=== PATIENT | male | born 1955 | race Caucasian/White ===

== ENCOUNTER 2022-03-14 09:00 | Outpatient (RCR) | payer MEDICARE, BC, SELFPAY | END 2022-03-15 23:59 | disposition home or self-care (01) | LOC: CR 09:00 | PROVIDERS: PCP Family Medicine; Visit Provider Internal Medicine Cardiovascular Disease | DX: Z51.89 Encounter for other specified aftercare (principal); I25.10 Atherosclerotic heart disease of native coronary artery without angina pectoris; Z95.1 Presence of aortocoronary bypass graft | CPT/HCPCS: S9472 ==

== ENCOUNTER 2022-04-11 09:00 | Outpatient (RCR) | payer MEDICARE, BC, SELFPAY | END 2022-04-15 23:59 | disposition home or self-care (01) | LOC: CR 09:00 | PROVIDERS: PCP Family Medicine; Visit Provider Internal Medicine Cardiovascular Disease | DX: Z51.89 Encounter for other specified aftercare (principal); I25.10 Atherosclerotic heart disease of native coronary artery without angina pectoris; Z95.1 Presence of aortocoronary bypass graft | CPT/HCPCS: S9472 ==

== ENCOUNTER 2022-05-14 09:00 | Outpatient (RCR) | payer MEDICARE, BC, SELFPAY | END 2022-05-15 23:59 | disposition home or self-care (01) | LOC: CR 09:00 | PROVIDERS: PCP Family Medicine; Visit Provider Internal Medicine Cardiovascular Disease | DX: Z51.89 Encounter for other specified aftercare (principal); I25.10 Atherosclerotic heart disease of native coronary artery without angina pectoris; Z95.1 Presence of aortocoronary bypass graft | CPT/HCPCS: S9472 ==

== ENCOUNTER 2022-06-09 09:00 | Outpatient (RCR) | payer MEDICARE, BC, SELFPAY | END 2022-06-15 23:59 | disposition home or self-care (01) | LOC: CR 09:00 | PROVIDERS: PCP Family Medicine; Visit Provider Internal Medicine Cardiovascular Disease | DX: Z51.89 Encounter for other specified aftercare (principal); I25.10 Atherosclerotic heart disease of native coronary artery without angina pectoris; Z95.1 Presence of aortocoronary bypass graft | CPT/HCPCS: S9472 ==

== ENCOUNTER 2022-07-15 09:00 | Outpatient (RCR) | payer SELFPAY ==
[2022-06-17 09:26] VITALS: BP 168/92; PULSE 96
[2022-06-19 09:21] VITALS: BP 144/87; PULSE 93
[2022-06-24 09:28] VITALS: BP 147/81; PULSE 85
[2022-06-26 09:04] VITALS: BP 148/87; PULSE 85
[2022-07-01 09:01] VITALS: BP 148/86; PULSE 85
[2022-07-03 09:02] VITALS: BP 157/86; PULSE 82
[2022-07-08 08:53] VITALS: BP 156/85; PULSE 83
[2022-07-10 09:05] VITALS: BP 144/81; PULSE 79
[2022-07-15 09:01] VITALS: BP 134/83; PULSE 97
== END 2022-07-16 23:59 | disposition home or self-care (01) ==
LOC: CR 09:00
PROVIDERS: PCP Family Medicine; Visit Provider Internal Medicine Cardiovascular Disease
DX: R69 Illness, unspecified (principal)

== ENCOUNTER 2022-08-14 08:57 | Outpatient (RCR) | payer SELFPAY ==
[2022-07-17 00:01] VITALS: BP 134/83; PULSE 97
[2022-07-17 09:00] VITALS: BP 133/88; PULSE 100
[2022-07-22 08:46] VITALS: BP 151/87; PULSE 85
[2022-07-24 08:49] VITALS: BP 148/88; PULSE 94
[2022-07-29 08:42] VITALS: BP 146/85; PULSE 87
[2022-07-31 08:47] VITALS: BP 149/80; PULSE 82
[2022-08-05 09:00] VITALS: BP 155/87; PULSE 78
--- OUTSIDE RECORDS SUMMARY | 2022-08-05 09:02 | XMS_ITS | Encounter Summary ---
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, Danny Antonio MD [facility] Drill Rig Operator Rehab [facility] [place] [address] [place] [address] Fax: Referral ID Status Reason Start Date Expiration Visits Visits Date Requested Authorized [id number] Authorized Consult, 01/31/2022 01/31/2023 100 100 Test & Treat Encounter Details Date Type Department Care Team Description 05/06/2022 Office Visit Speech Therapy at [facility] Voc al cord paralysis [facility] POWER EQUIPMENT TECHNOLOGY INSTRUCTOR [facility] [address] [place], [place] PHYSICAL MEDICINE & [id number] REHABILITAT [phone] [place] [address] Social History Tobacco Use Types Packs/Day Years Used Date Former Smoker Cigarettes Smokeless Tobacco: Never Used Comments: quit at age 17 Alcohol Use Standard Drinks/Week Comments Yes 2 (1 standard drink = 0.6 oz pure alcoho l) beer on weekends Alcohol Habits Answer Date Recorded How often do you have a drink containing alcohol? Not asked How many drinks containing alcohol do you have on a Not aske d typical day when you are drinking? How often do you have six or more drinks on one Not asked occasion? Comment: beer on weekends 03/09/2017 Sex Assigned at Date Recorded Not on file documented as of this encounter Progress Notes Cary Lam, POWER EQUIPMENT TECHNOLOGY INSTRUCTOR - 05/06/2022 11:00 AM EDT Speech-Language Pathology Treatment Session 05/06/2022 Total Treatment Time: 55 minutes Total Timed Code Treatment: 0 minutes S: Pt reported work is busy. Pt continues to whisper. He stopped going to cardio PT for the week his co-worker is gone. Pt struggles to answer the phone still. DIscussed options for answering the phone, or having anotherperson record a message for the office offering up e- mail communication. Pt has accidental voicing but cannot predict it. Order for open MRI corrected after call revealed they had not received an order. Lots of direct education to patient about whisper avoidance, reason for MRI. O: Pt seen for treatment of dysphonia. Pt will demonstrate understanding and ability to use techniques to achieve voicing of 1-5 seconds induration. Ongoing attempts at voicing. Patient continues to whisper. Education provided re: achieving vocal voicing. Patient most comfortable with lower pitch voice - says he can feel the vibration. Overall, this voicing still lower than optimal but a good start for the patient to try to come away from whispering. Pt will match voicing with right head turn to voicing at midline 8/10 trials per session. Right head turn variable in its efficiency. Pt notes subtle differences in right vs. Left head turn,head extended vs head tucked. Discussed the functional implications of physical position when patient is interacting with others in his environment. Pt will try to reduce whispering in functional speech contexts 80% of the time.Education ongoing. Pthas difficulty avoiding whispering. Counted 1-10, saying single words with subtle voicing/ whisper. Pt understands difference between whisper and voice. Able to use voice as described above in single words > phrases > reading aloud. Needs cues for very slow, thoughtful speech given tendency to switch back to whisper. Pt will demonstrate understanding and compliance with a daily home program. No dizziness. Pt understands I want him to play with his voice at home as instructed above. We discussed concerns about the combination of right vocal cord impairment with right lingual impairment and requested patient get the MRI completed to help us understand this situation better and help guide his treatment. Pt with good understanding of recommendations offered today. A: Pt with good response to treatment. Improved understanding of treatment goals and approximation of voicing vs. Whisper. P: Pt to practice intentionally turning on his voice. Pt to return for 2-4 additional visits. Pt indicated agreement with treatment plan. Cary Lam MS CCC-POWER EQUIPMENT TECHNOLOGY INSTRUCTOR Speech-Language Pathologist [facility] Pager # [phone] documented in this encounter Plan of Treatment Upcoming Encounters Date Type Specialty Care Team Description 03/25/2022 Anesthesia Event Surgery Catrachita Baez MD [facility] ANESTHESIOLOGY [place], [place] [address] (Wo rk) 12/15/2022 Office Visit Cardiology Damián Hart MD [facility] [place], [place] [address] (Wo rk) 03/25/2050 Hospital Encounter Surgery Citlalli Richardson MD Vocal cord paralysis [facility] OTOLARYNGOLOGY [place], [place] [address] (Wo rk) documented as of this encounter Visit Diagnoses Diagnosis Vocal cord paralysis Paralysis of vocal cords or larynx, unsp ecified Vocal cord paralysis Paralysis of vocal cords or larynx, unsp ecified documented in this encounter Care Teams Swage Tender Relationship Specialty Start Date End Date Vladimir Muñoz DO PCP - General Family Medicine 01/19/18 [address] [place] [address] documented as of this encounter
--- OUTSIDE RECORDS SUMMARY | 2022-08-05 09:02 | XMS_ITS | Encounter Summary ---
:1955 Author Organization [facility] [place] [address] Care Team Providers Name Role Phone Vladimir Muñoz DO Primary Care Provider Encounter Details Date Type Department Care Team Description 06/16/2022 [facility] [address] [place] [address] [place] [address] [place] [address] (Wo rk) Social History Tobacco Use Types Packs/Day Years [...] on file documented as of this encounter Miscellaneous Notes Telephone Encounter - Sari Renteria - 06/16/2022 8:35 AM EDT Patient called needing refill Amlodipine 10mg 1 x daily. 90 tabs [facility] [place] Call back for questions [phone] documented in this encounter Plan of Treatment Upcoming Encounters Date Type Specialty Care Team Description 03/25/2022 Anesthesia Event Surgery Catrachita Baez MD [facility] ANESTHESIOLOGY [place], [place] [address] (Wo rk) 12/15/2022 Office Visit Cardiology Damián Hart MD [facility] [place], [place] [address] (Wo rk) 03/25/2050 Hospital Encounter Surgery Citlalli Richardson MD Vocal cord paralysis [facility] OTOLARYNGOLOGY [place], [place] [address] (Wo rk) documented as of this encounter Visit Diagnoses Diagnosis Vocal cord paralysis Paralysis of vocal cords or larynx, unsp ecified Essential hypertension Unspecified essential hypertension documented in this encounter Care Teams Special Trackwork Blacksmith Relationship Specialty Start Date End Date Vladimir Muñoz DO PCP - General Family Medicine 01/19/18 [address] [place] [address] documented as of this encounter
--- OUTSIDE RECORDS SUMMARY | 2022-08-05 09:02 | XMS_ITS | Clinical Summary ---
:1955 Author Organization [facility] [place] [address] Care Team Providers Name Role Phone Vladimir Muñoz DO Primary Care Provider Allergies Active Allergy Reactions Severity Noted Date Comments Albumin Products Anaphylaxis High 01/21/2022 Ceftriaxone 04/09/2022 Allergy testing negative on 05/06/22 - OK to try again under cli nical observation Lisinopril Anaphylaxis, Other (See High 01/01/2022 Ear buzzing, nausea, Comments) itching, tongue swelling Vecuronium 04/09/2022 Allergy testing negative on 05/06/22 - OK to try again under cli nical observation Medications Medication Sig Dispensed Refills Start Date End Date Status aspirin 81 mg Tablet, Take 162 mg by 0 Active Delayed Release (E.C.) mouth daily. Increased by neurologist metFORMIN (GLUCOPHAGE) Take 1,000 mg by 0 Active 1,000 mg Tablet mouth 2 times daily (with meals). amoxicillin (AMOXIL) TAKE 4 CAPSULES BY 0 10/31/2019 Active 500 mg Capsule MOUTH 1 HOUR BEFORE APPOINTMENT nitroGLYcerin Place 1 tablet 25 tablet 12 02/13/2020 Active (Nitrostat) 0.4 mg under the tongue Tablet, every 5 minutes x3 SublingualIndications: as needed for ASCVD chest pain- (arteriosclerotic cardiovascular disease) glipiZIDE XL Take 2.5 mg by 0 12/17/2021 A ctive (Glucotrol XL) 2.5 mg mouth daily. Tablet Extended Rel 24 hr omeprazole (PriLOSEC) Take 40 mg by 0 12/10/2021 Active 40 mg Capsule, Delayed mouth daily. Release(E.C.) acetaminophen Take 2 tablets by 0 01/31/2022 Active (Tylenol) 500 mg mouth every 6 Tablet hours as needed for Pain. metoprolol tartrate Take 50 mg by 0 02/27/2022 Active (Lopressor) 50 mg mouth 2 times Tablet daily (with meals). Take with food. mecobalamin, vitamin Take 1 tablet by 0 Active B12, (B12 Active) mouth daily. 1,000 mcg Tablet, Chewable amLODIPine (Norvasc) Take 1 tablet by 90 tablet 3 06/16/2022 Active 10 mg mouth daily. TabletIndications: Essential hypertension atorvastatin (Lipitor) take 1 tablet by 90 tablet 3 06/30/2022 Active 80 mg mouth once daily TabletIndications: ASCVD (arteriosclerotic cardiovascular disease) Active Problems Problem Noted Date Vocal cord paralysis 02/20/2022 Acquired deformity of foot 03/19/2020 Plantar fasciitis of left foot 03/19/2020 ASCVD (arteriosclerotic cardiovascular disease) 2015 Overview: MIBI 2008: 10:30, 1:30 Stage IV [place] 12 METS. Impression: small area of ischemia at high work level 2016: worse symptoms-> cath: mild LAD, 9 9% mid CCX, 60% OM1, 95% prox RCA-> KAROLYN, 50% distal RCA 02/2017: increase dyspnea -> abnormal ex ercise nuclear stress test -> cath: angioplasty of proximal RCA for in-stent restenosis 05/2017- worse symptoms- repeat cath- mid CCX occluded, distal small vessel, 60% RCA- IFR negative Trial of isosorbide- stopped due to head ache 11/2017: MIBI no ischemia at ST III 12/2021 cath (dyspnea/angina): COLLAR PADDER BLINDSTITCH mRCA, mLAD 55, D1 60, mCx COLLAR PADDER BLINDSTITCH, pOM1 70 01/2022: CABG x 3 (GALICIA->LAD, SVG->rPDA, SVG->OM1). Preserved global/regional LV function Last Assessment & Plan: No angina per history since CABG - Anti-Thrombosis: asa 81 - Anti- Lipemic: lipitor 80 - Anti- Anginals: GTN PRN, norvasc 10, lopressor 50 bid Diabetes mellitus Hyperlipidemia Hyperpiesia Last Assessment & Plan: Formatting of th is note might be different from the original. Well controlled on current regimen - norvasc 10 - contingency to switch metoprolol back to coreg Resolved Problems Problem Noted Date Resolved Date CAD (coronary artery disease) 01/18/2022 04/29/2022 Metatarsalgia of right foot 03/19/2020 08/20/2020 CAD (coronary artery disease) 03/10/2017 11/28/2019 Encounters Date Type Specialty Care Team Description 06/30/2022 Telephone Otolaryngology Gabrielle Hinkle 06/26/2022 Refill Cardiology Damián Hart Medication Refill 06/16/2022 Refill Cardiology Damián Hart MD 06/11/2022 Office Visit Speech Therapy [facility] Vocal cor d paralysis M, EVIDENCE SPECIALIST 06/10/2022 Refill Cardiology Damián Hart Medication Refill 05/12/2022 Ancillary Procedure Radiology Citlalli Richardson MD 05/06/2022 Office Visit Allergy Salina Barreto MD Drug aller gy; Anaphylaxis, nelson bsequent encounter 05/06/2022 Office Visit Speech Therapy [facility] Lam Vocal cor d paralysis M, EVIDENCE SPECIALIST 05/06/2022 Notes Only Allergy Ayana Giordano RN 05/06/2022 Notes Only Allergy Ayana Giordano RN 05/06/2022 Orders Only Allergy Salina Barreto MD Anaphylaxi s, subsequent enco unter from Last 3 Months Immunizations Name Administration Dates Next Due Influenza Vaccine, Whole 09/16/2009 Family History Medical History Relation Comments Colorectal Cancer Father No Known Problems Mother Breast Cancer Sister Relation Status Comments Father Mother Alive Sister Alive Social History Tobacco Use Types Packs/Day Years [...] Assigned at Date Recorded Not on file Last Filed Vital Signs Vital Sign Reading Time Taken Comments Blood Pressure 120/62 05/06/2022 1:16 PM EDT Pulse 81 05/06/2022 1:16 PM EDT Temperature 36.6 ??C (97.9 ??F) 01/31/2022 11:40 AM EDT Respiratory Rate 19 01/31/2022 11:40 AM EDT Oxygen Saturation 97% 05/06/2022 1:16 PM EDT Inhaled Oxygen Concentration - - Weight 88.5 kg (195 lb) 05/06/2022 1:16 PM EDT Height 182.9 cm (6') 04/29/2022 3:10 PM EDT Body Mass Index 26.45 04/29/2022 3:10 PM EDT Plan of Treatment Upcoming Encounters Date Type Specialty Care Team Description 03/25/2022 Anesthesia Event Surgery Catrachita Baez MD [facility] ANESTHESIOLOGY [place], [place] [address] (Wo rk) 12/15/2022 Office Visit Cardiology Damián aHrt MD [facility] [place], [place] [address] (Wo rk) 03/25/2050 Hospital Encounter Surgery Citlalli Richardson MD Vocal cord paralysis [facility] OTOLARYNGOLOGY [place], [place] [address] (Wo rk) Health Maintenance Due Date Last Done Comments Covid-19 Vaccine (#1) 1959 Pneumoccocal Vaccine: 65+ (1 - 02/02/1960 PCV) DM Opthalmology Exam 02/02/1964 DM Urine Microalbumin yearly 02/02/1964 Hepatitis C Screening 02/02/1972 Tdap adult 1973 Tetanus vaccine 1973 Colonoscopy 1999 Zoster vaccine (1 of 2) 02/02/2004 Advance Directive 2009 AAA Screen 2019 DM Hemoglobin A1c 6 month 01/22/2021 07/25/2020 Influenza (Flu) vaccine (1 of - 07/17/2022 09/16/2009 Influenza standard series) DM Creatinine yearly 01/27/2023 01/27/2022, 01/26/2022, 01/25/2022, Additional history exists Medical Devices Implanted Type Area Lead Engineer Device Shelf Model / Identifier Expiration Serial / Date Lot Cable,Cut,Edg,Blnt,Ss,3tpr ([id number]) - [id number] IMPLANTS N/A: [employer] 06/13/2026 [id number] / Implanted: Qty: 1 on 01/21/2022 by Danny Antonio MD at [facility] [employer] - / [id number] Procedures Procedure Name Priority Date/Time Associated Diagnosis Comme nts FILM LIBRARY Routine 05/12/2022 12:00 AM Results for this STORAGE ONLY MR EDT procedure ar e in SPINE the results section. ALLERGY SCAN 05/06/2022 12:00 AM Results for this EDT procedure are i n the results section. from Last 3 Months Results Film Library- Storage Only MR Spine (05/12/2022 12:00 AM EDT) Specimen (Source) Anatomical Location Collection Method / Collectio n Time Received Time / Laterality Volume Narrative [facility] - 06/24/2022 11:15 AM EDT This exam is auto-finalizing. It's purpo se is for storage only. Citlalli Richardson MD IMG FILM LIBRARY ORDERABLES Performing Organization Address City/State/ZIP Code Phon e Number [place], [place] SCAN DOC: ALLERGY (05/06/2022 12:00 AM EDT) Narrative 05/06/2022 12:00 AM EDT This result has an attachment that is no t available. Ordered by an unspecified provider. Scanning Provider MEDIA MGR SCAN EXT ORDR/RSLT from Last 3 Months Insurance Payer Benefit Plan / Subscriber ID Effective Phone Address T ype Group Dates MEDICARE MEDICARE PART A [id number] 2018-Prese [phone] [place] [phone] ANTH MEDICARE ANTHEM MEDICARE [id number] 2019-Prese [address] SUPPLEMENT SUPPLEMENT nt SUMEET [place] [address] [phone] (Work) Advance Directives Latest Code Status on File Code Status Date Activated Date Inactivated Comments Attempt Cardiopulmonary Resuscitation - 01/21/2022 12:28 PM 022 5:33 PM Inpatient Code Status decision made by: Patient Full Code 01/13/2022 10:44 AM 01/21/2022 5:49 AM Does patient have capacity to make decision: Yes Attempt Cardiopulmonary Resuscitation - 01/13/2022 9:07 AM 022 10:44 AM Inpatient Code Status decision made by: Patient Full Code 03/10/2017 11:34 AM 03/11/2017 12:35 PM Does patient have capacity to make decision: Yes Full Code 03/10/2017 9:35 AM 03/10/2017 11:34 AM Does patient have capacity to make decision: Yes Care Teams Bridge Painter Relationship Specialty Start Date End Date Vladimir Muñoz, DO PCP - General Family Medicine 01/19/18 [address] [place] [address]
--- OUTSIDE RECORDS SUMMARY | 2022-08-05 09:02 | XMS_ITS | Encounter Summary ---
:1955 Author Organization [facility] [place] [address] Care Team Providers Name Role Phone ToniVladimir mullins Rohan LOJA Primary Care Provider Encounter Details Date Type Department Care Team Description 05/12/2022 Ancillary Procedure Radiology Library at [facility] dorothea Hyatt MD [facility] [place] [address] [place] [address] [phone] (Wo rk) Social History Tobacco Use Types [...] on file documented as of this encounter Plan of Treatment Upcoming Encounters Date Type Specialty Care Team Description 03/25/2022 Anesthesia Event Surgery Catrachita Baez MD [facility] DR ANESTHESIOLOGY [place], [place] [address] (Wo rk) 12/15/2022 Office Visit Cardiology Damián Hart MD [facility] [place] [address] [place] [address] (Wo rk) 03/25/2050 Hospital Encounter Surgery Citlalli Richardson MD Vocal cord paralysis [facility] ER OTOLARYNGOLOGY [place], [place] [address] (Wo rk) documented as of this encounter Procedures Procedure Name Priority Date/Time Associated Diagnosis Comme nts FILM LIBRARY Routine 05/12/2022 12:00 AM Results for this STORAGE ONLY MR EDT procedure ar e in SPINE the results section. documented in this encounter Results Film Library- Storage Only MR Spine (05/12/2022 12:00 AM EDT) Specimen (Source) Anatomical Location Collection Method / Collectio n Time Received Time / Laterality Volume Narrative [facility] - 06/24/2022 11:15 AM EDT This exam is auto-finalizing. It's purpo se is for storage only. Citlalli Richardson MD IMG FILM LIBRARY ORDERABLES Performing Organization Address City/State/ZIP Code Phon e Number [facility] [place], [place] documented in this encounter Visit Diagnoses Not on filedocumented in this encounter Care Teams Core Piler Relationship Specialty Start Date End Date Vladimir Muñoz DO PCP - General Family Medicine 01/19/18 [address] [place] [address] documented as of this encounter
--- OUTSIDE RECORDS SUMMARY | 2022-08-05 09:02 | XMS_ITS | Encounter Summary ---
:1955 Author Organization [facility] [place] [address] Care Team Providers Name Role Phone ToniVladimir DO Primary Care Provider Reason for Visit Reason Comments Coronary Artery Disease CABG x 3 on 01/21/22 Encounter Details Date Type Department Care Team Description 04/29/2022 [facility] (ar teriosclerotic cardiovascular disease); Sami CORADO Hyperpiesia [address] [place] [address] Dr Gallardo, [place], [place] [phone] Social History Tobacco Use Types Packs/Day Years [...] on file documented as of this encounter Last Filed Vital Signs Vital Sign Reading Time Taken Comments Blood Pressure 138/81 04/29/2022 3:10 PM EDT Pulse 79 04/29/2022 3:10 PM EDT per ekg Temperature - - Respiratory Rate - - Oxygen Saturation - - Inhaled Oxygen Concentration - - Weight 91.2 kg (201 lb) 04/29/2022 3:10 PM EDT Height 182.9 cm (6') 04/29/2022 3:10 PM EDT Body Mass Index 27.26 04/29/2022 3:10 PM EDT documented in this encounter Progress Notes Damián Hart MD - 04/29/2022 3:00 PM EDT Images from the original note were not included. Subjective: Patient ID: Burton Mcnair Jr. is a 67 y.o. male who presents on follow-up for: Chief Complaint Patient presents with ??? Coronary Artery Disease CABG x 3 on 01/21/22 HPI Last seen by me 12/2021, at which time he was referred for cardiac cath in setting of dyspnea/angina reminiscent of how he felt prior to revascularization in the past. The cath demosntrated multivessel disease, and given the prior in- stent restenoses, decision was made to proceed with open revascularization. Course was complicated by vocal cord paralysis. Since then, he has been doing well. Participating at cardiac rehab and doing reasonable activity at home without angina nor untoward dyspnea. 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 bp well controlled at home Reports no clicking nor movement of the sternotomy site Current Outpatient Medications: ??? mecobalamin, vitamin B12, (B12 Active) 1,000 mcg Tablet, Chewable, Take 1 tablet by mouth daily., Disp: , Rfl: ??? metoprolol tartrate (Lopressor) 50 mg Tablet, Take 50 mg by mouth 2 times daily (with meals). Take with food., Disp: , Rfl: ??? acetaminophen (Tylenol) 500 mg Tablet, Take 2 tablets by mouth every 6 hours as needed for Pain., Disp: , Rfl: ??? glipiZIDE XL (Glucotrol XL) 2.5 mg Tablet Extended Rel 24 hr, Take 2.5 mg by mouth daily., Disp:, Rfl: ??? omeprazole (PriLOSEC) 40 mg Capsule, Delayed Release(E.C.), Take 40 mg by mouth daily., Disp: , Rfl: ??? amLODIPine (Norvasc) 10 mg Tablet, take 1 tablet by mouth daily, Disp: 90 tablet, Rfl: 3 ??? atorvastatin (Lipitor) 80 mg Tablet, take 1 tablet by mouth once daily, Disp: 90 tablet, Rfl: 3 ??? amoxicillin (AMOXIL) 500 mg Capsule, TAKE 4 CAPSULES BY MOUTH 1 HOUR BEFORE APPOINTMENT, Disp: ,Rfl: ??? aspirin 81 mg Tablet, Delayed Release (E.C.), Take 162 mg by mouth daily. Increased by neurologist, Disp: , Rfl: ??? metFORMIN (GLUCOPHAGE) 1,000 mg Tablet, Take 1,000 mg by mouth 2 times daily (with meals)., Disp: , Rfl: ??? nitroGLYcerin (Nitrostat) 0.4 mg Tablet, Sublingual, Place 1 tablet under the tongue every 5 minutes x3 as needed for chest pain- (Patient not taking: Reported on 04/29/2022), Disp: 25 tablet, Rfl: 12 Patient Active Problem List Diagnosis ??? Vocal cord paralysis ??? Acquired deformity of foot ??? Plantar fasciitis of left foot ??? Diabetes mellitus ??? Hyperlipidemia ??? Hyperpiesia ??? ASCVD (arteriosclerotic cardiovascular disease) MIBI 2008: 10:30, 1:30 Stage IV [place] 12 METS. Impression: small area of ischemia at high work level 2016: worse symptoms-> cath: mild LAD, 99% mid CCX, 60% OM1, 95% prox RCA-> KAROLYN, 50% distal RCA 02/2017: increase dyspnea -> abnormal exercise nuclear stress test -> cath: angioplasty of proximal RCA for in-stent restenosis 05/2017- worse symptoms- repeat cath- mid CCX occluded, distal small vessel, 60% RCA- IFR negative Trial of isosorbide- stopped due to headache 11/2017: MIBI no ischemia at ST III 12/2021 cath (dyspnea/angina): CAFE ATTENDANT mRCA, mLAD 55, D1 60, mCx CAFE ATTENDANT, pOM1 70 01/2022: CABG x 3 (GALICIA->LAD, SVG->rPDA, SVG->OM1). Preserved global/regional LV function Objective: BP 138/81 (BP Location (NBP): Left arm, Patient Position: Sitting, BP Cuff Sizes: Adult (25-34 cm)) Pulse 79 Comment: per ekg Ht 182.9 cm (6') Wt 91.2 kg (201 lb) BMI 27.26 kg/m?? Gen: pleasant male in NAD Cor: rrr, s1/s2 of nl character and amplitude, no m/r/g. Estimated RAP not elevated. Carotids with normal upstroke without bruit. Pulm: CTAB. Normal diaphragmatic movement without use of accessory muscles EKG: nsr, nsttw Assessment and Plan: ASCVD (arteriosclerotic cardiovascular disease) No angina per history since CABG - Anti-Thrombosis: asa 81 - Anti- Lipemic: lipitor 80 - Anti- Anginals: GTN PRN, norvasc 10, lopressor 50 bid Hyperpiesia Well controlled on current regimen - norvasc 10 - contingency to switch metoprolol back to coreg RTC 6 months Damián Hart MD documented in this encounter Miscellaneous Notes Assessment & Plan Note - Damián Hart MD - 04/29/2022 4:39 PM EDTAssociated Problem(s): Hyperpiesia Well controlled on current regimen - norvasc 10 - contingency to switch metoprolol back to coreg Assessment & Plan Note - Damián Hart MD - 04/29/2022 4:38 PM EDTAssociated Problem(s): ASCVD (arteriosclerotic cardiovascular disease) No angina per history since CABG - Anti-Thrombosis: asa 81 - Anti- Lipemic: lipitor 80 - Anti- Anginals: GTN PRN, norvasc 10, lopressor 50 bid documented in this encounter Plan of Treatment Upcoming Encounters Date Type Specialty Care Team Description 03/25/2022 Anesthesia Event Surgery Catrachita Baez MD [facility] ANESTHESIOLOGY [place], [place] [address] (Wo rk) 12/15/2022 Office Visit Cardiology Damián Hart MD [facility] [place], [place] [address] (Wo rk) 03/25/2050 Hospital Encounter Surgery Citlalli Richardson MD Vocal cord paralysis [facility] OTOLARYNGOLOGY [place], [place] [address] (Wo rk) documented as of this encounter Visit Diagnoses Diagnosis Vocal cord paralysis Paralysis of vocal cords or larynx, unsp ecified ASCVD (arteriosclerotic cardiovascular d isease) Unspecified cardiovascular disease Hyperpiesia Unspecified essential hypertension documented in this encounter Care Teams Bulldogger Relationship Specialty Start Date End Date Vladimir Muñoz DO PCP - General Family Medicine 01/19/18 [address] [place] [address] documented as of this encounter
--- OUTSIDE RECORDS SUMMARY | 2022-08-05 09:02 | XMS_ITS | Encounter Summary ---
:1955 Author Organization [facility] Address [facility] [address] [place] [address] Care Team Providers Name Role Phone ToniVladimir costa Rohan LOJA Primary Care Provider Reason for Visit Reason Comments Allergy Testing Consultation (Urgent) - Closed Specialty Diagnoses / Procedures Referred By Contact Refer red To Contact Allergy Diagnoses follow up inpatient consult allergic reaction skin test for - ceftriaxone, vecuronium and human serum albumin Danny Antonio MD Reigh, Erin L, MD [facility] CARDIOTHORACIC SURGE ALLERGY DEPT [address] [address] Fax: Referral ID Status Reason Start Date Expiration Date Visits V isits Requested Authorized [id number] Closed Consult, 01/31/2022 01/31/2023 1 1 Test & Treat Encounter Details Date Type Department Care Team Description 05/06/2022 Office [place] [facility] [place] Barreto MD Drug allergy; [facility] Meagan phylaxis, subsequent encounter Drive [address] [place], [place] ALLERGY DEPT [id number] [place] [address] [phone] Social History Tobacco Use Types Packs/Day Years [...] Pulse 81 05/06/2022 1:16 PM EDT Temperature - - Respiratory Rate - - Oxygen Saturation 97% 05/06/2022 1:16 PM EDT Inhaled Oxygen Concentration - - Weight 88.5 kg (195 lb) 05/06/2022 1:16 PM EDT Height - - Body Mass Index 26.45 04/29/2022 3:10 PM EDT documented in this encounter Progress Ayana Dela Cruz RN - 05/06/2022 1:00 PM EDT Patient in clinic for skin testing. Prior to skin test assessment lungs clear to ausculation, HR WNL, no rash, hives noted. Patient denies use of antihistamine in last 7 days. Procedure explained to patient. No signs and symptoms of allergic reaction present. SPT placed by nurse at 1356. Post 15 minutes observation. Results read by provider. Proceeded to next dose IDT set placed by nurse at 1417. Post 15 minutes observation. Results read by provider. Proceeded tonext dose Vss, lungs clear to ausculation, oral pharynex WNL. No signs and symptoms of allergic reaction present. Patient D/C from nursing observation at 1434. Waiting for provider. Vecuronium bromide: 10 mg (1mg/mL when reconstituted with 10 mL of sterile water) Lot number: [id number] Expir: 06/14/2022 (FS 0.05mL for SPT and 0.2 mL for mixing to make 1:10 dilution) Ceftriaxone: 1 gram(reconstituted with 2.1 mL of sterile water Lot number: [id number] Expir: 10/15/2024 Salina Barreto MD - 05/06/2022 1:00 PM EDT CC: allergy testing HPI: Burton Mcnair Jr. is a 67 y.o. male with PMH DM, CAD s/p CABG on 01/21/22, HLD presenting for follow up allergy testing. Please see prior note for detailed H&P 01/21/22. Spoke with patient about allergy testing after arrival to clinic. When I met him in the hospital he was intubated after having an anaphylactic reaction. We reviewed that I am most suspicious that albumin was the trigger for the reaction given the proximity of when he received it and when his symptoms began. However, delayed reactions to OR medications have been reported and so it is still possible that he reacted to something he received in the OR such as ceftriaxone or vecuronium, which would be the most likely of these if that were the case. Reviewed that allergy testing does expose him to a small amount of the drug and it is possible to have an allergic reaction to allergy testing. This could include the same symptoms he had before with hypotension, angioedema, hives, etc. I cannot rule out that his symptoms would be equally as severe ifhe did react to the allergy testing, though I did explain to him that it is a very small exposure and most patients tolerate allergy testing. If he did experience a reaction we could treat him quickly in the clinic, so we would expect a milder clinical course if he did react, but severe reactions cannot be ruled out. After discussion, we decided that we would only test him to ceftriaxone and vecuronium and leave human serum albumin on his allergy list. Since we are most suspicious of HSA, not testing him to it would be less likely to trigger a reaction during testing. If we focused on the 2 things that we think are less likely to have been the trigger and we can simply rule these out as triggers and leave the albumin on the list. Patient amenable with this plan we will focus on testing to ceftriaxone and vecuronium today. I communicated directly with our nurse that we would no longer be testing to albumin, onlyceftriaxone and vecuronium today. SKIN TESTING PRICK: Histamine 9, 12 Saline (-) Ceftriaxone 2mg/mL (-) Vecuronium 1mg/mL (full strength) (-) INTRADERMAL #1 Saline (-) Ceftriaxone 2mg/mL (-) Vecuronium 1:10 (-) ASSESSMENT/PLAN: 67 y.o. male with anaphylaxis post-op, most likely due to human serum albumin, with negative testingto other common triggers ceftriaxone and vecuronium. Allergy testing was negative to ceftriaxone and vecuronium. Anaphylaxis: Though no allergy test is perfect, the negative testing today is reassuring. Prior to testing, thesewere much less likely to be the trigger given that the albumin was more temporally associated with his reaction. The negative testing reinforces that. - notably, the tryptase did normalize after the reaction, from 12.5 to 4.3, making mastocytosis unlikely. Counseled that it would be okay to receive ceftriaxone or vecuronium again in the future with monitoring. Because the predictive value of this testing is unknown, monitoring for 60 min after receiving these is recommended just in case our testing is a false negative. However, I think this is unlikely enough that these drugs, which are often important treatment options, can be reintroduced. He will continue to avoid albumin going forward. Most likely, something within it like caprylate waswhat triggered his reaction. RTO prn Salina Barreto MD documented in this encounter Plan of Treatment Upcoming Encounters Date Type Specialty Care Team Description 03/25/2022 Anesthesia Event Surgery Catrachita Baez MD [facility] ANESTHESIOLOGY [place], [place] [address] ([facility]) 12/15/2022 Office Visit Cardiology Damián Hart MD [facility] [place], [place] [address] ( rk) 03/25/2050 Hospital Encounter Surgery Citlalli Richardson MD Vocal cord paralysis [facility] OTOLARYNGOLOGY [place], [place] [address] ( rk) documented as of this encounter Procedures Procedure Name Priority Date/Time Associated Diagnosis Comme nts ALLERGY SCAN 05/06/2022 12:00 AM Results for this EDT procedure are i n the results section . documented in this encounter Results SCAN DOC: ALLERGY (05/06/2022 12:00 AM EDT) Narrative 05/06/2022 12:00 AM EDT This result has an attachment that is no t available. Ordered by an unspecified provider. Scanning Provider MEDIA MGR SCAN EXT ORDR/RSLT documented in this encounter Visit Diagnoses Diagnosis Vocal cord paralysis Paralysis of vocal cords or larynx, unsp ecified Drug allergy Other drug allergy Anaphylaxis, subsequent encounter documented in this encounter Care Teams Clinical Leader Relationship Specialty Start Date End Date Vladimir Muñoz DO PCP - General Family Medicine 01/19/18 [address] [place] [address] documented as of this encounter
--- OUTSIDE RECORDS SUMMARY | 2022-08-05 09:02 | XMS_ITS | Encounter Summary ---
:1955 Author Organization [facility] [address] Care Team Providers Name Role Phone Toni Vladimir Rohan LOJA Primary Care Provider Reason for Visit Reason Comments Medication Refill Encounter Details Date Type Department Care Team Description 06/10/2022 Refill Cardiology at [facility] Damián Hart MD Medication Refill [address] [place] [address] [place] [address] [phone] (Wo rk) Social History Tobacco Use Types [...] MD [facility] DR ANESTHESIOLOGY [place], [place] [address] (Wo rk) 12/15/2022 Office Visit Cardiology Damián Hart MD [facility] er [place], [place] [address] ( rk) 03/25/2050 Hospital Encounter Surgery Citlalli Richardson MD Vocal cord paralysis [facility] OTOLARYNGOLOGY [place], [place] [address] ( rk) documented as of this encounter Visit Diagnoses Diagnosis Vocal cord paralysis Paralysis of vocal cords or larynx, unsp ecified Essential hypertension Unspecified essential hypertension documented in this encounter Care Teams Custodial Officer Relationship Specialty Start Date End Date Vladimir Muñoz DO PCP - General Family Medicine 01/19/18 [address] [place] [address] documented as of this encounter
--- OUTSIDE RECORDS SUMMARY | 2022-08-05 09:02 | XMS_ITS | Encounter Summary ---
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, Danny Antonio MD [facility] Imaging Science Professor Rehab [facility] [place] [address] [place] [address] Fax: Referral ID Status Reason Start Date Expiration Visits Visits Date Requested Authorized [id number] Authorized Consult, 01/31/2022 01/31/2023 100 100 Test & Treat Encounter Details Date Type Department Care Team Description 06/11/2022 Office Visit Speech Therapy at [facility] Voc al cord paralysis [facility] [address] [place], [place] PHYSICAL MEDICINE & [phone] REHABILITAT [phone] [place] [address] Social History Tobacco Use Types Packs/Day Years [...] of this encounter Progress Notes Cary Lam, [facility] - 06/11/2022 2:00 PM EDT Speech-Language Pathology Treatment Session 06/11/2022 Total Treatment Time: 55 minutes Total Timed Code Treatment: 0 minutes S: Pt reported he is good except for his knees. He has symptoms that are consistent with his h/o stenosis. His heart is good. He is now doing strenuous walking without losing his breath. People say his voice is stronger. Whisper is his default. Mother cannot understand him on the phone. He is able to carry on a conversation on the phone at work. Not experiencing physical fatigue from voice. He will use voice disorder as an excuse not to talk to someone. Open MRI results obtained. I will bring these to Dr. Richardson regarding next steps. O: Pt seen for treatment of dysphonia. Pt will demonstrate understanding and ability to use techniques to achieve voicing of 1-5 seconds induration. Ongoing attempts at voicing. Rumbly low pitch voice. High pitch is breathy. Right head turn little better on high pitch than low pitch. Default is to use whispered voice. Education ongoing to patient regarding whisper avoidance. Pt will match voicing with right head turn to voicing at midline 8/10 trials per session. Head position is not necessarily making the difference I had hoped. We will d/c this goal. Pt will try to reduce whispering in functional speech contexts 80% of the time.Education ongoing. Pthas difficulty avoiding whispering. Counted 1-10, saying single words with subtle voicing/ whisper. Pt understands difference between whisper and voice. Pt prefers low rumble voice. Discussed resonant voice and oral air flow. Pt continues to struggle to avoid whispering despite education and training. Pt will likely need to follow up with Dr. Dylan re: plan of care once she sees his MRI results. Pt will demonstrate understanding and compliance with a daily home program. No dizziness. Pt understands I want him to play with his voice at home as instructed above. Pt encouraged to use voice and avoid whisper. A: Pt with good response to treatment. Improved understanding of treatment goals and approximation of voicing vs. Whisper. Voice modification remains difficult for him. Did introduce kazoo today to attempt to improve patient's ability to initiate vocal vibration with good response. P: Pt to practice intentionally turning on his voice. Pt understands that based on our visits to date I don't anticipate being able to recover his voice fully. Pt to return for 2-4 additional visits. Pt indicated agreement with treatment plan. Cary Lam MS [facility] Speech-Language Pathologist Outpatient Rehabilitation Medicine Pager # [phone] documented in this encounter Plan of Treatment Upcoming Encounters Date Type Specialty Care Team Description 03/25/2022 Anesthesia Event Surgery Catrachita Baez MD [facility] ANESTHESIOLOGY [place], [place] [address] (Wo rk) 12/15/2022 Office Visit Cardiology Damián Hart MD [facility] [place], [place] [address] (Wo rk) 03/25/2050 Hospital Encounter Surgery Citlalli Richardson MD Vocal cord paralysis [facility] OTOLARYNGOLOGY [place], [place] [address] (Wo rk) documented as of this encounter Visit Diagnoses Diagnosis Vocal cord paralysis Paralysis of vocal cords or larynx, unsp ecified Vocal cord paralysis Paralysis of vocal cords or larynx, unsp ecified documented in this encounter Care Teams Cornice Upholsterer Relationship Specialty Start Date End Date Vladimir Muñoz DO PCP - General Family Medicine 01/19/18 [address] [place] [address] documented as of this encounter
--- OUTSIDE RECORDS SUMMARY | 2022-08-05 09:02 | XMS_ITS | Encounter Summary ---
:1955 Author Organization [facility] Address [facility] [place] [address] Care Team Providers Name Role Phone Vladimir Muñoz DO Primary Care Provider Encounter Details Date Type Department Care Team Description 05/06/2022 Orders Only Allergy at [facility] Salina Barreto MD Anaphylaxis, [facility] sub sequent [place] [address] ALLERGY DEPT [phone] [place] [id number] Social History Tobacco Use Types Packs/Day Years [...] documented as of this encounter Miscellaneous Notes Addendum Note - Salina Barreto MD - 05/06/2022 7:59 AM EDT Addended by: SALINA BARRETO on: 05/06/2022 12:30 PM Modules accepted: Orders documented in this encounter Plan of Treatment Upcoming Encounters Date Type Specialty Care Team Description 03/25/2022 Anesthesia Event Surgery Catrachita Baez MD [facility] ANESTHESIOLOGY [place], [place] [address] (Wo rk) 12/15/2022 Office Visit Cardiology Damián Hart MD [facility] [place], [place] [address] (Wo rk) 03/25/2050 Hospital Encounter Surgery Citlalli Richardson MD Vocal cord paralysis [facility] OTOLARYNGOLOGY [place], [place] [address] (Wo rk) documented as of this encounter Visit Diagnoses Diagnosis Vocal cord paralysis Paralysis of vocal cords or larynx, unsp ecified Anaphylaxis, subsequent encounter documented in this encounter Care Teams Product Management Intern Relationship Specialty Start Date End Date Vladimir Muñoz DO PCP - General Family Medicine 01/19/18 [address] [place] [address] documented as of this encounter
--- OUTSIDE RECORDS SUMMARY | 2022-08-05 09:02 | XMS_ITS | Encounter Summary ---
:1955 Author Organization [facility] [place] [address] Care Team Providers Name Role Phone Vladimir Muñoz DO Primary Care Provider Encounter Details Date Type Department Care Team Description 06/30/[address] [facility] [place] [address] Social History Tobacco Use Types Packs/Day Years [...] this encounter Miscellaneous Notes Telephone Encounter - Gabrielle Hinkle - 06/30/2022 11:28 AM EDT Dot from PT called after receiving a message from the patient [facility] documented in this encounter Plan of Treatment Upcoming Encounters Date Type Specialty Care Team Description 03/25/2022 Anesthesia Event Surgery Catrachita Baez MD [facility] ANESTHESIOLOGY [place], [place] [address] (Wo rk) 12/15/2022 Office Visit Cardiology Damián Hart MD [facility] [place], [place] [address] (Wo rk) 03/25/2050 Hospital Encounter Surgery Citlalli Richardson MD Vocal cord paralysis [facility] OTOLARYNGOLOGY [place], [place] [address] (Wo rk) documented as of this encounter Visit Diagnoses Not on filedocumented in this encounter Care Teams Vp [employer] Relationship Specialty Start Date End Date Vladimir Muñoz DO PCP - General Family Medicine 01/19/18 [address] [place] [address] documented as of this encounter
--- OUTSIDE RECORDS SUMMARY | 2022-08-05 09:02 | XMS_ITS | Encounter Summary ---
:1955 Author Organization [facility] [place] [address] Care Team Providers Name Role Phone Toni, Vladimir Madrigal DO Primary Care Provider Encounter Details Date Type Department Care Team Description 05/06/2022 Notes Only Allergy at [facility] Ayana Giordano, [place] [address] Social History Tobacco Use Types Packs/Day [...] documented as of this encounter Progress Notes Ayana Giordano, RN - 05/06/2022 4:26 PM EDT Controlled substance administration waste Vecuronium Mentor 10 mg per mL. Time wasted 1600 amount given 0.3 mL, and amount wasted 9.7 mL. documented in this encounter Plan of Treatment Upcoming Encounters Date Type Specialty Care Team Description 03/25/2022 Anesthesia Event Surgery Catrachita Baez MD [facility] ANESTHESIOLOGY [place], [place] [address] (Wo rk) 12/15/2022 Office Visit Cardiology Damián Hart MD [facility] [place], [place] [address] (Wo rk) 03/25/2050 Hospital Encounter Surgery Citlalli Richardson MD Vocal cord paralysis [facility] OTOLARYNGOLOGY [place], [place] [address] (Wo rk) documented as of this encounter Visit Diagnoses Not on filedocumented in this encounter Care Teams Waste Minimization Technician Relationship Specialty Start Date End Date Vladimir Muñoz DO PCP - General Family Medicine 01/19/18 [address] [place] [address] documented as of this encounter
--- OUTSIDE RECORDS SUMMARY | 2022-08-05 09:02 | XMS_ITS | Encounter Summary ---
:1955 Author Organization [facility] [place] [address] Care Team Providers Name Role Phone Vladimir Muñoz DO Primary Care Provider Encounter Details Date Type Department Care Team Description 04/15/2022 Telephone Speech Therapy at [facility] [place] [address] Social History Tobacco Use Types Packs/Day [...] this encounter Miscellaneous Notes Telephone Encounter - Ayana Hancock - 04/15/2022 7:49 AM EDT Spoke with Burton this morning in regards to needing to cancel his New Evaluation with Cary Lam as she is out of the office today. Offered telehealth appointment in place of but patient wishes to reschedule. He will call back at a later date to reschedule this appointment. documented in this encounter Plan of Treatment Upcoming Encounters Date Type Specialty Care Team Description 03/25/2022 Anesthesia Event Surgery Catrachita Baez MD [facility] ANESTHESIOLOGY [place], [place] [address] (Wo rk) 12/15/2022 Office Visit Cardiology Damián Hart MD [facility] [place], [place] [address] (Wo rk) 03/25/2050 Hospital Encounter Surgery Citlalli Richardson MD Vocal cord paralysis [facility] OTOLARYNGOLOGY [place], [place] [address] (Wo rk) documented as of this encounter Visit Diagnoses Not on filedocumented in this encounter Care Teams Production Helper Relationship Specialty Start Date End Date Vladimir Muñoz DO PCP - General Family Medicine 01/19/18 [address] [place] [address] documented as of this encounter
--- OUTSIDE RECORDS SUMMARY | 2022-08-05 09:02 | XMS_ITS | Encounter Summary ---
:1955 Author Organization [facility] [place] [address] Care Team Providers Name Role Phone Toni Vladimir Rohan LOJA Primary Care Provider Reason for Visit Reason Comments Medication Refill Encounter Details Date Type Department Care Team Description 06/26/2022 Refill Cardiology at [facility] Damián Hart MD Medication Refill [address] [place] [address] [place] [address] [phone] (Wo rk) Social History Tobacco Use Types [...] 03/25/2022 Anesthesia Event Surgery Catrachita Baez MD [facility] DR ANESTHESIOLOGY [place], [place] [address] (Wo rk) 12/15/2022 Office Visit Cardiology Damián Hart MD [facility] [place], [place] [address] ( rk) 03/25/2050 Hospital Encounter Surgery Citlalli Richardson MD Vocal cord paralysis [facility] OTOLARYNGOLOGY [place], [place] [address] ( rk) documented as of this encounter Visit Diagnoses Diagnosis Vocal cord paralysis Paralysis of vocal cords or larynx, unsp ecified ASCVD (arteriosclerotic cardiovascular d isease) Unspecified cardiovascular disease documented in this encounter Care Teams Financial Planning Assistant Relationship Specialty Start Date End Date Vladimir Muñoz DO PCP - General Family Medicine 01/19/18 [address] [place] [address] documented as of this encounter
--- OUTSIDE RECORDS SUMMARY | 2022-08-05 09:02 | XMS_ITS | Encounter Summary ---
:1955 Author Organization [facility] [place] [address] Care Team Providers Name Role Phone Vladimir Muñoz DO Primary Care Provider Encounter Details Date Type Department Care Team Description 05/06/2022 Notes Only Allergy at [facility] Ayana Giordano, [place] [address] Social History Tobacco Use Types Packs/Day [...] Progress Notes Ayana Giordano, RN - 05/06/2022 4:42 PM EDT Human serum albumin 5% Albutin 1 bottle for allergy testing was not used/opened. Spoke to Dr. Barreto who stated to call the inpatient pharmacy to see if they wanted it back. Called inpatient pharmacy and spoke to Emma who stated they would like it back. Medication was dropped off at 1640 to the inpatient pharmacy. documented in this encounter Plan of Treatment Upcoming Encounters Date Type Specialty Care Team Description 03/25/2022 Anesthesia Event Surgery Catrachita Baez MD [facility] ANESTHESIOLOGY [place], [place] [address] (Wo rk) 12/15/2022 Office Visit Cardiology Damián Hart MD [facility] [place], [place] [address] (Wo rk) 03/25/2050 Hospital Encounter Surgery Citlalli Richardson MD Vocal cord paralysis [facility] OTOLARYNGOLOGY [place], [place] [address] (Wo rk) documented as of this encounter Visit Diagnoses Not on filedocumented in this encounter Care Teams Residential Supervisor Relationship Specialty Start Date End Date Vladimir Muñoz DO PCP - General Family Medicine 01/19/18 [address] [place] [address] documented as of this encounter
--- OUTSIDE RECORDS SUMMARY | 2022-08-05 09:03 | XMS_ITS | Encounter Summary ---
:1955 Author Organization [facility] [place] [address] Care Team Providers Name Role Phone Vladimir Muñoz DO Primary Care Provider Encounter Details Date Type Department Care Team Description 03/21/2022 Telephone Speech Therapy at [facility] [place] [address] Social History Tobacco Use Types Packs/Day [...] this encounter Miscellaneous Notes Telephone Encounter - Erendira Hurtado - 03/21/2022 8:03 AM EDT Per staff message ZACKERY Stanton on 03/20/2022 patient can now received his own calls and does not have tocontact sister to make appointments documented in this encounter Plan of Treatment Upcoming Encounters Date Type Specialty Care Team Description 03/25/2022 Anesthesia Event Surgery Catrachita Baez MD [facility] ANESTHESIOLOGY [place], [place] [address] (Wo rk) 12/15/2022 Office Visit Cardiology Damián Hart MD [facility] [place], [place] [address] (Wo rk) 03/25/2050 Hospital Encounter Surgery Citlalli Richardson MD Vocal cord paralysis [facility] OTOLARYNGOLOGY [place], [place] [address] (Wo rk) documented as of this encounter Visit Diagnoses Not on filedocumented in this encounter Care Teams Animal Husbandry Professor Relationship Specialty Start Date End Date Vladimir Muñoz DO PCP - General Family Medicine 01/19/18 [address] [place] [address] documented as of this encounter
--- OUTSIDE RECORDS SUMMARY | 2022-08-05 09:03 | XMS_ITS | Encounter Summary ---
:1955 Author Organization [facility] [place] [address] Care Team Providers Name Role Phone Vladimir Muñoz DO Primary Care Provider Encounter Details Date Type Department Care Team Description 03/24/2022 Telephone Otolaryngology at [facility] Santa Eisenberg [facility] [place] [address] Social History Tobacco Use Types Packs/Day [...] this encounter Miscellaneous Notes Telephone Encounter - Santa Eisenberg RN - 03/24/2022 3:22 PM EDT Patient called with some concerns about the procedure he is scheduled for tomorrow. He states that every time he has had surgery in the past he has not tolerated the anesthesia well and has even had jane admitted due to issues coming out of anesthesia. Discussed this with Dr Richardson, she was agreeable to postponing the procedure if the patient would feel better having a formal visit with anesthesia before proceeding. After relaying this to the patient this is what he would like to do. We will postpone his procedure for now and get him in with anesthesiafor an evaluation. documented in this encounter Plan of Treatment Upcoming Encounters Date Type Specialty Care Team Description 03/25/2022 Anesthesia Event Surgery Catrachita Baez MD [facility] ANESTHESIOLOGY [place], [place] [address] (Wo rk) 12/15/2022 Office Visit Cardiology Damián Hart MD [facility] [place], [place] [address] (Wo rk) 03/25/2050 Hospital Encounter Surgery Citlalli Richardson MD Vocal cord paralysis [facility] OTOLARYNGOLOGY [place], [place] [address] (Wo rk) documented as of this encounter Visit Diagnoses Not on filedocumented in this encounter Care Teams Table Games Dual Rate Supervisor Relationship Specialty Start Date End Date Vladimir Muñoz DO PCP - General Family Medicine 01/19/18 [address] [place] [address] documented as of this encounter
--- OUTSIDE RECORDS SUMMARY | 2022-08-05 09:03 | XMS_ITS | Encounter Summary ---
:1955 Author Organization [facility] [place] [address] Care Team Providers Name Role Phone Vladimir Muñoz DO Primary Care Provider Reason for Visit Consultation (Routine) - Closed Specialty Diagnoses / Procedures Referred By Contact Refer red To Contact Pre-Admission Testing Diagnoses Vocal cord paralysis Citlalli Richardson MD [facility] Pre Admit Test [facility] 4v [facility] OTOLARYNGOLOGY [address] [address] Phone: Referral ID Status Reason Start Date Expiration Date Visits V isits Requested Authorized [id number] Closed Consult, 03/27/2022 03/27/2023 1 1 Test & Treat Encounter Details Date Type Department Care Team Description 04/01/2022 Office Visit Same Day at [facility] [place] [address] Social History Tobacco Use Types Packs/Day [...] Sign Reading Time Taken Comments Blood Pressure 153/90 04/01/2022 2:30 PM EDT Pulse 96 04/01/2022 2:30 PM EDT Temperature - - Respiratory Rate - - Oxygen Saturation 97% 04/01/2022 2:30 PM EDT Inhaled Oxygen Concentration - - Weight 85.9 kg (189 lb 6.4 oz) 04/01/2022 2:16 PM EDT Height 182.9 cm (6') 04/01/2022 2:16 PM EDT Body Mass Index 25.69 04/01/2022 2:16 PM EDT documented in this encounter Plan of Treatment Upcoming Encounters Date Type Specialty Care Team Description 03/25/2022 Anesthesia Event Surgery Catrachita Baez MD [facility] ANESTHESIOLOGY [place], [place] [address] (Wo rk) 12/15/2022 Office Visit Cardiology Damián Hart MD [facility] [place], [place] [address] (Wo rk) 03/25/2050 Hospital Encounter Surgery Citlalli Richardson MD Vocal cord paralysis [facility] OTOLARYNGOLOGY [place], [place] [address] (Wo rk) Scheduled Referrals Name Type Priority Associated Order Schedule Diagnoses Referral to General Outpatient Referral Routine Vocal cord O rdered: Anesthesiology paralysis 03/27/2022 documented as of this encounter Visit Diagnoses Not on filedocumented in this encounter Care Teams Sales Account Associate Relationship Specialty Start Date End Date Vladimir Muñoz DO PCP - General Family Medicine 01/19/18 [address] [place] [address] documented as of this encounter
--- OUTSIDE RECORDS SUMMARY | 2022-08-05 09:03 | XMS_ITS | Encounter Summary ---
:1955 Author Organization [facility] [place] [address] Care Team Providers Name Role Phone Vladimir Muñoz DO Primary Care Provider Encounter Details Date Type Department Care Team Description 02/13/2022 Office Visit Otolaryngology at Citlalli Bull [place] [address] CENTER [phone] OTOLARYNGOLOGY [place], [place] [address] Social History Tobacco Use Types Packs/Day Years [...] Sign Reading Time Taken Comments Blood Pressure - - Pulse - - Temperature - - Respiratory Rate - - Oxygen Saturation - - Inhaled Oxygen Concentration - - Weight 88.5 kg (195 lb) 02/13/2022 3:40 PM EDT Height 182.9 cm (6') 02/13/2022 3:40 PM EDT Body Mass Index 26.45 02/13/2022 3:40 PM EDT documented in this encounter Progress Notes Citlalli Richardson MD - 02/13/2022 3:20 PM EDT [facility] Otolaryngology - Head and Neck Surgery Citlalli Richardson MD 02/13/22 4:15 PM [place], [place] [address] Office Patient Name: Burton Mcnair Jr. Date of : 1955 PCP: Vladimir Muñoz DO Chief Complaint/ History of Present Illness: Burton Mcnair Jr. is a 67 y.o. year old who was seen today regarding vocal cord paresis and hoarseness. Patient underwent CABG on 01/21/2022, per hospital records he remained intubated until POD4. 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 He is seen in follow-up. He still notes continued hoarseness to his voice. He is eating and drinking well though. No dysphagia or odynophagia. But he describes his voice is strained and breathy. No hemoptysis or hematemesis. No fevers or chills. No swelling in the neck. Otherwise doing okay. 10 point Review of Systems was normal except for pertinent positives and negatives included in the History of Present Illness. Past Medical and Surgical History Patient Active Problem List Diagnosis Code ??? ASCVD (arteriosclerotic cardiovascular disease) I25.10 ??? Diabetes mellitus E11.9 ??? Hyperlipidemia E78.5 ??? Hyperpiesia I10 ??? Acquired deformity of foot M21.969 ??? Plantar fasciitis of left foot M72.2 ??? CAD (coronary artery disease) I25.10 Current Outpatient Medications on File Prior to Visit Medication Sig Dispense Refill ??? acetaminophen (Tylenol) 500 mg Tablet Take 2 tablets by mouth every 6 hours as needed for Pain. ??? cloNIDine (Catapres) 0.2 mg Tablet Take 1 tablet by mouth 2 times daily. 120 tablet 3 ??? metoprolol tartrate (Lopressor) 100 mg Tablet Take 1 tablet by mouth 2 times daily. 180 tablet 3 ??? glipiZIDE XL (Glucotrol XL) 2.5 mg Tablet Extended Rel 24 hr Take 2.5 mg by mouth daily. ??? omeprazole (PriLOSEC) 40 mg Capsule, Delayed Release(E.C.) Take 40 mg by mouth daily. ??? amLODIPine (Norvasc) 10 mg Tablet take 1 tablet by mouth daily 90 tablet 3 ??? atorvastatin (Lipitor) 80 mg Tablet take 1 tablet by mouth once daily 90 tablet 3 ??? nitroGLYcerin (Nitrostat) 0.4 mg Tablet, Sublingual Place 1 tablet under the tongue every 5 minutes x3 as needed for chest pain- 25 tablet 12 ??? amoxicillin (AMOXIL) 500 mg Capsule TAKE 4 CAPSULES BY MOUTH 1 HOUR BEFORE APPOINTMENT ??? aspirin 81 mg Tablet, Delayed Release (E.C.) Take 162 mg by mouth daily. Increased by neurologist ??? metFORMIN (GLUCOPHAGE) 1,000 mg Tablet Take 1,000 mg by mouth 2 times daily (with meals). No current facility-administered medications on file prior to visit. Allergies: Albumin products and Lisinopril Surgical History: Past Surgical History: Procedure Laterality Date ??? CARDIAC CATHERIZATION stent placement ? ? PRG CATH [facility] CORONARY ART W/INJ FOR ANGIO W/R HEART CATH IMG S&I N/A 01/13/2022 CORONARY ANGIOGRAPHY; W RHC performed by Polo Beckham MD at [facility] CATH LABS ??? PRO CABG, ARTERIAL, SINGLE N/A 01/21/2022 @CABG, USING ARTERIAL GRAFT;SINGLE ARTERIAL GRAFT (WRVU 33.75) performed by Danny Antonio MD at [facility] MAIN OR ??? PRO CABG, ARTERY-VEIN, TWO N/A 01/21/2022 @CABG, TWO VENOUS GRAFTS & ARTERIAL GRAFT (WRVU 7.93) performed by Danny Antonio MD at [facility] MAIN OR ??? PRO ENDOSCOPY W/VIDEO-ASST VEIN HARVEST, CABG Right 01/21/2022 ENDOSCOPIC HARVEST VEIN(S) FOR CABG (WRVU 0.31) performed by Danny Antonio MD at [facility] MAIN OR Family and Social History Family History: Family History Problem Relation Age of Onset ??? No Known Problems Mother ??? Colorectal Cancer Father ??? Breast Cancer Sister Social History: Lives in [place] [id number] Social History Socioeconomic History ??? Marital status: Spouse name: Not on file ??? Number of children: Not on file ??? Years of education: Not on file ??? Highest education level: Not on file Occupational History ??? Not on file Tobacco Use ??? Smoking status: Former Smoker Types: Cigarettes ??? Smokeless tobacco: Never Used ??? Tobacco comment: quit at age 17 Vaping Use ??? Vaping Use: Never used Substance and Sexual Activity ??? Alcohol use: Yes Alcohol/week: 2.0 standard drinks Types: 2 Glasses of wine per week Comment: beer on weekends ??? Drug use: No ??? Sexual activity: Not on file Other Topics Concern ??? Not on file Social History Narrative ??? Not on file Social Determinants of Health Financial Resource Strain: Not on file Food Insecurity: Not on file Transportation Needs: Not on file Physical Activity: Not on file Housing Stability: Not on file Physical Exam Temperature: Heart Rate: Blood Pressure: Respiratory Rate: SpO2: General: Awake, alert, and oriented to person, place and time. No acute distress. Head and Face: Head is normocephalic, atraumatic. Facial resting tone symmetric. Eyes: Conjugate gaze, ocular motility intact bilaterally. PERRL. Neurologic: Cranial Nerves II-XII grossly intact and symmetric. Ears: External ear and ear canal are without deformity. Hearing is grossly normal. Nose: External nose is midline without deformity or lesion. Anterior rhinoscopy reveals a straight septum, healthy mucosa, turbinates normal in size. Oral: There are no visible or palpable buccal, gingival, lingual, or palatal lesions. The floor of mouth is soft and flat. Oropharynx: Symmetric without tonsillar pathology. No other concerning lesions or masses Larynx: No stridor, voice is breathy and hoarse. Face and sinuses are non tender. Salivary glands are soft, non tender, without palpable masses. No temporomandibular joint grinding or locking. Neck: Symmetric. No scars, palpable masses, or crepitus. Midline trachea. Thyroid normal in size, non tender, no palpable mass. Lymphatic: no palpable cervical lymphadenopathy. Pulmonary: Breathing comfortably. Symmetric chest expansion without use of accessory muscles or retraction. Skin: Good skin turgor, no pallor, no icterus. Extremities: No gross deformities, no peripheral edema. Labs and Imaging Significant lab values are as follows: I reviewed the following imaging studies: Procedures Flexible laryngoscopy was performed. The nose was sprayed with topical lidocaine and decongestant. Nasopharynx was normal. Base of tongue was normal. Pharyngeal baumann are normal. Right true vocal fold was in the paramedian position with very minimal movement over the arytenoid. The left true vocal fold is fully mobile. No lesions or masses noted. There is a persistent glottic gap on phonation as wellas supraglottic squeezing over the false vocal folds. ASSESSMENT & RECOMMENDATIONS Burton Mcnair Jr. is a 67 y.o. with a right vocal fold paresis. Suspect given the history that this might be due to pressure from the ET tube. Recommendations: 1. We offered a temporary medialization procedure. Risks and benefits of suspension microlaryngoscopy with vocal cord medialization on the right with hydroxylapatite or reviewed with the patient. He understands and would like to proceed. Consent was obtained today. We will schedule this soon. Citlalli Richardson MD Otolaryngology - Head and Neck Surgery 02/13/22 4:15 PM documented in this encounter Plan of Treatment Upcoming Encounters Date Type Specialty Care Team Description 03/25/2022 Anesthesia Event Surgery Catrachita Baez MD [facility] ANESTHESIOLOGY [place], [place] [address] (Wo rk) 12/15/2022 Office Visit Cardiology Damián Hart MD [facility] [place], [place] [address] (Wo rk) 03/25/2050 Hospital Encounter Surgery Citlalli Richardson MD Vocal cord paralysis [facility] OTOLARYNGOLOGY [place], [place] [address] (Wo rk) documented as of this encounter Visit Diagnoses Diagnosis Vocal cord paralysis Paralysis of vocal cords or larynx, unsp ecified Vocal cord paralysis Paralysis of vocal cords or larynx, unsp ecified documented in this encounter Care Teams Environmental Permitting Specialist Relationship Specialty Start Date End Date Vladimir Muñoz DO PCP - General Family Medicine 01/19/18 [address] [place] [address] documented as of this encounter
--- OUTSIDE RECORDS SUMMARY | 2022-08-05 09:03 | XMS_ITS | Encounter Summary ---
:1955 [place] [address] Care Team Providers Name Role Phone Vladimir Muñoz DO Primary Care Provider Encounter Details Date Type Department Care Team Description [facility] [address] [place] [address] [place] [address] [place] [address] (Wo rk) Social History Tobacco [...] this encounter Miscellaneous Notes Telephone Encounter - Keke Murcia RN - 03/05/2022 8:59 AM EDT Burton is speaking in a WHISPER. He says his voice has been like this since his heart surgery. Call placed to Burton to determine how his appointment with PCP Vladimir Muñoz went yesterday. His HR was 89/min. Current Metoprolol regime is 50 mg BID Plan: Keep appointment with Dr. Antonio tomorrow. Keep appointment with Dr. Hart on April 29 Telephone Encounter - Keke Murcia RN - 02/25/2022 5:02 PM EDT Situation - Burton had resting pulse in 120s/min at cardiac rehab. Nurse at cardiac rehab was concerned. Today Burton was at pcp office - Dr. Muñoz. Background - Burton has, on his own, stopped metoprollol 100 mg bid, and has just disclosed this atthe pcp office. Reason stated: someone told him he could not drive taking such a dose of metoprolol. Assessment (Dr. Muñoz) - patient's tachycardia is likely a response to non- adherence to to prescription directions. BP was low/normal today after Burton had not taken metoprolol 100 mg BID x 2 weeks. Plan - Dr. Muñoz ordered metoprolol tartrate [address] Muñoz lowered the clonidine dose.. Burton is to RTC with Dr. Muñoz on 02/27/2022. Recommendation: FOLLOW UP with compensator worker in next 2-3 weeks, pending the update on . Telephone Encounter - Keke Murcia RN - 02/20/2022 10:45 AM EDT Fax of note to attention to Dr. Hart - documented in this encounter Plan of Treatment Upcoming Encounters Date Type Specialty Care Team Description 03/25/2022 Anesthesia Event Surgery Catrachita Baez MD [facility] [address] ANESTHESIOLOGY [place] [address] (Wo rk) 12/15/2022 Office Visit Cardiology Damián Hart MD [facility] [place], [place] [address] (Wo rk) 03/25/2050 Hospital Encounter Surgery Citlalli Richardson MD Vocal cord paralysis [facility] OTOLARYNGOLOGY [place], [place] [address] (Wo rk) documented as of this encounter Visit Diagnoses Not on filedocumented in this encounter Care Teams Roof Truss Machine Tender Relationship Specialty Start Date End Date Vladimir Muñoz DO PCP - General Family Medicine 01/19/18 [address] [place] [address] documented as of this encounter
--- OUTSIDE RECORDS SUMMARY | 2022-08-05 09:03 | XMS_ITS | Encounter Summary ---
:1955 Author Organization [facility] [place] [address] Care Team Providers Name Role Phone Toni, Vladimir Madrigal DO Primary Care Provider Reason for Referral Diagnostic Test (Routine) - Authorized Specialty Diagnoses / Procedures Referred By Contact Refer red To Contact Radiology Diagnoses Vocal cord paralysis Citlalli Richardson MD [facility] Rad Ct Scan Procedures CT Neck Soft Tissue w Contrast (Generic) [facility] [place] [address] [place] [address] Referral ID Status Reason Start Expiration Visits Visits Date Date Requested Authorized [id number] Authorized Specialty 03/07/2022 09/06/2023 1 1 Service Requested Encounter Details Date Type Department Care Team Description 03/07/2022 Orders Only Otolaryngology at Citlalli Bull MD Vocal cord paralysis [facility] [place] [address] CENTER [phone] OTOLARYNGOLOGY [place], [place] [address] Social History Tobacco Use Types [...] 03/25/2022 Anesthesia Event Surgery Catrachita Baez MD [facility] ER ANESTHESIOLOGY [place], [place] 0[address] (Wo rk) 12/15/2022 Office Visit Cardiology Damáin Hart MD [facility] Medical [facility] er [place], [place] 0[address] (Wo rk) 03/25/2050 Hospital Encounter Surgery Citlalli Richardson MD Vocal cord paralysis [facility] ER OTOLARYNGOLOGY [place], [place] [address] (Wo rk) Scheduled Orders Name Type Priority Associated Diagnoses Order S chedule CT Neck Soft Tissue w Imaging Routine Vocal cord paralysi s Expected: 03/08/2022, Contrast (Generic) Expires: 09/07/2022 documented as of this encounter Visit Diagnoses Diagnosis Vocal cord paralysis Paralysis of vocal cords or larynx, unsp ecified Vocal cord paralysis Paralysis of vocal cords or larynx, unsp ecified documented in this encounter Care Teams Residential Real Estate Assistant Relationship Specialty Start Date End Date Vladimir Muñoz DO PCP - General Family Medicine 01/19/18 [address] [place] [address] documented as of this encounter
--- OUTSIDE RECORDS SUMMARY | 2022-08-05 09:03 | XMS_ITS | Encounter Summary ---
:1955 Author Organization [facility] [place] [address] Care Team Providers Name Role Phone Vladimir Muñoz DO Primary Care Provider Reason for Visit Speech Therapy (Routine) - Authorized Specialty Diagnoses / Procedures Referred By Contact Refer red To Contact Speech Therapy Diagnoses s/p CABG now with R vocal cord non-mobil, Danny Antonio MD [facility] Customer Service Administrator [facility] [place] [address] [place] [address] Fax: Referral ID Status Reason Start Date Expiration Visits Visits Date Requested Authorized [id number] Authorized Consult, 01/31/2022 01/31/2023 100 100 Test & Treat Encounter Details Date Type Department Care Team Description 03/06/2022 Office Visit Speech Therapy at Cary Lam Voc al cord paralysis [facility] CHANNELING MACHINE OPERATOR [facility] [address] [place], [place] PHYSICAL MEDICINE & [phone] REHABILITAT [phone] [place] [address] Social History Tobacco Use Types Packs/Day Years [...] of this encounter Progress Notes Cary Lam, CHANNELING MACHINE OPERATOR - 03/06/2022 11:00 AM EDT Speech-Language Pathology Treatment Session 03/06/2022 Total Treatment Time: 55 minutes Total Timed Code Treatment: 0 minutes S: Pt doing better with his breathing today. Almost normal Pt defaults to whisper, but does have some intermittent voicing observed in spontaneous speech. I've been practicing Demonstrates improved voicing on right head turn. Pt reported feeling light headed for a few seconds with repeated voicing and if he transitions to upright quickly or moves quickly. Dena this afternoon. Xray at 2 pm. PT at [facility] yesterday. Did not discuss shoulder but did talk to PCP about shoulder. Gentel stretching. Retested lingual sensation - colder on right than left. Touch sensation fairly equal. Tongue strength is weak. O: Pt seen for treatment of dysphonia. Pt will demonstrate understanding and ability to use techniques to achieve voicing of 1-5 seconds induration. Vowels with forward face and right head turn Oral air flow with straw. Na - to right head turn - improved voicing. Yeah with head turn to the right - to support Pt with evidence of lower pitch voicing intermittent with random control. Discussed and agreed upon sing song word practice. (kimberly, memo). Pt will match voicing with right head turn to voicing at midline 8/10 trials per session. Not addressed today. Pt will try to reduce whispering in functional speech contexts 80% of the time.Education ongoing. Pt will demonstrate understanding and compliance with a daily home program. Education ongoing re: gentle stretching, talking to PT, working on breath support and not overdoing exercises given ease of feeling breathless. A: Pt with good response to treatment. One instance of voicing that was likely more typical for him but that startled him and he could not achieve again. P: Pt in agreement with home practice and treatment plan. Understands exercises below. Understands concept of vocal hygiene. Still prefers to whisper in basic communication. Pt to perform head and neck stretches Shoulder rolls Arms above head Look side to side hold for 3-5 seconds, perform 3-5 times. Ear to shoulder. Recommend 4-6 additional visits 1x/ week. Contact with Dr. Richardson re: plan of care and concerns re: lingual weakness as documented above. Cary Lam MS CCC-CHANNELING MACHINE OPERATOR Speech-Language Pathologist [facility] Pager # [phone] documented in this encounter Plan of Treatment Upcoming Encounters Date Type Specialty Care Team Description 03/25/2022 Anesthesia Event Surgery Catrachita Baez MD [facility] ANESTHESIOLOGY [place], [place] [address] (Wo rk) 12/15/2022 Office Visit Cardiology Damián Hart MD [facility] [place], [place] [address] (Wo rk) 03/25/2050 Hospital Encounter Surgery Citlalli Richardson MD Vocal cord paralysis [facility] OTOLARYNGOLOGY [place], [place] [address] (Wo rk) documented as of this encounter Visit Diagnoses Diagnosis Vocal cord paralysis Paralysis of vocal cords or larynx, unsp ecified Vocal cord paralysis Paralysis of vocal cords or larynx, unsp ecified documented in this encounter Care Teams Clinical Data Management Director Relationship Specialty Start Date End Date Vladimir Muñoz DO PCP - General Family Medicine 01/19/18 [address] [place] [address] documented as of this encounter
--- OUTSIDE RECORDS SUMMARY | 2022-08-05 09:03 | XMS_ITS | Encounter Summary ---
:1955 Author Organization [facility] [place] [address] Care Team Providers Name Role Phone Vladimir Muñoz DO Primary Care Provider Reason for Referral Consultation (Routine) - Closed Specialty Diagnoses / Procedures Referred By Contact Refer red To Contact Pre-Admission Testing Diagnoses Vocal cord paralysis Citlalli Richardson MD [facility] Pre Admit Test [facility] 4v [facility] [place] [id number] [place] [phone] Phone: Referral ID Status Reason Start Date Expiration Date Visits V isits Requested Authorized [id number] Closed Consult, 03/27/2022 03/27/2023 1 1 Test & Treat Encounter Details Date Type Department Care Team Description 03/27/2022 Orders Only Otolaryngology at Ciltalli Bull MD Vocal cord paralysis [facility] [place] [address] CENTER [phone] OTOLARYNGOLOGY [place], [place] [address] Social History Tobacco Use Types [...] 03/25/2022 Anesthesia Event Surgery Catrachita Baez MD [facility] MEDICAL [facility] ER ANESTHESIOLOGY [place], [place] 0[address] (Wo rk) 12/15/2022 Office Visit Cardiology Damián Hart MD [facility] Medical [facility] er [place], [place] [address] (Wo rk) 03/25/2050 Hospital Encounter Surgery Citlalli Richardson MD Vocal cord paralysis [facility] MEDICAL [facility] ER OTOLARYNGOLOGY [place], [place] [address] (Wo rk) Scheduled Referrals Name Type Priority Associated Order Schedule Diagnoses Referral to General Outpatient Referral Routine Vocal cord O rdered: Anesthesiology paralysis 03/27/2022 documented as of this encounter Visit Diagnoses Diagnosis Vocal cord paralysis Paralysis of vocal cords or larynx, unsp ecified Vocal cord paralysis Paralysis of vocal cords or larynx, unsp ecified documented in this encounter Care Teams Raw Finish Mill Operator Relationship Specialty Start Date End Date Vladimir Muñoz DO PCP - General Family Medicine 01/19/18 [address] [place] [address] documented as of this encounter
--- OUTSIDE RECORDS SUMMARY | 2022-08-05 09:03 | XMS_ITS | Encounter Summary ---
:1955 Author Organization [facility] [place] [address] Care Team Providers Name Role Phone Vladimir Muñoz DO Primary Care Provider Reason for Referral Diagnostic Test (Routine) - Authorized Specialty Diagnoses / Procedures Referred By Contact Refer red To Contact Radiology Diagnoses Vocal cord paralysis Citlalli Richardson MD Procedures MRI Soft Tissue Neck wwo Contrast [facility] [place] [address] Referral ID Status Reason Start Expiration Visits Visits Date Date Requested Authorized [id number] Authorized Specialty 04/15/2022 10/15/2023 1 1 Service Requested Encounter Details Date Type Department Care Team Description 04/15/2022 Office Visit Otolaryngology at Citlalli Bull MD Vocal cord paralysis [facility] [place] [address] CENTER [phone] OTOLARYNGOLOGY [place], [place] [address] Social History Tobacco Use Types [...] - Inhaled Oxygen Concentration - - Weight 85.7 kg (189 lb) 04/15/2022 2:53 PM EDT Height 182.9 cm (6') 04/15/2022 2:53 PM EDT Body Mass Index 25.63 04/15/2022 2:53 PM EDT documented in this encounter Progress Notes Citlalli Richardson MD - 04/15/2022 3:20 PM EDT [facility] Otolaryngology - Head and Neck Surgery Citlalli Richardson MD 04/15/22 3:17 PM [place] [address] Office Patient Name: Burton Mcnair Jr. Date of : 1955 PCP: Vladimir Muñoz DO Chief Complaint/History of Present Illness: Burton Mcnair Jr. is a 67 y.o. year old seen in follow up. 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 He was intubated until POD4. He was noted to have a hoarse voice and immobility of the right vocal cord. We had planned for a vocal cord injection/medialization, patient had some concerns regarding anesthesia and postponed that procedure. He has been working with speech and swallow therapy and is eating and drinking ok. We had ordered a CT of the neck to evaluate the course of the recurrent laryngeal nerve as it is unusual fora patient to have a right vocal cord paralysis after CABG, there were also concerns raised with a notable deviation of the tongue to the right during exams and visits with speech and swallow therapy. No hemoptysis or hematemesis, no fevers or chills, no vision changes, otherwise doing ok. 10 point Review of Systems was normal [...] M72.2 ??? CAD (coronary artery disease) I25.10 ??? Vocal cord paralysis J38.00 Current Outpatient Medications on File Prior to Visit Medication Sig Dispense Refill ??? metoprolol tartrate (Lopressor) 50 mg Tablet Take 50 mg by mouth 2 times daily (with meals). Take with food. ??? acetaminophen (Tylenol) 500 mg Tablet Take 2 tablets by mouth every 6 hours as needed for Pain. ??? cloNIDine (Catapres) 0.2 mg Tablet Take 1 tablet by mouth 2 times daily. 120 tablet 3 ??? glipiZIDE XL (Glucotrol XL) [...] on file prior to visit. Allergies: Albumin products, Lisinopril, Ceftriaxone, and Vecuronium Surgical History: Past Surgical History: Procedure Laterality Date ??? CARDIAC CATHERIZATION stent placement ? ? PRG CATH [facility] CORONARY ART W/INJ FOR ANGIO W/R HEART CATH IMG S&I N/A 01/13/2022 CORONARY ANGIOGRAPHY; W RHC performed by Polo Beckham MD at [facility] CATH LABS ??? PRO CABG, ARTERIAL, SINGLE N/A 01/21/2022 @CABG, USING ARTERIAL GRAFT;SINGLE ARTERIAL GRAFT (WRVU 33.75) performed by Danny Antonio MD at [facility] MAIN OR ??? PRO CABG, ARTERY-VEIN, TWO N/A 01/21/2022 @CABG, TWO VENOUS GRAFTS & ARTERIAL GRAFT (WRVU 7.93) performed by Danny Antonio MD at [facility] MAIN OR ??? PRO ENDOSCOPY W/VIDEO-ASST VEIN HARVEST, CABG Right 01/21/2022 ENDOSCOPIC HARVEST VEIN(S) FOR CABG (WRVU 0.31) performed by Danny Antonio MD at [facility] MAIN OR Family and Social History Family History: Family History Problem Relation Age of Onset ??? No Known Problems Mother ??? Colorectal Cancer Father ??? Breast Cancer Sister Social History: Lives in [place] [address] Social History Socioeconomic History ??? Marital status: [...] to person, place and time. No acute distress Head and Face: Head is normocephalic, atraumatic. [...] floor of mouth is soft and flat. The tongue deviates to the right on mouth opening, there is full tongue mobility. Oropharynx: Symmetric without tonsillar pathology. No other concerning lesions or masses Larynx: Breathy hoarseness noted. External laryngeal structures normal to palpation. Face and sinuses are non tender. Salivary [...] with topical lidocaine and decongestant. Nasopharynx was normal without lesions or masses. Base of tongue wnl, pharyngeal baumann wnl. Epiglottisand false cords were wnl. Piriform sinuses clear. Right true vocal fold again immobile with poor glottic closure and extensive supraglottic squeezing on phonation. ASSESSMENT & RECOMMENDATIONS Burton Mcnair Jr. is a 67 y.o. with continued right vocal cord immobility and hoarseness and dysphagia. Recommendations: 1. We will obtain an MRI of the brain and neck given his exam findings, f/u with me after the MRI isdone, we will discuss medialization depending on the MRI results. Citlalli Richardson MD Otolaryngology - Head and Neck Surgery 04/15/22 3:17 PM documented in this encounter Plan of Treatment Upcoming Encounters Date Type Specialty Care Team Description 03/25/2022 Anesthesia Event Surgery Catrachita Baez MD [facility] ANESTHESIOLOGY [place], [place] [address] (Wo rk) 12/15/2022 Office Visit Cardiology Damián Hart MD [facility] [place], [place] [address] (Wo rk) 03/25/2050 Hospital Encounter Surgery Citlalli Richardson MD Vocal cord paralysis [facility] OTOLARYNGOLOGY [place], [place] [address] (Wo rk) Scheduled Orders Name Type Priority Associated Diagnoses Order S chedule MRI Soft Tissue Neck wwo Imaging Routine Vocal cord paral ysis Expected: 04/22/2022, Contrast Expires: 2021 documented as of this encounter Visit Diagnoses Diagnosis Vocal cord paralysis Paralysis of vocal cords or larynx, unsp ecified Vocal cord paralysis Paralysis of vocal cords or larynx, unsp ecified documented in this encounter Care Teams Horser Up Relationship Specialty Start Date End Date Vladimir Muñoz DO PCP - General Family Medicine 01/19/18 [address] [place] [address] documented as of this encounter
--- OUTSIDE RECORDS SUMMARY | 2022-08-05 09:03 | XMS_ITS | Encounter Summary ---
:1955 [place] [address] Care Team Providers Name Role Phone ToniVladimir DO Primary Care Provider Encounter Details Date Type Department Care Team Description 03/25/2022 - Surgery Main Operating Room Citlalli Richardson MD Not Performed 03/25/2050 [facility] LARYNGO SCOPY WITH [facility] DR ABIGAIL SELF [facility] OTOLARYNGOLOG Y (WRVU 4.26) [place], [place] [id number] [place] [phone] (Work) [phone] Social History Tobacco Use Types Packs/Day Years [...] 03/25/2022 Anesthesia Event Surgery Catrachita Baez MD [facility] ER ANESTHESIOLOGY [place], [place] [address] (Wo rk) 12/15/2022 Office Visit Cardiology Damián Hart MD [facility] [place], [place] [address] (Wo rk) documented as of this encounter Procedures Procedure Name Priority Date/Time Associated Diagnosis Comme nts LARYNGOSCOPY WITH VOCAL Routine 03/25/2022 7:43 AM Vocal cord paralysis CORD INJECTION, MICRO EDT documented in this encounter Visit Diagnoses Diagnosis Vocal cord paralysis Paralysis of vocal cords or larynx, unsp ecified documented in this encounter Care Teams Heel Lift Gouger Relationship Specialty Start Date End Date Vladimir Muñoz DO PCP - General Family Medicine 01/19/18 [address] [place] [address] documented as of this encounter
--- OUTSIDE RECORDS SUMMARY | 2022-08-05 09:03 | XMS_ITS | Encounter Summary ---
:1955 Author Organization [facility] [place] [address] Care Team Providers Name Role Phone Vladimir Muñoz DO Primary Care Provider Encounter Details Date Type Department Care Team Description 03/21/2022 Telephone Otolaryngology at [facility] [place] [address] Social History Tobacco Use Types Packs/Day [...] this encounter Miscellaneous Notes Telephone Encounter - Nan Vargas S - 03/21/2022 2:40 PM EDT [place], Patient is scheduled to have surgery on 03/25/2022 and the packet has been mailed to the verified address on file. Follow up appointment is as follows: F/u appt 2-3 weeks postop, thanks! Mr Mcnair has some questions and would like a nurse to call him please Thank you!! documented in this encounter Plan of Treatment Upcoming Encounters Date Type Specialty Care Team Description 03/25/2022 Anesthesia Event Surgery Catrachita Baez MD [facility] ANESTHESIOLOGY [place], [place] [address] (Wo rk) 12/15/2022 Office Visit Cardiology Damián Hart MD [facility] [place], [place] [address] (Wo rk) 03/25/2050 Hospital Encounter Surgery Citlalli Richardson MD Vocal cord paralysis [facility] OTOLARYNGOLOGY [place], [place] [address] (Wo rk) documented as of this encounter Visit Diagnoses Not on filedocumented in this encounter Care Teams Income Tax Advisor Relationship Specialty Start Date End Date Vladimir Muñoz DO PCP - General Family Medicine 01/19/18 [address] [place] [address] documented as of this encounter
--- OUTSIDE RECORDS SUMMARY | 2022-08-05 09:03 | XMS_ITS | Encounter Summary ---
:1955 Author Organization [place] [address] Care Team Providers Name Role Phone ToniVladimir mullins Rohan LOJA Primary Care Provider Encounter Details Date Type Department Care Team Description 03/14/2022 Orders Only Otolaryngology at [facility] Citlalli Richardson MD [facility] [place] [address] OTOLARYNGOLOGY [phone] [place], [place] [address] (Wo rk) Social History Tobacco Use Types [...] 03/25/2022 Anesthesia Event Surgery Catrachita Baez MD [facility] ER ANESTHESIOLOGY [place], [place] [address] (Wo rk) 12/15/2022 Office Visit Cardiology Damián Hart MD [facility] er [place], [place] [address] ( rk) 03/25/2050 Hospital Encounter Surgery Citlalli Richardson MD Vocal cord paralysis [facility] OTOLARYNGOLOGY [place], [place] [address] (Wo rk) documented as of this encounter Visit Diagnoses Not on filedocumented in this encounter Care Teams Dietary Manager Relationship Specialty Start Date End Date Vladimir Muñoz DO PCP - General Family Medicine 01/19/18 [address] [place] [address] documented as of this encounter
--- OUTSIDE RECORDS SUMMARY | 2022-08-05 09:03 | XMS_ITS | Encounter Summary ---
:1955 Author Organization [facility] [place] [address] Care Team Providers Name Role Phone Vladimir Muñoz DO Primary Care Provider Reason for Visit Speech Therapy (Routine) - Authorized Specialty Diagnoses / Procedures Referred By Contact Refer red To Contact Speech Therapy Diagnoses s/p CABG now with R vocal cord non-mobil, Danny Antonio MD [facility] Electronic Controls Repairer Supervisor Rehab [facility] [place] [address] [place] [address] Fax: Referral ID Status Reason Start Date Expiration Visits Visits Date Requested Authorized [id number] Authorized Consult, 01/31/2022 01/31/2023 100 100 Test & Treat Encounter Details Date Type Department Care Team Description 03/20/2022 Office Visit Speech Therapy at Cary Lam Voc al cord paralysis [facility] SKILLED NURSING FACILITY COUNSELOR Formerly [facility] [address] [place], [place] PHYSICAL MEDICINE & [phone] REHABILITAT [phone] [place] [address] Social History Tobacco Use Types Packs/Day Years [...] of this encounter Progress Notes Cary Lam, SKILLED NURSING FACILITY COUNSELOR - 03/20/2022 1:00 PM EDT Speech-Language Pathology Treatment Session 03/20/2022 Total Treatment Time: 65 minutes Total Timed Code Treatment: 0 minutes S: Pt feels he is doing better. He has gained 2 lbs. Pt feels his appetite and taste buds are coming back. Pt has not heard from PT about his shoulder / knot. He continues to work on Cardiac Rehab. Pt reported that referral was placed but he has not heard anything. He will follow up. Pt have said his voice is stronger but still a whisper. Head turn to the right does help per parent report. Pt will be in touch with Dr. Richardson over [facility] due to difficulty using his phone. O: Pt seen for treatment of dysphonia. Pt will demonstrate understanding and ability to use techniques to achieve voicing of 1-5 seconds induration. Pt able to achieve high pitch voicing with the words yeah and hello with right head turn. Pt able to use tongue trill to improve voicing. Right tongue remains weak. Pt demonstrated improved understanding of breath control and the concept of phonation without strainand coming away from whispering. Pt will match voicing with right head turn to voicing at midline 8/10 trials per session. Using right head turn for optimal power. But did demonstrate voicing at midline and left head turn with near equal strength on several occasions. Pt will try to reduce whispering in functional speech contexts 80% of the time.Education ongoing. Ptdoes not feel he is able to stop whispering, though demonstrated improved insight into the concept of not whispering as important to his recovery. Pt will demonstrate understanding and compliance with a daily home program. Education ongoing re: gentle stretching, talking to PT, working on breath support and not overdoing exercises given ease of feeling breathless. This happened again today. Pt recalled having difficulty recalling his phone number the other day during a period of dizziness. This is the only time that he has had this happen sincehis med change. A: Pt with good response to treatment. Emerging voicing at a higher pitch than normal for patient. Improved attempts at voicing without strain today. P: Pt in agreement with home practice [...] weakness as documented above. Cary Lam MS [facility]-SKILLED NURSING FACILITY COUNSELOR Speech-Language Pathologist Outpatient Rehabilitation Medicine Pager # [phone] documented in this encounter Plan of Treatment Upcoming Encounters Date Type Specialty Care Team Description 03/25/2022 Anesthesia Event Surgery Catrachita Baez MD [facility] ANESTHESIOLOGY [place], [place] [address] (Wo rk) 12/15/2022 Office Visit Cardiology Damián Hart MD [facility] [place], [place] [address] (Wo rk) 03/25/2050 Hospital Encounter Surgery Citlalli Richardson MD Vocal cord paralysis [facility] OTOLARYNGOLOGY [place], [place] [address] (Wo rk) documented as of this encounter Visit Diagnoses Diagnosis Vocal cord paralysis Paralysis of vocal cords or larynx, unsp ecified Vocal cord paralysis Paralysis of vocal cords or larynx, unsp ecified documented in this encounter Care Teams Range Feeder Relationship Specialty Start Date End Date Vladimir Muñoz DO PCP - General Family Medicine 01/19/18 [address] [place] [address] documented as of this encounter
--- OUTSIDE RECORDS SUMMARY | 2022-08-05 09:03 | XMS_ITS | Encounter Summary ---
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, Danny Antonio MD [facility] Post Exchange Manager Rehab [facility] [place] [address] [place] [address] Fax: Referral ID Status Reason Start Date Expiration Visits Visits Date Requested Authorized [id number] Authorized Consult, 01/31/2022 01/31/2023 100 100 Test & Treat Encounter Details Date Type Department Care Team Description 03/03/2022 Office Visit Speech Therapy at Cary Lam Voc al cord paralysis [facility] COMMISSIONING SPECIALIST (Primary Dx) [facility] [address] [place] PHYSICAL MEDICINE & [phone] REHABILITAT [phone] [place] [address] Social History Tobacco Use Types Packs/Day Years [...] documented as of this encounter Miscellaneous Notes Initial Evaluation - Cary Lam, COMMISSIONING SPECIALIST - 03/03/2022 9:00 AM EDT [facility] Rehabilitation Medicine Department Speech-Language Pathology Voice Evaluation Patient Name: Burton Mcnair Jr. Date of : 1955 Referring MD: Citlalli Richardson MD Date Seen by MD: 02/13/22 Diagnosis: Dysphonia/ aphonia, vocal cord impairment Right, dysphagia, impaired lingual function Date of Onset: 2021 Date of Evaluation: 03/03/2022 Evaluation Time: 90 min, no timed codes Presenting Problem: Burton Mcnair Jr. is a 67 y.o. year old male referred today for a voice evaluation given concerns of dysphonia s/p CABG. Per Dr. Richardson's assessment: Flexible laryngoscopy was performed. The nose was [...] supraglottic squeezing over the false vocal folds. ?? Functional Limitations: Pt is challenged to talk on the phone due to his voice. Pt struggles to talk to another person across the room, he cannot project. Pt with dysphonia/ aphonia chronically. He has occasional moments of improved voicing, however, he does not understand why it comes or goes. History of Problem: Onset: 2021 Duration of sx: Consistent. Additional sx: Habitual whisper. Current vocal habits: Pt lives by himself. He uses his voice at work. 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 His employee does the phone work for him, because of his voice. Pts perception of severity of voice problem: Voice Handicap Index 10 (VHI-10) A self-perceived assessment tool to identify the patient's severity of voice handicap. Rating scale: 0=Never; 1=Almost Never; 2=Sometimes; 3=Almost Always; 4=Always My voice makes it difficult for people to hear me 2 People have difficulty understanding me in a noisy room. 3 My voice difficulties restrict my personal and social life. 4 I feel left out of conversation because of my voice. 3 My voice problem causes me to lose income. 0 I feel as though I have to strain to produce voice. 2 The clarity of my voice is unpredictable. 2 My voice problem upsets me. 1 My voice makes me feel handicapped. 0 People ask What's wrong with your voice? 2 Total Score 19 A VHI-10 score >11 should be considered abnormal. References: Demetrius C. Urbano., Ivan, A. S., Jessie Granger., Vale Robert, & Lissy Zeng. (2004). Development and validationof the voice handicap index?10. The Laryngoscope, 114(9), 3406-7662. Emir, Eliud Andrews., Oneal Hernandez, Alvaro Armstrong, & Demetrius, C. A. (2012). Normative values for the voice handicap index-10. Journal of Voice, 26(4), 462-465. Prior Medical History: Problem: Yes / No Additional Information Allergies Yes Allergies Allergen Reactions ??? Albumin Products Anaphylaxis ??? Lisinopril Anaphylaxis and Other (See Comments) Ear buzzing, nausea, itching, tongue swelling Asthma no n/a Endocrine Problems/ obesity ? Pt used to be 280-290 lbs. He his now 210 lbs. Post nasal drip No n/a GERD no n/a Dysphagia yes Post operatively was having difficulty eating drinking. He continues to eat soft foods. He has trouble with his appetite. He has lost weight. He has started to eat more in the last few days. He has a change in his taste sensation. His taste sensation is improving. He particularly feels better with sweet. Other respiratory issues / trach Yes MD is adjusting his blood pressure medications because his HR has been lizbeth and his blood pressure has been low. He is following up with his MD tomorrow. This has caused him to be short of breath. Smoking / alcohol use Yes H/o alcohol use but none in 6 weeks. No smoking history. Environmetal exposure No n/a Trauma to face neck Yes Recent intubation. Psychological history No Says maybe a little depression. Major back surgery last April. Then got a staff infection. He has not been right for about a year. Surgical history yes Past Surgical History: Procedure Laterality Date ??? CARDIAC CATHERIZATION stent placement ? ? PRG CATH [facility] CORONARY ART W/INJ FOR ANGIO W/R HEART CATH IMG S&I N/A 01/13/2022 CORONARY ANGIOGRAPHY; W RHC performed by Polo Beckham MD at [facility] CATH LABS ??? PRO CABG, ARTERIAL, SINGLE N/A 01/21/2022 @CABG, USING ARTERIAL GRAFT;SINGLE ARTERIAL GRAFT (WRVU 33.75) performed by Danny Antonio MD at [facility] MAIN OR ??? PRO CABG, ARTERY-VEIN, TWO N/A 01/21/2022 @CABG, TWO VENOUS GRAFTS & ARTERIAL GRAFT (WRVU 7.93) performed by Danny Antonio MD at [facility] MAIN OR ??? PRO ENDOSCOPY W/VIDEO-ASST VEIN HARVEST, CABG Right 01/21/2022 ENDOSCOPIC HARVEST VEIN(S) FOR CABG (WRVU 0.31) performed by Danny Antonio MD at [facility] MAIN OR Additional Medical History Yes H/o knee surgery with complication of pulmonary embolism. PT for 1 1/2 year. Medications: Current Outpatient Medications: ??? metoprolol tartrate (Lopressor) 25 mg Tablet, Take 25 mg by mouth 2 times daily., Disp: , Rfl: ??? acetaminophen (Tylenol) 500 mg Tablet, Take 2 tablets by mouth every 6 hours as needed for Pain., Disp: , Rfl: ??? cloNIDine (Catapres) 0.2 mg Tablet, Take 1 tablet by mouth 2 times daily., Disp: 120 tablet, Rfl: 3 ??? glipiZIDE XL (Glucotrol XL) 2.5 [...] daily, Disp: 90 tablet, Rfl: 3 ??? nitroGLYcerin (Nitrostat) 0.4 mg Tablet, Sublingual, Place 1 tablet under the tongue every 5 minutes x3 as needed for chest pain-, Disp: 25 tablet, Rfl: 12 ??? amoxicillin (AMOXIL) 500 mg Capsule, TAKE 4 CAPSULES BY MOUTH 1 HOUR BEFORE APPOINTMENT, Disp: ,Rfl: ??? aspirin 81 mg Tablet, Delayed Release (E.C.), Take 162 mg by mouth daily. Increased by neurologist, Disp: , Rfl: ??? metFORMIN (GLUCOPHAGE) 1,000 mg Tablet, Take 1,000 mg by mouth 2 times daily (with meals)., Disp: , Rfl: Evaluation: Hearing/Vision: ??? Hearing and vision were adequate for testing. ??? Pt wears glasses all the time. Oral-Peripheral: ??? Right sided flaccid lingual movement. Tongue deviates to right on protrusion. Pt was previously unaware of this lingual weakness. Upon review of his scope on 01/31/2022 I suspect that there is some fullness of the base of tongue on the right which spills into the vallecular space on the right and nelson btly changes the contour of the epiglottis. I have messaged Dr. Richardson today regarding the observation of right sided lingual weakness. ??? No other right sided weakness. ??? Right shoulder is high and tight. He c/o of a knot in his right shoulder coming around to his right ribs. He has tingling in his right shoulder. Pt sees PT for Cardiac Rehab. He has not resumed PT for shoulder and back pain which he was being treated for previously. Respiration: ??? At rest patient was able to maintain relaxed, rhythmic breath pattern. ??? Breath support was typically clavicular conversational levels. ??? Inhalation was inaudible at conversational levels. ??? Engagement of belly breathing was observed intermittently during our visit. Voice: Subjective Assessment: The patient's voice was characterized by breathy/ aphonic voice. Pt is able to cough. Objective Assessment: Respiratory / Phonatory Coordination was assessed using measurements of Maximum Phonation Time (MPT) and S:Z ratio. Objective measurements were deferred. Patient was easily breathless in our work with vowel production. He was unable to sustain any voice for more than a few seconds at a time. Behavioral Observations: Pts right shoulder was visibly shortened compared to his left and it appeared that he had a pattern of leaning in the direction of the right shoulder which also promoted this shortening. Pt described tension in his neck on the right particularly and also in the side ribs on the right. Pt attributes this to his hospitalization. He participated in some gentle stretching today, however based on the severity of his complaints I did advise him to seek follow up with PT. Pt had difficulty with lip trill but could tongue trill impressively given his lingual asymmetry. Pt was able to achieve brief periods of voicing with a right head turn and cues for higher, more sing song pitch. Pt was easily winded after two-three attempts and we had to modulate our attempts accordingly. Pt did demonstrate some increased activation of voicing with a pulling exercise with his hands at midline. As the session progressed, he demonstrated better understanding of voicing vs. Whispering however his default is to whisper. Right head turn may have helped patient swallow more succinctly. Diagnostic Impressions: ??? 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 ??? Dysphagia ??? Prognosis for improvement is judged to be guarded. Recommendations / Plan of Care: ??? Skilled speech therapy was recommended for 4-6 additional visits in addition to return to ENT for discussion of vocal cord procedure and also of lingual findings. Pt was under the impression that he was to have a procedure today beyond an office voice assessment. Pt does not have access to telehealth easily. He wished to proceed with treatment in person and perhaps coordinated with other visits given the distance he must travel for care. We did review the option of telehealth if the patient had access at any point. ??? Education was provided to the patient re: findings and plan of care. ??? The patient was in agreement with these recommendations. ??? Avoid whispering ??? Use right head turn for voice practice and swallowing. ??? Consider pulling/ isometric exercise in seated voice practice. ??? Be mindful of getting too winded. Being winded will negatively impact voicing. ??? Play with Kazoo to see if voicing can be achieved with blowing. ??? Continue trilled /r/ practice as voicing achieved in this practice was noted and this is a healthy method of brining the voice forward. Pt may benefit from a modified barium swallow to further define his swallowing challenges and offer suggestions for improving his swallow safety/ comfort. Short Term Goals: Pt will demonstrate understanding and ability to use techniques to achieve voicing of 1-5 seconds induration. Pt will match voicing with right head turn to voicing at midline 8/10 trials per session. Pt will try to reduced whispering in functional speech contexts 80% of the time. Pt will demonstrate understanding and compliance with a daily home program. Cabinetmaker Apprentice Goals: Pt will demonstrate normal results on the VHI-10. Pt will achieve enough voicing to participate in objective measurements deferred today. Pt will demonstrate improved functional voice use at work, home and in the community. If there are any questions about this report, please do not hesitate to contact me. Thank you very much for this referral. Cary Lam, M.S., [facility]-COMMISSIONING SPECIALIST Speech-Language Pathologist Pager # [phone] documented in this encounter Plan of Treatment Upcoming Encounters Date Type Specialty Care Team Description 03/25/2022 Anesthesia Event Surgery Catrachita Baez MD [facility] ANESTHESIOLOGY [place], [place] [address] (Wo rk) 12/15/2022 Office Visit Cardiology Damián Hart MD [facility] [place], [place] [address] (Wo rk) 03/25/2050 Hospital Encounter Surgery Citlalli Richardson MD Vocal cord paralysis [facility] OTOLARYNGOLOGY [place], [place] [address] (Wo rk) documented as of this encounter Procedures Procedure Name Priority Date/Time Associated Diagnosis Comme nts COMMISSIONING SPECIALIST PLAN OF CARE Routine 03/04/2022 10:41 AM EDT Vocal cord pa ralysis CERT/RE-CERT documented in this encounter Visit Diagnoses Diagnosis Vocal cord paralysis Paralysis of vocal cords or larynx, unsp ecified Vocal cord paralysis - Primary Paralysis of vocal cords or larynx, unsp ecified documented in this encounter Care Teams Curtain Mender Relationship Specialty Start Date End Date Vladimir Muñoz DO PCP - General Family Medicine 01/19/18 [address] [place] [address] documented as of this encounter
--- OUTSIDE RECORDS SUMMARY | 2022-08-05 09:03 | XMS_ITS | Encounter Summary ---
:1955 Author Organization [place] [address] Care Team Providers Name Role Phone Vladimir Muñoz DO Primary Care Provider Encounter Details Date Type Department Care Team Description 03/06/2022 Office Visit Cardiac Surgery at Danny Antonio [facility] (arteriosclerotic [facility] MD Bess cardiovascular disease) [facility] [address] [place], [place] CARDIOTHORACIC [address] SURGERY [phone] [place], [place] [address] Social History Tobacco Use Types [...] Sign Reading Time Taken Comments Blood Pressure 123/75 03/06/2022 2:08 PM EDT Pulse 83 03/06/2022 2:08 PM EDT Temperature - - Respiratory Rate - - Oxygen Saturation 99% 03/06/2022 2:08 PM EDT Inhaled Oxygen Concentration - - Weight 83.4 kg (183 lb 14.4 oz) 03/06/2022 2:08 PM EDT Height 182.9 cm (6') 03/06/2022 2:08 PM EDT Reported Body Mass Index 24.94 03/06/2022 2:08 PM EDT documented in this encounter Progress Notes Danny Antonio MD - 03/06/2022 2:40 PM EDT To: MD Vladimir Rodriguez, DO Re: Burton Newman ( 1955) Dear Garry, It was a pleasure to see Mr. Mcnair today as a follow-up visit from his bypass grafting complicated by anaphylactic shock. He presents ambulatory to the office looks and states that he feels well, hedenies effort dyspnea or angina. He remains hoarse from a paralyzed vocal cord. He has seen ENT for follow-up with this. His postoperative chest x-ray is clear. On examination he is a blood pressure 123/75, his heart rates in the 80s at sinus by palpation. His midline sternal wound has healed well the underlying sternum is firm to palpation there is no click. 's chest is clear to auscultation. There is no dependent edema. In summary, Mr. Mcnair is recovered well following his bypass surgery. We are going to discharge him from our service at this time and leave him in your care. In the interim should there be anything further that I can provide please do not hesitate to contact my office. Best personal regards, Danny Antonio MD [phone] documented in this encounter Plan of Treatment Upcoming Encounters Date Type Specialty Care Team Description 03/25/2022 Anesthesia Event Surgery Catrachita Baez MD [facility] ANESTHESIOLOGY [place], [place] [address] (Wo rk) 12/15/2022 Office Visit Cardiology Damián Hart MD [facility] [address] [place] [address] (Wo rk) 03/25/2050 Hospital Encounter Surgery Citlalli Richardson MD Vocal cord paralysis [facility] OTOLARYNGOLOGY [place], [place] [address] (Wo rk) documented as of this encounter Procedures Procedure Name Priority Date/Time Associated Diagnosis Comme nts EKG 12-LEAD Routine 03/06/2022 2:16 PM ASCVD (arterioscleroti c Results for this EDT cardiovascular disease) proc edure are in the results section. documented in this encounter Results EKG 12 Lead (03/06/2022 2:16 PM EDT) Component Value Ref Range Test Analysis Performed Pathologis t Method Time At Signature Ventricular rate 85 BPM MUSE SYSTEM Atrial Rate 85 BPM MUSE SYSTEM P-R Interval 180 ms MUSE SYSTEM QRS Duration 82 ms MUSE SYSTEM Q-T Interval 372 ms MUSE SYSTEM QTC Calculated 442 ms MUSE SYSTEM (Bezet) Calculated P Proctor 56 degrees MUSE SYSTEM Calculated R Proctor 40 degrees MUSE SYSTEM Calculated T Proctor -18 degrees MUSE SYSTEM INTERPRETATION Normal sinus rhythm MUSE SYSTEM T wave abnormality, consider inferolateral ischemia Abnormal ECG When compared with ECG of 21-JAN-2022 12:37, Criteria for Inferior infarct are no longer Present ST no longer elevated in Lateral leads T wave inversion now evident in Inferior leads T wave inversion now evident in Lateral leads Confirmed by MD Zhang Danette ([id number]) on 03/06/2022 5:33:51 PM Specimen Anatomical Collection Method Collection Time Receive d Time (Source) Location / / Volume Laterality 03/06/2022 2:16 PM 5:33 EDT PM EDT Barbara Gomez RUBIO ECG ORDERABLES Performing Organization Address City/State/ZIP Code Phon e Number MUSE SYSTEM documented in this encounter Visit Diagnoses Diagnosis Vocal cord paralysis Paralysis of vocal cords or larynx, unsp ecified ASCVD (arteriosclerotic cardiovascular d isease) Unspecified cardiovascular disease documented in this encounter Care Teams Boatswains Mate Relationship Specialty Start Date End Date Vladimir Muñoz DO PCP - General Family Medicine 01/19/18 [address] [place] [address] documented as of this encounter
--- OUTSIDE RECORDS SUMMARY | 2022-08-05 09:03 | XMS_ITS | Encounter Summary ---
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, Danny Antonio MD [facility] Rubber Goods Tester Rehab [facility] [place] [address] [place] [address] Fax: Referral ID Status Reason Start Date Expiration Visits Visits Date Requested Authorized [id number] Authorized Consult, 01/31/2022 01/31/2023 100 100 Test & Treat Encounter Details Date Type Department Care Team Description 04/01/2022 Office Visit Speech Therapy at [facility] Voc al cord paralysis [facility] RADIATION ONCOLOGY NURSE [facility] [address] [place], [place] PHYSICAL MEDICINE & [phone] REHABILITAT [phone] [place] [address] Social History Tobacco Use Types Packs/Day Years [...] of this encounter Progress Notes Cary Lam, RADIATION ONCOLOGY NURSE - 04/01/2022 1:00 PM EDT Speech-Language Pathology Treatment Session 04/01/2022 Total Treatment Time: 55 minutes Total Timed Code Treatment: 0 minutes S: Pt reported that from a general health standpoint, he feels better than he has in years. He cancelled his surgery for his voice last week due to concerns about the outcomes and anesthesia. Pt meeting with anesthesia today and then will have a face to face meeting with Dr. Richardson on April 15. Hewill have an allergy test on 05/06/22. Pt is relieved that he is not having surgery at this time but is still interested in the informationto help guide surgical decision making. Pt has had episodes of accidental voicing but does not replicate this voicing easily. Pt reported a rawness in his throat and points to his thyroid notch. Whisper is still his default sound. Pt reported he continues to be frustrated about his voice in face to face communication. O: Pt seen for treatment of dysphonia. Pt will demonstrate understanding and ability to use techniques to achieve voicing of 1-5 seconds induration. Hello - able to get greater vibration at a low pitch. Ongoing education and training about voicing. Difficult to achieve voicing without pushing/ head turn. Pt will match voicing with right head turn to voicing at midline 8/10 trials per session. N/a today. Head turn had less of an effect today. Pt will try to reduce whispering in functional speech contexts 80% of the time.Education ongoing. Pthas difficulty avoiding whispering. Counted 1-10, saying single words with subtle voicing/ whisper. Pt understands difference between whisper and voice. Pt will demonstrate understanding and compliance with a daily home program. Education ongoing re: gentle stretching. Pt indicated he no longer feels as breathless/ dizzy as he did with voice exercises in last visit. A: Pt with good response to treatment. Emerging voicing at a higher pitch than normal for patient. Improved attempts at voicing without strain today. P: Pt to practice intentionally turning on his voice. Pt to return for 2-4 additional visits. Pt indicated agreement with treatment plan. Cary Lam MS [facility])-RADIATION ONCOLOGY NURSE Speech-Language Pathologist Outpatient Rehabilitation [facility] Pager # [phone] documented in this encounter Plan of Treatment Upcoming Encounters Date Type Specialty Care Team Description 03/25/2022 Anesthesia Event Surgery Catrachita Baez MD [facility] MEDICAL [facility] ANESTHESIOLOGY [place], [place] [address] (Wo rk) 12/15/2022 Office Visit Cardiology Damián Hart MD [facility] [place], [place] [address] (Wo rk) 03/25/2050 Hospital Encounter Surgery Citlalli Richardson MD Vocal cord paralysis [facility] OTOLARYNGOLOGY [place], [place] [address] (Wo rk) documented as of this encounter Visit Diagnoses Diagnosis Vocal cord paralysis Paralysis of vocal cords or larynx, unsp ecified Vocal cord paralysis Paralysis of vocal cords or larynx, unsp ecified documented in this encounter Care Teams Rubber Stamps And Dies Supervisor Relationship Specialty Start Date End Date Vladimir Muñoz DO PCP - General Family Medicine 01/19/18 [address] [place] [address] documented as of this encounter
--- OUTSIDE RECORDS SUMMARY | 2022-08-05 09:03 | XMS_ITS | Encounter Summary ---
:1955 Author Organization [facility] [address] Care Team Providers Name Role Phone Vladimir Muñoz DO Primary Care Provider Encounter Details Date Type Department Care Team Description 04/01/2022 Anesthesia Event Same Day at [facility] Maggie Godfrey, [facility] [place] [address] [address] [phone] [place] [address] (Wo rk) Anesthesia Record Procedure Summary Procedure Name Responsible Anesthesia Start Anesthesia Stop Anesthesiologist Time Time AMB REFERRAL TO GENERAL ANESTHESIOLOGY Events No events on file. No medications on file. Agents No agents on file. Blood No blood administrations on file. Lines, Drains, and Airways No LDAs on file. documented in this encounter Social History Tobacco Use Types Packs/Day Years [...] on file documented as of this encounter OR Notes Anesthesia Preprocedure Evaluation - Maggie Godfrey, FUR TINTER - 04/01/2022 3:09 PM EDT Images from the original note were not included. Pre-Anesthesia Evaluation for: Burton Mcnair Jr. a 67 y.o. male. Patient Active Problem List Diagnosis Date Noted ??? Vocal cord paralysis 02/20/2022 ??? CAD (coronary artery disease) 01/18/2022 ??? Acquired deformity of foot 03/19/2020 ??? Plantar fasciitis of left foot 03/19/2020 ??? Diabetes mellitus ??? Hyperlipidemia ??? Hyperpiesia ??? ASCVD (arteriosclerotic cardiovascular disease) 09/18/2016 Past Medical History: Diagnosis Date ??? ASCVD (arteriosclerotic cardiovascular disease) 09/18/2016 MIBI 2008: 10:30, 1:30 Stage IV [place] 12 METS Max HR: 153 > 85 % PMR(141) Max BP: 162/[address] change: none Reason for Termination: fatigue, no CP Imaging: small partially reversible infero-lateral defect EF 68% Impression: small area of ischemia at high work level ??? CAD (coronary artery disease) ??? Coronary artery disease ??? Diabetes ??? Diabetes mellitus ??? Hyperlipidemia ??? Hypertension Past Surgical History: Procedure Laterality Date ??? CARDIAC CATHERIZATION stent placement ? ? PRG CATH PLAK CORONARY ART W/INJ FOR ANGIO W/R HEART CATH IMG S&I N/A 01/13/2022 CORONARY ANGIOGRAPHY; W RHC performed by Polo Beckham MD at [facility] CATH LABS ??? PRO CABG, ARTERIAL, SINGLE N/A 01/21/2022 @CABG, USING ARTERIAL GRAFT;SINGLE ARTERIAL GRAFT (WRVU 33.75) performed by Danny Antonio MD at [facility] MAIN OR ??? PRO CABG, ARTERY-VEIN, TWO N/A 01/21/2022 @CABG, TWO VENOUS GRAFTS & ARTERIAL GRAFT (WRVU 7.93) performed by Danny Antonio MD at [facility] MAIN OR ??? PRO ENDOSCOPY W/VIDEO-ASST VEIN HARVEST, CABG Right 01/21/2022 ENDOSCOPIC HARVEST VEIN(S) FOR CABG (WRVU 0.31) performed by Danny Antonio MD at [facility] MAIN OR Social History Tobacco Use ??? Smoking status: Former Smoker Types: Cigarettes ??? Smokeless tobacco: Never Used ??? Tobacco comment: quit at age 17 Substance Use Topics ??? Alcohol use: Yes Alcohol/week: 2.0 standard drinks Types: 2 Glasses of wine per week Comment: beer on weekends Social History Substance and Sexual Activity Drug Use No Allergies Allergen Reactions ??? Albumin Products Anaphylaxis ??? Lisinopril Anaphylaxis and Other (See Comments) Ear buzzing, nausea, itching, tongue swelling Medications: MAR and/or home medications have been reviewed. Physical Exam: Preprocedure Vitals Current as of 04/01/22 1509 BP: 153/90 Pulse: 96 Resp: SpO2: 97 Temp: Height: 182.9 cm (6') (04/01/22) Weight: 85.9 kg (189 lb 6.4 oz) (04/01/22) BMI: 25.68 IBW: 77.6 kg (171 lb 1.9 oz) Last edited 04/01/22 1430 by DW Airway Assessment: Mallampati: II TM distance: >3 FB Neck ROM: full Cardiovascular Assessment: Rhythm: regular Rate: normal Pulmonary Assessment: breath sounds clear to auscultation Dental Assessment: Misc Assessment: Last Filed Perioperative Cognitive Screening Value Time User AD8 Total Score: 0 01/17/2022 4:00 PM Brunilda Mendoza RN AD8 Informant: Patient 01/17/2022 4:00 PM Brunilda Mendoza RN CFS Frailty Score: 3 01/17/2022 4:00 PM Brunilda Mendoza RN Anesthesia Plan Anesthesia Screening Note: Date and Time of Entry: 04/01/2022 3:10 PM Entered By: Maggie Godfrey APRN Reason for Evaluation: Surgeon Request Other Reason: Concerns regarding allergic reaction after surgery in January Additional/Outside Records Requested? Requested medical information from outside organization. From Where? [facility] discharge summary from April 2021 Findings, Assessment and Plan: 67 y.o. male presenting for pre-anesthesia consultation prior to vocal cord injection with Dr. Richardson for vocal cord paralysis, date TBD. MEDICAL HISTORY: #CAD s/p CABGx3 on 01/21/22, POD 0 developed hypotension and diffuse urticarial rash, allergy consulted and suspected anaphylactic reaction to albumin although other potential causes could be an allergy to ceftriaxone or vecuronium. Recommended avoiding these medications and allergy testing after 4-6 weeks after discharge. Patient has an appointment for this testing 05/06/22 #HTN: on metoprolol and amlodipine, blood pressure elevated (153/90) today but patient reports he iscurrently in cardiac rehab three days a week and his blood pressure is checked at these appointments, bp has been well controlled, typically 130/80 #HLD: atorvastatin #DM: well controlled on glipizide and metformin, patient reports bgs between 105 and 140 #GERD: was taking omeprazole but recently stopped it. States he was told at voice therapy there was evidence of reflux and he plans to discuss restarting this medication with his PCP Denies chest pain, palpitations, orthopnea, syncope or SOB. Had hoarseness since surgery in January. Also reports difficulty swallowing liquids and foods althoughthis has improved some since starting voice therapy. Had spine surgery in April 2021 at [facility]. Reports he developed a staph infection afterwards and required IV antibiotics. States he developed a rash on his legs and thinks this was from the antibiotics he was on. Unsure what antibiotic he was receiving. ANESTHETIC HISTORY: No previous known complications related to anesthesia. Allergies reviewed Labs reviewed Meds reviewed FUNCTIONAL EXERCISE TOLLERANCE: >4METS EK03/06/22 Normal sinus rhythm. T wave abnormality, consider inferolateral ischemia TRANSESOPHAGEAL ECHOCARDIOGRAM/OR: 01/21/22 The left ventricle is of normal size. Wall thickness is normal. No distinct wall motion abnormalities are identified. No significant valvular regurgitation noted on this study. This was essentially a normal study. Post procedure LVEF estimated at 55%. Overall: Burton Mcnair Jr. is a 67 y.o. male with a past medical hx significant for CAD s/p CABGx3 in 01/2021, HTN, HLD and DM well controlled on oral medications who was seen for a pre-anesthesia consultation prior to vocal cord injection with Dr. Richardson. The patient developed an anaphylactic reaction on POD 0 following his CABG. He was evaluated by allergy they recommended avoiding albumin, ceftriaxone and vecuronium until he has follow-up allergy testing. This testing is scheduled for 05/06/22 and I recommended he keep this appointment. We discussed he will be unlikely to require albumin or antibiotics for this upcoming procedure. Discussed his possible allergy to vecuronium with attending anesthesiologist Dr. Lamb who advised this can be avoided for his upcoming procedure. Patient also reports a possible previous allergic reaction to an antibiotic after spine surgery last year. Will request these records so we can update his chart. Discussed the risks, benefits and alternatives of anesthesia. All question's answered to the patient's satisfaction. Maggie Godfrey APRN 04/01/2022 Update (04/09/22): Discharge summary from [facility] reviewed and scanned under media. Patient was admitted 05/16/21 after developing a vasculitis rash on his legs while receiving cefazolin for a wound infection after a lumbar decompression L3-4 and L4-5. 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 documented in this encounter Plan of Treatment Upcoming Encounters Date Type Specialty Care Team Description 03/25/2022 Anesthesia Event Surgery Catrachita Baez MD [facility] ANESTHESIOLOGY [place], [place] [address] (Wo rk) 12/15/2022 Office Visit Cardiology Damián Hart MD [facility] [address] [place] [address] (Wo rk) 03/25/2050 Hospital Encounter Surgery Citlalli Richardson MD Vocal cord paralysis [facility] OTOLARYNGOLOGY [place], [place] [address] (Wo rk) documented as of this encounter Visit Diagnoses Not on filedocumented in this encounter Care Teams E/M Engineer Relationship Specialty Start Date End Date Vladimir Muñoz DO PCP - General Family Medicine 01/19/18 [address] [place] [address] documented as of this encounter
--- OUTSIDE RECORDS SUMMARY | 2022-08-05 09:03 | XMS_ITS | Encounter Summary ---
:1955 Author Organization [facility] [place] [address] Care Team Providers Name Role Phone Vladimir Muñoz DO Primary Care Provider Encounter Details Date Type Department Care Team Description 02/03/2022 Telephone Otolaryngology at [facility] [place] [address] Social History Tobacco Use Types Packs/Day [...] this encounter Miscellaneous Notes Telephone Encounter - Joana Finley - 02/03/2022 8:43 AM EDT I contacted patient to try to schedule a 1-3 week follow up with Dr. Richardson. Patient was unable to talkwell and states he does not use his [employer] portal. He took down our call back number to call back later with another person to speak on his behalf. Telephone Encounter - TusharJoana - 02/03/2022 8:43 AM EDT ----- Message from Nilda Lilly sent at 02/03/2022 8:36 AM EDT ----- Regarding: FW: Appointment ----- Message ----- From: Bhakti Paredes MD Sent: 01/31/2022 11:23 AM EDT To: [facility] Otolaryngology Seismic Engineer Subject: Appointment Hi, can we make him a f/u visit with Dr. Richardson in 1-3 weeks ? Thanks ! CCright vocal cord paresis documented in this encounter Plan of Treatment Upcoming Encounters Date Type Specialty Care Team Description 03/25/2022 Anesthesia Event Surgery Catrachita Baez MD [facility] ANESTHESIOLOGY [place], [place] [address] (Wo rk) 12/15/2022 Office Visit Cardiology Damián Hart MD [facility] [place], [place] [address] (Wo rk) 03/25/2050 Hospital Encounter Surgery Citlalli Richardson MD Vocal cord paralysis [facility] OTOLARYNGOLOGY [place], [place] [address] (Wo rk) documented as of this encounter Visit Diagnoses Not on filedocumented in this encounter Care Teams Manager Community Relationship Specialty Start Date End Date Vladimir Muñoz DO PCP - General Family Medicine 01/19/18 [address] [place] [address] documented as of this encounter
--- OUTSIDE RECORDS SUMMARY | 2022-08-05 09:03 | XMS_ITS | Encounter Summary ---
:1955 Author Organization [facility] [place] [address] Care Team Providers Name Role Phone Vladimir Muñoz DO Primary Care Provider Encounter Details Date Type Department Care Team Description 03/06/2022 Hospital Encounter XRay at [facility], ASCVD [address] [place] [address] Barbara APRN (arteriosclerotic [facility] cardiovascular [phone] [place] [address] DR byers) [phone] [place] [address] Social History Tobacco Use Types Packs/Day Years [...] on file documented as of this encounter Medications at Time of Discharge Medication Sig Dispensed Refills Start Date End Date metoprolol tartrate Take 50 mg by mouth 0 022 (Lopressor) 50 mg Tablet 2 times daily (with meals). Take with food. acetaminophen (Tylenol) Take 2 tablets by 0 01/31 500 mg Tablet mouth every 6 hours as needed for Pain. glipiZIDE XL (Glucotrol Take 2.5 mg by mouth 0 XL) 2.5 mg Tablet daily. Extended Rel 24 hr omeprazole (PriLOSEC) 40 Take 40 mg by mouth 0 mg Capsule, Delayed daily. Release(E.C.) nitroGLYcerin Place 1 tablet under 25 tablet 12 02/13/2020 (Nitrostat) 0.4 mg the tongue every 5 Tablet, minutes x3 as needed SublingualIndications: for chest pain- ASCVD (arteriosclerotic cardiovascular disease) amoxicillin (AMOXIL) 500 TAKE 4 CAPSULES BY 0 mg Capsule MOUTH 1 HOUR BEFORE APPOINTMENT aspirin 81 mg Tablet, Take 162 mg by mouth 0 Delayed Release (E.C.) daily. Increased by neurologist metFORMIN (GLUCOPHAGE) Take 1,000 mg by 0 1,000 mg Tablet mouth 2 times daily (with meals). cloNIDine (Catapres) 0.2 Take 1 tablet by 120 tablet 3 01/3104/29/2022 mg Tablet mouth 2 times daily. amLODIPine (Norvasc) 10 take 1 tablet by 90 tablet 3 202006/16/2022 mg TabletIndications: mouth daily Essential hypertension atorvastatin (Lipitor) take 1 tablet by 90 tablet 3 021 06/30/2022 80 mg TabletIndications: mouth once daily ASCVD (arteriosclerotic cardiovascular disease) documented as of this encounter Plan of Treatment Upcoming Encounters Date Type Specialty Care Team Description 03/25/2022 Anesthesia Event Surgery Catrachita Baez MD [facility] ANESTHESIOLOGY [place], [place] [address] (Wo rk) 12/15/2022 Office Visit Cardiology Damián Hart MD [facility] [place], [place] [address] ( rk) 03/25/2050 Hospital Encounter Surgery Citlalli Richardson MD Vocal cord paralysis [facility] OTOLARYNGOLOGY [place], [place] [address] (Wo rk) documented as of this encounter Procedures Procedure Name Priority Date/Time Associated Diagnosis Comme nts XR CHEST PA AND Routine 03/06/2022 2:02 PM ASCVD (arterioscler otic Results for this LATERAL EDT cardiovascular disease) proc edure are in the results section. documented in this encounter Results XR Chest PA & Lateral (Generic) (03/06/2022 2:02 PM EDT) Anatomical Region Laterality Modality Chest N/A Digital Radiography Specimen (Source) Anatomical Location Collection Method / Collectio n Time Received Time / Laterality Volume Impressions 03/06/2022 2:59 PM EDT No acute cardiopulmonary abnormality sta tus post coronary artery bypass surgery. Thank you for letting us participate in the care of this patient. ??If you are a health care provider and have any questi ons regarding this report, please contact the number below. ??For patients who have questions please contact the health career center director that requested your imaging first. ? Electronically signed by: Polo Dobbins MD, [facility] ([phone]), at 03/06/2022 2:59 PM Narrative 03/06/2022 2:59 PM EDT EXAMINATION: ??XR CHEST PA AND LATERAL (GENERIC)] CLINICAL HISTORY: ?? 67 years, Male, s/p cabg ? TECHNIQUE: PA and lateral views chest, (2 views). COMPARISON: Preoperative chest 01/17/2022, postoperati ve chest radiograph 01/21/2022, 01/27/2022 FINDINGS: The heart is normal in size post median sternotomy. Dense coronary calcifications overlap the heart on the lateral view similar to the preoperative study. The chest overall has normalized. Lungs are clear. Vascularity is normal. There is no significant effusion. Degenerative spondylosis is stable in th e thoracic spine. ?Abdominal gas pattern is normal, as visualized. Procedure Note Polo Dobbins MD - 03/06/2022Formatti ng of this note might be different from the original. EXAMINATION: XR CHEST PA AND LATERAL (GE NERIC)] CLINICAL HISTORY: 67 years, Male, s/p ca bg TECHNIQUE: PA and lateral views chest, (2 views). COMPARISON: Preoperative chest 01/17/2022, postoperati ve chest radiograph 01/21/2022, 01/27/2022 FINDINGS: The heart is normal in size post median sternotomy. Dense coronary calcifications overlap the heart on the lateral view similar to the preoperative study. The chest overall has normalized. Lungs are clear. Vascularity is normal. There is no significant effusion. Degenerative spondylosis is stable in th e thoracic spine. Abdominal gas pattern is normal, as visualized. IMPRESSION No acute cardiopulmonary abnormality sta tus post coronary artery bypass surgery. Thank you for letting us participate in the care of this patient. If you are a health care provider and have any questi ons regarding this report, please contact the number below. For patients w ho have questions please contact the health career center director that requested your imaging first. Electronically signed by: Polo Dobbins MD, [facility] ([phone]), at 03/06/2022 2:59 PM Barbara Gomez [facility]BIO IMG DX ORDERABLES documented in this encounter Visit Diagnoses Diagnosis Vocal cord paralysis Paralysis of vocal cords or larynx, unsp ecified ASCVD (arteriosclerotic cardiovascular d isease) Unspecified cardiovascular disease documented in this encounter Care Teams Instructional Support Assistant Relationship Specialty Start Date End Date Vladimir Muñoz, PCP - General Family Medicine 01/19/18 [address] [place] [address] documented as of this encounter
--- OUTSIDE RECORDS SUMMARY | 2022-08-05 09:04 | XMS_ITS | Encounter Summary ---
:1955 Author Organization [facility] [place] [address] Care Team Providers Name Role Phone Vladimir Muñoz DO Primary Care Provider Encounter Details Date Type Department Care Team Description 01/29/2022 Orders Only Cardiac Surgery Patricia ASCVD (arteriosclerotic [facility] RUBIO Jimenez cardiovascular disease) [facility] [id number] CARDIAC SURGERY [phone] [place], [place] [address] Social History Tobacco Use Types [...] 03/25/2022 Anesthesia Event Surgery Catrachita Baez MD [facility] [address] ANESTHESIOLOGY [place], [place] [address] (Wo rk) 12/15/2022 Office Visit Cardiology aDmián Hart MD [facility] [place] [address] (Wo rk) 03/25/2050 Hospital Encounter Surgery Citlalli Richardson MD Vocal cord paralysis [facility] OT[facility] [place], [place] [address] (Wo rk) documented as of this encounter Results EKG 12 Lead (03/06/2022 2:16 PM EDT) Component Value Ref Range Test Analysis Performed Pathologis t Method Time At Signature Ventricular rate 85 BPM MUSE SYSTEM Atrial Rate 85 BPM MUSE SYSTEM P-R Interval 180 ms MUSE SYSTEM QRS Duration 82 ms MUSE SYSTEM Q-T Interval 372 ms MUSE SYSTEM QTC Calculated 442 ms MUSE SYSTEM (Bezet) Calculated P [place] 56 degrees MUSE SYSTEM Calculated R [place] 40 degrees MUSE SYSTEM Calculated T [place] -18 degrees MUSE SYSTEM INTERPRETATION Normal sinus rhythm MUSE SYSTEM T wave abnormality, consider inferolateral ischemia Abnormal ECG When compared with ECG of 21-JAN-2022 12:37, Criteria for Inferior infarct are no longer Present ST no longer elevated in Lateral leads T wave inversion now evident in Inferior leads T wave inversion now evident in Lateral leads Confirmed by MD Vicente, Rolanda ([id number]) on 03/06/2022 5:33:51 PM Specimen Anatomical Collection Method Collection Time Receive d Time (Source) Location / / Volume Laterality 03/06/2022 2:16 PM 5:33 EDT PM EDT Barbara Gomez [facility] ECG ORDERABLES Performing Organization Address City/State/ZIP Code Phon e Number MUSE SYSTEM XR Chest PA & Lateral (Generic) (03/06/2022 [...] who have questions please contact the health life care planner that requested your imaging first. ? Electronically signed by: Polo Dobbins MD, [facility] ([phone]), at 03/06/2022 2:59 PM Narrative 03/06/2022 2:59 [...] ho have questions please contact the health life care planner that requested your imaging first. Electronically signed by: Polo Dobbins MD, [facility] ([phone]), at 03/06/2022 2:59 PM Barbara Patricia [place] IMG DX ORDERABLES documented in this encounter Visit Diagnoses Diagnosis ASCVD (arteriosclerotic cardiovascular d isease) Unspecified cardiovascular disease Vocal cord paralysis Paralysis of vocal cords or larynx, unsp ecified ASCVD (arteriosclerotic cardiovascular d isease) Unspecified cardiovascular disease documented in this encounter Care Teams Contracting Executive Relationship Specialty Start Date End Date Vladimir Muñoz DO PCP - General Family Medicine 01/19/[address] [place] [address] documented as of this encounter
--- OUTSIDE RECORDS SUMMARY | 2022-08-05 09:04 | XMS_ITS | Encounter Summary ---
:1955 Author Organization [facility] [place] [address] Care Team Providers Name Role Phone Vladimir Muñoz DO Primary Care Provider Reason for Referral Consultation (Routine) - Closed Specialty Diagnoses / Procedures Referred By Contact Refer red To Contact Diagnoses S/P CABG x 4 Danny Jewell MD [facility] [place] [address] Referral ID Status Reason Start Date Expiration Date Visits V isits Requested Authorized [id number] Closed Consult, 01/31/2022 07/30/2022 36 36 Test & Treat Reason for Visit Auth/Cert Specialty Diagnoses / Procedures Referred By Contact Refer red To Contact Diagnoses CAD (coronary artery disease) CAD Procedures PRO CABG, ARTERIAL, SINGLE PRO ENDOSCOPY W/VIDEO-ASST VEIN HARVEST, CABG PRO CABG, ARTERY-VEIN, TWO @CABG, USING ARTERIAL GRAFT;SINGLE ARTERIAL GRAFT (WRVU 33.75) ENDOSCOPIC HARVEST VEIN(S) FOR CABG (WRVU 0.31) @CABG, TWO VENOUS GRAFTS & ARTERIAL GRAFT (WRVU 7.93) Referral ID Status Reason Start Date Expiration Date Visits Requ ested Visits Authorized [id number] 1 1 Encounter Details Date Type Department Care Team Description 01/21/2022 - Hospital Encounter Intermediate Cardiac Kamliah Jewell oronary artery disease involving shinnecock coronary artery of shinnecock heart, unspecified whether angina present; 01/31/2022 Care Unit Gabrielle Kellogg MD S/P CABG x 4 [facility] [address] [place] [id number] [phone] Social History Tobacco Use Types Packs/Day Years [...] Sign Reading Time Taken Comments Blood Pressure 137/73 01/31/2022 11:40 AM EDT Pulse 73 01/31/2022 11:40 AM EDT Temperature 36.6 ??C (97.9 ??F) 01/31/2022 11:40 AM EDT Respiratory Rate 19 01/31/2022 11:40 AM EDT Oxygen Saturation 93% 01/31/2022 11:40 AM EDT Inhaled Oxygen Concentration - - Weight 99.2 kg (218 lb 11.1 oz) 01/31/2022 3:52 AM EDT Height 182.9 cm (6' 0.01) 01/21/2022 12:15 PM EST Body Mass Index 29.65 01/21/2022 12:15 PM EST documented in this encounter Discharge Summaries Manan Lovelace PA - 01/31/2022 12:30 PM EDT Inpatient - Discharge Summary Patient Name: Vinod Ochoa Jr. Patient Age: 66 y.o. Birthdate: 1955 Language: Honduran Race: White Ethnicity: Not nor Admit Date: 01/21/2022 Discharge Date: 01/31/22 Attending Physician: Danny Jewell MD Follow-up Recommendations for Providers: ??? Please continue routine management of cardiovascular risk factors including blood pressure, lipids, glucose, etc. ??? Please note any changes to medications. ??? Patient to follow up with PCP, Vladimir Muñoz DO, in 1-2 weeks. ??? Patient to follow up with Stick Puller, Dr. Hart, in 2 weeks. ??? Patient to follow up with Cardiac Surgeon, Dr. Danny Jewell, with a chest x-ray, EKG. ??? Patient to follow up with Patient to follow up with Allergy medicine, Otolaryngology and Speech Language pathology as scheduled. Inpatient Provider Contact Information: [facility] [place] [facility] [address] FAX [phone] Discharge Diagnoses (Hospital Problems) Primary Diagnoses: CAD s/p CABGx3 01/21/22 Secondary Diagnoses: Active Hospital Problems Diagnosis ??? CAD (coronary artery disease) Resolved Hospital Problems No resolved problems to display. Other Diagnoses (Chronic Problems): Active Non-Hospital Problems Diagnosis ??? Acquired deformity of foot ??? Plantar fasciitis of left foot ??? Diabetes mellitus ??? Hyperlipidemia ??? Hyperpiesia ??? ASCVD (arteriosclerotic cardiovascular disease) Discharged to: Patient discharged to home Functional and Cognitive Status: At baseline Discharge Conditions/Prognosis: Stable Past Medical History: Diagnosis Date ??? ASCVD [...] CATHERIZATION stent placement ? ? PRG CATH [facility] CORONARY ART W/INJ FOR ANGIO W/R HEART CATH IMG S&I N/A 01/13/2022 CORONARY ANGIOGRAPHY; W RHC performed by Polo Beckham MD at [facility] CATH LABS ??? PRO CABG, ARTERIAL, SINGLE N/A 01/21/2022 @CABG, USING ARTERIAL GRAFT;SINGLE ARTERIAL GRAFT (WRVU 33.75) performed by Danny Jewell MD at [facility] MAIN OR ??? PRO CABG, ARTERY-VEIN, TWO N/A 01/21/2022 @CABG, TWO VENOUS GRAFTS & ARTERIAL GRAFT (WRVU 7.93) performed by Danny Jewell MD at [facility] MAIN OR ??? PRO ENDOSCOPY W/VIDEO-ASST VEIN HARVEST, CABG Right 01/21/2022 ENDOSCOPIC HARVEST VEIN(S) FOR CABG (WRVU 0.31) performed by Danny Jewell MD at [facility] MAIN OR Prior To Admission Medications Medications Prior to Admission Medication Sig Dispense Refill Last Dose ??? [DISCONTINUED] mupirocin (Bactroban) 2 % Ointment Apply 1 each topically 2 times daily. Apply a small amount to each nostril twice daily. Begin 5 days prior to the day of surgery. 22 g 0 01/20/2022 at Unknown time ??? glipiZIDE XL (Glucotrol XL) 2.5 mg Tablet Extended Rel 24 hr Take 2.5 mg by mouth daily. 01/20/2022 at Unknown time ??? omeprazole (PriLOSEC) 40 mg Capsule, Delayed Release(E.C.) Take 40 mg by mouth daily. 01/21/2022 at Unknown time ??? amLODIPine (Norvasc) 10 mg Tablet take 1 tablet by mouth daily 90 tablet 3 01/21/2022 at Unknown time ??? atorvastatin (Lipitor) 80 mg Tablet take 1 tablet by mouth once daily 90 tablet 3 01/20/2022 at Unknown time ??? carvediloL (Coreg) 25 mg Tablet Take 1 tablet by mouth 2 times daily (with meals). 180 tablet 3 01/21/2022 at Unknown time ??? aspirin 81 mg Tablet, Delayed Release (E.C.) Take 162 mg by mouth daily. Increased by neurologist 01/21/2022 at Unknown time ??? metFORMIN (GLUCOPHAGE) 1,000 mg Tablet Take 1,000 mg by mouth 2 times daily (with meals). 01/20/2022 at Unknown time ??? [DISCONTINUED] chlorhexidine (HIBICLENS) 4 % Liquid Apply topically daily as needed. Shower fromhead to toe with Chlorhexidine the night before surgery . 120 mL 0 ??? nitroGLYcerin (Nitrostat) 0.4 mg Tablet, Sublingual Place 1 tablet under the tongue every 5 minutes x3 as needed for chest pain- 25 tablet 12 Unknown at Unknown time ??? amoxicillin (AMOXIL) 500 mg Capsule TAKE 4 CAPSULES BY MOUTH 1 HOUR BEFORE APPOINTMENT Updated Allergies/ADRs: Allergies Allergen Reactions ??? Albumin Products Anaphylaxis ??? Lisinopril Anaphylaxis and Other (See Comments) Ear buzzing, nausea, itching, tongue swelling History of Presentation: Mr. Ochoa is a 66-year-old man with known atherosclerotic coronary disease having undergone priorPCI with intracoronary stenting of his right coronary. He presented with recurrent exertional dyspnea and chest pain underwent a cardiac cath which had an opportunity to review. This study is remarkable for significant triple-vessel coronary disease with mildly impaired LV function. Specifically he has total occlusion of the proximal right coronary which reconstitutes via collaterals at what would appear to be a graftable PDA. He also has significant disease of his first obtuse marginal branch, there is total occlusion of his mid circumflex system without graftable targets beyond that. He additionally has moderate to severe disease of his proximal to mid LAD. His past medical history and systems were reviewed in their entirety the pertinent issues are listed below. He has treated hypertension, heis a eof-rcllkuw-qntybftof diabetic. He has had no known previous CVA or TIA. He has no known renal or hepatic insufficiency. He used tobacco briefly as a teenager. His family history is unremarkable. He is undergone prior bilateral knee operations he has spinal stenosis and a cholecystectomy in his past. 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 Major Procedures/Operations: 01/21/22: CABGx3 GALICIA to lad, SVG to OM, SVG to PDA Hospital Course: CAD s/p CABGx3 Anaphylaxis Post-op delirium Vinod Ochoa Jr. was admitted to [facility] on 01/21/2022 via the Same Day Program. He was brought to the operating room where Dr. Danny Jewell performed coronary artery bypass grafting. He tolerated the procedure and was brought to the Cardiovascular Intensive Care Unit for recovery. He initially required the pharmacologic support of intravenous levophed. Early on POD 0 he developed suspected anaphylaxis to albumin, with additional possible culprits being ceftriaxone and vecuronium, with marked hypotension and diffuse urticarial rash. He received high dose epi, steroids and H1 ojjo. The rash improved and dissipated. Milrinone, epinephrine and vasopressin were added for cardiac output and BP. Allergy medicine was consulted. Tryptase was elevated. The most common immediate post-op causes are antibiotics and neuromuscular blockades. For that reason Allergy medicine recommended avoidance of ceftriaxone and vecuronium going forward in addition to human serum albumin. He will follow up in 4 to 6 weeks and have skin testing for these drugs as it takes up to 6 weeks fort a new allergy to show up as a positive skin test. By POD 3 inotropes and pressors were weanedto off. He was extubated from the ventilator on POD 4. He awoke delirious and impulsive requiring precedex. By POD 6 he cleared and precedex was stopped. All drips were weaned to off. Routine postoperative and home medications were started and a diet wasadvanced. Aspirin 81mg daily was started. Statin therapy was continued. He was started on beta blockade and this was optimized. Diuretics were started and he responded appropriately. He was transferred to the Intermediate Cardiac Care Unit for continued rehabilitation. All tubes, lines, and epicardial pacing wires were removed without incident. He voided normally after his Dailey was removed. Hypertension BP kalia to 160-180's once off vasoactive medications. At discharge he was on metoprolol 100 bid, cloniodine 0.2 bid and amlodipine 10 qd with SBP 130-140. Non-mobile right vocal cord His voice remained hoarse post-op. Otolaryngology was consulted. Laryngoscopy showed a non-mobile right vocal cord. He will follow up with otolaryngology and speech language pathology as an out patient. He was seen by Physical Therapy and Cardiac Rehabilitation. Sternal precaution education was provided. His discharge plan at this time is to home with family. The remainder of his hospital course was uneventful and by postoperative day #10 he had met all criteria for discharge. Pain was controlled on oral medications. He had walked 5 minutes and gone up and down stairs. He was tolerating a regular diet and had a bowel movement. Vital Signs at Discharge: Last set of vitals: BP 137/73 (BP Location (NBP): Left arm, Patient Position: Sitting) Pulse 73 Temp 36.6 ??C (97.9 ??F) (Oral) Resp 19 Ht 182.9 cm (6' 0.01) Wt 99.2 kg (218 lb 11.1 oz) SpO2 93% BMI 29.65 kg/m?? Patient Vitals for the past 168 hrs: Weight 01/31/22 0352 99.2 kg (218 lb 11.1 oz) 01/30/22 0446 101.1 kg (222 lb 14.2 oz) 01/29/22 0200 106.8 kg (235 lb 7.2 oz) 01/28/22 0301 104.3 kg (229 lb 15 oz) 01/27/22 0259 109.2 kg (240 lb 11.9 oz) 01/25/22 0400 110.5 kg (243 lb 9.7 oz) Current weight: 99.2 kg Admit/Preop weight: 102.5 kg Pertinent physical exam findings prior to discharge: Physical Exam: General: Appears well, conversant with hoarse voice, independant Neuro: Alert, oriented. CN intact. Moves all extremities Lungs: CTABL Heart: RRR, Sinus on tele Abdomen: +BS. ND Ext: WWP. +distal pulses. No rashes Incisions: c/d/i Important Studies and Lab Data: Lab Results Component Value Date WBC 8.4 01/29/2022 RBC 2.77 (L) 01/29/2022 HGB 8.7 (L) 01/29/2022 HCT 25.6 (L) 01/29/2022 PLATELET 282 01/29/2022 No results for input(s): INR in the last 168 hours. Lab Results Component Value Date NA 138 01/27/2022 K 3.7 01/31/2022 CL 103 01/27/2022 CO2 23 01/27/2022 BUN 9 (L) 01/27/2022 CREATININE 0.81 01/27/2022 Immunizations Given this Hospitalization: Immunization History Administered Date(s) Administered ??? Influenza Vaccine, Whole 09/16/2009 Smoking Status at Discharge: Social History Tobacco Use Smoking Status Former Smoker ??? Types: Cigarettes Smokeless Tobacco Never Used Tobacco Comment quit at age 17 STS Data Medications: Pre-operative beta jojo? Given Discharge beta jojo? Given Discharge lipid therapy? Given Discharge anti-platelet therapy? Given Discharge Medications: Your Medications New Medications Dose Details acetaminophen 500 mg Tab Commonly known as: Tylenol Take 2 tablets by mouth every 6 hours as needed for Pain. 1,000 mg Refills: 0 cloNIDine 0.2 mg Tab Commonly known as: Catapres Take 1 tablet by mouth 2 times daily. 0.2 mg Quantity: 120 tablet Refills: 3 metoprolol tartrate 100 mg Tab Commonly known as: Lopressor Take 1 tablet by mouth 2 times daily. 100 mg Quantity: 180 tablet Refills: 3 Continued medications, unchanged Dose Details amLODIPine 10 mg Tab Commonly known as: Norvasc take 1 tablet by mouth daily Quantity: 90 tablet Refills: 3 amoxicillin 500 mg Cap Commonly known as: Amoxil TAKE 4 CAPSULES BY MOUTH 1 HOUR BEFORE APPOINTMENT Refills: 0 aspirin EC 81 mg Tbec Take 162 mg by mouth daily. Increased by neurologist 162 mg Refills: 0 atorvastatin 80 mg Tab Commonly known as: Lipitor take 1 tablet by mouth once daily Quantity: 90 tablet Refills: 3 glipiZIDE XL 2.5 mg Tr24 Commonly known as: Glucotrol XL Take 2.5 mg by mouth daily. 2.5 mg Refills: 0 metFORMIN 1,000 mg Tab Commonly known as: GLUCOPHAGE Take 1,000 mg by mouth 2 times daily (with meals). 1,000 mg Refills: 0 nitroGLYcerin 0.4 mg Subl Commonly known as: Nitrostat Place 1 tablet under the tongue every 5 minutes x3 as needed for chest pain- Quantity: 25 tablet Refills: 12 omeprazole 40 mg Cpdr Commonly known as: PriLOSEC Take 40 mg by mouth daily. 40 mg Refills: 0 STOPPED Medications carvediloL 25 mg Tab Commonly known as: Coreg chlorhexidine 4 % Liqd Commonly known as: HIBICLENS mupirocin 2 % Oint Commonly known as: Bactroban Cardiac Surgery Discharge Instructions: Call your doctor if: You have a fever of greater than 101 degrees, shaking chills, if you develop redness or drainage from your incision sites, or if you have questions. Please call your surgeon's office if you have any discharge or drainage from your chest incision. Your surgeon, Dr. Danny Jewell and/or the Cardiac Surgery Physician Director Banking Team may be reached at . Weight: Weigh yourself daily. Please call the office if you notice increasing weight, increasing fluid retention (edema), and/or SOB. Sternal (breast bone) precautions: No lifting greater than 7-10 pounds; no pushing or pulling with upper extremities; no excessive chest stretching for the first 4 weeks. Further instructions will be given to you at your follow-up appointment. Activity level: Walk three times a day. You should continue to increase your walks by 1-2 minutes each day. It is expected that you will be walking 20-30 minutes twice a day within 3-4 weeks after discharge to home. Rest between activities and after meals. Use common sense, don't exhaust yourself. Biking: You may use a stationary bicycle whenever you are comfortable enough to permit this. Tightenthe resistance slightly. Increase the amount of time on the bicycle as you would do for your walks, a minute or two each day. No biking outside until after your return appointment with Dr. Danny Jewell. You may use a Home Garden Track or treadmill but avoid any pulling motion with the arms. Home activities: You may do light housework, e.g. dusting, setting the table, washing dishes, preparing a meal. Light carpentry and gardening are allowed. Avoid trying to open tight jars and stuck windows. No vacuuming, mopping, raking, shoveling, digging or hoeing until after your return visit with the surgeon. Sexual activity: You may engage in sexual activity when you feel ready. Use a position that protectsyour sternum (breastbone). Do not have your partner lie on your chest. Stairs: There are no restrictions on stair climbing. Use common sense. Don't exhaust yourself. Activities outside the home: After the first week home you may go out to dinner, visit friends, go to a movie, go to mosque, etc. Heavy activities: No hunting, skiing, jogging, snow shoveling, snowmobiling, lawn mowing, swimming, golf or tennis until after your return appointment with the surgeon. Do not ride motorcycles, [employer] tractors or horses. Avoid the use of a rifle with kickback against the shoulder for six months. Sleep: Try to establish normal sleep patterns. Long naps during the day may make it hard for you to sleep at night. Use the pain medication at bedtime for the first week at home. Smoking: It is very important that you not smoke after surgery. Smoking cessation education was provided as appropriate. If you need further assistance with this please call and you will be referred toa smoking cessation specialist. Medications: Take only those medications listed on your discharge information. Keep your pain under control so you can be active, do your coughing and breathing exercises and sleep. Contact us if the pain medication isn't working for you. Do not take any herbal preparations until after you return to see the surgeon. Diet: You should follow a regular diet until your appetite returns to normal. At that point in time you should resume a low fat, low cholesterol, [employer] Heart [employer] Diet/Diabetic diet. Driving: No driving until cleared by your surgeon. Avoid long trips if possible. If you must go on along trip, stop the car and walk every hour. Shower/Bath: You may shower daily. No baths, soaking, or swimming until cleared by your surgeon. Wound care: Wash your incisions daily with soap and rinse well, pat dry. Assess for any signs of infection such as increased redness, pain, warmth or drainage. Please call your surgeon's office if you have any discharge or drainage from your chest incision. If there is a lot of swelling, apply denver wraps during the day and remove at bedtime. Elevate your legs when you are sitting. REMOVE CHEST TUBE SUTURES ON OR AFTER 01/31/22 Home oxygen therapy: N/A Follow up appointments: ??? You should follow up with your PCP, Vladimir Muñoz DO, in 1-2 weeks. ??? Our office will schedule an appointment with your Stick Puller, Dr. Pickens, in 2 weeks. ??? You have an appointment with your Cardiac Surgeon, Dr. Danny Jewell, with a chest x-ray, EKG before your appointment. ??? Patient to follow up with Allergy medicine, Otolaryngology and Speech Language pathology as scheduled. Cardiac Rehabilitation: Vinod Long Xu Hanks was seen today regarding participation in the outpatient Phase 2 Cardiac Rehabilitation at [facility]. The patient agrees to a referral to this program. The referral will be sent at discharge and the patient should be contacted by the Program within 1- 2 weeks from discharge. Future Appointments and Orders Future Appointments and Orders Future Appointments Provider Department Dept Phone 02/17/2022 10:00 AM Chris Barreto MD; LILIA Clement SCHEDULE Allergy at [facility] Arrive at: [address] [phone] 03/06/2022 2:00 PM [facility] DX ROOM 2 XRay at [facility] Arrive at: [address] [phone] Please go to [address] [address] [address] ([place] Location). 03/06/2022 2:50 PM Danny Jewell MD Cardiac Surgery at [facility] Arrive at: [address] [phone] 04/29/2022 3:00 PM Damián Hart MD Cardiology at [place] Arrive at: [facility] [address] [phone] Future Orders Complete By Expires Referral to Cardiac Rehab [ASB127 Custom] As directed Process Instructions: If no progress note charted, please enter Clinical details in comments. Scheduling Instructions: Questions: My question or request is: CABG Referral to Home Health - at DISCHARGE [[id number] CPT(R)] As directed Process Instructions: Scheduling Instructions: Comments: DOCUMENTATION FOR VNA SERVICES (INCLUDING THOSE PATIENTS WITH MEDICARE COVERAGE REQUIRING HOME VNA SERVICES AND/OR HOSPICE SERVICES) PATIENT'S LOCATION: Vinod Ethan Ochoa Jr. [address] [facility] [address] (home) Telephone Information: Precipitate Washer's Name: Self In discussion with the attending physician, it is certified that this patient is under their care and that they, or a Nurse Practitioner, or Physician Director Banking who is working directly with them, had aface to face encounter that meets the physician face to face encounter requirements with this patient on 01/31/22 The encounter with the patient was in whole, or in part, for the following medical condition, which is the primary reason for home health care services: s/p cabg In discussion with the provider, it is certified that, based on their findings, the following services are medically necessary for home health services. To provide the following care/treatments with the clinical findings supporting the need for servicesas follows: HOME HEALTH AGENCY: [facility] in [place], [place] and [phone] RN orders: Cardiopulmonary assessment, incisional assessment, assess vital signs, assessment of rehab progress, medication management and effectiveness, home safety evaluation. PT ORDERS: Continue rehab for endurance, gait stability and strength with mobility and transfers. Home safety evaluation. Home exercise program if appropriate. PROCESS ENVIRONMENTAL TECHNICIAN ORDERS: assess and assist with community support needs Start of Care Date: 24 to 48 hours SPECIAL INSTRUCTIONS: For any follow up questions, needs, or issues please call the Cardiac Surgery Office at [phone] FOR MEDICARE ONLY: (please delete this section if not Medicare) In discussion with the attending physician, it is certified that the clinical findings support that this patient is homebound i.e. absences from home require considerable and taxing effort due to: Restricted mobility and poor activity tolerance due to recent cardiac surgery. Patient requires assistance of 1 assist w/device to leave the home. Home Health agencies which cover the area of patient's residence have been reviewed, either verballyor in writing, and patient/family have chosen the agency as noted. Questions: Agency name and contact information: [facility] Patient location post discharge: Home What services are requested: Registered Nurse Physical Therapy Start date: Responsible MD post discharge contact info: PCP and cardiology Dr. Danny Jewell Arrangements for VNA/home care: As above. VN RN OR PCP TO PLEASE REMOVE CHEST TUBE SUTURES ON OR AFTER 01/31/22 Signed: Manan Lovelace PA-C [facility] [place] [facility] [address] FAX [phone] Date: 01/31/2022 CC: DO Best Hassan Jock N, MD [facility] [place] [address] documented in this encounter Discharge Instructions Patient InstructionsManan Lovelace PA - 01/31/2022 1:26 PM EDT Cardiac Surgery Discharge Instructions: Call your doctor if: You have a fever of greater than 101 degrees, shaking chills, if you develop redness or drainage from your incision sites, or if you have questions. Please call your surgeon's office if you have any discharge or drainage from your chest incision. Your surgeon, Dr. Danny Jewell and/or the Cardiac Surgery Physician Director Banking Team may be reached at . Weight: Weigh yourself daily. Please call the office if you notice increasing weight, increasing fluid retention (edema), and/or SOB. Sternal (breast bone) precautions: No lifting greater than 7-10 pounds; no pushing or pulling with upper extremities; no excessive chest stretching for the first 4 weeks. Further instructions will be given to you at your follow-up appointment. Activity level: Walk three times a day. You should continue to increase your walks by 1-2 minutes each day. It is expected that you will be walking 20-30 minutes twice a day within 3-4 weeks after discharge to home. Rest between activities and after meals. Use common sense, don't exhaust yourself. Biking: You may use a stationary bicycle whenever you are comfortable enough to permit this. Tightenthe resistance slightly. Increase the amount of time on the bicycle as you would do for your walks, a minute or two each day. No biking outside until after your return appointment with Dr. Danny Jewell. You may use a Home Garden Track or treadmill but avoid any pulling motion with the arms. Home activities: You may do light housework, e.g. dusting, setting the table, washing dishes, preparing a meal. Light carpentry and gardening are allowed. Avoid trying to open tight jars and stuck windows. No vacuuming, mopping, raking, shoveling, digging or hoeing until after your return visit with the surgeon. Sexual activity: You may engage in sexual activity when you feel ready. Use a position that protectsyour sternum (breastbone). Do not have your partner lie on your chest. Stairs: There are no restrictions on stair climbing. Use common sense. Don't exhaust yourself. Activities outside the home: After the first week home you may go out to dinner, visit friends, go to a movie, go to mosque, etc. Heavy activities: No hunting, skiing, jogging, snow shoveling, snowmobiling, lawn mowing, swimming, golf or tennis until after your return appointment with the surgeon. Do not ride motorcycles, [employer] tractors or horses. Avoid the use of a rifle with kickback against the shoulder for six months. Sleep: Try to establish normal sleep patterns. Long naps during the day may make it hard for you to sleep at night. Use the pain medication at bedtime for the first week at home. Smoking: It is very important that you not smoke after surgery. Smoking cessation education was provided as appropriate. If you need further assistance with this please call and you will be referred toa smoking cessation specialist. Medications: Take only those medications listed on your discharge information. Keep your pain under control so you can be active, do your coughing and breathing exercises and sleep. Contact us if the pain medication isn't working for you. Do not take any herbal preparations until after you return to see the surgeon. Diet: You should follow a regular diet until your appetite returns to normal. At that point in time you should resume a low fat, low cholesterol, [employer] Diet/Diabetic diet. Driving: No driving until cleared by your surgeon. Avoid long trips if possible. If you must go on along trip, stop the car and walk every hour. Shower/Bath: You may shower daily. No baths, soaking, or swimming until cleared by your surgeon. Wound care: Wash your incisions daily with soap and rinse well, pat dry. Assess for any signs of infection such as increased redness, pain, warmth or drainage. Please call your surgeon's office if you have any discharge or drainage from your chest incision. If there is a lot of swelling, apply denver wraps during the day and remove at bedtime. Elevate your legs when you are sitting. REMOVE CHEST TUBE SUTURES ON OR AFTER 01/31/22 Home oxygen therapy: N/A Follow up appointments: You should follow up with your PCP, Vladimir Muñoz DO, in 1-2 weeks. Our office will schedule an appointment with your Stick Puller, Dr. Pickens, in 2 weeks. You have an appointment with your Cardiac Surgeon, Dr. Danny Jewell, with a chest x-ray, EKG before your appointment. Patient to follow up with Allergy medicine, Otolaryngology and Speech Language pathology as scheduled. Cardiac Rehabilitation: Vinod Ethan Ochoa Jr. was seen today regarding participation in the outpatient Phase 2 Cardiac Rehabilitation at [facility]. The patient agrees to a referral to this program. The referral will be sent at discharge and the patient should be contacted by the Program within 1- 2 weeks from discharge. documented in this encounter Medications at Time of Discharge Medication Sig Dispensed Refills Start Date End Date acetaminophen (Tylenol) Take 2 tablets by 0 [...] 01/3104/29/2022 mg Tablet mouth 2 times daily. metoprolol tartrate Take 1 tablet by 180 tablet 3 01/31/2022 02/25/2022 (Lopressor) 100 mg mouth 2 times daily. Tablet amLODIPine (Norvasc) 10 take 1 tablet by 90 tablet 3 202006/16/2022 mg TabletIndications: mouth daily Essential hypertension atorvastatin (Lipitor) take 1 tablet by 90 tablet 3 021 06/30/2022 80 mg TabletIndications: mouth once daily ASCVD (arteriosclerotic cardiovascular disease) documented as of this encounter Progress Notes Berenice Salazar RN - 01/31/2022 1:44 PM EDT AVS reviewed with pt, questions answered and copy provided. IV/tele removed. Pt wheeled down to [facility] for discharge. Lina Gamez - 01/31/2022 1:37 PM EDT Nutrition Services Note - Low Nutrition Acuity Vinod Ochoa is a 66 y.o. male Reason for intervention: follow up Nutrition Plan: Pt seen for nutrition follow up. Pt reported good PO intake. Pt had no nutrition questions or concerns at this time. Continue current diet. Monitor weight. Encourage good oral intake. Support and encouragement provided. Discussed case with Clinical Dietitian Active Orders Diet Carb Control diet 60/60/75 CHO counting level 2 Frequency: Effective Now Number of Occurrences: Until Specified Admit Weight: 102.5 kg Estimated body mass index is 29.65 kg/m?? as calculated from the following: Height as of this encounter: 182.9 cm (6' 0.01). Weight as of this encounter: 99.2 kg (218 lb 11.1 oz). Wt Readings from Last 5 Encounters: 01/31/22 99.2 kg (218 lb 11.1 oz) 01/17/22 102.5 kg (226 lb) 01/13/22 97.5 kg (215 lb) 01/01/22 99.8 kg (220 lb) 04/18/21 97.5 kg (215 lb) Weight loss: not clinically significant Appetite: Excellent (75%-100%) Food allergies:no known food allergies Chewing/Swallowing difficulty: none Nausea/Vomiting: no nausea and no vomiting Last Bowel Movement: 01/30/22 Patient education / questions: all nutrition related questions answered at this time Nutrition services to follow weekly through hospital course unless consulted in the interim. Lina Gamez Pager: [phone] Felisa Joy, [facility] - 01/31/2022 12:47 PM EDT Speech-Language Pathology Consult Note Vinod Ochoa Jr. is a 66 y.o. male with CAD who is 10 Days Post-Op cabg x 3. PMH of CAD with PCI Hx, DM II, HLD. 24h Events: MORENA Voice remains hoarse Clonidine increased to 0.2'' PO hydralazine stopped SBP to 150 Order received and records reviewed. Discussed pt w/ PA and met w/ pt. Pt about to be DC'd from [facility], anxious to go home. Pt w/ noticeable moderate breathy hypophonia, low volume. Pt states that his voice has gradually improved since surgery (he reports he was initially aphonic). 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 Pt going to attend Cardiac Rehab at [facility] in [place], [place] in coming weeks. Pt would like voice therapy as well. Unfortunately, from review of website, no OP [facility] services appear to be offered by that hospital. Also says he is close to [facility], but review of their website also w/o mention of OP [facility] services. I offered to pt that he could be seen by [facility] voice therapist TeleHealth, however, he declines this as he does not have a computer or tablet at home and is not comfortable w/ technology. I suggested to PA that he put in a referral for OP voice therapy here at [facility] and schedule it for 4 weeks from now, when pt plans to return to [facility] to be re- checked by ENT. Pt hopefullywill continue to have improvements in his voice quality spontaneously (as he has in past few days asper his report). Pt notes that his voice is now strong enough to be understood by family and practiti oners, and on the phone. Pt can contact [facility] OP [facility] therapy if he has concerns or questions in interim. [phone]. Felisa Joy MA [facility] Inpatient Rehabilitation Medicine pager:# [phone] Manan Lovelace PA - 01/31/2022 8:37 AM EDT Cardiac Surgery Progress Note Vinod Ochoa Jr. is a 66 y.o. male with CAD who is 10 Days Post-Op cabg x 3. PMH of CAD with PCI Hx, DM II, HLD. 24h Events: MORENA Voice remains hoarse Clonidine increased to 0.2'' PO hydralazine stopped SBP to 150 S: Feels well. Ambulating. No specific complaints. Wants to go home O: Temp: [36.3 ??C (97.3 ??F)-36.6 ??C (97.9 ??F)] Heart Rate: [77-94] Resp: [16-18] BP: (133-151)/(64-95) SpO2: [91 %-96 %] Heart Rate from SpO2: [78 bpm-81 bpm] 01/30 0701 - 01/31 0700 In: 1000 [P.O.:1000] Out: 400 [Urine:400] Admit weight: 102.5 kg Current weight: Weight: 99.2 kg (218 lb 11.1 oz) Physical Exam: General: Appears well, conversant, independant Neuro: Alert, oriented. CN intact. Moves all extremities Lungs: CTABL Heart: RRR, Sinus on tele Abdomen: +BS. ND Ext: slightly cool/ pale. +distal pulses. No rashes Incisions: c/d/i Tubes/Lines/Drains: piv Assessment/Plan: 66 y.o. male 10 Days Post-Op CABG x 3. Anaphylaxis to albumin likely; treated. Cardiogenic shock resolved. Post-op delirium-resolved - Consult [facility] for eval and ENT for laryngoscopy - Avoid albumin, vecuronium, ceftriaxone - Follow-up with allergy in 4 to 6 weeks and have skin testing for these drugs - Tryptase came back at 12.5; IgA level normal. - Repeat tryptase pending - Cannot add lisinopril has anaphylactic hx - PT- cleared for home when ready Neuro: APAP, oxy prn, melatonin qhs CV: metop 100mg'', Clonidine 0.2'', Norvasc 10', lipitor 80, cannot add lisinopril due to allergy Pulm: ra GI: reg diet, NBOs, protonix : voiding Renal: K+ prn, lasix 20' po Heme: ASA 81' ID: No needs Endo: SSI Dispo: Floor status; Full Code. Discussed with attending surgeon on rounds this morning. BREANA ARREOLA 01/31/2022 Between the hours of 1800 - 0600 and on the weekends please page [phone]. Elizabeth Leija, RN - 01/31/2022 2:31 AM EDT Pt AAOx4 NSR on tele- see scanned docs. VSS on RA. Denies any pain or SOB. Sternal incision CDI. Pt ambulated independently to bathroom and around unit. Rested comfortably between care. Call ballesteros within reach. Kenny Berumen - 01/30/2022 8:09 PM EDT Messenger Copy Encounter Note Patient Name: Vinod Ochoa Jr. : [id number] MR#: [id number] Admit Date: 01/21/2022 5:47 AM Hospital Day 9 days Narrative: Initiated visit with Mr. Ochoa while rounding on unit. He was walking around his room. Assessment: Patient said in a hoarse whisper that it hurt to talk and that the doctor will examine his throat tomorrow before he is discharged. Intervention and Outcome: He said he was told that in all the surgeries like his, this has never occurred. He looks forward togoing home. Follow-up: Messenger Copy is available as needed. Time in Direct Care: 5 min. Kenny Berumen 01/30/2022 Chris Thompson, PT - 01/30/2022 3:53 PM EDT Physical Therapy Note Treatment Number PT: 4 Patient profile: Vinod Ochoa Jr. is a 66 y.o. male with CAD who is 9 Days Post-Op cabg x 3. PMH of CAD with PCI Hx, DM II, HLD. ?? 24h Events: Transferred Walked laps Lucid SBP up to 150's Social History: Pt able to answer questions today with some impaired short term memory: unclear if history is accurate. Per pt report today, he lives alone. 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 He repots he will go to one of their houses upon d/c ( will need to follow-up with family. Unclear of his home set-up. Pt stated that he lives in [place]. Precautions/Special Considerations: STERNAL PRECAUTIONS (No pushing, pulling or lifting >8-10lbs); at risk to fall Mobility and Positioning Recommendations: ?? Ambulate 3-4x/daily with nursing with supervision, no device ?? OOB in chair for all meals Subjective: I was really confused for a bit. I remember some of it. Objective: Patient seen for physical therapy and demonstrated the following: Pain: none Mental Status:alert, oriented, appropriate, follows commands,cooperative, hallucinations improved. Vital Signs: SpO2: 98% on RA HR: 80's BP: stable ?? Sit to stand from chair with supervision. Maintaining precautions without cues ?? Ambulated 300 ft without device with supervision ?? Up and down 6 stairs with rail and Cg assist x 1 Education: reviewed precautions, pacing, safety. Assessment: Vinod Ochoa Jr. was seen today for physical therapy treatment session for continuation of POC. Pt making daily gains and pt is up mobizling in the hallway independently. Vitals stable. Pt ambulated around unit and performed stairs today without LOB. Pt is safe for home d/c with family support. Plan for d/c tomorrow Am. Anticipated Discharge Disposition (PT): d/c home with family Consult Recommendations: none Anticipated Equipment Needs at Discharge (PT): none Physical Therapy Goals: To be achieved by 01/30-met 1. Pt will perform supine to sit transfers with supervision to/from flat bed, log roll technique with assist of family. 2. Pt will perform sit><stand transfers with supervision with least restrictive device 3. Pt will perform bed to chair transfers with supervision with least restrictive device 4. Pt will ambulate at least 160' with supervision with least restrictive device 5. Pt will perform 6 stairs with rail, LRAD and supervision Plan: Therapy Frequency (PT): 2-4 times/wk as outlined in initial evaluation. Patient agrees with plan as stated. Time IN / OUT:3256-4027 Total Minutes, Physical Therapy: 15 mins (te-fx2) Chris Thompson PT Pager: [phone] Physical Therapy Inpatient Rehabilitation Department Manan Lovelace PA - 01/30/2022 8:04 AM EDT Cardiac Surgery Progress Note Vinod Ochoa Jr. is a 66 y.o. male with CAD who is 9 Days Post-Op cabg x 3. PMH of CAD with PCI Hx, DM II, HLD. 24h Events: Transferred Walked laps Lucid SBP up to 150's S: Feels well. Ambulating. +BM. No specific complaints. O: Temp: [36.4 ??C (97.5 ??F)-37 ??C (98.6 ??F)] Heart Rate: [72-84] Resp: [16-20] BP: (125-158)/(59-115) SpO2: [86 %-96 %] Heart Rate from SpO2: [72 bpm-84 bpm] 01/29 0701 - 01/30 0700 In: 330 [P.O.:330] Out: 600 [Urine:600] Admit weight: 102.5 kg Current weight: Weight: 101.1 kg (222 lb 14.2 oz) Physical Exam: General: Appears well, conversant Neuro: Alert, oriented. N intact. Moves all extremities Lungs: CTABL Heart: RRR, Sinus on tele Abdomen: +BS.ND Ext: slightly cool/ pale. + distal pulses. No rashes Incisions: c/d/i Tubes/Lines/Drains: piv Assessment/Plan: 66 y.o. male 9 Days Post-Op CABG x 3. Anaphylaxis to albumin likely; treated. Cardiogenic shock resolved. Post-op delirium-resolved - Avoid albumin, vecuronium, ceftriaxone - Follow-up with allergy in 4 to 6 weeks and have skin testing for these drugs - Tryptase came back at 12.5; IgA level normal. Allergy following - Repeat tryptase today - Replete K+ - Discussed with patient and reviewed records, very low concern for alcohol withdrawal - social drinker 1-2 drinks with dinner intermittently has never withdrawn - dc hydralazine - Increase clonidine to 0.2 - dc sqh - Cannot add lisinopril has anaphylactic hx - PT: home vs rehab TBD Neuro: APAP, oxy prn, melatonin qhs CV: metop 100mg'', cannot add lisinopril due to allergy, Clonidine 0.2'', Norvasc 10', lipitor 80 Pulm: IS GI: reg diet, NBOs, protonix : voiding Renal: K+ prn, lasix 20' po Heme: ASA 81' ID: No needs Endo: SSI Dispo: Floor status; Full Code. Discussed with attending surgeon on rounds this morning. BREANA ARREOLA 01/30/2022 Between the hours of 1800 - 0600 and on the weekends please page [phone]. Elizabeth Leija RN - 01/30/2022 3:43 AM EDT Pt AAOx4 NSR on tele.VSS on RA. PRN hydralazine given x1 for SBP of 156. Sternal incision cdi. Denies any pain or SOB.Ambulated independently in room. No episodes of hallucination overnight.Call ballesteros within reach. Librado Cueva PA - 01/29/2022 8:27 AM EDT Cardiac Surgery Progress Note Vinod Ochoa Jr. is a 66 y.o. male with CAD who is 8 Days Post-Op cabg x 3. PMH of CAD with PCI Hx, DM II, HLD. 24h Events: -BP better controlled in increased in metop to 100, a few doses of PRN hydralazine - still some visual hallucinations but getting better. Woken by nurse this morning and disoriented but reoriented well. - Floor status S: Doing ok. Awake and aware. Had a BM. Feeling stronger, walked a lap a couple of times yesterday. O: Temp: [36.5 ??C (97.7 ??F)-36.9 ??C (98.4 ??F)] Heart Rate: [78-90] Resp: [12-26] BP: (123-164)/(69-92) SpO2: [90 %-97 %] Heart Rate from SpO2: [78 bpm-86 bpm] 01/28 0701 - 01/29 0700 In: 1350 [P.O.:1350] Out: 975 [Urine:975] Admit weight: 102.5 kg Current weight: Weight: 106.8 kg (235 lb 7.2 oz) Physical Exam: General: awake, calm, responds to commands, Oriented. Neuro: CN intact. Moves all extremities. Pupils equal Lungs: CTABL, coarse throughout. Heart: RRR S1 and S2 heard. Sinus on tele. Abdomen: +BS.ND. Ext: slightly cool/ pale. + distal pulses. No rashes. Incisions: c/d/i Tubes/Lines/Drains: piv Assessment/Plan: 66 y.o. male 8 Days Post-Op CABG x 3. Anaphylaxis to albumin likely; treated. Cardiogenic shock resolved. Now with delirium. - HOLD ON ALBUMIN, VECURONIUM, CEFTRIAXONE. - Tryptase came back at 12.5; IgA level normal. Allergy following. - Replete K+ - Reg diet - Discussed with patient and reviewed records, very low concern for alcohol withdrawal - social drinker 1-2 drinks with dinner intermittently has never withdrawn - Cont PO hydralazine for SBP>140 - Cannot add lisinopril has anaphylactic hx - Awaiting floor bed - Melatonin for sleep - Subq hep dvt proph - PT: home vs rehab Neuro: APAP, oxy prn, melatonin qhs CV: hydralazine PRN goal SBP<140, metop 100mg'', cannot add lisinopril due to allergy Clonidine 0.1'', Norvasc 10' Pulm: IS GI: reg diet, NBOs, protonix : voiding Renal: K+ prn, lasix 20mg PO daily Heme: ASA 81', subq hep ID: No needs Endo: SSI Dispo: Floor status; Full Code. Discussed with attending surgeon on rounds this morning. BREANA Cooley 01/29/2022 Between the hours of 1800 - 0600 and on the weekends please page [phone]. Ayaka Caldwell, PT - 01/28/2022 5:19 PM EDT Physical Therapy Note Treatment Number PT: 3 Patient profile: Vinod Ochoa Jr. is a 66 y.o. male with CAD who is 7 Days Post-Op cabg x 3. PMH of CAD with PCI Hx, DM II, HLD. ?? 24h Events: - HTN increased norvasc to 10, metop to 75 BIG, SBP still up to 160s. - still some visual hallucinations but getting better. - Floor status ?? Social History: Pt able to answer questions today with some impaired short term memory: unclear if history is accurate. ??Per pt report today, he lives alone. 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 ??He repots he will go to one of their houses upon d/c ( will need to follow-up with family. ??Unclear of his home set-up. Pt stated that he lives in [place]. ?? Precautions/Special Considerations: STERNAL PRECAUTIONS (No pushing, pulling or lifting >8-10lbs); at risk to fall; IJ; impaired mental status/memory ?? Mobility and Positioning Recommendations: ?? Ambulate 3-4x/daily with nursing with??rolling walker; 1 assist for balance; close chair follow ?? OOB in chair for all meals Subjective: I need to go to the bathroom, voice remains hoarse Objective: Patient seen for physical therapy and demonstrated the following: Pain: sore chest with cough (expected) Mental Status:alert, oriented, appropriate, follows commands,cooperative, per nurse still occasionally seeing things in the room/hallucinating Vital Signs: SpO2: 96-97% on RA, RR 15, cough dry but strong HR: 80's BP: 142/77 post walk ?? Exercises: completed post-op stretching exs prior to ambulation and used acapella after walk(goodeffort, dry cough, no production) ?? Pt stood from CC with cues and min/mod A, took few turning steps, wide IAN chair to toilet. ?? Pt needed assist for cleaning up and minAx2 to get off toilet (low) ?? Ambulated 1 loop in hallway (had done one earlier with nurse), no assistive device, encouraged arm swing (tends to be stiff and guarded); required close supervision ?? Pt left in bedside recliner chair Education: sit to stand techniques, postural education in standing and ambulation, Assessment: Vinod Ochoa Jr. was seen today for physical therapy treatment session for continuation of POC. More stable with ambulation today, still hoarse, occasional hallucinations (per nurse),needs ongoing opportunities to mobilize safely to increase stamina, comfort and independence. Will work on bed mobility when he transfers to floor bed. Still need to verify ? Family assist at d/c, if home is a possibility. Pt improving daily, will see how quickly he progresses in next few days to helpdetermine safest d/c plan. Anticipated Discharge Disposition (PT): to be determined pending medical status & functional progression Consult Recommendations: Occupational therapy consult Anticipated Equipment Needs at Discharge (PT): to be determined Physical Therapy Goals: To be achieved by 01/30-goals ongoing as of today 01/28/22 1. Pt will perform supine to sit transfers with supervision to/from flat bed, log roll technique with assist of family. 2. Pt will perform sit><stand transfers with supervision with least restrictive device 3. Pt will perform bed to chair transfers with supervision with least restrictive device 4. Pt will ambulate at least 160' with supervision with least restrictive device. 5. Pt will perform??6??stairs with rail, LRAD and supervision. Plan: Therapy Frequency (PT): 2-4 times/wk as outlined in initial evaluation. Patient agrees with plan as stated. Time IN / OUT:9368-6855 Total Minutes, Physical Therapy: 24 Billing Code: te-fx2 AYAKA CALDWELL PT Pager: [phone] Physical Therapy Inpatient Rehabilitation Department Linda Villafuerte - 01/28/2022 3:52 PM EDT Messenger Copy Encounter Note Patient Name: Vinod Ochoa Jr. : [id number] MR#: [id number] Admit Date: 01/21/2022 5:47 AM Hospital Day 7 days Narrative: Self initiated visit in a regular unit rounding for Spiritual support to patient. Assessment: Patient is awake, alert and oriented. Patient is sitting a couch. Patient says, he is feeling good. Patient says, he had an open heart surgery which later got infected. Patient sounds positive, faithful and hopeful. Patient has good family support and says, his family comes and goes home. Intervention and Outcome: I offered Pastoral presence, Empathetic listening, acknowledgement, validation, Spiritual/Emotional support and encouragement. I assured patient of my thoughts and prayers for him. I brought peace, comfort, compassion and consolation to patient. Patient expressed appreciation for my visit to him. Follow-up: As needed. Time in Direct Care: 10 Linda Villafuerte 01/28/2022 Tanja Romeo - 01/28/2022 1:00 PM EDT Nutrition Services Note - Low Nutrition Acuity Vinod Ochoa Jr. is a 66 y.o. male Reason for intervention: diet advancement Nutrition Plan: Continue current diet. Encourage good PO intake. Added snack 1x/day. Trial of Glucerna 1x/day. Monitor weight, lasix noted. Support and encouragement provided. Patient seen in room for a nutrition visit, as patient's diet as been advanced to regular after being NPO/clear liquids only for 5 days. Patient is tolerating diet well, but appetite is low. Patient reports not having much appetite yesterday, but feels that today his appetite is improving. So far today, patient reports having a full portion of oatmeal for breakfast. At time of visit, patient had ordered his lunch meal consisting of a cheeseburger and fruit cup. Added snack 1x/day per patient request, and patient agreeable to trial Glucerna 1x/day at breakfast to promote PO intake. Patient had no other nutrition questions at this time. Nutrition services to continue to monitor and follow up. Active Orders Diet Carb Control diet 60/60/ CHO counting level 2 Frequency: Effective Now Number of Occurrences: Until Specified Admit Weight: 102.5 kg Estimated body mass index is 31.18 kg/m?? as calculated from the following: Height as of this encounter: 182.9 cm (6' 0.01). Weight as of this encounter: 104.3 kg (229 lb 15 oz). Wt Readings from Last 5 Encounters: 01/28/22 104.3 kg (229 lb 15 oz) 01/17/22 102.5 kg (226 lb) 01/13/22 97.5 kg (215 lb) 01/01/22 99.8 kg (220 lb) 04/18/21 97.5 kg (215 lb) Weight loss: none, patient reports a UBW of 220 lbs. 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 ARACELI Roman [id number] Librado Cueva PA - 01/28/2022 10:22 AM EDT Cardiac Surgery Progress Note Vinod [place] Gutiérrez. is a 66 y.o. male with CAD who is 7 Days Post-Op cabg x 3. PMH of CAD with PCI Hx, DM II, HLD. 24h Events: - HTN increased norvasc to 10, metop to 75 BIG, SBP still up to 160s. - still some visual hallucinations but getting better. - Floor status S: Doing ok. Awake and aware. Able to answer quesitons appropriately. Breathing ok. Denise PO diet. Walked with PT. Feels weak. - BM. Denies n/v, fever, chills, SOB, CP, abd pain. O: Temp: [36.5 ??C (97.7 ??F)-36.9 ??C (98.4 ??F)] Heart Rate: [79-99] Resp: [14-32] BP: (122-163)/(69-94) SpO2: [91 %-98 %] Heart Rate from SpO2: [77 bpm-99 bpm] 01/27 0701 - 01/28 0700 In: 1315.5 [P.O.:300; I.V.:815.5] Out: 1725 [Urine:1725] Admit weight: 102.5 kg Current weight: Weight: 104.3 kg (229 lb 15 oz) Physical Exam: General: awake, calm, responds to commands, Oriented. Neuro: CN intact. Moves all extremities. Pupils equal Lungs: CTABL, coarse throughout. Heart: RRR S1 and S2 heard. Sinus on tele. Abdomen: Hypoactive BS.ND. Ext: slightly cool/ pale. + distal pulses. No rashes. Incisions: c/d/i Tubes/Lines/Drains: piv Assessment/Plan: 66 y.o. male 7 Days Post-Op CABG x 3. Anaphylaxis to albumin likely; treated. Cardiogenic shock resolved. Now with delirium. - HOLD ON ALBUMIN, VECURONIUM, CEFTRIAXONE. - Tryptase came back at 12.5; IgA level normal. Allergy following. - Replete K+ - Lasix to PO 20mg daily - increase metop to 100mg BID - Clonidine 0.1'' - Norvasc to 10' - Reg diet - Discussed with patient and reviewed records, very low concern for alcohol withdrawal - social drinker 1-2 drinks with dinner intermittently has never withdrawn - Cont PO hydralazine for SBP>140 - Cannot add lisinopril has anaphylactic hx - Awaiting floor bed - Melatonin for sleep - Subq hep dvt proph - needs BM, suppository Neuro: APAP, oxy prn, melatonin qhs CV: hydralazine PRN goal SBP<140, metop 100mg '', cannot add lisinopril due to allergy Clonidine 0.1'', Norvasc 10' Pulm: IS GI: reg diet, NBOs, protonix : voiding Renal: K+ prn, lasix 20mg PO daily Heme: ASA 81', subq hep ID: No needs Endo: SSI Dispo: Floor status; Full Code. Discussed with attending surgeon on rounds this morning. BREANA Cooley 01/28/2022 Between the hours of 1800 - 0600 and on the weekends please page [phone]. Rolanda Zhang MD - 01/27/2022 10:56 AM EDT Cardiovascular Critical Care Attending Note Vinod Ochoa Jr. 1955 Age: 66 y.o. PCP: Vladimir Muñoz DO Date of Service: 01/27/2022 Date of Admission: 01/21/2022 Length of Stay Hospital Day 6 days Patient ID: Vinod Ochoa Jr. is a 66 y.o. male with a history of hyperlipidemia, diabetes mellitus type 2 (not on insulin), obesity (BMI 33) and coronary artery disease who underwent 3vCABG with Dr. Jewell on 01/21. Jody- operative course was complicated by anaphylaxis (thought 2/2 albumin) resulting in refractory shock and respiratory failure, transient biventricular failure with cardiogenic shock and acute kidney injury. He has significantly improved over the last 48 hours but has had persistent encephalopathy/delirium and now refractory hypertension for which he remains in the CVCC. The patient was seen and examined on critical care rounds. Vinod Ochoa Jr. is a 66 y.o. male with the following active issues: ACTIVE PROBLEMS: ?? ASCVD s/p 3vCABG ?? Anaphylaxis w/ shock and respiratory failure, now resolved ?? Biventricular failure with cardiogenic shock, now resolved ?? Acute kidney injury, now resolved ?? Toxic metabolic encephalopathy and delirium ?? Hypertensive urgency INTERVAL HISTORY: ??? Agitation improved, Precedex discontinued ??? Continues to have uncontrolled hypertension on amlodipine, hydralazine, metoprolol and NTG gtt ??? Renal function continues to improve ??? Net negative 1.3L in last 24 hours with diuresis ??? No physical complaints but remains delirious. Complained there was a fly going up his IV this morning. Even after redirection he insisted on showing me the fly going up the IV. Denies chest pain, SOB, abd pain, N/V, fevers/chills. MEDICATIONS: Scheduled Meds: ??? amLODIPine 10 mg Oral Daily ??? polyethylene glycoL (MIRALAX) oral powder 17 g Oral Daily ??? cloNIDine 0.1 mg Oral BID ??? metoprolol tartrate 75 mg Oral 2 times per day ??? melatonin 6 mg Oral Nightly ??? insulin lispro 1-6 Units Subcutaneous TID AC ??? heparin (porcine) 5,000 Units Subcutaneous 2 times per day ??? hydrALAZINE 50 mg Oral TID ??? furosemide 20 mg Intravenous Daily ??? acetaminophen 1,000 mg Oral Q8H EFRAIN ? ? metoclopramide 10 mg Intravenous 4 Times Daily AC & HS ??? atorvastatin 80 mg Oral QPM ??? chlorhexidine 15 mL Oral 2 times per day ??? pantoprazole EC 40 mg Oral Daily Or ??? pantoprazole 40 mg Intravenous Daily ??? senna-docusate 2 tablet Oral Daily ??? magnesium hydroxide 10 mL Oral Daily ??? aspirin 81 mg Oral Daily Or ??? aspirin 300 mg Rectal Daily Continuous Infusions: ??? dexmedetomidine 0 mcg/kg/hr (01/26/22 0952) ??? nitroGLYcerin 100 mcg/min (01/27/22 1010) EXAM: Last value Range last 24 hrs Temperature Temp: 36.6 ??C (97.9 ??F) Temp: [36.6 ??C (97.9 ??F)-37 ??C (98.6 ??F)] Heart Rate Heart Rate: 85 Heart Rate: [85-103] Blood Pressure BP: 119/72 BP: (119-168)/(72-118) Respiratory Rate Resp: 22 Resp: [16-27] SpO2 SpO2: 98 % SpO2: [93 %-98 %] Art BP BP (Arterial Line): 137/73 BP (Arterial Line): -- Weights: Patient Vitals for the past 168 hrs: Weight 01/27/22 0259 109.2 kg (240 lb 11.9 oz) 01/25/22 0400 110.5 kg (243 lb 9.7 oz) 01/24/22 0400 110.7 kg (244 lb 0.8 oz) 01/23/22 0429 113.5 kg (250 lb 3.6 oz) 01/22/22 0400 109.2 kg (240 lb 11.9 oz) 01/21/22 1215 102.5 kg (225 lb 15.5 oz) Gen- Pleasant older male, cooperative but confused HEENT- NC/AT, sclera anicteric, EOMI CV- Regular rhythm, normal rate, no murmur heard Pulm- Respirations unlabored, CTAB Abd- Obese, benign, +BS Ext- WWP, 1+ edema at ankles when sitting upright in chair Neuro- Alert, confused, hallucinating but not agitated. Face symmetric. Moving all extremities spontaneously and supporting self in bedside chair. Psych- +Hallucinations. Otherwise unable to assess in setting of encephalopathy/delirium. Skin- Warm, non-diaphoretic. Midline sternotomy benign/healing. Lines- RIJ CVL, PIVs, Dailey PERTINENT DIAGNOSTICS: Creatinine 0.81 K+ 3.5 CXR pending today ASSESSMENT, MANAGEMENT, and DECISION MAKINyoM with ASCVD who underwent 3vCABG with jody-operative course c/b anaphylaxis to albumin and subsequent acute BiV failure (? Stress cardiomyopathy) and cardiogenic shock. He improved with support care and was successfully extubated on 01/24. Course since has been complicated by encephalopathy/delirium at times with agitation requiring Precedex, and difficult to control severe hypertension requiringNTG gtt. Although encephalopathy/delirium persists it appears to be improving and he is less agitated and no longer requiring Precedex. Blood pressure control remains elusive and he continues on a NTG gtt. Neuro- Precedex DC'd, continue with frequent re-orientation and delirium precautions. APAP prn. Melatonin for sleep. Cardiovascular- Amlodipine increased to 10mg and hydralazine to 50mg. On metoprolol; may get better BP response from carvedilol which is a home medication. Add clonidine for now. Wean NTG gtt. Continuelasix for goal negative 1L/24 hrs. Continue ASA. Consider reassessment of BiV function prior to disch arge. Pulmonary- Oxygenation/ventilation stable on LFNC prn. Pulm hygiene per protocol. FEK- Lasix for net negative 1L/24 hours. Replete lytes prn. MOnitor renal function. GI- Continue PPI, metoclopramide, RBOs. Advance diet. ID- No acute issues. Continue to monitor. Heme- SQH ppx Endo- SSI, adjust as needed for goal Psych- Continue with re-orientation and reassurance IS THE PATIENT CRITICALLY ILL? Is there a high potential of sudden, clinically significant, or life threatening deterioration? No If this patient is not critically ill, the reason for continued hospitalization is: hypertensive urgency, encephalopathy/delirium. Rolanda Zhang MD 01/27/2022 Damián Grove PA - 01/27/2022 7:45 AM EDT Cardiac Surgery Progress Note Vinod Ochoa Jr. is a 66 y.o. male with CAD who is 6 Days Post-Op cabg x 3. PMH of CAD with PCI Hx, DM II, HLD. 24h Events: - HTN still on Nitro gtt @ 200. Metop, hydral, Norvasc increased. S: Doing ok. Awake and aware. Able to answer quesitons appropriately. Breathing ok. Denise PO diet. Stood yesterday with PT. Feels weak. - BM. Denies n/v, fever, chills, SOB, CP, abd pain. O: Temp: [36.6 ??C (97.88 ??F)-37 ??C (98.6 ??F)] Heart Rate: [71-103] Resp: [15-22] BP: (126-168)/(77-118) SpO2: [93 %-98 %] Heart Rate from SpO2: [71 bpm-101 bpm] 01/26 0701 - 01/27 0700 In: 2345.9 [P.O.:75; I.V.:1870.9] Out: 3705 [Urine:3705] Admit weight: 102.5 kg Current weight: Weight: 109.2 kg (240 lb 11.9 oz) Physical Exam: General: awake, calm, responds to commands, Oriented. Neuro: CN intact. Moves all extremities. Pupils equal Lungs: CTABL, coarse throughout. Heart: RRR S1 and S2 heard. Sinus on tele. Abdomen: Hypoactive BS.ND. Ext: slightly cool/ pale. + distal pulses. No rashes. Incisions: c/d/i Tubes/Lines/Drains: kayla, ab, danielle, JOELLE Assessment/Plan: 66 y.o. male 6 Days Post-Op CABG x 3. Anaphylaxis to albumin likely; treated. Cardiogenic shock resolved. Now with delirium. - HOLD ON ALBUMIN, VECURONIUM, CEFTRIAXONE. - Tryptase came back at 12.5; IgA level normal. Allergy following. - Replete K+ - Lasix 20mg IV daily, goal net neg 1L - On Metop 50 BID, will increase to 75 bid - Clonidine 0.1'' - Norvasc to 10' - Reg diet - Discussed with patient and reviewed records, very low concern for alcohol withdrawal - social drinker 1-2 drinks with dinner intermittently has never withdrawn - Cont PO hydralazine for SBP>140 - Cannot add lisinopril has anaphylactic hx - Transfer when ready - Melatonin for sleep - Subq hep dvt proph Neuro: APAP, oxy prn, melatonin qhs CV: Nitro/hydralazine today goal SBP<140, metop 75mg '', cannot add lisinopril due to allergy Clonidine 0.1'', Norvasc 10' Pulm: IS GI: reg diet, NBOs, protonix : d/c Dailey Renal: K+ prn, lasix 20 IV daily goal net neg 1 L today Heme: ASA 81', subq hep ID: No needs Endo: SSI Dispo: CVCC; Full Code. Discussed with attending surgeon on rounds this morning. BREANA PARIKH 01/27/2022 Between the hours of 1800 - 0600 and on the weekends please page [phone]. Ayaka Caldwell, PT - 01/27/2022 2:58 AM EDT Physical Therapy Note Treatment Number PT: 2 Patient profile: Vinod Ochoa Jr.??is a 66 y.o.??male??with CAD who is 5 Days Post-Op??cabg x 3 on 01/21/22. Course complicated by post-op delirium. PMH of CAD with PCI Hx, DM II, HLD. Interval History: - HTN still on Nitro gtt @ 200. Metop, hydral, Norvasc increased - remains delirious - agitation improved - renal function continues to improve Social History: Pt able to answer questions today with some impaired short term memory: unclear if history is accurate. Per pt report today, he lives alone. 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 He repots he will go to one of there houses upon d/c ( will need to follow-up with family. Unclear of his home set-up. Pt stated that he lives in [place]. Precautions/Special Considerations: STERNAL PRECAUTIONS (No pushing, pulling or lifting >8-10lbs); at risk to fall; IJ; impaired mental status/memory Mobility and Positioning Recommendations: ?? Ambulate 3-4x/daily with nursing with rolling walker; 1 assist for balance; close chair follow ?? OOB in chair for all meals Subjective: I see water flowing on the bed but I know it's not really there Objective: Patient seen for physical therapy and demonstrated the following: Pt was in cc upon PT arrival to session. Pt left in cc at end of session with call ballesteors in reach and chair alarm on. Pain: Pt didn't report any pain today. Vital Signs: Pt performed all PT activities while on room air BP: 135/72 at rest; 147/77 after activity RR: 20 at rest; 26 during ambulation HR: 80 at rest; 80's with activity SpO2: 98% (at rest, 1.5L nc O2); 96-97% (after ambulation, room air) Cognition/Vision: alert; oriented to self; willing to participate with PT activities Bed Mobility: Supine to Sit: nt Sit to Supine: nt Transfers: Sit to Stand: contact guard assist x 1 using rolling walker Stand to Sit: contact guard assist x 1 using rolling walker Gait: needed mod verbal cueing to for proper use of fww Distance: 150 ft Device used: rolling walker Level of assist: contact guard assist x 1 w/ chair follow Gait mechanics: decreased step length, decreased gait speed, increased forward lean over fww, mild deficits with swing phase and proper heel strike bilaterally Stairs: nt Balance: Sitting Static: good Sitting Dynamic: good; able to perform inspiratory muscle training Standing Static: good; tolerated with fww Standing Dynamic / Gait: fair; needed fww for safe ambulation Education: Pt education on proper breathing mechanics and importance of remaining upright for lung clearance Therex: active shoulder flexion, long arc quads, ankle pumps, active cervical flex/ext and rotations Assessment: Vinod Ochoa was seen today for physical therapy treatment session for continuation of POC. Pt was pleasant to work with. He still seemed mildly confused and delirious. Pt was able to be weaned to room air at beginning of session and vitals remained stable throughout. He was ableto ambulate farther today than last PT visit. Pt did show increased work of breathing and fatigue while ambulating. His current barriers to independence in functional mobility include decreased activity tolerance, increased work of breathing, UE sternal precautions, and mental/delirious state. Pt willbenefit from ongoing therapeutic interventions to achieve therapy goals to maximize functional abilit ies. Discharge Recommendations: Based on the current findings, Anticipated Discharge Disposition (PT): to be determined pending medical status & functional progression when medically ready for hospital discharge. Consult Recommendations: No other consults recommended at this time. Equipment needs: Anticipated Equipment Needs at Discharge (PT): to be determined Physical Therapy Goals: To be achieved by 01/30/22 1. Pt will perform supine to sit transfers with supervision to/from flat bed, log roll technique with assist of family. 2. Pt will perform sit><stand transfers with supervision with least restrictive device 3. Pt will perform bed to chair transfers with supervision with least restrictive device 4. Pt will ambulate at least 160' with supervision with least restrictive device. 5. Pt will perform 6 stairs with rail, LRAD and supervision. Plan: Therapy Frequency (PT): 2-4 times/wk for therapy interventions as outlined in initial evaluation. Patient agrees with plan as stated. Time IN / OUT: 1430 - 1458 Total Minutes, Physical Therapy: 28 Billing Code: TAx2 Debbi Waters, [facility] Physical Therapy Inpatient Rehabilitation Department I was present for this rx and agree with the contents of this note. Ayaka Caldwell PT #[id number] Chris Thompson, PT - 01/26/2022 2:50 PM EDT Physical Therapy Evaluation Patient profile: Vinod Ochoa Jr. is a 66 y.o. male with CAD who is 5 Days Post-Op cabg x 3 on01/21/22. Course complicated by post-op delirium. PMH of CAD with PCI Hx, DM II, HLD. 24h Events: Remains in he CVCC; remains in wrist restraints - On precedex 1.2 this am; knows he is at , Had heart surgery, Dr. Jewell is his surgeon. - impulsive - Hydral PO started for HTN. Patient with the following active problems: Past Medical History: Diagnosis Date ??? ASCVD [...] CATHERIZATION stent placement ? ? PRG CATH [facility] CORONARY ART W/INJ FOR ANGIO W/R HEART CATH IMG S&I N/A 01/13/2022 CORONARY ANGIOGRAPHY; W RHC performed by Polo Beckham MD at [facility] CATH LABS ??? PRO CABG, ARTERIAL, SINGLE N/A 01/21/2022 @CABG, USING ARTERIAL GRAFT;SINGLE ARTERIAL GRAFT (WRVU 33.75) performed by Danny Jewell MD at [facility] MAIN OR ??? PRO CABG, ARTERY-VEIN, TWO N/A 01/21/2022 @CABG, TWO VENOUS GRAFTS & ARTERIAL GRAFT (WRVU 7.93) performed by Danny Jewell MD at [facility] MAIN OR ??? PRO ENDOSCOPY W/VIDEO-ASST VEIN HARVEST, CABG Right 01/21/2022 ENDOSCOPIC HARVEST VEIN(S) FOR CABG (WRVU 0.31) performed by Danny Jewell MD at [facility] MAIN OR Social History: Pt able to answer questions today with some impaired short term memory: unclear if history is accurate. Per pt report today, he lives alone. 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 He repots he will go to one of there houses upon d/c ( will need to follow-up with family. Unclear of his home set-up. Precautions/Special Considerations: STERNAL PRECAUTIONS (No pushing, pulling or lifting >8-10lbs); at risk to fall; IJ; wrist restraints; impaired mental status/memory Mobility and Positioning Recommendations: ?? Ambulate 3-4x/daily with nursing with rolling walker; 1 assist for balance; close chair follow ?? OOB in chair for all meals Subjective: ???I want to get back to the bed.?? Pt requesting once up in chair. Redirected and leftin chair; RN outside door; chair alarm in place. Pt agreeable to stay in chair for an hour. RN present and aware. Objective: Pt seen in the CVCC for initial evaluation, post operative protocol exs and precaution teaching w/ transfers and gait. Pt in bed at start of session; in chair at end of session with call ballesteros in reach, chair alarm; wrist restraints in place but not tied per RN request ( RN outside door and to watch). Vital Signs: At Rest With Activity SpO2 (2L) 96 % 86% on RA when trialed; 94% on 2L BP (MAP) 118/70 mmHg 126/77 mmHg HR stable stable Incentive Spirometer: not assessed Pain: 0/10 reported by patient at rest; 0/10 with mobility Mental Status: Alert. Oriented to hospital but could not name. Knew here for heart surgery. Reporting it ws March. Re-oriented to date but unable to remember when asked in 5 mins. Impaired memory. Impaired insight into deficits. Skin: Sternal incision CDI. Musculoskeletal: ROM: WFL Strength: B LE's 4/5 Bed Mobility: Supine ->Sit: mod assist for LE's; max assist for trunk; max cues for sternal precautions Sit-> Supine: not assessed Transfers: Sit to Stand: min assist x 1, Cg of second person to rolling walker; cues for hand placement Stand to Sit: cg assist x 2; cues Gait: Ambulated 5-6 steps to chair; Ambulated 50 ft in hallway with rolling walker and cg-min assistx 1; close chair follow. Balance: seated: good; Standing: fair with walker Stairs: not assessed Education/Exercise Instruction: Pt issued an exercise list and instructed in the ex's for home including: ankle pumps, shoulder ff to prevent shoulder contractures, IS with deep breathing and cough technique. Pt was instructed in precautions and will require reinforcement with sternal precautions Assessment: Pt is now POD # 5 s/p above CT surgery with sternotomy presenting with post operative pain, impaired memory, impaired cognition, impaired skin integrity, impaired breathing mechanics, impaired cough, impaired activity tolerance resulting in decreased functional balance, impaired transfers and gait. Pt requires cues for sternal precautions, pacing and breathing techniques with all mobilityat this time. Pt able to get OOB to chair for the first time since surgery today with 2 assist. He ambulated a short distance in the hallway with walker and close chair follow. He is at high risk to fall and requires max cueing for precautions and safety. D/c plan will depend on pt's progress over thecoming days. Hopeful his mental status improves and pt will make gains and be safe for home d/c withfamily. Pt reports he can stay with siblings upon d/c. (will need to clarify as he lives alone). Depending on progress he may need a short rehab stay prior to d/c home. Will continue to assess. Plan: 2-4x/week for continued transfer training, gait, stairs and pt education. Discharge Recommendations: D/c plan will depend on pt's progress over the coming days. Hopeful his mental status improves and pt will make gains and be safe for home d/c with family. Pt reports he can stay with siblings upon d/c. (will need to clarify as he lives alone). Depending on progress he may need a short rehab stay prior to d/c home. Will continue to assess. Equipment needs for home at d/c: TBD; unclear if owns DME Goals to be achieved by 01/30/22. 1. Pt will perform supine to sit transfers with supervision to/from flat bed, log roll technique with assist of family. 2. Pt will perform sit><stand transfers with supervision with least restrictive device 3. Pt will perform bed to chair transfers with supervision with least restrictive device 4. Pt will ambulate at least 160' with supervision with least restrictive device. 5. Pt will perform 6 stairs with rail, LRAD and supervision. Patient status, treatment, and mobility recommendations have been discussed with nursing, Care management and Medical team. Thank you for this consult. 2017 PT Evaluation Code Rationale: ?? Diagnosis & Pertinent Co-Morbidities, personal factors, and present illness affecting Plan ofCare: (see above); Additional personal factors or co- morbidities that impact plan: ?? Total # of Factors: 0 1-2 3+ x ?? Examination of body system impairments, functional limitations and behaviors, and/or participation restrictions. Addressing 1-2 elements Addressing 3 + elements Addressing 4 + elements x ?? Clinical presentation: See assessment above. Stable/Uncomplicated Evolving/Fluctuating Symptoms Unstable/Unpredictable x ?? Clinical decision making of moderate complexity based on pt's functional performance as outlined in this evaluation. CHRIS THOMPSON, PT Pager: [phone] Physical Therapy Inpatient Rehabilitation Department Time IN / OUT: 2201-9264 Total time: 38 mins ( eval) Damián Grove PA - 01/26/2022 8:32 AM EDT Cardiac Surgery Progress Note Vinod Ochoa Jr. is a 66 y.o. male with CAD who is 5 Days Post-Op cabg x 3. PMH of CAD with PCI Hx, DM II, HLD. 24h Events: - On precedex 1.2 this am; knows he is at , Had heart surgery, Dr. Jewell is his surgeon. - impulsive - Hydral PO started for HTN. S: Doing ok. Able to answer he is at , had heart surgery and his DrChelsey Is Dr. Jewell. Not hungry, wants to drink. Still feels out of it. Breathing ok. Feels weak. - BM. O: Temp: [36.1 ??C (96.98 ??F)-38.3 ??C (100.94 ??F)] Heart Rate: [76-96] Resp: [12-30] BP: (111-164)/(67-84) SpO2: [93 %-100 %] Heart Rate from SpO2: [75 bpm-98 bpm] 01/25 0701 - 01/26 0700 In: 2807.2 [P.O.:100; I.V.:2107.2] Out: 3275 [Urine:3275] Admit weight: 102.5 kg Current weight: Weight: 110.5 kg (243 lb 9.7 oz) Physical Exam: General: awake, calm, responds to commands and some questions appropriately but is intermittently delirious and remarks I think I am hallucinating. Oriented. Neuro: CN intact. Moves all extremities. Pupils equal Lungs: CTABL, coarse throughout. Heart: RRR S1 and S2 heard. Sinus on tele. Abdomen: Hypoactive BS.ND. Ext: slightly cool/ pale. + distal pulses. No rashes. Incisions: c/d/i Tubes/Lines/Drains: piv, dailey, danielle, TPW, RIJ Assessment/Plan: 66 y.o. male 5 Days Post-Op CABG x 3. Anaphylaxis to albumin likely; treated. Cardiogenic shock resolved. Now with delirium. - HOLD ON ALBUMIN, VECURONIUM, CEFTRIAXONE. - Tryptase came back at 12.5; IgA level normal. Allergy following. - Replete K+ - Lasix 20mg daily, goal net neg 1L - Increase IV metop to 7.5, monitor as wean off precedex if need to increase metop and convert to POwhen able - Sips/chips while delirious - Discussed with patient and reviewed records, very low concern for alcohol withdrawal - social drinker 1-2 drinks with dinner intermittently has never withdrawn - Cont PO hydralazine for SBP>140 (IV not available) - Cannot add lisinopril has anaphylactic hx - Remain in CVCC today - Melatonin for sleep - D/C TPW - Subq hep dvt proph - Plan to try and stay off precedex completely. Neuro: APAP, oxy prn, melatonin qhs CV: Nitro/hydralazine today goal SBP<140, metop 7.5mg IV Q6H may need to go to PO and increase asweans off precedex, cannot add lisinopril due to allergy Pulm: IS GI: sips/chips only will adv once delirium clears, NBOs, protonix : Dailey Renal: K+ prn, lasix 20 once goal net neg 1 L today Heme: ASA 81', subq hep ID: No needs Endo: Insulin gtt. Dispo: CVCC; Full Code. Discussed with attending surgeon on rounds this morning. BREANA PARIKH 01/26/2022 Between the hours of 1800 - 0600 and on the weekends please page [phone]. Lizzie Montes DT - 01/26/2022 8:15 AM EDT Nutrition NPO Note Vinod Ochoa Jr. is a 66 y.o. male Patient is has been on NPO/clear liquid diet only for 5 days, increasing risk for malnutrition. If clinically unable to advance oral diet consider consult to Nutrition Services to evaluate for potential nutrition support. Visualized patient for overt cachectic appearance: no Active Orders Diet Sips and Chips (Give Meds) Frequency: Effective Now Number of Occurrences: Until Specified Admit Weight: 102.5 kg Estimated body mass index is 33.03 kg/m?? as calculated from the following: Height as of this encounter: 182.9 cm (6' 0.01). Weight as of this encounter: 110.5 kg (243 lb 9.7 oz). Wt Readings from Last 5 Encounters: 01/25/22 110.5 kg (243 lb 9.7 oz) 01/17/22 102.5 kg (226 lb) 01/13/22 97.5 kg (215 lb) 01/01/22 99.8 kg (220 lb) 04/18/21 97.5 kg (215 lb) Weight loss: none ARACELI Loo Pager: [phone] Aron Darling MD - 01/26/2022 6:10 AM EDT CARDIAC CRITICAL CARE STAFF PROGRESS NOTE Author: Aron Darling MD, PhD Patient seen and examined on critical care rounds. [id number] Vinod Ochoa Jr. is a 66 y.o.male with the following active issues: Patient Active Problem List Diagnosis Code ??? ASCVD (arteriosclerotic cardiovascular disease) I25.10 ??? Diabetes mellitus E11.9 ??? Hyperlipidemia E78.5 ??? Hyperpiesia I10 ??? Acquired deformity of foot M21.969 ??? Plantar fasciitis of left foot M72.2 ??? CAD (coronary artery disease) I25.10 PROCEDURES: 01/21/2022 Procedure(s): @CABG, USING ARTERIAL GRAFT;SINGLE ARTERIAL GRAFT (WRVU 33.75) ENDOSCOPIC HARVEST VEIN(S) FOR CABG (WRVU 0.31) @CABG, TWO VENOUS GRAFTS & ARTERIAL GRAFT (WRVU 7.93) Surgeon(s) and Role: * Danny Jewell MD - Primary * Luiz Viramontes PA - Physician Director Banking * Librado Cueva PA - Physician Director Banking 24 HOUR EVENTS: Delirious, impulsive overnight Precedex uptitrated to 1.2 2L NC I/o -450 Cr 0.86 ASSESSMENT: 66 y.o.male??h/o HTN, HL, DM,??and CAD??now??5??Days??Post-Op??s/p CABGx4. Thus far, ICU course notable for??suspected anaphylatic reaction to albumin, inotrope and pressor requirement and KEKE now resolved. ?? MANAGEMENT AND DECISION MAKING: Demonstrating some delirium, wean precedex to off today. Focus on non- pharmcologic anti-delirium interventions including reorientation, maintenance of sleep/wake cycle, removal of lines/tubes as possible. ?? Continued hypertension on NTG gtt. Uptitrate BB and consider CCB (ACEI allergy) if safely able to take POs. ?? Saturating well on 2L NC, aggressive pulmonary toilet/IS and OOBtC if safe to do that later today. ?? Ongoing deresuscitation, low dose lasix for goal -1L today SQH given not mobile thus far. ?? PHYSICAL EXAM: BMI:??Body mass index is 32.64 kg/m??. ?? Gen: Lying in bed,??opens eyes spontaneously N:?? Appropriately answers questions, follows commands CV:??Regular P:??Globally coarse GI:??Soft, NTTP, ND Ext:??Extremities??with??adequate cap refil,??1+ edema Other: TLD: R IJ CVC, Radial a line, TPW, Dailey ?? Patient Vitals for the past 168 hrs: Weight 01/25/22 0400 110.5 kg (243 lb 9.7 oz) 01/24/22 040 110.7 kg (244 lb 0.8 oz) 01/23/22 0429 113.5 kg (250 lb 3.6 oz) 01/22/22 040 109.2 kg (240 lb 11.9 oz) 01/21/22 1215 102.5 kg (225 lb 15.5 oz) Admit Weight: 102.5 kg Last value Range last 24 hrs Temperature Temp: 36.9 ??C (98.42 ??F) Temp: [35.8 ??C (96.44 ??F)-38.3 ??C (100.94 ??F)] Heart Rate Heart Rate: 78 Heart Rate: [74-96] Blood Pressure BP: 130/79 BP: (111-164)/(67-84) Respiratory Rate Resp: 15 Resp: [11-30] SpO2 SpO2: 94 % SpO2: [93 %-100 %] Art BP BP (Arterial Line): 150/66 BP (Arterial Line): (134-178)/(59-75) PAP Range PAP (mmHg): -- Intake/Output Summary (Last 24 hours) at 01/26/2022 0610 Last data filed at 01/26/2022 0400 Gross per 24 hour Intake 2462.79 ml Output 3125 ml Net -662.21 ml CBC: Recent Labs 01/23/22 0610 01/22/22 0200 01/21/22 1440 01/21/22 1130 WBC 10.2* 17.9* -- 4.6 HGB 8.2* 11.7* 11.9* 8.1* HCT 22.6* 32.9* -- 23.1* PLATELET 129* 235 -- 105* Coags: Recent Labs 01/21/22 1130 PT 16.0* INR 1.4 PTT 31 Chem Panel: Recent Labs 01/26/22 0300 01/25/22 1615 01/25/22 1230 01/25/22 0850 01/25/22 0200 01/24/22 0943 01/24/22 0230 NA 137 -- -- -- 142 -- 141 K 3.4* 4.1 3.8 < > 3.3* < > 3.4* CL 103 -- -- -- 108* -- 108* CO2 23 -- -- -- 25 -- 24 BUN 10 -- -- -- 12 -- 18 CREATININE 0.86 -- -- -- 0.88 -- 1.15 GLUCOSE 140 -- -- -- 131 -- 156 CALCIUM 7.9* -- -- -- 7.7* -- 7.7* < > = values in this interval not displayed. IS PATIENT CRITICALLY ILL ? Is there a high potential of sudden, clinically significant, or life threatening deterioration? No Aron Darling MD, PhD Diann Ambrocio MD - 01/25/2022 10:32 AM EST Cardiac Surgery Progress Note Vinod Ochoa Jr. is a 66 y.o. male with CAD who is 4 Days Post-Op cabg x 3. PMH of CAD with PCI Hx, DM II, HLD. 24h Events: - On precedex 1 this am, given seroquel 25 when became delirious last evening and pulled out PAC. This am pleasant but intermittently delirious, answers questions appropriately but then is confused where he is and what is happening - Milrinone weaned off, Nitro@100 this am for SBP<140 goal - Extubated, on 3LNC this am - Metop 5mg IV Q6H started, HR 70s (but also on precedex this am) - Lasix 20mg BID yesterday w/ 5.8L Uop, net neg 3.6 O: Temp: [35.8 ??C (96.44 ??F)-37.4 ??C (99.32 ??F)] Heart Rate: [74-115] Resp: [10-30] BP: -- SpO2: [94 %-99 %] Heart Rate from SpO2: [74 bpm-115 bpm] 01/24 0701 - 01/25 0700 In: 2787.8 [I.V.:2487.8] Out: 6190 [Urine:5840] Admit weight: 102.5 kg Current weight: Weight: 110.5 kg (243 lb 9.7 oz) Physical Exam: General: awake, calm, responds to commands and some questions appropriately but is intermittently delirious and remarks I think I am hallucinating Neuro: Intubated and sedated. Pupils equal Lungs: CTABL, coarse throughout. Heart: RRR S1 and S2 heard. Sinus on tele. Abdomen: Hypoactive BS.ND. Ext: slightly cool/ pale. + distal pulses. No rashes. Incisions: c/d/i Tubes/Lines/Drains: piv, dailey, danielle, TPW, RIJ Assessment/Plan: 66 y.o. male 4 Days Post-Op CABG x 3. Anaphylaxis to albumin likely; treated. Cardiogenic shock resolved. Now with delirium. - HOLD ON ALBUMIN, VECURONIUM, CEFTRIAXONE. - F/U tryptase; IgA level normal. Allergy following. - Replete K+ - Lasix 20mg only once today, goal net neg 1L - Cont with IV metop, monitor as wean off precedex if need to increase metop and convert to PO - Sips/chips while delirious - Discussed with patient and reviewed records, very low concern for alcohol withdrawal - social drinker 1-2 drinks with dinner intermittently has never withdrawn - Added prn PO hydralazine for SBP>140 (IV not available) - Cannot add lisinopril has anaphylactic hx - Remain in CVCC today Neuro: APAP, oxy prn CV: Nitro/hydralazine today goal SBP<140, metop 5mg IV Q6H may need to go to PO and increase as weans off precedex, cannot add lisinopril due to allergy Pulm: IS GI: sips/chips only will adv once delirium clears, NBOs, protonix : Dailey Renal: K+ prn, lasix 20 once goal net neg 1 L today Heme: ASA 81' ID: No needs Endo: Insulin gtt. Dispo: CVCC; Full Code. Discussed with attending surgeon on rounds this morning. Diann Ambrocio MD 01/25/2022 Between the hours of 1800 - 0600 and on the weekends please page [phone]. Aron Darling MD - 01/25/2022 6:02 AM EST CARDIAC CRITICAL CARE STAFF PROGRESS NOTE Author: Aron Darling MD, PhD Patient seen and examined on critical care rounds. [id number] Vinod Ochoa Jr. is a 66 y.o.male with the following active issues: Patient Active Problem List Diagnosis Code ??? ASCVD (arteriosclerotic cardiovascular disease) I25.10 ??? Diabetes mellitus E11.9 ??? Hyperlipidemia E78.5 ??? Hyperpiesia I10 ??? Acquired deformity of foot M21.969 ??? Plantar fasciitis of left foot M72.2 ??? CAD (coronary artery disease) I25.10 PROCEDURES: 01/21/2022 Procedure(s): @CABG, USING ARTERIAL GRAFT;SINGLE ARTERIAL GRAFT (WRVU 33.75) ENDOSCOPIC HARVEST VEIN(S) FOR CABG (WRVU 0.31) @CABG, TWO VENOUS GRAFTS & ARTERIAL GRAFT (WRVU 7.93) Surgeon(s) and Role: * Danny Jewell MD - Primary * Luiz Viramontes PA - Physician Director Banking * Librado Cueva PA - Physician Director Banking 24 HOUR EVENTS: Extubated yesterday AM 3L NC Milrinone weaned off I/O -3.4L Some agitation, self removed PAC Precedex Hypertensive, on NTG gtt ASSESSMENT: 66 y.o.male??h/o HTN, HL, DM,??and CAD??now 4 Days Post-Op??s/p CABGx4. Thus far, ICU course notablefor??suspected anaphylatic reaction to albumin, inotrope and pressor requirement, KEKE, hypoxemic respiratory failure.? MANAGEMENT AND DECISION MAKING: Demonstrating some delirium, trial weaning precedex to off today. Focus on non- pharmcologic anti-delirium interventions including reorientation, maintenance of sleep/wake cycle, removal of lines/tubes as possible. CI > 3 at time of Mcdonald removal, hypertensive on NTG gtt. Uptitrate BB and start afterload reduction, may need CCB given ACEI allergy Saturating well on 3L NC, aggressive pulmonary toilet/IS and OOBtC if safe to do that later today. Ongoing deresuscitation, low dose lasix for goal -1-2L today ?? PHYSICAL EXAM: BMI:??Body mass index is 32.64 kg/m??. ?? Gen: Lying in bed, drowsy, opens eyes spontaneously N: Appropriately answers questions, follow scommands CV:??Regular P:??Globally coarse GI:??Soft, NTTP, ND Ext:??Extremities??with??adequate cap refil,??1+ edema Other: TLD: R IJ CVC, Radial a line, TPW, Dailey Patient Vitals for the past 168 hrs: Weight 01/25/22 0400 110.5 kg (243 lb 9.7 oz) 01/24/22 0400 110.7 kg (244 lb 0.8 oz) 01/23/22 0429 113.5 kg (250 lb 3.6 oz) 01/22/22 0400 109.2 kg (240 lb 11.9 oz) 01/21/22 1215 102.5 kg (225 lb 15.5 oz) Admit Weight: 102.5 kg Last value Range last 24 hrs Temperature Temp: 36 ??C (96.8 ??F) Temp: [36 ??C (96.8 ??F)-37.4 ??C (99.32 ??F)] Heart Rate Heart Rate: 75 Heart Rate: [70-115] Blood Pressure BP: 141/80 BP: -- Respiratory Rate Resp: 11 Resp: [10-30] SpO2 SpO2: 97 % SpO2: [92 %-100 %] Art BP BP (Arterial Line): 131/61 BP (Arterial Line): (120-204)/(55-92) PAP Range PAP (mmHg): (24-44)/(12-22) Intake/Output Summary (Last 24 hours) at 01/25/2022 0602 Last data filed at 01/25/2022 0400 Gross per 24 hour Intake 2602.15 ml Output 6015 ml Net -3412.85 ml CBC: Recent Labs 01/23/22 0610 01/22/22 0200 01/21/22 1440 01/21/22 1130 WBC 10.2* 17.9* -- 4.6 HGB 8.2* 11.7* 11.9* 8.1* HCT 22.6* 32.9* -- 23.1* PLATELET 129* 235 -- 105* Coags: Recent Labs 01/21/22 1130 PT 16.0* INR 1.4 PTT 31 Chem Panel: Recent Labs 01/25/22 0200 01/24/22 1645 01/24/22 0943 01/24/22 0230 01/23/22 1733 01/23/22 0200 NA 142 -- -- 141 -- 135 K 3.3* 3.8 3.6 3.4* < > 4.5 CL 108* -- -- 108* -- 104 CO2 25 -- -- 24 -- 20* BUN 12 -- -- 18 -- 25* CREATININE 0.88 -- -- 1.15 -- 2.06* GLUCOSE 131 -- -- 156 -- 193 CALCIUM 7.7* -- -- 7.7* -- 7.8* < > = values in this interval not displayed. IS PATIENT CRITICALLY ILL ? Is there a high potential of sudden, clinically significant, or life threatening deterioration? No Aron Darling MD, PhD Johnny Buenrostro [facility] - 01/24/2022 1:52 PM EST Respiratory Therapy NIV Note NIV Settings: NC 6L NIV Mode: CPAP EPAP (cmH20): 5 FiO2 (%): 45 % O2 Bleed In (LPM): 0 L/min NIV Measurements: Resp: 14 Mve: 12.5 Leak (L/min): 35 L/min Vte: 417 SpO2: 96 % Laboratory: Lab Results Component Value Date/Time PHART 7.42 01/24/2022 09:43 AM NCT1BPO 38 01/24/2022 09:43 AM PO2ART 65 (L) 01/24/2022 09:43 AM ESP6QXX 24.5 01/24/2022 09:43 AM BEART 0.0 01/24/2022 09:43 AM Last Chest X-ray: Results for orders placed during the hospital encounter of 01/21/22 XR Chest One View Narrative EXAMINATION: XR CHEST ONE VIEW CLINICAL HISTORY: s/p CABG TECHNIQUE: 1 view of the chest COMPARISON: Chest x-ray 01/17/2022 FINDINGS: Right-sided approach PA catheter in place with the tip projecting midline. The patient is intubated with ET tube tip projecting at the thoracic inlet. Pericardial drains are present and there is a left-sided chest tube with the tip projecting the region of the left-sided hilum. Lung volumes are low. The cardiac silhouette is within normal limits. Streaky opacities are present in each lung base. No large pleural effusion. No pneumothorax. Impression Multiple support lines and tubes as described above. Probable subsegmental hypoventilatory atelectasis. No pneumothorax. No large volume pleural fluid collection. Thank you for letting us participate in the care of this patient. If you are a health care provider and have any questions regarding this report, please contact the number below. For patients who have questions please contact the health acute care physical therapist that requested your imaging first. Electronically signed by: Catrachito Cisneros MD, [facility] ([phone]), at 01/21/2022 1:00 PM Skin Assessment: NIV Skin Assessment WDL: WDL Nares Assessment WDL: WDL Assessment: Patient extubated this morning at 10:30 to CPAP initially then to HFNC due to nausea, vomiting. HFNC set to 35L, FIO2-40%, then transitioned to 6L nasal cannula, pt remains fluid positive and on lasix Johnny Buenrostro RCP Damián Grove PA - 01/24/2022 9:57 AM EST Cardiac Surgery Progress Note Vinod Long Xu Hanks is a 66 y.o. male with CAD who is 3 Days Post-Op cabg x 3. PMH of CAD with PCI Hx, DM II, HLD. 24h Events: - Diuresed yesterday on lasix well. S: Intubated and sedated. O: Temp: [35.8 ??C (96.44 ??F)-36.5 ??C (97.7 ??F)] Heart Rate: [67-111] Resp: [12-22] BP: -- SpO2: [92 %-100 %] Heart Rate from SpO2: [49 bpm-111 bpm] Hemodynamics: CI 2.5 PAP 30-40/10-20 CVP 11-16 Drips: FEnt 50 Prop 50 Precedex Mil 0.125 Vent settings: SIMV 15/650/40%/8 01/23 0701 - 01/24 0700 In: 2713.3 [I.V.:2713.3] Out: 6290 [Urine:6240] Admit weight: 102.5 kg Current weight: Weight: 110.7 kg (244 lb 0.8 oz) Physical Exam: General: Intubated and sedated. Neuro: Intubated and sedated. Pupils equal Lungs: CTABL, coarse throughout. Heart: RRR S1 and S2 heard. Sinus on tele. Abdomen: Hypoactive BS.ND. Ext: slightly cool/ pale. + distal pulses. No rashes. Incisions: c/d/i Tubes/Lines/Drains: piv, dailey, danielle, TPW, RIJ, swan Assessment/Plan: 66 y.o. male 3 Days Post-Op CABG x 3. Anaphylaxis to albumin likely; treated. Cardiogenic shock resolved. HOLD ON ALBUMIN, VECURONIUM, CEFTRIAXONE. F/U tryptase; IgA level normal. Allergy following. Plan to extubate.. Lasix 20 IV BID Wean milrinone later Daily BMPs Plan to keep SBP >100. Ideally >110. Neuro: APAP CV: Mil, goal SBP>110. Pulm: SIMV vent, wean as able. GI: RBOs, protonix : Dailey Renal: K+ prn, lasix 20 IV bid Heme: ASA 81' ID: No needs Endo: Insulin gtt. Dispo: CVCC; Full Code. Discussed with attending surgeon on rounds this morning. BREANA PARIKH 01/24/2022 Between the hours of 1800 - 0600 and on the weekends please page [phone]. Aron Darling MD - 01/24/2022 5:07 AM EST CARDIAC CRITICAL CARE STAFF PROGRESS NOTE Author: Aron Darling MD, PhD Patient seen and examined on critical care rounds. [id number] Vinod Ochoa Jr. is a 66 y.o.male with the following active issues: Patient Active Problem List Diagnosis Code ??? ASCVD (arteriosclerotic cardiovascular disease) I25.10 ??? Diabetes mellitus E11.9 ??? Hyperlipidemia E78.5 ??? Hyperpiesia I10 ??? Acquired deformity of foot M21.969 ??? Plantar fasciitis of left foot M72.2 ??? CAD (coronary artery disease) I25.10 PROCEDURES: 01/21/2022 Procedure(s): @CABG, USING ARTERIAL GRAFT;SINGLE ARTERIAL GRAFT (WRVU 33.75) ENDOSCOPIC HARVEST VEIN(S) FOR CABG (WRVU 0.31) @CABG, TWO VENOUS GRAFTS & ARTERIAL GRAFT (WRVU 7.93) Surgeon(s) and Role: * Danny Jewell MD - Primary * Luiz Viramontes PA - Physician Director Banking * Librado Cueva PA - Physician Director Banking 24 HOUR EVENTS: Epi weaned to off Mil @ 0.125, CI 2.4 Trending hypertensive, NTG started Following commands this AM Vent support weaned to 0.4, P5 I/O -3.5L Cr 2 -> 1.1 ASSESSMENT: 66 y.o.male??h/o HTN, HL, DM,??and CAD??now 3 Days Post-Op??s/p CABGx4. Thus far, ICU course notablefor??suspected anaphylatic reaction to albumin, inotrope and pressor requirement, KEKE, hypoxemic respiratory failure.? MANAGEMENT AND DECISION MAKING: Weaning sedation for trial of extubation this AM ?? Hemodynamics continue to improve, continues on low dose milrinone, off pressor support. If successfully extubated, will likely need uptitration of afterload reduction/antihypertensive regimen ?? Tolerated weaning for vent support. SBT trial this AM. Given known fluid overload would consider initial extubation to NIPPV ?? Ongoing deresuscitation, low dose lasix for goal -2L today Continuing insulin gtt with goal BG < 180 ? PHYSICAL EXAM: BMI:??Body mass index is 32.64 kg/m??. ?? Gen:??Intubated, opens eyes spontaneously N: Follows commands with small delay CV:??Regular, tachy P:??Globally coarse GI:??Soft, NTTP, ND Ext:??Extremities with adequate cap refil,??1+ edema Other: TLD: R IJ CVC with PAC, Radial a line, TPW, Dailey, ETT Patient Vitals for the past 168 hrs: Weight 01/24/22 0400 110.7 kg (244 lb 0.8 oz) 01/23/22 0429 113.5 kg (250 lb 3.6 oz) 01/22/22 0400 109.2 kg (240 lb 11.9 oz) 01/21/22 1215 102.5 kg (225 lb 15.5 oz) Admit Weight: 102.5 kg Last value Range last 24 hrs Temperature Temp: 36.1 ??C (96.98 ??F) Temp: [36.1 ??C (96.98 ??F)-36.5 ??C (97.7 ??F)] Heart Rate Heart Rate: 67 Heart Rate: [67-84] Blood Pressure BP: 141/80 BP: -- Respiratory Rate Resp: 15 Resp: [15] SpO2 SpO2: 100 % SpO2: [98 %-100 %] Art BP BP (Arterial Line): 144/68 BP (Arterial Line): (101-153)/(53-68) PAP Range PAP (mmHg): (30-38)/(11-18) Intake/Output Summary (Last 24 hours) at 01/24/2022 0507 Last data filed at 01/24/2022 0400 Gross per 24 hour Intake 2895.48 ml Output 6095 ml Net -3199.52 ml CBC: Recent Labs 03/10/22 0610 01/22/22 0200 01/21/22 1440 01/21/22 1130 WBC 10.2* 17.9* -- 4.6 HGB 8.2* 11.7* 11.9* 8.1* HCT 22.6* 32.9* -- 23.1* PLATELET 129* 235 -- 105* Coags: Recent Labs 01/21/22 1130 01/17/22 1636 PT 16.0* 10.6 INR 1.4 0.9 PTT 31 -- Chem Panel: Recent Labs 01/24/22 0230 01/23/22 1733 01/23/22 0200 01/22/22 1515 01/22/22 0200 NA 141 -- 135 -- 137 K 3.4* 3.6 4.5 < > 4.9 CL 108* -- 104 -- 106 CO2 24 -- 20* -- 19* BUN 18 -- 25* -- 20 CREATININE 1.15 -- 2.06* -- 1.63* GLUCOSE 156 -- 193 -- 293* CALCIUM 7.7* -- 7.8* -- 8.2* < > = values in this interval not displayed. IS PATIENT CRITICALLY ILL ? Is there a high potential of sudden, clinically significant, or life threatening deterioration? Yes Is there a need for direct personal assessment and management to treat/prevent multiple vital organfailure/deterioration? Yes PATIENT IS CRITICALLY ILL WITH THESE DIAGNOSES BEING MANAGED BY CARDIAC CRITICAL CARE TEAM: Hypotension Arterial and Postoperative Other Anaphylaxis Renal Disease/Failure Acute Respiratory Failure Acute with hypoxia Postprocedural, Acute I personally performed 35 minutes of aggregate critical care time exclusive of procedures and teaching. The billed time does not overlap with cardiac surgical attending assessement and includes spent during direct patient evaluation and reassessment, interpreting diagnostic tests, directing life and/or organ supporting interventions and documentation on the unit. Aron Darling MD, PhD Azra Fatima, RT - 01/23/2022 8:05 PM EST AMV Protocol: No ARDS Protocol: No CTICU Protocol: Yes SBT Protocol: Yes SBT: not done due to pt not being woken up yet, will attempt later today. Vent Settings: Ventilator Mode: SIMV (VC) + PS Pressure Control above PEEP: PEEP Set: 8 Resp Rate Set: 15 FiO2: 40 % PSV: 12 Ventilator Measurements: Resp: 15 Vt Exhaled: 571 PIP: 21 Vt Spontaneous: 0 MAP: 11.3 Plateau Press: 23 Ve: 8.6 PEEP: 8.1 cmH20 SpO2: 98 % EtCO2: 30 mmHg Airway: 8.0 @ 23 cm at the Teeth. Skin Integrity: WDL Breath Sounds: clear Secretions: Assessment / Events / Plan of the Day: wean as tolerated per protocol with the goal of an SBT and extubation. Will continue to monitor and support. Azra Fatima RT Johnny Buenrostro RCP - 01/23/2022 1:08 PM EST AMV Protocol: No ARDS Protocol: No CTICU Protocol: Yes SBT Protocol: No Vent Settings: Ventilator Mode: SIMV (VC) + PS Tidal Volume Set: 610 Resp Rate Set: 15 PEEP Set: 8 FiO2: (S) 40 % Ventilator Measurements: Resp: 15 Vt Exhaled: 569 PIP: 22 MAP: 11.4 Plateau Press: 23 Ve: 8.6 PEEP: 8.1 cmH20 SpO2: 99 % EtCO2: 29 mmHg Airway: 8.0 @ 23 cm at the Teeth. Skin Integrity: WDL Breath Sounds: clear Secretions: scant Assessment: Received patient intubated and mechanically ventilated in CTICU protocol and SIMV Morning AB.37/37/92/21 FiO2 weaned to 40% Patient is fluid positive 11 liters, plan is to extubated tomorrow. Johnny Buenrostro RCP Uriel Sinha PT - 01/23/2022 11:40 AM EST Physical Therapy Note PT referral received, pt still intubated and sedated, and not appropriate for PT today. PT will follow up as appropriate. RN aware of pt's status. Uriel Sinha, PT Beeper# [phone] Damián Grove PA - 01/23/2022 8:07 AM EST Cardiac Surgery Progress Note Vinod Ochoa Jr. is a 66 y.o. male with CAD who is 2 Days Post-Op cabg x 3. PMH of CAD with PCI Hx, DM II, HLD. 24h Events: - Started LR yesterday. Pressors improved. CI improved. - Sedation increased due to waking. - Epi weaned to 1. Off Levo/Vaso. S: Intubated and sedated. O: Temp: [36.2 ??C (97.2 ??F)-37.4 ??C (99.3 ??F)] Heart Rate: [79-110] Resp: [15-19] BP: -- SpO2: [94 %-99 %] Heart Rate from SpO2: [79 bpm-110 bpm] Hemodynamics: CI 2.8 PAP 30/10 CVP 11-12 Drips: FEnt 50 Prop 50 Precedex Mil 0.25 EPI 1 Vent settings: SIMV 15/650/50%/8 /09 0701 - 03 0700 In: 5381.1 [I.V.:5381.1] Out: 1370 [Urine:1040] CT Med: 250/140 Pleural: 80/30 Net + 3.9L/24 hours Admit weight: 102.5 kg Current weight: Weight: 113.5 kg (250 lb 3.6 oz) Physical Exam: General: Intubated and sedated. Neuro: Intubated and sedated. Pupils equal Lungs: CTABL, coarse throughout. CT's serosanguinous discharge. Heart: RRR S1 and S2 heard. Sinus on tele. Abdomen: Hypoactive BS.ND. Ext: slightly cool/ pale. + distal pulses. No rashes. Incisions: c/d/i Tubes/Lines/Drains: piv, dailey, danielle, TPW, CTs, RIJ, swvazquez Assessment/Plan: 66 y.o. male 2 Days Post-Op CABG x 3. Anaphylaxis to albumin likely; treated. Cardiogenic shock improving. HOLD ON ALBUMIN, VECURONIUM, CEFTRIAXONE. F/U tryptase; IgA level normal. Allergy following. D/C CTs today Keep intubated. Start lasix 20 IV TID Decrease Milrinone to 0.125 today Daily BMPs Plan to keep SBP >100. Ideally >110. Neuro: APAP, Fent, Prop, precedex CV: Mil, Epi, goal SBP>110. Pulm: SIMV vent, wean as able. GI: RBOs, protonix : Dailey Renal: K+ prn, lasix 20 IV tid Heme: ASA 81' ID: No needs Endo: Insulin gtt. Dispo: CVCC; Full Code. Discussed with attending surgeon on rounds this morning. BREANA PARIKH 01/23/2022 Between the hours of 1800 - 0600 and on the weekends please page [phone]. Christiane Syed [facility] - 01/23/2022 5:36 AM EST CTICU Protocol: Yes SBT Protocol: Yes SBT: Not performed due to sedation Vent Settings: Settings: Resp. Rate Set: 15 PS Above PEEP (cm H2O): 12 Set PEEP (cm H2O): 8 Set FiO2: 52 % Inspiratory Time: 0.9 Sec(s) VT/K Measurements: Peak Inspiratory Pressure: 22 Tidal Volume Measured Exp.: 587 Resp: 15 Minute Ventilation Total Exhaled (L/min): 8.8 Mean Airway Pressure (cm H2O): 11.5 SpO2: 99 % ETCO2 (mmHg): 30 mmHg Airway: 8.0 @ 23 cm at the Teeth. Skin Integrity: WDL Breath Sounds: clear Secretions: scant, thin, clear Assessment / Events: Received patient in CTICU protocol sedated in SIMV 610 (8cc/kg)x15+6 PS 12 50%. 2300 AB.38/35/94/20. No vent changes made and no events overnight. Plan of the Day: Wean vent as tolerated. Christiane ySed RCP Aron Darling MD - 01/23/2022 5:27 AM EST CARDIAC CRITICAL CARE STAFF PROGRESS NOTE Author: Aron Darling MD, PhD Patient seen and examined on critical care rounds. [id number] Vinod Ochoa Jr. is a 66 y.o.male with the following active issues: Patient Active Problem List Diagnosis Code ??? ASCVD (arteriosclerotic cardiovascular disease) I25.10 ??? Diabetes mellitus E11.9 ??? Hyperlipidemia E78.5 ??? Hyperpiesia I10 ??? Acquired deformity of foot M21.969 ??? Plantar fasciitis of left foot M72.2 ??? CAD (coronary artery disease) I25.10 PROCEDURES: 01/21/2022 Procedure(s): @CABG, USING ARTERIAL GRAFT;SINGLE ARTERIAL GRAFT (WRVU 33.75) ENDOSCOPIC HARVEST VEIN(S) FOR CABG (WRVU 0.31) @CABG, TWO VENOUS GRAFTS & ARTERIAL GRAFT (WRVU 7.93) Surgeon(s) and Role: * Danny Jewell MD - Primary * Luiz Viramontes PA - Physician Director Banking * Librado Cueva PA - Physician Director Banking 24 HOUR EVENTS: Improving CI and UOP over the evening Lactate normalized Pressors weaned off Epi weaned down Vent requirements stable - 0.5, P8 +12L for hospital course Awoke yesterday ,able to nod head to command, had increasing agitation, precedex was started ASSESSMENT: 66 y.o.male h/o HTN, HL, DM, and CAD now 2 Days Post-Op s/p CABGx4. Thus far, ICU course notable forsuspected anaphylatic reaction to albumin, inotrope and pressor requirement, KEKE, hypoxemic respiratory failure. MANAGEMENT AND DECISION MAKING: Prop/fent for sedation with goal RASS -1 Steadily improving hemodynamic picture, pressor support off with decreasing inotrope requirements. Filling pressures adequate. Decrease epi/mirinone as guided by invasive monitoring. ?? Had bronchospasm/elevated Ppeak associated with anaphylactic reaction, now improved. P/F stable in mid 100s. ?? Trial of deresuscitation while watching CI, goal I/O even today ?? Glycemic control improving from yesterday with decreased epi, continuing insulin gtt with goal BG < 180 ? PHYSICAL EXAM: BMI: Body mass index is 32.64 kg/m??. ?? Gen: Intubated, sedated N: RASS -3 CV: Regular, NSR on monitor P: Globally coarse GI: Soft, NTTP, ND Ext: Extremities with adequate cap refil, 1+ edema Other: TLD: R IJ CVC with PAC, Radial a line, TPW, Dailey, ETT Patient Vitals for the past 168 hrs: Weight 01/23/22 0429 113.5 kg (250 lb 3.6 oz) 01/22/22 0400 109.2 kg (240 lb 11.9 oz) 01/21/22 1215 102.5 kg (225 lb 15.5 oz) Admit Weight: 102.5 kg Last value Range last 24 hrs Temperature Temp: 36.5 ??C (97.7 ??F) Temp: [36.2 ??C (97.2 ??F)-37.4 ??C (99.3 ??F)] Heart Rate Heart Rate: 86 Heart Rate: [86-110] Blood Pressure BP: 141/80 BP: -- Respiratory Rate Resp: 15 Resp: [15-19] SpO2 SpO2: 99 % SpO2: [94 %-99 %] Art BP BP (Arterial Line): 125/66 BP (Arterial Line): (83-152)/(52-67) PAP Range PAP (mmHg): (26-38)/(13-21) Intake/Output Summary (Last 24 hours) at 01/23/2022 0528 Last data filed at 01/23/2022 0400 Gross per 24 hour Intake 5436.55 ml Output 1325 ml Net 4111.55 ml CBC: Recent Labs 01/22/22 0200 01/21/22 1440 01/21/22 1130 01/21/22 1050 01/17/22 1636 WBC 17.9* -- 4.6 -- 7.3 HGB 11.7* 11.9* 8.1* 8.0* 11.9* HCT 32.9* -- 23.1* 22.3* 33.8* PLATELET 235 -- 105* 148 194 Coags: Recent Labs 01/21/22 1130 01/17/22 1636 PT 16.0* 10.6 INR 1.4 0.9 PTT 31 -- Chem Panel: Recent Labs 01/23/22 0200 01/22/22 1515 01/22/22 0200 01/21/22 1440 01/17/22 1636 NA 135 -- 137 -- 139 K 4.5 4.5 4.9 < > 4.0 CL 104 -- 106 -- 102 CO2 20* -- 19* -- 24 BUN 25* -- 20 -- 15 CREATININE 2.06* -- 1.63* -- 1.17 GLUCOSE 193 -- 293* -- 175 CALCIUM 7.8* -- 8.2* -- 9.2 < > = values in this interval not displayed. IS PATIENT CRITICALLY ILL ? Is there a high potential of sudden, clinically significant, or life threatening deterioration? Yes Is there a need for direct personal assessment and management to treat/prevent multiple vital organfailure/deterioration? Yes PATIENT IS CRITICALLY ILL WITH THESE DIAGNOSES BEING MANAGED BY CARDIAC CRITICAL CARE TEAM: Hypotension Arterial and Postoperative Renal Disease/Failure Acute Respiratory Failure Acute with hypoxia Postprocedural, Acute I personally performed 45 minutes of aggregate critical care time exclusive of procedures and teaching. The billed time does not overlap with cardiac surgical attending assessement and includes spent during direct patient evaluation and reassessment, interpreting diagnostic tests, directing life and/or organ supporting interventions and documentation on the unit. Aron Darling MD, PhD Mariana Salazar MSW - 01/22/2022 4:59 PM EST PROCESS ENVIRONMENTAL TECHNICIAN followed up on social work referral to complete Advance Directives. Pt has been intubated today and [facility]'s Water Control Station Engineer plans to follow up with pt tomorrow (or when extubated) to see if patient does want to compete his Advance Directive. PLAN: Either finish specialist or PROCESS ENVIRONMENTAL TECHNICIAN to follow up with pt re advance directives once he is extubated. Mariana Zelaya [facility] [phone] Chris Thompson PT - 01/22/2022 4:01 PM EST PT Note Pt is POD# 1. Physical Therapy referral received. Pt currently intubated/sedated. Not yet approp forPT evaluation. Will follow-up as approp for leila Thompson PT Pager [phone] Gala Matamoros RN - 01/22/2022 11:58 AM EST Reached out to family members for completion of IA. SonAlex unavailable recommended calling daughter Barbara. Left message for Barbara with her to call this RNCM when she returns home from work. stated he would port patrol officer her the message. Damián Grove PA - 01/22/2022 8:54 AM EST Cardiac Surgery Progress Note Vinod Ochoa . is a 66 y.o. male with CAD who is 1 Day Post-Op cabg x 3. PMH of CAD with PCI Hx, DM II, HLD. 24h Events: - Anaphylaxis rxn likely to albumin. Treated with steroids, benadryl, levo/EPI, volume. Rash improved and dissipated. -Allergy consulted tryptase and IgA levels pending. Hold on Albumin, ceftriaxone and vecuronium. - Milrinone added for cardiac stunning with improvement in CI/CO. - Low UOP overnight. Given more volume, bicarb for acidosis. S: Intubated and sedated. O: Temp: [35.2 ??C (95.4 ??F)-36.8 ??C (98.2 ??F)] Heart Rate: [64-96] Resp: [12-20] BP: -- SpO2: [94 %-100 %] Heart Rate from SpO2: [64 bpm-97 bpm] Hemodynamics: CI 2.1 PAP 29/10 CVP 7-9 Drips: FEnt 50 Prop 50 Mil 0.25 EPI 4 Vaso 0.04 Levo 5-8 Vent settings: SIMV 15/650/50%/8 01/21 0701 - 01/22 0700 In: 30149.4 [I.V.:8872.4] Out: 1909 [Urine:674] CT Med: 430/140 Pleural: 280/70 Net + 8L/24 hours Admit weight: 102.5 kg Current weight: Weight: 109.2 kg (240 lb 11.9 oz) Physical Exam: General: Intubated and sedated. Neuro: Intubated and sedated. Pupils equal Lungs: CTABL, coarse throughout. CT's serosanguinous discharge. Heart: RRR S1 and S2 heard. Sinus on tele. Abdomen: Hypoactive BS.ND. Ext: slightly cool/ pale. + distal pulses. No rashes. Incisions: c/d/i Tubes/Lines/Drains: piv, dailey, danielle, TPW, CTs, RIJ, blue Assessment/Plan: 66 y.o. male 1 Day Post-Op CABG x 3. Anaphylaxis to albumin likely; treated. HOLD ON ALBUMIN, VECURONIUM, CEFTRIAXONE. F/U tryptase and IgA levels. Allergy following. Keep CTs today Keep intubated. Run LR @50/hr, give bolus 250cc now. Maintain renal perfusion Consider lasix today or tomorrow. Daily BMPs Plan to keep SBP >100. Ideally >110. Neuro: APAP, Fent, Prop CV: Mil, Epi, Levo, Vaso goal SBP>110. Pulm: SIMV vent, wean as able. GI: RBOs, protonix : Dailey Renal: K+ prn, Heme: ASA 81' ID: No needs Endo: Insulin gtt. Dispo: CVCC; Full Code. Discussed with attending surgeon on rounds this morning. BREANA PARIKH 01/22/2022 Between the hours of 1800 - 0600 and on the weekends please page [phone]. Christiane Syed RCP - 01/22/2022 6:09 AM EST CTICU Protocol: Yes SBT Protocol: Yes Vent Settings: Settings: Resp. Rate Set: 15 PS Above PEEP (cm H2O): 12 Set PEEP (cm H2O): 8 Set FiO2: 50 % Inspiratory Time: 0.9 Sec(s) VT/K Measurements: Peak Inspiratory Pressure: 25 Tidal Volume Measured Exp.: 603 Resp: 16 Minute Ventilation Total Exhaled (L/min): 8.8 Mean Airway Pressure (cm H2O): 17.2 SpO2: 96 % ETCO2 (mmHg): 33 mmHg Airway: 8.0 @ 23 cm at the Teeth. Skin Integrity: WDL Breath Sounds: clear, diminished Secretions: small, thick, yellow Assessment / Events: Received patient sedated on SIMV 610 (8cc/kg)x12+8 PS 10 50%. ABGs trended overnight, no vent changes made. Pt sedated & left intubated for airway protection overnight with no events. Plan of the Day: SBT this morning. Wean to extubate as tolerated. Christiane Syed RCP Aron Barahona MD - 01/22/2022 5:18 AM EST CARDIAC CRITICAL CARE STAFF PROGRESS NOTE Author: Aron Darling MD, PhD Patient seen and examined on critical care rounds. [id number] Vinod Ochoa Jr. is a 66 y.o.male with the following active issues: Patient Active Problem List Diagnosis Code ??? ASCVD (arteriosclerotic cardiovascular disease) I25.10 ??? Diabetes mellitus E11.9 ??? Hyperlipidemia E78.5 ??? Hyperpiesia I10 ??? Acquired deformity of foot M21.969 ??? Plantar fasciitis of left foot M72.2 ??? CAD (coronary artery disease) I25.10 PROCEDURES: 01/21/2022 Procedure(s): @CABG, USING ARTERIAL GRAFT;SINGLE ARTERIAL GRAFT (WRVU 33.75) ENDOSCOPIC HARVEST VEIN(S) FOR CABG (WRVU 0.31) @CABG, TWO VENOUS GRAFTS & ARTERIAL GRAFT (WRVU 7.93) Surgeon(s) and Role: * Danny Jewell MD - Primary * Luiz Viramontes PA - Physician Director Banking * Librado Cueva PA - Physician Director Banking 24 HOUR EVENTS: Suspected anaphylaxis to albumin with marked hypotension, diffuse urticarial rash, received high dose epi, steroids, H1 jojo, tryptase sent during event Allergy consulted Persistently low CI despite volume resus post-event Repeat WILNER with notably reduced biventricular function Milrinone added with improved CI overnight Cr 1.1 -> 1.6 UOP 10-20 cc/hr Currently on epi/mil/norepi/vaso P8 FiO2 0.5 ASSESSMENT: 66 y.o.male h/o HTN, HL, DM, and CAD now 1 Day Post-Op s/p CABGx4. Thus far, ICU course notable for suspected anaphylatic reaction to albumin, inotrope and pressor requirement, KEKE, hypoxemic respiratory failure. MANAGEMENT AND DECISION MAKING: Prop/fent for sedation with goal RASS -1 CI initially low on arrival, suspicion was for hypovolemia, then had suspected anaphylactic event. CI was persistently low despite resolution of hypotension and rash. Repeat WILNER with mildly reduced LVEF from postop (and significant ventricular hypertrophy) but notably worse RV function. Improved with initiation of milrinone. Filling pressures still low, patient with significant edema, appears hemoconcentrated on CBC and significant respiratory variation on invasive monitoring. Consider some additional judicious fluid resus following CI. Had bronchospasm/elevated Ppeak associated with anaphylactic reaction, now improved. P/F mid 100s likely 2/2 fluid leak and atelectasis. Will consider increased PEEP once adequately resuscitated UOP decreasing over the evening, Cr bump likely 2/2 hypotension with anaphylaxis. As above will continue fluid resus following filling pressures. Hyperglycemia despite insulin gtt, epinephrine and steroids likely complicating situation, would continue to aggressively treat PHYSICAL EXAM: BMI: Body mass index is 32.64 kg/m??. Gen: Intubated, sedated N: RASS -3 CV: Regular, NSR on monitor P: Globally coarse GI: Soft, NTTP, ND Ext: Extremities cool, adequate cap refil, no c/c/e Other: TLD: R IJ CVC with PAC, Radial a line, TPW, Dailey, ETT Patient Vitals for the past 168 hrs: Weight 01/22/22 0400 109.2 kg (240 lb 11.9 oz) 01/21/22 1215 102.5 kg (225 lb 15.5 oz) Admit Weight: 102.5 kg Last value Range last 24 hrs Temperature Temp: 36.3 ??C (97.3 ??F) Temp: [35.2 ??C (95.4 ??F)-37 ??C (98.6 ??F)] Heart Rate Heart Rate: 90 Heart Rate: [64-92] Blood Pressure BP: 141/80 BP: (141)/(79-80) Respiratory Rate Resp: 15 Resp: [12-20] SpO2 SpO2: 96 % SpO2: [94 %-100 %] Art BP BP (Arterial Line): 117/61 BP (Arterial Line): (87-214)/(54-112) PAP Range PAP (mmHg): (26-33)/(13-22) Intake/Output Summary (Last 24 hours) at 01/22/2022 0518 Last data filed at 01/22/2022 0500 Gross per 24 hour Intake 9732.78 ml Output 1849 ml Net 7883.78 ml CBC: Recent Labs 01/22/22 0200 01/21/22 1440 01/21/22 1130 01/21/22 1050 01/17/22 1636 WBC 17.9* -- 4.6 -- 7.3 HGB 11.7* 11.9* 8.1* 8.0* 11.9* HCT 32.9* -- 23.1* 22.3* 33.8* PLATELET 235 -- 105* 148 194 Coags: Recent Labs 01/21/22 1130 01/17/22 1636 PT 16.0* 10.6 INR 1.4 0.9 PTT 31 -- Chem Panel: Recent Labs 01/22/22 0200 01/21/22 2200 01/21/22 1440 01/17/22 1636 NA 137 -- -- 139 K 4.9 5.1* 4.0 4.0 CL 106 -- -- 102 CO2 19* -- -- 24 BUN 20 -- -- 15 CREATININE 1.63* -- -- 1.17 GLUCOSE 293* -- -- 175 CALCIUM 8.2* -- -- 9.2 IS PATIENT CRITICALLY ILL ? Is there a high potential of sudden, clinically significant, or life threatening deterioration? Yes Is there a need for direct personal assessment and management to treat/prevent multiple vital organfailure/deterioration? Yes PATIENT IS CRITICALLY ILL WITH THESE DIAGNOSES BEING MANAGED BY CARDIAC CRITICAL CARE TEAM: Acidosis Metabolic Hypotension Arterial, Postoperative and With Shock Cardiogenic Other Anaphylaxis Renal Disease/Failure Acute Respiratory Failure Acute with hypoxia Postprocedural, Acute I personally performed 65 mins of aggregate critical care time exclusive of procedures and teaching.The billed time does not overlap with cardiac surgical attending assessement and includes spent during direct patient evaluation and reassessment, interpreting diagnostic tests, directing life and/or organ supporting interventions and documentation on the unit. Aron Dalring MD, PhD Kirill Padron RN - 01/21/2022 7:38 PM EST Patient had episode of hypotension after arrival to [facility]. Initially, the hypotension was able to be remedied with a quick and necessary increase in their norepinephrine administration. The patient then became hypotensive again shortly after the first episode had resolved. MD Oneal Darling and MD Alvaro Jewell responded to the bedside. As the hypotension was being treated it became obvious the patient had developed a diffuse rash overtheir body. Additional vasopressor infusions were administrated in addition to fluids, IVP benadryl,solu-medrol, and famotidine. Hypotension and rash resolved. Patient being closely monitored by team. Danny Jewell MD - 01/21/2022 6:09 PM EST Cardiac Surgery The patient had an episode of profound hypotension secondary to anaphylaxis likely as result of albumin earlier this afternoon. This was treated with a significant increase in his vasopressor requirements, bolus epinephrine, histamine blockade, and steroids. In addition to profound hypotension he had a raised erythematous rash over his body. This has improved over the last several hours but he remained with a low cardiac output. We repeated his transesophageal echo which shows a decrease in his right ventricular function as well as left ventricular function down to about 30 to 35%. It is a global hypokinesis. His postop ECG was normal. The differential at this point is stunning from the interval of hypotension given his severe LVH, he also had some intraventricular air but without changes on EKG this is less likely. And finally some myocardial depression due to the inflammatory response. We willsupport him with increased dose of epinephrine and milrinone. His filling pressures despite this lower cardiac index are quite reasonable with a PA pressure of 30 over 17-19 and a CVP of 7. His SVR hasimproved significantly. I suspect his myocardial function will improve over time. Danny Jewell MD [phone] Carmen Stout RCP - 01/21/2022 3:34 PM EST Respiratory Care Mechanical Ventilation Note Protocol: CTICU SBT: Yes SPO2 Goal: Saturation Goal: > 92% Vent Mode: SIMV VC +PS Circuit: HME Settings: Tidal Volume Set: (S) 610 Resp. Rate Set: (S) 15 PS Above PEEP (cm H2O): 12 Set PEEP (cm H2O): 5 Set FiO2: 44 % Inspiratory Time: 0.9 Sec(s) Measurements: Tidal Volume Measured Exp.: 569 Resp: 15 Peak Inspiratory Pressure: 21 Mean Airway Pressure (cm H2O): 8.8 Minute Ventilation Total Exhaled (L/min): 8.6 SpO2: 94 % ETCO2 (mmHg): 29 mmHg Airway: Size: 8.0 ETT Depth: 23 cm @ teeth/gums. Cuff Pressure: 28 mmHg Lung sounds: Clear and Diminished 24 hr Events: CABGx2 Assessment/Plan: Pt received intubated. Placed on SIMV on arrival: 610(8cc)/15/8/100%/PS10. Per protocol, FiO2 titrated to 40%. 1330: Pt hypotensive and desatting to 80s. Team bedside. Vent settings adjusted: 470/20/5/100%/PS10. 1450: Per ABG, FiO2 weaned to 40%. 1530: Settings adjusted 610/5/15/40%/PS10. 1636: Per PaO2 79, PEEP to 8, FiO2 to 50%. ALAN Morales RCP documented in this encounter H&P Notes Danny Jewell MD - 01/21/2022 6:51 AM EST There has been No change in the patients condition or operative plan since last visit. Danny Jewell MD [phone] Source Note - Danny Jewell MD - 01/21/2022 6:50 AM EST Patient Name: Vinod Ochoa Jr. Patient Age: 66 y.o. Birthdate: 1955 Admit date: 01/21/2022 Attending Physician: Danny Jewell MD Mr. Ochoa is a 66-year-old man with known atherosclerotic coronary disease having undergone priorPCI with intracoronary stenting of his right coronary. He presented with recurrent exertional dyspnea and chest pain underwent a cardiac cath which had an opportunity to review. This study is remarkable for significant triple-vessel coronary disease with mildly impaired LV function. Specifically he has total occlusion of the proximal right coronary which reconstitutes via collaterals at what would appear to be a graftable PDA. He also has significant disease of his first obtuse marginal branch, there is total occlusion of his mid circumflex system without graftable targets beyond that. He additionally has moderate to severe disease of his proximal to mid LAD. His past medical history and systems were reviewed in their entirety the pertinent issues are listed below. He has treated hypertension, heis a vaq-ybtakrt-ibxqtdvmv diabetic. He has had no known previous CVA or TIA. He has no known renal or hepatic insufficiency. He used tobacco briefly as a teenager. His family history is unremarkable. He is undergone prior bilateral knee operations he has spinal stenosis and a cholecystectomy in his past. 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 ?? On examination he is a blood pressure 145/80, his heart rates in the 70s at sinus by palpation. ?? His HEENT examination is unremarkable, there are no cervical bruits or masses. ?? There are no cardiac murmurs. ?? His chest is clear to auscultation. ?? His lower extremities are free of edema, there are no gross varicosities. ?? In summary, Mr. Ochoa has severe, symptomatic atherosclerotic coronary disease and the presence of diabetes and mild LV systolic dysfunction I think he is a appropriate candidate for open revascularization. The potential risks and anticipated benefits reviewed carefully with him. He does wish to proceed and has given written informed consent. Danny Jewell MD [phone] Danny Jewell MD - 01/21/2022 6:50 AM EST Patient Name: Vinod Ochoa Jr. Patient Age: 66 y.o. Birthdate: 1955 Admit date: 01/21/2022 Attending Physician: Danny Jewell MD Mr. Ochoa is a 66-year-old man with known atherosclerotic coronary disease having undergone priorPCI with intracoronary stenting of his right coronary. He presented with recurrent exertional dyspnea and chest pain underwent a cardiac cath which had an opportunity to review. This study is remarkable for significant triple-vessel coronary disease with mildly impaired LV function. Specifically he has total occlusion of the proximal right coronary which reconstitutes via collaterals at what would appear to be a graftable PDA. He also has significant disease of his first obtuse marginal branch, there is total occlusion of his mid circumflex system without graftable targets beyond that. He additionally has moderate to severe disease of his proximal to mid LAD. His past medical history and systems were reviewed in their entirety the pertinent issues are listed below. He has treated hypertension, heis a der-zdhyqsk-lygpbbvws diabetic. He has had no known previous CVA or TIA. He has no known renal or hepatic insufficiency. He used tobacco briefly as a teenager. His family history is unremarkable. He is undergone prior bilateral knee operations he has spinal stenosis and a cholecystectomy in his past. 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 ?? On examination he is a blood pressure 145/80, his heart rates in the 70s at sinus by palpation. ?? His HEENT examination is unremarkable, there are no cervical bruits or masses. ?? There are no cardiac murmurs. ?? His chest is clear to auscultation. ?? His lower extremities are free of edema, there are no gross varicosities. ?? In summary, Mr. Ochoa has severe, symptomatic atherosclerotic coronary disease and the presence of diabetes and mild LV systolic dysfunction I think he is a appropriate candidate for open revascularization. The potential risks and anticipated benefits reviewed carefully with him. He does wish to proceed and has given written informed consent. Danny Jewell MD [phone] documented in this encounter Nursing Notes Gabi Mendez RN - 01/21/2022 8:56 AM EST Pt informed on surgery start @ 0854 documented in this encounter Miscellaneous Notes Consult Note - Ayana Argueta RN - 01/31/2022 10:20 AM EDT [facility] Vinod Ochoa Jr. was seen today regarding participation in the outpatient Phase 2 Cardiac Rehabilitation at [facility]. The patient agrees to a referral to this program. The referral will be sent at discharge and the patient should be contacted by the Program within 1- 2 weeks from discharge. Consult Note - Bhakti Paredes MD - 01/31/2022 10:00 AM EDT OTOLARYNGOLOGY - HEAD & NECK SURGERY CONSULT NOTE Name: Vinod Ochoa Jr. Age/Sex: 67 y.o. male ENT Attending: Dr. Richardson Hospital Day: 11 11 Days Post-Op History of Present Illness We are seeing Vinod Ochoa Jr. today at the request of Dr. Jaye bell. providers found regarding dysphonia. Vinod Ochoa Jr. is a 67 y.o. male with CAD s/p CABG 01/21, with a short intubation course of 3 days, presenting with new onset dysphonia. He denies any dysphagia, odynophagia, neck pain, shortnessof breath or other new associated symptoms. This has never happened before. He has a history of social alcohol use but no other risk factors. He has been able to eat a regular diet but feels his voice quality is very off since his surgery itself. Review of Systems Pertinent positive findings discussed above. No other findings on review of constitutional, visual, cardiovascular, respiratory, gastrointestinal, genitourinary, musculoskeletal, dermatologic, neurological, psychiatric, endocrine, hematologic or immunologic systems. Problem List Patient Active Problem List Diagnosis Code ??? ASCVD (arteriosclerotic cardiovascular disease) I25.10 ??? Diabetes mellitus E11.9 ??? Hyperlipidemia E78.5 ??? Hyperpiesia I10 ??? Acquired deformity of foot M21.969 ??? Plantar fasciitis of left foot M72.2 ??? CAD (coronary artery disease) I25.10 Past Medical History Past Medical History: Diagnosis Date ??? ASCVD [...] mellitus ??? Hyperlipidemia ??? Hypertension Past Surgical History Past Surgical History: Procedure Laterality Date ??? CARDIAC CATHERIZATION stent placement ? ? PRG CATH [facility] CORONARY ART W/INJ FOR ANGIO W/R HEART CATH IMG S&I N/A 01/13/2022 CORONARY ANGIOGRAPHY; W RHC performed by Polo Beckham MD at [facility] CATH LABS ??? PRO CABG, ARTERIAL, SINGLE N/A 01/21/2022 @CABG, USING ARTERIAL GRAFT;SINGLE ARTERIAL GRAFT (WRVU 33.75) performed by Danny Jewell MD at [facility] OR ??? PRO CABG, ARTERY-VEIN, TWO N/A 01/21/2022 @CABG, TWO VENOUS GRAFTS & ARTERIAL GRAFT (WRVU 7.93) performed by Danny Jewell MD at [facility] OR ??? PRO ENDOSCOPY W/VIDEO-ASST VEIN HARVEST, CABG Right 01/21/2022 ENDOSCOPIC HARVEST VEIN(S) FOR CABG (WRVU 0.31) performed by Danny Jewell MD at [facility] OR Medications & Allergies No current facility-administered medications on file prior to encounter. Current Outpatient Medications on File Prior to Encounter Medication Sig Dispense Refill ??? glipiZIDE XL (Glucotrol XL) 2.5 mg [...] mouth once daily 90 tablet 3 ??? aspirin 81 mg Tablet, Delayed Release (E.C.) Take 162 mg by mouth daily. Increased by neurologist ??? metFORMIN (GLUCOPHAGE) 1,000 mg Tablet Take 1,000 mg by mouth 2 times daily (with meals). ??? nitroGLYcerin (Nitrostat) 0.[address], [address] 1 tablet under the tongue every 5 minutes x3 as needed for chest pain- 25 tablet 12 ??? amoxicillin (AMOXIL) 500 mg Capsule TAKE 4 CAPSULES BY MOUTH 1 HOUR BEFORE APPOINTMENT Albumin products and Lisinopril Social History [place] [address] Social History Socioeconomic History ??? Marital status: [...] on file Housing Stability: Not on file Family History Family History Problem Relation Age of Onset ??? No Known Problems Mother ??? Colorectal Cancer Father ??? Breast Cancer Sister Vitals Last value 24hr Range Temperature: 36.6 ??C (97.9 ??F) Temp: [36.6 ??C (97.9 ??F)] Heart Rate: 73 Heart Rate: [73] Blood Pressure: 137/73 BP: (137)/(73) Respiratory Rate: 19 Resp: [19] SpO2: 93 % SpO2: [93 %] Physical Exam General: NAD, non-ill appearing Face: Symmetric without dysmorphic features Eyes: EOMI, conjunctiva healthy Ears: Auricles symmetric, no lesions Nose: Patent nares, grossly normal appearance Oral Cavity/Pharynx: Mucosa is pink, oropharynx symmetric Neck: Soft, trachea midline Chest: Unlabored breathing, regular rate Neuro: Alert & oriented, moving extremities x 4 Procedures Procedure - Flexible Fiberoptic Laryngoscopy: Flexible endoscopy performed because of dysphonia. Topical mixture of decongestant and anesthetic was applied to the nasal cavity. The scope was passed through the nasal cavity, through the nasopharynx, and into the oropharynx. The patient tolerated the procedure well without complication. Findings: Nasal Cavity: Normal appearing mucosa, no obstructions or lesions noted. Nasopharynx: No lesions or masses noted. Oropharynx: Base of tongue/vallecula symmetric with normal appearing lingual tonsillar tissue. No masses, ulcerations or mucosal lesions noted. Larynx: Epiglottis is thin and non-edematous. Arytenoids are symmetric. Left VC demonstrates full and complete motion, right VC is minimally mobile and in a paramedian position. Hypopharynx: Piriform sinuses are clear bilaterally, without evidence of masses or lesions. No significant pooling of secretions was noted. No overt laryngeal penetration or aspiration Labs Recent Labs 01/31/22 0423 01/30/22 0429 K 3.7 3.2* Imaging CXR No masses or lesions seen *Personally reviewed and evaluated ASSESSMENT & RECOMMENDATIONS Vinod Ochoa Jr. is a 67 y.o. male with new onset dysphonia following short intubation course in association with his surgery, likely has intubation related VC injury vs other etiologies. We discussed for him the continue to work with [facility] in the interim and f/u with ENT. If his symptoms do not improve, we will undergo further investigation as to the etiology of his symptoms and have treatment options to improve his dysphonia. Recommendations: 1. Continue to work with [facility] 2. Plan for ENT f/u OP, appointment requested __ Bhakti Paredes MD, PGY-2 02/01/22 9:35 AM ENT Team Pager: [phone] Care Management - Gala Matamoros, RN - 01/31/2022 9:57 AM EDT OFFICE OF CARE MANAGEMENT PROGRESS NOTE LOS: Hospital Day 10 days Chart reviewed, care reviewed with primary team and at interdisciplinary rounds. Patient continues to meet inpatient level of care related to: Active Hospital Problems CAD (coronary artery disease) 66 y.o. male 10 Days Post-Op CABG x 3. Anaphylaxis to albumin likely; treated. Cardiogenic shock resolved. Post-op delirium-resolved ?? - Consult [facility] for eval and ENT for laryngoscopy - Avoid albumin, vecuronium, ceftriaxone - Follow-up with allergy in??4 to 6 weeks and have skin testing for these drugs - Tryptase came back at 12.5; IgA level normal. - Repeat tryptase pending - Cannot add lisinopril has anaphylactic hx - PT- cleared for home when ready ?? -Per provider note RNCM has communicated with Son, Alex. He indicated the family is still in discussion regarding necessary support coverage for this patient at discharge. RNCM reached out to Barbara. Her answered and stated Vinod was returning to his own address and Kg Henning (sister) was going to stay with him for a few days after discharge. The Family has concern there is a shortage of available supportwith family members needing to work and living out of the area. PROCESS ENVIRONMENTAL TECHNICIAN was added to VN order to assist family with community support resources. RNCM recommended private neonatal critical care nurse to support patient as hetransitioned to home routine, and there was positive response for this plan by Barbara's ?? Functional status prior to admission: Independent Home Environment: Others in the home: alone. Current Living Arrangements: home/apartment/condo. Accessibility Concerns: small 1 bedroom cabin ROBERT: 2 / living on one level. Current Functional Ability: Assistive Person DME used at home: walker - rolling, cane - straight DME Needed at Discharge: Pending PT / OT Recommendations Last Physical Therapy Recommendation: (home with family) with None Last Occupational Therapy Recommendation: with Patient is insured through: Primary Insurance: MEDICARE Payor: MEDICARE / Plan: MEDICARE PART A & B / Product Type: *No Product type* / Secondary Insurance: ANTH MEDICARE SUPPLEMENT Prescription Coverage: Yes [facility] [place], [place] - [address] [place] [phone] Plan for discharge is: Home w/ Services Home Health Services: Registered Nurse, Physical Therapy Agency Referrals & Follow-up Care: Contact information for follow-up [address] [address] For Nursing, PT and PROCESS ENVIRONMENTAL TECHNICIAN service Transportation: family or friend will provide Sister Barbara is planning on transporting at discharge Barriers to discharge: none Plan going forward: Care Management will continue to follow and assist with discharge planning and coordination of care as indicated. Anticipated Date of Discharge: 01/31/2022 Gala Matamoros acoustical engineer M- Care Management - Gala Matamoros RN - 01/30/2022 5:58 PM EDT OFFICE OF CARE MANAGEMENT PROGRESS NOTE LOS: Hospital Day 9 days Chart reviewed, care reviewed with primary team and at interdisciplinary rounds. Patient continues to meet inpatient level of care related to: Active Hospital Problems CAD (coronary artery disease) 66 y.o. male 9 Days Post-Op CABG x 3. Anaphylaxis to albumin likely; treated. Cardiogenic shock resolved. Post-op delirium-resolved ?? - Avoid albumin, vecuronium, ceftriaxone - Follow-up with allergy in??4 to 6 weeks and have skin testing for these drugs - Tryptase came back at 12.5; IgA level normal. Allergy following - Repeat tryptase today - Replete K+ - Discussed with patient and reviewed records, very low concern for alcohol withdrawal - social drinker 1-2 drinks with dinner intermittently has never withdrawn - dc hydralazine - Increase clonidine to 0.2 - dc sqh - Cannot add lisinopril has anaphylactic hx - PT: home vs rehab TBD -Per provider note RNCM has communicated with SonAlex. He indicated the family is still in discussion regarding necessary support coverage for this patient at discharge. RNCM will reach out to Barbara to confirm discharge address in am prior to discharge. Vinod may go to his sister's home for a few days. Her address is needed for VN order. ?? Functional status prior to admission: Independent Home Environment: Others in the home: alone. Current Living Arrangements: home/apartment/condo. Accessibility Concerns: small 1 bedroom cabin ROBERT: 2 / living on one level. Current Functional Ability: Assistive Person DME used at home: walker - rolling, cane - straight DME Needed at Discharge: Pending PT / OT Recommendations Last Physical Therapy Recommendation: (home with family) with None Last Occupational Therapy Recommendation: with Patient is insured through: Primary Insurance: MEDICARE Payor: MEDICARE / Plan: MEDICARE PART A & B / Product Type: *No Product type* / Secondary Insurance: [facility] MEDICARE SUPPLEMENT Prescription Coverage: Yes Preferred Pharmacy: [facility]-[address] [place] [address], [place] - [address] [place] [phone] Plan for discharge is: Home w/ Services Home Health Services: Registered Nurse, Physical Therapy Agency Referrals & Follow-up Care: Contact information for follow-up [address] [address] Transportation: family or friend will provide Sister Barbara is planning on transporting at discharge Barriers to discharge: none Plan going forward: Care Management will continue to follow and assist with discharge planning and coordination of care as indicated. Anticipated Date of Discharge: 01/31/2022 Gala Matamoros RN Case Manager M-Th Plan of Care - Pili Yan RN - 01/30/2022 2:13 PM EDT OUTCOME EVALUATION NOTE: OUTCOME SUMMARY: Patient A+Ox 4. Pt had an uneventful shift. No reports of CP or SOB. Denies pain. Mid sternal CDI. Ambulated independently. SR/ST on tele. See scanned docs. Call ballesteros within reach. PLAN MOVING FORWARD: Continue to actively monitor. Discharge planning as appropriate. INDIVIDUALIZED FALL PREVENTION INTERVENTIONS: Patient-specific fall risk factors per assessment: [current deficits]: tele wires, unfamiliar environment. Assistance [level of assistance required for transfers and ambulation]: Independent Supervision [direct monitoring required during toileting and ADLs]: Eyes on Surveillance [continuous indirect monitoring]: Tele monitoring, purposefully hourly rounding, call ballesteros within reach. Patient-specific fall prevention interventions for sensory deficits provided, if applicable: Lighting adjusted for specific tasks/activities, non-skid socks in place, bed in lowest locked position. CPG GOAL OUTCOME EVALUATION: Ongoing. Plan of Care - Yuko Schmidt RN - 01/29/2022 5:18 PM EDT OUTCOME EVALUATION NOTE: OUTCOME SUMMARY: Pt transferred to floor around 1500, A&O, no c/o pain, ambulated in carey, NSR on tele, voice remains hoarse PLAN MOVING FORWARD: CT pathway INDIVIDUALIZED FALL PREVENTION INTERVENTIONS: Patient-specific fall risk factors per assessment: [current deficits]: unfamiliar environment, generalized weakness Assistance [level of assistance required for transfers and ambulation]: st by Supervision [direct monitoring required during toileting and ADLs]: eyes on Surveillance [continuous indirect monitoring]: tele Patient-specific fall prevention interventions for sensory deficits provided, if applicable: call ballesteros in reach, nonskid socks when OOB, purposeful rounding performed CPG GOAL OUTCOME EVALUATION: Care Management - Gala Matamoros RN - 01/23/2022 4:45 PM EST OFFICE OF CARE MANAGEMENT PROGRESS NOTE LOS: Hospital Day 2 days Chart reviewed, care reviewed with primary team and at interdisciplinary rounds. Patient continues to meet inpatient level of care related to: Active Hospital Problems CAD (coronary artery disease) ICU Needs: ICU specific devices / therapies, mechanically ventilated, vasoactive medications 66 y.o. male 2 Days Post-Op CABG x 3. Anaphylaxis to albumin likely; treated. Cardiogenic shock improving. -per provider note 01/23/2022 Functional status prior to admission: Independent Home Environment: Others in the home: alone. Current Living Arrangements: home/apartment/condo. Accessibility Concerns: small 1 bedroom cabin ROBERT: 2 / living on one level. Current Functional Ability: Completely Dependent DME used at home: walker - rolling, cane - straight DME Needed at Discharge: Pending PT / OT Recommendations Last Physical Therapy Recommendation: with Last Occupational Therapy Recommendation: with Patient is insured through: Primary Insurance: MEDICARE Payor: MEDICARE / Plan: MEDICARE PART A & B / Product Type: *No Product type* / Secondary Insurance: [facility] MEDICARE SUPPLEMENT Prescription Coverage: Yes Preferred Pharmacy: [facility]-[address] [place] [address], [place] - [address] [place] [phone] Plan for discharge is: Pending Hospital Course and PT/OT Recommendations Transportation: family or friend will provide Barriers to discharge: Discharge planning Plan going forward: Care Management will continue to follow and assist with discharge planning and coordination of care as indicated. Anticipated Date of Discharge: 01/30/2022 Gala Matamoros RN Case Manager M- Initial Assessments - Gala Matamoros RN - 01/22/2022 2:56 PM EST Office of Care Management Initial Assessment Gala Matamoros RN reviewed record and discussed patient with Care Team.. Source of Information: Team, bedside nurse, medical record, and sister, Barbara Ochoa Introduced self/reviewed role; services accepted. Reason for Hospitalization: surgery Covid Vaccination Status: 1st, 2nd & booster (Moderna) Requested card copy- Barbara will look for it and send copy. Last COVID test: Lab Results Component Value Date [id number] Not Detected 01/22/2022 Past medical History: Past Medical History: Diagnosis Date ??? ASCVD [...] ??? Diabetes mellitus ??? Hyperlipidemia ??? Hypertension Hospitalizations Within the Past 30 Days: no previous admission in last 30 days Current Decision-Making Capacity: Self Advance Care Planning: Attempt Cardiopulmonary Resuscitation - Inpatient <no information> -Advanced Directive: Other Patient is in currently in divorce proceedings. He is now living alone inhis own residence. Surgeon has been communicating with Son, Alex Ochoa. Patient is intubated at the moment. If AD's have not been completed Alex Trevizo would be surrogate decision maker per [place] surrogate decision making law. (Only good for 180 days) Any patient receiving care at [facility] must abide by [place] law. The hierarchy for surrogate decision making is: (a) Patient???s spouse, or civil union partner or common law spouse unless there is a divorce proceeding, separation agreement, or restraining order limiting that person???s relationship with the patient. (b) Any adult son or daughter of the patient. (c) Either parent of the patient. (d) Any adult brother or sister of the patient. (e) Any adult grandchild of the patient. (f) Any grandparent of the patient. (g) Any adult aunt, uncle, niece, or nephew of the patient. (h) A close friend of the patient. (i) The agent with financial power of state's attorney or a conservator appointed in accordance with RSA 464-A. (j) The guardian of the patient???s estate. Current Coping/Education/Information Needs: Current Functional Ability: Completely Dependent Functional Status Prior to Admission: Independent Prior iADLS: Independent with all iADLs Home Environment: Others in the home: alone. Current Living Arrangements: home/apartment/condo. Accessibility Concerns:small 1 bedroom cabin ROBERT: 2 / living on one level. Current DME: walker - rolling, cane - straight Home Address confirmed as: Mailing address [address] [facility] [address] Unable to obtain home address for his new residence during this call. Social & Family Supports: All names listed below confirmed with patient as current and correct Extended Emergency Contact Information Primary Emergency Contact: Justin Ochoa [facility] Mobile Relation: Spouse Secondary Emergency Contact: Alex Ochoa Mobile Relation: Child Mother: Ying Ochoa [facility] Current Care Provided by: self Provides Primary Care For: child(best) Caregiver if needed: child(best), adult Quality of Family relationships: helpful, stressful Community Resources being provided currently: none Behavioral Health History: Substance Use/Abuse listed: Social History Tobacco Use Smoking Status Former Smoker ??? Types: Cigarettes Smokeless Tobacco Never Used Tobacco Comment quit at age 17 0 No problems reported 1-2 Low level 3-5 Moderate level 6-8 Substantial level 9- 10 Severe level 0 to 7 points: Low risk 8 to 15 points: Medium risk 16 to 19 points: High risk 20 to 40 points: Addiction likely Other Pertinent/Service Specific Information: * Health/Prescription Coverage: Primary Insurance: MEDICARE Payor: MEDICARE / Plan: MEDICARE PART A & B / Product Type: *No Product type* / Secondary Insurance: ANTH MEDICARE SUPPLEMENT Prescription Coverage: Yes Preferred Pharmacy: [address] [phone] [place] Status: Patient is a : No Primary Care Provider: Vladimir Muñoz DO [phone] Patient/Caregiver Goals of Treatment: family wants to support patient in returning to his home Potential Needs for Transition of Care: none Agency Referrals: ESTEFANIA CHAVES and patient/medical detail representative discussed agencies which serve their preferred geographic area. affiliations were identified and they were educated about their right to choose where referrals are placed. Patient requests referral to [facility] in [place], [place] and [phone] Expected date of discharge:01/28/2022 Referral routed to the Water Control Station Engineer for matching with agency/vendor and to provide any required information. Transportation: no concerns Transportation Anticipated: family or friend will provide Concerns to be Addressed: no discharge needs identified Assessment: Patient is admitted to Cardiology CT service for CAD Plan: Vinod Ochoa Jr. is a 66 y.o. male with CAD who is 1 Day Post-Op cabg x 3. PMH of CAD with PCI Hx, DM II, HLD. ?? 24h Events: - Anaphylaxis rxn likely to albumin. Treated with steroids, benadryl, levo/EPI, volume. Rash improved and dissipated. -Allergy consulted tryptase and IgA levels pending. Hold on Albumin, ceftriaxone and vecuronium. - Milrinone added for cardiac stunning with improvement in CI/CO. - Low UOP overnight. Given more volume, bicarb for acidosis. ? S: Intubated and sedated.- per provider note ?? A member of the Care Management team will continue to monitor progress, follow for continuity of care and assist with transition of care planning. Gala Matamoros RN Case Manager M-Th Consult Note - Chris Barreto MD - 01/21/2022 4:40 PM EST CC: anaphylaxis HPI: Vinod Ochoa Jr. is a 66 y.o. male with a PMH of DM, CAD s/p CABG on 01/21/22, HLD for whomAllergy was consulted for a question of anaphylaxis Danny Jewell MD. Reviewed detailed exposure history including all medications received in the OR, time of medications, vital signs trend, medications received after leaving the OR, and critical care notes. Prior to the OR blood pressure was 140s/80 OR MEDS: Induction was started at 0752. He received isoflurane, midazolam, fentanyl, propofol, phenylephrine,vecuronium at this time. Received ceftriaxone at 0808 Last dose of fentanyl was at 0911 Received heparin at 0911 Received vecuronium at 1028 Received insulin at 1015 which was continued until 1050 At 1055 patient had cardioplegic solution Last dose of midazolam was at 1118 Last dose of propofol was at 1137 Norepinephrine was started at 1045 and continued until 1141 Tranexamic acid was run from ~0800 until 1155. Isoflurane was continued throughout the procedure until ~1200. Received phenylephrine intermittently throughout procedure No apparent complications noted at the time of discharge from anesthesia care, which ended at 1208. Below are arterial line reads. Patient intubated at time of arrival to [facility]. 1212 blood pressure 122/73 P80 SpO2 100% 1215 BP 98/64 P80 SpO2 100% 1215 got propofol 1230 BP 97/59 P64 SpO2 100% 1245 BP 99/60 P67 SpO2 100% 1300 BP 89/61 P80 SpO2 100% 1304 got human albumin 1323 fentanyl was given 1330 Respiratory Therapist Care note documents: pt hypotensive and desatting to 80s 1345 epinephrine, vasopressin 1421 got human albumin 1423 patient received calcium chloride IV 1443 got human albumin Spoke with [facility] team directly including 5 team members who witnessed the event. Around 130 the patient received human serum albumin. Blood pressures had previously been in the 80s the patient dropped down to the 50s suddenly and was treated with Levophed and saline. 5 minutes later the patient became hypotensive again to the 50s. Not realizing the albumin may have been a trigger he was given more HSA. He then experienced a full body rash and continued to have hypotension requiring epinephrine, levophed, vasopressin to control hypotension. They felt symptoms were severe. I looked at the pictures of the rash which show diffuse erythematous rash with raised plaques consistent with urticaria. Treatment team notes that this occurred from essentially the neck down to the legs and it responded rapidly to epinephrine. While patient was having a reaction he was also noted to be bronchospastic with suddenincrease in peak pressures on the ventilator. His eyes were puffy as well. ROS unable to be obtained due to intubated status of patient. Patient Active Problem List Diagnosis Code ??? ASCVD (arteriosclerotic cardiovascular disease) I25.10 ??? Diabetes mellitus E11.9 ??? Hyperlipidemia E78.5 ??? Hyperpiesia I10 ??? Acquired deformity of foot M21.969 ??? Plantar fasciitis of left foot M72.2 ??? CAD (coronary artery disease) I25.10 Past Medical History: Diagnosis Date ??? ASCVD [...] CATHERIZATION stent placement ? ? PRG CATH [facility] CORONARY ART W/INJ FOR ANGIO W/R HEART CATH IM S&I N/A 01/13/2022 CORONARY ANGIOGRAPHY; W RHC performed by Polo Beckham MD at [facility] CATH LABS ??? atorvastatin (Lipitor) tablet 80 mg ??? glucose (GLUTOSE) 40% oral geL OR dextrose 10% infusion OR glucagon (Glucagen) (1 mg/mL)injection solution 1 mg ??? insulin lispro (HumaLOG;Admelog) (100 unit/mL) subcutaneous injection vial 3-6 Units ??? sodium chloride 0.9% infusion ??? sodium chloride 0.9% infusion ??? meperidine (pf) (Demerol) (100 mg/mL) injection vial 25 mg ??? ondansetron (pf) (Zofran) (2 mg/mL) injection 4 mg ??? chlorhexidine (Peridex) 0.12 % oral solution 15 mL ??? pantoprazole EC (Protonix) tablet 40 mg OR pantoprazole (Protonix) injection 40 mg ??? [START ON 01/22/2022] senna-docusate (Pericolace) 8.6-50 mg per tablet 2 tablet ??? [START ON 01/23/2022] magnesium hydroxide (Milk of Magnesia) (240 mg/mL) oral liquid 10 mL ??? [START ON 01/24/2022] bisacodyL (Dulcolax) suppository 10 mg ??? propofoL (Diprivan) (10 mg/mL) infusion ??? fentaNYL (PF) (50 mcg/mL) infusion syringe 50 mL AND fentaNYL shift total and Settings verification ??? fentaNYL (PF) (50 mcg/mL) injection 25 mcg OR fentaNYL (50 mcg/mL) bolus from infusion 25 mcg ??? fentaNYL (PF) (50 mcg/mL) injection 25 mcg OR fentaNYL (50 mcg/mL) bolus from infusion 25 mcg ??? acetaminophen (Ofirmev) (1000 mg/100 mL) infusion 1,000 mg FOLLOWED BY [START ON 01/22/2022] acetaminophen (Tylenol) tablet 1,000 mg ??? insulin regular (Myxredlin) (1 unit/mL) in sodium chloride 0.9% 100 mL infusion ??? insulin regular (Myxredlin) (1 unit/mL) bolus from infusion 0-16 Units ??? potassium chloride 20 mEq in sterile water 100 mL infusion OR potassium chloride 20 mEq in sterile water 100 mL infusion OR potassium chloride 20 mEq in sterile water 100 mL infusion ??? NORepinephrine (Levophed) (16 mcg/mL) in dextrose 5% 250 mL infusion ??? nitroGLYcerin (200 mcg/mL) in dextrose 5% 250 mL infusion ??? aspirin chewable tablet 81 mg OR aspirin suppository 300 mg ??? oxyCODONE (Roxicodone) tablet 5-10 mg ??? vecuronium (Norcuron) injection 10 mg ??? lactated ringers infusion ??? EPINEPHrine (Adrenalin) (8 mcg/mL) in dextrose 5% 250 mL infusion ??? milrinone (Primacor) (0.2 mg/mL) in dextrose 5% 100 mL infusion Allergies Allergen Reactions ??? Albumin Products Anaphylaxis ??? Lisinopril Anaphylaxis and Other (See Comments) Ear buzzing, nausea, itching, tongue swelling Family History Problem Relation Age of Onset ??? No Known Problems Mother ??? Colorectal Cancer Father ??? Breast Cancer Sister Social History Socioeconomic History ??? Marital status: [...] on file Housing Stability: Not on file PHYSICAL EXAM: BP 141/80 (BP Location (NBP): Left arm) Pulse 80 Temp 36 ??C (96.8 ??F) (PA Catheter) Resp 15 Ht 182.9 cm (6' 0.01) Wt 102.5 kg (225 lb 15.5 oz) SpO2 97% BMI 30.64 kg/m?? BP 141/80 (BP Location (NBP): Left arm) Pulse 80 Temp 36 ??C (96.8 ??F) (PA Catheter) Resp 15 Ht 182.9 cm (6' 0.01) Wt 102.5 kg (225 lb 15.5 oz) SpO2 97% BMI 30.64 kg/m?? Gen: intubated, sedated Head: normocephalic, atraumatic EYES: eyelids edematous, no discharge noted ENT: OP mucosa well hydrated, mild edema of face and lips and tongue CVS: RRR, no m/r/g LUNGS: no wheezing or rales, mechanical BS ABD: non-distended SKIN: no rashes, normal color, no mottling at time of exam EXTREMITIES: warm and well-perfused, mildly edematous NEURO: intubated sedated PSYCH: intubated sedated ASSESSMENT AND PLAN: 66 y.o. male with anaphylaxis post-op. The primary team has sent to tryptase which I agree with, butclinically this does sound like anaphylaxis. Action items highlighted in bold below. As far as triggers, the team notes the temporal relationship with human serum albumin, a blood product. In studies of human serum albumin allergy testing, this has typically failed to confirm this as an IgE-mediated trigger but there can be other etiologies for reactions this. Incipients such caprylate or contaminants such as immunoglobulins can trigger reactions. Infusion reactions can also be nonspecific due to non-IgE mediated processes such as complement activation. I agree with continuing to avoid human serum albumin for now. Though the immediate temporal relationship was with human serum albumin, we must also still considerpossible exposures during the OR course. Anaphylactic reactions perioperatively should be consideredfor drugs that the patient received within 4 hours of the reaction, sometimes more in rare cases. That said, fentanyl, midazolam, and propofol are uncommon triggers of anaphylaxis in the OR and can be continued. The most common causes are antibiotics and neuromuscular blockades. For that reason I recommend he continue to avoid ceftriaxone and vecuronium going forward in addition to human serum albumin. It can take up to 6 weeks for a new allergy to show up as a positive skin test. I recommend avoidingthese things until he can follow-up with allergy in 4 to 6 weeks and have skin testing for these drugs. If beta lactam antibiotics are needed before then, patient may receive one that does not share a side chain via our test dose protocol. For Ceftriaxone, low risk choices are typically 1st and 2nd generation cephalosporins and penicillins. The dot phrase cephalosporin allergy can help you identify kuldip atment choices for test dose. If another neuromuscular drug blocking drug is needed, benzyl isoquinolones would be least likely tocross-react with vecuronium. This includes atracurium and cisatracurium. Succinylcholine has a high potential cross-reactivity with vecuronium and should be avoided, as do other aminosteroid neuromuscular blocking drugs. Please follow up tryptase - if elevated, please repeat this prior to discharge to confirm it has normalized. A persistently elevated tryptase can indicate an underlying systemic mastocytosis which requires evaluation in hematology. Finally, in addition to following up the tryptase, I recommend sending an IgA level due to the association of IgA deficiency with anaphylaxis to blood products. If IgA deficiency is identified, precautions going forward with future blood products can reduce the risk of reacting. 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 2 hours were spent on consult in detailed record review, consultation with primary team, examinationof patient, and documentation. Chris Barreto MD [phone] Brief Op Note - Danny Jewell MD - 01/21/2022 11:59 AM EST Brief Operative Note Patient Name: Vinod Ochoa Jr. : [id number] MR#: [id number] Case Date: 01/21/2022 Surgeon: Surgeon(s) and Role: * Danny Jewell MD - Primary * Luiz Viramontes PA - Physician Director Banking * Librado Cueva PA - Physician Director Banking Preoperative diagnosis: CAD Postoperative diagnosis: CAD, diffusely diseased, very calcified coronaries, inferior and lateral wall scar. Post bypass EF 50% Procedure(s) (LRB): @CABG, USING ARTERIAL GRAFT;SINGLE ARTERIAL GRAFT (WRVU 33.75) (N/A) ENDOSCOPIC HARVEST VEIN(S) FOR CABG (WRVU 0.31) (Right) @CABG, TWO VENOUS GRAFTS & ARTERIAL GRAFT (WRVU 7.93) (N/A) CABG x 3 GALICIA->LAD SVG->PDA SVG->OM1 Anesthesia: General /Christina Findings: CAD, diffusely diseased, very calcified coronaries, inferior and lateral wall scar. Post bypass EF 50% Estimated Blood Loss: Cell Saver Specimens removed during surgery: None Fluids: Intraprocedure Crystalloid Total Intake Sodium Chloride 0.9% 1000.00 mL lactated ringers infusion 500.00 mL Cell Saver Volume 830 mL Total Intake 2330 mL Output Urine Output 200 mL Total Output 200 mL Net Net Volume 2130 mL PRBCs: none (See Anesthesia Record/Report for Other Blood Products) Urine Output: 200 mL Drains: Mediastinal and pleural Disposition: [facility] Condition: Stable Attestation: Case Date: 01/21/2022 I was present and I participated during the entire procedure (does not need to include opening and closing). DANNY JEWELL MD 01/21/2022 Op Note - Danny Jewell MD - 01/21/2022 8:26 AM EST [facility] Operative Note Patient Name: Vinod Ochoa Jr. : [id number] MR#: [id number] Case Date: 01/21/2022 Surgeon: Surgeon(s) and Role: * Danny Jewell MD - Primary * Luiz Viramontes PA - Physician Director Banking * Librado Cueva PA - Physician Director Banking ?? Preoperative diagnosis: CAD ?? Postoperative diagnosis: CAD, diffusely diseased, very calcified coronaries, inferior and lateral wall scar. Post bypass EF 50% ?? Procedure(s) (LRB): @CABG, USING ARTERIAL GRAFT;SINGLE ARTERIAL GRAFT (WRVU 33.75) (N/A) ENDOSCOPIC HARVEST VEIN(S) FOR CABG (WRVU 0.31) (Right) @CABG, TWO VENOUS GRAFTS & ARTERIAL GRAFT (WRVU 7.93) (N/A) ? CABG x 3 GALICIA->LAD SVG->PDA SVG->OM1 ?? Anesthesia: General /Christina ?? Findings: CAD, diffusely diseased, very calcified coronaries, inferior and lateral wall scar. Post bypass EF 50% ? Estimated Blood Loss: Cell Saver ? Specimens removed during surgery: None Fluids: Intraprocedure Crystalloid Total Intake Sodium Chloride 0.9% 1000.00 mL lactated ringers infusion 500.00 mL Cell Saver Volume 830 mL Total Intake 2330 mL Output Urine Output 200 mL Total Output 200 mL Net Net Volume 2130 mL ?? PRBCs: none (See Anesthesia Record/Report for Other Blood Products) Urine Output: 200 mL ?? Drains: Mediastinal and pleural ?? Disposition: [facility] Procedure Description: The patient was brought to the operating room and placed on the operating table in supine position. Following the induction of a general anesthetic by endotracheal technique and the placement of appropriate monitoring lines he was prepped and draped using a sterile prep. Simultaneous incisions were made in his midsternal region as well as in the lower extremity. The incision in the lower extremity was utilized to obtain pieces of the greater saphenous vein using a combination of open and endoscopic techniques. The vein was harvested prepared for anastomosis and set aside. The lower extremity woundswere then closed using a layered absorbable suture closure. The wound in the midsternum was carried d own through the sternum which was divided with a saw. The left hemisternum was then elevated with a mammary artery retractor and the mammary artery was dissected from the endothoracic fascia using Bovie electrocautery taking significant branches with hemoclips. The distal cut end of the GALICIA had excell ent flow, it was wrapped in a verapamil soaked gauze and set aside. The mammary artery retractor wasthen replaced with a standard sternal retractor. The pericardium was opened. He was heparinized and cannulated for bypass. He was brought on bypass. The aorta was crossclamped. The heart was arrested with cold hyperkalemic blood cardioplegia. Additional doses of cardioplegia were given throughout the cross-clamp interval as indicated by any significant rise in myocardial septal temperature, or the return of any cardiac electrical activity. The vein graft to the PDA coronary was performed first usinga 4 mm arteriotomy in a running 7-0 Prolene suture. The proximal anastomosis was then completed witha 4 mm aortic punch and running 6-0 Prolene suture. Using similar anastomotic techniques the obtuse marginal was grafted. While the patient was being rewarmed on bypass the end of the GALICIA was anastomosed to the side of the mid LAD using a running 8-0 Prolene suture and a 4 mm arteriotomy. The atraumat ic clip on the GALICIA pedicle was removed at the completion of this anastomosis and the heart promptlyresuscitated indicating good flow through the GALICIA. The cross-clamp was then removed. He was electrically defibrillated and fully rewarmed on bypass. Epicardial and right atrial pacing wires were positioned. Once rewarmed on bypass he was from bypass without significant difficulty. The aboveecho findings are noted.. Protamine sulfate was administered. He was decannulated. Mediastinal and pleural drainage catheters were positioned. Hemostasis was secured. The sternum was reapproximated with surgical wire. Soft tissues anterior to the sternum were reapproximated using a layered absorbable suture closure. Sterile dressings were applied. He was taken to the cardiothoracic intensive care unit in hemodynamically stable condition. Attestation: Case Date: 01/21/2022 I was present and I participated during the entire procedure (does not need to include opening and closing). DANNY JEWELL MD 01/31/2022 documented in this encounter Plan of Treatment Upcoming Encounters Date Type Specialty Care Team Description 03/25/2022 Anesthesia Event Surgery Catrachita Baez MD [facility] ANESTHESIOLOGY [place], [place] [address] (Wo rk) 12/15/2022 Office Visit Cardiology Damián Hart MD [facility] [place], [place] [address] (Wo rk) 03/25/2050 Hospital Encounter Surgery Citlalli Richardson MD Vocal cord paralysis [facility] OTOLARYNGOLOGY [place], [place] [address] (Wo rk) Scheduled Referrals Name Type Priority Associated Diagnoses Order S chedule Referral to Outpatient Referral Routine S/P CABG x 4 Ordered: Cardiac Rehab 01/31/2022 documented as of this encounter Procedures Procedure Name Priority Date/Time Associated Comments Diagnosis POCT GLUCOSE Routine 01/31/2022 11:38 Results for this AM EDT procedure are i n the results section. POCT GLUCOSE Routine 01/31/2022 7:37 Results for this AM EDT procedure are i n the results section. HC POTASSIUM Routine 01/31/2022 4:23 Results for this AM EDT procedure are i n the results section. POCT GLUCOSE Routine 01/30/2022 8:33 Results for this PM EDT procedure are i n the results section. POCT GLUCOSE Routine 01/30/2022 4:24 Results for this PM EDT procedure are i n the results section. POCT GLUCOSE Routine 01/30/2022 11:49 Results for this AM EDT procedure are i n the results section. HC VENIPUNCTURE Routine 01/30/2022 9:36 Results f or this AM EDT procedure are i n the results section. POCT GLUCOSE Routine 01/30/2022 7:30 Results for this AM EDT procedure are i n the results section. HC VENIPUNCTURE Routine 01/30/2022 4:29 Results f or this AM EDT procedure are i n the results section. POCT GLUCOSE Routine 01/29/2022 7:11 Results for this PM EDT procedure are i n the results section. POCT GLUCOSE Routine 01/29/2022 4:04 Results for this PM EDT procedure are i n the results section. POCT GLUCOSE Routine 01/29/2022 11:40 Results for this AM EDT procedure are i n the results section. POCT GLUCOSE Routine 01/29/2022 7:32 Results for this AM EDT procedure are i n the results section. HEMOGRAM Routine 01/29/2022 2:15 Results for this AM EDT procedure are i n the results section. DIFFERENTIAL, AUTOMATED Routine 01/29/2022 2:15 R esults for this AM EDT procedure are i n the results section. HC CBC,PLT & AUTO DIFF Routine 01/29/2022 2:15 AM EDT HC POTASSIUM Routine 01/29/2022 2:15 Results for this AM EDT procedure are i n the results section. POCT GLUCOSE Routine 01/28/2022 9:23 Results for this PM EDT procedure are i n the results section. POCT GLUCOSE Routine 01/28/2022 4:51 Results for this PM EDT procedure are i n the results section. POCT GLUCOSE Routine 01/28/2022 12:15 Results for this PM EDT procedure are i n the results section. POCT GLUCOSE Routine 01/28/2022 8:13 Results for this AM EDT procedure are i n the results section. HC POTASSIUM Routine 01/28/2022 2:17 Results for this AM EDT procedure are i n the results section. POCT GLUCOSE Routine 01/27/2022 11:57 Results for this PM EDT procedure are i n the results section. POCT GLUCOSE Routine 01/27/2022 5:19 Results for this PM EDT procedure are i n the results section. HC POTASSIUM Routine 01/27/2022 5:05 Results for this PM EDT procedure are i n the results section. POCT GLUCOSE Routine 01/27/2022 12:29 Results for this PM EDT procedure are i n the results section. XR CHEST PA AND LATERAL Routine 01/27/2022 12:14 Results for this PM EDT procedure are i n the results section. HC POTASSIUM Routine 01/27/2022 9:50 Results for this AM EDT procedure are i n the results section. POCT GLUCOSE Routine 01/27/2022 8:28 Results for this AM EDT procedure are i n the results section. BASIC METABOLIC PANEL Routine 01/27/2022 2:29 Res ults for this (NON-FASTING) AM EDT procedure are in the results section. POCT GLUCOSE Routine 01/26/2022 9:54 Results for this PM EDT procedure are i n the results section. HC POTASSIUM Routine 01/26/2022 3:20 Results for this PM EDT procedure are i n the results section. POCT GLUCOSE Routine 01/26/2022 3:14 Results for this PM EDT procedure are i n the results section. POCT GLUCOSE Routine 01/26/2022 11:18 Results for this AM EDT procedure are i n the results section. HC POTASSIUM Routine 01/26/2022 9:30 Results for this AM EDT procedure are i n the results section. POCT GLUCOSE Routine 01/26/2022 8:51 Results for this AM EDT procedure are i n the results section. POCT GLUCOSE Routine 01/26/2022 6:25 Results for this AM EDT procedure are i n the results section. POCT GLUCOSE Routine 01/26/2022 4:11 Results for this AM EDT procedure are i n the results section. POCT GLUCOSE Routine 01/26/2022 3:08 Results for this AM EDT procedure are i n the results section. BASIC METABOLIC PANEL Routine 01/26/2022 3:00 Res ults for this (NON-FASTING) AM EDT procedure are in the results section. POCT GLUCOSE Routine 01/25/2022 11:56 Results for this PM EST procedure are i n the results section. POCT GLUCOSE Routine 01/25/2022 9:45 Results for this PM EST procedure are i n the results section. POCT GLUCOSE Routine 01/25/2022 8:10 Results for this PM EST procedure are i n the results section. POCT GLUCOSE Routine 01/25/2022 5:59 Results for this PM EST procedure are i n the results section. POCT GLUCOSE Routine 01/25/2022 4:15 Results for this PM EST procedure are i n the results section. HC POTASSIUM Routine 01/25/2022 4:15 Results for this PM EST procedure are i n the results section. HC POTASSIUM Routine 01/25/2022 12:30 Results for this PM EST procedure are i n the results section. POCT GLUCOSE Routine 01/25/2022 12:27 Results for this PM EST procedure are i n the results section. POCT GLUCOSE Routine 01/25/2022 10:16 Results for this AM EST procedure are i n the results section. POCT GLUCOSE Routine 01/25/2022 8:53 Results for this AM EST procedure are i n the results section. HC POTASSIUM Routine 01/25/2022 8:50 Results for this AM EST procedure are i n the results section. POCT GLUCOSE Routine 01/25/2022 8:10 Results for this AM EST procedure are i n the results section. POCT GLUCOSE Routine 01/25/2022 5:55 Results for this AM EST procedure are i n the results section. POCT GLUCOSE Routine 01/25/2022 4:04 Results for this AM EST procedure are i n the results section. POCT GLUCOSE Routine 01/25/2022 2:05 Results for this AM EST procedure are i n the results section. BASIC METABOLIC PANEL Routine 01/25/2022 2:00 Res ults for this (NON-FASTING) AM EST procedure are in the results section. POCT GLUCOSE Routine 01/24/2022 11:52 Results for this PM EST procedure are i n the results section. POCT GLUCOSE Routine 01/24/2022 10:00 Results for this PM EST procedure are i n the results section. POCT GLUCOSE Routine 01/24/2022 7:43 Results for this PM EST procedure are i n the results section. POCT GLUCOSE Routine 01/24/2022 6:53 Results for this PM EST procedure are i n the results section. HC POTASSIUM Routine 01/24/2022 4:45 Results for this PM EST procedure are i n the results section. POCT GLUCOSE Routine 01/24/2022 4:38 Results for this PM EST procedure are i n the results section. POCT GLUCOSE Routine 01/24/2022 4:02 Results for this PM EST procedure are i n the results section. POCT GLUCOSE Routine 01/24/2022 2:10 Results for this PM EST procedure are i n the results section. POCT GLUCOSE Routine 01/24/2022 12:20 Results for this PM EST procedure are i n the results section. EXTUBATE Routine 01/24/2022 10:17 AM EST BLOOD GAS 2 ARTERIAL Routine 01/24/2022 9:43 Resu lts for this AM EST procedure are i n the results section. HC POTASSIUM Routine 01/24/2022 9:43 Results for this AM EST procedure are i n the results section. POCT GLUCOSE Routine 01/24/2022 8:26 Results for this AM EST procedure are i n the results section. COVID-19 PCR Routine 01/24/2022 6:23 Results for this AM EST procedure are i n the results section. POCT GLUCOSE Routine 01/24/2022 6:07 Results for this AM EST procedure are i n the results section. BLOOD GAS ARTERIAL Routine 01/24/2022 6:06 Result s for this ([facility]) AM EST procedure are i n the results section. POCT GLUCOSE Routine 01/24/2022 3:55 Results for this AM EST procedure are i n the results section. BASIC METABOLIC PANEL Routine 01/24/2022 2:30 Res ults for this (NON-FASTING) AM EST procedure are in the results section. POCT GLUCOSE Routine 01/24/2022 2:02 Results for this AM EST procedure are i n the results section. POCT GLUCOSE Routine 01/24/2022 12:59 Results for this AM EST procedure are i n the results section. POCT GLUCOSE Routine 01/23/2022 11:56 Results for this PM EST procedure are i n the results section. POCT GLUCOSE Routine 01/23/2022 10:01 Results for this PM EST procedure are i n the results section. POCT GLUCOSE Routine 01/23/2022 8:49 Results for this PM EST procedure are i n the results section. BLOOD GAS 2 ARTERIAL Routine 01/23/2022 5:33 Resu lts for this PM EST procedure are i n the results section. HC POTASSIUM Routine 01/23/2022 5:33 Results for this PM EST procedure are i n the results section. POCT GLUCOSE Routine 01/23/2022 3:57 Results for this PM EST procedure are i n the results section. POCT GLUCOSE Routine 01/23/2022 2:20 Results for this PM EST procedure are i n the results section. POCT GLUCOSE Routine 01/23/2022 1:27 Results for this PM EST procedure are i n the results section. POCT GLUCOSE Routine 01/23/2022 12:50 Results for this PM EST procedure are i n the results section. POCT GLUCOSE Routine 01/23/2022 10:37 Results for this AM EST procedure are i n the results section. POCT GLUCOSE Routine 01/23/2022 7:55 Results for this AM EST procedure are i n the results section. HEMOGRAM Routine 01/23/2022 6:10 Results for this AM EST procedure are i n the results section. DIFFERENTIAL, AUTOMATED Routine 01/23/2022 6:10 R esults for this AM EST procedure are i n the results section. HC CBC,PLT & AUTO DIFF Routine 01/23/2022 6:10 AM EST BLOOD GAS 2 ARTERIAL Routine 01/23/2022 6:08 Resu lts for this AM EST procedure are i n the results section. POCT GLUCOSE Routine 01/23/2022 5:13 Results for this AM EST procedure are i n the results section. POCT GLUCOSE Routine 01/23/2022 3:25 Results for this AM EST procedure are i n the results section. BASIC METABOLIC PANEL Routine 01/23/2022 2:00 Res ults for this (NON-FASTING) AM EST procedure are in the results section. POCT GLUCOSE Routine 01/23/2022 1:58 Results for this AM EST procedure are i n the results section. POCT GLUCOSE Routine 01/23/2022 1:08 Results for this AM EST procedure are i n the results section. BLOOD GAS 2 ARTERIAL Routine 01/22/2022 11:58 Res ults for this PM EST procedure are i n the results section. POCT GLUCOSE Routine 01/22/2022 11:41 Results for this PM EST procedure are i n the results section. POCT GLUCOSE Routine 01/22/2022 10:48 Results for this PM EST procedure are i n the results section. POCT GLUCOSE Routine 01/22/2022 9:44 Results for this PM EST procedure are i n the results section. POCT GLUCOSE Routine 01/22/2022 8:52 Results for this PM EST procedure are i n the results section. POCT GLUCOSE Routine 01/22/2022 8:01 Results for this PM EST procedure are i n the results section. POCT GLUCOSE Routine 01/22/2022 6:30 Results for this PM EST procedure are i n the results section. BLOOD GAS 2 ARTERIAL Routine 01/22/2022 5:56 Resu lts for this PM EST procedure are i n the results section. POCT GLUCOSE Routine 01/22/2022 4:54 Results for this PM EST procedure are i n the results section. POCT GLUCOSE Routine 01/22/2022 3:48 Results for this PM EST procedure are i n the results section. HC POTASSIUM Routine 01/22/2022 3:15 Results for this PM EST procedure are i n the results section. POCT GLUCOSE Routine 01/22/2022 3:14 Results for this PM EST procedure are i n the results section. POCT GLUCOSE Routine 01/22/2022 2:01 Results for this PM EST procedure are i n the results section. BLOOD GAS 2 ARTERIAL Routine 01/22/2022 1:10 Resu lts for this PM EST procedure are i n the results section. COOX2 Routine 01/22/2022 12:34 Results for this PM EST procedure are i n the results section. POCT GLUCOSE Routine 01/22/2022 11:02 Results for this AM EST procedure are i n the results section. POCT GLUCOSE Routine 01/22/2022 9:22 Results for this AM EST procedure are i n the results section. POCT GLUCOSE Routine 01/22/2022 7:53 Results for this AM EST procedure are i n the results section. BLOOD GAS 2 ARTERIAL Routine 01/22/2022 6:35 Resu lts for this AM EST procedure are i n the results section. HC IGA, SERUM Routine 01/22/2022 6:35 Results for this AM EST procedure are i n the results section. POCT GLUCOSE Routine 01/22/2022 5:48 Results for this AM EST procedure are i n the results section. POCT GLUCOSE Routine 01/22/2022 4:41 Results for this AM EST procedure are i n the results section. RAPID COVID-19 PCR Routine 01/22/2022 2:45 Result s for this ([facility]) AM EST procedure are in the results section. COOX2 Routine 01/22/2022 2:16 Results for this AM EST procedure are i n the results section. BLOOD GAS 2 ARTERIAL Routine 01/22/2022 2:12 Resu lts for this AM EST procedure are i n the results section. HEMOGRAM Routine 01/22/2022 2:00 Results for this AM EST procedure are i n the results section. DIFFERENTIAL, AUTOMATED Routine 01/22/2022 2:00 R esults for this AM EST procedure are i n the results section. HC CBC,PLT & AUTO DIFF Routine 01/22/2022 2:00 AM EST HC TROPONIN T Routine 01/22/2022 2:00 Results for this AM EST procedure are i n the results section. BASIC METABOLIC PANEL Routine 01/22/2022 2:00 Res ults for this (NON-FASTING) AM EST procedure are in the results section. POCT GLUCOSE Routine 01/22/2022 1:20 Results for this AM EST procedure are i n the results section. POCT GLUCOSE Routine 01/21/2022 11:54 Results for this PM EST procedure are i n the results section. COOX2 Routine 01/21/2022 10:38 Results for this PM EST procedure are i n the results section. POCT GLUCOSE Routine 01/21/2022 10:01 Results for this PM EST procedure are i n the results section. HC POTASSIUM Routine 01/21/2022 10:00 Results for this PM EST procedure are i n the results section. BLOOD GAS 2 ARTERIAL Routine 01/21/2022 9:59 Resu lts for this PM EST procedure are i n the results section. POCT GLUCOSE Routine 01/21/2022 9:04 Results for this PM EST procedure are i n the results section. POCT GLUCOSE Routine 01/21/2022 8:09 Results for this PM EST procedure are i n the results section. POCT GLUCOSE Routine 01/21/2022 7:06 Results for this PM EST procedure are i n the results section. POCT GLUCOSE Routine 01/21/2022 6:00 Results for this PM EST procedure are i n the results section. POCT GLUCOSE Routine 01/21/2022 5:06 Results for this PM EST procedure are i n the results section. BLOOD GAS 2 ARTERIAL Routine 01/21/2022 4:29 Resu lts for this PM EST procedure are i n the results section. COOX2 Routine 01/21/2022 4:07 Results for this PM EST procedure are i n the results section. POCT GLUCOSE Routine 01/21/2022 4:02 Results for this PM EST procedure are i n the results section. HC HEMOGLOBIN, BLOOD Routine 01/21/2022 2:40 Resu lts for this PM EST procedure are i n the results section. HC POTASSIUM Routine 01/21/2022 2:40 Results for this PM EST procedure are i n the results section. BLOOD GAS 2 ARTERIAL Routine 01/21/2022 2:25 Resu lts for this PM EST procedure are i n the results section. HC TRYPTASE STAT 01/21/2022 1:47 Results for this PM EST procedure are i n the results section. BLOOD GAS 2 ARTERIAL Routine 01/21/2022 1:35 Resu lts for this PM EST procedure are i n the results section. XR CHEST ONE VIEW STAT 01/21/2022 12:54 Result s for this PM EST procedure are i n the results section. BLOOD GAS 2 ARTERIAL Routine 01/21/2022 12:47 Res ults for this PM EST procedure are i n the results section. COOX2 Routine 01/21/2022 12:42 Results for this PM EST procedure are i n the results section. EKG 12-LEAD STAT 01/21/2022 12:37 S/P CABG x 4 Results for this PM EST procedure are i n the results section. BLOOD GAS 2 ARTERIAL Routine 01/21/2022 11:37 Res ults for this AM EST procedure are i n the results section. HC HEMOGRAM STAT 01/21/2022 11:30 Results for this AM EST procedure are i n the results section. HC PARTIAL STAT 01/21/2022 11:30 Results for this THROMBOPLASTIN TIME AM EST procedur e are in the results section. HC PROTHROMBIN TIME STAT 01/21/2022 11:30 Resu lts for this AM EST procedure are i n the results section. HC HEMOGLOBIN, BLOOD Routine 01/21/2022 10:50 Res ults for this AM EST procedure are i n the results section. HC FIBRINOGEN TITER Routine 01/21/2022 10:50 Resu lts for this AM EST procedure are i n the results section. HC PLATELET COUNT Routine 01/21/2022 10:50 Result s for this AM EST procedure are i n the results section. BLOOD GAS 2 ARTERIAL Routine 01/21/2022 10:45 Res ults for this AM EST procedure are i n the results section. BLOOD GAS 2 ARTERIAL Routine 01/21/2022 10:19 Res ults for this AM EST procedure are i n the results section. BLOOD GAS 2 VENOUS Routine 01/21/2022 9:52 Result s for this AM EST procedure are i n the results section. BLOOD GAS 2 ARTERIAL Routine 01/21/2022 9:49 Resu lts for this AM EST procedure are i n the results section. BLOOD GAS 2 ARTERIAL Routine 01/21/2022 8:20 Resu lts for this AM EST procedure are i n the results section. @CABG, TWO VENOUS Yes 01/21/2022 7:40 CAD GRAFTS & ARTERIAL GRAFT AM EST (WRVU 7.93) ENDOSCOPIC HARVEST Yes 01/21/2022 7:40 CAD VEIN(S) FOR CABG (WRVU AM EST 0.31) @CABG, USING ARTERIAL Yes 01/21/2022 7:40 CAD GRAFT;SINGLE ARTERIAL AM EST GRAFT (WRVU 33.75) RAPID COVID-19 PCR Routine 01/21/2022 7:35 Result s for this ([facility]/APD/NLH) AM EST procedure are in the results section. TRANSESOPHAGEAL Routine 01/21/2022 7:18 Coronary artery Result s for this ECHOCARDIOGRAM IN THE AM EST disease involving p rocedure are in [place] coronary the results artery of [place] section. heart, unspecified whether angina present PREPARE RBC STAT 01/21/2022 6:35 Results for this AM EST procedure are i n the results section. POCT GLUCOSE Routine 01/21/2022 6:26 Results for this AM EST procedure are i n the results section. documented in this encounter Results POCT Glucose (01/31/2022 11:38 AM EDT) P athologist Signature POC Glucose 149 65 - 199 [facility] mg/dL [facility] Comment: Supplemental ranges: <140 mg/dL before meals <180 mg/dL all other times of the day Specimen Anatomical Collection Method Collection Time Receive d Time (Source) Location / / Volume Laterality Blood 01/31/2022 11:38 01/31/2022 AM EDT 11:38 AM EDT Danny Jewell MD POINT OF CARE TEST ORDERABLE S Performing Organization Address City/State/[place] [address] POCT Glucose (01/31/2022 7:37 AM EDT) athologist Signature POC Glucose 141 65 - 199 [place] mg/dL [facility] Comment: Supplemental ranges: <140 mg/dL before meals <180 mg/dL all other times of the day Specimen Anatomical Collection Method Collection Time Receive d Time (Source) Location / / Volume Laterality Blood 01/31/2022 7:37 AM 2 7:37 EDT AM EDT Danny Jewell MD POINT OF CARE TEST ORDERABLE S Performing Organization Address City/[facility]/[place] [address] Potassium (01/31/2022 4:23 AM EDT) athologist Signature Potassium 3.7 3.5 - 5.[address] [facility] [facility]/L [facility] Comment: Please note: ??Patients with WBC >100,00 0 may have falsely elevated Potassium levels. ??For accurate Potassium quantif ication in these patients send serum separator tube (gold top) for subsequent determinations. ??Contact the Clinical Chemistry Laboratory if there are any qu estions. Specimen Anatomical Collection Method Collection Time Receive d Time (Source) Location / / Volume Laterality Blood 01/31/2022 4:23 AM 2 4:46 EDT AM EDT Resulting Agency Comment Spec In Lab Danny Jewell MD CHEMISTRY ORDERABLES Performing Organization Address City/[facility]/[place] [address] POCT Glucose (01/30/2022 8:33 PM EDT) athologist Signature POC Glucose 132 65 - 199 [place] mg/dL [facility] Comment: Supplemental ranges: <140 mg/dL before meals <180 mg/dL all other times of the day Specimen Anatomical Collection Method Collection Time Receive d Time (Source) Location / / Volume Laterality Blood 01/30/2022 8:33 PM 2 8:33 EDT PM EDT Danny Jewell MD POINT OF CARE TEST ORDERABLE S Performing Organization Address City/State/[place] [address] POCT Glucose (01/30/2022 4:24 PM EDT) athologist Signature POC Glucose 154 65 - [address] [facility] Comment: Supplemental ranges: <140 mg/dL before meals <180 mg/dL all other times of the day Specimen Anatomical Collection Method Collection Time Receive d Time (Source) Location / / Volume Laterality Blood 01/30/2022 4:24 PM 2 4:24 EDT PM EDT Danny Jewell MD POINT OF CARE TEST ORDERABLE S Performing Organization Address City/State/[place] [address] [facility] [address] POCT Glucose (01/30/2022 11:49 AM EDT) athologist Signature POC Glucose 158 65 - [address] [facility] Comment: Supplemental ranges: <140 mg/dL before meals <180 mg/dL all other times of the day Specimen Anatomical Collection Method Collection Time Receive d Time (Source) Location / / Volume Laterality Blood 01/30/2022 11:49 01/30/2022 AM EDT 11:49 AM EDT Danny Jewell MD POINT OF CARE TEST ORDERABLE S Performing Organization Address City/State/[place] [address] Tryptase (01/30/2022 9:36 AM EDT) athologist Signature Tryptase 4.3 <=8.4 ng/mL [facility] Comment: Total tryptase concentrations that are p ersistently greater than 20 ng/mL may be consistent with systemic mastocytosis . Specimen Anatomical Collection Method Collection Time Receive d Time (Source) Location / / Volume Laterality Blood 01/30/2022 9:36 AM 2 7:33 EDT AM EDT Resulting Agency Comment Spec In Lab Danny Jewell MD CHEMISTRY ORDERABLES Performing Organization Address City/State/[place] [address] POCT Glucose (01/30/2022 7:30 AM EDT) athologist Signature POC Glucose 123 65 - [address] [facility] Comment: Supplemental ranges: <140 mg/dL before meals <180 mg/dL all other times of the day Specimen Anatomical Collection Method Collection Time Receive d Time (Source) Location / / Volume Laterality Blood 01/30/2022 7:30 AM 2 7:30 EDT AM EDT Danny Jewell MD POINT OF CARE TEST ORDERABLE S Performing Organization Address City/State/[place] [address] (ABNORMAL) Potassium (01/30/2022 4:29 AM EDT) athologist Signature Potassium 3.2 (L) 3.5 - 5.0 [facility] mmol/L [facility] Comment: Please note: ??Patients with WBC >100,00 0 may have falsely elevated Potassium levels. ??For accurate Potassium quantif ication in these patients send serum separator tube (gold top) for subsequent determinations. ??Contact the Clinical Chemistry Laboratory if there are any qu estions. Specimen Anatomical Collection Method Collection Time Receive d Time (Source) Location / / Volume Laterality Blood 01/30/2022 4:29 AM 2 4:47 EDT AM EDT Resulting Agency Comment Spec In Lab Danny Jewell MD CHEMISTRY ORDERABLES Performing Organization Address City/State/[place] [address] POCT Glucose (01/29/2022 7:11 PM EDT) athologist Signature POC Glucose 137 65 - [address] [facility] Comment: Supplemental ranges: <140 mg/dL before meals <180 mg/dL all other times of the day Specimen Anatomical Collection Method Collection Time Receive d Time (Source) Location / / Volume Laterality Blood 01/29/2022 7:11 PM 2 7:11 EDT PM EDT Danny Jewell MD POINT OF CARE TEST ORDERABLE S Performing Organization Address City/State/[place] [address] POCT Glucose (01/29/2022 4:04 PM EDT) athologist Signature POC Glucose 146 65 - 199 [place] mg/dL [facility] Comment: Supplemental ranges: <140 mg/dL before meals <180 mg/dL all other times of the day Specimen Anatomical Collection Method Collection Time Receive d Time (Source) Location / / Volume Laterality Blood 01/29/2022 4:04 PM 4:04 EDT PM EDT Danny Jewell MD POINT OF CARE TEST ORDERABLE S Performing Organization Address City/State/ZIP Code Phon e Number [place] [id number] POCT Glucose (01/29/2022 11:40 AM EDT) athologist Signature POC Glucose 167 65 - 199 [place] mg/dL [facility] Comment: Supplemental ranges: <140 mg/dL before meals <180 mg/dL all other times of the day Specimen Anatomical Collection Method Collection Time Receive d Time (Source) Location / / Volume Laterality Blood 01/29/2022 11:40 01/29/2022 AM EDT 11:40 AM EDT Danny Jewell MD POINT OF CARE TEST ORDERABLE S Performing Organization Address City/State/ZIP Code Phon e Number [place] [id number] POCT Glucose (01/29/2022 7:32 AM EDT) athologist Signature POC Glucose 141 65 - 199 [place] mg/dL [facility] Comment: Supplemental ranges: <140 mg/dL before meals <180 mg/dL all other times of the day Specimen Anatomical Collection Method Collection Time Receive d Time (Source) Location / / Volume Laterality Blood 01/29/2022 7:32 AM 7:32 EDT AM EDT Danny Jewell MD POINT OF CARE TEST ORDERABLE S Performing Organization Address City/State/[place] [address] Differential, Automated (01/29/2022 2:15 AM EDT) P athologist Signature Neutrophils % 70.5 % [facility] Neutr Abs (ANC) 5.95 1.70 - [facility] 6.10 [facility] x10(3)/[facility] LABORATORY Lymphocytes % 13.3 % [facility] Lymphocytes Abs 1.1 0.9 - 3.2 [facility] x10(3)/[facility] LABORATORY Monocytes % 11.0 % [facility] Monocyte Abs 0.9 0.3 - 0.9 [facility] x10(3)/[facility] LABORATORY Eosinophils % 4.1 % [facility] Eosinophils Abs 0.4 0.0 - 0.4 [facility] x10(3)/[facility] LABORATORY Basophils % 0.6 % [facility] Basophils Abs 0.0 0.0 - 0.1 [facility] x10(3)/[facility] LABORATORY Immature Gran % 0.50 % [facility] Comment: Immature granulocytes(IG's)percentage an d absolute count will include metamyelocytes, myelocytes, and promyelo cytes. Blood smears from CBCs yielding IG's will be scanned manually for concor dance. If this scan disagrees with the automated IG or if promyelocytes are not ed, a manual differential will be performed. Nikole Gran Abs 0.04 0.00 - 0.04 x10(3)/[facility] LABORATORY Specimen Anatomical Collection Method Collection Time Receive d Time (Source) Location / / Volume Laterality Blood 01/29/2022 2:15 AM 2 2:26 EDT AM EDT Resulting Agency Comment Spec In Lab Damián TOUSSAINT HEMATOLOGY ORDERABLES Performing Organization Address City/[facility]/[place] [address] (ABNORMAL) Hemogram (01/29/2022 2:15 AM EDT) Analysis Performed At Patho logist Time Signature WBC 8.4 4.0 - 9.5 [facility] x10(3)/[facility] LABORATORY RBC 2.77 (L) 4.58 [facility] 5.54 [facility] x10(6)/[facility] LABORATORY Hemoglobin 8.7 (L) 13.7 - [facility] 16.5 g/dL [facility] Hematocrit 25.6 (L) 40.5 - [facility] 48.5 % [facility] MCV 92.4 82.9 - [facility] 93.1 [facility] LABORATORY MCH 31.4 27.5 - [place] 32.1 pg [facility] MCHC 34.0 32.0 - [facility] g/dL [facility] Platelets 282 145 - 357 [facility] x10(3)/[facility] LABORATORY RDWSD 45.9 (H) 36.0 - [facility] 45.0 [facility] LABORATORY RDWCV 13.8 11.4 - [facility] 13.8 % [facility] MPV 9.3 7.6 - 12.9 [facility] LABORATORY nRBC % Auto 0.0 % [facility] nRBC Abs Auto 0.000 0.000 - [facility] 0.000 [facility] x10(3)/[facility] LABORATORY Specimen Anatomical Collection Method Collection Time Receive d Time (Source) Location / / Volume Laterality Blood 01/29/2022 2:15 AM 2 2:26 EDT AM EDT Resulting Agency Comment Spec In Lab Damián T[facility]SSA[place] HEMATOLOGY ORDERABLES Performing Organization Address City/State/[place] [address] Potassium (01/29/2022 2:15 AM EDT) P athologist Signature Potassium 3.8 3.5 - 5.0 [facility] mmol/L [facility] Comment: Please note: ??Patients with WBC >100,00 0 may have falsely elevated Potassium levels. ??For accurate Potassium quantif ication in these patients send serum separator tube (gold top) for subsequent determinations. ??Contact the Clinical Chemistry Laboratory if there are any qu estions. Specimen Anatomical Collection Method Collection Time Receive d Time (Source) Location / / Volume Laterality Blood 01/29/2022 2:15 AM 2 2:26 EDT AM EDT Resulting Agency Comment Spec In Lab Danny Jewell MD CHEMISTRY ORDERABLES Performing Organization Address City/State/ZIP Code Phon e Number [address] POCT Glucose (01/28/2022 9:23 PM EDT) athologist Signature POC Glucose 146 65 - 199 [place] mg/dL [facility] Comment: Supplemental ranges: <140 mg/dL before meals <180 mg/dL all other times of the day Specimen Anatomical Collection Method Collection Time Receive d Time (Source) Location / / Volume Laterality Blood 01/28/2022 9:23 PM 2 9:23 EDT PM EDT Danny Jewell MD POINT OF CARE TEST ORDERABLE S Performing Organization Address City/[facility]/[place] [address] POCT Glucose (01/28/2022 4:51 PM EDT) athologist Signature POC Glucose 177 65 - 199 [place] mg/dL [facility] Comment: Supplemental ranges: <140 mg/dL before meals <180 mg/dL all other times of the day Specimen Anatomical Collection Method Collection Time Receive d Time (Source) Location / / Volume Laterality Blood 01/28/2022 4:51 PM 2 4:51 EDT PM EDT Danny Jewell MD POINT OF CARE TEST ORDERABLE S Performing Organization Address City/[facility]/ZIP Code Phon e Number [address] POCT Glucose (01/28/2022 12:15 PM EDT) athologist Signature POC Glucose 150 65 - 199 [place] mg/dL [facility] Comment: Supplemental ranges: <140 mg/dL before meals <180 mg/dL all other times of the day Specimen Anatomical Collection Method Collection Time Receive d Time (Source) Location / / Volume Laterality Blood 01/28/2022 12:15 01/28/2022 PM EDT 12:15 PM EDT Danny Jewell MD POINT OF CARE TEST ORDERABLE S Performing Organization Address City/[facility]/[place] [address] POCT Glucose (01/28/2022 8:13 AM EDT) athologist Signature POC Glucose 135 65 - [address] [facility] [address] mg/dL [facility] Comment: Supplemental ranges: <140 mg/dL before meals <180 mg/dL all other times of the day Specimen Anatomical Collection Method Collection Time Receive d Time (Source) Location / / Volume Laterality Blood 01/28/2022 8:13 AM 2 8:13 EDT AM EDT Danny Jewell MD POINT OF CARE TEST ORDERABLE S Performing Organization Address City/[facility]/[place] [address] Potassium (01/28/2022 2:17 AM EDT) athologist Signature Potassium 3.5 3.5 - 5.[address] [facility] [facility] mmol/L [facility] Comment: Please note: ??Patients with WBC >100,00 0 may have falsely elevated Potassium levels. ??For accurate Potassium quantif ication in these patients send serum separator tube (gold top) for subsequent determinations. ??Contact the Clinical Chemistry Laboratory if there are any qu estions. Specimen Anatomical Collection Method Collection Time Receive d Time (Source) Location / / Volume Laterality Blood 01/28/2022 2:17 AM 2 2:26 EDT AM EDT Resulting Agency Comment Spec In Lab Danny Jewell MD CHEMISTRY ORDERABLES Performing Organization Address City/[facility]/[place] [address] POCT Glucose (01/27/2022 11:57 PM EDT) athologist Signature POC Glucose 141 65 - 199 [place] mg/dL [facility] Comment: Supplemental ranges: <140 mg/dL before meals <180 mg/dL all other times of the day Specimen Anatomical Collection Method Collection Time Receive d Time (Source) Location / / Volume Laterality Blood 01/27/2022 11:57 01/27/2022 PM EDT 11:57 PM EDT Danny Jewell MD POINT OF CARE TEST ORDERABLE S Performing Organization Address City/[facility]/[place] [address] POCT Glucose (01/27/2022 5:19 PM EDT) athologist Signature POC Glucose 147 65 - 199 [facility] mg/dL [facility] Comment: Supplemental ranges: <140 mg/dL before meals <180 mg/dL all other times of the day Specimen Anatomical Collection Method Collection Time Receive d Time (Source) Location / / Volume Laterality Blood 01/27/2022 5:19 PM 2 5:19 EDT PM EDT Danny Jewell MD POINT OF CARE TEST ORDERABLE S Performing Organization Address City/[facility]/[place] [address] Potassium (01/27/2022 5:05 PM EDT) athologist Signature Potassium 3.9 3.5 - 5.[facility] Comment: Please note: ??Patients with WBC >100,00 0 may have falsely elevated Potassium levels. ??For accurate Potassium quantif ication in these patients send serum separator tube (gold top) for subsequent determinations. ??Contact the Clinical Chemistry Laboratory if there are any qu estions. Specimen Anatomical Collection Method Collection Time Receive d Time (Source) Location / / Volume Laterality Blood 01/27/2022 5:05 PM 2 5:21 EDT PM EDT Resulting Agency Comment Spec In Lab Danny Jewell MD CHEMISTRY ORDERABLES Performing Organization Address City/[facility]/Z[place] [address] [facility] [address] POCT Glucose (01/27/2022 12:29 PM EDT) P athologist Signature POC Glucose 166 65 - 199 [place] mg/dL [facility] Comment: Supplemental ranges: <140 mg/dL before meals <180 mg/dL all other times of the day Specimen Anatomical Collection Method Collection Time Receive d Time (Source) Location / / Volume Laterality Blood 01/27/2022 12:29 01/27/2022 PM EDT 12:29 PM EDT Danny Jewell MD POINT OF CARE TEST ORDERABLE S Performing Organization Address City/State/[place] [address] XR Chest PA & Lateral (Generic) (01/27/2022 12:14 PM EDT) Anatomical Region Laterality Modality Chest N/A Digital Radiography Specimen (Source) Anatomical Location Collection Method / Collectio n Time Received Time / Laterality Volume Impressions 01/27/2022 12:45 PM EDT Left basilar opacity which likely reflects a combination of small volume pleural fluid and left lower lobe collapse. Thank you for letting us participate in the care of this patient. ??If you are a health care provider and have any questi ons regarding this report, please contact the number below. ??For patients who have questions please contact the health acute care physical therapist that requested your imaging first. ? Narrative 01/27/2022 12:45 PM EDT EXAMINATION: XR CHEST PA AND LATERAL (GENERIC) CLINICAL HISTORY: s/p cabg, eval effusio ns TECHNIQUE: PA and lateral views of the chest COMPARISON: Chest x-ray [id number] FINDINGS: Left basilar opacity obscure slipped hem idiaphragm. Blunting of the right lateral costophrenic angle. Visualized p ortions the cardiac silhouette are within normal limits. The bronson and centr al pulmonary vascular markings within normal limits. No pneumothorax. Removal of previously seen PA catheter and left-sided chest tube as well as a media stinal drain. Procedure Note Catrachito Cisneros MD - 01/27/2022Formattin g of this note might be different from the original. EXAMINATION: XR CHEST PA AND LATERAL (PikumIC) CLINICAL HISTORY: s/p cabg, eval effusio ns TECHNIQUE: PA and lateral views of the chest COMPARISON: Chest x-ray [id number] FINDINGS: Left basilar opacity obscure slipped hem idiaphragm. Blunting of the right lateral costophrenic angle. Visualized p ortions the cardiac silhouette are within normal limits. The bronson and centr al pulmonary vascular markings within normal limits. No pneumothorax. Removal of previously seen PA catheter and left-sided chest tube as well as a media stinal drain. IMPRESSION Left basilar opacity which likely reflec ts a combination of small volume pleural fluid and left lower lobe collapse. Thank you for letting us participate in the care of this patient. If you are a health care provider and have any questi ons regarding this report, please contact the number below. For patients w ho have questions please contact the health acute care physical therapist that requested your imaging first. Danny Jewell MD IMG DX ORDERABLES Potassium (01/27/2022 9:50 AM EDT) athologist Signature Potassium 3.5 3.5 - 5.0 [facility] mmol/L [facility] Comment: Please note: ??Patients with WBC >100,00 0 may have falsely elevated Potassium levels. ??For accurate Potassium quantif ication in these patients send serum separator tube (gold top) for subsequent determinations. ??Contact the Clinical Chemistry Laboratory if there are any qu estions. Specimen Anatomical Collection Method Collection Time Receive d Time (Source) Location / / Volume Laterality Blood 01/27/2022 9:50 AM 2 9:59 EDT AM EDT Resulting Agency Comment Spec In Lab Danny Jewell MD CHEMISTRY ORDERABLES Performing Organization Address City/[facility]/[place] [address] (ABNORMAL) POCT Glucose (01/27/2022 8:28 AM EDT) athologist Signature POC Glucose 204 (H) 65 - [address] [facility] Comment: Supplemental ranges: <140 mg/dL before meals <180 mg/dL all other times of the day Specimen Anatomical Collection Method Collection Time Receive d Time (Source) Location / / Volume Laterality Blood 01/27/2022 8:28 AM 2 8:28 EDT AM EDT Danny Jewell MD POINT OF CARE TEST ORDERABLE S Performing Organization Address City/[facility]/[place] [address] (ABNORMAL) Basic Metabolic Panel (non-fasting) (01/27/2022 2:29 AM EDT) athologist Signature Glucose Lvl 144 65 - [address] [facility]dL [facility] Comment: Diabetes: >=200 mg/dL plus symp toms BUN 9 (L) 10 - 20 mg/dL [facility] Creatinine 0.81 0.80 - 1.50 mg/dL [facility] Sodium 138 135 - 145 mmol/L [facility] Potassium 3.6 3.5 - 5.0 mmol/L [facility] Comment: Please note: ??Patients with WBC >100,00 0 may have falsely elevated Potassium levels. ??For accurate Potassium quantif ication in these patients send serum separator tube (gold top) for subsequent determinations. ??Contact the Clinical Chemistry Laboratory if there are any qu estions. Chloride 103 98 - 107 mmol/L [facility] CO2 23 22 - 31 mmol/L [facility] Anion Gap 12 5 - 15 mmol/L [facility] Calcium 8.1 (L) 8.5 - 10.5 mg/dL [facility] Estimated GFR 92 >=60 mL/min/1.73 m?? [facility] Comment: This patient? s estimated glomerular filtration rate (eGFR) is between 92 mL/min/1.73 m2 (patients with less muscl e mass per kg body weight) and 107 mL/min/1.73 m2 (patients with more muscl e mass per kg body weight) as determined by the CKD-EPI equation. Asse ssment of eGFR is not appropriate when creatinine concentrations are rapidly ch anging. For clinical decisions where creatinine clearance will affect therapy , a 24-hour urine creatinine clearance may be advised. Assignment of CKD stage 1 - 5 for patien ts with an eGFR near the transition point between stages may be based on cli nical assessment of muscle mass and symptoms in addition to eGFR. Specimen Anatomical Collection Method Collection Time Receive d Time (Source) Location / / Volume Laterality Blood 01/27/2022 2:29 AM 2 2:37 EDT AM EDT Resulting Agency Comment Spec In Lab Danny Jewell MD CHEMISTRY ORDERABLES Performing Organization Address City/State/ZIP Code Phon e Number [address] POCT Glucose (01/26/2022 9:54 PM EDT) P athologist Signature POC Glucose 156 65 - 199 [facility] mg/dL [facility] Comment: Supplemental ranges: <140 mg/dL before meals <180 mg/dL all other times of the day Specimen Anatomical Collection Method Collection Time Receive d Time (Source) Location / / Volume Laterality Blood 01/26/2022 9:54 PM 2 9:54 EDT PM EDT Danny Jewell MD POINT OF CARE TEST ORDERABLE S Performing Organization Address City/State/[place] [address] Potassium (01/26/2022 3:20 PM EDT) athologist Signature Potassium 3.8 3.5 - 5.0 [facility] mmol/L [facility] Comment: Please note: ??Patients with WBC >100,00 0 may have falsely elevated Potassium levels. ??For accurate Potassium quantif ication in these patients send serum separator tube (gold top) for subsequent determinations. ??Contact the Clinical Chemistry Laboratory if there are any qu estions. Specimen Anatomical Collection Method Collection Time Receive d Time (Source) Location / / Volume Laterality Blood 01/26/2022 3:20 PM 2 3:35 EDT PM EDT Resulting Agency Comment Spec In Lab Danny Jewell MD CHEMISTRY ORDERABLES Performing Organization Address City/[facility]/ZIP Code Phon e Number [address] POCT Glucose (01/26/2022 3:14 PM EDT) athologist Signature POC Glucose 114 65 - 199 [facility] mg/dL [facility] Comment: Supplemental ranges: <140 mg/dL before meals <180 mg/dL all other times of the day Specimen Anatomical Collection Method Collection Time Receive d Time (Source) Location / / Volume Laterality Blood 01/26/2022 3:14 PM 2 3:14 EDT PM EDT Danny Jewell MD POINT OF CARE TEST ORDERABLE S Performing Organization Address City/[facility]/[place] [address] POCT Glucose (01/26/2022 11:18 AM EDT) athologist Signature POC Glucose 148 65 - 199 [facility] mg/dL [facility] Comment: Supplemental ranges: <140 mg/dL before meals <180 mg/dL all other times of the day Specimen Anatomical Collection Method Collection Time Receive d Time (Source) Location / / Volume Laterality Blood 01/26/2022 11:18 01/26/2022 AM EDT 11:18 AM EDT Danny Jewell MD POINT OF CARE TEST ORDERABLE S Performing Organization Address City/State/[place] [address] Potassium (01/26/2022 9:30 AM EDT) athologist Signature Potassium 3.5 3.5 - 5.0 [facility] mmol/L [facility] Comment: Please note: ??Patients with WBC >100,00 0 may have falsely elevated Potassium levels. ??For accurate Potassium quantif ication in these patients send serum separator tube (gold top) for subsequent determinations. ??Contact the Clinical Chemistry Laboratory if there are any qu estions. Specimen Anatomical Collection Method Collection Time Receive d Time (Source) Location / / Volume Laterality Blood 01/26/2022 9:30 AM 2 9:52 EDT AM EDT Resulting Agency Comment Spec In Lab Danny Jewell MD CHEMISTRY ORDERABLES Performing Organization Address [facility] [place] [address] POCT Glucose (01/26/2022 8:51 AM EDT) athologist Signature POC Glucose 155 65 - [facility] Comment: Supplemental ranges: <140 mg/dL before meals <180 mg/dL all other times of the day Specimen Anatomical Collection Method Collection Time Receive d Time (Source) Location / / Volume Laterality Blood 01/26/2022 8:51 AM 2 8:51 EDT AM EDT Danny Jewell MD POINT OF CARE TEST ORDERABLE S Performing Organization Address City/[facility]/[place] [address] POCT Glucose (01/26/2022 6:25 AM EDT) athologist Signature POC Glucose 155 65 - [address] [facility]dL [facility] Comment: Supplemental ranges: <140 mg/dL before meals <180 mg/dL all other times of the day Specimen Anatomical Collection Method Collection Time Receive d Time (Source) Location / / Volume Laterality Blood 01/26/2022 6:25 AM 2 6:25 EDT AM EDT Danny Jewell MD POINT OF CARE TEST ORDERABLE S Performing Organization Address City/State/[place] [address] POCT Glucose (01/26/2022 4:11 AM EDT) athologist Signature POC Glucose 149 65 - 199 [facility] mg/dL [facility] Comment: Supplemental ranges: <140 mg/dL before meals <180 mg/dL all other times of the day Specimen Anatomical Collection Method Collection Time Receive d Time (Source) Location / / Volume Laterality Blood 01/26/2022 4:11 AM 2 4:11 EDT AM EDT Danny Jewell MD POINT OF CARE TEST ORDERABLE S Performing Organization Address City/State/[place] [address] POCT Glucose (01/26/2022 3:08 AM EDT) athologist Signature POC Glucose 159 65 - [facility]dL [facility] Comment: Supplemental ranges: <140 mg/dL before meals <180 mg/dL all other times of the day Specimen Anatomical Collection Method Collection Time Receive d Time (Source) Location / / Volume Laterality Blood 01/26/2022 3:08 AM 2 3:08 EDT AM EDT Danny Jewell MD POINT OF CARE TEST ORDERABLE S Performing Organization Address City/State/[place] [address] (ABNORMAL) Basic Metabolic Panel (non-fasting) (01/26/2022 3:00 AM EDT) athologist Signature Glucose Lvl 140 65 - [address] [facility]/dL [facility] Comment: Diabetes: >=200 mg/dL plus symp toms BUN 10 10 - 20 mg/dL [facility] Creatinine 0.86 0.80 - 1.50 mg/dL [facility] Sodium 137 135 - 145 mmol/L [facility] Potassium 3.4 (L) 3.5 - 5.0 mmol/L [facility] Comment: Please note: ??Patients with WBC >100,00 0 may have falsely elevated Potassium levels. ??For accurate Potassium quantif ication in these patients send serum separator tube (gold top) for subsequent determinations. ??Contact the Clinical Chemistry Laboratory if there are any qu estions. Chloride 103 98 - 107 mmol/L [facility] CO2 23 22 - 31 mmol/L [facility] Anion Gap 11 5 - 15 mmol/L [facility] Calcium 7.9 (L) 8.5 - 10.5 mg/dL [facility] Estimated GFR 90 >=60 mL/min/1.73 m?? [facility] Comment: This patient? s estimated glomerular filtration rate (eGFR) is between 90 mL/min/1.73 m2 (patients with less muscl e mass per kg body weight) and 104 mL/min/1.73 m2 (patients with more muscl e mass per kg body weight) as determined by the CKD-EPI equation. Asse ssment of eGFR is not appropriate when creatinine concentrations are rapidly ch anging. For clinical decisions where creatinine clearance will affect therapy , a 24-hour urine creatinine clearance may be advised. Assignment of CKD stage 1 - 5 for patien ts with an eGFR near the transition point between stages may be based on cli nical assessment of muscle mass and symptoms in addition to eGFR. Specimen Anatomical Collection Method Collection Time Receive d Time (Source) Location / / Volume Laterality Blood 01/26/2022 3:00 AM 2 3:14 EDT AM EDT Resulting Agency Comment Spec In Lab Danny Jewell MD CHEMISTRY ORDERABLES Performing Organization Address City/State/[place] [address] POCT Glucose (01/25/2022 11:56 PM EST) P athologist Signature POC Glucose 149 65 - 199 [facility] mg/dL [facility] Comment: Supplemental ranges: <140 mg/dL before meals <180 mg/dL all other times of the day Specimen Anatomical Collection Method Collection Time Receive d Time (Source) Location / / Volume Laterality Blood 01/25/2022 11:56 01/25/2022 PM EST 11:56 PM EST Danny Jewell MD POINT OF CARE TEST ORDERABLE S Performing Organization Address City/State/[place] [address] POCT Glucose (01/25/2022 9:45 PM EST) athologist Signature POC Glucose 146 65 - 199 [facility] mg/dL [facility] Comment: Supplemental ranges: <140 mg/dL before meals <180 mg/dL all other times of the day Specimen Anatomical Collection Method Collection Time Receive d Time (Source) Location / / Volume Laterality Blood 01/25/2022 9:45 PM 2 9:45 EST PM EST Danny Jewell MD POINT OF CARE TEST ORDERABLE S Performing Organization Address City/State/[place] [address] POCT Glucose (01/25/2022 8:10 PM EST) athologist Signature POC Glucose 135 65 - 199 [facility] mg/dL [facility] Comment: Supplemental ranges: <140 mg/dL before meals <180 mg/dL all other times of the day Specimen Anatomical Collection Method Collection Time Receive d Time (Source) Location / / Volume Laterality Blood 01/25/2022 8:10 PM 2 8:10 EST PM EST Danny Jewell MD POINT OF CARE TEST ORDERABLE S Performing Organization Address City/State/ZIP Code Phon e Number [address] POCT Glucose (01/25/2022 5:59 PM EST) athologist Signature POC Glucose 146 65 - 199 [facility] mg/dL [facility] Comment: Supplemental ranges: <140 mg/dL before meals <180 mg/dL all other times of the day Specimen Anatomical Collection Method Collection Time Receive d Time (Source) Location / / Volume Laterality Blood 01/25/2022 5:59 PM 2 5:59 EST PM EST Danny Jewell MD POINT OF CARE TEST ORDERABLE S Performing Organization Address City/[facility]/[place] [address] POCT Glucose (01/25/2022 4:15 PM EST) athologist Signature POC Glucose 140 65 - [facility] Comment: Supplemental ranges: <140 mg/dL before meals <180 mg/dL all other times of the day Specimen Anatomical Collection Method Collection Time Receive d Time (Source) Location / / Volume Laterality Blood 01/25/2022 4:15 PM 2 4:15 EST PM EST Danny Jewell MD POINT OF CARE TEST ORDERABLE S Performing Organization Address [facility]/[place] [address] Potassium (01/25/2022 4:15 PM EST) athologist Signature Potassium 4.1 3.5 - 5.0 [facility]L [facility] Comment: Please note: ??Patients with WBC >100,00 0 may have falsely elevated Potassium levels. ??For accurate Potassium quantif ication in these patients send serum separator tube (gold top) for subsequent determinations. ??Contact the Clinical Chemistry Laboratory if there are any qu estions. Specimen Anatomical Collection Method Collection Time Receive d Time (Source) Location / / Volume Laterality Blood 01/25/2022 4:15 PM 2 4:31 EST PM EST Resulting Agency Comment Spec In Lab Danny Jewell MD CHEMISTRY ORDERABLES Performing Organization Address City/[facility]/ZIP Code Phon e Number [address] Potassium (01/25/2022 12:30 PM EST) athologist Signature Potassium 3.8 3.5 - 5.0 [facility]/L [facility] Comment: Please note: ??Patients with WBC >100,00 0 may have falsely elevated Potassium levels. ??For accurate Potassium quantif ication in these patients send serum separator tube (gold top) for subsequent determinations. ??Contact the Clinical Chemistry Laboratory if there are any qu estions. Specimen Anatomical Collection Method Collection Time Receive d Time (Source) Location / / Volume Laterality Blood 01/25/2022 12:30 01/25/2022 PM EST 12:37 PM EST Resulting Agency Comment Spec In Lab Danny Jewell MD CHEMISTRY ORDERABLES Performing Organization Address City/State/ZIP Code Phon e Number [address] POCT Glucose (01/25/2022 12:27 PM EST) athologist Signature POC Glucose 149 65 - [address] [facility] mg/dL [facility] Comment: Supplemental ranges: <140 mg/dL before meals <180 mg/dL all other times of the day Specimen Anatomical Collection Method Collection Time Receive d Time (Source) Location / / Volume Laterality Blood 01/25/2022 12:27 01/25/2022 PM EST 12:27 PM EST Danny Jewell MD POINT OF CARE TEST ORDERABLE S Performing Organization Address City/State/ZIP Code Phon e Number [address] POCT Glucose (01/25/2022 10:16 AM EST) athologist Signature POC Glucose 146 65 - [address] [facility] mg[facility]dL [facility] Comment: Supplemental ranges: <140 mg/dL before meals <180 mg/dL all other times of the day Specimen Anatomical Collection Method Collection Time Receive d Time (Source) Location / / Volume Laterality Blood 01/25/2022 10:16 01/25/2022 AM EST 10:16 AM EST Danny Jewell MD POINT OF CARE TEST ORDERABLE S Performing Organization Address City/[facility]/ZIP Code Phon e Number [address] POCT Glucose (01/25/2022 8:53 AM EST) P athologist Signature POC Glucose 141 65 - 199 [facility] mg/dL [facility] Comment: Supplemental ranges: <140 mg/dL before meals <180 mg/dL all other times of the day Specimen Anatomical Collection Method Collection Time Receive d Time (Source) Location / / Volume Laterality Blood 01/25/2022 8:53 AM 2 8:53 EST AM EST Danny Jewell MD POINT OF CARE TEST ORDERABLE S Performing Organization Address City/[facility]/[place] [address] (ABNORMAL) Potassium (01/25/2022 8:50 AM EST) athologist Signature Potassium 3.4 (L) 3.5 - 5.0 [facility] mmol/L [facility] Comment: Please note: ??Patients with WBC >100,00 0 may have falsely elevated Potassium levels. ??For accurate Potassium quantif ication in these patients send serum separator tube (gold top) for subsequent determinations. ??Contact the Clinical Chemistry Laboratory if there are any qu estions. Specimen Anatomical Collection Method Collection Time Receive d Time (Source) Location / / Volume Laterality Blood 01/25/2022 8:50 AM 2 9:01 EST AM EST Resulting Agency Comment Spec In Lab Danny Jewell MD CHEMISTRY ORDERABLES Performing Organization Address City/[facility]/[place] [address] POCT Glucose (01/25/2022 8:10 AM EST) athologist Signature POC Glucose 138 65 - [facility]dL [facility] Comment: Supplemental ranges: <140 mg/dL before meals <180 mg/dL all other times of the day Specimen Anatomical Collection Method Collection Time Receive d Time (Source) Location / / Volume Laterality Blood 01/25/2022 8:10 AM 2 8:10 EST AM EST Danny Jewell MD POINT OF CARE TEST ORDERABLE S Performing Organization Address City/[facility]/[place] [address] POCT Glucose (01/25/2022 5:55 AM EST) athologist Signature POC Glucose 132 65 - 199 [facility] [place] mg/dL [facility] Comment: Supplemental ranges: <140 mg/dL before meals <180 mg/dL all other times of the day Specimen Anatomical Collection Method Collection Time Receive d Time (Source) Location / / Volume Laterality Blood 01/25/2022 5:55 AM 2 5:55 EST AM EST Danny Jewell MD POINT OF CARE TEST ORDERABLE S Performing Organization Address City/State/[place] [address] POCT Glucose (01/25/2022 4:04 AM EST) athologist Signature POC Glucose 124 65 - 199 [facility] mg/dL [facility] Comment: Supplemental ranges: <140 mg/dL before meals <180 mg/dL all other times of the day Specimen Anatomical Collection Method Collection Time Receive d Time (Source) Location / / Volume Laterality Blood 01/25/2022 4:04 AM 2 4:04 EST AM EST Danny Jewell MD POINT OF CARE TEST ORDERABLE S Performing Organization Address City/State/[place] [address] POCT Glucose (01/25/2022 2:05 AM EST) athologist Signature POC Glucose 136 65 - 199 [place] [place] mg/dL [facility] Comment: Supplemental ranges: <140 mg/dL before meals <180 mg/dL all other times of the day Specimen Anatomical Collection Method Collection Time Receive d Time (Source) Location / / Volume Laterality Blood 01/25/2022 2:05 AM 2 2:05 EST AM EST Danny Jewell MD POINT OF CARE TEST ORDERABLE S Performing Organization Address City/State/[place] [address] (ABNORMAL) Basic Metabolic Panel (non-fasting) (01/25/2022 2:00 AM EST) athologist Signature Glucose Lvl 131 65 - 199 [facility] mg/dL [facility] Comment: Diabetes: >=200 mg/dL plus symp toms BUN 12 10 - 20 mg/dL [facility] Creatinine 0.88 0.80 - 1.50 mg/dL [facility] Sodium 142 135 - 145 mmol/L [facility] Potassium 3.3 (L) 3.5 - 5.0 mmol/L [facility] Comment: Please note: ??Patients with WBC >100,00 0 may have falsely elevated Potassium levels. ??For accurate Potassium quantif ication in these patients send serum separator tube (gold top) for subsequent determinations. ??Contact the Clinical Chemistry Laboratory if there are any qu estions. Chloride 108 (H) 98 - 107 mmol/L [facility] CO2 25 22 - 31 mmol/L [facility] Anion Gap 9 5 - 15 mmol/L [facility] Calcium 7.7 (L) 8.5 - 10.5 mg/dL [facility] Estimated GFR 89 >=60 mL/min/1.73 m?? [facility] Comment: This patient? s estimated glomerular filtration rate (eGFR) is between 89 mL/min/1.73 m2 (patients with less muscl e mass per kg body weight) and 103 mL/min/1.73 m2 (patients with more muscl e mass per kg body weight) as determined by the CKD-EPI equation. Asse ssment of eGFR is not appropriate when creatinine concentrations are rapidly ch anging. For clinical decisions where creatinine clearance will affect therapy , a 24-hour urine creatinine clearance may be advised. Assignment of CKD stage 1 - 5 for patien ts with an eGFR near the transition point between stages may be based on cli nical assessment of muscle mass and symptoms in addition to eGFR. Specimen Anatomical Collection Method Collection Time Receive d Time (Source) Location / / Volume Laterality Blood 01/25/2022 2:00 AM 2 2:13 EST AM EST Resulting Agency Comment Spec In Lab Danny Jewell MD CHEMISTRY ORDERABLES Performing Organization Address City/State/[place] [address] POCT Glucose (01/24/2022 11:52 PM EST) athologist Signature POC Glucose 146 65 - 199 [facility] mg/dL [facility] Comment: Supplemental ranges: <140 mg/dL before meals <180 mg/dL all other times of the day Specimen Anatomical Collection Method Collection Time Receive d Time (Source) Location / / Volume Laterality Blood 01/24/2022 11:52 01/24/2022 PM EST 11:52 PM EST Danny Jewell MD POINT OF CARE TEST ORDERABLE S Performing Organization Address City/State/ZIP Code Phon e Number [address] POCT Glucose (01/24/2022 10:00 PM EST) athologist Signature POC Glucose 140 65 - 199 [facility] mg/dL [facility] Comment: Supplemental ranges: <140 mg/dL before meals <180 mg/dL all other times of the day Specimen Anatomical Collection Method Collection Time Receive d Time (Source) Location / / Volume Laterality Blood 01/24/2022 10:00 01/24/2022 PM EST 10:00 PM EST Danny Jewell MD POINT OF CARE TEST ORDERABLE S Performing Organization Address City/State/ZIP Code [place] [address] POCT Glucose (01/24/2022 7:43 PM EST) athologist Signature POC Glucose 173 65 - 199 GABRIELLE LOY mg/dL [facility] Comment: Supplemental ranges: <140 mg/dL before meals <180 mg/dL all other times of the day Specimen Anatomical Collection Method Collection Time Receive d Time (Source) Location / / Volume Laterality Blood 01/24/2022 7:43 PM 7:43 EST PM EST Danny Jewell MD POINT OF CARE TEST ORDERABLE S Performing Organization Address City/State/[place] [address] POCT Glucose (01/24/2022 6:53 PM EST) athologist Signature POC Glucose 183 65 - 199 GABRIELLE LOY mg/dL [facility] Comment: Supplemental ranges: <140 mg/dL before meals <180 mg/dL all other times of the day Specimen Anatomical Collection Method Collection Time Receive d Time (Source) Location / / Volume Laterality Blood 01/24/2022 6:53 PM 2 6:53 EST PM EST Danny Jewell MD POINT OF CARE TEST ORDERABLE S Performing Organization Address City/State/[place] [address] Potassium (01/24/2022 4:45 PM EST) athologist Signature Potassium 3.8 3.5 - 5.0 [facility] mmol/L [facility] Comment: Please note: ??Patients with WBC >100,00 0 may have falsely elevated Potassium levels. ??For accurate Potassium quantif ication in these patients send serum separator tube (gold top) for subsequent determinations. ??Contact the Clinical Chemistry Laboratory if there are any qu estions. Specimen Anatomical Collection Method Collection Time Receive d Time (Source) Location / / Volume Laterality Blood 01/24/2022 4:45 PM 2 5:18 EST PM EST Resulting Agency Comment Spec In Lab Danny Jewell MD CHEMISTRY ORDERABLES Performing Organization Address City/State/[place] [address] (ABNORMAL) POCT Glucose (01/24/2022 4:38 PM EST) athologist Signature POC Glucose 216 (H) 65 - 199 GABRIELLE FERNÁNDEZLOY mg/dL [facility] Comment: Supplemental ranges: <140 mg/dL before meals <180 mg/dL all other times of the day Specimen Anatomical Collection Method Collection Time Receive d Time (Source) Location / / Volume Laterality Blood 01/24/2022 4:38 PM 2 4:38 EST PM EST Danny Jewell MD POINT OF CARE TEST ORDERABLE S Performing Organization Address City/State/[place] [address] (ABNORMAL) POCT Glucose (01/24/2022 4:02 PM EST) P athologist Signature POC Glucose 200 (H) 65 - 199 GABRIELLE LOY mg/dL [facility] Comment: Supplemental ranges: <140 mg/dL before meals <180 mg/dL all other times of the day Specimen Anatomical Collection Method Collection Time Receive d Time (Source) Location / / Volume Laterality Blood 01/24/2022 4:02 PM 2 4:02 EST PM EST Danny Jewell MD POINT OF CARE TEST ORDERABLE S Performing Organization Address City/State/[place] [address] (ABNORMAL) POCT Glucose (01/24/2022 2:10 PM EST) athologist Signature POC Glucose 218 (H) 65 - 199 GABRIELLE LOY mg/dL [facility] Comment: Supplemental ranges: <140 mg/dL before meals <180 mg/dL all other times of the day Specimen Anatomical Collection Method Collection Time Receive d Time (Source) Location / / Volume Laterality Blood 01/24/2022 2:10 PM 2 2:10 EST PM EST Danny Jewell MD POINT OF CARE TEST ORDERABLE S Performing Organization Address City/State/[place] [address] (ABNORMAL) POCT Glucose (01/24/2022 12:20 PM EST) athologist Signature POC Glucose 237 (H) 65 - 199 GABRIELLE LOY mg/dL [facility] Comment: Supplemental ranges: <140 mg/dL before meals <180 mg/dL all other times of the day Specimen Anatomical Collection Method Collection Time Receive d Time (Source) Location / / Volume Laterality Blood 01/24/2022 12:20 01/24/2022 PM EST 12:20 PM EST Danny Jewell MD POINT OF CARE TEST ORDERABLE S Performing Organization Address City/State/[place] [address] (ABNORMAL) BLOOD GAS 2 ARTERIAL (01/24/2022 9:43 AM EST) Analysis Performed At Patho logist Time Signature pH Art 7.42 7.35 - [facility] 7.45 [facility] pCO2 Art 38 35 - 45 [facility] mmHg [facility] pO2 Art 65 (L) 85 - 104 [facility] LABORATORY HCO3 Art 24.5 20.0 - [facility] 26.0 [facility] mmol/L [facility] LABORATORY BE Art 0.0 -3.0 - 3.0 [facility] mmol/L [facility] Hgb Blood Gas 9.2 (L) 13.7 - [facility] 16.5 g/dL [facility] O2HB Art 91.0 (L) 94.0 - [facility] 97.0 % [facility] COHB Art 0.3 % [facility] Comment: Nonsmokers: 0.5-1.5% COHB Smokers: Variable, but usually less than 10% Toxic: 20-30% COHB Lethal: Greater than 60% COHB METHB Art 0.9 <=1.5 % [facility] Na Whole Blood 134 (L) 135 - 145 mmol/L [facility] K Whole Blood 3.6 3.5 - 5.0 mmol/L [facility] Comment: Please note: Patients with WBC >100,000 may have falsely elevated Potassium levels. Contact the Clinical Chemistry L aboratory if there are any questions. ICa Whole Blood 1.16 1.15 - 1.33 mmol/L [facility] Comment: Note: ??Total bilirubin higher than 20 m g/dL may lead to falsely low ionized calcium. CL Whole Blood 106 98 - 107 mmol/L [facility] Gluc Whole Bld 193 65 - 199 mg/dL [facility] Comment: Diabetes: >=200 mg/dL plus symp toms. Lactate WB 1.2 0.5 - 2.2 mmol/L [facility] FIO2 Art 40 % [facility] PF Ratio Art 162 [facility] Specimen Anatomical Collection Method Collection Time Receive d Time (Source) Location / / Volume Laterality Blood 01/24/2022 9:43 AM 2 9:43 EST AM EST Danny Jewell MD CHEMISTRY ORDERABLES Performing Organization Address City/[facility]/ZIP Code Phon e Number [address] Potassium (01/24/2022 9:43 AM EST) P athologist Signature Potassium 3.6 3.5 - 5.0 [facility] mmol/L [facility] Comment: Please note: ??Patients with WBC >100,00 0 may have falsely elevated Potassium levels. ??For accurate Potassium quantif ication in these patients send serum separator tube (gold top) for subsequent determinations. ??Contact the Clinical Chemistry Laboratory if there are any qu estions. Specimen Anatomical Collection Method Collection Time Receive d Time (Source) Location / / Volume Laterality Blood 01/24/2022 9:43 AM 2 EST 10:18 AM EST Resulting Agency Comment Spec In Lab Danny Jewell MD CHEMISTRY ORDERABLES Performing Organization Address City/[facility]/ZIP Code Phon e Number [address] POCT Glucose (01/24/2022 8:26 AM EST) athologist Signature POC Glucose 132 65 - [address] [facility] Comment: Supplemental ranges: <140 mg/dL before meals <180 mg/dL all other times of the day Specimen Anatomical Collection Method Collection Time Receive d Time (Source) Location / / Volume Laterality Blood 01/24/2022 8:26 AM 2 8:26 EST AM EST Danny Jewell MD POINT OF CARE TEST ORDERABLE S Performing Organization Address City/[facility]/[place] [address] COVID-19 PCR (01/24/2022 6:23 AM EST) [facility] Method Time Signature SARS-CoV-2 Not Detected Not Detected GABRIELLE SHAFER [facility] Comment: This result should be interpreted in com bination with the clinical observations, patient history and epidem iological information in making a final diagnosis. For testing of asymptomatic i ndividuals, assay performance characteristics and clinical utility hav e not been evaluated. Testing for SARS-CoV-2 (Severe acute respiratory syn drome coronavirus 2, formerly known as 2019 novel coronavirus or 2019-nCoV) to aid in the diagnosis of COVID-19 is performed using the [employer] S-CoV-2 Assay as authorized by the FDA Emergency Use Authorization (EUA). This EUA assay is intended for In-vitro Diagnostic (IVD) use with respiratory sp ecimens such as nasopharyngeal swabs collected from individuals during the ac sharona phase of infection. This assay is performed based on the instructions for use provided by [employer]. and additional guidance provided by CDC and FDA. Testing is performed in the [facility] within the Department of Pathology and Laboratory Medicine at [facility], certified under the Clinical Laboratory Improvement Amendments of 1988 (CLIA), 42 U.S.C. 263a, to perform high complexi ty tests. Assay performance has been verified according to clinical laborator y regulatory requirements for use with specimens collected from individuals jolene pected of COVID-19. Test results are provided above. A result of Not Detecte d indicates that the viral RNA target is not present above the limit of detect ion, but does not preclude SARS-CoV-2 infection. False negative results may oc cur if a specimen is improperly collected, transported or handled; if am plification inhibitors are present; or if inadequate numbers of viral particles are present in the specimen. When a diagnostic test is negative, the possibi lity of a false negative result should be considered in the context of a patien t's recent exposures and the presence of clinical signs and symptoms consisten t with COVID-19. A result of Detected indicates that RNA from SARS-CoV-2 was d etected and the patient is infected. As required or requested by public health a uthorities, positive specimens may be sent for additional testing. Positive an d negative predictive values for this test are highly dependent on disease pre valence. A result of Invalid indicates that neither the viral RNA tar gets nor the internal control target was detected. An invalid result suggests the presence of inhibitors. Recollection and re-testing is recommend ed in the case of an invalid result. CDC COVID-19 criteria for testing on hum an specimens and clinical management guidance information are available at [facility] CDC Coronavirus Disease 2019 (COVID-19) webpage under Information fo r Healthcare Professionals (https://www.cdc.gov/coronavirus/2019-nc ov/hcp/index.html) Additional information about this and ot her EUA tests can be found in provider and patient fact sheets at the following FDA website: https://www.fda.gov/medical-devices/kecfzduievs-zlwizoh-1997-bhpta-81-garyfzyva- yrw-kdfjrgvkllhsen-ctuyzid-devices/cduwt-gwtalfiohyr-wpwh SARS-Cov-2 RNA Source [place] [facility] Specimen (Source) Anatomical Collection Method Collection Time Re ceived Time Location / / Volume Laterality Nasopharyngeal Swab 01/24/2022 6:23 01/24 AM EST 7:27 AM EST Comment: Symptoms->Surveillance Resulting Agency Comment Spec In Lab Danny Jewell MD MICROBIOLOGY - GENERAL ORDER CATHY Performing Organization Address City/State/[place] [address] POCT Glucose (01/24/2022 6:07 AM EST) P athologist Signature POC Glucose 160 65 - 199 [facility] mg/dL [facility] Comment: Supplemental ranges: <140 mg/dL before meals <180 mg/dL all other times of the day Specimen Anatomical Collection Method Collection Time Receive d Time (Source) Location / / Volume Laterality Blood 01/24/2022 6:07 AM 6:07 EST AM EST Danny Jewell MD POINT OF CARE TEST ORDERABLE S Performing Organization Address City/[facility]/[place] [address] (ABNORMAL) Blood Gas Arterial (01/24/2022 6:06 AM EST) Analysis Performed At Patho logist Time Signature pH Art 7.47 (H) 7.35 - [facility] 7.45 [facility] pCO2 Art 30 (L) 35 - 45 [facility] mmHg [facility] pO2 Art 95 85 - 104 [facility] LABORATORY HCO3 Art 21.2 20.0 - [facility] 26.0 [facility] mmol/L [facility] BE Art -2.4 -3.0 - 3.0 [facility] mmol/L [facility] Hgb Blood Gas 8.9 (L) 13.7 - [facility] 16.5 g/dL [facility] O2HB Art 96.1 94.0 - [facility] 97.0 % [facility] COHB Art 0.3 % [facility] Comment: Nonsmokers: ??0.5-1.5% COHB Smokers: ??Variable, but usually less th an 10% Toxic: 20 - 30% COHB Lethal: ??Greater than 60% COHB METHB Art 0.3 <=1.5 % [facility] Na Whole Blood 136 135 - 145 mmol/L [facility] K Whole Blood 3.6 3.5 - 5.0 mmol/L [facility] Comment: Please note: ??Patients with WBC >100,00 0 may have falsely elevated Potassium levels. ??Contact the Clinical Chemistry Laboratory if there are any questions. ICa Whole Blood 1.12 (L) 1.15 - 1.33 mmol/L [facility] Comment: Note: ??Total bilirubin higher than 20 m g/dL may lead to falsely low ionized calcium. CL Whole Blood 108 (H) 98 - 107 mmol/L [facility] Gluc Whole Bld 146 65 - 199 mg/dL [facility] Comment: Diabetes: >=200 mg/dL plus symp toms. Lactate WB 1.1 0.5 - 2.2 mmol/L [facility] Specimen Anatomical Collection Method Collection Time Receive d Time (Source) Location / / Volume Laterality Blood Arterial Draw / 01/24/2022 6:06 AM 2021 6:18 Unknown EST AM EST Resulting Agency Comment Spec In Lab Damián T[facility] CHEMISTRY ORDERABLES Performing Organization Address City/State/ZIP Code Phon e Number [address] POCT Glucose (01/24/2022 3:55 AM EST) athologist Signature POC Glucose 169 65 - [address] [facility] mg/dL [facility] Comment: Supplemental ranges: <140 mg/dL before meals <180 mg/dL all other times of the day Specimen Anatomical Collection Method Collection Time Receive d Time (Source) Location / / Volume Laterality Blood 01/24/2022 3:55 AM 3:55 EST AM EST Danny Jewell MD POINT OF CARE TEST ORDERABLE S Performing Organization Address City/[facility]/ZIP Code Phon e Number [address] (ABNORMAL) Basic Metabolic Panel (non-fasting) (01/24/2022 2:30 AM EST) athologist Signature Glucose Lvl 156 65 - [address] [facility] mg/dL [facility] Comment: Diabetes: >=200 mg/dL plus symp toms BUN 18 10 - 20 mg/dL [facility] Creatinine 1.15 0.80 - 1.50 mg/dL [facility] Comment: result rechecked-bm Sodium 141 135 - 145 mmol/L [facility] Potassium 3.4 (L) 3.5 - 5.0 mmol/L [facility] Comment: Please note: ??Patients with WBC >100,00 0 may have falsely elevated Potassium levels. ??For accurate Potassium quantif ication in these patients send serum separator tube (gold top) for subsequent determinations. ??Contact the Clinical Chemistry Laboratory if there are any qu estions. Chloride 108 (H) 98 - 107 mmol/L [facility] CO2 24 22 - 31 mmol/L [facility] Anion Gap 9 5 - 15 mmol/L [facility] Calcium 7.7 (L) 8.5 - 10.5 mg/dL [facility] Estimated GFR 65 >=60 mL/min/1.73 m?? [facility] Comment: This patient? s estimated glomerular filtration rate (eGFR) is between 65 mL/min/1.73 m2 (patients with less muscl e mass per kg body weight) and 76 mL/min/1.73 m2 (patients with more muscl e mass per kg body weight) as determined by the CKD-EPI equation. Asse ssment of eGFR is not appropriate when creatinine concentrations are rapidly ch anging. For clinical decisions where creatinine clearance will affect therapy , a 24-hour urine creatinine clearance may be advised. Assignment of CKD stage 1 - 5 for patien ts with an eGFR near the transition point between stages may be based on cli nical assessment of muscle mass and symptoms in addition to eGFR. Specimen Anatomical Collection Method Collection Time Receive d Time (Source) Location / / Volume Laterality Blood 01/24/2022 2:30 AM 2 2:43 EST AM EST Resulting Agency Comment Spec In Lab Danny Jewell MD CHEMISTRY ORDERABLES Performing Organization Address City/State/ZIP Code Phon e Number [address] POCT Glucose (01/24/2022 2:02 AM EST) athologist Signature POC Glucose 169 65 - 199 [facility] mg/dL [facility] Comment: Supplemental ranges: <140 mg/dL before meals <180 mg/dL all other times of the day Specimen Anatomical Collection Method Collection Time Receive d Time (Source) Location / / Volume Laterality Blood 01/24/2022 2:02 AM 2 2:02 EST AM EST Danny Jewell MD POINT OF CARE TEST ORDERABLE S Performing Organization Address City/State/ZIP Code Phon e Number [address] POCT Glucose (01/24/2022 12:59 AM EST) athologist Signature POC Glucose 160 65 - 199 [facility] Comment: Supplemental ranges: <140 mg/dL before meals <180 mg/dL all other times of the day Specimen Anatomical Collection Method Collection Time Receive d Time (Source) Location / / Volume Laterality Blood 01/24/2022 12:59 01/24/2022 AM EST 12:59 AM EST Danny Jewell MD POINT OF CARE TEST ORDERABLE S Performing Organization Address City/State/ZIP Code Phon e Number [address] POCT Glucose (01/23/2022 11:56 PM EST) athologist Signature POC Glucose 179 65 - 199 GABRIELLE LOY mg/dL [facility] Comment: Supplemental ranges: <140 mg/dL before meals <180 mg/dL all other times of the day Specimen Anatomical Collection Method Collection Time Receive d Time (Source) Location / / Volume Laterality Blood 01/23/2022 11:56 01/23/2022 PM EST 11:56 PM EST Danny Jewell MD POINT OF CARE TEST ORDERABLE S Performing Organization Address City/State/[place] [address] POCT Glucose (01/23/2022 10:01 PM EST) athologist Signature POC Glucose 167 65 - 199 GABRIELLE LOY mg/dL [facility] Comment: Supplemental ranges: <140 mg/dL before meals <180 mg/dL all other times of the day Specimen Anatomical Collection Method Collection Time Receive d Time (Source) Location / / Volume Laterality Blood 01/23/2022 10:01 01/23/2022 PM EST 10:01 PM EST Danny Jewell MD POINT OF CARE TEST ORDERABLE S Performing Organization Address City/State/ZIP Code Phon e Number [address] POCT Glucose (01/23/2022 8:49 PM EST) athologist Signature POC Glucose 167 65 - 199 GABRIELLE LOY mg/dL [facility] Comment: Supplemental ranges: <140 mg/dL before meals <180 mg/dL all other times of the day Specimen Anatomical Collection Method Collection Time Receive d Time (Source) Location / / Volume Laterality Blood 01/23/2022 8:49 PM 2 8:49 EST PM EST Danny Jewell MD POINT OF CARE TEST ORDERABLE S Performing Organization Address City/State/Z[place] [address] (ABNORMAL) BLOOD GAS 2 ARTERIAL (01/23/2022 5:33 PM EST) Analysis Performed At Patho logist Time Signature pH Art 7.48 (H) 7.35 - [facility] 7.45 [facility] pCO2 Art 31 (L) 35 - 45 [facility] mmHg [facility] pO2 Art 87 85 - 104 [facility] LABORATORY HCO3 Art 22.2 20.0 - [facility] 26.0 [facility] mmol/L [facility] LABORATORY BE Art -1.3 -3.0 - 3.0 [facility] mmol/L [facility] Hgb Blood Gas 8.6 (L) 13.7 - [facility] 16.5 g/dL [facility] O2HB Art 94.6 94.0 - [facility] 97.0 % [facility] COHB Art 0.3 % [facility] Comment: Nonsmokers: 0.5-1.5% COHB Smokers: Variable, but usually less than 10% Toxic: 20-30% COHB Lethal: Greater than 60% COHB METHB Art 0.9 <=1.5 % [facility] Na Whole Blood 136 135 - 145 mmol/L [facility] K Whole Blood 3.4 (L) 3.5 - 5.0 mmol/L [facility] Comment: Please note: Patients with WBC >100,000 may have falsely elevated Potassium levels. Contact the Clinical Chemistry L aboratory if there are any questions. ICa Whole Blood 1.14 (L) 1.15 - 1.33 mmol/L [facility] Comment: Note: ??Total bilirubin higher than 20 m g/dL may lead to falsely low ionized calcium. CL Whole Blood 105 98 - 107 mmol/L [facility] Gluc Whole Bld 127 65 - 199 mg/dL [facility] Comment: Diabetes: >=200 mg/dL plus symp toms. Lactate WB 1.1 0.5 - 2.2 mmol/L [facility] FIO2 Art 40 % [facility] PF Ratio Art 218 [facility]ATORY Specimen Anatomical Collection Method Collection Time Receive d Time (Source) Location / / Volume Laterality Blood 01/23/2022 5:33 PM 2 5:33 EST PM EST Danny Jewell MD CHEMISTRY ORDERABLES Performing Organization Address City/State/Z[place] [address] Potassium (01/23/2022 5:33 PM EST) athologist Signature Potassium 3.6 3.5 - 5.0 [facility] mmol/L [facility] Comment: Please note: ??Patients with WBC >100,00 0 may have falsely elevated Potassium levels. ??For accurate Potassium quantif ication in these patients send serum separator tube (gold top) for subsequent determinations. ??Contact the Clinical Chemistry Laboratory if there are any qu estions. Specimen Anatomical Collection Method Collection Time Receive d Time (Source) Location / / Volume Laterality Blood 01/23/2022 5:33 PM 2 5:42 EST PM EST Resulting Agency Comment Spec In Lab Danny Jewell MD CHEMISTRY ORDERABLES Performing Organization Address City/[facility]/[place]IP [place] [address] POCT Glucose (01/23/2022 3:57 PM EST) athologist Signature POC Glucose 134 65 - 199 [facility] mg/dL [facility] Comment: Supplemental ranges: <140 mg/dL before meals <180 mg/dL all other times of the day Specimen Anatomical Collection Method Collection Time Receive d Time (Source) Location / / Volume Laterality Blood 01/23/2022 3:57 PM 2 3:57 EST PM EST Danny Jewell MD POINT OF CARE TEST ORDERABLE S Performing Organization Address City/State/ZIP Code Phon e Number [place] [id number] POCT Glucose (01/23/2022 2:20 PM EST) athologist Signature POC Glucose 122 65 - 199 [facility] LOY mg/dL [facility] Comment: Supplemental ranges: <140 mg/dL before meals <180 mg/dL all other times of the day Specimen Anatomical Collection Method Collection Time Receive d Time (Source) Location / / Volume Laterality Blood 01/23/2022 2:20 PM 2 2:20 EST PM EST Danny Jewell MD POINT OF CARE TEST ORDERABLE S Performing Organization Address City/State/ZIP Code Phon e Number [address] [address] POCT Glucose (01/23/2022 1:27 PM EST) athologist Signature POC Glucose 125 65 - [facility] Comment: Supplemental ranges: <140 mg/dL before meals <180 mg/dL all other times of the day Specimen Anatomical Collection Method Collection Time Receive d Time (Source) Location / / Volume Laterality Blood 01/23/2022 1:27 PM 2 1:27 EST PM EST Danny Jewell MD POINT OF CARE TEST ORDERABLE S Performing Organization Address City/State/[place] [address] POCT Glucose (01/23/2022 12:50 PM EST) athologist Signature POC Glucose 117 65 - 199 [place] mg/dL [facility] Comment: Supplemental ranges: <140 mg/dL before meals <180 mg/dL all other times of the day Specimen Anatomical Collection Method Collection Time Receive d Time (Source) Location / / Volume Laterality Blood 01/23/2022 12:50 01/23/2022 PM EST 12:50 PM EST Danny Jewell MD POINT OF CARE TEST ORDERABLE S Performing Organization Address City/State/[place] [address] POCT Glucose (01/23/2022 10:37 AM EST) athologist Signature POC Glucose 142 65 - [address] [facility]dL [facility] Comment: Supplemental ranges: <140 mg/dL before meals <180 mg/dL all other times of the day Specimen Anatomical Collection Method Collection Time Receive d Time (Source) Location / / Volume Laterality Blood 01/23/2022 10:37 01/23/2022 AM EST 10:37 AM EST Danny Jewell MD POINT OF CARE TEST ORDERABLE S Performing Organization Address City/State/ZIP Code Phon e Number [address] POCT Glucose (01/23/2022 7:55 AM EST) athologist Signature POC Glucose 146 65 - [address] [facility] mg[facility]dL [facility] Comment: Supplemental ranges: <140 mg/dL before meals <180 mg/dL all other times of the day Specimen Anatomical Collection Method Collection Time Receive d Time (Source) Location / / Volume Laterality Blood 01/23/2022 7:55 AM 7:55 EST AM EST Danny Jewell MD POINT OF CARE TEST ORDERABLE S Performing Organization Address City/State/ZIP Code Phon e Number [address] (ABNORMAL) Differential, Automated (01/23/2022 6:10 AM EST) [facility] gist Method Time Signature Neutrophils % 82.9 % [facility] Neutr Abs (ANC) 8.47 (H) 1.70 - [facility] 6.10 [facility] x10(3)/[facility] L LABORATORY Lymphocytes % 8.2 % [facility] Lymphocytes Abs 0.8 (L) 0.9 - 3.2 [facility] x10(3)/[facility] LABORATORY Monocytes % 7.8 % [facility] Monocyte Abs 0.8 0.3 - 0.9 [facility] x10(3)/[facility] LABORATORY Eosinophils % 0.2 % [facility] Eosinophils Abs 0.0 0.0 - 0.4 [facility] x10(3)/[facility] LABORATORY Basophils % 0.2 % [facility] Basophils Abs 0.0 0.0 - 0.1 [facility] x10(3)/[facility] LABORATORY Immature Gran % 0.70 % [facility] Comment: Immature granulocytes(IG's)percentage an d absolute count will include metamyelocytes, myelocytes, and promyelo cytes. Blood smears from CBCs yielding IG's will be scanned manually for concor dance. If this scan disagrees with the automated IG or if promyelocytes are not ed, a manual differential will be performed. Nikole Gran Abs 0.07 (H) 0.00 - 0.04 x10(3)/[facility] LABORATORY Specimen Anatomical Collection Method Collection Time Receive d Time (Source) Location / / Volume Laterality Blood 01/23/2022 6:10 AM 6:55 EST AM EST Resulting Agency Comment Spec In Lab Damián TOUSSAINT HEMATOLOGY ORDERABLES Performing Organization Address City/State/[place] [address] (ABNORMAL) Hemogram (01/23/2022 6:10 AM EST) P athologist Signature WBC 10.2 (H) 4.0 - 9.5 [facility] x10(3)/[facility] LABORATORY RBC 2.56 (L) 4.58 - [facility] 5.54 [facility] x10(6)/[facility] LABORATORY Hemoglobin 8.2 (L) 13.7 - [facility] 16.5 g/dL [facility] Comment: This result has been called to RICHARD BRUNO by Rigoberto Brown on 01 23 2022 at 0821, and has been read back. Hematocrit 22.6 (L) 40.5 - 48.5 % [facility] MCV 88.3 82.9 - 93.1 fL [facility] MCH 32.0 27.5 - 32.1 pg [facility] MCHC 36.3 (H) 32.0 - 35.7 g/dL [facility] K [facility] Platelets 129 (L) 145 - 357 x10(3)/[facility] LABORATORY RDWSD 43.8 36.0 - 45.0 [facility] LABORATORY RDWCV 13.8 11.4 - 13.8 % [facility] LABORATORY MPV 10.1 7.6 - 12.9 fL [facility] LABORATORY nRBC % Auto 0.0 % [facility] LABORATORY nRBC Abs Auto 0.000 0.000 - 0.000 x10(3)/[facility] LABORATORY Specimen Anatomical Collection Method Collection Time Receive d Time (Source) Location / / Volume Laterality Blood 01/23/2022 6:10 AM 6:55 EST AM EST Resulting Agency Comment Spec In Lab Damián TOUSSAINT HEMATOLOGY ORDERABLES Performing Organization Address City/State/Z[place] [address] (ABNORMAL) BLOOD GAS 2 ARTERIAL (01/23/2022 6:08 AM EST) Analysis Performed At Patho logist Time Signature pH Art 7.38 7.35 - [facility] 7.45 [facility] pCO2 Art 37 35 - 45 [facility] mmHg [facility] pO2 Art 92 85 - 104 [facility] mmHg [facility] HCO3 Art 21.2 20.0 - [facility] 26.0 [facility] mmol/L [facility] LABORATORY BE Art -3.9 (L) -3.0 - 3.0 [facility] mmol/L [facility] Hgb Blood Gas 8.7 (L) 13.7 - [facility] 16.5 g/dL [facility] O2HB Art 95.5 94.0 - [facility] 97.0 % [facility] COHB Art 0.0 % [facility] Comment: Nonsmokers: 0.5-1.5% COHB Smokers: Variable, but usually less than 10% Toxic: 20-30% COHB Lethal: Greater than 60% COHB METHB Art 0.6 <=1.5 % [facility] Na Whole Blood 129 (L) 135 - 145 mmol/L [facility] LABORATORY K Whole Blood 3.8 3.5 - 5.0 mmol/L [facility] Comment: Please note: Patients with WBC >100,000 may have falsely elevated Potassium levels. Contact the Clinical Chemistry L aboratory if there are any questions. ICa Whole Blood 1.06 (L) 1.15 - 1.33 mmol/L [facility] Comment: Note: ??Total bilirubin higher than 20 m g/dL may lead to falsely low ionized calcium. CL Whole Blood 105 98 - 107 mmol/L [facility] Gluc Whole Bld 157 65 - 199 mg/dL [facility] Comment: Diabetes: >=200 mg/dL plus symp toms. Lactate WB 1.8 0.5 - 2.2 mmol/L [facility] LABORATORY FIO2 Art 50 % [facility] PF Ratio Art 184 [facility] LABORATORY Specimen Anatomical Collection Method Collection Time Receive d Time (Source) Location / / Volume Laterality Blood 01/23/2022 6:08 AM 2 6:08 EST AM EST Danny Jewell MD CHEMISTRY ORDERABLES Performing Organization Address City/[facility]/ZIP Code Phon e Number [address] POCT Glucose (01/23/2022 5:13 AM EST) P athologist Signature POC Glucose 178 65 - 199 [facility] mg/dL [facility] Comment: Supplemental ranges: <140 mg/dL before meals <180 mg/dL all other times of the day Specimen Anatomical Collection Method Collection Time Receive d Time (Source) Location / / Volume Laterality Blood 01/23/2022 5:13 AM 2 5:13 EST AM EST Danny Jewell MD POINT OF CARE TEST ORDERABLE S Performing Organization Address City/[facility]/[place] [address] POCT Glucose (01/23/2022 3:25 AM EST) athologist Signature POC Glucose 184 65 - 199 [facility] Comment: Supplemental ranges: <140 mg/dL before meals <180 mg/dL all other times of the day Specimen Anatomical Collection Method Collection Time Receive d Time (Source) Location / / Volume Laterality Blood 01/23/2022 3:25 AM 3:25 EST AM EST Danny Jewell MD POINT OF CARE TEST ORDERABLE S Performing Organization Address City/State/[place] [address] (ABNORMAL) Basic Metabolic Panel (non-fasting) (01/23/2022 2:00 AM EST) athologist Signature Glucose Lvl 193 65 - 199 [facility] mg/dL [facility] Comment: Diabetes: >=200 mg/dL plus symp toms BUN 25 (H) 10 - 20 mg/dL [facility]ORATORY Creatinine 2.06 (H) 0.80 - 1.50 mg/dL [facility] LABORATORY Sodium 135 135 - 145 mmol/L [facility] Potassium 4.5 3.5 - 5.0 mmol/L [facility] Comment: Please note: ??Patients with WBC >100,00 0 may have falsely elevated Potassium levels. ??For accurate Potassium quantif ication in these patients send serum separator tube (gold top) for subsequent determinations. ??Contact the Clinical Chemistry Laboratory if there are any qu estions. Chloride 104 98 - 107 mmol/L [facility] CO2 20 (L) 22 - 31 mmol/L [facility] Anion Gap 11 5 - 15 mmol/L [facility] Calcium 7.8 (L) 8.5 - 10.5 mg/dL [facility] Estimated GFR 32 (L) >=60 mL/min/1.73 m?? [facility] Comment: This patient? s estimated glomerular filtration rate (eGFR) is between 32 mL/min/1.73 m2 (patients with less muscl e mass per kg body weight) and 38 mL/min/1.73 m2 (patients with more muscl e mass per kg body weight) as determined by the CKD-EPI equation. Asse ssment of eGFR is not appropriate when creatinine concentrations are rapidly ch anging. For clinical decisions where creatinine clearance will affect therapy , a 24-hour urine creatinine clearance may be advised. Assignment of CKD stage 1 - 5 for patien ts with an eGFR near the transition point between stages may be based on cli nical assessment of muscle mass and symptoms in addition to eGFR. Specimen Anatomical Collection Method Collection Time Receive d Time (Source) Location / / Volume Laterality Blood 01/23/2022 2:00 AM 2 2:10 EST AM EST Resulting Agency Comment Spec In Lab Danny Jewell MD CHEMISTRY ORDERABLES Performing Organization Address City/[facility]/ZIP [facility] e [address] POCT Glucose (01/23/2022 1:58 AM EST) athologist Signature POC Glucose 194 65 - [facility]dL [facility] Comment: Supplemental ranges: <140 mg/dL before meals <180 mg/dL all other times of the day Specimen Anatomical Collection Method Collection Time Receive d Time (Source) Location / / Volume Laterality Blood 01/23/2022 1:58 AM 2 1:58 EST AM EST Danny Jewell MD POINT OF CARE TEST ORDERABLE S Performing Organization Address City/State/ZIP [facility] e Number [address] POCT Glucose (01/23/2022 1:08 AM EST) athologist Signature POC Glucose 193 65 - [facility] mg[facility]dL [facility] Comment: Supplemental ranges: <140 mg/dL before meals <180 mg/dL all other times of the day Specimen Anatomical Collection Method Collection Time Receive d Time (Source) Location / / Volume Laterality Blood 01/23/2022 1:08 AM 2 1:08 EST AM EST Danny Jewell MD POINT OF CARE TEST ORDERABLE S Performing Organization Address City/State/[place] [address] (ABNORMAL) BLOOD GAS 2 ARTERIAL (01/22/2022 11:58 PM EST) Analysis Performed At Patho logist Time Signature pH Art 7.38 7.35 - [facility] 7.45 [facility] pCO2 Art 35 35 - 45 [facility] mmHg [facility] pO2 Art 94 85 - 104 [facility] LABORATORY HCO3 Art 20.3 20.0 - [facility] 26.0 [facility] mmol/L [facility] LABORATORY BE Art -4.8 (L) -3.0 - 3.0 [facility] mmol/L [facility] Hgb Blood Gas 9.5 (L) 13.7 - [facility] 16.5 g/dL [facility] O2HB Art 95.3 94.0 - [facility] 97.0 % [facility] COHB Art 0.2 % [facility] Comment: Nonsmokers: 0.5-1.5% COHB Smokers: Variable, but usually less than 10% Toxic: 20-30% COHB Lethal: Greater than 60% COHB METHB Art 0.8 <=1.5 % [facility] Na Whole Blood 130 (L) 135 - 145 mmol/L [facility] K Whole Blood 4.3 3.5 - 5.0 mmol/L [facility] Comment: Please note: Patients with WBC >100,000 may have falsely elevated Potassium levels. Contact the Clinical Chemistry L aboratory if there are any questions. ICa Whole Blood 1.08 (L) 1.15 - 1.33 mmol/L [facility] Comment: Note: ??Total bilirubin higher than 20 m g/dL may lead to falsely low ionized calcium. CL Whole Blood 104 98 - 107 mmol/L [facility] Gluc Whole Bld 171 65 - 199 mg/dL [facility] Comment: Diabetes: >=200 mg/dL plus symp toms. Lactate WB 1.3 0.5 - 2.2 mmol/L [facility] FIO2 Art 50 % [facility] PF Ratio Art 188 [facility] LABORATORY Specimen Anatomical Collection Method Collection Time Receive d Time (Source) Location / / Volume Laterality Blood 01/22/2022 11:58 01/22/2022 PM EST 11:58 PM EST Danny Jewell MD CHEMISTRY ORDERABLES Performing Organization Address City/State/ZIP Code Phon e Number [address] POCT Glucose (01/22/2022 11:41 PM EST) athologist Signature POC Glucose 193 65 - [facility] mg[facility]dL [facility] Comment: Supplemental ranges: <140 mg/dL before meals <180 mg/dL all other times of the day Specimen Anatomical Collection Method Collection Time Receive d Time (Source) Location / / Volume Laterality Blood 01/22/2022 11:41 01/22/2022 PM EST 11:41 PM EST Danny Jewell MD POINT OF CARE TEST ORDERABLE S Performing Organization Address City/State/ZIP Code Phon e Number [address] POCT Glucose (01/22/2022 10:48 PM EST) athologist Signature POC Glucose 147 65 - 199 [facility] mg/dL [facility] Comment: Supplemental ranges: <140 mg/dL before meals <180 mg/dL all other times of the day Specimen Anatomical Collection Method Collection Time Receive d Time (Source) Location / / Volume Laterality Blood 01/22/2022 10:48 01/22/2022 PM EST 10:48 PM EST Danny Jewell MD POINT OF CARE TEST ORDERABLE S Performing Organization Address City/State/ZIP Code Phon e Number [address] POCT Glucose (01/22/2022 9:44 PM EST) athologist Signature POC Glucose 136 65 - 199 [place] mg/dL [facility] Comment: Supplemental ranges: <140 mg/dL before meals <180 mg/dL all other times of the day Specimen Anatomical Collection Method Collection Time Receive d Time (Source) Location / / Volume Laterality Blood 01/22/2022 9:44 PM 2 9:44 EST PM EST Danny Jewell MD POINT OF CARE TEST ORDERABLE S Performing Organization Address City/State/ZIP Code Phon e Number [address] POCT Glucose (01/22/2022 8:52 PM EST) athologist Signature POC Glucose 111 65 - [facility] mg/dL [facility] Comment: Supplemental ranges: <140 mg/dL before meals <180 mg/dL all other times of the day Specimen Anatomical Collection Method Collection Time Receive d Time (Source) Location / / Volume Laterality Blood 01/22/2022 8:52 PM 2 8:52 EST PM EST Danny Jewell MD POINT OF CARE TEST ORDERABLE S Performing Organization Address City/State/ZIP Code Phon e Number [address] POCT Glucose (01/22/2022 8:01 PM EST) athologist Signature POC Glucose 120 65 - [facility] mg/dL [facility] Comment: Supplemental ranges: <140 mg/dL before meals <180 mg/dL all other times of the day Specimen Anatomical Collection Method Collection Time Receive d Time (Source) Location / / Volume Laterality Blood 01/22/2022 8:01 PM 2 8:01 EST PM EST Danny Jewell MD POINT OF CARE TEST ORDERABLE S Performing Organization Address City/State/ZIP Code Phon e Number [address] POCT Glucose (01/22/2022 6:30 PM EST) athologist Signature POC Glucose 101 65 - [address] [facility] mg/dL [facility] Comment: Supplemental ranges: <140 mg/dL before meals <180 mg/dL all other times of the day Specimen Anatomical Collection Method Collection Time Receive d Time (Source) Location / / Volume Laterality Blood 01/22/2022 6:30 PM 6:30 EST PM EST Danny Jewell MD POINT OF CARE TEST ORDERABLE S Performing Organization Address City/State/Z[place] [address] (ABNORMAL) BLOOD GAS 2 ARTERIAL (01/22/2022 5:56 PM EST) Analysis Performed At Patho logist Time Signature pH Art 7.34 (L) 7.35 - [facility] 7.45 [facility] pCO2 Art 35 35 - 45 [facility] mmHg [facility] pO2 Art 79 (L) 85 - 104 [facility] LABORATORY HCO3 Art 18.8 (L) 20.0 - [facility] 26.0 [facility] mmol/[facility] LABORATORY BE Art -6.9 (L) -3.0 - 3.0 [facility] mmol/L [facility] Hgb Blood Gas 10.5 (L) 13.7 - [facility] 16.5 g/dL [facility] O2HB Art 93.5 (L) 94.0 - [facility] 97.0 % [facility] COHB Art 0.2 % [facility] Comment: Nonsmokers: 0.5-1.5% COHB Smokers: Variable, but usually less than 10% Toxic: 20-30% COHB Lethal: Greater than 60% COHB METHB Art 0.8 <=1.5 % [facility] Na Whole Blood 133 (L) 135 - 145 mmol/L [facility]AT[facility] K Whole Blood 4.0 3.5 - 5.0 mmol/L [facility] Comment: Please note: Patients with WBC >100,000 may have falsely elevated Potassium levels. Contact the Clinical Chemistry L aboratory if there are any questions. ICa Whole Blood 1.11 (L) 1.15 - 1.33 mmol/L [facility] Comment: Note: ??Total bilirubin higher than 20 m g/dL may lead to falsely low ionized calcium. CL Whole Blood 107 98 - 107 mmol/L [facility] Gluc Whole Bld 97 65 - 199 mg/dL [facility] Comment: Diabetes: >=200 mg/dL plus symp toms. Lactate WB 1.6 0.5 - 2.2 mmol/L [facility] FIO2 Art 50 % [facility] PF Ratio Art 158 [facility] LABORATORY Specimen Anatomical Collection Method Collection Time Receive d Time (Source) Location / / Volume Laterality Blood 01/22/2022 5:56 PM 2 5:56 EST PM EST Danny Jewell MD CHEMISTRY ORDERABLES Performing Organization Address City/[facility]/[place] [address] POCT Glucose (01/22/2022 4:54 PM EST) athologist Signature POC Glucose 125 65 - 199 [facility] mg/dL [facility] Comment: Supplemental ranges: <140 mg/dL before meals <180 mg/dL all other times of the day Specimen Anatomical Collection Method Collection Time Receive d Time (Source) Location / / Volume Laterality Blood 01/22/2022 4:54 PM 2 4:54 EST PM EST Danny Jewell MD POINT OF CARE TEST ORDERABLE S Performing Organization Address City/State/ZIP Code Phon e Number [address] POCT Glucose (01/22/2022 3:48 PM EST) P athologist Signature POC Glucose 127 65 - [facility]dL [facility] Comment: Supplemental ranges: <140 mg/dL before meals <180 mg/dL all other times of the day Specimen Anatomical Collection Method Collection Time Receive d Time (Source) Location / / Volume Laterality Blood 01/22/2022 3:48 PM 2 3:48 EST PM EST Danny Jewell MD POINT OF CARE TEST ORDERABLE S Performing Organization Address City/State/[place] [address] Potassium (01/22/2022 3:15 PM EST) athologist Signature Potassium 4.5 3.5 - 5.[address] [facility] mmol/L [facility] Comment: Please note: ??Patients with WBC >100,00 0 may have falsely elevated Potassium levels. ??For accurate Potassium quantif ication in these patients send serum separator tube (gold top) for subsequent determinations. ??Contact the Clinical Chemistry Laboratory if there are any qu estions. Specimen Anatomical Collection Method Collection Time Receive d Time (Source) Location / / Volume Laterality Blood 01/22/2022 3:15 PM 2 5:30 EST PM EST Resulting Agency Comment Spec In Lab Danny Jewell MD CHEMISTRY ORDERABLES Performing Organization Address City/[facility]/ZIP Code Phon e Number [address] POCT Glucose (01/22/2022 3:14 PM EST) athologist Signature POC Glucose 149 65 - [facility]dL [facility] Comment: Supplemental ranges: <140 mg/dL before meals <180 mg/dL all other times of the day Specimen Anatomical Collection Method Collection Time Receive d Time (Source) Location / / Volume Laterality Blood 01/22/2022 3:14 PM 2 3:14 EST PM EST Danny Jewell MD POINT OF CARE TEST ORDERABLE S Performing Organization Address City/[facility]/[place] [address] POCT Glucose (01/22/2022 2:01 PM EST) athologist Signature POC Glucose 160 65 - [facility] mg/dL [facility] Comment: Supplemental ranges: <140 mg/dL before meals <180 mg/dL all other times of the day Specimen Anatomical Collection Method Collection Time Receive d Time (Source) Location / / Volume Laterality Blood 01/22/2022 2:01 PM 2 2:01 EST PM EST Danny Jewell MD POINT OF CARE TEST ORDERABLE S Performing Organization Address City/State/ZIP Code Phon e Number [facility] [place] [address] (ABNORMAL) BLOOD GAS 2 ARTERIAL (01/22/2022 1:10 PM EST) Analysis Performed At Patho logist Time Signature pH Art 7.33 (L) 7.35 - [facility] 7.45 [facility] pCO2 Art 38 35 - 45 [facility] mmHg [facility] pO2 Art 76 (L) 85 - 104 [facility] mmHg [facility] HCO3 Art 19.7 (L) 20.0 - [facility] 26.0 [facility] mmol/L [facility] LABORATORY BE Art -6.2 (L) -3.0 - 3.0 [facility] mmol/L [facility] Hgb Blood Gas 10.8 (L) 13.7 - [facility] 16.5 g/dL [facility] O2HB Art 93.0 (L) 94.0 - [facility] 97.0 % [facility] COHB Art 0.3 % [facility] [facility] Comment: Nonsmokers: 0.5-1.5% COHB Smokers: Variable, but usually less than 10% Toxic: 20-30% COHB Lethal: Greater than 60% COHB METHB Art 0.8 <=1.5 % [facility] Na Whole Blood 132 (L) 135 - 145 mmol/L [facility] K Whole Blood 4.0 3.5 - 5.0 mmol/L [facility] Comment: Please note: Patients with WBC >100,000 may have falsely elevated Potassium levels. Contact the Clinical Chemistry L aboratory if there are any questions. ICa Whole Blood 1.12 (L) 1.15 - 1.33 mmol/L [facility] Comment: Note: ??Total bilirubin higher than 20 m g/dL may lead to falsely low ionized calcium. CL Whole Blood 107 98 - 107 mmol/L [facility] Gluc Whole Bld 149 65 - 199 mg/dL [facility] Comment: Diabetes: >=200 mg/dL plus symp toms. Lactate WB 1.9 0.5 - 2.2 mmol/L [facility] FIO2 Art 50 % [facility] PF Ratio Art 152 [facility] Specimen Anatomical Collection Method Collection Time Receive d Time (Source) Location / / Volume Laterality Blood 01/22/2022 1:10 PM 1:10 EST PM EST Danny Jewell MD CHEMISTRY ORDERABLES Performing Organization Address City/[facility]/ZIP Code Phon e Number [address] (ABNORMAL) Coox2 (01/22/2022 12:34 PM EST) Analysis Performed At Patho logist Time Signature pO2 Coox 32 mmHg [facility] Hgb Blood Gas 11.3 (L) 13.7 - [facility] 16.5 g/dL [facility] O2HB Coox 63.4 % [facility] COHB Coox 0.3 % [facility] Comment: Nonsmokers: 0.5-1.5% COHB Smokers: Variable, but usually less than 10% Toxic: 20-30% COHB Lethal: Greater than 60% COHB METHB Coox 0.7 <=1.5 % [facility] Source Coox Mixed Venous [facility] Specimen Anatomical Collection Method Collection Time Receive d Time (Source) Location / / Volume Laterality Blood 01/22/2022 12:34 01/22/2022 PM EST 12:34 PM EST Danny Jewell MD CHEMISTRY ORDERABLES Performing Organization Address City/State/ZIP [place] [address] [facility] LABORATORY Drive POCT Glucose (01/22/2022 11:02 AM EST) P athologist Signature POC Glucose 176 65 - 199 [facility] mg/dL [facility] Comment: Supplemental ranges: <140 mg/dL before meals <180 mg/dL all other times of the day Specimen Anatomical Collection Method Collection Time Receive d Time (Source) Location / / Volume Laterality Blood 01/22/2022 11:02 01/22/2022 AM EST 11:02 AM EST Danny Jewell MD POINT OF CARE TEST ORDERABLE S Performing Organization Address City/State/[place] [address] (ABNORMAL) POCT Glucose (01/22/2022 9:22 AM EST) P athologist Signature POC Glucose 257 (H) 65 - 199 [facility] mg/dL [facility] Comment: Supplemental ranges: <140 mg/dL before meals <180 mg/dL all other times of the day Specimen Anatomical Collection Method Collection Time Receive d Time (Source) Location / / Volume Laterality Blood 01/22/2022 9:22 AM 2 9:22 EST AM EST Danny Jewell MD POINT OF CARE TEST ORDERABLE S Performing Organization Address City/State/[place] [address] (ABNORMAL) POCT Glucose (01/22/2022 7:53 AM EST) athologist Signature POC Glucose 237 (H) 65 - [address] [facility] Comment: Supplemental ranges: <140 mg/dL before meals <180 mg/dL all other times of the day Specimen Anatomical Collection Method Collection Time Receive d Time (Source) Location / / Volume Laterality Blood 01/22/2022 7:53 AM 2 7:53 EST AM EST Danny Jewell MD POINT OF CARE TEST ORDERABLE S Performing Organization Address City/State/[place] [address] (ABNORMAL) BLOOD GAS 2 ARTERIAL (01/22/2022 6:35 AM EST) Analysis Performed At Patho logist Time Signature pH Art 7.30 (L) 7.35 - [facility] 7.45 [facility] pCO2 Art 38 35 - 45 [facility] LABORATORY pO2 Art 79 (L) 85 - 104 [facility] LABORATORY HCO3 Art 18.0 (L) 20.0 - [facility] 26.0 [facility] mmol/L HOSPITAL LABORATORY BE Art -8.5 (L) -3.0 - 3.0 [facility] mmol/L [facility] Hgb Blood Gas 11.4 (L) 13.7 - [facility] 16.5 g/dL [facility] O2HB Art 92.8 (L) 94.0 - [facility] 97.0 % [facility] COHB Art 0.3 % [facility] Comment: Nonsmokers: 0.5-1.5% COHB Smokers: Variable, but usually less than 10% Toxic: 20-30% COHB Lethal: Greater than 60% COHB METHB Art 0.7 <=1.5 % [facility] Na Whole Blood 134 (L) 135 - 145 mmol/L [facility] K Whole Blood 3.9 3.5 - 5.0 mmol/L [facility] Comment: Please note: Patients with WBC >100,000 may have falsely elevated Potassium levels. Contact the Clinical Chemistry L aboratory if there are any questions. ICa Whole Blood 1.17 1.15 - 1.33 mmol/L [facility] Comment: Note: ??Total bilirubin higher than 20 m g/dL may lead to falsely low ionized calcium. CL Whole Blood 106 98 - 107 mmol/L [facility] Gluc Whole Bld 233 (H) 65 - 199 mg/dL [facility] Comment: Diabetes: >=200 mg/dL plus symp toms. Lactate WB 3.2 (H) 0.5 - 2.2 mmol/L [facility] FIO2 Art 50 % [facility] PF Ratio Art 158 [facility] Specimen Anatomical Collection Method Collection Time Receive d Time (Source) Location / / Volume Laterality Blood 01/22/2022 6:35 AM 6:35 EST AM EST Danny Jewell MD CHEMISTRY ORDERABLES Performing Organization Address City/State/[place] [address] IgA (01/22/2022 6:35 AM EST) P athologist Signature IgA 109 70 - 400 [facility] mg/dL [facility] Specimen Anatomical Collection Method Collection Time Receive d Time (Source) Location / / Volume Laterality Blood 01/22/2022 6:35 AM 2 6:44 EST AM EST Resulting Agency Comment Spec In Lab Danny Jewell MD IMMUNOLOGY ORDERABLES Performing Organization Address City/State/[place] [address] (ABNORMAL) POCT Glucose (01/22/2022 5:48 AM EST) athologist Signature POC Glucose 271 (H) 65 - [address] [facility] Comment: Supplemental ranges: <140 mg/dL before meals <180 mg/dL all other times of the day Specimen Anatomical Collection Method Collection Time Receive d Time (Source) Location / / Volume Laterality Blood 01/22/2022 5:48 AM 2 5:48 EST AM EST Danny Jewell MD POINT OF CARE TEST ORDERABLE S Performing Organization Address City/State/[place] [address] (ABNORMAL) POCT Glucose (01/22/2022 4:41 AM EST) athologist Signature POC Glucose 249 (H) 65 - 199 [facility] mg/dL [facility] Comment: Supplemental ranges: <140 mg/dL before meals <180 mg/dL all other times of the day Specimen Anatomical Collection Method Collection Time Receive d Time (Source) Location / / Volume Laterality Blood 01/22/2022 4:41 AM 2 4:41 EST AM EST Danny Jewell MD POINT OF CARE TEST ORDERABLE S Performing Organization Address City/State/[place] [address] COVID-19 PCR (01/22/2022 2:45 AM EST) [facility] gist Method Time Signature SARS-CoV-2 Not Detected Not Detected GABRIELLE RNA PCR [facility] Comment: This result should be interpreted in com bination with the clinical observations, patient history and epidem iological information. For testing of asymptomatic individuals, assay performa nce characteristics and clinical utility have not been evaluated. Testing for SARS-CoV-2 (Severe acute respiratory syndrome coronavirus 2, form erly known as 2019 novel coronavirus or 2019-nCoV) to aid in the diagnosis of CO VID-19 is performed using the Simplexa COVID-19 Direct Assay by LeadGeniusneha alvarez as authorized by the FDA issued Emergency Use Authorization (EUA). This assay is intended for In-vitro Diagnostic (IVD) use with nasopharyngeal swabs collected from individuals meeting the CDC criteria for testing. e assay is performed based on the instructions for use and additional guid ance provided by the FDA. Testing is performed in the Microbiology Laboratory within the Department of Pathology and Laboratory Medicine at [facility], certified under the Clinical Laboratory Improvement Amendmen ts of 1988 (CLIA), 42 U.S.C. section 263a, to perform high complexity tests. Assay performance has been verified according to clinical laboratory regulat ory requirements. Test results are provided above. A resul t of Not Detected indicates that the viral RNA target is not present but does not preclude SARS-CoV-2 infection. False negative results may occur if a sp ecimen is improperly collected, transported or handled; if amplification inhibitors are present; or if inadequate numbers of viral particles ar e present in the specimen. A result of Detected suggests a current or recent infection and the patient is presumed to be infected. Positive and negative pr edictive values for this test are highly dependent on disease prevalence. A result of Invalid indicates the inability to conclusively determine the presence or absence of SARS-CoV-2 RNA in the sample which can be due to a vari ety of factors. Recollection is recommended in the case of an invalid re sult. CDC COVID-19 criteria for testing on hum an specimens and clinical management guidance information are available at e CDC Coronavirus Disease 2019 (COVID-19) webpage under Information fo r Healthcare Professionals (https://www.cdc.gov/coronavirus/2019-nc ov/hcp/index.html). Additional information about this and ot her EUA tests can be found in provider and patient fact sheets at the following FDA website: https://www.fda.gov/medical-devices/jjcbknoqdzi-xbwyhbk-4930-xcvtd-92-vhniviaat- kni-sbsmlzekrevkhp-nvojgsp-devices/shghj-zdvifaqxtzf-wjvq SARS-CoV-2 Source [place] Swab [facility] Specimen (Source) Anatomical Collection Method Collection Time Re ceived Time Location / / Volume Laterality Nasopharyngeal Swab 01/22/2022 2:45 01/22 AM EST 3:50 AM EST Comment: Symptoms->Surveillance Resulting Agency Comment Spec In Lab Danny Jewell MD MICROBIOLOGY - GENERAL ORDER CATHY Performing Organization Address City/State/[place] [address] (ABNORMAL) Coox2 (01/22/2022 2:16 AM EST) Analysis Performed At Patho logist Time Signature pO2 Coox 33 mmHg [facility] Hgb Blood Gas 12.1 (L) 13.7 - [facility] 16.5 g/dL [facility] O2HB Coox 61.5 % [facility] COHB Coox 0.4 % [facility] Comment: Nonsmokers: 0.5-1.5% COHB Smokers: Variable, but usually less than 10% Toxic: 20-30% COHB Lethal: Greater than 60% COHB METHB Coox 0.8 <=1.5 % [facility] Source Coox Mixed Venous [facility] Specimen Anatomical Collection Method Collection Time Receive d Time (Source) Location / / Volume Laterality Blood 01/22/2022 2:16 AM 2:16 EST AM EST Danny Jewell MD CHEMISTRY ORDERABLES Performing Organization Address City/[facility]/[place] [address] (ABNORMAL) BLOOD GAS 2 ARTERIAL (01/22/2022 2:12 AM EST) Analysis Performed At Patho logist Time Signature pH Art 7.31 (L) 7.35 - [facility] 7.45 [facility] pCO2 Art 38 35 - 45 [facility] mmHg [facility] pO2 Art 85 85 - 104 [facility] LABORATORY HCO3 Art 18.7 (L) 20.0 - [facility] 26.0 [facility] mmol/[facility] LABORATORY BE Art -7.6 (L) -3.0 - 3.0 [facility] mmol/L [facility] Hgb Blood Gas 11.5 (L) 13.7 - [facility] 16.5 g/dL [facility] O2HB Art 93.9 (L) 94.0 - [facility] 97.0 % [facility] COHB Art 0.3 % [facility] Comment: Nonsmokers: 0.5-1.5% COHB Smokers: Variable, but usually less than 10% Toxic: 20-30% COHB Lethal: Greater than 60% COHB METHB Art 0.8 <=1.5 % [facility] Na Whole Blood 134 (L) 135 - 145 mmol/L [facility] K Whole Blood 4.4 3.5 - 5.0 mmol/L [facility] Comment: Please note: Patients with WBC >100,000 may have falsely elevated Potassium levels. Contact the Clinical Chemistry L aboratory if there are any questions. ICa Whole Blood 1.16 1.15 - 1.33 mmol/L [facility] Comment: Note: ??Total bilirubin higher than 20 m g/dL may lead to falsely low ionized calcium. CL Whole Blood 108 (H) 98 - 107 mmol/L [facility] Gluc Whole Bld 266 (H) 65 - 199 mg/dL [facility] Comment: Diabetes: >=200 mg/dL plus symp toms. Lactate WB 2.9 (H) 0.5 - 2.2 mmol/L [facility] FIO2 Art 50 % [facility] PF Ratio Art 170 [facility] Specimen Anatomical Collection Method Collection Time Receive d Time (Source) Location / / Volume Laterality Blood 01/22/2022 2:12 AM 2 2:12 EST AM EST Danny Jewell MD CHEMISTRY ORDERABLES Performing Organization Address City/State/[place] [address] (ABNORMAL) Differential, Automated (01/22/2022 2:00 AM EST) [facility] Method Time Signature Neutrophils % 90.1 % [facility] Neutr Abs (ANC) 16.17 (H) 1.70 - [facility] 6.10 [facility] x10(3)/[facility] LABORATORY Lymphocytes % 4.9 % [facility] Lymphocytes Abs 0.9 0.9 - 3.2 [facility] x10(3)/[facility] LABORATORY Monocytes % 4.0 % [facility] Monocyte Abs 0.7 0.3 - 0.9 [facility] x10(3)/[facility] LABORATORY Eosinophils % 0.1 % [facility] Eosinophils Abs 0.0 0.0 - 0.4 [facility] x10(3)/[facility] LABORATORY Basophils % 0.4 % [facility] Basophils Abs 0.1 0.0 - 0.1 [facility] x10(3)/[facility] LABORATORY Immature Gran % 0.50 % [facility] Comment: Immature granulocytes(IG's)percentage an d absolute count will include metamyelocytes, myelocytes, and promyelo cytes. Blood smears from CBCs yielding IG's will be scanned manually for concor dance. If this scan disagrees with the automated IG or if promyelocytes are not ed, a manual differential will be performed. Nikole Gran Abs 0.09 (H) 0.00 - 0.04 x10(3)/[facility] LABORATORY Specimen Anatomical Collection Method Collection Time Receive d Time (Source) Location / / Volume Laterality Blood 01/22/2022 2:00 AM 2:16 EST AM EST Resulting Agency Comment Spec In Lab [facility] HEMATOLOGY ORDERABLES Performing Organization Address City/State/[place] [address] (ABNORMAL) Hemogram (01/22/2022 2:00 AM EST) Patholo gist Method Time Signature WBC 17.9 (H) 4.0 - 9.[address] [facility] x[facility](3)/[facility] LABORATORY RBC 3.70 (L) 4.58 [facility] 5.54 [facility] x10(6)/[facility] LABORATORY Hemoglobin 11.7 (L) 13.7 - [facility] 16.5 g/dL [facility] Hematocrit 32.9 (L) 40.5 - [facility] 48.5 % [facility] MCV 88.9 82.9 [facility] 93.1 [facility] LABORATORY MCH 31.6 27.5 - [facility] 32.1 pg [facility] MCHC 35.6 32.0 - [facility] g/dL [facility] Platelets 235 145 - 357 [facility] x10(3)/[facility] LABORATORY RDWSD 41.9 36.[address] [facility] 45.0 [facility] LABORATORY RDWCV 13.0 11.4 - [facility] 13.8 % [facility] MPV 10.0 7.6 - 12.[address] nRBC % Auto 0.1 % [facility] nRBC Abs Auto 0.020 (H) 0.000 - [facility] 0.000 [facility] x10(3)/[facility] LABORATORY Specimen Anatomical Collection Method Collection Time Receive d Time (Source) Location / / Volume Laterality Blood 01/22/2022 2:00 AM 2:16 EST AM EST Resulting Agency Comment Spec In Lab [facility] HEMATOLOGY ORDERABLES Performing Organization Address City/State/[place] [address] (ABNORMAL) Basic Metabolic Panel (non-fasting) (01/22/2022 2:00 AM EST) P athologist Signature Glucose Lvl 293 (H) 65 - [address] [facility] mg/dL [facility] Comment: Diabetes: >=200 mg/dL plus symp toms BUN 20 10 - 20 mg/dL [facility] Creatinine 1.63 (H) 0.80 - 1.50 mg/dL [facility] Sodium 137 135 - 145 mmol/L [facility] Potassium 4.9 3.5 - 5.0 mmol/L [facility] Comment: Please note: ??Patients with WBC >100,00 0 may have falsely elevated Potassium levels. ??For accurate Potassium quantif ication in these patients send serum separator tube (gold top) for subsequent determinations. ??Contact the Clinical Chemistry Laboratory if there are any qu estions. Chloride 106 98 - 107 mmol/L [facility] CO2 19 (L) 22 - 31 mmol/L [facility] Anion Gap 12 5 - 15 mmol/L [facility] Calcium 8.2 (L) 8.5 - 10.5 mg/dL [facility] Estimated GFR 43 (L) >=60 mL/min/1.73 m?? [facility] Comment: This patient? s estimated glomerular filtration rate (eGFR) is between 43 mL/min/1.73 m2 (patients with less muscl e mass per kg body weight) and 50 mL/min/1.73 m2 (patients with more muscl e mass per kg body weight) as determined by the CKD-EPI equation. Asse ssment of eGFR is not appropriate when creatinine concentrations are rapidly ch anging. For clinical decisions where creatinine clearance will affect therapy , a 24-hour urine creatinine clearance may be advised. Assignment of CKD stage 1 - 5 for patien ts with an eGFR near the transition point between stages may be based on cli nical assessment of muscle mass and symptoms in addition to eGFR. Specimen Anatomical Collection Method Collection Time Receive d Time (Source) Location / / Volume Laterality Blood 01/22/2022 2:00 AM 2:16 EST AM EST Resulting Agency Comment Spec In Lab Danny Jewell MD CHEMISTRY ORDERABLES Performing Organization Address City/State/Z[place] [address] (ABNORMAL) Troponin (01/22/2022 2:00 AM EST) athologist Signature Troponin-T 1.07 (H) 0.00 - [facility] GRANA[facility] 0.00 ng/mL [facility] Comment: The 99th percentile for Troponin T is le ss than 0.01 ng/mL, any detectable cTnT concentration using this assay should be considered elevated. According to the third universal definit ion of myocardial infarction the following criteria with a clinical prese ntation consistent with acute myocardial ischemia meets the diagnosis for a myocardial infarction (IA). Detection of a rise and/or fall of cTnT, with at least one value greater than the 99th percentile (> or = 0.01) and wi th at least one of the following ?? Symptoms of ischemia ?? New or presumed new significant ST-se gment-T wave (ST-T) changes or new left bundle branch block (LBBB) ?? Development of pathologic Q waves in the ECG ?? Imaging evidence of new loss of viabl e myocardium or new regional wall motion abnormality ?? Identification of an intracoronary th rombus by angiography or autopsy Samples for cTnT testing should be obtai marilynn serially upon first assessment and again 3 to 6 hours later. If the clinica l suspicion is high and previous samples have been negative an additional sample may be indicated. Reference: Third [place] Definition of Myocardial Infarction. Journal of the [place] [employer] 2012;60:1581-98 Specimen Anatomical Collection Method Collection Time Receive d Time (Source) Location / / Volume Laterality Blood 01/22/2022 2:00 AM 2 2:16 EST AM EST Resulting Agency Comment Spec In Lab Danny Jewell MD CHEMISTRY ORDERABLES Performing Organization Address City/State/ZIP Code Phon e Number [facility] [place] [address] (ABNORMAL) POCT Glucose (01/22/2022 1:20 AM EST) athologist Signature POC Glucose 239 (H) 65 - 199 [facility] mg/dL [facility] Comment: Supplemental ranges: <140 mg/dL before meals <180 mg/dL all other times of the day Specimen Anatomical Collection Method Collection Time Receive d Time (Source) Location / / Volume Laterality Blood 01/22/2022 1:20 AM 2 1:20 EST AM EST Danny Jewell MD POINT OF CARE TEST ORDERABLE S Performing Organization Address City/[facility]/[place] [address] (ABNORMAL) POCT Glucose (01/21/2022 11:54 PM EST) P athologist Signature POC Glucose 224 (H) 65 - 199 [facility] mg/dL [facility] Comment: Supplemental ranges: <140 mg/dL before meals <180 mg/dL all other times of the day Specimen Anatomical Collection Method Collection Time Receive d Time (Source) Location / / Volume Laterality Blood 01/21/2022 11:54 01/21/2022 PM EST 11:54 PM EST Danny Jewell MD POINT OF CARE TEST ORDERABLE S Performing Organization Address City/[facility]/[place] [address] (ABNORMAL) Coox2 (01/21/2022 10:38 PM EST) Analysis Performed At Patho logist Time Signature pO2 Coox 32 mmHg [facility] Hgb Blood Gas 12.9 (L) 13.7 - [facility] 16.5 g/dL [facility] O2HB Coox 61.0 % [facility] COHB Coox 0.3 % [facility] Comment: Nonsmokers: 0.5-1.5% COHB Smokers: Variable, but usually less than 10% Toxic: 20-30% COHB Lethal: Greater than 60% COHB METHB Coox 0.7 <=1.5 % [facility] Source Coox Mixed Venous [facility] Specimen Anatomical Collection Method Collection Time Receive d Time (Source) Location / / Volume Laterality Blood 01/21/2022 10:38 01/21/2022 PM EST 10:38 PM EST Danny Jewell MD CHEMISTRY ORDERABLES Performing Organization Address City/[facility]/[place] [address] (ABNORMAL) POCT Glucose (01/21/2022 10:01 PM EST) P athologist Signature POC Glucose 205 (H) 65 - [address] [facility] mg/dL [facility] Comment: Supplemental ranges: <140 mg/dL before meals <180 mg/dL all other times of the day Specimen Anatomical Collection Method Collection Time Receive d Time (Source) Location / / Volume Laterality Blood 01/21/2022 10:01 01/21/2022 PM EST 10:01 PM EST Danny Jewell MD POINT OF CARE TEST ORDERABLE S Performing Organization Address City/[facility]/[place] [address] (ABNORMAL) Potassium (01/21/2022 10:00 PM EST) P athologist Signature Potassium 5.1 (H) 3.5 - 5.0 [facility] mmol/L [facility] Comment: result rechecked-KT Please note: ??Patients with WBC >100,00 0 may have falsely elevated Potassium levels. ??For accurate Potassium quantif ication in these patients send serum separator tube (gold top) for subsequent determinations. ??Contact the Clinical Chemistry Laboratory if there are any qu estions. Specimen Anatomical Collection Method Collection Time Receive d Time (Source) Location / / Volume Laterality Blood 01/21/2022 10:00 01/21/2022 PM EST 10:06 PM EST Resulting Agency Comment Spec In Lab Danny Jewell MD CHEMISTRY ORDERABLES Performing Organization Address City/[facility]/[place] [address] (ABNORMAL) BLOOD GAS 2 ARTERIAL (01/21/2022 9:59 PM EST) Analysis Performed At Patho logist Time Signature pH Art 7.30 (L) 7.35 - [facility] 7.45 [facility] pCO2 Art 35 35 - 45 [facility] LABORATORY pO2 Art 83 (L) 85 - 104 [facility] LABORATORY HCO3 Art 17.1 (L) 20.0 - [facility] 26.0 [facility] mmol/L [facility] LABORATORY BE Art -9.3 (L) -3.0 - 3.0 [facility] mmol/L [facility] Hgb Blood Gas 12.8 (L) 13.7 - [facility] 16.5 g/dL [facility] O2HB Art 93.7 (L) 94.0 - [facility] 97.0 % [facility] COHB Art 0.3 % [facility] Comment: Nonsmokers: 0.5-1.5% COHB Smokers: Variable, but usually less than 10% Toxic: 20-30% COHB Lethal: Greater than 60% COHB METHB Art 0.7 <=1.5 % [facility] Na Whole Blood 132 (L) 135 - 145 mmol/L [facility] K Whole Blood 4.9 3.5 - 5.0 mmol/L [facility] Comment: Please note: Patients with WBC >100,000 may have falsely elevated Potassium levels. Contact the Clinical Chemistry L aboratory if there are any questions. ICa Whole Blood 1.22 1.15 - 1.33 mmol/L [facility] Comment: Note: ??Total bilirubin higher than 20 m g/dL may lead to falsely low ionized calcium. CL Whole Blood 108 (H) 98 - 107 mmol/L [facility] Gluc Whole Bld 212 (H) 65 - 199 mg/dL [facility] Comment: Diabetes: >=200 mg/dL plus symp toms. Lactate WB 2.2 0.5 - 2.2 mmol/L [facility] FIO2 Art 50 % [facility] PF Ratio Art 166 [facility]ORY Specimen Anatomical Collection Method Collection Time Receive d Time (Source) Location / / Volume Laterality Blood 01/21/2022 9:59 PM 9:59 EST PM EST Danny Jewell MD CHEMISTRY ORDERABLES Performing Organization Address City/State/[place] [address] (ABNORMAL) POCT Glucose (01/21/2022 9:04 PM EST) athologist Signature POC Glucose 208 (H) 65 - 199 GABRIELLE LOY mg/dL [facility] Comment: Supplemental ranges: <140 mg/dL before meals <180 mg/dL all other times of the day Specimen Anatomical Collection Method Collection Time Receive d Time (Source) Location / / Volume Laterality Blood 01/21/2022 9:04 PM 2 9:04 EST PM EST Danny Jewell MD POINT OF CARE TEST ORDERABLE S Performing Organization Address City/State/[place] [address] POCT Glucose (01/21/2022 8:09 PM EST) athologist Signature POC Glucose 183 65 - 199 [place]LE [place] mg/dL [facility] Comment: Supplemental ranges: <140 mg/dL before meals <180 mg/dL all other times of the day Specimen Anatomical Collection Method Collection Time Receive d Time (Source) Location / / Volume Laterality Blood 01/21/2022 8:09 PM 2 8:09 EST PM EST Danny Jewell MD POINT OF CARE TEST ORDERABLE S Performing Organization Address City/State/ZIP Code Phon e Number [address] POCT Glucose (01/21/2022 7:06 PM EST) athologist Signature POC Glucose 183 65 - 199 [place]RI[place]LE [place] mg/dL [facility] Comment: Supplemental ranges: <140 mg/dL before meals <180 mg/dL all other times of the day Specimen Anatomical Collection Method Collection Time Receive d Time (Source) Location / / Volume Laterality Blood 01/21/2022 7:06 PM 2 7:06 EST PM EST Danny Jewell MD POINT OF CARE TEST ORDERABLE S Performing Organization Address City/State/ZIP Code Phon e Number [address] POCT Glucose (01/21/2022 6:00 PM EST) athologist Signature POC Glucose 155 65 - 199 [place]LE [place] mg/dL [facility] Comment: Supplemental ranges: <140 mg/dL before meals <180 mg/dL all other times of the day Specimen Anatomical Collection Method Collection Time Receive d Time (Source) Location / / Volume Laterality Blood 01/21/2022 6:00 PM 2 6:00 EST PM EST Danny Jewell MD POINT OF CARE TEST ORDERABLE S Performing Organization Address City/State/[place] [address] POCT Glucose (01/21/2022 5:06 PM EST) P athologist Signature POC Glucose 149 65 - 199 [facility] mg/dL [facility] Comment: Supplemental ranges: <140 mg/dL before meals <180 mg/dL all other times of the day Specimen Anatomical Collection Method Collection Time Receive d Time (Source) Location / / Volume Laterality Blood 01/21/2022 5:06 PM 2 5:06 EST PM EST Danny Jewell MD POINT OF CARE TEST ORDERABLE S Performing Organization Address City/State/[place] [address] (ABNORMAL) BLOOD GAS 2 ARTERIAL (01/21/2022 4:29 PM EST) Analysis Performed At Patho logist Time Signature pH Art 7.36 7.35 - [facility] 7.45 [facility] pCO2 Art 35 35 - 45 [facility] mmHg [facility] pO2 Art 70 (L) 85 - 104 [facility] mmHg [facility] HCO3 Art 19.3 (L) 20.0 - [facility] 26.0 [facility] mmol/L [facility] BE Art -6.0 (L) -3.0 - 3.0 [facility] mmol/L [facility] Hgb Blood Gas 12.3 (L) 13.7 - [facility] 16.5 g/dL [facility] O2HB Art 91.2 (L) 94.0 - [facility] 97.0 % [facility] COHB Art 0.3 % [facility] Comment: Nonsmokers: 0.5-1.5% COHB Smokers: Variable, but usually less than 10% Toxic: 20-30% COHB Lethal: Greater than 60% COHB METHB Art 0.7 <=1.5 % [facility] Na Whole Blood 135 135 - 145 mmol/L [facility] K Whole Blood 4.7 3.5 - 5.0 mmol/L [facility] Comment: Please note: Patients with WBC >100,000 may have falsely elevated Potassium levels. Contact the Clinical Chemistry L aboratory if there are any questions. ICa Whole Blood 1.24 1.15 - 1.33 mmol/L [facility] Comment: Note: ??Total bilirubin higher than 20 m g/dL may lead to falsely low ionized calcium. CL Whole Blood 110 (H) 98 - 107 mmol/L [facility] Gluc Whole Bld 173 65 - 199 mg/dL [facility] Comment: Diabetes: >=200 mg/dL plus symp toms. Lactate WB 1.4 0.5 - 2.2 mmol/L [facility] FIO2 Art 40 % [facility] PF Ratio Art 175 [facility] Specimen Anatomical Collection Method Collection Time Receive d Time (Source) Location / / Volume Laterality Blood 01/21/2022 4:29 PM 4:29 EST PM EST Danny Jewell MD CHEMISTRY ORDERABLES Performing Organization Address City/State/[place] [address] (ABNORMAL) Coox2 (01/21/2022 4:07 PM EST) Analysis Performed At Patho logist Time Signature pO2 Coox 24 mmHg [facility] Hgb Blood Gas 11.9 (L) 13.7 - [facility] 16.5 g/dL [facility] O2HB Coox 43.9 % [facility] COHB Coox 0.7 % [facility] Comment: Nonsmokers: 0.5-1.5% COHB Smokers: Variable, but usually less than 10% Toxic: 20-30% COHB Lethal: Greater than 60% COHB METHB Coox 0.5 <=1.5 % [facility] Source Coox Mixed Venous [facility] Specimen Anatomical Collection Method Collection Time Receive d Time (Source) Location / / Volume Laterality Blood 01/21/2022 4:07 PM 2 4:07 EST PM EST Danny Jewell MD CHEMISTRY ORDERABLES Performing Organization Address City/[facility]/ZIP Code Phon e Number [address] POCT Glucose (01/21/2022 4:02 PM EST) athologist Signature POC Glucose 190 65 - 199 [facility] mg/dL [facility] Comment: Supplemental ranges: <140 mg/dL before meals <180 mg/dL all other times of the day Specimen Anatomical Collection Method Collection Time Receive d Time (Source) Location / / Volume Laterality Blood 01/21/2022 4:02 PM 2 4:02 EST PM EST Danny Jewell MD POINT OF CARE TEST ORDERABLE S Performing Organization Address City/[facility]/[place] [address] (ABNORMAL) Hemoglobin (01/21/2022 2:40 PM EST) athologist Signature Hemoglobin 11.9 (L) 13.7 [facility] g/dL [facility] Specimen Anatomical Collection Method Collection Time Receive d Time (Source) Location / / Volume Laterality Blood 01/21/2022 2:40 PM 2 2:55 EST PM EST Resulting Agency Comment Spec In Lab Danny Jewell MD HEMATOLOGY ORDERABLES Performing Organization Address City/[facility]/ZIP Code Phon e Number [address] Potassium (01/21/2022 2:40 PM EST) athologist Signature Potassium 4.0 3.5 - 5.0 [facility] mmol/L [facility] Comment: Please note: ??Patients with WBC >100,00 0 may have falsely elevated Potassium levels. ??For accurate Potassium quantif ication in these patients send serum separator tube (gold top) for subsequent determinations. ??Contact the Clinical Chemistry Laboratory if there are any qu estions. Specimen Anatomical Collection Method Collection Time Receive d Time (Source) Location / / Volume Laterality Blood 01/21/2022 2:40 PM 2 2:55 EST PM EST Resulting Agency Comment Spec In Lab Danny Jewell MD CHEMISTRY ORDERABLES Performing Organization Address City/State/[place] [address] (ABNORMAL) BLOOD GAS 2 ARTERIAL (01/21/2022 2:25 PM EST) athologist Signature pH Art 7.28 7.35 - [facility] (Critical) 7.45 [facility] Comment: Noted by instrument and control technician. pCO2 Art 41 35 - 45 mmHg [facility] LAB[facility]ORY pO2 Art 218 (H) 85 - 104 mmHg [facility] LABOR[facility]ORY HCO3 Art 18.6 (L) 20.0 - 26.0 mmol/L [facility] BE Art -8.2 (L) -3.0 - 3.0 mmol/L [facility] Hgb Blood Gas 11.9 (L) 13.7 - 16.5 g/dL [facility] O2HB Art 97.6 (H) 94.0 - 97.0 % [facility]ORY COHB Art 0.3 % [facility] Comment: Nonsmokers: 0.5-1.5% COHB Smokers: Variable, but usually less than 10% Toxic: 20-30% COHB Lethal: Greater than 60% COHB METHB Art 0.7 <=1.5 % [facility] Na Whole Blood 135 135 - 145 mmol/L [facility] K Whole Blood 3.2 (L) 3.5 - 5.0 mmol/L [facility] Comment: Please note: Patients with WBC >100,000 may have falsely elevated Potassium levels. Contact the Clinical Chemistry L aboratory if there are any questions. ICa Whole Blood 1.26 1.15 - 1.33 mmol/L [facility] Comment: Note: ??Total bilirubin higher than 20 m g/dL may lead to falsely low ionized calcium. CL Whole Blood 113 (H) 98 - 107 mmol/L [facility] Gluc Whole Bld 140 65 - 199 mg/dL [facility] Comment: Diabetes: >=200 mg/dL plus symp toms. Lactate WB 1.3 0.5 - 2.2 mmol/L [facility] FIO2 Art 100 % [facility] PF Ratio Art 218 [facility]ORY Specimen Anatomical Collection Method Collection Time Receive d Time (Source) Location / / Volume Laterality Blood 01/21/2022 2:25 PM 2 2:25 EST PM EST Danny Jewell MD CHEMISTRY ORDERABLES Performing Organization Address City/[facility]/[place] [address] (ABNORMAL) Tryptase (01/21/2022 1:47 PM EST) P athologist Signature Tryptase 12.5 (H) <=8.4 ng/mL [facility] Comment: Total tryptase concentrations that are p ersistently greater than 20 ng/mL may be consistent with systemic mastocytosis . Specimen Anatomical Collection Method Collection Time Receive d Time (Source) Location / / Volume Laterality Blood 01/21/2022 1:47 PM 2 7:40 EST AM EST Resulting Agency Comment Spec In Lab Danny Jewell MD CHEMISTRY ORDERABLES Performing Organization Address City/State/[place] [address] (ABNORMAL) BLOOD GAS 2 ARTERIAL (01/21/2022 1:35 PM EST) Analysis Performed At Patho logist Time Signature pH Art 7.31 (L) 7.35 - [facility] 7.45 [facility] pCO2 Art 44 35 - 45 [facility] LABORATORY pO2 Art 65 (L) 85 - 104 [facility] LABORATORY HCO3 Art 21.9 20.0 - [facility] 26.0 [facility] mmol/[facility] LABORATORY BE Art -4.4 (L) -3.0 - 3.0 [facility] mmol/L [facility] Hgb Blood Gas 10.9 (L) 13.7 - [facility] 16.5 g/dL [facility] O2HB Art 88.4 (L) 94.0 - [facility] 97.0 % [facility] COHB Art 0.3 % [facility] Comment: Nonsmokers: 0.5-1.5% COHB Smokers: Variable, but usually less than 10% Toxic: 20-30% COHB Lethal: Greater than 60% COHB METHB Art 0.7 <=1.5 % [facility] Na Whole Blood 136 135 - 145 mmol/L [facility] K Whole Blood 4.5 3.5 - 5.0 mmol/L [facility] Comment: Please note: Patients with WBC >100,000 may have falsely elevated Potassium levels. Contact the Clinical Chemistry L aboratory if there are any questions. ICa Whole Blood 1.18 1.15 - 1.33 mmol/L [facility] Comment: Note: ??Total bilirubin higher than 20 m g/dL may lead to falsely low ionized calcium. CL Whole Blood 110 (H) 98 - 107 mmol/L [facility] Gluc Whole Bld 150 65 - 199 mg/dL [facility] Comment: Diabetes: >=200 mg/dL plus symp toms. Lactate WB 1.1 0.5 - 2.2 mmol/L [facility] FIO2 Art 100 % [facility] PF Ratio Art 65 [facility] Specimen Anatomical Collection Method Collection Time Receive d Time (Source) Location / / Volume Laterality Blood 01/21/2022 1:35 PM 1:35 EST PM EST Danny Jewell MD CHEMISTRY ORDERABLES Performing Organization Address City/State/ZIP Code Phon e Number [place] [id number] XR Chest One View (01/21/2022 12:54 PM EST) Anatomical Region Laterality Modality Chest N/A Digital Radiography Specimen (Source) Anatomical Location Collection Method / Collectio n Time Received Time / Laterality Volume Impressions 01/21/2022 1:00 PM EST Multiple support lines and tubes as described above. Probable subsegmental hypoventilatory atelectasis. No pneumoth orax. No large volume pleural fluid collection. Thank you for letting us participate in the care of this patient. ??If you are a health care provider and have any questi ons regarding this report, please contact the number below. ??For patients who have questions please contact the health acute care physical therapist that requested your imaging first. ? Narrative 01/21/2022 1:00 PM EST EXAMINATION: XR CHEST ONE VIEW CLINICAL HISTORY: s/p CABG TECHNIQUE: 1 view of the chest COMPARISON: Chest x-ray 01/17/2022 FINDINGS: Right-sided approach PA catheter in plac e with the tip projecting midline. The patient is intubated with ET tube tip pr ojecting at the thoracic inlet. Pericardial drains are present and there is a left-sided chest tube with the tip projecting the region of the left-sided hilum. Lung volumes are low. The cardiac silhou ette is within normal limits. Streaky opacities are present in each lung base. No large pleural effusion. No pneumothorax. Procedure Note Catrachito Cisneros MD - 01/21/2022Formattin g of this note might be different from the original. EXAMINATION: XR CHEST ONE VIEW CLINICAL HISTORY: s/p CABG TECHNIQUE: 1 view of the chest COMPARISON: Chest x-ray 01/17/2022 FINDINGS: Right-sided approach PA catheter in plac e with the tip projecting midline. The patient is intubated with ET tube tip pr ojecting at the thoracic inlet. Pericardial drains are present and there is a left-sided chest tube with the tip projecting the region of the left-sided hilum. Lung volumes are low. The cardiac silhou ette is within normal limits. Streaky opacities are present in each lung base. No large pleural effusion. No pneumothorax. IMPRESSION Multiple support lines and tubes as desc ribed above. Probable subsegmental hypoventilatory atelectasis. No pneumoth orax. No large volume pleural fluid collection. Thank you for letting us participate in the care of this patient. If you are a health care provider and have any questi ons regarding this report, please contact the number below. For patients w ho have questions please contact the health acute care physical therapist that requested your imaging first. Danny Jewell MD IMG DX ORDERABLES (ABNORMAL) BLOOD GAS 2 ARTERIAL (01/21/2022 12:47 PM EST) Analysis Performed At Patho logist Time Signature pH Art 7.37 7.35 - [facility] 7.45 [facility] pCO2 Art 42 35 - 45 [facility] mmHg [facility] pO2 Art 193 (H) 85 - 104 [facility] mmHg [facility] HCO3 Art 23.5 20.0 - [facility] 26.0 [facility] mmol/L [facility]ATORY BE Art -1.8 -3.0 - 3.0 [facility] mmol/L [facility] Hgb Blood Gas 11.8 (L) 13.7 - [facility] 16.5 g/dL [facility] O2HB Art 97.4 (H) 94.0 - [facility] 97.0 % [facility] COHB Art 0.3 % [facility] Comment: Nonsmokers: 0.5-1.5% COHB Smokers: Variable, but usually less than 10% Toxic: 20-30% COHB Lethal: Greater than 60% COHB METHB Art 0.8 <=1.5 % [facility] Na Whole Blood 135 135 - 145 mmol/L [facility] K Whole Blood 4.2 3.5 - 5.0 mmol/L [facility] Comment: Please note: Patients with WBC >100,000 may have falsely elevated Potassium levels. Contact the Clinical Chemistry L aboratory if there are any questions. ICa Whole Blood 1.12 (L) 1.15 - 1.33 mmol/L [facility] Comment: Note: ??Total bilirubin higher than 20 m g/dL may lead to falsely low ionized calcium. CL Whole Blood 109 (H) 98 - 107 mmol/L [facility] Gluc Whole Bld 150 65 - 199 mg/dL [facility] Comment: Diabetes: >=200 mg/dL plus symp toms. Lactate WB 1.1 0.5 - 2.2 mmol/L [facility] FIO2 Art 100 % [facility] PF Ratio Art 193 [facility] Specimen Anatomical Collection Method Collection Time Receive d Time (Source) Location / / Volume Laterality Blood 01/21/2022 12:47 01/21/2022 PM EST 12:47 PM EST Danny Jewell MD CHEMISTRY ORDERABLES Performing Organization Address City/State/[place] [address] (ABNORMAL) Coox2 (01/21/2022 12:42 PM EST) Analysis Performed At Patho logist Time Signature pO2 Coox 29 mmHg [facility] Hgb Blood Gas 12.0 (L) 13.7 - [facility] 16.5 g/dL [facility] O2HB Coox 53.7 % [facility] COHB Coox 0.6 % [facility] Comment: Nonsmokers: 0.5-1.5% COHB Smokers: Variable, but usually less than 10% Toxic: 20-30% COHB Lethal: Greater than 60% COHB METHB Coox 0.8 <=1.5 % [facility] Source Coox Mixed Venous [facility] Specimen Anatomical Collection Method Collection Time Receive d Time (Source) Location / / Volume Laterality Blood 01/21/2022 12:42 01/21/2022 PM EST 12:42 PM EST Danny Jewell MD CHEMISTRY ORDERABLES Performing Organization Address City/[facility]/ZIP [place] [address] EKG 12 Lead (01/21/2022 12:37 PM EST) Component Value Ref Range Test Analysis Performed Pathologis t Method Time At Signature Ventricular rate 67 BPM MUSE SYSTEM Atrial Rate 67 BPM MUSE SYSTEM P-R Interval 176 ms MUSE SYSTEM QRS Duration 82 ms MUSE SYSTEM Q-T Interval 440 ms MUSE SYSTEM QTC Calculated 464 ms MUSE SYSTEM (Bezet) Calculated P [place] 50 degrees MUSE SYSTEM Calculated R [place] -15 degrees MUSE SYSTEM Calculated T [place] 23 degrees MUSE SYSTEM INTERPRETATION Normal sinus rhythm MUSE SYSTEM possible ??Inferior infarct (cited on or before 25-SEP-2016 ??08:11 Abnormal ECG When compared with ECG of 01-JAN-2022 16:38, No significant change was found I personally reviewed the tracing and edited the fellows int erpretation Confirmed by fellow Brett Tenorio ([id number]) on 01/21/2022 6:4 4:33 PM Confirmed by Ita Peck ([id number]) on 01/21/2022 7:40:27 PM Specimen Anatomical Collection Method Collection Time Receive d Time (Source) Location / / Volume Laterality 01/21/2022 12:37 01/21/2022 7:40 PM EST PM EST Danny Jewell MD ECG ORDERABLES Performing Organization Address City/[facility]/ZIP Code Phon e Number MUSE SYSTEM (ABNORMAL) BLOOD GAS 2 ARTERIAL (01/21/2022 11:37 AM EST) P athologist Signature pH Art 7.39 7.35 - [facility] 7.45 [facility] pCO2 Art 43 35 - 45 [facility] LABORATORY pO2 Art 86 85 - 104 [facility] LABORATORY HCO3 Art 25.0 20.0 - [facility] 26.0 [facility] mmol/L HOSPITAL LABORATORY BE Art 0.0 -3.0 - 3.0 [facility] mmol/L [facility] Hgb Blood Gas 8.5 (L) 13.7 - [facility] 16.5 g/dL [facility] O2HB Art 95.1 94.0 - [facility] 97.0 % [facility] COHB Art 0.1 % [facility] Comment: Nonsmokers: 0.5-1.5% COHB Smokers: Variable, but usually less than 10% Toxic: 20-30% COHB Lethal: Greater than 60% COHB METHB Art 0.3 <=1.5 % [facility] Na Whole Blood 134 (L) 135 - 145 mmol/L [facility] K Whole Blood 5.6 (H) 3.5 - 5.0 mmol/L [facility] Comment: Please note: Patients with WBC >100,000 may have falsely elevated Potassium levels. Contact the Clinical Chemistry L aboratory if there are any questions. ICa Whole Blood 1.15 1.15 - 1.33 mmol/L [facility] Comment: Note: ??Total bilirubin higher than 20 m g/dL may lead to falsely low ionized calcium. CL Whole Blood 106 98 - 107 mmol/L [facility] Gluc Whole Bld 181 65 - 199 mg/dL [facility] Comment: Diabetes: >=200 mg/dL plus symp toms. Lactate WB 1.6 0.5 - 2.2 mmol/L [facility] Specimen Anatomical Collection Method Collection Time Receive d Time (Source) Location / / Volume Laterality Blood 01/21/2022 11:37 01/21/2022 AM EST 11:37 AM EST Danny Jewell MD CHEMISTRY ORDERABLES Performing Organization Address City/State/[place] [address] APTT (01/21/2022 11:30 AM EST) P athologist Signature PTT 31 25 - 37 sec [facility] Comment: OR Result called by ?? SALVLT OR Result s read back by: ? Tete Sanchez at 2022-01-21 12:02:10 The PTT is NOT appropriate for heparin m onitoring. Use the Anti-Xa level for heparin monitoring (HEP UFH) or LMWH mon itoring (HEP LMW). A PTT less than 37 seconds generally indicates adequate hem ostasis. Specimen Anatomical Collection Method Collection Time Receive d Time (Source) Location / / Volume Laterality Blood 01/21/2022 11:30 01/21/2022 AM EST 11:42 AM EST Resulting Agency Comment Spec In Lab Donnie Vasquez MD HEMATOLOGY ORDERABLES Performing Organization Address City/[facility]/[place] [address] (ABNORMAL) Prothrombin Time (01/21/2022 11:30 AM EST) P athologist Signature PT 16.0 (H) 9.4 - 12.5 [facility] Comment: OR Result called by ?? SALVLT OR Result s read back by: ? Tete Sanchez at 2022-01-21 12:02:10 INR 1.4 [facility] Comment: OR Result called by ?? SALVLT OR Result s read back by: ? Tete Sanchez at 2022-01-21 12:02:10 An INR <2.0 indicates adequate procoagul ant activity for hemostasis in most patients without underlying bleeding dis orders, though the INR may not adequately reflect hemostatic capacity i n patients with liver disease and synthetic impairment. The recommended ta rget INR range for therapeutic anticoagulation is 2.0 ? 3.0 for most applications, though lower and higher ranges may be appropriate depending on c linical circumstances. Specimen Anatomical Collection Method Collection Time Receive d Time (Source) Location / / Volume Laterality Blood 01/21/2022 11:30 01/21/2022 AM EST 11:42 AM EST Resulting Agency Comment Spec In Lab Donnie Vasquez MD HEMATOLOGY ORDERABLES Performing Organization Address City/[facility]/[place] [address] (ABNORMAL) Hemogram (01/21/2022 11:30 AM EST) P athologist Signature WBC 4.6 4.0 - 9.5 [facility] x10(3)/[facility] LABORATORY RBC 2.57 (L) 4.58 - [facility] 5.54 [facility] x10(6)/[facility] LABORATORY Hemoglobin 8.1 (L) 13.7 - [facility] 16.5 g/dL [facility] Hematocrit 23.1 (L) 40.5 - [facility] 48.5 % [facility] Comment: This result has been called to JOSE MANUEL KEY by Jim Montesinos on 01 21 2022 at 1147, and has been read back. MCV 89.9 82.9 - 93.1 fL [facility] MCH 31.5 27.5 - 32.1 pg [facility] MCHC 35.1 32.0 - 35.7 g/dL [facility] Platelets 105 (L) 145 - 357 x10(3)/[facility] LABORATORY RDWSD 42.2 36.0 - 45.0 [facility] LABORATORY RDWCV 13.0 11.4 - 13.8 % [facility] MPV 9.6 7.6 - 12.9 [facility] LABORATORY nRBC % Auto 0.0 % [facility] nRBC Abs Auto 0.000 0.000 - 0.000 x10(3)/[facility] LABORATORY Specimen Anatomical Collection Method Collection Time Receive d Time (Source) Location / / Volume Laterality Blood 01/21/2022 11:30 01/21/2022 AM EST 11:42 AM EST Resulting Agency Comment Spec In Lab Donnie Vasquez MD HEMATOLOGY ORDERABLES Performing Organization Address City/State/ZIP [place] [address] Platelet count (01/21/2022 10:50 AM EST) athologist Signature Platelets 148 145 - 357 [facility] x10(3)/[facility] LABORATORY Plat Immature 2.4 0.0 - 7.4 [facility] % % [facility] Comment: Limitation of the Immature Platelet Frac tion (IPF)-May be less reliable when the platelet count is less than 87k414/u L due to statistical imprecision. The IPF value provides an assessment of the Bone Marrow production status. ??It is useful in differentiating Thrombocyto penia caused by platelet destruction/consumption versus decreased production. It also helps to determine the imminent release of platelets and ca n be therefore a helpful parameter in Chemotherapy and Bone marrow transplant patients. ELEVATED IPF value: ?? When the bone marrow is in a state of over production such as when increased destruction and consumption are the unde rlying issue. ?? When the marrow is recovering post ch emotherapy or bone marrow transplant. LOW to NORMAL IPF value: ?? When the bone marrow in not respondin g and is in a decreased state of production. References: [employer] The Clinical Value of the Immature Platelet Fraction (IPF) in Cell Recovery Document Number [id number] 04/2011 [employer] The Role of the Imm ature Platelet Fraction (IPF) in the Differential Diagnosis of Thrombocytopen ia, Document [id number] V05/10/29 P0514 Specimen Anatomical Collection Method Collection Time Receive d Time (Source) Location / / Volume Laterality Blood 01/21/2022 10:50 01/21/2022 AM EST 10:59 AM EST Resulting Agency Comment Spec In Lab Danny Jewell MD HEMATOLOGY ORDERABLES Performing Organization Address City/State/[place] [address] (ABNORMAL) Hemoglobin and Hematocrit, blood (01/21/2022 10:50 AM EST) P athologist Signature Hemoglobin 8.0 (L) 13.7 - 16.5 [facility] g/dL [facility] Comment: This result has been called to ANASTASIA ARCINIEGA by Jim Montesinos on 01 21 2022 at 1105, and has been read back. Hematocrit 22.3 (L) 40.5 - 48.5 % [facility] Comment: This result has been called to ANASTASIA ARCINIEGA by Jim Montesinos on 01 21 2022 at 1105, and has been read back. Specimen Anatomical Collection Method Collection Time Receive d Time (Source) Location / / Volume Laterality Blood 01/21/2022 10:50 01/21/2022 AM EST 10:59 AM EST Resulting Agency Comment Spec In Lab Dnany Jewell MD HEMATOLOGY ORDERABLES Performing Organization Address City/[facility]/[place] [address] Fibrinogen (01/21/2022 10:50 AM EST) P athologist Signature Fibrinogen 209 200 - 393 [facility] mg/dL [facility] Comment: OR Result called by ?? SALVLT OR Result s read back by: ? Anastasia Dumont at 2022-01-21 11:14:42 A fibrinogen level >100 mg/dL is adequat e for hemostasis in most patients without underlying bleeding disorders. Specimen Anatomical Collection Method Collection Time Receive d Time (Source) Location / / Volume Laterality Blood 01/21/2022 10:50 01/21/2022 AM EST 10:59 AM EST Resulting Agency Comment Spec In Lab Danny Jewell MD HEMATOLOGY ORDERABLES Performing Organization Address City/[facility]/[place] [address] (ABNORMAL) BLOOD GAS 2 ARTERIAL (01/21/2022 10:45 AM EST) Analysis Performed At Patho logist Time Signature pH Art 7.38 7.35 - [facility] 7.45 [facility] pCO2 Art 47 (H) 35 - 45 [facility] mmHg [facility] pO2 Art 468 (H) 85 - 104 [facility] mmHg [facility] HCO3 Art 27.4 (H) 20.0 - [facility] 26.0 [facility] mmol/L [facility] BE Art 2.3 -3.0 - 3.0 [facility] mmol/L [facility] Hgb Blood Gas 8.5 (L) 13.7 - [facility] 16.5 g/dL [facility] O2HB Art 99.0 (H) 94.0 - [facility] 97.0 % [facility] COHB Art 0.1 % [facility] Comment: Nonsmokers: 0.5-1.5% COHB Smokers: Variable, but usually less than 10% Toxic: 20-30% COHB Lethal: Greater than 60% COHB METHB Art 0.3 <=1.5 % [facility] Na Whole Blood 132 (L) 135 - 145 mmol/L [facility] K Whole Blood 6.1 (Critical) 3.5 - 5.0 mmol/L M [facility] Comment: Critical notified to Donnie Vasquez MD y instrument and control technician immediately following run time. Please note: Patients with WBC >100,000 may have falsely elevated Potassium levels. Contact the Clinical Chemistry L aboratory if there are any questions. ICa Whole Blood 0.96 (L) 1.15 - 1.33 mmol/L [facility] Comment: Note: ??Total bilirubin higher than 20 m g/dL may lead to falsely low ionized calcium. CL Whole Blood 101 98 - 107 mmol/L [facility] Gluc Whole Bld 217 (H) 65 - 199 mg/dL [facility] Comment: Diabetes: >=200 mg/dL plus symp toms. Lactate WB 0.8 0.5 - 2.2 mmol/L [facility] Specimen Anatomical Collection Method Collection Time Receive d Time (Source) Location / / Volume Laterality Blood 01/21/2022 10:45 01/21/2022 AM EST 10:45 AM EST Danny Jewell MD CHEMISTRY ORDERABLES Performing Organization Address City/State/[place] [address] (ABNORMAL) BLOOD GAS 2 ARTERIAL (01/21/2022 10:19 AM EST) Analysis Performed At Patho logist Time Signature pH Art 7.32 (L) 7.35 - [facility] 7.45 [facility] pCO2 Art 48 (H) 35 - 45 [facility] pO2 Art 469 (H) 85 - 104 [facility] HCO3 Art 24.4 20.0 - [facility] 26.0 [facility] mmol/L [facility] BE Art -1.7 -3.0 - 3.0 [facility] mmol/L [facility] Hgb Blood Gas 8.6 (L) 13.7 - [facility] 16.5 g/dL [facility] O2HB Art 99.3 (H) 94.0 - [facility] 97.0 % [facility] COHB Art 0.2 % [facility] Comment: Nonsmokers: 0.5-1.5% COHB Smokers: Variable, but usually less than 10% Toxic: 20-30% COHB Lethal: Greater than 60% COHB METHB Art 0.3 <=1.5 % [facility] Na Whole Blood 127 (L) 135 - 145 mmol/L [facility] K Whole Blood 6.4 (Critical) 3.5 - 5.0 mmol/L [facility] Comment: Critical notified to Donnie Vasquez MD b y instrument and control technician immediately following run time. Please note: Patients with WBC >100,000 may have falsely elevated Potassium levels. Contact the Clinical Chemistry L aboratory if there are any questions. ICa Whole Blood 1.00 (L) 1.15 - 1.33 mmol/L [facility] Comment: Note: ??Total bilirubin higher than 20 m g/dL may lead to falsely low ionized calcium. CL Whole Blood 101 98 - 107 mmol/L [facility] Gluc Whole Bld 215 (H) 65 - 199 mg/dL [facility] Comment: Diabetes: >=200 mg/dL plus symp toms. Lactate WB 0.9 0.5 - 2.2 mmol/L [facility] Specimen Anatomical Collection Method Collection Time Receive d Time (Source) Location / / Volume Laterality Blood 01/21/2022 10:19 01/21/2022 AM EST 10:19 AM EST Danny Jewell MD CHEMISTRY ORDERABLES Performing Organization Address City/State/[place] [address] (ABNORMAL) BLOOD GAS 2 VENOUS (01/21/2022 9:52 AM EST) P athologist Signature pH Ryan 7.33 7.32 - [facility] 7.42 [facility] pCO2 Ryan 48 41 - 51 [facility] pO2 Ryan 43 (H) 25 - 40 [facility] HCO3 Ryan 24.6 mmol/L [facility] BE Ryan -1.3 mmol/L [facility] Hgb Blood Gas 7.4 (L) 13.7 - [facility] 16.5 g/dL [facility] O2HB Ryan 75.4 % [facility] COHB Ryan 0.9 % [facility] Comment: Nonsmokers: 0.5-1.5% COHB Smokers: Variable, but usually less than 10% Toxic: 20-30% COHB Lethal: Greater than 60% COHB METHB Ryan 0.0 <=1.5 % [facility] Na Whole Blood 128 (L) 135 - 145 mmol/L [facility] K Whole Blood 4.7 3.5 - 5.0 mmol/L [facility] Comment: Please note: Patients with WBC >100,000 may have falsely elevated Potassium levels. Contact the Clinical Chemistry L aboratory if there are any questions. ICa Whole Blood 0.89 (Critical) 1.15 - 1.33 mmol/L [facility] Comment: Critical notified to Donnie Vasquez MD y instrument and control technician immediately following run time. Note: ??Total bilirubin higher than 20 m g/dL may lead to falsely low ionized calcium. CL Whole Blood 104 98 - 107 mmol/L [facility] Gluc Whole Bld 152 65 - 199 mg/dL [facility] Comment: Diabetes: >=200 mg/dL plus symp toms Lactate WB 1.0 0.5 - 2.2 mmol/L [facility] BGas Source Venous [facility] Specimen Anatomical Collection Method Collection Time Receive d Time (Source) Location / / Volume Laterality Blood 01/21/2022 9:52 AM 9:52 EST AM EST Danny Jewell MD CHEMISTRY ORDERABLES Performing Organization Address City/State/[place] [address] (ABNORMAL) BLOOD GAS 2 ARTERIAL (01/21/2022 9:49 AM EST) Analysis Performed At Patho logist Time Signature pH Art 7.38 7.35 - [facility] 7.45 [facility] pCO2 Art 41 35 - 45 [facility] pO2 Art 486 (H) 85 - 104 [facility] HCO3 Art 23.8 20.0 - [facility] 26.0 [facility] mmol/L [facility] BE Art -1.3 -3.0 - 3.0 [facility] mmol/L [facility] Hgb Blood Gas 7.8 (L) 13.7 - [facility] 16.5 g/dL [facility] O2HB Art 98.6 (H) 94.0 - [facility] 97.0 % [facility] COHB Art 0.3 % [facility] Comment: Nonsmokers: 0.5-1.5% COHB Smokers: Variable, but usually less than 10% Toxic: 20-30% COHB Lethal: Greater than 60% COHB METHB Art 0.3 <=1.5 % [facility] Na Whole Blood 129 (L) 135 - 145 mmol/L [facility] K Whole Blood 5.1 (H) 3.5 - 5.0 mmol/L [facility] Comment: Please note: Patients with WBC >100,000 may have falsely elevated Potassium levels. Contact the Clinical Chemistry L aboratory if there are any questions. ICa Whole Blood 0.97 (L) 1.15 - 1.33 mmol/L [facility] Comment: Note: ??Total bilirubin higher than 20 m g/dL may lead to falsely low ionized calcium. CL Whole Blood 102 98 - 107 mmol/L [facility] Gluc Whole Bld 159 65 - 199 mg/dL [facility] Comment: Diabetes: >=200 mg/dL plus symp toms. Lactate WB 1.0 0.5 - 2.2 mmol/L [facility] Specimen Anatomical Collection Method Collection Time Receive d Time (Source) Location / / Volume Laterality Blood 01/21/2022 9:49 AM 9:49 EST AM EST Danny Jewell MD CHEMISTRY ORDERABLES Performing Organization Address City/State/[place] [address] (ABNORMAL) BLOOD GAS 2 ARTERIAL (01/21/2022 8:20 AM EST) Analysis Performed At Patho logist Time Signature pH Art 7.42 7.35 - [facility] 7.45 [facility] pCO2 Art 41 35 - 45 [facility] pO2 Art 322 (H) 85 - 104 [facility] HCO3 Art 25.6 20.0 - [facility] 26.0 [facility] mmol/L [facility] BE Art 1.1 -3.0 - 3.0 [facility] mmol/L [facility] Hgb Blood Gas 11.0 (L) 13.7 - [facility] 16.5 g/dL [facility] O2HB Art 98.4 (H) 94.0 - [facility] 97.0 % [facility] COHB Art 0.3 % [facility] Comment: Nonsmokers: 0.5-1.5% COHB Smokers: Variable, but usually less than 10% Toxic: 20-30% COHB Lethal: Greater than 60% COHB METHB Art 0.3 <=1.5 % [facility] Na Whole Blood 139 135 - 145 mmol/L [facility] K Whole Blood 4.0 3.5 - 5.0 mmol/L [facility] Comment: Please note: Patients with WBC >100,000 may have falsely elevated Potassium levels. Contact the Clinical Chemistry L aboratory if there are any questions. ICa Whole Blood 1.13 (L) 1.15 - 1.33 mmol/L [facility] Comment: Note: ??Total bilirubin higher than 20 m g/dL may lead to falsely low ionized calcium. CL Whole Blood 105 98 - 107 mmol/L [facility] Gluc Whole Bld 129 65 - 199 mg/dL [facility] Comment: Diabetes: >=200 mg/dL plus symp toms. Lactate WB 1.1 0.5 - 2.2 mmol/L [facility] Specimen Anatomical Collection Method Collection Time Receive d Time (Source) Location / / Volume Laterality Blood 01/21/2022 8:20 AM 8:20 EST AM EST Danny Jewell MD CHEMISTRY ORDERABLES Performing Organization Address City/State/Z[place] [address] COVID-19 PCR (01/21/2022 7:35 AM EST) [facility] Method Time Signature SARS-CoV-2 Not Detected Not Detected [facility] RNA PCR [facility] Comment: This result should be interpreted in com bination with the clinical observations, patient history and epidem iological information. For testing of asymptomatic individuals, assay performa nce characteristics and clinical utility have not been evaluated. Testing for SARS-CoV-2 (Severe acute respiratory syndrome coronavirus 2, form erly known as 2019 novel coronavirus or 2019-nCoV) to aid in the diagnosis of CO VID-19 is performed using the Simplexa COVID-19 Direct Assay by [employer] as authorized by the FDA issued Emergency Use Authorization (EUA). This assay is intended for In-vitro Diagnostic (IVD) use with nasopharyngeal swabs collected from individuals meeting the CDC criteria for testing. Th e assay is performed based on the instructions for use and additional guid ance provided by the FDA. Testing is performed in the Microbiology Laboratory within the Department of Pathology and Laboratory Medicine at [facility], certified under the Clinical Laboratory Improvement Amendmen ts of 1988 (CLIA), 42 U.S.C. section 263a, to perform high complexity tests. Assay performance has been verified according to clinical laboratory regulat ory requirements. Test results are provided above. A resul t of Not Detected indicates that the viral RNA target is not present but does not preclude SARS-CoV-2 infection. False negative results may occur if a sp ecimen is improperly collected, transported or handled; if amplification inhibitors are present; or if inadequate numbers of viral particles ar e present in the specimen. A result of Detected suggests a current or recent infection and the patient is presumed to be infected. Positive and negative pr edictive values for this test are highly dependent on disease prevalence. A result of Invalid indicates the inability to conclusively determine the presence or absence of SARS-CoV-2 RNA in the sample which can be due to a vari ety of factors. Recollection is recommended in the case of an invalid re sult. CDC COVID-19 criteria for testing on hum an specimens and clinical management guidance information are available at e CDC Coronavirus Disease 2019 (COVID-19) webpage under Information fo r Healthcare Professionals (https://www.cdc.gov/coronavirus/2019-nc ov/hcp/index.html). Additional information about this and ot her EUA tests can be found in provider and patient fact sheets at the following FDA website: https://www.fda.gov/medical-devices/pwmfdcehqzn-lyxlvxm-6119-metdj-90-esphtrxhg- lfj-pweobwqpxcivxq-iwnjiwh-devices/ekwrk-dupsfoyppan-bjaz SARS-CoV-2 Source [place] Swab [facility] Specimen (Source) Anatomical Collection Method Collection Time Re ceived Time Location / / Volume Laterality Nasopharyngeal Swab 01/21/2022 7:35 01/21 AM EST 9:15 AM EST Comment: Symptoms->Surveillance Resulting Agency Comment Spec In Lab Danny Jewell MD MICROBIOLOGY - GENERAL ORDER CATHY Performing Organization Address City/State/Z[place] [address] Transesophageal Echo/OR (01/21/2022 7:18 AM EST) Anatomical Region Laterality Modality Other Specimen (Source) Anatomical Collection Method Collection Time Re ceived Time Location / / Volume Laterality 01/21/2022 7:18 AM EST Narrative 01/21/2022 1:18 PM EST ? Version: 1 + + ? + + : ?: ? : ? : + + ? [facility] ?: ? : ? : ? : ? : ? : ? [address] ? : ? : ? + + ?[place] [address] ?Voice: ?Fax: Name: VINOD OCHOA ?Study Date: 01/21/2022, 7: 18 AM ?Patient Location: OR^OR16^A : 1955 (MM/DD/YYYY) ? Age: 66 Years Gender: Male Ordering Physician: [id number]^BEST^DANNY^N^^^^^EPIC^^^^PRO VID Referring Physician: [id number]^BEST^IFRAHCK^N^^^^^EPIC^^^^PRO VID Reason For Study: Cardiac disease ? Conclusions The left ventricle is of normal size. Wa ll thickness is normal. No distinct wall motion abnormalities are identified. No significant valvular regurgitation noted on this study. This was essentially a no rmal study. Pre and post-bypass WILNER images were obta ined at the request of Dr. Jewell. Pre Procedure Findings Left ventricle is of normal size. Wall t hickness is mildly increased. Left ventricular ejection fraction is estimat ed visually at 55%. There are no segmental wall motion abnormalities. The right ventricle is of normal size. R ight ventricular systolic function is normal. The left atrium is mildly dilated. There is no evidence of a mass or thrombus. Pulsed wave Doppler of the left atrial a ppendage demonstrates normal emptying velocity. No abnormality of the interatr ial septum is identified. There is no evidence for a patent foramen ovale. The right atrium is not well visualized. The aortic valve is structurally and fun ctionally normal. There is no evidence for aortic regurgitation. No evidence of aor tic stenosis. The mitral valve is structurally and fun ctionally normal. There is trace mitral regurgitation. The tricuspid valve is structurally and functionally normal. There is no evidence of tricuspid regurgitation. Small plaque at the STJ. No abnormalitie s of the transverse aorta are identified. No abnormalities of the descending thora cic aorta are identified. Post Procedure Findings Left ventricle is of normal size. Left v entricular ejection fraction is estimated visually at 55 %. No changes from pre-by pass exam. The right ventricle is of normal size. N o changes from pre-bypass exam. No changes from pre-bypass exam. No changes from pre-bypass exam. No changes from pre-bypass exam. No changes from pre-bypass exam. No sexton ges from pre-bypass exam. --+ : I ? : : ?WMSI ??= ??1.00 ? % Normal ??= ?? 100% ? : :+ + + + + + ? : :: ? : : ? : : ?? : : ?: :: ? : : ? : : ?? : : ?: :: ? : : ? : : ?? : : ?: :: ? : : ? : : ?? : : ?: :: ? : : ? : : ?? : : ?: :: ? : : ? : : ?? : : ?: :: ? : : ? : : ?? : : ?: :: ? : : + + + : ? : :: ? : : ? : ?: :: ? : : ? : ?: :+ + : ? : ?: : ?: + + + : ? : : ?: ? : : ?? : : ?: : ?: ? : : ?? : : ?: : ?: ? : : ?? : : ?: : ?: ? : : ?? : : ?: : ?: ? : : ?? : : ?: : ?: ? : : ?? : : ?: : ?: ? : : ?? : : ?: : ?: + + + : ? : : ?: ? :+ + ? : :: : +: : : X - ?1 - ? 2 - ?3 - ?4 - ? 5 - ? :: ? Segmen ts ? : ? Size ? : ? : : ?Cannot Interpret ??Normal ? Hypokinetic ?Akinetic ? Dyskinetic ? Aneurysmal ?? :: ?: ? : ? : : ? :: + + ? : ? : : ? :: ? 1-2 ?: ?small ? : ? : : ? :: : + ? : ? : : ? :: ? 3-5 ?: ?moderate ?: ? : : ? :: + + ? : ? : : ? :: ?6-14 ?: ? large ?: ? : : ? :: + + ? : ? : : ? :: ? 15-16 ?: ?diffuse ? : ? : --+ ? Reading Physician --+ : ?Donnie Vasquez MD ? 01/21/2022, 1:18 PM ? : --+ Ordering Physician: DANNY JEWELL Referring Physician: DANNY JEWELL Performed By: Donnie Vasquez MD Procedure Note Donnie Vasquez MD - 01/21/2022Formatt ing of this note might be different from the original. Version: 1 + + + + : : : : + + [facility] : : : : : : [address] : : + + [place] [id number] Voice: Fax: Name: VINOD OCHOA Study Date: , 7: 18 AM Patient Location: OR^OR1 6^A : 1955 (MM/DD/YYYY) Age: 66 Years Gender: Male Ordering Physician: [id number]^BEST^DANNY^Bess^^^^^EPIC^^^^PRO VID Referring Physician: [id number]^BEST^ANNE-MARIE^^^^^EPIC^^^^PRO VID Reason For Study: Cardiac disease Conclusions The left ventricle is of normal size. Wa ll thickness is normal. No distinct wall motion abnormalities are identified. No significant valvular regurgitation noted on this study. This was essentially a no rmal study. Pre and post-bypass WILNER images were obta ined at the request of Dr. Jewell. Pre Procedure Findings Left ventricle is of normal size. Wall t hickness is mildly increased. Left ventricular ejection fraction is estimat ed visually at 55%. There are no segmental wall motion abnormalities. The right ventricle is of normal size. R ight ventricular systolic function is normal. The left atrium is mildly dilated. There is no evidence of a mass or thrombus. Pulsed wave Doppler of the left atrial a ppendage demonstrates normal emptying velocity. No abnormality of the interatr ial septum is identified. There is no evidence for a patent foramen ovale. The right atrium is not well visualized. The aortic valve is structurally and fun ctionally normal. There is no evidence for aortic regurgitation. No evidence of aor tic stenosis. The mitral valve is structurally and fun ctionally normal. There is trace mitral regurgitation. The tricuspid valve is structurally and functionally normal. There is no evidence of tricuspid regurgitation. Small plaque at the STJ. No abnormalitie s of the transverse aorta are identified. No abnormalities of the descending thora cic aorta are identified. Post Procedure Findings Left ventricle is of normal size. Left v entricular ejection fraction is estimated visually at 55 %. No changes from pre-by pass exam. The right ventricle is of normal size. N o changes from pre-bypass exam. No changes from pre-bypass exam. No changes from pre-bypass exam. No changes from pre-bypass exam. No changes from pre-bypass exam. No sexton ges from pre-bypass exam. --+ : I : : WMSI = 1.00 % Normal = 100% : :+ + + + + + : :: : : : : : : : :: : : : : : : : :: : : : : : : : :: : : : : : : : :: : : : : : : : :: : : : : : : : :: : : : : : : : :: : : + + + : : :: : : : : :: : : : : :+ + : : : : : + + + : : : : : : : : : : : : : : : : : : : : : : : : : : : : : : : : : : : : : : : : : : : : : : : : : : : : : + + + : : : : :+ + : :: : +: : : X - 1 - 2 - 3 - 4 - 5 - :: Segments : Size : : : Cannot Interpret Normal Hypokinetic Ak inetic Dyskinetic Aneurysmal :: : : : : :: + + : : : :: 1-2 : small : : : :: : + : : : :: 3-5 : moderate : : : :: + + : : : :: 6-14 : large : : : :: + + : : : :: 15-16 : diffuse : : --+ Reading Physician --+ : Donnie Vasquez MD 01/21/2022, 1:18 PM : --+ Ordering Physician: DANNY JEWELL Referring Physician: DANNY JEWELL Performed By: Donnie Vasquez MD Danny Jewell MD ECHO ORDERABLES Prepare RBC (01/21/2022 6:35 AM EST) athologist Signature Dispensed? Yes [facility] Specimen Anatomical Collection Method Collection Time Receive d Time (Source) Location / / Volume Laterality Blood 01/21/2022 6:35 AM 6:31 EST AM EST Danny Jewell MD BLOOD BANK ORDERABLES Performing Organization Address City/State/[place] [address] POCT Glucose (01/21/2022 6:26 AM EST) P athologist Signature POC Glucose 117 65 - 199 [facility] mg/dL [facility] Comment: Supplemental ranges: <140 mg/dL before meals <180 mg/dL all other times of the day Specimen Anatomical Collection Method Collection Time Receive d Time (Source) Location / / Volume Laterality Blood 01/21/2022 6:26 AM 6:26 EST AM EST Danny Jewell MD POINT OF CARE TEST ORDERABLE S Performing Organization Address City/State/ZIP Code [place] [address] documented in this encounter Visit Diagnoses Diagnosis Coronary artery disease involving shinnecock coronary artery of shinnecock heart, unspecified whether angina present S/P CABG x 4 Postsurgical aortocoronary bypass status CAD (coronary artery disease) Coronary atherosclerosis of unspecified type of vessel, shinnecock or graft Vocal cord paralysis Paralysis of vocal cords or larynx, unsp ecified documented in this encounter Admitting Diagnoses Diagnosis CAD (coronary artery disease) Coronary atherosclerosis of unspecified type of vessel, shinnecock or graft documented in this encounter Administered Medications Inactive Administered Medications - up to 3 most recent administrations Medication Order MAR Action Action Date Dose Rate Site acetaminophen (Ofirmev) (1000 Given 01/22/2022 5:10 AM 1,000 mg 400 mL/hr mg/100 mL) infusion 1,000 mg EST 1,000 mg, Intravenous, at 400 mL/hr, EVERY 6 HOURS SCHEDULED, 4 doses, First dose on Thu01/21/22 at 1330, Last dose on Thu01/22/22 at 0600, Maximum dose of acetaminophen is 4000 mg from all sources in 24 hours. When ordered for pain, acetaminophen should be given even when other ordered pain medications are indicated., Routine Given 01/21/2022 11:34 PM EST 1,000 mg 400 mL/hr Given 01/21/2022 5:26 PM EST 1,000 mg 400 mL/hr acetaminophen (Ofirmev) (1000 Given 01/23/2022 5:50 AM EST 1,000 mg 400 mL/hr mg/100 mL) infusion 1,000 mg 1,000 mg, Intravenous, at 400 mL/hr, EVERY 8 HOURS SCHEDULED, 3 doses, First dose on Thu01/22/22 at 1315, Last dose on Thu01/23/22 at 0600, Maximum dose of acetaminophen is 4000 mg from all sources in 24 hours. When ordered for pain, acetaminophen should be given even when other ordered pain medications are indicated. , Routine Given 01/22/2022 10:10 PM EST 1,000 mg 400 mL/hr Given 01/22/2022 12:59 PM EST 1,000 mg 400 mL/hr acetaminophen (Ofirmev) (1000 Given 01/25/2022 1:19 PM EST 1,000 mg 400 mL/hr mg/100 mL) infusion 1,000 mg 1,000 mg, Intravenous, at 400 mL/hr, EVERY 8 HOURS SCHEDULED, 3 doses, First dose on Thu01/24/22 at 1800, Last dose on Thu01/25/22 at 1400, Maximum dose of acetaminophen is 4000 mg from all sources in 24 hours. When ordered for pain, acetaminophen should be given even when other ordered pain medications are indicated. , Routine Given 01/25/2022 5:36 AM EST 1,000 mg 400 mL/hr Centr al Line Given 01/24/2022 6:10 PM EST 1,000 mg 400 mL/hr acetaminophen (Tylenol) tablet 1,000 mg Given 01/21/2022 6:23 AM EST 1,000 mg 1,000 mg, Oral, ONCE, 1 dose, On Thu01/21/22 at 0630, Administer with SIP of H2O only., Day of Surgery (Day of Procedure), Routine acetaminophen (Tylenol) tablet 1,000 mg Given 01/29/2022 9:28 PM EDT 1,000 mg 1,000 mg, Oral, EVERY 8 HOURS SCHEDULED, First dose on Thu01/25/22 at 2000, Until Discontinued Given 01/29/2022 1:41 PM EDT 1,000 mg Given 01/29/2022 6:16 AM EDT 1,000 mg albumin (human) 5% 250 mL intravenous New Bag 01/21/2022 2:[address] 12.5 g solution 12.5 g, Intravenous, EVERY 30 MIN PRN, 2 doses, Starting on Thu01/21/22 at 1237, Until Thu01/21/22 at 1421, Other, PRN as needed for volume replacement to maintain cardiac index greater than or equal to 2.0 L/min/M2, PRN as needed for volume replacement to maintain cardiac index greater than or equal to 2.0 L/min/M2, Recovery (Recovery-Hospital Unit), STAT New Bag 01/21/2022 1:04 PM EST 12.5 g albumin (human) 5% 250 mL intravenous New Bag 01/21/2022 2:[address] 12.5 g solution 12.5 g, Intravenous, EVERY 30 MIN, 1 dose, First dose on Thu01/21/22 at 1515, 1 bottle (unit) = 12.5 grams / 250 mL (Total Dose = 12.5 grams = 1 bottle), Routine amLODIPine (Norvasc) tablet 10 mg Given 01/31/2022 8:26 AM EDT 10 mg 10 mg, Oral, DAILY, First dose (after last modification) on Thu01/27/22 at 0900, Until Discontinued, Routine Given 01/30/2022 8:52 AM EDT 10 mg Given 01/29/2022 8:12 AM EDT 10 mg amLODIPine (Norvasc) tablet 5 mg Given 01/26/2022 4:14 PM EDT 5 mg 5 mg, Oral, DAILY, First dose on Thu01/26/22 at 1645, Until Discontinued, Routine aspirin chewable tablet 81 mg Given 01/31/2022 8:26 AM EDT 81 mg 81 mg, Oral, DAILY, First dose on Thu01/21/22 at 1330, Until Discontinued, Start on Post-Op Day 0, please give within 6 hours upon arrival to Unit. If unable to take PO, may give IL, Routine Given 01/30/2022 8:51 AM EDT 81 mg Given 01/29/2022 8:07 AM EDT 81 mg aspirin suppository 300 mg Given 01/23/2022 12:32 PM EST 300 mg 300 mg, Rectal, DAILY, First dose on Thu01/21/22 at 1330, Until Discontinued, Start on Post-Op Day 0, please give within 6 hours upon arrival to Unit. Give IL if unable to take PO, Routine Given 01/22/2022 8:27 AM EST 300 mg Given 01/21/2022 3:08 PM EST 300 mg atorvastatin (Lipitor) tablet 80 mg Given 01/30/2022 4:40 PM EDT 80 mg 80 mg, Oral, EVERY EVENING, First dose on Thu01/21/22 at 1700, Until Discontinued, Routine Given 01/29/2022 4:27 PM EDT 80 mg Given 01/28/2022 4:55 PM EDT 80 mg bisacodyL (Dulcolax) suppository 10 mg Given 01/28/2022 3:26 PM EDT 10 mg 10 mg, Rectal, DAILY PRN, Starting on Thu01/24/22 at 0000, Until Thu01/31/22 at 1728, Constipation, Starting post-op day 3., Routine Given 01/24/2022 5:52 AM EST 10 mg calcium chloride 10% (100 mg/mL) injecti on 1 g Given 01/21/2022 2:23 PM EST 1 g 1 g, Intravenous, ONCE, 1 dose, On Thu01/21/22 at 1500, This is for emergency use ONLY. Not to be used for routine calcium replacement., Routine calcium chloride 10% (100 mg/mL) injecti on 1 g Given 01/21/2022 2:23 PM EST 1 g 1 g, Intravenous, ONCE, 1 dose, On Thu01/21/22 at 1500, This is for emergency use ONLY. Not to be used for routine calcium replacement., Routine calcium chloride 100 mg/mL (10 %) inject ion 1 dose, Starting on Thu01/21/22 at 1334, Until Thu01/21/22 at 1423, Emely Quintanilla.: cabinet override chlorhexidine (Peridex) 0.12 % oral solution Given 8:46 AM EDT 15 mLs 15 mL 15 mL, Oral, EVERY 12 HOURS SCHEDULED (2 times per day), First dose on Thu01/21/22 at 1330, Until Discontinued, [place] teeth, Routine Given 01/25/2022 8:39 PM EST 15 mLs Given 01/25/2022 8:37 AM EST 15 mLs cloNIDine (Catapres) tablet 0.1 mg Given 01/29/2022 8:11 PM EDT 0.1 mg 0.1 mg, Oral, 2 TIMES DAILY, First dose on Thu01/27/22 at 0900, Until Discontinued, Routine Given 01/29/2022 8:07 AM EDT 0.1 mg Given 01/28/2022 9:18 PM EDT 0.1 mg cloNIDine (Catapres) tablet 0.2 mg Given 01/31/2022 8:26 AM EDT 0.2 mg 0.2 mg, Oral, 2 TIMES DAILY, First dose (after last modification) on Thu01/30/22 at 0900, Until Discontinued, Routine Given 01/30/2022 8:41 PM EDT 0.2 mg Given 01/30/2022 8:51 AM EDT 0.2 mg dexmedetomidine (Precedex) Rate/Dose Change 01/26/2022 9:52 AM 0 mc g/kg/hr 0 mL/hr (4 mcg/mL) in sodium EDT chloride 0.9% 100 mL infusion 0-1.7 mcg/kg/hr ? 109.2 kg (0-46.41 mL/hr, rounded to 0-46.4 mL/hr), Intravenous, CONTINUOUS, Starting on 01/22/22 at 2100, Until 01/27/22 at 1429, Titrate to sedation level of RASS Goal (-)1 to 0 . Start at 0.4 mcg/kg/hr, adjust by 0.4 mcg/kg/hr every 15 minutes. Once stable, reassess patient every 30 minutes. Rate not to exceed 1.7 mcg/kg/hr. Change rate only after assessing and documenting RASS. Reassess sedation scores within 30 minutes after every rate change. If under sedated, increase rate by 0.4 mcg/kg/hr. If over sedated, hold sedative until target RASS (-)1 to 0 achieved and then restart at 50% of previous rate. Call refrigeration houseman if goal not achieved at maximum rate. If SAT is ordered and if patient meets criteria for Spontaneous Awakening Trial, titrate per protocol. Rate/Dose Change 01/26/2022 8:49 AM EDT 0.6 mcg/kg/hr 16.4 mL/hr Rate/Dose Verify 01/26/2022 8:00 AM EDT 1.2 mcg/kg/hr 32.8 mL/hr dextrose 10% infusion 250 mL, at 1,000 mL/hr, Intravenous, SELVIN RY 30 MIN PRN, Starting on Thu01/26/22 at 0936, Until Thu01/31/22 at 1728, For BG 50-70 mg/dL: Oral treatment preferred: If able to drink, give 120 mL Juice or R egular (not diet) soda OR If NPO, give 15 gram glucose 40% oral gel massaged into buccal mucosa OR if unconscious or uncooperative, give 25 gram (250 mL) Dex trose 10% IV over 15 minutes per protocol OR, if no IV access, 1 mg Glucagon IM. * * For BG less than 50 mg/dL: Oral treatment preferred: If able to drink, give 240 mL Juice or Regu lar (not diet) soda OR If NPO, give 30 gram glucose 40% oral gel m assaged in buccal mucosa OR if unconscious or uncooperative, give 25 gram (250 mL) Dextrose 10% I V over 15 minutes per protocol OR, if no IV access, 1 mg Glucagon IM. Rech leon BG in 30 minutes. May repeat juice/soda, gel, dextrose or gluc agon once per episode. For persistent hypoglycemia, consider longer-acting treatment for the duration of the active insulin. diphenhydrAMINE (Benadryl) (50 mg/mL) Given 01/21/2022 2:[address] 50 mg injection 50 mg 50 mg, Intravenous, ONCE, 1 dose, On Thu01/21/22 at 1500, Routine diphenhydrAMINE (Benadryl) 50 mg/mL inje ction 1 dose, Starting on Thu01/21/22 at 1341, Until Thu01/21/22 at 1414, Emely Quintanilla.: cabinet override EPINEPHrine (Adrenalin) (8 Rate/Dose Verify 01/23/2022 2:00 PM 1 mc g/min 7.5 mL/hr mcg/mL) in dextrose 5% 250 EST mL infusion 0-6 mcg/min (0-45 mL/hr), Intravenous, CONTINUOUS, Starting on Thu01/21/22 at 1545, Until Thu01/24/22 at 1417, Titrate to keep cardiac index greater than 2.0 and mean arterial pressure (MAP) greater than 60 mmHg. Start at 1 mcg/min, increase by 1 mcg/min every 5 minutes. Dose not to exceed 6 mcg/min. Concentration: 8 mcg/mL. Warning Vesicant/Irritant Medication Rate/Dose Verify 01/23/2022 12:00 PM EST 1 mcg/min 7.5 mL/hr Rate/Dose Verify 01/23/2022 10:00 AM EST 1 mcg/min 7.5 mL/hr EPINEPHrine (Adrenalin) 0.1 mg/mL (1:10,000) Given 1:45 PM EST 10 mg injection 1 dose, Starting on Thu01/21/22 at 1339, Until Thu01/21/22 at 1345, RICHARD ESPINOZA: cabinet override famotidine (Pepcid) (10 mg/mL) injection 40 mg Given 01/21/2022 2:15 PM EST 40 mg 40 mg, Intravenous, ONCE, 1 dose, On Thu01/21/22 at 1445 fentaNYL (50 mcg/mL) bolus Bolus from Infusion 01/22/2022 10:49 PM ES T 25 mcg from infusion 25 mcg 25 mcg, Intravenous, EVERY 10 MIN PRN, Starting on Thu01/21/22 at 1235, Until 01/27/22 at 1429, Pain, Maximum dose 300 mcg over one hour, Routine Bolus from Infusion 01/22/2022 10:35 PM EST 25 mcg Bolus from Infusion 01/22/2022 7:31 PM EST 50 mcg fentaNYL (PF) (50 Rate/Dose Verify 01/24/2022 2:30 PM EST 25 mcg/hr 0.5 mL/hr mcg/mL) infusion syringe 50 mL 0-100 mcg/hr (0-2 mL/hr), Intravenous, CONTINUOUS, Starting on Thu01/21/22 at 1330, Until 01/25/22 at 1039, Titrate to patient comfort, pain scale 1-3. Start at 25 mcg/hr, adjust by 25 mcg/hr every 15 minutes. Dose not to exceed 100 mcg/hour., Routine Rate/Dose Verify 01/24/2022 12:00 PM EST 25 mcg/hr 0.5 mL/hr Rate/Dose Verify 01/24/2022 8:00 AM EST 25 mcg/hr 0.5 mL/hr furosemide (Lasix) (10 mg/mL) Given 01/25/2022 11:00 PM EST 10 m g Left Arm injection 10 mg 10 mg, Intravenous, ONCE, 1 dose, On 01/25/22 at 2300 furosemide (Lasix) (10 mg/mL) injection 20 mg Given 01/23/2022 2:52 PM EST 20 mg 20 mg, Intravenous, 3 TIMES DAILY, First dose on Myrna 01/23/22 at 0845, Until Discontinued Given 01/23/2022 8:45 AM EST 20 mg furosemide (Lasix) (10 mg/mL) injection 20 mg Given 01/25/2022 9:00 AM EST 20 mg 20 mg, Intravenous, 2 TIMES DAILY, First dose (after last modification) on Thu01/24/22 at 0900, Until Discontinued Given 01/24/2022 4:27 PM EST 20 mg Given 01/24/2022 8:36 AM EST 20 mg furosemide (Lasix) (10 mg/mL) injection 20 mg Given 01/27/2022 8:30 AM EDT 20 mg 20 mg, Intravenous, DAILY, First dose (after last modification) on Thu01/26/22 at 0900, Until Discontinued Given 01/26/2022 8:48 AM EDT 20 mg furosemide (Lasix) tablet 20 mg Given 01/31/2022 8:26 AM EDT 20 mg 20 mg, Oral, DAILY, First dose on Thu01/28/22 at 0900, Until Discontinued, Routine Given 01/30/2022 8:52 AM EDT 20 mg Given 01/29/2022 8:07 AM EDT 20 mg glucagon (Glucagen) (1 mg/mL) injection solution 1 mg 1 mg, Intramuscular, EVERY 30 MIN PRN, S tarting on Thu01/26/22 at 0936, Until Thu01/31/22 at 1728, Low blood sugar, For BG 50-70 mg/dL: Oral treatment preferred: If able to drink, give 120 mL Juice or R egular (not diet) soda OR If NPO, give 15 gram glucose 40% oral gel massaged into buccal mucosa OR if unconscious or uncooperative, give 25 gram (250 mL) Dex trose 10% IV over 15 minutes per protocol OR, if no IV access, 1 mg Glucagon IM. * * For BG less than 50 mg/dL: Oral treatment preferred: If able to drink, give 240 mL Juice or Regu lar (not diet) soda OR If NPO, give 30 gram glucose 40% oral gel m assaged in buccal mucosa OR if unconscious or uncooperative, give 25 gram (250 mL) Dextrose 10% I V over 15 minutes per protocol OR, if no IV access, 1 mg Glucagon IM. Rech leon BG in 30 minutes. May repeat juice/soda, gel, dextrose or gluc agon once per episode. For persistent hypoglycemia, consider longer-acting treatment for the duration of the active insulin., Routine glucose (GLUTOSE) 40% oral geL 15-30 g, Buccal, EVERY 30 MIN PRN, Starting on 01/14 at 0936, Until Thu01/31/22 at 1728, Low blood sugar, For BG 50-70 mg/dL: Oral treatment preferred: If able to drink, give 120 mL Juice or R egular (not diet) soda OR If NPO, give 15 gram glucose 40% oral gel massaged into buccal mucosa OR if unconscious or uncooperative, give 25 gram (250 mL) Dex trose 10% IV over 15 minutes per protocol OR, if no IV access, 1 mg Glucagon IM. * * For BG less than 50 mg/dL: Oral treatment preferred: If able to drink, give 240 mL Juice or Regu lar (not diet) soda OR If NPO, give 30 gram glucose 40% oral gel m assaged in buccal mucosa OR if unconscious or uncooperative, give 25 gram (250 mL) Dextrose 10% I V over 15 minutes per protocol OR, if no IV access, 1 mg Glucagon IM. Rech leon BG in 30 minutes. May repeat juice/soda, gel, dextrose or gluc agon once per episode. For persistent hypoglycemia, consider longer-acting treatment for the duration of the active insulin. 1 tube contains 15 grams of glucose (net weig ht of tube = 37.5 grams., Routine heparin (porcine) (5,000 units/1 mL) Given 01/29/2022 8:11 PM ED T 5,000 Units subcutaneous injection 5,000 Units 5,000 Units, Subcutaneous, EVERY 12 HOURS SCHEDULED (2 times per day), First dose on Thu01/26/22 at 1045, Until Discontinued, Routine Given 01/29/2022 8:07 AM EDT 5,000 Units Given 01/28/2022 9:17 PM EDT 5,000 Units hydrALAZINE (Apresoline) (20 mg/mL) injection Given 12:18 AM EDT 10 mg 10-20 mg 10-20 mg, Intravenous, EVERY 4 HOURS PRN, Starting on 01/27/22 at 0637, Until Myrna 01/30/22 at 0802, High Blood Pressure, SBP > 150, Please give 10mg hydralazine for SBP>150; if after 20 minutes SBP>150 please give another 10mg for a total of 20mg Given 01/28/2022 11:05 AM EDT 10 mg Given 01/28/2022 5:03 AM EDT 10 mg hydrALAZINE (Apresoline) tablet 25 mg Given 01/26/2022 9:03 PM EDT 25 mg 25 mg, Oral, 3 TIMES DAILY, First dose on 01/25/22 at 1015, Until Discontinued, For SBP>140, hold if SBP<140, Routine Given 01/26/2022 2:22 PM EDT 25 mg Given 01/26/2022 8:47 AM EDT 25 mg hydrALAZINE (Apresoline) tablet 25 mg Given 01/26/2022 9:50 PM EDT 25 mg 25 mg, Oral, ONCE, 1 dose, On 01/26/22 at 2230, Take with Food, Routine hydrALAZINE (Apresoline) tablet 50 mg Given 01/25/2022 6:41 PM EST 50 mg 50 mg, Oral, ONCE, 1 dose, On 01/25/22 at 1915, Take with Food, Routine hydrALAZINE (Apresoline) tablet 50 mg Given 01/29/2022 8:11 PM EDT 50 mg 50 mg, Oral, 3 TIMES DAILY, First dose (after last modification) on 01/27/22 at 0900, Until Discontinued, For SBP>140, hold if SBP<140, Routine Given 01/29/2022 2:25 PM EDT 50 mg Given 01/29/2022 8:07 AM EDT 50 mg insulin lispro (HumaLOG;Admelog) (100 Given 01/31/2022 11:52 AM EDT 1 Units unit/mL) subcutaneous injection vial 1-6 Units 1-6 Units, Subcutaneous, 3 TIMES DAILY BEFORE MEALS, First dose on 01/26/22 at 1130, Until Discontinued, CORRECTION BOLUS [1-6 Units] Moderate Sliding Scale (BG in mg/dL): Correction factor 20 (1 unit of insulin is expected to drop the glucose 20 mg/dL) BG 140 - 160 Give 1 unit BG 161 - 180 Give 2 units BG 181 - 200 Give 3 units BG 201 - 220 Give 4 units BG 221 - 240 Give 5 units BG greater than 240, give 6 units and recheck BG in 2 hours. - If recheck BG is LESS than 240, give no insulin and resume schedule. - If recheck BG is GREATER than 240, give 6 units and repeat BG in 2 hours (no more than 3 times) & call for new insulin orders. DO NOT hold if NPO, unless specifically directed to do so by written order. Per Blood Glucose Monitoring Policy, re-check a BG of > 240 mg/dL in 2 hours., Routine Given 01/31/2022 7:44 AM EDT 1 Units Given 01/30/2022 4:41 PM EDT 1 Units insulin regular (Myxredlin) (1 Bolus from Bag 01/22/2022 9:22 AM EST 8 Units unit/mL) bolus from infusion 0-16 Units 0-16 Units, Intravenous, PER INSULIN PROTOCOL, Starting on Thu01/21/22 at 1235, Until Thu01/26/22 at 0936, Per Protocol, BOLUS order. Type 2 No Initial bolus. Adjustment bolus per insulin infusion protocol: IV insulin Bolus scale: For BG in mg/dL (250-299 = 8 units, 300-359 = 12 units, greater than 360 = 16 units), Routine Bolus from Bag 01/22/2022 5:49 AM EST 8 Units Bolus from Bag 01/22/2022 3:17 AM EST 8 Units insulin regular Rate/Dose Verify 01/26/2022 8:00 AM 0.5 Units/hr 0.5 mL/hr (Myxredlin) (1 unit/mL) EDT in sodium chloride 0.9% 100 mL infusion 0.5-16 Units/hr (0.5-16 mL/hr), Intravenous, CONTINUOUS, Starting on Thu01/21/22 at 1330, Until Thu01/26/22 at 0936, Type 2 diabetes. Current blood glucose 140 - 179 Titration- aim for target range of 140 - 180 mg/dL. Check BG every hour unless otherwise indicated. [[ No initial bolus. Begin continuous infusion at 2 units/hour. ]] If BG at the time the infusion is started outside of the CURRENT BLOOD GLUCOSE range above, contact MD for new starting rate/bolus order. When infusion is paused, turn it back on as soon as possible per protocol. If BG at the time the infusion is started is outside of the CURRENT BLOOD GLUCOSE range above, contact provider for new starting rate/bolus order. Current BG less than 80 - Stop insulin. If BG less than 70, treat per hypoglycemia protocol. Re-check BG in 30 minutes and as soon as BG is greater than 80, restart with rate 50% of previous rate. If infusion stopped after previous rate had been 0.5 unit/hour, recheck every hour and when BG greater than 100 and higher than last test restart at 0.5 unit/hour. IF INFUSION IS PAUSED, TURN IT BACK ON SOON POSSIBLE, PER PROTOCOL. Current BG 80 - 139 - If BG dropped 10 mg/dL or more since last test, decrease rate by 50% and re-check in 30 minutes. Otherwise, decrease rate by 0.5 units/hour. Current BG 140 - 180 - If BG dropped 50 mg/dL or more since last test, decrease rate by 1 unit/hour. Otherwise, maintain same rate. Current BG 181 - 220 - If BG is lower than last test, maintain same rate. Otherwise, increase rate by 0.5 units/hour. Current BG 221 - 250 - If BG dropped 30 mg/dL or more since last test, maintain same rate. Otherwise, increase rate by 1 unit/hour. Current BG greater than 250 - Increase rate by 1 unit/hour AND bolus with Regular insulin IV as per IV Bolus Scale. Re-check BG in 30 minutes. THE FIRST DOSE OF SC INSULIN OUGHT TO BE ADMINISTERED BEFORE DISCONTINUING THE INFUSION. AN OVERLAP OF 2-3 HOURS IS RECOMMENDED. Continue to monitor the BG hourly., Routine Rate/Dose Verify 01/26/2022 6:23 AM EDT 0.5 Units/hr 0.5 mL/hr Rate/Dose Verify 01/26/2022 3:00 AM EDT 0.5 Units/hr 0.5 mL/hr lactated ringers infusion Rate/Dose Verify 01/23/2022 6:00 AM 50 mL/hr 50 mL/hr 0-250 mL/hr, Intravenous, EST CONTINUOUS, Starting on Thu01/21/22 at 1530, Until Thu01/24/22 at 1418, Bolus 250 mL every 5 minutes as needed for volume replacement to maintain cardiac index greater than or equal to 2.0 L/min/M2. Maximum volume 2 L. Call refrigeration houseman for additional fluid orders: pager #[phone]. Rate/Dose Verify 01/23/2022 4:00 AM EST 50 mL/hr 50 mL/hr Rate/Dose Verify 01/23/2022 2:00 AM EST 50 mL/hr 50 mL/hr magnesium hydroxide (Milk of Magnesia) (240 Given 01/29/2022 8:12 AM EDT 10 mLs mg/mL) oral liquid 10 mL 10 mL, Oral, DAILY, First dose on Thu01/23/22 at 0900, Until Discontinued, Post-op day 2. Do not use with renal insufficiency., Routine Given 01/28/2022 8:08 AM EDT 10 mLs Given 01/27/2022 8:28 AM EDT 10 mLs magnesium sulfate 2 g in sterile water New Bag 01/23/2022 6:46 AM EST 2 g 25 mL/hr 50 mL infusion 2 g, Intravenous, ONCE, 1 dose, On Thu01/23/22 at 0730, Administer over 120 Minutes melatonin tablet 6 mg Given 01/30/2022 8:41 PM EDT 6 mg 6 mg, Oral, NIGHTLY, First dose on Thu01/26/22 at 2100, Until Discontinued, Routine Given 01/29/2022 8:11 PM EDT 6 mg Given 01/28/2022 9:18 PM EDT 6 mg metFORMIN (Glucophage) tablet 1,000 mg Given 01/31/2022 7:44 AM EDT 1,000 mg 1,000 mg, Oral, 2 TIMES DAILY WITH MEALS, First dose on Thu01/30/22 at 0915, Until Discontinued, Routine Given 01/30/2022 4:40 PM EDT 1,000 mg Given 01/30/2022 8:57 AM EDT 1,000 mg methylPREDNISolone sodium succinate New Bag 01/21/2022 2:45 PM EST 120 mg 108 mL/hr (PF) (SOLU-Medrol) 250 mg in sodium chloride 0.9% 54 mL infusion 250 mg, Intravenous, ONCE, 1 dose, On Thu01/21/22 at 1445, Administer over 30 Minutes, For one minute metoclopramide (Reglan) (5 mg/mL) injection Given 01/27/2022 12:46 PM EDT 10 mg 10 mg 10 mg, Intravenous, 4 TIMES DAILY BEFORE MEALS & NIGHTLY, First dose on Thu01/24/22 at 1645, Until Discontinued, Doses greater than 10mg should be diluted into 50ml NS. Given 01/27/2022 8:29 AM EDT 10 mg Given 01/26/2022 9:03 PM EDT 10 mg metoprolol (LOPRESSOR) injection 5 mg Given 01/26/2022 4:21 AM EDT 5 mg 5 mg, Intravenous, EVERY 6 HOURS, First dose on Thu01/24/22 at 1445, Until Discontinued, Hold for HR<60. Hold for SBP<90 Given 01/25/2022 8:40 PM EST 5 mg Left Arm Given 01/25/2022 2:13 PM EST 5 mg metoprolol (LOPRESSOR) injection 5 mg Given 01/28/2022 6:16 AM EDT 5 mg 5 mg, Intravenous, EVERY 6 HOURS PRN, Starting on Thu01/26/22 at 1600, Until Thu01/30/22 at 0802, Elevated Heart Rate, for HR>100 and for SBP>150, Give if SBP>150 and/or HR>100 if not controlled on PO meds. Hold for HR<60. Hold for SBP<90 Given 01/27/2022 6:49 PM EDT 5 mg Given 01/26/2022 11:13 PM EDT 5 mg metoprolol (LOPRESSOR) injection 7.5 mg Given 01/26/2022 2:22 PM EDT 7.5 mg 7.5 mg, Intravenous, EVERY 6 HOURS, First dose (after last modification) on Thu01/26/22 at 0900, Until Discontinued, Hold for HR<60. Hold for SBP<90 Given 01/26/2022 8:47 AM EDT 7.5 mg metoprolol tartrate (Lopressor) tablet 1 00 mg Given 01/31/2022 8:26 AM EDT 100 mg 100 mg, Oral, EVERY 12 HOURS SCHEDULED (2 times per day), First dose (after last modification) on Thu01/28/22 at 0900, Until Discontinued, Hold for HR<60. Hold for SBP<90, Routine Given 01/30/2022 8:41 PM EDT 100 mg Given 01/30/2022 8:51 AM EDT 100 mg metoprolol tartrate (Lopressor) tablet 2 5 mg Given 01/25/2022 10:18 PM EST 25 mg 25 mg, Oral, ONCE, 1 dose, On Thu01/25/22 at 2300, Routine metoprolol tartrate (Lopressor) tablet 5 0 mg Given 01/26/2022 9:03 PM EDT 50 mg 50 mg, Oral, EVERY 12 HOURS SCHEDULED (2 times per day), First dose (after last modification) on Thu01/26/22 at 2100, Until Discontinued, Hold for HR<60. Hold for SBP<90, Routine metoprolol tartrate (Lopressor) tablet 7 5 mg Given 01/27/2022 8:01 PM EDT 75 mg 75 mg, Oral, EVERY 12 HOURS SCHEDULED (2 times per day), First dose (after last modification) on 01/27/22 at 0900, Until Discontinued, Hold for HR<60. Hold for SBP<90, Routine Given 01/27/2022 8:27 AM EDT 75 mg midazolam (pf) (Versed) (1 mg/mL) injection 4 Given 01/22/20 2:21 PM EST 4 mg mg 4 mg, Intravenous, ONCE, 1 dose, On Thu01/21/22 at 1500, Routine midazolam (PF) (Versed) 1 mg/mL injectio n 1 dose, Starting on Thu01/21/22 at 1358, Until Thu01/21/22 at 1421, Letty Alexander: marahinepercy override milrinone (Primacor) Rate/Dose Verify 01/24/2022 8:00 0.125 mcg/kg/ min 3.8 mL/hr (0.2 mg/mL) in dextrose AM EST 5% 100 mL infusion 0-0.375 mcg/kg/min ? 102.5 kg (0-11.5313 mL/hr, rounded to 0-11.5 mL/hr), Intravenous, CONTINUOUS, Starting on Thu01/21/22 at 1800, Until Thu01/25/22 at 1039, Titrate to keep cardiac index greater than 2.0 L/min/M2. Adjust starting rate for renal insufficiency. Start at 0.125 mcg/kg/min and adjust dose to 0.25 mcg/kg/min after 30 minutes, then to 0.375 mcg/kg/min after 30 minutes if goal not achieved. Dose not to exceed 0.375 mcg/kg/minute. Rate/Dose Verify 01/24/2022 6:00 AM EST 0.125 mcg/kg/min 3.8 mL/hr Rate/Dose Verify 01/24/2022 4:00 AM EST 0.125 mcg/kg/min 3.8 mL/hr milrinone (Primacor) 20 mg/100 mL infusi on 1 dose, Starting on Thu01/21/22 at 1705, Until Thu01/21/22 at 1710, Kirill Padron (LIBRA): cabinet override nitroGLYcerin (200 Rate/Dose Change 01/27/2022 1:31 PM 25 mcg/min 7.5 mL/hr mcg/mL) in dextrose 5% EDT 250 mL infusion 0-200 mcg/min (0-60 mL/hr), Intravenous, CONTINUOUS, Starting on Thu01/21/22 at 1330, Until Thu01/27/22 at 1429, For hypertension. Titrate to keep systolic blood pressure less than 140 mmHg. Initiate at 25 mcg/min. Adjust by 25 mcg/min every 5 minutes. Dose not to exceed 200 mcg/minute., Routine Rate/Dose Change 01/27/2022 11:02 AM EDT 50 mcg/min 15 mL/hr Rate/Dose Change 01/27/2022 10:10 AM EDT 100 mcg/min 30 mL/hr NORepinephrine (Levophed) Rate/Dose Verify 01/23/2022 2:00 AM 2 mcg /min 7.5 mL/hr (16 mcg/mL) in dextrose EST 5% 250 mL infusion 0-30 mcg/min (0-112.5 mL/hr), Intravenous, CONTINUOUS, Starting on Thu01/21/22 at 1330, Until 01/25/22 at 1039, Titrate to keep systolic blood pressure greater than 90 mmHg. Start at 2 mcg/minute and adjust by 2 mcg/min every 3 minutes. Dose not to exceed 30 mcg/minute. Begin if PHENYLephrine and/or vasopressin ineffective. Call pager # [phone] if initiated., Routine Rate/Dose Change 01/23/2022 1:47 AM EST 2 mcg/min 7.5 mL/hr Rate/Dose Change 01/23/2022 12:58 AM EST 3 mcg/min 11.3 mL/hr ondansetron (pf) (Zofran) (2 mg/mL) injection Given 12:00 PM EST 4 mg 4 mg 4 mg, Intravenous, ONCE, 1 dose, On Thu01/24/22 at 1200 pantoprazole (Protonix) injection 40 mg Given 01/26/2022 8:46 AM EDT 40 mg 40 mg, Intravenous, DAILY, First dose on Thu01/21/22 at 1330, Until Discontinued, Reconstitute with 10 mL of normal saline to a concentration of 4 mg/mL and infuse slowly over 2 minutes. , Routine Given 01/25/2022 8:37 AM EST 40 mg Given 01/24/2022 8:36 AM EST 40 mg pantoprazole EC (Protonix) tablet 40 mg Given 01/31/2022 8:26 AM EDT 40 mg 40 mg, Oral, DAILY, First dose on Thu01/21/22 at 1330, Until Discontinued, DO NOT CRUSH OR OPEN If unable to take PO, may give IV, Routine Given 01/30/2022 8:52 AM EDT 40 mg Given 01/29/2022 8:12 AM EDT 40 mg polyethylene glycoL (Miralax) packet 17 g Given 01/29/2022 8:07 AM EDT 17 g 17 g, Oral, DAILY, First dose on Thu01/27/22 at 0900, Until Discontinued, Routine Given 01/28/2022 8:08 AM EDT 17 g Given 01/27/2022 8:28 AM EDT 17 g potassium chloride 20 mEq in New Bag 01/24/2022 1:29 PM EST 20 mEq 100 mL/hr sterile water 100 mL infusion 20 mEq, Intravenous, EVERY 1 HOUR PRN, Starting on Thu01/21/22 at 1235, Until Thu01/27/22 at 1429, Administer over 60 Minutes, hypokalemia, Administer for a serum potassium (mMol/L) of 3.9 - 4 See instructions for Potassium Protocol in online policies. New Bag 01/24/2022 11:51 AM EST 20 mEq 100 mL/hr potassium chloride 20 mEq in New Bag 01/27/2022 1:55 PM EDT 20 mEq 100 mL/hr sterile water 100 mL infusion 20 mEq, Intravenous, EVERY 1 HOUR PRN, Starting on Thu01/21/22 at 1235, Until Thu01/27/22 at 1429, Administer over 60 Minutes, hypokalemia, Administer 2 doses for a serum potassium (mMol/L) of 3.3 - 3.8 See instructions for Potassium Protocol in online policies. New Bag 01/27/2022 5:18 AM EDT 20 mEq 100 mL/hr New Bag 01/27/2022 3:57 AM EDT 20 mEq 100 mL/hr potassium chloride 20 mEq in New Bag 01/27/2022 12:52 PM EDT 20 mE q 100 mL/hr sterile water 100 mL infusion 20 mEq, Intravenous, EVERY 1 HOUR PRN, Starting on Thu01/21/22 at 1235, Until Thu01/27/22 at 1429, Administer over 60 Minutes, hypokalemia, Administer 3 doses for a serum potassium (mMol/L) of 2.8 - 3.2 See instructions for Potassium Protocol in online policies. New Bag 01/24/2022 9:11 PM EST 20 mEq 100 mL/hr potassium chloride ER (K-Dur/Klor-Con) tablet Given 8:12 AM EDT 20 mEq 20 mEq 20 mEq, Oral, ONCE, 1 dose, On Thu01/29/22 at 0845, 20 mEq tablet may be dissolved in water for administration, Routine potassium chloride ER (K-Dur/Klor-Con) tablet Given 8:09 AM EDT 40 mEq 40 mEq 40 mEq, Oral, ONCE, 1 dose, On Thu01/28/22 at 0845, 20 mEq tablet may be dissolved in water for administration, Routine potassium chloride ER (K-Dur/Klor-Con) tablet Given 8:51 AM EDT 40 mEq 40 mEq 40 mEq, Oral, ONCE, 1 dose, On Thu01/30/22 at 0930, Routine potassium chloride ER (K-Dur/Klor-Con) tablet Given 7:36 AM EDT 40 mEq 40 mEq 40 mEq, Oral, ONCE, 1 dose, On Thu01/30/22 at 0730, Routine potassium chloride ER (K-Dur/Klor-Con) tablet Given 7:44 AM EDT 40 mEq 40 mEq 40 mEq, Oral, ONCE, 1 dose, On Thu01/31/22 at 0800, Routine potassium, sodium phosphates (Neutra-Phos) Given 01/25/2022 8:39 PM EST 1.5 g 280-160-250 mg oral packet 1.5 g 1.5 g, Oral, 2 TIMES DAILY, 2 doses, First dose on Thu01/25/22 at 0900, Last dose on Thu01/25/22 at 2100, Take with full glass of water, Routine Given 01/25/2022 8:42 AM EST 1.5 g propofoL (Diprivan) (10 Rate/Dose Verify 01/24/2022 8:00 AM 30 mcg/ kg/min 18.5 mL/hr mg/mL) infusion EST 0-50 mcg/kg/min ? 102.5 kg (0-30.75 mL/hr, rounded to 0-30.8 mL/hr), Intravenous, CONTINUOUS, Starting on Thu01/21/22 at 1330, Until Thu01/24/22 at 2155, Titrate to sedation level of RASS Goal (-) 1. Start at 10 mcg/kg/min, adjust rate by 5 mcg/kg/min every 3 minutes. Dose not to exceed 50 mcg/kg/minute. Discontinue upon extubation., Routine Rate/Dose Change 01/24/2022 6:41 AM EST 30 mcg/kg/min 18.5 mL/hr Rate/Dose Change 01/24/2022 6:00 AM EST 40 mcg/kg/min 24.6 mL/hr QUEtiapine (SEROquel) tablet 25 mg Given 01/24/2022 10:11 PM EST 25 mg 25 mg, Oral, NIGHTLY, First dose on Thu01/24/22 at 2245, Until Discontinued, Routine senna-docusate (Pericolace) 8.6-50 mg per Given 2021 8:11 PM EDT 2 tablets tablet 2 tablet 2 tablet, Oral, DAILY, First dose on Thu01/22/22 at 2100, Until Discontinued, Post-op day 1, Routine Given 01/28/2022 9:19 PM EDT 2 tablets Given 01/27/2022 8:01 PM EDT 2 tablets sodium bicarbonate 8.4 % (1 meq/ml) IV Given 01/21/2022 10:59 PM EST 50 mEq solution 50 mEq 50 mEq, Intravenous, ONCE, 1 dose, On Thu01/21/22 at 2315, Warning Vesicant/Irritant Medication , Routine sodium bicarbonate 8.4 % (1 meq/ml) IV Given 01/21/2022 10:59 PM EST 50 mEq solution 50 mEq 50 mEq, Intravenous, ONCE, 1 dose, On Thu01/21/22 at 2315, Warning Vesicant/Irritant Medication , Routine sodium bicarbonate 8.4 % (1 meq/ml) IV Given 01/22/2022 2:36 AM EST 50 mEq solution 50 mEq 50 mEq, Intravenous, ONCE, 1 dose, On Thu01/22/22 at 0330, Warning Vesicant/Irritant Medication , Routine sodium chloride 0.9 % (flush) (BD PosiFlush Given 01/31/2022 7:4 4 AM EDT 5 mLs Normal Saline 0.9) flush 5 mL 5 mL, Intravenous, EVERY 8 HOURS, First dose on Thu01/27/22 at 1515, Until Discontinued, Routine Given 01/30/2022 3:15 PM EDT 5 mLs Given 01/29/2022 8:12 PM EDT 5 mLs sodium chloride 0.9% infusion New Bag 01/21/2022 1:15 PM EST 500 mL/hr 500 mL/hr 0-500 mL/hr, Intravenous, CONTINUOUS, Starting on Thu01/21/22 at 1330, Until Thu01/21/22 at 1432, Bolus 250 mL every 5 minutes as needed for volume replacement to maintain cardiac index greater than or equal to 2.0 L/min/M2. Maximum volume 2 L. Call refrigeration houseman for additional fluid orders: pager #[phone]. New Bag 01/21/2022 12:15 PM EST 1 mL/hr 1 mL/hr sodium chloride 0.9% Rate/Dose Verify 01/27/2022 6:00 AM 30 mL/hr 3 0 mL/hr infusion EDT 10-30 mL/hr, Intravenous, DAILY PRN, Starting on Thu01/21/22 at 1235, Until Myrna 01/30/22 at 0803, Side port TKO rate, per [facility] nursing protocol. Rate/Dose Verify 01/27/2022 4:00 AM EDT 30 mL/hr 30 mL/hr Rate/Dose Verify 01/27/2022 2:00 AM EDT 30 mL/hr 30 mL/hr sodium chloride 0.9% Rate/Dose Verify 01/27/2022 6:00 AM 30 mL/hr 3 0 mL/hr infusion EDT 10-30 mL/hr, Intravenous, DAILY PRN, Starting on e 01/21/22 at 1235, Until Myrna 01/30/22 at 0803, Side port TKO rate, per [facility] nrusing protocol. Rate/Dose Verify 01/27/2022 4:00 AM EDT 30 mL/hr 30 mL/hr Rate/Dose Verify 01/27/2022 2:00 AM EDT 30 mL/hr 30 mL/hr vasopressin (Vasostrict) 20 unit/100 mL (0.2 unit/mL) infusion 1 dose, Starting on Thu01/21/22 at 1338, Until 01/21/22 at 1345, Emely Quintanilla.: cabinet override vasopressin 20 units in Rate/Dose Verify 01/23/2022 2:00 0.01 Units/m in 3 mL/hr sodium chloride 0.9% 100 AM EST mL infusion 0.04-0.1 Units/min (12-30 mL/hr), Intravenous, CONTINUOUS, Starting on 01/21/22 at 2115, Until 01/25/22 at 1039, Titrate to keep systolic blood pressure greater than 90 mmHg. Start at 0.04 units/min and adjust rate by 0.005 units/min every 10 minutes. Dose not to exceed 0.4 units/min. Rate/Dose Change 01/23/2022 1:09 AM EST 0.01 Units/min 3 mL/hr Rate/Dose Verify 01/23/2022 12:00 AM EST 0.02 Units/min 6 mL/hr documented in this encounter Active and Recently Administered Medications Times are shown in EDT. Scheduled Medication Order 01/29/2022 01/30/2022 01/31/2022 acetaminophen (Tylenol) tablet 1,000 mg 0616 (Given - Provider: Vivian Tyson RN)1341 (Given - Provider: Dereje Chong RN)4686 (Given - Provider: Amberly Toth ESTEFANIA) 0600 (Not Given - Provider: Elizabeth ayoub RN - Reason: Patient/family refused)1400 (Not Given - Provider: Pili Yan RN - Reason: Patient/family refused)2200 (Not Given - Provider: Elizabeth Leija RN - Reason: Patient/family refused) 0600 (Not Given - Provider: Elizabeth ayoub RN - Reason: Patient/family refused)1400 (Not Given - Provider: Berenice Salazar RN - Reason: Patient/family refused) 1,000 mg, Oral, EVERY 8 HOURS SCHEDULED, First dose on Thu01/25/22 at 2000, Until Discontinued amLODIPine (Norvasc) tablet 10 mg 0812 (Given - Provider: Se vazquez Chong RN) 0852 (Given - Provider: Pili Yan, ESTEFANIA) 0826 (Given - Provider: Berenice Salazar, ESTEFANIA) 10 mg, Oral, DAILY, First dose (after la st modification) on Thu01/27/22 at 0900, Until Discontinued, Routine aspirin chewable tablet 81 mg(Linked Group 1) 0807 (Gi ryan - Provider: Dereje Chong, ESTEFANIA) 0851 (Given - Provider: Pili Yan, ESTEFANIA) 0826 (Give n - Provider: Berenice Salazar, ESTEFANIA) 81 mg, Oral, DAILY, First dose on 07/07 at 1330, Until Discontinued, Start on Post-Op Day 0, please give within 6 hours upon arrival to Unit. If unable to take PO, may give IL, Routine aspirin suppository 300 mg(Linked Group 1) 0807 (See A lternative - Provider: Dereje Chong RN) 0851 (See Alternative - Provider: Pili Yan, ESTEFANIA) 0826 (See Alternative - Provider: Berenice Salazar, ESTEFANIA) 300 mg, Rectal, DAILY, First dose on Thu01/21/22 at 1330, Until Discontinued, Start on Post-Op Day 0, please give within 6 hours upon arrival to Unit. Give IL if unable to take PO, Routine atorvastatin (Lipitor) tablet 80 mg 1627 (Given - Prov ider: Yuko Schmidt RN) 1640 (Given - Provider: Pili Yan RN) 80 mg, Oral, EVERY EVENING, First dose o n Thu01/21/22 at 1700, Until Discontinued, Routine cloNIDine (Catapres) tablet 0.1 mg (CANCELED) 806 (Gi ryan - Provider: Dereje Chong, ESTEFANIA)2010 (Given - Provider: Elizabeth Leija, ESTEFANIA) 0.1 mg, Oral, 2 TIMES DAILY, First dose on Thu01/27/22 at 0900, Until Discontinued, Routine cloNIDine (Catapres) tablet 0.2 mg 08 (Given - Provider: Pili Yan RN)2040 (Given - Provider: Elizabeth Leija, ESTEFANIA) 08 (Given - Provider: Berenice Salazar, ESTEFANIA) 0.2 mg, Oral, 2 TIMES DAILY, First dose (after last modification) on Thu01/30/22 at 0900, Until Discontinued, Routine furosemide (Lasix) tablet 20 mg 08 (Given - Provider: Dereje Chong RN) 08 (Given - Provider: Pili Yan RN) 825 (Given - Provider: Berenice Salazar, ESTEFANIA) 20 mg, Oral, DAILY, First dose on Thu at 0900, Until Discontinued, Routine heparin (porcine) (5,000 units/1 mL) sub cutaneous injection 5,000 Units (CANCELED) 806 (Given - Provider: Dereje Chong RN)2010 (Given - Provider: Elizabeth Leija, ESTEFANIA) 5,000 Units, Subcutaneous, EVERY 12 HOUR S SCHEDULED (2 times per day), First dose on Thu01/26/22 at 1045, Until Discontinued, Routine hydrALAZINE (Apresoline) tablet 50 mg (CANCELED) 806 (Given - Provider: Dereje Chong RN)1424 (Given - Provider: Dereje Chong, ESTEFANIA)2010 (Given - Provider: Elizabeth Leija, ESTEFANIA) 50 mg, Oral, 3 TIMES DAILY, First dose ( after last modification) on Thu01/27/22 at 0900, Until Discontinued, For SBP>140, hold if SBP<140, Routine insulin lispro (HumaLOG;Admelog) (100 un it/mL) subcutaneous injection vial 1-6 Units(Linked Group 2) 0808 (Given - Provider: Dereje Chong RN)1230 (Given - Provider: Dereje Chong RN)1627 (Given - Provider: Yuko Schmidt RN) 0730 (Not Given - Provider: Pili Yan RN - Reason: Order parameters not met)1157 (Given - Provider: Pili Yan RN)1641 (Given - Provider: Pili Yan RN) 0744 (Given - Provider: Berenice Salazar RN)1152 (Given - Provider: Berenice Salazar RN) 1-6 Units, Subcutaneous, 3 TIMES DAILY B EFORE MEALS, First dose on 01/26/22 at 1130, Until Discontinued, CORRECTION BOLUS [1-6 Units] Moderate Sliding Scale (BG in mg/dL): Correction factor 20 (1 unit of insulin is expected to drop the glucose 20 mg/dL) BG 140 - 160 Give 1 unit BG 161 - 180 Give 2 units BG 181 - 200 Give 3 units BG 201 - 220 Give 4 units BG 221 - 240 Give 5 units BG greater jignesh n 240, give 6 units and recheck BG in 2 hours. - If recheck BG is LESS than 240, give no insulin and resume schedule. - If recheck BG is GREATER than 240, give 6 units and repeat BG in 2 hours (no more than 3 times) & call for new insulin ord ers. DO NOT hold if NPO, unless specifically directed to do so by written order. Per Blood Glucose Monitoring Policy, re-check a BG of > 240 mg/dL in 2 hours., Routine magnesium hydroxide (Milk of Magnesia) (240 mg/mL) ora l liquid 10 mL 0812 (Given - Provider: Dereje Chong RN) 0900 (Not Given - Provider: Pili zuluaga RN - Reason: Patient/family refused) 0900 (Not Given - Provider: Berenice long RN - Reason: Patient/family refused) 10 mL, Oral, DAILY, First dose on Myrna 09/06 at 0900, Until Discontinued, Post- op day 2. Do not use with renal insufficiency., Routine melatonin tablet 6 mg 2010 (Given - Provider: Elizabeth seaman RN) 2040 (Given - Provider: Elizabeth Leija RN) 6 mg, Oral, NIGHTLY, First dose on Thu at 2100, Until Discontinued, Routine metFORMIN (Glucophage) tablet 1,000 mg 0 857 (Given - Provider: Pili Yan RN)1640 (Given - Provider: Pili Yan RN) 0744 (Given - Provider: Berenice Salazar RN) 1,000 mg, Oral, 2 TIMES DAILY WITH MEALS , First dose on Thu01/30/22 at 0915, Until Discontinued, Routine metoprolol tartrate (Lopressor) tablet 100 mg 08 (Gi ryan - Provider: Dereje Chong RN)2010 (Given - Provider: Elizabeth Leija RN) 08 (Given - Provider: Pili Yan RN)2040 (Given - Provider: Elizabeth Leija RN) 0826 (Given - Provider: Berenice Salazar RN) 100 mg, Oral, EVERY 12 HOURS SCHEDULED ( 2 times per day), First dose (after last modification) on Thu01/28/22 at 0900, Until Discontinued, Hold for HR<60. Hold for SBP<90, Routine pantoprazole EC (Protonix) tablet 40 mg 08 (See Alte rnative - Provider: Dereje Chong RN)0812 (Given - Provider: Dereje Chong RN) 0852 (Given - Provider: Pili Yan RN) 0826 (Given - Provider: Berenice Salazar RN) 40 mg, Oral, DAILY, First dose on 07/07 at 1330, Until Discontinued, DO NOT CRUSH OR OPEN If unable to take PO, may give IV, Routine polyethylene glycoL (Miralax) packet 17 g 806 (Given - Provider: Dereje Chong RN) 0900 (Not Given - Provider: Pili zuluaga RN - Reason: Patient/family refused) 0900 (Not Given - Provider: Berenice long RN - Reason: Patient/family refused) 17 g, Oral, DAILY, First dose on 01/14 at 0900, Until Discontinued, Routine potassium chloride ER (K-Dur/Klor-Con) tablet 20 mEq ( COMPLETED) 0812 (Given - Provider: Dereje Chong, ESTEFANIA) 20 mEq, Oral, ONCE, 1 dose, On Thu at 0845, 20 mEq tablet may be dissolved in water for administration, Routine potassium chloride ER (K-Dur/Klor-Con) tablet 40 mEq (COMPLE KAPIL) 0851 (Given - Provider: Pili Yan, ESTEFANIA) 40 mEq, Oral, ONCE, 1 dose, On Thu01/30/22 at 0930, Routine potassium chloride ER (K-Dur/Klor-Con) tablet 40 mEq (COMPLE KAPIL) 0736 (Given - Provider: Pili Yan, RN) 40 mEq, Oral, ONCE, 1 dose, On Thu01/30/22 at 0730, Routine potassium chloride ER (K-Dur/Klor-Con) tablet 40 mEq (COMPLETED) 0744 (Given - Provider: Berenice Salazar RN) 40 mEq, Oral, ONCE, 1 dose, On Thu01/31/22 at 0800, Routine senna-docusate (Pericolace) 8.6-50 mg per tablet 2 tab let 2010 (Given - Provider: Elizabeth Leija RN) 2099 (Not Given - Provider: Elizabeth Leija RN - Reason: Patient/family refused) 2 tablet, Oral, DAILY, First dose on Thu01/22/22 at 2100, Until Discontinued, Post-op day 1, Routine sodium chloride 0.9 % (flush) (BD PosiFlush Normal Sung ine 0.9) flush 5 mL 0218 (Given - Provider: Vivian Tyson, ESTEFANIA)0617 (Given - Provider: Vivian Tyson, RN)1430 (Given - Provider: Dereje Chong, RN)2011 (Given - Provider: Elizabeth Leija RN) 0715 (Not Given - Provider: Elizabeth ayoub RN - Reason: Patient/family refused)1515 (Given - Provider: Pili Yan, ESTEFANIA)2315 (Not Given - Provider: Elizabeth Leija RN - Reason: Patient/family refused) 0744 (Given - Provider: Berenice Salazar RN)1515 (Due) 5 mL, Intravenous, EVERY 8 HOURS, First dose on 01/27/22 at 1515, Until Discontinued, Routine 2315 (Not Given - Provider: Elizabeth ayoub RN - Reason: Patient/family refused) PRN Medication Order 01/29/2022 01/30/2022 01/31/2022 bisacodyL (Dulcolax) suppository 10 mg 10 mg, Rectal, DAILY PRN, Starting on Fr i 01/24/22 at 0000, Until Thu01/31/22 at 1728, Constipation, Starting post-op day 3., Routine dextrose 10% infusion(Linked Group 3) 250 mL, at 1,000 mL/hr, Intravenous, SELVIN RY 30 MIN PRN, Starting on 01/26/22 at 0936, Until Thu01/31/22 at 1728, For BG 50-70 mg/dL: Oral treatment preferred: If able to drink, give 120 mL Juice or Regular (not diet) soda OR If NPO, give 15 gram glucose 40% oral gel massaged into buccal mucosa OR if unconscious or uncooperative, give 25 gram (250 mL) Dextrose 10% IV over 15 minutes per protocol O R, if no IV access, 1 mg Glucagon IM. For BG less than 50 mg/dL: Oral treatment preferred: If able to drink, give 240 mL Juice or Regular (not diet) soda OR If NPO, give 30 gram glucose 40% oral gel massaged in buccal mucosa OR if unconsci ous or uncooperative, give 25 gram (250 mL) Dextrose 10% IV over 15 minutes per protocol OR, if no IV access, 1 mg Glucagon IM. Recheck BG in 30 minutes. May re peat juice/soda, gel, dextrose or glucag on once per episode. For persistent hypoglycemia, consider longer-acting treatment for the duration of the active insulin. glucagon (Glucagen) (1 mg/mL) injection solution 1 mg(Linked José Miguel up 3) 1 mg, Intramuscular, EVERY 30 MIN PRN, S tarting on 01/26/22 at 0936, Until Thu01/31/22 at 1728, Low blood sugar, For BG 50-70 mg/dL: Oral treatment preferred: If able to drink, give 120 mL Juice o r Regular (not diet) soda OR If NPO, giv e 15 gram glucose 40% oral gel massaged into buccal mucosa OR if unconscious or uncooperative, give 25 gram (250 mL) Dextrose 10% IV over 15 minutes per protocol OR, if no IV access, 1 mg Glucagon IM. * * For BG less than 50 mg/dL: Oral treatment preferred: If able to drink, give 240 mL Juice or Regular (not diet) soda OR If NPO, give 30 gram glucose 40% oral gel massaged in buccal mucosa OR if unconsc ious or uncooperative, give 25 gram (250 mL) Dextrose 10% IV over 15 minutes per protocol OR, if no IV access, 1 mg Glucagon IM. Recheck BG in 30 minutes. May r epeat juice/soda, gel, dextrose or gluca david once per episode. For persistent hypoglycemia, consider longer-acting treatment for the duration of the active insulin., Routine glucose (GLUTOSE) 40% oral geL(Linked Group 3) 15-30 g, Buccal, EVERY 30 MIN PRN, Start ing on Thu01/26/22 at 0936, Until Thu01/31/22 at 1728, Low blood sugar, For BG 50-70 mg/dL: Oral treatment preferred: If able to drink, give 120 mL Juice or Re gular (not diet) soda OR If NPO, give 15 gram glucose 40% oral gel massaged into buccal mucosa OR if unconscious or uncooperative, give 25 gram (250 mL) Dextrose 10% IV over 15 minutes per protocol OR, if no IV access, 1 mg Glucagon IM. Fo r BG less than 50 mg/dL: Oral treatment preferred: If able to drink, give 240 mL Juice or Regular (not diet) soda OR If NPO, give 30 gram glucose 40% oral gel mas saged in buccal mucosa OR if unconscious or uncooperative, give 25 gram (250 mL) Dextrose 10% IV over 15 minutes per protocol OR, if no IV access, 1 mg Glucagon IM. Recheck BG in 30 minutes. May repea t juice/soda, gel, dextrose or glucagon once per episode. For persistent hypoglycemia, consider longer-acting treatment for the duration of the active insulin. 1 tube contains 15 grams of glucose (net weight of tube = 37.5 grams., Routine hydrALAZINE (Apresoline) (20 mg/mL) injection 10-20 mg (CAN ELED) 0018 (Given - Provider: Elizabeth Leija RN) 10-20 mg, Intravenous, EVERY 4 HOURS PRN , Starting on 01/27/22 at 0637, Until Myrna 01/30/22 at 0802, High Blood Pressure, SBP > 150, Please give 10mg hydralazine for SBP>150; if after 20 minutes SBP>150 please give another 10mg for a total of 20mg ondansetron (pf) (Zofran) (2 mg/mL) injection 4 mg 4 mg, Intravenous, EVERY 8 HOURS PRN, St arting on Thu01/21/22 at 1235, Until Thu01/31/22 at 1728, Nausea Linked Groups Order Group 1: aspirin chewable tablet 81 mgJump to med 81 mg, Oral, DAILY, First dose on 07/07 at 1330, Until Discontinued
Start on Post-Op Day 0, please give within 6 hours upon arrival to Unit. If unable to take PO, may give IL
Routine Or aspirin suppository 300 mgJump to med 300 mg, Rectal, DAILY, First dose on Thu01/21/22 at 1330, Until Discontinued
Start on Post-Op Day 0, please give within 6 hours upon arrival to Unit. Give IL if unable to take PO
Routine Group 2: POCT Fingerstick Glucose (CANCELED) Routine, 4 TIMES DAILY BEFORE MEALS & AT BEDTIME, First occurrence on Thu01/26/22 at 1100, Until Specified
Consider choosing FOUR TIMES A DAY BEFORE MEALS AND AT BEDTIME as frequency fo r: Patients who have a good hypoglycemia awareness: -Patients who are eating meals during the day and sleeping at night -Patient who are otherwise stable And insulin lispro (HumaLOG;Admelog) (100 unit/mL) subcutaneous injection vial 1-6 UnitsJump to med 1-6 Units, Subcutaneous, 3 TIMES DAILY B EFORE MEALS, First dose on Thu01/26/22 at 1130, Until Discontinued
CORRECTION BOLUS [1-6 Units] Moderate Sliding Scale (BG in mg/dL): Correc tion factor 20 (1 unit of insulin is exp ected to drop the glucose 20 mg/dL) BG 140 - 160 Give 1 unit BG 161 - 180 Give 2 units BG 181 - 200 Give 3 units &nbsp ;BG 201 - 220 Give 4 units BG 221 - 240 Give 5 units BG greater than 240, give 6 units and recheck BG in 2 hours. - If recheck BG is LESS than 240, give no insulin and resu me schedule. - If recheck BG is GR EATER than 240, give 6 units and repeat BG in 2 hours (no more than 3 times) & call for new insulin orders. DO NOT hold if NPO, un less specifically directed to do so by yoni schilling order. Per Blood Glucose Monitoring Policy, re-check a BG of > 240 mg/dL in 2 hours.
Routine Group 3: glucose (GLUTOSE) 40% oral geLJump to med 15-30 g, Buccal, EVERY 30 MIN PRN, Start ing on 01/26/22 at 0936, Until 01/31/22 at 1728, Low blood sugar
For BG 50-70 mg/dL: Oral treatment preferred: If able to drink, give 1 20 mL Juice or Regular (not diet) soda O R If NPO, give 15 gram glucose 40% oral gel massaged into buccal mucosa OR if unconscious or uncooperative, give 25 gram (250 mL) Dextrose 10% I V over 15 minutes per protocol OR, if no IV access, 1 mg Glucagon IM. For BG less than 50 mg/dL: Oral treatment preferred: If able to drink, give 240 mL Juice or Regular (n ot diet) soda OR If NPO, give 30 gram&nb sp;glucose 40% oral gel massaged in buccal mucosa OR if unconscious or uncooperative, give 25 gram (250 mL) Dextrose 10% IV over 15 minutes per&n bsp;protocol OR, if no IV access, 1 mg G lucagon IM. Recheck BG in 30 minutes. May repeat juice/soda, gel, dextrose or glucagon once per episode. For persistent hypoglycemia, consider longer-acting kuldip atment for the duration of the active insulin. 1 tube contains 15 grams of glucose (net weight of tube = 37.5 grams.
Routine Or dextrose 10% infusionJump to med 250 mL, at 1,000 mL/hr, Intravenous, SELVIN RY 30 MIN PRN, Starting on 01/26/22 at 0936, Until Thu01/31/22 at 1728
For BG 50-70 mg/dL: Oral treatment preferred: If able to drink, give&nbs p;120 mL Juice or Regular (not diet) sod a OR If NPO, give 15 gram glucose 40% oral gel massaged into buccal mucosa OR if unconscious or uncooperative, give 25 gram (250 mL) Dextrose 10 % IV over 15 minutes per protocol O R, if no IV access, 1 mg Glucagon IM. For BG less than 50 mg/dL: Oral treatment preferred: If able to drink, give 240 mL Juice or Regular (not diet) soda OR If NPO, give 30 gram glucose 40% oral gel massaged in buccal mucosa OR if unconscious or uncooperative, give 25 gram (250 mL) Dextrose 10% IV over 15 minutes per&am p;nbsp;protocol OR, if no IV access, 1 m g Glucagon IM. Recheck BG in 30 minutes. May repeat juice/soda, gel, dextrose or glucagon once per episode. For persiste nt hypoglycemia, consider longer-acting treatment for the duration of the active insulin.
Or glucagon (Glucagen) (1 mg/mL) injection solution 1 mgJump to med 1 mg, Intramuscular, EVERY 30 MIN PRN, S tarting on 01/26/22 at 0936, Until Thu01/31/22 at 1728, Low blood sugar
For BG 50-70 mg/dL: Oral treatment preferred: If able to drink, give&nb sp;120 mL Juice or Regular (not diet) so da OR If NPO, give 15 gram glucose 40% oral gel massaged into buccal mucosa OR if unconscious or uncooperative, give 25 gram (250 mL) Dextrose 1 0% IV over 15 minutes per protocol OR, if no IV access, 1 mg Glucagon IM. For BG less than 50 mg/dL: Oral treatment preferred: If able to drink, give 240 mL Juice or Regula r (not diet) soda OR If NPO, give 30 gra m glucose 40% oral gel massaged in buccal mucosa OR if unconscious or uncooperative, give 25 gram (250 mL) Dextrose 10% IV over 15 minutes per&a mp;nbsp;protocol OR, if no IV access, 1 mg Glucagon IM. Recheck BG in 30 minutes. May repeat juice/soda, gel, dextrose or glucagon once per episode. For persist ent hypoglycemia, consider longer-acting treatment for the duration of the active insulin.
Routine documented in this encounter Care Teams [employer] Relationship Specialty Start Date End Date Vladimir Muñoz DO PCP - General Family Medicine 01/19/18 [address] [place] [address] documented as of this encounter
--- OUTSIDE RECORDS SUMMARY | 2022-08-05 09:05 | XMS_ITS | Encounter Summary ---
:1955 Author Organization [facility] [place] [address] Care Team Providers Name Role Phone Vladimir Muñoz DO Primary Care Provider Reason for Visit Auth/Cert Specialty Diagnoses / [...] Expiration Date Visits Requ ested Visits Authorized [id number] 1 1 Encounter Details Date Type Department Care Team Description 01/21/2022 Surgery Main Operating Room Danny Jewell, @ CABG, USING ARTERIAL Gabrielle Espinosa MD GRAFT;SINGLE ARTERIAL Hospital [facility] GRAFT (WRVU 33.75) [facility] DR Uriarte [place] [address] SURGERY [phone] [place], [place] [address] (Wo rk) Social History Tobacco [...] Sign Reading Time Taken Comments Blood Pressure 141/80 01/21/2022 6:17 AM EST Pulse 80 01/21/2022 1:00 PM EST Temperature 35.2 ??C (95.4 ??F) 01/21/2022 12:15 PM EST Respiratory Rate 12 01/21/2022 1:00 PM EST Oxygen Saturation 100% 01/21/2022 1:00 PM EST Inhaled Oxygen Concentration - - Weight 102.5 kg (225 lb 15.5 oz) 01/21/2022 12:15 PM EST Height 182.9 cm (6' 0.01) 01/21/2022 12:15 PM EST Body Mass Index 29.65 01/21/2022 12:15 PM EST documented in this encounter Discharge Summaries Manan Lovelace PA - 01/31/2022 12:30 PM EDT Inpatient - Discharge Summary Patient Name: Vinod Ochoa Jr. Patient Age: 66 y.o. Birthdate: 1955 Language: Luxembourger Race: White Ethnicity: Not nor Admit Date: 01/21/2022 Discharge Date: 01/31/22 Attending Physician: Danny Jewell MD Follow-up Recommendations for Providers: ??? Please continue routine management of cardiovascular risk factors including blood pressure, lipids, glucose, etc. ??? Please note any changes to medications. ??? Patient to follow up with PCP, Vladimir G Toni, DO, in 1-2 weeks. ??? Patient to follow up with Welding Machine Operator/Tender, Dr. Hart, in 2 weeks. ??? Patient to follow up with Cardiac Surgeon, Dr. Danny Jewell, with a chest x-ray, EKG. ??? Patient to follow up with Patient to follow up with Allergy medicine, Otolaryngology and Speech Language pathology as scheduled. Inpatient Provider Contact Information: [facility] of Cardiac Surgery [facility] [address] FAX [phone] Discharge Diagnoses (Hospital Problems) Primary Diagnoses: CAD [...] CATHERIZATION stent placement ? ? PRG CATH [facility] CORONARY ART W/INJ FOR ANGIO W/R HEART CATH IMG S&I N/A 01/13/2022 CORONARY ANGIOGRAPHY; W RHC performed by Polo Beckham MD at [facility] CATH LABS ??? PRO CABG, ARTERIAL, SINGLE N/A 01/21/2022 @CABG, USING ARTERIAL GRAFT;SINGLE ARTERIAL GRAFT (WRVU 33.75) performed by Danny Jewell MD at [facility] MAIN OR ??? PRO CABG, ARTERY-VEIN, TWO N/A 01/21/2022 @CABG, TWO VENOUS GRAFTS & ARTERIAL GRAFT (WRVU 7.93) performed by Danny Jewell MD at [facility] MAIN OR ??? PRO ENDOSCOPY W/VIDEO-ASST VEIN HARVEST, CABG Right 01/21/2022 ENDOSCOPIC HARVEST VEIN(S) FOR CABG (WRVU 0.31) performed by Danny Jewell MD at [facility] MAIN OR Prior To Admission Medications Medications [...] below. He has treated hypertension, heis a niw-vybfzwp-cbysqheel diabetic. He has had no known previous [...] delirium Vinod Ochoa Jr. was admitted to [facility] on 01/21/2022 via the Same Day Program. [...] received high dose epi, steroids and H1 jojo. The rash improved and dissipated. Milrinone, epinephrine [...] Danny Jewell and/or the Cardiac Surgery Physician Senior Applications Developer Team may be reached at . Weight: [...] Dr. Danny Jewell. You may use a [place] Track or treadmill but avoid any pulling [...] friends, go to a movie, go to [employer], etc. Heavy activities: No hunting, skiing, jogging, snow shoveling, snowmobiling, lawn mowing, swimming, golf or tennis until after your return appointment with the surgeon. Do not ride motorcycles, [employer]'s tractors or horses. Avoid the use of [...] should resume a low fat, low cholesterol, [place] Heart [employer] Diet/Diabetic diet. Driving: No driving [...] office will schedule an appointment with your Welding Machine Operator/Tender, Dr. Pickens, in 2 weeks. ??? You have an appointment with your Cardiac Surgeon, Dr. Danny Jewell, with a chest x-ray, EKG before your appointment. ??? Patient to follow up with Allergy medicine, Otolaryngology and Speech Language pathology as scheduled. Cardiac Rehabilitation: Vinod Ethan Ochoa Jr. was seen today regarding participation in the outpatient Phase 2 Cardiac Rehabilitation at [facility]. The patient agrees to a referral to this program. The referral will be sent at discharge and the patient should be contacted by the Program within 1- 2 weeks from discharge. Future Appointments and Orders Future Appointments and Orders Future Appointments Provider Department Dept Phone 02/17/2022 10:00 AM Chris Barreto MD; LILIA Clement SCHEDULE Allergy at [facility] Arrive at: Retail Link Analyst Area 6M [phone] 03/06/2022 2:00 PM [facility] DX ROOM 2 XRay at [facility] Arrive at: Retail Link Analyst Area 3T [phone] Please go to Retail Link Analyst Area 3T ([facility] Location). 03/06/2022 2:50 PM Danny Jewell MD Cardiac Surgery at [facility] Arrive at: Retail [facility] Analyst Area 4A [phone] 04/29/2022 3:00 PM Damián Hart MD Cardiology at [place] Arrive at: [facility] [address] [phone] Future Orders Complete By Expires Referral to Cardiac Rehab [PHJ553 Custom] As directed Process Instructions: If no progress note charted, please enter Clinical details in comments. Scheduling Instructions: Questions: My question or request is: CABG Referral to Home Health - at DISCHARGE [[id number] CPT(R)] As directed Process Instructions: Scheduling Instructions: Comments: DOCUMENTATION FOR VNA SERVICES (INCLUDING THOSE PATIENTS WITH MEDICARE COVERAGE REQUIRING HOME VNA SERVICES AND/OR HOSPICE SERVICES) PATIENT'S LOCATION: Vinod Ochoa [facility] [address] [place], [place] [id number] (home) Telephone Information: Pond Worker's Name: Self In discussion with the attending physician, it is certified that this patient is under their care and that they, or a Nurse Practitioner, or Physician Senior Applications Developer who is working directly with them, had [...] need for servicesas follows: HOME HEALTH AGENCY: [facility] in [place], [place] and [phone] RN orders: Cardiopulmonary assessment, incisional assessment, assess vital signs, assessment of rehab progress, medication management and effectiveness, home safety evaluation. PT ORDERS: Continue rehab for endurance, gait stability and strength with mobility and transfers. Home safety evaluation. Home exercise program if appropriate. CITY DISTRIBUTION CLERK ORDERS: assess and assist with community support needs Start of Care Date: 24 to 48 hours SPECIAL INSTRUCTIONS: For any follow up questions, needs, or issues please call the Cardiac Surgery Office at [phone] FOR MEDICARE ONLY: (please delete this section [...] noted. Questions: Agency name and contact information: [facility] Patient location post discharge: Home What services are requested: Registered Nurse Physical Therapy Start date: Responsible MD post discharge contact info: PCP and cardiology Dr. Danny Jewell Arrangements for VNA/home care: As above. VN RN OR PCP TO PLEASE REMOVE CHEST TUBE SUTURES ON OR AFTER 01/31/22 Signed: Manan Lovelace PA-C [facility] [address] FAX [phone] Date: 01/31/2022 CC: DO Best Hassan Jock N, MD [facility] DR C[place] [address] documented in this encounter Discharge Instructions Patient InstructionsCote, BREANA Tenorio - 01/31/2022 1:26 PM EDT Cardiac Surgery [...] Danny Jewell and/or the Cardiac Surgery Physician Senior Applications Developer Team may be reached at . Weight: [...] Dr. Danny Jewell. You may use a [place] Track or treadmill but avoid any pulling [...] friends, go to a movie, go to [employer], etc. Heavy activities: No hunting, skiing, jogging, snow shoveling, snowmobiling, lawn mowing, swimming, golf or tennis until after your return appointment with the surgeon. Do not ride motorcycles, AT[employer]'s tractors or horses. Avoid the use of [...] should resume a low fat, low cholesterol, [place] Heart [employer] Diet/Diabetic diet. Driving: No driving [...] office will schedule an appointment with your Welding Machine Operator/Tender, Dr. Pickens, in 2 weeks. You have an appointment with your Cardiac Surgeon, Dr. Danny Jewell, with a chest x-ray, EKG before your appointment. Patient to follow up with Allergy medicine, Otolaryngology and Speech Language pathology as scheduled. Cardiac Rehabilitation: Vinod Ochoa Jr. was seen today regarding participation in the outpatient Phase 2 Cardiac Rehabilitation at [facility]. The patient agrees to a referral [...] IV/tele removed. Pt wheeled down to east entrance for discharge. Lina Gamez - 01/31/2022 1:37 [...] Dietitian Active Orders Diet Carb Control diet 60// CHO counting level 2 Frequency: Effective Now [...] consulted in the interim. Lina Gamez Pager: [phone] Felisa Joy SLP - 01/31/2022 12:47 PM EDT Speech-Language Pathology [...] pt. Pt about to be DC'd from [facility], anxious to go home. Pt w/ noticeable moderate breathy hypophonia, low volume. Pt states that his voice has gradually improved since surgery (he reports he was initially aphonic). 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 Pt going to attend Cardiac Rehab at [facility] in [place], [place] in coming weeks. Pt would like voice therapy as well. Unfortunately, from review of website, no OP CLOTHING BUSHELER services appear to be offered by that hospital. Also says he is close to [facility], but review of their website also w/o mention of OP CLOTHING BUSHELER services. I offered to pt that he could be seen by [facility] voice therapist TeleHealth, however, he declines this as he does not have a computer or tablet at home and is not comfortable w/ technology. I suggested to PA that he put in a referral for OP voice therapy here at [facility] and schedule it for 4 weeks from now, when pt plans to return to [facility] to be re- checked by ENT. Pt hopefullywill continue to have improvements in his voice quality spontaneously (as he has in past few days asper his report). Pt notes that his voice is now strong enough to be understood by family and practiti oners, and on the phone. Pt can contact [facility] OP CLOTHING BUSHELER therapy if he has concerns or questions in interim. [phone]. Felisa Joy MA [facility] Inpatient Rehabilitation Medicine pager:# [phone] Manan Lovelace PA - 01/31/2022 8:37 AM [...] Cardiogenic shock resolved. Post-op delirium-resolved - Consult CLOTHING BUSHELER for eval and ENT for laryngoscopy - [...] 0600 and on the weekends please page [phone]. Elizabeth Leija, RN - 01/31/2022 2:31 AM EDT Pt AAOx4 NSR on tele- see scanned docs. VSS on RA. Denies any pain or SOB. Sternal incision CDI. Pt ambulated independently to bathroom and around unit. Rested comfortably between care. Call ballesteros within reach. Kenny Berumen - 01/30/2022 8:09 PM EDT Ditch Rider Encounter Note Patient Name: Vinod Ochoa Jr. : [id number] MR#: [id number] Admit Date: 01/21/2022 5:47 AM Hospital Day [...] occurred. He looks forward togoing home. Follow-up: Ditch Rider is available as needed. Time in Direct Care: 5 min. Kenny Yoon [place] 01/30/2022 Chris Thompson PT - 01/30/2022 3:53 PM EDT Physical [...] set-up. Pt stated that he lives in [place]. Precautions/Special Considerations: STERNAL PRECAUTIONS (No pushing, pulling [...] Education: reviewed precautions, pacing, safety. Assessment: Vinod Ethan Ochoa Jr. was seen today for physical [...] with plan as stated. Time IN / OUT:7726-8453 Total Minutes, Physical Therapy: 15 mins (te-fx2) Chris Thompson, PT Pager: [phone] Physical Therapy Inpatient Rehabilitation Department Manan Lovelace [...] 0600 and on the weekends please page [phone]. Elizabeth Leija RN - 01/30/2022 3:43 AM EDT Pt AAOx4 NSR on tele.VSS on RA. PRN hydralazine given x1 for SBP of 156. Sternal incision cdi. Denies any pain or SOB.Ambulated independently in room. No episodes of hallucination overnight.Call ballesteros within reach. Librado Cueva PA - 01/29/2022 8:27 AM EDT Cardiac Surgery Progress Note Vinod Ethan Ochoa Jr. is a 66 y.o. male [...] 0600 and on the weekends please page [phone]. Paulette Ayaka, PT - 01/28/2022 5:19 PM EDT Physical [...] set-up. Pt stated that he lives in [place]. ?? Precautions/Special Considerations: STERNAL PRECAUTIONS (No pushing, [...] cough, no production) ?? Pt stood from with cues and min/mod A, took few [...] with plan as stated. Time IN / OUT:9978-5609 Total Minutes, Physical Therapy: 24 Billing Code: te-fx2 AYAKA CALDWELL PT Pager: [phone] Physical Therapy Inpatient Rehabilitation Department Linda Villafuerte - 01/28/2022 3:52 PM EDT Harvey Encounter Note Patient Name: Vinod Ochoa Jr. : [id number] MR#: [id number] Admit Date: 01/21/2022 5:47 AM Hospital Day [...] up. Active Orders Diet Carb Control diet 60/60/75 [...] nausea and no vomiting Last Bowel Movement: (EVIDENCE TECHNICIAN) Patient education / questions: all nutrition related questions answered at this time Nutrition services to follow weekly through hospital course unless consulted in the interim. Tanja Romeo, DT [phone] Librado Cueva PA - 01/28/2022 10:22 AM EDT Cardiac Surgery Progress Note Vinod Ochoa . [...] 0600 and on the weekends please page [phone]. Rolanda Zhang MD - 01/27/2022 10:56 AM [...] pulses. No rashes. Incisions: c/d/i Tubes/Lines/Drains: kayla, danielle dailey RIJ Assessment/Plan: 66 y.o. male 6 Days Post-Op [...] 0600 and on the weekends please page [phone]. Ayaka Caldwell, PT - 01/27/2022 2:58 AM EDT Physical Therapy Note Treatment Number PT: 2 Patient profile: Vinod Long Xu Gutiérrez.??is a 66 y.o.??male??with CAD who is 5 [...] he will go to one of there Serious Business upon d/c ( will need to follow-up with family. Unclear of his home set-up. Pt stated that he lives in [place]. Precautions/Special Considerations: STERNAL PRECAUTIONS (No pushing, pulling [...] cc at end of session with call ballesteros in reach and chair alarm on. Pain: [...] active cervical flex/ext and rotations Assessment: Vinod Ethan Ochoa Jr. was seen today for physical [...] Therapy: 28 Billing Code: TAx2 Debbi Waters, [facility] Physical Therapy Inpatient Rehabilitation Department I was present for this rx and agree with the contents of this note. Ayaka Caldwell PT #[id number] Chris Thompson PT - 01/26/2022 2:50 PM EDT Physical [...] CATHERIZATION stent placement ? ? PRG CATH [facility] CORONARY ART W/INJ FOR ANGIO W/R HEART CATH IMG S&I N/A 01/13/2022 CORONARY ANGIOGRAPHY; W RHC performed by Polo Beckham MD at [facility] CATH LABS ??? PRO CABG, ARTERIAL, SINGLE N/A 01/21/2022 @CABG, USING ARTERIAL GRAFT;SINGLE ARTERIAL GRAFT (WRVU 33.75) performed by Danny Jewell MD at [facility] MAIN OR ??? PRO CABG, ARTERY-VEIN, TWO N/A 01/21/2022 @CABG, TWO VENOUS GRAFTS & ARTERIAL GRAFT (WRVU 7.93) performed by Danny Jewell MD at [facility] MAIN OR ??? PRO ENDOSCOPY W/VIDEO-ASST VEIN HARVEST, CABG Right 01/21/2022 ENDOSCOPIC HARVEST VEIN(S) FOR CABG (WRVU 0.31) performed by Danny Jewell MD at [facility] MAIN OR Social History: Pt able to [...] in this evaluation. CHRIS THOMPSON, PT Pager: [phone] Physical Therapy Inpatient Rehabilitation Department Time IN / OUT: 4036-6729 Total time: 38 mins ( eval) Damián [...] at , had heart surgery and his Dr. Is Dr. Jewell. Not hungry, wants to [...] 0600 and on the weekends please page [phone]. Lizzie Montes DT - 01/26/2022 8:15 AM [...] lb) Weight loss: none ARACELI Loo Pager: [phone] LT Aron Darling MD - 01/26/2022 6:10 AM EDT CARDIAC CRITICAL CARE STAFF PROGRESS NOTE Author: Aron Darling MD, PhD Patient seen and examined on critical care rounds. [id number] Vinod Ochoa Jr. is a 66 y.o.male [...] Primary * Luiz Viramontes PA - Physician Senior Applications Developer * Librado Cueva PA - Physician Senior Applications Developer 24 HOUR EVENTS: Delirious, impulsive overnight Precedex [...] 0600 and on the weekends please page [phone]. Aron Darling MD - 01/25/2022 6:02 AM EST CARDIAC CRITICAL CARE STAFF PROGRESS NOTE Author: Aorn Darling MD, PhD Patient seen and examined on critical care rounds. [id number] Vinod Ochoa . is a 66 y.o.male with the following [...] Primary * Luiz Viramontes PA - Physician Senior Applications Developer * Librado Cueva PA - Physician Senior Applications Developer 24 HOUR EVENTS: Extubated yesterday AM 3L [...] possible. CI > 3 at time of [place] removal, hypertensive on NTG gtt. Uptitrate BB [...] No Aron Darling MD, PhD Johnny Buenrostro [facility] - 01/24/2022 1:52 PM EST Respiratory Therapy NIV Note NIV Settings: NC 6L NIV Mode: CPAP EPAP (cmH20): 5 FiO2 (%): 45 % O2 Bleed In (LPM): 0 L/min NIV Measurements: Resp: 14 Mve: 12.5 Leak (L/min): 35 L/min Vte: 417 SpO2: 96 % Laboratory: Lab Results Component Value Date/Time PHART 7.42 01/24/2022 09:43 AM NOC8ZAE 38 01/24/2022 09:43 AM PO2ART 65 (L) 01/24/2022 09:43 AM MTA8YZG 24.5 01/24/2022 09:43 AM BEART 0.0 01/24/2022 [...] who have questions please contact the health home care coordinator that requested your imaging first. Electronically signed by: Catrachito Cisneros MD, [facility] ([phone]), at 01/21/2022 1:00 PM Skin Assessment: NIV [...] 0600 and on the weekends please page [phone]. Aron Darling MD - 01/24/2022 5:07 AM EST CARDIAC CRITICAL CARE STAFF PROGRESS NOTE Author: Aron Darling MD, PhD Patient seen and examined on critical care rounds. [id number] Vinod Ochoa Jr. is a 66 y.o.male [...] Primary * Luiz Viramontes PA - Physician Senior Applications Developer * Librado Cueva PA - Physician Senior Applications Developer 24 HOUR EVENTS: Epi weaned to off [...] ml Net -3199.52 ml CBC: Recent Labs 01/23/22 0610 01/22/22 [...] Will continue to monitor and support. Azra Fatima, RT Johnny Carrasquillo RCP - 01/23/2022 1:08 PM EST AMV [...] to extubated tomorrow. Johnny Buenrostro RCP Uriel Oro PT - 01/23/2022 11:40 AM EST Physical Therapy Note PT referral received, pt still intubated and sedated, and not appropriate for PT today. PT will follow up as appropriate. RN aware of pt's status. Uriel Sinha PT Beeper# [phone] Damián Grove PA - 01/23/2022 8:07 AM [...] 0.25 EPI 1 Vent settings: SIMV 15/650/50%/8 01/22 0701 - 01/23 0700 In: 5381.1 [I.V.:5381.1] Out: 1370 [Urine:1040] [...] Tubes/Lines/Drains: piv, dailey, danielle, TPW, CTs, RIJ, swan Assessment/Plan: 66 y.o. male 2 Days Post-Op [...] 0600 and on the weekends please page [phone]. Christiane Syed RCP - 01/23/2022 5:36 AM EST CTICU Protocol: [...] the Day: Wean vent as tolerated. Christiane Syed RCP Aron Barahona MD - 01/23/2022 5:27 AM EST CARDIAC CRITICAL CARE STAFF PROGRESS NOTE Author: Aron Darling MD, PhD Patient seen and examined on critical care rounds. [id number] Vinod Ochoa Chelsey is a 66 y.o.male with the following [...] Primary * Luiz Viramontes PA - Physician Senior Applications Developer * Librado Cueva PA - Physician Senior Applications Developer 24 HOUR EVENTS: Improving CI and UOP [...] the unit. Aron Darling MD, PhD Mariana Guerrero MSW - 01/22/2022 4:59 PM EST CITY DISTRIBUTION CLERK followed up on social work referral to complete Advance Directives. Pt has been intubated today and [facility]'s Vice President Of Finance plans to follow up with pt tomorrow (or when extubated) to see if patient does want to compete his Advance Directive. PLAN: Either gas specialist or CITY DISTRIBUTION CLERK to follow up with pt re advance directives once he is extubated. Mariana Zelaya [facility] [phone] Chris Cohen PT - 01/22/2022 4:01 PM EST PT Note Pt is POD# 1. Physical Therapy referral received. Pt currently intubated/sedated. Not yet approp forPT evaluation. Will follow-up as approp for eval Chris Thompson, PT Pager [phone] Gala Matamoros RN - 01/22/2022 11:58 AM EST Reached out to family members for completion of [place]. SonAlex unavailable recommended calling daughter Barbara. Left message for Barbara with her to call this RNCM when she returns home from work. stated he would commercial real estate agent her the message. Damián Grove PA - [...] 15/650/50%/8 01/21 0701 - 01/22 0700 In: 08673.4 [I.V.:8872.4] Out: 1909 [Urine:674] CT Med: 430/140 [...] Tubes/Lines/Drains: piv, dailey, danielle, TPW, CTs, RIJ, swan Assessment/Plan: 66 y.o. male 1 Day Post-Op [...] 0600 and on the weekends please page [phone]. Christiane Syed [facility] - 01/22/2022 6:09 AM EST CTICU Protocol: [...] extubate as tolerated. Christiane Syed RCP Aron Darling MD - 01/22/2022 5:18 AM EST CARDIAC CRITICAL CARE STAFF PROGRESS NOTE Author: Aron Darling MD, PhD Patient seen and examined on critical care rounds. [id number] Vinod Ochoa Jr. is a 66 y.o.male [...] * Danny Jewell MD - Primary * Viramontes, Luiz W, PA - Physician Senior Applications Developer * Librado Cueva PA - Physician Senior Applications Developer 24 HOUR EVENTS: Suspected anaphylaxis to albumin [...] on the unit. Aron Darling MD, PhD Kirill Bran RN - 01/21/2022 7:38 PM EST Patient had episode of hypotension after arrival to [facility]. Initially, the hypotension was able to [...] Patient being closely monitored by team. Danny Ray MD - 01/21/2022 6:09 PM EST Cardiac [...] will improve over time. Danny Jewell MD [phone] Carmen Stout [facility] - 01/21/2022 3:34 PM EST Respiratory Care [...] plan since last visit. Danny Jewell MD [phone] Source Note - Danny Jewell MD - [...] below. He has treated hypertension, heis a zdo-yjvisvy-hipkthpzv diabetic. He has had no known previous [...] given written informed consent. Danny Jewell MD [phone] Danny Jewell MD - 01/21/2022 6:50 AM [...] below. He has treated hypertension, heis a htb-cgnqghu-nkojjivgu diabetic. He has had no known previous [...] given written informed consent. Danny Jewell MD [phone] documented in this encounter Nursing Notes Gabi Mendez RN - 01/21/2022 8:56 AM EST Pt informed on surgery start @ 0854 documented in this encounter Miscellaneous Notes Consult Note - Ayana Argueta RN - 01/31/2022 10:20 AM EDT [facility] CARDIAC REHABILITATION Vinod Ochoa Jr. was seen today regarding participation in the outpatient Phase 2 Cardiac Rehabilitation at [facility]. The patient agrees to a referral [...] CATHERIZATION stent placement ? ? PRG CATH [facility] CORONARY ART W/INJ FOR ANGIO W/R HEART CATH IMG S&I N/A 01/13/2022 CORONARY ANGIOGRAPHY; W RHC performed by Polo Beckham MD at [facility] CATH LABS ??? PRO CABG, ARTERIAL, SINGLE N/A 01/21/2022 @CABG, USING ARTERIAL GRAFT;SINGLE ARTERIAL GRAFT (WRVU 33.75) performed by Danny Jewell MD at [facility] OR ??? PRO CABG, ARTERY-VEIN, TWO N/A 01/21/2022 @CABG, TWO VENOUS GRAFTS & ARTERIAL GRAFT (WRVU 7.93) performed by Danny Jewell MD at [facility] MAIN OR ??? PRO ENDOSCOPY W/VIDEO-ASST VEIN HARVEST, CABG Right 01/21/2022 ENDOSCOPIC HARVEST VEIN(S) FOR CABG (WRVU 0.31) performed by Danny Jewell MD at [facility] MAIN OR Medications & Allergies No current facility-administered [...] products and Lisinopril Social History [place] in [place] [address] Social History Socioeconomic History ??? Marital status: [...] for him the continue to work with CLOTHING BUSHELER in the interim and f/u with ENT. If his symptoms do not improve, we will undergo further investigation as to the etiology of his symptoms and have treatment options to improve his dysphonia. Recommendations: 1. Continue to work with CLOTHING BUSHELER 2. Plan for ENT f/u OP, appointment requested __ Bhakti Paredes MD, PGY-2 02/01/22 9:35 AM ENT Team Pager: [phone] Care Management - Gala Matamoros RN - 01/31/2022 9:57 AM EDT OFFICE [...] shock resolved. Post-op delirium-resolved ?? - Consult CLOTHING BUSHELER for eval and ENT for laryngoscopy - [...] work and living out of the area. CITY DISTRIBUTION CLERK was added to VN order to assist family with community support resources. RNCM recommended private furnace caretaker to support patient as hetransitioned to home [...] Type: *No Product type* / Secondary Insurance: ANTHEM MEDICARE SUPPLEMENT Prescription Coverage: Yes Preferred [facility]acy: [facility] [place] [address] - [address] [place] [phone] Plan for discharge is: Home w/ Services Home Health Services: Registered Nurse, Physical Therapy Agency Referrals & Follow-up Care: Contact information for follow-up [address] [place] [address] For Nursing, PT and CITY DISTRIBUTION CLERK service Transportation: family or friend will provide Sister Barbara is planning on transporting at discharge Barriers to discharge: none Plan going forward: Care Management will continue to follow and assist with discharge planning and coordination of care as indicated. Anticipated Date of Discharge: 01/31/2022 Gala Matamoros neuroscience director na M-Th Care Management - Gala Matamoros RN - [...] Type: *No Product type* / Secondary Insurance: ANTHEM MEDICARE SUPPLEMENT Prescription Coverage: Yes Preferred Pharmacy: [facility], [place] - [address] [phone] Plan for discharge is: Home w/ Services Home Health Services: Registered Nurse, Physical Therapy Agency Referrals & Follow-up Care: Contact information for follow-up [address] [address] Transportation: family or friend will provide Sister Barbara is planning on transporting at discharge Barriers to discharge: none Plan going forward: Care Management will continue to follow and assist with discharge planning and coordination of care as indicated. Anticipated Date of Discharge: 01/31/2022 Gala Matamoros RN Case Manager M- Plan of Care - Pili Yan RN [...] Type: *No Product type* / Secondary Insurance: ANTHEM MEDICARE SUPPLEMENT Prescription Coverage: Yes Preferred Pharmacy: [facility] [place] [address], [place] - [address] [place] [phone] Plan for discharge is: Pending Hospital Course and PT/OT Recommendations Transportation: family or friend will provide Barriers to discharge: Discharge planning Plan going forward: Care Management will continue to follow and assist with discharge planning and coordination of care as indicated. Anticipated Date of Discharge: 01/30/2022 Gala Matamoros neuroscience director na M- Initial Assessments - Gala Matamoros RN [...] COVID test: Lab Results Component Value Date [id number] Not Detected 01/22/2022 Past medical History: Past [...] Trevizo would be surrogate decision maker per [place] surrogate decision making law. (Only good for 180 days) Any patient receiving care at [facility] must abide by [place] law. The hierarchy for surrogate decision making [...] (i) The agent with financial power of collections attorney or a conservator appointed in accordance [...] straight Home Address confirmed as: Mailing address [place] [id number] Unable to obtain home address for his new residence during this call. Social & Family Supports: All names listed below confirmed with patient as current and correct Extended Emergency Contact Information Primary Emergency Contact: Justin Ochoa [facility] Mobile Relation: Spouse Secondary Emergency Contact: Alex Ochoa Mobile Relation: Child Mother: Ying Ochoa [facility] Current Care Provided by: self Provides Primary [...] Type: *No Product type* / Secondary Insurance: ANTHEM MEDICARE SUPPLEMENT Prescription Coverage: Yes Preferred Pharmacy: [address] [phone] Status: Patient is a : No Primary Care Provider: Vladimir Muñoz DO [phone] Patient/Caregiver Goals of Treatment: family wants to support patient in returning to his home Potential Needs for Transition of Care: none Agency Referrals: ESTEFANIA CHAVES and patient/plastic products sales representative discussed agencies which serve their preferred geographic area. affiliations were identified and they were educated about their right to choose where referrals are placed. Patient requests referral to [facility] in [place], [place] and [phone] Expected date of discharge:01/28/2022 Referral routed to the Vice President Of Finance for matching with agency/vendor and to provide any required information. Transportation: no concerns Transportation Anticipated: family or friend will provide Concerns to be Addressed: no discharge needs identified Assessment: Patient is admitted to Cardiology CT service for CAD Plan: Vinod Ethan Ochoa Jr. is a 66 y.o. male [...] with transition of care planning. Gala Matamoros neuroscience director na M-Th Consult Note - Chris Barreto MD [...] Patient intubated at time of arrival to [facility]. 1212 blood pressure 122/73 P80 SpO2 [...] IV 1443 got human albumin Spoke with CVCC team directly including 5 team members who [...] CATHERIZATION stent placement ? ? PRG CATH PLMT CORONARY ART W/INJ FOR ANGIO W/R HEART CATH IMG S&I N/A 01/13/2022 CORONARY ANGIOGRAPHY; W RHC performed by Polo Beckham MD at [facility] CATH LABS ??? atorvastatin (Lipitor) tablet 80 [...] reduce the risk of reacting. Please page production posting clerk therapeutic recreation assistant with additional questions (see on-call schedule as it changes throughout the week). 2 hours were spent on consult in detailed record review, consultation with primary team, examinationof patient, and documentation. Chris Barreto MD [phone] Brief Op Note - Danny Jewell MD - 01/21/2022 11:59 AM EST Brief Operative Note Patient Name: Vinod Ochoa Jr. : [id number] MR#: [id number] Case Date: 01/21/2022 Surgeon: Surgeon(s) and Role: * Danny Jewell MD - Primary * Luiz Viramontes PA - Physician Senior Applications Developer * Librado Cueva PA - Physician Senior Applications Developer Preoperative diagnosis: CAD Postoperative diagnosis: CAD, diffusely [...] 200 mL Drains: Mediastinal and pleural Disposition: CC Condition: Stable Attestation: Case Date: 01/21/2022 I was present and I participated during the entire procedure (does not need to include opening and closing). DANNY JEWELL MD 01/21/2022 Op Note - Danny Jewell MD - 01/21/2022 8:26 AM EST [facility] Operative Note Patient Name: Vinod Ochoa JrChelsey : [id number] MR#: [id number] Case Date: 01/21/2022 Surgeon: Surgeon(s) and Role: * Danny Jewell MD - Primary * Luiz Viramontes PA - Physician Senior Applications Developer * Librado Cueva PA - Physician Senior Applications Developer ?? Preoperative diagnosis: CAD ?? Postoperative diagnosis: [...] ?? Drains: Mediastinal and pleural ?? Disposition: CVCC Procedure Description: The patient was brought to [...] Catrachita Baez MD [facility] ANESTHESIOLOGY [place]ASH[place]ROSPECT, [place] 0375 (Wo rk) 12/15/2022 Office Visit Cardiology Damián Hart MD [facility] [address] [place] 0[address] (Wo rk) 03/25/2050 Hospital Encounter Surgery Citlalli Richardson MD Vocal cord paralysis [facility] ER OTOLARYNGOLOGY JOSE CARLOSMYSTIC, [place] 0375 (Wo rk) Scheduled Referrals Name [...] disease involving p rocedure are in [place] coronary the results artery of [place] section. heart, unspecified whether angina present PREPARE RBC STAT 01/21/2022 6:35 Results for this AM EST procedure are i n the results section. POCT GLUCOSE Routine 01/21/2022 6:26 Results for this AM EST procedure are i n the results section. documented in this encounter Results POCT Glucose (01/31/2022 11:38 AM EDT) athologist Signature POC Glucose 149 65 - 199 [facility]dL [facility] Comment: Supplemental ranges: <140 mg/dL before meals <180 mg/dL all other times of the day Specimen Anatomical Collection Method Collection Time Receive d Time (Source) Location / / Volume Laterality Blood 01/31/2022 11:38 01/31/2022 AM EDT 11:38 AM EDT Danny Jewell MD POINT OF CARE TEST ORDERABLE S Performing Organization Address City/[facility]/ZIP Code Phon e Number [address] POCT Glucose (01/31/2022 7:37 AM EDT) athologist Signature POC Glucose 141 65 - 199 [facility] mg/dL [facility] Comment: Supplemental ranges: <140 mg/dL before meals <180 mg/dL all other times of the day Specimen Anatomical Collection Method Collection Time Receive d Time (Source) Location / / Volume Laterality Blood 01/31/2022 7:37 AM 7:37 EDT AM EDT Danny Jewell MD POINT OF CARE TEST ORDERABLE S Performing Organization Address City/State/[place] [address] Potassium (01/31/2022 4:23 AM EDT) athologist Signature Potassium 3.7 3.5 - 5.0 [facility] mmol/L [facility] Comment: Please note: ??Patients with [...] Jewell MD CHEMISTRY ORDERABLES Performing Organization Address [facility] [place] [address] POCT Glucose (01/30/2022 8:33 PM EDT) athologist Signature POC Glucose 132 65 - 199 [place] mg/dL [facility] Comment: Supplemental ranges: <140 mg/dL before meals <180 mg/dL all other times of the day Specimen Anatomical Collection Method Collection Time Receive d Time (Source) Location / / Volume Laterality Blood 01/30/2022 8:33 PM 2 8:33 EDT PM EDT Danny Jewell MD POINT OF CARE TEST ORDERABLE S Performing Organization Address City/[facility]/[place] [address] POCT Glucose (01/30/2022 4:24 PM EDT) athologist Signature POC Glucose 154 65 - 199 [place] mg/dL [facility] Comment: Supplemental ranges: <140 mg/dL before meals <180 mg/dL all other times of the day Specimen Anatomical Collection Method Collection Time Receive d Time (Source) Location / / Volume Laterality Blood 01/30/2022 4:24 PM 2 4:24 EDT PM EDT Danny Jewell MD POINT OF CARE TEST ORDERABLE S Performing Organization Address City/State/ZIP [facility] Phon e Number [place] [id number] [address] POCT Glucose (01/30/2022 11:49 AM EDT) athologist Signature POC Glucose 158 65 - 199 [facility] mg/dL [facility] Comment: Supplemental ranges: <140 mg/dL before meals <180 mg/dL all other times of the day Specimen Anatomical Collection Method Collection Time Receive d Time (Source) Location / / Volume Laterality Blood 01/30/2022 11:49 01/30/2022 AM EDT 11:49 AM EDT Danny Jewell MD POINT OF CARE TEST ORDERABLE S Performing Organization Address City/[facility]/ZIP Code Phon e Number [address] Tryptase (01/30/2022 9:36 AM EDT) athologist Signature Tryptase 4.3 <=8.4 ng/mL [facility] Comment: Total tryptase concentrations that are p ersistently greater than 20 ng/mL may be consistent with systemic mastocytosis . Specimen Anatomical Collection Method Collection Time Receive d Time (Source) Location / / Volume Laterality Blood 01/30/2022 9:36 AM 2 7:33 EDT AM EDT Resulting Agency Comment Spec In Lab Danny Jewell MD CHEMISTRY ORDERABLES Performing Organization Address City/[facility]/ZIP Code Phon e Number [place] [id number] [address]OS[address] POCT Glucose (01/30/2022 7:30 AM EDT) athologist Signature POC Glucose 123 65 - 199 [facility] mg/dL [facility] Comment: Supplemental ranges: <140 mg/dL before meals <180 mg/dL all other times of the day Specimen Anatomical Collection Method Collection Time Receive d Time (Source) Location / / Volume Laterality Blood 01/30/2022 7:30 AM 2 7:30 EDT AM EDT Danny Jewell MD POINT OF CARE TEST ORDERABLE S Performing Organization Address City/State/[place] [address] (ABNORMAL) Potassium (01/30/2022 4:29 AM EDT) athologist Signature Potassium 3.2 (L) 3.5 - 5.0 [facility] mmol/L [facility] Comment: Please note: ??Patients with [...] Organization Address City/State/[place] [address] POCT Glucose (01/29/2022 7:11 PM EDT) athologist Signature POC Glucose 137 65 - 199 [facility] mg/dL [facility] Comment: Supplemental ranges: <140 mg/dL before meals <180 mg/dL all other times of the day Specimen Anatomical Collection Method Collection Time Receive d Time (Source) Location / / Volume Laterality Blood 01/29/2022 7:11 PM 2 7:11 EDT PM EDT Danny Jewell MD POINT OF CARE TEST ORDERABLE S Performing Organization Address City/State/[place] [address] POCT Glucose (01/29/2022 4:04 PM EDT) athologist Signature POC Glucose 146 65 - 199 [facility] mg/dL [facility] Comment: Supplemental ranges: <140 mg/dL before meals <180 mg/dL all other times of the day Specimen Anatomical Collection Method Collection Time Receive d Time (Source) Location / / Volume Laterality Blood 01/29/2022 4:04 PM 2 4:04 EDT PM EDT Danny Jewell MD POINT OF CARE TEST ORDERABLE S Performing Organization Address City/State/ZIP Code Phon e Number [address] POCT Glucose (01/29/2022 11:40 AM EDT) athologist Signature POC Glucose 167 65 - 199 [place] mg/dL [facility] Comment: Supplemental ranges: <140 mg/dL before meals <180 mg/dL all other times of the day Specimen Anatomical Collection Method Collection Time Receive d Time (Source) Location / / Volume Laterality Blood 01/29/2022 11:40 01/29/2022 AM EDT 11:40 AM EDT Danny Jewell MD POINT OF CARE TEST ORDERABLE S Performing Organization Address City/[facility]/ZIP Code Phon e Number [address] POCT Glucose (01/29/2022 7:32 AM EDT) athologist Signature POC Glucose 141 65 - 199 [place] mg/dL [facility] Comment: Supplemental ranges: <140 mg/dL before meals <180 mg/dL all other times of the day Specimen Anatomical Collection Method Collection Time Receive d Time (Source) Location / / Volume Laterality Blood 01/29/2022 7:32 AM 2 7:32 EDT AM EDT Danny Jewell MD POINT OF CARE TEST ORDERABLE S Performing Organization Address City/State/ZIP Code Phon e Number [address] Differential, Automated (01/29/2022 2:15 AM EDT) athologist Signature Neutrophils % 70.5 % [facility] Neutr Abs (ANC) 5.95 1.70 - [facility] 6.10 [facility] x10(3)/[facility] LABORATORY Lymphocytes % 13.3 % [facility] Lymphocytes Abs 1.1 0.9 - 3.2 [facility] x10(3)/[facility] LABORATORY Monocytes % 11.0 % [facility] Monocyte Abs 0.9 0.3 - 0.9 [facility] x10(3)/[facility] LABORATORY Eosinophils % 4.1 % [facility] Eosinophils Abs 0.4 0.0 - 0.4 [facility] x10(3)/[facility] LABORATORY Basophils % 0.6 % [facility] Basophils Abs 0.0 0.0 - 0.1 [facility] x10(3)/[facility] LABORATORY Immature Gran % 0.50 % [facility] Comment: Immature granulocytes(IG's)percentage an d absolute count will include metamyelocytes, myelocytes, and promyelo cytes. Blood smears from CBCs yielding IG's will be scanned manually for concor dance. If this scan disagrees with the automated IG or if promyelocytes are not ed, a manual differential will be performed. Nikole Gran Abs 0.04 0.00 - 0.04 x10(3)/[facility] LABORATORY Specimen Anatomical Collection Method Collection Time Receive d Time (Source) Location / / Volume Laterality Blood 01/29/2022 2:15 AM 2 2:26 EDT AM EDT Resulting Agency Comment Spec In Lab Damián TOUSSAINT HEMATOLOGY ORDERABLES Performing Organization Address City/State/[place] [address] (ABNORMAL) Hemogram (01/29/2022 2:15 AM EDT) Analysis Performed At Patho logist Time Signature WBC 8.4 4.0 - 9.5 [facility] x10(3)/[facility] LABORATORY RBC 2.77 (L) 4.58 - [facility] 5.54 [facility] x10(6)/[facility] LABORATORY Hemoglobin 8.7 (L) 13.7 - [facility] 16.5 g/dL [facility] Hematocrit 25.6 (L) 40.5 - [facility] 48.5 % [facility]ORY MCV 92.4 82.9 - [facility] 93.1 [facility] LABORATORY MCH 31.4 27.5 - GABRIELLE GRANADO 32.1 pg [facility] LABORATORY MCHC 34.0 32.0 - GABRIELLE GRANADO 35.7 g/dL [facility] Platelets 282 145 - 357 [facility] BUSTAMANTECK x10(3)/[facility] LABORATORY RDWSD 45.9 (H) 36.0 - [place] FERN[place]NDEZLOY 45.0 [facility] LABORATORY RDWCV 13.8 11.4 - [place] LOY 13.8 % [facility] LABORATORY MPV 9.3 7.6 - 12.9 GABRIELLE GRANADO [facility] LABORATORY nRBC % Auto 0.0 % [facility]OR[facility] nRBC Abs Auto 0.000 0.000 - [place] LOY 0.000 [facility] x10(3)/[facility] LABORATORY Specimen Anatomical Collection Method Collection Time Receive d Time (Source) Location / / Volume Laterality Blood 01/29/2022 2:15 AM 2 2:26 EDT AM EDT Resulting Agency Comment Spec In Lab Damián TOUSSAINT HEMATOLOGY ORDERABLES Performing Organization Address City/[facility]/[place] [address] Potassium (01/29/2022 2:15 AM EDT) athologist Signature Potassium 3.8 3.5 - 5.0 [facility] mmol/L [facility] Comment: Please note: ??Patients with [...] Jewell MD CHEMISTRY ORDERABLES Performing Organization Address City/[facility]/[place] [address] [facility] [address] POCT Glucose (01/28/2022 9:23 PM EDT) athologist Signature POC Glucose 146 65 - 199 [place] mg/dL [facility] Comment: Supplemental ranges: <140 mg/dL before meals <180 mg/dL all other times of the day Specimen Anatomical Collection Method Collection Time Receive d Time (Source) Location / / Volume Laterality Blood 01/28/2022 9:23 PM 2 9:23 EDT PM EDT Danny Jewell MD POINT OF CARE TEST ORDERABLE S Performing Organization Address City/State/ZIP Code Phon e Number [address] POCT Glucose (01/28/2022 4:51 PM EDT) athologist Signature POC Glucose 177 65 - 199 [place] mg/dL [facility] Comment: Supplemental ranges: <140 mg/dL before meals <180 mg/dL all other times of the day Specimen Anatomical Collection Method Collection Time Receive d Time (Source) Location / / Volume Laterality Blood 01/28/2022 4:51 PM 2 4:51 EDT PM EDT Danny Jewell MD POINT OF CARE TEST ORDERABLE S Performing Organization Address City/State/ZIP Code Phon e Number [address] POCT Glucose (01/28/2022 12:15 PM EDT) athologist Signature POC Glucose 150 65 - 199 [place] mg/dL [facility] Comment: Supplemental ranges: <140 mg/dL before meals <180 mg/dL all other times of the day Specimen Anatomical Collection Method Collection Time Receive d Time (Source) Location / / Volume Laterality Blood 01/28/2022 12:15 01/28/2022 PM EDT 12:15 PM EDT Danny Jewell MD POINT OF CARE TEST ORDERABLE S Performing Organization Address City/State/ZIP Code Phon e Number [address] POCT Glucose (01/28/2022 8:13 AM EDT) athologist Signature POC Glucose 135 65 - 199 [facility] mg/dL [facility] Comment: Supplemental ranges: <140 mg/dL before meals <180 mg/dL all other times of the day Specimen Anatomical Collection Method Collection Time Receive d Time (Source) Location / / Volume Laterality Blood 01/28/2022 8:13 AM 2 8:13 EDT AM EDT Danny Jewell MD POINT OF CARE TEST ORDERABLE S Performing Organization Address City/[facility]/[place] [address] Potassium (01/28/2022 2:17 AM EDT) athologist Signature Potassium 3.5 3.5 - 5.0 [facility] mmol/L [facility] Comment: Please note: ??Patients with [...] Jewell MD CHEMISTRY ORDERABLES Performing Organization Address City/[facility]/[place] [address] POCT Glucose (01/27/2022 11:57 PM EDT) athologist Signature POC Glucose 141 65 - 199 [facility] mg/dL [facility] Comment: Supplemental ranges: <140 mg/dL before meals <180 mg/dL all other times of the day Specimen Anatomical Collection Method Collection Time Receive d Time (Source) Location / / Volume Laterality Blood 01/27/2022 11:57 01/27/2022 PM EDT 11:57 PM EDT Danny Jewell MD POINT OF CARE TEST ORDERABLE S Performing Organization Address City/[facility]/[place] [address] POCT Glucose (01/27/2022 5:19 PM EDT) athologist Signature POC Glucose 147 65 - 199 [place] mg/dL [facility] Comment: Supplemental ranges: <140 mg/dL before meals <180 mg/dL all other times of the day Specimen Anatomical Collection Method Collection Time Receive d Time (Source) Location / / Volume Laterality Blood 01/27/2022 5:19 PM 2 5:19 EDT PM EDT Danny Jewell MD POINT OF CARE TEST ORDERABLE S Performing Organization Address City/State/ZIP Code Phon e Number [address] Potassium (01/27/2022 5:05 PM EDT) athologist Signature Potassium 3.9 3.5 - 5.0 [facility] mmol/L [facility] Comment: Please note: ??Patients with [...] Organization Address City/State/[place] [address] [facility] [address] POCT Glucose (01/27/2022 12:29 PM EDT) athologist Signature POC Glucose 166 65 - 199 [place]ERN[place] mg/dL [facility] Comment: Supplemental ranges: <140 mg/dL before meals <180 mg/dL all other times of the day Specimen Anatomical Collection Method Collection Time Receive d Time (Source) Location / / Volume Laterality Blood 01/27/2022 12:29 01/27/2022 PM EDT 12:29 PM EDT Danny Jewell MD POINT OF CARE TEST ORDERABLE S Performing Organization Address City/State/ZIP Code [place] [address] XR Chest PA & [...] who have questions please contact the health home care coordinator that requested your imaging first. ? Narrative [...] EXAMINATION: XR CHEST PA AND LATERAL (GE NERIC) CLINICAL HISTORY: s/p cabg, eval effusio ns [...] ho have questions please contact the health home care coordinator that requested your imaging first. Danny Jewell MD IMG DX ORDERABLES Potassium (01/27/2022 9:50 AM EDT) athologist Signature Potassium 3.5 3.5 - 5.0 [facility] mmol/L [facility] Comment: Please note: ??Patients with WBC >100,00 0 may have falsely elevated Potassium levels. ??For accurate Potassium quantif ication in these patients send serum separator tube (gold top) for subsequent determinations. ??Contact the Clinical Chemistry Laboratory if there are any qu estions. Specimen Anatomical Collection Method Collection Time Receive d Time (Source) Location / / Volume Laterality Blood 01/27/2022 9:50 AM 9:59 EDT AM EDT Resulting Agency Comment Spec In Lab Danny Jewell MD CHEMISTRY ORDERABLES Performing Organization Address City/State/[place] [address] (ABNORMAL) POCT Glucose (01/27/2022 8:28 AM EDT) athologist Signature POC Glucose 204 (H) 65 - 199 [facility]dL [facility] Comment: Supplemental ranges: <140 mg/dL before meals <180 mg/dL all other times of the day Specimen Anatomical Collection Method Collection Time Receive d Time (Source) Location / / Volume Laterality Blood 01/27/2022 8:28 AM 8:28 EDT AM EDT Danny Jewell MD POINT OF CARE TEST ORDERABLE S Performing Organization Address City/State/[place] [address] (ABNORMAL) Basic Metabolic Panel (non-fasting) (01/27/2022 2:29 AM EDT) P athologist Signature Glucose Lvl 144 65 - 199 [facility] mg/dL [facility] Comment: Diabetes: >=200 mg/dL plus symp toms BUN 9 (L) 10 - 20 mg/dL [facility] Creatinine 0.81 0.80 - 1.50 mg/dL [facility] Sodium 138 135 - 145 mmol/L [facility] Potassium 3.6 3.5 - 5.0 mmol/L [facility] Comment: Please note: ??Patients with WBC >100,00 0 may have falsely elevated Potassium levels. ??For accurate Potassium quantif ication in these patients send serum separator tube (gold top) for subsequent determinations. ??Contact the Clinical Chemistry Laboratory if there are any qu estions. Chloride 103 98 - 107 mmol/L [facility] CO2 23 22 - 31 mmol/L [facility] Anion Gap 12 5 - 15 mmol/L [facility] Calcium 8.1 (L) 8.5 - 10.5 mg/dL [facility] Estimated GFR 92 >=60 mL/min/1.73 m?? [facility] Comment: This patient? s estimated glomerular [...] Jewell MD CHEMISTRY ORDERABLES Performing Organization Address City/[facility]/[place] [facility] [place] Number [address] POCT Glucose (01/26/2022 9:54 PM EDT) athologist Signature POC Glucose 156 65 - 199 [facility] mg/dL [facility] Comment: Supplemental ranges: <140 mg/dL before meals <180 mg/dL all other times of the day Specimen Anatomical Collection Method Collection Time Receive d Time (Source) Location / / Volume Laterality Blood 01/26/2022 9:54 PM 2 9:54 EDT PM EDT Danny Jewell MD POINT OF CARE TEST ORDERABLE S Performing Organization Address City/[facility]/[place]IP [facility] [place] [address] Potassium (01/26/2022 3:20 PM EDT) athologist Signature Potassium 3.8 3.5 - 5.0 [facility] mmol/L [facility] Comment: Please note: ??Patients with [...] Organization Address City/State/[place] [address] POCT Glucose (01/26/2022 3:14 PM EDT) athologist Signature POC Glucose 114 65 - 199 [place] mg/dL [facility] Comment: Supplemental ranges: <140 mg/dL before meals <180 mg/dL all other times of the day Specimen Anatomical Collection Method Collection Time Receive d Time (Source) Location / / Volume Laterality Blood 01/26/2022 3:14 PM 3:14 EDT PM EDT Danny Jewell MD POINT OF CARE TEST ORDERABLE S Performing Organization Address City/[facility]/[place] [address] POCT Glucose (01/26/2022 11:18 AM EDT) athologist Signature POC Glucose 148 65 - 199 [place] mg/dL [facility] Comment: Supplemental ranges: <140 mg/dL before meals <180 mg/dL all other times of the day Specimen Anatomical Collection Method Collection Time Receive d Time (Source) Location / / Volume Laterality Blood 01/26/2022 11:18 01/26/2022 AM EDT 11:18 AM EDT Danny Jewell MD POINT OF CARE TEST ORDERABLE S Performing Organization Address City/State/[place] [address] Potassium (01/26/2022 9:30 AM EDT) athologist Signature Potassium 3.5 3.5 - 5.0 [facility] Comment: Please note: ??Patients with [...] Organization Address City/State/ZIP Code Phon e Number [address] POCT Glucose (01/26/2022 8:51 AM EDT) P athologist Signature POC Glucose 155 65 - 199 [place] mg/dL [facility] Comment: Supplemental ranges: <140 mg/dL before meals <180 mg/dL all other times of the day Specimen Anatomical Collection Method Collection Time Receive d Time (Source) Location / / Volume Laterality Blood 01/26/2022 8:51 AM 2 8:51 EDT AM EDT Danny Jewell MD POINT OF CARE TEST ORDERABLE S Performing Organization Address City/State/[place] [address] POCT Glucose (01/26/2022 6:25 AM EDT) athologist Signature POC Glucose 155 65 - 199 [place] mg/dL [facility] Comment: Supplemental ranges: <140 mg/dL before meals <180 mg/dL all other times of the day Specimen Anatomical Collection Method Collection Time Receive d Time (Source) Location / / Volume Laterality Blood 01/26/2022 6:25 AM 2 6:25 EDT AM EDT Danny Jewell MD POINT OF CARE TEST ORDERABLE S Performing Organization Address City/State/[place] [address] [facility] [address] POCT Glucose (01/26/2022 4:11 AM EDT) P athologist Signature POC Glucose 149 65 - 199 [place] mg/dL [facility] Comment: Supplemental ranges: <140 mg/dL before meals <180 mg/dL all other times of the day Specimen Anatomical Collection Method Collection Time Receive d Time (Source) Location / / Volume Laterality Blood 01/26/2022 4:11 AM 2 4:11 EDT AM EDT Danny Jewell MD POINT OF CARE TEST ORDERABLE S Performing Organization Address City/State/[place] [address] POCT Glucose (01/26/2022 3:08 AM EDT) athologist Signature POC Glucose 159 65 - 199 [facility] Comment: Supplemental ranges: <140 mg/dL before meals <180 mg/dL all other times of the day Specimen Anatomical Collection Method Collection Time Receive d Time (Source) Location / / Volume Laterality Blood 01/26/2022 3:08 AM 2 3:08 EDT AM EDT Danny Jewell MD POINT OF CARE TEST ORDERABLE S Performing Organization Address City/State/[place] [address] (ABNORMAL) Basic Metabolic Panel (non-fasting) (01/26/2022 3:00 AM EDT) athologist Signature Glucose Lvl 140 65 - 199 [facility] mg/dL [facility] Comment: Diabetes: >=200 mg/dL plus symp toms BUN 10 10 - 20 mg/dL [facility] Creatinine 0.86 0.80 - 1.50 mg/dL [facility] Sodium 137 135 - 145 mmol/L [facility] Potassium 3.4 (L) 3.5 - 5.0 mmol/L [facility] Comment: Please note: ??Patients with WBC >100,00 0 may have falsely elevated Potassium levels. ??For accurate Potassium quantif ication in these patients send serum separator tube (gold top) for subsequent determinations. ??Contact the Clinical Chemistry Laboratory if there are any qu estions. Chloride 103 98 - 107 mmol/L [facility] CO2 23 22 - 31 mmol/L [facility] Anion Gap 11 5 - 15 mmol/L [facility] Calcium 7.9 (L) 8.5 - 10.5 mg/dL [facility] Estimated GFR 90 >=60 mL/min/1.73 m?? [facility] Comment: This patient? s estimated glomerular [...] / Volume Laterality Blood 01/26/2022 3:00 AM 3:14 EDT AM EDT Resulting Agency Comment Spec In Lab Danny Jewell MD CHEMISTRY ORDERABLES Performing Organization Address City/State/ZIP Code Phon e Number [address] POCT Glucose (01/25/2022 11:56 PM EST) athologist Signature POC Glucose 149 65 - 199 [facility] mg/dL [facility] Comment: Supplemental ranges: <140 mg/dL before meals <180 mg/dL all other times of the day Specimen Anatomical Collection Method Collection Time Receive d Time (Source) Location / / Volume Laterality Blood 01/25/2022 11:56 01/25/2022 PM EST 11:56 PM EST Danny Jewell MD POINT OF CARE TEST ORDERABLE S Performing Organization Address City/State/ZIP Code Phon e Number [address] POCT Glucose (01/25/2022 9:45 PM EST) athologist Signature POC Glucose 146 65 - 199 [facility] mg/dL [facility] Comment: Supplemental ranges: <140 mg/dL before meals <180 mg/dL all other times of the day Specimen Anatomical Collection Method Collection Time Receive d Time (Source) Location / / Volume Laterality Blood 01/25/2022 9:45 PM 2 9:45 EST PM EST Danny Jewell MD POINT OF CARE TEST ORDERABLE S Performing Organization Address City/[facility]/ZIP Code Phon e Number [address] POCT Glucose (01/25/2022 8:10 PM EST) athologist Signature POC Glucose 135 65 - 199 [place] mg/dL [facility] Comment: Supplemental ranges: <140 mg/dL before meals <180 mg/dL all other times of the day Specimen Anatomical Collection Method Collection Time Receive d Time (Source) Location / / Volume Laterality Blood 01/25/2022 8:10 PM 2 8:10 EST PM EST Danny Jewell MD POINT OF CARE TEST ORDERABLE S Performing Organization Address City/State/ZIP Code Phon e Number [address] POCT Glucose (01/25/2022 5:59 PM EST) athologist Signature POC Glucose 146 65 - 199 [facility] Comment: Supplemental ranges: <140 mg/dL before meals <180 mg/dL all other times of the day Specimen Anatomical Collection Method Collection Time Receive d Time (Source) Location / / Volume Laterality Blood 01/25/2022 5:59 PM 2 5:59 EST PM EST Danny Jewell MD POINT OF CARE TEST ORDERABLE S Performing Organization Address City/State/ZIP Code Phon e Number [address] POCT Glucose (01/25/2022 4:15 PM EST) athologist Signature POC Glucose 140 65 - 199 [facility] Comment: Supplemental ranges: <140 mg/dL before meals <180 mg/dL all other times of the day Specimen Anatomical Collection Method Collection Time Receive d Time (Source) Location / / Volume Laterality Blood 01/25/2022 4:15 PM 2 4:15 EST PM EST Danny Jewell MD POINT OF CARE TEST ORDERABLE S Performing Organization Address City/State/[place] [address] Potassium (01/25/2022 4:15 PM EST) athologist Signature Potassium 4.1 3.5 - 5.0 [facility] mmol/[facility] Comment: Please note: ??Patients with WBC [...] Jewell MD CHEMISTRY ORDERABLES Performing Organization Address City/[facility]/[place] [address] Potassium (01/25/2022 12:30 PM EST) athologist Signature Potassium 3.8 3.5 - 5.0 [facility] mmol/[facility] Comment: Please note: ??Patients with WBC [...] Organization Address City/State/[place] [address] POCT Glucose (01/25/2022 12:27 PM EST) athologist Signature POC Glucose 149 65 - 199 [place] [facility] mg/dL [facility] Comment: Supplemental ranges: <140 mg/dL before meals <180 mg/dL all other times of the day Specimen Anatomical Collection Method Collection Time Receive d Time (Source) Location / / Volume Laterality Blood 01/25/2022 12:27 01/25/2022 PM EST 12:27 PM EST Danny Jewell MD POINT OF CARE TEST ORDERABLE S Performing Organization Address City/State/[place] [address] POCT Glucose (01/25/2022 10:16 AM EST) athologist Signature POC Glucose 146 65 - 199 [facility] mg/dL [facility] Comment: Supplemental ranges: <140 mg/dL before meals <180 mg/dL all other times of the day Specimen Anatomical Collection Method Collection Time Receive d Time (Source) Location / / Volume Laterality Blood 01/25/2022 10:16 01/25/2022 AM EST 10:16 AM EST Danny Jewell MD POINT OF CARE TEST ORDERABLE S Performing Organization Address City/State/[place] [address] POCT Glucose (01/25/2022 8:53 AM EST) athologist Signature POC Glucose 141 65 - 199 [place] mg/dL [facility] Comment: Supplemental ranges: <140 mg/dL before meals <180 mg/dL all other times of the day Specimen Anatomical Collection Method Collection Time Receive d Time (Source) Location / / Volume Laterality Blood 01/25/2022 8:53 AM 8:53 EST AM EST Danny Jewell MD POINT OF CARE TEST ORDERABLE S Performing Organization Address City/State/[place] [address] (ABNORMAL) Potassium (01/25/2022 8:50 AM EST) athologist Signature Potassium 3.4 (L) 3.5 - 5.0 [facility]/L [facility] Comment: Please note: ??Patients with [...] Jewell MD CHEMISTRY ORDERABLES Performing Organization Address City/[facility]/ZIP Code Phon e Number [address] POCT Glucose (01/25/2022 8:10 AM EST) athologist Signature POC Glucose 138 65 - 199 [facility] Comment: Supplemental ranges: <140 mg/dL before meals <180 mg/dL all other times of the day Specimen Anatomical Collection Method Collection Time Receive d Time (Source) Location / / Volume Laterality Blood 01/25/2022 8:10 AM 2 8:10 EST AM EST Danny Jewell MD POINT OF CARE TEST ORDERABLE S Performing Organization Address City/[facility]/[place] [address] POCT Glucose (01/25/2022 5:55 AM EST) athologist Signature POC Glucose 132 65 - 199 [place] mg/dL [facility] Comment: Supplemental ranges: <140 mg/dL before meals <180 mg/dL all other times of the day Specimen Anatomical Collection Method Collection Time Receive d Time (Source) Location / / Volume Laterality Blood 01/25/2022 5:55 AM 2 5:55 EST AM EST Danny Jewell MD POINT OF CARE TEST ORDERABLE S Performing Organization Address City/[facility]/[place] [address] POCT Glucose (01/25/2022 4:04 AM EST) athologist Signature POC Glucose 124 65 - 199 [facility] Comment: Supplemental ranges: <140 mg/dL before meals <180 mg/dL all other times of the day Specimen Anatomical Collection Method Collection Time Receive d Time (Source) Location / / Volume Laterality Blood 01/25/2022 4:04 AM 2 4:04 EST AM EST Danny Jewell MD POINT OF CARE TEST ORDERABLE S Performing Organization Address City/State/ZIP Code Phon e Number [address] POCT Glucose (01/25/2022 2:05 AM EST) athologist Signature POC Glucose 136 65 - 199 [facility] Comment: Supplemental ranges: <140 mg/dL before meals <180 mg/dL all other times of the day Specimen Anatomical Collection Method Collection Time Receive d Time (Source) Location / / Volume Laterality Blood 01/25/2022 2:05 AM 2 2:05 EST AM EST Danny Jewell MD POINT OF CARE TEST ORDERABLE S Performing Organization Address City/State/[place] [address] (ABNORMAL) Basic Metabolic Panel (non-fasting) (01/25/2022 2:00 AM EST) athologist Signature Glucose Lvl 131 65 - 199 [facility] Comment: Diabetes: >=200 mg/dL plus symp toms BUN 12 10 - 20 mg/dL [facility] Creatinine 0.88 0.80 - 1.50 mg/dL [facility] Sodium 142 135 - 145 mmol/L [facility] Potassium 3.3 (L) 3.5 - 5.0 mmol/L [facility] Comment: Please note: ??Patients with WBC >100,00 0 may have falsely elevated Potassium levels. ??For accurate Potassium quantif ication in these patients send serum separator tube (gold top) for subsequent determinations. ??Contact the Clinical Chemistry Laboratory if there are any qu estions. Chloride 108 (H) 98 - 107 mmol/L [facility] CO2 25 22 - 31 mmol/L [facility] Anion Gap 9 5 - 15 mmol/L [facility] Calcium 7.7 (L) 8.5 - 10.5 mg/dL [facility] Estimated GFR 89 >=60 mL/min/1.73 m?? [facility] Comment: This patient? s estimated glomerular [...] Organization Address City/State/[place] [address] POCT Glucose (01/24/2022 11:52 PM EST) P athologist Signature POC Glucose 146 65 - 199 [facility] mg/dL [facility] Comment: Supplemental ranges: <140 mg/dL before meals <180 mg/dL all other times of the day Specimen Anatomical Collection Method Collection Time Receive d Time (Source) Location / / Volume Laterality Blood 01/24/2022 11:52 01/24/2022 PM EST 11:52 PM EST Danny Jewell MD POINT OF CARE TEST ORDERABLE S Performing Organization Address City/State/[place] [address] POCT Glucose (01/24/2022 10:00 PM EST) athologist Signature POC Glucose 140 65 - 199 [place] mg/dL [facility] Comment: Supplemental ranges: <140 mg/dL before meals <180 mg/dL all other times of the day Specimen Anatomical Collection Method Collection Time Receive d Time (Source) Location / / Volume Laterality Blood 01/24/2022 10:00 01/24/2022 PM EST 10:00 PM EST Danny Jewell MD POINT OF CARE TEST ORDERABLE S Performing Organization Address City/State/ZIP Code Phon e Number [place] [address] POCT Glucose (01/24/2022 7:43 PM EST) athologist Signature POC Glucose 173 65 - 199 [place] mg/dL [facility] Comment: Supplemental ranges: <140 mg/dL before meals <180 mg/dL all other times of the day Specimen Anatomical Collection Method Collection Time Receive d Time (Source) Location / / Volume Laterality Blood 01/24/2022 7:43 PM 2 7:43 EST PM EST Danny Jewell MD POINT OF CARE TEST ORDERABLE S Performing Organization Address City/State/ZIP Code Ph[place] [address] POCT Glucose (01/24/2022 6:53 PM EST) athologist Signature POC Glucose 183 65 - 199 [place] [place] mg/dL [facility] Comment: Supplemental ranges: <140 mg/dL before meals <180 mg/dL all other times of the day Specimen Anatomical Collection Method Collection Time Receive d Time (Source) Location / / Volume Laterality Blood 01/24/2022 6:53 PM 2 6:53 EST PM EST Danny Jewell MD POINT OF CARE TEST ORDERABLE S Performing Organization Address City/State/[place] [address] Potassium (01/24/2022 4:45 PM EST) athologist Signature Potassium 3.8 3.5 - 5.0 [facility] mmol/L [facility] Comment: Please note: ??Patients with [...] Jewell MD CHEMISTRY ORDERABLES Performing Organization Address City/[facility]/[place] [address] (ABNORMAL) POCT Glucose (01/24/2022 4:38 PM EST) athologist Signature POC Glucose 216 (H) 65 - 199 [facility]dL [facility] Comment: Supplemental ranges: <140 mg/dL before meals <180 mg/dL all other times of the day Specimen Anatomical Collection Method Collection Time Receive d Time (Source) Location / / Volume Laterality Blood 01/24/2022 4:38 PM 2 4:38 EST PM EST Danny Jewell MD POINT OF CARE TEST ORDERABLE S Performing Organization Address City/State/[place] [address] (ABNORMAL) POCT Glucose (01/24/2022 4:02 PM EST) athologist Signature POC Glucose 200 (H) 65 - 199 [facility] Comment: Supplemental ranges: <140 mg/dL before meals <180 mg/dL all other times of the day Specimen Anatomical Collection Method Collection Time Receive d Time (Source) Location / / Volume Laterality Blood 01/24/2022 4:02 PM 2 4:02 EST PM EST Danny Jewell MD POINT OF CARE TEST ORDERABLE S Performing Organization Address City/State/[place] [address] (ABNORMAL) POCT Glucose (01/24/2022 2:10 PM EST) P athologist Signature POC Glucose 218 (H) 65 - 199 [facility] mg/dL [facility] Comment: Supplemental ranges: <140 mg/dL before meals <180 mg/dL all other times of the day Specimen Anatomical Collection Method Collection Time Receive d Time (Source) Location / / Volume Laterality Blood 01/24/2022 2:10 PM 2 2:10 EST PM EST Danny Jewell MD POINT OF CARE TEST ORDERABLE S Performing Organization Address City/State/[place] [address] (ABNORMAL) POCT Glucose (01/24/2022 12:20 PM EST) P athologist Signature POC Glucose 237 (H) 65 - 199 [facility] Comment: Supplemental ranges: <140 mg/dL before meals <180 mg/dL all other times of the day Specimen Anatomical Collection Method Collection Time Receive d Time (Source) Location / / Volume Laterality Blood 01/24/2022 12:20 01/24/2022 PM EST 12:20 PM EST Danny Jewell MD POINT OF CARE TEST ORDERABLE S Performing Organization Address City/State/[place] [address] (ABNORMAL) BLOOD GAS 2 ARTERIAL (01/24/2022 9:43 AM EST) Analysis Performed At Patho logist Time Signature pH Art 7.42 7.35 - [facility] 7.45 [facility] pCO2 Art 38 35 - 45 [facility] LABORATORY pO2 Art 65 (L) 85 - 104 [facility] LABORATORY HCO3 Art 24.5 20.0 - [facility] [facility] 26.0 [facility] mmol/L HOSPITAL LABORATORY BE Art 0.0 -3.0 - 3.0 [facility] mmol/L [facility]ORATORY Hgb Blood Gas 9.2 (L) 13.7 - [facility] 16.5 g/dL [facility] LABOR[facility] O2HB Art 91.0 (L) 94.0 - [facility] 97.0 % [facility] COHB Art 0.3 % [facility] LABORATORY Comment: Nonsmokers: 0.5-1.5% COHB Smokers: Variable, but usually less than 10% Toxic: 20-30% COHB Lethal: Greater than 60% COHB METHB Art 0.9 <=1.5 % [facility] LABORATORY Na Whole Blood 134 (L) 135 - 145 mmol/L [facility] K Whole Blood 3.6 3.5 - 5.0 mmol/L [facility] LABORATORY Comment: Please note: Patients with WBC >100,000 may have falsely elevated Potassium levels. Contact the Clinical Chemistry L aboratory if there are any questions. ICa Whole Blood 1.16 1.15 - 1.33 mmol/L [facility] LABOR[facility] Comment: Note: ??Total bilirubin higher than 20 m g/dL may lead to falsely low ionized calcium. CL Whole Blood 106 98 - 107 mmol/L [facility]OR[facility] Gluc Whole Bld 193 65 - 199 mg/dL [facility] LABOR[facility] Comment: Diabetes: >=200 mg/dL plus symp toms. Lactate WB 1.2 0.5 - 2.2 mmol/L [facility] LABORATORY FIO2 Art 40 % [facility] LABORATORY PF Ratio Art 162 [facility] LABOR[facility]ORY Specimen Anatomical Collection Method Collection Time Receive d Time (Source) Location / / Volume Laterality Blood 01/24/2022 9:43 AM 9:43 EST AM EST Danny Jewell MD CHEMISTRY ORDERABLES Performing Organization Address City/State/[place] [address] Potassium (01/24/2022 9:43 AM EST) athologist Signature Potassium 3.6 3.5 - 5.0 [facility]L [facility] Comment: Please note: ??Patients with [...] Organization Address City/State/ZIP Code Phon e Number [address] POCT Glucose (01/24/2022 8:26 AM EST) P athologist Signature POC Glucose 132 65 - 199 [facility] mg/dL [facility] Comment: Supplemental ranges: <140 mg/dL before meals <180 mg/dL all other times of the day Specimen Anatomical Collection Method Collection Time Receive d Time (Source) Location / / Volume Laterality Blood 01/24/2022 8:26 AM 2 8:26 EST AM EST Danny Jewell MD POINT OF CARE TEST ORDERABLE S Performing Organization Address City/State/[place] [address] COVID-19 PCR (01/24/2022 6:23 AM EST) Patholo gist Method Time Signature SARS-CoV-2 Not Detected Not Detected GABRIELLE RNA [facility] LABORATORY Comment: This result should be [...] diagnosis of COVID-19 is performed using the [employer] S-CoV-2 Assay as authorized by the FDA Emergency Use Authorization (EUA). This EUA assay is intended for In-vitro Diagnostic (IVD) use with respiratory sp ecimens such as nasopharyngeal swabs collected from individuals during the ac sharona phase of infection. This assay is performed based on the instructions for use provided by [employer] and additional guidance provided by CDC and FDA. Testing is performed in the Clinical Genomics and [facility] y Laboratory within the Department of Pathology and Laboratory Medicine at [facility], certified under the Clinical Laboratory Improvement [...] clinical management guidance information are available at th e CDC Coronavirus Disease 2019 (COVID-19) webpage under Information fo r Healthcare Professionals (https://www.cdc.gov/coronavirus/2019-nc ov/hcp/index.html) Additional information about this and ot her EUA tests can be found in provider and patient fact sheets at the following FDA website: https://www.fda.gov/medical-devices/dqzbtgvvjgr-lgrmmfo-9386-kmsil-54-xkpfspoll- lwp-pskccmtfdzfgdd-ernkons-devices/gmtzz-dmhtcjgoblu-eklr SARS-Cov-2 RNA Source FACE [facility]ENER Swab [facility] Specimen (Source) Anatomical Collection Method Collection Time Re ceived Time Location / / Volume Laterality Nasopharyngeal Swab 01/24/2022 6:23 01/24 AM EST 7:27 AM EST Comment: Symptoms->Surveillance Resulting Agency Comment Spec In Lab Danny Jewell MD MICROBIOLOGY - GENERAL ORDER CATHY Performing Organization Address City/State/[place] [address] POCT Glucose (01/24/2022 6:07 AM EST) P athologist Signature POC Glucose 160 65 - 199 [facility] mg/dL [facility] Comment: Supplemental ranges: <140 mg/dL before meals <180 mg/dL all other times of the day Specimen Anatomical Collection Method Collection Time Receive d Time (Source) Location / / Volume Laterality Blood 01/24/2022 6:07 AM 6:07 EST AM EST Danny Jewell MD POINT OF CARE TEST ORDERABLE S Performing Organization Address City/[facility]/[place] [address] (ABNORMAL) Blood Gas Arterial (01/24/2022 6:06 AM EST) Analysis Performed At Patho logist Time Signature pH Art 7.47 (H) 7.35 - [facility] 7.45 [facility] pCO2 Art 30 (L) 35 - 45 [facility] mmHg [facility] LAB[facility]ORY pO2 Art 95 85 - 104 [facility] mmHg [facility] LAB[facility]ATORY HCO3 Art 21.2 20.0 - [facility] 26.0 [facility] mmol/L [facility] LABORATORY BE Art -2.4 -3.0 - 3.0 [facility] mmol/L [facility] Hgb Blood Gas 8.9 (L) 13.7 - [facility] 16.5 g/dL [facility] O2HB Art 96.1 94.0 - [facility] 97.0 % [facility] COHB Art 0.3 % [facility] Comment: Nonsmokers: ??0.5-1.5% COHB Smokers: ??Variable, but usually less th an 10% Toxic: 20 - 30% COHB Lethal: ??Greater than 60% COHB METHB Art 0.3 <=1.5 % [facility] LABORATORY Na Whole Blood 136 135 - 145 mmol/L [facility] K Whole Blood 3.6 3.5 - 5.0 mmol/L [facility] Comment: Please note: ??Patients with WBC >100,00 0 may have falsely elevated Potassium levels. ??Contact the Clinical Chemistry Laboratory if there are any questions. ICa Whole Blood 1.12 (L) 1.15 - 1.33 mmol/L [facility] Comment: Note: ??Total bilirubin higher than 20 m g/dL may lead to falsely low ionized calcium. CL Whole Blood 108 (H) 98 - 107 mmol/L [facility]ORATORY Gluc Whole Bld 146 65 - 199 mg/dL [facility] Comment: Diabetes: >=200 mg/dL plus symp toms. Lactate WB 1.1 0.5 - 2.2 mmol/L [facility] LABORATORY Specimen Anatomical Collection Method Collection Time Receive d Time (Source) Location / / Volume Laterality Blood Arterial Draw / 01/24/2022 6:06 AM 2021 6:18 Unknown EST AM EST Resulting Agency Comment Spec In Lab Damián TOUSSAINT CHEMISTRY ORDERABLES Performing Organization Address City/State/[place] [address] POCT Glucose (01/24/2022 3:55 AM EST) P athologist Signature POC Glucose 169 65 - 199 [facility] mg/dL [facility] Comment: Supplemental ranges: <140 mg/dL before meals <180 mg/dL all other times of the day Specimen Anatomical Collection Method Collection Time Receive d Time (Source) Location / / Volume Laterality Blood 01/24/2022 3:55 AM 3:55 EST AM EST Danny Jewell MD POINT OF CARE TEST ORDERABLE S Performing Organization Address City/State/[place] [address] (ABNORMAL) Basic Metabolic Panel (non-fasting) (01/24/2022 2:30 AM EST) P athologist Signature Glucose Lvl 156 65 - 199 [facility] mg/dL [facility] Comment: Diabetes: >=200 mg/dL plus symp toms BUN 18 10 - 20 mg/dL [facility]ORATORY Creatinine 1.15 0.80 - 1.50 mg/dL [facility]OR[facility] Comment: result rechecked-bm Sodium 141 135 - 145 mmol/L [facility] LABORATORY Potassium 3.4 (L) 3.5 - 5.0 mmol/L [facility] Comment: Please note: ??Patients with WBC >100,00 0 may have falsely elevated Potassium levels. ??For accurate Potassium quantif ication in these patients send serum separator tube (gold top) for subsequent determinations. ??Contact the Clinical Chemistry Laboratory if there are any qu estions. Chloride 108 (H) 98 - 107 mmol/L [facility] CO2 24 22 - 31 mmol/L [facility] Anion Gap 9 5 - 15 mmol/L [facility]ORATORY Calcium 7.7 (L) 8.5 - 10.5 mg/dL [facility]ORATORY Estimated GFR 65 >=60 mL/min/1.73 m?? [facility] Comment: This patient? s estimated glomerular [...] Organization Address City/State/ZIP Code Phon e Number [address] POCT Glucose (01/24/2022 2:02 AM EST) athologist Signature POC Glucose 169 65 - 199 [place] LO[facility] mg/dL [facility] Comment: Supplemental ranges: <140 mg/dL before meals <180 mg/dL all other times of the day Specimen Anatomical Collection Method Collection Time Receive d Time (Source) Location / / Volume Laterality Blood 01/24/2022 2:02 AM 2 2:02 EST AM EST Danny Jewell MD POINT OF CARE TEST ORDERABLE S Performing Organization Address City/State/ZIP Code Phon e Number [address] POCT Glucose (01/24/2022 12:59 AM EST) athologist Signature POC Glucose 160 65 - 199 [place] mg/dL [facility]ORY Comment: Supplemental ranges: <140 mg/dL before meals <180 mg/dL all other times of the day Specimen Anatomical Collection Method Collection Time Receive d Time (Source) Location / / Volume Laterality Blood 01/24/2022 12:59 01/24/2022 AM EST 12:59 AM EST Danny Jewell MD POINT OF CARE TEST ORDERABLE S Performing Organization Address City/State/ZIP Code Phon e Number [address] POCT Glucose (01/23/2022 11:56 PM EST) athologist Signature POC Glucose 179 65 - 199 [place] mg/dL [facility] Comment: Supplemental ranges: <140 mg/dL before meals <180 mg/dL all other times of the day Specimen Anatomical Collection Method Collection Time Receive d Time (Source) Location / / Volume Laterality Blood 01/23/2022 11:56 01/23/2022 PM EST 11:56 PM EST Danny Jewell MD POINT OF CARE TEST ORDERABLE S Performing Organization Address City/State/[place] [address] POCT Glucose (01/23/2022 10:01 PM EST) P athologist Signature POC Glucose 167 65 - 199 [place] mg/dL [facility] Comment: Supplemental ranges: <140 mg/dL before meals <180 mg/dL all other times of the day Specimen Anatomical Collection Method Collection Time Receive d Time (Source) Location / / Volume Laterality Blood 01/23/2022 10:01 01/23/2022 PM EST 10:01 PM EST Danny Jewell MD POINT OF CARE TEST ORDERABLE S Performing Organization Address City/[facility]/[place] [address] POCT Glucose (01/23/2022 8:49 PM EST) P athologist Signature POC Glucose 167 65 - 199 [facility] Comment: Supplemental ranges: <140 mg/dL before meals <180 mg/dL all other times of the day Specimen Anatomical Collection Method Collection Time Receive d Time (Source) Location / / Volume Laterality Blood 01/23/2022 8:49 PM 8:49 EST PM EST Danny Jewell MD POINT OF CARE TEST ORDERABLE S Performing Organization Address City/[facility]/[place] [address] (ABNORMAL) BLOOD GAS 2 ARTERIAL (01/23/2022 5:33 PM EST) Analysis Performed At Patho logist Time Signature pH Art 7.48 (H) 7.35 - [facility] 7.45 [facility] LABORATORY pCO2 Art 31 (L) 35 - 45 [facility] mmHg [facility] LABORATORY pO2 Art 87 85 - 104 [facility] LABORATORY HCO3 Art 22.2 20.0 - [facility] 26.0 [facility] mmol/L [facility] LABORATORY BE Art -1.3 -3.0 - 3.0 [facility] mmol/L [facility] LABORATORY Hgb Blood Gas 8.6 (L) 13.7 - [facility] 16.5 g/dL [facility] O2HB Art 94.6 94.0 - [facility] 97.0 % [facility] COHB Art 0.3 % [facility]ORY Comment: Nonsmokers: 0.5-1.5% COHB Smokers: Variable, but usually less than 10% Toxic: 20-30% COHB Lethal: Greater than 60% COHB METHB Art 0.9 <=1.5 % [facility] LABORATORY Na Whole Blood 136 135 - 145 mmol/L [facility] K Whole Blood 3.4 (L) 3.5 - 5.0 mmol/L [facility] LABORATORY Comment: Please note: Patients with WBC >100,000 may have falsely elevated Potassium levels. Contact the Clinical Chemistry L aboratory if there are any questions. ICa Whole Blood 1.14 (L) 1.15 - 1.33 mmol/L [facility]OR[facility]ORY Comment: Note: ??Total bilirubin higher than 20 m g/dL may lead to falsely low ionized calcium. CL Whole Blood 105 98 - 107 mmol/L [facility] Gluc Whole Bld 127 65 - 199 mg/dL [facility] LAB[facility] Comment: Diabetes: >=200 mg/dL plus symp toms. Lactate WB 1.1 0.5 - 2.2 mmol/L [facility] LABORATORY FIO2 Art 40 % [facility] LABORATORY PF Ratio Art 218 [facility] LAB[facility]ORY Specimen Anatomical Collection Method Collection Time Receive d Time (Source) Location / / Volume Laterality Blood 01/23/2022 5:33 PM 5:33 EST PM EST Danny Jewell MD CHEMISTRY ORDERABLES Performing Organization Address City/State/[place] [address] Potassium (01/23/2022 5:33 PM EST) athologist Signature Potassium 3.6 3.5 - 5.0 [facility] mmol/L [facility] Comment: Please note: ??Patients with [...] Jewell MD CHEMISTRY ORDERABLES Performing Organization Address City/[facility]/ZIP Code Phon e Number [address] POCT Glucose (01/23/2022 3:57 PM EST) athologist Signature POC Glucose 134 65 - 199 [facility] mg/dL [facility] Comment: Supplemental ranges: <140 mg/dL before meals <180 mg/dL all other times of the day Specimen Anatomical Collection Method Collection Time Receive d Time (Source) Location / / Volume Laterality Blood 01/23/2022 3:57 PM 2 3:57 EST PM EST Danny Jewell MD POINT OF CARE TEST ORDERABLE S Performing Organization Address City/[facility]/[place] [address] POCT Glucose (01/23/2022 2:20 PM EST) athologist Signature POC Glucose 122 65 - 199 [facility] mg/dL [facility] Comment: Supplemental ranges: <140 mg/dL before meals <180 mg/dL all other times of the day Specimen Anatomical Collection Method Collection Time Receive d Time (Source) Location / / Volume Laterality Blood 01/23/2022 2:20 PM 2 2:20 EST PM EST Danny Jewell MD POINT OF CARE TEST ORDERABLE S Performing Organization Address City/State/ZIP Code Phon e Number [place] [id number]OSPITAL LAB[address]ORY [address] POCT Glucose (01/23/2022 1:27 PM EST) athologist Signature POC Glucose 125 65 - 199 [facility]LE [facility]ERN[facility]NDEZLO[facility] mg/dL [facility] Comment: Supplemental ranges: <140 mg/dL before meals <180 mg/dL all other times of the day Specimen Anatomical Collection Method Collection Time Receive d Time (Source) Location / / Volume Laterality Blood 01/23/2022 1:27 PM 1:27 EST PM EST Danny Jewell MD POINT OF CARE TEST ORDERABLE S Performing Organization Address City/State/ZIP Code Phon e Number [address] POCT Glucose (01/23/2022 12:50 PM EST) athologist Signature POC Glucose 117 65 - 199 GABRIELLE FERN[facility]NDEZLOY mg/dL [facility] Comment: Supplemental ranges: <140 mg/dL before meals <180 mg/dL all other times of the day Specimen Anatomical Collection Method Collection Time Receive d Time (Source) Location / / Volume Laterality Blood 01/23/2022 12:50 01/23/2022 PM EST 12:50 PM EST Danny Jewell MD POINT OF CARE TEST ORDERABLE S Performing Organization Address City/State/ZIP Code Phon e Number [place] [id number] [facility] LAB[address]ORY Drive POCT Glucose (01/23/2022 10:37 AM EST) athologist Signature POC Glucose 142 65 - 199 [place] LOY mg/dL [facility] Comment: Supplemental ranges: <140 mg/dL before meals <180 mg/dL all other times of the day Specimen Anatomical Collection Method Collection Time Receive d Time (Source) Location / / Volume Laterality Blood 01/23/2022 10:37 01/23/2022 AM EST 10:37 AM EST Danny Jewell MD POINT OF CARE TEST ORDERABLE S Performing Organization Address City/State/ZIP Code Phon e Number [address] POCT Glucose (01/23/2022 7:55 AM EST) P athologist Signature POC Glucose 146 65 - 199 [facility] mg/dL [facility] Comment: Supplemental ranges: <140 mg/dL before meals <180 mg/dL all other times of the day Specimen Anatomical Collection Method Collection Time Receive d Time (Source) Location / / Volume Laterality Blood 01/23/2022 7:55 AM 7:55 EST AM EST Danny Jewell MD POINT OF CARE TEST ORDERABLE S Performing Organization Address City/State/ZIP Code Phon e Number [address] (ABNORMAL) Differential, Automated (01/23/2022 6:10 AM EST) Patholo gist Method Time Signature Neutrophils % 82.9 % [facility]ORATORY Neutr Abs (ANC) 8.47 (H) 1.70 - [facility] 6.10 [facility] x10(3)/[facility] L LABORATORY Lymphocytes % 8.2 % [facility] LABORATORY Lymphocytes Abs 0.8 (L) 0.9 - 3.2 [facility] x10(3)/[facility] LABORATORY Monocytes % 7.8 % [facility] LABORATORY Monocyte Abs 0.8 0.3 - 0.9 [facility] x10(3)/[facility] LABORATORY Eosinophils % 0.2 % [facility] LABORATORY Eosinophils Abs 0.0 0.0 - 0.4 [facility] x10(3)/[facility] LABORATORY Basophils % 0.2 % [facility] LABORATORY Basophils Abs 0.0 0.0 - 0.1 [facility] x10(3)/[facility] LABORATORY Immature Gran % 0.70 % [facility]ORATORY Comment: Immature granulocytes(IG's)percentage an d absolute count will include metamyelocytes, myelocytes, and promyelo cytes. Blood smears from CBCs yielding IG's will be scanned manually for concor dance. If this scan disagrees with the automated IG or if promyelocytes are not ed, a manual differential will be performed. Nikole Gran Abs 0.07 (H) 0.00 - 0.04 x10(3)/[facility] LABORATORY Specimen Anatomical Collection Method Collection Time Receive d Time (Source) Location / / Volume Laterality Blood 01/23/2022 6:10 AM 6:55 EST AM EST Resulting Agency Comment Spec In Lab Damián TOUSSAINT HEMATOLOGY ORDERABLES Performing Organization Address City/State/[place] [address] (ABNORMAL) Hemogram (01/23/2022 6:10 AM EST) athologist Signature WBC 10.2 (H) 4.0 - 9.5 [facility] x10(3)/[facility] LABORATORY RBC 2.56 (L) 4.58 - [facility] 5.54 [facility] x10(6)/[facility] LABORATORY Hemoglobin 8.2 (L) 13.7 - [facility] 16.5 g/dL [facility] LABORATORY Comment: This result has been called to RICHARD BRUNO by Rigoberto Brown on 01 23 2022 at 0821, and has been read back. Hematocrit 22.6 (L) 40.5 - 48.5 % [facility] LABORATORY MCV 88.3 82.9 - 93.1 [facility] LABORATORY MCH 32.0 27.5 - 32.1 pg [facility] LABORATORY MCHC 36.3 (H) 32.0 - 35.7 g/dL [facility] LABORATORY Platelets 129 (L) 145 - 357 x10(3)/[facility] LABORATORY RDWSD 43.8 36.0 - 45.0 [facility] LABORATORY RDWCV 13.8 11.4 - 13.8 % [facility] LABORATORY MPV 10.1 7.6 - 12.9 [facility] LABORATORY nRBC % Auto 0.0 % [facility] LABORATORY nRBC Abs Auto 0.000 0.000 - 0.000 x10(3)/[facility] LABORATORY Specimen Anatomical Collection Method Collection Time Receive d Time (Source) Location / / Volume Laterality Blood 01/23/2022 6:10 AM 6:55 EST AM EST Resulting Agency Comment Spec In Lab Damián TOUSSAINT HEMATOLOGY ORDERABLES Performing Organization Address City/State/[place] [address] (ABNORMAL) BLOOD GAS 2 ARTERIAL (01/23/2022 6:08 AM EST) Analysis Performed At Patho logist Time Signature pH Art 7.38 7.35 - [facility] 7.45 [facility] LABORATORY pCO2 Art 37 35 - 45 [facility] LABORATORY pO2 Art 92 85 - 104 [facility] LABORATORY HCO3 Art 21.2 20.0 - [facility] 26.0 [facility] mmol/[facility] LABORATORY BE Art -3.9 (L) -3.0 - 3.0 [facility] mmol/L [facility] LABORATORY Hgb Blood Gas 8.7 (L) 13.7 - [facility] 16.5 g/dL [facility] LABORATORY O2HB Art 95.5 94.0 - [facility] 97.0 % [facility] LABORATORY COHB Art 0.0 % [facility] LABORATORY Comment: Nonsmokers: 0.5-1.5% COHB Smokers: Variable, but usually less than 10% Toxic: 20-30% COHB Lethal: Greater than 60% COHB METHB Art 0.6 <=1.5 % [facility] LABORATORY Na Whole Blood 129 (L) 135 - 145 mmol/L [facility] LABORAT[facility] K Whole Blood 3.8 3.5 - 5.0 mmol/L [facility] LABORATORY Comment: Please note: Patients with WBC >100,000 may have falsely elevated Potassium levels. Contact the Clinical Chemistry L aboratory if there are any questions. ICa Whole Blood 1.06 (L) 1.15 - 1.33 mmol/L [facility]ORATORY Comment: Note: ??Total bilirubin higher than 20 m g/dL may lead to falsely low ionized calcium. CL Whole Blood 105 98 - 107 mmol/L [facility]ORY Gluc Whole Bld 157 65 - 199 mg/dL [facility] LABORATORY Comment: Diabetes: >=200 mg/dL plus symp toms. Lactate WB 1.8 0.5 - 2.2 mmol/L [facility] LABORATORY FIO2 Art 50 % [facility] LABORATORY PF Ratio Art 184 [facility] LABORATORY Specimen Anatomical Collection Method Collection Time Receive d Time (Source) Location / / Volume Laterality Blood 01/23/2022 6:08 AM 2 6:08 EST AM EST Danny Jewell MD CHEMISTRY ORDERABLES Performing Organization Address City/Hospital [facility] [employer] [facility] [employer]/ZIP Code Phon e Number [address] POCT Glucose (01/23/2022 5:13 AM EST) P athologist Signature POC Glucose 178 65 - 199 [facility]dL [facility] LABORATORY Comment: Supplemental ranges: <140 mg/dL before meals <180 mg/dL all other times of the day Specimen Anatomical Collection Method Collection Time Receive d Time (Source) Location / / Volume Laterality Blood 01/23/2022 5:13 AM 2 5:13 EST AM EST Danny Jewell MD POINT OF CARE TEST ORDERABLE S Performing Organization Address City/[facility]/ZIP Code Phon e Number [address] POCT Glucose (01/23/2022 3:25 AM EST) P athologist Signature POC Glucose 184 65 - 199 [facility] Comment: Supplemental ranges: <140 mg/dL before meals <180 mg/dL all other times of the day Specimen Anatomical Collection Method Collection Time Receive d Time (Source) Location / / Volume Laterality Blood 01/23/2022 3:25 AM 2 3:25 EST AM EST Danny Jewell MD POINT OF CARE TEST ORDERABLE S Performing Organization Address City/[facility]/ZIP Code Phon e Number [facility] [place] [address] (ABNORMAL) Basic Metabolic Panel (non-fasting) (01/23/2022 2:00 AM EST) P athologist Signature Glucose Lvl 193 65 - 199 [facility] mg/dL [facility] LABORATORY Comment: Diabetes: >=200 mg/dL plus symp toms BUN 25 (H) 10 - 20 mg/dL [facility] LABORATORY Creatinine 2.06 (H) 0.80 - 1.50 mg/dL [facility] LABORATORY Sodium 135 135 - 145 mmol/L [facility] LABORATORY Potassium 4.5 3.5 - 5.0 mmol/L [facility] LABORATORY Comment: Please note: ??Patients with WBC >100,00 0 may have falsely elevated Potassium levels. ??For accurate Potassium quantif ication in these patients send serum separator tube (gold top) for subsequent determinations. ??Contact the Clinical Chemistry Laboratory if there are any qu estions. Chloride 104 98 - 107 mmol/L [facility] LABORATORY CO2 20 (L) 22 - 31 mmol/L [facility] LABORATORY Anion Gap 11 5 - 15 mmol/L [facility] LABORATORY Calcium 7.8 (L) 8.5 - 10.5 mg/dL [facility] LABORATORY Estimated GFR 32 (L) >=60 mL/min/1.73 m?? [facility] LABORATORY Comment: This patient? s estimated glomerular [...] Organization Address City/State/[place] [address] POCT Glucose (01/23/2022 1:58 AM EST) P athologist Signature POC Glucose 194 65 - 199 [facility] mg/dL [facility] LABOR[facility] Comment: Supplemental ranges: <140 mg/dL before meals <180 mg/dL all other times of the day Specimen Anatomical Collection Method Collection Time Receive d Time (Source) Location / / Volume Laterality Blood 01/23/2022 1:58 AM 2 1:58 EST AM EST Danny Jewell MD POINT OF CARE TEST ORDERABLE S Performing Organization Address City/[facility]/[place] [address] POCT Glucose (01/23/2022 1:08 AM EST) P athologist Signature POC Glucose 193 65 - 199 [facility] mg/dL [facility] LABOR[facility] Comment: Supplemental ranges: <140 mg/dL before meals <180 mg/dL all other times of the day Specimen Anatomical Collection Method Collection Time Receive d Time (Source) Location / / Volume Laterality Blood 01/23/2022 1:08 AM 2 1:08 EST AM EST Danny Jewell MD POINT OF CARE TEST ORDERABLE S Performing Organization Address City/State/[place] [address] (ABNORMAL) BLOOD GAS 2 ARTERIAL (01/22/2022 11:58 PM EST) Analysis Performed At Patho logist Time Signature pH Art 7.38 7.35 - [facility] 7.45 [facility] LABORATORY pCO2 Art 35 35 - 45 [facility] mmHg [facility] LABORATORY pO2 Art 94 85 - 104 [facility] LABORATORY HCO3 Art 20.3 20.0 - [facility] 26.0 [facility] mmol/L [facility] LABORATORY BE Art -4.8 (L) -3.0 - 3.0 [facility] mmol/L [facility] LABORATORY Hgb Blood Gas 9.5 (L) 13.7 - [facility] 16.5 g/dL [facility] LABORAT[facility] O2HB Art 95.3 94.0 - [facility] 97.0 % [facility] LABORATORY COHB Art 0.2 % [facility] LABORATORY Comment: Nonsmokers: 0.5-1.5% COHB Smokers: Variable, but usually less than 10% Toxic: 20-30% COHB Lethal: Greater than 60% COHB METHB Art 0.8 <=1.5 % [facility] LABORATORY Na Whole Blood 130 (L) 135 - 145 mmol/L [facility] LABORATORY K Whole Blood 4.3 3.5 - 5.0 mmol/L [facility] LABORATORY Comment: Please note: Patients with WBC >100,000 may have falsely elevated Potassium levels. Contact the Clinical Chemistry L aboratory if there are any questions. ICa Whole Blood 1.08 (L) 1.15 - 1.33 mmol/L [facility] LABORATORY Comment: Note: ??Total bilirubin higher than 20 m g/dL may lead to falsely low ionized calcium. CL Whole Blood 104 98 - 107 mmol/L [facility] LABORATORY Gluc Whole Bld 171 65 - 199 mg/dL [facility] LABORATORY Comment: Diabetes: >=200 mg/dL plus symp toms. Lactate WB 1.3 0.5 - 2.2 mmol/L [facility] LABORATORY FIO2 Art 50 % [facility] LABORATORY PF Ratio Art 188 [facility] LABORATORY Specimen Anatomical Collection Method Collection Time Receive d Time (Source) Location / / Volume Laterality Blood 01/22/2022 11:58 01/22/2022 PM EST 11:58 PM EST Danny Jewell MD CHEMISTRY ORDERABLES Performing Organization Address City/State/[place] [address] POCT Glucose (01/22/2022 11:41 PM EST) athologist Signature POC Glucose 193 65 - 199 [facility] mg/dL [facility] Comment: Supplemental ranges: <140 mg/dL before meals <180 mg/dL all other times of the day Specimen Anatomical Collection Method Collection Time Receive d Time (Source) Location / / Volume Laterality Blood 01/22/2022 11:41 01/22/2022 PM EST 11:41 PM EST Danny Jewell MD POINT OF CARE TEST ORDERABLE S Performing Organization Address City/State/[place] [address] POCT Glucose (01/22/2022 10:48 PM EST) athologist Signature POC Glucose 147 65 - 199 [facility] mg/dL [facility] Comment: Supplemental ranges: <140 mg/dL before meals <180 mg/dL all other times of the day Specimen Anatomical Collection Method Collection Time Receive d Time (Source) Location / / Volume Laterality Blood 01/22/2022 10:48 01/22/2022 PM EST 10:48 PM EST Danny Jewell MD POINT OF CARE TEST ORDERABLE S Performing Organization Address City/State/[place] [address] POCT Glucose (01/22/2022 9:44 PM EST) athologist Signature POC Glucose 136 65 - 199 [facility] mg/dL [facility] Comment: Supplemental ranges: <140 mg/dL before meals <180 mg/dL all other times of the day Specimen Anatomical Collection Method Collection Time Receive d Time (Source) Location / / Volume Laterality Blood 01/22/2022 9:44 PM 9:44 EST PM EST Danny Jewell MD POINT OF CARE TEST ORDERABLE S Performing Organization Address City/State/[place] [address] POCT Glucose (01/22/2022 8:52 PM EST) athologist Signature POC Glucose 111 65 - 199 [facility] mg/dL [facility] Comment: Supplemental ranges: <140 mg/dL before meals <180 mg/dL all other times of the day Specimen Anatomical Collection Method Collection Time Receive d Time (Source) Location / / Volume Laterality Blood 01/22/2022 8:52 PM 2 8:52 EST PM EST Danny Jewell MD POINT OF CARE TEST ORDERABLE S Performing Organization Address City/State/[place] [address] POCT Glucose (01/22/2022 8:01 PM EST) P athologist Signature POC Glucose 120 65 - 199 [facility] mg/dL [facility] LAB[facility] Comment: Supplemental ranges: <140 mg/dL before meals <180 mg/dL all other times of the day Specimen Anatomical Collection Method Collection Time Receive d Time (Source) Location / / Volume Laterality Blood 01/22/2022 8:01 PM 2 8:01 EST PM EST Danny Jewell MD POINT OF CARE TEST ORDERABLE S Performing Organization Address City/State/[place] [address] POCT Glucose (01/22/2022 6:30 PM EST) P athologist Signature POC Glucose 101 65 - 199 [facility] mg/dL [facility] Comment: Supplemental ranges: <140 mg/dL before meals <180 mg/dL all other times of the day Specimen Anatomical Collection Method Collection Time Receive d Time (Source) Location / / Volume Laterality Blood 01/22/2022 6:30 PM 2 6:30 EST PM EST Danny Jewell MD POINT OF CARE TEST ORDERABLE S Performing Organization Address City/State/[place] [address] (ABNORMAL) BLOOD GAS 2 ARTERIAL (01/22/2022 5:56 PM EST) Analysis Performed At Patho logist Time Signature pH Art 7.34 (L) 7.35 - [facility] 7.45 [facility] LABORATORY pCO2 Art 35 35 - 45 [facility] LABORATORY pO2 Art 79 (L) 85 - 104 [facility] LABORATORY HCO3 Art 18.8 (L) 20.0 - [facility] 26.0 [facility] BE Art -6.9 (L) -3.0 - 3.0 [facility] mmol/L [facility] LABORATORY Hgb Blood Gas 10.5 (L) 13.7 - [facility] 16.5 g/dL [facility] O2HB Art 93.5 (L) 94.0 - [facility] 97.0 % [facility] COHB Art 0.2 % [facility] LABORATORY Comment: Nonsmokers: 0.5-1.5% COHB Smokers: Variable, but usually less than 10% Toxic: 20-30% COHB Lethal: Greater than 60% COHB METHB Art 0.8 <=1.5 % [facility] LABORATORY Na Whole Blood 133 (L) 135 - 145 mmol/L [facility] LABORATORY K Whole Blood 4.0 3.5 - 5.0 mmol/L [facility] LABORATORY Comment: Please note: Patients with WBC >100,000 may have falsely elevated Potassium levels. Contact the Clinical Chemistry L aboratory if there are any questions. ICa Whole Blood 1.11 (L) 1.15 - 1.33 mmol/L [facility] LABORATORY Comment: Note: ??Total bilirubin higher than 20 m g/dL may lead to falsely low ionized calcium. CL Whole Blood 107 98 - 107 mmol/L [facility]ORATORY Gluc Whole Bld 97 65 - 199 mg/dL [facility] LABORATORY Comment: Diabetes: >=200 mg/dL plus symp toms. Lactate WB 1.6 0.5 - 2.2 mmol/L [facility] LABORATORY FIO2 Art 50 % [facility] LABORATORY PF Ratio Art 158 [facility] LABORATORY Specimen Anatomical Collection Method Collection Time Receive d Time (Source) Location / / Volume Laterality Blood 01/22/2022 5:56 PM 5:56 EST PM EST Danny Jewell MD CHEMISTRY ORDERABLES Performing Organization Address City/State/[place] [address] POCT Glucose (01/22/2022 4:54 PM EST) athologist Signature POC Glucose 125 65 - 199 [facility] mg/dL [facility] Comment: Supplemental ranges: <140 mg/dL before meals <180 mg/dL all other times of the day Specimen Anatomical Collection Method Collection Time Receive d Time (Source) Location / / Volume Laterality Blood 01/22/2022 4:54 PM 2 4:54 EST PM EST Danny Jewell MD POINT OF CARE TEST ORDERABLE S Performing Organization Address City/[facility]/[place] [address] POCT Glucose (01/22/2022 3:48 PM EST) athologist Signature POC Glucose 127 65 - 199 [facility] Comment: Supplemental ranges: <140 mg/dL before meals <180 mg/dL all other times of the day Specimen Anatomical Collection Method Collection Time Receive d Time (Source) Location / / Volume Laterality Blood 01/22/2022 3:48 PM 2 3:48 EST PM EST Danny Jewell MD POINT OF CARE TEST ORDERABLE S Performing Organization Address City/[facility]/[place] [address] Potassium (01/22/2022 3:15 PM EST) athologist Signature Potassium 4.5 3.5 - 5.0 [facility] mmol/L [facility] Comment: Please note: ??Patients with [...] Organization Address City/State/ZIP Code Phon e Number [address] POCT Glucose (01/22/2022 3:14 PM EST) P athologist Signature POC Glucose 149 65 - 199 [facility] mg/dL [facility] Comment: Supplemental ranges: <140 mg/dL before meals <180 mg/dL all other times of the day Specimen Anatomical Collection Method Collection Time Receive d Time (Source) Location / / Volume Laterality Blood 01/22/2022 3:14 PM 2 3:14 EST PM EST Danny Jewell MD POINT OF CARE TEST ORDERABLE S Performing Organization Address City/[facility]/[place] [address] POCT Glucose (01/22/2022 2:01 PM EST) athologist Signature POC Glucose 160 65 - 199 [facility] mg/dL [facility] Comment: Supplemental ranges: <140 mg/dL before meals <180 mg/dL all other times of the day Specimen Anatomical Collection Method Collection Time Receive d Time (Source) Location / / Volume Laterality Blood 01/22/2022 2:01 PM 2 2:01 EST PM EST Danny Jewell MD POINT OF CARE TEST ORDERABLE S Performing Organization Address City/[facility]/[place] [address] (ABNORMAL) BLOOD GAS 2 ARTERIAL (01/22/2022 1:10 PM EST) Analysis Performed At Patho logist Time Signature pH Art 7.33 (L) 7.35 - [facility] 7.45 [facility] LABORATORY pCO2 Art 38 35 - 45 [facility] LABORATORY pO2 Art 76 (L) 85 - 104 [facility] LABORATORY HCO3 Art 19.7 (L) 20.0 - [facility] 26.0 [facility] mmol/[facility] LABORATORY BE Art -6.2 (L) -3.0 - 3.0 [facility] mmol/L [facility]ORATORY Hgb Blood Gas 10.8 (L) 13.7 - [facility] 16.5 g/dL [facility] O2HB Art 93.0 (L) 94.0 - [facility] 97.0 % [facility] COHB Art 0.3 % [facility] LABORATORY Comment: Nonsmokers: 0.5-1.5% COHB Smokers: Variable, but usually less than 10% Toxic: 20-30% COHB Lethal: Greater than 60% COHB METHB Art 0.8 <=1.5 % [facility] LABORATORY Na Whole Blood 132 (L) 135 - 145 mmol/L [facility]ORATORY K Whole Blood 4.0 3.5 - 5.0 mmol/L [facility] LABORATORY Comment: Please note: Patients with WBC >100,000 may have falsely elevated Potassium levels. Contact the Clinical Chemistry L aboratory if there are any questions. ICa Whole Blood 1.12 (L) 1.15 - 1.33 mmol/L [facility]ORATORY Comment: Note: ??Total bilirubin higher than 20 m g/dL may lead to falsely low ionized calcium. CL Whole Blood 107 98 - 107 mmol/L [facility]ORY Gluc Whole Bld 149 65 - 199 mg/dL [facility] LABORATORY Comment: Diabetes: >=200 mg/dL plus symp toms. Lactate WB 1.9 0.5 - 2.2 mmol/L [facility] LABORATORY FIO2 Art 50 % [facility] PF Ratio Art 152 [facility] LABORATORY Specimen Anatomical Collection Method Collection Time Receive d Time (Source) Location / / Volume Laterality Blood 01/22/2022 1:10 PM 1:10 EST PM EST Danny Jewell MD CHEMISTRY ORDERABLES Performing Organization Address City/State/[place] [address] (ABNORMAL) Coox2 (01/22/2022 12:34 PM EST) Analysis Performed At Patho logist Time Signature pO2 Coox 32 mmHg [facility] LABORATORY Hgb Blood Gas 11.3 (L) 13.7 - [facility] 16.5 g/dL [facility] O2HB Coox 63.4 % [facility] COHB Coox 0.3 % [facility]ORY Comment: Nonsmokers: 0.5-1.5% COHB Smokers: Variable, but usually less than 10% Toxic: 20-30% COHB Lethal: Greater than 60% COHB METHB Coox 0.7 <=1.5 % [facility] LABORATORY Source Coox Mixed Venous [facility] LABORATORY Specimen Anatomical Collection Method Collection Time Receive d Time (Source) Location / / Volume Laterality Blood 01/22/2022 12:34 01/22/2022 PM EST 12:34 PM EST Danny Jewell MD CHEMISTRY ORDERABLES Performing Organization Address City/[facility]/[place] [address] POCT Glucose (01/22/2022 11:02 AM EST) athologist Signature POC Glucose 176 65 - 199 [facility]dL [facility] Comment: Supplemental ranges: <140 mg/dL before meals <180 mg/dL all other times of the day Specimen Anatomical Collection Method Collection Time Receive d Time (Source) Location / / Volume Laterality Blood 01/22/2022 11:02 01/22/2022 AM EST 11:02 AM EST Danny Jewell MD POINT OF CARE TEST ORDERABLE S Performing Organization Address City/State/[place] [address] (ABNORMAL) POCT Glucose (01/22/2022 9:22 AM EST) P athologist Signature POC Glucose 257 (H) 65 - 199 [facility] Comment: Supplemental ranges: <140 mg/dL before meals <180 mg/dL all other times of the day Specimen Anatomical Collection Method Collection Time Receive d Time (Source) Location / / Volume Laterality Blood 01/22/2022 9:22 AM 03/09/202 2 9:22 EST AM EST Danny Jewell MD POINT OF CARE TEST ORDERABLE S Performing Organization Address City/State/[place] [address] (ABNORMAL) POCT Glucose (01/22/2022 7:53 AM EST) P athologist Signature POC Glucose 237 (H) 65 - 199 [facility] mg/dL [facility] Comment: Supplemental ranges: <140 mg/dL before meals <180 mg/dL all other times of the day Specimen Anatomical Collection Method Collection Time Receive d Time (Source) Location / / Volume Laterality Blood 01/22/2022 7:53 AM 2 7:53 EST AM EST Danny Jewell MD POINT OF CARE TEST ORDERABLE S Performing Organization Address City/State/[place] [address] (ABNORMAL) BLOOD GAS 2 ARTERIAL (01/22/2022 6:35 AM EST) Analysis Performed At Patho logist Time Signature pH Art 7.30 (L) 7.35 - [facility] 7.45 [facility] LABOR[facility] pCO2 Art 38 35 - 45 [facility] mmHg [facility] LABORATORY pO2 Art 79 (L) 85 - 104 [facility] LABORATORY HCO3 Art 18.0 (L) 20.0 - [facility] 26.0 [facility] mmol/L [facility] LABORATORY BE Art -8.5 (L) -3.0 - 3.0 [facility] mmol/L [facility] LABORATORY Hgb Blood Gas 11.4 (L) 13.7 - [facility] 16.5 g/dL [facility] O2HB Art 92.8 (L) 94.0 - [facility] 97.0 % [facility] COHB Art 0.3 % [facility]ORY Comment: Nonsmokers: 0.5-1.5% COHB Smokers: Variable, but usually less than 10% Toxic: 20-30% COHB Lethal: Greater than 60% COHB METHB Art 0.7 <=1.5 % [facility]ORATORY Na Whole Blood 134 (L) 135 - 145 mmol/L [facility]ORAT[facility] K Whole Blood 3.9 3.5 - 5.0 mmol/L [facility] LABORATORY Comment: Please note: Patients with WBC >100,000 may have falsely elevated Potassium levels. Contact the Clinical Chemistry L aboratory if there are any questions. ICa Whole Blood 1.17 1.15 - 1.33 mmol/L [facility] Comment: Note: ??Total bilirubin higher than 20 m g/dL may lead to falsely low ionized calcium. CL Whole Blood 106 98 - 107 mmol/L [facility] LABORATORY Gluc Whole Bld 233 (H) 65 - 199 mg/dL [facility] LABORATORY Comment: Diabetes: >=200 mg/dL plus symp toms. Lactate WB 3.2 (H) 0.5 - 2.2 mmol/L [facility]ORATORY FIO2 Art 50 % [facility]OR[facility] PF Ratio Art 158 [facility] LABOR[facility]ORY Specimen Anatomical Collection Method Collection Time Receive d Time (Source) Location / / Volume Laterality Blood 01/22/2022 6:35 AM 6:35 EST AM EST Danny Jewell MD CHEMISTRY ORDERABLES Performing Organization Address City/[facility]/[place] [address] IgA (01/22/2022 6:35 AM EST) P athologist Signature IgA 109 70 - 400 [facility] mg/dL [facility] LABOR[facility]ORY Specimen Anatomical Collection Method Collection Time Receive d Time (Source) Location / / Volume Laterality Blood 01/22/2022 6:35 AM 6:44 EST AM EST Resulting Agency Comment Spec In Lab Danny Jewell MD IMMUNOLOGY ORDERABLES Performing Organization Address City/[facility]/[place] [address] (ABNORMAL) POCT Glucose (01/22/2022 5:48 AM EST) athologist Signature POC Glucose 271 (H) 65 - 199 [facility] Comment: Supplemental ranges: <140 mg/dL before meals <180 mg/dL all other times of the day Specimen Anatomical Collection Method Collection Time Receive d Time (Source) Location / / Volume Laterality Blood 01/22/2022 5:48 AM 2 5:48 EST AM EST Danny Jewell MD POINT OF CARE TEST ORDERABLE S Performing Organization Address City/State/[place] [address] (ABNORMAL) POCT Glucose (01/22/2022 4:41 AM EST) P athologist Signature POC Glucose 249 (H) 65 - 199 [facility] Comment: Supplemental ranges: <140 mg/dL before meals <180 mg/dL all other times of the day Specimen Anatomical Collection Method Collection Time Receive d Time (Source) Location / / Volume Laterality Blood 01/22/2022 4:41 AM 2 4:41 EST AM EST Danny Jewell MD POINT OF CARE TEST ORDERABLE S Performing Organization Address City/[facility]/[place] [address] COVID-19 PCR (01/22/2022 2:45 AM EST) Patholo gist Method Time Signature SARS-CoV-2 Not Detected Not Detected GABRIELLE RNA PCR [facility] LABORATORY Comment: This result should be [...] using the Simplex[employer] COVID-19 Direct Assay by [employer] as authorized by the FDA issued Emergency [...] Department of Pathology and Laboratory Medicine at [facility], certified under the Clinical Laboratory Improvement Amendmen [...] clinical management guidance information are available at [facility] CDC Coronavirus Disease 2019 (COVID-19) webpage under Information fo r Healthcare Professionals (https://www.cdc.gov/coronavirus/2019-nc ov/hcp/index.html). Additional information about this and ot her EUA tests can be found in provider and patient fact sheets at the following FDA website: https://www.fda.gov/medical-devices/ctqfopjmclo-xohhplz-9485-kbekm-34-xzkbcaewr- cvh-ewtkfpccebaaym-tysjowr-devices/dugut-jkvanpaicaz-zhjl SARS-CoV-2 Source [facility]ACE [employer] Swab [facility] Specimen (Source) Anatomical Collection Method Collection Time Re ceived Time Location / / Volume Laterality Nasopharyngeal Swab 01/22/2022 2:45 01/22 AM EST 3:50 AM EST Comment: Symptoms->Surveillance Resulting Agency Comment Spec In Lab Danny Jewell MD MICROBIOLOGY - GENERAL ORDER CATHY Performing Organization Address City/State/[place] [address] (ABNORMAL) Coox2 (01/22/2022 2:16 AM EST) Analysis Performed At [facility] Time Signature pO2 Coox 33 mmHg [facility] Hgb Blood Gas 12.1 (L) 13.7 - [facility] 16.5 g/dL [facility] O2HB Coox 61.5 % [facility] COHB Coox 0.4 % [facility] Comment: Nonsmokers: 0.5-1.5% COHB Smokers: Variable, but usually less than 10% Toxic: 20-30% COHB Lethal: Greater than 60% COHB METHB Coox 0.8 <=1.5 % [facility] Source Coox Mixed Venous [facility] Specimen Anatomical Collection Method Collection Time Receive d Time (Source) Location / / Volume Laterality Blood 01/22/2022 2:16 AM 2:16 EST AM EST Danny Jewell MD CHEMISTRY ORDERABLES Performing Organization Address City/State/[place] [address] (ABNORMAL) BLOOD GAS 2 ARTERIAL (01/22/2022 2:12 AM EST) Analysis Performed At [facility] Time Signature pH Art 7.31 (L) 7.35 - [facility] 7.45 [facility] pCO2 Art 38 35 - 45 [facility] LABORATORY pO2 Art 85 85 - 104 [facility]ORATORY HCO3 Art 18.7 (L) 20.0 - [facility] 26.0 [facility] mmol/L [facility] BE Art -7.6 (L) -3.0 - 3.0 [facility] mmol/L [facility] Hgb Blood Gas 11.5 (L) 13.7 - [facility] 16.5 g/dL [facility] O2HB Art 93.9 (L) 94.0 - [facility] 97.0 % [facility] COHB Art 0.3 % [facility] Comment: Nonsmokers: 0.5-1.5% COHB Smokers: Variable, but usually less than 10% Toxic: 20-30% COHB Lethal: Greater than 60% COHB METHB Art 0.8 <=1.5 % [facility] Na Whole Blood 134 (L) 135 - 145 mmol/L [facility] K Whole Blood 4.4 3.5 - 5.0 mmol/L [facility] Comment: Please note: Patients with WBC >100,000 may have falsely elevated Potassium levels. Contact the Clinical Chemistry L aboratory if there are any questions. ICa Whole Blood 1.16 1.15 - 1.33 mmol/L [facility] Comment: Note: ??Total bilirubin higher than 20 m g/dL may lead to falsely low ionized calcium. CL Whole Blood 108 (H) 98 - 107 mmol/L [facility] Gluc Whole Bld 266 (H) 65 - 199 mg/dL [facility] Comment: Diabetes: >=200 mg/dL plus symp toms. Lactate WB 2.9 (H) 0.5 - 2.2 mmol/L [facility] FIO2 Art 50 % [facility] PF Ratio Art 170 [facility] Specimen Anatomical Collection Method Collection Time Receive d Time (Source) Location / / Volume Laterality Blood 01/22/2022 2:12 AM 2 2:12 EST AM EST Danny Jewell MD CHEMISTRY ORDERABLES Performing Organization Address City/State/[place] [address] (ABNORMAL) Differential, Automated (01/22/2022 2:00 AM EST) [facility] gist Method Time Signature Neutrophils % 90.1 % [facility] Neutr Abs (ANC) 16.17 (H) 1.70 - [facility] 6.10 [facility] x10(3)/[facility] LABORATORY Lymphocytes % 4.9 % [facility] Lymphocytes Abs 0.9 0.9 - 3.2 [facility] x10(3)/[facility] LABORATORY Monocytes % 4.0 % [facility] Monocyte Abs 0.7 0.3 - 0.9 [facility] x10(3)/[facility] LABORATORY Eosinophils % 0.1 % [facility] Eosinophils Abs 0.0 0.0 - 0.4 [facility] x10(3)/[facility] LABORATORY Basophils % 0.4 % [facility] Basophils Abs 0.1 0.0 - 0.1 [facility] x10(3)/[facility] LABORATORY Immature Gran % 0.50 % [facility] Comment: Immature granulocytes(IG's)percentage an d absolute count will include metamyelocytes, myelocytes, and promyelo cytes. Blood smears from CBCs yielding IG's will be scanned manually for concor dance. If this scan disagrees with the automated IG or if promyelocytes are not ed, a manual differential will be performed. Nikole Gran Abs 0.09 (H) 0.00 - 0.04 x10(3)/[facility] LABORATORY Specimen Anatomical Collection Method Collection Time Receive d Time (Source) Location / / Volume Laterality Blood 01/22/2022 2:00 AM 2:16 EST AM EST Resulting Agency Comment Spec In Lab [facility] HEMATOLOGY ORDERABLES Performing Organization Address City/State/[place] [address] (ABNORMAL) Hemogram (01/22/2022 2:00 AM EST) [facility] gist Method Time Signature WBC 17.9 (H) 4.0 - 9.5 [facility] x10(3)/[facility] LABORATORY RBC 3.70 (L) 4.58 - [facility] 5.54 [facility] x10(6)/[facility] LABORATORY Hemoglobin 11.7 (L) 13.7 - [facility] 16.5 g/dL [facility] Hematocrit 32.9 (L) 40.5 - [facility] 48.5 % [facility] MCV 88.9 82.9 - [facility] 93.1 fL [facility] MCH 31.6 27.5 - [facility] 32.1 [facility] LABORATORY MCHC 35.6 32.0 - [facility] 35.7 g/dL [facility] Platelets 235 145 - 357 [facility] x10(3)/[facility] LABORATORY RDWSD 41.9 36.0 - [facility] 45.0 [facility] LABORATORY RDWCV 13.0 11.4 - [facility] 13.8 % [facility] MPV 10.0 7.6 - 12.9 [facility] LABORATORY nRBC % Auto 0.1 % [facility] nRBC Abs Auto 0.020 (H) 0.000 - [facility] 0.000 [facility] x10(3)/[facility] LABORATORY Specimen Anatomical Collection Method Collection Time Receive d Time (Source) Location / / Volume Laterality Blood 01/22/2022 2:00 AM 2:16 EST AM EST Resulting Agency Comment Spec In Lab [facility] HEMATOLOGY ORDERABLES Performing Organization Address City/State/[place] [address] (ABNORMAL) Basic Metabolic Panel (non-fasting) (01/22/2022 2:00 AM EST) P athologist Signature Glucose Lvl 293 (H) 65 - 199 [facility] mg/dL [facility] Comment: Diabetes: >=200 mg/dL plus symp toms BUN 20 10 - 20 mg/dL [facility] Creatinine 1.63 (H) 0.80 - 1.50 mg/dL [facility] Sodium 137 135 - 145 mmol/L [facility] Potassium 4.9 3.5 - 5.0 mmol/L [facility] Comment: Please note: ??Patients with WBC >100,00 0 may have falsely elevated Potassium levels. ??For accurate Potassium quantif ication in these patients send serum separator tube (gold top) for subsequent determinations. ??Contact the Clinical Chemistry Laboratory if there are any qu estions. Chloride 106 98 - 107 mmol/L [facility] CO2 19 (L) 22 - 31 mmol/L [facility] Anion Gap 12 5 - 15 mmol/L [facility] Calcium 8.2 (L) 8.5 - 10.5 mg/dL [facility] Estimated GFR 43 (L) >=60 mL/min/1.73 m?? [facility] Comment: This patient? s estimated glomerular [...] Organization Address City/State/[place] [address] (ABNORMAL) Troponin (01/22/2022 2:00 AM EST) P athologist Signature Troponin-T 1.07 (H) 0.00 - [facility] 0.00 ng/mL [facility] Comment: The 99th percentile for Troponin T is le ss than 0.01 ng/mL, any detectable cTnT concentration using this assay should be considered elevated. According to the third universal definit ion of myocardial infarction the following criteria with a clinical prese ntation consistent with acute myocardial ischemia meets the diagnosis for a myocardial infarction (NE). Detection of a rise and/or fall of [...] additional sample may be indicated. Reference: Third Colver Definition of Myocardial Infarction. Journal of the [place] [employer] 2012;60:1581-98 Specimen Anatomical Collection Method Collection Time Receive d Time (Source) Location / / Volume Laterality Blood 01/22/2022 2:00 AM 2 2:16 EST AM EST Resulting Agency Comment Spec In Lab Danny Jewell MD CHEMISTRY ORDERABLES Performing Organization Address City/[facility]/[place] [address] (ABNORMAL) POCT Glucose (01/22/2022 1:20 AM EST) P athologist Signature POC Glucose 239 (H) 65 - 199 [facility] mg/dL [facility] Comment: Supplemental ranges: <140 mg/dL before meals <180 mg/dL all other times of the day Specimen Anatomical Collection Method Collection Time Receive d Time (Source) Location / / Volume Laterality Blood 01/22/2022 1:20 AM 2 1:20 EST AM EST Danny Jewell MD POINT OF CARE TEST ORDERABLE S Performing Organization Address City/[facility]/[place] [address] (ABNORMAL) POCT Glucose (01/21/2022 11:54 PM EST) P athologist Signature POC Glucose 224 (H) 65 - 199 [facility] mg/dL [facility] Comment: Supplemental ranges: <140 mg/dL before meals <180 mg/dL all other times of the day Specimen Anatomical Collection Method Collection Time Receive d Time (Source) Location / / Volume Laterality Blood 01/21/2022 11:54 01/21/2022 PM EST 11:54 PM EST Danny Jewell MD POINT OF CARE TEST ORDERABLE S Performing Organization Address City/State/[place] [address] (ABNORMAL) Coox2 (01/21/2022 10:38 PM EST) Analysis Performed At Patho logist Time Signature pO2 Coox 32 mmHg [facility] Hgb Blood Gas 12.9 (L) 13.7 - [facility] 16.5 g/dL [facility] O2HB Coox 61.0 % [facility] COHB Coox 0.3 % [facility] Comment: Nonsmokers: 0.5-1.5% COHB Smokers: Variable, but usually less than 10% Toxic: 20-30% COHB Lethal: Greater than 60% COHB METHB Coox 0.7 <=1.5 % [facility] Source Coox Mixed Venous [facility] Specimen Anatomical Collection Method Collection Time Receive d Time (Source) Location / / Volume Laterality Blood 01/21/2022 10:38 01/21/2022 PM EST 10:38 PM EST Danny Jewell MD CHEMISTRY ORDERABLES Performing Organization Address City/[facility]/[place] [address] (ABNORMAL) POCT Glucose (01/21/2022 10:01 PM EST) P athologist Signature POC Glucose 205 (H) 65 - 199 [facility] mg/dL [facility] Comment: Supplemental ranges: <140 mg/dL before meals <180 mg/dL all other times of the day Specimen Anatomical Collection Method Collection Time Receive d Time (Source) Location / / Volume Laterality Blood 01/21/2022 10:01 01/21/2022 PM EST 10:01 PM EST Danny Jewell MD POINT OF CARE TEST ORDERABLE S Performing Organization Address City/State/[place] [address] (ABNORMAL) Potassium (01/21/2022 10:00 PM EST) P athologist Signature Potassium 5.1 (H) 3.5 - 5.0 [facility] mmol/L [facility] Comment: result rechecked-KT Please note: ??Patients [...] Organization Address City/State/[place] [address] (ABNORMAL) BLOOD GAS 2 ARTERIAL (01/21/2022 9:59 PM EST) Analysis Performed At Patho logist Time Signature pH Art 7.30 (L) 7.35 - [facility] 7.45 [facility] pCO2 Art 35 35 - 45 [facility] mmHg [facility] pO2 Art 83 (L) 85 - 104 [facility] LABORATORY HCO3 Art 17.1 (L) 20.0 - [facility] 26.0 [facility] mmol/[facility] BE Art -9.3 (L) -3.0 - 3.0 [facility] mmol/L [facility] Hgb Blood Gas 12.8 (L) 13.7 - [facility] 16.5 g/dL [facility] O2HB Art 93.7 (L) 94.0 - [facility] 97.0 % [facility] COHB Art 0.3 % [facility] Comment: Nonsmokers: 0.5-1.5% COHB Smokers: Variable, but usually less than 10% Toxic: 20-30% COHB Lethal: Greater than 60% COHB METHB Art 0.7 <=1.5 % [facility] Na Whole Blood 132 (L) 135 - 145 mmol/L [facility] K Whole Blood 4.9 3.5 - 5.0 mmol/L [facility] Comment: Please note: Patients with WBC >100,000 may have falsely elevated Potassium levels. Contact the Clinical Chemistry L aboratory if there are any questions. ICa Whole Blood 1.22 1.15 - 1.33 mmol/L [facility] Comment: Note: ??Total bilirubin higher than 20 m g/dL may lead to falsely low ionized calcium. CL Whole Blood 108 (H) 98 - 107 mmol/L [facility] Gluc Whole Bld 212 (H) 65 - 199 mg/dL [facility] Comment: Diabetes: >=200 mg/dL plus symp toms. Lactate WB 2.2 0.5 - 2.2 mmol/L [facility] FIO2 Art 50 % [facility] PF Ratio Art 166 [facility] Specimen Anatomical Collection Method Collection Time Receive d Time (Source) Location / / Volume Laterality Blood 01/21/2022 9:59 PM 9:59 EST PM EST Danny Jewell MD CHEMISTRY ORDERABLES Performing Organization Address City/State/ZIP Code Phon e Number [address] (ABNORMAL) POCT Glucose (01/21/2022 9:04 PM EST) athologist Signature POC Glucose 208 (H) 65 - 199 [facility] mg/dL [facility] Comment: Supplemental ranges: <140 mg/dL before meals <180 mg/dL all other times of the day Specimen Anatomical Collection Method Collection Time Receive d Time (Source) Location / / Volume Laterality Blood 01/21/2022 9:04 PM 9:04 EST PM EST Danny Jewell MD POINT OF CARE TEST ORDERABLE S Performing Organization Address City/State/[place] [address] POCT Glucose (01/21/2022 8:09 PM EST) athologist Signature POC Glucose 183 65 - 199 [facility] mg/dL [facility] Comment: Supplemental ranges: <140 mg/dL before meals <180 mg/dL all other times of the day Specimen Anatomical Collection Method Collection Time Receive d Time (Source) Location / / Volume Laterality Blood 01/21/2022 8:09 PM 2 8:09 EST PM EST Danny Jewell MD POINT OF CARE TEST ORDERABLE S Performing Organization Address City/State/[place] [address] POCT Glucose (01/21/2022 7:06 PM EST) athologist Signature POC Glucose 183 65 - 199 [facility] mg/dL [facility] Comment: Supplemental ranges: <140 mg/dL before meals <180 mg/dL all other times of the day Specimen Anatomical Collection Method Collection Time Receive d Time (Source) Location / / Volume Laterality Blood 01/21/2022 7:06 PM 2 7:06 EST PM EST Danny Jewell MD POINT OF CARE TEST ORDERABLE S Performing Organization Address City/State/[place] [address] POCT Glucose (01/21/2022 6:00 PM EST) athologist Signature POC Glucose 155 65 - 199 [facility] mg/dL [facility] Comment: Supplemental ranges: <140 mg/dL before meals <180 mg/dL all other times of the day Specimen Anatomical Collection Method Collection Time Receive d Time (Source) Location / / Volume Laterality Blood 01/21/2022 6:00 PM 2 6:00 EST PM EST Danny Jewell MD POINT OF CARE TEST ORDERABLE S Performing Organization Address City/State/[place] [address] POCT Glucose (01/21/2022 5:06 PM EST) athologist Signature POC Glucose 149 65 - 199 [facility] mg/dL [facility] Comment: Supplemental ranges: <140 mg/dL before meals <180 mg/dL all other times of the day Specimen Anatomical Collection Method Collection Time Receive d Time (Source) Location / / Volume Laterality Blood 01/21/2022 5:06 PM 5:06 EST PM EST Danny Jewell MD POINT OF CARE TEST ORDERABLE S Performing Organization Address City/State/[place] [address] (ABNORMAL) BLOOD GAS 2 ARTERIAL (01/21/2022 4:29 PM EST) Analysis Performed At Patho logist Time Signature pH Art 7.36 7.35 - [facility] 7.45 [facility] pCO2 Art 35 35 - 45 [facility] mmHg [facility] pO2 Art 70 (L) 85 - 104 [facility] LABORATORY HCO3 Art 19.3 (L) 20.0 - [facility] 26.0 [facility] mmol/L [facility] BE Art -6.0 (L) -3.0 - 3.0 [facility] mmol/L [facility] Hgb Blood Gas 12.3 (L) 13.7 - [facility] 16.5 g/dL [facility] O2HB Art 91.2 (L) 94.0 - [facility] 97.0 % [facility] COHB Art 0.3 % [facility] Comment: Nonsmokers: 0.5-1.5% COHB Smokers: Variable, but usually less than 10% Toxic: 20-30% COHB Lethal: Greater than 60% COHB METHB Art 0.7 <=1.5 % [facility] Na Whole Blood 135 135 - 145 mmol/L [facility] K Whole Blood 4.7 3.5 - 5.0 mmol/L [facility] Comment: Please note: Patients with WBC >100,000 may have falsely elevated Potassium levels. Contact the Clinical Chemistry L aboratory if there are any questions. ICa Whole Blood 1.24 1.15 - 1.33 mmol/L [facility] Comment: Note: ??Total bilirubin higher than 20 m g/dL may lead to falsely low ionized calcium. CL Whole Blood 110 (H) 98 - 107 mmol/L [facility] Gluc Whole Bld 173 65 - 199 mg/dL [facility] Comment: Diabetes: >=200 mg/dL plus symp toms. Lactate WB 1.4 0.5 - 2.2 mmol/L [facility] FIO2 Art 40 % [facility] PF Ratio Art 175 [facility] Specimen Anatomical Collection Method Collection Time Receive d Time (Source) Location / / Volume Laterality Blood 01/21/2022 4:29 PM 4:29 EST PM EST Danny Jewell MD CHEMISTRY ORDERABLES Performing Organization Address City/[facility]/ZIP Code Phon e Number [address] (ABNORMAL) Coox2 (01/21/2022 4:07 PM EST) Analysis Performed At Patho logist Time Signature pO2 Coox 24 mmHg [facility] Hgb Blood Gas 11.9 (L) 13.7 - [facility] 16.5 g/dL [facility] O2HB Coox 43.9 % [facility] COHB Coox 0.7 % [facility] Comment: Nonsmokers: 0.5-1.5% COHB Smokers: Variable, but usually less than 10% Toxic: 20-30% COHB Lethal: Greater than 60% COHB METHB Coox 0.5 <=1.5 % [facility] Source Coox Mixed Venous [facility] Specimen Anatomical Collection Method Collection Time Receive d Time (Source) Location / / Volume Laterality Blood 01/21/2022 4:07 PM 4:07 EST PM EST Danny Jewell MD CHEMISTRY ORDERABLES Performing Organization Address City/[facility]/ZIP Code Phon e Number [address] POCT Glucose (01/21/2022 4:02 PM EST) P athologist Signature POC Glucose 190 65 - 199 G[facility]EL[facility] GRANADO mg/dL [facility] Comment: Supplemental ranges: <140 mg/dL before meals <180 mg/dL all other times of the day Specimen Anatomical Collection Method Collection Time Receive d Time (Source) Location / / Volume Laterality Blood 01/21/2022 4:02 PM 2 4:02 EST PM EST Danny Jewell MD POINT OF CARE TEST ORDERABLE S Performing Organization Address City/[facility]/[place] [facility] [place] [address] (ABNORMAL) Hemoglobin (01/21/2022 2:40 PM EST) athologist Signature Hemoglobin 11.9 (L) 13.7 - [facility] 16.5 g/dL [facility] Specimen Anatomical Collection Method Collection Time Receive d Time (Source) Location / / Volume Laterality Blood 01/21/2022 2:40 PM 2 2:55 EST PM EST Resulting Agency Comment Spec In Lab Danny Jewell MD HEMATOLOGY ORDERABLES Performing Organization Address City/[facility] [place] [place] [address] Potassium (01/21/2022 2:40 PM EST) athologist [facility] Potassium 4.0 3.5 - 5.0 [facility] LOY mmol/L [facility] Comment: Please note: ??Patients with [...] Jewell MD CHEMISTRY ORDERABLES Performing Organization Address City/[facility]/[place] [facility] [place] [address] (ABNORMAL) BLOOD GAS 2 ARTERIAL (01/21/2022 2:25 PM EST) athologist Signature pH Art 7.28 7.35 - [facility] (Critical) 7.45 [facility] Comment: Noted by inspector optical instrument. pCO2 Art 41 35 - 45 mmHg [facility]ORY pO2 Art 218 (H) 85 - 104 mmHg [facility] LABORATORY HCO3 Art 18.6 (L) 20.0 - 26.0 mmol/L [facility] BE Art -8.2 (L) -3.0 - 3.0 mmol/L [facility] Hgb Blood Gas 11.9 (L) 13.7 - 16.5 g/dL [facility] [facility] O2HB Art 97.6 (H) 94.0 - 97.0 % [facility] COHB Art 0.3 % [facility] Comment: Nonsmokers: 0.5-1.5% COHB Smokers: Variable, but usually less than 10% Toxic: 20-30% COHB Lethal: Greater than 60% COHB METHB Art 0.7 <=1.5 % [facility] Na Whole Blood 135 135 - 145 mmol/L [facility] K Whole Blood 3.2 (L) 3.5 - 5.0 mmol/L [facility] Comment: Please note: Patients with WBC >100,000 may have falsely elevated Potassium levels. Contact the Clinical Chemistry L aboratory if there are any questions. ICa Whole Blood 1.26 1.15 - 1.33 mmol/L [facility] Comment: Note: ??Total bilirubin higher than 20 m g/dL may lead to falsely low ionized calcium. CL Whole Blood 113 (H) 98 - 107 mmol/L [facility] Gluc Whole Bld 140 65 - 199 mg/dL [facility] Comment: Diabetes: >=200 mg/dL plus symp toms. Lactate WB 1.3 0.5 - 2.2 mmol/L [facility] FIO2 Art 100 % [facility] PF Ratio Art 218 [facility] Specimen Anatomical Collection Method Collection Time Receive d Time (Source) Location / / Volume Laterality Blood 01/21/2022 2:25 PM 2 2:25 EST PM EST Danny Jewell MD CHEMISTRY ORDERABLES Performing Organization Address City/[facility]/[place] [address] (ABNORMAL) Tryptase (01/21/2022 1:47 PM EST) P athologist Signature Tryptase 12.5 (H) <=8.4 ng/mL [facility] Comment: Total tryptase concentrations that are p ersistently greater than 20 ng/mL may be consistent with systemic mastocytosis . Specimen Anatomical Collection Method Collection Time Receive d Time (Source) Location / / Volume Laterality Blood 01/21/2022 1:47 PM 2 7:40 EST AM EST Resulting Agency Comment Spec In Lab Danny Jewell MD CHEMISTRY ORDERABLES Performing Organization Address City/[facility]/[place] [address] (ABNORMAL) BLOOD GAS 2 ARTERIAL (01/21/2022 1:35 PM EST) Analysis Performed At Patho logist Time Signature pH Art 7.31 (L) 7.35 - [facility] 7.45 [facility] pCO2 Art 44 35 - 45 [facility] mmHg [facility] pO2 Art 65 (L) 85 - 104 [facility] mmHg [facility] HCO3 Art 21.9 20.0 - [facility] 26.0 [facility] mmol/L [facility] BE Art -4.4 (L) -3.0 - 3.0 [facility] mmol/L [facility] Hgb Blood Gas 10.9 (L) 13.7 - [facility] 16.5 g/dL [facility] O2HB Art 88.4 (L) 94.0 - [facility] 97.0 % [facility] COHB Art 0.3 % [facility] Comment: Nonsmokers: 0.5-1.5% COHB Smokers: Variable, but usually less than 10% Toxic: 20-30% COHB Lethal: Greater than 60% COHB METHB Art 0.7 <=1.5 % [facility] Na Whole Blood 136 135 - 145 mmol/L [facility] K Whole Blood 4.5 3.5 - 5.0 mmol/L [facility] Comment: Please note: Patients with WBC >100,000 may have falsely elevated Potassium levels. Contact the Clinical Chemistry L aboratory if there are any questions. ICa Whole Blood 1.18 1.15 - 1.33 mmol/L [facility] Comment: Note: ??Total bilirubin higher than 20 m g/dL may lead to falsely low ionized calcium. CL Whole Blood 110 (H) 98 - 107 mmol/L [facility] Gluc Whole Bld 150 65 - 199 mg/dL [facility] Comment: Diabetes: >=200 mg/dL plus symp toms. Lactate WB 1.1 0.5 - 2.2 mmol/L [facility] FIO2 Art 100 % [facility] PF Ratio Art 65 [facility] Specimen Anatomical Collection Method Collection Time Receive d Time (Source) Location / / Volume Laterality Blood 01/21/2022 1:35 PM 2 1:35 EST PM EST Danny Jewell MD CHEMISTRY ORDERABLES Performing Organization Address City/State/[place] [address] XR Chest One View [...] who have questions please contact the health home care coordinator that requested your imaging first. ? Narrative [...] ho have questions please contact the health home care coordinator that requested your imaging first. Danny Jewell MD IMG DX ORDERABLES (ABNORMAL) BLOOD GAS 2 ARTERIAL (01/21/2022 12:47 PM EST) Analysis Performed At Path logist Time Signature pH Art 7.37 7.35 - [facility] 7.45 [facility] pCO2 Art 42 35 - 45 [facility] pO2 Art 193 (H) 85 - 104 [facility] HCO3 Art 23.5 20.0 - [facility] 26.0 [facility] mmol/L [facility] BE Art -1.8 -3.0 - 3.0 [facility] mmol/L [facility] Hgb Blood Gas 11.8 (L) 13.7 - [facility] 16.5 g/dL [facility] O2HB Art 97.4 (H) 94.0 - [facility] 97.0 % [facility] COHB Art 0.3 % [facility] Comment: Nonsmokers: 0.5-1.5% COHB Smokers: Variable, but usually less than 10% Toxic: 20-30% COHB Lethal: Greater than 60% COHB METHB Art 0.8 <=1.5 % [facility] Na Whole Blood 135 135 - 145 mmol/L [facility] K Whole Blood 4.2 3.5 - 5.0 mmol/L [facility] Comment: Please note: Patients with WBC >100,000 may have falsely elevated Potassium levels. Contact the Clinical Chemistry L aboratory if there are any questions. ICa Whole Blood 1.12 (L) 1.15 - 1.33 mmol/L [facility] Comment: Note: ??Total bilirubin higher than 20 m g/dL may lead to falsely low ionized calcium. CL Whole Blood 109 (H) 98 - 107 mmol/L [facility] Gluc Whole Bld 150 65 - 199 mg/dL [facility] Comment: Diabetes: >=200 mg/dL plus symp toms. Lactate WB 1.1 0.5 - 2.2 mmol/L [facility] FIO2 Art 100 % [facility] PF Ratio Art 193 [facility] Specimen Anatomical Collection Method Collection Time Receive d Time (Source) Location / / Volume Laterality Blood 01/21/2022 12:47 01/21/2022 PM EST 12:47 PM EST Danny Jewell MD CHEMISTRY ORDERABLES Performing Organization Address City/[facility]/ZIP Code Phon e Number [address] (ABNORMAL) Coox2 (01/21/2022 12:42 PM EST) Analysis Performed At Patho logist Time Signature pO2 Coox 29 mmHg [facility] Hgb Blood Gas 12.0 (L) 13.7 - [facility] 16.5 g/dL [facility] O2HB Coox 53.7 % [facility] COHB Coox 0.6 % [facility] Comment: Nonsmokers: 0.5-1.5% COHB Smokers: Variable, but usually less than 10% Toxic: 20-30% COHB Lethal: Greater than 60% COHB METHB Coox 0.8 <=1.5 % [facility] Source Coox Mixed Venous [facility] Specimen Anatomical Collection Method Collection Time Receive d Time (Source) Location / / Volume Laterality Blood 01/21/2022 12:42 01/21/2022 PM EST 12:42 PM EST Danny Jewell MD CHEMISTRY ORDERABLES Performing Organization Address City/[facility]/ZIP Code Phon e Number [address] EKG 12 Lead (01/21/2022 12:37 PM EST) Component Value Ref Range Test Analysis Performed Pathologis t Method Time At Signature Ventricular rate 67 BPM MUSE SYSTEM Atrial Rate 67 BPM MUSE SYSTEM P-R Interval 176 ms MUSE SYSTEM QRS Duration 82 ms MUSE SYSTEM Q-T Interval 440 ms MUSE SYSTEM QTC Calculated 464 ms MUSE SYSTEM (Bezet) Calculated P [place] 50 degrees MUSE SYSTEM Calculated R [place] -15 degrees MUSE SYSTEM Calculated T [place] 23 degrees MUSE SYSTEM INTERPRETATION Normal sinus rhythm MUSE SYSTEM possible ??Inferior infarct (cited on or before 25-SEP-2016 ??08:11 Abnormal ECG When compared with ECG of 01-JAN-2022 16:38, No significant change was found I personally reviewed the tracing and edited the fellows int erpretation Confirmed by fellow Brett Tenorio ([id number]) on 01/21/2022 6:4 4:33 PM Confirmed by Ita Peck ([id number]) on 01/21/2022 7:40:27 PM Specimen Anatomical Collection Method Collection Time Receive d Time (Source) Location / / Volume Laterality 01/21/2022 12:37 01/21/2022 7:40 PM EST PM EST Danny Jewell MD ECG ORDERABLES Performing Organization Address City/State/ZIP Code Phon e Number MUSE SYSTEM (ABNORMAL) BLOOD GAS 2 ARTERIAL (01/21/2022 11:37 AM EST) P athologist Signature pH Art 7.39 7.35 - [facility] 7.45 [facility] pCO2 Art 43 35 - 45 [facility]ORY pO2 Art 86 85 - 104 [facility]ORY HCO3 Art 25.0 20.0 - [facility] 26.0 [facility] mmol/L [facility] BE Art 0.0 -3.0 - 3.0 [facility] mmol/L [facility] Hgb Blood Gas 8.5 (L) 13.7 - [facility] 16.5 g/dL [facility] O2HB Art 95.1 94.0 - [facility] 97.0 % [facility] COHB Art 0.1 % [facility] Comment: Nonsmokers: 0.5-1.5% COHB Smokers: Variable, but usually less than 10% Toxic: 20-30% COHB Lethal: Greater than 60% COHB METHB Art 0.3 <=1.5 % [facility] Na Whole Blood 134 (L) 135 - 145 mmol/L [facility] K Whole Blood 5.6 (H) 3.5 - 5.0 mmol/L [facility] Comment: Please note: Patients with WBC >100,000 may have falsely elevated Potassium levels. Contact the Clinical Chemistry L aboratory if there are any questions. ICa Whole Blood 1.15 1.15 - 1.33 mmol/L [facility] Comment: Note: ??Total bilirubin higher than 20 m g/dL may lead to falsely low ionized calcium. CL Whole Blood 106 98 - 107 mmol/L [facility] Gluc Whole Bld 181 65 - 199 mg/dL [facility] Comment: Diabetes: >=200 mg/dL plus symp toms. Lactate WB 1.6 0.5 - 2.2 mmol/L [facility] Specimen Anatomical Collection Method Collection Time Receive d Time (Source) Location / / Volume Laterality Blood 01/21/2022 11:37 01/21/2022 AM EST 11:37 AM EST Danny Jewell MD CHEMISTRY ORDERABLES Performing Organization Address City/[facility]/ZIP Code Phon e Number [address] APTT (01/21/2022 11:30 AM EST) P athologist Signature PTT 31 25 - 37 sec [facility] Comment: OR Result called by ?? [...] Vasquez MD HEMATOLOGY ORDERABLES Performing Organization Address City/[facility]/ZIP Code Phon e Number [address] (ABNORMAL) Prothrombin Time (01/21/2022 11:30 AM EST) P athologist Signature PT 16.0 (H) 9.4 - 12.5 [facility] Comment: OR Result called by ?? SALVLT OR Result s read back by: ? Tete Sanchez at 2022-01-21 12:02:10 INR 1.4 [facility] Comment: OR Result called by ?? [...] Organization Address City/State/ZIP Code Phon e Number [facility] [place] [address] (ABNORMAL) Hemogram (01/21/2022 11:30 AM EST) athologist Signature WBC 4.6 4.0 - 9.5 G[facility]ELLE GRANADO x10(3)/[facility] LABORATORY RBC 2.57 (L) 4.58 - GABRIELLE LOY 5.54 [facility] x10(6)/[facility] LABORATORY Hemoglobin 8.1 (L) 13.7 - GABRIELLE FERNÁNDEZLOY 16.5 g/dL [facility] Hematocrit 23.1 (L) 40.5 - [facility] 48.5 % [facility] Comment: This result has been called to JOSE MANUEL KEY by Jim Montesinos on 01 21 2022 at 1147, and has been read back. MCV 89.9 82.9 - 93.1 fL [facility] MCH 31.5 27.5 - 32.1 pg [facility] MCHC 35.1 32.0 - 35.7 g/dL [facility] Platelets 105 (L) 145 - 357 x10(3)/[facility] LABORATORY RDWSD 42.2 36.0 - 45.0 fL [facility] RDWCV 13.0 11.4 - 13.8 % [facility] MPV 9.6 7.6 - 12.9 fL [facility] nRBC % Auto 0.0 % [facility] nRBC Abs Auto 0.000 0.000 - 0.000 x10(3)/[facility] LABORATORY Specimen Anatomical Collection Method Collection Time Receive d Time (Source) Location / / Volume Laterality Blood 01/21/2022 11:30 01/21/2022 AM EST 11:42 AM EST Resulting Agency Comment Spec In Lab Donnie Vasquez MD HEMATOLOGY ORDERABLES Performing Organization Address City/State/[place] [address] Platelet count (01/21/2022 10:50 AM EST) P athologist Signature Platelets 148 145 - 357 [facility] x10(3)/[facility] LABORATORY Plat Immature 2.4 0.0 - 7.4 [facility] % [facility] Comment: Limitation of the Immature Platelet Frac tion (IPF)-May be less reliable when the platelet count is less than 36f261/u L due to statistical imprecision. The IPF [...] in a decreased state of production. References: [employer] The Clinical Value of the Immature Platelet Fraction (IPF) in Cell Recovery Document Number [id number] 04/2011 [employer] The Role of the Imm ature Platelet Fraction (IPF) in the Differential Diagnosis of Thrombocytopen ia, Document [id number] V05 Specimen Anatomical Collection Method Collection Time Receive d Time (Source) Location / / Volume Laterality Blood 01/21/2022 10:50 01/21/2022 AM EST 10:59 AM EST Resulting Agency Comment Spec In Lab Danny Jewell MD HEMATOLOGY ORDERABLES Performing Organization Address City/[facility] [place] [place] [address] (ABNORMAL) Hemoglobin and Hematocrit, blood (01/21/2022 10:50 AM EST) P athologist Signature Hemoglobin 8.0 (L) 13.7 - 16.5 [facility] g/dL [facility] Comment: This result has been called to ANASTASIA ARCINIEGA by Jim Montesinos on 01 21 2022 at 1105, and has been read back. Hematocrit 22.3 (L) 40.5 - 48.5 % [facility] Comment: This result has been called to ANASTASIA ARCINIEGA by Jim Montesinos on 01 21 2022 at 1105, and has been read back. Specimen Anatomical Collection Method Collection Time Receive d Time (Source) Location / / Volume Laterality Blood 01/21/2022 10:50 01/21/2022 AM EST 10:59 AM EST Resulting Agency Comment Spec In Lab Danny Jewell MD HEMATOLOGY ORDERABLES Performing Organization Address City/[facility] [place] [address] Fibrinogen (01/21/2022 10:50 AM EST) P athologist Signature Fibrinogen 209 200 - 393 [facility] mg/dL [facility] Comment: OR Result called by [...] Organization Address City/State/[place] [address] (ABNORMAL) BLOOD GAS 2 ARTERIAL (01/21/2022 10:45 AM EST) Analysis Performed At Patho logist Time Signature pH Art 7.38 7.35 - [facility] 7.45 [facility] pCO2 Art 47 (H) 35 - 45 [facility] mmHg [facility] pO2 Art 468 (H) 85 - 104 [facility] LABORATORY HCO3 Art 27.4 (H) 20.0 - [facility] 26.0 [facility] mmol/L [facility] BE Art 2.3 -3.0 - 3.0 [facility] mmol/L [facility] Hgb Blood Gas 8.5 (L) 13.7 - [facility] 16.5 g/dL [facility] O2HB Art 99.0 (H) 94.0 - [facility] 97.0 % [facility] COHB Art 0.1 % [facility] Comment: Nonsmokers: 0.5-1.5% COHB Smokers: Variable, but usually less than 10% Toxic: 20-30% COHB Lethal: Greater than 60% COHB METHB Art 0.3 <=1.5 % [facility] Na Whole Blood 132 (L) 135 - 145 mmol/L [facility] K Whole Blood 6.1 (Critical) 3.5 - 5.0 mmol/L [facility] Comment: Critical notified to Donnie Vasquez MD inspector optical instrument immediately following run time. Please note: Patients with WBC >100,000 may have falsely elevated Potassium levels. Contact the Clinical Chemistry L aboratory if there are any questions. ICa Whole Blood 0.96 (L) 1.15 - 1.33 mmol/L [facility] Comment: Note: ??Total bilirubin higher than 20 m g/dL may lead to falsely low ionized calcium. CL Whole Blood 101 98 - 107 mmol/L [facility] Gluc Whole Bld 217 (H) 65 - 199 mg/dL [facility] Comment: Diabetes: >=200 mg/dL plus symp toms. Lactate WB 0.8 0.5 - 2.2 mmol/L [facility] Specimen Anatomical Collection Method Collection Time Receive d Time (Source) Location / / Volume Laterality Blood 01/21/2022 10:45 01/21/2022 AM EST 10:45 AM EST Danny Jewell MD CHEMISTRY ORDERABLES Performing Organization Address City/State/[place] [address] (ABNORMAL) BLOOD GAS 2 ARTERIAL (01/21/2022 10:19 AM EST) Analysis Performed At Patho logist Time Signature pH Art 7.32 (L) 7.35 - [facility] 7.45 [facility] pCO2 Art 48 (H) 35 - 45 [facility] mmHg [facility] pO2 Art 469 (H) 85 - 104 [facility] mmHg [facility] HCO3 Art 24.4 20.0 - [facility] 26.0 [facility] mmol/L [facility] BE Art -1.7 -3.0 - 3.0 [facility] mmol/L [facility] Hgb Blood Gas 8.6 (L) 13.7 - [facility] 16.5 g/dL [facility] O2HB Art 99.3 (H) 94.0 - [facility] 97.0 % [facility] COHB Art 0.2 % [facility] Comment: Nonsmokers: 0.5-1.5% COHB Smokers: Variable, but usually less than 10% Toxic: 20-30% COHB Lethal: Greater than 60% COHB METHB Art 0.3 <=1.5 % [facility] Na Whole Blood 127 (L) 135 - 145 mmol/L [facility] K Whole Blood 6.4 (Critical) 3.5 - 5.0 mmol/L [facility] Comment: Critical notified to Donnie Vasquez MD inspector optical instrument immediately following run time. Please note: Patients with WBC >100,000 may have falsely elevated Potassium levels. Contact the Clinical Chemistry L aboratory if there are any questions. ICa Whole Blood 1.00 (L) 1.15 - 1.33 mmol/L [facility] Comment: Note: ??Total bilirubin higher than 20 m g/dL may lead to falsely low ionized calcium. CL Whole Blood 101 98 - 107 mmol/L [facility] Gluc Whole Bld 215 (H) 65 - 199 mg/dL [facility] Comment: Diabetes: >=200 mg/dL plus symp toms. Lactate WB 0.9 0.5 - 2.2 mmol/L [facility] Specimen Anatomical Collection Method Collection Time Receive d Time (Source) Location / / Volume Laterality Blood 01/21/2022 10:19 01/21/2022 AM EST 10:19 AM EST Danny Jewell MD CHEMISTRY ORDERABLES Performing Organization Address City/State/[place] [address] (ABNORMAL) BLOOD GAS 2 VENOUS (01/21/2022 9:52 AM EST) P athologist Signature pH Ryan 7.33 7.32 - [facility] 7.42 [facility] pCO2 Ryan 48 41 - 51 [facility] LABORATORY pO2 Ryan 43 (H) 25 - 40 [facility] LABORATORY HCO3 Ryan 24.6 mmol/L [facility] BE Ryan -1.3 mmol/L [facility] Hgb Blood Gas 7.4 (L) 13.7 - [facility] 16.5 g/dL [facility] O2HB Ryan 75.4 % [facility] COHB Ryan 0.9 % [facility] Comment: Nonsmokers: 0.5-1.5% COHB Smokers: Variable, but usually less than 10% Toxic: 20-30% COHB Lethal: Greater than 60% COHB METHB Ryan 0.0 <=1.5 % [facility] Na Whole Blood 128 (L) 135 - 145 mmol/L [facility] K Whole Blood 4.7 3.5 - 5.0 mmol/L [facility] Comment: Please note: Patients with WBC >100,000 may have falsely elevated Potassium levels. Contact the Clinical Chemistry L aboratory if there are any questions. ICa Whole Blood 0.89 (Critical) 1.15 - 1.33 mmol/L [facility] Comment: Critical notified to Donnie Vasquez MD b y inspector optical instrument immediately following run time. Note: ??Total bilirubin higher than 20 m g/dL may lead to falsely low ionized calcium. CL Whole Blood 104 98 - 107 mmol/L [facility] Gluc Whole Bld 152 65 - 199 mg/dL [facility] Comment: Diabetes: >=200 mg/dL plus symp toms Lactate WB 1.0 0.5 - 2.2 mmol/L [facility] BGas Source Venous [facility] Specimen Anatomical Collection Method Collection Time Receive d Time (Source) Location / / Volume Laterality Blood 01/21/2022 9:52 AM 9:52 EST AM EST Danny Jewell MD CHEMISTRY ORDERABLES Performing Organization Address City/State/[place] [address] (ABNORMAL) BLOOD GAS 2 ARTERIAL (01/21/2022 9:49 AM EST) Analysis Performed At Patho logist Time Signature pH Art 7.38 7.35 - [facility] 7.45 [facility] pCO2 Art 41 35 - 45 [facility] LABORATORY pO2 Art 486 (H) 85 - 104 [facility] LABORATORY HCO3 Art 23.8 20.0 - [facility] 26.0 [facility] mmol/[facility] LABORATORY BE Art -1.3 -3.0 - 3.0 [facility] mmol/L [facility] Hgb Blood Gas 7.8 (L) 13.7 - [facility] 16.5 g/dL [facility] O2HB Art 98.6 (H) 94.0 - [facility] 97.0 % [facility] COHB Art 0.3 % [facility] Comment: Nonsmokers: 0.5-1.5% COHB Smokers: Variable, but usually less than 10% Toxic: 20-30% COHB Lethal: Greater than 60% COHB METHB Art 0.3 <=1.5 % [facility] Na Whole Blood 129 (L) 135 - 145 mmol/L [facility] K Whole Blood 5.1 (H) 3.5 - 5.0 mmol/L [facility] Comment: Please note: Patients with WBC >100,000 may have falsely elevated Potassium levels. Contact the Clinical Chemistry L aboratory if there are any questions. ICa Whole Blood 0.97 (L) 1.15 - 1.33 mmol/L [facility] Comment: Note: ??Total bilirubin higher than 20 m g/dL may lead to falsely low ionized calcium. CL Whole Blood 102 98 - 107 mmol/L [facility] Gluc Whole Bld 159 65 - 199 mg/dL [facility] Comment: Diabetes: >=200 mg/dL plus symp toms. Lactate WB 1.0 0.5 - 2.2 mmol/L [facility] Specimen Anatomical Collection Method Collection Time Receive d Time (Source) Location / / Volume Laterality Blood 01/21/2022 9:49 AM 9:49 EST AM EST Danny Jewell MD CHEMISTRY ORDERABLES Performing Organization Address City/State/[place] [address] (ABNORMAL) BLOOD GAS 2 ARTERIAL (01/21/2022 8:20 AM EST) Analysis Performed At Patho logist Time Signature pH Art 7.42 7.35 - [facility] 7.45 [facility] pCO2 Art 41 35 - 45 [facility] pO2 Art 322 (H) 85 - 104 [facility] HCO3 Art 25.6 20.0 - [facility] 26.0 [facility] mmol/L [facility] BE Art 1.1 -3.0 - 3.0 [facility] mmol/L [facility] Hgb Blood Gas 11.0 (L) 13.7 - [facility] 16.5 g/dL [facility] O2HB Art 98.4 (H) 94.0 - [facility] 97.0 % [facility] COHB Art 0.3 % [facility] Comment: Nonsmokers: 0.5-1.5% COHB Smokers: Variable, but usually less than 10% Toxic: 20-30% COHB Lethal: Greater than 60% COHB METHB Art 0.3 <=1.5 % [facility] Na Whole Blood 139 135 - 145 mmol/L [facility] K Whole Blood 4.0 3.5 - 5.0 mmol/L [facility] Comment: Please note: Patients with WBC >100,000 may have falsely elevated Potassium levels. Contact the Clinical Chemistry L aboratory if there are any questions. ICa Whole Blood 1.13 (L) 1.15 - 1.33 mmol/L [facility] Comment: Note: ??Total bilirubin higher than 20 m g/dL may lead to falsely low ionized calcium. CL Whole Blood 105 98 - 107 mmol/L [facility] Gluc Whole Bld 129 65 - 199 mg/dL [facility] Comment: Diabetes: >=200 mg/dL plus symp toms. Lactate WB 1.1 0.5 - 2.2 mmol/L [facility] Specimen Anatomical Collection Method Collection Time Receive d Time (Source) Location / / Volume Laterality Blood 01/21/2022 8:20 AM 8:20 EST AM EST Danny Jewell MD CHEMISTRY ORDERABLES Performing Organization Address City/State/[place] [address] COVID-19 PCR (01/21/2022 7:35 AM EST) [facility] Method Time Signature SARS-CoV-2 Not Detected Not Detected GABRIELLE RNA PCR [facility] Comment: This result should be [...] using the Simplexa COVID-19 Direct Assay by Mapp as authorized by the FDA issued Emergency Use Authorization (EUA). This assay is intended for In-vitro Diagnostic (IVD) use with nasopharyngeal swabs collected from individuals meeting the [facility] criteria for testing. e assay is performed based on the instructions for use and additional guid ance provided by the FDA. Testing is performed in the Microbiology Laboratory within the Department of Pathology and Laboratory Medicine at [facility], certified under the Clinical Laboratory Improvement Amendmen [...] clinical management guidance information are available at th e CDC Coronavirus Disease 2019 (COVID-19) webpage under Information fo r Healthcare Professionals (https://www.cdc.gov/coronavirus/2019-nc ov/hcp/index.html). Additional information about this and ot her EUA tests can be found in provider and patient fact sheets at the following FDA website: https://www.fda.gov/medical-devices/beyvjboyadf-uoojeib-6252-yicpo-51-nzagecrqh- eio-vzvmuxhqibraef-chfasoa-devices/oncqd-omncflsphdo-hybn SARS-CoV-2 Source FACE [facility]ARDENER Swab [facility] Specimen (Source) Anatomical Collection Method Collection Time Re ceived Time Location / / Volume Laterality Nasopharyngeal Swab 01/21/2022 7:35 01/21 AM EST 9:15 AM EST Comment: Symptoms->Surveillance Resulting Agency Comment Spec In Lab Danny Jewell MD MICROBIOLOGY - GENERAL ORDER CATHY Performing Organization Address City/State/[place] [address] Transesophageal Echo/OR (01/21/2022 7:18 AM EST) Anatomical Region Laterality Modality Other Specimen (Source) Anatomical Collection Method Collection Time Re ceived Time Location / / Volume Laterality 01/21/2022 7:18 AM EST Narrative 01/21/2022 1:18 PM EST ? Version: 1 + + ? + + : ?: ? : ? : + + ? [facility] ?: ? : ? : ? : ? : ? : ? [address] ? : ? : ? + + ?[place] [address] ?Voice: ?Fax: Name: VINOD OCHOA ?Study Date: 01/21/2022, 7: 18 AM ?Patient Location: OR^OR16^A : 1955 (MM/DD/YYYY) ? Age: 66 Years Gender: Male Ordering Physician: [id number]^BEST^DANNY^N^^^^^EPIC^^^^PRO VID Referring Physician: [id number]^BEST^DANNY^N^^^^^EPIC^^^^PRO VID Reason For Study: Cardiac disease ? [...] + : : : : + + [facility] : : : : : : [address] : : + + [place] [address] Voice: Fax: Name: VINOD OCHOA Study Date: , 7: 18 AM Patient Location: OR^OR1 6^A : 1955 (MM/DD/YYYY) Age: 66 Years Gender: Male Ordering Physician: [id number]^BEST^DANNY^N^^^^^EPIC^^^^PRO VID Referring Physician: [id number]^BEST^DANNY^N^^^^^EPIC^^^^PRO VID Reason For Study: Cardiac disease Conclusions [...] 6:35 AM EST) athologist Signature Dispensed? Yes [facility] Specimen Anatomical Collection Method Collection Time Receive d Time (Source) Location / / Volume Laterality Blood 01/21/2022 6:35 AM 2 6:31 EST AM EST Danny Jewell MD BLOOD BANK ORDERABLES Performing Organization Address City/State/[place] [address] POCT Glucose (01/21/2022 6:26 AM EST) P athologist Signature POC Glucose 117 65 - 199 [facility] mg/dL [facility] Comment: Supplemental ranges: <140 mg/dL before meals <180 mg/dL all other times of the day Specimen Anatomical Collection Method Collection Time Receive d Time (Source) Location / / Volume Laterality Blood 01/21/2022 6:26 AM 2 6:26 EST AM EST Danny Jewell MD POINT OF CARE TEST ORDERABLE S Performing Organization Address City/State/[place] [address] documented in this encounter Visit Diagnoses Not on filedocumented in this encounter Admitting Diagnoses Diagnosis CAD (coronary artery disease) Coronary atherosclerosis of unspecified type of vessel, [place] or graft documented in this encounter Administered Medications Inactive Administered Medications - up to 3 most recent administrations Medication Order MAR Action Action Date Dose Rate Site acetaminophen (Tylenol) tablet Given 01/29/2022 9:28 PM EDT 1,00 0 mg 1,000 mg 1,000 mg, Oral, EVERY 8 HOURS SCHEDULED, First dose on Thu01/25/22 at 2000, Until Discontinued Given 01/29/2022 1:41 PM EDT 1,000 mg Given 01/29/2022 6:16 AM EDT 1,000 mg amLODIPine (Norvasc) tablet 10 mg Given 01/31/2022 8:26 AM EDT 10 mg 10 mg, Oral, DAILY, First dose (after last modification) on Thu01/27/22 at 0900, Until Discontinued, Routine Given 01/30/2022 8:52 AM EDT 10 mg Given 01/29/2022 8:12 AM EDT 10 mg aspirin chewable tablet 81 mg Given 01/31/2022 8:26 AM EDT 81 mg 81 mg, Oral, DAILY, First dose on Thu01/21/22 at 1330, Until Discontinued, Start on Post-Op Day 0, please give within 6 hours upon arrival to Unit. If unable to take PO, may give HI, Routine Given 01/30/2022 8:51 AM EDT 81 mg Given 01/29/2022 8:07 AM EDT 81 mg aspirin suppository 300 mg Given 01/23/2022 12:32 PM EST 300 mg 300 mg, Rectal, DAILY, First dose on Thu01/21/22 at 1330, Until Discontinued, Start on Post-Op Day 0, please give within 6 hours upon arrival to Unit. Give HI if unable to take PO, Routine Given [...] calcium chloride 10% (100 mg/mL) injecti on Given 01/21/2022 10:58 AM EST 1 g ONCE PRN, Starting on Thu01/21/22 at 1058, Until Thu01/21/22 at 1306, Intra-Operative (Intra-Procedure), Routine cardioplegic solution (Plegisol) New Bag 01/21/2022 10:55 AM EST 2 68 mLs induction solution CONTINUOUS PRN, Starting on Thu01/21/22 at 1055, Until Thu01/21/22 at 1235, Intra-Operative (Intra-Procedure) cardioplegic solution no.20 (Maintenance New Bag 022 10:55 AM EST 325 mLs 4:1) solution CONTINUOUS PRN, Starting on Thu01/21/22 at 1055, Until Thu01/21/22 at 1235, Intra-Operative (Intra-Procedure) cloNIDine (Catapres) tablet 0.2 mg Given 01/31/2022 8:26 AM EDT 0.2 mg 0.2 mg, Oral, 2 TIMES DAILY, First dose (after last modification) on Myrna 01/30/22 at 0900, Until Discontinued, Routine Given 01/30/2022 8:41 PM EDT 0.2 mg Given 01/30/2022 8:51 AM EDT 0.2 mg dextrose 10% infusion 250 mL, at 1,000 [...] for the duration of the active insulin. electrolyte replacement solution (pH 7.4) New Bag 01/21/2022 7:25 AM EST 2 L (Normosol-R, Plasmalyte-A) infusion CONTINUOUS PRN, Starting on Thu01/21/22 at 0725, Until Thu01/21/22 at 1235, Intra-Operative (Intra-Procedure) furosemide (Lasix) tablet 20 mg Given 01/31/2022 [...] tube = 37.5 grams., Routine heparin (porcine) (1,000 units/mL) Given 01/21/2022 10:53 AM EST 5,000 Units injection ONCE PRN, Starting on Thu01/21/22 at 0900, Until Thu01/21/22 at 1306, Intra-Operative (Intra-Procedure), Routine Given 01/21/2022 10:25 AM EST 5,000 Units Given 01/21/2022 9:46 AM EST 5,000 Units insulin lispro (HumaLOG;Admelog) (100 Given 01/31/2022 11:52 AM EDT 1 Units unit/mL) subcutaneous injection vial 1-6 Units 1-6 Units, Subcutaneous, 3 TIMES DAILY BEFORE MEALS, First dose on Thu01/26/22 at 1130, Until Discontinued, CORRECTION BOLUS [1-6 [...] Given 01/30/2022 4:41 PM EDT 1 Units lidocaine (pf) (Xylocaine) (20 mg/mL) 2% Given 01/21/2022 10:59 AM EST 200 mg injection syringe ONCE PRN, Starting on Thu01/21/22 at 1059, Until Thu01/21/22 at 1306, Intra-Operative (Intra-Procedure), Routine magnesium hydroxide (Milk of Magnesia) (240 Given 01/29/2022 8:12 AM EDT 10 mLs mg/mL) oral liquid 10 mL 10 mL, Oral, DAILY, First dose on Myrna 01/23/22 at 0900, Until Discontinued, Post-op day 2. Do not use with renal insufficiency., Routine Given 01/28/2022 8:08 AM EDT 10 mLs Given 01/27/2022 8:28 AM EDT 10 mLs magnesium sulfate (4 mEq/mL) (50 %) inje ction Given 01/21/2022 10:59 AM EST 2 g ONCE PRN, Starting on Thu01/21/22 at 1059, Until Thu01/21/22 at 1306, Intra-Operative (Intra-Procedure), Routine mannitoL (50 grams and over) 100 g/500 mL New Bag 01/21/2022 9:47 AM EST 50 g (20%) infusion CONTINUOUS PRN, Starting on Thu01/21/22 at 0947, Until Thu01/21/22 at 1235, Intra-Operative (Intra-Procedure) melatonin tablet 6 mg Given 01/30/2022 8:41 [...] Given 01/30/2022 8:57 AM EDT 1,000 mg metoprolol tartrate (Lopressor) tablet 1 00 mg Given 01/31/2022 8:26 AM EDT 100 mg 100 mg, Oral, EVERY 12 HOURS SCHEDULED (2 times per day), First dose (after last modification) on Thu01/28/22 at 0900, Until Discontinued, Hold for HR<60. Hold for SBP<90, Routine Given 01/30/2022 8:41 PM EDT 100 mg Given 01/30/2022 8:51 AM EDT 100 mg pantoprazole EC (Protonix) tablet 40 mg [...] Given 01/27/2022 8:28 AM EDT 17 g senna-docusate (Pericolace) 8.6-50 mg per Given 2021 8:11 PM EDT 2 tablets tablet 2 tablet 2 tablet, Oral, DAILY, First dose on Thu01/22/22 at 2100, Until Discontinued, Post-op day 1, Routine Given 01/28/2022 9:19 PM EDT 2 tablets Given 01/27/2022 8:01 PM EDT 2 tablets sodium bicarbonate 8.4 % (1 meq/ml) IV Given 01/21/2022 10:42 AM EST 50 mEq solution ONCE PRN, Starting on Thu01/21/22 at 1032, Until Thu01/21/22 at 1306, Intra-Operative (Intra-Procedure), Routine Given 01/21/2022 10:32 AM EST 50 mEq sodium chloride 0.9 % (flush) (BD PosiFlush Given 01/31/2022 7:4 4 AM EDT 5 mLs Normal Saline 0.9) flush 5 mL 5 mL, Intravenous, EVERY 8 HOURS, First dose on Thu01/27/22 at 1515, Until Discontinued, Routine Given 01/30/2022 3:15 PM EDT 5 mLs Given 01/29/2022 8:12 PM EDT 5 mLs vancomycin (Vancocin) injection Given 01/21/2022 8:52 AM EST 1 g 19- S urgical Site ONCE PRN, Starting on Thu01/21/22 at 0852, Until Thu01/21/22 at 1306, Intra-Operative (Intra-Procedure), Routine verapamiL (Isoptin) (2.5 mg/mL) Given 01/21/2022 8:52 AM EST 5 m g 19- Surgical Site injection ONCE PRN, Starting on Thu01/21/22 at 0852, Until Thu01/21/22 at 1306, Administer over 2 Minutes, Intra-Operative (Intra-Procedure) documented in this encounter Active and Recently Administered Medications Times are shown in EDT. Scheduled Medication Order 01/29/2022 01/30/2022 01/31/2022 acetaminophen (Tylenol) tablet 1,000 mg 0616 (Given - Provider: Vivian Tyson RN)1341 (Given - Provider: Dereje Chong RN)2128 (Given - Provider: Amberly Toth RN) 0600 (Not Given - Provider: Elizabeth ayoub [...] Yan RN) 0826 (Given - Provider: Berenice Salazar, ESTEFANIA) 10 mg, Oral, DAILY, First dose (after la st modification) on Thu01/27/22 at 0900, Until Discontinued, Routine aspirin chewable tablet 81 mg(Linked Group 1) 0807 (Gi ryan - Provider: Dereje Chong RN) 0851 (Given - Provider: Pili Yan, ESTEFANIA) 0826 (Give n - Provider: Berenice Salazar RN) 81 mg, Oral, DAILY, First dose on 07/07 at 1330, Until Discontinued, Start on Post-Op Day 0, please give within 6 hours upon arrival to Unit. If unable to take PO, may give HI, Routine aspirin suppository 300 mg(Linked Group 1) 0807 (See A lternative - Provider: Dereje Chong RN) 0851 (See Alternative - Provider: Pili Yan RN) 0826 (See Alternative - Provider: Berenice Salazar, ESTEFANIA) 300 mg, Rectal, DAILY, First dose on Thu01/21/22 at 1330, Until Discontinued, Start on Post-Op Day 0, please give within 6 hours upon arrival to Unit. Give HI if unable to take PO, Routine atorvastatin (Lipitor) tablet 80 mg 1627 (Given - Prov ider: Yuko Schmidt RN) 1640 (Given - Provider: Pili L [place], RN) 80 mg, Oral, EVERY EVENING, First dose o n Thu01/21/22 at 1700, Until Discontinued, Routine cloNIDine (Catapres) tablet 0.1 mg (CANCELED) 806 (Gi ryan - Provider: Dereje Chong RN)2010 (Given - Provider: Elizabeth Leija, ESTEFANIA) 0.1 mg, Oral, 2 TIMES DAILY, First dose on Thu01/27/22 at 0900, Until Discontinued, Routine cloNIDine (Catapres) tablet 0.2 mg 0851 (Given - Provider: Pili Yan RN)2040 (Given - Provider: Elizabeth Leija, ESTEFANIA) 08 (Given - Provider: Berenice Salazar, ESTEFANIA) 0.2 mg, Oral, 2 TIMES DAILY, First dose (after last modification) on Thu01/30/22 at 0900, Until Discontinued, Routine furosemide (Lasix) tablet 20 mg 08 (Given - Provider: Dereje Chong RN) 08 (Given - Provider: Pili Yan RN) 08 (Given - Provider: Berenice Salazar, ESTEFANIA) 20 [...] (CANCELED) 806 (Given - Provider: Dereje Chong RN)142 (Given - Provider: Dereje Chong RN)2010 (Given - Provider: Elizabeth Leija RN) 50 mg, Oral, 3 TIMES DAILY, First [...] Yan RN) 0744 (Given - Provider: Berenice Salazar, ESTEFANIA) 1,000 mg, Oral, 2 TIMES DAILY WITH MEALS , First dose on Thu01/30/22 at 0915, Until Discontinued, Routine metoprolol tartrate (Lopressor) tablet 100 mg 08 (Gi ryan - Provider: Dereje Chong RN)2010 (Given - Provider: Elizabeth Leija RN) 0851 (Given - Provider: Pili Yan RN)2040 (Given - Provider: Elizabeth Leija RN) 0826 (Given - Provider: Berenice Salazar RN) 100 mg, Oral, EVERY 12 HOURS SCHEDULED ( 2 times per day), First dose (after last modification) on Thu01/28/22 at 0900, Until Discontinued, Hold for HR<60. Hold for SBP<90, Routine pantoprazole EC (Protonix) tablet 40 mg 08 (See Alte rnative - Provider: Dereje Chong RN)08 (Given - Provider: Dereje Chong RN) 0852 (Given - Provider: Pili Yan RN) 0826 (Given - Provider: Berenice Salazar RN) 40 mg, Oral, DAILY, First dose on 07/07 at 1330, Until Discontinued, DO NOT CRUSH OR OPEN If unable to take PO, may give IV, Routine polyethylene glycoL (Miralax) packet 17 g 0807 (Given - Provider: Dereje Chong RN) 0900 (Not Given - Provider: Pili zuluaga RN - Reason: Patient/family refused) 0900 (Not Given - Provider: Berenice long RN - Reason: Patient/family refused) 17 g, Oral, DAILY, First dose on 01/14 at 0900, Until Discontinued, Routine potassium chloride ER (K-Dur/Klor-Con) tablet 20 mEq ( COMPLETED) 0812 (Given - Provider: Dereje Chong, RN) 20 mEq, Oral, ONCE, 1 dose, On Thu at 0845, 20 mEq tablet may be dissolved in water for administration, Routine potassium chloride ER (K-Dur/Klor-Con) tablet 40 mEq (COMPLE KAPIL) 0851 (Given - Provider: Pili Yan, RN) 40 mEq, Oral, ONCE, 1 dose, On Thu01/30/22 at 0930, Routine potassium chloride ER (K-Dur/Klor-Con) tablet 40 mEq (COMPLE KAPIL) 0736 (Given - Provider: Pili Yan, RN) 40 mEq, Oral, ONCE, 1 dose, On Thu01/30/22 at 0730, Routine potassium chloride ER (K-Dur/Klor-Con) tablet 40 mEq (COMPLETED) 0744 (Given - Provider: Berenice Salazar, ESTEFANIA) 40 mEq, Oral, ONCE, 1 dose, On Thu01/31/22 at 0800, Routine senna-docusate (Pericolace) 8.6-50 mg per tablet 2 tab let 2010 (Given - Provider: Elizabeth Leija, ESTEFANIA) 2100 (Not Given - Provider: Elizabeth Leija RN - Reason: Patient/family refused) 2 tablet, Oral, DAILY, First dose on Thu01/22/22 at 2100, Until Discontinued, Post-op day 1, Routine sodium chloride 0.9 % (flush) (BD PosiFlush Normal Sung ine 0.9) flush 5 mL 0218 (Given - Provider: Vivian Tyson RN)0617 (Given - Provider: Vivian Tyson, RN)1430 (Given - Provider: Dereje Chong, RN)2011 (Given - Provider: Elizabeth Leija, ESTEFANIA) 0715 (Not Given - Provider: Elizabeth ayoub RN - Reason: Patient/family refused)1515 (Given - Provider: Pili Yan, ESTEFANIA)2315 (Not Given - Provider: Elizabeth Leija, ESTEFANIA - Reason: Patient/family refused) 0744 (Given - Provider: Berenice Salazar, ESTEFANIA)1515 (Due) 5 mL, Intravenous, EVERY 8 HOURS, [...] hydrALAZINE (Apresoline) (20 mg/mL) injection 10-20 mg (CANC ELED) 0018 (Given - Provider: Elizabeth Leija, RN) 10-20 mg, Intravenous, EVERY 4 HOURS PRN , Starting on Thu01/27/22 at 0637, Until Myrna 01/30/22 at 0802, [...] If unable to take PO, may give HI
Routine Or aspirin suppository 300 mgJump to med 300 mg, Rectal, DAILY, First dose on Thu01/21/22 at 1330, Until Discontinued
Start on Post-Op Day 0, please give within 6 hours upon arrival to Unit. Give HI if unable to take PO
Routine Group [...]
Routine documented in this encounter Care Teams Refueling Ramp Attendant Relationship Specialty Start Date End Date Vladimir Muñoz DO PCP - General Family Medicine 01/19/18 [address] [place] [address] documented as of this encounter
--- OUTSIDE RECORDS SUMMARY | 2022-08-05 09:05 | XMS_ITS | Encounter Summary ---
:1955 Author Organization [place] [address] Care Team Providers Name Role Phone Vladimir Muñoz DO Primary Care Provider Encounter Details Date Type Department Care Team Description 01/17/2022 Travel Social History Tobacco Use Types Packs/Day Years [...] 03/25/2022 Anesthesia Event Surgery Catrachita Baez MD [facility] MEDICAL [facility] ER ANESTHESIOLOGY [place], [place] [address] (Wo rk) 12/15/2022 Office Visit Cardiology Damián Hart MD [facility] Medical [facility] er [address] [place] 0[address] (Wo rk) 03/25/2050 Hospital Encounter Surgery Citlalli Richardson MD Vocal cord paralysis [facility] ER OTOLARYNGOLOGY [place], [place] [address] (Wo rk) documented as of this encounter Visit Diagnoses Not on filedocumented in this encounter Care Teams Craps Manager Relationship Specialty Start Date End Date Vladimir Muñoz DO PCP - General Family Medicine 01/19/18 [address] [place] [address] documented as of this encounter
--- OUTSIDE RECORDS SUMMARY | 2022-08-05 09:05 | XMS_ITS | Encounter Summary ---
:1955 Author Organization [facility] [place] [address] Care Team Providers Name Role Phone Vladimir Muñoz DO Primary Care Provider Encounter Details Date Type Department Care Team Description 01/17/2022 Hospital Encounter XRay at [facility] [place] Danny Antonio Coronary artery [address] [facility] [address] Bess MD disease involving [place], [place] [facility] [place] coronary [id number] pastor of nez perce [phone] CARDIOTHORACIC heart, unspec ified SURGERY whether [place]ina [place] present [address] Social History Tobacco Use Types Packs/Day Years [...] daily. Extended Rel 24 hr omeprazole (PriLOSEC) Take 40 mg by mouth 0 12/10 40 mg Capsule, Delayed daily. Release(E.C.) nitroGLYcerin Place 1 tablet under 25 tablet 12 02/13/2020 (Nitrostat) 0.4 mg the tongue every 5 Tablet, minutes x3 as needed SublingualIndications: for chest pain- ASCVD (arteriosclerotic cardiovascular disease) amoxicillin (AMOXIL) TAKE 4 CAPSULES BY 0 019 500 mg Capsule MOUTH 1 HOUR BEFORE APPOINTMENT aspirin 81 mg Tablet, Take 162 mg by mouth 0 Delayed Release (E.C.) daily. Increased by neurologist metFORMIN (GLUCOPHAGE) Take 1,000 mg by 0 1,000 mg Tablet mouth 2 times daily (with meals). cloNIDine (Catapres) Take 1 tablet by 120 tablet 3 2 04/29/2022 0.2 mg Tablet mouth 2 times daily. metoprolol tartrate Take 1 tablet by 180 tablet 3 01/31/2022 02/25/2022 (Lopressor) 100 mg mouth 2 times daily. Tablet chlorhexidine Apply topically daily 120 mL 0 01/17/2022 01/21/2022 (HIBICLENS) 4 % Liquid as needed. Shower from head to toe with Chlorhexidine the night before surgery . mupirocin (Bactroban) 2 Apply 1 each 22 g 0 01/17/2022 01/21/2022 % Ointment topically 2 times daily. Apply a small amount to each nostril twice daily. Begin 5 days prior to the day of surgery. amLODIPine (Norvasc) 10 take 1 tablet by 90 tablet 3 202006/16/2022 mg TabletIndications: mouth daily Essential hypertension atorvastatin (Lipitor) take 1 tablet by 90 tablet 3 021 06/30/2022 80 mg mouth once daily TabletIndications: ASCVD (arteriosclerotic cardiovascular disease) carvediloL (Coreg) 25 Take 1 tablet by 180 tablet 3 03/26/20 21 01/31/2022 mg TabletIndications: mouth 2 times daily Essential hypertension (with meals). documented as of this encounter Plan of Treatment Upcoming Encounters Date Type Specialty Care Team Description 03/25/2022 Anesthesia Event Surgery Catrachita Baez MD [facility] ANESTHESIOLOGY [place], [place] [address] (Wo rk) 12/15/2022 Office Visit Cardiology Damián Hart MD [facility] er [place], [place] [address] (Wo rk) 03/25/2050 Hospital Encounter Surgery Citlalli Richardson MD Vocal cord paralysis [facility] OTOLARYNGOLOGY [place], [place] [address] (Wo rk) documented as of this encounter Procedures Procedure Name Priority Date/Time Associated Diagnosis Comme nts XR CHEST PA AND Routine 01/17/2022 4:49 PM Coronary artery Res ults for this LATERAL EST disease involving procedure are in [place] coronary the results artery of nez [place] section. heart, unspecified whether angina present documented in this encounter Results XR Chest PA & Lateral (Generic) (01/17/2022 4:49 PM EST) Anatomical Region Laterality Modality Chest N/A Digital Radiography Specimen (Source) Anatomical Location Collection Method / Collectio n Time Received Time / Laterality Volume Impressions 01/17/2022 5:00 PM EST No active cardiopulmonary pathology identified. Thank you for letting us participate in the care of this patient. ??If you are a health care provider and have any questi ons regarding this report, please contact the number below. ??For patients who have questions please contact the health managed care manager that requested your imaging first. ? Narrative 01/17/2022 5:00 PM EST EXAMINATION: XR CHEST PA AND LATERAL (GENERIC) CLINICAL HISTORY: coronary artery diseas e TECHNIQUE: PA and lateral views of the c hest. COMPARISON: None. FINDINGS: The lungs appear clear. The ca rdiomediastinal silhouette, bronson, pulmonary vessels, and pleura are within normal limits. Coronary stents are present. No significant osseous findings are seen. Procedure Note Nara Costello MD - 01/17/2022Formatt ing of this note might be different from the original. EXAMINATION: XR CHEST PA AND LATERAL (GE NERIC) CLINICAL HISTORY: coronary artery diseas e TECHNIQUE: PA and lateral views of the c hest. COMPARISON: None. FINDINGS: The lungs appear clear. The ca rdiomediastinal silhouette, bronson, pulmonary vessels, and pleura are within normal limits. Coronary stents are present. No significant osseous findings are seen. IMPRESSION No active cardiopulmonary pathology iden tified. Thank you for letting us participate in the care of this patient. If you are a health care provider and have any questi ons regarding this report, please contact the number below. For patients w ho have questions please contact the health managed care manager that requested your imaging first. Electronically signed by: Nara Costello MD, [facility] ([phone]), at 01/17/2022 5:00 PM Danny Antonio MD IMG DX ORDERABLES documented in this encounter Visit Diagnoses Diagnosis Coronary artery disease involving nez perce coronary artery of nez perce heart, unspecified whether angina present Vocal cord paralysis Paralysis of vocal cords or larynx, unsp ecified documented in this encounter Care Teams Market Analysis Director Relationship Specialty Start Date End Date Vladimir Muñoz DO PCP - General Family Medicine 01/19/18 [address] [place] [address] documented as of this encounter
--- OUTSIDE RECORDS SUMMARY | 2022-08-05 09:05 | XMS_ITS | Encounter Summary ---
:1955 Author Organization [facility] [place] [address] Care Team Providers Name Role Phone ToniVladimir [...] Expiration Date Visits Requ ested Visits Authorized [id number] 1 1 Encounter Details Date Type Department Care Team Description 01/21/2022 Anesthesia Event Main Operating Room Donnie Jasso MD [facility] [place] [address] [place] [address] [phone] Anesthesia Record Procedure Summary Procedure Name Responsible Anesthesia Start Anesthesia Stop Time Anesthesiologist Time @CABG, USING Donnie Vasquez MD 01/21/22 0746 01/21/22 12 08 ARTERIAL GRAFT;SINGLE ARTERIAL GRAFT (WRVU 33.75) (N/A Chest) Events Date Time Event Comment 01/21/2022 0707 0746 AN Verify 0746 Start 0746 An Start Data 0752 An Induction 0754 An Intubation 0756 WILNER w/ REPORT 0808 Anesthesia Ready 0827 Sternotomy 0911 Heparin 0929 AN AORTIC CANNULA 0932 AN Venous Cannula 0936 CV Bypass init 1057 An Clamp Remove 1103 AN Defib 1115 CP Bypass Ended 1138 Chest Closed 1202 an stop data 1208 Recovery or ICU Handoff Patient care was transferred to the destination unit staff after review of the patient's medica l history, current anesthetic/surgi chao status and plan, according to the Provider Handoff Checklist. 1208 Stop Name Total Midazolam 5 mg fentaNYL 1,000 mcg Propofol 210 mg Propofol INF 158.88 mg PHENYLephrine 320 mcg PHENYLephrine INF 540 mcg Vecuronium 20 mg Heparin 30,000 Units Tranexamic Acid 1,030 mg Tranexamic Acid INF 387.79 mg Insulin Regular Human 10 Units Insulin Regular INF 14.92 Units cefTRIAXone 2 g NORepinephrine INF 193 mcg Sodium Chloride 0.9% 1,000 mL lactated ringers infusion 500 mL Agents Name O2 Air N2O Isoflurane (et) Blood No blood administrations on file. Lines, Drains, and Airways Type Details Placement Removal Incision 01/21/22; 0826; Right, 01/21/22 0826 by anterior; knee; vertical Gabi Mendez RN Incision 01/21/22; 0826; midline; 01/21/22 0826 by sternal; horizontal Gabi Mendez RN Arterial Line 01/21/22; 0751; radial 01/21/22 0751 by 01/26/22 0628 by artery, left; 20 gauge; Mateus Rivera DO Todor ovshiv, Anatomical Landmarks; ESTEFANIA Simmons continuous blood pressure monitoring, frequent blood gas measurement; DO Miguel; Sterile Prep, Sterile Gloves; pt pulled out; 01/26/22; 0628 ETT Mask Ventilation: Adjunct 01/21/22 0754 by 01/24 1030 by (2) (100mm OPA); ETT Type: Mateus Rivera DO Ta cewicz, Donald A, Cuffed, Oral; ETT Size: 8 DEMAND GENERATOR MANAGER mm; Villalpando Blade: 2; Attempts: 1; Laryngoscopy Grade: 1; ETT Placement Verified By: Capnometry; Secured at Teeth: 23 cm; Inserted by: DO Miguel Urethral Catheter 01/21/22; 0755; Surgery 01/21/22 0755 by 01/27 1230 by longer than 2 hours, Need Gabi Mendez, Rigoberto Quigley RN for intraoperative urine output monitoring; Immobility without alternative; indwelling catheter with core temperature probe; hydrophilic coated, latex; 14; inserted at this facility; 1; 10; 10; drainage bag to dependent drainage; 01/27/22; 1230 CVC Single/Intro. 01/21/22; 0803; internal 01/21/22 0803 by 01/14 03/07 1159 by jugular vein, right; Mateus Rivera DO Buckley, James M, introducer; Ultrasound RN Guidance; 9 Fr; DO Miguel; tolerated well; WILNER; CVC Bundle Performed; 01/27/22; 1159 PA Catheter 01/21/22; 0808; Right; 01/21/22 0808 by 01/24/22 2100 by internal jugular vein; VIP; Mateus Rivera, DO Lissy ingram, 8 Fr; CVC Bundle Performed; Néstor ibrahim RN pt pulled out [place] Gopal catheter; DO Miguel; 01/24/22; 2100 Chest Tube 01/21/22; 0905; Left; 01/21/22 0905 by 01/23/22 0945 by lateral; other (see Gabi Mendez RN Dewey, David B, RN comments); Pleural Cavity; 01/23/22; 0945 Drain/Device Site 01/21/22; 1005; Right; 01/21/22 1005 by 2217 by distal; thigh; other (see Gabi Mendez RN S ansom, Joseph P, comments) (7mm daniel); Luiz Viramontes PA; 01/21/22; 2217 Chest Tube 01/21/22; 1115; Right; 01/21/22 1115 by 01/23/22 0945 by posterior; mediastinum; 28 Gabi Mendez RN Dewey, David B, RN fr angled; 01/23/22; 0945 Chest Tube 01/21/22; 1120; Left; 01/21/22 1120 by 01/23/22 0945 by anterior; mediastinum; 28 Gabi Mendez RN D Tremaine guadalupe, RN fr straight; 01/23/22; 0945 PIV 01/21/22; 1223; metacarpal 01/21/22 1223 by 01/14 01/07 1506 by vein (top of hand), right; Letty Alexander RN Wotring, Melissa A, 01/25/22; 1506 RN documented in this encounter Social History Tobacco [...] as of this encounter OR Notes Anesthesia Postprocedure Evaluation - Donnie Vasquez MD - 01/21/2022 12:15 PM EST Department of Anesthesiology Post-procedure Note Patient: Burton Mcnair Jr. Procedure Summary Date: 01/21/22 Room / Location: [facility] OR [address] [place] [address] MAIN OR Anesthesia Start: 745 Anesthesia Stop: 1208 Procedures: @CABG, USING ARTERIAL GRAFT;SINGLE ARTERIAL GRAFT (WRVU 33.75) (N/A Chest) ENDOSCOPIC HARVEST VEIN(S) FOR CABG (WRVU 0.31) (Right Leg) @CABG, TWO VENOUS GRAFTS & ARTERIAL GRAFT (WRVU 7.93) (N/A Chest) Diagnosis: (CAD) Surgeons: Danny Antonio MD Responsible Provider: Donnie Vasquez MD Anesthesia Type: general ASA Status: 3 All Anesthesia Providers: Anesthesiologist: Donnie Vasquez MD Business Continuity Coordinator: Mateus Rivera, DO Vitals Value Taken Time BP 66/47 01/21/22 1332 Temp 35.3 ??C (95.5 ??F) 01/21/22 1400 Pulse 80 01/21/22 1454 Resp 20 01/21/22 1454 SpO2 95 % 01/21/22 1454 Pain Level 0 01/21/22 1400 Vitals shown include unvalidated device data. Patient Location: [facility] Level of Consciousness: Sedated (Pharmacologic/Intentional) Pain Management: Pain Being Addressed PONV: None Cardiovascular Status: Hemodynamically Stable Respiratory Status: Stable Respiratory Status Postoperative Fluid Status: Intravascular EUvolemia Possible Anesthetic Complications: NONE apparent at time of evaluation Final Primary Anesthesia Type: General (The anesthetic type performed was the same as planned.) Comments: Anesthesia Preprocedure Evaluation - Donnie Vasquez MD - 01/20/2022 2:06 PM EST Pre-Anesthesia Evaluation for: Burton Mcnair . a 66 y.o. male. Procedure(s): @CABG, USING ARTERIAL GRAFT;SINGLE ARTERIAL GRAFT (WRVU 33.75) ENDOSCOPIC HARVEST VEIN(S) FOR CABG (WRVU 0.31) @CABG, TWO VENOUS GRAFTS & ARTERIAL GRAFT (WRVU 7.93) Patient Active Problem List Diagnosis Date Noted ??? CAD (coronary artery disease) 01/18/2022 ??? [...] Laterality Date ??? CARDIAC CATHERIZATION stent placement Social History Tobacco Use ??? Smoking status: Former Smoker Types: Cigarettes ??? Smokeless tobacco: Never Used ??? Tobacco comment: quit at age 17 Substance Use Topics ??? Alcohol use: Yes Alcohol/week: 2.0 standard drinks Types: 2 Glasses of wine per week Comment: beer on weekends Social History Substance and Sexual Activity Drug Use No Allergies Allergen Reactions ??? Lisinopril Anaphylaxis and Other (See Comments) Ear buzzing, nausea, itching, tongue swelling Medications: MAR and/or home medications have been reviewed. Physical Exam: Preprocedure Vitals Current as of 01/20/22 1406 No BP, pulse, respiration, SpO2, or temperature recorded. Height: Weight: BMI: IBW: Airway Assessment: Mallampati: II TM distance: >3 FB Neck ROM: full Cardiovascular Assessment: Rhythm: regular Rate: normal Pulmonary Assessment: breath sounds clear to auscultation Dental Assessment: - normal exam Misc Assessment: IV access: Peripheral line Last Filed Perioperative Cognitive Screening Value Time User AD8 Total Score: 0 01/17/2022 4:00 PM Brunilda Mendoza RN AD8 Informant: Patient 01/17/2022 4:00 PM Brunilda Mendoza RN CFS Frailty Score: 3 01/17/2022 4:00 PM Brunilda Mendoza RN Anesthesia Plan: ASA 3 general, with a(n) intravenous induction 66 y.o., 103kg male with CAD presenting for CABG PMH significant for DM, HLD, HTN, obesity Medications: amlodipine, ASA, atorvastatin, carvedilol, glipizide, metformin, NTG, omeprazole Anesthetic hx: No reported prior complications with anesthesia Airway hx: no records EK12/2021: NSR NM Stress Test: 11/2017: normal EF, no ischemia, good exercise tolerance Cardiac Cath: 01/2022: 3v CAD (LAD, LCX, RCA), EF 55%, elevated LVEDP (20) Lab Results Component Value Date HGB 11.9 (L) 01/17/2022 PLATELET 194 01/17/2022 INR 0.9 01/17/2022 NA 139 01/17/2022 K 4.0 01/17/2022 CREATININE 1.17 01/17/2022 03/04/22 1636 ABORH O Neg Allergies: -- Lisinopril -- Anaphylaxis and Other (See Comments) -- Ear buzzing, nausea, itching, tongue swelling NPO Status: Appropriate Denies recent fever or URI Sxs Anesthetic Plan: GA with ETT Standard ASA monitoring + pre induction arterial line + CVC + PAC + WILNER Adequate IV access Mateus DO Miguel Pager: [phone] Region - Intrathoracic Cardiac Informed Consent: Anesthetic plan and risks discussed with patient. Use of blood products discussed with patient who consented to blood products. Plan discussed with resident. Anesthesia Screening documented in this encounter Plan of Treatment Upcoming Encounters Date Type Specialty Care Team Description 03/25/2022 Anesthesia Event Surgery Catrachita Baez MD [facility] ANESTHESIOLOGY [place], [place] [address] (Wo rk) 12/15/2022 Office Visit Cardiology Damián Hart MD [facility] [place], [place] [address] (Wo rk) 03/25/2050 Hospital Encounter Surgery Citlalli Richardson MD Vocal cord paralysis [facility] OTOLARYNGOLOGY [place], [place] [address] (Wo rk) documented as of this encounter Visit Diagnoses Not on filedocumented in this encounter Administered Medications Inactive Administered Medications - up to 3 most recent administrations Medication Order MAR Action Action Date Dose Rate Site cefTRIAXone (Rocephin) injection Given 01/21/2022 8:08 AM EST 2 g Intravenous, PRN, Starting on Thu01/21/22 at 0808, Until Thu01/21/22 at 1455, Anesthesia Intra-op, Routine fentaNYL (pf) (50 mcg/mL) multi-dose Given 01/21/2022 9:11 AM ES T 50 mcg injection Intravenous, PRN, Starting on Thu01/21/22 at 0750, Until Thu01/21/22 at 1455, Anesthesia Intra-op, Routine Given 01/21/2022 9:10 AM EST 100 mcg Given 01/21/2022 8:55 AM EST 100 mcg heparin (porcine) (1,000 units/mL) Given 01/21/2022 9:11 AM EST 30,000 Units injection Intravenous, PRN, Starting on Thu01/21/22 at 0911, Until Thu01/21/22 at 1455, Anesthesia Intra-op, Routine insulin regular (HumuLIN R,NovoLIN R) (100 Given 01/21 10:50 AM EST 5 Units unit/mL) injection vial Intravenous, PRN, Starting on Thu01/21/22 at 1027, Until Thu01/21/22 at 1455, Anesthesia Intra-op, Routine Given 01/21/2022 10:27 AM EST 5 Units insulin regular (Myxredlin) Rate/Dose Change 01/21/2022 10:50 10 Un its/hr 10 mL/hr (1 unit/mL) in sodium AM EST chloride 0.9% 100 mL infusion Intravenous, CONTINUOUS PRN, Starting on Thu01/21/22 at 1027, Until Thu01/21/22 at 1455, Anesthesia Intra-op, Routine New Bag 01/21/2022 10:27 AM EST 5 Units/hr 5 mL/hr lactated ringers infusion New Bag 01/21/2022 7:46 AM EST 1,000 mL, at 100 mL/hr, Intravenous, CONTINUOUS, Starting on Thu01/21/22 at 0630, Until Thu01/21/22 at 1235, Day of Surgery (Day of Procedure) midazolam (pf) (Versed) (1 mg/mL) multi-dose Given 06/2022 11:18 AM EST 1.5 mg injection Intravenous, PRN, Starting on Thu01/21/22 at 0746, Until Thu01/21/22 at 1455, Anesthesia Intra-op, Routine Given 01/21/2022 9:35 AM EST 1.5 mg Given 01/21/2022 7:46 AM EST 2 mg NORepinephrine (Levophed) (16 Rate/Dose Change 01/21/2022 11:41 3 m cg/min 11.25 mL/hr mcg/mL) in dextrose 5% 250 mL AM EST infusion Intravenous, CONTINUOUS PRN, Starting on Thu01/21/22 at 1057, Until Thu01/21/22 at 1455, Anesthesia Intra-op, Routine Rate/Dose Change 01/21/2022 11:35 AM EST 2 mcg/min 7.5 mL/hr Rate/Dose Change 01/21/2022 11:11 AM EST 3 mcg/min 11.25 mL/hr PHENYLephrine (David-Synephrine) (80 New Bag 01/21/2022 7:50 AM 20 mcg/min 15 mL/hr mcg/mL) in sodium chloride 0.9% EST 250 mL infusion Intravenous, CONTINUOUS PRN, Starting on Thu01/21/22 at 0750, Until Thu01/21/22 at 1455, Anesthesia Intra-op, Routine PHENYLephrine in NS (PF) (DAVID-SYNEPHRINE) Given 01/21/2022 11:29 AM EST 80 mcg 0.8 mg/10 mL (80 mcg/mL) multi-dose injection Syrg Intravenous, PRN, Starting on Thu01/21/22 at 1124, Until Thu01/21/22 at 1455, Anesthesia Intra-op, Routine Given 01/21/2022 11:27 AM EST 80 mcg Given 01/21/2022 11:26 AM EST 80 mcg propofoL (Diprivan) (10 mg/mL) New Bag 01/21/2022 11:37 50 mcg /kg/min 30.75 mL/hr infusion AM EST Intravenous, CONTINUOUS PRN, Starting on Thu01/21/22 at 1137, Until Thu01/21/22 at 1455, Anesthesia Intra-op, Routine propofoL (Diprivan) 10 mg/mL bolus injection Given 9:13 AM EST 20 mg (Anesthesia) Intravenous, PRN, Starting on Thu01/21/22 at 0750, Until Thu01/21/22 at 1455, Anesthesia Intra-op Given 01/21/2022 7:50 AM EST 190 mg sodium chloride 0.9% infusion New Bag 01/21/2022 8:08 AM EST Intravenous, CONTINUOUS PRN, Starting on Thu01/21/22 at 0808, Until Thu01/21/22 at 1455, Anesthesia Intra-op tranexamic acid (Cyklokapron) New Bag 01/21/2022 8:08 AM 1 mg/kg/h r 1.025 mL/hr (100 mg/mL) infusion EST Intravenous, CONTINUOUS PRN, Starting on Thu01/21/22 at 0808, Until Thu01/21/22 at 1455, Anesthesia Intra-op, Routine tranexamic acid (Cyklokapron) (100 mg/mL) Given 01/21/2022 8 :08 AM EST 1,030 mg IV bolus Intravenous, PRN, Starting on Thu01/21/22 at 0808, Until Thu01/21/22 at 1455, Anesthesia Intra-op, Routine vecuronium (Norcuron) injection Given 01/21/2022 10:28 AM EST 10 mg Intravenous, PRN, Starting on Thu01/21/22 at 0753, Until Thu01/21/22 at 1455, Anesthesia Intra-op, Routine Given 01/21/2022 7:53 AM EST 10 mg documented in this encounter Care Teams University Relations Vice President Relationship Specialty Start Date End Date Vladimir Muñoz DO PCP - General Family Medicine 01/19/18 [address] [place] [address] documented as of this encounter
--- OUTSIDE RECORDS SUMMARY | 2022-08-05 09:05 | XMS_ITS | Encounter Summary ---
:1955 Author Organization [facility] [place] [address] Care Team Providers Name Role Phone Vladimir Muñoz DO Primary Care Provider Encounter Details Date Type Department Care Team Description 01/17/2022 Clinical [place] [address] Social History Tobacco Use Types Packs/Day [...] Sign Reading Time Taken Comments Blood Pressure 147/87 01/17/2022 4:02 PM EST Pulse - - Temperature - - Respiratory Rate - - Oxygen Saturation - - Inhaled Oxygen Concentration - - Weight - - Height - - Body Mass Index - - documented in this encounter Progress Notes Brunilda Mendoza RN - 01/17/2022 3:00 PM EST Abbreviated Anesthesia questionnaire reviewed with patient while in [facility]. Pt has tolerated anesthesia in the past. Pre-operative instruction booklet reviewed with patient. Reviewed importance of pain control and cough and deep breathing exercise during the post-operative period. Instructed patient on use of Hibiclens soap to shower with the night before surgery or the morning of surgery. Pt verbalizes good understanding of all information reviewed. Pt aware received Cardiac Surgery folder. Pt to bring booklet in overnight bag. PLAN Testing: Type and screen, other labs to be done at 3L today. Pt to go 3T for CXR Special medication instructions: Continue aspirin per Dr Antonio's instructions Procedure date: Tentative 01-21-22 Dr Antonio Pre Surgery Covid screening: Were you diagnosed with COVID 19 or had symptoms consistent with COVID 19 within the last 3 months. No documented in this encounter Plan of Treatment Upcoming Encounters Date Type Specialty Care Team Description 03/25/2022 Anesthesia Event Surgery Catrachita Baez MD [facility] ANESTHESIOLOGY [place], [place] [address] (Wo rk) 12/15/2022 Office Visit Cardiology Damián Hart MD [facility] [place], [place] [address] (Wo rk) 03/25/2050 Hospital Encounter Surgery Citlalli Richardson MD Vocal cord paralysis [facility] OTOLARYNGOLOGY [place], [place] [address] (Wo rk) documented as of this encounter Visit Diagnoses Not on filedocumented in this encounter Care Teams Converter Operator Relationship Specialty Start Date End Date Vladimir Muñoz DO PCP - General Family Medicine 01/19/18 [address] [place] [address] documented as of this encounter
--- OUTSIDE RECORDS SUMMARY | 2022-08-05 09:06 | XMS_ITS | Encounter Summary ---
:1955 Author Organization [facility] [address] Care Team Providers Name Role Phone ToniVladimir DO Primary Care Provider Reason for Visit Reason Onset Date Comments Medication Refill 03/19/2020 Encounter Details Date Type Department Care Team Description 03/19/[address] [facility] Damián Hart MD Medication Refill [address] [place] [address] [place] [address] (Wo rk) Social History Tobacco [...] 03/25/2022 Anesthesia Event Surgery Catrachita Baez MD [facility] ER DR ANESTHESIOLOGY [place], [place] [address] (Wo rk) 12/15/2022 Office Visit Cardiology Damián Hart MD [facility] [place], [place] [address] (Wo rk) 03/25/2050 Hospital Encounter Surgery Citlalli Richardson MD Vocal cord paralysis [facility] OTOLARYNGOLOGY [place], [place] [address] (Wo rk) documented as of this encounter Visit Diagnoses Diagnosis ASCVD (arteriosclerotic cardiovascular d isease) Unspecified cardiovascular disease Vocal cord paralysis Paralysis of vocal cords or larynx, unsp ecified documented in this encounter Care Teams Career Development Associate Relationship Specialty Start Date End Date Vladimir Muñoz DO PCP - General Family Medicine 01/19/18 [address] [place] [address] documented as of this encounter
--- OUTSIDE RECORDS SUMMARY | 2022-08-05 09:06 | XMS_ITS | Encounter Summary ---
:1955 Author Organization [place] [address] Care Team Providers Name Role Phone ToniVladimir DO Primary Care Provider Reason for Visit Reason Onset Date Comments Medication Refill 01/24/2019 Encounter Details Date Type Department Care Team Description 01/24/[address] [facility] ([place], [place]) Norma Oconnor park landscape architect Refill [address] [place] [address] Social History Tobacco Use Types Packs/Day Years [...] 03/25/2022 Anesthesia Event Surgery Catrachita Baez MD [facility] ANESTHESIOLOGY [place], [place] [address] (Wo rk) 12/15/2022 Office Visit Cardiology Dami[facility] Hart MD [facility] [place], [place] [address] (Wo rk) 03/25/2050 Hospital Encounter Surgery Citlalli Richardson MD Vocal cord paralysis [facility] ER OTOLARYNGOLOGY [place], [place] [address] (Wo rk) documented as of this encounter Visit Diagnoses Diagnosis Essential hypertension Unspecified essential hypertension ASCVD (arteriosclerotic cardiovascular d isease) Unspecified cardiovascular disease Vocal cord paralysis Paralysis of vocal cords or larynx, unsp ecified documented in this encounter Care Teams Ethylene Plant Operator Relationship Specialty Start Date End Date Vladimir Muñoz DO PCP - General Family Medicine 01/19/18 [address] [place] [address] documented as of this encounter
--- OUTSIDE RECORDS SUMMARY | 2022-08-05 09:06 | XMS_ITS | Encounter Summary ---
:1955 Author Organization [facility] [place] [address] Care Team Providers Name Role Phone Vladimir Muñoz DO Primary Care Provider Encounter Details Date Type Department Care Team Description 06/13/2019 Telephone Cardiology at [facility] Benedicto Oconnor Jr., MD [address] [place] [address] [place] [address] [place] [address] [phone] (Wo rk) Social History Tobacco Use Types [...] this encounter Miscellaneous Notes Telephone Encounter - Shania Montenegro RN - 06/20/2019 1:23 PM EDT He has not started the imdur, he has been using up his renexa. He will call us a few weeks after starting the Imdur and let us know how its going Telephone Encounter - Benedicto Oconnor Jr., MD - 06/13/2019 1:12 PM EDT Called and discussed- he wants to try isosorbide again and stop ranexa Script for 30 mg isosorbide sent Phone check 1 week to see how feeling Telephone Encounter - Shania Montenegro RN - 06/13/2019 11:34 AM EDT I called him back and he says it went up over $100. Wants to know if there is an alternative. He does not remember taking or having any trouble with any other med. I see that he was on isosorbide 30 mgat one point but he does not remember. ( I see in a previous note that he c/o a CHRISTIANSEN on it.) Telephone Encounter - Sheryl Matthews - 06/13/2019 8:57 AM EDT Patient called because he is taking ranexa 1000 mg twice daily. When he went to pick it up the auguste has risen from about $150 to $280. Please call him back at [phone]. documented in this encounter Plan of Treatment Upcoming Encounters Date Type Specialty Care Team Description 03/25/2022 Anesthesia Event Surgery Catrachita Baez MD [facility] [place]HESIOLOGY [place], [place] [address] (Wo jaya) 12/15/2022 Office Visit Cardiology Damián Hart MD [facility] [address] [place], [place] [address] (Wo rk) 03/25/2050 Hospital Encounter Surgery Citlalli Richardson MD Vocal cord paralysis [facility] OT[facility]OLOGY [place], [place] [address] (Wo rk) documented as of this encounter Visit Diagnoses Not on filedocumented in this encounter Care Teams Senior Care Manager Relationship Specialty Start Date End Date Vladimir Muñoz DO PCP - General Family Medicine 01/19/[address] [place] [address] documented as of this encounter
--- OUTSIDE RECORDS SUMMARY | 2022-08-05 09:06 | XMS_ITS | Encounter Summary ---
:1955 Author Organization [facility] [place] [address] Care Team Providers Name Role Phone Vladimir Muñoz DO Primary Care Provider Encounter Details Date Type Department Care Team Description 07/09/2020 Telephone Cardiology at [facility] Keke Murcia, RN [address] [facility] [place] [address] Social History Tobacco Use Types Packs/Day [...] Telephone Encounter - Keke Murcia RN - 07/09/2020 11:53 AM EDTSummary: home BP readings since increase in coreg 12.5 mg to BID Jul 04 144/86 Jul 05 145/91 Jul 06 138/82 Jul 07 142/85 Jul 08 157/88 Jul 09 138/82 documented in this encounter Plan of Treatment Upcoming Encounters Date Type Specialty Care Team Description 03/25/2022 Anesthesia Event Surgery Catrachita Baez MD [facility] ANESTHESIOLOGY [place], [place] [address] (Wo rk) 12/15/2022 Office Visit Cardiology Damián Hart MD [facility] [place], [place] [address] (Wo rk) 03/25/2050 Hospital Encounter Surgery Citlalli Richardson MD Vocal cord paralysis [facility] OTOLARYNGOLOGY [place], [place] [address] (Wo rk) documented as of this encounter Visit Diagnoses Not on filedocumented in this encounter Care Teams Clinical Study Manager Relationship Specialty Start Date End Date Vladimir Muñoz DO PCP - General Family Medicine 01/19/18 [address] [place] [address] documented as of this encounter
--- OUTSIDE RECORDS SUMMARY | 2022-08-05 09:06 | XMS_ITS | Encounter Summary ---
:1955 Author Organization [facility] [place] [address] Care Team Providers Name Role Phone ToniVladimir costa Rohan LOJA Primary Care Provider Reason for Visit Reason Onset Date Comments Medication Refill 03/10/2019 Encounter Details Date Type Department Care Team Description 03/10/2019 Refill Cardiology at [facility] Benedicto Oconnor Jr., MD Medication Refill [address] [facility] [address] [place] [address] A [phone] [place], [place] [address] (Wo rk) Social History Tobacco Use Types [...] Baez MD [facility] ANESTHESIOLOGY [place], [place] [address] (Wo rk) 12/15/2022 Office Visit Cardiology Damián Hart MD [facility] [place], [place] [address] (Wo rk) 03/25/2050 Hospital Encounter Surgery Citlalli Richardson MD Vocal cord paralysis [facility] OTOLARYNGOLOGY [place], [place] [address] (Wo rk) documented as of this encounter Visit Diagnoses Diagnosis ASCVD (arteriosclerotic cardiovascular d isease) Unspecified cardiovascular disease Vocal cord paralysis Paralysis of vocal cords or larynx, unsp ecified documented in this encounter Care Teams Line Out Worker Relationship Specialty Start Date End Date Vladimir Muñoz DO PCP - General Family Medicine 01/19/18 [address] [place] [address] documented as of this encounter
--- OUTSIDE RECORDS SUMMARY | 2022-08-05 09:06 | XMS_ITS | Encounter Summary ---
:1955 Author Organization [facility] [place] [address] Care Team Providers Name Role Phone ToniVladimir DO Primary Care Provider Reason for Visit Reason Comments Medication Refill Encounter Details Date Type Department Care Team Description 05/11/2021 Refill Cardiology at [facility] Damián Hart MD Medication Refill [address] [place] [address] [place] [address] [phone] (Wo rk) Social History Tobacco Use Types [...] Surgery Catrachita Baez MD [facility] [address] ANESTHESIOLOGY [place], [place] [address] (Wo rk) 12/15/2022 Office Visit Cardiology Damián Hart MD [facility] er [place], [place] [address] ( rk) 03/25/2050 Hospital Encounter Surgery Citlalli Richardson MD Vocal cord paralysis [facility] OTOLARYNGOLOGY [place], [place] [address] ( rk) documented as of this encounter Visit Diagnoses Diagnosis Essential hypertension Unspecified essential hypertension Vocal cord paralysis Paralysis of vocal cords or larynx, unsp ecified documented in this encounter Care Teams Gas Line Repairer Relationship Specialty Start Date End Date Vladimir Muñoz DO PCP - General Family Medicine 01/19/18 [address] [place] [address] documented as of this encounter
--- OUTSIDE RECORDS SUMMARY | 2022-08-05 09:06 | XMS_ITS | Encounter Summary ---
:1955 Author Organization [facility] [place] [address] Care Team Providers Name Role Phone Vladimir Muñoz DO Primary Care Provider Reason for Visit Reason Comments Follow-up 2 week fu after increasing R anolazine to 1000 BID. Feels better Encounter Details Date Type Department Care Team Description 01/19/2018 Office Visit Cardiology at Benedicto Oconnor ASCVD (arter iosclerotic cardiovascular disease); Sami Hanks MD Elevated blood pressure reading without diagnosis of hypertension [address] [place] [address] [phone] Social History Tobacco Use Types Packs/Day Years [...] Sign Reading Time Taken Comments Blood Pressure 128/70 01/19/2018 8:19 AM EST Pulse 78 01/19/2018 8:19 AM EST Temperature - - Respiratory Rate - - Oxygen Saturation - - Inhaled Oxygen Concentration - - Weight 99.8 kg (220 lb) 01/19/2018 8:19 AM EST Height 182.9 cm (6') 01/19/2018 8:19 AM EST Body Mass Index 29.84 01/19/2018 8:19 AM EST documented in this encounter Progress Notes Benedicto Oconnor Jr., MD - 01/19/2018 8:20 AM EST Subjective: Patient ID: Burtno Mcnair Jr. is a 62 y.o. male. Chief Complaint Patient presents with ??? Follow-up 2 week fu after increasing Ranolazine to 1000 BID. Feels better HPI On this dose of ranolazine he has had no symptoms at his usual level of activity and only slightdyspnea when going over his usual level or if he starts out very quickly. He is back to his usual walk at his usual pace without problems. He denies dizziness, palpitations, PND or orthopnea. He has slight edema with prolonged standing or sitting. Review of Systems denies other issues No Known Allergies Current Outpatient Prescriptions Medication Sig Dispense Refill ??? ranolazine (RANEXA) 1,000 mg Tablet Sustained Release 12 hr Take 1 tablet by mouth 2 times daily. 60 tablet 11 ??? meTOPROLOL succinate (TOPROL-XL) 100 mg Tablet Sustained Release 24 hr Take 1.5 tablets by mouthdaily. 45 tablet 11 ??? nitroGLYcerin (NITROSTAT) 0.4 mg Tablet, Sublingual Place 1 tablet under the tongue every 5 minutes as needed for Chest pain. 25 tablet 12 ??? amLODIPine (NORVASC) 10 mg Tablet Take 1 tablet by mouth daily. 90 tablet 3 ??? atorvastatin (LIPITOR) 80 mg Tablet Take 1 tablet by mouth daily. 90 tablet 3 ??? clopidogrel (PLAVIX) 75 mg Tablet take 1 tablet by mouth once daily 0 ??? aspirin 81 mg Tablet, Delayed Release (E.C.) Take 81 mg by mouth daily. ??? metFORMIN (GLUCOPHAGE) 1,000 mg Tablet Take 1,000 mg by mouth 2 times daily (with meals). ??? lisinopril (PRINIVIL;ZESTRIL) 40 mg Tablet Take 40 mg by mouth daily. No current facility-administered medications for this visit. Patient Active Problem List Diagnosis ??? CAD (coronary artery disease) ??? Diabetes mellitus ??? Hyperlipidemia ??? Hypertension ??? ASCVD (arteriosclerotic cardiovascular disease) MIBI 2008: [...] Trial of isosorbide- stopped due to headache 10/2017: increased dyspnea in cold air 11/2017: MIBI no ischemia at ST III Objective: Physical Exam BP 128/70 (BP Location (NBP): Left arm, Patient Position: Sitting) Pulse 78 Ht 182.9 cm (6') Wt 99.8 kg (220 lb) BMI 29.84 kg/m2 NAD No JVD/HJR Chest clear Cor RR, no murmur Abd benign Ext no edema Assessment and Plan: Improved angina with current medical management- continue as is and can slowly increase activity Reviewed need for close glucose control Good BP Follow up 3 months documented in this encounter Plan of Treatment Upcoming Encounters Date Type Specialty Care Team Description 03/25/2022 Anesthesia Event Surgery Catrachita Baez MD [facility] [place]HESIOLOGY [place], [place] [address] ([place]) 12/15/2022 Office Visit Cardiology Damián Hart MD [facility] [address] [place] [address] (Wo rk) 03/25/2050 Hospital Encounter Surgery Citlalli Richardson MD Vocal cord paralysis [facility] ER OTOLARYNGOLOGY [place], [place] [address] (Wo rk) documented as of this encounter Visit Diagnoses Diagnosis ASCVD (arteriosclerotic cardiovascular d isease) Unspecified cardiovascular disease Elevated blood pressure reading without diagnosis of hypertension Vocal cord paralysis Paralysis of vocal cords or larynx, unsp ecified documented in this encounter Care Teams Chair Inspector And Leveler Relationship Specialty Start Date End Date Vladimir Muñoz DO PCP - General Family Medicine 01/19/18 [address] [place] [address] documented as of this encounter
--- OUTSIDE RECORDS SUMMARY | 2022-08-05 09:06 | XMS_ITS | Encounter Summary ---
:1955 Author Organization [facility] [place] [address] Care Team Providers Name Role Phone Toni Vladimir Rohan LOJA Primary Care Provider Reason for Visit Reason Comments Medication Refill Encounter Details Date Type Department Care Team Description 01/18/2021 Refill Cardiology at [facility] Damián Hart MD Medication Refill [address] [place] [address] [place] [address] [phone] (Wo rk) Social History Tobacco Use Types [...] Anesthesia Event Surgery Catrachita Baez MD [facility] DR ANESTHESIOLOGY [place], [place] [address] (Wo rk) 12/15/2022 Office Visit Cardiology Damián Hart MD [facility] er [place], [place] [address] ( rk) 03/25/2050 Hospital Encounter Surgery Citlalli Richardson MD Vocal cord paralysis [facility] OTOLARYNGOLOGY [place], [place] [address] ( rk) documented as of this encounter Visit Diagnoses Diagnosis Essential hypertension Unspecified essential hypertension Vocal cord paralysis Paralysis of vocal cords or larynx, unsp ecified documented in this encounter Care Teams Teaching Pastor Relationship Specialty Start Date End Date Vladimir Muñoz DO PCP - General Family Medicine 01/19/18 [address] [place] [address] documented as of this encounter
--- OUTSIDE RECORDS SUMMARY | 2022-08-05 09:06 | XMS_ITS | Encounter Summary ---
:1955 Author Organization [facility] [place] [address] Care Team Providers Name Role Phone Vladimir Muñoz DO Primary Care Provider Reason for Visit Reason Comments Hypertension Coronary Artery Disease Encounter Details Date Type Department Care Team Description [facility]/28[facility]ar teriosclerotic cardiovascular disease[facility] Sami CORADO Essential hypertension [address] [place], [place], [place] [phone] Social History Tobacco Use Types Packs/Day Years [...] Sign Reading Time Taken Comments Blood Pressure 106/74 11/28/2019 8:25 AM EST Pulse 74 11/28/2019 8:25 AM EST Temperature - - Respiratory Rate - - Oxygen Saturation - - Inhaled Oxygen Concentration - - Weight 101.2 kg (223 lb) 11/28/2019 8:15 AM EST Height 182.9 cm (6') 11/28/2019 8:15 AM EST Body Mass Index 30.24 11/28/2019 8:15 AM EST documented in this encounter Progress Notes Damián Hart MD - 11/28/2019 8:20 AM EST Subjective: Patient ID: Burton Mcnair Jr. is a 64 y.o. male. Chief Complaint Patient presents with ??? Hypertension ??? Coronary Artery Disease HPI 64 M presents on f/u for cad. Last seen by Dr Oconnor 05/2019 at which time lasix was initiated for ankle edema; he has not required any Since then, he continues to do well, walking ~ 1 mile most days without exertional chest pain, presyncope. Denies LH, syncope, palpitations, orthopnea, pnd, weight gain, edema. Has noted decreased dyspnea since 6 months ago. He has decreased toprol from 150 to 100mg No bleeding on dapt Does not check bp at home Review of Systems 11 point ROS either negative or per HPI No Known Allergies Current Outpatient Medications Medication Sig Dispense Refill ??? amoxicillin (AMOXIL) 500 mg Capsule TAKE 4 CAPSULES BY MOUTH 1 HOUR BEFORE APPOINTMENT ??? ranolazine (RANEXA) 500 mg Tablet Sustained Release 12 hr Take 1 tablet by mouth 2 times daily. 180 tablet 3 ??? potassium chloride (K-DUR/KLOR-CON) 10 mEq Tablet Sustained Release Take 1 tablet by mouth as needed (take with furosemide). 20 tablet 3 ??? lisinopril (PRINIVIL;ZESTRIL) 40 mg Tablet Take 1 tablet by mouth daily. 90 tablet 3 ??? nitroGLYcerin (NITROSTAT) 0.4 mg Tablet, Sublingual Place 1 tablet under the tongue every 5 minutes x3 as needed for chest pain- 25 tablet 12 ??? atorvastatin (LIPITOR) 80 mg Tablet Take 1 tablet by mouth daily. 90 tablet 3 ??? amLODIPine (NORVASC) 10 mg Tablet Take 1 tablet by mouth daily. 90 tablet 3 ??? aspirin 81 mg Tablet, Delayed Release (E.C.) Take 81 mg by mouth daily. ??? metoprolol succinate XL (TOPROL-XL) 100 mg Tablet Sustained Release 24 hr Take 1 tablet by mouthdaily. 90 tablet 3 ??? clopidogrel (PLAVIX) 75 mg Tablet Take 1 tablet by mouth daily 90 tablet 3 ??? metFORMIN (GLUCOPHAGE) 1,000 mg Tablet Take 1,000 mg by mouth 2 times daily (with meals). No current facility-administered medications for this visit. Patient Active Problem List Diagnosis ??? Diabetes mellitus ??? Hyperlipidemia ??? Hypertension [...] at ST III Objective: Physical Exam BP 106/74 (BP Location (NBP): Right arm, Patient Position: Standing) Pulse 74 Ht 182.9 cm (6') Wt 101.2 kg (223 lb) BMI 30.24 kg/m?? Gen: pleasant male in NAD Cor: rrr, s1/s2 of nl character and amplitude, no m/r/g. Estimated RAP not elevated. Carotids with normal upstroke without bruit. Pulm: CTAB. Normal diaphragmatic movement without use of accessory muscles Ab: soft, nt, nd Ext: no c/c/e. Dp/pt ++ Neuro: without focal deficit. Well kempt, good insight and normal affect Skin: WWP, no rashes nor ulcers Ekg: nsr, mild lvh criteria Assessment and Plan: ASCVD (arteriosclerotic cardiovascular disease) No angina by history. Dyspnea not concerning for coronary/structural issues; perhaps was some chronotropic incompetence from the toprol that since decrease has allowed better HR allowance. Because of the diffuse nature of the CAD, would favor continued DAPT, but can d/c plavix if bleeding or surgery arises - Anti-Thrombosis: dapt - Statin: lipitor 80 - Anti-anginals: norvasc 10, toprol 100, ranexa 500 bid, GTN PRN Hypertension Well controlled on current regimen rtc 9 months Damián Hart MD documented in this encounter Miscellaneous Notes Assessment & Plan Note - Damián Hart MD - 11/28/2019 9:11 AM ESTAssociated Problem(s): Hyperpiesia Well controlled on current regimen Assessment & Plan Note - Damián Hart MD - 11/28/2019 9:09 AM ESTAssociated Problem(s): ASCVD (arteriosclerotic cardiovascular disease) No angina by history. Dyspnea not concerning for coronary/structural issues; perhaps was some chronotropic incompetence from the toprol that since decrease has allowed better HR allowance. Because of the diffuse nature of the CAD, would favor continued DAPT, but can d/c plavix if bleeding or surgery arises - Anti-Thrombosis: dapt - Statin: lipitor 80 - Anti-anginals: norvasc 10, toprol 100, ranexa 500 bid, GTN PRN documented in this encounter Plan of Treatment Upcoming Encounters Date Type Specialty Care Team Description 03/25/2022 Anesthesia Event Surgery Catrachita Baez MD [facility] ANESTHESIOLOGY [place], [place] [address] (Wo rk) 12/15/2022 Office Visit Cardiology Damián Hart MD [facility] [place], [place] [address] (Wo rk) 03/25/2050 Hospital Encounter Surgery Citlalli Richardson MD Vocal cord paralysis [facility] OTOLARYNGOLOGY [place], [place] [address] (Wo rk) documented as of this encounter Procedures Procedure Name Priority Date/Time Associated Diagnosis Comme nts EKG 12-LEAD Routine 11/28/2019 8:23 AM Results f or this EST procedure are i n the results section . documented in this encounter Results EKG 12 Lead (11/28/2019 8:23 AM EST) Component Value Ref Range Test Analysis Performed Pathologis t Method Time At Signature Ventricular rate 65 BPM MUSE SYSTEM Atrial Rate 65 BPM MUSE SYSTEM P-R Interval 200 ms MUSE SYSTEM QRS Duration 98 ms MUSE SYSTEM Q-T Interval 428 ms MUSE SYSTEM QTC Calculated 445 ms MUSE SYSTEM (Bezet) Calculated P Lorton 43 degrees MUSE SYSTEM Calculated R Lorton -15 degrees MUSE SYSTEM Calculated T Lorton 3 degrees MUSE SYSTEM INTERPRETATION Normal sinus rhythm MUSE SYSTEM Moderate voltage criteria for LVH, may be normal variant Borderline ECG When compared with ECG of 11-MAR-2017 07:19, No significant change was found Confirmed by MD Hart Daniel ([id number]) on 12/02/2019 4:40:45 PM Specimen Anatomical Collection Method Collection Time Receive d Time (Source) Location / / Volume Laterality 11/28/2019 8:23 AM 0 4:40 EST PM EST Unknown ECG ORDERABLES Performing Organization Address City/State/ZIP Code Phon e Number MUSE SYSTEM documented in this encounter Visit Diagnoses Diagnosis ASCVD (arteriosclerotic cardiovascular d isease) Unspecified cardiovascular disease Essential hypertension Unspecified essential hypertension Vocal cord paralysis Paralysis of vocal cords or larynx, unsp ecified documented in this encounter Care Teams Professor Of Surgery Relationship Specialty Start Date End Date Vladimir Muñoz DO PCP - General Family Medicine 01/19/18 [address] [place] [address] documented as of this encounter
--- OUTSIDE RECORDS SUMMARY | 2022-08-05 09:06 | XMS_ITS | Encounter Summary ---
:1955 Author Organization [facility] [place] [address] Care Team Providers Name Role Phone ToniVladimir DO Primary Care Provider Reason for Visit Reason Comments Medication Refill Encounter Details Date Type Department Care Team Description 04/12/2020 Refill Cardiology at [facility] Damián Hart MD Medication Refill [address] [place] [address] [place] [address] [phone] (Wo rk) Social History Tobacco Use Types [...] Surgery Catrachita Baez MD [facility] DR ANESTHESIOLOGY [place], [place] [address] (Wo rk) 12/15/2022 Office Visit Cardiology Damián Hart MD [facility] er [place], [place] [address] ( rk) 03/25/2050 Hospital Encounter Surgery Citlalli Richardson MD Vocal cord paralysis [facility] OTOLARYNGOLOGY [place], [place] [address] (Wo rk) documented as of this encounter Visit Diagnoses Diagnosis Essential hypertension Unspecified essential hypertension ASCVD (arteriosclerotic cardiovascular d isease) Unspecified cardiovascular disease Vocal cord paralysis Paralysis of vocal cords or larynx, unsp ecified documented in this encounter Care Teams Tar Roofer Relationship Specialty Start Date End Date Vladimir Muñoz DO PCP - General Family Medicine 01/19/18 [address] [place] [address] documented as of this encounter
--- OUTSIDE RECORDS SUMMARY | 2022-08-05 09:06 | XMS_ITS | Encounter Summary ---
:1955 Author Organization [facility] Address [address] [place] [address] Care Team Providers Name Role Phone Vladimir Muñoz DO Primary Care Provider Encounter Details Date Type Department Care Team Description 01/17/2022 Office Visit Cardiac Surgery at Danny Antonio artery [facility] [place] Bess disease involving [facility] coronary artery Drive of [facility], [place], [place] CARDIOTHORACIC unspecified w [facility] [address] SURGERY angina present [phone] [place] [id number] Social History Tobacco Use Types Packs/Day Years [...] Sign Reading Time Taken Comments Blood Pressure 173/86 01/17/2022 3:26 PM EST Pulse 82 01/17/2022 3:26 PM EST Temperature - - Respiratory Rate - - Oxygen Saturation 98% 01/17/2022 3:26 PM EST Inhaled Oxygen Concentration - - Weight 102.5 kg (226 lb) 01/17/2022 3:26 PM EST Height 182.9 cm (6') 01/17/2022 3:26 PM EST reported Body Mass Index 30.65 01/17/2022 3:26 PM EST documented in this encounter Progress Notes Danny Antonio MD - 01/17/2022 4:00 PM EST To: MD Vladimir Barboza, DO Re: Burton Mcnair ( 1955) We had an opportunity to meet with Mr. Mcnair today to discuss issues surrounding the management of his symptomatic atherosclerotic coronary disease. Mr. Mcnair is a 66-year-old man with known atherosclerotic coronary disease having undergone prior PCI with intracoronary stenting of his right coronary. [...] has moderate to severe disease of his proximalto mid LAD. His past medical history and systems were reviewed in their entirety the pertinent issues are listed below. He has treated hypertension, he is a biw-orkdiuu-gsyujziki diabetic. He has had no known previous CVA or TIA. He has no known renal or hepatic insufficiency. He used tobacco briefly as a teenager. His family history is unremarkable. He is undergone prior bilateral knee operations hehas spinal stenosis and a cholecystectomy in his past. 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 On examination he is a blood pressure 145/80, his heart rates in the 70s at sinus by palpation. His HEENT examination is unremarkable, there are no cervical bruits or masses. There are no cardiac murmurs. His chest is clear to auscultation. His lower extremities are free of edema, there are no gross varicosities. In summary, Mr. Mcnair has severe, symptomatic atherosclerotic coronary disease and the presence of diabetes and mild LV systolic dysfunction I think he is a appropriate candidate for open revascularization. The potential risks and anticipated benefits reviewed carefully with him. He does wish to proceed. This operation is tenderly been scheduled for January pending any further unforeseen abnormalities in his preadmission work-up. In the interim thank you very much for allowing us to participate in his care and should you require anything further please do not hesitate to contact my office. Best personal regards, Danny Antonio MD [phone] In aggregate 50 minutes were spent evaluating this patient, reviewing all images, counseling/examining the patient and communicating with other involved physicians. This evaluation include the complex decision making behind preparing the patient for coronary bypass grafting and recommending coronary bypass grafting to him. documented in this encounter Plan of Treatment Upcoming Encounters Date Type Specialty Care Team Description 03/25/2022 Anesthesia Event Surgery Catrachita Baez MD [facility] ANESTHESIOLOGY [place], [place] [address] (Wo rk) 12/15/2022 Office Visit Cardiology Damián Hart MD [facility] [place], [place] [address] (Wo rk) 03/25/2050 Hospital Encounter Surgery Citlalli Richardson MD Vocal cord paralysis [facility] OTOLARYNGOLOGY [place], [place] [address] (Wo rk) documented as of this encounter Procedures Procedure Name Priority Date/Time Associated Diagnosis Comme nts URINE HOLD Routine 01/17/2022 4:37 PM Results f or this EST procedure are i n the results section. HC UA W/OUT Routine 01/17/2022 4:37 PM Coronary artery Result s for this MICROSCOPIC EST disease involving procedure are in [place] coronary the results artery of [place] section. heart, unspecified whether angina present TYPE AND SCREEN Routine 01/17/2022 4:36 PM Result s for this VALIDITY EST procedure are i n the results section. ABORH RECHECK STATUS Routine 01/17/2022 4:36 PM R esults for this EST procedure are i n the results section. HEMOGRAM Routine 01/17/2022 4:36 PM Coronary artery Result s for this EST disease involving procedure are in [place] coronary the results artery of [place] section. heart, unspecified whether angina present DIFFERENTIAL, Routine 01/17/2022 4:36 PM Coronary artery Resul ts for this AUTOMATED EST disease involving procedure are in [place] coronary the results artery of [place] section. heart, unspecified whether angina present HC ANTIBODY Routine 01/17/2022 4:36 PM Coronary artery DETECTION,CAPTURE-R EST disease involving [place] coronary artery of [place] heart, unspecified whether angina present ABO/RH TYPING Routine 01/17/2022 4:36 PM Coronary artery Resul ts for this EST disease involving procedure are in [place] coronary the results artery of [place] section. heart, unspecified whether angina present HC PROTHROMBIN TIME Routine 01/17/2022 4:36 PM Coronary artery Results for this EST disease involving procedure are in [place] coronary the results artery of [place] section. heart, unspecified whether angina present HC CBC,PLT & AUTO Routine 01/17/2022 4:36 PM Coronary artery DIFF EST disease involving [place] coronary artery of [place] heart, unspecified whether angina present ANTIBODY SCREEN Routine 01/17/2022 4:36 PM Coronary artery Res ults for this EST disease involving procedure are in [place] coronary the results artery of [place] section. heart, unspecified whether angina present HEPATIC FUNCTION Routine 01/17/2022 4:36 PM Coronary artery Re sults for this PANEL EST disease involving procedure are in [place] coronary the results artery of [place] section. heart, unspecified whether angina present BASIC METABOLIC Routine 01/17/2022 4:36 PM Coronary artery Res ults for this PANEL (NON-FASTING) EST disease involving pro cedure are in [place] coronary the results artery of [place] section. heart, unspecified whether angina present documented [...] who have questions please contact the health director of healthcare systems that requested your imaging first. ? Electronically signed by: Nara Costello MD, [facility] ([phone]), at 01/17/2022 5:00 PM Narrative 01/17/2022 5:00 PM EST EXAMINATION: XR [...] ho have questions please contact the health director of healthcare systems that requested your imaging first. Electronically signed by: Nara Costello MD, [facility] ([phone]), at 01/17/2022 5:00 PM Danny Antonio MD IMG DX ORDERABLES Urine Hold (01/17/2022 4:37 PM EST) P athologist Signature Urine Hold Sample in [facility]. [facility] Specimen Anatomical Collection Method Collection Time Receive d Time (Source) Location / / Volume Laterality Urine Urine / Unknown 01/17/2022 4:37 PM 2021 4:53 EST PM EST Danny Antonio MD URINE ORDERABLES Performing Organization Address City/[facility]/ZIP Code Phon e Number [address] (ABNORMAL) Urinalysis without microscopic (01/17/2022 4:37 PM EST) Patholo gist Method Time Signature Glucose UA Negative Negative [facility] mg/dL [facility] Protein UA >=300 (A) Negative [facility] mg/dL [facility] Bilirubin UA Negative Negative [facility] mg/dL [facility] Comment: Clinical correlation required for positi ve Urine Bilirubin results as false positive may occur with some drugs and d rug related products. If a false positive is suspected a serum total bili ledezma should be considered if clinically indicated. Urobilinogen UA Normal Normal mg/dL [facility] pH UA 7.0 5.0 - 8.0 [facility] Blood UA Moderate (A) Negative mg/dL [facility] Ketones UA Negative Negative mg/dL [facility] Nitrite UA Negative Negative [facility] Leukocytes UA Negative Negative [facility] LABORATORY Appearance UA Clear Clear [facility] Spec [place] UA 1.013 1.005 - 1.030 [facility] Color UA Yellow Yellow [facility] Specimen Anatomical Collection Method Collection Time Receive d Time (Source) Location / / Volume Laterality Urine 01/17/2022 4:37 PM 4:52 EST PM EST Resulting Agency Comment Spec In Lab Danny Antonio MD URINE ORDERABLES Performing Organization Address City/[facility]/ZIP Code Phon e Number [address] Type and Screen Validity (01/17/2022 4:36 PM EST) [facility] Method Time Signature T&S only valid [facility] JAIRO GRANADO at [facility] Comment: This Type and Screen result is only valid at the [facility] Specimen Anatomical Collection Method Collection Time Receive d Time (Source) Location / / Volume Laterality Blood 01/17/2022 4:36 PM 2 4:40 EST PM EST Resulting Agency Comment Spec In Lab Danny Antonio MD BLOOD BANK ORDERABLES Performing Organization Address City/State/ZIP Code Phon e Number [address] ABORH Recheck Status (01/17/2022 4:36 PM EST) [facility] Method Time Signature ABORH Type Completed [facility] LABORATORY Specimen Anatomical Collection Method Collection Time Receive d Time (Source) Location / / Volume Laterality Blood 01/17/2022 4:36 PM 2 4:40 EST PM EST Resulting Agency Comment Spec In Lab Danny Antonio MD BLOOD BANK ORDERABLES Performing Organization Address City/State/ZIP Code Phon e Number [address] Antibody screen (01/17/2022 4:36 PM EST) [facility] Method Time Signature Ab Screen Negative [facility] LABORATORY Expires at 01/24/2022 JAIRO GRANADO [id number] on: [facility] Specimen Anatomical Collection Method Collection Time Receive d Time (Source) Location / / Volume Laterality Blood 01/17/2022 4:36 PM 2 4:40 EST PM EST Resulting Agency Comment Spec In Lab Danny Antonio MD BLOOD BANK ORDERABLES Performing Organization Address City/[facility]/ZIP Code Phon e Number [address] Differential, Automated (01/17/2022 4:36 PM EST) athologist Signature Neutrophils % 71.0 % [facility] Neutr Abs (ANC) 5.19 1.70 - [facility] 6.10 [facility] x10(3)/[facility] LABORATORY Lymphocytes % 16.7 % [facility] Lymphocytes Abs 1.2 0.9 - 3.2 [facility] x10(3)/[facility] LABORATORY Monocytes % 8.6 % [facility] Monocyte Abs 0.6 0.3 - 0.9 [facility] x10(3)/[facility] LABORATORY Eosinophils % 2.6 % [facility] Eosinophils Abs 0.2 0.0 - 0.4 [facility] x10(3)/[facility] LABORATORY Basophils % 0.8 % [facility] Basophils Abs 0.1 0.0 - 0.1 [facility] x10(3)/[facility] LABORATORY Immature Gran % 0.30 % [facility] Comment: Immature granulocytes(IG's)percentage an d absolute count will include metamyelocytes, myelocytes, and promyelo cytes. Blood smears from CBCs yielding IG's will be scanned manually for concor dance. If this scan disagrees with the automated IG or if promyelocytes are not ed, a manual differential will be performed. Nikole Gran Abs 0.02 0.00 - 0.04 x10(3)/[facility] LABORATORY Specimen Anatomical Collection Method Collection Time Receive d Time (Source) Location / / Volume Laterality Blood 01/17/2022 4:36 PM 4:48 EST PM EST Resulting Agency Comment Spec In Lab Danny nAtonio MD HEMATOLOGY ORDERABLES Performing Organization Address City/State/[place] [address] ABO/Rh Typing (01/17/2022 4:36 PM EST) P athologist Signature ABORh Type O Neg [facility] Specimen Anatomical Collection Method Collection Time Receive d Time (Source) Location / / Volume Laterality Blood 01/17/2022 4:36 PM 4:40 EST PM EST Resulting Agency Comment Spec In Lab Danny Antonio MD BLOOD BANK ORDERABLES Performing Organization Address City/State/[place] [address] (ABNORMAL) Hemogram (01/17/2022 4:36 PM EST) Analysis Performed At Patho logist Time Signature WBC 7.3 4.0 - 9.5 [facility] [place] LABORATORY RBC 3.83 (L) 4.58 - JAIRO LOY 5.54 [facility] x10(6)/[facility] LABORATORY Hemoglobin 11.9 (L) 13.7 - [facility] 16.5 g/dL [facility] Hematocrit 33.8 (L) 40.5 - [facility] 48.5 % [facility] MCV 88.3 82.9 - [facility] 93.1 [facility] LABORATORY MCH 31.1 27.5 - [facility] LOY 32.1 pg [facility] MCHC 35.2 32.0 - [facility] LOY 35.7 g/dL [facility] Platelets 194 145 - 357 [facility] x10(3)/[facility] [place] LABORATORY RDWSD 41.6 36.0 - [facility] Ketera 45.0 [facility] LABORATORY RDWCV 13.0 11.4 - [facility] LOY 13.8 % [facility] MPV 9.4 7.6 - 12.9 [facility] LABORATORY nRBC % Auto 0.0 % [facility] nRBC Abs Auto 0.000 0.000 - [facility] LOY 0.000 [facility] x10(3)/[facility] LABORATORY Specimen Anatomical Collection Method Collection Time Receive d Time (Source) Location / / Volume Laterality Blood 01/17/2022 4:36 PM 4:48 EST PM EST Resulting Agency Comment Spec In Lab Danny Antonio MD HEMATOLOGY ORDERABLES Performing Organization Address City/State/[place] [address] Prothrombin Time (01/17/2022 4:36 PM EST) P athologist Signature PT 10.6 9.4 - 12.5 [facility] sec [facility] INR 0.9 [facility] Comment: An INR <2.0 indicates adequate procoagul ant [...] (Source) Location / / Volume Laterality Blood 01/17/2022 4:36 PM 2 4:48 EST PM EST Resulting Agency Comment Spec In Lab Danny Antonio MD HEMATOLOGY ORDERABLES Performing Organization Address City/[facility] Code Phon e Number [address] Hepatic Function Panel (01/17/2022 4:36 PM EST) P athologist Signature Total Protein 7.2 6.1 - 8.0 JA[facility] LOY g/dL [facility] Albumin 4.3 3.2 - 5.2 [facility] LOY g/dL [facility] AST 25 0 - 39 [facility] LOY unit/L [facility] ALT 18 0 - 55 JA[place] LOY unit/L [facility] Alk Phos 116 40 - 130 [facility] LOY unit/L [facility] Total 0.5 0.2 - 1.3 [facility] LOY Bilirubin mg/dL [facility] Bili, Direct 0.2 0.0 - 0.3 [facility] LOY mg/dL [facility] Specimen Anatomical Collection Method Collection Time Receive d Time (Source) Location / / Volume Laterality Blood 01/17/2022 4:36 PM 2 4:48 EST PM EST Resulting Agency Comment Spec In Lab Danny Antonio MD CHEMISTRY ORDERABLES Performing Organization Address City/[facility] [place] [address] Basic Metabolic Panel (non-fasting) (01/17/2022 4:36 PM EST) P athologist Signature Glucose Lvl 175 65 - 199 [facility] mg/dL [facility] Comment: Diabetes: >=200 mg/dL plus symp toms BUN 15 10 - 20 mg/dL [facility] Creatinine 1.17 0.80 - 1.50 mg/dL [facility] Sodium 139 135 - 145 mmol/L [facility] Potassium 4.0 3.5 - 5.0 mmol/L [facility] Comment: Please note: ??Patients with WBC >100,00 0 may have falsely elevated Potassium levels. ??For accurate Potassium quantif ication in these patients send serum separator tube (gold top) for subsequent determinations. ??Contact the Clinical Chemistry Laboratory if there are any qu estions. Chloride 102 98 - 107 mmol/L [facility] CO2 24 22 - 31 mmol/L [facility] Anion Gap 13 5 - 15 mmol/L [facility] Calcium 9.2 8.5 - 10.5 mg/dL [facility] Estimated GFR 64 >=60 mL/min/1.73 m?? [facility] Comment: This patient? s estimated glomerular filtration rate (eGFR) is between 64 mL/min/1.73 m2 (patients with less muscl e mass per kg body weight) and 74 mL/min/1.73 m2 (patients with more muscl e [...] (Source) Location / / Volume Laterality Blood 01/17/2022 4:36 PM 2 4:48 EST PM EST Resulting Agency Comment Spec In Lab Danny Antonio MD CHEMISTRY ORDERABLES Performing Organization Address City/State/[place] [address] documented in this encounter Visit Diagnoses Diagnosis Coronary artery disease involving [place] coronary artery of [place] heart, unspecified whether angina present Coronary artery disease involving [place] coronary artery of [place] heart, unspecified whether angina present Vocal cord paralysis Paralysis of vocal cords or larynx, unsp ecified documented in this encounter Care Teams Manager Category Relationship Specialty Start Date End Date Vladimir Muñoz DO PCP - General Family Medicine 01/19/18 [address] [place] [address] documented as of this encounter
--- OUTSIDE RECORDS SUMMARY | 2022-08-05 09:06 | XMS_ITS | Encounter Summary ---
:1955 Author Organization [facility] [place] [address] Care Team Providers Name Role Phone ToniVladimir costa Rohan LOJA Primary Care Provider Reason for Visit Reason Onset Date Comments Medication Refill 02/14/2019 Encounter Details Date Type Department Care Team Description 02/14/2019 [facility] Benedicto Oconnor Jr., MD Medication Refill [address] [facility] A [address] [place] [address] A [phone] [place], [place] [address] (Wo rk) Social History [...] Event Surgery Catrachita Baez MD [facility] ANESTHESIOLOGY [place], [place] [address] (Wo rk) 12/15/2022 Office Visit Cardiology Damián Hart MD [facility] [place], [place] [address] (Wo rk) 03/25/2050 Hospital Encounter Surgery Citlalli Richardson MD Vocal cord paralysis [facility] OTOLARYNGOLOGY [place], [place] [address] (Wo rk) documented as of this encounter Visit Diagnoses Diagnosis ASCVD (arteriosclerotic cardiovascular d isease) Unspecified cardiovascular disease Vocal cord paralysis Paralysis of vocal cords or larynx, unsp ecified documented in this encounter Care Teams Brass Reclaimer Relationship Specialty Start Date End Date Vladimir Muñoz DO PCP - General Family Medicine 01/19/18 [address] [place] [address] documented as of this encounter
--- OUTSIDE RECORDS SUMMARY | 2022-08-05 09:06 | XMS_ITS | Encounter Summary ---
:1955 Author Organization [facility] [place] [address] Care Team Providers Name Role Phone ToniVladimir DO Primary Care Provider Reason for Visit Reason Comments Medication Refill Encounter Details Date Type Department Care Team Description 04/13/2021 Refill Cardiology at [facility] Damián Hart MD Medication Refill [address] [facility] [address] [place] [address] [place] [address] [phone] (Wo rk) Social History Tobacco Use Types [...] 03/25/2022 Anesthesia Event Surgery Catrachita Baez MD [facility] DR ANESTHESIOLOGY [place], [place] [address] (Wo rk) 12/15/2022 Office Visit Cardiology Damián Hart MD [facility] er [place], [place] [address] ( rk) 03/25/2050 Hospital Encounter Surgery Citlalli Richardson MD Vocal cord paralysis [facility] OTOLARYNGOLOGY [place], [place] [address] ( rk) documented as of this encounter Visit Diagnoses Diagnosis ASCVD (arteriosclerotic cardiovascular d isease) Unspecified cardiovascular disease Vocal cord paralysis Paralysis of vocal cords or larynx, unsp ecified documented in this encounter Care Teams Precision Lens Technician Relationship Specialty Start Date End Date Vladimir Muñoz DO PCP - General Family Medicine 01/19/18 [address] [place] [address] documented as of this encounter
--- OUTSIDE RECORDS SUMMARY | 2022-08-05 09:06 | XMS_ITS | Encounter Summary ---
:1955 [place] [address] Care Team Providers Name Role Phone Vladimir Muñoz DO Primary Care Provider Reason for Visit Reason Comments Coronary Artery Disease Hypertension Encounter Details Date Type Department Care Team Description 08/20/2020 [facility] ASCVD (ar teriosclerotic cardiovascular disease); Sami CORADO Hyperpiesia [address] [place], [place], [place] [phone] Social History Tobacco Use Types Packs/Day Years [...] Sign Reading Time Taken Comments Blood Pressure 145/89 08/20/2020 8:46 AM EDT Pulse 83 08/20/2020 8:46 AM EDT Temperature - - Respiratory Rate - - Oxygen Saturation - - Inhaled Oxygen Concentration - - Weight 98.9 kg (218 lb) 08/20/2020 8:46 AM EDT Height 182.9 cm (6') 08/20/2020 8:46 AM EDT Body Mass Index 29.57 08/20/2020 8:46 AM EDT documented in this encounter Progress Notes Damián Hart MD - 08/20/2020 8:20 AM EDT Images from the original note were not included. Subjective: Patient ID: Burton Mcnair Jr. is a 65 y.o. male who presents on follow-up for: Chief Complaint Patient presents with ??? Coronary Artery Disease ??? Hypertension HPI Last seen by me 11/2019, at which time no changes were made. He has had high blood pressure; toprol was switched to coreg withi improvement. Chlorthalidone had been tried, but this had caused side effects and was ceased. Since then, he has been doing well; he walks and has been stacking wood without exertional chest pain, dyspnea, presyncope. Denies LH, syncope, palpitations, orthopnea, pnd, weight gain, edema. BP hasn't been checked in a bit; getting cuff recalibrated . However, checks at various office visits have been unremarkable. Review of Systems Constitutional, cardiac, respiratory systems otherwise negative Current Outpatient Medications: ??? carvediloL (Coreg) 25 mg Tablet, Take 1 tablet by mouth 2 times daily (with meals)., Disp: 60 tablet, Rfl: 5 ??? amLODIPine (Norvasc) 10 mg Tablet, take [...] 81 mg Tablet, Delayed Release (E.C.), Take 81 mg by mouth daily., Disp: , Rfl: ??? metFORMIN (GLUCOPHAGE) 1,000 mg Tablet, Take 1,000 mg by mouth 2 times daily (with meals)., Disp: , Rfl: Patient Active Problem List Diagnosis ??? Acquired deformity of foot ??? [...] MIBI no ischemia at ST III Objective: BP 145/89 (BP Location (NBP): Left arm, Patient Position: Sitting, BP Cuff Sizes: Adult (25-34 cm)) Pulse 83 Ht 182.9 cm (6') Wt 98.9 kg (218 lb) BMI 29.57 kg/m?? Gen: pleasant male in NAD Cor: rrr, s1/s2 of nl character and amplitude, no m/r/g. Estimated RAP not elevated. Carotids with normal upstroke without bruit. Pulm: CTAB. Normal diaphragmatic movement without use of accessory muscles Ab: soft, nt, nd Ext: no c/c/e. Dp/pt ++ Neuro: without focal deficit. Well kempt, good insight and normal affect Skin: WWP, no rashes nor ulcers Assessment and Plan: ASCVD (arteriosclerotic cardiovascular disease) No angina per history. - Anti-Thrombosis: asa 81. Can d/c plavix - Statin: lipitor 80 - Anti-anginals: GTN PRN, norvasc 10, coreg 25 bid Hyperpiesia Well controlled on current regimen - norvasc 10 - coreg 25 bid - had s/e to chlorthalidone RTC 12 months Damián Hart MD documented in this encounter Miscellaneous Notes Assessment & Plan Note - Damián Hart MD - 08/20/2020 9:15 AM EDTAssociated Problem(s): Hyperpiesia Well controlled on current regimen - norvasc 10 - coreg 25 bid - had s/e to chlorthalidone Assessment & Plan Note - Damián Hart MD - 08/20/2020 9:13 AM EDTAssociated Problem(s): ASCVD (arteriosclerotic cardiovascular disease) No angina per history. - Anti-Thrombosis: asa 81. Can d/c plavix - Statin: lipitor 80 - Anti-anginals: GTN PRN, norvasc 10, coreg 25 bid documented in this encounter Plan of Treatment Upcoming Encounters Date Type Specialty Care Team Description 03/25/2022 Anesthesia Event Surgery Catrachita Baez MD [facility] ANESTHESIOLOGY [place], [place] [address] (Wo rk) 12/15/2022 Office Visit Cardiology Damián Hart MD [facility] [place], [place] [address] (Wo rk) 03/25/2050 Hospital Encounter Surgery Citlalli Richardson MD Vocal cord paralysis [facility] OTOLARYNGOLOGY [place], [place] [address] (Wo rk) documented as of this encounter Visit Diagnoses Diagnosis ASCVD (arteriosclerotic cardiovascular d isease) Unspecified cardiovascular disease Hyperpiesia Unspecified essential hypertension Vocal cord paralysis Paralysis of vocal cords or larynx, unsp ecified documented in this encounter Care Teams Writing Manager Relationship Specialty Start Date End Date Toni, Vladimir G, DO PCP - General Family Medicine 01/19/18 [address] [place] [address] documented as of this encounter
--- OUTSIDE RECORDS SUMMARY | 2022-08-05 09:06 | XMS_ITS | Encounter Summary ---
:1955 Author Organization [place] [address] Care Team Providers Name Role Phone Vladimir Muñoz DO Primary Care Provider Encounter Details Date Type Department Care Team Description 02/25/2019 Telephone Cardiology at [facility] Benedicto Oconnor Jr., MD [address] [place] [address] [place] [address] [place] [address] [phone] (Wo rk) Social History Tobacco Use Types [...] this encounter Miscellaneous Notes Telephone Encounter - Courtney Jordan - 03/01/2019 11:24 AM EDT Pt informed and retnd call confirming appt Telephone Encounter - Courtney Jordan - 02/28/2019 4:53 PM EDT appt scheduled 05/26/2019 8:20 LM pt to retn call Telephone Encounter - Keke Murcia, RN - 02/28/2019 3:[address] Oconnor has received the message about how you are doing; will have Tika contact him for making his next appointment in May Telephone Encounter - Benedicto Oconnor Jr., MD - 02/28/2019 1:19 PM EDT Ok continue as is Follow up may Telephone Encounter - Kenroy Valdes RN - 02/25/2019 3:03 PM EDT 1 month phone check. Patient was reports he has been taking nitro before exercising and says it has helped, he reports being less SOB and he is able to do more activity. documented in this encounter Plan of Treatment Upcoming Encounters Date Type Specialty Care Team Description 03/25/2022 Anesthesia Event Surgery Catrachita Baez MD [facility] ANESTHESIOLOGY [place] [address] (Wo rk) 12/15/2022 Office Visit Cardiology Damián Hart MD [facility] [address] [place] [address] (Wo rk) 03/25/2050 Hospital Encounter Surgery Citlalli Richardson MD Vocal cord paralysis [facility] OTOLARYNGOLOGY [place], [place] [address] (Wo rk) documented as of this encounter Visit Diagnoses Not on filedocumented in this encounter Care Teams Bulldozer Operator Relationship Specialty Start Date End Date Vladimir Muñoz DO PCP - General Family Medicine 01/19/18 [address] [place] [address] documented as of this encounter
--- OUTSIDE RECORDS SUMMARY | 2022-08-05 09:06 | XMS_ITS | Encounter Summary ---
:1955 Author Organization [facility] [place] [address] Care Team Providers Name Role Phone Vladimir Muñoz DO Primary Care Provider Encounter Details Date Type Department Care Team Description 01/06/2022 Telephone Cardiology at [facility] Damián Hart MD [address] [place] [address] [place] [address] [place] [address] (Wo rk) Social History Tobacco [...] Telephone Encounter - Keke Murcia RN - 01/06/2022 2:41 PM EST When will cardiac cath be done? Baljinder is scheduled for tomorrow at 10 am with cardiology high density press laborer at [facility]. Baljinder has not been contacted to be confirmed or instructed. Baljinder has a day of planned activities tomorrow. Plan: I will call the card cath team and ask them to give Baljinder a call back with the plan. Baljinder's best phone number [phone] documented in this encounter Plan of Treatment Upcoming Encounters Date Type Specialty Care Team Description 03/25/2022 Anesthesia Event Surgery Catrachita Baez MD [facility] ANESTHESIOLOGY [place], [place] [address] (Wo rk) 12/15/2022 Office Visit Cardiology Damián Hart MD [facility] [place], [place] [address] (Wo rk) 03/25/2050 Hospital Encounter Surgery Citlalli Richardson MD Vocal cord paralysis [facility] OTOLARYNGOLOGY [place], [place] [address] (Wo rk) documented as of this encounter Visit Diagnoses Not on filedocumented in this encounter Care Teams Sales Manager Prearranged Funerals Relationship Specialty Start Date End Date Vladimir Muñoz DO PCP - General Family Medicine 01/19/18 [address] [place] [address] documented as of this encounter
--- OUTSIDE RECORDS SUMMARY | 2022-08-05 09:06 | XMS_ITS | Encounter Summary ---
:1955 Author Organization [facility] [address] Care Team Providers Name Role Phone ToniVladimir DO Primary Care Provider Reason for Visit Reason Comments Follow-up 3 month F/U ASCVD Encounter Details Date Type Department Care Team Description 04/21/2018 Office Visit Cardiology at [facility] Oconnor ASCVD (arter iosclerotic cardiovascular disease); Sami Hanks MD Essential hypertension; [address] [facility] Hype rlipidemia, unspecified hyperlipidemia type [place] [phone] Social History Tobacco Use Types Packs/Day Years [...] Sign Reading Time Taken Comments Blood Pressure 126/68 04/21/2018 8:15 AM EDT Pulse 76 04/21/2018 8:11 AM EDT Temperature - - Respiratory Rate - - Oxygen Saturation - - Inhaled Oxygen Concentration - - Weight 99.3 kg (219 lb) 04/21/2018 8:11 AM EDT Height 182.9 cm (6') 04/21/2018 8:11 AM EDT Body Mass Index 29.7 04/21/2018 8:11 AM EDT documented in this encounter Progress Notes Benedicto Oconnor Jr., MD - 04/21/2018 8:20 AM EDT Subjective: Patient ID: Vinod Ochoa Jr. is a 63 y.o. male. Chief Complaint Patient presents with ??? Follow-up 3 month F/U ASCVD HPI He is still getting some symptoms with activity, especially if he goes fast or up a steeper hill. Sometimes the sensation is more like GERD with irritation or fullness in the back of his throat. NTG sometimes helps and sometimes doesn't. He has limited some of his activity. He denies dyspnea, dizziness or palpitations. He has not had edema, PND or orthopnea. Review of Systems following his diet well No Known Allergies Current Outpatient Prescriptions Medication [...] at ST III Objective: Physical Exam BP 126/68 (BP Location (NBP): Left arm, Patient Position: Standing) Pulse 76 Ht 182.9 cm (6') Wt 99.3 kg (219 lb) BMI 29.7 kg/m2 NAD No JVD/HJR Chest clear Cor RR, no murmur Abd benign Ext no edema Results for VINOD OCHOA JR. ( ) as of 04/21/2018 08:21 Ref. 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 Some symptoms may also be GERD- he is to try anti acids before exercise to see if that helps. He is on maximal level of medications and intolerant of long acting nitrates Excellent lipids Excellent BP Follow up 3 months documented in this encounter Plan of Treatment Upcoming Encounters Date Type Specialty Care Team Description 03/25/2022 Anesthesia Event Surgery Catrachita Baez MD [facility] ANESTHESIOLOGY [place], [place] [address] (Wo rk) 12/15/2022 Office Visit Cardiology Damián Hart MD [facility] [place], [place] [address] (Wo rk) 03/25/2050 Hospital Encounter Surgery Citlalli Richardson MD Vocal cord paralysis [facility] OTOLARYNGOLOGY [place], [place] [address] (Wo rk) documented as of this encounter Visit Diagnoses Diagnosis ASCVD (arteriosclerotic cardiovascular d isease) Unspecified cardiovascular disease Essential hypertension Unspecified essential hypertension Hyperlipidemia, unspecified hyperlipidem ia type Vocal cord paralysis Paralysis of vocal cords or larynx, unsp ecified documented in this encounter Care Teams Toe Lining Closer Relationship Specialty Start Date End Date Vladimir Muñoz DO PCP - General Family Medicine 01/19/18 [address] [place] [address] documented as of this encounter
--- OUTSIDE RECORDS SUMMARY | 2022-08-05 09:06 | XMS_ITS | Encounter Summary ---
:1955 Author Organization [facility] [place] [address] Care Team Providers Name Role Phone Vladimir Muñoz DO Primary Care Provider Encounter Details Date Type Department Care Team Description 06/29/2018 Telephone Cardiology at [facility] Benedicto Oconnor Jr., MD [address] [place] [address] [place] [address] [place] [address] [phone] (Wo rk) Social History Tobacco Use Types [...] Notes Telephone Encounter - Courtney Jordan - 07/06/2018 1:39 PM EDT Pt aware of appt Telephone Encounter - Courtney Jordan - 07/06/2018 10:57 AM EDT appt scheduled 07/21/2018 2:20 pm Left message for pt to retn call Telephone Encounter - Shania Montenegro RN - 06/29/2018 9:01 AM EDT Doesn't feel an urgent need for a visit but nothing has changed, still getting SOB with hills when he walks. Told him we would call him after we reviewed the schedule for a visit. Telephone Encounter - Courtney Jordan - 06/29/2018 8:35 AM EDT Pt called and is asking for a sooner appt than 09/13/18 1:40 He had appt for 08/05/18 and needed to be corby for Dr Oconnor meeting He is saying he is also SOB [phone] documented in this encounter Plan of Treatment Upcoming Encounters Date Type Specialty Care Team Description 03/25/2022 Anesthesia Event Surgery Catrachita Baez MD [facility] ANESTHESIOLOGY [place], [place] [address] (Wo rk) 12/15/2022 Office Visit Cardiology Damián Hart MD [facility] [address] [place] [address] (Wo rk) 03/25/2050 Hospital Encounter Surgery Citlalli Richardson MD Vocal cord paralysis [facility] OTOLARYNGOLOGY [place], [place] [address] (Wo rk) documented as of this encounter Visit Diagnoses Not on filedocumented in this encounter Care Teams Flight Inspector Relationship Specialty Start Date End Date Vladimir Muñoz DO PCP - General Family Medicine 01/19/18 [address] [place] [id number] documented as of this encounter
--- OUTSIDE RECORDS SUMMARY | 2022-08-05 09:06 | XMS_ITS | Encounter Summary ---
:1955 Author Organization [facility] [place] [address] Care Team Providers Name Role Phone Vladimir Muñoz DO Primary Care Provider Reason for Visit Reason Comments Follow-up 4 month f/u Angina, Using N TG some when he walks Encounter Details Date Type Department Care Team Description 05/26/2019 Office Visit Cardiology at Benedicto Oconnor Essential hy pertension; Sami Hanks MD Hyperlipidemia, unspecified hyperlipidem ia type; [address] [facility] ASCV D (arteriosclerotic cardiovascular disease); [address] [place] [address] [phone] Social History Tobacco Use Types Packs/Day Years [...] Sign Reading Time Taken Comments Blood Pressure 130/78 05/26/2019 8:22 AM EDT Pulse 64 05/26/2019 8:22 AM EDT Temperature - - Respiratory Rate - - Oxygen Saturation - - Inhaled Oxygen Concentration - - Weight 100.7 kg (222 lb) 05/26/2019 8:22 AM EDT Height 182.9 cm (6') 05/26/2019 8:22 AM EDT Body Mass Index 30.11 05/26/2019 8:22 AM EDT documented in this encounter Progress Notes Benedicto Oconnor Jr., MD - 05/26/2019 8:20 AM EDT Subjective: Patient ID: Burton Mcnair Jr. is a 64 y.o. male. Chief Complaint Patient presents with ??? Follow-up 4 month f/u Angina, Using NTG some when he walks HPI He has chest pain with walking up hill on hot and humid days and with carrying over 20 pounds any distance. If he takes a NTG before activity it does not occur. If he gets it and it does not relieve with rest 1 NTG stops it. His activity level is about the same. He paces himself to avoid angina when he can. He has no worse dyspnea and denies palpitations or dizziness. He has edema in very hot weather, no PND or orthopnea. Review of Systems Blood sugar under good control No Known Allergies Current Outpatient Medications Medication Sig Dispense Refill ??? ranolazine (RANEXA) 1,000 mg Tablet Sustained Release 12 hr Take 1 tablet by mouth 2 times daily. 180 tablet 3 ??? lisinopril (PRINIVIL;ZESTRIL) 40 mg Tablet Take 1 tablet by mouth daily. 90 tablet 3 ??? nitroGLYcerin (NITROSTAT) 0.4 mg Tablet, Sublingual Place 1 tablet under the tongue every 5 minutes x3 as needed for chest pain- 25 tablet 12 ??? atorvastatin (LIPITOR) 80 mg Tablet Take 1 tablet by mouth daily. 90 tablet 3 ??? metoprolol succinate (TOPROL-XL) 100 mg Tablet Sustained Release 24 hr Take 1.5 tablets by mouthdaily. 135 tablet 3 ??? amLODIPine (NORVASC) 10 mg Tablet Take 1 tablet by mouth daily. 90 tablet 3 ??? clopidogrel (PLAVIX) 75 mg Tablet Take 1 tablet by mouth daily 90 tablet 3 ??? aspirin 81 [...] at ST III Objective: Physical Exam BP 130/78 (BP Location (NBP): Left arm, Patient Position: Sitting) Pulse 64 Ht 182.9 cm (6') Wt 100.7 kg (222 lb) BMI 30.11 kg/m?? NAD No JVD/HJR Chest clear Cor RR, no murmur Abd benign Ext no edema Assessment and Plan: Stable angina. 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 Continue medical management as is unless symptoms worsen Edema- can use furosemide 20 mg and KCL 10 meq PRN swelling- script sent in BP controlled Lipids- no recent labs but has been excellent in the past- continue high dose statin Follow up 6 months- sooner if symptoms change documented in this encounter Plan of Treatment Upcoming Encounters Date Type Specialty Care Team Description 03/25/2022 Anesthesia Event Surgery Catrachita Baez MD [facility] ANESTHESIOLOGY [address] (Wo rk) 12/15/2022 Office Visit Cardiology Damián Hart MD [facility] [place], [place] [address] (Wo rk) 03/25/2050 Hospital Encounter Surgery Citlalli Richardson MD Vocal cord paralysis [facility] OTOLARYNGOLOGY 0375 (Wo rk) documented as of this encounter Visit Diagnoses Diagnosis Essential hypertension Unspecified essential hypertension Hyperlipidemia, unspecified hyperlipidem ia type ASCVD (arteriosclerotic cardiovascular d isease) Unspecified cardiovascular disease Pedal edema Edema Vocal cord paralysis Paralysis of vocal cords or larynx, unsp ecified documented in this encounter Care Teams Director Life Sciences Relationship Specialty Start Date End Date Vladimir Muñoz DO PCP - General Family Medicine 01/19/18 [address] [place], [place] [id number] documented as of this encounter
--- OUTSIDE RECORDS SUMMARY | 2022-08-05 09:06 | XMS_ITS | Encounter Summary ---
:1955 Author Organization [facility] [place] [address] Care Team Providers Name Role Phone Vladimir Muñoz DO Primary Care Provider Encounter Details Date Type Department Care Team Description 03/26/2021 [facility] [address] [place] [address] [place] [address] [place] [address] (Wo rk) Social History Tobacco [...] this encounter Miscellaneous Notes Telephone Encounter - Byron Sheryl R - 03/26/2021 9:18 AM EDT Refill for: Coreg 25 mg Twice daily Wants to switch to a 90 day supply [facility] Has about one week left. Patient is expecting a call back @ [phone] only if there are questions or problems. documented in this encounter Plan of Treatment Upcoming Encounters Date Type Specialty Care Team Description 03/25/2022 Anesthesia Event Surgery Catrachita Baez MD [facility] ANESTHESIOLOGY [place], [place] [address] (Wo rk) 12/15/2022 Office Visit Cardiology Damián Hart MD [facility] [place], [place] [address] (Wo rk) 03/25/2050 Hospital Encounter Surgery Citlalli Richardson MD Vocal cord paralysis [facility] OTOLARYNGOLOGY [place], [place] [address] (Wo rk) documented as of this encounter Visit Diagnoses Diagnosis Essential hypertension Unspecified essential hypertension Vocal cord paralysis Paralysis of vocal cords or larynx, unsp ecified documented in this encounter Care Teams Administrative Library Assistant Relationship Specialty Start Date End Date Vladimir Muñoz DO PCP - General Family Medicine 01/19/18 [address] [place] [address] documented as of this encounter
--- OUTSIDE RECORDS SUMMARY | 2022-08-05 09:06 | XMS_ITS | Encounter Summary ---
:1955 Author Organization [facility] [place] [address] Care Team Providers Name Role Phone ToniVladimir DO Primary Care Provider Reason for Visit Reason Onset Date Comments Medication Refill 02/13/2020 Encounter Details Date Type Department Care Team Description 02/13/2020 Refill Cardiology at [facility] Damián Hart MD Medication Refill [address] [place] [address] [place] [address] (Wo rk) Social History Tobacco [...] 03/25/2022 Anesthesia Event Surgery Catrachita Baez MD [facility] [address] ANESTHESIOLOGY [place], [place] [address] (Wo rk) 12/15/2022 Office Visit Cardiology Damián Hart MD [facility] [place], [place] [address] (Wo rk) 03/25/2050 Hospital Encounter Surgery Citlalli Richardson MD Vocal cord paralysis [facility] OTOLARYNGOLOGY [place], [place] [address] (Wo rk) documented as of this encounter Visit Diagnoses Diagnosis ASCVD (arteriosclerotic cardiovascular d isease) Unspecified cardiovascular disease Vocal cord paralysis Paralysis of vocal cords or larynx, unsp ecified documented in this encounter Care Teams Needle Molder Relationship Specialty Start Date End Date Vladimir Muñoz DO PCP - General Family Medicine 01/19/18 [address] [place] [address] documented as of this encounter
--- OUTSIDE RECORDS SUMMARY | 2022-08-05 09:06 | XMS_ITS | Encounter Summary ---
:1955 Author Organization [facility] [place] [address] Care Team Providers Name Role Phone Vladimir Muñoz DO Primary Care Provider Reason for Visit Reason Onset Date Comments Medication Refill 05/28/2020 Encounter Details Date Type Department Care Team Description 05/21/2020 Refill Cardiology at [facility] Damián Hart MD Medication Refill [address] [place] [place] [address] [place] [address] (Wo rk) Social History Tobacco [...] this encounter Miscellaneous Notes Telephone Encounter - Kenroy Valdes RN - 05/21/2020 11:56 AM EDT Called patient and let him know, script being sent in. Telephone Encounter - Kenroy Valdes RN - 05/21/2020 11:31 AM EDT Patient called to let us know some BP's he has recently had done. He went to be tested for Covid-19 (no symptoms) and he said that they checked his BP and it was 147/95 on right arm and 158/102 on leftarm. He also had his BP checked at [facility] on Thursday and it was 140/81 and pulse of 76. He reports he feels better since stopping his lisinopril and Plavix. He also reports that he no longer has that feeling of something in my ear since stopping lisinopril. documented in this encounter Plan of Treatment Upcoming Encounters Date Type Specialty Care Team Description 03/25/2022 Anesthesia Event Surgery Catrachita Baez MD [facility] ANESTHESIOLOGY [place], [place] [address] (Wo rk) 12/15/2022 Office Visit Cardiology Damián Hart MD [facility] [place], [place] [address] (Wo rk) 03/25/2050 Hospital Encounter Surgery Citlalli Richardson MD Vocal cord paralysis [facility] OTOLARYNGOLOGY [place], [place] [address] (Wo rk) documented as of this encounter Visit Diagnoses Diagnosis Essential hypertension Unspecified essential hypertension Vocal cord paralysis Paralysis of vocal cords or larynx, unsp ecified documented in this encounter Care Teams Lead Mechanic Relationship Specialty Start Date End Date Vladimir Muñoz DO PCP - General Family Medicine 01/19/18 [address] [place] [address] documented as of this encounter
--- OUTSIDE RECORDS SUMMARY | 2022-08-05 09:06 | XMS_ITS | Encounter Summary ---
:1955 Author Organization [facility] [place] [address] Care Team Providers Name Role Phone ToniVladimir DO Primary Care Provider Reason for Visit Reason Onset Date Comments Medication Refill 03/27/2020 Encounter Details Date Type Department Care Team Description 03/27/2020 Refill Cardiology at [facility] Damián Hart MD Medication Refill [address] [place] [address] [place] [address] (Wo rk) Social History Tobacco [...] 03/25/2022 Anesthesia Event Surgery Catrachita Baez MD [facility] ER DR ANESTHESIOLOGY [place], [place] [address] (Wo rk) 12/15/2022 Office Visit Cardiology Damián Hart MD [facility] er [place], [place] [address] (Wo rk) 03/25/2050 Hospital Encounter Surgery Citlalli iRchardson MD Vocal cord paralysis [facility] OTOLARYNGOLOGY [place], [place] [address] (Wo rk) documented as of this encounter Visit Diagnoses Diagnosis Essential hypertension Unspecified essential hypertension Vocal cord paralysis Paralysis of vocal cords or larynx, unsp ecified documented in this encounter Care Teams Ruling Technician Relationship Specialty Start Date End Date Vladimir Muñoz DO PCP - General Family Medicine 01/19/18 [address] [place] [address] documented as of this encounter
--- OUTSIDE RECORDS SUMMARY | 2022-08-05 09:06 | XMS_ITS | Encounter Summary ---
:1955 Author Organization [facility] [place] [address] Care Team Providers Name Role Phone ToniVladimir DO Primary Care Provider Reason for Visit Reason Onset Date Comments Medication Refill 04/03/2020 Encounter Details Date Type Department Care Team Description 04/03/2020 Refill Cardiology at [facility] Damián Hart MD Medication Refill [address] [place] [address] [place] [address] (Wo rk) Social History Tobacco [...] 03/25/2022 Anesthesia Event Surgery Catrachita Baez MD [facility] ER DR ANESTHESIOLOGY [place], [place] [address] (Wo rk) 12/15/2022 Office Visit Cardiology Damián Hart MD [facility] er [place], [place] 0[address] (Wo rk) 03/25/2050 Hospital Encounter Surgery Citlalli Richardson MD Vocal cord paralysis [facility] OTOLARYNGOLOGY [place], [place] [address] (Wo rk) documented as of this encounter Visit Diagnoses Diagnosis Essential hypertension Unspecified essential hypertension Vocal cord paralysis Paralysis of vocal cords or larynx, unsp ecified documented in this encounter Care Teams Seo Coordinator Relationship Specialty Start Date End Date Vladimir Muñoz DO PCP - General Family Medicine 01/19/18 [address] [place] [address] documented as of this encounter
--- OUTSIDE RECORDS SUMMARY | 2022-08-05 09:06 | XMS_ITS | Encounter Summary ---
:1955 Author Organization [facility] [address] Care Team Providers Name Role Phone ToniVladimir DO Primary Care Provider Reason for Visit Reason Comments Follow-up 3 months Coronary Artery Disease Encounter Details Date Type Department Care Team Description 07/21/2018 Office Visit Cardiology at [facility] ASCVD (arter iosclerotic cardiovascular disease); Sami Hanks MD Essential hypertension; [address] [facility] [address] [address] [phone] Social History Tobacco Use Types Packs/Day Years [...] Sign Reading Time Taken Comments Blood Pressure 110/64 07/21/2018 2:21 PM EDT Pulse 76 07/21/2018 2:21 PM EDT Temperature - - Respiratory Rate 12 07/21/2018 2:21 PM EDT Oxygen Saturation - - Inhaled Oxygen Concentration - - Weight 96.6 kg (213 lb) 07/21/2018 2:21 PM EDT Height 182.9 cm (6') 07/21/2018 2:21 PM EDT Body Mass Index 28.89 07/21/2018 2:21 PM EDT documented in this encounter Progress Notes Benedicto Oconnor Jr., MD - 07/21/2018 2:20 PM EDT Subjective: Patient ID: Burton Mcnair Jr. is a 63 y.o. male. Chief Complaint Patient presents with ??? Follow-up 3 months ??? Coronary Artery Disease HPI He has had dyspnea with walking up hill as before but none walking on the flat. It relieves quickly with rest or NTG. If he takes a NTG before activity he has no dyspnea. He has had edema in his legs after longer trips which resolves in a day with leg elevation when sitting. He denies dizziness, palpitations, PND or orthopnea. Review of Systems no bruising or bleeding, blood sugar well controlled, denies other issues No Known Allergies Current [...] at ST III Objective: Physical Exam BP 110/64 Pulse 76 Resp 12 Ht 182.9 cm (6') Wt 96.6 kg (213 lb) BMI 28.89 kg/m2 NAD No JVD/HJR Chest clear Cor RR, no murmur Abd benign Ext trace edema Assessment and Plan: Dyspnea is his anginal equivalent- from occluded CCX, distal vessel fed by collaterals so some variability in flow based on degree of relaxation of the collaterals. Continue with PRN NTG given the longacting nitrates caused headaches and his medications are otherwise at the maximum. Low risk for TN/ac stebbins worsening given the last MIBI. Encouraged to keep up activity BP controlled Edema a side effect of meds- worse with prolonged sitting or increased sodium intake- reviewed Follow up 6 months documented in this encounter Plan of Treatment Upcoming Encounters Date Type Specialty Care Team Description 03/25/2022 Anesthesia Event Surgery Catrachita Baez MD [facility] ANESTHESIOLOGY [place], [place] [address] (Wo rk) 12/15/2022 Office Visit Cardiology Damián Hart MD [facility] [place], [place] 0[address] ( rk) 03/25/2050 Hospital Encounter Surgery Citlalli Richardson MD Vocal cord paralysis [facility] OTOLARYNGOLOGY [place], [place] [address] ( rk) documented as of this encounter Visit Diagnoses Diagnosis ASCVD (arteriosclerotic cardiovascular d isease) Unspecified cardiovascular disease Essential hypertension Unspecified essential hypertension Pedal edema Edema Vocal cord paralysis Paralysis of vocal cords or larynx, unsp ecified documented in this encounter Care Teams Roller Die Cutting Machine Operator Relationship Specialty Start Date End Date Vladimir Muñoz DO PCP - General Family Medicine 01/19/18 [address] [place] [address] documented as of this encounter
--- OUTSIDE RECORDS SUMMARY | 2022-08-05 09:06 | XMS_ITS | Encounter Summary ---
:1955 [place] [address] Care Team Providers Name Role Phone Vladimir Muñoz DO Primary Care Provider Encounter Details Date Type Department Care Team Description 03/05/2020 Telephone Cardiology at [facility] Damián Hart MD [address] [place] [address] [place] [address] (Wo rk) Social History Tobacco [...] Telephone Encounter - Kenroy Valdes RN - 03/05/2020 11:30 AM EDT Called and spoke to patient, let him know that Dr. Hart said he could trial going off of it and see how he does and have him let us know how he does. Patient will stop this medication and let us knowhow he does. Telephone Encounter - Kenroy Valdes RN - 03/05/2020 11:01 AM EDT Spoke to patient, he is taking his Ranexa as ordered, 500 mg 2 times daily. He went to get a refill and it was going to cost him $650. He reports he is feeling well, denies chest pain. Says he has beenwalking 3 miles, including [place] without chest pain. Last summer he tried the isosorbide last summer,but did not tolerate it due to headaches. He is wondering if there are any other alternatives, or if he needs to continue this medication at all. Telephone Encounter - Courtney Jordan - 03/05/2020 9:31 AM EDT Patient called asking about the Medication he is taking Renexa 500 mg he has been taking 1/2 tab daily. He went to get a refill and the cost was @ $650.00. he is questioning if he needs this medication, or is there something less expensive he could be taking? # [phone] documented in this encounter Plan of Treatment Upcoming Encounters Date Type Specialty Care Team Description 03/25/2022 Anesthesia Event Surgery Catrachita Baez MD [facility] ANESTHESIOLOGY [place], [place] [address] (Wo rk) 12/15/2022 Office Visit Cardiology Damián Hart MD [facility] [address] [place] [address] (Wo rk) 03/25/2050 Hospital Encounter Surgery Citlalli Richardson MD Vocal cord paralysis [facility] OTOLARYNGOLOGY [place], [place] [address] (Wo rk) documented as of this encounter Visit Diagnoses Not on filedocumented in this encounter Care Teams Technology Administrator Relationship Specialty Start Date End Date Vladimir Muñoz DO PCP - General Family Medicine 01/19/18 [address] [place] [address] documented as of this encounter
--- OUTSIDE RECORDS SUMMARY | 2022-08-05 09:06 | XMS_ITS | Encounter Summary ---
:1955 Author Organization [facility] [place] [address] Care Team Providers Name Role Phone Vladimir Muñoz DO Primary Care Provider Encounter Details Date Type Department Care Team Description 04/01/2018 Telephone Cardiology at [facility] Benedicto Oconnor Jr., MD [address] [place] [address] [place] [address] [place] [address] [phone] (Wo rk) Social History Tobacco Use Types [...] Telephone Encounter - Kenroy Valdes RN - 04/02/2018 9:54 AM EDT Patient called this morning to report that he took a Nitro before going for a walk, and it worked well. Telephone Encounter - Kenroy Valdes RN - 04/01/2018 4:52 PM EDT Called patient, he reports that he has been SOB with exertion and burning in the back of his throat.. He went for a walk today and had to turn around after about 300 yards. He does report that he was lifting several boxes today that weighed about 15 pounds each. He feels his episodes of SOB have slowly been getting progressively worse. Discussed with Dr. Oconnor, he said to have patient take one Nitrobefore exercise. Called patient and let him know (left message on voicemail). Telephone Encounter - Sheryl Matthews - 04/01/2018 4:37 PM EDT Patient called because he has been having some SOB when exerting/ walking up a slight incline etc. He says it usually goes away quickly. Please call him back at [phone]. documented in this encounter Plan of Treatment Upcoming Encounters Date Type Specialty Care Team Description 03/25/2022 Anesthesia Event Surgery Catrachita Baez MD [facility] ANESTHESIOLOGY [place], [place] [address] (Wo rk) 12/15/2022 Office Visit Cardiology Damián Hart MD [facility] [address] [place] [address] (Wo rk) 03/25/2050 Hospital Encounter Surgery Citlalli Richardson MD Vocal cord paralysis [facility] OTOLARYNGOLOGY [place], [place] [address] (Wo rk) documented as of this encounter Visit Diagnoses Not on filedocumented in this encounter Care Teams Professor Of Medicine Relationship Specialty Start Date End Date Vladimir Muñoz, PCP - General Family Medicine 01/19/18 [address] [place] [address] documented as of this encounter
--- OUTSIDE RECORDS SUMMARY | 2022-08-05 09:06 | XMS_ITS | Encounter Summary ---
:1955 Author Organization [facility] [place] [address] Care Team Providers Name Role Phone Vladimir Muñoz DO Primary Care Provider Encounter Details Date Type Department Care Team Description 02/14/2019 Telephone Cardiology at [facility] Benedicto Oconnor Jr., MD [address] [place] [address] [place] [address] [place] [address] [phone] (Wo rk) Social History Tobacco Use Types [...] Telephone Encounter - Shania Montenegro RN - 02/14/2019 3:16 PM EDT Tried to send a new Rx. For the Brand name and the data base in the meds and orders would not allow to only send brand so the pharmacist took a verbal order for it. Telephone Encounter - Shania Montenegro RN - 02/14/2019 2:51 PM EDT We received a letter from the insurance company that his Ranolazine is not on their formulary. I called to get an exception and they said that the generic is not on the formulary but the brand name is and that I can call the pharmacy to let them know to get brand name and he should be all set and his cost will be less then generic. I let [place] know. And Baljinder know documented in this encounter Plan of Treatment Upcoming Encounters Date Type Specialty Care Team Description 03/25/2022 Anesthesia Event Surgery Catrachita Baez MD [facility] ANESTHESIOLOGY [place], [place] [address] (Wo rk) 12/15/2022 Office Visit Cardiology Damián Hart MD [facility] [place], [place] [address] (Wo rk) 03/25/2050 Hospital Encounter Surgery Citlalli Richardson MD Vocal cord paralysis [facility] OTOLARYNGOLOGY [place], [place] [address] (Wo rk) documented as of this encounter Visit Diagnoses Not on filedocumented in this encounter Care Teams Inventory Control Supervisor Relationship Specialty Start Date End Date Vladimir Muñoz DO PCP - General Family Medicine 01/19/18 [address] [place] [address] documented as of this encounter
--- OUTSIDE RECORDS SUMMARY | 2022-08-05 09:06 | XMS_ITS | Encounter Summary ---
:1955 Author Organization [facility] [address] Care Team Providers Name Role Phone Vladimir Muñoz DO Primary Care Provider Encounter Details Date Type Department Care Team Description 01/13/2022 Telephone [facility]iac [facility] [place] [address] Social History Tobacco Use Types Packs/Day [...] this encounter Miscellaneous Notes Telephone Encounter - Marla Gomez - 01/13/2022 3:54 PM EST Left message for patient to schedule an appointment with Dr. Antonio this Thursday afternoon at 4pmor next per Dr. Antonio. Consult from laboratory manager documented in this encounter Plan of Treatment Upcoming Encounters Date Type Specialty Care Team Description 03/25/2022 Anesthesia Event Surgery Catrachita Baez MD [facility] ANESTHESIOLOGY [place], [place] [address] (Wo rk) 12/15/2022 Office Visit Cardiology Damián Hart MD [facility] [place], [place] [address] (Wo rk) 03/25/2050 Hospital Encounter Surgery Citlalli Richardson MD Vocal cord paralysis [facility] OTOLARYNGOLOGY [place], [place] [address] (Wo rk) documented as of this encounter Visit Diagnoses Not on filedocumented in this encounter Care Teams Window Installation Subcontractor Relationship Specialty Start Date End Date Vladimir Muñoz DO PCP - General Family Medicine 01/19/18 [address] [place] [address] documented as of this encounter
--- OUTSIDE RECORDS SUMMARY | 2022-08-05 09:06 | XMS_ITS | Encounter Summary ---
:1955 Author Organization [facility] [place] [address] Care Team Providers Name Role Phone Vladimir Muñoz DO Primary Care Provider Encounter Details Date Type Department Care Team Description 05/07/2020 Telephone Cardiology at [facility] Damián Hart MD [address] [place] [address] [place] [address] (Wo rk) Social History Tobacco [...] Telephone Encounter - Keke Murcia RN - 05/10/2020 3:47 PM EDT Call back to Burton. His tongue swelling has resolved. He has not had lisinopril for 4 days now. We discussed the observable effects of angioedema. He says that his ER doctor explained this well. Note: he reported having ear buzzing or tingling deep inside and similar sensations in the groinjust before his tongue swelled. Those symptoms are not present today. Plan: instructed Burton to check home BP. He will look for his 's BP cuff that has been put away. If it is not found, he may buy a new one. He will check his BP twice a week. He will call if the systolic is greater than 140 and diastolic greater than 80. If he has headaches, dizziness, or other troublesome symptoms, he will call. Next clinic appointment is in August - this can be moved up if hypertension necessitates it. Cc Dr. Hart Telephone Encounter - Sheryl Matthews - 05/07/2020 9:24 AM EDT Patient called because he was in the ER yesterday. Records will be faxed. His tongue was swollen and the doctor determined it was not a bee sting or anything like that. The doctor took him off lisinopril. Please call the patient back at [phone]. documented in this encounter Plan of Treatment Upcoming Encounters Date Type Specialty Care Team Description 03/25/2022 Anesthesia Event Surgery Catrachita Baez MD [facility] ANESTHESIOLOGY [place], [place] [address] (Wo rk) 12/15/2022 Office Visit Cardiology Damián Hart MD [facility] [address] [place] [address] (Wo rk) 03/25/2050 Hospital Encounter Surgery Citlalli Richardson MD Vocal cord paralysis [facility] OTOLARYNGOLOGY [place], [place] [address] (Jasvir rk) documented as of this encounter Visit Diagnoses Not on filedocumented in this encounter Care Teams Circus Agent Relationship Specialty Start Date End Date Vladimir Muñoz, PCP - General Family Medicine 01/19/18 [address] [place] [address] documented as of this encounter
--- OUTSIDE RECORDS SUMMARY | 2022-08-05 09:06 | XMS_ITS | Encounter Summary ---
:1955 Author Organization [facility] [place] [address] Care Team Providers Name Role Phone ToniVladimir DO Primary Care Provider Encounter Details Date Type Department Care Team Description 08/15/2020 External Results Cardiology at [facility] Keke Murcia, RN [address] [facility] [place] [address] Social History Tobacco Use [...] 03/25/2022 Anesthesia Event Surgery Catrachita Baez MD [facility] ANESTHESIOLOGY [place], [place] [address] (Wo rk) 12/15/2022 Office Visit Cardiology Damián Hart MD [facility] [address] [place] [address] (Wo rk) 03/25/2050 Hospital Encounter Surgery Citlalli Richardson MD Vocal cord paralysis [facility] ER OTOLARYNGOLOGY [place], [place] [address] (Wo rk) documented as of this encounter Procedures Procedure Name Priority Date/Time Associated Diagnosis Comme nts EXTERNAL LIPID LAB Routine 07/25/2020 Results f or this RESULTS PANEL procedure are in the results section . HEMOGLOBIN A1C Routine 07/25/2020 Results for t his procedure are i n the results section . documented in this encounter Results Hemoglobin A1c (07/25/2020) athologist Signature Hemoglobin A1C 7.8 Est Avg Gluc 178 BUN/Cre Ratio 24.6 Specimen (Source) Anatomical Location Collection Method / Collectio n Time Received Time / Laterality Volume Blood specimen 07/25/2020 (specimen) Historical Provider CHEMISTRY ORDERABLES Lipid External Results (07/25/2020) athologist Signature Chol, Total 161 HDL 45 LDL Cholesterol 54 Triglycerides 310 Specimen (Source) Anatomical Location Collection Method / Collectio n Time Received Time / Laterality Volume 07/25/2020 Historical Provider POINT OF CARE TEST ORDERABLE S documented in this encounter Visit Diagnoses Not on filedocumented in this encounter Care Teams Director Of Manufacturing Relationship Specialty Start Date End Date Vladimir Muñoz DO PCP - General Family Medicine 01/19/18 [address] [place] [address] documented as of this encounter
--- OUTSIDE RECORDS SUMMARY | 2022-08-05 09:06 | XMS_ITS | Encounter Summary ---
:1955 Author Organization [facility] [place] [address] Care Team Providers Name Role Phone ToniVladimir mullins Rohan LOJA Primary Care Provider Reason for Visit Reason Comments Medication Refill Encounter Details Date Type Department Care Team Description 11/29/2018 Refill Cardiology at [facility] Benedicto Oconnor Jr., MD Medication Refill [address] [facility] [address] [place] [address] A [phone] [place], [place] [address] (Wo rk) Social History [...] Catrachita Baez MD [facility] ANESTHESIOLOGY [place], [place] [address] (Wo rk) 12/15/2022 Office Visit Cardiology Damián Hart MD [facility] er [place], [place] 0[address] (Wo rk) 03/25/2050 Hospital Encounter Surgery Citlalli Richardson MD Vocal cord paralysis [facility] OTOLARYNGOLOGY [place], [place] [address] (Wo rk) documented as of this encounter Visit Diagnoses Diagnosis ASCVD (arteriosclerotic cardiovascular d isease) Unspecified cardiovascular disease Vocal cord paralysis Paralysis of vocal cords or larynx, unsp ecified documented in this encounter Care Teams Auto Porter Relationship Specialty Start Date End Date Vladimir Muñoz DO PCP - General Family Medicine 01/19/18 [address] [place] [address] documented as of this encounter
--- OUTSIDE RECORDS SUMMARY | 2022-08-05 09:06 | XMS_ITS | Encounter Summary ---
:1955 Author Organization [facility] [place] [address] Care Team Providers Name Role Phone Vladimir Muñoz DO Primary Care Provider Reason for Visit Reason Onset Date Comments Hypertension 06/18/2020 Encounter Details Date Type Department Care Team Description 06/18/2020 Telephone Cardiology at [facility] Damián Hart MD Hypertension [address] [facility] [place] [address] [place] [address] [phone] (Wo rk) Social History Tobacco Use Types [...] Telephone Encounter - Keke Murcia RN - 06/25/2020 2:59 PM EDTSummary: blood pressure recordings from home list CoReg was increased to 1 + 1/2 pills (18.75 mg) on June 18 at an ER encounter. Baljinder called in BP from home Jun 18 152/91 Jun 4 143/86 Jun 5 149/85 Jun 6 145/91 Jun 7 146/90 Jun 8 159/92 Jun 9 159/92 Jun 10 141/91 Diastolic pressure remains high. Telephone Encounter - Sheryl Matthews - 06/25/2020 1:43 PM EDT Patient called to report his blood pressure readings for the past week. Please call him back at [phone] Telephone Encounter - Kenroy Vlades RN - 06/18/2020 11:29 AM EDT Called patient, per his ER note, his Coreg dose was increased to 18.75 mg by mouth twice a day. Patient agrees to monitor resting BP once a day and call us on Thursday with BP numbers. ER notes scanned. Telephone Encounter - Sheryl Matthews - 06/18/2020 10:15 AM EDT Patient called because he was in the ED at [facility] yesterday for high blood pressure. 165/105 Record to be faxed. He said it keeps going up. Please call him back at [phone]. documented in this encounter Plan of Treatment Upcoming Encounters Date Type Specialty Care Team Description 03/25/2022 Anesthesia Event Surgery Catrachita Baez MD [facility] ANESTHESIOLOGY [place], [place] [address] (Wo rk) 12/15/2022 Office Visit Cardiology Damián Hart MD [facility] [address] [place] [address] (Wo rk) 03/25/2050 Hospital Encounter Surgery Citlalli Richardson MD Vocal cord paralysis [facility] ER OTOLARYNGOLOGY [place], [place] [address] (Wo rk) documented as of this encounter Visit Diagnoses Diagnosis Essential hypertension Unspecified essential hypertension Vocal cord paralysis Paralysis of vocal cords or larynx, unsp ecified documented in this encounter Care Teams Certified Diabetes Educator Relationship Specialty Start Date End Date Vladimir Muñoz DO PCP - General Family Medicine 01/19/18 [address] [place] [address] documented as of this encounter
--- OUTSIDE RECORDS SUMMARY | 2022-08-05 09:06 | XMS_ITS | Encounter Summary ---
:1955 [place] [address] Care Team Providers Name Role Phone Vladimir Muñoz DO Primary Care Provider Encounter Details Date Type Department Care Team Description 07/04/2019 Telephone Cardiology at [facility] Damián Hart MD [address] [place] [address] [place] [address] [place] [address] (Wo rk) Social History Tobacco [...] Telephone Encounter - Kenroy Valdes RN - 07/04/2019 9:57 AM EDT Called patient and let him know, new script sent for Ranexa 500 mg by mouth twice a day to [facility] as patient requested. Telephone Encounter - Kenroy Valdes RN - 07/04/2019 9:14 AM EDT Spoke to patient, he reports that he took his first dose of Isosorbide yesterday morning and by 4 pmhad developed the same headache I used to get when I took this medication before. He has not takenthis mornings dose yet, he was wondering if he should go back on his Ranexa? Telephone Encounter - Courtney Joradn - 07/04/2019 8:22 AM EDT Patient called and started taking Isosorbide 30 mg. He took it isn the past and caused headaches. Itis doing the same. # [phone] documented in this encounter Plan of Treatment Upcoming Encounters Date Type Specialty Care Team Description 03/25/2022 Anesthesia Event Surgery Catrachita Baez MD [facility] ANESTHESIOLOGY [place], [place] [address] (Wo rk) 12/15/2022 Office Visit Cardiology Damián Hart MD [facility] [place], [place] [address] (Wo rk) 03/25/2050 Hospital Encounter Surgery Citlalli Richardson MD Vocal cord paralysis [facility] OTOLARYNGOLOGY [place], [place] [address] (Wo rk) documented as of this encounter Visit Diagnoses Diagnosis ASCVD (arteriosclerotic cardiovascular d isease) Unspecified cardiovascular disease Vocal cord paralysis Paralysis of vocal cords or larynx, unsp ecified documented in this encounter Care Teams Student Relationship Specialty Start Date End Date Vladimir Muñoz, PCP - General Family Medicine 01/19/18 [address] [place] [id number] documented as of this encounter
--- OUTSIDE RECORDS SUMMARY | 2022-08-05 09:06 | XMS_ITS | Encounter Summary ---
:1955 Author Organization [facility] [place] [address] Care Team Providers Name Role Phone Vladimir Muñoz DO Primary Care Provider Reason for Visit Reason Comments Follow-up 6 months Coronary Artery Disease Encounter Details Date Type Department Care Team Description 01/24/2019 Office Visit Cardiology at [facility] ASCVD (arter iosclerotic cardiovascular disease); Sami Hanks MD Essential hypertension [address] [place] [address] [phone] Social History Tobacco Use Types Packs/Day Years [...] Sign Reading Time Taken Comments Blood Pressure 122/70 01/24/2019 2:52 PM EDT Pulse 80 01/24/2019 2:52 PM EDT Temperature - - Respiratory Rate 12 01/24/2019 2:52 PM EDT Oxygen Saturation - - Inhaled Oxygen Concentration - - Weight 97.5 kg (215 lb) 01/24/2019 2:52 PM EDT Height 182.9 cm (6') 01/24/2019 2:52 PM EDT Body Mass Index 29.16 01/24/2019 2:52 PM EDT documented in this encounter Progress Notes Benedicto Oconnor Jr., MD - 01/24/2019 2:40 PM EDT Subjective: Patient ID: Burton Mcnair Jr. is a 63 y.o. male. Chief Complaint Patient presents with ??? Follow-up 6 months ??? Coronary Artery Disease HPI He has been more aware of his dyspnea and throat tightness on exertion and has not been pushing himself as much. He tried taking NTG before exertion and that helped, but he didn't want to do that all the time. He has not had worsening dyspnea and denies palpitations, dizziness or chest pain. He has edema after being on his feet all day which resolves over night. Review of Systems no bruising or bleeding, has not been checking blood sugar regularly, denies otherissues No Known Allergies Current Outpatient Medications Medication Sig Dispense Refill ??? aspirin 81 mg Tablet, Delayed Release [...] for chest pain- 25 tablet 12 ??? ranolazine (RANEXA) 1,000 mg Tablet Sustained Release 12 hr Take 1 tablet by mouth 2 times daily. 60 tablet 11 ??? atorvastatin (LIPITOR) 80 mg Tablet Take [...] tablet by mouth daily 90 tablet 3 No current facility-administered medications for this visit. [...] at ST III Objective: Physical Exam BP 122/70 Pulse 80 Resp 12 Ht 182.9 cm (6') Wt 97.5 kg (215 lb) BMI 29.16 kg/m?? NAD No JVD/HJR Chest clear Cor RR, no murmur Abd benign Ext no edema Assessment and Plan: It is hard to tell if he is any worse- he has not been trying to do more. I asked him to try pushinghimself and to use NTG as necessary- if he can't do when he wants to then we will need to do anotherstress test for some objective assessment BP controlled Phone check in 1 month- follow up depends on how he is doing documented in this encounter Plan of Treatment Upcoming Encounters Date Type Specialty Care Team Description 03/25/2022 Anesthesia Event Surgery Catrachita Baez MD [facility] [address] ANESTHESIOLOGY [place] [address] (Wo rk) 12/15/2022 Office Visit Cardiology Damián Hart MD [facility] [place], [place] [address] ( rk) 03/25/2050 Hospital Encounter Surgery Citlalli Richardson MD Vocal cord paralysis [facility] OTOLARYNGOLOGY [place], [place] [address] (Wo rk) documented as of this encounter Visit Diagnoses Diagnosis ASCVD (arteriosclerotic cardiovascular d isease) Unspecified cardiovascular disease Essential hypertension Unspecified essential hypertension Vocal cord paralysis Paralysis of vocal cords or larynx, unsp ecified documented in this encounter Care Teams Hoister Relationship Specialty Start Date End Date Vladimir Muñoz DO PCP - General Family Medicine 01/19/18 [address] [place] [address] documented as of this encounter
--- OUTSIDE RECORDS SUMMARY | 2022-08-05 09:06 | XMS_ITS | Encounter Summary ---
:1955 Author Organization [facility] [place] [address] Care Team Providers Name Role Phone ToniVladimir DO Primary Care Provider Encounter Details Date Type Department Care Team Description 04/19/2018 External Results Cardiology at [facility] Shania Montenegro RN [address] [place] [address] Social History Tobacco Use [...] 03/25/2022 Anesthesia Event Surgery Catrachita Baez MD [facility] ANESTHESIOLOGY [place], [place] [address] (Wo rk) 12/15/2022 Office Visit Cardiology Damián Hart MD [facility] [address] [place] [address] (Wo rk) 03/25/2050 Hospital Encounter Surgery Citlalli Richardson MD Vocal cord paralysis [facility] ER [place]ARYNGOLOGY [place], [place] [address] (Wo rk) documented as of this encounter Procedures Procedure Name Priority Date/Time Associated Diagnosis Comme nts EXTERNAL LIPID LAB Routine 01/22/2018 Results f or this RESULTS PANEL procedure are in the results section . documented in this encounter Results Lipid External Results (01/22/2018) P athologist Signature Chol, Total 110 HDL 45 LDL Cholesterol 33 Triglycerides 161 Historical Provider POINT OF CARE TEST ORDERABLE S documented in this encounter Visit Diagnoses Not on filedocumented in this encounter Care Teams Geospatial Systems Integrator Relationship Specialty Start Date End Date Vladimir Muñoz DO PCP - General Family Medicine 01/19/18 [address] [place] [address] documented as of this encounter
--- OUTSIDE RECORDS SUMMARY | 2022-08-05 09:06 | XMS_ITS | Encounter Summary ---
:1955 Author Organization [facility] [place] [address] Care Team Providers Name Role Phone Vladimir Muñoz DO Primary Care Provider Encounter Details Date Type Department Care Team Description 02/02/2018 Telephone Cardiology at [facility] Benedicto Oconnor Jr., MD [address] [place] [address] [place] [address] [place] [address] [phone] (Wo rk) Social History Tobacco Use Types [...] Telephone Encounter - Kenroy Valdes RN - 02/02/2018 2:26 PM EDT Note being faxed to [facility]. Telephone Encounter - Benedicto Oconnor Jr., MD - 02/02/2018 12:40 PM EDT His last stent was in 2015- just had balloon angioplasty in 2016 He can hold Plavix for 1 week before colonoscopy and resume as soon after as possible Telephone Encounter - Shania Montenegro RN - 02/02/2018 11:45 AM EDT Received a note from Dr. Suarez via [facility]. He is going to have a colonoscopy and they need clearance and permission to stop Plavix. documented in this encounter Plan of Treatment Upcoming Encounters Date Type Specialty Care Team Description 03/25/2022 Anesthesia Event Surgery Catrachita Baez MD [facility] ANESTHESIOLOGY [place], [place] [address] (Wo rk) 12/15/2022 Office Visit Cardiology Damián Hart MD [facility] [place], [place] [address] (Wo rk) 03/25/2050 Hospital Encounter Surgery Citlalli Richardson MD Vocal cord paralysis [facility] OTOLARYNGOLOGY [place], [place] [address] (Wo rk) documented as of this encounter Visit Diagnoses Diagnosis ASCVD (arteriosclerotic cardiovascular d isease) Unspecified cardiovascular disease Vocal cord paralysis Paralysis of vocal cords or larynx, unsp ecified documented in this encounter Care Teams Workers Compensation Adjuster Relationship Specialty Start Date End Date Vladimir Muñoz DO PCP - General Family Medicine 01/19/18 [address] [place] [address] documented as of this encounter
--- OUTSIDE RECORDS SUMMARY | 2022-08-05 09:06 | XMS_ITS | Encounter Summary ---
:1955 [place] [address] Care Team Providers Name Role Phone Vladimir Muñoz DO Primary Care Provider Encounter Details Date Type Department Care Team Description 04/02/2021 Telephone Cardiology at [facility] [place], Damián Michelle MD [address] [place] [address] [place] [address] [place] [address] (Wo rk) Social History Tobacco [...] Telephone Encounter - Kenroy Valdes RN - 04/08/2021 2:03 PM EDT Spoke to Hannah again. She was wondering if Dr. Hart would sign off on this patient having surgery. Reminded her again that we have not seen patient since 08/20/20. Let her know I did discuss it with Dr. Hart and he said that Dr. Muñoz could sign off on the medical clearance. If he had any cardiac concerns to reach out to us. She then said she could let Dr. Muñoz know that Dr. Pickens does not see any concern with patient having surgery, I quickly corrected her and pointed out that Dr. Hart did not say that, he said that Dr. Muñoz could sign off on his clearance. Telephone Encounter - Kenroy Valdes RN - 04/08/2021 1:33 PM EDT Hannah from Dr. Muñoz's office called this morning. She said that Dr. Muñoz was wondering if Dr. Hart was going to sign off on this patient having Ortho surgery with Dr. Wyatt. His surgery istomorrow. He was last seen on 08/20/20. Telephone Encounter - Kenroy Valdes RN - 04/02/2021 3:51 PM EDT Spoke to Hannah at PCP office. Patient is scheduled to have surgery with Dr. Wyatt on 04/09. PCP was asking for guidance on his plavix, which was discontinued at his last office visit in 08/2020. Let them know that. He is seeing his PCP for clearance. Telephone Encounter - Sheryl Matthews - 04/02/2021 3:17 PM EDT Hannah called because Dr Wyatt reached out to their office about pre-op clearance for this patient. He will be having surgery on 04-09. Hannah is at ext [phone]. 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
--- OUTSIDE RECORDS SUMMARY | 2022-08-05 09:06 | XMS_ITS | Encounter Summary ---
:1955 Author Organization [facility] [place] [address] Care Team Providers Name Role Phone Vladimir Muñoz DO Primary Care Provider Encounter Details Date Type Department Care Team Description 04/17/2021 Telephone Cardiology at [facility] [place], Damián Michelle MD [address] [facility] [place] [address] [place] [address] (Wo rk) Social History Tobacco [...] Telephone Encounter - Kenroy Valdes RN - 04/17/2021 3:47 PM EDT Discussed with Dr. Hart, since he is having back surgery, he will need to be seen in office for clearance. Patient will be seen tomorrow by Dr. Brooks at 11:20. Called and spoke to patients letting her know. Called Charmaine at [facility] and let her know patient is being seen tomorrow. Telephone Encounter - Kenroy Valdes RN - 04/17/2021 2:54 PM EDT Left message with Charmaine at [facility] that we never received request for Cardiac clearance for this patient. PCP had requested guidance for his plavix, which patient is no longer on. Telephone Encounter - Sheryl Matthews - 04/17/2021 2:27 PM EDT Charmaine at [facility] called because patient is scheduled for back surgery on 04-23. They need cardiac clearance to proceed. She said that they had heard from the pcp but need cardiac clearance. Please call her back @ [phone] Telephone Encounter - Sheryl Matthews - 04/17/2021 2:27 PM EDT Charmaine at [facility] called to say she does know he is not on Plavix. She needs clearance from Dr Hart. Either a note stating that, an addendum to his last office note or he needs to be seen. Please call her back at [phone]. documented in this encounter Plan of Treatment Upcoming Encounters Date Type Specialty Care Team Description 03/25/2022 Anesthesia Event Surgery Catrachita Baez MD [facility] [address] ANESTHESIOLOGY [place], [place] [address] (Wo rk) 12/15/2022 Office Visit Cardiology Damián Hart MD [facility] er [place], [place] [address] (Wo rk) 03/25/2050 Hospital Encounter Surgery Citlalli Richardson MD Vocal cord paralysis [facility] ER OTOLARYNGOLOGY [place], [place] [address] (Wo rk) documented as of this encounter Visit Diagnoses Not on filedocumented in this encounter Care Teams Merchandise Processor Relationship Specialty Start Date End Date Vladimir Muñoz DO PCP - General Family Medicine 01/19/18 [address] [place] [address] documented as of this encounter
--- OUTSIDE RECORDS SUMMARY | 2022-08-05 09:06 | XMS_ITS | Encounter Summary ---
:1955 [place] [address] Care Team Providers Name Role Phone Vladimir Muñoz DO Primary Care Provider Encounter Details Date Type Department Care Team Description 04/18/2021 Office Visit Cardiology at [facility], Gabrielle Stafford MD Preoperative cardiovascular examination; [facility] ASCVD (arteriosclerotic card iovascular disease); [address] [place] [address] [place], [place] [phone] [address] (Work) [phone] Social History Tobacco Use Types Packs/Day Years [...] Sign Reading Time Taken Comments Blood Pressure 143/83 04/18/2021 11:24 AM EDT Pulse 87 04/18/2021 11:24 AM EDT Temperature - - Respiratory Rate - - Oxygen Saturation - - Inhaled Oxygen Concentration - - Weight 97.5 kg (215 lb) 04/18/2021 11:24 AM EDT Height 182.9 cm (6') 04/18/2021 11:24 AM EDT Body Mass Index 29.16 04/18/2021 11:24 AM EDT documented in this encounter Progress Notes Gabrielle Brooks MD - 04/18/2021 11:20 AM EDT CARDIOLOGY OUTPATIENT FOLLOW-UP NOTE PRIMARY CARE PROVIDER: Vladimir Muñoz, DO REFERRING PROVIDER: Vladimir Muñoz PROBLEM LIST: Patient Active Problem List Diagnosis ??? Acquired [...] 11/2017: MIBI no ischemia at ST III MEDICATIONS: Current Outpatient Medications Medication Sig Dispense Refill ??? atorvastatin (Lipitor) 80 mg Tablet take 1 tablet by mouth once daily 90 tablet 3 ??? carvediloL (Coreg) 25 mg Tablet Take 1 tablet by mouth 2 times daily (with meals). 180 tablet 3 ??? amLODIPine (Norvasc) 10 mg Tablet take [...] No current facility-administered medications for this visit. Subjective: Patient ID: Burton Mcnair Jr. is a 66 y.o. male. HPI This 66-year-old man presents for preoperative cardiovascular examination. He is scheduled to have surgery next week for a lumbar laminectomy, done for spinal stenosis. From the cardiac standpoint, he has had no symptoms or concerns since his last visit in August 2020. He describes good exercise tolerance without symptoms of chest discomfort or difficulty breathing. He has had no palpitations. He has not been dizzy or lightheaded. He denies near syncope or syncope He has had no medication changes recently, no interim hospitalizations His last cardiac testing included a nuclear stress test in 2017. He was able to complete a workload of 10 METS. This was a submaximal test but demonstrated no ischemia, normal ejection fraction of 62%,good exercise capacity His last cardiac catheterization was in 2016. This was notable for two-vessel coronary disease. There was a 60% mid RCA stenosis, 50% stenosis of the OM1 both of which were negative by FFR, not hemodynamically significant. A small circumflex has been chronically totally occluded Review of System Review of Systems Cardiovascular: Negative for chest pain, dyspnea on exertion, irregular heartbeat, leg swelling, near-syncope and palpitations. Respiratory: Negative for shortness of breath. Neurological: Weakness, poor coordination, discomfort of his lower extremities felt to be due to spinal stenosis All other systems reviewed and are negative. Family History: Family History Problem Relation Age of Onset ??? Colorectal Cancer Father ??? Breast Cancer Sister Social History: Social History Socioeconomic History ??? Marital status: [...] Social Determinants of Health Financial Resource Strain: ??? Difficulty of Paying Living Expenses: Food Insecurity: ??? Worried About Running Out of Food in the Last Year: ??? Ran Out of Food in the Last Year: Transportation Needs: ??? Lack of Transportation (Medical): ??? Lack of Transportation (Non-Medical): Physical Activity: ??? Days of Exercise per Week: ??? Minutes of Exercise per Session: Objective: Physical Exam Vitals and nursing note reviewed. Eyes: Pupils: Pupils are equal, round, and reactive to light. Neck: Vascular: No carotid bruit. Cardiovascular: Rate and Rhythm: Normal rate and regular rhythm. Heart sounds: Normal heart sounds. No murmur heard. No gallop. Pulmonary: Effort: Pulmonary effort is normal. Breath sounds: Normal breath sounds. Abdominal: Tenderness: There is no abdominal tenderness. Musculoskeletal: Cervical back: Normal range of motion. Comments: No peripheral edema, intact posterior tibial pulses Skin: General: Skin is warm and dry. Twelve-lead rhythm strip was performed. This showed sinus rhythm at 75, MN interval 0.20, early R wave progression. Compared to an EKG from November 2019 there has been no interval change Assessment and Plan: #1. Preoperative cardiovascular evaluation. Patient describes good and stable exercise tolerance without symptoms of exertional angina. I would consider him at below average risk for the proposed lumbar laminectomy. No additional preoperative cardiac testing is indicated #2. Atherosclerotic cardiovascular disease. As above, good exercise tolerance, no recent symptoms ofangina, stable electrocardiogram #3. Hypertension. Good blood pressure control on current medications. Thank you for the opportunity to participate in this patient's cardiovascular care. All questions were answered and I look forward to the next visit. documented in this encounter Plan of Treatment Upcoming Encounters Date Type Specialty Care Team Description 03/25/2022 Anesthesia Event Surgery Catrachita Baez MD [facility] ANESTHESIOLOGY [place], [place] [address] (Wo rk) 12/15/2022 Office Visit Cardiology Damián Hart MD [facility] er [place], [place] [address] (Wo rk) 03/25/2050 Hospital Encounter Surgery Citlalli Richardson MD Vocal cord paralysis [facility] ER OTOLARYNGOLOGY [place], [place] [address] (Wo rk) documented as of this encounter Procedures Procedure Name Priority Date/Time Associated Diagnosis Comme nts ECG SCAN 04/18/2021 12:00 AM Results for this EDT procedure are i n the results section . documented in this encounter Results SCAN DOC: ECG (04/18/2021 12:00 AM EDT) Narrative 04/18/2021 12:00 AM EDT This result has an attachment that is no t available. Ordered by an unspecified provider. Scanning Provider MEDIA MGR SCAN EXT ORDR/RSLT documented in this encounter Visit Diagnoses Diagnosis Preoperative cardiovascular examination Pre-operative cardiovascular examination ASCVD (arteriosclerotic cardiovascular d isease) Unspecified cardiovascular disease Hyperpiesia Unspecified essential hypertension Vocal cord paralysis Paralysis of vocal cords or larynx, unsp ecified documented in this encounter Care Teams Hot Bread Baker Relationship Specialty Start Date End Date Vladimir Muñoz DO PCP - General Family Medicine 01/19/18 [address] [place] [address] documented as of this encounter
--- OUTSIDE RECORDS SUMMARY | 2022-08-05 09:06 | XMS_ITS | Encounter Summary ---
:1955 [place] [address] Care Team Providers Name Role Phone Vladimir Muñoz DO Primary Care Provider Encounter Details Date Type Department Care Team Description 12/04/2021 Telephone Cardiology at [facility] Damián Hart MD [address] [place] [address] [place] [address] (Wo rk) Social History Tobacco [...] Telephone Encounter - Keke Murcia RN - 12/05/2021 3:47 PM EST Call back to He is pleased to be offered an appointment on January 01 at 4 pm with Telephone Encounter - Azra Man RN - 12/04/2021 3:29 PM EST Patient is reporting new symptoms from last visit. Per patient he had surgery over the summer, endedup with a post op infection and has noticed for a period time now that he is short of breath with activity. He states he can walk on a flat surface without difficulty but if there is an incline he becomes short of breath, lifting boxes will also trigger symptoms. Nurse reviewed went to seek immediate medical attention, patient verbalized understanding. Nurse will update MD Brooks. Telephone Encounter - Courtney Jordan - 12/04/2021 11:29 AM EST Patient stopped in after PT. He is having SOB after Exertion, He was moving boxes and took quite a while for the Chest Pressure to ease up. #[phone] documented in this encounter Plan of Treatment Upcoming Encounters Date Type Specialty Care Team Description 03/25/2022 Anesthesia Event Surgery Catrachita Baez MD [facility] ANESTHESIOLOGY [place], [place] [address] (Wo rk) 12/15/2022 Office Visit Cardiology Damián Hart MD [facility] [place], [place] [address] (Wo rk) 03/25/2050 Hospital Encounter Surgery Citlalli Richardson MD Vocal cord paralysis [facility] OTOLARYNGOLOGY [place], [place] [address] (Wo rk) documented as of this encounter Visit Diagnoses Not on filedocumented in this encounter Care Teams Flare Breaker Relationship Specialty Start Date End Date Vladimir Muñoz DO PCP - General Family Medicine 01/19/18 [address] [place] [address] documented as of this encounter
--- OUTSIDE RECORDS SUMMARY | 2022-08-05 09:06 | XMS_ITS | Encounter Summary ---
:1955 Author Organization [facility] [place] [address] Care Team Providers Name Role Phone Vladimir Muñoz DO Primary Care Provider Encounter Details Date Type Department Care Team Description 01/13/2022 Surgery Semiconductor Lab Technician Polo Luna, CARDIAC CATHETERIZATION [facility] [place] [address] CARDIOLOGY DEPT. [phone] [place], [place] [address] (Wo rk) Social History Tobacco [...] Sign Reading Time Taken Comments Blood Pressure 162/84 01/13/2022 9:55 AM EST Pulse 88 01/13/2022 9:25 AM EST Temperature 36.6 ??C (97.9 ??F) 01/13/2022 9:25 AM EST Respiratory Rate 18 01/13/2022 9:55 AM EST Oxygen Saturation 99% 01/13/2022 9:55 AM EST Inhaled Oxygen Concentration - - Weight 97.5 kg (215 lb) 01/13/2022 9:25 AM EST Height 182.9 cm (6') 01/13/2022 9:25 AM EST Body Mass Index 29.16 01/13/2022 9:25 AM EST documented in this encounter Discharge Instructions Discharge InstructionsFarrah Bone RN - 01/13/2022 1:17 PM EST Radial Access for Heart Cath Activity If you are discharged the same day as your procedure, do not drive yourself home. Arrange to have another person drive. You may walk around when you get home, but keep your activity at a minimum until the morning. Try to avoid bending your wrist for the first 12-24 hours after the procedure to allow the artery tofully heal. Do not participate in active sports for 48 hours. Do not lift anything greater than 5 lbs. You may engage in sexual activity after 48 hours. Catheter Insertion Area Care Take the dressing off of the catheter insertion site the morning following the procedure. Leave the site open to air. If the site is oozing you may cover it with a band aid. You may take a shower if you wish. Look for signs of infection over the next several days. It is uncommon to have any visible blood at the site, any obvious bleeding is abnormal. A bruise around the wrist or small lump under the skin is normal: they generally disappear in 3-5 days. Expect some mild tenderness over the area where the catheter was inserted. You will notice this after the local anesthetic (numbing medicine) wears off. This should improve during the 24-48 hours afterthe procedure. You may use acetaminophen (tylenol) if needed. Contact your doctor if the discomfort w orsens. Problems to Watch for If there is bright red blood flowing from the catheter insertion area: *stop what you are doing *hold pressure steadily on the area for 15 minutes *call for help *if the bleeding does not stop in 15 minutes call 911 for an ambulance. If there is swelling with black and blue color at the catheter insertion site, there may be bleeding inside. Contact the doctor if there is any increase in size. Look at the insertion site for the first few days at home. Signs of infection are: *redness *swelling *yellow, white, green or brown foul smelling drainage. *increased soreness If you think there is an infection, take your temperature. Then call your doctor. The limb on the side where you had your catheterization should look and feel normal in color, sensation, and temperature. If your hand or fingers become cool, pale, blue or change color contact your doctor. If you are having numbness or tingling in your fingers or hand contact your doctor. If you feel faint or dizzy, lie down with your feet elevated. Have someone call the doctor. If you are alert, drink fluids. How to Deal with Chest Pain If you had only the cardiac catheterization, treat any angina or chest discomfort as instructed. Stop what you are doing, and sit or lie down. If prescribed, take nitroglycerin under your tongue. If the angina isn't relieved, take another nitroglycerin in 5 minutes. After another 5 minutes, a third nit roglycerin may be taken. If the angina isn't improved you should call for an ambulance to bring you to the nearest hospital emergency room. If your angina is more frequent or severe than before, contact your doctor. We usually would not expect you to have angina after an angioplasty. If you do get angina, treat it as you did before, but also contact your doctor. Return to Work The doctor will usually have told you when to return to work. If you do not perform heavy physical labor, most people can return to work in a few days. Diet Follow your previous diet unless otherwise instructed. Cardiac Risk Factor If you have coronary artery disease, it is important that you help control it by reducing your cardiac risk factors. If you smoke, we urge you to stop now. If you think this is going to be a problem, let us know so that we may help you. We have dieticians who can help you learn about a low fat, low cholesterol diet. Cardiac rehabilitation programs can help you set up a regular exercise program. Work with your doctor if you have high blood pressure or sugar diabetes to keep these under control. Medications Take your usual medications medication changes If you are taking medications prescribed by your doctor, do not take any mfpr-fcu-sdptziq medicines or herbal preparations without first discussing this with your doctor or pharmacist. There is the possibility of side effects and interactions when these are combined. Follow Up Care Who to call with questions or problems If there are any questions or problems that you think might be related to your cardiac cath or angioplasty, contact the ladle patcher asset protection agent by calling [facility] at . documented in this encounter Medications at Time of Discharge Medication Sig Dispensed Refills Start Date End Date glipiZIDE XL (Glucotrol Take 2.5 mg by [...] Tablet mouth 2 times daily (with meals). amLODIPine (Norvasc) 10 take 1 tablet by 90 tablet 3 202006/16/2022 mg TabletIndications: mouth daily Essential hypertension atorvastatin (Lipitor) take 1 tablet by 90 tablet 3 04/16/ 021 06/30/2022 80 mg TabletIndications: mouth once daily ASCVD (arteriosclerotic cardiovascular disease) carvediloL (Coreg) 25 mg Take 1 tablet by 180 tablet 3 03/2601/31/2022 TabletIndications: mouth 2 times daily Essential hypertension (with meals). documented as of this encounter H&P Notes Polo Beckham MD - 01/13/2022 9:03 AM EST Images from the original note were not included. Complete Adult Pre-Procedural H&P Patient Name: Burton Mcnair Jr. : [id number] y.o. MR#: [id number] Chief Complaint: angina Planned Procedure: coronary angiogrphy History of Present Illness: HPI 66-year-old male followed by Dr. Hart with a history of previous coronary artery disease, status post multiple interventions to the RCA with restenosis, known occluded circumflex, and moderate LAD/distal left main disease who presents with progressive anginal symptoms. Last cath several years ago showed moderate disease that was physiologically negative. Symptom status has progressed to limiting angina. I have reviewed and updated as necessary the Medical, Surgical, Family, and Social History captured within the EMR. I have reviewed and updated as necessary the patient's allergies and current medication list within the EMR. Review of Systems: Review of Systems Physical Physical Exam Regular rate with an early soft flow murmur Pulmonary: Breath sounds clear to auscultation ASA: 2: Patient with mild systemic disease Mallampati: II: tonsillar pillars are blocked by the tongue Assessment and Plan: The risks of cardiac catheterization as outlined in the consent form were reviewed with the patient.He is familiar with this, having been through multiple interventions previously. The rationale for proceeding with catheterization was reviewed, and after all of the potential complications were discussed as outlined in the consent form, informed consent was obtained. We will plan for right radial access for diagnostic angiography and possible PCI, depending on angiographic findings. Sedation Plan: moderate (conscious sedation) Polo Beckham MD 01/13/2022 documented in this encounter Miscellaneous Notes Brief Op Note - Polo Beckham MD - 01/13/2022 10:38 AM EST Preliminary Cardiac Catheterization Procedure Note: Patient Name: Burton Mcnair Jr. : [id number] MR#: [id number] Case Date: 01/13/2022 Computer Meteorologist: Surgeon(s) and Role: * Polo Beckham MD - Primary * Yuko Lilly PA - Physician Security Software Engineer Preoperative diagnosis: ASCVD (arteriosclerotic cardiovascular disease) [I25.10] Postoperative diagnosis: * ASCVD * Procedure(s) performed: LHC Coronary angiography Left ventriculography Access: right radial A time-out was conducted prior to the start of the procedure to verify the correct patient and procedure, procedure location, and all relevant critical information. Preliminary findings: LM: 40% diffuse, Ca++ LAD: 60% mid heavy CA++, D1 proximal 65% LCx: mid 100%, Om1 proximal 75% RCA: mid 100%--> collaterals from left and bridging collaterals LVEDP 20 LV gram: 50%-55% The patient tolerated the procedures smoothly and was transferred from the cardiac catheterization lab to the next level of care in condition. No evident early complications. Discussed with Dr Hart and Dr Graham, given DM and MV CAD will refer for outpatient CABG Full report to follow. Polo Beckham MD documented in this encounter Plan of Treatment Upcoming Encounters Date Type Specialty Care Team Description 03/25/2022 Anesthesia Event Surgery Catrachita Baez MD [facility] ANESTHESIOLOGY [place], [place] [address] (Wo rk) 12/15/2022 Office Visit Cardiology Damián Hart MD [facility] [place], [place] [address] (Wo rk) 03/25/2050 Hospital Encounter Surgery Citlalli Richardson MD Vocal cord paralysis [facility] OTOLARYNGOLOGY [place], [place] [address] (Wo rk) documented as of this encounter Procedures Procedure Name Priority Date/Time Associated Diagnosis Comme nts POCT GLUCOSE Routine 01/13/2022 11:30 Results for this AM EST procedure are i n the results section. POINT OF CARE BLOOD GAS Routine 01/13/2022 10:37 Results for this HISTORICAL AM EST procedure are i n the results section. CARDIAC CATHETERIZATION Routine 01/13/2022 10:31 ASCVD Results for this AM EST (arteriosclerotic procedure are in cardiovascular the results disease) section. CORONARY ANGIOGRAPHY; W 01/13/2022 9:46 ASCVD [facility] AM EST (arteriosclerotic cardiovascular disease) POCT GLUCOSE Routine 01/13/2022 9:25 Results for this AM EST procedure are i n the results section. HEMOGRAM STAT 01/13/2022 9:11 Results for this AM EST procedure are i n the results section. DIFFERENTIAL, AUTOMATED STAT 01/13/2022 9:11 R esults for this AM EST procedure are i n the results section. BASIC METABOLIC PANEL STAT 01/13/2022 9:11 Res ults for this (NON-FASTING) AM EST procedure are in the results section. documented in this encounter Results POCT Glucose (01/13/2022 11:30 AM EST) P athologist Signature POC Glucose 121 65 - 199 [facility] mg/dL [facility] Comment: Supplemental ranges: <140 mg/dL before meals <180 mg/dL all other times of the day Specimen Anatomical Collection Method Collection Time Receive d Time (Source) Location / / Volume Laterality Blood 01/13/2022 11:30 01/13/2022 AM EST 11:30 AM EST Polo Beckham MD POINT OF CARE TEST ORDERABLE S Performing Organization Address City/State/[place] [address] (ABNORMAL) Point of Care Blood Gas Historical (01/13/2022 10:37 AM EST) Patholo gist Method Time Signature POC pH 7.41 7.35 - [facility] 7.45 [facility] POC PCO2 38 35 - 45 [facility] mmHg [facility] POC PO2 78 (L) 85 - 104 [facility] mmHg [facility] POC Base Excess -1.0 -3.0 - 3.0 [facility] K mmol/L [facility] POC HCO3 23.9 20.0 - [facility] 26.0 [facility] mmol/L [facility] POC Sodium 139 135 - 145 [facility] mmol/L [facility] POC Potassium 3.9 3.5 - 5.0 [facility] mmol/L [facility] POC Ionized Ca 1.18 1.15 - [facility] 1.33 [facility] mmol/L [facility] POC Hematocrit 30.0 (L) 40.0 - [facility] 51.0 % [facility] POC Calc Hgb 10.2 (L) 13.7 - [facility] 17.5 g/dL [facility] Comment: The calculation of hemoglobin f rom hematocrit assumes a normal MCHC. POC Bgas Loc CC LAB [place] Specimen Anatomical Collection Method Collection Time Receive d Time (Source) Location / / Volume Laterality Blood 01/13/2022 10:37 01/16/2022 9:00 AM EST AM EST Polo Beckham MD CHEMISTRY ORDERABLES Performing Organization Address City/State/[place] [address] CARDIAC CATHETERIZATION (01/13/2022 10:31 AM EST) Anatomical Region Laterality Modality Other Specimen (Source) Anatomical Location Collection Method / Collectio n Time Received Time / Laterality Volume Narrative 01/14/2022 1:44 PM EST ?[facility] ? Cardiac Cathete rization/Intervention Report ? Patient Name: Xu Jr, Burton D. ? Procedure Date: 01/13/2022 ? A #: [id number] ? Primary Physician: Rubén, Polo T ? Case #: [id number] ? File Name: [id number] ? Catheterization Order Number: [id number] ? [facility] ? Final Report [place], [place] ? Patient Name: ? Burton D. Gar field Jr ? ID#: ?[id number] ? : ?1955 ? Procedure Date: ? February 28, 20 22 ?Case #: ? [id number] ? Room: ? 2 ? Case Physician: ? Polo Beckham M.D. ?Start: ?10:00 ? Admission: ??01/13/2022 ? Referring Physician: ??Vladimir costa M.D. ? Procedures: ?* Coronary Angiography ?* Left Heart Catheterization ?* Left Ventriculography ?* Arterial Blood Gases ? History ?Burton Mcnair Jr is a 66 year old man. He has hypertension and a ?family history of coronary jonnathan ry disease. The patient's smoking status ?is Never. He has hypercholester olemia managed with lipid therapy. The ?patient has diabetes managed wi th oral medication. He has a prior history ?of coronary artery disease. The patient had a remote coronary ?intervention procedure. Prior t o the initiation of this procedure, the ?patient was designated as ASA C lass III. The [facility] clinical frailty scale ?is 3: Managing Well. ? Diagnostic Tests: ?Medications Prior to Procedure: ? Aspirin, Beta Yecenia, C alcium Channel Blocking Agent, Long Acting ? Nitrate and Statin. ? Indications for Diagnostic Cath: ?The priority of the diagnostic procedure was Elective. The indication for ?the labor specialist visit is worsening angina. Chest pain symptom assessment ?was: Typical Angina. ? Technique: ?A 6 SLFr sheath was inserted in the right radial artery utilizing the ?Seldinger technique. The left c oronary artery was injected utilizing a ?5Fr VON RADIAL catheter. A 5F r VON RADIAL catheter was used to inject ?the right coronary artery. Left ventricular pressure was performed ?utilizing a 6Fr ANGLED PIGTAIL catheter. 6,000 units of heparin were ?administered. A total of 150cc of Omnipaque were opened, 106cc of ?Omnipaque were administered and 44cc of Omnipaque were wasted. Radiation: ?Fluoro time was 3.9 minutes, do se area product was 69,323 mGYcm2 and air ?kerma was 1,181 mGY. See the ca se log for additional details. ?The patient received the follow ing medications prior to and during the ?procedure: ? Unfractionated Heparin. ? Hemodynamics: ?Left Heart Pressures ? Resting: ? Syst D iast ? EDP ?a ?v ? m ?Ao 123 ?? 65 ?91 ?LV 130 ? 20 ? Left Ventriculography: ?View RDZ ?Overall LV ?Normal ?Function: ?Estimated LV Ejection Fraction: 55% ? Coronary Angiography: ?Dominance: Right ?Left Main ? There was mild diffuse ( <=25% stenosis) disease of the entire vessel ? segment of the left main artery. ?Left Anterior Descending ? There was mild diffuse ( <=25% stenosis) disease of the entire vessel ? segment of the left ante rior descending artery (LAD). ??The proximal ? segment of the LAD had a diffuse 40% stenosis. ??There also was a 55% ? calcified single discret e stenosis of the mid segment of the LAD. ? There was a 60% single d iscrete stenosis of the proximal segment of ? the first diagonal branc h (Diagonal 1) of the LAD. ?Left Circumflex ? There was mild diffuse ( <=25% stenosis) disease of the entire vessel ? segment of the left circ umflex artery (LCX). ??The mid segment of the ? LCX had a single discret e total occlusion. ? There was a 70% long seg mental stenosis of the proximal segment of ? the first obtuse margina l branch (OM1) of the LCX. ??The OM1 was ? moderate in size. ?Right Coronary Artery ? There was mild diffuse ( <=25% stenosis) disease of the entire vessel ? segment of the right cor onary artery (RCA). ??The mid segment of the ? RCA had a calcified sing le discrete total occlusion. ? Vascular Access: ?Vascular Access Management: ? Mechanical Compression o f the right radial artery access site was ? performed. ? Point of Care Testing: ?ABG: ? Arterial Blood gasses we re performed using the I-Stat analyzer at ? 10:23: pH: 7.41, pCO2: 3 8.2, pO2: 78.0, sPO2: 96%, HCO3: 23 on FIO2: ? 100. ?I-Stat: ? I-Stat was performed usi ng the I-Stat analyzer at 10:23: Na+: 139, ? K+: 3.9, iCa++: 1.18, Hc t: 30%, Hb: 10.2. ? Conclusions: ?* Three vessel coronary artery disease (LAD, LCX and RCA) ?* Normal left ventricular funct ion (EF-55%) ?* Elevated left ventricular end diastolic pressure ? Complications/Events: ?The patient had no complication s during these procedures. ? Recommendations: ?Based upon the results of this procedure, it was recommended that ?coronary artery bypass surgery be considered. ?The attending physician was en t for the entire procedure. ?Dr. Polo Beckham M.D. was pres ent during the moderate sedation ?intraservice time as documented by the sedation nurse. ??Case time = 00:23. ?Dr. Polo Beckham M.D. performe d the coronary angiography, left heart ?catheterization, left ventriculogr aphy and ABG. ? Polo Beckham M.D. ? Electronically Signed by: Polo esparza M.D. ? Report Finalized: 01/14/2022 ??13:37 ? Polo Beckham MD CARDIAC CATH ORDERABLES POCT Glucose (01/13/2022 9:25 AM EST) P athologist Signature POC Glucose 139 65 - 199 [facility] mg/dL [facility] Comment: Supplemental ranges: <140 mg/dL before meals <180 mg/dL all other times of the day Specimen Anatomical Collection Method Collection Time Receive d Time (Source) Location / / Volume Laterality Blood 01/13/2022 9:25 AM 9:25 EST AM EST Polo Beckham MD POINT OF CARE TEST ORDERABLE S Performing Organization Address City/State/ZIP Code Phon e Number [place] [phone] [facility] Drive Differential, Automated (01/13/2022 9:11 AM EST) P athologist Signature Neutrophils % 67.2 % [facility] Neutr Abs (ANC) 3.69 1.70 - [facility] 6.10 [facility] x10(3)/[facility] LABORATORY Lymphocytes % 19.5 % [facility] Lymphocytes Abs 1.1 0.9 - 3.2 [facility] x10(3)/[facility] LABORATORY Monocytes % 9.1 % [facility] Monocyte Abs 0.5 0.3 - 0.9 [facility] x10(3)/[facility] LABORATORY Eosinophils % 2.9 % [facility] Eosinophils Abs 0.2 0.0 - 0.4 [facility] x10(3)/[facility] LABORATORY Basophils % 1.1 % [facility] Basophils Abs 0.1 0.0 - 0.1 [facility] x10(3)/[facility] LABORATORY Immature Gran % 0.20 % [facility] Comment: Immature granulocytes(IG's)percentage an d absolute count will include metamyelocytes, myelocytes, and promyelo cytes. Blood smears from CBCs yielding IG's will be scanned manually for concor dance. If this scan disagrees with the automated IG or if promyelocytes are not ed, a manual differential will be performed. Nikole Gran Abs 0.01 0.00 - 0.04 x10(3)/[facility] Specimen Anatomical Collection Method Collection Time Receive d Time (Source) Location / / Volume Laterality Blood Venous Draw / 01/13/2022 9:11 AM 01/13/20 22 9:36 Unknown EST AM EST Resulting Agency Comment Spec In Lab Damián Hart MD HEMATOLOGY ORDERABLES Performing Organization Address City/[facility]/ZIP [place] [address] [facility] [address] Basic Metabolic Panel (non-fasting) (01/13/2022 9:11 AM EST) P athologist Signature Glucose Lvl 141 65 - 199 [facility] mg/dL [facility] Comment: Diabetes: >=200 mg/dL plus symp toms BUN 12 10 - 20 mg/dL [facility] Creatinine 1.04 0.80 - 1.50 mg/dL [facility] Sodium 140 135 - 145 mmol/L [facility] Potassium 4.0 3.5 - 5.0 mmol/L [facility] Comment: Please note: ??Patients with WBC >100,00 0 may have falsely elevated Potassium levels. ??For accurate Potassium quantif ication in these patients send serum separator tube (gold top) for subsequent determinations. ??Contact the Clinical Chemistry Laboratory if there are any qu estions. Chloride 103 98 - 107 mmol/L [facility] CO2 24 22 - 31 mmol/L [facility] Anion Gap 13 5 - 15 mmol/L [facility] Calcium 9.2 8.5 - 10.5 mg/dL [facility] Estimated GFR 74 >=60 mL/min/1.73 m?? [facility] Comment: This patient? s estimated glomerular filtration rate (eGFR) is between 74 mL/min/1.73 m2 (patients with less muscl e mass per kg body weight) and 86 mL/min/1.73 m2 (patients with more muscl e [...] (Source) Location / / Volume Laterality Blood Venous Draw / 01/13/2022 9:11 AM 01/13/20 9:36 Unknown EST AM EST Resulting Agency Comment Spec In Lab Damián Hart MD CHEMISTRY ORDERABLES Performing Organization Address City/State/[place] [address] (ABNORMAL) Hemogram (01/13/2022 9:11 AM EST) Analysis Performed At Patho logist Time Signature WBC 5.5 4.0 - 9.5 [facility] LABORATORY RBC 3.90 (L) 4.58 - [facility] 5.54 [facility] x10(6)/[facility] LAB[facility]ATORY Hemoglobin 12.3 (L) 13.7 - [facility] 16.[facility] g/dL [facility] Hematocrit 33.9 (L) 40.5 - [facility] 48.5 % [facility] MCV 86.9 82.9 - [facility] 93.1 [facility] LABORATORY MCH 31.5 27.5 - [facility] 32.1 pg [facility] MCHC 36.3 (H) 32.0 - [facility] 35.7 g/dL [facility] Platelets 183 145 - 357 [facility] x10(3)/[facility] LABORATORY RDWSD 40.5 36.0 - [facility] 45.0 [facility] LABORATORY RDWCV 12.8 11.4 - [facility] 13.8 % [facility] MPV 9.2 7.6 - 12.9 [facility] LABORATORY nRBC % Auto 0.0 % [facility] nRBC Abs Auto 0.000 0.000 - [facility] 0.000 [facility] x10(3)/[facility] LABORATORY Specimen Anatomical Collection Method Collection Time Receive d Time (Source) Location / / Volume Laterality Blood Venous Draw / 01/13/2022 9:11 AM 01/13/20 9:36 Unknown EST AM EST Resulting Agency Comment Spec In Lab Damián Hart MD HEMATOLOGY ORDERABLES Performing Organization Address City/State/[place] [address] [address] documented in this encounter Visit Diagnoses Diagnosis ASCVD (arteriosclerotic cardiovascular d isease) Unspecified cardiovascular disease ASCVD (arteriosclerotic cardiovascular d isease) Unspecified cardiovascular disease Vocal cord paralysis Paralysis of vocal cords or larynx, unsp ecified documented in this encounter Administered Medications Inactive Administered Medications - up to 3 most recent administrations Medication Order MAR Action Action Date Dose Rate Site fentaNYL (pf) (50 mcg/mL) Given 01/13/2022 10:06 AM EST 50 mcg multi-dose injection ONCE PRN, Starting on Thu01/13/22 at 1006, Until Thu01/13/22 at 1607, Cath (Intra-Procedure), Routine fentaNYL (pf) (50 mcg/mL) multi-dose Given 01/13/2022 10:[address] 25 mcg injection ONCE PRN, Starting on Thu01/13/22 at 1022, Until Thu01/13/22 at 1607, Intra-Operative (Intra-Procedure), Routine heparin (porcine) (1,000 units/mL) Given 01/13/2022 10:06 AM EST 6,000 Units injection ONCE PRN, Starting on Thu01/13/22 at 1006, Until Thu01/13/22 at 1607, Cath (Intra-Procedure), Routine lidocaine (Xylocaine) 1% (10 mg/mL) inje ction 3 mg 3 mg (0.3 mL), Subcutaneous, ONCE PRN, 1 dose, Startin g on Thu01/13/22 at 0924, Until Thu01/13/22 at 1607, with discomfort with PIV in sertion, Cath (Day of Procedure), Routine midazolam (pf) (Versed) (1 mg/mL) multi-dose Given 10:22 AM EST 1 mg injection ONCE PRN, Starting on Thu01/13/22 at 1002, Until Thu01/13/22 at 1607, Cath (Intra-Procedure), Routine Given 01/13/2022 10:02 AM EST 1 mg nitroGLYcerin 100 mcg/mL intracoronary Given 01/13/2022 10:02 AM EST 150 mcg dilution ONCE PRN, Starting on Thu01/13/22 at 1002, Until Thu01/13/22 at 1607, Cath (Intra-Procedure), Routine sodium chloride 0.9 % (flush) [facility] Saline 0.9) flush 5 mL 5 mL, Intravenous, EVERY 12 HOURS, First dose on Thu at 0945, Until Discontinued, Cath (Day of Procedure), Routine sodium chloride 0.9 % (flush) (BD PosiFl ush Normal Saline 0.9) flush 5-20 mL 5-20 mL, Intravenous, EVERY 1 MIN PRN, S tarting on Thu01/13/22 at 0924, Until Thu01/13/22 at 1607, flush, Flush pertains t o all indwelling lines. Flush per protocol found in the job aid using the link prov ided on this medication record., Cath (Day of Procedure), Routine sodium chloride 0.9% infusion Continued Bag 01/13/2022 10:50 AM 100 mL/hr 100 mL/hr 100 mL/hr, Intravenous, EST CONTINUOUS, Starting on Thu01/13/22 at 1100, Until Thu01/13/22 at 1259, Recovery (Recovery-Hospital Unit) verapamiL (Isoptin) (2.5 mg/mL) injectio n Given 01/13/2022 10:02 AM EST 2.5 mg ONCE PRN, Starting on Thu01/13/22 at 1002, Until Thu01/13/22 at 1607, Administer over 2 Minutes, Cath (Intra-Procedure) documented in this encounter Active and Recently Administered Medications Times are shown in EST. Scheduled Medication Order 01/11/2022 01/12/2022 01/13/2022 sodium chloride 0.9 % (flush) (BD PosiFlush Normal Saline 0.9) f lush 5 mL 0945 (Due) 5 mL, Intravenous, EVERY 12 HOURS, First dose on Thu01/13/22 at 0945, Until Discontinued, Cath (Day of Procedure), Routine Continuous Medication Order 01/11/2022 01/12/2022 01/13/2022 sodium chloride 0.9% infusion 09 45 (Due) 200 mL/hr, Intravenous, CONTINUOUS, Star ting on Thu01/13/22 at 0945, Until Thu01/13/22 at 1344, Cath (Day of Procedure) sodium chloride 0.9% infusion 10 50 (Continued Bag - Provider: Madeline Faria RN) 100 mL/hr, Intravenous, CONTINUOUS, Star ting on Thu01/13/22 at 1100, Until Thu01/13/22 at 1259, Recovery (Recovery-Hospital Unit) PRN Medication Order 01/11/2022 01/12/2022 01/13/2022 atropine (0.1 mg/mL) injection 1 mg 1 mg, Intravenous, EVERY 5 MIN PRN, 2 do ses, Starting on Thu01/13/22 at 1044, Until Thu01/13/22 at 1607, Other, vasovagal episode, Call interventional MD. , Cath (Recovery-Hospital Unit), Routine fentaNYL (PF) (50 mcg/mL) injection 25 mcg 25 mcg, Intravenous, EVERY 30 MIN PRN, 4 doses, Starting on Thu01/13/22 at 1044, Until Thu01/13/22 at 1607, Pain, sheath removal, May repeat once while in Cath Recovery Unit , Cath (Recovery-Hospital Unit), Routine fentaNYL (pf) (50 mcg/mL) multi-dose injection 1006 (Given - Provider: Polo Rodriguez, ESTEFANIA) ONCE PRN, Starting on Thu01/13/22 at 100 6, Until Thu01/13/22 at 1607, Cath (Intra-Procedure), Routine fentaNYL (pf) (50 mcg/mL) multi-dose injection 1022 (Given - Provider: Polo Rodriguez, ESTEFANIA) ONCE PRN, Starting on Thu01/13/22 at 102 2, Until Thu01/13/22 at 1607, Intra- Operative (Intra-Procedure), Routine heparin (porcine) (1,000 units/mL) injection 1006 (Given - Provider: Polo Rodriguez, ESTEFANIA) ONCE PRN, Starting on Thu01/13/22 at 100 6, Until Thu01/13/22 at 1607, Cath (Intra-Procedure), Routine lidocaine (Xylocaine) 1% (10 mg/mL) injection 3 mg 3 mg (0.3 mL), Subcutaneous, ONCE PRN, 1 dose, Starting on Thu01/13/22 at 0924, Until Thu01/13/22 at 1607, with discomfort with PIV insertion, Cath (Day of Procedure), Routine midazolam (pf) (Versed) (1 mg/mL) injection 1 mg 1 mg, Intravenous, EVERY 1 HOUR PRN, 2 d oses, Starting on Thu01/13/22 at 1044, Until Thu01/13/22 at 1607, For sheath removal, May repeat once while in Cath Recovery Unit. , Cath (Recovery-Hospital Unit), Routine midazolam (pf) (Versed) (1 mg/mL) multi-dose injection 1002 (Given - Provider: Polo Rodriguez, ESTEFANIA)1022 (Given - Provider: Darien Pringle RN) ONCE PRN, Starting on Thu01/13/22 at 100 2, Until Thu01/13/22 at 1607, Cath (Intra-Procedure), Routine nitroGLYcerin 100 mcg/mL intracoronary dilution 1002 (Given - Provider: Polo Beckham MD) ONCE PRN, Starting on Thu01/13/22 at 100 2, Until Thu01/13/22 at 1607, Cath (Intra-Procedure), Routine sodium chloride 0.9 % (flush) (BD PosiFlush Normal Saline 0.9) f lush 5-20 mL 5-20 mL, Intravenous, EVERY 1 MIN PRN, S tarting on Thu01/13/22 at 0924, Until Thu01/13/22 at 1607, flush, Flush pertains to all indwelling lines. Flush per protocol found in the job aid using the link p rovided on this medication record., Cath (Day of Procedure), Rou bonnie verapamiL (Isoptin) (2.5 mg/mL) injection 1002 (Given - Provider: Polo Beckham MD) ONCE PRN, Starting on Thu01/13/22 at 100 2, Until Thu01/13/22 at 1607, Administer over 2 Minutes, Cath (Intra-Procedure) documented in this encounter Care Teams Mainspring Torque Tester Relationship Specialty Start Date End Date Vladimir Muñoz DO PCP - General Family Medicine 01/19/18 [address] [place] [address] documented as of this encounter
--- OUTSIDE RECORDS SUMMARY | 2022-08-05 09:06 | XMS_ITS | Encounter Summary ---
:1955 Author Organization [facility] [place] [address] Care Team Providers Name Role Phone Vladimir Muñoz DO Primary Care Provider Encounter Details Date Type Department Care Team Description 01/13/2022 Hospital Encounter Wagon Driver at [facility]rey [facility], MD (arteriosclerotic [facility] cardiovascular [facility] DR disease) [facility] CARDIOLOGY [place], [place] DEPT. [id number] [place], [place] [phone] [id number] Social History Tobacco Use Types Packs/Day Years [...] Sign Reading Time Taken Comments Blood Pressure 151/84 01/13/2022 1:35 PM EST Pulse 80 01/13/2022 1:35 PM EST Temperature 36.6 ??C (97.9 ??F) 01/13/2022 9:25 AM EST Respiratory Rate 20 01/13/2022 1:35 PM EST Oxygen Saturation 98% 01/13/2022 1:35 PM EST Inhaled Oxygen Concentration - - [...] by your doctor, do not take any [id number]-tfq-[id number] medicines or herbal preparations without first discussing this with your doctor or pharmacist. There is the possibility of side effects and interactions when these are combined. Follow Up Care Who to call with questions or problems If there are any questions or problems that you think might be related to your cardiac cath or angioplasty, contact the prior authorization technician contractor broomcorn threshing by calling [facility] at . documented in this encounter Medications [...] take 1 tablet by 90 tablet 3 04/16/2 021 06/30/2022 80 mg TabletIndications: mouth once daily ASCVD (arteriosclerotic cardiovascular disease) carvediloL (Coreg) 25 mg Take 1 tablet by 180 tablet 3 03/2601/31/2022 TabletIndications: mouth 2 times daily Essential hypertension (with meals). documented as of this encounter H&P Notes Polo Montana MD - 01/13/2022 9:03 AM EST Images from the original note were not included. Complete Adult Pre-Procedural H&P Patient Name: Burton Mcnair Jr. : [id number] y.o. MR#: [id number] Chief Complaint: angina Planned Procedure: coronary angiogrphy [...] findings. Sedation Plan: moderate (conscious sedation) Polo Montana MD 01/13/2022 documented in this encounter Miscellaneous Notes Brief Op Note - Polo Montana MD - 01/13/2022 10:38 AM EST Preliminary Cardiac Catheterization Procedure Note: Patient Name: Burton Mcnair Jr. : [id number] MR#: [id number] Case Date: 01/13/2022 Cook Soup: Surgeon(s) and Role: * Polo Montana MD - Primary * Yuko Lilly PA - Physician Mill Control Operator Preoperative diagnosis: ASCVD (arteriosclerotic cardiovascular disease) [I25.10] Postoperative diagnosis: * ASCVD * Procedure(s) performed: [facility] Coronary angiography Left ventriculography Access: right radial [...] outpatient CABG Full report to follow. Polo Montana MD documented in this encounter Plan of Treatment Upcoming Encounters Date Type Specialty Care Team Description 03/25/2022 Anesthesia Event Surgery Catrachita Baez MD [facility] ANESTHESIOLOGY [place], [place] [address] (Wo rk) 12/15/2022 Office Visit Cardiology Damián Hart MD [facility] [place] [address] (Wo rk) 03/25/2050 Hospital Encounter Surgery Citlalli Richardson MD Vocal cord paralysis [facility] OTOLARYNGOLOGY [place], [place] [address] (Wo rk) documented as of [...] Signature POC Glucose 121 65 - 199 [facility] mg/dL [facility] Comment: Supplemental ranges: <140 mg/dL before meals <180 mg/dL all other times of the day Specimen Anatomical Collection Method Collection Time Receive d Time (Source) Location / / Volume Laterality Blood 01/13/2022 11:30 01/13/2022 AM EST 11:30 AM EST Polo Montana MD POINT OF CARE TEST ORDERABLE S Performing Organization Address City/State/[place] [address] (ABNORMAL) Point of Care Blood Gas Historical (01/13/2022 10:37 AM EST) [facility] Method Time Signature POC pH 7.41 7.35 - [facility] 7.45 [facility] POC PCO2 38 35 - 45 [facility] mmHg [facility] POC PO2 78 (L) 85 - 104 [facility] LABORATORY POC Base Excess -1.0 -3.0 - 3.0 [facility] K mmol/L [facility] POC HCO3 23.9 20.0 - [facility].0 [facility] mmol/L [facility] LABORATORY POC Sodium 139 135 - 145 [facility] mmol/L [facility] POC Potassium 3.9 3.5 - 5.0 [facility] mmol/L [facility] POC Ionized Ca 1.18 1.15 - [facility] 1.33 [facility] mmol/[facility] LAB[facility] POC Hematocrit 30.0 (L) 40.0 - [facility] 51.0 % [facility] POC Calc Hgb 10.2 (L) 13.7 - [facility] 17.5 g/dL [facility] Comment: The calculation of hemoglobin f rom hematocrit assumes a normal MCHC. POC Bgas Loc CC LAB [facility] LAB[facility]ATORY Specimen Anatomical Collection Method Collection Time Receive d Time (Source) Location / / Volume Laterality Blood 01/13/2022 10:37 01/16/2022 9:00 AM EST AM EST Polo Montana MD CHEMISTRY ORDERABLES Performing Organization Address [facility]/State/[place] [address] CARDIAC CATHETERIZATION (01/13/2022 10:31 AM EST) Anatomical Region Laterality Modality Other Specimen (Source) Anatomical Location Collection Method / Collectio n Time Received Time / Laterality Volume Narrative 01/14/2022 1:44 PM EST ?[facility] ? Cardiac Cathete rization/Intervention Report ? Patient Name: Gilpin Jr, Burton D. ? Procedure Date: 01/13/2022 ? A #: [id number] ? Primary Physician: Polo Montana ? Case #: [id number] ? File Name: [id number] ? Catheterization Order Number: [id number] ? [facility] ? Final Report [place], [place] ? Patient Name: ? Burton D. Gar field Jr ? ID#: ?[id number] ? : ?1955 ? Procedure Date: ? February 28, 20 22 ?Case #: ? [id number] ? Room: ? 2 ? Case Physician: ? Polo Montana M.D. ?Start: ?10:00 ? Admission: ??01/13/2022 ? [...] designated as ASA C lass III. The [facility] clinical frailty scale ?is 3: Managing Well. ? Diagnostic Tests: ?Medications Prior to Procedure: ? Aspirin, Beta Yecenia, C alcium Channel Blocking Agent, Long Acting ? Nitrate and Statin. ? Indications for Diagnostic Cath: ?The priority of the diagnostic procedure was Elective. The indication for ?the director of laboratory operations visit is worsening angina. Chest pain symptom [...] surgery be considered. ?The attending physician was latosha greer for the entire procedure. ?Dr. Polo Montana M.D. was pres ent during the moderate sedation ?intraservice time as documented by the sedation nurse. ??Case time = 00:23. ?Dr. Polo Montana M.D. performe d the coronary angiography, left heart ?catheterization, left ventriculogr aphy and ABG. ? Polo Montana M.D. ? Electronically Signed by: Polo esparza M.D. ? Report Finalized: 01/14/2022 ??13:37 ? Polo Montana MD CARDIAC CATH ORDERABLES POCT Glucose (01/13/2022 9:25 AM EST) P athologist Signature POC Glucose 139 65 - 199 [facility] mg/dL [facility] Comment: Supplemental ranges: <140 mg/dL before meals <180 mg/dL all other times of the day Specimen Anatomical Collection Method Collection Time Receive d Time (Source) Location / / Volume Laterality Blood 01/13/2022 9:25 AM 9:25 EST AM EST Polo Montana MD POINT OF CARE TEST ORDERABLE S Performing Organization Address City/State/ZIP Code Phon e Number [address] Differential, Automated (01/13/2022 9:11 AM EST) P athologist Signature Neutrophils % 67.2 % [facility] Neutr Abs (ANC) 3.69 1.70 - [facility] 6.10 [facility] x10(3)/[facility] LABORATORY Lymphocytes % 19.5 % [facility] Lymphocytes Abs 1.1 0.9 - 3.2 [facility] x10(3)/[facility] LABORATORY Monocytes % 9.1 % [facility] Monocyte Abs 0.5 0.3 - 0.9 [facility] x10(3)/[facility] LABORATORY Eosinophils % 2.9 % [facility] Eosinophils Abs 0.2 0.0 - 0.4 [facility] x10(3)/[facility] LABORATORY Basophils % 1.1 % [facility] Basophils Abs 0.1 0.0 - 0.1 [facility] x10(3)/[facility] LABORATORY Immature Gran % 0.20 % [facility] Comment: Immature granulocytes(IG's)percentage an d absolute count will include metamyelocytes, myelocytes, and promyelo cytes. Blood smears from CBCs yielding IG's will be scanned manually for concor dance. If this scan disagrees with the automated IG or if promyelocytes are not ed, a manual differential will be performed. Nikole Gran Abs 0.01 0.00 - 0.04 x10(3)/[facility] LABORATORY Specimen Anatomical Collection Method Collection Time Receive d Time (Source) Location / / Volume Laterality Blood Venous Draw / 01/13/2022 9:11 AM 01/13/20 9:36 Unknown EST AM EST Resulting Agency Comment Spec In Lab Damián Hart MD HEMATOLOGY ORDERABLES Performing Organization Address City/[facility]/ZIP Code Phon e Number [address] Basic Metabolic Panel (non-fasting) (01/13/2022 9:11 AM EST) P athologist Signature Glucose Lvl 141 65 - 199 [facility] mg/dL [facility] Comment: Diabetes: >=200 mg/dL plus symp toms BUN 12 10 - 20 mg/dL [facility] Creatinine 1.04 0.80 - 1.50 mg/dL [facility] Sodium 140 135 - 145 mmol/L [facility] Potassium 4.0 3.5 - 5.0 mmol/L [facility] Comment: Please note: ??Patients with WBC >100,00 0 may have falsely elevated Potassium levels. ??For accurate Potassium quantif ication in these patients send serum separator tube (gold top) for subsequent determinations. ??Contact the Clinical Chemistry Laboratory if there are any qu estions. Chloride 103 98 - 107 mmol/L [facility] CO2 24 22 - 31 mmol/L [facility] Anion Gap 13 5 - 15 mmol/L [facility] Calcium 9.2 8.5 - 10.5 mg/dL [facility] Estimated GFR 74 >=60 mL/min/1.73 m?? [facility] Comment: This patient? s estimated [...] Organization Address City/State/[place] [address] (ABNORMAL) Hemogram (01/13/2022 9:11 AM EST) Analysis Performed At Patho logist Time Signature WBC 5.5 4.0 - 9.5 [facility] x[facility](3[facility] LABORATORY RBC 3.90 (L) 4.58 - [facility] LOY 5.54 [facility] x10(6)/[facility] LABORATORY Hemoglobin 12.3 (L) 13.7 - [facility] 16.5 g/dL [facility] Hematocrit 33.9 (L) 40.5 - [facility] 48.5 % [facility] MCV 86.9 82.9 - [facility] 93.1 [facility] LABORATORY MCH 31.5 27.5 - [facility] 32.1 pg [facility] MCHC 36.3 (H) 32.0 - [facility] 35.7 g/dL [facility] Platelets 183 145 - 357 [facility] x10(3)/[facility] LABORATORY RDWSD 40.5 36.0 - [facility] LOY 45.0 [facility] [place] [facility] LABORATORY RDWCV 12.8 11.4 - [facility] 13.8 % [facility] MPV 9.2 7.6 - 12.9 [facility] LABORATORY nRBC % Auto 0.0 % [facility] nRBC Abs Auto 0.000 0.000 - [facility] LOY 0.000 [facility] x10(3)/[facility] LABORATORY Specimen Anatomical Collection Method Collection Time Receive d Time (Source) Location / / Volume Laterality Blood Venous Draw / 01/13/2022 9:11 AM 01/13/20 9:36 Unknown EST AM EST Resulting Agency Comment Spec In Lab Damián Hart MD HEMATOLOGY ORDERABLES Performing Organization Address City/State/[place] [address] documented in this encounter [...] sodium chloride 0.9 % (flush) (BD PosiFl [facility] Normal Saline 0.9) flush 5 [...] multi-dose injection 1006 (Given - Provider: Polo Rodriguez RN) ONCE PRN, Starting on Thu01/13/22 at [...] intracoronary dilution 1002 (Given - Provider: Polo Montana MD) ONCE PRN, Starting on Thu01/13/22 at [...] mg/mL) injection 1002 (Given - Provider: Polo Montana MD) ONCE PRN, Starting on Thu01/13/22 at 100 2, Until Thu01/13/22 at 1607, Administer over 2 Minutes, Cath (Intra-Procedure) documented in this encounter Care Teams Aircraft Powerplant Repairer Relationship Specialty Start Date End Date Vladimir Muñoz DO PCP - General Family Medicine 01/19/18 [address] [place], [place] [id number] documented as of this encounter
--- OUTSIDE RECORDS SUMMARY | 2022-08-05 09:06 | XMS_ITS | Encounter Summary ---
:1955 [place] [address] Care Team Providers Name Role Phone Vladimir Muñoz DO Primary Care Provider Reason for Visit Reason Comments Coronary Artery Disease Shortness of Breath Encounter Details Date Type Department Care Team Description 01/01/2022 [facility] ASCVD (ar teriosclerotic cardiovascular disease); Sami CORADO Hyperpiesia [address] [place], [place] [id number] [phone] Social History Tobacco Use Types Packs/Day Years [...] Sign Reading Time Taken Comments Blood Pressure 162/88 01/01/2022 4:17 PM EST Pulse 67 01/01/2022 4:17 PM EST Temperature - - Respiratory Rate - - Oxygen Saturation - - Inhaled Oxygen Concentration - - Weight 99.8 kg (220 lb) 01/01/2022 4:17 PM EST Height 177.8 cm (5' 10) 01/01/2022 4:17 PM EST Body Mass Index 31.57 01/01/2022 4:17 PM EST documented in this encounter Progress Notes Damián Hart MD - 01/01/2022 4:00 PM EST Images from the original note were not included. Subjective: Patient ID: Burton Mcnair Jr. is a 66 y.o. male who presents on follow-up for: Chief Complaint Patient presents with ??? Coronary Artery Disease ??? Shortness of Breath HPI Last seen by Dr Brooks 04/2021, at which time he was having no angina; no changes were made. Since then, over the past couple of months he has noticed an increase in dyspnea to nyha ii-iii levels. He has also redeveloped ccs ii angina after lifting heavy boxes, which has taken an increased duration of time to dissipate. This constellation of symptoms is reminiscent of needing revascularization in the past No bleeding issues bp reasonably controlled at home Current Outpatient Medications: ??? amLODIPine (Norvasc) 10 mg Tablet, take 1 tablet by mouth daily, Disp: 90 tablet, Rfl: 3 ??? atorvastatin (Lipitor) 80 mg Tablet, take 1 tablet by mouth once daily, Disp: 90 tablet, Rfl: 3 ??? carvediloL (Coreg) 25 mg Tablet, Take 1 tablet by mouth 2 times daily (with meals)., Disp: 180 tablet, Rfl: 3 ??? nitroGLYcerin (Nitrostat) 0.4 [...] daily (with meals)., Disp: , Rfl: ??? glipiZIDE XL (Glucotrol XL) 2.5 mg Tablet Extended Rel 24 hr, Take 2.5 mg by mouth daily., Disp:, Rfl: ??? omeprazole (PriLOSEC) 40 mg Capsule, Delayed Release(E.C.), Take 40 mg by mouth daily., Disp: , Rfl: Patient Active Problem List [...] no ischemia at ST III Objective: BP 162/88 (BP Location (NBP): Left arm, Patient Position: Sitting, BP Cuff Sizes: Adult (25-34 cm)) Pulse 67 Ht 177.8 cm (5' 10) Wt 99.8 kg (220 lb) BMI 31.57 kg/m?? Gen: pleasant male in NAD Cor: rrr, s1/s2 of nl character and amplitude, no m/r/g. Estimated RAP not elevated. Carotids with normal upstroke without bruit. Pulm: CTAB. Normal diaphragmatic movement without use of accessory muscles Assessment and Plan: ASCVD (arteriosclerotic cardiovascular disease) Patient symptoms are rewminiscent to him of requiring PCI in the past. Because of the high pre-test probability, qol-limiting symptoms, and being on maximally tolerated therapy, I think the next best step is for coronary lumenography - Anti-Thrombosis: asa 81 - Anti- Lipemic: lipitor 80 - Anti- Anginals: GTN PRN, norvasc 10, coreg 25 - Dx: coronary lumenography +/- pci Hyperpiesia Well controlled on current regimen - norvasc 10 - coreg 25 bid - had s/e to chlorthalidone RTC pending cath results Damián Hart MD Referring for cardiac cath includes management that involves high risk, high complexity decision making. documented in this encounter Miscellaneous Notes Assessment & Plan Note - Damián Hart MD - 01/07/2022 11:15 AM EST Associated Problem(s): Hyperpiesia Well controlled on current regimen - norvasc 10 - coreg 25 bid - had s/e to chlorthalidone Assessment & Plan Note - Damián Hart MD - 01/07/2022 11:14 AM EST Associated Problem(s): ASCVD (arteriosclerotic cardiovascular disease) Patient symptoms are rewminiscent to him of requiring PCI in the past. Because of the high pre-test probability, qol-limiting symptoms, and being on maximally tolerated therapy, I think the next best step is for coronary lumenography - Anti-Thrombosis: asa 81 - Anti- Lipemic: lipitor 80 - Anti- Anginals: GTN PRN, norvasc 10, coreg 25 - Dx: coronary lumenography +/- pci documented in this encounter Plan of Treatment Upcoming Encounters Date Type Specialty Care Team Description 03/25/2022 Anesthesia Event Surgery Catrachita Baez MD [facility] ANESTHESIOLOGY [place], [place] [address] (Wo rk) 12/15/2022 Office Visit Cardiology Damián Hart MD [facility] [place] [address] (Wo rk) 03/25/2050 Hospital Encounter Surgery Citlalli Richardson MD Vocal cord paralysis [facility] OTOLARYNGOLOGY [place], [place] [address] (Wo rk) documented as of this encounter Visit Diagnoses Diagnosis ASCVD (arteriosclerotic cardiovascular d isease) Unspecified cardiovascular disease Hyperpiesia Unspecified essential hypertension Vocal cord paralysis Paralysis of vocal cords or larynx, unsp ecified documented in this encounter Care Teams Packaging Inspector Relationship Specialty Start Date End Date Vladimir Muñoz DO PCP - General Family Medicine 01/19/[address] [place] [id number] documented as of this encounter
--- OUTSIDE RECORDS SUMMARY | 2022-08-05 09:06 | XMS_ITS | Encounter Summary ---
:1955 [place] [address] Care Team Providers Name Role Phone Vladimir Muñoz DO Primary Care Provider Encounter Details Date Type Department Care Team Description 05/28/2020 Telephone Cardiology at [facility] Damián Hart MD [address] [place] [address] [place] [address] [place] [address] (Wo rk) Social History Tobacco [...] this encounter Miscellaneous Notes Telephone Encounter - Azra Man RN - 06/08/2020 4:48 PM EDT Per MD Hart patient to stop metoprolol and start coreg 12.5 mg BID. Nurse spoke with patient who read back order and verbalized understanding. E-script sent to [facility]. Nurse left a message at [facility] to update them on medication change. MD Hart updated Telephone Encounter - Azra Man RN - 06/08/2020 2:28 PM EDT Faviola, from [facility] called us to update us on his blood pressure reading. Patient had called PCP with concerns over leg swelling, Faviola noted we were looking for blood pressure readings and called to update us on patients status thus far. 06/05 150/85 06/06 158/85 06/07 160/80 [id number] Nurse updated [facility] that patient had stopped his chlorthalidone because he felt that he was having anallergic reaction. Faviola will send us office notes and Nurse will update MD Hart, for further recommendations Telephone Encounter - Azra Man RN - 06/01/2020 4:43 PM EDT Per MD [place] patient to keep a BP log for 10-14 readings and then report back to clinic for further management. Nurse spoke with patient who verbalized understanding. Telephone Encounter - Azra Man RN - 05/31/2020 4:47 PM EDT Patient called to update MD Hart that he concerned that he is having a similar reaction to chlorthalidone, that prescribed in place of the lisinopril. Patient reports bilateral ears feel like he has an objection in his ear but there is nothing in it. He also states he had some nausea, so he stopped taking his medication. He started taking chlorthalidone on 05/27/20 and he noticed ear symptoms 05/29/2020. He wants to know what medication he could take instead. Patient also advised to speak to PCP for fruther evaluation regarding his leg edema and injury. Patient verbalized understanding. Nurse will update MD Hart. Telephone Encounter - Sheryl Matthews - 05/31/2020 3:08 PM EDT Patient called and would like a call back @ [phone]. Telephone Encounter - Keke Murcia RN - 05/28/2020 3:10 PM EDT Call placed to [facility] and spoke with customer service Cecy. If the patient uses medical support hose, he has used thigh-high before after a knee surgery. He is receptive to having a proper measurement through [employer] if needed. Reference: phone [phone] and fax [phone]. Call to patient to discuss Dr. Hart' recommendation of compression therapy. Burton is open to this. That plan is on hold, as he shares more information: Burton reminds me he was evaluated in the ER on May 06 for tongue edema. This was attributed to lisinopril, which was stopped. While he was at the ER, the doctor looked down at my legs and was very concerned. Burton had contusions on the morse portion of both legs, at about 12 inches up from plantar surface of his feet. The injury was from walking into a table leaf lying across a doorway to prevent a family pet from walking on newly shampooed carpet. He rammed his shins into the top edge of the wooden table leaf. The right was so much worse than the left. The doctor cleaned the right one all out. He said it was not infected, but to see someone if it gets worse. He says they both look better,but it is the back of the right leg/calf that is all swollen now. He has not followed up with his PCP or other provider about the contusion injury on the legs following the debridement of the right morse at the ER. Clarification: patient previously described the hard swelling of the right thigh. He corrects the information, saying he meant to say right calf. Situation: it is three+ weeks out from contusion injury on bilateral anterior lower legs. The right was worse than the left and was debrided on May 06 at the ER while there to evaluate and treat an adverse side effect of lisinopril. Today patient reports hard edema of the right calf. Telephone Encounter - Keke Murcia RN - 05/28/2020 10:45 AM EDT Called patient for history of furosemide, potassium and the reported leg swelling. Past: furosemide 20 mg oral daily prn ankle swelling and potassium chloride 10 mEq oral daily prn when taking furosemide. This pharmacology plan was removed/discontinued at the November 28, 2019 appointment, as patient was no longer using it; it was no longer needed. This week: patient is experiencing unilateral right thigh swelling. The thigh feels hard but is the same temperature and color as the distal leg and opposite leg. Since it has been very hot and humid and he has been walking and on his feet a lot, this swelling asappeared and is bothersome. He wishes to have as needed doses of furosemide and potassium chloride again. Plan: discussion with Dr. Hart about symptoms and appropriate interventions Telephone Encounter - Sheryl Matthews - 05/28/2020 10:26 AM EDT Patient called because he talked to someone a while ago about his leg swelling. He said he walks a lot. He also mentioned taking potassium chloride with it. He took some furosemide and that seems to help. He will need a script sent to [facility] if it is okay for him to take. Please call him back @ [phone] documented in this encounter Plan of Treatment Upcoming Encounters Date Type Specialty Care Team Description 03/25/2022 Anesthesia Event Surgery Catrachita Baez MD [facility] [place]HES[facility]OLOGY [place], [place] [address] (Wo rk) 12/15/2022 Office Visit Cardiology Damián Hart MD [facility] er [place], [place] [address] (Wo rk) 03/25/2050 Hospital Encounter Surgery Citlalli Richardson MD Vocal cord paralysis [facility] OTOLARYNGOLOGY [place], [place] [address] (Wo rk) documented as of this encounter Visit Diagnoses Not on filedocumented in this encounter Care Teams Real Estate Lawyer Relationship Specialty Start Date End Date Vladimir Muñoz DO PCP - General Family Medicine 01/19/18 [address] [place] [address] documented as of this encounter
--- OUTSIDE RECORDS SUMMARY | 2022-08-05 09:07 | XMS_ITS | Encounter Summary ---
:1955 Author Organization [facility] [place] [address] Care Team Providers Name Role Phone Librado Alvarado MD Primary Care Provider Encounter Details Date Type Department Care Team Description 12/21/2017 Telephone Cardiology at [facility] Benedicto Oconnor Jr., MD [address] [place] [address] [address] [place], [place] [id number] (Wo rk) Social History Tobacco Use Types [...] Notes Telephone Encounter - Courtney Jordan - 12/21/2017 10:33 AM EST appt [facility] 12/22/17 11:00 Pt informed Telephone Encounter - Norma Oconnor RN - 12/21/2017 10:24 AM EST Spoke with pt. Had him increase his metoprolol to 150mg. He understands. Given an appt for 11 am tomorrow. Telephone Encounter - Benedicto Oconnor Jr., MD - 12/21/2017 10:15 AM EST Increase metoprolol to 150 mg a day (1 1/2 pills)- take extra 1/2 today Fit in tomorrow for ov Telephone Encounter - Norma Oconnor RN - 12/21/2017 9:57 AM EST Spoke at great length with pt. States he is having same symptoms as before his stent- SOB, weird feelings in his throat And it is getting worse. He can only walk 100 yards before he develops symptoms and is quite SOB after going up stairs. Telephone Encounter - Courtney Jordan - 12/21/2017 9:06 AM EST Having symptoms as before stent placed Very SOB over weekend. Just feels he needs to be cautious going up stairs or carried 3 10 lb boxes and needed to take a nitro. That worked. documented in this encounter Plan of Treatment Upcoming Encounters Date Type Specialty Care Team Description 03/25/2022 Anesthesia Event Surgery Catrachita Baez MD [facility] ANESTHESIOLOGY [place], [place] [address] (Wo rk) 12/15/2022 Office Visit Cardiology Damián Hart MD [facility] [place], [place] [address] (Wo rk) 03/25/2050 Hospital Encounter Surgery Citlalli Richardson MD Vocal cord paralysis [facility] OTOLARYNGOLOGY [place], [place] [address] (Wo rk) documented as of this encounter Visit Diagnoses Not on filedocumented in this encounter Care Teams Bread Panner Relationship Specialty Start Date End Date Librado Alvarado MD PCP - General 10/08/10 01/18/18 [address] [facility] [address] [place] [address] documented as of this encounter
--- OUTSIDE RECORDS SUMMARY | 2022-08-05 09:07 | XMS_ITS | Encounter Summary ---
:1955 Author Organization [facility] [place] [address] Care Team Providers Name Role Phone Librado Alvarado MD Primary Care Provider Reason for Visit Reason Onset Date Comments Medication Problem 06/05/2017 Encounter Details Date Type Department Care Team Description 06/05/2017 Refill Cardiology at [facility] Gabrilele Mondragon independent [place] [address] Social History Tobacco Use Types Packs/Day Years Used Date Former Smoker Cigarettes Comments: quit at age 17 Alcohol Use [...] this encounter Miscellaneous Notes Telephone Encounter - Chantel Good MD - 06/05/2017 7:05 PM EDT I called him back and discussed rationale for using ISMN (see my letter to Dr. Oconnor dated 06/02). Advised that the CHRISTIANSEN may persist for 5-7 days, but then will frequently dissipate. He will try to continue the drug for the next several days and reassess response to it next week. CHANTEL GOOD MD Telephone Encounter - Gabrielle Mondragon, RN - 06/05/2017 2:07 PM EDT Patient had cardiac catheterization on 06/02/19 which pt states didn't show anything significant despite his symptoms. He was put on Isosorbide and has had a pretty bad headache since starting it 2 daysago. Wanted to know if he should continue the medication. He states the medicine really hasn't helped his other symptoms. Advised patient that he should try taking Tylenol to see if that helps and would send note to Dr. Good for advisement. Pt states his regular General Practice, Dr. Benedicto Oconnor is away x 2 weeks. documented in this encounter Plan of Treatment Upcoming Encounters Date Type Specialty Care Team Description 03/25/2022 Anesthesia Event Surgery Catrachita Baez MD [facility] ANESTHESIOLOGY [place], [place] [address] (Wo rk) 12/15/2022 Office Visit Cardiology Damián Hart MD [facility] [place], [place] [address] (Wo rk) 03/25/2050 Hospital Encounter Surgery Citlalli Richardson MD Vocal cord paralysis [facility] OTOLARYNGOLOGY [place], [place] [address] (Wo rk) documented as of this encounter Visit Diagnoses Not on filedocumented in this encounter Care Teams Foundry Process Engineer Relationship Specialty Start Date End Date Librado Alvarado MD PCP - General 10/08/10 01/18/18 [address] [facility] [address] [place] [address] documented as of this encounter
--- OUTSIDE RECORDS SUMMARY | 2022-08-05 09:07 | XMS_ITS | Encounter Summary ---
:1955 Author Organization [facility] Address [address] [place] [address] Care Team Providers Name Role Phone Librado Alvarado MD Primary Care Provider Reason for Visit Reason Onset Date Comments Other 06/12/2017 nhi believes me dication is giving him headaches Encounter Details Date Type Department Care Team Description 06/12/2017 Telephone Cardiology at [facility] Rigoberto Wyatt MD Other ([facility] medication is Drive DR giving him headaches) [place] [address] CARDIOLOGY DEPT. [phone] [place], [place] [address] (Wo rk) Social History Tobacco [...] this encounter Miscellaneous Notes Telephone Encounter - Tomasz Mcelroy - 06/12/2017 11:24 AM EDT Patient called to state that it seems the medication he is on is causing him daily headaches. He would appreciate a call back at [phone] to discuss possible solutions documented in this encounter Plan of Treatment Upcoming Encounters Date Type Specialty Care Team Description 03/25/2022 Anesthesia Event Surgery Catrachita Baez MD [facility] ANESTHESIOLOGY [place], [place] [address] (Wo rk) 12/15/2022 Office Visit Cardiology Damián Hart MD [facility] [place], [place] [address] (Wo rk) 03/25/2050 Hospital Encounter Surgery Citlalli Richardson MD Vocal cord paralysis [facility] OTOLARYNGOLOGY [place], [place] [address] (Wo rk) documented as of this encounter Visit Diagnoses Not on filedocumented in this encounter Care Teams Train Examiner Relationship Specialty Start Date End Date Librado Alvarado MD PCP - General 10/08/10 01/18/[address] [facility] [address] [place] [address] documented as of this encounter
--- OUTSIDE RECORDS SUMMARY | 2022-08-05 09:07 | XMS_ITS | Encounter Summary ---
:1955 Author Organization [facility] [place] [address] Care Team Providers Name Role Phone Librado Alvarado MD Primary Care Provider Reason for Visit Reason Onset Date Comments Medication Refill 11/11/2017 Encounter Details Date Type Department Care Team Description 11/11/2017 Refill Cardiology at [facility] Benedicto Oconnor Jr., MD Medication Refill [address] [facility] [address] [place] [address] A [phone] [place], [place] [address] (Wo rk) Social History [...] 03/25/2022 Anesthesia Event Surgery Catrachita Baez MD [facility] ANESTHESIOLOGY [place], [place] [address] (Wo rk) 12/15/2022 Office Visit Cardiology Damián Hart MD [facility] [place], [place] [address] (Wo rk) 03/25/2050 Hospital Encounter Surgery Citlalli Richardson MD Vocal cord paralysis [facility] OTOLARYNGOLOGY [place], [place] [address] (Wo rk) documented as of this encounter Visit Diagnoses Not on filedocumented in this encounter Care Teams Vehicle Controls Engineer Relationship Specialty Start Date End Date Librado Alvarado MD PCP - General 10/08/10 01/18/18 [address] [facility] [address] [place] [address] documented as of this encounter
--- OUTSIDE RECORDS SUMMARY | 2022-08-05 09:07 | XMS_ITS | Encounter Summary ---
:1955 Author Organization [facility] [place] [address] Care Team Providers Name Role Phone Librado Alvarado MD Primary Care Provider Reason for Visit Reason Onset Date Comments Medication Refill 03/19/2017 Encounter Details Date Type Department Care Team Description 03/19/2017 Telephone Cardiology at [facility] Benedicto Oconnor Jr., MD Medication Refill [address] [place] [address] [place] [address] [phone] (Wo rk) Social History Tobacco Use Types [...] Telephone Encounter - Shania Montenegro RN - 03/19/2017 1:58 PM EDT Baljinder Peralta Telephone Encounter - Sheryl Matthews - 03/19/2017 1:17 PM EDT Patient called because his dosage of metoprolol was changed from 50 mg to 75 mg. However, on his automatic refill he only got 30 days. Can he get a 90 day supply? Please call him at [phone]. 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
--- OUTSIDE RECORDS SUMMARY | 2022-08-05 09:07 | XMS_ITS | Encounter Summary ---
:1955 Author Organization [facility] [place] [address] Care Team Providers Name Role Phone Librado Alvarado MD Primary Care Provider Encounter Details Date Type Department Care Team Description 05/25/2017 Telephone Cardiology at [facility] Norma Oconnor RN [address] [place] [address] Social History Tobacco Use Types Packs/Day [...] Notes Telephone Encounter - Courtney Jordan - 05/25/2017 9:58 AM EDT Added to today schedule 05/25/17 2:40 pm pt informed Telephone Encounter - Norma Oconnor RN - 05/25/2017 9:26 AM EDT Spoke with Avelina at cardiac rehab. States that she increased pt's workout on treadmill and after three minutes he was SOB and had tightness in his throat. After one minute symptoms went away. Informed Dr. Oconnor and we will fit pt in this week. Called pt. Gave him an appt today at 2:30 - precath. Told him to take it easy. documented in this encounter Plan of Treatment Upcoming Encounters Date Type Specialty Care Team Description 03/25/2022 Anesthesia Event Surgery Catrachita Baez MD [facility] ANESTHESIOLOGY [place], [place] [address] (Wo rk) 12/15/2022 Office Visit Cardiology Damián Hart MD [facility] [place], [place] [address] (Wo rk) 03/25/2050 Hospital Encounter Surgery Citlalli Richardson MD Vocal cord paralysis [facility] OTOLARYNGOLOGY [place], [place] [address] (Wo rk) documented as of this encounter Visit Diagnoses Not on filedocumented in this encounter Care Teams Classified Advertising Manager Relationship Specialty Start Date End Date Librado Alvarado MD PCP - General 10/08/10 01/18/18 [address] [facility] 11 [place] [address] documented as of this encounter
--- OUTSIDE RECORDS SUMMARY | 2022-08-05 09:07 | XMS_ITS | Encounter Summary ---
:1955 Author Organization [facility] [place] [address] Care Team Providers Name Role Phone Librado Alvarado MD Primary Care Provider Encounter Details Date Type Department Care Team Description 06/17/2017 Telephone Cardiology at [facility] Benedicto Oconnor Jr., MD [address] [place] [address] [place], [place] [id number] (Wo rk) Social History Tobacco Use Types [...] this encounter Miscellaneous Notes Telephone Encounter - Benedicto Oconnor Jr., MD - 06/17/2017 5:23 PM EDT No chest pain but has headache Advised to cut isosorbide to 1/2 pill (15 mg) If he continues to have headaches after 4-5 days will consider switch to ranolazine He should resume cardiac rehab Telephone Encounter - Kenroy Valdes RN - 06/17/2017 4:46 PM EDT Spoke with patient, he reports that he continues to have headaches shortly after taking his Isosorbide. He was hoping that the headaches would subside after around 2 weeks, but they ave persisted and he was wondering if there was another option he could try? Telephone Encounter - Sheryl Matthews - 06/17/2017 4:41 PM EDT Patient is calling because after his cath he was prescribed a medication that is giving him headaches. Please call him back at [phone] documented in this encounter Plan of Treatment Upcoming Encounters Date Type Specialty Care Team Description 03/25/2022 Anesthesia Event Surgery Catrachita Baez MD [facility] ANESTHESIOLOGY [place], [place] [address] (Wo rk) 12/15/2022 Office Visit Cardiology Damián Hart MD [facility] [place], [place] [address] (Wo rk) 03/25/2050 Hospital Encounter Surgery Citlalli Richardson MD Vocal cord paralysis [facility] OTOLARYNGOLOGY [place], [place] [address] (Wo rk) documented as of this encounter Visit Diagnoses Not on filedocumented in this encounter Care Teams Mobile Paramedical Examiner Relationship Specialty Start Date End Date Librado Alvarado MD PCP - General 10/08/10 01/18/18 [address] [facility] [address] [place] [address] documented as of this encounter
--- OUTSIDE RECORDS SUMMARY | 2022-08-05 09:07 | XMS_ITS | Encounter Summary ---
:1955 Author Organization [facility] [place] [address] Care Team Providers Name Role Phone Librado Alvarado MD Primary Care Provider Encounter Details Date Type Department Care Team Description 04/27/2017 Telephone Cardiology at [facility] Benedicto Oconnor Jr., MD [address] [place] [address] [place] [address] [place] [address] [phone] (Wo rk) Social History Tobacco Use Types [...] Telephone Encounter - Shania Montenegro RN - 04/27/2017 2:08 PM EDT Orders ready to go Telephone Encounter - Sheryl Matthews - 04/27/2017 1:44 PM EDT Page @ [facility] would like orders for this patient. documented in this encounter Plan of Treatment Upcoming Encounters Date Type Specialty Care Team Description 03/25/2022 Anesthesia Event Surgery Catrachita Baez MD [facility] ANESTHESIOLOGY [place], [place] [address] (Wo rk) 12/15/2022 Office Visit Cardiology Damián Hart MD [facility] [place], [place] [address] (Wo rk) 03/25/2050 Hospital Encounter Surgery Citlalli Richardson MD Vocal cord paralysis [facility] OTOLARYNGOLOGY [place], [place] [address] (Wo rk) documented as of this encounter Visit Diagnoses Not on filedocumented in this encounter Care Teams Fence Installer Relationship Specialty Start Date End Date Librado Alvarado MD PCP - General 10/08/10 01/18/[address] [facility] [address] [place] [address] documented as of this encounter
--- OUTSIDE RECORDS SUMMARY | 2022-08-05 09:07 | XMS_ITS | Encounter Summary ---
:1955 Author Organization [facility] [place] [address] Care Team Providers Name Role Phone Librado Alvarado MD Primary Care Provider Encounter Details Date Type Department Care Team Description 06/23/[address] [facility] Benedicto Oconnor Jr., MD [address] [place] [address] [place] [address] [place], [place] [id number] (Wo rk) Social History Tobacco Use Types [...] Telephone Encounter - Kenroy Valdes RN - 06/23/2017 3:55 PM EDT Called patient and let him know. Telephone Encounter - Benedicto Oconnor Jr., MD - 06/23/2017 3:19 PM EDT Stop isosorbide Telephone Encounter - Ynes Russell RN - 06/23/2017 1:13 PM EDT Patient called - he is still getting headaches on the decreased dose of isosorbide almost on a dailybasis. He takes some Tylenol when he first feels it & that helps. He also says he has noticed that he sometimes feels as though he isn't getting quite enough air, especially if he is laying down. He doesn't feel anymore SOB when he is up & about. Telephone Encounter - Ynes Russell RN - 06/23/2017 1:04 PM EDT Left message to return my call. documented in this encounter Plan of Treatment Upcoming Encounters Date Type Specialty Care Team Description 03/25/2022 Anesthesia Event Surgery Catrachita Baez MD [facility] ANESTHESIOLOGY [place], [place] [address] (Wo rk) 12/15/2022 Office Visit Cardiology Damián Hart MD [facility] [place], [place] [address] (Wo rk) 03/25/2050 Hospital Encounter Surgery Citlalli Richardson MD Vocal cord paralysis [facility] OTOLARYNGOLOGY [place], [place] [address] (Wo rk) documented as of this encounter Visit Diagnoses Not on filedocumented in this encounter Care Teams Bilingual Counter Sales Retail Relationship Specialty Start Date End Date Librado Alvarado MD PCP - General 10/08/10 01/18/18 [address] [facility] [address] [place] [id number] documented as of this encounter
--- OUTSIDE RECORDS SUMMARY | 2022-08-05 09:07 | XMS_ITS | Encounter Summary ---
:1955 Author Organization [facility] [place] [address] Care Team Providers Name Role Phone Librado Alvarado MD Primary Care Provider Encounter Details Date Type Department Care Team Description 06/05/[address] [facility] Benedicto Oconnor Jr., MD [address] [place] [address] [place] [address] [phone] (Wo rk) Social History Tobacco Use Types [...] Telephone Encounter - Kenroy Valdes RN - 06/05/2017 8:43 AM EDT Spoke with patient, he reports he is feeling well except for a terrible headache. Let him know is away on vacation and he will have to call the Cardiologists at and discuss with them. Patient agreeable and will call them. Telephone Encounter - Sheryl Matthews - 06/05/2017 8:38 AM EDT Had a cath at and they put him on a long acting nitro. He is having headaches all day long. Is there anything else he can use? Please call him back at [phone]. documented in this encounter Plan of Treatment Upcoming Encounters Date Type Specialty Care Team Description 03/25/2022 Anesthesia Event Surgery Catrachita Baez MD [facility] ANESTHESIOLOGY [place], [place] [address] (Wo rk) 12/15/2022 Office Visit Cardiology Damián Hart MD [facility] [place], [place] [address] (Wo rk) 03/25/2050 Hospital Encounter Surgery Citlalli Richardson MD Vocal cord paralysis [facility] OTOLARYNGOLOGY [place], [place] [address] (Wo rk) documented as of this encounter Visit Diagnoses Not on filedocumented in this encounter Care Teams Weather Strip Installer Relationship Specialty Start Date End Date Librado Alvarado MD PCP - General 10/08/10 01/18/18 [address] [facility] [address] [place] [address] documented as of this encounter
--- OUTSIDE RECORDS SUMMARY | 2022-08-05 09:07 | XMS_ITS | Encounter Summary ---
:1955 Author Organization [facility] [place] [address] Care Team Providers Name Role Phone Librado Alvarado MD Primary Care Provider Encounter Details Date Type Department Care Team Description 03/18/2017 Telephone Cardiology at [facility] Benedicto Oconnor Jr., MD [address] [place] [address] [place] [address] [phone] (Wo rk) Social History Tobacco Use Types [...] Notes Telephone Encounter - Courtney Jordan - 03/18/2017 11:48 AM EDT aappt scheduled 04/02/17 10:30 am pt informed Telephone Encounter - Benedicto Oconnor Jr., MD - 03/18/2017 8:20 AM EDT Needs follow up 2 weeks documented in this encounter Plan of Treatment Upcoming Encounters Date Type Specialty Care Team Description 03/25/2022 Anesthesia Event Surgery Catrachita Baez MD [facility] ANESTHESIOLOGY [place], [place] [address] (Wo rk) 12/15/2022 Office Visit Cardiology Damián Hart MD [facility] [place], [place] [address] (Wo rk) 03/25/2050 Hospital Encounter Surgery Citlalli Richardson MD Vocal cord paralysis [facility] OTOLARYNGOLOGY [place], [place] [address] (Wo rk) documented as of this encounter Visit Diagnoses Diagnosis ASCVD (arteriosclerotic cardiovascular d isease) Unspecified cardiovascular disease Vocal cord paralysis Paralysis of vocal cords or larynx, unsp ecified documented in this encounter Care Teams Rate Analyst Relationship Specialty Start Date End Date Librado Alvarado MD PCP - General 10/08/10 01/18/18 [address] [facility] [address] [place] [address] documented as of this encounter
--- OUTSIDE RECORDS SUMMARY | 2022-08-05 09:07 | XMS_ITS | Encounter Summary ---
:1955 Author Organization [facility] [place] [address] Care Team Providers Name Role Phone Librado Alvarado MD Primary Care Provider Reason for Visit Reason Comments Follow-up f/u after cath, no intervent ions, no SOB, no CP Encounter Details Date Type Department Care Team Description 07/09/2017 Office Visit Cardiology at Benedicto Oconnor ASCVD (mitchel Gallardo Jr., MD cardiovascular disease) [address] [address] [phone] Social History Tobacco Use Types Packs/Day Years [...] Sign Reading Time Taken Comments Blood Pressure 118/60 07/09/2017 11:55 AM EDT Pulse 68 07/09/2017 11:55 AM EDT Temperature - - Respiratory Rate - - Oxygen Saturation - - Inhaled Oxygen Concentration - - Weight 96.6 kg (213 lb) 07/09/2017 11:55 AM EDT Height 182.9 cm (6') 07/09/2017 11:55 AM EDT Body Mass Index 28.89 07/09/2017 11:55 AM EDT documented in this encounter Progress Notes Benedicto Oconnor Jr., MD - 07/09/2017 11:40 AM EDT Subjective: Patient ID: Burton Mcnair Jr. is a 62 y.o. male. Chief Complaint Patient presents with ??? Follow-up f/u after cath, no interventions, no SOB, no CP HPI He has gradually felt better since the cath and is back to his normal level of activity without chest pain or limiting dyspnea. He did not tolerate isosorbide due to headache. He denies other issues Review of Systems no bruising or bleeding No Known Allergies Current Outpatient Prescriptions Medication Sig Dispense Refill ??? meTOPROLOL succinate (TOPROL-XL) 50 mg Tablet Sustained Release 24 hr Take 2 tablets by mouth daily. 135 tablet 3 ??? amLODIPine (NORVASC) 10 mg Tablet Take 1 tablet by mouth daily. 90 tablet 3 ??? atorvastatin (LIPITOR) 80 mg Tablet Take 1 tablet by mouth daily. 90 tablet 3 ??? clopidogrel (PLAVIX) 75 mg Tablet take 1 tablet by mouth once daily 0 ??? nitroGLYcerin (NITROSTAT) 0.4 mg Tablet, Sublingual Place 1 tablet under the tongue every 5 minutes as needed for Chest pain. 25 tablet 12 ??? aspirin 81 mg Tablet, Delayed Release [...] Trial of isosorbide- stopped due to headache Objective: Physical Exam BP 118/60 (BP Location (NBP): Left arm, Patient Position: Sitting) Pulse 68 Ht 182.9 cm (6') Wt 96.6 kg (213 lb) BMI 28.89 kg/m2 NAD No JVD/HJR Chest clear Cor RR, no murmur Abd benign Ext no edema Assessment and Plan: Symptoms have improved again- may be symptoms worsened when the CCX went from 99% to 100%, then improved with progressive growth of collaterals. If he has worsening symptoms again may try ranolazine. For now keep meds the same and continue exercise as is Follow up 4 months documented in this encounter Plan of Treatment Upcoming Encounters Date Type Specialty Care Team Description 03/25/2022 Anesthesia Event Surgery Catrachita Baez MD [facility] ANESTHESIOLOGY [place], [place] [address] (Wo rk) 12/15/2022 Office Visit Cardiology Damián Hart MD [facility] [place] [address] (Wo rk) 03/25/2050 Hospital Encounter Surgery Citlalli Richardson MD Vocal cord paralysis [facility] OTOLARYNGOLOGY [place], [place] [address] (Wo jaya) documented as of this encounter Visit Diagnoses Diagnosis ASCVD (arteriosclerotic cardiovascular d isease) Unspecified cardiovascular disease Vocal cord paralysis Paralysis of vocal cords or larynx, unsp ecified documented in this encounter Care Teams Dairy Processing Supervisor Relationship Specialty Start Date End Date Librado Alvarado MD PCP - General 10/08/10 01/18/[address] [address] documented as of this encounter
--- OUTSIDE RECORDS SUMMARY | 2022-08-05 09:07 | XMS_ITS | Encounter Summary ---
:1955 Author Organization [facility] [place] [address] Care Team Providers Name Role Phone Librado Alvarado MD Primary Care Provider Reason for Visit Auth/Cert Specialty Diagnoses / Procedures Referred By Contact Refer red To Contact Diagnoses ASCVD (arteriosclerotic cardiovascular disease) ASCVD Procedures PRO CATH PLMT LEFT HEART CATH & ARTS W/INJ & ANGIO IMG S&I CARDIAC CATHETERIZATION Referral ID Status Reason Start Date Expiration Date Visits Requ ested Visits Authorized [id number] 1 1 Encounter Details Date Type Department Care Team Description 06/02/2017 Surgery Barytes Grinder Jessie Arias MD CARDIAC CATHETERIZATION [facility] [address] [place] [address] [place] [id number] (Wo rk) Social History Tobacco Use Types [...] Sign Reading Time Taken Comments Blood Pressure 132/84 06/02/2017 10:36 AM EDT Pulse 78 06/02/2017 10:36 AM EDT Temperature 36.4 ??C (97.5 ??F) 06/02/2017 10:36 AM EDT Respiratory Rate 16 06/02/2017 10:36 AM EDT Oxygen Saturation 97% 06/02/2017 10:36 AM EDT Inhaled Oxygen Concentration - - Weight - - Height - - Body Mass Index - - documented in this encounter Discharge Instructions Discharge InstructionsGala Canchola RN - 06/02/2017 5:19 PM EDT 1. You have received medication before and/or during your procedure, which affects judgment and reaction time. 2. Do not drive, operate machinery, drink alchololic beverages, or make important decisions for 24 hours. 3. Be careful on stairs, as you may be unsteady on your feet. 4. You may eat a regular diet as tolerated. 5. Do not smoke if you are alone. 6. IV site- slight redness or tenderness is normal, you can use warm compresses. If tenderness and redness increases or foul drainage occours, please contact your M.D. Activity If you are discharged the same day as your procedure, do not drive yourself home. Arrange to have another person drive. You may walk around when you get home, but keep your activity at a minimum until the morning. Do not bend over, strain, or lift heavy objects for 24 hours after the procedure. Do not participatein active sports for 48 hours. You may engage in sexual activity after 48 hours. These restrictions will not apply if the catheter was placed in a blood vessel in your arm. Catheter Insertion Area Care Take the band-aid off the catheter insertion area the morning following the procedure. You may take a shower if you wish. Wash the area with soap and water. Look for signs of infection over the next several days. A little spot of blood at the catheter insertion area is not unusual. A bruise or small lump under the skin is normal; they generally disappear in 3-4 days. For the first several days at home if you cough or sneeze, hold your groin to help prevent bleeding. Expect some mild tenderness over the area where the catheter was inserted. You will notice this after the local anesthetic (numbing medicine) wears off. This should improve during the 24-48 hours afterthe procedure. Take tylenol if needed. Contact your doctor if the discomfort worsens. Problems to Watch For If there is bright red blood flowing from the catheter insertion area: *stop what you are doing and lie down *Hold pressure steadily on the area for 15 minutes *Call for Help *If the bleeding does not stop in 15 minutes call 911 for an ambulance. If there is swelling with black and blue color at the catheter insertion area, there may be bleeding inside. Contact the doctor if there is any increase in size. Look at the insertion site for the first few days at home. Signs of infection are: *redness *Swelling *Yellow, white, green or brown foul smelling drainage. *increased soreness If you think there is an infection, take your temperature. Then call your doctor. The limb on the side where you had your catheterization should look and feel normal in its color, sensation, and temperature. If your leg becomes cool, pale, blue or changing color with numbness and tingling, contact your doctor. If you feel faint or dizzy, lie down with your feet elevated. Have someone call the doctor. If you are alert, drink fluids. How to Deal with Chest pain If you had only the cardiac catheterization, treat any angina or chest discomfort as instructed. Stop what you are doing, and sit or lie down. If prescribed, take nitroglycerin under your tongue. If the angina isn't relieved, take another nitroglycerine in 5 minutes. After another 5 minutes, a third ni troglycerine may be taken. If the angina isn't improved you should call for an ambulance to bring you to the nearest hospital emergency room. If your angina is more frequent or more sever than before, contact your doctor. We usually would not expect to have angina after an angioplasty. If you do get angina, treat it as you did before but also contact your doctor. Return to Work The doctor will usually have told you when to return to work. If you do not perform heavy physical labor, most people can return to work in a few days. Diet Follow your previous diet unless otherwise instructed. Cardiac Risk Factors If you have coronary artery disease, it is important that you help control it by reducing your cardiac risk factors. If you smoke, we urge you to stop now. If you think this is going to be a problem, let us know so that we may help you. We have dieticians who can help you learn about low fat, low cholesterol diet. Cardiac rehabilitation programs can help you set up a regular exercise program. Work with your doctor if you have high blood pressure or sugar diabetes to keep these under control. Medications ____Take your usual medications ____Medication changes: If you are taking medicines prescribed by your doctor, do not take any qvur-rvp-erwdyfa medicines orherbal preparations without first discussing this with your doctor or pharmacist. There is the possibility of side effect and interactions when these are combined. Follow up Care Who to Call with Questions or Problems If there are any questions or problems that you think might be related to your cardiac cath or angioplasty, contact the bobbin stripper electrical parts reconditioner by calling [facility] at . documented in this encounter Medications at Time of Discharge Medication Sig Dispensed Refills Start Date End Date aspirin 81 mg Tablet, Take 162 mg by mouth 0 Delayed Release (E.C.) daily. Increased by neurologist metFORMIN (GLUCOPHAGE) Take 1,000 mg by 0 1,000 mg Tablet mouth 2 times daily (with meals). isosorbide mononitrate Take 1 tablet by 30 tablet 12 017 06/17/2017 (IMDUR) 30 mg Tablet mouth daily. Sustained Release 24 Indications: Chronic hrIndications: Chronic Stable Angina Stable Angina Pectoris Pectoris ONETOUCH ULTRA TEST TEST three times a 0 05/12/20 17 07/09/2017 Strip day ONETOUCH ULTRAMINI Kit use as directed 0 05/12/20 17 07/09/2017 ONE TOUCH DELICA 33 TEST three times a 0 05/12/20 17 07/09/2017 gauge Misc day meTOPROLOL succinate Take 2 tablets by 135 tablet 3 05/22/20 17 08/25/2017 (TOPROL-XL) 50 mg Tablet mouth daily. Sustained Release 24 hrIndications: Atherosclerosis of kaibab coronary artery with angina pectoris, unspecified whether kaibab or transplanted heart amLODIPine (NORVASC) 10 Take 1 tablet by 90 tablet 3 201601/24/2019 mg Tablet mouth daily. atorvastatin (LIPITOR) Take 1 tablet by 90 tablet 3 017 01/24/2019 80 mg Tablet mouth daily. clopidogrel (PLAVIX) 75 take 1 tablet by 0 201501/24/2019 mg Tablet mouth once daily nitroGLYcerin Place 1 tablet under 25 tablet 12 09/19/2016 1 01/12/2017 (NITROSTAT) 0.4 mg the tongue every 5 Tablet, Sublingual minutes as needed for Chest pain. lisinopril Take 40 mg by mouth 0 01/24 (PRINIVIL;ZESTRIL) 40 mg daily. Tablet documented as of this encounter Progress Notes Jair Haque RN - 06/02/2017 3:32 PM EDT DEFINE PCI Consent Note Define PCI a clinical trial to evaluate the importance and predictive value of iFR in PCI, both preand post coronary intervention PI: Rigoberto Wyatt MD Pager# [phone] Consent: I met with Mr. Mcnair and reviewed the Define PCI trial. Following determination that Mr. Mcnairdid not have any obvious evidence of clinical exclusion to the Define PCI trial, Burton was provided a copy of the written consent form. The purpose, procedures, risks, potential benefits of the study, as well as alternatives to participation were discussed with Burton. After having time to review and have all questions answered, Mr. Mcnair signed the consent form agreeing to participate, provided angiographic criteria were satisfied. Burton was provided with a copy of the signed consent form. No study related activities were performed prior to the completion of the consent process. In the cardiac catheterization Mr. Mcnair satisfied angiographic inclusion criteria. iFR of targetlesions proved to be negative and this qualifies as screen fail and Mr Mcnair was not enrolled in the define PCI trial. documented in this encounter H&P Notes Anna Jamil MD - 06/02/2017 1:13 PM EDT Burton Mcnair Jr. is a 62 y.o. male referred for cardiac catheterization by Dr. Oconnor for evaluation of worsening BARRON and chest tightness. There have not been any changes in health status since last seen in clinic. No fevers, no chills, no bleeding. Outpatient Prescriptions Marked as Taking for the 06/02/17 encounter (Hospital Encounter) Medication Sig Dispense Refill ??? ONETOUCH ULTRA TEST Strip TEST three times a day 0 ??? ONETOUCH ULTRAMINI Kit use as directed 0 ??? ONE TOUCH DELICA 33 gauge Misc TEST three times a day 0 ??? meTOPROLOL succinate (TOPROL-XL) 50 mg Tablet [...] Tablet Take 40 mg by mouth daily. BP 132/84 Pulse 78 Temp 36.4 ??C (97.5 ??F) (Oral) Resp 16 SpO2 97% PE NAD CV: RRR, S1 S2 physiologic, JVP estimated @ cm H2O Pulm: CTAB, no w/r/r Abd: soft, NT, ND, +BS, no bruits Vasc: 2+ bilat radial with favorable Santi's test on the R, 2+ bilat femoral pulses w/o bruits, 2+ bilat DP pulses Extr: wwp, no edema Labs reviewed and notable for: Lab Results Component Value Date WBC 5.3 06/02/2017 HGB 14.7 06/02/2017 HCT 40.9 06/02/2017 MCV 87.2 06/02/2017 PLATELET 152 06/02/2017 Lab Results Component Value Date CREATININE 0.74 (L) 06/02/2017 BUN 10 06/02/2017 NA 138 06/02/2017 K 4.4 06/02/2017 CL 97 (L) 06/02/2017 CO2 26 06/02/2017 Lab Results Component Value Date INR 1.0 06/02/2017 A/P 62 y.o. male here for cardiac catheterization. - proceed as planned - consent signed - no obvious CI to DAPT - FULL code documented in this encounter Plan of Treatment Upcoming Encounters Date Type Specialty Care Team Description 03/25/2022 Anesthesia Event Surgery Catrachita Baez MD [facility] ANESTHESIOLOGY [place], [place] [address] (Wo rk) 12/15/2022 Office Visit Cardiology Damián Hart MD [facility] [place], [place] [address] (Wo rk) 03/25/2050 Hospital Encounter Surgery Citlalli Richardson MD Vocal cord paralysis [facility] OTOLARYNGOLOGY [place], [place] [address] (Wo rk) documented as of this encounter Procedures Procedure Name Priority Date/Time Associated Comments Diagnosis POCT GLUCOSE Routine 06/02/2017 3:40 PM Results f or this EDT procedure are i n the results section. POCT GLUCOSE Routine 06/02/2017 10:33 Results for this AM EDT procedure are i n the results section. BMP W/FASTING GLUCOSE STAT 06/02/2017 10:18 Re sults for this AM EDT procedure are i n the results section. HEMOGRAM Routine 06/02/2017 10:18 Results for this AM EDT procedure are i n the results section. DIFFERENTIAL, Routine 06/02/2017 10:18 Results fo r this AUTOMATED AM EDT procedure are i n the results section. APTT Routine 06/02/2017 10:18 Results for this AM EDT procedure are i n the results section. PROTHROMBIN TIME Routine 06/02/2017 10:18 Results for this AM EDT procedure are i n the results section. documented in this encounter Results POCT Glucose (06/02/2017 3:40 PM EDT) P athologist Signature POC Glucose 168 65 - 199 [place] mg/dL [facility] Comment: Supplemental ranges: <140 mg/dL before meals <180 mg/dL all other times of the day Specimen Anatomical Collection Method Collection Time Receive d Time (Source) Location / / Volume Laterality Blood specimen 06/02/2017 3:40 PM 017 3:40 (specimen) EDT PM EDT Rigoberto Wyatt MD POINT OF CARE TEST ORDERABLE S Performing Organization Address City/[facility]/ZIP Code Phon e Number [address] POCT Glucose (06/02/2017 10:33 AM EDT) P athologist Signature POC Glucose 166 65 - 199 [place] mg/dL [facility] Comment: Supplemental ranges: <140 mg/dL before meals <180 mg/dL all other times of the day Specimen Anatomical Collection Method Collection Time Receive d Time (Source) Location / / Volume Laterality Blood specimen 06/02/2017 10:33 7 (specimen) AM EDT 10:33 AM EDT Rigoberto Wyatt MD POINT OF CARE TEST ORDERABLE S Performing Organization Address City/State/ZIP Code Phon e Number [address] Prothrombin Time (06/02/2017 10:18 AM EDT) P athologist Signature PT 13.9 12.0 - 15.0 [facility] LABORATORY Comment: An INR <2.0 indicates adequate [...] be appropriate depending on c linical circumstances. INR 1.0 0.9 - 1.1 [facility] LABORATORY Specimen Anatomical Collection Method Collection Time Receive d Time (Source) Location / / Volume Laterality Blood specimen Venous Draw / 06/02/2017 10:18 06/02/20 17 (specimen) Unknown AM EDT 10:22 AM EDT Resulting Agency Comment Spec In Lab Benedicto Oconnor Jr., MD HEMATOLOGY ORDERABLES Performing Organization Address City/[facility]/ZIP Code Phon e Number [place] [phone] [facility] [address] APTT (06/02/2017 10:18 AM EDT) athologist Signature PTT 27 25 - 35 sec [facility] Comment: The recommended therapeutic range for fu ll dose, unfractionated heparin at [facility] is 80 ? 114 seconds. The use of the anti-Xa (heparin) level rather than the PTT is recommended for monitoring anticoagul ation intensity in critically ill patients receiving unfractionated hepari n by continuous IV infusion. Specimen Anatomical Collection Method Collection Time Receive d Time (Source) Location / / Volume Laterality Blood specimen Venous Draw / 06/02/2017 10:18 06/02/20 17 (specimen) Unknown AM EDT 10:22 AM EDT Resulting Agency Comment Spec In Lab Benedicto Oconnor Jr., MD HEMATOLOGY ORDERABLES Performing Organization Address [facility] [place] [address] [facility] [address] Differential, Automated (06/02/2017 10:18 AM EDT) athologist Signature Neutrophils % 68.0 % [facility] LABORATORY Neutr Abs (ANC) 3.59 1.70 - [place] 6.10 [facility] x10(3)/[facility] LABORATORY Lymphocytes % 21.2 % [facility]OR[facility] Lymphocytes Abs 1.1 0.9 - 3.2 [place] x10(3)/[facility] LABORATORY Monocytes % 7.4 % [facility]OR[facility]ORY Monocyte Abs 0.4 0.3 - 0.9 [place] x10(3)/[facility] LABORATORY Eosinophils % 2.1 % [facility] LABORATORY Eosinophils Abs 0.1 0.0 - 0.4 [place] x10(3)/[facility] LABORATORY Basophils % 0.9 % [facility] LABOR[facility]ORY Basophils Abs 0.0 0.0 - 0.1 [place] x10(3)/[facility] LABORATORY Immature Gran % 0.40 % [facility] Comment: Immature granulocytes(IG's)percentage an d absolute count will include metamyelocytes, myelocytes, and promyelo cytes. Blood smears from CBCs yielding IG's will be scanned manually for concor dance. If this scan disagrees with the automated IG or if promyelocytes are not ed, a manual differential will be performed. Nikole Gran Abs 0.02 0.00 - 0.04 x10(3)/[facility] MAR Y [facility] LABORATORY Specimen Anatomical Collection Method Collection Time Receive d Time (Source) Location / / Volume Laterality Blood specimen Venous Draw / 06/02/2017 10:18 06/02/20 17 (specimen) Unknown AM EDT 10:22 AM EDT Resulting Agency Comment Spec In Lab Benedicto Oconnor Jr., MD HEMATOLOGY ORDERABLES Performing Organization Address City/State/ZIP Code Phon e Number [place] [phone] [address] (ABNORMAL) Hemogram (06/02/2017 10:18 AM EDT) Analysis Performed At Patho logist Time Signature WBC 5.3 4.0 - 9.5 [place] x10(3)/[facility] LABORATORY RBC 4.69 4.58 - [place] 5.54 [facility] x10(6)/[facility] LABORATORY Hemoglobin 14.7 13.7 - [facility] 16.5 gm/dL [facility] Hematocrit 40.9 40.5 - [facility] 48.5 % [facility] MCV 87.2 82.9 - [facility] 93.1 [facility] LABORATORY MCH 31.3 27.5 - [facility] 32.1 pg [facility] LABORATORY MCHC 35.9 (H) 32.0 - [place] 35.7 gm/dL [facility] LABORATORY Platelets 152 145 - 357 [place] x10(3)/[facility] LABORATORY RDWSD 37.2 36.0 - [facility] 45.0 [facility] LABORATORY RDWCV 11.7 11.4 - [facility] 13.8 % [facility] LABORATORY MPV 9.3 7.6 - 12.9 [facility] LABORATORY nRBC % Auto 0.0 % [facility] LABORATORY nRBC Abs Auto 0.000 0.000 - [place] 0.000 [facility] x10(3)/[facility] LABORATORY Specimen Anatomical Collection Method Collection Time Receive d Time (Source) Location / / Volume Laterality Blood specimen Venous Draw / 06/02/2017 10:18 06/02/20 17 (specimen) Unknown AM EDT 10:22 AM EDT Resulting Agency Comment Spec In Lab Benedicto Oconnor Jr., MD HEMATOLOGY ORDERABLES Performing Organization Address City/State/[place] [address] (ABNORMAL) BMP w/fasting Glucose (06/02/2017 10:18 AM EDT) athologist Signature Glucose 198 (H) 65 - 99 [place] Fasting mg/dL [facility] Comment: ?Fasting* Glucose Interpretive C riteria Normal ?65-99 mg/dL Impaired Fasting glucose ?100-125 mg/dL Consistent with Diabetes Mellitus ? >or= 126 mg/dL *Fasting is defined as no caloric intake for at least 8 hours In the absence of unequivocal hypergly cemia a plasma glucose value of >or= 126 mg/dL should be repeated on a subseq uent day. Diagnosis and Classification of Diabetes Mellitus, Position Statement from the [place] [employer]. ??Diabete s Care, Volume 33, Supplement 1, Nov 2009 BUN 10 10 - 20 mg/dL [facility] Creatinine 0.74 (L) 0.80 - 1.50 mg/dL [facility] Comment: Please note that the pediatric reference intervals supplied above were not validated at [facility]. Results from pediatri c patients should be interpreted in conjunction to the patient's age, height and muscle mass. Sodium 138 135 - 145 mmol/L [facility] Potassium 4.4 3.5 - 5.0 mmol/L [facility] Comment: Please note: ??Patients with WBC >100,00 0 may have falsely elevated Potassium levels. ??For accurate Potassium quantif ication in these patients send serum separator tube (gold top) for subsequent determinations. ??Contact the Clinical Chemistry Laboratory if there are any qu estions. Chloride 97 (L) 98 - 107 mmol/L [facility] CO2 26 22 - 31 mmol/L [facility] Anion Gap 15 5 - 15 mmol/L [facility] Calcium 9.8 8.5 - 10.5 mg/dL [facility] Estimated GFR >60 >=60 [facility] Comment: This estimated GFR (eGFR) value was calc ulated using the MDRD equation which has been validated on patients between t he ages of 18 and 70. The MDRD should not be used to assess kidney function in patients < 18 years of age or in patients with extremes of body mass, or in patients with acute kidney failure. This value should be multiplied by 1.2 f or patients. For further information please copy and past e the following links into your internet browser. [email or web address] Specimen Anatomical Collection Method Collection Time Receive d Time (Source) Location / / Volume Laterality Blood specimen 06/02/2017 10:18 7 (specimen) AM EDT 10:22 AM EDT Resulting Agency Comment Spec In Lab Benedicto Oconnor Jr., MD CHEMISTRY ORDERABLES Performing Organization Address City/State/[place] [address] documented in this encounter Visit Diagnoses Diagnosis Chest pain, unspecified type ASCVD (arteriosclerotic cardiovascular d isease) Unspecified cardiovascular disease Diabetes mellitus without complication Type II or unspecified type diabetes nakul litus without mention of complication, not stated as uncontrolled Encounter for preprocedural laboratory e xamination Pre-procedural laboratory examination ASCVD (arteriosclerotic cardiovascular d isease) Unspecified cardiovascular disease Chest pain, unspecified type Vocal cord paralysis Paralysis of vocal cords or larynx, unsp ecified documented in this encounter Administered Medications Inactive Administered Medications - up to 3 most recent administrations Medication Order MAR Action Action Date Dose Rate Site fentaNYL 50 mcg/mL multi-dose Given 06/02/2017 1:53 PM EDT 25 mc g injection ONCE PRN, Starting on Thu06/02/17 at 1353, Until Thu06/02/17 at 1517, Intra-Operative (Intra-Procedure), Routine heparin (porcine) injection Given 06/02/2017 2:28 PM EDT 6,000 Units ONCE PRN, Starting on Thu06/02/17 at 1409, Until Thu06/02/17 at 1517, Cath (Intra-Procedure), Routine Given 06/02/2017 2:09 PM EDT 2,000 Units iohexol (OMNIPAQUE) 350 mg/mL solution Given 06/02/2017 3:15 PM EDT 115 mLs ONCE PRN, Starting on Thu06/02/17 at 1515, Until Thu06/02/17 at 1517, Cath (Intra-Procedure), Routine midazolam (PF) (VERSED) 1 mg/mL multi-dose Given 06/02/2017 1:53 PM EDT 1 mg injection ONCE PRN, Starting on Thu06/02/17 at 1353, Until Thu06/02/17 at 1517, Cath (Intra-Procedure), Routine nitroGLYcerin 100 mcg/mL intracoronary Given 06/02/2017 2:56 PM EDT 150 mcg dilution ONCE PRN, Starting on Thu06/02/17 at 1434, Until Thu06/02/17 at 1517, Cath (Intra-Procedure), Routine Given 06/02/2017 2:34 PM EDT 200 mcg sodium chloride 0.9% infusion New Bag 06/02/2017 3:50 PM EDT 75 mL/hr 75 mL/hr 75 mL/hr, Intravenous, CONTINUOUS, Starting on Thu06/02/17 at 1615, Until Thu06/02/17 at 2040, Recovery (Recovery-Hospital Unit) documented in this encounter Active and Recently Administered Medications Times are shown in EDT. Continuous Medication Order 05/31/2017 06/01/2017 06/02/2017 sodium chloride 0.9% infusion 15 50 (New Bag - Provider: Azra Fan RN) 75 mL/hr, at 75 mL/hr, Intravenous, CONT INUOUS, Starting Thu06/02/17 at 1615, Until Thu06/02/17 at 2040, Recovery (Recovery-Hospital Unit) PRN Medication Order 05/31/2017 06/01/2017 06/02/2017 fentaNYL 50 mcg/mL multi-dose injection (CANCELED) 1353 (Given - Provider: Roxy Richardson, RN) ONCE PRN, Starting Thu06/02/17 at 1353, Until Thu06/02/17 at 1517, Intra- Operative (Intra-Procedure), Routine heparin (porcine) injection (CANCELED) 1409 (Given - Provider: Rigoberto Wyatt MD)1428 (Given - Provider: Rigoberto Wyatt MD) ONCE PRN, Starting Thu06/02/17 at 1409, Until Thu06/02/17 at 1517, Cath (Intra- Procedure), Routine iohexol (OMNIPAQUE) 350 mg/mL solution (CANCELED) 1515 (Given - Provider: Rigoberto Wyatt MD - Comment: Contrast in Barytes Grinder) ONCE PRN, Starting Thu06/02/17 at 1515, Until Thu06/02/17 at 1517, Cath (Intra- Procedure), Routine midazolam (PF) (VERSED) 1 mg/mL multi-dose injection (CANCELED) 1353 (Given - Provider: Roxy Richardson, ESTEFANIA) ONCE PRN, Starting Thu06/02/17 at 1353, Until Thu06/02/17 at 1517, Cath (Intra- Procedure), Routine nitroGLYcerin 100 mcg/mL intracoronary dilution (CANCELED) 1434 (Given - Provider: Rigoberto Wyatt MD - Comment: into OM1)1456 (Given - Provider: Rigoberto Wyatt MD - Comment: into RCA) ONCE PRN, Starting Thu06/02/17 at 1434, Until Thu06/02/17 at 1517, Cath (Intra- Procedure), Routine documented in this encounter Care Teams Senior Asic Design Engineer Relationship Specialty Start Date End Date Librado Alvarado MD PCP - General 10/08/10 01/18/18 [address] [facility] [address] [place] [address] documented as of this encounter
--- OUTSIDE RECORDS SUMMARY | 2022-08-05 09:07 | XMS_ITS | Encounter Summary ---
:1955 Author Organization [place] [address] Care Team Providers Name Role Phone Librado Alvarado MD Primary Care Provider Encounter Details Date Type Department Care Team Description 11/23/2017 Ext Surgery or [facility] Benedicto Oconnor Chest pain, unspecified type; Single Event [facility] MD Latonya ASCVD (arteriosclerotic cardiovascular d isease) [address] [facility] [address] [place] [phone] Social History Tobacco Use Types Packs/Day Years [...] Anesthesia Event Surgery Catrachita Baez MD [facility] ANESTHESIOLOGY [place], [place] [address] (Wo rk) 12/15/2022 Office Visit Cardiology Damián Hart MD [facility] [place], [place] [address] ([facility]) 03/25/2050 Hospital Encounter Surgery Citlalli Richardson MD Vocal cord paralysis [facility] OTOLARYNGOLOGY [place], [place] [address] ([facility]) documented as of this encounter Procedures Procedure Name Priority Date/Time Associated Diagnosis Comme nts ECG SCAN 11/24/2017 12:00 Results for this AM EST procedure are i n the results section. NM PHARMACOLOGIC Routine 11/23/2017 ASCVD Results for this STRESS AND REST (arteriosclerotic procedu re are in MYOCARDIAL PERFUSION cardiovascular the r esults disease) section. Chest pain, unspecified type documented in this encounter Results SCAN DOC: ECG (11/24/2017 12:00 AM EST) Narrative 11/24/2017 12:00 AM EST This result has an attachment that is no t available. Ordered by an unspecified provider. Scanning Provider MEDIA MGR SCAN EXT ORDR/RSLT NM Pharmacologic Stress Myocardial Perfusion (11/23/2017) Anatomical Region Laterality Modality Other Narrative 11/23/2017 MIBI Exercise Stress Test- Final Report ?? Burton Mcnair Jr. : 1955 [facility], [address] [facility], [facility] [address] Primary Physician: ??Librado Alvarado MD ? ?Indication: chest pain, ASCVD Date: 11/23/2017 Summary: Max Exercise: ??8:00, 2:00 ??Stage III ? ?Hamlet ?? 10 ?? METS Max HR: ? 106< 85 % PMR(133) Max BP: ??183/[address] change: ??none Reason for Termination: dyspnea Imaging: ??Mild diaphragm artifact, othe rwise normal ??EF 62 % Impression: no ischemia, normal EF, good exercise tolerance, heart rate limited by beta jojo Details: Medication: on metoprolol and amlodipine Risk Factors: ?? Known ASCVD Resting EKG: NSR 63, normal ?Resting BP: 141/73 Exercise per Hamlet protocol Arrhythmias: none Recovery: ??BP ?? -> ?? 170/71 ?HR ? ? -> 61 Rest Images: 27.1 mC MIBI, Spect-mild di aphragm artifact inferior base, otherwise normal Stress Images: ??10 mC MIBI, Spect-same Electronically signed: Benedicto Oconnor Jr, MD FAC ??Date: 11/23/2017 Benedicto Oconnor Jr., MD IMG NM ORDERABLES documented in this encounter Visit Diagnoses Diagnosis Chest pain, unspecified type ASCVD (arteriosclerotic cardiovascular d isease) Unspecified cardiovascular disease Vocal cord paralysis Paralysis of vocal cords or larynx, unsp ecified documented in this encounter Care Teams Envelope Press Operator Relationship Specialty Start Date End Date Librado Alvarado MD PCP - General 10/08/10 01/18/18 [address] [facility] [address] [place] [address] documented as of this encounter
--- OUTSIDE RECORDS SUMMARY | 2022-08-05 09:07 | XMS_ITS | Encounter Summary ---
:1955 Author Organization [facility] [place] [address] Care Team Providers Name Role Phone Librado Alvarado MD Primary Care Provider Encounter Details Date Type Department Care Team Description 11/23/2017 Telephone Cardiology at [facility] Benedicto Oconnor Jr., MD [address] [place] [address] [place] [address] [place] [address] [phone] (Wo rk) Social History Tobacco Use Types [...] Notes Telephone Encounter - Courtney Jordan - 11/24/2017 8:33 AM EST PT informed of appt Telephone Encounter - NikkiCourtney costa Rohan - 11/24/2017 8:30 AM EST appt scheduled 06/03/18 2:40 pm Telephone Encounter - Benedicto Oconnor Jr., MD - 11/23/2017 5:10 PM EST MIBI- no ischemia ST III Called and discussed Follow up 6 months documented in this encounter Plan of Treatment Upcoming Encounters Date Type Specialty Care Team Description 03/25/2022 Anesthesia Event Surgery Catrachita Baez MD [facility] ANESTHESIOLOGY [place], [place] [address] (Wo rk) 12/15/2022 Office Visit Cardiology Damián Hart MD [facility] [place], [place] [address] (Wo rk) 03/25/2050 Hospital Encounter Surgery Citlalli Richardson MD Vocal cord paralysis [facility] OTOLARYNGOLOGY [place], [place] [address] (Wo rk) documented as of this encounter Visit Diagnoses Diagnosis ASCVD (arteriosclerotic cardiovascular d isease) Unspecified cardiovascular disease Vocal cord paralysis Paralysis of vocal cords or larynx, unsp ecified documented in this encounter Care Teams Splunk Developer Relationship Specialty Start Date End Date Librado Alvarado MD PCP - General 10/08/10 01/18/[address] [address] documented as of this encounter
--- OUTSIDE RECORDS SUMMARY | 2022-08-05 09:07 | XMS_ITS | Encounter Summary ---
:1955 Author Organization [facility] [address] Care Team Providers Name Role Phone Librado Alvarado MD Primary Care Provider Encounter Details Date Type Department Care Team Description 06/25/2017 Telephone Cardiology at [facility] Benedicto Oconnor Jr., MD [address] [place] [address] [place] [address] [place], [place] [id number] (Wo rk) Social History Tobacco Use Types [...] this encounter Miscellaneous Notes Telephone Encounter - Sheryl Matthews Viviana - 06/25/2017 10:34 AM EDT Avelina at cardiac rehab @[id number] would like a call back concerning this patient. They have the note from Dr Oconnor that he can go back to rehab but have questions about whether he got more stents or what. documented in this encounter Plan of Treatment Upcoming Encounters Date Type Specialty Care Team Description 03/25/2022 Anesthesia Event Surgery Catrachita Baez MD [facility] ANESTHESIOLOGY [place], [place] [address] (Wo rk) 12/15/2022 Office Visit Cardiology Damián Hart MD [facility] [place], [place] [address] (Wo rk) 03/25/2050 Hospital Encounter Surgery Citlalli Richardson MD Vocal cord paralysis [facility] OTOLARYNGOLOGY [place], [place] [address] (Wo rk) documented as of this encounter Visit Diagnoses Not on filedocumented in this encounter Care Teams Senior Field Service Engineer Relationship Specialty Start Date End Date Librado Alvarado MD PCP - General 10/08/10 01/18/18 [address] [facility] [address] [place] [address] documented as of this encounter
--- OUTSIDE RECORDS SUMMARY | 2022-08-05 09:07 | XMS_ITS | Encounter Summary ---
:1955 Author Organization [facility] [place] [address] Care Team Providers Name Role Phone Librado Alvarado MD Primary Care Provider Encounter Details Date Type Department Care Team Description 05/11/2017 Telephone Cardiology at [facility] Benedicto Oconnor Jr., MD [address] [place] [address] [place] [address] [place] [address] [phone] (Wo rk) Social History Tobacco Use Types [...] Notes Telephone Encounter - Courtney Jordan - 05/20/2017 10:56 AM EDT appt scheduled 05/22/17 2:40 pm Telephone Encounter - Benedicto Oconnor Jr., MD - 05/20/2017 9:37 AM EDT Needs ov end of this week or beginning of next Telephone Encounter - Shania Montenegro RN - 05/12/2017 9:26 AM EDT Patricia brought note, will have it scanned Telephone Encounter - Shania Montenegro RN - 05/12/2017 9:13 AM EDT Baljinder stopped by after rehab. He has been getting the throat tightness, like before his stent, and SOB with stair climbing or going up any incline. He has been very good about taking the plavix, has notmissed any. Also talked about taking NTG when this occurs, he will check to see if NTG are and if he needs a new Rx. He has not been getting it though it rehab and feels he is good on flat ground. Just add and incline and it occurs. Telephone Encounter - Shania Montenegro RN - 05/12/2017 8:17 AM EDT Avelina called from rehab and said that we needed to order a glucometer and test strips for him at [facility] and also that he had some throat tightness, like what he had prior to his cath. I will send anorder and call Baljinder to see what is going on. Telephone Encounter - Shania Montenegro RN - 05/11/2017 2:45 PM EDT Called Baljinder and he says that rehab is requiring him to get the glucometer and test strips. He says the pharmacy is saying that he can get generic Test strips. I talked with Avelina in rehab and they want him to have the glucometer to test his fasting glucose at home. She will talk to him tomorrow and see what they can figure out and let me know Telephone Encounter - Courtney Jordan - 05/11/2017 1:28 PM EDT Mr Mcnair needs a refill for diabetic strips. His PCP is on vacation. Hopes Dr. Oconnor will fill this with a generic [facility] [place] documented in this encounter Plan of Treatment Upcoming Encounters Date Type Specialty Care Team Description 03/25/2022 Anesthesia Event Surgery Catrachita Baez MD [facility] ANESTHESIOLOGY [place], [place] [address] (Wo rk) 12/15/2022 Office Visit Cardiology Damián Hart MD [facility] [place], [place] [address] (Wo rk) 03/25/2050 Hospital Encounter Surgery Citlalli Richardson MD Vocal cord paralysis [facility] OTOLARYNGOLOGY [place], [place] [address] (Wo rk) documented as of this encounter Visit Diagnoses Not on filedocumented in this encounter Care Teams Nike Athlete Relationship Specialty Start Date End Date Librado Alvarado MD PCP - General 10/08/10 01/18/18 580 [facility] [address] [place] [address] documented as of this encounter
--- OUTSIDE RECORDS SUMMARY | 2022-08-05 09:07 | XMS_ITS | Encounter Summary ---
:1955 Author Organization [facility] [place] [address] Care Team Providers Name Role Phone Librado Alvarado MD Primary Care Provider Reason for Visit Reason Comments Shortness of Breath Has a different feeling in h is throat while on incline when walking the dog. Encounter Details Date Type Department Care Team Description 12/22/2017 Office Visit Cardiology at [facility] Benedicto Oconnor Jr., Angina of effort [address] [facility] [address] [place], [place] [address] [place], [place] [phone] (Wo rk) Social History Tobacco Use Types [...] Sign Reading Time Taken Comments Blood Pressure 138/70 12/22/2017 11:02 AM EST Pulse 61 12/22/2017 11:02 AM EST Temperature - - Respiratory Rate - - Oxygen Saturation - - Inhaled Oxygen Concentration - - Weight 98.4 kg (217 lb) 12/22/2017 11:02 AM EST Height 182.9 cm (6') 12/22/2017 11:02 AM EST Body Mass Index 29.43 12/22/2017 11:02 AM EST documented in this encounter Progress Notes Benedicto Oconnor Jr., MD - 12/22/2017 11:00 AM EST Subjective: Patient ID: Burton Mcnair Jr. is a 62 y.o. male. Chief Complaint Patient presents with ??? Shortness of Breath Has a different feeling in his throat while on incline when walking the dog. HPI He felt better for a few weeks after the MIBI but in the last week has had worse chest tightnessand throat burning with activity. He notices it with stairs now (inside) and can not go half as far outside as he used to. He also had it when carrying some boxes into a store- that time he had to use NTG for relief. He tries to avoid NTG because of the headache, which can last for hours after using it. He denies palpitation, dizziness or edema. He has noticed no improvement with increasing metoprolol to 150 mg Review of Systems denies other issues No Known Allergies Current Outpatient Prescriptions Medication Sig Dispense Refill ??? meTOPROLOL succinate (TOPROL-XL) 100 mg Tablet Sustained Release 24 hr Take 150 mg by mouth daily. ??? 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 He is on maximum amlodipine, high dose metoprolol and is intolerant of nitrates (headache) Ranolazine is the next step in medical management. He will start 500 mg BID and do a phone check in 1 week to see if it is helping. If not may have to consider repeat cath to see if there is anything to fix(though the recent MIBI argues against that) documented in this encounter Plan of Treatment Upcoming Encounters Date Type Specialty Care Team Description 03/25/2022 Anesthesia Event Surgery Catrachita Baez MD [facility] ANESTHESIOLOGY [place], [place] [address] (Wo rk) 12/15/2022 Office Visit Cardiology Damián Hart MD [facility] [place], [place] [address] (Wo rk) 03/25/2050 Hospital Encounter Surgery Citlalli Richardson MD Vocal cord paralysis [facility] OTOLARYNGOLOGY [place], [place] [address] (Wo rk) documented as of this encounter Procedures Procedure Name Priority Date/Time Associated Diagnosis Comme nts ECG SCAN 12/23/2017 12:00 AM Results for this EST procedure are i n the results section . documented in this encounter Results SCAN DOC: ECG (12/23/2017 12:00 AM EST) Narrative 12/23/2017 12:00 AM EST This result has an attachment that is no t available. Ordered by an unspecified provider. Scanning Provider MEDIA MGR SCAN EXT ORDR/RSLT documented in this encounter Visit Diagnoses Diagnosis Angina of effort Other and unspecified angina pectoris Vocal cord paralysis Paralysis of vocal cords or larynx, unsp ecified documented in this encounter Care Teams Casket Inspector Relationship Specialty Start Date End Date Librado Alvarado MD PCP - General 10/08/10 01/18/[address] [facility] [address] [place] [address] documented as of this encounter
--- OUTSIDE RECORDS SUMMARY | 2022-08-05 09:07 | XMS_ITS | Encounter Summary ---
:1955 Author Organization [facility] [place] [address] Care Team Providers Name Role Phone Librado Alvarado MD Primary Care Provider Reason for Referral Consultation (Routine) - Specialty Diagnoses / Procedures Referred By Contact Refer red To Contact Cardiac Rehabilitation Diagnoses S/P coronary angioplasty Mariama Bravo MD Cardiac Rehab, [facility] [address] [place], [place] [id number] [place] [phone] Fax: Referral ID Status Reason Start Date Expiration Date Visits V isits Requested Authorized Consult, 03/11/2017 09/07/2017 36 36 Test & Treat Reason for Visit Auth/Cert Specialty Diagnoses / Procedures Referred By Contact Refer red To Contact Diagnoses Other forms of angina pectoris Angina Procedures PRO CATH PLMT LEFT HEART CATH & ARTS W/INJ & ANGIO IMG S&I CARDIAC CATHETERIZATION Referral ID Status Reason Start Date Expiration Date Visits Requ ested Visits Authorized [id number] 1 1 Encounter Details Date Type Department Care Team Description 03/10/2017 - Hospital Short Stay Unit at Mariama Bravo MD ASCVD (arteriosclerotic cardiovascular d isease); 03/11/2017 Encounter [facility] coronary angioplasty [facility] [place], [place] [address] [address] [place], [place] [phone] (Work) [phone] Social History Tobacco Use Types Packs/Day Years [...] Sign Reading Time Taken Comments Blood Pressure 141/81 03/11/2017 7:15 AM EDT Pulse 83 03/11/2017 8:19 AM EDT Temperature 36.5 ??C (97.7 ??F) 03/11/2017 7:15 AM EDT Respiratory Rate 16 03/11/2017 7:15 AM EDT Oxygen Saturation 99% 03/11/2017 7:15 AM EDT Inhaled Oxygen Concentration - - Weight - - Height - - Body Mass Index - - documented in this encounter Discharge Summaries Tahmina Leone MD - 03/11/2017 8:24 AM EDT Discharge Summary Patient Name: Burton Mcnair Jr. Patient Age: 62 y.o. Language: Kyrgyz Race: White Ethnicity: Not nor Admit date: 03/10/2017 Discharge date and time: 03/11/2017 Attending Physician: Mariama Bravo MD Discharge Physician: Mariama Bravo MD Follow-up Recommendations for Providers: - dual antiplatelet regimen as follows: - aspirin 81 mg daily lifelong - clopidogrel 75 mg daily nursing home as tolerated - Of note, he had been on Ticagrelor following his PCI in Sep 2016, however due to feelings of dyspnea, malaise and possible ache, he had been switched to plavix late Oct 2016 with improvement in those acute symptoms. At this time he has been continued on his plavix. - amlodipine (norvasc) has been increased from 5 mg to 10 mg daily - Given that his metoprolol succinate was recently increased to 75mg daily (he reports about 1 week ago), have left medication at this dose although it appears that he may be able to tolerate an increased dose at 100mg daily. - metformin to be resumed 48 hours after cardiac catheterization, on 03/12/2017 - will arrange for 6 week follow-up with Dr Mariama Bravo; in meantime recommend more immediate follow up with cardiology if required in 3-[address] Oconnor Inpatient Provider Contact Information: Mariama Bravo MD - attending Discharge Diagnoses (Hospital Problems) and Secondary Diagnoses (Chronic Problems): Active Hospital Problems Diagnosis ??? CAD (coronary artery disease) Resolved Hospital Problems Diagnosis Date Resolved No resolved problems to display. Active Non-Hospital Problems Diagnosis ??? Diabetes mellitus ??? Hyperlipidemia ??? [...] angioplasty of proximal RCA for in-stent restenosis Operations/Major Procedures: Operations: Procedure(s) with comments: CARDIAC CATHETERIZATION - Procedure: Coronary Angiography History of Presentation: Mr Mcnair has known CAD with cardiac cath 09/2016 revealing diffuse 99% mid LCx disease, 60% OM1 stenosis, 95% prox RCA stenosis and 50% mid RCA stenosis with subsequent orbital atherectomy and PCI with KAROLYN to prox RCA. He also has DM2 on oral meds, HTN and HLD. ?? Since 09/2016 he has done reasonably well with initially intermittent episodes of transient dyspnea and atypical chest pain mostly noted at rest. However over last 2-3 weeks the exertional dyspnea has been more pronounced and similar in quality to 09/2016. The dyspnea appears to be triggered mostly when working with inclines and not so much when on level ground. 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 No orthopnea, PND, peripheral edema, preysncope or syncope. ?? Cardiac stress test on 03/03/17 which revealed a base to mid, small to mod inferior lateral defect roselia functional capacity of 4.6 METS and 85% PMHR. On 03/10/2017 he underwent cardiac catheterization via a right femoral arteriotomy with angioplasty of the proximal RCA for instent restenosis. ?? Hospital Course: He was admitted following cardiac catheterization for overnight monitoring and observation. He did well overnight without significant chest pain or arrhythmias on telemetry. The right femoral access site was evaluated and the femoral pulse was palpable with no evidence of vascular compromise to the right groin. Cardiac biomarkers and a repeat ECG were reviewed with no evidence of active ischemia. VS and renal function remained stable. He ambulated with nursing without chest discomfort or exertional dyspnea. He met criteria for discharge, and was released home in stable condition. Functional and Cognitive Status: Independent in ALDs and IADLs, A&O x 3, at baseline Important Studies and Lab Data: Labs: Lab Results Component Value Date WBC 5.2 03/11/2017 HGB 14.2 03/11/2017 HCT 40.2 (L) 03/11/2017 PLATELET 122 (L) 03/11/2017 No results for input(s): INR in the last 168 hours. Lab Results Component Value Date NA 138 03/11/2017 K 4.0 03/11/2017 CL 99 03/11/2017 CO2 26 03/11/2017 BUN 12 03/11/2017 CREATININE 0.65 (L) 03/11/2017 Recent Labs 03/11/17 0400 CK 111 TROPONINT <0.03 Cardiac Catheterization 03/10/17: Technique: A 6Fr sheath was inserted in the right femoral artery utilizing the Seldinger technique. The left coronary artery was injected utilizing a 5Fr JL 4 catheter. A 5Fr JR 4 catheter was used to inject the right coronary artery. Left ventricular pressure was performed with a 5Fr JR 4 catheter. Coronary yo oplasty was performed and the equipment utilized will be described in the intervention summary section. 7,000 units of heparin were administered. A total of 100cc of Omnipaque were opened, 63cc of Omnipaque were administered and 37cc of Omnipaque were wasted. Radiation: Fluoro time was 6.5 minutes, dose area product was 75,801 mGYcm2 and air kerma was 794 mGY. The patient received the following medications prior to and during the procedure: Aspirin (any), Clopidogrel and GP IIb/IIIa (any). ? Hemodynamics: Left Heart Pressures Resting: Syst Diast EDP a v m Ao 133 68 95 LV 140 16 ? Coronary Angiography: Dominance: Right ? Left Main There was mild diffuse disease of the entire vessel segment of the left main artery. The left main was moderate in size. Distal flow was normal. ? Left Anterior Descending There was moderate diffuse disease of the entire vessel segment of the left anterior descending artery (LAD). The LAD was large. Distal flow was normal. ? 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 The LCX wassmall. Distal flow was decreased (LUIS CARLOS Grade 1) and was via collaterals from the LAD. There was a 60% single discrete stenosis of the proximal segment of the first obtuse marginal branch(OM1) of the LCX. Distal flow was normal. ? Right Coronary Artery There was a 95% single discrete stenosis of the proximal segment of the right coronary artery (RCA).The RCA was large. Distal flow was normal. ? There was mild diffuse disease of the entire vessel segment of the right posterior descending branch(RPDA) of the RCA. The RPDA was large. Distal flow was normal. ? Indication for Intervention: Coronary intervention was indicated for treatment of stable angina, CCS Class II. Left ventricular Ejection Fraction was estimated at 60 percent. The priority for the procedure was Elective. The [facility] indication for the procedure was Stable angina. ? Intervention Summary: Right Coronary Artery Proximal 95% Angioplasty was performed on the 95% stenosis in the proximal segment of the RCA. This was a drug eluting in-stent restenosis lesion. According to the ACC/AHA classification system, this lesion was a type B2 moderate risk lesion. This was the culprit lesion. Vessel flow pre intervention was LUIS CARLOS 3. This was a previously treated lesion within 6-12 months. ? Angioplasty was accomplished through a 6 Fr AL 1 guide utilizing a NC EUPHORA 15 MM balloon with a maximum size of 4.50mm and a maximum inflation pressure of 18 atmospheres. The final outcome was defined as successful. The residual stenosis following this intervention was 20%. The final LUIS CARLOS flow was 3. ? Vascular Access: Vascular Access Angiogram: A selective angiogram at the right femoral artery revealed no significant obstructive disease. ? Vascular Access Management: A Perclose was deployed at the right femoral artery access site. This device was successful. ? Conclusions: * Three vessel coronary artery disease (LAD, LCX and RCA) * Successful angioplasty of the proximal RCA lesion ? Complications/Events: The patient had no complications during these procedures. ? Comments: Pt referred for findings of ischemia on nuclear stress test. Stress test was performed for dyspnea. Pt has known severe calcified CAD with recent atherectomy guided PCI to RCA. Coronary angiography showed severe focal in-stent restenosis of the previously palced stent in the proximal RCA. This was treated with balloon angioplasty and dilated upto 4.5 mm at 18 jose with good result. There is < 20% residual stenosis. Will optimize medical therapy and assess response. Pending Studies and Lab Data: None Discharge Conditions/Prognosis: Good Discharge to: Home Updated Allergies/ADRs: No Known Allergies Immunizations Given this Hospitalization: Immunization History Administered Date(s) Administered ??? Influenza Vaccine, Whole 09/16/2009 Discharge Medications: Your Medications Continued medications with new dosing Dose Details amLODIPine 10 mg Tab Commonly known as: NORVASC Take 1 tablet by mouth daily. What changed: - medication strength - how much to take 10 mg Quantity: 90 tablet Refills: 3 Continued medications, unchanged Dose Details aspirin 81 mg Tbec Take 81 mg by mouth daily. 81 mg Refills: 0 atorvastatin 80 mg Tab Commonly known as: LIPITOR Take 1 tablet by mouth daily. 80 mg Quantity: 90 tablet Refills: 3 clopidogrel 75 mg Tab Commonly known as: PLAVIX take 1 tablet by mouth once daily Refills: 0 lisinopril 40 mg Tab Commonly known as: PRINIVIL;ZESTRIL Take 40 mg by mouth daily. 40 mg Refills: 0 metFORMIN 1,000 mg Tab Commonly known as: GLUCOPHAGE Take 1,000 mg by mouth 2 times daily (with meals). 1000 mg Refills: 0 meTOPROLOL succinate 50 mg Tablet sr Commonly known as: TOPROL-XL Take 75 mg by mouth daily. 75 mg Refills: 0 nitroGLYcerin 0.4 mg Subl Commonly known as: NITROSTAT Place 1 tablet under the tongue every 5 minutes as needed for Chest pain. 0.4 mg Quantity: 25 tablet Refills: 12 Smoking Status at Discharge: History Smoking Status ??? Former Smoker ??? Types: Cigarettes Smokeless Tobacco ??? Not on file Comment: quit at age 17 Instructions Given to Patient at Discharge: Patient Instructions Cardiology Instructions Call your doctor if: Chest pain, dyspnea, pain or swelling in legs occurs. If you have non-emergent questions between now and the time of your follow up appointments: -During 8am-5pm Thursday through Thursday call [phone] to speak with a nurse in the cardiology clinic -All other times call [phone] and ask to speak to the bull ladle tender second hand. MEDICATIONS - restart your metformin on , 03/12/2017 - amlodipine has been increased to 10 mg daily - you need to be on daily Plavix nursing home and aspirin for lifetime to help prevent clots forming inside of your stent. - keep nitroglycerin with you at all times, if you have chest pain, can take 1 tablet under your tongue every 5 minutes up to 3 tablets. If your pain does not resolve you need to call [phone]. Return to usual actvities: 1 week, as tolerated. 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 Driving: No driving for 48 hours after catheterization. Follow up Appointments: Primary care provider: Cardiology: Librado Alvarado MD [phone] Follow up as planned or as needed. Dr. Benedicto Oconnor Call to confirm appointment Dr Mariama Bravo, [facility] Follow-up in 6 weeks General Instructions None Future Appointments and Orders Future Orders Complete By Expires Referral to Cardiac Rehab [[id number] Custom] As directed Process Instructions: If no progress note charted, please enter Clinical details in comments. Scheduling Instructions: Questions: My question or request is: s/p angioplasty. Cardiac rehab at [facility] Discharge References/Attachments None documented in this encounter Discharge Instructions Patient InstructionsTahmina Leone MD - 03/10/2017 2:52 PM EDT Cardiology Instructions Call your doctor if: Chest pain, dyspnea, pain or swelling in legs occurs. If you have non-emergent questions between now and the time of your follow up appointments: -During 8am-5pm Thursday through Thursday call [phone] to speak with a nurse in the cardiology clinic -All other times call [phone] and ask to speak to the bull ladle tender second hand. MEDICATIONS - restart your metformin on , 03/12/2017 - amlodipine has been increased to 10 mg daily - you need to be on daily Plavix nursing home and aspirin for lifetime to help prevent clots forming inside of your stent. - keep nitroglycerin with you at all times, if you have chest pain, can take 1 tablet under your tongue every 5 minutes up to 3 tablets. If your pain does not resolve you need to call [phone]. Return to usual actvities: 1 week, as tolerated. 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 Driving: No driving for 48 hours after catheterization. Follow up Appointments: Primary care provider: Cardiology: Librado Alvarado MD [phone] Follow up as planned or as needed. Dr. Benedicto Oconnor Call to confirm appointment Dr Mariama Bravo, [facility] Follow-up in 6 weeks documented in this encounter Medications at Time of Discharge Medication Sig Dispensed Refills Start Date End Date aspirin 81 mg Tablet, Take 162 mg by mouth 0 Delayed Release (E.C.) daily. Increased by neurologist metFORMIN (GLUCOPHAGE) Take 1,000 mg by 0 1,000 mg Tablet mouth 2 times daily (with meals). amoxicillin (AMOXIL) 500 Take 2,000 mg by 0 11/2105/22/2017 mg Capsule mouth once as needed (1 hour prior to Dental work). amLODIPine (NORVASC) 10 Take 1 tablet by [...] 0 01/24 (PRINIVIL;ZESTRIL) 40 mg daily. Tablet meTOPROLOL succinate Take 75 mg by mouth 0 201503/19/2017 (TOPROL-XL) 50 mg Tablet daily. Sustained Release 24 hr documented as of this encounter Progress Notes Aleshia Pratt RN - 03/11/2017 9:20 AM EDT Activity Summary: By discharge, patient will be able to perform self care, walk 5-7 minutes and go up and down stairs without signs or symptoms of ischemia. Date /Initials Baseline Response Symptoms/Comments 03/11/17 mlm 0848 Activity HR 80 82 No BARRON, SOB, CP, HR up to 97 during stairs 5 minute walk w/stairs BP 126/77 149/79 O2 Sat 98 RA 97 ECG nsr no change Tahmina Leone MD - 03/11/2017 8:18 AM EDT Inpatient Interventional Cardiology Discharge Day Note Patient Name: Burton Mcnair Jr. Service: interventional cardiology Responsible Attending: Mariama Bravo MD Reason for continued hospitalization: Overnight observation after angioplasty Pending discharge today Active Problems: Active Hospital Problems Diagnosis ??? CAD (coronary artery disease) Resolved Hospital Problems Diagnosis Date Resolved No resolved problems to display. Interval History: - uneventful night - no angina or dyspnea - no access site pain - no arrhythmia on telemetry Telemetry: reviewed Meds: ??? aspirin 81 mg Oral Daily ??? atorvastatin 80 mg Oral QPM ??? clopidogrel 75 mg Oral Daily ??? lisinopril 40 mg Oral Daily ??? meTOPROLOL succinate 75 mg Oral Daily ??? insulin lispro 1-4 Units Subcutaneous TID AC ??? amLODIPine 10 mg Oral Daily Physical Exam: Vital Signs: reviewed Physical Exam Gen: NAD HEENT: No pallor, no jaundice CV: RRR, no m/g/r, JVP at 7 cmH2O Pulm: CTAB, no w/r/r Abd: Soft, NT, ND, +BS Vasc: 2+ radial and femoral pulses bilat. Access site c/d/i without hematoma or ecchymosis, drsg c/d/i Extr: Wwp, no c/c/e Lab Comments: Lab Results Component Value Date WBC 5.2 03/11/2017 HGB 14.2 03/11/2017 HCT 40.2 (L) 03/11/2017 MCV 87.6 03/11/2017 PLATELET 122 (L) 03/11/2017 Lab Results Component Value Date CREATININE 0.65 (L) 03/11/2017 BUN 12 03/11/2017 NA 138 03/11/2017 K 4.0 03/11/2017 CL 99 03/11/2017 CO2 26 03/11/2017 Lab Results Component Value Date CK 111 03/11/2017 TROPONINT <0.03 03/11/2017 Pertinent Radiographic/Diagnostic Results: ECG: reviewed Discharge Medication Checklist: Aspirin aspirin 81mg daily lifelong Clopidogrel/prasugrel clopidogrel 75 mg daily nursing home Geovanni inhibitor/or ARB continue lisinopril Beta Yecenia continue metoprolol Lipid Lowering continue lipitor Nitroglycerin SL NTG prn Assessment: Burton Mcnair Jr. is a 62 y.o. male who is POD #1 s/p angioplasty to proximal RCA for instent restenosis who was admitted overnight for observation. There were no overnight events, patient tolerated cardiac walk without angina or dyspnea, remained hemodynamically stable, no evidence of active ischemia or vascular complications, stable renal fx. Patient is stable for discharge today. Amlodipine has been increased to 10mg daily. Given that his metoprolol succinate was recently increased to 75mg daily (he reports about 1 week ago), have left medication at this dose although it appears that he may be able to tolerate an increased dose at 100mg daily. Of note, he had been on Ticagrelor following his PCI in Sep 2016, however due to feelings of dyspnea, malaise and possible ache, he had been switched to plavix late Oct 2016 with improvement in those acute symptoms. At this time he has been continued on his plavix. Plan: 1. Discharge today 2. F/U with cardiology in 3-4 weeks: Dr. Benedicto Oconnor. Will also plan for f/u in about [address] Bravo. Tahmina Leone MD Aleshia Pratt RN - 03/10/2017 1:15 PM EDT 1220Report taken from dye lab technician Pt arrived at [address] Ambulated from stretcher to bed total assist with yellow slipp. Patient hooked up to monitors, Patient is neurologically intact, A&Ox4, vss. Lung sounds clear,, diminished at bases Patient is on RA,no SOB, BARRON, CP 5/5 strengths all extremities. No numbness or tingling, Radial and dorsalis pulses normal Bowel sounds active x4,soft non tender. To ambulate: patient has not been OOB yet. FLAT bedrest until 1515 Assistance [level of assistance required for transfers and ambulation]: At baseline patient is independent Bathroom: urinal, bathroom. Patient voided 500Cc at 1210 Skin: RT groin intact, no drainage, Drsg on : C/D/I. otherwise skin intact. No S/S of PU, or breakdown. Pain: 0/10 Patient belongs with Patient/ family. Oriented to room, staff, use of call light. Patient verbalized/demonstrated understanding. Plan of care, treatments, goals, tests, services written on white board and discussed with patient/family for discharge readiness. Patient-specific fall risk factors per assessment/individualized fall prevention interventions: fallrisk precautions initiated. Patient is cooperative, POD #0. Patient has tubes and lines. Patient able to reliably summon for assistance Bed in low position. Bed alarms with 3 side rails raised. Commode urinal at bedside. Tolieting offered. Bathing/hygeine/dressing assistance provided while encouraging independence. Environment clear ofobstacles/tripping hazard. Lighting provided/adjusted. Patient instructed in use of call ballesteros. call ballesteros within reach at all times. Patient will remain free from falls this shift. Supervision [direct monitoring required during toileting and ADLs]: At baseline patient is independent at baseline, currently patient is eyes on /within reach assist with all ADL's, Surveillance [continuous indirect monitoring]: Purposeful hourly rounding done, pulse oximetry, roomnear nurses station, call ballesteros within reach, family at bedside, telemetry. Patient-specific fall prevention interventions for sensory deficits provided, if applicable: N/A documented in this encounter H&P Notes Tahmina Leone MD - 03/10/2017 11:39 AM EDT Post-PCI Admission History and Physical PCP: Librado Alvarado MD Referring: Dr Benedicto Oconnor Date of Admission: 03/10/2017 Admission Diagnosis: S/p PCI Problem List: Patient Active Problem List Diagnosis ??? CAD (coronary artery disease) ??? Diabetes mellitus ??? Hyperlipidemia ??? Hypertension ??? ASCVD (arteriosclerotic cardiovascular disease) Overview Note: MIBI 2008: 10:30, 1:30 Stage IV [place] [...] 95% prox RCA-> KAROLYN, 50% distal RCA HPI: This 62 y.o. male is admitted with a chief complaint of CAD s/p angioplasty. I have reviewed the available records, interviewed and examined the patient. This patient is admitted post PCI for IV hydration, pain management, access site management in the setting of anticoagulation, serial cardiac biomarker monitoring, telemetry monitoring, evaluation of their medical condition, and cardiac rehabilitation. ROS/PMHx/Fam Hx/Soc Hx: Reviewed, see outpatient note. Physical Exam BP 147/78 Pulse 59 Temp 36.5 ??C (97.7 ??F) (Oral) Resp 16 SpO2 99% Gen: Well-appearing, NAD HEENT: No pallor, no jaundice CV: RRR, no m/g/r, JVP at 7 cm H20 Lungs: CTAB, no increased WOB Abd: Soft, NTND, +NABS Ext: Wwp, no c/c/e Vasc: 2+ radial and femoral pulses, access site c/d/i Labs: Lab Results Component Value Date WBC 4.6 09/26/2016 HGB 12.5 (L) 09/26/2016 HCT 35.3 (L) 09/26/2016 MCV 88.9 09/26/2016 PLATELET 115 (L) 09/26/2016 Lab Results Component Value Date CREATININE 0.75 (L) 03/10/2017 BUN 11 03/10/2017 NA 139 03/10/2017 K 4.4 03/10/2017 CL 96 (L) 03/10/2017 CO2 28 03/10/2017 Lab Results Component Value Date CK 134 09/26/2016 TROPONINT <0.03 09/26/2016 Assessment/ Plan: #CAD, s/p angioplasty of RCA - Admit for overnight monitoring - Telemetry, serial ECGs, cycle cardiac biomarkers - Dual antiplatelet therapy - IVF - Monitor access site - Cardiac rehab consult - Anticipate discharge in am Tahmina Leone MD Tahmina Leone MD - 03/10/2017 9:35 AM EDT Burton Mcnair Jr. is a 62 y.o. male referred for cardiac catheterization by Dr Benedicto Oconnor for evaluation of abnormal stress test. Mr Mcnair has known CAD with cardiac cath 09/2016 revealing diffuse 99% mid LCx disease, 60% OM1 stenosis, 95% prox RCA stenosis and 50% mid RCA stenosis with subsequent orbital atherectomy and PCI with KAROLYN to prox RCA. He also has DM2 on oral meds, HTN and HLD. Since 09/2016 he has done reasonably well with initially intermittent episodes of transient dyspnea and atypical chest pain mostly noted at rest. However over last 2-3 weeks the exertional dyspnea has been more pronounced and similar in quality to 09/2016. The dyspnea appears to be triggered mostly when working with inclines and not so much when on level ground. 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 No orthopnea, PND, peripheral edema, preysncope or syncope. He underwent cardiac stress test on 03/03/17 which revealed a base to mid, small to mod inferior lateral defect at a functional capacity of 4.6 METS and 85% PMHR. He has taken all his medications, including aspirin and plavix, this morning, except for metformin. There have not been any changes in health status since last seen in clinic. No fevers, no chills, no bleeding. Outpatient Prescriptions Marked as Taking for the 03/10/17 encounter (Hospital Encounter) Medication Sig Dispense Refill ??? atorvastatin (LIPITOR) 80 mg Tablet Take 1 tablet by mouth daily. 90 tablet 3 ??? amLODIPine (NORVASC) 5 mg Tablet Take 1 tablet by mouth daily. 30 tablet 11 ??? clopidogrel (PLAVIX) 75 mg Tablet take [...] Tablet Take 40 mg by mouth daily. ??? meTOPROLOL succinate (TOPROL-XL) 50 mg Tablet Sustained Release 24 hr Take 75 mg by mouth daily.0 There were no vitals taken for this visit. PE NAD CV: RRR, S1 S2 physiologic, JVP estimated 7 cm H2O Pulm: CTAB, no w/r/r Abd: soft, NT, ND, +BS Vasc: 2+ bilat radial with favorable Santi's test on the R, 2+ bilat femoral pulses Extr: wwp, no edema Labs reviewed and notable for: Outside labs from 03/03/17: Cr 0.67, INR 1, HGB 14.7, HCT 41.6, PLT 128 A/P 62 y.o. male here for cardiac catheterization. - proceed as planned - consent signed - no obvious CI to DAPT - FULL code Tahmina Leone MD documented in this encounter Miscellaneous Notes Plan of Care - Pili Smith RN - 03/11/2017 3:13 AM EDT Problem: Patient Care Overview Goal: Plan of Care Review Outcome: Ongoing (Interventions Implemented as Appropriate) 03/11/17 0308 Coping/Psychosocial Plan Of Care Reviewed With patient Plan of Care Review Progress improving OUTCOME EVALUATION NOTE: OUTCOME SUMMARY: Patient received in bed, A&O, VSS, denies pain, CP, SOB. Up ad claudia and tolerates this activity well. Pulses palpable RLE. R groin site soft, no s/s of hematoma, drainage on dressing marked at change of shift, no changes noted at this time. SR with 1st degree AV block noted on tele. Tolerates this rhythm well. Comfort and safety measures maintained, CBIR. PLAN MOVING FORWARD: CTM I/O, labs, VS, pain, advacne activity and diet as tolerated, cardiac walk and EKG this AM. D/C home when able. INDIVIDUALIZED FALL PREVENTION INTERVENTIONS: Patient-specific fall risk factors per assessment: [current deficits]: IV access, secondary diagnosis Assistance [level of assistance required for transfers and ambulation]: Independnet Supervision [direct monitoring required during toileting and ADLs]: A&O, uses call ballesteros appropriately Surveillance [continuous indirect monitoring]: Hourly rounding Patient-specific fall prevention interventions for sensory deficits provided, if applicable: NA CPG GOAL OUTCOME EVALUATION: Consult Note - Thelma Torres RN - 03/10/2017 2:35 PM EDT Burton Mcnair Jr. was seen today by Cardiac Rehabilitation for: S/p angioplasty to RCA Activity evaluation - Patient remains on bedrest at this time. Nursing to perform cardiac walk when medically appropriately. Educational packet regarding CAD, cardiac risk factors, and managing angina given to the patient. Heart diagram reviewed. Mediterranean diet guidelines briefly reviewed. Patient is a diabetic and follows a diabetic diet. Given parameters for home exercise. 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 1 mile most days of the week. Reviewed managing angina /use of sl nitroglycerin. Patient already has a script for nitro and was able to verbalize the directions for use. Participation to an outpatient cardiac rehabilitation program at [facility] was discussed. He was referred to this program post PCI 09/2016. Patient reports he did not participate in the program when last referred, but is interested in starting it now and would like a referralto be sent. The referral will be sent at discharge and the patient should be contacted by the Program within 1- 2 weeks from discharge. documented in this encounter Plan of Treatment Upcoming Encounters Date Type Specialty Care Team Description 03/25/2022 Anesthesia Event Surgery Catrachita Baez MD [facility] ANESTHESIOLOGY [place], [place] [address] (Wo rk) 12/15/2022 Office Visit Cardiology Damián Hart MD [facility] [place], [place] [address] (Wo rk) 03/25/2050 Hospital Encounter Surgery Citlalli Richardson MD Vocal cord paralysis [facility] OTOLARYNGOLOGY [place], [place] [address] (Wo rk) Scheduled Referrals Name Type Priority Associated Diagnoses Order S chedule Referral to Outpatient Referral Routine S/P coronary Ordered: Cardiac Rehab angioplasty 03/11/2017 documented as of this encounter Procedures Procedure Name Priority Date/Time Associated Diagnosis Comme nts POCT GLUCOSE Routine 03/11/2017 10:16 Results for this AM EDT procedure are i n the results section. POCT GLUCOSE Routine 03/11/2017 8:12 AM Results f or this EDT procedure are i n the results section. EKG 12-LEAD Routine 03/11/2017 7:19 AM ASCVD (arterioscleroti c Results for this EDT cardiovascular disease) proc edure are in the results section. POCT GLUCOSE Routine 03/11/2017 7:02 AM Results f or this EDT procedure are i n the results section. BMP W/FASTING Routine 03/11/2017 4:00 AM Results for this GLUCOSE EDT procedure are i n the results section. HEMOGRAM Routine 03/11/2017 4:00 AM Results f or this EDT procedure are i n the results section. DIFFERENTIAL, Routine 03/11/2017 4:00 AM Results for this AUTOMATED EDT procedure are i n the results section. CARDIAC ENZYMES Routine 03/11/2017 4:00 AM Result s for this ([facility]) EDT procedure are i n the results section. 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 POCT GLUCOSE Routine 03/10/2017 8:24 PM Results f or this EDT procedure are i n the results section. POCT GLUCOSE Routine 03/10/2017 6:11 PM Results f or this EDT procedure are i n the results section. POCT GLUCOSE Routine 03/10/2017 3:50 PM Results f or this EDT procedure are i n the results section. POCT GLUCOSE Routine 03/10/2017 11:52 Results for this AM EDT procedure are i n the results section. EKG 12-LEAD Routine 03/10/2017 11:45 ASCVD (arteriosclerotic Results for this AM EDT cardiovascular disease) proc edure are in the results section. BMP W/FASTING STAT 03/10/2017 8:43 AM Results for this GLUCOSE EDT procedure are i n the results section. documented in this encounter Results (ABNORMAL) POCT Glucose (03/11/2017 10:16 AM EDT) P athologist Signature POC Glucose 260 (H) 65 - 199 [facility] mg/dL [facility] Comment: Supplemental ranges: <140 mg/dL before meals <180 mg/dL all other times of the day Specimen Anatomical Collection Method Collection Time Receive d Time (Source) Location / / Volume Laterality Blood specimen 03/11/2017 10:16 7 (specimen) AM EDT 10:16 AM EDT Mariama Bravo MD POINT OF CARE TEST ORDERABLE S Performing Organization Address City/[facility]/ZIP [facility] [place] [address] (ABNORMAL) POCT Glucose (03/11/2017 8:12 AM EDT) P athologist Signature POC Glucose 284 (H) 65 - 199 [facility] mg/dL [facility] Comment: Supplemental ranges: <140 mg/dL before meals <180 mg/dL all other times of the day Specimen Anatomical Collection Method Collection Time Receive d Time (Source) Location / / Volume Laterality Blood specimen 03/11/2017 8:12 AM 017 8:12 (specimen) EDT AM EDT Mariama Bravo MD POINT OF CARE TEST ORDERABLE S Performing Organization Address [facility] Code Phon e Number [address] EKG 12 Lead (03/11/2017 7:19 AM EDT) Component Value Ref Range Test Analysis Performed Pathologis t Method Time At Signature Ventricular rate 67 BPM MUSE SYSTEM Atrial Rate 67 BPM MUSE SYSTEM P-R Interval 202 ms MUSE SYSTEM QRS Duration 84 ms MUSE SYSTEM Q-T Interval 420 ms MUSE SYSTEM QTC Calculated 443 ms MUSE SYSTEM (Bezet) Calculated P [place] 35 degrees MUSE SYSTEM Calculated R [place] -18 degrees MUSE SYSTEM Calculated T [place] 12 degrees MUSE SYSTEM INTERPRETATION Normal sinus rhythm MUSE SYSTEM Voltage criteria for left ventricular hypertrophy Inferior infarct (cited on or before 25-SEP-2016) When compared with ECG of 10-MAR-2017 11:45, No significant change was found Confirmed by MD Ortiz Timothy ([id number]) on 03/11/2017 8:34:40 A M Specimen Anatomical Collection Method Collection Time Receive d Time (Source) Location / / Volume Laterality 03/11/2017 7:19 AM 7 8:34 EDT AM EDT Mariama Bravo MD ECG ORDERABLES Performing Organization Address City/[facility]/ZIP Code Phon e Number MUSE SYSTEM (ABNORMAL) POCT Glucose (03/11/2017 7:02 AM EDT) P athologist Signature POC Glucose 224 (H) 65 - 199 [facility] mg/dL [facility] Comment: Supplemental ranges: <140 mg/dL before meals <180 mg/dL all other times of the day Specimen Anatomical Collection Method Collection Time Receive d Time (Source) Location / / Volume Laterality Blood specimen 03/11/2017 7:02 AM 017 7:02 (specimen) EDT AM EDT Mariama Bravo MD POINT OF CARE TEST ORDERABLE S Performing Organization Address City/State/ZIP [place] [address] Differential, Automated (03/11/2017 4:00 AM EDT) athologist Signature Neutrophils % 67.3 % [facility] Neutr Abs (ANC) 3.48 1.70 - [facility] 6.10 [facility] x10(3)/[facility] LABORATORY Lymphocytes % 20.9 % [facility] Lymphocytes Abs 1.1 0.9 - 3.2 [facility] x10(3)/[facility] LABORATORY Monocytes % 9.5 % [facility] Monocyte Abs 0.5 0.3 - 0.9 [facility] x10(3)/[facility] LABORATORY Eosinophils % 1.5 % [facility] Eosinophils Abs 0.1 0.0 - 0.4 [facility] x10(3)/[facility] LABORATORY Basophils % 0.6 % [facility] Basophils Abs 0.0 0.0 - 0.1 [facility] x10(3)/[facility] LABORATORY Immature Gran % 0.20 % [facility] Comment: Immature granulocytes(IG's)percentage an d absolute count will include metamyelocytes, myelocytes, and promyelo cytes. Blood smears from CBCs yielding IG's will be scanned manually for concor dance. If this scan disagrees with the automated IG or if promyelocytes are not ed, a manual differential will be performed. Nikole Gran Abs 0.01 0.00 - 0.04 x10(3)/[facility] LABORATORY Specimen Anatomical Collection Method Collection Time Receive d Time (Source) Location / / Volume Laterality Blood specimen 03/11/2017 4:00 AM 017 4:05 (specimen) EDT AM EDT Resulting Agency Comment Spec In Lab Mariama Bravo MD HEMATOLOGY ORDERABLES Performing Organization Address City/State/[place] [address] (ABNORMAL) Hemogram (03/11/2017 4:00 AM EDT) Analysis Performed At Patho logist Time Signature WBC 5.2 4.0 - 9.5 [facility] x10(3)/[facility] LABORATORY RBC 4.59 4.58 - [place] LOY 5.54 [facility] x10(6)/[facility] LABORATORY Hemoglobin 14.2 13.7 - [facility] 16.5 gm/dL [facility] Hematocrit 40.2 (L) 40.5 - [facility] 48.5 % [facility] MCV 87.6 82.9 - [facility] 93.[address] [facility] LABORATORY MCH 30.9 27.5 - [place] 32.1 pg [facility] MCHC 35.3 32.0 - [place] 35.7 gm/dL [facility] Platelets 122 (L) 145 - 357 [facility] x10(3)/[facility] LABORATORY RDWSD 37.5 36.0 - [facility] 45.[address] [facility] LABORATORY RDWCV 11.7 11.4 - [facility] 13.8 % [facility] MPV 9.3 7.6 - 12.9 [facility] nRBC % Auto 0.0 % [facility] nRBC Abs Auto 0.000 0.000 - [facility] 0.000 [facility] x10(3)/[facility] LABORATORY Specimen Anatomical Collection Method Collection Time Receive d Time (Source) Location / / Volume Laterality Blood specimen 03/11/2017 4:00 AM 017 4:05 (specimen) EDT AM EDT Resulting Agency Comment Spec In Lab Mariama Bravo MD HEMATOLOGY ORDERABLES Performing Organization Address City/State/[place] [address] (ABNORMAL) BMP w/fasting Glucose (03/11/2017 4:00 AM EDT) athologist Signature Glucose 196 (H) 65 - 99 [facility] Fasting mg/dL [facility] Comment: ?Fasting* Glucose Interpretive C riteria [...] of Diabetes Mellitus, Position Statement from the [place] [employer]. ??Diabete s Care, Volume 33, Supplement 1, Nov 2009 BUN 12 10 - 20 mg/dL [facility] LABOR[facility] Creatinine 0.65 (L) 0.80 - 1.50 mg/dL [facility] Comment: Please note that the pediatric reference intervals supplied above were not validated at [facility]. Results from pediatri c patients should be interpreted in conjunction to the patient's age, height and muscle mass. Sodium 138 135 - 145 mmol/L [facility] Potassium 4.0 3.5 - 5.0 mmol/L [facility] Comment: Please note: ??Patients with WBC >100,00 0 may have falsely elevated Potassium levels. ??For accurate Potassium quantif ication in these patients send serum separator tube (gold top) for subsequent determinations. ??Contact the Clinical Chemistry Laboratory if there are any qu estions. Chloride 99 98 - 107 mmol/L [facility] CO2 26 22 - 31 mmol/L [facility] Anion Gap 13 5 - 15 mmol/L [facility]ORY Calcium 9.0 8.5 - 10.5 mg/dL [facility] Estimated GFR >60 >=60 [facility] Comment: This estimated GFR [...] the following links into your internet browser. [email or web address] Specimen Anatomical Collection Method Collection Time Receive d Time (Source) Location / / Volume Laterality Blood specimen 03/11/2017 4:00 AM 017 4:05 (specimen) EDT AM EDT Resulting Agency Comment Spec In Lab Mariama Bravo MD CHEMISTRY ORDERABLES Performing Organization Address City/State/ZIP [place] [address] Cardiac Enzymes (03/11/2017 4:00 AM EDT) athologist Signature Troponin-T <0.03 <=0.03 [facility] ng/mL [facility] Comment: 0.03 ng/mL: Represents the 99th percenti le upper reference limit for normals. >0.03 ng/mL: Elevated cardiac troponin T level indicative of myocardial damage. Diagnosis of acute, evolving or recent M I requires a typical rise and gradual fall of cTnT with at least ONE of the fo llowing: a) Ischemic symptoms b) Development of pathologic Q waves on the ECG c) ECG changes indicative of eschemia (S -T segment elevation/depression) d) Coronary artery intervention Serial bloods should be obtained for khanh ting on admission, at 6 to 9 hrs and again at 12 to 24 hrs if earlier samples are negative and the clinical index of suspicion is high. Reference: [Myocardial infarction redefined? a consensus document of the Joint Society of Cardiology/[place] [employer] o f [employer] Committee for the redefinition of myocardial infarction. ? ?Journal of the [place] College [employer] 2000; 36: 959-969] CK, Total 111 0 - 200 unit/L [facility] Specimen Anatomical Collection Method Collection Time Receive d Time (Source) Location / / Volume Laterality Blood specimen 03/11/2017 4:00 AM 017 4:05 (specimen) EDT AM EDT Resulting Agency Comment Spec In Lab Mariama Bravo MD CHEMISTRY ORDERABLES Performing Organization Address City/State/[place] [address] SCAN DOC: [employer]INE [employer]ER (03/11/2017 12:00 AM EDT) Narrative 03/11/2017 12:00 AM EDT This result has an attachment that is no t available. Ordered by an unspecified provider. Scanning Provider MEDIA MGR SCAN EXT ORDR/RSLT POCT Glucose (03/10/2017 8:24 PM EDT) athologist Signature POC Glucose 182 65 - 199 [facility] mg/dL [facility] Comment: Supplemental ranges: <140 mg/dL before meals <180 mg/dL all other times of the day Specimen Anatomical Collection Method Collection Time Receive d Time (Source) Location / / Volume Laterality Blood specimen 03/10/2017 8:24 PM 017 8:24 (specimen) EDT PM EDT Mariama Bravo MD POINT OF CARE TEST ORDERABLE S Performing Organization Address City/[facility]/[place] [address] (ABNORMAL) POCT Glucose (03/10/2017 6:11 PM EDT) P athologist Signature POC Glucose 249 (H) 65 - 199 [facility] mg/dL [facility] Comment: Supplemental ranges: <140 mg/dL before meals <180 mg/dL all other times of the day Specimen Anatomical Collection Method Collection Time Receive d Time (Source) Location / / Volume Laterality Blood specimen 03/10/2017 6:11 PM 017 6:11 (specimen) EDT PM EDT Mariama Bravo MD POINT OF CARE TEST ORDERABLE S Performing Organization Address City/[facility]/[place] [address] (ABNORMAL) POCT Glucose (03/10/2017 3:50 PM EDT) athologist Signature POC Glucose 250 (H) 65 - 199 [facility] mg/dL [facility] Comment: Supplemental ranges: <140 mg/dL before meals <180 mg/dL all other times of the day Specimen Anatomical Collection Method Collection Time Receive d Time (Source) Location / / Volume Laterality Blood specimen 03/10/2017 3:50 PM 017 3:50 (specimen) EDT PM EDT Mariama Bravo MD POINT OF CARE TEST ORDERABLE S Performing Organization Address City/State/[place] [address] POCT Glucose (03/10/2017 11:52 AM EDT) athologist Signature POC Glucose 196 65 - 199 [facility] mg/dL [facility] Comment: Supplemental ranges: <140 mg/dL before meals <180 mg/dL all other times of the day Specimen Anatomical Collection Method Collection Time Receive d Time (Source) Location / / Volume Laterality Blood specimen 03/10/2017 11:52 7 (specimen) AM EDT 11:52 AM EDT Mariama Bravo MD POINT OF CARE TEST ORDERABLE S Performing Organization Address City/[facility]/[place] [address] EKG 12 Lead (03/10/2017 11:45 AM EDT) Component Value Ref Range Test Analysis Performed Pathologis t Method Time At Signature Ventricular rate 66 BPM MUSE SYSTEM Atrial Rate 66 BPM MUSE SYSTEM P-R Interval 210 ms MUSE SYSTEM QRS Duration 96 ms MUSE SYSTEM Q-T Interval 424 ms MUSE SYSTEM QTC Calculated 444 ms MUSE SYSTEM (Bezet) Calculated P [place] 44 degrees MUSE SYSTEM Calculated R [place] -12 degrees MUSE SYSTEM Calculated T [place] -8 degrees MUSE SYSTEM INTERPRETATION Sinus rhythm with 1st degree A-V block MUSE SYSTEM Moderate voltage criteria for LVH, may be normal variant Inferior infarct (cited on or before 25-SEP-2016) When compared with ECG of 27-SEP-2016 07:27, No significant change was found Confirmed by MD Gogo, Junior ([id number]) on 03/10/2017 4:5 7:05 PM Specimen Anatomical Collection Method Collection Time Receive d Time (Source) Location / / Volume Laterality 03/10/2017 11:45 03/10/2017 4:57 AM EDT PM EDT Mariama Bravo MD ECG ORDERABLES Performing Organization Address City/State/ZIP Code Phon e Number MUSE SYSTEM (ABNORMAL) BMP w/fasting Glucose (03/10/2017 8:43 AM EDT) athologist Signature Glucose 223 (H) 65 - 99 [facility] Fasting mg/dL [facility] Comment: ?Fasting* Glucose Interpretive C riteria [...] of Diabetes Mellitus, Position Statement from the [place] [employer]. ??Diabete s Care, Volume 33, Supplement 1, Nov 2009 BUN 11 10 - 20 mg/dL [facility] Creatinine 0.75 (L) 0.80 - 1.50 mg/dL [facility] Comment: Please note that the pediatric reference intervals supplied above were not validated at [facility]. Results from pediatri c patients should be interpreted in conjunction to the patient's age, height and muscle mass. Sodium 139 135 - 145 mmol/L [facility] Potassium 4.4 3.5 - 5.0 mmol/L [facility] Comment: Please note: ??Patients with WBC >100,00 0 may have falsely elevated Potassium levels. ??For accurate Potassium quantif ication in these patients send serum separator tube (gold top) for subsequent determinations. ??Contact the Clinical Chemistry Laboratory if there are any qu estions. Chloride 96 (L) 98 - 107 mmol/L [facility] CO2 28 22 - 31 mmol/L [facility] Anion Gap 15 5 - 15 mmol/L [facility] Calcium 9.5 8.5 - 10.5 mg/dL [facility] Estimated GFR >60 >=60 [facility] Comment: This estimated GFR [...] the following links into your internet browser. [email or web address] Specimen Anatomical Collection Method Collection Time Receive d Time (Source) Location / / Volume Laterality Blood specimen 03/10/2017 8:43 AM 017 9:12 (specimen) EDT AM EDT Resulting Agency Comment Spec In Lab Benedicto Oconnor Jr., MD CHEMISTRY ORDERABLES Performing Organization Address City/State/ZIP Code Phon e Number [place] [id number] documented in this encounter Visit Diagnoses Diagnosis ASCVD (arteriosclerotic cardiovascular d isease) Unspecified cardiovascular disease S/P coronary angioplasty Postsurgical percutaneous transluminal c oronary angioplasty status CAD (coronary artery disease) Coronary atherosclerosis of unspecified type of vessel, port gamble or graft Vocal cord paralysis Paralysis of vocal cords or larynx, unsp ecified documented in this encounter Admitting Diagnoses Diagnosis CAD (coronary artery disease) Coronary atherosclerosis of unspecified type of vessel, port gamble or graft documented in this encounter Administered Medications Inactive Administered Medications - up to 3 most recent administrations Medication Order MAR Action Action Date Dose Rate Site acetaminophen (TYLENOL) tablet 650 mg 650 mg, Oral, EVERY 6 HOURS PRN, Startin g on Thu03/10/17 at 1136, Until Thu03/11/17 at 1235, Pain, Mild Pain, Maximum dose o f acetaminophen is 4000 mg from all sources in 24 hours., Routine amLODIPine (NORVASC) tablet 10 mg Given 03/11/2017 8:16 AM EDT 10 mg 10 mg, Oral, DAILY, First dose on Thu03/11/17 at 0900, Until Discontinued, Routine amLODIPine (NORVASC) tablet 5 mg Given 03/10/2017 3:50 PM EDT 5 mg 5 mg, Oral, ONCE, 1 dose, On Thu03/10/17 at 1400, Routine aspirin EC tablet 81 mg Given 03/11/2017 8:16 AM EDT 81 mg 81 mg, Oral, DAILY, First dose on Thu03/11/17 at 0900, Until Discontinued, Routine atorvastatin (LIPITOR) tablet 80 mg Given 03/10/2017 4:16 PM EDT 80 mg 80 mg, Oral, EVERY EVENING, First dose on Thu03/10/17 at 1700, Until Discontinued, Routine clopidogrel (PLAVIX) tablet 75 mg Given 03/11/2017 8:18 AM EDT 75 mg 75 mg, Oral, DAILY, First dose on Thu03/11/17 at 0900, Until Discontinued, Routine dextrose 50% injection 25-50 mL 25-50 mL (12.5-25 g), Intravenous, EVERY 1 HOUR PRN, S tarting on Thu03/10/17 at 1255, Until Thu03/11/17 at 1235, Low blo od sugar, For BG 50-70: 120 mL Juice or Regular (not diet) soda OR 12.5 gram (25 mL) Dextrose 50% IV OR, if no IV access, 1 mg Glucagon IM. Recheck BG in 30 minut es. May repeat juice, dextrose or glucagon once per episode For BG less than 50: 240 mL Juice or Regular (not diet) soda OR 25 grams (50 mL) Dextrose 50% IV OR, if no IV access, 1 mg Glucagon IM. Recheck BG in 30 minutes. May repeat juice, dext kalia, or glucagon once per episode. To avoid extravasation, push Dextrose 50% SLOWLY (3 mL ov er 1 minute) in a patent, running IV, preferably a central line. For persisten t hypoglycemia, consider longer-acting treatment for the duration of the active insulin., Routine diaZEPam (VALIUM) tablet 5 mg Given 03/10/2017 10:15 AM EDT 5 mg 5 mg, Oral, ONCE, 1 dose, On Thu03/10/17 at 1015, Cath (Day of Procedure), Routine diphenhydrAMINE (BENADRYL) capsule 25 mg Given 03/10/2017 10:15 AM EDT 25 mg 25 mg, Oral, ONCE, 1 dose, On Thu03/10/17 at 1015, Cath (Day of Procedure), Routine glucagon (human recombinant) injection S olR 1 mg 1 mg, Intramuscular, EVERY 1 HOUR PRN, S tarting on Thu03/10/17 at 1255, Until Thu03/11/17 at 1235, Low blood sugar, For BG 50-70: 120 mL Juice or Regular (not diet) soda OR 12.5 gram (25 mL) Dextrose 50% IV OR, if no IV access, 1 mg Glucagon IM. Recheck BG in 30 minutes. May repeat juice, dext kalia or glucagon once per episode For BG less than 50: 240 mL Ju ice or Regular (not diet) soda OR 25 grams (50 mL) Dextrose 50% IV OR, if no IV acc ess, 1 mg Glucagon IM. Recheck BG in 30 minutes. May repeat juice, dextrose, or glucagon once per episode. To avoid extravasation, push Dextrose 50% SLOWLY (3 mL over 1 minute) in a patent, running IV, preferably a central line. For persistent hypogl ycemia, consider longer-acting treatment for the duration of the active insulin. , Routine insulin lispro (humaLOG) VIAL injection 1-4 Given 02/15 10:17 AM EDT 4 Units Units 1-4 Units, Subcutaneous, 3 TIMES DAILY BEFORE MEALS, First dose on Thu03/10/17 at 1630, Until Discontinued, CORRECTION BOLUS Sensitive to insulin lean patient or total daily dose of all insulin needed to achieve glycemic control less than 30 units BG 140 - 160 Give 1 unit BG 161 - 200 Give 2 units BG 201 - 240 Give 3 units BG greater than 240, give 4 units and recheck BG in 2 hours. If BG remains greater than 240, repeat 4 units (no more than three times) & call for new basal insulin orders. If less than 240 after two hours, give no insulin and resume prior schedule., Routine Given 03/11/2017 8:09 AM EDT 4 Units Given 03/10/2017 6:19 PM EDT 4 Units lisinopril (PRINIVIL;ZESTRIL) tablet 40 mg Given 03/11/2017 8:17 AM EDT 40 mg 40 mg, Oral, DAILY, First dose on Thu03/11/17 at 0900, Until Discontinued, Routine meTOPROLOL succinate (TOPROL-XL) XL tablet 75 Given 8:19 AM EDT 75 mg mg 75 mg, Oral, DAILY, First dose on Thu03/11/17 at 0900, Until Discontinued, DO NOT CRUSH OR OPEN, Routine nitroGLYcerin (NITROSTAT) SL tablet 0.4 mg 0.4 mg, Sublingual, EVERY 5 MIN PRN, Starting on Thu at 1137, Until Thu03/11/17 at 1235, Chest pain, May repeat every 5 minutes for a total of three doses. Notify provider if chest pain not reliev ed with nitroglycerin. Do not administer nitroglycerin if the patinet has received or taken akila sphodiesterase (PDE-5) inhibitors such as sildenafil, tadalafil or vardenafil within the last 24 to 72 hours., Recovery (Recovery-Hospital Unit), Routine sodium chloride 0.9% infusion New Bag 03/10/2017 12:00 PM EDT 100 mL/hr 100 mL/hr 100 mL/hr, Intravenous, CONTINUOUS, Starting on Thu03/10/17 at 1200, Until Thu03/10/17 at 1359, Recovery (Recovery-Hospital Unit) zolpidem (AMBIEN) tablet 5 mg Given 03/10/2017 11:18 PM EDT 5 mg 5 mg, Oral, NIGHTLY PRN, Starting on Thu03/10/17 at 2149, Until Thu03/11/17 at 1235, Sleep, Routine documented in this encounter Active and Recently Administered Medications Times are shown in EDT. Scheduled Medication Order 03/09/2017 03/10/2017 03/11/2017 amLODIPine (NORVASC) tablet 10 mg 0816 (Given - Provider: Aleshia Pratt RN) 10 mg, Oral, DAILY, First dose on Thu at 0900, Until Discontinued, Routine amLODIPine (NORVASC) tablet 5 mg (COMPLETED) 1550 (Given - Provider: Aleshia Pratt RN) 5 mg, Oral, ONCE, 1 dose, Thu03/10/17 at 1400, Routine aspirin EC tablet 81 mg 0816 (Gi casa - Provider: Aleshia Pratt RN) 81 mg, Oral, DAILY, First dose on Thu at 0900, Until Discontinued, Routine atorvastatin (LIPITOR) tablet 80 mg 1616 (Given - Provider: Aleshia Pratt RN) 80 mg, Oral, EVERY EVENING, First dose o n Thu03/10/17 at 1700, Until Discontinued, Routine clopidogrel (PLAVIX) tablet 75 mg 0818 (Given - Provider: Aleshia Pratt RN) 75 mg, Oral, DAILY, First dose on Thu at 0900, Until Discontinued, Routine diaZEPam (VALIUM) tablet 5 mg (COMPLETED) 1015 (Given - Provider: Destinee Wong, ESTEFANIA) 5 mg, Oral, ONCE, 1 dose, Thu03/10/17 at 1015, Cath (D ay of Procedure), Routine diphenhydrAMINE (BENADRYL) capsule 25 mg (COMPLETED) 1015 (Given - Provider: Destinee Wong RN) 25 mg, Oral, ONCE, 1 dose, Thu03/10/17 a t 1015, Cath (Day of Procedure), Routine insulin lispro (humaLOG) VIAL injection 1-4 Units(Linked José Miguel up 1) 1617 (Given - Provider: Aleshia Pratt RN)1819 (Given - Provider: Aleshia Pratt RN) 0809 (Given - Provider: Aleshia Pratt RN)1017 (Given - Provider: Aleshia Pratt RN) 1-4 Units, Subcutaneous, 3 TIMES DAILY B EFORE MEALS, First dose on Thu03/10/17 at 1630, Until Discontinued, CORRECTION BOLUS Sensitive to insulin lean patient or total daily dose of all insulin need ed to achieve glycemic control less than 30 units BG 140 - 160 Give 1 unit BG 161 - 200 Give 2 units BG 201 - 240 Give 3 units BG greater than 240, give 4 units and recheck BG in 2 hours. If BG remains greater than 240, repeat 4 units (no mor e than three times) & call for new basal insulin orders. If less than 240 after two hours, give no insulin and resume prior schedule., Routine lisinopril (PRINIVIL;ZESTRIL) tablet 40 mg 816 (Given - Provider: Aleshia Prtat, ESTEFANIA) 40 mg, Oral, DAILY, First dose on Thu at 0900, Until Discontinued, Routine meTOPROLOL succinate (TOPROL-XL) XL tablet 75 mg 818 (Given - Provider: Aleshia Pratt, ESTEFANIA) 75 mg, Oral, DAILY, First dose on Thu at 0900, Until Discontinued, DO NOT CRUSH OR OPEN, Routine Continuous Medication Order 03/09/2017 03/10/2017 03/11/2017 sodium chloride 0.9% infusion () 1200 (New Bag - Provider: Aleshia Pratt RN) 100 mL/hr, at 100 mL/hr, Intravenous, CO NTINUOUS, Starting Thu03/10/17 at 1200, Until Thu03/10/17 at 1359, Recovery (Recovery-Hospital Unit) PRN Medication Order 03/09/2017 03/10/2017 03/11/2017 acetaminophen (TYLENOL) tablet 650 mg 650 mg, Oral, EVERY 6 HOURS PRN, Startin g Thu03/10/17 at 1136, Until Thu03/11/17 at 1235, Pain, Mild Pain, Maximum dose of acetaminophen is 4000 mg from all sources in 24 hours., Routine dextrose 50% injection 25-50 mL(Linked Group 2) 25-50 mL (12.5-25 g), Intravenous, EVERY 1 HOUR PRN, Starting Thu03/10/17 at 1255, Until Thu03/11/17 at 1235, Low blood sugar, For BG 50-70: 120 mL Juice or Regular (not diet) soda OR 12.5 gram (25 mL ) Dextrose 50% IV OR, if no IV access, 1 mg Glucagon IM. Recheck BG in 30 minutes. May repeat juice, dextrose or glucagon once per episode For BG less than 50: 240 mL Juice or Regular (not diet) sod a OR 25 grams (50 mL) Dextrose 50% IV OR , if no IV access, 1 mg Glucagon IM. Recheck BG in 30 minutes. May repeat juice, dextrose, or glucagon once per episode. To avoid extravasation, push Dextrose 50% SLOWLY (3 mL over 1 minute) in a pa tent, running IV, preferably a central line. For persistent hypoglycemia, consider longer-acting treatment for the duration of the active insulin., Routine fentaNYL 50 mcg/mL multi-dose injection (CANCELED) 1039 (Given - Provider: Shala Blake RN)1057 (Given - Provider: Shala Blake, ESTEFANIA)1111 (Given - Provider: Shala Blake RN) ONCE PRN, Starting Thu03/10/17 at 1039, Until Thu03/10/17 at 1159, Intra- Operative (Intra-Procedure), Routine glucagon (human recombinant) injection SolR 1 mg(Linked Group 2) 1 mg, Intramuscular, EVERY 1 HOUR PRN, S tarting Thu03/10/17 at 1255, Until Thu03/11/17 at 1235, Low blood sugar, For BG 50-70: 120 mL Juice or Regular (not diet) soda OR 12.5 gram (25 mL) Dextrose 50% IV OR, if no IV access, 1 mg Glucagon I M. Recheck BG in 30 minutes. May repeat juice, dextrose or glucagon once per episode For BG less than 50: 240 mL Juice or Regular (not diet) soda OR 25 grams (50 mL) Dextrose 50% IV OR, if no IV acc ess, 1 mg Glucagon IM. Recheck BG in 30 minutes. May repeat juice, dextrose, or glucagon once per episode. To avoid extravasation, push Dextrose 50% SLOWLY (3 mL over 1 minute) in a patent, running IV, preferably a central line. For persistent hypoglycemia, consider longer-acting treatment for the duration of the active insulin. , Routine heparin (porcine) injection (CANCELED) 1 044 (Given - Provider: Shala Blake RN) ONCE PRN, Starting Thu03/10/17 at 1044, Until Thu03/10/17 at 1159, Cath (Intra- Procedure), Routine iohexol (OMNIPAQUE) 350 mg/mL solution (CANCELED) 1112 (Given - Provider: Mariama Bravo MD) ONCE PRN, Starting Thu03/10/17 at 1112, Until Thu03/10/17 at 1159, Cath (Intra- Procedure), Routine midazolam (PF) (VERSED) 1 mg/mL multi-dose injection (CANCEL ED) 1039 (Given - Provider: Shala Blake, ESTEFANIA)1057 (Given - Provider: Shala Blake, ESTEFANIA) ONCE PRN, Starting Thu03/10/17 at 1039, Until Thu03/10/17 at 1159, Cath (Intra- Procedure), Routine nitroGLYcerin (NITROSTAT) SL tablet 0.4 mg 0.4 mg, Sublingual, EVERY 5 MIN PRN, Sta rting Thu03/10/17 at 1137, Until Thu03/11/17 at 1235, Chest pain, May repeat every 5 minutes for a total of three doses. Notify provider if chest pain not relieve d with nitroglycerin. Do not administer nitroglycerin if the patinet has received or taken phosphodiesterase (PDE-5) inhibitors such as sildenafil, tadalafil or vardenafil within the last 24 to 72 hours., Recovery (Recovery- Hospital Unit), Routine zolpidem (AMBIEN) tablet 5 mg 2318 (Given - Prov ider: Pili Smith RN) 5 mg, Oral, NIGHTLY PRN, Starting Thu at 2149, Until Thu03/11/17 at 1235, Sleep, Routine Linked Groups Order Group 1: POCT Fingerstick Glucose (CANCELED) Routine, 4 TIMES DAILY BEFORE MEALS & AT BEDTIME, First occurrence on Thu03/10/17 at 1700, Until Specified
Consider choosing FOUR TIMES A DAY BEFORE MEALS AND AT BEDTIME as frequency for: Patients who have a good hypoglycemia awareness And insulin lispro (humaLOG) VIAL injection 1-4 UnitsJump to med 1-4 Units, Subcutaneous, 3 TIMES DAILY B EFORE MEALS, First dose on Thu03/10/17 at 1630, Until Discontinued
CORRECTION BOLUS Sensitive to insulin lean patient or total ellie ly dose of all insulin needed to achieve glycemic control less than 30 units BG 140 - 160 Give 1 unit BG 161 - 200 Give 2 units BG 201 - 240 Give 3 units&n bsp; BG greater than 240, giv e 4 units and recheck BG in 2 hours. If BG remains greater than 240, repeat 4 units (no more than three times) & call for new basal insulin orders . If less than 240 after two hours, give no insulin and resume prior schedule.
Routine Group 2: dextrose 50% injection 25-50 mLJump to med 25-50 mL (12.5-25 g), Intravenous, EVERY 1 HOUR PRN, Starting Thu03/10/17 at 1255, Until Thu03/11/17 at 1235, Low blood sugar
For BG 50- 70: 120 mL Juice or Regular (not t) soda OR 12.5 gram (25 mL) Dextrose 50 % IV OR, if no IV access, 1 mg Glucagon IM. Recheck BG in 30 minutes. May repeat juice, dextrose or glucagon once per epis ode For BG less than 50: 240 mL J uice or Regular (not diet) soda OR 25 grams (50 mL) Dextrose 50% IV OR, if no IV access, 1 mg Glucagon IM. Recheck BG in 30 minutes. & nbsp;May repeat juice, dextrose, or gluc agon once per episode. To avoid extravasation, push Dextrose 50% SLOWLY (3 mL over 1 minute) in a patent, running IV, preferably a central line.&nb sp;For persistent hypoglycemia, consid er longer-acting treatment for the duration of the active insulin.
Routine Or glucagon (human recombinant) injection SolR 1 mgJump to med 1 mg, Intramuscular, EVERY 1 HOUR PRN, S tarting Thu03/10/17 at 1255, Until Thu03/11/17 at 1235, Low blood sugar
For BG 50-70: 120 mL Juice or Regular (not diet) soda OR 12. 5 gram (25 mL) Dextrose 50% IV OR, if no IV access, 1 mg Glucagon IM. Recheck BG in 30 minutes. May repeat juice, dextrose or glucagon once per episode * *For BG less than 50: 240 mL Juice or Re gular (not diet) soda OR 25 grams (50 mL) Dextrose 50% IV OR, if no IV access, 1 mg Glucagon IM. Recheck BG in 30 minutes. May repea t juice, dextrose, or glucagon once per episode. To avoid extravasation, push Dextrose 50% SLOWLY (3 mL over 1 minute) in a patent, running IV, preferably a central line. For persi stent hypoglycemia, consider longer-acti ng treatment for the duration of the active insulin.
Routine documented in this encounter Care Teams Budget Assistant Relationship Specialty Start Date End Date Librado Alvarado MD PCP - General 10/08/10 01/18/18 [address] [facility] [address] [place] [address] documented as of this encounter
--- OUTSIDE RECORDS SUMMARY | 2022-08-05 09:07 | XMS_ITS | Encounter Summary ---
:1955 Author Organization [facility] [place] [address] Care Team Providers Name Role Phone Librado Alvarado MD Primary Care Provider Reason for Visit Auth/Cert Specialty Diagnoses / Procedures Referred By Contact Refer red To Contact Diagnoses Other forms of angina pectoris Angina Procedures PRO CATH PLMT LEFT HEART CATH & ARTS W/INJ & ANGIO IMG S&I CARDIAC CATHETERIZATION Referral ID Status Reason Start Date Expiration Date Visits Requ ested Visits Authorized 1 1 Encounter Details Date Type Department Care Team Description 03/10/2017 Surgery Crm Marketing Analyst Alejandro Laws MD CARDIAC CATHETERIZATION [facility] [place] [address] [place] [address] [phone] Social History Tobacco Use Types Packs/Day Years [...] Sign Reading Time Taken Comments Blood Pressure 147/78 03/10/2017 9:53 AM EDT Pulse 59 03/10/2017 9:53 AM EDT Temperature 36.5 ??C (97.7 ??F) 03/10/2017 9:53 AM EDT Respiratory Rate 16 03/10/2017 9:53 AM EDT Oxygen Saturation 99% 03/10/2017 9:53 AM EDT Inhaled Oxygen Concentration - - Weight - - Height - - Body Mass Index - - documented in this encounter Discharge Summaries Tahmina Leone MD - 03/11/2017 8:24 AM EDT Discharge Summary Patient Name: Burton Mcnair Jr. Patient Age: 62 y.o. Language: Italian Race: White Ethnicity: Not nor Admit date: 03/10/2017 Discharge date and time: 03/11/2017 Attending Physician: Mariama Bravo MD Discharge Physician: Mariama Bravo MD Follow-up Recommendations for Providers: - dual antiplatelet regimen as follows: - aspirin 81 mg daily lifelong - clopidogrel 75 mg daily usp as tolerated - Of note, he had [...] priority for the procedure was Elective. The [facility] indication for the procedure was Stable angina. [...] appointments: -During 8am-5pm Thursday through Thursday call [phone] to speak with a nurse in the cardiology clinic -All other times call [phone] and ask to speak to the seat pack inspector salesperson flying squad. MEDICATIONS - restart your metformin on , 03/12/2017 - amlodipine has been increased to 10 mg daily - you need to be on daily Plavix usp and aspirin for lifetime to help prevent clots forming inside of your stent. - keep nitroglycerin with you at all times, if you have chest pain, can take 1 tablet under your tongue every 5 minutes up to 3 tablets. If your pain does not resolve you need to call 911. Return to usual actvities: 1 week, as tolerated. 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 Driving: No driving for 48 hours after catheterization. Follow up Appointments: Primary care provider: Cardiology: Librado Alvarado MD [phone] Follow up as planned or as needed. Dr. Benedicto Oconnor Call to confirm appointment Dr Mariama Bravo, [facility] Follow-up in 6 weeks General Instructions None Future Appointments and Orders Future Orders Complete By Expires Referral to Cardiac Rehab [[id number] Custom] As directed Process Instructions: If no progress note charted, please enter Clinical details in comments. Scheduling Instructions: Questions: My question or request is: s/p angioplasty. Cardiac rehab at [facility] Discharge References/Attachments None documented in this encounter Discharge Instructions Patient Tahmina Brooks MD - 03/10/2017 2:52 PM EDT Cardiology Instructions Call your doctor if: Chest pain, dyspnea, pain or swelling in legs occurs. If you have non-emergent questions between now and the time of your follow up appointments: -During 8am-5pm Thursday through Thursday call [phone] to speak with a nurse in the cardiology clinic -All other times call [phone] and ask to speak to the seat pack inspector salesperson flying squad. MEDICATIONS - restart your metformin on , 03/12/2017 - amlodipine has been increased to 10 mg daily - you need to be on daily Plavix usp and aspirin for lifetime to help prevent clots forming inside of your stent. - keep nitroglycerin with you at all times, if you have chest pain, can take 1 tablet under your tongue every 5 minutes up to 3 tablets. If your pain does not resolve you need to call 911. Return to usual actvities: 1 week, as tolerated. 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 Driving: No driving for 48 hours after catheterization. Follow up Appointments: Primary care provider: Cardiology: Librado Alvarado MD [phone] Follow up as planned or as needed. Dr. 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 He was referred to this [...] Event Surgery Catrachita Baez MD [facility] ANESTHESIOLOGY [place], [place] [address] (Wo rk) 12/15/2022 Office Visit Cardiology Damián Hart MD [facility] [place] [address] (Wo rk) 03/25/2050 Hospital Encounter Surgery Citlalli Richardson MD Vocal cord paralysis [facility] OTOLARYNGOLOGY [place], [place] [address] (Wo rk) Scheduled Referrals Name [...] (WITH DIFF) Routine 03/11/2017 4:00 AM EDT INTEGRATED PROGRAM TEACHER 03/11/2017 12:00 Results for this SCAN AM [...] (ABNORMAL) POCT Glucose (03/11/2017 10:16 AM EDT) athologist Signature POC Glucose 260 (H) 65 - 199 [facility] Comment: Supplemental ranges: <140 mg/dL before meals <180 mg/dL all other times of the day Specimen Anatomical Collection Method Collection Time Receive d Time (Source) Location / / Volume Laterality Blood specimen 03/11/2017 10:16 7 (specimen) AM EDT 10:16 AM EDT Mariama Bravo MD POINT OF CARE TEST ORDERABLE S Performing Organization Address City/[facility]/[place] [address] (ABNORMAL) POCT Glucose (03/11/2017 8:12 AM EDT) athologist Signature POC Glucose 284 (H) 65 - 199 [facility] Comment: Supplemental ranges: <140 mg/dL before meals <180 mg/dL all other times of the day Specimen Anatomical Collection Method Collection Time Receive d Time (Source) Location / / Volume Laterality Blood specimen 03/11/2017 8:12 AM 017 8:12 (specimen) EDT AM EDT Mariama Bravo MD POINT OF CARE TEST ORDERABLE S Performing Organization Address City/State/[place] [address] EKG 12 Lead (03/11/2017 7:19 AM EDT) Component Value Ref Range Test Analysis Performed Pathologis t Method Time At Signature Ventricular rate 67 BPM MUSE SYSTEM Atrial Rate 67 BPM MUSE SYSTEM P-R Interval 202 ms MUSE SYSTEM QRS Duration 84 ms MUSE SYSTEM Q-T Interval 420 ms MUSE SYSTEM QTC Calculated 443 ms MUSE SYSTEM (Bezet) Calculated P Castleberry 35 degrees MUSE SYSTEM Calculated R Castleberry -18 degrees MUSE SYSTEM Calculated T Castleberry 12 degrees MUSE SYSTEM INTERPRETATION Normal sinus rhythm MUSE SYSTEM Voltage criteria for left ventricular hypertrophy Inferior infarct (cited on or before 25-SEP-2016) When compared with ECG of 10-MAR-2017 11:45, No significant change was found Confirmed by MD Angel, Laci ([id number]) on 03/11/2017 8:34:40 A M Specimen Anatomical Collection Method Collection Time Receive d Time (Source) Location / / Volume Laterality 03/11/2017 7:19 AM 7 8:34 EDT AM EDT Mariama Bravo MD ECG ORDERABLES Performing Organization Address City/[facility]/ZIP Code Phon e Number MUSE SYSTEM (ABNORMAL) POCT Glucose (03/11/2017 7:02 AM EDT) P athologist Signature POC Glucose 224 (H) 65 - 199 [facility] mg/dL [facility] Comment: Supplemental ranges: <140 mg/dL before meals <180 mg/dL all other times of the day Specimen Anatomical Collection Method Collection Time Receive d Time (Source) Location / / Volume Laterality Blood specimen 03/11/2017 7:02 AM 017 7:02 (specimen) EDT AM EDT Mariama Bravo MD POINT OF CARE TEST ORDERABLE S Performing Organization Address City/[facility]/[place] [address] [facility] [address] Differential, Automated (03/11/2017 4:00 AM EDT) P athologist Signature Neutrophils % 67.3 % [facility] Neutr Abs (ANC) 3.48 1.70 - [facility] 6.10 [facility] x10(3)/[facility] LABORATORY Lymphocytes % 20.9 % [facility] Lymphocytes Abs 1.1 0.9 - 3.2 [facility] x10(3)/[facility] LABORATORY Monocytes % 9.5 % [facility] Monocyte Abs 0.5 0.3 - 0.9 [facility] x10(3)/[facility] LABORATORY Eosinophils % 1.5 % [facility] Eosinophils Abs 0.1 0.0 - 0.4 [facility] x10(3)/[facility] LABORATORY Basophils % 0.6 % [facility] Basophils Abs 0.0 0.0 - 0.1 [facility] x10(3)/[facility] LABORATORY Immature Gran % 0.20 % [facility] Comment: Immature granulocytes(IG's)percentage an d absolute count will include metamyelocytes, myelocytes, and promyelo cytes. Blood smears from CBCs yielding IG's will be scanned manually for concor dance. If this scan disagrees with the automated IG or if promyelocytes are not ed, a manual differential will be performed. Nikole Gran Abs 0.01 0.00 - 0.04 x10(3)/[facility] Specimen Anatomical Collection Method Collection Time Receive d Time (Source) Location / / Volume Laterality Blood specimen 03/11/2017 4:00 AM 017 4:05 (specimen) EDT AM EDT Resulting Agency Comment Spec In Lab Mariama Bravo MD HEMATOLOGY ORDERABLES Performing Organization Address City/State/[place] [address] (ABNORMAL) Hemogram (03/11/2017 4:00 AM EDT) Analysis Performed At Patho logist Time Signature WBC 5.2 4.0 - 9.5 [facility] x10(3)/[facility] LABORATORY RBC 4.59 4.58 - [facility] 5.54 [facility] x10(6)/[facility] LABORATORY Hemoglobin 14.2 13.7 - [facility] 16.5 gm/dL [facility] Hematocrit 40.2 (L) 40.5 - [facility] 48.5 % [facility] MCV 87.6 82.9 - JAIRO GRANADO 93.1 [facility] LABORATORY MCH 30.9 27.5 - JAIRO GRANADO 32.1 pg [facility] MCHC 35.3 32.0 - JAIRO GRANADO 35.7 gm/dL [facility] Platelets 122 (L) 145 - 357 JAIRO LOY x10(3)/[facility] LABORATORY RDWSD 37.5 36.0 - JAIRO GRANADO 45.0 [facility] LABORATORY RDWCV 11.7 11.4 - JAIRO GRANADO 13.8 % [facility] MPV 9.3 7.6 - 12.9 JAIRO GRANADO [facility] LABORATORY nRBC % Auto 0.0 % [facility] nRBC Abs Auto 0.000 0.000 - JAIRO GRANADO 0.000 [facility] x10(3)/[facility] LABORATORY Specimen Anatomical Collection Method Collection Time Receive d Time (Source) Location / / Volume Laterality Blood specimen 03/11/2017 4:00 AM 017 4:05 (specimen) EDT AM EDT Resulting Agency Comment Spec In Lab Mariama Bravo MD HEMATOLOGY ORDERABLES Performing Organization Address City/State/[place] [address] (ABNORMAL) BMP w/fasting Glucose (03/11/2017 4:00 AM EDT) P athologist Signature Glucose 196 (H) 65 - 99 JAIRO LOY Fasting mg/dL [facility] Comment: ?Fasting* Glucose Interpretive C riteria [...] of Diabetes Mellitus, Position Statement from the [place] Diabetes Association. ??Diabete s Care, Volume 33, Supplement 1, Nov 2009 BUN 12 10 - 20 mg/dL [facility] Creatinine 0.65 (L) 0.80 - 1.50 mg/dL [facility] Comment: Please note that the pediatric reference intervals supplied above were not validated at [facility]. Results from pediatri c patients should be interpreted in conjunction to the patient's age, height and muscle mass. Sodium 138 135 - 145 mmol/L [facility] Potassium 4.0 3.5 - 5.0 mmol/L [facility] Comment: Please note: ??Patients with WBC >100,00 0 may have falsely elevated Potassium levels. ??For accurate Potassium quantif ication in these patients send serum separator tube (gold top) for subsequent determinations. ??Contact the Clinical Chemistry Laboratory if there are any qu estions. Chloride 99 98 - 107 mmol/L [facility] CO2 26 22 - 31 mmol/L [facility] Anion Gap 13 5 - 15 mmol/L [facility] Calcium 9.0 8.5 - 10.5 mg/dL [facility] Estimated GFR >60 >=60 [facility] Comment: This estimated GFR (eGFR) value [...] the following links into your internet browser. [email or web address] [email or web address] Specimen Anatomical Collection Method Collection Time Receive d Time (Source) Location / / Volume Laterality Blood specimen 03/11/2017 4:00 AM 017 4:05 (specimen) EDT AM EDT Resulting Agency Comment Spec In Lab Mariama Bravo MD CHEMISTRY ORDERABLES Performing Organization Address [facility]/ZIP [facility] Phon e Number [place] [phone] Cardiac Enzymes (03/11/2017 4:00 AM EDT) athologist Signature Troponin-T <0.03 <=0.03 [facility] ng/mL [facility] Comment: 0.03 ng/mL: Represents the 99th [...] consensus document of the Joint Society of Cardiology/[employer] College o f [employer] Committee for the redefinition of myocardial infarction. ? ?Journal of the [place] College of Cardiology 2000; 36: 959-969] CK, Total 111 0 - 200 unit/L [facility] Specimen Anatomical Collection Method Collection Time Receive d Time (Source) Location / / Volume Laterality Blood specimen 03/11/2017 4:00 AM 017 4:05 (specimen) EDT AM EDT Resulting Agency Comment Spec In Lab Mariama Bravo MD CHEMISTRY ORDERABLES Performing Organization Address [facility]/[place] [address] SCAN DOC: INTEGRATED PROGRAM TEACHER (03/11/2017 12:00 AM EDT) Narrative 03/11/2017 12:00 AM EDT This result has an attachment that is no t available. Ordered by an unspecified provider. Scanning Provider MEDIA MGR SCAN EXT ORDR/RSLT POCT Glucose (03/10/2017 8:24 PM EDT) athologist Signature POC Glucose 182 65 - 199 [facility] Comment: Supplemental ranges: <140 mg/dL before meals <180 mg/dL all other times of the day Specimen Anatomical Collection Method Collection Time Receive d Time (Source) Location / / Volume Laterality Blood specimen 03/10/2017 8:24 PM 017 8:24 (specimen) EDT PM EDT Mariama Bravo MD POINT OF CARE TEST ORDERABLE S Performing Organization Address City/State/[place] [address] (ABNORMAL) POCT Glucose (03/10/2017 6:11 PM EDT) athologist Signature POC Glucose 249 (H) 65 - 199 [facility] mg/dL [facility] Comment: Supplemental ranges: <140 mg/dL before meals <180 mg/dL all other times of the day Specimen Anatomical Collection Method Collection Time Receive d Time (Source) Location / / Volume Laterality Blood specimen 03/10/2017 6:11 PM 017 6:11 (specimen) EDT PM EDT Mariama Bravo MD POINT OF CARE TEST ORDERABLE S Performing Organization Address City/State/[place] [address] (ABNORMAL) POCT Glucose (03/10/2017 3:50 PM EDT) athologist Signature POC Glucose 250 (H) 65 - 199 JAIRO FERN[place]NDEZLOY mg/dL [facility] Comment: Supplemental ranges: <140 mg/dL before meals <180 mg/dL all other times of the day Specimen Anatomical Collection Method Collection Time Receive d Time (Source) Location / / Volume Laterality Blood specimen 03/10/2017 3:50 PM 017 3:50 (specimen) EDT PM EDT Mariama Bravo MD POINT OF CARE TEST ORDERABLE S Performing Organization Address City/State/[place] [address] POCT Glucose (03/10/2017 11:52 AM EDT) P athologist Signature POC Glucose 196 65 - 199 JAIRO GRANADO mg/dL [facility] Comment: Supplemental ranges: <140 mg/dL before meals <180 mg/dL all other times of the day Specimen Anatomical Collection Method Collection Time Receive d Time (Source) Location / / Volume Laterality Blood specimen 03/10/2017 11:52 7 (specimen) AM EDT 11:52 AM EDT Mariama Bravo MD POINT OF CARE TEST ORDERABLE S Performing Organization Address City/State/ZIP Code Phon e Number [facility] [place] [address] EKG 12 Lead (03/10/2017 11:45 AM EDT) Component Value Ref Range Test Analysis Performed Pathologis t Method Time At Signature Ventricular rate 66 BPM MUSE SYSTEM Atrial Rate 66 BPM MUSE SYSTEM P-R Interval 210 ms MUSE SYSTEM QRS Duration 96 ms MUSE SYSTEM Q-T Interval 424 ms MUSE SYSTEM QTC Calculated 444 ms MUSE SYSTEM (Bezet) Calculated P Castleberry 44 degrees MUSE SYSTEM Calculated R Castleberry -12 degrees MUSE SYSTEM Calculated T Castleberry -8 degrees MUSE SYSTEM INTERPRETATION Sinus rhythm with 1st degree A-V block MUSE SYSTEM Moderate voltage criteria for LVH, may be normal variant Inferior infarct (cited on or before 25-SEP-2016) When compared with ECG of 27-SEP-2016 07:27, No significant change was found Confirmed by MD Gogo, Marion ([id number]) on 03/10/2017 4:5 7:05 PM Specimen Anatomical Collection Method Collection Time Receive d Time (Source) Location / / Volume Laterality 03/10/2017 11:45 03/10/2017 4:57 AM EDT PM EDT Mariama Bravo MD ECG ORDERABLES Performing Organization Address City/State/ZIP Code Phon e Number MUSE SYSTEM (ABNORMAL) BMP w/fasting Glucose (03/10/2017 8:43 AM EDT) P athologist Signature Glucose 223 (H) 65 - 99 JAIRO GRANADO Fasting mg/dL [facility] Comment: ?Fasting* Glucose Interpretive C riteria [...] of Diabetes Mellitus, Position Statement from the [place] [employer]. ??Diabete s Care, Volume 33, Supplement 1, Nov 2009 BUN 11 10 - 20 mg/dL [facility] Creatinine 0.75 (L) 0.80 - 1.50 mg/dL [facility] Comment: Please note that the pediatric reference intervals supplied above were not validated at [facility]. Results from pediatri c patients should be interpreted in conjunction to the patient's age, height and muscle mass. Sodium 139 135 - 145 mmol/L [facility] Potassium 4.4 3.5 - 5.0 mmol/L [facility] Comment: Please note: ??Patients with WBC >100,00 0 may have falsely elevated Potassium levels. ??For accurate Potassium quantif ication in these patients send serum separator tube (gold top) for subsequent determinations. ??Contact the Clinical Chemistry Laboratory if there are any qu estions. Chloride 96 (L) 98 - 107 mmol/L [facility] CO2 28 22 - 31 mmol/L [facility] Anion Gap 15 5 - 15 mmol/L [facility] Calcium 9.5 8.5 - 10.5 mg/dL [facility] Estimated GFR >60 >=60 [facility] Comment: This estimated GFR (eGFR) value [...] the following links into your internet browser. [email or web address] [email or web address] Specimen Anatomical Collection Method Collection Time Receive d Time (Source) Location / / Volume Laterality Blood specimen 03/10/2017 8:43 AM 017 9:12 (specimen) EDT AM EDT Resulting Agency Comment Spec In Lab Benedicto Oconnor Jr., MD CHEMISTRY ORDERABLES Performing Organization Address City/State/[place] [address] documented in this encounter Visit Diagnoses Diagnosis ASCVD (arteriosclerotic cardiovascular d isease) Unspecified cardiovascular disease S/P coronary angioplasty Postsurgical percutaneous transluminal c oronary angioplasty status Angina effort Other and unspecified angina pectoris Vocal cord paralysis Paralysis of vocal cords or larynx, unsp ecified documented in this encounter Admitting Diagnoses Diagnosis CAD (coronary artery disease) Coronary atherosclerosis of unspecified type of vessel, quechan or graft documented in this encounter Administered [...] at 1015, Cath (Day of Procedure), Routine fentaNYL 50 mcg/mL multi-dose injection Given 03/10/2017 11:11 AM EDT 25 mcg ONCE PRN, Starting on Thu03/10/17 at 1039, Until Thu03/10/17 at 1159, Intra-Operative (Intra-Procedure), Routine Given 03/10/2017 10:57 AM EDT 25 mcg Given 03/10/2017 10:39 AM EDT 25 mcg glucagon (human recombinant) injection S olR 1 [...] active insulin. , Routine heparin (porcine) injection Given 03/10/2017 10:44 AM EDT 7,000 Units ONCE PRN, Starting on Thu03/10/17 at 1044, Until Thu03/10/17 at 1159, Cath (Intra-Procedure), Routine insulin lispro (humaLOG) VIAL injection 1-4 [...] Given 03/10/2017 6:19 PM EDT 4 Units iohexol (OMNIPAQUE) 350 mg/mL solution Given 03/10/2017 11:12 AM EDT 63 mLs ONCE PRN, Starting on Thu03/10/17 at 1112, Until Thu03/10/17 at 1159, Cath (Intra-Procedure), Routine lisinopril (PRINIVIL;ZESTRIL) tablet 40 mg Given 03/11/2017 8:17 AM EDT 40 mg 40 mg, Oral, DAILY, First dose on Thu03/11/17 at 0900, Until Discontinued, Routine meTOPROLOL succinate (TOPROL-XL) XL tablet 75 Given 8:19 AM EDT 75 mg mg 75 mg, Oral, DAILY, First dose on Thu03/11/17 at 0900, Until Discontinued, DO NOT CRUSH OR OPEN, Routine midazolam (PF) (VERSED) 1 mg/mL multi-dose Given 03/10/2017 10:5 7 AM EDT 1 mg injection ONCE PRN, Starting on Thu03/10/17 at 1039, Until Thu03/10/17 at 1159, Cath (Intra-Procedure), Routine Given 03/10/2017 10:39 AM EDT 1 mg nitroGLYcerin (NITROSTAT) SL tablet 0.4 mg 0.4 [...] 1015 (Given - Provider: Destinee Wong RN) 5 mg, Oral, ONCE, 1 dose, [...] Aleshia Pratt RN)1819 (Given - Provider: Aleshia Pratt, ESTEFANIA) 0809 (Given - Provider: Aleshia Pratt, ESTEFANIA)1017 (Given - Provider: Aleshia Pratt, ESTEFANIA) 1-4 Units, Subcutaneous, 3 TIMES DAILY B [...] 40 mg 816 (Given - Provider: Aleshia Pratt, ESTEFANIA) 40 mg, Oral, DAILY, First dose on Thu at 0900, Until Discontinued, Routine meTOPROLOL succinate (TOPROL-XL) XL tablet 75 mg 818 (Given - Provider: Aleshia Pratt, ESTEFANIA) 75 mg, Oral, DAILY, First dose on Thu at 0900, Until Discontinued, DO NOT CRUSH OR OPEN, Routine Continuous Medication Order 03/09/2017 03/10/2017 03/11/2017 sodium chloride 0.9% infusion () 1200 (New Bag - Provider: Aleshia Pratt, ESTEFANIA) 100 mL/hr, at 100 mL/hr, Intravenous, CO [...] Blake RN)1057 (Given - Provider: Shala Blake, RN)1111 (Given - Provider: Shala Blake, RN) ONCE PRN, Starting Thu03/10/17 at 1039, [...] (CANCEL ED) 1039 (Given - Provider: Shala Blake RN)1057 (Given - Provider: Shala Blake RN) ONCE [...] Intramuscular, EVERY 1 HOUR PRN, S tarting Tu03/10/17 at 1255, Until 03/11/17 at 1235, Low blood sugar
For BG [...]
Routine documented in this encounter Care Teams Front Loader Residential Driver Relationship Specialty Start Date End Date Librado Alvarado MD PCP - General 10/08/10 01/18/18 580 [facility] [address] [place] [address] documented as of this encounter
--- OUTSIDE RECORDS SUMMARY | 2022-08-05 09:07 | XMS_ITS | Encounter Summary ---
:1955 Author Organization [facility] [place] [address] Care Team Providers Name Role Phone Librado Alvarado MD Primary Care Provider Encounter Details Date Type Department Care Team Description 12/30/2017 Telephone Cardiology at [facility] Benedicto Oconnor Jr., MD [address] [place] [address] [place] [address] [place] [address] [phone] (Wo rk) Social History Tobacco Use Types [...] Notes Telephone Encounter - Courtney Jordan - 12/31/2017 4:52 PM EST appt scheduled 01/05/18 8:40 am Pt informed Telephone Encounter - Benedicto Oconnor Jr., MD - 12/31/2017 10:15 AM EST Fit in for ov next week Telephone Encounter - Kenroy Valdes RN - 12/30/2017 1:24 PM EST Patient returned call, he reports that starting yesterday he feels a whole lot better. He did report that last night he woke up after a nightmare with chest pain, which was relieved with 1 nitro. He said that yesterday and today he feels great and is able to do more activity without any symptoms. Next scheduled appt is 06/03/18. Telephone Encounter - Kenroy Valdes RN - 12/30/2017 11:37 AM EST 1 week phone check to see how patient is feeling after starting Ranolazine 500 mg twice a day. Left message for patient to call back. documented in this encounter Plan of Treatment Upcoming Encounters Date Type Specialty Care Team Description 03/25/2022 Anesthesia Event Surgery Catrachita Baez MD [facility] ANESTHESIOLOGY [place], [place] [address] (Wo rk) 12/15/2022 Office Visit Cardiology Damián Hart MD [facility] [address] [place] [address] (Wo rk) 03/25/2050 Hospital Encounter Surgery Citlalli Richardson MD Vocal cord paralysis [facility] OTOLARYNGOLOGY [place], [place] [address] (Wo rk) documented as of this encounter Visit Diagnoses Not on filedocumented in this encounter Care Teams Cook Taco Relationship Specialty Start Date End Date Librado Alvarado MD PCP - General 10/08/10 01/18/18 [address] [facility] [address] [place] [address] documented as of this encounter
--- OUTSIDE RECORDS SUMMARY | 2022-08-05 09:07 | XMS_ITS | Encounter Summary ---
:1955 Author Organization [facility] [place] [address] Care Team Providers Name Role Phone Librado Alvarado MD Primary Care Provider Reason for Visit Auth/Cert Specialty Diagnoses / Procedures Referred By Contact Refer red To Contact Diagnoses ASCVD (arteriosclerotic cardiovascular disease) ASCVD Procedures PRO CATH PLMT LEFT HEART CATH & ARTS W/INJ & ANGIO IMG S&I CARDIAC CATHETERIZATION Referral ID Status Reason Start Date Expiration Date Visits Requ ested Visits Authorized [id number] 1 1 Encounter Details Date Type Department Care Team Description 06/02/2017 Hospital Encounter Same Day Program at [facility], Chest pain, unspecified type; Gabrielle Chiang MD ASCVD (arteriosclerotic cardiovascular d isease); [facility] Diabetes mellitus without co mplication; [facility] DR Encounter for preprocedural laboratory e xamination [facility] CARDIOLOGY [place], [place] DEPT. [address] [place], [place] [phone] Social History Tobacco Use Types Packs/Day Years [...] Sign Reading Time Taken Comments Blood Pressure 129/76 06/02/2017 5:15 PM EDT Pulse 56 06/02/2017 5:05 PM EDT Temperature 36.6 ??C (97.9 ??F) 06/02/2017 5:05 PM EDT Respiratory Rate 16 06/02/2017 5:15 PM EDT Oxygen Saturation 97% 06/02/2017 5:15 PM EDT Inhaled Oxygen Concentration - - Weight 97.1 kg (214 lb 1.1 oz) 06/02/2017 1:47 PM EDT Height - - Body Mass Index 29.03 05/25/2017 2:46 PM EDT documented in this encounter Discharge Instructions Discharge [...] by your doctor, do not take any fgre-ewo-epgdgcd medicines orherbal preparations without first discussing this with your doctor or pharmacist. There is the possibility of side effect and interactions when these are combined. Follow up Care Who to Call with Questions or Problems If there are any questions or problems that you think might be related to your cardiac cath or angioplasty, contact the hogshead hooper manager valuation by calling [facility] at . documented in this encounter Medications [...] daily. Sustained Release 24 hrIndications: Atherosclerosis of [place] coronary artery with angina pectoris, unspecified whether [place] or transplanted heart amLODIPine (NORVASC) 10 Take [...] coronary intervention PI: Rigoberto Wyatt MD Pager# [phone] Consent: I met with Mr. Mcnair and [...] to participate, provided angiographic criteria were satisfied. uBrton was provided with a copy of the [...] Baez MD [facility] ANESTHESIOLOGY [place], [place] [address] (Wo rk) 12/15/2022 Office Visit Cardiology Damián Hart MD [facility] [place], [place] [address] (Wo rk) 03/25/2050 Hospital Encounter Surgery Citlalli Richardson MD Vocal cord paralysis [facility] OTOLARYNGOLOGY [place], [place] [address] (Wo rk) documented as of [...] Results POCT Glucose (06/02/2017 3:40 PM EDT) athologist Signature POC Glucose 168 65 - 199 [facility] mg[facility]dL [facility] Comment: Supplemental ranges: <140 mg/dL before meals <180 mg/dL all other times of the day Specimen Anatomical Collection Method Collection Time Receive d Time (Source) Location / / Volume Laterality Blood specimen 06/02/2017 3:40 PM 017 3:40 (specimen) EDT PM EDT Rigoberto Wyatt MD POINT OF CARE TEST ORDERABLE S Performing Organization Address City/State/ZIP Code Phon e Number [address] POCT Glucose (06/02/2017 10:33 AM EDT) athologist Signature POC Glucose 166 65 - 199 [facility] mg/dL [facility] Comment: Supplemental ranges: <140 mg/dL before meals <180 mg/dL all other times of the day Specimen Anatomical Collection Method Collection Time Receive d Time (Source) Location / / Volume Laterality Blood specimen 06/02/2017 10:33 7 (specimen) AM EDT 10:33 AM EDT Rigoberto Wyatt MD POINT OF CARE TEST ORDERABLE S Performing Organization Address City/State/[place] [address] Prothrombin Time (06/02/2017 10:18 AM EDT) athologist Signature PT 13.9 12.0 - 15.0 [facility] LABORATORY Comment: An INR <2.0 indicates adequate [...] linical circumstances. INR 1.0 0.9 - 1.1 [facility] LABORATORY Specimen Anatomical Collection Method Collection Time Receive d Time (Source) Location / / Volume Laterality Blood specimen Venous Draw / 06/02/2017 10:18 06/02/20 17 (specimen) Unknown AM EDT 10:22 AM EDT Resulting Agency Comment Spec In Lab Benedicto Oconnor Jr., MD HEMATOLOGY ORDERABLES Performing Organization Address [facility]/ZIP [facility] Phon e Number [address] APTT (06/02/2017 10:18 AM EDT) athologist Signature PTT 27 25 - 35 sec [facility] Comment: The recommended therapeutic range for fu ll dose, unfractionated heparin at [facility] is 80 ? 114 seconds. The use [...] ORDERABLES Performing Organization Address [facility] Phon e Number [address] Differential, Automated (06/02/2017 10:18 AM EDT) athologist Signature Neutrophils % 68.0 % [facility] Neutr Abs (ANC) 3.59 1.70 - [facility] 6.10 [facility] x10(3)/[facility] LABORATORY Lymphocytes % 21.2 % [facility] Lymphocytes Abs 1.1 0.9 - 3.2 [facility] x10(3)/[facility] LABORATORY Monocytes % 7.4 % [facility] Monocyte Abs 0.4 0.3 - 0.9 [facility] x10(3)/[facility] LABORATORY Eosinophils % 2.1 % [facility] Eosinophils Abs 0.1 0.0 - 0.4 [facility] x10(3)/[facility] LABORATORY Basophils % 0.9 % [facility] Basophils Abs 0.0 0.0 - 0.1 [facility] x10(3)/[facility] LABORATORY Immature Gran % 0.40 % [facility] Comment: Immature granulocytes(IG's)percentage an d absolute count will include metamyelocytes, myelocytes, and promyelo cytes. Blood smears from CBCs yielding IG's will be scanned manually for concor dance. If this scan disagrees with the automated IG or if promyelocytes are not ed, a manual differential will be performed. Nikole Gran Abs 0.02 0.00 - 0.04 x10(3)/[facility] LABORATORY Specimen Anatomical Collection Method Collection Time Receive d Time (Source) Location / / Volume Laterality Blood specimen Venous Draw / 06/02/2017 10:18 06/02/20 17 (specimen) Unknown AM EDT 10:22 AM EDT Resulting Agency Comment Spec In Lab Benedicto Oconnor Jr., MD HEMATOLOGY ORDERABLES Performing Organization Address City/State/ZIP Code Phon e Number [place] [phone] (ABNORMAL) Hemogram (06/02/2017 10:18 AM EDT) Analysis Performed At Patho logist Time Signature WBC 5.3 4.0 - 9.5 [facility] x10(3)/[facility] LABORATORY RBC 4.69 4.58 - [facility] 5.54 [facility] x10(6)/[facility] LABORATORY Hemoglobin 14.7 13.7 - [facility] 16.5 gm/dL [facility] Hematocrit 40.9 40.5 - [facility] 48.5 % [facility] MCV 87.2 82.9 - [facility] 93.1 fL [facility] MCH 31.3 27.5 - [facility] 32.1 pg [facility] MCHC 35.9 (H) 32.0 - [facility] 35.7 gm/dL [facility] Platelets 152 145 - 357 [facility] x10(3)/[facility] LABORATORY RDWSD 37.2 36.0 - [facility] 45.0 [facility] LABORATORY RDWCV 11.7 11.4 - [facility] 13.8 % [facility] LABORATORY MPV 9.3 7.6 - 12.9 [facility] LABORATORY nRBC % Auto 0.0 % [facility] nRBC Abs Auto 0.000 0.000 - [facility] 0.000 [facility] x10(3)/[facility] LABORATORY Specimen Anatomical Collection Method Collection Time Receive d Time (Source) Location / / Volume Laterality Blood specimen Venous Draw / 06/02/2017 10:18 06/02/20 17 (specimen) Unknown AM EDT 10:22 AM EDT Resulting Agency Comment Spec In Lab Benedicto Oconnor Jr., MD HEMATOLOGY ORDERABLES Performing Organization Address City/State/[place] [address] (ABNORMAL) BMP w/fasting Glucose (06/02/2017 10:18 AM EDT) athologist Signature Glucose 198 (H) 65 - 99 [facility] Fasting mg/dL [facility] Comment: ?Fasting* Glucose Interpretive C [...] of Diabetes Mellitus, Position Statement from the [place] [employer]. ??Diabete s Care, Volume 33, Supplement 1, Nov 2009 BUN 10 10 - 20 mg/dL [facility] Creatinine 0.74 (L) 0.80 - 1.50 mg/dL [facility] Comment: Please note that the pediatric reference intervals supplied above were not validated at [facility]. Results from pediatri c patients should be interpreted in conjunction to the patient's age, height and muscle mass. Sodium 138 135 - 145 mmol/L [facility] Potassium 4.4 3.5 - 5.0 mmol/L [facility] Comment: Please note: ??Patients with WBC >100,00 0 may have falsely elevated Potassium levels. ??For accurate Potassium quantif ication in these patients send serum separator tube (gold top) for subsequent determinations. ??Contact the Clinical Chemistry Laboratory if there are any qu estions. Chloride 97 (L) 98 - 107 mmol/L [facility] CO2 26 22 - 31 mmol/L [facility] Anion Gap 15 5 - 15 mmol/L [facility] Calcium 9.8 8.5 - 10.5 mg/dL [facility] Estimated GFR >60 >=60 [facility] Comment: This estimated GFR (eGFR) [...] the following links into your internet browser. [email or web address] [email or web address] Specimen Anatomical Collection Method Collection Time Receive d Time (Source) Location / / Volume Laterality Blood specimen 06/02/2017 10:18 7 (specimen) AM EDT 10:22 AM EDT Resulting Agency Comment Spec In Lab Benedicto Oconnor Jr., MD CHEMISTRY ORDERABLES Performing Organization Address City/State/[place] [address] documented in this encounter Visit Diagnoses Diagnosis Chest pain, unspecified type ASCVD (arteriosclerotic cardiovascular d isease) Unspecified cardiovascular disease Diabetes mellitus without complication Type II or unspecified type diabetes nakul litus without mention of complication, not stated as uncontrolled Encounter for preprocedural laboratory e xamination Pre-procedural laboratory examination Vocal cord paralysis Paralysis of vocal cords or larynx, unsp ecified documented in this encounter Administered Medications Inactive Administered Medications - up to 3 most recent administrations Medication Order MAR Action Action Date Dose Rate Site sodium chloride 0.9% New Bag 06/02/2017 3:50 PM EDT 75 mL/hr 75 mL/hr infusion 75 mL/hr, Intravenous, CONTINUOUS, Starting on Thu06/02/17 [...] injection (CANCELED) 1353 (Given - Provider: Roxy Richardson RN) ONCE PRN, Starting Thu06/02/17 at 1353, Until Thu06/02/17 at 1517, Intra- Operative (Intra-Procedure), Routine heparin (porcine) injection (CANCELED) 1409 (Given - Provider: Rigoberto Wyatt MD)1428 (Given - Provider: Rigoberto Wyatt MD) ONCE PRN, Starting Thu06/02/17 at 1409, Until Thu06/02/17 at 1517, Cath (Intra- Procedure), Routine iohexol (OMNIPAQUE) 350 mg/mL solution (CANCELED) 1515 (Given - Provider: Rigoberto Wyatt MD - Comment: Contrast in Electronic Masking System Operator) ONCE PRN, Starting Thu06/02/17 at 1515, Until Thu06/02/17 at 1517, Cath (Intra- Procedure), Routine midazolam (PF) (VERSED) 1 mg/mL multi-dose injection (CANCELED) 1353 (Given - Provider: Roxy L Dylan, RN) ONCE PRN, Starting 06/02/17 at 1353, Until e 06/02/17 at 1517, Cath (Intra- Procedure), Routine nitroGLYcerin 100 mcg/mL intracoronary dilution (CANCELED) 1434 (Given - Provider: Rigoberto Wyatt MD - Comment: into OM1)1456 (Given - Provider: Rigoberto Wyatt MD - Comment: into RCA) ONCE PRN, Starting 06/02/17 at 1434, Until Thu06/02/17 at 1517, Cath (Intra- Procedure), Routine documented in this encounter Care Teams Wafer Abrading Machine Tender Relationship Specialty Start Date End Date Librado Alvarado MD PCP - General 10/08/10 01/18/18 [address] [place] [address] documented as of this encounter
--- OUTSIDE RECORDS SUMMARY | 2022-08-05 09:07 | XMS_ITS | Encounter Summary ---
:1955 Author Organization [facility] [place] [address] Care Team Providers Name Role Phone Librado Alvarado MD Primary Care Provider Encounter Details Date Type Department Care Team Description 11/11/2017 Telephone Cardiology at [facility] Benedicto Oconnor Jr., MD [address] [place] [address] [place] [address] [place] [address] [phone] (Wo rk) Social History Tobacco Use Types [...] Notes Telephone Encounter - Courtney Jordan - 11/11/2017 2:02 PM EST appt scheduled 11/12/17 3:20 pm Pt informed Telephone Encounter - Ynes Russell, RN - 11/11/2017 10:15 AM EST He was out walking & had a burning sensation in his throat & felt some BARRON. He doesn't have any Nitro to take. Will send new Rx. Told him we would call if we have a cancellation prior to the . Telephone Encounter - Sheryl Matthews - 11/11/2017 9:47 AM EST Patient has an appointment on 11-18-2017 but he is not feeling well and would like to be seen sooner. Said he is having a burning sensation in his throat. Please call him back at [phone]. documented in this encounter Plan of Treatment Upcoming Encounters Date Type Specialty Care Team Description 03/25/2022 Anesthesia Event Surgery Catrachita Baez MD [facility] ANESTHESIOLOGY [place], [place] [address] (Wo rk) 12/15/2022 Office Visit Cardiology Damián Hart MD [facility] [place], [place] [address] (Wo rk) 03/25/2050 Hospital Encounter Surgery Citlalli Richardson MD Vocal cord paralysis [facility] OTOLARYNGOLOGY [place], [place] [address] (Wo rk) documented as of this encounter Visit Diagnoses Not on filedocumented in this encounter Care Teams Director Of Marketing Operations Relationship Specialty Start Date End Date Librado Alvarado MD PCP - General 10/08/10 01/18/18 580 [facility] [address] [place] [address] documented as of this encounter
--- OUTSIDE RECORDS SUMMARY | 2022-08-05 09:07 | XMS_ITS | Encounter Summary ---
:1955 Author Organization [facility] Address [address] [place] [address] Care Team Providers Name Role Phone Librado Alvarado MD Primary Care Provider Reason for Visit Reason Onset Date Comments Other 06/05/2017 please call patient Encounter Details Date Type Department Care Team Description 06/05/2017 Telephone Cardiology at [facility] Rigoberto Wyatt MD Other (please call [facility] pat reji) [place] [address] CARDIOLOGY DEPT. [phone] [place] [id number] (Wo rk) Social History Tobacco Use Types [...] this encounter Miscellaneous Notes Telephone Encounter - Vick Ptae RN - 06/12/2017 2:03 PM EDT Called patient back and left message on confirmed voicemail to call Interventional Team RN to discuss. Telephone Encounter - EnriquetafranciscoMai marinelli - 06/05/2017 11:22 AM EDT Patient called as he had a cath the other day and is now having pretty bad headaches. Please call him at [phone]. Thank you documented in this encounter Plan of Treatment Upcoming Encounters Date Type Specialty Care Team Description 03/25/2022 Anesthesia Event Surgery Catrachita Baez MD [facility] ANESTHESIOLOGY [place], [place] [address] (Wo rk) 12/15/2022 Office Visit Cardiology Damián Hart MD [facility] [place], [place] [address] (Wo rk) 03/25/2050 Hospital Encounter Surgery Citlalli Richardson MD Vocal cord paralysis [facility] OTOLARYNGOLOGY [place], [place] [address] (Wo rk) documented as of this encounter Visit Diagnoses Not on filedocumented in this encounter Care Teams Demonstrator Knitting Relationship Specialty Start Date End Date Librado Alvarado MD PCP - General 10/08/10 01/18/[address] [facility] [address] [place] [address] documented as of this encounter
--- OUTSIDE RECORDS SUMMARY | 2022-08-05 09:07 | XMS_ITS | Encounter Summary ---
:1955 Author Organization [facility] [place] [address] Care Team Providers Name Role Phone Librado Alvarado MD Primary Care Provider Reason for Visit Reason Comments Follow-up urgent Coronary Artery Disease Encounter Details Date Type Department Care Team Description 05/25/2017 Office Visit Cardiology at [facility] Chest pain, unspecified type; Sami Hanks MD ASCVD (arteriosclerotic cardiovascular d isease) [address] [facility] [place] [address] [phone] Social History Tobacco Use Types Packs/Day Years [...] Sign Reading Time Taken Comments Blood Pressure 120/70 05/25/2017 2:46 PM EDT Pulse 76 05/25/2017 2:46 PM EDT Temperature - - Respiratory Rate 12 05/25/2017 2:46 PM EDT Oxygen Saturation - - Inhaled Oxygen Concentration - - Weight 97.1 kg (214 lb) 05/25/2017 2:46 PM EDT Height 182.9 cm (6') 05/25/2017 2:46 PM EDT Body Mass Index 29.02 05/25/2017 2:46 PM EDT documented in this encounter Progress Notes Benedicto Oconnor Jr., MD - 05/25/2017 2:40 PM EDT Subjective: Patient ID: Burton Mcnair Jr. is a 62 y.o. male. Chief Complaint Patient presents with ??? Follow-up urgent ??? Coronary Artery Disease HPI He has noticed no improvement with the higher beta jojo dose. He has slightly more dyspnea with stairs or any grade and has had 2 episodes of chest/throat tightening requiring NTG. He tried pushing harder in rehab today and had to stop due to chest tightness and dyspnea that resolved quickly with rest. He does not get symptoms at work but he is all on a flat floor. He has had no other episodesof weight gain or edema. Review of Systems no bruising or bleeding No Known Allergies Current Outpatient Prescriptions Medication Sig Dispense Refill ??? ONETOUCH ULTRA [...] angioplasty of proximal RCA for in-stent restenosis Objective: Physical Exam BP 120/70 Pulse 76 Resp 12 Ht 182.9 cm (6') Wt 97.1 kg (214 lb) BMI 29.02 kg/m2 NAD No JVD/HJR Chest clear Cor RR, no murmur Abd benign Ext no edema EKG: NSR 70, minimal LVH Assessment and Plan: Gradually worsening BARRON and chest tightness as before when he had restenosis. No improvement with increased medication. He is willing to have cath again to assess for restenosis and plan further therapy Risks and benefits reviewed as before Labs to be done today He is to not exert himself and hold rehab until after the cath He knows to hold metformin for 2 days before Cath scheduled for June [address] Wyatt documented in this encounter Plan of Treatment Upcoming Encounters Date Type Specialty Care Team Description 03/25/2022 Anesthesia Event Surgery Catrachita Baez MD [facility]OLOG[facility] [place] [address] (Wo rk) 12/15/2022 Office Visit Cardiology Damián Hart MD [facility] [address] [place] [address] (Wo rk) 03/25/2050 Hospital Encounter Surgery Citlalli Richardson MD Vocal cord paralysis [facility] [place] [place] [address] (Wo rk) documented as of this encounter Procedures Procedure Name Priority Date/Time Associated Diagnosis Comme nts CARDIAC CATHETERIZATION Routine 06/02/2017 3:21 Chest pain, R esults for this PM EDT unspecified type procedure are in ASCVD the results (arteriosclerotic section. cardiovascular disease) ECG SCAN 05/28/2017 12:00 Results for this AM EDT procedure are i n the results section. documented in this encounter Results CARDIAC CATHETERIZATION (06/02/2017 3:21 PM EDT) Anatomical Region Laterality Modality Other Specimen (Source) Anatomical Location Collection Method / Collectio n Time Received Time / Laterality Volume Narrative 06/02/2017 6:53 PM EDT ?[facility] ? Cardiac Cathete rization/Intervention Report ? Patient Name: Xu Gutiérrez, Burton Long. ? Procedure Date: 06/02/2017 ? A #: [id number] ? Primary Physician: Rigoberto Wyatt ? Case #: [id number] ? File Name: [id number] ? Catheterization Order Number: [id number] ? [facility] ? Final Report [place], [place] ? Patient Name: ? Burton D. Gar field Jr ? ID#: ?[id number] ? : ?1955 ? Procedure Date: ? June 02, 2017 ?Case #: ? [id number] ? Room: ? 5 ? Case Physician: ? Car Andrade ? Start: ?13:41 ?Fellow: ? Anna Jamil M.D. ? Admission: ??06/02/2017 ? Referring ? Librado Alvarado M.D. ? Physicians: ?Benedicto Oconnor M.D. ? Procedures: ?* Coronary Angiography ?* Left Heart Catheterization ?* Coronary Instantaneous Wave-F ree Ratio (iFR) ?* Access Site Angiography ? History ?Burton Mcnair Jr is a 62 year old man. He has hypertension and a ?family history of coronary jonnathan ry disease. The patient has a history of ?smoking (20 pack years). He has hypercholesterolemia managed with lipid ?therapy. The patient has diabet es managed with oral medication. He has ?stable angina, a history of kade st pain and a prior history of coronary ?artery disease. The patient had a remote coronary intervention procedure. ?He has a history of dyspnea wit h NYHA functional class II. The patient ?also has a history of an abnorm al stress test. Prior to the initiation of ?this procedure, the patient was designated as ASA Class III. ? Patient Status at Catheterization: ?The patient presented with: uns table angina (w/i 60 days). [place] ?Cardiovascular Society angina c lass was II. This patient was on beta ?blockers and calcium nam blo ckers prior to the procedure. No stress or ?imaging studies were performed prior to this procedure ? Technique: ?A 6Fr sheath was inserted in th e right femoral artery utilizing the ?Seldinger technique. The left c oronary artery was injected utilizing a ?6Fr JL 4.5 catheter. A 6Fr JR 4 catheter was used to inject the right ?coronary artery. Left ventricul ar pressure was performed with a 6Fr JR 4 ?catheter. 8,000 units of hepari n were administered. Intracoronary ?nitroglycerin was given during this case. A total of 200cc of Omnipaque ?were opened, 115cc of Omnipaque were administered and 85cc of Omnipaque ?were wasted. Radiation: Fluoro time was 12.2 minutes, dose area product ?was 63,291 mGYcm2 and air kerma was 1,425 mGY. ?The patient received the follow ing medications prior to and during the ?procedure: Aspirin (any), Clopi dogrel and Unfractionated Heparin (any). ? Hemodynamics: ?Left Heart Pressures ? Resting: ? Syst D iast ? EDP ?a ?v ? m ?Ao 129 ?? 64 ?89 ?LV 133 ? 17 ? Coronary Angiography: ?Dominance: Right ?Left Main ? There was a 15% concentr ic long segmental stenosis of the distal ? segment of the left main artery. ?Left Anterior Descending ? There was mild diffuse d isease of the proximal segment of the left ? anterior descending jonnathan ry (LAD) and it was calcified and ectatic. ? The LAD was large. ? There was mild diffuse d isease of the ostial segment of the second ? diagonal branch (Diagona l 2) of the LAD. ??The Diagonal 2 was ? moderate in size. ?Left Circumflex ? There was a single discr ete total occlusion of the mid segment of ? the left circumflex jonnathan ry (LCX). ??The distal vessel was small. ? There was a 50% long seg mental stenosis of the proximal segment of ? the first obtuse margina l branch (OM1) of the LCX. ?Right Coronary Artery ? There was mild diffuse d isease of the entire vessel segment of the ? right coronary artery (R CA) and it was calcified and ectatic. ??The ? RCA was large. ??The mid 1 segment of the RCA had a calcified and ? ectatic single discrete 60% stenosis. ? Intravascular Imaging/Physiology: ?Instantaneous wave-free ratio ( iFR) was determined across the 60% ?stenosis in the mid 1 RCA using a 6 Fr AL 1 guiding catheter and a ?Verrata wire. ??Wire delivery w as successful. ??The IFR across the 60% mid ?1 RCA lesion was 0.97. ??This l esion was not hemodynamically significant. ?Instantaneous wave-free ratio ( iFR) was determined across the 50% ?stenosis in the proximal OM1 us ing a 6 Fr EBU 4.0 guiding catheter and a ?Verrata wire. ??Wire delivery w as successful. ??The IFR across the 50% ?proximal OM1 lesion was 0.97. ? ?This lesion was not hemodynamically ?significant. ? Vascular Access: ?Vascular Access Angiogram: ? A selective angiogram at the right femoral artery revealed no ? significant obstructive disease. A closure device is contraindicated ? due to the sheath insert ion site located at the bifurcation of this ? vessel. ?Vascular Access Management: ? Manual Compression of th e right femoral artery access site was ? performed. ? Conclusions: ?* Two vessel coronary artery di sease (LCX and RCA) ?* Moderate focal stenosis withi n previously placed stent in mid RCA not ?hemodynamically significant bas ed on iFR 0.97. ?* Proximal OM1 lesion not hemod ynamically significant based on iFR 0.97. ? Complications/Events: ?The patient had no complication s during these procedures. ? Comments: ?Proximal to mid LAD and entire RCA proper both show diffuse marked ?ectasia and calcification. 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 The LCX is re latively spared. ?The attending physician was latosha t for the entire procedure. ?Dr. Rigoberto Wyatt M.D. was present during the moderate sedation ?intraservice time as documented by the sedation nurse. ??Case time = 01:05. ?Dr. Rigoberto Wyatt M.D. performed t he coronary angiography, left heart ?catheterization, access site angio graphy and IFR-coronary. ? Rigoberto Wyatt M.D. ? Electronically Signed by: Rigoberto Wyatt M.D. ? Report Finalized: 06/02/2017 ??18:42 ? Procedure Note Rigoberto Wyatt MD - 06/02/2017 [facility] Cardiac Catheterization/Intervention Re port Patient Name: Burton Mcnair Jr Procedure Date: 06/02/2017 A #: [id number] Primary Physician: Rigoberto Wyatt Case #: [id number] File Name: [id number] Catheterization Order Number: [id number] [facility] Clinical Research Nurse [facility] Final Report [place], [place] Patient Name: Burton Mcnair Jr ID# : [id number] : 1955 Procedure Date: June 02, 2017 Case #: [id number] Room: 5 Case Physician: Rigoberto Wyatt M.D. Start : 13:41 Fellow: Anna Jamil M.D. Admission: Referring Librado Alvarado M.D. Physicians: [facility]o Oconnor M.D. Procedures: * Coronary Angiography * Left Heart Catheterization * Coronary Instantaneous Wave-Free Rati o (iFR) * Access Site Angiography History Burton Mcnair Jr is a 62 year old man. He has hypertension and a family history of coronary artery disea se. The patient has a history of smoking (20 pack years). He has hyperch olesterolemia managed with lipid therapy. The patient has diabetes manag ed with oral medication. He has stable angina, a history of chest pain and a prior history of coronary artery disease. The patient had a remot e coronary intervention procedure. He has a history of dyspnea with NYHA f unctional class II. The patient also has a history of an abnormal stres s test. Prior to the initiation of this procedure, the patient was gordona ugo as ASA Class III. Patient Status at Catheterization: The patient presented with: unstable an ezekiel (w/i 60 days). [place] Cardiovascular Society angina class was II. This patient was on beta blockers and calcium nam blockers pr ior to the procedure. No stress or imaging studies were performed prior to this procedure Technique: A 6Fr sheath was inserted in the right femoral artery utilizing the Seldinger technique. The left coronary artery was injected utilizing a 6Fr JL 4.5 catheter. A 6Fr JR 4 cathete r was used to inject the right coronary artery. Left ventricular press ure was performed with a 6Fr JR 4 catheter. 8,000 units of heparin were a dministered. Intracoronary nitroglycerin was given during this millicent e. A total of 200cc of Omnipaque were opened, 115cc of Omnipaque were ad ministered and 85cc of Omnipaque were wasted. Radiation: Fluoro time was 12.2 minutes, dose area product was 63,291 mGYcm2 and air kerma was 1,4 25 mGY. The patient received the following medi cations prior to and during the procedure: Aspirin (any), Clopidogrel a nd Unfractionated Heparin (any). Hemodynamics: Left Heart Pressures Resting: Syst Diast EDP a v m Ao 129 64 89 LV 133 17 Coronary Angiography: Dominance: Right Left Main There was a 15% concentric long segment al stenosis of the distal segment of the left main artery. Left Anterior Descending There was mild diffuse disease of the p roximal segment of the left anterior descending artery (LAD) and it was calcified and ectatic. The LAD was large. There was mild diffuse disease of the o stial segment of the second diagonal branch (Diagonal 2) of the LAD . The Diagonal 2 was moderate in size. Left Circumflex There was a single discrete total occlu jose of the mid segment of the left circumflex artery (LCX). The d istal vessel was small. There was a 50% long segmental stenosis of the proximal segment of the first obtuse marginal branch (OM1) of the LCX. Right Coronary Artery There was mild diffuse disease of the e ntire vessel segment of the right coronary artery (RCA) and it was calcified and ectatic. The RCA was large. The mid 1 segment of the RCA had a calcified and ectatic single discrete 60% stenosis. Intravascular Imaging/Physiology: Instantaneous wave-free ratio (iFR) was determined across the 60% stenosis in the mid 1 RCA using a 6 Fr AL 1 guiding catheter and a Verrata wire. Wire delivery was success ful. The IFR across the 60% mid 1 RCA lesion was 0.97. This lesion was not hemodynamically significant. Instantaneous wave-free ratio (iFR) was determined across the 50% stenosis in the proximal OM1 using a 6 Fr EBU 4.0 guiding catheter and a Verrata wire. Wire delivery was success ful. The IFR across the 50% proximal OM1 lesion was 0.97. This lesi on was not hemodynamically significant. Vascular Access: Vascular Access Angiogram: A selective angiogram at the right femo ral artery revealed no significant obstructive disease. A clos ure device is contraindicated due to the sheath insertion site locate d at the bifurcation of this vessel. Vascular Access Management: Manual Compression of the right femoral artery access site was performed. Conclusions: * Two vessel coronary artery disease (L CX and RCA) * Moderate focal stenosis within previo usly placed stent in mid RCA not hemodynamically significant based on iF R 0.97. * Proximal OM1 lesion not hemodynamical ly significant based on iFR 0.97. Complications/Events: The patient had no complications during these procedures. Comments: Proximal to mid LAD and entire RCA prop er both show diffuse marked ectasia and calcification. Appearance i s somewhat suggestive of prior Kawasaki disease. The LCX is relatively spared. The attending physician was present for the entire procedure. Dr. Rigoberto Wyatt M.D. was present duri ng the moderate sedation intraservice time as documented by the sedation nurse. Case time = 01:05. Dr. Rigoberto Wyatt M.D. performed the co ronary angiography, left heart catheterization, access site angiograph y and IFR-coronary. Rigoberto Wyatt M.D. Electronically Signed by: Rigoberto Wyatt M.D. Report Finalized: 06/02/2017 18:42 Benedicto Oconnor Jr., MD CARDIAC CATH ORDERABLES SCAN DOC: ECG (05/28/2017 12:00 AM EDT) Narrative 05/28/2017 12:00 AM EDT This result has an [...] ecified documented in this encounter Care Teams Primary Care Coordinator Relationship Specialty Start Date End Date Librado Alvarado MD PCP - General 10/08/10 01/18/18 [address] [facility] [address] [place] [address] documented as of this encounter
--- OUTSIDE RECORDS SUMMARY | 2022-08-05 09:07 | XMS_ITS | Encounter Summary ---
:1955 Author Organization [facility] [place] [address] Care Team Providers Name Role Phone Librado Alvarado MD Primary Care Provider Reason for Visit Reason Comments Follow-up F/U after Cath on 03/10/17 Encounter Details Date Type Department Care Team Description 04/02/2017 Office Visit Cardiology at [facility] ASCVD (arter iosclerotic cardiovascular disease); Sami Hanks MD Essential hypertension; [address] [facility] Hype rlipidemia, unspecified hyperlipidemia type; Cal A RD CAL A Type 2 diabetes mellitus with other circ ulatory complication, without long-term [place] [address] [phone] Social History Tobacco Use Types Packs/Day Years [...] Sign Reading Time Taken Comments Blood Pressure 118/70 04/02/2017 10:34 AM EDT Pulse 76 04/02/2017 10:31 AM EDT Temperature - - Respiratory Rate - - Oxygen Saturation - - Inhaled Oxygen Concentration - - Weight 98.4 kg (217 lb) 04/02/2017 10:31 AM EDT Height 182.9 cm (6') 04/02/2017 10:31 AM EDT Body Mass Index 29.43 04/02/2017 10:31 AM EDT documented in this encounter Progress Notes [facility] Oconnor Jr., MD - 04/02/2017 10:30 AM EDT Subjective: Patient ID: Burton Mcnair Jr. is a 62 y.o. male. Chief Complaint Patient presents with ??? Follow-up F/U after Cath on 03/10/17 HPI He feels back to normal and is doing his usual activities comfortably. His energy level is good.He has had no chest pain or limiting dyspnea. He is considering starting cardiac rehab. He has had an occasional odd crappy feeling when sitting, not with activity. Review of Systems blood sugar better No Known Allergies Current Outpatient Prescriptions Medication Sig Dispense Refill ??? amoxicillin (AMOXIL) 500 mg Capsule Take 2,000 mg by mouth once as needed (1 hour prior to Dental work). 0 ??? meTOPROLOL succinate (TOPROL-XL) 50 mg Tablet Sustained Release 24 hr Take 1.5 tablets by mouth daily. 135 tablet 3 [...] for in-stent restenosis Objective: Physical Exam BP 118/70 (BP Location (NBP): Left arm, Patient Position: Standing) Pulse 76 Ht 182.9 cm (6') Wt 98.4 kg (217 lb) BMI 29.43 kg/m2 NAD No JVD/HJR Chest clear Cor RR, no murmur Abd benign Ext no edema Assessment and Plan: Well controlled angina- still has the CCX lesion so could have symptoms on over exertion. Encouragedto keep up activity and to enroll in rehab (he has the papers) Excellent BP Lipids- continue high dose statin- will check labs again later this summer Reviewed need to keep blood sugar controlled as well for control of CAD Follow up 3 months documented in this encounter Plan of Treatment Upcoming Encounters Date Type Specialty Care Team Description 03/25/2022 Anesthesia Event Surgery Catrachita Baez MD [facility] ANESTHESIOLOGY [place] [address] (Wo rk) 12/15/2022 Office Visit Cardiology Damián Hart MD [facility] [address] [place] [address] (Wo rk) 03/25/2050 Hospital Encounter Surgery Citlalli Richardson MD Vocal cord paralysis [facility] OT[facility] [place], [place] [address] (Wo rk) documented as of this encounter Visit Diagnoses Diagnosis ASCVD (arteriosclerotic cardiovascular d isease) Unspecified cardiovascular disease Essential hypertension Unspecified essential hypertension Hyperlipidemia, unspecified hyperlipidem ia type Type 2 diabetes mellitus with other circ ulatory complication, without long-term current use of insulin Vocal cord paralysis Paralysis of vocal cords or larynx, unsp ecified documented in this encounter Care Teams Insurance Loss Control Surveyor Relationship Specialty Start Date End Date Librado Alvarado MD PCP - General 10/08/10 01/18/18 [address] [facility] [address] [place] [address] documented as of this encounter
--- OUTSIDE RECORDS SUMMARY | 2022-08-05 09:07 | XMS_ITS | Encounter Summary ---
:1955 Author Organization [place] [address] Care Team Providers Name Role Phone Librado Alvarado MD Primary Care Provider Reason for Visit Reason Comments Follow-up c/o tightness in throat; no problems when walking on a flat surface, but going uphill or stairs, beco mes SOB; has taken Nitro & felt better Edema bilateral ankle edema over a long weekend; weight up to 223 & then better after returning home - weigh t returned to normal Encounter Details Date Type Department Care Team Description 05/22/2017 Office Visit Cardiology at [facility] O[facility] sis of Sami Hanks MD [place] coronary artery [address] [facility] with angina pectoris, Cal A RD CAL A unspecified whether [place], [place] or [place] [id number] heart [phone] Social History Tobacco Use Types Packs/Day Years [...] Sign Reading Time Taken Comments Blood Pressure 124/72 05/22/2017 2:42 PM EDT Pulse 76 05/22/2017 2:42 PM EDT Temperature - - Respiratory Rate - - Oxygen Saturation - - Inhaled Oxygen Concentration - - Weight 98.9 kg (218 lb) 05/22/2017 2:42 PM EDT Height - - Body Mass Index 29.57 04/02/2017 10:31 AM EDT documented in this encounter Progress Notes Benedicto Oconnor Jr., MD - 05/22/2017 2:40 PM EDT Subjective: Patient ID: Burton Mcnair Jr. is a 62 y.o. male. Chief Complaint Patient presents with ??? Follow-up c/o tightness in throat; no problems when walking on a flat surface, but going uphill or stairs, becomes SOB; has taken Nitro & felt better ??? Edema bilateral ankle edema over a long weekend; weight up to 223 & then better after returning home - weight returned to normal HPI He developed more ankle edema and BARRON as well as weight gain when away for a long weekend. He denies increased salt intake. The edema has gradually resolved but he still has increased dyspnea and has had some episodes of chest tightness with activity. It is feeling like when he started to have restenosis again. He has not had prolonged discomfort and has been able to manage it by slowing down or stopping. He has rarely taken NTG. Review of Systems blood sugar controlled No Known Allergies Current Outpatient Prescriptions Medication [...] for in-stent restenosis Objective: Physical Exam BP 124/72 (BP Location (NBP): Right arm, Patient Position: Sitting, BP Cuff Sizes: Adult (25-34 cm)) Pulse 76 Wt 98.9 kg (218 lb) BMI 29.57 kg/m2 NAD No JVD/HJR Chest clear Cor RR, no murmur Abd benign Ext trace edema Assessment and Plan: Probable angina, either restenosis again or progression of his other disease. Short of repeat cath, we can try increasing his metoprolol to 100 mg QD and following his progress in rehab. He should try pushing it in rehab in the monitored setting The edema and weight gain over the weekend is likely due to some added sodium he did not recognize- reviewed sodium restriction Phone check after his next rehab session documented in this encounter Plan of Treatment Upcoming Encounters Date Type Specialty Care Team Description 03/25/2022 Anesthesia Event Surgery Catrachita Baez MD [facility] ANESTHESIOLOGY [place], [place] [address] (Wo rk) 12/15/2022 Office Visit Cardiology Damián Hart MD [facility] [place], [place] [address] (Wo rk) 03/25/2050 Hospital Encounter Surgery Citlalli Richardson MD Vocal cord paralysis [facility] OTOLARYNGOLOGY [place], [place] [address] (Wo rk) documented as of this encounter Visit Diagnoses Diagnosis Atherosclerosis of [place] coronary arter y with angina pectoris, unspecified whether [place] or transplanted heart Vocal cord paralysis Paralysis of vocal cords or larynx, unsp ecified documented in this encounter Care Teams English Professor Relationship Specialty Start Date End Date Librado Alvarado MD PCP - General 10/08/10 01/18/18 [address] [facility] [address] [place] [address] documented as of this encounter
--- OUTSIDE RECORDS SUMMARY | 2022-08-05 09:07 | XMS_ITS | Encounter Summary ---
:1955 Author Organization [place] [address] Care Team Providers Name Role Phone Librado Alvarado MD Primary Care Provider Reason for Visit Reason Comments Follow-up felt great at first and has had a few episodes of the chest discomfort when he tries to do anything quickly Encounter Details Date Type Department Care Team Description 01/05/2018 Office Visit Cardiology at [facility] (mitchel Gallardo Jr., MD cardiovascular disease) [address] [place] [address] [phone] Social History Tobacco Use Types Packs/Day Years [...] Reading Time Taken Comments Blood Pressure 120/70 01/05/2018 8:39 AM EST Pulse 88 01/05/2018 8:39 AM EST Temperature - - Respiratory Rate - - Oxygen Saturation - - Inhaled Oxygen Concentration - - Weight 99.8 kg (220 lb) 01/05/2018 8:39 AM EST Height 182.9 cm (6') 01/05/2018 8:39 AM EST Body Mass Index 29.84 01/05/2018 8:39 AM EST documented in this encounter Progress Notes [facility] Jr., MD - 01/05/2018 8:40 AM EST Subjective: Patient ID: Burton Mcnair Jr. is a 62 y.o. male. Chief Complaint Patient presents with ??? Follow-up felt great at first and has had a few episodes of the chest discomfort when he tries to do anythingquickly HPI He has improved with ranolazine but still has some anginal symptoms when moving very quickly or in cold weather. He can do his usual activities comfortably. He has had no dizziness, fatigue, edema,palpitations or worsening dyspnea. Review of Systems blood sugar stable, no bruising or bleeding No Known Allergies Current Outpatient Prescriptions Medication Sig Dispense Refill ??? ranolazine (RANEXA) 500 mg Tablet Sustained [...] at ST III Objective: Physical Exam BP 120/70 (BP Location (NBP): Left arm, Patient Position: Sitting) Pulse 88 Ht 182.9 cm (6') Wt 99.8 kg (220 lb) BMI 29.84 kg/m2 NAD Assessment and Plan: Improvement with low dose ranolazine- pulse and BP will support higher dosing- increase to 1000 mg BID and reassess in 2 weeks documented in this encounter Plan of Treatment Upcoming Encounters Date Type Specialty Care Team Description 03/25/2022 Anesthesia Event Surgery Catrachita Baez MD [facility] ANESTHESIOLOGY [place], [place] [address] (Wo rk) 12/15/2022 Office Visit Cardiology Damián Hart MD [facility] [address] [place] [address] (Wo rk) 03/25/2050 Hospital Encounter Surgery Citlalli Richardson MD Vocal cord paralysis [facility] OTOLARYNGOLOGY [place], [place] [address] (Wo rk) documented as of this encounter Visit Diagnoses Diagnosis ASCVD (arteriosclerotic cardiovascular d isease) Unspecified cardiovascular disease Vocal cord paralysis Paralysis of vocal cords or larynx, unsp ecified documented in this encounter Care Teams Sales Service Supervisor Relationship Specialty Start Date End Date Librado Alvarado MD PCP - General 10/08/10 01/18/18 [address] [facility] [address] [place] [address] documented as of this encounter
--- OUTSIDE RECORDS SUMMARY | 2022-08-05 09:07 | XMS_ITS | Encounter Summary ---
:1955 Author Organization [facility] [address] Care Team Providers Name Role Phone Librado Alvarado MD Primary Care Provider Reason for Visit Reason Comments Preoperative Cardiovascular Pre-cath appointment, SOB on Exertion, chest Heaviness Encounter Details Date Type Department Care Team Description 03/06/2017 Office Visit Cardiology at [facility] Jr., MD Angina effort [address] [place] [address] [place], [place] [id number] (Wo rk) Social History Tobacco Use Types Packs/Day Years Used Date Former Smoker Cigarettes Comments: quit at age 17 Sex Assigned at Date Recorded Not on file documented as of this encounter Last Filed Vital Signs Vital Sign Reading Time Taken Comments Blood Pressure 122/76 03/06/2017 8:39 AM EDT Pulse 73 03/06/2017 8:38 AM EDT per ekg Temperature - - Respiratory Rate - - Oxygen Saturation - - Inhaled Oxygen Concentration - - Weight 98.4 kg (217 lb) 03/06/2017 8:38 AM EDT Height 182.9 cm (6') 03/06/2017 8:38 AM EDT Body Mass Index 29.43 03/06/2017 8:38 AM EDT documented in this encounter Progress Notes [facility] Jr., MD - 03/06/2017 8:30 AM EDT Subjective: Patient ID: Burton Mcnair Jr. is a 62 y.o. male. Chief Complaint Patient presents with ??? Preoperative Cardiovascular Pre-cath appointment, SOB on Exertion, chest Heaviness HPI He had some atypical pain on and off since November, then in the last few weeks has had worseningDOE with significant limitation of his exercise ability. He had been walking up hill and up stairs comfortably but now has to stop due to dyspnea. If he pushes he gets chest pain. MIBI is as below. He was started on amlodipine post the test but has had no improvement in his symptoms. He has had to useNTG once for discomfort that did not relieve with rest. He has had no rest pain. Review of Systems he was supposed to increase atorvastatin to 80 mg but never did that No Known Allergies Current Outpatient Prescriptions Medication Sig Dispense Refill ??? atorvastatin (LIPITOR) 40 mg Tablet Take 40 mg by mouth daily. ??? amLODIPine (NORVASC) 5 mg Tablet Take [...] hr Take 75 mg by mouth daily.0 No current facility-administered medications for this visit. [...] 95% prox RCA-> KAROLYN, 50% distal RCA Objective: Physical Exam BP 122/76 (BP Location (NBP): Left arm, Patient Position: Standing) Pulse 73 Comment: per ekg Ht182.9 cm (6') Wt 98.4 kg (217 lb) BMI 29.43 kg/m2 NAD EKG: NSR 73, inferior Qs, no change MIBI: Max Exercise: ??3:00 ??Stage I ??[place] ?? 4.6 ?? METS Max HR: ? 104< 85 % PMR(133) Max BP: ??188/[address] change: ??none Reason for Termination: chest pain, dyspnea Imaging: ??Small to moderate inferior lateral ischemia ??EF 61 % Impression: small to moderate ischemia, poor exercise tolerance Assessment and Plan: Worsening angina, decreased exercise ability. MIBI suggests ischemia from circumflex but could be distal RCA. As he has not improved with added medication he will need repeat cath and hopefully furtherintervention Plan: 1. A discussion was held reviewing the benefits and attendant risks of diagnostic or therapeutic catheterization. The risks include, but are not limited to: stroke, , myocardial infarction, bleeding, limb loss, infection, dye reaction, vascular injury, arrhythmias. If an intervention is performed, risks would include the potential for vessel closure, need for emergency CABG, subacute closure, restenosis. The patient appears to understand these risks and benefits. The informed consent was signed. 2. Laboratory screening will be obtained before the procedure as ordered.- all ok 3. The patient's medications, NPO status after MN and other details of the planned procedure were discussed. Questions were addressed. Hold metformin 48 hours. Increase atorvastatin to 80 mg 4. Cath 03/[address] Bravo 5. Follow up will be dependent on the results of the cardiac catheterization. documented in this encounter Plan of Treatment Upcoming Encounters Date Type Specialty Care Team Description 03/25/2022 Anesthesia Event Surgery Catrachita Baez MD [facility] [address] ANESTHESIOLOGY [place], [place] [address] (Wo rk) 12/15/2022 Office Visit Cardiology Damián Hart MD [facility] [address] [place] [address] (Wo rk) 03/25/2050 Hospital Encounter Surgery Citlalli Richardson MD Vocal cord paralysis [facility] ER OTOLARYNGOLOGY [place], [place] [address] ( rk) documented as of this encounter Procedures Procedure Name Priority Date/Time Associated Comments Diagnosis CARDIAC CATHETERIZATION Routine 03/10/2017 11:21 Angina effort Results for this AM EDT procedure are i n the results section. ECG SCAN 03/06/2017 12:00 Results for this AM EDT procedure are i n the results section. documented in this encounter Results CARDIAC CATHETERIZATION (03/10/2017 11:21 AM EDT) Anatomical Region Laterality Modality Other Specimen (Source) Anatomical Location Collection Method / Collectio n Time Received Time / Laterality Volume Narrative 03/10/2017 11:43 AM EDT ?[facility] ? Cardiac Cathete rization/Intervention Report ? Patient Name: Xu Burton Gutiérrez. ? Procedure Date: 03/10/2017 ? A #: [id number] ? Primary Physician: Aherin, Mariama ? Case #: [id number] ? File Name: [id number] ? Catheterization Order Number: [id number] ? [facility] ? Final Report [place], [place] ? Patient Name: ? Burton D. Gar field Jr ? ID#: ?[id number] ? : ?1955 ? Procedure Date: ? March 10, 2017 ? Case #: ? [id number] ? Room: ? 6 ? Case Physician: ? Richa Payne ? Start: ?10:38 ?Fellow: ? Tahmina marinelli M.D. ? Admission: ??03/10/2017 ? Referring ? Benedicto M Riky givens M.D. ? Physicians: ?Librado Alvarado M.D. ? Procedures: ?* Coronary Angiography ?* Left Heart Catheterization ?* Coronary Angioplasty ?* Vascular Closure Device Deplo yment ?* Access Site Angiography ? History ?Burton Mcnair Jr is a 62 year old man. He has hypertension. The ?patient has hypercholesterolemi a managed with lipid therapy. He has ?diabetes managed with oral medi cation. The patient has stable angina, a ?history of chest pain and a aubrey or history of coronary artery disease. He ?had a recent coronary intervent ion procedure. The patient has a history ?of dyspnea with NYHA functional class II. He also has a history of an ?abnormal stress test. Prior to the initiation of this procedure, the ?patient was designated as ASA C lass II. ? Patient Status at Catheterization: ?The patient presented with: sta ble angina (w/i 42 days). [place] ?Cardiovascular Society angina c lass was II. This patient was on beta ?blockers and calcium nam blo ckers prior to the procedure. A SPECT ?stress test was performed and r esults were Positive and Intermediate Risk ?ischemia assessment. ? Technique: ?A 6Fr sheath was inserted in th e right femoral artery utilizing the ?Seldinger technique. The left c oronary artery was injected utilizing a ?5Fr JL 4 catheter. A 5Fr JR 4 c atheter was used to inject the right ?coronary artery. Left ventricul ar pressure was performed with a 5Fr JR 4 ?catheter. Coronary angioplasty was performed and the equipment utilized ?will be described in the interv ention summary section. 7,000 units of ?heparin were administered. A to demetria of 100cc of Omnipaque were opened, ?63cc of Omnipaque were administ ered and 37cc of Omnipaque were wasted. ?Radiation: Fluoro time was 6.5 minutes, dose area product was 75,801 ?mGYcm2 and air kerma was 794 mG Y. ?The patient received the follow ing medications prior to and during the ?procedure: Aspirin (any), Clopi dogrel and GP IIb/IIIa (any). ? Hemodynamics: ?Left Heart Pressures ? Resting: ? Syst D iast ? EDP ?a ?v ? m ?Ao 133 ?? 68 ?95 ?LV 140 ? 16 ? Coronary Angiography: ?Dominance: Right ?Left Main ? There was mild diffuse d isease of the entire vessel segment of the ? left main artery. ??The left main was moderate in size. ??Distal flow ? was normal. ?Left Anterior Descending ? There was moderate diffu se disease of the entire vessel segment of ? the left anterior descen ding artery (LAD). ??The LAD was large. ? Distal flow was normal. ?Left Circumflex ? There was a 99% diffuse stenosis of the mid segment of the left ? circumflex artery (LCX). ??The LCX was small. ??Distal flow was ? decreased (LUIS CARLOS Grade 1) and was via collaterals from the LAD. ? There was a 60% single d iscrete stenosis of the proximal segment of ? the first obtuse margina l branch (OM1) of the LCX. ??Distal flow was ? normal. ?Right Coronary Artery ? There was a 95% single d iscrete stenosis of the proximal segment of ? the right coronary arter y (RCA). ??The RCA was large. ??Distal flow ? was normal. ? There was mild diffuse d isease of the entire vessel segment of the ? right posterior descendi ng branch (RPDA) of the RCA. ??The RPDA was ? large. ??Distal flow was normal. ? Indication for Intervention: ?Coronary intervention was indic ated for treatment of stable angina, CCS ?Class II. Left ventricular Ejec tion Fraction was estimated at 60 percent. ?The priority for the procedure was Elective. The NCDR indication for the ?procedure was Stable angina. ? Intervention Summary: ?Right Coronary Artery ? Proximal 95% ? Angioplasty was performed on the 95% stenosis in the proximal ? segment of the RCA. This was a drug eluting in-stent ? restenosis lesi on. According to the ACC/AHA classification ? system, this le jose was a type B2 moderate risk lesion. This ? was the culprit lesion. Vessel flow pre intervention was LUIS CARLOS ? 3. This was a p reviously treated lesion within 6-12 months. ? Angioplasty was accomplished through a 6 Fr AL 1 guide ? utilizing a NC EUPHORA 15 MM balloon with a maximum size of ? 4.50mm and a ma ximum inflation pressure of 18 atmospheres. ? The final outco me was defined as successful. The residual ? stenosis follow ing this intervention was 20%. The final LUIS CARLOS ? flow was 3. ? Vascular Access: ?Vascular Access Angiogram: ? A selective angiogram at the right femoral artery revealed no ? significant obstructive disease. ?Vascular Access Management: ? A Perclose was deployed at the right femoral artery access site. ? This device was successf ul. ? Conclusions: ?* Three vessel coronary artery disease (LAD, LCX and RCA) ?* Successful angioplasty of the proximal RCA lesion ? Complications/Events: ?The patient had no complication s during these procedures. ? Comments: ?Pt referred for findings of isc hemia on nuclear stress test. ??Stress test ?was performed for dyspnea. ??Pt has known severe calcified CAD with recent ?atherectomy guided PCI to RCA. ??Coronary angiography showed severe focal ?in-stent restenosis of the prev iously ??palced stent in the proximal RCA. ?This was treated with balloon a ngioplasty and dilated upto 4.5 mm at 18 ?jose with good result. ??There i s < 20% residual stenosis. ??Will optimize ?medical therapy and assess resp onse. ?The attending physician was presen t for the entire procedure. ?Dr. Mariama Bravo M.D. performed the coronary angiography, left heart ?catheterization, angioplasty-coron aretha, access site angiography and vascular ?closure device. ? Mariama Bravo M.D. ? Electronically Signed by: Fox Payne ? Report Finalized: 03/10/2017 ??11:36 ? Procedure Note Mariama Bravo MD - 03/10/2017Formatting o f this note might be different from the original. [facility] Cardiac Catheterization/Intervention Re port Patient Name: Burton Mcnair Jr Procedure Date: 03/10/2017 A #: [id number] Primary Physician: Mariama Bravo Case #: [id number] File Name: [id number] Catheterization Order Number: [id number] [facility] Final Report [place], [place] Patient Name: Burton Mcnair Jr ID# : [id number] : 1955 Procedure Date: March 10, 2017 Case #: [id number] Room: 6 Case Physician: Mariama Bravo M.D. Start: 10:38 Fellow: Tahmina Leone M.D. Admission: 0 03/10/2017 Referring [facility] M.D. Physicians: Librado Alvarado M.D. Procedures: * Coronary Angiography * Left Heart Catheterization * Coronary Angioplasty * Vascular Closure Device Deployment * Access Site Angiography History Burton Mcnair Jr is a 62 year old man. He has hypertension. The patient has hypercholesterolemia manage d with lipid therapy. He has diabetes managed with oral medication. The patient has stable angina, a history of chest pain and a prior histo ry of coronary artery disease. He had a recent coronary intervention proc [facility]. The patient has a history of dyspnea with NYHA functional class I I. He also has a history of an abnormal stress test. Prior to the init iation of this procedure, the patient was designated as ASA Class II. Patient Status at Catheterization: The patient presented with: stable yo na (w/i 42 days). [place] Cardiovascular Society angina class was II. This patient was on beta blockers and calcium nam blockers pr ior to the procedure. A SPECT stress test was performed and results w ere Positive and Intermediate Risk ischemia assessment. Technique: A 6Fr sheath was inserted in the right femoral artery utilizing the Seldinger technique. The left coronary artery was injected utilizing a 5Fr JL 4 catheter. A 5Fr JR 4 catheter was used to inject the right coronary artery. Left ventricular press ure was performed with a 5Fr JR 4 catheter. Coronary angioplasty was perf ormed and the equipment utilized will be described in the intervention s ummary section. 7,000 units of heparin were administered. A total of 1 00cc of Omnipaque were opened, 63cc of Omnipaque were administered and 37cc of Omnipaque were wasted. Radiation: Fluoro time was 6.5 minutes, dose area product was 75,801 mGYcm2 and air kerma was 794 mGY. The patient received the following medi cations prior to and during the procedure: Aspirin (any), Clopidogrel a nd GP IIb/IIIa (any). Hemodynamics: Left Heart Pressures Resting: Syst Diast EDP a v m Ao 133 68 95 LV 140 16 Coronary Angiography: Dominance: Right Left Main There was mild diffuse disease of the e ntire vessel segment of the left main artery. The left main was mod erate in size. Distal flow was normal. Left Anterior Descending There was moderate diffuse disease of t he entire vessel segment of the left anterior descending artery (LA D). The LAD was large. Distal flow was normal. 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 The LCX was sm all. Distal flow was decreased (LUIS CARLOS Grade 1) and was via co llaterals from the LAD. There was a 60% single discrete stenosi s of the proximal segment of the first obtuse marginal branch (OM1) of the LCX. Distal flow was normal. Right Coronary Artery There was a 95% single discrete stenosi s of the proximal segment of the right coronary artery (RCA). The RC A was large. Distal flow was normal. There was mild diffuse disease of the e ntire vessel segment of the right posterior descending branch (RPDA ) of the RCA. The RPDA was large. Distal flow was normal. Indication for Intervention: Coronary intervention was indicated for treatment of stable angina, CCS Class II. Left ventricular Ejection Fra ction was estimated at 60 percent. The priority for the procedure was Elec tive. The NCDR indication for the procedure was Stable angina. Intervention Summary: Right Coronary Artery Proximal 95% Angioplasty was performed on the 95% st enosis in the proximal segment of the RCA. This was a drug elu ting in-stent restenosis lesion. According to the ACC /AHA classification system, this lesion was a type B2 moder ate risk lesion. This was the culprit lesion. Vessel flow pre intervention was LUIS CARLOS 3. This was a previously treated lesion within 6-12 months. Angioplasty was accomplished through a 6 Fr AL 1 guide utilizing a NC EUPHORA 15 MM balloon wi th a maximum size of 4.50mm and a maximum inflation pressure of 18 atmospheres. The final outcome was defined as succes sful. The residual stenosis following this intervention wa s 20%. The final LUIS CARLOS flow was 3. Vascular Access: Vascular Access Angiogram: A selective angiogram at the right femo ral artery revealed no significant obstructive disease. Vascular Access Management: A Perclose was deployed at the right fe moral artery access site. This device was successful. Conclusions: * Three vessel coronary artery disease (LAD, LCX and RCA) * Successful angioplasty of the proxima l RCA lesion Complications/Events: The patient had no complications during these procedures. Comments: Pt referred for findings of ischemia on nuclear stress test. Stress test was performed for dyspnea. Pt has known severe calcified CAD with recent atherectomy guided PCI to RCA. Coronary angiography showed severe focal in-stent restenosis of the previously p alced stent in the proximal RCA. This was treated with balloon angioplas ty and dilated upto 4.5 mm at 18 jose with good result. There is < 20% re sidual stenosis. Will optimize medical therapy and assess response. The attending physician was present for the entire procedure. Dr. Mariama Bravo M.D. performed the jose l nary angiography, left heart catheterization, angioplasty-coronary, access site angiography and vascular closure device. Mariama Bravo M.D. Electronically Signed by: Fox Payne Report Finalized: 03/10/2017 11:36 Benedicto Oconnor Jr., MD CARDIAC CATH ORDERABLES SCAN DOC: ECG (03/06/2017 12:00 AM EDT) Narrative 03/06/2017 12:00 AM EDT This result has an attachment that is no t available. Ordered by an unspecified provider. Scanning Provider MEDIA MGR SCAN EXT ORDR/RSLT documented in this encounter Visit Diagnoses Diagnosis Angina effort Other and unspecified angina pectoris Angina effort Other and unspecified angina pectoris Vocal cord paralysis Paralysis of vocal cords or larynx, unsp ecified documented in this encounter Care Teams Real Time Analyst Relationship Specialty Start Date End Date Librado Alvarado MD PCP - General 10/08/10 01/18/18 [address] [place] [address] documented as of this encounter
--- OUTSIDE RECORDS SUMMARY | 2022-08-05 09:07 | XMS_ITS | Encounter Summary ---
:1955 Author Organization [facility] [place] [address] Care Team Providers Name Role Phone Librado Alvarado MD Primary Care Provider Encounter Details Date Type Department Care Team Description 04/27/2017 External Results Cardiology at [facility] Oconnor Jr., MD [address] [place], [place] [id number] [phone] Social History Tobacco Use Types Packs/Day Years [...] Baez MD [facility] [address] ANESTHESIOLOGY [place], [place] [address] (Wo rk) 12/15/2022 Office Visit Cardiology Dami[facility] [place] [place] [address] (Wo rk) 03/25/2050 Hospital Encounter Surgery Citlalli Richardson MD Vocal cord paralysis [facility] [place], [place] [address] (Wo rk) documented as of this encounter Procedures Procedure Name Priority Date/Time Associated Diagnosis Comme nts EXTERNAL LIPID LAB Routine 01/13/2017 Results f or this RESULTS PANEL procedure are in the results section . documented in this encounter Results Lipid External Results (01/13/2017) P athologist Signature Chol, Total 153 HDL 45 LDL Cholesterol 55 Triglycerides 267 Historical Provider POINT OF CARE TEST ORDERABLE S documented in this encounter Visit Diagnoses Not on filedocumented in this encounter Care Teams Airport Guide Relationship Specialty Start Date End Date Librado Alvarado MD PCP - General 10/08/10 01/18/[address] [place] [address] documented as of this encounter
--- OUTSIDE RECORDS SUMMARY | 2022-08-05 09:07 | XMS_ITS | Encounter Summary ---
:1955 Author Organization [place] [address] Care Team Providers Name Role Phone Librado Alvarado MD Primary Care Provider Reason for Referral Diagnostic Test (Routine) - Specialty Diagnoses / Procedures Referred By Contact Refer red To Contact Diagnoses ASCVD (arteriosclerotic cardiovascular disease) Chest pain, unspecified type Benedicto Oconnor Jr., MD Procedures NM Pharmacologic Stress Myocardial Perfusion [address] [place] [address] Referral ID Status Reason Start Date Expiration Visits Visits Date Requested Authorized [id number] Specialty 11/12/2017 05/11/2018 1 1 Service Requested Reason for Visit Reason Comments Follow-up when walking on level, no pr oblem; when walking uphill, has a burning feeling in his throa t; had no Nitro at the time Shortness of Breath when having the burning in h is throat, has feeling of slight SOB Encounter Details Date Type Department Care Team Description 11/12/2017 Office Visit Cardiology at Benedicto Oconnor ASCVD (arter iosclerotic cardiovascular disease); Sami Hanks MD Chest pain, unspecified type [address] [facility] [place] [id number] [phone] Social History Tobacco Use Types Packs/Day Years [...] Sign Reading Time Taken Comments Blood Pressure 130/74 11/12/2017 3:55 PM EST Pulse 60 11/12/2017 3:55 PM EST regular Temperature - - Respiratory Rate - - Oxygen Saturation - - Inhaled Oxygen Concentration - - Weight 98 kg (216 lb) 11/12/2017 3:55 PM EST Height - - Body Mass Index 29.29 07/09/2017 11:55 AM EDT documented in this encounter Progress Notes Benedicto Oconnor Jr., MD - 11/12/2017 3:20 PM EST Subjective: Patient ID: Burton Mcnair Jr. is a 62 y.o. male. Chief Complaint Patient presents with ??? Follow-up when walking on level, no problem; when walking uphill, has a burning feeling in his throat; had noNitro at the time ??? Shortness of Breath when having the burning in his throat, has feeling of slight SOB HPI He started having the throat burning he associates with his angina this last week when walking outside in the cold. It is worse when he tries to go up a grade. He had been walking that same route comfortably before. He has had no discomfort doing other activities inside. His energy level is stable. He denies worsening dyspnea and has no palpitations or dizziness. Review of Systems denies other issues No Known Allergies Current Outpatient Prescriptions Medication Sig Dispense Refill ??? nitroGLYcerin (NITROSTAT) 0.4 mg Tablet, Sublingual Place 1 tablet under the tongue every 5 minutes as needed for Chest pain. 25 tablet 12 ??? meTOPROLOL succinate (TOPROL-XL) 100 mg Tablet Sustained Release 24 hr Take 1 tablet by mouth daily. 90 [...] due to headache Objective: Physical Exam BP 130/74 (BP Location (NBP): Right arm, Patient Position: Sitting, BP Cuff Sizes: Large Adult (32-43 cm)) Pulse 60 Comment: regular Wt 98 kg (216 lb) BMI 29.29 kg/m2 NAD No JVD/HJR Chest clear Cor RR, no murmur Abd benign Ext no edema Assessment and Plan: Return of symptoms in cold weather- unclear if due to cold effect or worsening CAD- will need an exercise MIBI to assess for change in exercise tolerance and degree of ischemia. He is to use a scarf or other way to cover his face when walking outside in the cold- and not to push through the discomfort Follow up depends on the MIBI result documented in this encounter Plan of Treatment Upcoming Encounters Date Type Specialty Care Team Description 03/25/2022 Anesthesia Event Surgery Catrachita Baez MD [facility] ANESTHESIOLOGY [place], [place] [address] (Wo rk) 12/15/2022 Office Visit Cardiology Damián Hart MD [facility] [place], [place] [address] (Wo rk) 03/25/2050 Hospital Encounter Surgery Citlalli Richardson MD Vocal cord paralysis [facility] OTOLARYNGOLOGY [place], [place] [address] (Wo rk) documented as of this encounter Results NM Pharmacologic Stress Myocardial Perfusion (11/23/2017) Anatomical Region Laterality Modality Other Narrative 11/23/2017 MIBI Exercise Stress Test- Final Report ?? Burton Mcnair Jr. : 1955 [facility], [address] [facility] [address] Primary Physician: ??Librado Alvarado MD ? ?Indication: [...] Spect-same Electronically signed: Benedicto Oconnor Jr, MD [facility] ??Date: 11/23/2017 Benedicto Oconnor Jr., MD IM NM ORDERABLES documented in this encounter Visit Diagnoses Diagnosis ASCVD (arteriosclerotic cardiovascular d isease) Unspecified cardiovascular disease Chest pain, unspecified type Chest pain, unspecified type ASCVD (arteriosclerotic cardiovascular d isease) Unspecified cardiovascular disease Vocal cord paralysis Paralysis of vocal cords or larynx, unsp ecified documented in this encounter Care Teams Hole Digger Truck Driver Relationship Specialty Start Date End Date Librado Alvarado MD PCP - General 10/08/10 01/18/18 [address] [facility] [address] [place] [address] documented as of this encounter
--- OUTSIDE RECORDS SUMMARY | 2022-08-05 09:07 | XMS_ITS | Encounter Summary ---
:1955 Author Organization [place] [address] Care Team Providers Name Role Phone Librado Alvarado MD Primary Care Provider Reason for Visit Reason Onset Date Comments Medication Refill 08/25/2017 Encounter Details Date Type Department Care Team Description 08/25/2017 Telephone Cardiology at [facility] Benedicto Oconnor Jr., MD Medication Refill [address] [place] [address] [place] [address] [phone] (Wo rk) Social History Tobacco Use Types [...] Miscellaneous Notes Telephone Encounter - Sheryl Matthews - 08/25/2017 8:40 AM EDT Refill for: Metoprolol 50 mg Takes 2 now instead of the 1 1/ 90 day [facility] Sami He only has enough left for tomorrow. He is only expecting a call back @ [phone] if there is a problem. documented in this encounter Plan of Treatment Upcoming Encounters Date Type Specialty Care Team Description 03/25/2022 Anesthesia Event Surgery Catrachita Baez MD [facility] ANESTHESIOLOGY [place], [place] [address] (Wo rk) 12/15/2022 Office Visit Cardiology Damián Hart MD [facility] [place], [place] [address] (Wo rk) 03/25/2050 Hospital Encounter Surgery Citlalli Richardson MD Vocal cord paralysis [facility] OTOLARYNGOLOGY [place], [place] [address] (Wo rk) documented as of this encounter Visit Diagnoses Diagnosis ASCVD (arteriosclerotic cardiovascular d isease) Unspecified cardiovascular disease Hypertension, essential, benign Essential hypertension, benign Vocal cord paralysis Paralysis of vocal cords or larynx, unsp ecified documented in this encounter Care Teams Cuff Setter Overlock Relationship Specialty Start Date End Date Librado Alvarado MD PCP - General 10/08/10 01/18/18 [address] [facility] [address] [place] [address] documented as of this encounter
--- OUTSIDE RECORDS SUMMARY | 2022-08-05 09:07 | XMS_ITS | Encounter Summary ---
:1955 Author Organization [facility] [place] [address] Care Team Providers Name Role Phone Librado Alvarado MD Primary Care Provider Encounter Details Date Type Department Care Team Description 03/03/2017 Telephone Cardiology at [facility] Benedicto Oconnor Jr., MD [address] [place] [address] [place], [place] [phone] (Wo rk) Social History Tobacco Use Types Packs/Day Years Used Date Former Smoker Cigarettes Comments: quit at age 17 Sex Assigned at Date Recorded Not on file documented as of this encounter Miscellaneous Notes Telephone Encounter - Shania Montenegro RN - 03/03/2017 11:14 AM EDT Ov for Thursday, will do labs today, orders sent to lab. Cath set up for . 03/10 Telephone Encounter - Shania Montenegro RN - 03/03/2017 9:16 AM EDT Talked with him, he may have had labs with Jenny so will get those. CXR good from Sep. Telephone Encounter - Benedicto Oconnor Jr., MD - 03/03/2017 8:23 AM EDT MIBI- poor exercise tolerance, ST I No ST change but inferior lateral ischemia (likely CCX lesion worse) Called and discussed with him- will need repeat cath Start amlodipine 5 mg a day in interim Visit this week pre cath documented in this encounter Plan of Treatment Upcoming Encounters Date Type Specialty Care Team Description 03/25/2022 Anesthesia Event Surgery Catrachita Baez MD [facility] ANESTHESIOLOGY [place], [place] [address] (Wo rk) 12/15/2022 Office Visit Cardiology Damián Hart MD [facility] [place], [place] [address] (Wo rk) 03/25/2050 Hospital Encounter Surgery Citlalli Richardson MD Vocal cord paralysis [facility] OTOLARYNGOLOGY [place], [place] [address] (Wo rk) documented as of [...] ecified documented in this encounter Care Teams Regulation Supervisor Relationship Specialty Start Date End Date Librado Alvarado MD PCP - General 10/08/10 01/18/18 [address] [facility] [address] [place] [address] documented as of this encounter
--- OUTSIDE RECORDS SUMMARY | 2022-08-05 09:07 | XMS_ITS | Encounter Summary ---
:1955 Author Organization [facility] [place] [address] Care Team Providers Name Role Phone Librado Alvarado MD Primary Care Provider Encounter Details Date Type Department Care Team Description 09/01/2017 Telephone Cardiology at [facility] Ynes Russell RN [address] [place] [address] Social History Tobacco Use Types Packs/Day [...] this encounter Miscellaneous Notes Telephone Encounter - Ynes Russell RN - 09/01/2017 10:11 AM EDT Spoke with patient & gave him Dr. Oconnor's instructions Telephone Encounter - Benedicto Oconnor Jr., MD - 09/01/2017 10:02 AM EDT He could take it for 1-2 days with food but not intermediate Telephone Encounter - Ynes Russell RN - 09/01/2017 8:59 AM EDT Avelina called - this patient is graduating from cardiac rehab today - he has been having some back issues & his PCP gave him a Rx for Ibuprofen 600 mg q 6 hrs prn - Avelina was concerned because he daniel Plavix & should he be taking that? Had her tell him we would let him know. documented in this encounter Plan of Treatment Upcoming Encounters Date Type Specialty Care Team Description 03/25/2022 Anesthesia Event Surgery Catrachita Baze MD [facility] ANESTHESIOLOGY [place], [place] [address] (Wo rk) 12/15/2022 Office Visit Cardiology Damián Hart MD [facility] [place], [place] [address] (Wo rk) 03/25/2050 Hospital Encounter Surgery Citlalli Richardson MD Vocal cord paralysis [facility] OTOLARYNGOLOGY [place], [place] [address] (Wo rk) documented as of this encounter Visit Diagnoses Not on filedocumented in this encounter Care Teams Pipe Stripper Relationship Specialty Start Date End Date Librado Alvarado MD PCP - General 10/08/10 01/18/18 [address] [facility] [address] [place] [address] documented as of this encounter
--- OUTSIDE RECORDS SUMMARY | 2022-08-05 09:08 | XMS_ITS | Encounter Summary ---
:1955 Author Organization [facility] [place] [address] Care Team Providers Name Role Phone Librado Alvarado MD Primary Care Provider Encounter Details Date Type Department Care Team Description 09/18/2016 Telephone Cardiology at [facility] Benedicto Oconnor Jr., MD [address] [facility] [address] [place] [address] [place], [place] [id number] (Wo rk) Social History Tobacco Use Types Packs/Day Years Used Date Never Assessed Sex Assigned at Date Recorded Not on file documented as of this encounter Miscellaneous Notes Telephone Encounter - Courtney Jordan - 09/19/2016 8:09 AM EDT Appt scheduled for 09/19/16 @ 10:30 pm Pt informed Telephone Encounter - Benedicto Oconnor Jr., MD - 09/18/2016 1:53 PM EDT Call from Dr. Alvarado- patient with worsening symptoms, equivocal ETT at low level Would like him seen soon documented in this encounter Plan of Treatment Upcoming Encounters Date Type Specialty Care Team Description 03/25/2022 Anesthesia Event Surgery Catrachita Baez MD [facility] ANESTHESIOLOGY [place], [place] [address] (Wo rk) 12/15/2022 Office Visit Cardiology Damián Hart MD [facility] [place], [place] [address] (Wo rk) 03/25/2050 Hospital Encounter Surgery Citlalli Richardson MD Vocal cord paralysis [facility] OTOLARYNGOLOGY [place], [place] [address] (Wo rk) documented as of this encounter Visit Diagnoses Not on filedocumented in this encounter Care Teams Starch Cooker Relationship Specialty Start Date End Date Librado Alvarado MD PCP - General 10/08/10 01/18/18 580 [facility] [address] [place] [address] documented as of this encounter
--- OUTSIDE RECORDS SUMMARY | 2022-08-05 09:08 | XMS_ITS | Encounter Summary ---
:1955 Author Organization [facility] [place] [address] Care Team Providers Name Role Phone Librado Alvarado MD Primary Care Provider Encounter Details Date Type Department Care Team Description 11/14/2016 Telephone Cardiology at [facility] Vick Pate, [place] [address] Social History Tobacco Use Types Packs/Day Years Used Date Former Smoker Cigarettes Comments: quit at age 17 Sex Assigned at Date Recorded Not on file documented as of this encounter Miscellaneous Notes Telephone Encounter - Vick Pate RN - 11/14/2016 1:48 PM EST Patient called to report that the Pharmacy did not fill the patients clopidogrel [address] Bravo prescribed this morning. They only filled his normal 75 mg prescription. Pharmacy states they have never heard of 300 mg dose and do not have it in stock. Recommended to the patient that he take 4 of the 75 mg tablets to achieve the 300 mg dose that was ordered by Dr. Bravo. Patient verbalizes agreement and understanding to POC. documented in this encounter Plan of Treatment Upcoming Encounters Date Type Specialty Care Team Description 03/25/2022 Anesthesia Event Surgery Catrachita Baez MD [facility] ANESTHESIOLOGY [place], [place] [address] (Wo rk) 12/15/2022 Office Visit Cardiology Damián Hart MD [facility] er [place], [place] [address] (Wo rk) 03/25/2050 Hospital Encounter Surgery Citlalli Richardson MD Vocal cord paralysis [facility] OTOLARYNGOLOGY [place], [place] [address] (Wo rk) documented as of this encounter Visit Diagnoses Not on filedocumented in this encounter Care Teams Department Assistant Relationship Specialty Start Date End Date Librado Alvarado MD PCP - General 10/08/10 01/18/18 [address] [facility] [address] [place] [address] documented as of this encounter
--- OUTSIDE RECORDS SUMMARY | 2022-08-05 09:08 | XMS_ITS | Encounter Summary ---
:1955 Author Organization [facility] [place] [address] Care Team Providers Name Role Phone Librado Alvarado MD Primary Care Provider Encounter Details Date Type Department Care Team Description 09/25/2016 Notes Only [facility] [place] [address] Social History Tobacco Use Types Packs/Day Years Used Date Former Smoker Cigarettes Comments: quit at age 17 Sex Assigned at Date Recorded Not on file documented as of this encounter Progress Notes Jayda Villeda - 09/25/2016 9:14 AM EST ABSORB IV CONSENT NOTE ABSORB IV RANDOMIZED CONTROLLED TRIAL A Clinical Evaluation of Absorb??? BVS, the Everolimus Eluting Bioresorbable Vascular Scaffold in the Treatment of Subjects with de adryan [place] Coronary Artery Lesions PI: Donnie Hayden MD Pager #:[phone] Consent: I met with Burton Mcnair JrChelsey in company of his and reviewed the ABSORB IV trial. Followingthe determination this potential participant did not have any obvious evidence of clinical exclusionto the ABSORB IV Randomized Controlled Trial, the subject was provided with a written informed consent ([facility] date 06/05/2016) and was given adequate time for review of the consent. The purpose, procedures, risks, potential benefits of the study, as well as alternatives to participation were reviewed and questions were answered. The subject signed the informed consent agreeing to participate, providing angiographic inclusion criteria are satisfied. The subject was provided with a copy of the signed in formed consent document. No study related activities were performed prior to completion of the consent process. After the Informed Consent process had been completed, Mr. Mcnair was taken to the component lab tech. In the lab it was determined that Mr. Goldens disease was not consistent with the protocol of the ABSORB IV Trial and he was not randomized into the study. documented in this encounter Plan of Treatment Upcoming Encounters Date Type Specialty Care Team Description 03/25/2022 Anesthesia Event Surgery Catrachita Baez MD [facility] ANESTHESIOLOGY [place], [place] [address] (Wo rk) 12/15/2022 Office Visit Cardiology Damián Hart MD [facility] [place], [place] [address] (Wo rk) 03/25/2050 Hospital Encounter Surgery Citlalli Richardson MD Vocal cord paralysis [facility] OTOLARYNGOLOGY [place], [place] [address] (Wo rk) documented as of this encounter Visit Diagnoses Not on filedocumented in this encounter Care Teams Software Test Manager Relationship Specialty Start Date End Date Librado Alvarado MD PCP - General 10/08/10 01/18/[address] [address] documented as of this encounter
--- OUTSIDE RECORDS SUMMARY | 2022-08-05 09:08 | XMS_ITS | Encounter Summary ---
:1955 Author Organization [facility] [place] [address] Care Team Providers Name Role Phone Libardo Alvarado MD Primary Care Provider Reason for Referral Diagnostic Test (Routine) - Specialty Diagnoses / Procedures Referred By Contact Refer red To Contact Diagnoses Chest pain, unspecified type ASCVD (arteriosclerotic cardiovascular disease) Benedicto Oconnor Jr., MD Procedures NM Myocardial Perfusion Stress Rest [address] [facility] [address] Referral ID Status Reason Start Date Expiration Visits Visits Date Requested Authorized [id number] Specialty 02/24/2017 08/23/2017 1 1 Service Requested Encounter Details Date Type Department Care Team Description 02/24/2017 Telephone Cardiology at [facility] Benedicto Oconnor Jr., MD [address] [facility] [address] [place] [address] [place] [address] [phone] (Wo rk) Social History Tobacco Use Types Packs/Day Years Used Date Former Smoker Cigarettes Comments: quit at age 17 Sex Assigned at Date Recorded Not on file documented as of this encounter Miscellaneous Notes Telephone Encounter - Courtney Jordan - 02/24/2017 2:17 PM EDT Mibi scheduled 03/02/17 @ 8:30 [place] Pt informed Telephone Encounter - Kenroy Valdes RN - 02/24/2017 10:06 AM EDT Called patient and let him know. Telephone Encounter - Benedicto Oconnor Jr., MD - 02/24/2017 9:43 AM EDT Increase metoprolol to 1 1/2 pill a day (75 mg) and set up exercise MIBI on meds with office visit to follow Telephone Encounter - Kenroy Valdes RN - 02/24/2017 9:25 AM EDT Called patient back, he reports that yesterday while climbing stairs he developed SOB and Chest Heaviness, he says the heaviness was very similar to the heaviness he felt prior to his Stent placement. The pain eventually went away on its own, did not take Nitro. When he got home he went for a brisk walk and again developed the same symptoms. He currently is pain free. Medication list updated. Had Stent placement 09/2016. Telephone Encounter - Courtney Jordan - 02/24/2017 8:25 AM EDT Pt had stent placed in Sep 2016. He is having the same symptoms as before stent placed SOB and Heaviness in chest documented in this encounter Plan of Treatment Upcoming Encounters Date Type Specialty Care Team Description 03/25/2022 Anesthesia Event Surgery Catrachita Baez MD [facility] ANESTHESIOLOGY [place], [place] [address] (Wo rk) 12/15/2022 Office Visit Cardiology Damián Hart MD [facility] [place], [place] [address] (Wo rk) 03/25/2050 Hospital Encounter Surgery Citlalli Richardson MD Vocal cord paralysis [facility] OTOLARYNGOLOGY [place], [place] [address] (Wo rk) documented as of this encounter Results NM Myocardial Perfusion Stress Rest (03/03/2017) Anatomical Region Laterality Modality Other Narrative 03/03/2017 MIBI Exercise Stress Test- Final Report ?? Burton Mcnair Jr. : 1955 [facility], [address] [facility], [place] [address] Primary Physician: ??Librado Alvarado MD ? ?Indication: chest pain Date: 03/02/2017 Summary: Max Exercise: ??3:00 ??Stage I ??Hamlet ? ? 4.6 ?? METS Max HR: ? 104< 85 % PMR(133) Max BP: ??188/[address] change: ??none Reason for Termination: chest pain, dysp anton Imaging: ??Small to moderate inferior la teral ischemia ??EF 61 % Impression: small to moderate ischemia, poor exercise tolerance Details: Medication: on metoprolol Risk Factors: ?? Family History, HTN, DM , Cholesterol, Smoking Resting EKG: NSR 75, tall R V2 ?Rest ing BP: 147/87 Exercise per [place]let protocol Arrhythmias: none Recovery: ??BP ?? -> ?? 195/96 ?HR ? ? -> 65 Arrhythmias: none Rest Images: 27.2 mC MIBI, Spect-normal Stress Images: ??10 mC MIBI, Spect-small to moderate inferior lateral defect from base to mid region Electronically signed: Benedicto Oconnor Jr, MD FACC ??Date: 03/03/20 17 Benedicto Oconnor Jr., MD IMG NM ORDERABLES documented in this encounter Visit Diagnoses Diagnosis Chest pain, unspecified type ASCVD (arteriosclerotic cardiovascular d isease) Unspecified cardiovascular disease Chest pain, unspecified type ASCVD (arteriosclerotic cardiovascular d isease) Unspecified cardiovascular disease Vocal cord paralysis Paralysis of vocal cords or larynx, unsp ecified documented in this encounter Care Teams Video Manager Relationship Specialty Start Date End Date Librado Alvarado MD PCP - General 10/08/10 01/18/[address] [address] documented as of this encounter
--- OUTSIDE RECORDS SUMMARY | 2022-08-05 09:08 | XMS_ITS | Encounter Summary ---
:1955 Author Organization [place] [address] Care Team Providers Name Role Phone Librado Alvarado MD Primary Care Provider Encounter Details Date Type Department Care Team Description 10/06/2016 Telephone Cardiology at [facility] Benedicto Oconnor Jr., MD [address] [place] [address] [place] [phone] [place], [place] [id number] (Wo rk) Social History Tobacco Use Types Packs/Day Years Used Date Former Smoker Cigarettes Comments: quit at age 17 Sex Assigned at Date Recorded Not on file documented as of this encounter Miscellaneous Notes Telephone Encounter - Shania Montenegro RN - 10/06/2016 1:38 PM EST Called and they told me that we needed to call the insurance co. I called the insurance co and they couldn't help me without a claim number. I called Dr. Bravo's number at and Berenice is going to look into it. I had the letter scanned and requested the stress test from Dr. Alvarado's office to scan also. I called Baljinder and told him what had transpired and that Dr. Bravo's office is looking into it. Telephone Encounter - Shania Montenegro RN - 10/06/2016 10:57 AM EST Called him and he was in the car. He is going to call back Telephone Encounter - Sheryl Matthews - 10/06/2016 8:39 AM EST Mr Mcnair called on 10-03 to say that his insurance had denied the dye and x- ray charges on his visit of 09-24. Patient had a cath @ on 09-25. Please call him back at [phone]. documented in this encounter Plan of Treatment Upcoming Encounters Date Type Specialty Care Team Description 03/25/2022 Anesthesia Event Surgery Catrachita Baez MD [facility] ANESTHESIOLOGY [place], [place] [address] (Wo rk) 12/15/2022 Office Visit Cardiology Damián Hart MD [facility] [place], [place] [address] (Wo rk) 03/25/2050 Hospital Encounter Surgery Citlalli Richardson MD Vocal cord paralysis [facility] OTOLARYNGOLOGY [place], [place] [address] (Wo rk) documented as of this encounter Visit Diagnoses Not on filedocumented in this encounter Care Teams [employer] Relationship Specialty Start Date End Date Librado Alvarado MD PCP - General 10/08/10 01/18/18 [address] [address] [address] [place] [address] documented as of this encounter
--- OUTSIDE RECORDS SUMMARY | 2022-08-05 09:08 | XMS_ITS | Encounter Summary ---
:1955 Author Organization [place] [address] Care Team Providers Name Role Phone Librado Alvarado MD Primary Care Provider Reason for Referral Consultation (Routine) - Specialty Diagnoses / Procedures Referred By Contact Refer red To Contact Cardiac Rehabilitation Diagnoses S/P coronary artery stent placement Mariama Bravo MD Cardiac Rehab, [facility] [address] [place], [place] [id number] [place] [phone] Fax: Referral ID Status Reason Start Date Expiration Date Visits V isits Requested Authorized [id number] Consult, 09/27/2016 03/26/2017 36 36 Test & Treat Reason for Visit Auth/Cert Specialty Diagnoses / Procedures Referred By Contact Refer red To Contact Diagnoses Chest pain, unspecified Chest pain Procedures PRO CATH PLMT LEFT HEART CATH & ARTS W/INJ & ANGIO IMG S&I CARDIAC CATHETERIZATION Referral ID Status Reason Start Date Expiration Date Visits Requ ested Visits Authorized [id number] 1 1 Encounter Details Date Type Department Care Team Description 09/25/2016 - Hospital Intermediate Cardiac Mraiama Bravo MD ASCVD (arteriosclerotic cardiovascular d isease); 09/27/2016 Encounter Care Unit [facility] S/P coronary artery stent placement [place] [id number] [phone] [place], [place] (Work) [phone] Social History Tobacco Use Types Packs/Day Years Used Date Former Smoker Cigarettes Comments: quit at age 17 Sex Assigned at Date Recorded Not on file documented as of this encounter Last Filed Vital Signs Vital Sign Reading Time Taken Comments Blood Pressure 148/88 09/27/2016 7:32 AM EST Pulse 65 09/27/2016 7:32 AM EST Temperature 36.7 ??C (98.1 ??F) 09/27/2016 7:32 AM EST Respiratory Rate 17 09/27/2016 7:32 AM EST Oxygen Saturation 97% 09/27/2016 7:32 AM EST Inhaled Oxygen Concentration - - Weight 96.3 kg (212 lb 4.9 oz) 09/27/2016 7:00 AM EST Height 182.9 cm (6' 0.01) 09/25/2016 7:25 PM EST Body Mass Index 28.79 09/25/2016 7:25 PM EST documented in this encounter Discharge Summaries Tres Reveles MD - 09/26/2016 1:25 PM EST Discharge Summary Patient Name: Burton Mcnair Jr. Patient Age: 61 y.o. Language: Barbadian Race: White Ethnicity: Not nor Admit date: 09/25/2016 Discharge date and time: 09/27/2016 Attending Physician: Mariama Bravo MD Discharge Physician: Mariama Bravo MD Follow-up Recommendations for Providers: - dual antiplatelet regimen as follows: - aspirin 81 mg daily lifelong - ticagrelor 90 mg twice daily for at least 12 months after PCI; if tolerated would pursue longer duration of dual antiplatelet therapy - have discontinued simvastatin and started atorvastatin - recommend follow up with cardiology in 6 weeks; Dr Nancy Bravo on 11-14-16 Inpatient Provider Contact Information: Mariama Bravo MD - attending Discharge Diagnoses (Hospital Problems) and Secondary Diagnoses (Chronic Problems): Active Hospital Problems Diagnosis ??? ASCVD (arteriosclerotic cardiovascular disease) MIBI 2008: 10:30, 1:30 Stage IV [place] 12 METS Max HR: 153 > 85 % PMR(141) Max BP: 162/[address] change: none Reason for Termination: fatigue, no CP Imaging: small partially reversible infero-lateral defect EF 68% Impression: small area of ischemia at high work level Resolved Hospital Problems Diagnosis Date Resolved No resolved problems to display. Active Non-Hospital Problems Diagnosis ??? Diabetes mellitus ??? Hyperlipidemia ??? Hypertension Operations/Major Procedures: Operations: Procedure(s) with comments: CARDIAC CATHETERIZATION - Procedure: PCI with plan for orbital atherectomy History of Presentation: Burton Mcnair Jr. is a 61 y.o. male referred for cardiac catheterization by Dr Oconnor for evaluation of exertional chest pain. His office notes from 09/19 reviewed. He was unable to complete exercise treadmill in the third stage due to angina. He denies orthopnea, PND, pedal edema, palpitations orsyncope. Denies bleeding problems (melena, hematochezia, hematemesis or hematuria). He had h/o PE after knee replacement about 6 years ago and has been on coumadin for 6 months. Hospital Course: He underwent cardiac catheterization via right radial arteriotomy access site on 09-25-16, and was noted to have prox to mid RCA has a severe 95% calcified stenosis (full report below). Decision was made to continue optimal medical therapy and bring him back to the director of cath lab for PCI with orbital atherectomy assistance. He returned to the cardiac director of cath lab on 09-26-16 and underwent orbital atherectomy with successful stent insertion (3.50 x 26 mm Resolute (KAROLYN)) to the proximal RCA lesion, via right femoral arteriotomyaccess site. He was admitted following his initial cardiac catheterization on 09-25-2016 and remained for overnight monitoring and observation, following his PCI on 09-26-16. He did well overnight without significant chest pain or arrhythmias on telemetry. The right femoral and previous radial access site was evaluated and the femoral and radial pulses were palpable with no evidence of vascular compromise to the right groin or hand. Cardiac biomarkers and a repeat ECG were [...] 12.5 (L) 09/26/2016 HCT 35.3 (L) 09/26/2016 PLATELET 115 (L) 09/26/2016 No results for input(s): INR in the last 168 hours. Lab Results Component Value Date NA 141 09/26/2016 K 4.1 09/26/2016 CL 103 09/26/2016 CO2 24 09/26/2016 BUN 14 09/26/2016 CREATININE 0.79 (L) 09/26/2016 Recent Labs 09/26/16 0317 09/25/16 2104 CK 146 183 TROPONINT <0.03 <0.03 Cardiac Catheterization 09-25-16: Coronary Angiography: Dominance: Right ? Left Main ? Left Anterior Descending There was mild diffuse disease of the proximal segment of the left anterior descending artery (LAD).The LAD was large. Distal flow was normal. There was mild diffuse disease of the entire vessel segment of the first diagonal branch (Diagonal 1) of the LAD. ? 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 There was a 60% single discrete stenosis of the mid segment of the first obtuse marginal branch (OM1) of the LCX. The OM1 was moderate in size. ? Right Coronary Artery There was a 95% calcified single discrete stenosis of the proximal segment of the right coronary artery (RCA). The RCA was large. Distal flow was decreased (LUIS CARLOS Grade 2). The mid segment of the RCA had a calcified single discrete 50% stenosis. There was mild diffuse disease of the entire vessel segment of the right posterior descending branch(RPDA) of the RCA. Distal flow was decreased (LUIS CARLOS Grade 1) and was via collaterals from the LAD. ? Vascular Access Management: Mechanical Compression of the right radial artery access site was performed. ? Conclusions: * Two vessel coronary artery disease (LCX and RCA) ? Complications/Events: The patient had no complications during these procedures. ? Comments: Pt referred for symptoms of stable angina. Prox to mid RCA has a severe 95% calcified stenosis. We attempted to pass a wire and this was challenging. Wire crossed the initial stenosis however did not enter distal vessel with ease. Given the feel of the lesion and the visible severity of calcification,lesion treatment better suited for modification with atherectomy prior to PCI. I would like to attempt to use orbital atherectomy guidance via femoral approach. Will attempt to make arrangements for this for tomorrow am. If orbital atherectomy not available, will attempt rotational atherectomy. Pt will be admitted and continued on optimal medical therapy. Cardiac Catheterization 09-26-16 Coronary Angiography: Dominance: Right ? Left Main This vessel was not injected. ? Left Anterior Descending This vessel was not injected. ? Left Circumflex This vessel was not injected. ? Right Coronary Artery There was a 95% single discrete stenosis of the proximal segment of the right coronary artery (RCA).The RCA was large. The mid segment of the RCA had a single discrete 50% stenosis. Distal flow was decreased (LUIS CARLOS Grade 2). ? Intervention Summary: Right Coronary Artery Proximal 95% Atherectomy and stent insertion were performed on the 95% stenosis in the proximal segment of the RCA. This was a de adryan lesion. According to the ACC/AHA classification system, this lesion was a type C high risk lesion. Primary prevention of restenosis was the indication for stent insertion. This wasthe culprit lesion. Vessel flow pre intervention was LUIS CARLOS 2. Atherectomy was accomplished through a 7 Fr AL 1 guide. The lesion was predilated with a SPRINTER OTW 15 MM balloon with a maximum size of 1.50mm and a maximum inflation pressure of 14 atmospheres. Therotational atherectomy procedure was performed with a 1.25 mm Diamondback and five passes. A total of 1 vanita were used. Stent insertion was accomplished through a 7 Fr. AL 1 guide. The lesion was predilated with a 3.00mmNC EUPHORA 15 MM balloon with a maximum inflation pressure of 14 atmospheres. A premounted 3.50 x 26mm Resolute (KAROLYN) was deployed with a maximum inflation pressure of 12 atmospheres. Following stent deployment, the lesion was dilated using a 4.00mm NC EUPHORA 15 MM balloon with a maximum inflation pressure of 18 atmospheres. The final outcome was defined as successful. The residual stenosis following this intervention was 10%. The final LUIS CARLOS flow was 3. Pt was a planned atherectomy guided PCI to a 95% heavily calcified proximal and mid RCA. Orbital atherectomy was performed using the CSI diamondback at low speed. 6 passes were made to modify the lesion with good result. ? Vascular Access Angiogram: A selective angiogram at the right femoral artery revealed mild diffuse disease. A closure device iscontraindicated due to the sheath insertion site located at the bifurcation of this vessel. ? Vascular Access Management: Manual Compression of the right femoral artery access site was performed. ? Conclusions: * Obstructive disease of the RCA * Successful atherectomy and stent insertion of the proximal RCA lesion ? Complications/Events: The patient had no complications during these procedures. Pending Studies and Lab Data: None Discharge Conditions/Prognosis: Good Discharge to: Home Updated Allergies/ADRs: No Known Allergies Immunizations Given this Hospitalization: Immunization History Administered Date(s) Administered ??? Influenza Vaccine, Whole 09/16/2009 Discharge Medications: Your Medications New Medications Dose Details atorvastatin 80 mg Tab Commonly known as: LIPITOR Take 1 tablet by mouth every evening. 80 mg Quantity: 30 tablet Refills: 5 ticagrelor 90 mg Tab Commonly known as: BRILINTA Take 1 tablet by mouth 2 times daily. 90 mg Quantity: 60 tablet Refills: 11 Continued medications, unchanged Dose Details aspirin 81 mg Tbec Take 81 mg by mouth daily. 81 mg Refills: 0 glipiZIDE 10 mg Tr24 Commonly known as: GLUCOTROL XL Take 1 tablet by mouth daily. 1 tablet Refills: 0 lisinopril 40 mg Tab Commonly known as: PRINIVIL;ZESTRIL Take 40 mg by mouth daily. 40 mg Refills: 0 metFORMIN 1,000 mg Tab Commonly known as: GLUCOPHAGE Take 1,000 mg by mouth 2 times daily (with meals). 1000 mg Refills: 0 meTOPROLOL succinate 50 mg Tablet sr Commonly known as: TOPROL-XL 1 tablet daily. 1 tablet Refills: 0 nitroGLYcerin 0.4 mg Subl Commonly known as: NITROSTAT Place 1 tablet under the tongue every 5 minutes as needed for Chest pain. 0.4 mg Quantity: 25 tablet Refills: 12 STOPPED Medications simvastatin 40 mg Tab Commonly known as: ZOCOR Smoking Status at Discharge: History Smoking Status [...] appointments: -During 8am-5pm Thursday through Thursday call [phone] to speak with a nurse in the cardiology clinic -All other times call [phone] and ask to speak to the hand etcher helper artifacts conservator. MEDICATIONS - restart your metformin on 09/28/2016 - you need to be on daily Ticagrelor for at least 1 year, and if tolerated, dual antiplatelet therapy for longer, and aspirin for lifetime to help prevent clots forming inside of your stent. - keep nitroglycerin with you at all times, if you have chest pain, can take 1 tablet under your tongue every 5 minutes up to 3 tablets. If your pain does not resolve you need to call [phone]. Return to work/ usual actvities: 1 week, as tolerated. 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 Driving: No driving for 48 hours after catheterization. Follow up Appointments: Primary care provider: Cardiology: Librado Alvarado MD [phone] Follow up as planned or as needed. Dr. Mariama Bravo [phone] 11-14-2016; 10:15 am check-in General Instructions None Future Appointments and Orders Future Appointments Provider Department Dept Phone 11/14/2016 10:30 AM Mariama Bravo MD Cardiology [phone] Discharge References/Attachments None documented in this encounter Discharge Instructions Patient InstructionsTahmina Leone MD - 09/26/2016 1:22 PM EST Cardiology Instructions Call your doctor if: Chest pain, dyspnea, pain or swelling in legs occurs. If you have non-emergent questions between now and the time of your follow up appointments: -During 8am-5pm Thursday through Thursday call [phone] to speak with a nurse in the cardiology clinic -All other times call [phone] and ask to speak to the hand etcher helper artifacts conservator. MEDICATIONS - restart your metformin on 09/28/2016 - you need to be on daily Ticagrelor for at least 1 year, and if tolerated, dual antiplatelet therapy for longer, and aspirin for lifetime to help prevent clots forming inside of your stent. - keep nitroglycerin with you at all times, if you have chest pain, can take 1 tablet under your tongue every 5 minutes up to 3 tablets. If your pain does not resolve you need to call 911. Return to work/ usual actvities: 1 week, as tolerated. 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 Driving: No driving for 48 hours after catheterization. Follow up Appointments: Primary care provider: Cardiology: Librado Alvarado MD [phone] Follow up as planned or as needed. Dr. Mariama Bravo [phone] 11-14-2016; 10:15 am check-in AttachmentsThe following attachments cannot be sent through Care Everywhere.CAD (CORONARY ARTERY DISEASE): GENERAL INFO (ANGUILLAN)PCI (PERCUTANEOUS CORONARY INTERVENTION): POST-OP (ANGUILLAN)HEART ATTACK: MEDICINE TO REDUCE RISK (ANGUILLAN) documented in this encounter Medications at Time of Discharge Medication Sig Dispensed Refills Start Date End Date aspirin 81 mg Tablet, Take 162 mg by mouth 0 Delayed Release (E.C.) daily. Increased by neurologist metFORMIN (GLUCOPHAGE) Take 1,000 mg by 0 1,000 mg Tablet mouth 2 times daily (with meals). atorvastatin (LIPITOR) Take 1 tablet by 30 tablet 5 016 03/06/2017 80 mg Tablet mouth every evening. ticagrelor (BRILINTA) 90 Take 1 tablet by 60 tablet 11 09/2611/14/2016 mg Tablet mouth 2 times daily. glipiZIDE (GLUCOTROL XL) Take 1 tablet by 0 09/2211/14/2016 10 mg Tablet Extended mouth daily. Rel [address] 1 tablet under 25 tablet [...] documented as of this encounter Progress Notes Macey Phelps RN - 09/27/2016 11:57 AM EST IVs and telemetry discontinued. AVS reviewed with pt and pt's . No additional questions at this time. Pt to be driven home by in own car. Pili Enriquez RN - 09/26/2016 6:24 PM EST OUTCOME EVALUATION NOTE: OUTCOME SUMMARY: Patient went to cath today for arthrectomy and stent placement. Trops negative x 3. Right femoral c/d/i with no hematoma present. Patient SR on tele. No CP, SOB, or other discomforts. Will continue to monitor. PLAN MOVING FORWARD: Consult with cardiac rehab and discharge? INDIVIDUALIZED FALL PREVENTION INTERVENTIONS: Patient-specific fall risk factors per assessment: [current deficits]: N/A Assistance [level of assistance required for transfers and ambulation]: Independent Supervision [direct monitoring required during toileting and ADLs]: Tele monitor, call-ballesteros within reach Surveillance [continuous indirect monitoring]: Room near RN station, purposeful hourly rounding Patient-specific fall prevention interventions for sensory deficits provided, if applicable: Ongoing CPG GOAL OUTCOME EVALUATION: documented in this encounter H&P Notes Mariama Bravo MD - 09/25/2016 9:14 AM EST Post-PCI Admission History and Physical PCP: Librado Alvarado MD Referring: Dr Oconnor Date of Admission: 09/25/2016 Admission Diagnosis: S/p diagnostic coronary angiogram with plan for PCI with use of orbital (or rotational) atherectomy device Problem List: Patient Active Problem List Diagnosis ??? Diabetes [...] area of ischemia at high work level HPI: Burton Mcnair Jr. is a 61 y.o. male referred for cardiac catheterization by Dr Oconnor for evaluation of exertional chest pain. His office notes from 09/19 reviewed. He was unable to complete exercise treadmill in the third stage due to angina. He denies orthopnea, PND, pedal edema, palpitations orsyncope. Denies bleeding problems (melena, hematochezia, hematemesis or hematuria). He had h/o PE after knee replacement about 6 years ago and has been on coumadin for 6 months. I have reviewed the available records, interviewed and examined the patient. He underwent cardiac cath today via right radial arteriotomy and is admitted with plan to be broughtback to the cardiac director of cath lab tomorrow for PCI and intended use of orbital (or potentially) rotational atherectomy device. Will cloud for IV hydration, pain management, access site management in the setting of anticoagulation, serial cardiac biomarker monitoring, telemetry monitoring, evaluation of theirmedical condition, and cardiac rehabilitation. ROS/PMHx/Fam Hx/Soc Hx: Reviewed, see outpatient note. Physical Exam BP 147/83 Pulse 67 Temp 36.6 ??C (97.9 ??F) Resp 16 Wt 95.7 kg (211 lb) SpO2 98% BMI 28.62 kg/m2 Gen: Well-appearing, NAD HEENT: No pallor, no jaundice CV: RRR, S1 S2 physiologic, No JVD Pulm: CTAB, no w/r/r Abd: soft, NT, ND, +BS, no bruits Vasc: 2+ bilat radial with favorable Santi's test on the R, 2+ bilat femoral pulses w/o bruits, 1+ bilat DP pulses Extr: wwp, no edema Labs: BUN/Creatinine: 14/0.8 Hgb/Hct: 14/40.3 Platelets: 150 PT/INR: 10/1.0 Assessment/ Plan: #CAD, s/p diagnostic cardiac cath with plan for intervention tomorrow as described above - Admit for overnight monitoring - Telemetry, serial ECGs, cycle cardiac biomarkers - Dual antiplatelet therapy - IVF - Monitor access site - Cardiac rehab consult (for post discharge care given plan for PCI) Tahmina Leone MD Interventional Title Manager Mariama Bravo MD - 09/25/2016 7:51 AM EST Images from the original note were not included. Burton Mcnair Jr. is a 61 y.o. male referred for cardiac catheterization by Dr Oconnor for evaluation of exertional chest pain. His office notes from 09/19 reviewed. He was unable to complete exercise treadmill in the third stage due to angina. He denies orthopnea, PND, pedal edema, palpitations orsyncope. Denies bleeding problems (melena, hematochezia, hematemesis or hematuria). He had h/o PE after knee replacement about 6 years ago and has been on coumadin for 6 months. Outpatient Prescriptions Marked as Taking for the 09/25/16 encounter (Hospital Encounter) Medication Sig Dispense Refill ??? aspirin 81 mg Tablet, Delayed Release (E.C.) Take 81 mg by mouth daily. ??? glipiZIDE (GLUCOTROL) 10 mg Tablet Take 10 mg by mouth daily. ??? metFORMIN (GLUCOPHAGE) 1,000 mg Tablet Take 1,000 mg by mouth 2 times daily (with meals). ??? lisinopril (PRINIVIL;ZESTRIL) 40 mg Tablet Take 40 mg by mouth daily. ??? simvastatin (ZOCOR) 40 mg Tablet Take 40 mg by mouth nightly. ??? meTOPROLOL succinate (TOPROL-XL) 50 mg Tablet Sustained Release 24 hr 1 tablet daily. 0 BP 147/83 Pulse 67 Temp 36.6 ??C (97.9 ??F) Resp 16 Wt 95.7 kg (211 lb) SpO2 98% BMI 28.62 kg/m2 PE NAD CV: RRR, S1 S2 physiologic, No JVD Pulm: CTAB, no w/r/r Abd: soft, NT, ND, +BS, no bruits Vasc: 2+ bilat radial with favorable Santi's test on the R, 2+ bilat femoral pulses w/o bruits, 1+ bilat DP pulses Extr: wwp, no edema Labs reviewed and notable for: BUN/Creatinine: 14/0.8 Hgb/Hct: 14/40.3 Platelets: 150 PT/INR: 10/1.0 A/P 61 y.o. male here for cardiac catheterization. - proceed as planned - consent signed - no obvious CI to DAPT - FULL code Marie Quigley MD 7:51 AM September 25, 2016 Title Manager Pager # [phone] I interviewed and examined Mr. Mcnair on 09/25/16. I agree with the history, physical exam findings and clinical plan as outlined above. Plan for diagnostic coronary angiography with [facility] via right radial approach for stable angina. Mariama Bravo MD [facility] Interventional Cardiology Pager [phone] documented in this encounter Miscellaneous Notes Plan of Care - Alice Sellers RN - 09/27/2016 1:36 AM EST Problem: Patient Care Overview Goal: Plan of Care Review Outcome: Ongoing (Interventions Implemented as Appropriate) OUTCOME EVALUATION NOTE: OUTCOME SUMMARY: Pt in SR, VS as documented, no pain/sob reported. R groin site c/d/i, no drainage. Pt had uneventfulnight, no acute concerns at this time, will cont to monitor. PLAN MOVING FORWARD: D/c today INDIVIDUALIZED FALL PREVENTION INTERVENTIONS: Patient-specific fall risk factors per assessment: [current deficits]: See flow sheet Assistance [level of assistance required for transfers and ambulation]: Ind Supervision [direct monitoring required during toileting and ADLs]: Ind Surveillance [continuous indirect monitoring]: ICCU level of care Patient-specific fall prevention interventions for sensory deficits provided, if applicable: [X] No CPG GOAL OUTCOME EVALUATION: Consult Note - Thelma Torres RN - 09/26/2016 2:24 PM EST Burton Mcnair Jr. was seen today by Cardiac Rehabilitation for: (no ) An activity evaluation - Patient remains on bedrest post cath (yes ) Educational packet regarding CAD, cardiac risk factors, and managing angina given to patient. Heart diagram reviewed. Reviewed managing angina /use of sl nitroglycerin. Mediterranean diet guidelines briefly reviewed. Given parameters for home exercise. Patient reports he walks a lot at home for exercise. Emphasized the importance of diabetes management. (yes ) Participation to the outpatient cardiac rehabilitation program at [facility] was discussed. Patient agrees to a referral to this program. The referral will be sent at discharge and the patient should be contacted by the Program within 1- 2 weeks from discharge. Plan of Care - Azra Roberts RN - 09/26/2016 2:29 AM EST Problem: Patient Care Overview Goal: Plan of Care Review Outcome: Ongoing (Interventions Implemented as Appropriate) 09/26/16224 Coping/Psychosocial Plan Of Care Reviewed With patient OUTCOME EVALUATION NOTE: OUTCOME SUMMARY: PLAN MOVING FORWARD: INDIVIDUALIZED FALL PREVENTION INTERVENTIONS: Patient-specific fall risk factors per assessment: [current deficits]: Assistance [level of assistance required for transfers and ambulation]: Supervision [direct monitoring required during toileting and ADLs]: Surveillance [continuous indirect monitoring]: Patient-specific fall prevention interventions for sensory deficits provided, if applicable: CPG GOAL OUTCOME EVALUATION: Goal: Fall Prevention-Safe Patient Handling Outcome: Ongoing (Interventions Implemented as Appropriate) 09/25/16 1500 Restraint Interventions Safety Promotion/Fall Prevention nonskid shoes/slippers when out of bed Goal: Infection Control Outcome: Ongoing (Interventions Implemented as Appropriate) 09/26/16224 Safety Interventions Isolation Precautions standard precautions maintained Infection Prevention rest/sleep promoted;environmental surveillance performed Coping Strategies Supportive Measures active listening utilized;relaxation techniques promoted;verbalization of feelings encouraged Problem: Cardiac Cath/Percutaneous Coronary Intervention (Adult) Intervention: Monitor ECG and Peripheral Pulses 09/26/16224 ECG Sinus Rhythm normal sinus rhythm Goal: Signs and Symptoms of Listed Potential Problems Will be Absent, Minimized or Managed (Cardiac Cath/Percutaneous Coronary Intervention) Signs and symptoms of listed potential problems will be absent, minimized or managed by discharge/transition of care (reference Cardiac Cath/Percutaneous Coronary Intervention (Adult) CPG). Outcome: Ongoing (Interventions Implemented as Appropriate) 09/26/16224 Cardiac Cath/Percutaneous Coronary Intervention Problems Assessed (Cardiac Catheterization) all Problems Present (Cardiac Catheterization) none Plan of Care - Alice Sellers RN - 09/25/2016 6:19 PM EST Problem: Patient Care Overview Goal: Plan of Care Review Outcome: Ongoing (Interventions Implemented as Appropriate) OUTCOME EVALUATION NOTE: OUTCOME SUMMARY: Pt in SR, VS as documented, denies pain/SOB. R radial site c/d/i, no drainage, dressing intact, pulses intact. No acute concerns, pt NPO at midnight. Will continue to monitor. PLAN MOVING FORWARD: Diagnostic coronary angiogram plan for PCI tomorrow INDIVIDUALIZED FALL PREVENTION INTERVENTIONS: Patient-specific fall risk factors per assessment: [current deficits]: See doc flow Assistance [level of assistance required for transfers and ambulation]: Ind Supervision [direct monitoring required during toileting and ADLs]: Ind Surveillance [continuous indirect monitoring]: ICCU level of care Patient-specific fall prevention interventions for sensory deficits provided, if applicable: [X] No CPG GOAL OUTCOME EVALUATION: documented in this encounter Plan of Treatment Upcoming Encounters Date Type Specialty Care Team Description 03/25/2022 Anesthesia Event Surgery Catrachita Baez MD [facility] [place]HESIOLOGY [place] [address] (Wo rk) 12/15/2022 Office Visit Cardiology Damián Hart MD [facility] [address] [place] 0375 (Wo rk) 03/25/2050 Hospital Encounter Surgery Citlalli Richardson MD Vocal cord paralysis [facility] OTOLARY[facility]OLOGY [place] 0375 (Wo rk) Scheduled Referrals Name Type Priority Associated Diagnoses Order S chedule Referral to Outpatient Referral Routine S/P coronary artery O rdered: Cardiac Rehab stent placement 09/27/2016 documented as of this encounter Procedures Procedure Name Priority Date/Time Associated Diagnosis Comme nts MACHINE SETTER AUTOMATIC SCAN 09/28/2016 12:00 AM EST POCT GLUCOSE Routine 09/27/2016 8:22 Results for this AM EST procedure are i n the results section. EKG 12-LEAD Routine 09/27/2016 7:27 ASCVD Results for this AM EST (arteriosclerotic procedure are in cardiovascular the results disease) section. POCT GLUCOSE Routine 09/27/2016 4:19 Results for this AM EST procedure are i n the results section. POCT GLUCOSE Routine 09/27/2016 12:12 Results for this AM EST procedure are i n the results section. POCT GLUCOSE Routine 09/26/2016 8:22 Results for this PM EST procedure are i n the results section. POCT GLUCOSE Routine 09/26/2016 4:20 Results for this PM EST procedure are i n the results section. CARDIAC ENZYMES STAT 09/26/2016 2:08 Results f or this ([facility] PM EST procedure are i n the results section. POCT GLUCOSE Routine 09/26/2016 1:14 Results for this PM EST procedure are i n the results section. EKG 12-LEAD Routine 09/26/2016 11:03 ASCVD Results for this AM EST (arteriosclerotic procedure are in cardiovascular the results disease) section. POCT GLUCOSE Routine 09/26/2016 10:48 Results for this AM EST procedure are i n the results section. CARDIAC CATHETERIZATION Routine 09/26/2016 10:38 Results for this AM EST procedure are i n the results section. POCT GLUCOSE Routine 09/26/2016 7:55 Results for this AM EST procedure are i n the results section. HEMOGRAM Routine 09/26/2016 3:17 Results for this AM EST procedure are i n the results section. DIFFERENTIAL, AUTOMATED Routine 09/26/2016 3:17 R esults for this AM EST procedure are i n the results section. CARDIAC ENZYMES Routine 09/26/2016 3:17 Results f or this ([facility]) AM EST procedure are i n the results section. CBC (WITH DIFF) Routine 09/26/2016 3:17 AM EST BASIC METABOLIC PANEL Routine 09/26/2016 3:17 Res ults for this (NON-FASTING) AM EST procedure are in the results section. POCT GLUCOSE Routine 09/26/2016 12:07 Results for this AM EST procedure are i n the results section. CARDIAC ENZYMES STAT 09/25/2016 9:04 Results f or this ([facility]) PM EST procedure are i n the results section. POCT GLUCOSE Routine 09/25/2016 8:34 Results for this PM EST procedure are i n the results section. POCT GLUCOSE Routine 09/25/2016 5:04 Results for this PM EST procedure are i n the results section. EKG 12-LEAD STAT 09/25/2016 8:11 ASCVD Results for this AM EST (arteriosclerotic procedure are in cardiovascular the results disease) section. POCT GLUCOSE Routine 09/25/2016 6:43 Results for this AM EST procedure are i n the results section. documented in this encounter Results SCAN DOC: MACHINE SETTER AUTOMATIC (09/28/2016 12:00 AM EST) Narrative This result has an attachment that is no t available. Scanning Provider MEDIA MGR SCAN EXT ORDR/RSLT POCT Glucose (09/27/2016 8:22 AM EST) P athologist Signature POC Glucose 159 65 - 199 [facility] mg/dL [facility] Comment: Supplemental ranges: <140 mg/dL before meals <180 mg/dL all other times of the day Specimen Anatomical Collection Method Collection Time Receive d Time (Source) Location / / Volume Laterality Blood specimen 09/27/2016 8:22 AM 016 8:22 (specimen) EST AM EST Mariama Bravo MD POINT OF CARE TEST ORDERABLE S Performing Organization Address City/State/[place] [address] EKG 12 Lead (09/27/2016 7:27 AM EST) Component Value Ref Range Test Analysis Performed Pathologis t Method Time At Signature Ventricular rate 61 BPM MUSE SYSTEM Atrial Rate 61 BPM MUSE SYSTEM P-R Interval 210 ms MUSE SYSTEM QRS Duration 96 ms MUSE SYSTEM Q-T Interval 414 ms MUSE SYSTEM QTC Calculated 416 ms MUSE SYSTEM (Bezet) Calculated P Irvona 46 degrees MUSE SYSTEM Calculated R Irvona -18 degrees MUSE SYSTEM Calculated T Irvona -21 degrees MUSE SYSTEM INTERPRETATION Sinus rhythm with 1st degree A-V block MUSE SYSTEM Voltage criteria for left ventricular hypertrophy Inferior infarct (cited on or before 25-SEP-2016) When compared with ECG of 26-SEP-2016 11:03, No significant change was found Confirmed by MD Cuellar Douglas ([id number]) on 09/27/2016 8:25:24 A M Specimen Anatomical Collection Method Collection Time Receive d Time (Source) Location / / Volume Laterality 09/27/2016 7:27 AM 6 8:25 EST AM EST Mariama Bravo MD ECG ORDERABLES Performing Organization Address City/[facility]/ZIP Code Phon e Number MUSE SYSTEM POCT Glucose (09/27/2016 4:19 AM EST) athologist Signature POC Glucose 152 65 - 199 [facility] mg/dL [facility] Comment: Supplemental ranges: <140 mg/dL before meals <180 mg/dL all other times of the day Specimen Anatomical Collection Method Collection Time Receive d Time (Source) Location / / Volume Laterality Blood specimen 09/27/2016 4:19 AM 016 4:19 (specimen) EST AM EST Mariama Bravo MD POINT OF CARE TEST ORDERABLE S Performing Organization Address City/[facility]/[place] [address] POCT Glucose (09/27/2016 12:12 AM EST) P athologist Signature POC Glucose 131 65 - 199 [facility] mg[facility]dL [facility] Comment: Supplemental ranges: <140 mg/dL before meals <180 mg/dL all other times of the day Specimen Anatomical Collection Method Collection Time Receive d Time (Source) Location / / Volume Laterality Blood specimen 09/27/2016 12:12 6 (specimen) AM EST 12:12 AM EST Mariama Bravo MD POINT OF CARE TEST ORDERABLE S Performing Organization Address City/[facility]/[place] [address] POCT Glucose (09/26/2016 8:22 PM EST) athologist Signature POC Glucose 150 65 - 199 [facility] mg/dL [facility] Comment: Supplemental ranges: <140 mg/dL before meals <180 mg/dL all other times of the day Specimen Anatomical Collection Method Collection Time Receive d Time (Source) Location / / Volume Laterality Blood specimen 09/26/2016 8:22 PM 016 8:22 (specimen) EST PM EST Mariama Bravo MD POINT OF CARE TEST ORDERABLE S Performing Organization Address City/State/ZIP Code Phon e Number [address] POCT Glucose (09/26/2016 4:20 PM EST) athologist Signature POC Glucose 157 65 - 199 [facility] mg/dL [facility] Comment: Supplemental ranges: <140 mg/dL before meals <180 mg/dL all other times of the day Specimen Anatomical Collection Method Collection Time Receive d Time (Source) Location / / Volume Laterality Blood specimen 09/26/2016 4:20 PM 016 4:20 (specimen) EST PM EST Mariama Bravo MD POINT OF CARE TEST ORDERABLE S Performing Organization Address City/State/ZIP Code Phon e Number [address] Cardiac Enzymes (09/26/2016 2:08 PM EST) athologist Signature Troponin-T <0.03 <=0.03 [facility] ng/mL [facility] Comment: 0.03 ng/mL: Represents the [...] consensus document of the Joint Society of Cardiology/[employer] f [employer] Committee for the redefinition of myocardial infarction. ? ?Journal of the [employer] College [employer] 2000; 36: 959-969] CK, Total 134 0 - 200 unit/L [facility] Specimen Anatomical Collection Method Collection Time Receive d Time (Source) Location / / Volume Laterality Blood specimen 09/26/2016 2:08 PM 016 2:22 (specimen) EST PM EST Resulting Agency Comment Spec In Lab Mary Juárez MD CHEMISTRY ORDERABLES Performing Organization Address City/[facility]/ZIP Code Phon e Number [address] POCT Glucose (09/26/2016 1:14 PM EST) P athologist Signature POC Glucose 121 65 - 199 [facility] mg/dL [facility] Comment: Supplemental ranges: <140 mg/dL before meals <180 mg/dL all other times of the day Specimen Anatomical Collection Method Collection Time Receive d Time (Source) Location / / Volume Laterality Blood specimen 09/26/2016 1:14 PM 016 1:14 (specimen) EST PM EST Mariama Bravo MD POINT OF CARE TEST ORDERABLE S Performing Organization Address City/[facility]/[place] [address] EKG 12 Lead (09/26/2016 11:03 AM EST) Component Value Ref Range Test Analysis Performed Pathologis t Method Time At Signature Ventricular rate 55 BPM MUSE SYSTEM Atrial Rate 55 BPM MUSE SYSTEM P-R Interval 216 ms MUSE SYSTEM QRS Duration 102 ms MUSE SYSTEM Q-T Interval 440 ms MUSE SYSTEM QTC Calculated 420 ms MUSE SYSTEM (Bezet) Calculated P Irvona 45 degrees MUSE SYSTEM Calculated R Irvona -12 degrees MUSE SYSTEM Calculated T Irvona -12 degrees MUSE SYSTEM INTERPRETATION Sinus bradycardia with 1st degree A-V block MUSE SYSTEM Minimal voltage criteria for LVH, may be normal variant ST elevation, consider early repolarization, pericarditis, o r injury Inferior infarct (cited on or before 25-SEP-2016) Confirmed by MD Bridger, Silas ([id number]) on 09/26/2016 4:02:25 PM Specimen Anatomical Collection Method Collection Time Receive d Time (Source) Location / / Volume Laterality 09/26/2016 11:03 09/26/2016 4:02 AM EST PM EST Mariama Bravo MD ECG ORDERABLES Performing Organization Address City/State/ZIP Code Phon e Number MUSE SYSTEM POCT Glucose (09/26/2016 10:48 AM EST) athologist Signature POC Glucose 162 65 - 199 [facility] mg/dL [facility] Comment: Supplemental ranges: <140 mg/dL before meals <180 mg/dL all other times of the day Specimen Anatomical Collection Method Collection Time Receive d Time (Source) Location / / Volume Laterality Blood specimen 09/26/2016 10:48 6 (specimen) AM EST 10:48 AM EST Mariama Bravo MD POINT OF CARE TEST ORDERABLE S Performing Organization Address City/[facility]/[place] [address] CARDIAC CATHETERIZATION (09/26/2016 10:38 AM EST) Anatomical Region Laterality Modality Other Specimen (Source) Anatomical Location Collection Method / Collectio n Time Received Time / Laterality Volume Narrative 09/26/2016 1:13 PM EST ?[facility] ? Cardiac Cathete rization/Intervention Report ? Patient Name: Xu Gutiérrez, Burton Long. ? Procedure Date: 09/26/2016 ? A #: [id number] ? Primary Physician: Mariama Bravo ? Case #: [id number] ? File Name: [id number] ? Catheterization Order Number: [id number] ? [facility] ? Final Report [place], [place] ? Patient Name: ? Burton D. Gar field Jr ? ID#: ?[id number] ? : ?1955 ? Procedure Date: ? November 11, 20 16 ?Case #: ? [id number] ? Room: ? 6 ? Case Physicians: ?Richa Payne ? Start: ?08:36 ?Rigoberto Wyatt M.D. ? Admission: ??09/26/2016 ?Fellow: ? Tahmina marinelli M.D. ? Discharge: ??09/27/2016 ? Referring Physician: ??Fox Oakley ? Procedures: ?* Coronary Angiography ?* Coronary Atherectomy ?* Coronary Stent Insertion ?* Access Site Angiography ? History ?Burton Mcnair Jr is a 61 year old man. He has hypertension. The ?patient has hypercholesterolemi a. He has diabetes managed with oral ?medication. The patient also robertson s a history of an abnormal stress test. ?Prior to the initiation of this procedure, the patient was designated as ?ASA Class III. ? Patient Status at Catheterization: ?The patient presented with: sta ble angina (w/i 42 days). Spanish ?Cardiovascular Society angina c lass was II. This patient was on beta ?blockers prior to the procedure . No stress or imaging studies were ?performed prior to this procedu re ? Technique: ?A 7Fr sheath was inserted in th e right femoral artery utilizing the ?Seldinger technique. The right coronary artery was injected utilizing a ?7Fr AL-1 catheter. Coronary ath erectomy and coronary stent insertion were ?performed and the equipment uti lized will be described in the ?intervention summary section. 8 ,500 units of heparin were administered. A ?total of 200cc of Omnipaque wer e opened, 120cc of Omnipaque were ?administered and 80cc of Omnipa que were wasted. Radiation: Fluoro time ?was 39.4 minutes, dose area pro duct was 257,988 mGYcm2 and air kerma was ?2,474 mGY. ?The patient received the follow ing medications prior to and during the ?procedure: Aspirin (any), Ticag relor and Unfractionated Heparin (any). ? Hemodynamics: ?Left Heart Pressures ? Resting: ? Syst D iast ? EDP ?a ?v ? m ?Ao 164 ?? 79 ?112 ? Coronary Angiography: ?Dominance: Right ?Left Main ? This vessel was not inje cted. ?Left Anterior Descending ? This vessel was not inje cted. ?Left Circumflex ? This vessel was not inje cted. ?Right Coronary Artery ? There was a 95% single d iscrete stenosis of the proximal segment of ? the right coronary arter y (RCA). ??The RCA was large. ??The mid ? segment of the RCA had a single discrete 50% stenosis. ??Distal flow ? was decreased (LUIS CARLOS Grad e 2). ? Indication for Intervention: ?Coronary intervention was indic ated for treatment of stable angina, CCS ?Class II. Left Ventricular Ejec tion fraction was not assessed. The ?priority for the procedure was Elective. The NCDR indication for the ?procedure was Stable angina. ? Intervention Summary: ?Right Coronary Artery ? Proximal 95% ? Atherectomy and stent insertion were performed on the 95% ? stenosis in the proximal segment of the RCA. This was a de ? adryan lesion. Ac cording to the ACC/AHA classification system, ? this lesion was a type C high risk lesion. Primary prevention ? of restenosis w as the indication for stent insertion. This was ? the culprit les ion. Vessel flow pre intervention was LUIS CARLOS 2. ? Atherectomy was accomplished through a 7 Fr AL 1 guide. The ? lesion was pred ilated with a SPRINTER OTW 15 MM balloon with a ? maximum size of 1.50mm and a maximum inflation pressure of 14 ? atmospheres. Th e rotational atherectomy procedure was ? performed with a 1.25 mm Diamondback and five passes. A total ? of 1 vanita were used. ? Stent insertion was accomplished through a 7 Fr. AL 1 guide. ? The lesion was predilated with a 3.00mm NC EUPHORA 15 MM ? balloon with a maximum inflation pressure of 14 atmospheres. ? A premounted 3. 50 x 26 mm Resolute (KAROLYN) was deployed with a ? maximum inflati on pressure of 12 atmospheres. ??Following stent ? deployment, the lesion was dilated using a 4.00mm NC EUPHORA ? 15 MM balloon w ith a maximum inflation pressure of 18 ? atmospheres. ? The final outco me was defined as successful. The residual ? stenosis follow ing this intervention was 10%. The final LUIS CARLOS ? flow was 3. ? Pt was a planne d atherectomy guided PCI to a 95% heavily ? calcified proxi mal and mid RCA. ??Orbital atherectomy was ? performed using the CSI diamondback at low speed. ??6 passes ? were made to mo dify the lesion with good result. ? Vascular Access: ?Vascular Access Angiogram: ? A selective angiogram at the right femoral artery revealed mild ? diffuse disease. A closu re device is contraindicated due to the ? sheath insertion site lo cated at the bifurcation of this vessel. ?Vascular Access Management: ? Manual Compression of th e right femoral artery access site was ? performed. ? Conclusions: ?* Obstructive disease of the RC A ?* Successful atherectomy and st ent insertion of the proximal RCA lesion ? Complications/Events: ?The patient had no complication s during these procedures. ?The attending physician was presen t for the entire procedure. ?Dr. Mariama Bravo M.D. performed the coronary angiography, ?atherectomy-coronary, stent insert ion-coronary and access site angiography. ?Dr. Rigoberto Wyatt M.D. performed t he coronary angiography, ?atherectomy-coronary and stent ins ertion-coronary. ? Mariama Bravo M.D. ? Electronically Signed by: Fox Payne ? Report Finalized: 09/26/2016 ??12:57 ? Report Last Ammended: 01/05/2017 ??15:09 ? Procedure Note Mariama Bravo MD - 01/05/2017Formatting o f this note might be different from the original. [facility] Cardiac Catheterization/Intervention Re port Patient Name: Burton Mcnair Jr Procedure Date: 09/26/2016 A #: [id number] Primary Physician: Mariama Bravo Case #: [id number] File Name: [id number] Catheterization Order Number: [id number] [facility] Final Report [place], [place] Patient Name: Burton Mcnair Jr ID# : [id number] : 1955 Procedure Date: September 26, 2016 Case # : [id number] Room: 6 Case Physicians: Mariama Bravo M.D. Start: 08:36 Rigoberto Wyatt M.D. Admission: 6 Fellow: Tahmina Leone M.D. Discharge: 1 11/27/2015 Referring Physician: Librado Alvarado M.D. Procedures: * Coronary Angiography * Coronary Atherectomy * Coronary Stent Insertion * Access Site Angiography History Burton Mcnair Jr is a 61 year old man. He has hypertension. The patient has hypercholesterolemia. He robertson s diabetes managed with oral medication. The patient also has a hist ory of an abnormal stress test. Prior to the initiation of this procedu re, the patient was designated as ASA Class III. Patient Status at Catheterization: The patient presented with: stable yo na (w/i 42 days). Spanish Cardiovascular Society angina class was II. This patient was on beta blockers prior to the procedure. No str ess or imaging studies were performed prior to this procedure Technique: A 7Fr sheath was inserted in the right femoral artery utilizing the Seldinger technique. The right coronary artery was injected utilizing a 7Fr AL-1 catheter. Coronary atherectomy and coronary stent insertion were performed and the equipment utilized wi ll be described in the intervention summary section. 8,500 uni ts of heparin were administered. A total of 200cc of Omnipaque were opened , 120cc of Omnipaque were administered and 80cc of Omnipaque were wasted. Radiation: Fluoro time was 39.4 minutes, dose area product was 257,988 mGYcm2 and air kerma was 2,474 mGY. The patient received the following medi cations prior to and during the procedure: Aspirin (any), Ticagrelor an d Unfractionated Heparin (any). Hemodynamics: Left Heart Pressures Resting: Syst Diast EDP a v m Ao 164 79 112 Coronary Angiography: Dominance: Right Left Main This vessel was not injected. Left Anterior Descending This vessel was not injected. Left Circumflex This vessel was not injected. Right Coronary Artery There was a 95% single discrete stenosi s of the proximal segment of the right coronary artery (RCA). The RC A was large. The mid segment of the RCA had a single discret e 50% stenosis. Distal flow was decreased (LUIS CARLOS Grade 2). Indication for Intervention: Coronary intervention was indicated for treatment of stable angina, CCS Class II. Left Ventricular Ejection fra ction was not assessed. The priority for the procedure was Elective . [facility] indication for the procedure was Stable angina. Intervention Summary: Right Coronary Artery Proximal 95% Atherectomy and stent insertion were pe rformed on the 95% stenosis in the proximal segment of the RCA. This was a de adryan lesion. According to the ACC/AHA c lassification system, this lesion was a type C high risk lesi on. Primary prevention of restenosis was the indication for st ent insertion. This was the culprit lesion. Vessel flow pre int ervention was LUIS CARLOS 2. Atherectomy was accomplished through a 7 Fr AL 1 guide. The lesion was predilated with a SPRINTER O TW 15 MM balloon with a maximum size of 1.50mm and a maximum in flation pressure of 14 atmospheres. The rotational atherectomy procedure was performed with a 1.25 mm Diamondback an d five passes. A total of 1 vanita were used. Stent insertion was accomplished throug h a 7 Fr. AL 1 guide. The lesion was predilated with a 3.00mm NC EUPHORA 15 MM balloon with a maximum inflation pressu re of 14 atmospheres. A premounted 3.50 x 26 mm Resolute (KAROLYN ) was deployed with a maximum inflation pressure of 12 atmosp heres. Following stent deployment, the lesion was dilated usin g a 4.00mm NC EUPHORA 15 MM balloon with a maximum inflation pressure of 18 atmospheres. The final outcome was defined as succes sful. The residual stenosis following this intervention wa s 10%. The final LUIS CARLOS flow was 3. Pt was a planned atherectomy guided PCI to a 95% heavily calcified proximal and mid RCA. Orbital atherectomy was performed using the CSI diamondback at low speed. 6 passes were made to modify the lesion with goo d result. Vascular Access: Vascular Access Angiogram: A selective angiogram at the right femo ral artery revealed mild diffuse disease. A closure device is co ntraindicated due to the sheath insertion site located at the bi furcation of this vessel. Vascular Access Management: Manual Compression of the right femoral artery access site was performed. Conclusions: * Obstructive disease of the RCA * Successful atherectomy and stent inse rtion of the proximal RCA lesion Complications/Events: The patient had no complications during these procedures. The attending physician was present for the entire procedure. Dr. Mariama Bravo M.D. performed the jose l nary angiography, atherectomy-coronary, stent insertion-c oronary and access site angiography. Dr. Rigoberto Wyatt M.D. performed the co ronary angiography, atherectomy-coronary and stent insertio n-coronary. Mariama Bravo M.D. Electronically Signed by: Fox Payne Report Finalized: 09/26/2016 12:57 Report Last Ammended: 01/05/2017 15:09 Mariama Bravo MD CARDIAC CATH ORDERABLES POCT Glucose (09/26/2016 7:55 AM EST) athologist Signature POC Glucose 175 65 - 199 [facility] mg/dL [facility] Comment: Supplemental ranges: <140 mg/dL before meals <180 mg/dL all other times of the day Specimen Anatomical Collection Method Collection Time Receive d Time (Source) Location / / Volume Laterality Blood specimen 09/26/2016 7:55 AM 016 7:55 (specimen) EST AM EST Mariama Bravo MD POINT OF CARE TEST ORDERABLE S Performing Organization Address City/State/[place]IP [place] [address] Cardiac Enzymes (09/26/2016 3:17 AM EST) athologist Signature Troponin-T <0.03 <=0.03 [facility] ng/mL [facility] Comment: 0.03 ng/mL: Represents the [...] consensus document of the Joint Society of Cardiology/[employer] o f [employer] Committee for the redefinition of myocardial infarction. ? ?Journal of the [place] 2000; 36: 959-969] CK, Total 146 0 - 200 unit/L [facility] Specimen Anatomical Collection Method Collection Time Receive d Time (Source) Location / / Volume Laterality Blood specimen Venous Draw / 09/26/2016 3:17 AM 2015 3:42 (specimen) Unknown EST AM EST Resulting Agency Comment Spec In Lab Mariama Bravo MD CHEMISTRY ORDERABLES Performing Organization Address City/State/[place] [address] Differential, Automated (09/26/2016 3:17 AM EST) P athologist Signature Neutrophils % 60.8 % [facility] Neutr Abs (ANC) 2.79 1.70 - [facility] 6.10 [facility] x10(3)/[facility] LABORATORY Lymphocytes % 28.1 % [facility] Lymphocytes Abs 1.3 0.9 - 3.2 [facility] x10(3)/[facility] LABORATORY Monocytes % 8.9 % [facility] Monocyte Abs 0.4 0.3 - 0.9 [facility] x10(3)[facility] LABORATORY Eosinophils % 1.3 % [facility] Eosinophils Abs 0.1 0.0 - 0.4 [facility] x10(3)[facility] LABORATORY Basophils % 0.7 % [facility] Basophils Abs 0.0 0.0 - 0.1 [facility] x10(3)/[facility] LABORATORY Immature Gran % 0.20 % [facility] Comment: Immature granulocytes(IG's)percentage an d absolute count will include metamyelocytes, myelocytes, and promyelo cytes. Blood smears from CBCs yielding IG's will be scanned manually for concor dance. If this scan disagrees with the automated IG or if promyelocytes are not ed, a manual differential will be performed. Nikole Gran Abs 0.01 0.00 - 0.04 x10(3)/[facility] Specimen Anatomical Collection Method Collection Time Receive d Time (Source) Location / / Volume Laterality Blood specimen 09/26/2016 3:17 AM 016 3:42 (specimen) EST AM EST Resulting Agency Comment Spec In Lab Mariama Bravo MD HEMATOLOGY ORDERABLES Performing Organization Address City/State/ZIP Code Phon e Number [place] [id number] (ABNORMAL) Hemogram (09/26/2016 3:17 AM EST) Analysis Performed At Patho logist Time Signature WBC 4.6 4.0 - 9.5 [facility] x10(3)/[facility] LABORATORY RBC 3.97 (L) 4.58 - [facility] x10(6)/[facility] LABORATORY Hemoglobin 12.5 (L) 13.7 - [facility] gm/dL [facility] Hematocrit 35.3 (L) 40.5 - [facility] 48.5 % [facility] MCV 88.9 82.9 - [facility] 93.1 [facility] LABORATORY MCH 31.5 27.5 - [facility] 32.1 pg [facility] MCHC 35.4 32.0 - [facility] gm/dL [facility] Platelets 115 (L) 145 - 357 [facility] x10(3)/[facility] LABORATORY RDWSD 37.6 36.0 - [facility] 45.0 [facility] LABORATORY RDWCV 11.7 11.4 - [facility] 13.8 % [facility] MPV 9.6 7.6 - 12.9 [facility] LABORATORY nRBC % Auto 0.0 % [facility] nRBC Abs Auto 0.000 0.000 - [facility] 0.000 [facility] x10(3)/[facility] LABORATORY Specimen Anatomical Collection Method Collection Time Receive d Time (Source) Location / / Volume Laterality Blood specimen 09/26/2016 3:17 AM 016 3:42 (specimen) EST AM EST Resulting Agency Comment Spec In Lab Mariama Bravo MD HEMATOLOGY ORDERABLES Performing Organization Address City/State/ZIP [place] [address] (ABNORMAL) Basic Metabolic Panel (non-fasting) (09/26/2016 3:17 AM EST) athologist Signature Glucose Lvl 145 65 - 199 [facility] mg/dL [facility] Comment: Diabetes: >=200 mg/dL plus symp toms BUN 14 10 - 20 mg/dL [facility] Creatinine 0.79 (L) 0.80 - 1.50 mg/dL [facility] Comment: Please note that the pediatric reference intervals supplied above were not validated at [facility]. Results from pediatri c patients should be interpreted in conjunction to the patient's age, height and muscle mass. Sodium 141 135 - 145 mmol/L [facility] Potassium 4.1 3.5 - 5.0 mmol/L [facility] Comment: Please note: ??Patients with WBC >100,00 0 may have falsely elevated Potassium levels. ??For accurate Potassium quantif ication in these patients send serum separator tube (gold top) for subsequent determinations. ??Contact the Clinical Chemistry Laboratory if there are any qu estions. Chloride 103 98 - 107 mmol/L [facility] CO2 24 22 - 31 mmol/L [facility] Anion Gap 14 5 - 15 mmol/L [facility] Calcium 8.5 8.5 - 10.5 mg/dL [facility] Estimated GFR >60 >=60 [facility] Comment: This estimated GFR (eGFR) [...] the following links into your internet browser. [email or web address] Specimen Anatomical Collection Method Collection Time Receive d Time (Source) Location / / Volume Laterality Blood specimen 09/26/2016 3:17 AM 016 3:42 (specimen) EST AM EST Resulting Agency Comment Spec In Lab Mariama Bravo MD CHEMISTRY ORDERABLES Performing Organization Address City/[facility]/ZIP Code Phon e Number [address] POCT Glucose (09/26/2016 12:07 AM EST) P athologist Signature POC Glucose 135 65 - 199 [facility] mg/dL [facility] Comment: Supplemental ranges: <140 mg/dL before meals <180 mg/dL all other times of the day Specimen Anatomical Collection Method Collection Time Receive d Time (Source) Location / / Volume Laterality Blood specimen 09/26/2016 12:07 6 (specimen) AM EST 12:07 AM EST Mariama Bravo MD POINT OF CARE TEST ORDERABLE S Performing Organization Address City/[facility]/ZIP [facility] [place] [address] Cardiac Enzymes (09/25/2016 9:04 PM EST) P athologist Signature Troponin-T <0.03 <=0.03 [facility] ng/mL [facility] Comment: 0.03 ng/mL: Represents the [...] consensus document of the Joint Society of Cardiology/[employer] o f [employer] Committee for the redefinition of myocardial infarction. ? ?Journal of the [employer] 2000; 36: 959-969] CK, Total 183 0 - 200 unit/L [facility] Specimen Anatomical Collection Method Collection Time Receive d Time (Source) Location / / Volume Laterality Blood specimen 09/25/2016 9:04 PM 016 9:15 (specimen) EST PM EST Resulting Agency Comment Spec In Lab Mary Juárez MD CHEMISTRY ORDERABLES Performing Organization Address City/[facility] Phon e Number [address] POCT Glucose (09/25/2016 8:34 PM EST) athologist Signature POC Glucose 97 65 - 199 [facility]/dL [facility] Comment: Supplemental ranges: <140 mg/dL before meals <180 mg/dL all other times of the day Specimen Anatomical Collection Method Collection Time Receive d Time (Source) Location / / Volume Laterality Blood specimen 09/25/2016 8:34 PM 016 8:34 (specimen) EST PM EST Mariama Bravo MD POINT OF CARE TEST ORDERABLE S Performing Organization Address City/[facility] Phon e Number [address] POCT Glucose (09/25/2016 5:04 PM EST) athologist Signature POC Glucose 182 65 - 199 [facility] mg/dL [facility] Comment: Supplemental ranges: <140 mg/dL before meals <180 mg/dL all other times of the day Specimen Anatomical Collection Method Collection Time Receive d Time (Source) Location / / Volume Laterality Blood specimen 09/25/2016 5:04 PM 016 5:04 (specimen) EST PM EST Mariama Bravo MD POINT OF CARE TEST ORDERABLE S Performing Organization Address [facility] [place] [address] EKG 12 Lead (09/25/2016 8:11 AM EST) Component Value Ref Range Test Analysis Performed Pathologis t Method Time At Signature Ventricular rate 58 BPM MUSE SYSTEM Atrial Rate 58 BPM MUSE SYSTEM P-R Interval 198 ms MUSE SYSTEM QRS Duration 86 ms MUSE SYSTEM Q-T Interval 428 ms MUSE SYSTEM QTC Calculated 420 ms MUSE SYSTEM (Bezet) Calculated P [place] 51 degrees MUSE SYSTEM Calculated R [place] -14 degrees MUSE SYSTEM Calculated T [place] -20 degrees MUSE SYSTEM INTERPRETATION Sinus bradycardia MUSE SY STEM Voltage criteria for left ventricular hypertrophy Inferior infarct , age undetermined Abnormal ECG No previous ECGs available Confirmed by MD Juan F, Hari ([id number]) on 09/25/2016 4:43:0 1 PM Specimen Anatomical Collection Method Collection Time Receive d Time (Source) Location / / Volume Laterality 09/25/2016 8:11 AM 6 4:43 EST PM EST Mariama Bravo MD ECG ORDERABLES Performing Organization Address City/[facility]/ZIP Code Phon e Number MUSE SYSTEM POCT Glucose (09/25/2016 6:43 AM EST) P athologist Signature POC Glucose 154 65 - 199 [facility] mg/dL [facility] Comment: Supplemental ranges: <140 mg/dL before meals <180 mg/dL all other times of the day Specimen Anatomical Collection Method Collection Time Receive d Time (Source) Location / / Volume Laterality Blood specimen 09/25/2016 6:43 AM 016 6:43 (specimen) EST AM EST Mariama Bravo MD POINT OF CARE TEST ORDERABLE S Performing Organization Address City/[facility]/ZIP [facility] [place] [address] documented in this encounter Visit Diagnoses Diagnosis ASCVD (arteriosclerotic cardiovascular d isease) Unspecified cardiovascular disease S/P coronary artery stent placement Postsurgical percutaneous transluminal c oronary angioplasty status Vocal cord paralysis Paralysis of vocal cords or larynx, unsp ecified documented in this encounter Administered Medications Inactive Administered Medications - up to 3 most recent administrations Medication Order MAR Action Action Date Dose Rate Site acetaminophen (TYLENOL) tablet 650 mg 650 mg, Oral, EVERY 4 HOURS PRN, Starting on Myrna 09/25 at 0916, Until 09/27/16 at 1428, Pain, Headaches, Maxim um dose of acetaminophen is 4000 mg from all sources in 24 hours., Routine aspirin EC tablet 81 mg Given 09/27/2016 8:57 AM EST 81 mg 81 mg, Oral, DAILY, First dose on Thu09/26/16 at 0900, Until Discontinued, Routine Given 09/26/2016 8:03 AM EST 81 mg atorvastatin (LIPITOR) tablet 80 mg Given 09/26/2016 4:30 PM EST 80 mg 80 mg, Oral, EVERY EVENING, First dose on Thu09/26/16 at 1700, Until Discontinued, Routine dextrose 50% injection 25-50 mL 25-50 mL (12.5-25 g), Intravenous, EVERY 1 HOUR PRN, Starting on Myrna 09/25/16 at 0917, Until 09/27/16 at 1428, Low bl ood sugar, For BG 50-70: 120 mL Juice [...] the duration of the active insulin., Routine glucagon (human recombinant) injection 1 mg 1 mg, Intramuscular, EVERY 1 HOUR PRN, L ow blood sugar, Starting on Myrna 09/25/16 at 0917, Until 09/27/16 at 1428, For BG 50-70: 120 mL Juice or [...] for the duration of the active insulin. heparin (porcine) subcutaneous injection Given 6:00 AM EST 5,000 Units 5,000 Units 5,000 Units, Subcutaneous, EVERY 8 HOURS SCHEDULED, First dose on [facility] 09/25/16 at 1600, Until Discontinued, Routine Given 09/26/2016 10:00 PM EST 5,000 Units Given 09/26/2016 6:19 AM EST 5,000 Units insulin lispro (humaLOG) VIAL injection 1-4 Given 09/16 4:30 PM EST 1 Units Units 1-4 Units, Subcutaneous, 3 TIMES DAILY BEFORE MEALS, First dose on Myrna 09/25/16 at 1130, Until Discontinued, CORRECTION BOLUS Sensitive to insulin [...] insulin and resume prior schedule., Routine Given 09/25/2016 4:30 PM EST 2 Units insulin lispro (humaLOG) VIAL injection 1-4 Given 09/16 9:05 AM EST 1 Units Units 1-4 Units, Subcutaneous, EVERY 4 HOURS SCHEDULED, First dose on [facility] 09/25/16 at 0945, Until Discontinued, CORRECTION BOLUS Sensitive to insulin [...] insulin and resume prior schedule., Routine Given 09/27/2016 4:00 AM EST 1 Units Given 09/26/2016 8:00 PM EST 1 Units lidocaine (XYLOCAINE) 10 mg/mL (1 %) inj ection 3 mg 3 mg (0.3 mL), Subcutaneous, ONCE PRN, 1 dose, Starting on Myrna 09/25/16 at 0704, Until 09/27/16 at 1428, with discomfort with PIV i nsertion, Routine lidocaine (XYLOCAINE) 10 mg/mL (1 %) inj ection 3 mg 3 mg (0.3 mL), Subcutaneous, ONCE PRN, 1 dose, Starting on Myrna 09/25/16 at 0914, Until 09/27/16 at 1428, for discomfort with PIV in sertion, Routine lisinopril (PRINIVIL;ZESTRIL) tablet 40 mg Given 09/27/2016 8:57 AM EST 40 mg 40 mg, Oral, DAILY, First dose (after last modification) on Thu09/26/16 at 0900, Until Discontinued, Routine Given 09/26/2016 1:50 PM EST 40 mg meTOPROLOL succinate (TOPROL-XL) XL tablet 50 Given 8:57 AM EST 50 mg mg 50 mg, Oral, DAILY, First dose on Thu09/26/16 at 0900, Until Discontinued, DO NOT CRUSH OR OPEN, Routine Given 09/26/2016 8:03 AM EST 50 mg nitroGLYcerin (NITROSTAT) SL tablet 0.4 mg 0.4 mg, Sublingual, EVERY 5 MIN PRN, Sta rting on Myrna 09/25/16 at 0914, Until 09/27/16 at 1428, Chest pain, May repeat every 5 minut es for a total of three doses. Notify provider if chest pain not relieved with nitroglycerin. Do not administer nitroglycerin if the patinet has received o r taken phosphodiesterase (PDE-5) inhibitors such as sildenafil, t adalafil or vardenafil within the last 24 to 72 hours., Routine simvastatin (ZOCOR) tablet 40 mg Given 09/25/2016 8:39 PM EST 40 mg 40 mg, Oral, NIGHTLY, First dose on Myrna 09/25/16 at 2100, Until Discontinued, Routine sodium chloride 0.9 % flush 5 mL Given 09/27/2016 9:04 AM EST 5 mLs 5 mL, Intravenous, 2 TIMES DAILY, First dose on Myrna 09/25/16 at 0945, Until Discontinued, Routine Given 09/26/2016 8:04 AM EST 5 mLs Given 09/25/2016 8:41 PM EST 5 mLs sodium chloride 0.9 % flush 5-20 mL 5-20 mL, Intravenous, EVERY 1 MIN PRN, S tarting on Myrna 09/25/16 at 0914, Until 09/27/16 at 1428, flush, Flush pertains to all indwelling lines. Flush per protocol found in the job aid using the link prov ided on this medication record., Routine sodium chloride 0.9% infusion Continued Bag 09/25/2016 9:45 AM 100 mL/hr 100 mL/hr 100 mL/hr, Intravenous, EST CONTINUOUS, Starting on Myrna 09/25/16 at 0945, Until Myrna 09/25/16 at 1344, Recovery (Recovery-Hospital Unit) sodium chloride 0.9% infusion New Bag 09/26/2016 10:50 AM EST 100 mL/hr 100 mL/hr 100 mL/hr, Intravenous, CONTINUOUS, Starting on Thu09/26/16 at 1115, Until Thu09/26/16 at 1514, Recovery (Recovery-Hospital Unit) ticagrelor (BRILINTA) tablet 90 mg Given 09/27/2016 8:58 AM EST 90 mg 90 mg, Oral, 2 TIMES DAILY, First dose on Thu09/26/16 at 2100, Until Discontinued, After initial loading dose of aspirin (usually 325 mg), use ticagrelor with daily maintenance dose of aspirin of 81 mg , Routine Given 09/26/2016 9:00 PM EST 90 mg zolpidem (AMBIEN) tablet 5 mg Given 09/25/2016 10:24 PM EST 5 mg 5 mg, Oral, ONCE, 1 dose, On Myrna 11/10/16 at 2045, Routine zolpidem (AMBIEN) tablet 5 mg Given 09/26/2016 9:37 PM EST 5 mg 5 mg, Oral, NIGHTLY PRN, Starting on Thu09/26/16 at 2115, Until 09/27/16 at 1428, Sleep, Routine documented in this encounter Active and Recently Administered Medications Times are shown in EST. Scheduled Medication Order 09/25/2016 09/26/2016 09/27/2016 aspirin EC tablet 81 mg 0803 (Given - Pr ovider: Pili Enriquez RN)0843 (JAN Hold - Provider: Admin Adt - Reason: Transfer to a Procedural area)1307 (JAN Unhold - Provider: Admin Adt) 0857 (Given - Provider: Macey Phelps RN) 81 mg, Oral, DAILY, First dose on Thu at 0900, Until Discontinued, Routine atorvastatin (LIPITOR) tablet 80 mg 1630 (Given - Provider: Pili Enriquez RN) 80 mg, Oral, EVERY EVENING, First dose o n Thu09/26/16 at 1700, Until Discontinued, Routine heparin (porcine) subcutaneous injection 5,000 Units 1 600 (Given - Provider: Alice Sellers RN)2224 (Given - Provider: Azra Roberts, ESTEFANIA) 0619 (Given - Provider: Azra Roberts RN)0843 (JAN Hold - Provider: Admin Adt - Reason: Transfer to a Procedural area)1307 (JAN Unhold - Provider: Admin Adt) 0600 (Given - Provider: Alice Sellers RN) 5,000 Units, Subcutaneous, EVERY 8 HOURS SCHEDULED, First dose on Thu09/25/16 at 1600, Until Discontinued, Routine 1400 (Not Given - Provider: Pili Enriquez RN - Reason: See comment - Comment: Interventionalist stated patient did not need via MD Bravo.)2200 (Given - Provider: Alice Sellers RN) insulin lispro (humaLOG) VIAL injection 1-4 Units(Link ed Group 1) 1130 (Not Given - Provider: Alice Sellers RN - Reason: NPO)1630 (Given - Provider: Alice Sellers RN) 0730 (Not Given - Provider: Pili long RN - Reason: NPO)0843 (MAR Hold - Provider: Admin Adt - Reason: Transfer to a Procedural area)1130 (Automatically Held - Provider: Admin Adt)1307 (MAR Unhold - Provider: Admin Adt) 0730 (Not Given - Provider: Macey brito RN - Reason: See comment - Comment: see alternate order)1130 (Due - Provider: Admin Adt) 1-4 Units, Subcutaneous, 3 TIMES DAILY B EFORE MEALS, First dose on Myrna 09/25/16 at 1130, Until Discontinued, CORRECTION BOLUS Sensitive to insulin lean patient or total daily dose of all insulin nee 1630 (G iven - Provider: Pili Enriquez RN) ded to achieve glycemic control less jignesh n 30 units BG 140 - 160 Give 1 unit BG 161 - 200 Give 2 units BG 201 - 240 Give 3 units BG greater than 240, give 4 units and recheck BG in 2 hours. If BG remains greater than 240, repeat 4 units (no mo re than three times) & call for new basal insulin orders. If less than 240 after two hours, give no insulin and resume prior schedule., Routine insulin lispro (humaLOG) VIAL injection 1-4 Units(Link ed Group 2) 0945 (Not Given - Provider: Alice Sellers RN - Reason: Contraindicated)1200 (Not Given - Provider: Alice Sellers RN - Reason: NPO)1600 (Given - Provider: Alice Sellers RN) 0017 (Not Given - Provider: Azra duarte RN - Reason: Order parameters not met)0400 (Not Given - Provider: Azra Roberts RN - Reason: NPO - Comment: FS 145, pt NPO)0804 (Given - Provider: Pili Enriquez RN) 0000 (Not Given - Provider: Alice draper RN - Reason: Contraindicated)0400 (Given - Provider: Alice Sellers RN)0905 (Given - Provider: Macey Phelps RN)1200 (Due - Provider: Admin Adt) 1-4 Units, Subcutaneous, EVERY 4 HOURS S CHEDULED, First dose on Myrna 09/25/16 at 0945, Until Discontinued, CORRECTION BOLUS Sensitive to insulin lean patient or total daily dose of all insulin needed 2037 (Not Given - Provider: Azra Roberts RN - Reason: Order parameters not met) 0843 (JAN Hold - Provider: Admin Adt - Reason: Transfer to a Procedural area)1200 (Automatically Held - Provider: Admin Adt)1307 (MAR Unhold - Provider: Admin Adt) to achieve glycemic control less than 3 0 units BG 140 - 160 Give 1 unit BG 161 - 200 Give 2 units BG 201 - 240 Give 3 units BG greater than 240, give 4 units and recheck BG in 2 hours. If BG remains gr 1328 (Not Given - Provider: Pili Enriquez RN - Reason: Order parameters not met - Comment: BS 121)1631 (Given - Provider: Pili Enriquez RN)2000 (Given - Provider: Alice Sellers RN) eater than 240, repeat 4 units (no more than three times) & call for new basal insulin orders. If less than 240 after two hours, give no insulin and resume prior schedule., Routine lisinopril (PRINIVIL;ZESTRIL) tablet 40 mg 0843 (JAN Hold - Provider: Admin Adt - Reason: Transfer to a Procedural area)0900 (Automatically Held - Provider: Admin Adt)1307 (JAN Unhold - Provider: Admin Adt)1350 (Given - Provider: Pili Enriquez RN) 0857 (Given - Provider: Macey Phelps, ESTEFANIA) 40 mg, Oral, DAILY, First dose on Thu at 0900, Until Discontinued, Routine meTOPROLOL succinate (TOPROL-XL) XL tablet 50 mg 0803 (Given - Provider: Pili Enriquez RN)0843 (JAN Hold - Provider: Admin Adt - Reason: Transfer to a Procedural area)1307 (JAN Unhold - Provider: Admin Adt) 0857 (Given - Provider: Macey Phelps, ESTEFANIA) 50 mg, Oral, DAILY, First dose on Thu at 0900, Until Discontinued, DO NOT CRUSH OR OPEN, Routine simvastatin (ZOCOR) tablet 40 mg (CANCELED) 2038 (Give n - Provider: Azra Roberts RN) 0843 (JAN Hold - Provider: Admin Adt - R theresa: Transfer to a Procedural area)1055 (JAN Unhold - Provider: Admin Adt) 40 mg, Oral, NIGHTLY, First dose on Myrna 09/25/16 at 2100, Until Discontinued, Routine sodium chloride 0.9 % flush 5 mL 0945 (Not Given - Pro vider: Alice Sellers RN - Reason: Contraindicated)204 (Given - Provider: Azra Roberts RN) 0804 (Given - Provider: Pili Enriquez RN)0843 (JAN Hold - Provider: Admin Adt - Reason: Transfer to a Procedural area)1307 (JAN Unhold - Provider: Admin Adt)2100 (Not Given - Provider: Alice Sellers RN - Reason: Contraindicated) 0904 (Given - Provider: Macey Phelps, ESTEFANIA) 5 mL, Intravenous, 2 TIMES DAILY, First dose on Myrna 09/25/16 at 0945, Until Discontinued, Routine ticagrelor (BRILINTA) tablet 90 mg 2100 (Given - Provider: Alice Sellers RN) 0858 (Given - Provider: Maecy Phelps RN) 90 mg, Oral, 2 TIMES DAILY, First dose o n Thu09/26/16 at 2100, Until Discontinued, After initial loading dose of aspirin (usually 325 mg), use ticagrelor with daily maintenance dose of aspirin of 81 mg , Routine zolpidem (AMBIEN) tablet 5 mg (COMPLETED) 2223 (Given - Provider: Azra Roberts RN) 5 mg, Oral, ONCE, 1 dose, Myrna 09/25/16 at 2045, Routine Continuous Medication Order 09/25/2016 09/26/2016 09/27/2016 sodium chloride 0.9% infusion () 0945 (Continue d Bag - Provider: Shala Blake RN) 100 mL/hr, at 100 mL/hr, Intravenous, CO NTINUOUS, Starting Myrna 09/25/16 at 0945, Until Myrna 09/25/16 at 1344, Recovery (Recovery-Hospital Unit) sodium chloride 0.9% infusion 1050 (New Bag - Provider: Azra Fan RN) 100 mL/hr, at 100 mL/hr, Intravenous, CO NTINUOUS, Starting 09/26/16 at 1115, Until 09/26/16 at 1514, Recovery (Recovery-Hospital Unit) PRN Medication Order 09/25/2016 09/26/2016 09/27/2016 acetaminophen (TYLENOL) tablet 650 mg 08 43 (JAN Hold - Provider: Admin Adt - Reason: Transfer to a Procedural area)1307 (JAN Unhold - Provider: Admin Adt) 650 mg, Oral, EVERY 4 HOURS PRN, Startin g Myrna 09/25/16 at 0916, Until 09/27/16 at 1428, Pain, Headaches, Maximum dose of acetaminophen is 4000 mg from all sources in 24 hours., Routine aspirin chewable tablet (CANCELED) 0821 (Given - Provi connie: Slime Borges RN) ONCE PRN, Starting Myrna 09/25/16 at 0821, Until Myrna 09/25/16 at 1502, Cath (Intra-Procedure), Routine dextrose 50% injection 25-50 mL(Linked Group 3) 0843 (JAN Hold - Provider: Admin Adt - Reason: Transfer to a Procedural area)1307 ([facility] Unhold - Provider: Admin Adt) 25-50 mL (12.5-25 g), Intravenous, EVERY 1 HOUR PRN, Starting Myrna 09/25/16 at 0917, Until 09/27/16 at 1428, Low blood sugar, For BG 50-70: 120 mL Juice or Regular (not diet) soda OR 12.5 gram (25 mL) Dextrose 50% IV OR, if no IV access, 1 mg Glucagon IM. Recheck BG in 30 minutes. May repeat juice, dextrose or glucagon once per episode For BG less than 50: 240 mL Juice or Regular (not diet) s jr OR 25 grams (50 mL) Dextrose 50% IV OR, if no IV access, 1 mg Glucagon IM. Recheck BG in 30 minutes. May repeat juice, dextrose, or glucagon once per episode. To avoid extravasation, push Dextro se 50% SLOWLY (3 mL over 1 minute) in a patent, running IV, preferably a central line. For persistent hypoglycemia, consider longer-acting treatment for the duration of the active insulin., Routine fentaNYL 50 mcg/mL multi-dose injection (CANCELED) 082 1 (Given - Provider: Slime Borges RN)0847 (Given - Provider: Slime Borges RN) ONCE PRN, Starting Myrna 09/25/16 at 0821, Until Myrna 09/25/16 at 1502, Cath (Intra-Procedure), Routine fentaNYL 50 mcg/mL multi-dose injection (CANCELED) 0840 (Given - Provider: Jayda Villeda)0854 (Given - Provider: Johnathon Lora) ONCE PRN, Starting 09/26/16 at 0854, Until 09/26/16 at 1137, Cath (Intra-Procedure), Routine glucagon (human recombinant) injection 1 mg(Linked Group 3) 0843 (JAN Hold - Provider: Admin Adt - Reason: Transfer to a Procedural area)1307 (JAN Unhold - Provider: Admin Adt) 1 mg, Intramuscular, EVERY 1 HOUR PRN, S tarting Myrna 09/25/16 at 0917, Until 09/27/16 at 1428, Low blood sugar, For BG 50-70: 120 mL Juice or Regular (not diet) soda OR 12.5 gram (25 mL) Dextrose 5 0% IV OR, if no IV access, 1 mg Glucagon IM. Recheck BG in 30 minutes. May repeat juice, dextrose or glucagon once per episode For BG less than 50: 240 mL Juice or Regular (not diet) soda OR 25 gram s (50 mL) Dextrose 50% IV OR, if no IV a ccess, 1 mg Glucagon IM. Recheck BG in 30 minutes. May repeat juice, dextrose, or glucagon once per episode. To avoid extravasation, push Dextrose 50% SLOWLY (3 mL over 1 minute) in a patent, runnin g IV, preferably a central line. For persistent hypoglycemia, consider longer-acting treatment for the duration of the active insulin. , Routine heparin (porcine) injection (CANCELED) 0831 (Given - P rovider: Slime Borges RN) ONCE PRN, Starting Myrna 09/25/16 at 0831, Until Myrna 09/25/16 at 1502, Cath (Intra-Procedure), Routine heparin (porcine) injection (CANCELED) 0 844 (Given - Provider: Johnathon Lora)0933 (Given - Provider: Jayda Villeda) ONCE PRN, Starting Thu09/26/16 at 0844, Until Thu09/26/16 at 1137, Cath (Intra-Procedure), Routine iohexol (OMNIPAQUE) 350 mg/mL solution (CANCELED) 0910 (Given - Provider: Mariama Bravo MD) ONCE PRN, Starting Myrna 09/25/16 at 0910, Until Myrna 09/25/16 at 1502, Cath (Intra-Procedure), Routine iohexol (OMNIPAQUE) 350 mg/mL solution (CANCELED) 1030 (Given - Provider: Mariama Bravo MD) ONCE PRN, Starting Thu09/26/16 at 1030, Until Thu09/26/16 at 1137, Cath (Intra-Procedure), Routine lidocaine (XYLOCAINE) 10 mg/mL (1 %) injection 3 mg 0843 (JAN Hold - Provider: Admin Adt - Reason: Transfer to a Procedural area)1307 ([facility] Unhold - Provider: Admin Adt) 3 mg (0.3 mL), Subcutaneous, ONCE PRN, 1 dose, Starting Thu09/25/16 at 0704, Until 09/27/16 at 1428, with discomfort with PIV insertion, Routine lidocaine (XYLOCAINE) 10 mg/mL (1 %) injection 3 mg 0843 (JAN Hold - Provider: Admin Adt - Reason: Transfer to a Procedural area)1307 ([facility] Unhold - Provider: Admin Adt) 3 mg (0.3 mL), Subcutaneous, ONCE PRN, 1 dose, Starting Myrna 09/25/16 at 0914, Until 09/27/16 at 1428, for discomfort with PIV insertion, Routine midazolam (PF) (VERSED) 1 mg/mL multi-dose injection ( CANCELED) 0821 (Given - Provider: Slime Borges, ESTEFANIA)0847 (Given - Provider: Slime Borges, ESTEFANIA) ONCE PRN, Starting Myrna 09/25/16 at 0821, Until Myrna 09/25/16 at 1502, Cath (Intra-Procedure), Routine midazolam (PF) (VERSED) 1 mg/mL multi-dose injection (CANCEL ED) 0840 (Given - Provider: Jayda Villeda)0854 (Given - Provider: Johnathon Lora) ONCE PRN, Starting Thu09/26/16 at 0854, Until Thu09/26/16 at 1137, Cath (Intra-Procedure), Routine nitroGLYcerin (NITROSTAT) SL tablet 0.4 mg 0843 (JAN Hold - Provider: Admin Adt - Reason: Transfer to a Procedural area)1307 ([facility]AN Unhold - Provider: Admin Adt) 0.4 mg, Sublingual, EVERY 5 MIN PRN, Sta rting Myrna 09/25/16 at 0914, Until 09/27/16 at 1428, Chest pain, May repeat every 5 minutes for a total of three doses. Notify provider if chest pain not relie bernardo with nitroglycerin. Do not administe r nitroglycerin if the patinet has received or taken phosphodiesterase (PDE-5) inhibitors such as sildenafil, tadalafil or vardenafil within the last 24 to 72 hours., Routine nitroGLYcerin 100 mcg/mL intracoronary dilution (CANCE LED) 0829 (Given - Provider: Mariama Bravo MD) ONCE PRN, Starting Myrna 09/25/16 at 0829, Until Myrna 09/25/16 at 1502, Cath (Intra-Procedure), Routine nitroGLYcerin 100 mcg/mL intracoronary dilution (CANCELED) 1016 (Given - Provider: Stan Borges RN) ONCE PRN, Starting Thu09/26/16 at 1016, Until Thu09/26/16 at 1137, Cath (Intra-Procedure), Routine sodium chloride 0.9 % flush 5-20 mL 0843 (JAN Hold - Provider: Admin Adt - Reason: Transfer to a Procedural area)1307 ([facility] Unhold - Provider: Admin Adt) 5-20 mL, Intravenous, EVERY 1 MIN PRN, S tarting Myrna 09/25/16 at 0914, Until 09/27/16 at 1428, flush, Flush pertains to all indwelling lines. Flush per protocol found in the job aid using the link provided on this medication record., Routine sodium chloride 0.9% infusion (CANCELED) 0835 (New Bag - Provider: Slime Borges, RN) CONTINUOUS PRN, Starting Myrna 09/25/16 at 0835, Until Myrna 09/25/16 at 1502, Cath (Intra-Procedure) ticagrelor (BRILINTA) tablet (CANCELED) 0847 (Given - Provider: Slime Borges, ESTEFANIA) ONCE PRN, Starting Thu09/25/16 at 0847, Until Thu09/25/16 at 1502, Cath (Intra-Procedure), Routine ticagrelor (BRILINTA) tablet (CANCELED) 0830 (Given - Provider: Stan Borges RN) ONCE PRN, Starting Thu09/26/16 at 0830, Until Thu09/26/16 at 1137, Cath (Intra-Procedure), Routine zolpidem (AMBIEN) tablet 5 mg 2136 (Given - Prov ider: Alice Sellers RN) 5 mg, Oral, NIGHTLY PRN, Starting Thu at 2115, Until Thu09/27/16 at 1428, Sleep, Routine Linked Groups Order Group 1: POCT Fingerstick Glucose (CANCELED) Routine, 4 TIMES DAILY BEFORE MEALS & AT BEDTIME, First occurrence on Thu09/25/16 at 1100, Until Specified
Consider choosing FOUR TIMES A DAY BEFORE MEALS AND AT BEDTIME as frequency for: Patients who have a good hypoglycemia awareness And insulin lispro (humaLOG) VIAL injection 1-4 UnitsJump to med 1-4 Units, Subcutaneous, 3 TIMES DAILY B EFORE MEALS, First dose on Thu09/25/16 at 1130, Until Discontinued
CORRECTION BOLUS Sensitive to insulin lean patient or total da ana dose of all insulin needed to achiev e glycemic control less than 30 units BG 140 - 160 Give 1 unit BG 161 - 200 Give 2 units BG 201 - 240 Give 3 units& nbsp; BG greater than 240, gi ve 4 units and recheck BG in 2 hours. If BG remains greater than 240, repeat 4 units (no more than three times) & call for new basal insulin order s. If less than 240 after two hours, give no insulin and resume prior schedule.
Routine Group 2: POCT Fingerstick Glucose (CANCELED) Routine, EVERY 4 HOURS, First occurrence on Myrna 09/25/16 at 1200, Until Specified
Consider choosing EVERY 4 HOURS as frequency for: - Type 1 Diabetes - At least 24 hours after coming off an ins ulin drip - At least 24 hours after admi ssion for DKA - Hypoglycemia unawareness - Patients who are otherwise unstable Select the same frequency for the correction bolus insulin order And insulin lispro (humaLOG) VIAL injection 1-4 UnitsJump to med 1-4 Units, Subcutaneous, EVERY 4 HOURS S CHEDULED, First dose on Myrna 09/25/16 at 0945, Until Discontinued
CORRECTION BOLUS Sensitive to insulin lean patient or total daily dose of all insulin needed to achieve g lycemic control less than 30 units BG 140 - 160 Give 1 unit BG 161 - 200 Give 2 units BG 201 - 240 Give 3 units&nbs p; BG greater than 240, give 4 units and recheck BG in 2 hours. If BG remains greater than 240, repeat 4 units (no more than three times) & call for new basal insulin orders.& amp;nbsp; If less than 240 after tw o hours, give no insulin and resume prior schedule.
Routine Group 3: dextrose 50% injection 25-50 mLJump to med 25-50 mL (12.5-25 g), Intravenous, EVERY 1 HOUR PRN, Starting Myrna 09/25/16 at 0917, Until 09/27/16 at 1428, Low blood sugar
For BG 50- 70: 120 mL Juice or Regular (not d iet) soda OR 12.5 gram (25 mL) Dextrose 50% IV OR, if no IV access, 1 mg Glucagon IM. Recheck BG in 30 minutes. May repeat juice, dextrose or glucagon once per ep isode For BG less than 50: 240 mL Juice or Regular (not diet) soda OR 25 grams (50 mL) Dextrose 50% IV OR, if no IV access, 1 mg Glucagon IM. Recheck BG in 30 minutes. &am p;nbsp;May repeat juice, dextrose, or gl ucagon once per episode. To avoid extravasation, push Dextrose 50% SLOWLY (3 mL over 1 minute) in a patent, running IV, preferably a central line.& nbsp;For persistent hypoglycemia, cons ider longer-acting treatment for the duration of the active insulin.
Routine Or glucagon (human recombinant) injection 1 mgJump to med 1 mg, Intramuscular, EVERY 1 HOUR PRN, S tarting Myrna 09/25/16 at 0917, Until 09/27/16 at 1428, Low blood sugar
For BG 50-70: 120 mL Juice or Regular (not diet) soda OR 1 2.5 gram (25 mL) Dextrose 50% IV OR, if no IV access, 1 mg Glucagon IM. Recheck BG in 30 minutes. May repeat juice, dextrose or glucagon once per episode&nbsp ;For BG less than 50: 240 mL Juice or Regular (not diet) soda OR 25 grams (50 mL) Dextrose 50% IV OR, if no IV access, 1 mg Glucagon IM. Recheck BG in 30 minutes. May rep eat juice, dextrose, or glucagon once pe r episode. To avoid extravasation, push Dextrose 50% SLOWLY (3 mL over 1 minute) in a patent, running IV, preferably a central line. For per sistent hypoglycemia, consider longer-ac ting treatment for the duration of the active insulin.
Routine documented in this encounter Care Teams Biomedical Electronics Technician Relationship Specialty Start Date End Date Librado Alvarado MD PCP - General 10/08/10 01/18/18 [address] [facility] [address] [place] [address] documented as of this encounter
--- OUTSIDE RECORDS SUMMARY | 2022-08-05 09:08 | XMS_ITS | Encounter Summary ---
:1955 Author Organization [facility] [place] [address] Care Team Providers Name Role Phone Librado Alvarado MD Primary Care Provider Encounter Details Date Type Department Care Team Description 11/14/2016 Office Visit Cardiology at [facility] Mariama Bravo MD Other hyperlipidemia; [facility] ASCVD (ar teriosclerotic cardiovascular disease); [facility] Type 2 diabetes mellitus without complic ation, without long-term current use of insulin; [place], [place] [address] Essential hypertension [id number] [phone] Social History Tobacco Use Types Packs/Day Years Used Date Former Smoker Cigarettes Comments: quit at age 17 Sex Assigned at Date Recorded Not on file documented as of this encounter Last Filed Vital Signs Vital Sign Reading Time Taken Comments Blood Pressure 122/80 11/14/2016 11:22 AM EST Pulse 87 11/14/2016 11:22 AM EST Temperature - - Respiratory Rate - - Oxygen Saturation 96% 11/14/2016 11:22 AM EST Inhaled Oxygen Concentration - - Weight 97.1 kg (214 lb) 11/14/2016 11:22 AM EST Height 182.9 cm (6') 11/14/2016 11:22 AM EST Body Mass Index 29.02 11/14/2016 11:22 AM EST documented in this encounter Progress Notes Mariama Bravo MD - 11/14/2016 11:40 AM EST Images from the original note were not included. Reason for Visit: F/U Referring Provider: Librado Alvarado MD [address] [address] ?? HPI: Burton Mcnair Jr. is a 61 y.o. male who I met during his recent PCI. Baljinder had presented with symptoms of angina and a positive stress test. He underwent atherectomy guided PCI to the RCA withgood result. He was discharge don ASA and Brilinta. Overall, Baljinder reports that he feels OK. He has noticed an increase in his exercise tolerance and is walking 2 miles without limitation. He has been endorsing symptoms of not feeling well at times. This led to a ED visit over Xmas. He has what felt like left sided chest heaviness which was bothersome. He was monitored in the ED at [place]. Biomarkers and ECG were negative. Since then he has had sporadic, nondescript symptoms. His PCP took him off the Birlinta and started plavix yesterday. He has not had any of the symptoms which he was having prior to the PCI. ALLERGIES: No Known Allergies ?? MEDICATIONS: ?? Current Outpatient Prescriptions: ??? clopidogrel (PLAVIX) 75 mg Tablet, take 1 tablet by mouth once daily, Disp: , Rfl: 0 ??? furosemide (LASIX) 20 mg Tablet, take 1 tablet by mouth once daily, Disp: , Rfl: 0 ??? atorvastatin (LIPITOR) 80 mg Tablet, Take 1 tablet by mouth every evening., Disp: 30 tablet, Rfl: 5 ??? nitroGLYcerin (NITROSTAT) 0.4 mg Tablet, Sublingual, Place 1 tablet under the tongue every 5 minutes as needed for Chest pain., Disp: 25 tablet, Rfl: 12 ??? aspirin 81 mg Tablet, Delayed Release (E.C.), Take 81 mg by mouth daily., Disp: , Rfl: ??? metFORMIN (GLUCOPHAGE) 1,000 mg Tablet, Take 1,000 mg by mouth 2 times daily (with meals)., Disp: , Rfl: ??? lisinopril (PRINIVIL;ZESTRIL) 40 mg Tablet, Take 40 mg by mouth daily., Disp: , Rfl: ??? meTOPROLOL succinate (TOPROL-XL) 50 mg Tablet Sustained Release 24 hr, 1 tablet daily., Disp: , Rfl: 0?? ROS: CONSTITUTIONAL: No weight loss, fever, chills, occasional episodes of fatigue. ?? HEENT: Eyes: No visual loss, blurred vision, double vision or scleral iscterus. No sinus tenderness or palpable thyromegaly. SKIN: No rashes. ?? CARDIOVASCULAR: No chest pain, chest pressure or chest discomfort. No palpitations No edema. No orthopnea or PND. No syncope RESPIRATORY: No shortness of breath, cough or sputum. No hemoptysis GASTROINTESTINAL: No anorexia, nausea, vomiting or diarrhea. No abdominal pain. No BRBPR or melena ?? GENITOURINARY: No hematuria or dysuria NEUROLOGICAL: No headache, dizziness, syncope, paralysis, ataxia, numbness or tingling in the extremities. No change in bowel or bladder control. ?? MUSCULOSKELETAL: No muscle, back pain, joint pain or stiffness. ?? HEMATOLOGIC: No anemia, bleeding or bruising. ?? LYMPHATICS: No enlarged nodes. No history of splenectomy. ?? PSYCHIATRIC: No history of depression or anxiety. ?? ENDOCRINOLOGIC: No reports of sweating, cold or heat intolerance. No polyuria or polydipsia. ?? ALLERGIES: No history of asthma, hives, eczema or rhinitis. . PHYSICAL EXAM: Constitutional: In general, alert and oriented X 3 Vitals Office Visit from 11/14/2016 in Cardiology Weight - Scale 97.1 kg (214 lb) Height 182.9 cm (6') BSA (Calculated - sq m) 2.22 sq meters BMI (Calculated) 29.1 Heart Rate 87 BP 122/80 SpO2 96 % Eyes: No scleral icterus or pale conjunctiva; no corneal arcus Ears, Nose, mouth, throat: No sinus tenderness; moist oral mucosa; no epistaxis; no visible thyromegaly Respiratory: Clear to auscultation bilaterally with good air entry bilaterally GI: No abdominal pain; + bowel sounds; no rigidity or guarding Cardiovascular: The heart rate is regular. S1 and S2 are normal and unobscured. There are no audiblemurmurs. Carotid upstroke is normal with no audible carotid bruits MSK: No joint deformity; No evidence of tendon xanthomas Skin: No visible rashes or bruises Neuro: Non-focal. Moves all extremities without limitation. CN nerves not examined. Psych: Mood appropriate Extremity: RLE: 2+ DP/PT pulses. No LE edema LLE: 2+ DP/PT pulses. No LE edema RUE: 2+ radial pulse LUE: 2+ radial pulse ?? DIAGNOSTIC TESTS: ?? None today A/P: Burton Mcnair Jr. is a 61 y.o. male with known CAD s/p atherectomy guided PCI to the RCA (10/01) 1: CAD: Its hard to know what to make of Baljinder's symptoms. I don't think his symptoms are due to coronary ischemia. He has no exertional symptoms. He will monitor the symptoms off the Brilinta and see how he feels. I don't think we need to proceed with a stress test at this time. We will continue the remainder of his medical therapy. He will be in touch if he continues to not feel well. And lastly, I do recommend adherence to a mediterranean diet and attempts at 30- 40 min of moderately strenuous exercise daily for CVD risk optimization. ?? Recommendations: 1: Load with plavix 300 mg and then continue 75 mg daily 2: F/U in 6 months Mariama Bravo MD [facility] Interventional Cardiology Pager [phone] ? documented in this encounter Plan of Treatment Upcoming Encounters Date Type Specialty Care Team Description 03/25/2022 Anesthesia Event Surgery Catrachita Baez MD [facility] ANESTHESIOLOGY [place], [place] [address] ([facility]) 12/15/2022 Office Visit Cardiology Damián Hart MD [facility] [address] [place] [address] (Wo rk) 03/25/2050 Hospital Encounter Surgery Citlalli Richardson MD Vocal cord paralysis [facility] OTOLARYNGOLOGY [place], [place] [address] ([facility]) documented as of this encounter Visit Diagnoses Diagnosis Other hyperlipidemia ASCVD (arteriosclerotic cardiovascular d isease) Unspecified cardiovascular disease Type 2 diabetes mellitus without complic ation, without long-term current use of insulin Essential hypertension Unspecified essential hypertension Vocal cord paralysis Paralysis of vocal cords or larynx, unsp ecified documented in this encounter Care Teams Senior Microsoft Consultant Relationship Specialty Start Date End Date Librado Alvarado MD PCP - General 10/08/10 01/18/18 [address] [facility] [address] [place] [address] documented as of this encounter
--- OUTSIDE RECORDS SUMMARY | 2022-08-05 09:08 | XMS_ITS | Encounter Summary ---
:1955 [place] [address] Care Team Providers Name Role Phone Librado Alvarado MD Primary Care Provider Encounter Details Date Type Department Care Team Description 11/09/2016 External Results [place] [id number] Social History Tobacco Use Types Packs/Day Years Used Date Former Smoker Cigarettes Comments: quit at age 17 Sex Assigned at Date Recorded Not on file documented as of this encounter Plan of Treatment Upcoming Encounters Date Type Specialty Care Team Description 03/25/2022 Anesthesia Event Surgery Catrachita Baez MD [facility] ANESTHESIOLOGY [place], [place] [address] (Wo rk) 12/15/2022 Office Visit Cardiology Damián Hart MD [facility] [place], [place] [address] (Wo rk) 03/25/2050 Hospital Encounter Surgery Citlalli Richardson MD Vocal cord paralysis [facility] OTOLARYNGOLOGY [place], [place] [address] (Wo rk) documented as of this encounter Procedures Procedure Name Priority Date/Time Associated Diagnosis Comme nts ECG SCAN Routine 11/09/2016 Results for thi s procedure are in the resu lts section. documented in this encounter Results Scan Doc: ECG (11/09/2016) Narrative This result has an attachment that is no t available. Historical Provider MD [facility] SCAN EXT ORDR/RSLT documented in this encounter Visit Diagnoses Not on filedocumented in this encounter Care Teams Interlocking And Signal Mechanic Relationship Specialty Start Date End Date Librado Alvarado MD PCP - General 10/08/10 01/18/18 [address] [place] [id number] documented as of this encounter
--- OUTSIDE RECORDS SUMMARY | 2022-08-05 09:08 | XMS_ITS | Encounter Summary ---
:1955 Author Organization [facility] [place] [address] Care Team Providers Name Role Phone Librado Alvarado MD Primary Care Provider Reason for Visit Reason Comments Establish Care Chest Pain, symptoms getting worse Consultation (Routine) - Closed Specialty Diagnoses / Procedures Referred By Contact Refer red To Contact Cardiology Diagnoses Chest pain without exertion Librado Alvarado MD Pollak, Emil M Jr., MD [address] [place] [address] [place] [address] [place] [address] Fax: Referral ID Status Reason Start Date Expiration Date Visits V isits Requested Authorized [id number] Closed Consult, 09/18/2016 09/18/2017 1 [facility] Encounter Details Date Type Department Care Team Description 09/19/2016 Office Visit Cardiology at [facility] Chest pain, unspecified type; Sami Hanks MD Essential hypertension; [address] Type 2 diabetes mellitus without complication, without long-term current use of insulin; [address] [place] [id number] [phone] Social History Tobacco Use Types Packs/Day Years Used Date Former Smoker Cigarettes Comments: quit at age 17 Sex Assigned at Date Recorded Not on file documented as of this encounter Last Filed Vital Signs Vital Sign Reading Time Taken Comments Blood Pressure 136/86 09/19/2016 10:37 AM EDT Pulse 81 09/19/2016 10:29 AM EDT per ekg Temperature - - Respiratory Rate - - Oxygen Saturation - - Inhaled Oxygen Concentration - - Weight 97.5 kg (215 lb) 09/19/2016 10:29 AM EDT Height 182.9 cm (6') 09/19/2016 10:29 AM EDT Body Mass Index 29.16 09/19/2016 10:29 AM EDT documented in this encounter Progress Notes [facility] Jr., MD - 09/19/2016 10:30 AM EDT Pre-Cardiac Catheterization Assessment History: Burton Mcnair Jr. is a 61 y.o. male here to be evaluated prior to possible diagnostic/?therapeutic cardiac catheterization. He had been feeling well and was exercising regularly over the summer without symptoms. In the last 3 weeks he has had chest tightness and burning which comes on with walking. It is associated with dyspnea and fatigue. It relieves with rest within a few minutes. His usual walk with his dog brings it on if he goes up any hill. He also gets it going up stairs. He can walk on flat ground comfortably. He has had no symptoms with arm activity at work. He was started on metoprolol with no improvement. He had an equivocal ETT with Dr. Alvaardo (see below) Past Medical History Diagnosis Date ??? ASCVD (arteriosclerotic cardiovascular disease) 09/18/2016 MIBI 2008: 10:30, 1:30 Stage IV [place] 12 METS Max HR: 153 > 85 % PMR(141) Max BP: 162/[address] change: none Reason for Termination: fatigue, no CP Imaging: small partially reversible infero-lateral defect EF 68% Impression: small area of ischemia at high work level ??? Diabetes mellitus ??? Hyperlipidemia ??? Hypertension No Known Allergies Current Outpatient Prescriptions Medication Sig Dispense Refill ??? aspirin 81 [...] Release 24 hr 1 tablet daily. 0 No current facility-administered medications for this visit. Coronary Risk factors: Smoking: former Hypertension:yes Diabetes:yes, oral Rx Lipid disorder:yes, on statin Family history:no Family History Problem (# of Occurrences) Relation (Name,Age of Onset) Breast Cancer (1) Sister Colorectal Cancer (1) Father Known or suspected valvular heart disease: no Ventricular function known:no Functional testing results: ETT 09/18/2016: on metoprolol, 7 minutes, HR 117, BP 200/90, 8 METS, stopped with chest pain and inferior and lateral ST sagging Review of Systems - Negative except as above Social History Social History ??? Marital status: Spouse name: N/A ??? Number of children: N/A ??? Years of education: N/A Occupational History ??? Not on file. Social History Main Topics ??? Smoking status: Former Smoker Types: Cigarettes ??? Smokeless tobacco: Not on file Comment: quit at age 17 ??? Alcohol use Not on file ??? Drug use: Not on file ??? Sexual activity: Not on file Other Topics Concern ??? 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 Lungs: Clear Cor: NSR, S1 and S2 physiologic. No precordial heaves or thrills. PMI unremarkable. No audible murmur, rub or gallop. Abd: soft, nontender, no organomegaly or bruits Ext: Pulses well preserved, no edema, cyanosis. Neuro: physiologic EKG: NSR 81, small inferior Qs, normal ST Labs: no recent Assessment: 1) chest pain suspicious for angina, progressive in the last few weeks. Previous MIBI positive but at much higher work load so it is most likely this is angina- repeating a stress test with imaging would not be helpful. As his symptoms interfere with normal activity proceeding the cath and PCI if possible makes the most sense. I will give him a script for NTG as well 2) BP controlled 3) lipids- will track down labs 4) DM- reviewed need to hold metformin for 48 hours before cath Plan: 1. A discussion was held reviewing [...] will be obtained before the procedure as ordered. -labs and CXR to be done today 3. The patient's medications, NPO status after MN and other details of the planned procedure were discussed. Questions were addressed. 4. Follow up will be dependent on the results of the cardiac catheterization. 5. Cath scheduled for 09/25/[address] Bravo documented in this encounter Miscellaneous Notes Addendum Note - Nicci Interiano - 09/23/2016 7:58 AM EST Addended by: NICCI INTERIANO on: 09/23/2016 07:58 AM Modules accepted: Orders documented in this encounter Plan of Treatment Upcoming Encounters Date Type Specialty Care Team Description 03/25/2022 Anesthesia Event Surgery Catrachita Baez MD [facility] ANESTHESIOLOGY [address] [place] [address] ([place]) 12/15/2022 Office Visit Cardiology Damián Hart MD [facility] [address] [place] [address] (Wo rk) 03/25/2050 Hospital Encounter Surgery Citlalli Richardson MD Vocal cord paralysis [facility] ER OTOLARYNGOLOGY [place] [address] (Wo rk) Scheduled Orders Name Type Priority Associated Diagnoses Order S chedule EKG 12 Lead ECG Routine Chest pain, unspecified type Ordered: 09/19/2016 documented as of this encounter Procedures Procedure Name Priority Date/Time Associated Comments Diagnosis CARDIAC CATHETERIZATION Routine 09/25/2016 9:43 Chest pain, R esults for this AM EST unspecified type procedure a re in the results section. ECG SCAN 09/22/2016 12:00 Results for this AM EST procedure are i n the results section. documented in this encounter Results CARDIAC CATHETERIZATION (09/25/2016 9:43 AM EST) Anatomical Region Laterality Modality Other Specimen (Source) Anatomical Location Collection Method / Collectio n Time Received Time / Laterality Volume Narrative 09/25/2016 9:43 AM EST ?[facility] ? Cardiac Cathete rization/Intervention Report ? Patient Name: Xu Gutiérrez, Burton Long. ? Procedure Date: 09/25/2016 ? A #: [id number] ? Primary Physician: Mariama Bravo ? Case #: [id number] ? File Name: [id number] ? Catheterization Order Number: [id number] ? [facility] ? Final Report [place], [place] ? Patient Name: ? Burton D. Gar field Jr ? ID#: ?[id number] ? : ?1955 ? Procedure Date: ? November 10, 20 16 ?Case #: ? [id number] ? Room: ? 6 ? Case Physician: ? Mariama Bravo M.D . ? Start: ?08:21 ?Fellow: ? Marie joe M.D. ? Admission: ??09/25/2016 ?Tahmina Leone M.D. ? Referring ? Librado marinelli M.D. ? Physicians: ?[facility] M.D. ? Procedures: ?* Coronary Angiography ?* Left Heart Catheterization ? History ?Burton Mcnair Jr is a 61 year old man. He has hypertension. The ?patient has hypercholesterolemi a managed with lipid therapy. He has ?diabetes managed with oral medi cation. The patient also has a history of ?an abnormal stress test. Prior to the initiation of this procedure, the ?patient was designated as ASA C lass III. ? Patient Status at Catheterization: ?The patient presented with: sta ble angina (w/i 42 days). [place] ?[employer]iovascular Society angina c lass was II. This patient was on beta ?blockers prior to the procedure . No stress or imaging studies were ?performed prior to this procedu re ? Technique: ?A 6 SLFr sheath was inserted in the right radial artery utilizing the ?Seldinger technique. The left c oronary artery was injected utilizing a ?5Fr JL 3.5 catheter. A 5Fr JR 4 catheter was used to inject the right ?coronary artery. Left ventricul ar pressure was performed with a 5Fr JR 4 ?catheter. 6,000 units of hepari n were administered. A total of 100cc of ?Omnipaque were opened, 91cc of Omnipaque were administered and 9cc of ?Omnipaque were wasted. Radiatio n: Fluoro time was 8.0 minutes, dose area ?product was 81,804 mGYcm2 and a ir kerma was 904 mGY. ?The patient received the follow ing medications prior to and during the ?procedure: Aspirin (any), Ticag relor and Unfractionated Heparin (any). ? Hemodynamics: ?Left Heart Pressures ? Resting: ? Syst D iast ? EDP ?a ?v ? m ?Ao 113 ?? 60 ?84 ?LV 123 ? 11 ? Coronary Angiography: ?Dominance: Right ?Left Main ?Left Anterior Descending ? There was mild diffuse d isease of the proximal segment of the left ? anterior descending jonnathan ry (LAD). ??The LAD was large. ??Distal flow ? was normal. ? There was mild diffuse d isease of the entire vessel segment of the ? first diagonal branch (D iagonal 1) of the LAD. ?Left Circumflex ? There was a 99% diffuse stenosis of the mid segment of the left ? circumflex artery (LCX). ? There was a 60% single d iscrete stenosis of the mid segment of the ? first obtuse marginal br anch (OM1) of the LCX. ??The OM1 was moderate ? in size. ?Right Coronary Artery ? There was a 95% calcifie d single discrete stenosis of the proximal ? segment of the right cor onary artery (RCA). ??The RCA was large. ? Distal flow was decrease d (LUIS CARLOS Grade 2). ??The mid segment of the ? RCA had a calcified sing le discrete 50% stenosis. ? There was mild diffuse d isease of the entire vessel segment of the ? right posterior descendi ng branch (RPDA) of the RCA. ??Distal flow ? was decreased (LUIS CARLOS Grad e 1) and was via collaterals from the LAD. ? Vascular Access: ?Vascular Access Management: ? Mechanical Compression o f the right radial artery access site was ? performed. ? Conclusions: ?* Two vessel coronary artery di sease (LCX and RCA) ? Complications/Events: ?The patient had no complication s during these procedures. ? Comments: ?Pt referred for symptoms of sta ble angina. ??Prox to mid RCA has a severe ?95% calcified stenosis. ??We at tempted to pass a wire and this was ?challenging. ??Wire crossed the initial stenosis however did not enter ?distal vessel with ease. ??Give n the feel of the lesion and the visible ?severity of calcification, lesi on treatment better suited for ?modification with atherectomy p rior to PCI. ??I would like to attempt to ?use orbital atherectomy guidanc e via femoral approach. ??Will attempt to ?make arrangements for this for tomorrow am. ??If orbital atherectomy not ?available, will attempt rotatio nal atherectomy. ??Pt will be admitted and ?continued on optimal medical th erapy. ?The attending physician was presen t for the entire procedure. ?Dr. Mariama Bravo M.D. performed the coronary angiography and left heart ?catheterization. ? Mariama Bravo, M.D. ? Electronically Signed by: Mariama Bravo, M. D. ? Report Finalized: 09/25/2016 ??09:40 ? Procedure Note Mariama Bravo MD - 09/25/2016Formatting o f this note might be different from the original. [facility] Cardiac Catheterization/Intervention Re port Patient Name: Burton Mcnair Jr Procedure Date: 09/25/2016 A #: [id number] Primary Physician: Mariama Bravo Case #: [id number] File Name: [id number] Catheterization Order Number: [id number] [facility] Final Report [place], [place] Patient Name: Burton Mcnair Jr ID# : [id number] : 1955 Procedure Date: September 25, 2016 Case # : [id number] Room: 6 Case Physician: Mariama Bravo M.D. Start: 08:21 Fellow: Marie Quigley M.D. Admission: 09/25/2016 Tahmina Leone M.D. Referring Librado Alvarado M.D. Physicians: [facility] M.D. Procedures: * Coronary Angiography * Left Heart Catheterization History Burton Mcnair Jr is a 61 year old man. He has hypertension. The patient has hypercholesterolemia manage d with lipid therapy. He has diabetes managed with oral medication. The patient also has a history of an abnormal stress test. Prior to the i nitiation of this procedure, the patient was designated as ASA Class III . Patient Status at Catheterization: The patient presented with: stable yo na (w/i 42 days). [place] [employer] Society angina class was II. This patient was on beta blockers prior to the procedure. No str ess or imaging studies were performed prior to this procedure Technique: A 6 SLFr sheath was inserted in the rig radial artery utilizing the Seldinger technique. The left coronary artery was injected utilizing a 5Fr JL 3.5 catheter. A 5Fr JR 4 cathete r was used to inject the right coronary artery. Left ventricular press ure was performed with a 5Fr JR 4 catheter. 6,000 units of heparin were a dministered. A total of 100cc of Omnipaque were opened, 91cc of Omnipaqu e were administered and 9cc of Omnipaque were wasted. Radiation: Fluor o time was 8.0 minutes, dose area product was 81,804 mGYcm2 and air kerma was 904 mGY. The patient received the following medi cations prior to and during the procedure: Aspirin (any), Ticagrelor an d Unfractionated Heparin (any). Hemodynamics: Left Heart Pressures Resting: Syst Diast EDP a v m Ao 113 60 84 LV 123 11 Coronary Angiography: Dominance: Right Left Main Left Anterior Descending There was mild diffuse disease of the p roximal segment of the left anterior descending artery (LAD). The L AD was large. Distal flow was normal. There was mild diffuse disease of the e ntire vessel segment of the first diagonal branch (Diagonal 1) of [facility] LAD. 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 There was a 60% single discrete stenosi s of the mid segment of the first obtuse marginal branch (OM1) of [facility] LCX. The OM1 was moderate in size. Right Coronary Artery There was a 95% calcified single discre te stenosis of the proximal segment of the right coronary artery (R CA). The RCA was large. Distal flow was decreased (LUIS CARLOS Grade 2 ). The mid segment of the RCA had a calcified single discrete 50% stenosis. There was mild diffuse disease of the e ntire vessel segment of the right posterior descending branch (RPDA ) of the RCA. Distal flow was decreased (LUIS CARLOS Grade 1) and was vi a collaterals from the LAD. Vascular Access: Vascular Access Management: Mechanical Compression of the right rad ial artery access site was performed. Conclusions: * Two vessel coronary artery disease (L CX and RCA) Complications/Events: The patient had no complications during these procedures. Comments: Pt referred for symptoms of stable yo na. Prox to mid RCA has a severe 95% calcified stenosis. We attempted to pass a wire and this was challenging. Wire crossed the initial s tenosis however did not enter distal vessel with ease. Given the feel of the lesion and the visible severity of calcification, lesion treat ment better suited for modification with atherectomy prior to PCI. I would like to attempt to use orbital atherectomy guidance via fe moral approach. Will attempt to make arrangements for this for tomorrow am. If orbital atherectomy not available, will attempt rotational athe rectomy. Pt will be admitted and continued on optimal medical therapy. The attending physician was present for the entire procedure. Dr. Mariama Bravo M.D. performed the jose l nary angiography and left heart catheterization. Mariama Bravo M.D. Electronically Signed by: Fox Payne Report Finalized: 09/25/2016 09:40 Mariama Bravo MD CARDIAC CATH ORDERABLES SCAN DOC: ECG (09/22/2016 12:00 AM EST) Narrative This result has an attachment that is no t available. Scanning Provider MEDIA MGR SCAN EXT ORDR/RSLT documented in this encounter Visit Diagnoses Diagnosis Chest pain, unspecified type Essential hypertension Unspecified essential hypertension Type 2 diabetes mellitus without complic ation, without long-term current use of insulin Other hyperlipidemia Chest pain, unspecified type Vocal cord paralysis Paralysis of vocal cords or larynx, unsp ecified documented in this encounter Care Teams Literacy Coach Relationship Specialty Start Date End Date Librado Alvarado MD PCP - General 10/08/10 01/18/18 [address] [facility] [address] [place] [address] documented as of this encounter
--- OUTSIDE RECORDS SUMMARY | 2022-08-05 09:08 | XMS_ITS | Encounter Summary ---
:1955 [place] [address] Care Team Providers Name Role Phone Librado Alvarado MD Primary Care Provider Reason for Visit Auth/Cert Specialty Diagnoses / Procedures Referred By Contact Refer red To Contact Diagnoses Chest pain, unspecified Chest pain Procedures PRO CATH PLMT LEFT HEART CATH & ARTS W/INJ & ANGIO IMG S&I CARDIAC CATHETERIZATION Referral ID Status Reason Start Date Expiration Date Visits Requ ested Visits Authorized [id number] 1 1 Encounter Details Date Type Department Care Team Description 09/25/2016 Surgery Director Of Design Alejandro Laws MD [place] [address] [place] [address] [phone] Social History Tobacco Use Types Packs/Day Years [...] EST Discharge Summary Patient Name: Burton Mcnair Patient Age: 61 y.o. Language: Spanish Race: White Ethnicity: Not nor Admit date: [...] for orbital atherectomy History of Presentation: Burton Ethan Mcnair Jr. is a 61 y.o. male [...] therapy and bring him back to the cardiac cath technologist for PCI with orbital atherectomy assistance. He returned to the cardiac cardiac cath technologist on 09-26-16 and underwent orbital atherectomy with [...] appointments: -During 8am-5pm Thursday through Thursday call [phone] to speak with a nurse in the cardiology clinic -All other times call [phone] and ask to speak to the in flight crew member neurosurgeon. MEDICATIONS - restart your metformin on 09/28/2016 [...] Primary care provider: Cardiology: Librado Alvarado MD [phone] Follow up as planned or as needed. Dr. Mariama Bravo [phone] 11-14-2016; 10:15 am check-in General Instructions None Future Appointments and Orders Future Appointments Provider Department Dept Phone 11/14/2016 10:30 AM Mariama Bravo MD Cardiology [phone] Discharge References/Attachments None documented in this encounter Discharge Instructions Patient InstructionsTahmina Leone MD - 09/26/2016 1:22 PM EST Cardiology Instructions Call your doctor if: Chest pain, dyspnea, pain or swelling in legs occurs. If you have non-emergent questions between now and the time of your follow up appointments: -During 8am-5pm Thursday through Thursday call [phone] to speak with a nurse in the cardiology clinic -All other times call [phone] and ask to speak to the in flight crew member neurosurgeon. MEDICATIONS - restart your metformin on 09/28/2016 [...] Primary care provider: Cardiology: Librado Alvarado MD [phone] Follow up as planned or as needed. Dr. Mariama Bravo [phone] 11-14-2016; 10:15 am check-in AttachmentsThe following attachments cannot be sent through Care Everywhere.CAD (CORONARY ARTERY DISEASE): GENERAL INFO (BURUNDIAN)PCI (PERCUTANEOUS CORONARY INTERVENTION): POST-OP (BURUNDIAN)HEART ATTACK: MEDICINE TO REDUCE RISK (BURUNDIAN) documented in this encounter Medications at Time [...] ischemia at high work level HPI: Burton Ethan Mcnair Jr. is a 61 y.o. male [...] plan to be broughtback to the cardiac cardiac cath technologist tomorrow for PCI and intended use of [...] plan for PCI) Tahmina Leone MD Interventional Sustainability Coordinator Mariama Bravo MD - 09/25/2016 7:51 AM [...] Quigley MD 7:51 AM September 25, 2016 Sustainability Coordinator Pager # [phone] I interviewed and examined Mr. Mcnair on 09/25/16. I agree with the history, physical exam findings and clinical plan as outlined above. Plan for diagnostic coronary angiography with [facility] via right radial approach for stable angina. Mariama Bravo MD [facility] Interventional Cardiology Pager [phone] documented in this encounter Miscellaneous Notes Plan [...] - 09/26/2016 2:24 PM EST Burton Mcnair . was seen today by Cardiac Rehabilitation for: [...] to the outpatient cardiac rehabilitation program at [facility] was discussed. Patient agrees to a referral [...] Catrachita Baez MD [facility] ANESTHESIOLOGY [place], [place] [address] (Wo rk) 12/15/2022 Office Visit Cardiology Damián Hart MD [facility] [place], [place] [address] (Wo rk) 03/25/2050 Hospital Encounter Surgery Citlalli Richardson MD Vocal cord paralysis [facility] OTOLARYNGOLOGY [place], [place] [address] (Wo rk) Scheduled Referrals Name Type Priority Associated Diagnoses Order S chedule Referral to Outpatient Referral Routine S/P coronary artery O rdered: Cardiac Rehab stent placement 09/27/2016 documented as of this encounter Procedures Procedure Name Priority Date/Time Associated Diagnosis Comme nts MAPPING EDITOR SCAN 09/28/2016 12:00 AM EST POCT GLUCOSE [...] STAT 09/26/2016 2:08 Results f or this ([facility]) PM EST procedure are i n the [...] Routine 09/26/2016 3:17 Results f or this ([facility]) AM EST procedure are i n the results section. CBC (WITH DIFF) Routine 09/26/2016 3:17 AM EST BASIC METABOLIC PANEL Routine 09/26/2016 3:17 Res ults for this (NON-FASTING) AM EST procedure are in the results section. POCT GLUCOSE Routine 09/26/2016 12:07 Results for this AM EST procedure are i n the results section. CARDIAC ENZYMES STAT 09/25/2016 9:04 Results f or this ([facility]) PM EST procedure are i n the [...] documented in this encounter Results SCAN DOC: MAPPING EDITOR (09/28/2016 12:00 AM EST) Narrative This result has an attachment that is no t available. Scanning Provider MEDIA MGR SCAN EXT ORDR/RSLT POCT Glucose (09/27/2016 8:22 AM EST) P athologist Signature POC Glucose 159 65 - 199 [facility] mg/dL [facility] Comment: Supplemental ranges: <140 mg/dL before meals <180 mg/dL all other times of the day Specimen Anatomical Collection Method Collection Time Receive d Time (Source) Location / / Volume Laterality Blood specimen 09/27/2016 8:22 AM 016 8:22 (specimen) EST AM EST Mariama Bravo MD POINT OF CARE TEST ORDERABLE S Performing Organization Address City/[facility]/[place] [address] EKG 12 Lead (09/27/2016 7:27 AM EST) Component Value Ref Range Test Analysis Performed Pathologis t Method Time At Signature Ventricular rate 61 BPM MUSE SYSTEM Atrial Rate 61 BPM MUSE SYSTEM P-R Interval 210 ms MUSE SYSTEM QRS Duration 96 ms MUSE SYSTEM Q-T Interval 414 ms MUSE SYSTEM QTC Calculated 416 ms MUSE SYSTEM (Bezet) Calculated P [place] 46 degrees MUSE SYSTEM Calculated R [place] -18 degrees MUSE SYSTEM Calculated T [place] -21 degrees MUSE SYSTEM INTERPRETATION Sinus rhythm with 1st degree A-V block MUSE SYSTEM Voltage criteria for left ventricular hypertrophy Inferior infarct (cited on or before 25-SEP-2016) When compared with ECG of 26-SEP-2016 11:03, No significant change was found Confirmed by MD Polo, Burton ([id number]) on 09/27/2016 8:25:24 A M Specimen Anatomical Collection Method Collection Time Receive d Time (Source) Location / / Volume Laterality 09/27/2016 7:27 AM 6 8:25 EST AM EST Mariama Bravo MD ECG ORDERABLES Performing Organization Address City/[facility]/ZIP Code Phon e Number MUSE SYSTEM POCT Glucose (09/27/2016 4:19 AM EST) athologist Signature POC Glucose 152 65 - 199 [place] mg/dL [facility] Comment: Supplemental ranges: <140 mg/dL before meals <180 mg/dL all other times of the day Specimen Anatomical Collection Method Collection Time Receive d Time (Source) Location / / Volume Laterality Blood specimen 09/27/2016 4:19 AM 016 4:19 (specimen) EST AM EST Mariama Bravo MD POINT OF CARE TEST ORDERABLE S Performing Organization Address City/State/[place] [address] POCT Glucose (09/27/2016 12:12 AM EST) athologist Signature POC Glucose 131 65 - 199 [facility] [place] mg/dL [facility] Comment: Supplemental ranges: <140 mg/dL before meals <180 mg/dL all other times of the day Specimen Anatomical Collection Method Collection Time Receive d Time (Source) Location / / Volume Laterality Blood specimen 09/27/2016 12:12 6 (specimen) AM EST 12:12 AM EST Mariama Bravo MD POINT OF CARE TEST ORDERABLE S Performing Organization Address City/State/[place] [address] POCT Glucose (09/26/2016 8:22 PM EST) athologist Signature POC Glucose 150 65 - 199 [place] mg/dL [facility] Comment: Supplemental ranges: <140 mg/dL before meals <180 mg/dL all other times of the day Specimen Anatomical Collection Method Collection Time Receive d Time (Source) Location / / Volume Laterality Blood specimen 09/26/2016 8:22 PM 016 8:22 (specimen) EST PM EST Mariama Bravo MD POINT OF CARE TEST ORDERABLE S Performing Organization Address City/State/[place] [address] POCT Glucose (09/26/2016 4:20 PM EST) athologist Signature POC Glucose 157 65 - 199 [facility] Comment: Supplemental ranges: <140 mg/dL before meals <180 mg/dL all other times of the day Specimen Anatomical Collection Method Collection Time Receive d Time (Source) Location / / Volume Laterality Blood specimen 09/26/2016 4:20 PM 016 4:20 (specimen) EST PM EST Mariama Bravo MD POINT OF CARE TEST ORDERABLE S Performing Organization Address City/[facility] [place] [address] Cardiac Enzymes (09/26/2016 2:08 PM EST) athologist Signature Troponin-T <0.03 <=0.03 [facility] ng/mL [facility] Comment: 0.03 ng/mL: Represents the [...] consensus document of the Joint Society of Cardiology/Italian College o f Cardiology Committee for the redefinition of myocardial infarction. ? ?Journal of the Italian College of Cardiology 2000; 36: 959-969] CK, Total 134 0 - 200 unit/L [facility] Specimen Anatomical Collection Method Collection Time Receive d Time (Source) Location / / Volume Laterality Blood specimen 09/26/2016 2:08 PM 016 2:22 (specimen) EST PM EST Resulting Agency Comment Spec In Lab Mary Juárez MD CHEMISTRY ORDERABLES Performing Organization Address City/[facility]/ZIP Code Phon e Number [address] POCT Glucose (09/26/2016 1:14 PM EST) P athologist Signature POC Glucose 121 65 - 199 [facility] mg[facility]dL [facility] Comment: Supplemental ranges: <140 mg/dL before meals <180 mg/dL all other times of the day Specimen Anatomical Collection Method Collection Time Receive d Time (Source) Location / / Volume Laterality Blood specimen 09/26/2016 1:14 PM 016 1:14 (specimen) EST PM EST Mariama Bravo MD POINT OF CARE TEST ORDERABLE S Performing Organization Address City/State/ZIP [place] [address] [facility] [address] EKG 12 Lead (09/26/2016 11:03 AM EST) Component Value Ref Range Test Analysis Performed Pathologis t Method Time At Signature Ventricular rate 55 BPM MUSE SYSTEM Atrial Rate 55 BPM MUSE SYSTEM P-R Interval 216 ms MUSE SYSTEM QRS Duration 102 ms MUSE SYSTEM Q-T Interval 440 ms MUSE SYSTEM QTC Calculated 420 ms MUSE SYSTEM (Bezet) Calculated P [place] 45 degrees MUSE SYSTEM Calculated R [place] -12 degrees MUSE SYSTEM Calculated T [place] -12 degrees MUSE SYSTEM INTERPRETATION Sinus bradycardia [...] SYSTEM POCT Glucose (09/26/2016 10:48 AM EST) P athologist Signature POC Glucose 162 65 - 199 [facility]dL [facility] Comment: Supplemental ranges: <140 mg/dL before meals <180 mg/dL all other times of the day Specimen Anatomical Collection Method Collection Time Receive d Time (Source) Location / / Volume Laterality Blood specimen 09/26/2016 10:48 6 (specimen) AM EST 10:48 AM EST Mariama Bravo MD POINT OF CARE TEST ORDERABLE S Performing Organization Address City/State/[place] [address] CARDIAC CATHETERIZATION (09/26/2016 10:38 AM EST) Anatomical Region Laterality Modality Other Specimen (Source) Anatomical Location Collection Method / Collectio n Time Received Time / Laterality Volume Narrative 09/26/2016 1:13 PM EST ?[facility] ? Cardiac Cathete rization/Intervention Report ? Patient Name: Xu Jr, Burton D. ? Procedure Date: 09/26/2016 ? A #: [id number] ? Primary Physician: Mariama Bravo ? Case #: [id number] ? File Name: [id number] ? Catheterization Order Number: [id number] ? [facility] ? Final Report [place], [place] ? Patient Name: ? Burton Nielsen Gar field Jr ? ID#: ?[id number] ? : ?1955 ? Procedure Date: ? November 11, 20 16 ?Case #: ? [id number] ? Room: ? 6 ? Case Physicians: [...] with: sta ble angina (w/i 42 days). Grand ?Cardiovascular Society angina c lass was II. [...] ?atherectomy-coronary and stent ins ertion-coronary. ? Mariama Bravo, M.D. ? Electronically Signed by: Mariama Bravo M. D. ? Report Finalized: 09/26/2016 ??12:57 ? Report Last Ammended: 01/05/2017 ??15:09 ? Procedure Note Mariama Bravo MD - 01/05/2017Formatting o f this note might be different from the original. [facility] Cardiac Catheterization/Intervention Re port Patient Name: Burton Mcnair Jr Procedure Date: 09/26/2016 A #: [id number] Primary Physician: Mariama Bravo Case #: [id number] File Name: [id number] Catheterization Order Number: [id number] [facility] Final Report [place], [place] Patient Name: Burton Mcnair Jr ID# : [id number] : 1955 Procedure Date: September 26, 2016 [...] with: stable yo na (w/i 42 days). Grand Cardiovascular Society angina class was II. This [...] for the procedure was Elective . The [facility] indication for the procedure was Stable angina. [...] Dr. Rigoberto Wyatt M.D. [facility], atherectomy-coronary and stent insertio n-coronary. Mariama Bravo M.D. Electronically Signed by: Fox Payne Report Finalized: 09/26/2016 12:57 Report Last Ammended: 01/05/2017 15:09 Mariama Bravo MD CARDIAC CATH ORDERABLES POCT Glucose (09/26/2016 7:55 AM EST) athologist Signature POC Glucose 175 65 - 199 [facility] mg/dL [facility] Comment: Supplemental ranges: <140 mg/dL before meals <180 mg/dL all other times of the day Specimen Anatomical Collection Method Collection Time Receive d Time (Source) Location / / Volume Laterality Blood specimen 09/26/2016 7:55 AM 016 7:55 (specimen) EST AM EST Mariama Bravo MD POINT OF CARE TEST ORDERABLE S Performing Organization Address City/State/ZIP Code Phon e Number [place] [phone] Cardiac Enzymes (09/26/2016 3:17 AM EST) athologist Signature Troponin-T <0.03 <=0.03 [facility] ng/mL [facility] Comment: 0.03 ng/mL: Represents the [...] consensus document of the Joint Society of Cardiology/Italian College o f Cardiology Committee for the redefinition of myocardial infarction. ? ?Journal of the Italian College of Cardiology 2000; 36: 959-969] CK, Total 146 0 - 200 unit/L [facility] Specimen Anatomical Collection Method Collection Time Receive d Time (Source) Location / / Volume Laterality Blood specimen Venous Draw / 09/26/2016 3:17 AM 2015 3:42 (specimen) Unknown EST AM EST Resulting Agency Comment Spec In Lab Mariama Bravo MD CHEMISTRY ORDERABLES Performing Organization Address City/State/ZIP Code Phon e Number [place] [phone] Differential, Automated (09/26/2016 3:17 AM EST) P athologist Signature Neutrophils % 60.8 % [facility] Neutr Abs (ANC) 2.79 1.70 - [facility] 6.10 [facility] x10(3)/[facility] LABORATORY Lymphocytes % 28.1 % [facility] Lymphocytes Abs 1.3 0.9 - 3.2 [facility] x10(3)/[facility] LABORATORY Monocytes % 8.9 % [facility] Monocyte Abs 0.4 0.3 - 0.9 [facility] x10(3)/[facility] LABORATORY Eosinophils % 1.3 % [facility] Eosinophils Abs 0.1 0.0 - 0.4 [facility] x10(3)/[facility] LABORATORY Basophils % 0.7 % [facility] Basophils Abs 0.0 0.0 - 0.1 [facility] x10(3)/[facility] LABORATORY Immature Gran % 0.20 % [facility] Comment: Immature granulocytes(IG's)percentage an d absolute count will include metamyelocytes, myelocytes, and promyelo cytes. Blood smears from CBCs yielding IG's will be scanned manually for concor dance. If this scan disagrees with the automated IG or if promyelocytes are not ed, a manual differential will be performed. Nikole Gran Abs 0.01 0.00 - 0.04 x10(3)/[facility] LABORATORY Specimen Anatomical Collection Method Collection Time Receive d Time (Source) Location / / Volume Laterality Blood specimen 09/26/2016 3:17 AM 016 3:42 (specimen) EST AM EST Resulting Agency Comment Spec In Lab Mariama Bravo MD HEMATOLOGY ORDERABLES Performing Organization Address City/State/ZIP Code Phon e Number [address] (ABNORMAL) Hemogram (09/26/2016 3:17 AM EST) Analysis Performed At Patho logist Time Signature WBC 4.6 4.0 - 9.5 [facility] x[facility](3)/[facility] LABORATORY RBC 3.97 (L) 4.58 - [place] 5.54 [facility] x10(6)/[facility] LABORATORY Hemoglobin 12.5 (L) 13.7 - [facility] 16.5 gm/dL [facility] Hematocrit 35.3 (L) 40.5 - [facility] 48.5 % [facility] MCV 88.9 82.9 - [facility] 93.1 [facility] LABORATORY MCH 31.5 27.5 - [facility] 32.1 pg [facility] MCHC 35.4 32.0 - [facility] 35.7 gm/dL [facility] Platelets 115 (L) 145 - 357 [facility] x10(3)/[facility] LABORATORY RDWSD 37.6 36.0 - [facility] 45.0 [facility] LABORATORY RDWCV 11.7 11.4 - [facility] 13.8 % [facility] MPV 9.6 7.6 - 12.9 [facility] LABORATORY nRBC % Auto 0.0 % [facility] nRBC Abs Auto 0.000 0.000 - [facility] 0.000 [facility] x10(3)/[facility] LABORATORY Specimen Anatomical Collection Method Collection Time Receive d Time (Source) Location / / Volume Laterality Blood specimen 09/26/2016 3:17 AM 016 3:42 (specimen) EST AM EST Resulting Agency Comment Spec In Lab Mariama Bravo MD HEMATOLOGY ORDERABLES Performing Organization Address City/State/[place] [address] (ABNORMAL) Basic Metabolic Panel (non-fasting) (09/26/2016 3:17 AM EST) P athologist Signature Glucose Lvl 145 65 - 199 [facility] mg/dL [facility] Comment: Diabetes: >=200 mg/dL plus symp toms BUN 14 10 - 20 mg/dL [facility] Creatinine 0.79 (L) 0.80 - 1.50 mg/dL [facility] Comment: Please note that the pediatric reference intervals supplied above were not validated at [facility]. Results from pediatri c patients should be interpreted in conjunction to the patient's age, height and muscle mass. Sodium 141 135 - 145 mmol/L [facility] Potassium 4.1 3.5 - 5.0 mmol/L [facility] Comment: Please note: ??Patients with WBC >100,00 0 may have falsely elevated Potassium levels. ??For accurate Potassium quantif ication in these patients send serum separator tube (gold top) for subsequent determinations. ??Contact the Clinical Chemistry Laboratory if there are any qu estions. Chloride 103 98 - 107 mmol/L [facility] CO2 24 22 - 31 mmol/L [facility] Anion Gap 14 5 - 15 mmol/L [facility] Calcium 8.5 8.5 - 10.5 mg/dL [facility] [...] the following links into your internet browser. [email or web address] Specimen Anatomical Collection Method Collection Time Receive d Time (Source) Location / / Volume Laterality Blood specimen 09/26/2016 3:17 AM 016 3:42 (specimen) EST AM EST Resulting Agency Comment Spec In Lab Mariama Bravo MD CHEMISTRY ORDERABLES Performing Organization Address City/State/ZIP Code Phon e Number [address] POCT Glucose (09/26/2016 12:07 AM EST) athologist Signature POC Glucose 135 65 - 199 [place] mg/dL [facility] Comment: Supplemental ranges: <140 mg/dL before meals <180 mg/dL all other times of the day Specimen Anatomical Collection Method Collection Time Receive d Time (Source) Location / / Volume Laterality Blood specimen 09/26/2016 12:07 6 (specimen) AM EST 12:07 AM EST Mariama Bravo MD POINT OF CARE TEST ORDERABLE S Performing Organization Address City/[facility]/ZIP Code Phon e Number [address] Cardiac Enzymes (09/25/2016 9:04 PM EST) athologist Signature Troponin-T <0.03 <=0.03 [facility] ng/mL [facility] Comment: 0.03 ng/mL: Represents the [...] consensus document of the Joint Society of Cardiology/Italian College o f Cardiology Committee for the redefinition of myocardial infarction. ? ?Journal of the Italian College of Cardiology 2000; 36: 959-969] CK, Total 183 0 - 200 unit/L [facility] Specimen Anatomical Collection Method Collection Time Receive d Time (Source) Location / / Volume Laterality Blood specimen 09/25/2016 9:04 PM 016 9:15 (specimen) EST PM EST Resulting Agency Comment Spec In Lab Mary Juárez MD CHEMISTRY ORDERABLES Performing Organization Address City/[facility]/ZIP Code Phon e Number [address] POCT Glucose (09/25/2016 8:34 PM EST) P athologist Signature POC Glucose 97 65 - 199 [facility] mg/dL [facility] Comment: Supplemental ranges: <140 mg/dL before meals <180 mg/dL all other times of the day Specimen Anatomical Collection Method Collection Time Receive d Time (Source) Location / / Volume Laterality Blood specimen 09/25/2016 8:34 PM 016 8:34 (specimen) EST PM EST Mariama Bravo MD POINT OF CARE TEST ORDERABLE S Performing Organization Address City/[facility]/ZIP Code Phon e Number [address] POCT Glucose (09/25/2016 5:04 PM EST) athologist Signature POC Glucose 182 65 - 199 [facility] mg/dL [facility] Comment: Supplemental ranges: <140 mg/dL before meals <180 mg/dL all other times of the day Specimen Anatomical Collection Method Collection Time Receive d Time (Source) Location / / Volume Laterality Blood specimen 09/25/2016 5:04 PM 016 5:04 (specimen) EST PM EST Mariama Bravo MD POINT OF CARE TEST ORDERABLE S Performing Organization Address City/[facility]/ZIP Code Phon e Number [address] EKG 12 Lead (09/25/2016 8:11 AM EST) Component Value Ref Range Test Analysis Performed Pathologis t Method Time At Signature Ventricular rate 58 BPM MUSE SYSTEM Atrial Rate 58 BPM MUSE SYSTEM P-R Interval 198 ms MUSE SYSTEM QRS Duration 86 ms MUSE SYSTEM Q-T Interval 428 ms MUSE SYSTEM QTC Calculated 420 ms MUSE SYSTEM (Bezet) Calculated P [place] 51 degrees MUSE SYSTEM Calculated R [place] -14 degrees MUSE SYSTEM Calculated T [place] -20 degrees MUSE SYSTEM INTERPRETATION Sinus bradycardia [...] Signature POC Glucose 154 65 - 199 [facility] mg/dL [facility]ORY Comment: Supplemental ranges: <140 mg/dL before meals <180 mg/dL all other times of the day Specimen Anatomical Collection Method Collection Time Receive d Time (Source) Location / / Volume Laterality Blood specimen 09/25/2016 6:43 AM 016 6:43 (specimen) EST AM EST Mariama Bravo MD POINT OF CARE TEST ORDERABLE S Performing Organization Address City/State/[place] [address] documented in this encounter Visit Diagnoses Diagnosis ASCVD (arteriosclerotic cardiovascular d isease) Unspecified cardiovascular disease S/P coronary artery stent placement Postsurgical percutaneous transluminal c oronary angioplasty status Chest pain, unspecified type Vocal cord paralysis [...] in 24 hours., Routine aspirin chewable tablet Given 09/25/2016 8:21 AM EST 324 mg ONCE PRN, Starting on Myrna 09/25/16 at 0821, Until Myrna 09/25/16 at 1502, Cath (Intra-Procedure), Routine aspirin EC tablet 81 mg Given [...] insulin., Routine fentaNYL 50 mcg/mL multi-dose injection Given 09/25/2016 8:47 AM EST 25 mcg ONCE PRN, Starting on Myrna 09/25/16 at 0821, Until Thu09/25/16 at 1502, Cath (Intra-Procedure), Routine Given 09/25/2016 8:21 AM EST 50 mcg glucagon (human recombinant) injection 1 mg 1 [...] duration of the active insulin. heparin (porcine) injection Given 09/25/2016 8:31 AM EST 6,000 Units ONCE PRN, Starting on Myrna 09/25/16 at 0831, Until Myrna 09/25/16 at 1502, Cath (Intra-Procedure), Routine heparin (porcine) subcutaneous injection Given 016 6:00 AM EST 5,000 Units 5,000 Units 5,000 Units, Subcutaneous, EVERY 8 HOURS SCHEDULED, First dose on Myrna 09/25/16 at 1600, Until Discontinued, Routine Given [...] EVERY 4 HOURS SCHEDULED, First dose on Myrna 09/25/16 at 0945, [...] Given 09/26/2016 8:00 PM EST 1 Units iohexol (OMNIPAQUE) 350 mg/mL solution Given 09/25/2016 9:10 AM EST 91 mLs ONCE PRN, Starting on Myrna 09/25/16 at 0910, Until Myrna 09/25/16 at 1502, Cath (Intra-Procedure), Routine lidocaine (XYLOCAINE) 10 mg/mL [...] Given 09/26/2016 8:03 AM EST 50 mg midazolam (PF) (VERSED) 1 mg/mL multi-dose Given 09/25/2016 8:47 AM EST 1 mg injection ONCE PRN, Starting on Myrna 09/25/16 at 0821, Until Myrna 09/25/16 at 1502, Cath (Intra-Procedure), Routine Given 09/25/2016 8:21 AM EST 1 mg nitroGLYcerin (NITROSTAT) SL tablet 0.4 [...] 72 hours., Routine nitroGLYcerin 100 mcg/mL intracoronary Given 09/25/2016 8:29 AM EST 200 mcg dilution ONCE PRN, Starting on Myrna 09/25/16 at 0829, Until Myrna 09/25/16 at 1502, Cath (Intra-Procedure), Routine sodium chloride 0.9 % flush 5 [...] medication record., Routine sodium chloride 0.9% infusion New Bag 09/25/2016 8:35 AM EST 250 mLs CONTINUOUS PRN, Starting on Myrna 09/25/16 at 0835, Until Myrna 09/25/16 at 1502, Cath (Intra-Procedure) ticagrelor (BRILINTA) tablet 90 mg Given 09/27/2016 8:58 AM EST 90 mg 90 mg, Oral, 2 TIMES DAILY, First dose on Thu09/26/16 at 2100, Until Discontinued, After initial loading dose of aspirin (usually 325 mg), use ticagrelor with daily maintenance dose of aspirin of 81 mg , Routine Given 09/26/2016 9:00 PM EST 90 mg ticagrelor (BRILINTA) tablet Given 09/25/2016 8:47 AM EST 180 mg ONCE PRN, Starting on Myrna 09/25/16 at 0847, Until Myrna 09/25/16 at 1502, Cath (Intra-Procedure), Routine zolpidem (AMBIEN) tablet 5 mg Given [...] Roberts, ESTEFANIA) 0619 (Given - Provider: Azra Roberts, ESTEFANIA)0843 (JAN Hold - Provider: Admin Adt - [...] Alice Sellers RN)0905 (Given - Provider: Macey Phelps, RN)1200 (Due - Provider: Admin Adt) 1-4 Units, Subcutaneous, EVERY 4 HOURS S CHEDULED, First dose on Myrna 09/25/16 at 0945, Until Discontinued, CORRECTION BOLUS Sensitive to insulin lean patient or total daily dose of all insulin needed 2037 (Not Given - Provider: Azra Roberts RN - Reason: Order parameters not met) 0843 (MAR Hold - Provider: Admin Adt - Reason: Transfer to a Procedural area)1200 (Automatically Held - Provider: Admin Adt)1307 (JAN Unhold - Provider: Admin Adt) to achieve [...] area)0900 (Automatically Held - Provider: Admin Adt)1307 (MAR Unhold - Provider: Admin Adt)1350 (Given - Provider: Pili Enriquez RN) 0857 (Given - Provider: Macey Phelps, ESTEFANIA) 40 mg, Oral, DAILY, First dose on Thu at 0900, Until Discontinued, Routine meTOPROLOL succinate (TOPROL-XL) XL tablet 50 mg 0803 (Given - Provider: Pili Enriquez RN)0843 (MAR Hold - Provider: Admin Adt - Reason: Transfer to a Procedural area)1307 (JAN Unhold - Provider: Admin Adt) 0857 (Given - Provider: Macey Phelps, ESTEFANIA) 50 mg, Oral, DAILY, First dose on Thu at 0900, Until Discontinued, DO NOT CRUSH OR OPEN, Routine simvastatin (ZOCOR) tablet 40 mg (CANCELED) 2038 (Give n - Provider: Azra Roberts, ESTEFANIA) 0843 (JAN Hold - Provider: Admin Adt - R theresa: Transfer to a Procedural area)1055 (MAR Unhold - Provider: Admin Adt) 40 mg, Oral, NIGHTLY, First dose on Myrna 09/25/16 at 2100, Until Discontinued, Routine sodium chloride 0.9 % flush 5 mL 0945 (Not Given - Pro vider: Alice Sellers RN - Reason: Contraindicated)2040 (Given - Provider: Azra Roberts, ESTEFANIA) 0804 (Given - Provider: Pili Enriquez RN)0843 (JAN Hold - Provider: Admin Adt - Reason: Transfer to a Procedural area)1307 (MAR Unhold - Provider: Admin Adt)2100 (Not Given - Provider: Alice Sellers RN - Reason: Contraindicated) 0904 (Given - Provider: Macey Phelps RN) 5 mL, Intravenous, 2 TIMES DAILY, First dose on Thu09/25/16 at 0945, Until Discontinued, Routine ticagrelor (BRILINTA) tablet 90 mg 2100 (Given - Provider: Alice Sellers RN) 0858 (Given - Provider: Macey Phelps, ESTEFANIA) 90 mg, Oral, 2 TIMES DAILY, First dose o n Thu09/26/16 at 2100, Until Discontinued, After initial loading dose of aspirin (usually 325 mg), use ticagrelor with daily maintenance dose of aspirin of 81 mg , Routine zolpidem (AMBIEN) tablet 5 mg (COMPLETED) 2223 (Given - Provider: Azra Roberts, ESTEFANIA) 5 mg, Oral, ONCE, 1 dose, Myrna 09/25/16 at 2045, Routine Continuous Medication Order 09/25/2016 09/26/2016 09/27/2016 sodium chloride 0.9% infusion () 0945 (Continue d Bag - Provider: Shala Blake, ESTEFANIA) 100 mL/hr, at 100 mL/hr, Intravenous, CO NTINUOUS, Starting Myrna 09/25/16 at 0945, Until Myrna 09/25/16 at 1344, Recovery (Recovery-Hospital Unit) sodium chloride 0.9% infusion 1050 (New Bag - Provider: Azra Fan RN) 100 mL/hr, at 100 mL/hr, Intravenous, CO NTINUOUS, Starting Thu09/26/16 at 1115, Until Thu09/26/16 at 1514, Recovery (Recovery-Hospital Unit) PRN Medication Order 09/25/2016 09/26/2016 09/27/2016 acetaminophen (TYLENOL) tablet 650 mg 08 43 (JAN Hold - Provider: Admin Adt - Reason: Transfer to a Procedural area)1307 ([facility] Unhold - Provider: Admin Adt) 650 mg, Oral, EVERY 4 HOURS PRN, Startin g Myrna 09/25/16 at 0916, Until 09/27/16 at 1428, Pain, Headaches, Maximum dose of acetaminophen is 4000 mg from all sources in 24 hours., Routine aspirin chewable tablet (CANCELED) 0821 (Given - Provi connie: Slime Borges, ESTEFANIA) ONCE PRN, Starting Myrna 09/25/16 at 0821, Until Myrna 09/25/16 at 1502, Cath (Intra-Procedure), Routine dextrose 50% injection 25-50 mL(Linked Group 3) 0843 ([facility] Hold - Provider: Admin Adt - Reason: Transfer to a Procedural area)1307 ([facility] Unhold - Provider: Admin Adt) 25-50 mL [...] (CANCELED) 082 1 (Given - Provider: Slime Borges, ESTEFANIA)0847 (Given - Provider: Slime Borges RN) ONCE [...] (porcine) injection (CANCELED) 0831 (Given - P yassine: Slime Borges RN) ONCE PRN, Starting Thu09/25/16 at 0831, Until Thu09/25/16 at 1502, Cath (Intra-Procedure), Routine heparin (porcine) injection (CANCELED) 0 844 (Given - Provider: Johnathon Lora)0933 (Given - Provider: Jayda Villeda) ONCE PRN, Starting Thu09/26/16 at 0844, Until Thu09/26/16 at 1137, Cath (Intra-Procedure), Routine iohexol (OMNIPAQUE) 350 mg/mL solution (CANCELED) 0910 (Given - Provider: Mariama Bravo MD) ONCE PRN, Starting Thu09/25/16 at 0910, Until Thu09/25/16 at 1502, Cath (Intra-Procedure), Routine iohexol (OMNIPAQUE) 350 mg/mL solution (CANCELED) 1030 (Given - Provider: Mariama Bravo MD) ONCE PRN, Starting Thu09/26/16 at 1030, Until Thu09/26/16 at 1137, Cath (Intra-Procedure), Routine lidocaine (XYLOCAINE) 10 mg/mL (1 %) injection 3 mg 0843 ([facility] Hold - Provider: Admin Adt - Reason: Transfer to a Procedural area)1307 ([facility] Unhold - Provider: Admin Adt) 3 mg (0.3 mL), Subcutaneous, ONCE PRN, 1 dose, Starting Thu09/25/16 at 0704, Until 09/27/16 at 1428, with discomfort with PIV insertion, Routine lidocaine (XYLOCAINE) 10 mg/mL (1 %) injection 3 mg 0843 ([facility] Hold - Provider: Admin Adt - Reason: Transfer to a Procedural area)1307 ([facility] Unhold - Provider: Admin Adt) 3 mg (0.3 mL), Subcutaneous, ONCE PRN, 1 dose, Starting Thu09/25/16 at 0914, Until 09/27/16 at 1428, for discomfort with PIV insertion, Routine midazolam (PF) (VERSED) 1 mg/mL multi-dose injection ( CANCELED) 0821 (Given - Provider: Slime C Durfey, RN)0847 (Given - Provider: Slime Borges RN) [...] area)1307 (JAN Unhold - Provider: Admin Adt) 5-20 mL, [...] ESTEFANIA) ONCE PRN, Starting Myrna 09/25/16 at 0847, Until Myrna 09/25/16 at 1502, Cath (Intra-Procedure), Routine ticagrelor (BRILINTA) tablet (CANCELED) 0830 (Given - Provider: Stan Borges RN) ONCE PRN, Starting Thu09/26/16 at 0830, Until Thu09/26/16 at 1137, Cath (Intra-Procedure), Routine zolpidem (AMBIEN) tablet 5 mg 2136 (Given - Prov ider: Alice Sellers RN) 5 mg, Oral, NIGHTLY PRN, Starting Thu at 2115, Until 09/27/16 at 1428, Sleep, Routine Linked Groups Order [...] 4 HOURS S CHEDULED, First dose on Thu09/25/16 at 0945, Until Discontinued
CORRECTION BOLUS Sensitive [...]
Routine documented in this encounter Care Teams Reading Interventionist Relationship Specialty Start Date End Date Librado Alvarado MD PCP - General 10/08/10 01/18/18 [address] [place] [address] documented as of this encounter
--- OUTSIDE RECORDS SUMMARY | 2022-08-05 09:08 | XMS_ITS | Encounter Summary ---
:1955 Author Organization [facility] [place] [address] Care Team Providers Name Role Phone Librado Alvarado MD Primary Care Provider Encounter Details Date Type Department Care Team Description 11/09/2016 Telephone Cardiology Shirley Pablo MD [facility] [address] [place] [address] CARDIOLOGY DEPT [phone] [place], [place] [address] (Wo rk) Social History Tobacco Use Types Packs/Day Years Used Date Former Smoker Cigarettes Comments: quit at age 17 Sex Assigned at Date Recorded Not on file documented as of this encounter Miscellaneous Notes Telephone Encounter - Shirley Pablo MD - 11/09/2016 2:20 PM EST 61-year-old male hypertension hyperlipidemia diabetes and recent stenting of his RCA, and circumflexalso has a significant lesion but a very small size vessel which was not intervened upon. He has been complaining of twinges of left-sided chest pain mostly occurring at rest and he feels good upon exertion. The pain occurs more when he is sitting upright and is not respirophasic. Importantly, as I mentioned above the pain does not occur at exertion. It has been associated with some shortness of breath for which he has been seen by his primary care doctor twice. However he hasn't seen hiscardiologist Dr. Oconnor. Last time when he was here about a month ago he underwent complex intervention of his proximal RCA (atherectomy). He was discharged on aspirin, ticagrelor and other appropriatemedical therapy. His vital signs are stable at outside hospital, he is chest pain-free. His BNP is 5 and his troponin is negative EKG sinus rhythm inferior Q waves which are chronic otherwise nonspecific ST changes (which have been there in the past). No changes of pericarditis. Plan: The pain does not sound cardiac, especially when it's doesn't occur at exertion. Emergency room doctor agrees with assessment. His first set of troponin is negative he will be getting another set. Requested to have him evaluated by outpatient polymerization oven tender Dr. Oconnor, and if needed we'll evaluatehim again at the [facility] cardiology. Shirley Pablo MD Communications Engineering Technician Pager # [phone] documented in this encounter Plan of Treatment Upcoming Encounters Date Type Specialty Care Team Description 03/25/2022 Anesthesia Event Surgery Catrachita Baez MD [facility] ANESTHESIOLOGY [place], [place] [address] (Wo rk) 12/15/2022 Office Visit Cardiology Damián Hart MD [facility] [place], [place] [address] (Wo rk) 03/25/2050 Hospital Encounter Surgery Citlalli Richardson MD Vocal cord paralysis [facility] OTOLARYNGOLOGY [place], [place] [address] (Wo rk) documented as of this encounter Visit Diagnoses Not on filedocumented in this encounter Care Teams Credit Historian Relationship Specialty Start Date End Date Librado Alvarado MD PCP - General 10/08/10 01/18/18 [address] [facility] [address] [place] [address] documented as of this encounter
--- OUTSIDE RECORDS SUMMARY | 2022-08-05 09:08 | XMS_ITS | Encounter Summary ---
:1955 Author Organization [facility] [place] [address] Care Team Providers Name Role Phone Librado Alvarado MD Primary Care Provider Encounter Details Date Type Department Care Team Description 03/02/2017 Ext Surgery or [facility] Benedicto Oconnor Chest pain, unspecified type; Single Event [facility] MD Latonya ASCVD (arteriosclerotic cardiovascular d isease) [address] [facility] [address] [address] [id number] Social History Tobacco Use Types Packs/Day Years Used Date Former Smoker Cigarettes Comments: quit at age 17 Sex Assigned at Date Recorded Not on file documented as of this encounter Plan of Treatment Upcoming Encounters Date Type Specialty Care Team Description 03/25/2022 Anesthesia Event Surgery Catrachita Baez MD [facility] ANESTHESIOLOGY [place], [place] [address] (Wo rk) 12/15/2022 Office Visit Cardiology Damián Hart MD [facility] [address] [place] [address] (Wo rk) 03/25/2050 Hospital Encounter Surgery Citlalli Richardson MD Vocal cord paralysis [facility] ER [place]ARYNGOLOGY [place] [address] (Wo rk) documented as of this encounter Procedures Procedure Name Priority Date/Time Associated Diagnosis Comme nts ECG SCAN 03/04/2017 12:00 Results for this AM EDT procedure are i n the results section. NM EXERCISE STRESS Routine 03/03/2017 Chest pain, Results f or this AND REST MYOCARDIAL unspecified type procedure are in PERFUSION ASCVD the results (arteriosclerotic section. cardiovascular disease) documented in this encounter Results SCAN DOC: ECG (03/04/2017 12:00 AM EDT) Narrative 03/04/2017 12:00 AM EDT This result has an attachment that is no t available. Ordered by an unspecified provider. Scanning Provider MEDIA MGR SCAN EXT ORDR/RSLT NM Myocardial Perfusion Stress Rest (03/03/2017) Anatomical Region Laterality Modality Other Narrative 03/03/2017 MIBI Exercise Stress Test- Final Report ?? Burton Mcnair Jr. : 1955 [facility], [address] [facility] [address] [place] [address] Primary Physician: ??Librado Alvarado MD ? ?Indication: [...] FACC ??Date: 03/03/20 17 Benedicto Oconnor Jr., IMG NM ORDERABLES documented in this encounter Visit Diagnoses Diagnosis Chest pain, unspecified type ASCVD (arteriosclerotic cardiovascular d isease) Unspecified cardiovascular disease Vocal cord paralysis Paralysis of vocal cords or larynx, unsp ecified documented in this encounter Care Teams Comfort Station Attendant Relationship Specialty Start Date End Date Librado Alvarado MD PCP - General 10/08/10 01/18/18 [address] [facility] [address] [place] [address] documented as of this encounter
--- OUTSIDE RECORDS SUMMARY | 2022-08-05 09:08 | XMS_ITS | Encounter Summary ---
:1955 [place] [address] Care Team Providers Name Role Phone Librado Alvarado MD Primary Care Provider Reason for Visit Auth/Cert Specialty Diagnoses / Procedures Referred By Contact Refer red To Contact Diagnoses Chest pain, unspecified Chest pain Procedures PRO CATH PLMT LEFT HEART CATH & ARTS W/INJ & ANGIO IMG S&I CARDIAC CATHETERIZATION Referral ID Status Reason Start Date Expiration Date Visits Requ ested Visits Authorized [id number] 1 1 Encounter Details Date Type Department Care Team Description 09/26/2016 Surgery Needle Board Repairer Alejandro Laws MD [place] [address] [place] [address] [phone] Social History Tobacco Use Types Packs/Day Years [...] Burton Mcnair Patient Age: 61 y.o. Language: Mohawk Race: White Ethnicity: Not nor Admit date: [...] therapy and bring him back to the labor operator for PCI with orbital atherectomy assistance. He returned to the cardiac labor operator on 09-26-16 and underwent orbital atherectomy with [...] appointments: -During 8am-5pm Thursday through Thursday call [phone] to speak with a nurse in the cardiology clinic -All other times call [phone] and ask to speak to the shampoo assistant functional analyst. MEDICATIONS - restart your metformin on 09/28/2016 [...] Primary care provider: Cardiology: Librado Alvarado MD [phone] Follow up as planned or as needed. Dr. Mariama Bravo [phone] 11-14-2016; 10:15 am check-in General Instructions None Future Appointments and Orders Future Appointments Provider Department Dept Phone 11/14/2016 10:30 AM Mariama Bravo MD Cardiology [phone] Discharge References/Attachments None documented in this encounter Discharge Instructions Patient InstructionsTahmina Leone MD - 09/26/2016 1:22 PM EST Cardiology Instructions Call your doctor if: Chest pain, dyspnea, pain or swelling in legs occurs. If you have non-emergent questions between now and the time of your follow up appointments: -During 8am-5pm Thursday through Thursday call [phone] to speak with a nurse in the cardiology clinic -All other times call [phone] and ask to speak to the shampoo assistant functional analyst. MEDICATIONS - restart your metformin on 09/28/2016 [...] Primary care provider: Cardiology: Librado Alvarado MD [phone] Follow up as planned or as needed. Dr. Mariama Bravo [phone] 11-14-2016; 10:15 am check-in AttachmentsThe following attachments cannot be sent through Care Everywhere.CAD (CORONARY ARTERY DISEASE): GENERAL INFO (NORWEGIAN)PCI (PERCUTANEOUS CORONARY INTERVENTION): POST-OP (NORWEGIAN)HEART ATTACK: MEDICINE TO REDUCE RISK (NORWEGIAN) documented in this encounter Medications at Time [...] plan to be broughtback to the cardiac labor operator tomorrow for PCI and intended use of [...] plan for PCI) Tahmina Leone MD Interventional Human Resources Office Manager Mariama Bravo MD - 09/25/2016 7:51 [...] Quigley MD 7:51 AM September 25, 2016 Human Resources Office Manager Pager # [phone] I interviewed and examined Mr. Mcnair on 09/25/16. I agree with the history, physical exam findings and clinical plan as outlined above. Plan for diagnostic coronary angiography with [facility] via right radial approach for stable angina. Mariama Bravo MD [facility] Interventional Cardiology Pager [phone] documented in this encounter Miscellaneous Notes Plan [...] to the outpatient cardiac rehabilitation program at [facility] was discussed. Patient agrees to a [...] Catrachita Baez MD [facility] ANESTHESIOLOGY [place], [place] [address] (Wo rk) 12/15/2022 Office Visit Cardiology Damián Hart MD [facility] [place], [place] [address] (Wo rk) 03/25/2050 Hospital Encounter Surgery Citlalli Richardson MD Vocal cord paralysis [facility] OTOLARYNGOLOGY [place], [place] [address] (Wo rk) Scheduled Referrals Name Type Priority Associated Diagnoses Order S chedule Referral to Outpatient Referral Routine S/P coronary artery O rdered: Cardiac Rehab stent placement 09/27/2016 documented as of this encounter Procedures Procedure Name Priority Date/Time Associated Diagnosis Comme nts COMMERCIAL LITIGATION ATTORNEY SCAN 09/28/2016 12:00 AM EST POCT GLUCOSE [...] STAT 09/26/2016 2:08 Results f or this ([facility]) PM EST procedure are i n the [...] Routine 09/26/2016 3:17 Results f or this ([facility]) AM EST procedure are i n the results section. CBC (WITH DIFF) Routine 09/26/2016 3:17 AM EST BASIC METABOLIC PANEL Routine 09/26/2016 3:17 Res ults for this (NON-FASTING) AM EST procedure are in the results section. POCT GLUCOSE Routine 09/26/2016 12:07 Results for this AM EST procedure are i n the results section. CARDIAC ENZYMES STAT 09/25/2016 9:04 Results f or this ([facility]) PM EST procedure are i n the [...] documented in this encounter Results SCAN DOC: COMMERCIAL LITIGATION ATTORNEY (09/28/2016 12:00 AM EST) Narrative This result has an attachment that is no t available. Scanning Provider MEDIA MGR SCAN EXT ORDR/RSLT POCT Glucose (09/27/2016 8:22 AM EST) P athologist Signature POC Glucose 159 65 - 199 [facility] mg/dL [facility] Comment: Supplemental ranges: <140 mg/dL before meals <180 mg/dL all other times of the day Specimen Anatomical Collection Method Collection Time Receive d Time (Source) Location / / Volume Laterality Blood specimen 09/27/2016 8:22 AM 016 8:22 (specimen) EST AM EST Mariama Bravo MD POINT OF CARE TEST ORDERABLE S Performing Organization Address City/[facility]/[place] [address] EKG 12 Lead (09/27/2016 7:27 AM EST) Component Value Ref Range Test Analysis Performed Pathologis t Method Time At Signature Ventricular rate 61 BPM MUSE SYSTEM Atrial Rate 61 BPM MUSE SYSTEM P-R Interval 210 ms MUSE SYSTEM QRS Duration 96 ms MUSE SYSTEM Q-T Interval 414 ms MUSE SYSTEM QTC Calculated 416 ms MUSE SYSTEM (Bezet) Calculated P [place] 46 degrees MUSE SYSTEM Calculated R [place] -18 degrees MUSE SYSTEM Calculated T [place] -21 degrees MUSE SYSTEM INTERPRETATION Sinus rhythm [...] Bravo MD ECG ORDERABLES Performing Organization Address City/[facility]/ZIP Code Phon e Number MUSE SYSTEM POCT Glucose (09/27/2016 4:19 AM EST) athologist Signature POC Glucose 152 65 - 199 [place] mg/dL [facility] Comment: Supplemental ranges: <140 mg/dL before meals <180 mg/dL all other times of the day Specimen Anatomical Collection Method Collection Time Receive d Time (Source) Location / / Volume Laterality Blood specimen 09/27/2016 4:19 AM 016 4:19 (specimen) EST AM EST Mariama Bravo MD POINT OF CARE TEST ORDERABLE S Performing Organization Address City/State/[place] [address] POCT Glucose (09/27/2016 12:12 AM EST) athologist Signature POC Glucose 131 65 - 199 [facility] [place] mg/dL [facility] Comment: Supplemental ranges: <140 mg/dL before meals <180 mg/dL all other times of the day Specimen Anatomical Collection Method Collection Time Receive d Time (Source) Location / / Volume Laterality Blood specimen 09/27/2016 12:12 6 (specimen) AM EST 12:12 AM EST Mariama Bravo MD POINT OF CARE TEST ORDERABLE S Performing Organization Address City/State/[place] [address] POCT Glucose (09/26/2016 8:22 PM EST) athologist Signature POC Glucose 150 65 - 199 [place] mg/dL [facility] Comment: Supplemental ranges: <140 mg/dL before meals <180 mg/dL all other times of the day Specimen Anatomical Collection Method Collection Time Receive d Time (Source) Location / / Volume Laterality Blood specimen 09/26/2016 8:22 PM 016 8:22 (specimen) EST PM EST Mariama Bravo MD POINT OF CARE TEST ORDERABLE S Performing Organization Address City/State/[place] [address] POCT Glucose (09/26/2016 4:20 PM EST) athologist Signature POC Glucose 157 65 - 199 [facility] mg/dL [facility] Comment: Supplemental ranges: <140 mg/dL before meals <180 mg/dL all other times of the day Specimen Anatomical Collection Method Collection Time Receive d Time (Source) Location / / Volume Laterality Blood specimen 09/26/2016 4:20 PM 016 4:20 (specimen) EST PM EST Mariama Bravo MD POINT OF CARE TEST ORDERABLE S Performing Organization Address City/[facility] [place] [address] Cardiac Enzymes (09/26/2016 2:08 PM EST) athologist Signature Troponin-T <0.03 <=0.03 [facility] ng/mL [facility] Comment: 0.03 ng/mL: Represents the [...] consensus document of the Joint Society of Cardiology/[place] College o f Cardiology Committee for the redefinition of myocardial infarction. ? ?Journal of the [place] College of Cardiology 2000; 36: 959-969] CK, Total 134 0 - 200 unit/L [facility] Specimen Anatomical Collection Method Collection Time Receive d Time (Source) Location / / Volume Laterality Blood specimen 09/26/2016 2:08 PM 016 2:22 (specimen) EST PM EST Resulting Agency Comment Spec In Lab Mary Juárez MD CHEMISTRY ORDERABLES Performing Organization Address City/[facility]/ZIP Code Phon e Number [address] POCT Glucose (09/26/2016 1:14 PM EST) P athologist Signature POC Glucose 121 65 - 199 [facility] mg/dL [facility] Comment: Supplemental ranges: <140 mg/dL before meals <180 mg/dL all other times of the day Specimen Anatomical Collection Method Collection Time Receive d Time (Source) Location / / Volume Laterality Blood specimen 09/26/2016 1:14 PM 016 1:14 (specimen) EST PM EST Mariama Bravo MD POINT OF CARE TEST ORDERABLE S Performing Organization Address City/State/[place] [address] [facility] [address] EKG 12 Lead (09/26/2016 11:03 AM EST) Component Value Ref Range Test Analysis Performed Pathologis t Method Time At Signature Ventricular rate 55 BPM MUSE SYSTEM Atrial Rate 55 BPM MUSE SYSTEM P-R Interval 216 ms MUSE SYSTEM QRS Duration 102 ms MUSE SYSTEM Q-T Interval 440 ms MUSE SYSTEM QTC Calculated 420 ms MUSE SYSTEM (Bezet) Calculated P [place] 45 degrees MUSE SYSTEM Calculated R [place] -12 degrees MUSE SYSTEM Calculated T [place] -12 degrees MUSE SYSTEM INTERPRETATION Sinus bradycardia [...] Signature POC Glucose 162 65 - 199 [facility] mg/dL [facility] Comment: Supplemental ranges: <140 mg/dL before meals <180 mg/dL all other times of the day Specimen Anatomical Collection Method Collection Time Receive d Time (Source) Location / / Volume Laterality Blood specimen 09/26/2016 10:48 6 (specimen) AM EST 10:48 AM EST Mariama Bravo MD POINT OF CARE TEST ORDERABLE S Performing Organization Address City/State/[place] [address] CARDIAC CATHETERIZATION (09/26/2016 10:38 AM EST) Anatomical Region Laterality Modality Other Specimen (Source) Anatomical Location Collection Method / Collectio n Time Received Time / Laterality Volume Narrative 09/26/2016 1:13 PM EST ?[facility] ? Cardiac Cathete rization/Intervention Report ? Patient Name: Xu Jr, Burton D. ? Procedure Date: 09/26/2016 ? A #: [id number] ? Primary Physician: Mariama Bravo ? Case #: [id number] ? File Name: [id number] ? Catheterization Order Number: [id number] ? [facility] ? Final Report [place], [place] ? Patient Name: ? Burton Nielsen [place] Jr ? ID#: ?[id number] ? : ?1955 ? Procedure Date: ? November 11, 20 16 ?Case #: ? [id number] ? Room: ? 6 ? Case Physicians: [...] with: sta ble angina (w/i 42 days). [place] ?Cardiovascular Society angina c lass was II. [...] the original. [facility] Cardiac Catheterization/Intervention Re port Patient Name: Burton Mcnair Jr Procedure Date: 09/26/2016 A #: [id number] Primary Physician: Mariama Bravo Case #: [id number] File Name: [id number] Catheterization Order Number: [id number] [facility] Lab [facility] Final Report [place], [place] Patient Name: Burton Mcnair Jr ID# : [id number] : 1955 Procedure Date: September 26, 2016 [...] with: stable yo na (w/i 42 days). [place] Cardiovascular Society angina class was II. This [...] for the procedure was Elective . [facility] indication for the procedure was Stable angina. [...] Dr. Rigoberto Wyatt M.D. [facility], atherectomy-coronary and stent insertio n-coronary. Mariama Bravo M.D. Electronically Signed by: Fox Payne Report Finalized: 09/26/2016 12:57 Report Last Ammended: 01/05/2017 15:09 Mariama Bravo MD CARDIAC CATH ORDERABLES POCT Glucose (09/26/2016 7:55 AM EST) athologist Signature POC Glucose 175 65 - 199 [facility] mg/dL [facility] Comment: Supplemental ranges: <140 mg/dL before meals <180 mg/dL all other times of the day Specimen Anatomical Collection Method Collection Time Receive d Time (Source) Location / / Volume Laterality Blood specimen 09/26/2016 7:55 AM 016 7:55 (specimen) EST AM EST Mariama Bravo MD POINT OF CARE TEST ORDERABLE S Performing Organization Address City/State/ZIP Code Phon e Number [place] [phone] Cardiac Enzymes (09/26/2016 3:17 AM EST) athologist Signature Troponin-T <0.03 <=0.03 [facility] ng/mL [facility] Comment: 0.03 ng/mL: Represents the [...] consensus document of the Joint Society of Cardiology/[place] College o f Cardiology Committee for the redefinition of myocardial infarction. ? ?Journal of the [place] College of Cardiology 2000; 36: 959-969] CK, Total 146 0 - 200 unit/L [facility] Specimen Anatomical Collection Method Collection Time Receive d Time (Source) Location / / Volume Laterality Blood specimen Venous Draw / 09/26/2016 3:17 AM 2015 3:42 (specimen) Unknown EST AM EST Resulting Agency Comment Spec In Lab Mariama Bravo MD CHEMISTRY ORDERABLES Performing Organization Address City/State/ZIP Code Phon e Number [place] [phone] Differential, Automated (09/26/2016 3:17 AM EST) P athologist Signature Neutrophils % 60.8 % [facility] Neutr Abs (ANC) 2.79 1.70 - [facility] 6.10 [facility] x10(3)/[facility] LABORATORY Lymphocytes % 28.1 % [facility] Lymphocytes Abs 1.3 0.9 - 3.2 [facility] x10(3)/[facility] LABORATORY Monocytes % 8.9 % [facility] Monocyte Abs 0.4 0.3 - 0.9 [facility] x10(3)/[facility] LABORATORY Eosinophils % 1.3 % [facility] Eosinophils Abs 0.1 0.0 - 0.4 [facility] x10(3)/[facility] LABORATORY Basophils % 0.7 % [facility] Basophils Abs 0.0 0.0 - 0.1 [facility] x10(3)/[facility] LABORATORY Immature Gran % 0.20 % [facility] Comment: Immature granulocytes(IG's)percentage an d absolute count will include metamyelocytes, myelocytes, and promyelo cytes. Blood smears from CBCs yielding IG's will be scanned manually for concor dance. If this scan disagrees with the automated IG or if promyelocytes are not ed, a manual differential will be performed. Nikole Gran Abs 0.01 0.00 - 0.04 x10(3)/[facility] LABORATORY Specimen Anatomical Collection Method Collection Time Receive d Time (Source) Location / / Volume Laterality Blood specimen 09/26/2016 3:17 AM 016 3:42 (specimen) EST AM EST Resulting Agency Comment Spec In Lab Mariama Bravo MD HEMATOLOGY ORDERABLES Performing Organization Address City/State/ZIP Code Phon e Number [address] (ABNORMAL) Hemogram (09/26/2016 3:17 AM EST) Analysis Performed At Patho logist Time Signature WBC 4.6 4.0 - 9.5 [facility] x10(3)/[facility] LABORATORY RBC 3.97 (L) 4.58 - [place] 5.54 [facility] x10(6)/[facility] LABORATORY Hemoglobin 12.5 (L) 13.7 - [facility] 16.5 gm/dL [facility] Hematocrit 35.3 (L) 40.5 - [facility] 48.5 % [facility] MCV 88.9 82.9 - [facility] 93.1 [facility] LABORATORY MCH 31.5 27.5 - [facility] 32.1 pg [facility] MCHC 35.4 32.0 - [facility] 35.7 gm/dL [facility] Platelets 115 (L) 145 - 357 [facility] x10(3)/[facility] LABORATORY RDWSD 37.6 36.0 - [facility] 45.0 [facility] LABORATORY RDWCV 11.7 11.4 - [facility] 13.8 % [facility] MPV 9.6 7.6 - 12.9 [facility] LABORATORY nRBC % Auto 0.0 % [facility] nRBC Abs Auto 0.000 0.000 - [facility] 0.000 [facility] x10(3)/[facility] LABORATORY Specimen Anatomical Collection Method Collection Time Receive d Time (Source) Location / / Volume Laterality Blood specimen 09/26/2016 3:17 AM 016 3:42 (specimen) EST AM EST Resulting Agency Comment Spec In Lab Mariama Bravo MD HEMATOLOGY ORDERABLES Performing Organization Address City/State/[place] [address] (ABNORMAL) Basic Metabolic Panel (non-fasting) (09/26/2016 3:17 AM EST) P athologist Signature Glucose Lvl 145 65 - 199 [facility] mg/dL [facility] Comment: Diabetes: >=200 mg/dL plus symp toms BUN 14 10 - 20 mg/dL [facility] Creatinine 0.79 (L) 0.80 - 1.50 mg/dL [facility] Comment: Please note that the pediatric reference intervals supplied above were not validated at [facility]. Results from pediatri c patients should be interpreted in conjunction to the patient's age, height and muscle mass. Sodium 141 135 - 145 mmol/L [facility] Potassium 4.1 3.5 - 5.0 mmol/L [facility] Comment: Please note: ??Patients with WBC >100,00 0 may have falsely elevated Potassium levels. ??For accurate Potassium quantif ication in these patients send serum separator tube (gold top) for subsequent determinations. ??Contact the Clinical Chemistry Laboratory if there are any qu estions. Chloride 103 98 - 107 mmol/L [facility] CO2 24 22 - 31 mmol/L [facility] Anion Gap 14 5 - 15 mmol/L [facility] Calcium 8.5 8.5 - 10.5 mg/dL [facility] Estimated GFR >60 >=60 [facility] Comment: This estimated GFR (eGFR) [...] the following links into your internet browser. [email or web address] Specimen Anatomical Collection Method Collection Time Receive d Time (Source) Location / / Volume Laterality Blood specimen 09/26/2016 3:17 AM 016 3:42 (specimen) EST AM EST Resulting Agency Comment Spec In Lab Mariama Bravo MD CHEMISTRY ORDERABLES Performing Organization Address City/State/ZIP Code Phon e Number [address] POCT Glucose (09/26/2016 12:07 AM EST) athologist Signature POC Glucose 135 65 - 199 [place] mg/dL [facility] Comment: Supplemental ranges: <140 mg/dL before meals <180 mg/dL all other times of the day Specimen Anatomical Collection Method Collection Time Receive d Time (Source) Location / / Volume Laterality Blood specimen 09/26/2016 12:07 6 (specimen) AM EST 12:07 AM EST Mariama Bravo MD POINT OF CARE TEST ORDERABLE S Performing Organization Address City/[facility]/ZIP Code Phon e Number [address] Cardiac Enzymes (09/25/2016 9:04 PM EST) athologist Signature Troponin-T <0.03 <=0.03 [facility] ng/mL [facility] Comment: 0.03 ng/mL: Represents the [...] consensus document of the Joint Society of Cardiology/[place] College o f Cardiology Committee for the redefinition of myocardial infarction. ? ?Journal of the [place] College of Cardiology 2000; 36: 959-969] CK, Total 183 0 - 200 unit/L [facility] Specimen Anatomical Collection Method Collection Time Receive d Time (Source) Location / / Volume Laterality Blood specimen 09/25/2016 9:04 PM 016 9:15 (specimen) EST PM EST Resulting Agency Comment Spec In Lab Mary Juárez MD CHEMISTRY ORDERABLES Performing Organization Address City/[facility]/ZIP Code Phon e Number [address] POCT Glucose (09/25/2016 8:34 PM EST) P athologist Signature POC Glucose 97 65 - 199 [facility] mg/dL [facility] Comment: Supplemental ranges: <140 mg/dL before meals <180 mg/dL all other times of the day Specimen Anatomical Collection Method Collection Time Receive d Time (Source) Location / / Volume Laterality Blood specimen 09/25/2016 8:34 PM 016 8:34 (specimen) EST PM EST Mariama Bravo MD POINT OF CARE TEST ORDERABLE S Performing Organization Address City/[facility]/ZIP Code Phon e Number [address] POCT Glucose (09/25/2016 5:04 PM EST) athologist Signature POC Glucose 182 65 - 199 [facility] mg/dL [facility] Comment: Supplemental ranges: <140 mg/dL before meals <180 mg/dL all other times of the day Specimen Anatomical Collection Method Collection Time Receive d Time (Source) Location / / Volume Laterality Blood specimen 09/25/2016 5:04 PM 016 5:04 (specimen) EST PM EST Mariama Bravo MD POINT OF CARE TEST ORDERABLE S Performing Organization Address City/[facility]/ZIP Code Phon e Number [address] EKG 12 Lead (09/25/2016 8:11 AM EST) Component Value Ref Range Test Analysis Performed Pathologis t Method Time At Signature Ventricular rate 58 BPM MUSE SYSTEM Atrial Rate 58 BPM MUSE SYSTEM P-R Interval 198 ms MUSE SYSTEM QRS Duration 86 ms MUSE SYSTEM Q-T Interval 428 ms MUSE SYSTEM QTC Calculated 420 ms MUSE SYSTEM (Bezet) Calculated P [place] 51 degrees MUSE SYSTEM Calculated R [place] -14 degrees MUSE SYSTEM Calculated T [place] -20 degrees MUSE SYSTEM INTERPRETATION Sinus bradycardia [...] Signature POC Glucose 154 65 - 199 [facility] mg/dL [facility] Comment: Supplemental ranges: <140 mg/dL before meals <180 mg/dL all other times of the day Specimen Anatomical Collection Method Collection Time Receive d Time (Source) Location / / Volume Laterality Blood specimen 09/25/2016 6:43 AM 016 6:43 (specimen) EST AM EST Mariama Bravo MD POINT OF CARE TEST ORDERABLE S Performing Organization Address City/State/ZIP Code Phon e Number [place] [phone] documented in this encounter [...] Routine fentaNYL 50 mcg/mL multi-dose injection Given 09/26/2016 8:54 AM EST 25 mcg ONCE PRN, Starting on Thu09/26/16 at 0854, Until Thu09/26/16 at 1137, Cath (Intra-Procedure), Routine Given 09/26/2016 8:40 AM EST 50 mcg glucagon (human recombinant) [...] the active insulin. heparin (porcine) injection Given 09/26/2016 9:33 AM EST 1,000 Units ONCE PRN, Starting on Thu09/26/16 at 0844, Until Thu09/26/16 at 1137, Cath (Intra-Procedure), Routine Given 09/26/2016 8:44 AM EST 6,000 Units heparin (porcine) subcutaneous injection Given 016 6:00 AM EST 5,000 Units 5,000 Units 5,000 Units, Subcutaneous, EVERY 8 HOURS SCHEDULED, First dose on Thu09/25/16 at 1600, Until Discontinued, Routine Given 09/26/2016 [...] Units iohexol (OMNIPAQUE) 350 mg/mL solution Given 09/26/2016 10:30 AM EST 120 mLs ONCE PRN, Starting on Thu09/26/16 at 1030, Until Thu09/26/16 at 1137, [...] midazolam (PF) (VERSED) 1 mg/mL multi-dose Given 09/26/2016 8:54 AM EST 1 mg injection ONCE PRN, Starting on Thu09/26/16 at 0854, Until Thu09/26/16 at 1137, Cath (Intra-Procedure), Routine Given 09/26/2016 8:40 AM EST 1 mg nitroGLYcerin (NITROSTAT) SL [...] hours., Routine nitroGLYcerin 100 mcg/mL intracoronary Given 09/26/2016 10:16 AM EST 200 mcg dilution ONCE PRN, Starting on Thu09/26/16 at 1016, Until Thu09/26/16 at 1137, Cath (Intra-Procedure), Routine sodium chloride 0.9 % flush 5 mL Given 09/27/2016 9:04 AM EST 5 mLs 5 mL, Intravenous, 2 TIMES DAILY, First dose on Thu09/25/16 at 0945, Until Discontinued, Routine Given 09/26/2016 [...] prov ided on this medication record., Routine ticagrelor (BRILINTA) tablet 90 mg Given 09/27/2016 8:58 AM EST 90 mg 90 mg, Oral, 2 TIMES DAILY, First dose on Thu09/26/16 at 2100, Until Discontinued, After initial loading dose of aspirin (usually 325 mg), use ticagrelor with daily maintenance dose of aspirin of 81 mg , Routine Given 09/26/2016 9:00 PM EST 90 mg ticagrelor (BRILINTA) tablet Given 09/26/2016 8:30 AM EST 90 mg ONCE PRN, Starting on Thu09/26/16 at 0830, Until Thu09/26/16 at 1137, [...] mg 0803 (Given - Pr ovider: Pili Enriquez, ESTEFANIA)0843 (MAR Hold - Provider: Admin Adt - Reason: Transfer to a Procedural area)1307 (MAR Unhold - Provider: Admin Adt) 0857 (Given [...] Alice Sellers RN)2224 (Given - Provider: Azra Roberts RN) 0619 (Given - Provider: Azra Roberts RN)0843 (MAR Hold - Provider: Admin Adt - Reason: Transfer to a Procedural area)1307 (MAR Unhold - Provider: Admin Adt) 0600 (Given - Provider: Alice Sellers RN) 5,000 Units, Subcutaneous, EVERY 8 HOURS SCHEDULED, First dose on Myrna 09/25/16 at 1600, Until Discontinued, Routine 1400 (Not [...] First dose on Thu09/25/16 at 1130, Until Discontinued, CORRECTION BOLUS Sensitive [...] not met)0400 (Not Given - Provider: Azra Roebrts RN - Reason: NPO - Comment: FS 145, pt NPO)0804 (Given - Provider: Pili Enriquez RN) 0000 (Not Given - Provider: Alice draper RN - Reason: Contraindicated)0400 (Given - Provider: Alice Sellers RN)0905 (Given - Provider: Macey Phelps, ESTEFANIA)1200 (Due - Provider: Admin Adt) 1-4 Units, Subcutaneous, EVERY 4 HOURS S CHEDULED, First dose on Thu09/25/16 at 0945, Until Discontinued, CORRECTION BOLUS Sensitive [...] gr 1328 (Not Given - Provider: Pili nEriquez RN - Reason: Order parameters not met - Comment: BS 121)1631 (Given - Provider: Pili Enriquez RN)2000 (Given - Provider: Alice Sellers RN) eater than 240, repeat 4 units (no more than three times) & call for new basal insulin orders. If less than 240 after two hours, give no insulin and resume prior schedule., Routine lisinopril (PRINIVIL;ZESTRIL) tablet 40 mg 0843 (MAR Hold - Provider: Admin Adt - Reason: Transfer to a Procedural area)0900 (Automatically Held - Provider: Admin Adt)1307 (MAR Unhold - Provider: Admin Adt)1350 (Given - Provider: Pili Enriquez, ESTEFANIA) 0857 (Given - Provider: Macey Phelps, ESTEFANIA) 40 mg, Oral, DAILY, First dose on Thu at 0900, Until Discontinued, Routine meTOPROLOL succinate (TOPROL-XL) XL tablet 50 mg 0803 (Given - Provider: Pili Enriquez RN)0843 (MAR Hold - Provider: Admin Adt - Reason: Transfer to a Procedural area)1307 (MAR Unhold - Provider: Admin Adt) 0857 (Given - Provider: Macey Phelps, ESTEFANIA) 50 mg, Oral, DAILY, First dose on Thu at 0900, Until Discontinued, DO NOT CRUSH OR OPEN, Routine simvastatin (ZOCOR) tablet 40 mg (CANCELED) 2038 (Give n - Provider: Azra Roberts RN) 0843 (MAR Hold - Provider: Admin Adt - R [...] 24 hours., Routine aspirin chewable tablet (CANCELED) 08 (Given - Provi connie: Slime Borges RN) ONCE PRN, Starting Myrna 09/25/16 at 0821, Until Myrna 09/25/16 at 1502, Cath (Intra-Procedure), Routine dextrose 50% injection 25-50 mL(Linked Group 3) 0843 (JAN Hold - Provider: Admin Adt - Reason: Transfer to a Procedural area)1307 (JAN Unhold - Provider: Admin Adt) 25-50 mL [...] ONCE PRN, Starting Thu09/26/16 at 0854, Until 09/26/16 at 1137, Cath (Intra-Procedure), Routine glucagon (human recombinant) injection 1 mg(Linked Group 3) 0843 (JAN Hold - Provider: Admin Adt - Reason: Transfer to a Procedural area)1307 (MAR Unhold - Provider: Admin Adt) 1 mg, [...] yassine: Slime Borges RN) ONCE PRN, Starting Myrna 09/25/16 at 0831, Until Myrna 09/25/16 at 1502, Cath (Intra-Procedure), Routine heparin (porcine) injection (CANCELED) 0 844 (Given - Provider: Johnathon Lora)0933 (Given - Provider: Jayda Villeda) ONCE PRN, Starting 09/26/16 at 0844, Until 09/26/16 at 1137, Cath (Intra-Procedure), Routine iohexol (OMNIPAQUE) 350 mg/mL solution (CANCELED) 0910 (Given - Provider: Mariama Bravo MD) ONCE PRN, Starting Thu09/25/16 at 0910, Until Myrna 09/25/16 at 1502, Cath (Intra-Procedure), Routine iohexol (OMNIPAQUE) 350 mg/mL solution (CANCELED) 1030 (Given - Provider: Mariama Bravo MD) ONCE PRN, Starting Thu09/26/16 at 1030, Until Thu09/26/16 at 1137, Cath (Intra-Procedure), Routine lidocaine (XYLOCAINE) 10 mg/mL (1 %) injection 3 mg 0843 (JAN Hold - Provider: Admin Adt - Reason: Transfer to a Procedural area)1307 ([facility] Unhold - Provider: Admin Adt) 3 mg (0.3 mL), Subcutaneous, ONCE PRN, 1 dose, Starting Thu09/25/16 at 0704, Until 09/27/16 at 1428, with discomfort with PIV insertion, Routine lidocaine (XYLOCAINE) 10 mg/mL (1 %) injection 3 mg 0843 ([facility] Hold - Provider: Admin Adt - Reason: Transfer to a Procedural area)1307 ([facility] Unhold - Provider: Admin Adt) 3 mg (0.3 mL), Subcutaneous, ONCE PRN, 1 dose, Starting Thu09/25/16 at 0914, Until 09/27/16 at 1428, for discomfort with PIV insertion, Routine midazolam (PF) (VERSED) 1 mg/mL multi-dose injection ( CANCELED) 0821 (Given - Provider: Slime Borges, ESTEFANIA)0847 (Given - Provider: Slime Borges RN) ONCE PRN, Starting Thu09/25/16 at 0821, Until Thu09/25/16 at 1502, Cath (Intra-Procedure), Routine midazolam (PF) (VERSED) 1 mg/mL multi-dose injection (CANCEL ED) 0840 (Given - Provider: Jayda Villeda)0854 (Given - Provider: Johnathon Lora) ONCE PRN, Starting Thu09/26/16 at 0854, Until Thu09/26/16 at 1137, Cath (Intra-Procedure), Routine nitroGLYcerin (NITROSTAT) SL tablet 0.4 mg 0843 (JAN Hold - Provider: Admin Adt - Reason: Transfer to a Procedural area)1307 (MAR Unhold - Provider: Admin Adt) 0.4 mg, [...] ONCE PRN, Starting Thu09/26/16 at 1016, Until 09/26/16 at 1137, Cath (Intra-Procedure), Routine sodium chloride 0.9 % flush 5-20 mL 0843 (MAR Hold - Provider: Admin Adt - Reason: Transfer to a Procedural area)1307 ([facility] Unhold - Provider: Admin Adt) 5-20 mL, Intravenous, EVERY 1 MIN PRN, S tarting Myrna 09/25/16 at 0914, Until 09/27/16 at 1428, flush, Flush pertains to all indwelling lines. Flush per protocol found in the job aid using the link provided on this medication record., Routine sodium chloride 0.9% infusion (CANCELED) 0835 (New Bag - Provider: Slime Borges, ESTEFANIA) CONTINUOUS PRN, Starting Myrna 09/25/16 at 0835, [...] (Intra-Procedure), Routine zolpidem (AMBIEN) tablet 5 mg 7 (Given - Prov ider: Alice Sellers RN) [...] Routine, EVERY 4 HOURS, First occurrence on Thu09/25/16 at 1200, Until Specified
Consider choosing EVERY [...]
Routine documented in this encounter Care Teams Refrigeration Mechanic Relationship Specialty Start Date End Date Librado Alvarado MD PCP - General 10/08/10 01/18/18 [address] [facility] [address] [place] [id number] documented as of this encounter
--- OUTSIDE RECORDS SUMMARY | 2022-08-05 09:08 | XMS_ITS | Encounter Summary ---
:1955 Author Organization [facility] [place] [address] Care Team Providers Name Role Phone Librado Alvarado MD Primary Care Provider Encounter Details Date Type Department Care Team Description 11/11/[address] [facility] Benedicto Oconnor Jr., MD [address] [place] [address] [place] [phone] [place], [place] [id number] (Wo rk) Social History Tobacco Use Types Packs/Day Years Used Date Former Smoker Cigarettes Comments: quit at age 17 Sex Assigned at Date Recorded Not on file documented as of this encounter Miscellaneous Notes Telephone Encounter - Benedicto Oconnor Jr., MD - 11/13/2016 8:23 AM EST Ok to be seen Thursday as negative ER workup Telephone Encounter - Shania Montenegro RN - 11/11/2016 9:25 AM EST Called Baljinder back, was in the ER and they told him they did not feel it was cardiac, he does not havethe pain while active, but gets it and SOB when sitting or lying in bed. Also describes it as spasms. He says that he has seen Dr. Alvarado twice recently and he has given him some lasix. He has an appointment with Dr. Bravo on Thursday so I asked him to call to see if she can see him sooner and if not to call me back and I can give him an appointment when Dr. Oconnor is back from vacation on . We have scanned his records from the ER. Telephone Encounter - Courtney Jordan - 11/11/2016 8:40 AM EST Pt in [facility] ER Nov 09 for CP Called for Er records Has appt w/ Dr Alvarado on Thu [place] [facility] [place] that did his Cath for F/U of procedure Pt knows Dr. Oconnor gone to documented in this encounter Plan of Treatment Upcoming Encounters Date Type Specialty Care Team Description 03/25/2022 Anesthesia Event Surgery Catrachita Baez MD [facility] [place], [place] [address] (Wo rk) 12/15/2022 Office Visit Cardiology Damián Hart MD [facility] [address] [place] [address] (Wo rk) 03/25/2050 Hospital Encounter Surgery Citlalli Richardson MD Vocal cord paralysis [facility] OTOLARYNGOLOG[facility] [place], [place] [address] (Wo rk) documented as of this encounter Visit Diagnoses Not on filedocumented in this encounter Care Teams Appointment Specialist Relationship Specialty Start Date End Date Librado Alvarado MD PCP - General 10/08/10 01/18/18 [address] [facility] [address] [place] [address] documented as of this encounter
[2022-08-07 08:54] VITALS: BP 138/80; PULSE 83
[2022-08-12 08:52] VITALS: BP 141/83; PULSE 85
[2022-08-14 08:58] VITALS: BP 147/85; PULSE 78
== END 2022-08-15 23:59 | disposition home or self-care (01) ==
LOC: CR 08:57
PROVIDERS: PCP Family Medicine; Visit Provider Internal Medicine Cardiovascular Disease
DX: R69 Illness, unspecified (principal)

== ENCOUNTER 2022-09-11 08:56 | Outpatient (RCR) | payer SELFPAY ==
[2022-08-16 00:03] VITALS: BP 147/85; PULSE 78
[2022-08-19 09:05] VITALS: BP 142/79; PULSE 80
[2022-08-26 09:01] VITALS: BP 150/88; PULSE 78
[2022-08-28 09:30] VITALS: BP 148/83; PULSE 80
[2022-09-02 08:59] VITALS: BP 117/57; PULSE 61
[2022-09-09 08:51] VITALS: BP 150/86; PULSE 82
[2022-09-11 08:51] VITALS: BP 142/85; PULSE 86
== END 2022-09-15 23:59 | disposition home or self-care (01) ==
LOC: CR 08:56
PROVIDERS: PCP Family Medicine; Visit Provider Internal Medicine Cardiovascular Disease
DX: R69 Illness, unspecified (principal)
CPT/HCPCS: S9472

== ENCOUNTER 2022-10-14 08:41 | Outpatient (RCR) | payer SELFPAY ==
[2022-09-16 00:02] VITALS: BP 142/85; PULSE 86
[2022-09-16 11:37] VITALS: BP 150/84; PULSE 86
[2022-09-18 09:02] VITALS: BP 151/81; PULSE 87
[2022-09-23 08:48] VITALS: BP 138/85; PULSE 80
[2022-09-30 08:56] VITALS: BP 155/90; PULSE 92
[2022-10-02 08:41] VITALS: BP 153/88; PULSE 91
[2022-10-07 08:44] VITALS: BP 146/81; PULSE 82
--- OUTSIDE RECORDS SUMMARY | 2022-10-07 08:50 | XMS_ITS | Continuity of Care Document ---
:1955 Author Organization [facility] e Address [address] [place] [address] Care Team Providers Name Role Phone Vladimir Mcgraw DO Primary Care Physician Encounter [facility] NBR [id number] Date(s): 10/03/22 - 10/03/[address] [address]- Encounter Diagnosis Post-operative complication (Discharge Diagnosis) - 10/03/22 Discharge Disposition: Home f/u External Provider Attending Physician: Erik Baptiste DO Admitting Physician: Erik Baptiste DO Allergies, Adverse Reactions, Alerts Substance Reaction Severity Status lisinopril Unknown Active albumin human Unknown Active Assessment and Plan Diagnostic Tests PendingWound Culture 10/03/22 Functional Status 10/03/22 Family Member Travel History No recent travel Recent Travel History No recent travel Other exposure to Infectious Disease None Immunizations Given and Recorded Vaccine Date Status Refusal Reason SARS-CoV-2 mRNA (tozinameran 12y+) bival 08/22/22 Recorde d Medications cephalexin 500 mg oral tablet 500 mg = 1 tab, Oral, every 8 hr, # 21 tab, 0 Refill(s), Pharmacy: [facility] #[id number], 185.42, cm, 10/03/22 7:41:00 EST, Height/Length Dosing, 90.72, kg, 10/03/22 7:41:00 EST, Weight Dosing Start Date: 10/03/22 Stop Date: 10/10/22 Status: OrderedmetFORMIN 1000 mg oral tablet 1,000 mg = 1 tab, Oral, BID, with meals, # 180 tab, 4 Refill(s), Pharmacy: [facility] #[id number] Start Date: 09/04/22 Stop Date: 11/28/23 Status: Orderedmetoprolol tartrate 50 mg oral tablet 50 mg = 1 tab, Oral, BID, # 180 tab, 4 Refill(s), Pharmacy: [facility] #[id number] Start Date: 09/25/22 Stop Date: 12/19/23 Status: Ordered Problem List No Known Problems Vital Signs Most recent to oldest [Reference Range]: 1 2 Temperature Tympanic [36.6-37.9 Deg C] 37.1 Deg C 3 7.2 Deg C (10/03/22 8:34 AM) (10/03/22 7:20 AM) Peripheral Pulse Rate [60-100 bpm] 82 bpm 84 bp m (10/03/22 8:34 AM) (10/03/22 7:20 AM) Blood Pressure [90-140/60-90 mmHg] 142/82 mmHg 148/1 19 mmHg *HI* *HI* (10/03/22 8:34 AM) (10/03/22 7:20 AM) Weight 90.72 kg (10/03/22 7:20 AM) Weight Dosing 90.72 kg (10/03/22 7:41 AM) Height 185.420 cm (10/03/22 7:20 AM) Height/Length Dosing 185.420 cm (10/03/22 7:41 AM) Body Mass Index 26.000 kg/m2 (10/03/22 7:20 AM) Social History Social History Type Response Tobacco Never tobacco user Tobacco U se:. Sex Hospital Discharge Instructions Patient Cpjpehzya34/18/2022 08:05:10Skin AbscessSkin Abscess A skin abscess is an infected area on or under your skin that contains a collection of pus and othermaterial. An abscess may also be called a furuncle, carbuncle, or boil. An abscess can occur in or on almost any part of your body. Some abscesses break open (rupture) on their own. Most continue to get worse unless they are treated. The infection can spread deeper into the body and eventually into your blood, which can make you feel ill. Treatment usually involves draining the abscess. What are the causes? An abscess occurs when germs, like bacteria, pass through your skin and cause an infection. This maybe caused by: ??? A scrape or cut on your skin. ??? A puncture wound through your skin, including a needle injection or insect bite. ??? Blocked oil or sweat glands. ??? Blocked and infected hair follicles. ??? A cyst that forms beneath your skin (sebaceous cyst) and becomes infected. What increases the risk? This condition is more likely to develop in people who: ??? Have a weak body defense system (immune system). ??? Have diabetes. ??? Have dry and irritated skin. ??? Get frequent injections or use illegal IV drugs. ??? Have a foreign body in a wound, such as a splinter. ??? Have problems with their lymph system or veins. What are the signs or symptoms? Symptoms of this condition include: ??? A painful, firm bump under the skin. ??? A bump with pus at the top. This may break through the skin and drain. Other symptoms include: ??? Redness surrounding the abscess site. ??? Warmth. ??? Swelling of the lymph nodes (glands) near the abscess. ??? Tenderness. ??? A sore on the skin. How is this diagnosed? This condition may be diagnosed based on: ??? A physical exam. ??? Your medical history. ??? A sample of pus. This may be used to find out what is causing the infection. ??? Blood tests. ??? Imaging tests, such as an ultrasound, CT scan, or MRI. How is this treated? A small abscess that drains on its own may not need treatment. Treatment for larger abscesses may include: ??? Moist heat or heat pack applied to the area several times a day. ??? A procedure to drain the abscess (incision and drainage). ??? Antibiotic medicines. For a severe abscess, you may first get antibiotics through an IV and thenchange to antibiotics by mouth. Follow these instructions at home: Medicines ??? Take neaq-qgl-buincsg and prescription medicines only as told by your health care provider. ??? If you were prescribed an antibiotic medicine, take it as told by your health care provider. Do not stop taking the antibiotic even if you start to feel better. Abscess care ??? If you have an abscess that has not drained, apply heat to the affected area. Use the heat source that your health care provider recommends, such as a moist heat pack or a heating pad. ??? Place a towel between your skin and the heat source. ??? Leave the heat on for 20???30 minutes. ??? Remove the heat if your skin turns bright red. This is especially important if you are unable tofeel pain, heat, or cold. You may have a greater risk of getting burned. ??? Follow instructions from your health care provider about how to take care of your abscess. Make sure you: ??? Cover the abscess with a bandage (dressing). ??? Change your dressing or gauze as told by your health care provider. ??? Wash your hands with soap and water before you change the dressing or gauze. If soap and water are not available, use hand safety specialist. ??? Check your abscess every day for signs of a worsening infection. Check for: ??? More redness, swelling, or pain. ??? More fluid or blood. ??? Warmth. ??? More pus or a bad smell. General instructions ??? To avoid spreading the infection: ??? Do not share personal care items, towels, or hot tubs with others. ??? Avoid making skin contact with other people. ??? Keep all follow-up visits as told by your health care provider. This is important. Contact a health care provider if you have: ??? More redness, swelling, or pain around your abscess. ??? More fluid or blood coming from your abscess. ??? Warm skin around your abscess. ??? More pus or a bad smell coming from your abscess. ??? A fever. ??? Muscle aches. ??? Chills or a general ill feeling. Get help right away if you: ??? Have severe pain. ??? See red streaks on your skin spreading away from the abscess. Summary ??? A skin abscess is an infected area on or under your skin that contains a collection of pus and other material. ??? A small abscess that drains on its own may not need treatment. ??? Treatment for larger abscesses may include having a procedure to drain the abscess and taking anantibiotic. This information is not intended to replace advice given to you by your health care provider. Make sure you discuss any questions you have with your health care provider. Document Revised: 02/23/2020 Document Reviewed: 12/16/2018 [employer] Patient Education ?? 2021 [employer]. Follow Up Care10/03/2022 07:20:06With:FACUNDO FALLON Address: [address] [place] [phone]- When:10/05/2022 Comments:Please keep your appointment with Dr. Fallon on Thursday as previously scheduled. ??Take Keflex 500 mg 3times a day??until evaluated by Dr. Fallon.?? I wrote you a 7-day prescription.?? Return to emergency department with any signs/symptoms of??worsening illness including spreading redness, worsening pain,worsening swelling,??intractable nausea/vomiting or??fever/chills.[facility] Discharge instructions Erik Baptiste DO: PERFORM Event Display: ED Discharge Information Authored Date: [id number] VINOD OCHOA :1955 Age:67 years Sex:Male Visit Date:10/03/2022 Primary Care Physician: Vladimir Mcgraw DO Discharge Instructions We would like to thank you for allowing us to assist you with your healthcare needs. The following includes patient education materials and information regarding your injury/illness. Diagnosis from Today's Visit Post-operative complication Discharge Vitals Temperature??(Tympanic) 98.8 ??F (37.1 ??C) Heart Rate??(Peripheral) 82 Blood Pressure?? 142/82?? Height?? 73.00 in (185.420 cm) Weight?? 200.04 lb (90.72 kg) BMI?? 26.000 Allergies albumin human lisinopril What to Do Next You Need to Schedule the Following Appointments Follow Up with??FACUNDO FALLON When:??In 3 days 10/06/2022 EST Why: Please keep your appointment with Dr. Fallon on Thursday as previously scheduled. ??Take Keflex 500 mg 3 times a day??until evaluated by Dr. Fallon.?? I wrote you a 7-day prescription.?? Return to emergency department with any signs/symptoms of??worsening illness including spreading redness, worseningpain, worsening swelling,??intractable nausea/vomiting or??fever/chills. Where: [address] [place] [address]- You were treated today on an emergency basis; it may be burton to contact your primary care provider to notify them of your visit today. You may have been referred to your regular doctor or a specialist,please follow up as instructed. If your condition worsens or you can't get in to see the doctor, contact the Emergency Department. Medications What How Much When Why Instructions Next Dose New cephalexin (cephalexin 500 mg oral tablet) 1 tab Oral (given by mouth) Every 8 hours Post-operative complication Duration: 7 Days Pickup at [facility] #[id number] Unchanged metFORMIN (metFORMIN 1000 mg oral tablet) 1 tab Oral (given by mouth) 2 times a day Duration: 90 Days with meals ?? Unchanged metoprolol (metoprolol tartrate 50 mg oral tablet) 1 tab Oral (given by mouth) 2 times a day Duration: 90 Days Pharmacy Information [facility] #[id number]: [address], [place] [phone] Education [employer] Skin Abscess A skin abscess is an infected area on or under your skin that contains a collection of pus and other material. An abscess may also be called a furuncle, carbuncle, or boil. An abscess can occur in or on almost any part of your body. Some abscesses break open (rupture) on their own. Most continue to get worse unless they are treated. The infection can spread deeper into the body and eventually into your blood, which can make you feel ill. Treatment usually involves draining the abscess. What are the causes? An abscess occurs when germs, like bacteria, pass through your skin and cause an infection. This may be caused by: ? A scrape or cut on your skin. ? A puncture wound through your skin, including a needle injection or insect bite. ? Blocked oil or sweat glands. ? Blocked and infected hair follicles. ? A cyst that forms beneath your skin (sebaceous cyst) and becomes infected. What increases the risk? This condition is more likely to develop in people who: ? Have a weak body defense system (immune system). ? Have diabetes. ? Have dry and irritated skin. ? Get frequent injections or use illegal IV drugs. ? Have a foreign body in a wound, such as a splinter. ? Have problems with their lymph system or veins. What are the signs or symptoms? Symptoms of this condition include: ? A painful, firm bump under the skin. ? A bump with pus at the top. This may break through the skin and drain. Other symptoms include: ? Redness surrounding the abscess site. ? Warmth. ? Swelling of the lymph nodes (glands) near the abscess. ? Tenderness. ? A sore on the skin. How is this diagnosed? This condition may be diagnosed based on: ? A physical exam. ? Your medical history. ? A sample of pus. This may be used to find out what is causing the infection. ? Blood tests. ? Imaging tests, such as an ultrasound, CT scan, or MRI. How is this treated? A small abscess that drains on its own may not need treatment. Treatment for larger abscesses may include: ? Moist heat or heat pack applied to the area several times a day. ? A procedure to drain the abscess (incision and drainage). ? Antibiotic medicines. For a severe abscess, you may first get antibiotics through an IV and then change to antibiotics by mouth. Follow these instructions at home: Medicines ? Take hnrt-giy-dcgarrx and prescription medicines only as told by your health care provider. ? If you were prescribed an antibiotic medicine, take it as told by your health care provider. Do not stop taking the antibiotic even if you start to feel better. Abscess care ? If you have an abscess that has not drained, apply heat to the affected area. Use the heat source that your health care provider recommends, such as a moist heat pack or a heating pad. ? Place a towel between your skin and the heat source. ? Leave the heat on for 20???30 minutes. ? Remove the heat if your skin turns bright red. This is especially important if you are unable to feel pain, heat, or cold. You may have a greater risk of getting burned. ? Follow instructions from your health care provider about how to take care of your abscess. Make sureyou: ? Cover the abscess with a bandage (dressing). ? Change your dressing or gauze as told by your health care provider. ? Wash your hands with soap and water before you change the dressing or gauze. If soap and water are not available, use hand safety specialist. ? Check your abscess every day for signs of a worsening infection. Check for: ? More redness, swelling, or pain. ? More fluid or blood. ? Warmth. ? More pus or a bad smell. General instructions ? To avoid spreading the infection: ? Do not share personal care items, towels, or hot tubs with others. ? Avoid making skin contact with other people. ? Keep all follow-up visits as told by your health care provider. This is important. Contact a health care provider if you have: ? More redness, swelling, or pain around your abscess. ? More fluid or blood coming from your abscess. ? Warm skin around your abscess. ? More pus or a bad smell coming from your abscess. ? A fever. ? Muscle aches. ? Chills or a general ill feeling. Get help right away if you: ? Have severe pain. ? See red streaks on your skin spreading away from the abscess. Summary ? A skin abscess is an infected area on or under your skin that contains a collection of pus and othermaterial. ? A small abscess that drains on its own may not need treatment. ? Treatment for larger abscesses may include having a procedure to drain the abscess and taking an antibiotic. This information is not intended to replace advice given to you by your health care provider. Make sure you discuss any questions you have with your health care provider. Document Revised: 02/23/2020 Document Reviewed: 12/16/2018 [employer] Patient Education ?? 2021 [employer] Tests Performed Medications and Immunizations Administered Given cephalexin, 500 mg, Oral Patient/Discovery Manager Signature Patient Name:VINOD OCHOA I have received this information and my questions have been answered. Patient/Discovery Manager Name: Patient/Discovery Manager Signature: Relationship to Patient: Witness Name/Signature: Date: Electronically Signed on: 10/03/2022 09:07 ESTSigned by:LYUBOV Patient Care team information PersonnelName: Vladimir Mcgraw DO Address: Address: [address] [place] [phone]
--- OUTSIDE RECORDS SUMMARY | 2022-10-07 08:50 | XMS_ITS | Encounter Summary ---
:1955 Author Organization [facility] [place] [address] Care Team Providers Name Role Phone Vladimir Muñoz DO Primary Care Provider Encounter Details Date Type Department Care Team Description 06/30/2022 Telephone Otolaryngology at [facility] [place] [address] Social History Tobacco Use Types Packs/Day Years Used Date Smoking Tobacco: Former Cigarettes Smokeless Tobacco: Never Comments: quit at age 17 Alcohol Use Standard Drinks/Week Comments Yes 2 (1 standard drink = 0.6 oz pure alcoho l) beer on weekends Sex Assigned at Date Recorded Not on file documented as of this encounter Miscellaneous Notes Telephone Encounter - Gabrielle Hinkle - 06/30/2022 11:28 AM EDT Dot from PT called after receiving a message from the patient [facility] documented in this encounter Plan of Treatment Upcoming Encounters Date Type Specialty Care Team Description 03/25/2022 Anesthesia Event Surgery Catrachita Baez MD [facility] ANESTHESIOLOGY [place], [place] [address] (Wo rk) 12/15/2022 Office Visit Cardiology Damián Hart MD [facility] er [place], [place] [address] (Wo rk) 03/25/2050 Hospital Encounter Surgery Citlalli Richardson MD Vocal cord paralysis [facility] ER OTOLARYNGOLOGY [place], [place] [address] (Wo rk) documented as of this encounter Visit Diagnoses Not on filedocumented in this encounter Care Teams Vp Legal Affairs Relationship Specialty Start Date End Date Vladimir Muñoz DO PCP - General Family Medicine 01/19/18 [address] [place] [address] documented as of this encounter
--- OUTSIDE RECORDS SUMMARY | 2022-10-07 08:50 | XMS_ITS | Encounter Summary ---
:1955 Author Organization [facility] [place] [address] Care Team Providers Name Role Phone Vladimir Muñoz DO Primary Care Provider Encounter Details Date Type Department Care Team Description 03/24/2022 Telephone Otolaryngology at [facility] [place], [facility] [place] [phone] Social History Tobacco Use Types Packs/Day [...] Baez MD [facility] ANESTHESIOLOGY [place], [place] [address] (Wo rk) 12/15/2022 Office Visit Cardiology Damián Hart MD [facility] [place], [place] [address] (Wo rk) 03/25/2050 Hospital Encounter Surgery Citlalli Richardson MD Vocal cord paralysis [facility] OTOLARYNGOLOGY [place], [place] [address] (Wo rk) documented as of this encounter Visit Diagnoses Not on filedocumented in this encounter Care Teams Business Development Engineer Relationship Specialty Start Date End Date Vladimir Muñoz DO PCP - General Family Medicine 01/19/18 [address] [place] [address] documented as of this encounter
--- OUTSIDE RECORDS SUMMARY | 2022-10-07 08:50 | XMS_ITS | Encounter Summary ---
:1955 Author Organization [facility] [address] Care Team Providers Name Role Phone Vladimir Muñoz DO Primary Care Provider Reason for Visit Speech Therapy (Routine) - Authorized Specialty Diagnoses / Procedures Referred By Contact Refer red To Contact Speech Therapy Diagnoses s/p CABG now with R vocal cord non-mobil, Danny Antonio MD [facility] Section Leader Rehab [facility] [place] [address] [place] [address] Fax: Referral ID Status Reason Start Date Expiration Visits Visits Date Requested Authorized [id number] Authorized Consult, 01/31/2022 01/31/2023 100 100 Test & Treat Encounter Details Date Type Department Care Team Description 03/20/2022 Office Visit Speech Therapy at [facility], Fady al cord paralysis [facility] VACCINE SPECIALIST [facility] [address] [place], [place] PHYSICAL MEDICINE & [phone] REHABILITAT [phone] [place] [address] Social History Tobacco Use Types Packs/Day Years Used Date Smoking Tobacco: Former Cigarettes Smokeless Tobacco: Never Comments: quit at age 17 Alcohol Use Standard Drinks/Week Comments Yes 2 (1 standard drink = 0.6 oz pure alcoho l) beer on weekends Sex Assigned at Date Recorded Not on file documented as of this encounter Progress Notes Cary Lam, VACCINE SPECIALIST - 03/20/2022 1:00 PM EDT Speech-Language Pathology [...] be in touch with Dr. Richardson over [facility] due to difficulty using his phone. O: [...] weakness as documented above. Cary Lam MS CCC-VACCINE SPECIALIST Speech-Language Pathologist [facility] Pager # [phone] documented in this encounter Plan of Treatment Upcoming Encounters Date Type Specialty Care Team Description 03/25/2022 Anesthesia Event Surgery Catrachita Baez MD [facility] ANESTHESIOLOGY [place], [place] [address] (Wo rk) 12/15/2022 Office Visit Cardiology Damián Hart MD [facility] [place], [place] [address] (Wo rk) 03/25/2050 Hospital Encounter Surgery Citlalli Richardson MD Vocal cord paralysis [facility] OTOLARYNGOLOGY [place], [place] [address] (Wo rk) documented as of this encounter Visit Diagnoses Diagnosis Vocal cord paralysis Paralysis of vocal cords or larynx, unsp ecified Vocal cord paralysis Paralysis of vocal cords or larynx, unsp ecified documented in this encounter Care Teams Shoe Repairman Relationship Specialty Start Date End Date Vladimir Muñoz DO PCP - General Family Medicine 01/19/18 [address] [place] [address] documented as of this encounter
--- OUTSIDE RECORDS SUMMARY | 2022-10-07 08:50 | XMS_ITS | Encounter Summary ---
:1955 Author Organization [facility] [place] [address] Care Team Providers Name Role Phone Vladimir Muñoz DO Primary Care Provider Encounter Details Date Type Department Care Team Description 04/01/2022 Anesthesia Event Same Day at [facility] Maggie Godfrey, [facility] [place] [phone] [address] [phone] [place] [address] (Wo rk) Anesthesia Record Procedure Summary Procedure [...] OR Notes Anesthesia Preprocedure Evaluation - Maggie Godfrey APRN - 04/01/2022 3:09 PM EDT Images from [...] CATHERIZATION stent placement ? ? PRG CATH [facility] CORONARY ART W/INJ FOR ANGIO W/R HEART CATH IMG S&I N/A 01/13/2022 CORONARY ANGIOGRAPHY; W RHC performed by Polo Beckham MD at [facility] CATH LABS ??? PRO CABG, ARTERIAL, SINGLE N/A 01/21/2022 @CABG, USING ARTERIAL GRAFT;SINGLE ARTERIAL GRAFT (WRVU 33.75) performed by Danny Antonio MD at [facility] MAIN OR ??? PRO CABG, ARTERY-VEIN, TWO N/A 01/21/2022 @CABG, TWO VENOUS GRAFTS & ARTERIAL GRAFT (WRVU 7.93) performed by Danny Antonio MD at [facility] MAIN OR ??? PRO ENDOSCOPY W/VIDEO-ASST VEIN HARVEST, CABG Right 01/21/2022 ENDOSCOPIC HARVEST VEIN(S) FOR CABG (WRVU 0.31) performed by Danny Antonio MD at [facility] MAIN OR Social History Tobacco Use ??? [...] medical information from outside organization. From Where? [facility] discharge summary from April 2021 Findings, Assessment [...] Had spine surgery in April 2021 at [facility]. Reports he developed a staph infection afterwards [...] APRN 04/01/2022 Update (04/09/22): Discharge summary from [facility] reviewed and scanned under media. Patient was [...] Catrachita Baez MD [facility] ANESTHESIOLOGY [place], [place] [address] (Wo rk) 12/15/2022 Office Visit Cardiology Damáin Hart MD [facility] [place], [place] [address] (Wo rk) 03/25/2050 Hospital Encounter Surgery Citlalli Richardson MD Vocal cord paralysis [facility] OTOLARYNGOLOGY [place], [place] [address] (Wo rk) documented as of this encounter Visit Diagnoses Not on filedocumented in this encounter Care Teams Nitrate Operator Relationship Specialty Start Date End Date Vladimir Muñoz DO PCP - General Family Medicine 01/19/18 [address] [place] [address] documented as of this encounter
--- OUTSIDE RECORDS SUMMARY | 2022-10-07 08:50 | XMS_ITS | Encounter Summary ---
:1955 Author Organization [facility] [place] [place] [address] Care Team Providers Name Role Phone Vladimir Muñoz DO Primary Care Provider Encounter Details Date Type Department Care Team Description 04/15/2022 Telephone Speech Therapy at [facility] [place] [address] Social History Tobacco Use Types Packs/Day [...] Event Surgery Catrachita Baez MD [facility] ANESTHESIOLOGY [place], [place] [address] (Wo rk) 12/15/2022 Office Visit Cardiology Damián Hart MD [facility] [place], [place] [address] (Wo rk) 03/25/2050 Hospital Encounter Surgery Citlalli Richardson MD Vocal cord paralysis [facility] OTOLARYNGOLOGY [place], [place] [address] (Wo rk) documented as of this encounter Visit Diagnoses Not on filedocumented in this encounter Care Teams Cork Slabs Sawyer Relationship Specialty Start Date End Date Vladimir Muñoz DO PCP - General Family Medicine 01/19/18 [address] [place] [address] documented as of this encounter
--- OUTSIDE RECORDS SUMMARY | 2022-10-07 08:50 | XMS_ITS | Encounter Summary ---
:1955 Author Organization [facility] [place] [address] Care Team Providers Name Role Phone Vladimir Muñoz DO Primary Care Provider Encounter Details Date Type Department Care Team Description [facility] [address] [place] [address] [place] [address] [place] [address] (Wo rk) Social History Tobacco [...] x daily. 90 tabs [facility] in [place] Call back for questions [phone] documented in this encounter Plan of Treatment Upcoming Encounters Date Type Specialty Care Team Description 03/25/2022 Anesthesia Event Surgery Catrachita Baez MD [facility] ER ANESTHESIOLOGY [place], [place] [address] (Wo rk) 12/15/2022 Office Visit Cardiology Damián Hart MD [facility] [place], [place] [address] (Wo rk) 03/25/2050 Hospital Encounter Surgery Citlalli Richardson MD Vocal cord paralysis [facility] OTOLARYNGOLOGY [place], [place] [address] (Wo rk) documented as of this encounter Visit Diagnoses Diagnosis Vocal cord paralysis Paralysis of vocal cords or larynx, unsp ecified Essential hypertension Unspecified essential hypertension documented in this encounter Care Teams Event Executive Relationship Specialty Start Date End Date Vladimir Muñoz DO PCP - General Family Medicine 01/19/18 [address] [place] [address] documented as of this encounter
--- OUTSIDE RECORDS SUMMARY | 2022-10-07 08:50 | XMS_ITS | Encounter Summary ---
:1955 Author Organization [facility] [place] [address] Care Team Providers Name Role Phone Vladimir Muñoz DO Primary Care Provider Encounter Details Date Type Department Care Team Description 05/12/2022 Ancillary Procedure Radiology Library at [facility] dorothea Hyatt MD [facility] [place] [address] [place] [address] [phone] (Wo rk) Social History Tobacco Use Types [...] Catrachita Baez MD [facility] ANESTHESIOLOGY [place], [place] [address] (Wo rk) 12/15/2022 Office Visit Cardiology Damián Hart MD [facility] [place], [place] [address] (Wo rk) 03/25/2050 Hospital Encounter Surgery Citlalli Richardson MD Vocal cord paralysis [facility] ER OTOLARYNGOLOGY [place], [place] [address] (Wo rk) documented as of [...] Organization Address City/State/ZIP Code Phon e Number [place], [place] documented in this encounter Visit Diagnoses Not on filedocumented in this encounter Care Teams Front End Technician Relationship Specialty Start Date End Date Vladimir Muñoz DO PCP - General Family Medicine 01/19/18 [address] [place] [address] documented as of this encounter
--- OUTSIDE RECORDS SUMMARY | 2022-10-07 08:50 | XMS_ITS | Encounter Summary ---
:1955 Author Organization [place] [address] Care Team Providers Name Role Phone Valdimir Muñoz DO Primary Care Provider Reason for Visit Speech Therapy (Routine) - Authorized Specialty Diagnoses / Procedures Referred By Contact Refer red To Contact Speech Therapy Diagnoses s/p CABG now with R vocal cord non-mobil, Danny Antonio MD [facility] Casing Puller Rehab [facility] [place] [address] [place] [address] Fax: Referral ID Status Reason Start Date Expiration Visits Visits Date Requested Authorized [id number] Authorized Consult, 01/31/2022 01/31/2023 100 100 Test & Treat Encounter Details Date Type Department Care Team Description 04/01/2022 Office Visit Speech Therapy at Cary Lam, Fady al cord paralysis [facility] DENTAL PRACTITIONER [facility] [address] [place], [place] PHYSICAL MEDICINE & [address] REHABILITAT [phone] [place] [address] Social History Tobacco Use Types Packs/Day Years Used Date Smoking Tobacco: Former Cigarettes Smokeless Tobacco: Never Comments: quit at age 17 Alcohol Use Standard Drinks/Week Comments Yes 2 (1 standard drink = 0.6 oz pure alcoho l) beer on weekends Sex Assigned at Date Recorded Not on file documented as of this encounter Progress Notes Cary Lam, DENTAL PRACTITIONER - 04/01/2022 1:00 PM EDT Speech-Language Pathology [...] agreement with treatment plan. Cary Lam MS CCC-DENTAL PRACTITIONER Speech-Language Pathologist Outpatient Rehabilitation Medicine Pager # [phone] documented in this encounter Plan of Treatment Upcoming Encounters Date Type Specialty Care Team Description 03/25/2022 Anesthesia Event Surgery Catrachita Baez MD [facility] ANESTHESIOLOGY [place], [place] 0[address] (Wo rk) 12/15/2022 Office Visit Cardiology Damián Hart MD [facility] [place], [place] 0[address] (Wo rk) 03/25/2050 Hospital Encounter Surgery Citlalli Richardson MD Vocal cord paralysis [facility] OTOLARYNGOLOGY [place], [place] 0375 (Wo rk) documented as of this encounter Visit Diagnoses Diagnosis Vocal cord paralysis Paralysis of vocal cords or larynx, unsp ecified Vocal cord paralysis Paralysis of vocal cords or larynx, unsp ecified documented in this encounter Care Teams Animal Sitter Relationship Specialty Start Date End Date Vladimir Muñoz DO PCP - General Family Medicine 01/19/18 [address] [place] [address] documented as of this encounter
--- OUTSIDE RECORDS SUMMARY | 2022-10-07 08:50 | XMS_ITS | Encounter Summary ---
:1955 Author Organization [facility] [place] [address] Care Team Providers Name Role Phone Vladimir Muñoz DO Primary Care Provider Reason for Referral Diagnostic Test (Routine) - Authorized Specialty Diagnoses / Procedures Referred By Contact Refer red To Contact Radiology Diagnoses Vocal cord paralysis Citlalli Richardson MD Procedures MRI Soft Tissue Neck wwo Contrast [facility] [place] [address] Referral ID Status Reason Start Expiration Visits Visits Date Date Requested Authorized [id number] Authorized Specialty 04/15/2022 10/15/2023 1 1 Service Requested Encounter Details Date Type Department Care Team Description 04/15/2022 Office Visit Otolaryngology at Citlalli Bull MD Vocal cord paralysis [facility] [place] [address] CENTER [phone] OTOLARYNGOLOGJoana [place], [place] [address] Social History Tobacco Use Types [...] Richardson MD - 04/15/2022 3:20 PM EDT [facility] Otolaryngology - Head and Neck Surgery Citlalli Richardson MD 04/15/22 3:17 PM [place] [address] Office Patient Name: Burton Mcnair Jr. Date [...] CATHERIZATION stent placement ? ? PRG CATH [facility] CORONARY ART W/INJ FOR ANGIO W/R HEART CATH [facility] S&I N/A 01/13/2022 CORONARY ANGIOGRAPHY; W RHC performed by Polo Beckham MD at [facility] CATH LABS ??? PRO CABG, ARTERIAL, SINGLE N/A 01/21/2022 @CABG, USING ARTERIAL GRAFT;SINGLE ARTERIAL GRAFT (WRVU 33.75) performed by Danny Antonio MD at [facility] MAIN OR ??? PRO CABG, ARTERY-VEIN, TWO N/A 01/21/2022 @CABG, TWO VENOUS GRAFTS & ARTERIAL GRAFT (WRVU 7.93) performed by Danny Antonio MD at [facility] MAIN OR ??? PRO ENDOSCOPY W/VIDEO-ASST VEIN HARVEST, CABG Right 01/21/2022 ENDOSCOPIC HARVEST VEIN(S) FOR CABG (WRVU 0.31) performed by Danny Antonio MD at [facility] MAIN OR Family and Social History Family History: Family History Problem Relation Age of Onset ??? No Known Problems Mother ??? Colorectal Cancer Father ??? Breast Cancer Sister Social History: Lives in [place] [address] Social History Socioeconomic History ??? Marital status: [...] Catrachita Baez MD [facility] ANESTHESIOLOGY [place], [place] [address] (Wo rk) 12/15/2022 Office Visit Cardiology Damián Hart MD [facility] [place], [place] [address] (Wo rk) 03/25/2050 Hospital Encounter Surgery Citlalli Richardson MD Vocal cord paralysis [facility] OTOLARYNGOLOGY [place], [place] [address] (Wo rk) Scheduled Orders Name [...] documented in this encounter Care Teams Shoe Fitter Relationship Specialty Start Date End Date Vladimir Muñoz DO PCP - General Family Medicine 01/19/[address] [place] [address] documented as of this encounter
--- OUTSIDE RECORDS SUMMARY | 2022-10-07 08:50 | XMS_ITS | Encounter Summary ---
:1955 Author Organization [facility] [place] [address] Care Team Providers Name Role Phone Vladimir Muñoz DO Primary Care Provider Reason for Visit Reason Comments Medication Refill Encounter Details Date Type Department Care Team Description 06/26/2022 Refill Cardiology at [facility] Damián Hart MD Medication Refill [address] [place] [address] [place] [address] [phone] (Wo rk) Social History Tobacco Use Types [...] Baez MD [facility] ANESTHESIOLOGY [place], [place] [address] (Wo rk) 12/15/2022 Office Visit Cardiology Damián Hart MD [facility] [address] [place], [place] [address] (Wo rk) 03/25/2050 Hospital Encounter Surgery Citlalli Richardson MD Vocal cord paralysis [facility] ER OTOLARYNGOLOGY [place], [place] [address] (Wo rk) documented as of this encounter Visit Diagnoses Diagnosis Vocal cord paralysis Paralysis of vocal cords or larynx, unsp ecified ASCVD (arteriosclerotic cardiovascular d isease) Unspecified cardiovascular disease documented in this encounter Care Teams Stores Naval Relationship Specialty Start Date End Date Vladimir Muñoz DO PCP - General Family Medicine 01/19/18 [address] [place] [address] documented as of this encounter
--- OUTSIDE RECORDS SUMMARY | 2022-10-07 08:50 | XMS_ITS | Encounter Summary ---
:1955 Author Organization [facility] [place] [address] Care Team Providers Name Role Phone Vladimir Muñoz DO Primary Care Provider Reason for Referral Consultation (Routine) - Closed Specialty Diagnoses / Procedures Referred By Contact Refer red To Contact Pre-Admission Testing Diagnoses Vocal cord paralysis Citlalli Richardson MD [facility] Pre Admit Test [facility] 4v [facility] OT[address] [address] Phone: Referral ID Status Reason Start Date Expiration Date Visits V isits Requested Authorized [id number] Closed Consult, 03/27/2022 03/27/2023 1 1 Test & Treat Encounter Details Date Type Department Care Team Description 03/27/2022 Orders Only Otolaryngology at Citlalli Bull MD Vocal cord paralysis [facility] [place] [address] CENTER [phone] OTOLARYNGOLOGY [place], [place] [address] Social History Tobacco Use Types [...] Anesthesia Event Surgery Catrachita Baez MD [facility] ER ANESTHESIOLOGY [place], [place] 0[address] (Wo rk) 12/15/2022 Office Visit Cardiology Damián Hart MD [facility] er [place], [place] 0[address] (Wo rk) 03/25/2050 Hospital Encounter Surgery Citlalli Richardson MD Vocal cord paralysis [facility] OTOLARYNGOLOGY [place], [place] 0[address] (Wo rk) Scheduled Referrals Name Type Priority Associated Order Schedule Diagnoses Referral to General Outpatient Referral Routine Vocal cord O rdered: Anesthesiology paralysis 03/27/2022 documented as of this encounter Visit Diagnoses Diagnosis Vocal cord paralysis Paralysis of vocal cords or larynx, unsp ecified Vocal cord paralysis Paralysis of vocal cords or larynx, unsp ecified documented in this encounter Care Teams Sliver Lap Machine Tender Relationship Specialty Start Date End Date Vladimir Muñoz DO PCP - General Family Medicine 01/19/18 [address] [place] [address] documented as of this encounter
--- OUTSIDE RECORDS SUMMARY | 2022-10-07 08:50 | XMS_ITS | Encounter Summary ---
:1955 Author Organization [facility] [place] [address] Care Team Providers Name Role Phone Vladimir Muñoz DO Primary Care Provider Reason for Visit Speech Therapy (Routine) - Authorized Specialty Diagnoses / Procedures Referred By Contact Refer red To Contact Speech Therapy Diagnoses s/p CABG now with R vocal cord non-mobil, Danny Antonio MD [facility] Rn Employee Health Rehab [facility] [place] [address] [place] [address] Fax: Referral ID Status Reason Start Date Expiration Visits Visits Date Requested Authorized [id number] Authorized Consult, 01/31/2022 01/31/2023 100 100 Test & Treat Encounter Details Date Type Department Care Team Description 05/06/2022 Office Visit Speech Therapy at Cary Lam, Fady al cord paralysis [facility] COMMUNICATIONS TECHNOLOGIST [facility] [address] [place], [place] PHYSICAL MEDICINE & [address] REHABILITAT [phone] [place] [address] Social History Tobacco Use Types Packs/Day Years Used Date Smoking Tobacco: Former Cigarettes Smokeless Tobacco: Never Comments: quit at age 17 Alcohol Use Standard Drinks/Week Comments Yes 2 (1 standard drink = 0.6 oz pure alcoho l) beer on weekends Sex Assigned at Date Recorded Not on file documented as of this encounter Progress Notes Cary Lam, COMMUNICATIONS TECHNOLOGIST - 05/06/2022 11:00 AM EDT Speech-Language Pathology [...] agreement with treatment plan. Cary Lam MS [facility]-COMMUNICATIONS TECHNOLOGIST Speech-Language Pathologist Outpatient Rehabilitation Medicine Pager # [phone] documented in this encounter Plan of Treatment Upcoming Encounters Date Type Specialty Care Team Description 03/25/2022 Anesthesia Event Surgery Catrachita Baez MD [facility] ANESTHESIOLOGY [place], [place] [address] (Wo rk) 12/15/2022 Office Visit Cardiology Damián Hart MD [facility] [place], [place] [address] (Wo rk) 03/25/2050 Hospital Encounter Surgery Citlalli Richardson MD Vocal cord paralysis [facility] OTOLARYNGOLOGY [place], [place] [address] (Wo rk) documented as of this encounter Visit Diagnoses Diagnosis Vocal cord paralysis Paralysis of vocal cords or larynx, unsp ecified Vocal cord paralysis Paralysis of vocal cords or larynx, unsp ecified documented in this encounter Care Teams Mortgage Protection Sales Relationship Specialty Start Date End Date Vladimir Muñoz DO PCP - General Family Medicine 01/19/18 [address] [place] [address] documented as of this encounter
--- OUTSIDE RECORDS SUMMARY | 2022-10-07 08:50 | XMS_ITS | Encounter Summary ---
:1955 [place] [address] Care Team Providers Name Role Phone Vladimir Muñoz DO Primary Care Provider Encounter Details Date Type Department Care Team Description 03/25/2022 - Surgery Main Operating Room Citlalli Richardson MD Not Performed 03/25/2050 [facility] LARYNGO SCOPY WITH [facility] [address] ABIGAIL SELF [facility] OTOLARYNGOLOG Y (WRVU 4.26) [place] [address] [place], [place] [phone] (Work) [phone] Social History Tobacco Use Types Packs/Day Years [...] Surgery Catrachita Baez MD [facility] ER ANESTHESIOLOGY [place] [address] (Wo rk) 12/15/2022 Office Visit Cardiology Damián Hart MD [facility] Medical [facility] [address] [place], [place] [address] (Wo rk) documented as of this encounter Procedures Procedure Name Priority Date/Time Associated Diagnosis Comme nts LARYNGOSCOPY WITH VOCAL Routine 03/25/2022 7:43 AM Vocal cord paralysis CORD INJECTION, MICRO EDT documented in this encounter Visit Diagnoses Diagnosis Vocal cord paralysis Paralysis of vocal cords or larynx, unsp ecified documented in this encounter Care Teams Metal Engineering Process Worker Relationship Specialty Start Date End Date Vladimir Muñoz DO PCP - General Family Medicine 01/19/18 [address] [place] [address] documented as of this encounter
--- OUTSIDE RECORDS SUMMARY | 2022-10-07 08:50 | XMS_ITS | Encounter Summary ---
:1955 Author Organization [facility] [place] [address] Care Team Providers Name Role Phone Vladimir Muñoz DO Primary Care Provider Encounter Details Date Type Department Care Team Description 03/14/2022 Orders Only Otolaryngology at Citlalli Bull MD [facility] pedrito [facility] [address] OTOLARYNGOLOGY [phone] [place], [place] [address] (Wo rk) Social History Tobacco [...] Surgery Catrachita Baez MD [facility] ANESTHESIOLOGY [place], [place] [address] (Wo rk) 12/15/2022 Office Visit Cardiology Damián Hart MD [facility] [address] [place], [place] [address] (Wo rk) 03/25/2050 Hospital Encounter Surgery Citlalli Richardson MD Vocal cord paralysis [facility] ER OTOLARYNGOLOGY [place], [place] [address] (Wo rk) documented as of this encounter Visit Diagnoses Not on filedocumented in this encounter Care Teams Historic Sites Supervisor Relationship Specialty Start Date End Date Vladimir Muñoz DO PCP - General Family Medicine 01/19/18 [address] [place] [address] documented as of this encounter
--- OUTSIDE RECORDS SUMMARY | 2022-10-07 08:50 | XMS_ITS | Encounter Summary ---
:1955 Author Organization [facility] [place] [address] Care Team Providers Name Role Phone Vladimir Muñoz DO Primary Care Provider Reason for Visit Reason Comments Coronary Artery Disease CABG x 3 on 01/21/22 Encounter Details Date Type Department Care Team Description 04/29/2022 Office Visit Cardiology at Damián Hart ASCVD (ar teriosclerotic cardiovascular disease); Sami CORADO Hyperpiesia [address] [facility] [address] [place] [phone] Social History Tobacco Use Types Packs/Day Years [...] ischemia at ST III 12/2021 cath (dyspnea/angina): DATA LEAD mRCA, mLAD 55, D1 60, mCx DATA LEAD, pOM1 70 01/2022: CABG x 3 (GALICIA->LAD, [...] 03/25/2022 Anesthesia Event Surgery Catrachita Baez MD [facility] ANESTHESIOLOGY [place], [place] [address] (Wo rk) 12/15/2022 Office Visit Cardiology Damián Hart MD [facility] [address] [place] [address] (Wo rk) 03/25/2050 Hospital Encounter Surgery Citlalli Richardson MD Vocal cord paralysis [facility] ER OTOLARYNGOLOGY [place], [place] [address] (Wo rk) documented as of this encounter Visit Diagnoses Diagnosis Vocal cord paralysis Paralysis of vocal cords or larynx, unsp ecified ASCVD (arteriosclerotic cardiovascular d isease) Unspecified cardiovascular disease Hyperpiesia Unspecified essential hypertension documented in this encounter Care Teams Multimedia Production Assistant Relationship Specialty Start Date End Date Vladimir Muñoz DO PCP - General Family Medicine 01/19/18 [address] [place] [address] documented as of this encounter
--- OUTSIDE RECORDS SUMMARY | 2022-10-07 08:50 | XMS_ITS | Encounter Summary ---
:1955 Author Organization [facility] Address [address] [place] [address] Care Team Providers Name Role Phone Vladimir Muñoz DO Primary Care Provider Encounter Details Date Type Department Care Team Description 05/06/2022 Orders Only Allergy at [facility] Salina Barreto MD Anaphylaxis, [facility] [place] [address] ALLERGY DEPT [phone] [place], [place] [address] Social History Tobacco Use Types [...] Baez MD [facility] ANESTHESIOLOGY [place], [place] [address] (Wo rk) 12/15/2022 Office Visit Cardiology Damián Hart MD [facility] [place], [place] [address] (Wo rk) 03/25/2050 Hospital Encounter Surgery Citlalli Richardson MD Vocal cord paralysis [facility] OTOLARYNGOLOGY [place], [place] [address] (Wo rk) documented as of this encounter Visit Diagnoses Diagnosis Vocal cord paralysis Paralysis of vocal cords or larynx, unsp ecified Anaphylaxis, subsequent encounter documented in this encounter Care Teams Glass Cutter Helper Relationship Specialty Start Date End Date Vladimir Muñoz DO PCP - General Family Medicine 01/19/18 [address] [place] [address] documented as of this encounter
--- OUTSIDE RECORDS SUMMARY | 2022-10-07 08:50 | XMS_ITS | Encounter Summary ---
:1955 Author Organization [facility] [place] [address] Care Team Providers Name Role Phone Vladimir Muñoz DO Primary Care Provider Encounter Details Date Type Department Care Team Description 03/21/2022 Telephone Otolaryngology at [facility] [place] [address] Social History Tobacco Use Types Packs/Day Years Used Date Smoking Tobacco: Former Cigarettes Smokeless Tobacco: Never Comments: quit at age 17 Alcohol Use Standard Drinks/Week Comments Yes 2 (1 standard drink = 0.6 oz pure alcoho l) beer on weekends Sex Assigned at Date Recorded Not on file documented as of this encounter Miscellaneous Notes Telephone Encounter - Nan Vargas - 03/21/2022 2:40 PM EDT [place], Patient [...] Event Surgery Catrachita Baez MD [facility] ER ANESTHESIOLOGY [place], [place] [address] (Wo rk) 12/15/2022 Office Visit Cardiology Damián Hart MD [facility] [place], [place] [address] (Wo rk) 03/25/2050 Hospital Encounter Surgery Citlalli Richardson MD Vocal cord paralysis [facility] OTOLARYNGOLOGY [place], [place] [address] (Wo rk) documented as of this encounter Visit Diagnoses Not on filedocumented in this encounter Care Teams Drafter Relationship Specialty Start Date End Date Vladimir Muñoz DO PCP - General Family Medicine 01/19/[address] [place] [address] documented as of this encounter
--- OUTSIDE RECORDS SUMMARY | 2022-10-07 08:50 | XMS_ITS | Encounter Summary ---
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, Danny Antonio MD [facility] Manager Banking Rehab [facility] [place] [address] [place] [address] Fax: Referral ID Status Reason Start Date Expiration Visits Visits Date Requested Authorized [id number] Authorized Consult, 01/31/2022 01/31/2023 100 100 Test & Treat Encounter Details Date Type Department Care Team Description 06/11/2022 Office Visit Speech Therapy at Cary Lam, Fady al cord paralysis [facility] DIRECTOR TALENT [facility] [address] [place], [place] PHYSICAL MEDICINE & [phone] REHABILITAT [phone] [place] [address] Social History Tobacco Use Types Packs/Day Years Used Date Smoking Tobacco: Former Cigarettes Smokeless Tobacco: Never Comments: quit at age 17 Alcohol Use Standard Drinks/Week Comments Yes 2 (1 standard drink = 0.6 oz pure alcoho l) beer on weekends Sex Assigned at Date Recorded Not on file documented as of this encounter Progress Notes Cary Lam, DIRECTOR TALENT - 06/11/2022 2:00 PM EDT Speech-Language Pathology [...] likely need to follow up with Dr. Richardson re: plan of care once she sees [...] agreement with treatment plan. Cary Lam MS CCC-DIRECTOR TALENT Speech-Language Pathologist Outpatient Rehabilitation Medicine Pager # [phone] documented in this encounter Plan of Treatment Upcoming Encounters Date Type Specialty Care Team Description 03/25/2022 Anesthesia Event Surgery Catrachita Baez MD [facility] ANESTHESIOLOGY [place], [place] [address] (Wo rk) 12/15/2022 Office Visit Cardiology Damián Hart MD [facility] [place], [place] [address] (Wo rk) 03/25/2050 Hospital Encounter Surgery Citlalli Richardson MD Vocal cord paralysis [facility] OTOLARYNGOLOGY [place], [place] [address] (Wo rk) documented as of this encounter Visit Diagnoses Diagnosis Vocal cord paralysis Paralysis of vocal cords or larynx, unsp ecified Vocal cord paralysis Paralysis of vocal cords or larynx, unsp ecified documented in this encounter Care Teams Presser First Relationship Specialty Start Date End Date Vladimir Muñoz DO PCP - General Family Medicine 01/19/18 [address] [place] [address] documented as of this encounter
--- OUTSIDE RECORDS SUMMARY | 2022-10-07 08:50 | XMS_ITS | Encounter Summary ---
:1955 Author Organization [facility] [place] [address] Care Team Providers Name Role Phone Vladimir Muñoz DO Primary Care Provider Encounter Details Date Type Department Care Team Description 05/06/2022 Notes Only Allergy at [facility] Ayana Giordano, [place] [address] Social History Tobacco Use Types Packs/Day [...] MD [facility] ER ANESTHESIOLOGY [place], [place] [address] (Wo rk) 12/15/2022 Office Visit Cardiology Damián Hart MD [facility] er [place], [place] [address] (Wo rk) 03/25/2050 Hospital Encounter Surgery Citlalli Richardson MD Vocal cord paralysis [facility] OTOLARYNGOLOGY [place], [place] [address] (Wo rk) documented as of this encounter Visit Diagnoses Not on filedocumented in this encounter Care Teams Dog Trainer Relationship Specialty Start Date End Date Vladimir Muñoz DO PCP - General Family Medicine 01/19/18 [address] [place] [address] documented as of this encounter
--- OUTSIDE RECORDS SUMMARY | 2022-10-07 08:50 | XMS_ITS | Encounter Summary ---
:1955 Author Organization [facility] [place] [address] Care Team Providers Name Role Phone Vladimir Muñoz DO Primary Care Provider Reason for Visit Consultation (Routine) - Closed Specialty Diagnoses / Procedures Referred By Contact Refer red To Contact Pre-Admission Testing Diagnoses Vocal cord paralysis Citlalli Richardson MD [facility] Pre Admit Test [facility] 4v [facility] OTOLARYNGOLOGY [address] [address] Phone: Referral ID Status Reason Start Date Expiration Date Visits V isits Requested Authorized [id number] Closed Consult, 03/27/2022 03/27/2023 1 1 Test & Treat Encounter Details Date Type Department Care Team Description 04/01/2022 [place] [address] Social History Tobacco Use Types Packs/Day [...] 03/25/2022 Anesthesia Event Surgery Catrachita Baez MD [facility] ANESTHESIOLOGY [place], [place] [address] (Wo rk) 12/15/2022 Office Visit Cardiology Damián Hart MD [facility] [place], [place] [address] (Wo rk) 03/25/2050 Hospital Encounter Surgery Citlalli Richardson MD Vocal cord paralysis [facility] OTOLARYNGOLOGY [place], [place] [address] (Wo rk) Scheduled Referrals Name Type Priority Associated Order Schedule Diagnoses Referral to General Outpatient Referral Routine Vocal cord O rdered: Anesthesiology paralysis 03/27/2022 documented as of this encounter Visit Diagnoses Not on filedocumented in this encounter Care Teams Tool Chaser Relationship Specialty Start Date End Date Vladimir Muñoz DO PCP - General Family Medicine 01/19/18 [address] [place] [address] documented as of this encounter
--- OUTSIDE RECORDS SUMMARY | 2022-10-07 08:50 | XMS_ITS | Encounter Summary ---
:1955 Author Organization [facility] [address] Care Team Providers Name Role Phone Vladimir Muñoz DO Primary Care Provider Encounter Details Date Type Department Care Team Description 03/21/2022 Telephone Speech Therapy at [facility] [place] [address] Social History Tobacco Use Types Packs/Day [...] Baez MD [facility] ANESTHESIOLOGY [place], [place] [address] (Wo rk) 12/15/2022 Office Visit Cardiology Damián Hart MD [facility] er [place], [place] [address] (Wo rk) 03/25/2050 Hospital Encounter Surgery Citlalli Richardson MD Vocal cord paralysis [facility] ER OTOLARYNGOLOGY [place], [place] [address] (Wo rk) documented as of this encounter Visit Diagnoses Not on filedocumented in this encounter Care Teams Mechanical Pencils Assembler Relationship Specialty Start Date End Date Vladimir Muñoz DO PCP - General Family Medicine 01/19/18 [address] [place] [address] documented as of this encounter
--- OUTSIDE RECORDS SUMMARY | 2022-10-07 08:50 | XMS_ITS | Clinical Summary ---
:1955 Author Organization [facility] [place] [address] Care Team Providers Name Role Phone Vladimir [...] ischemia at ST III 12/2021 cath (dyspnea/angina): SCREEN ROOM OPERATOR mRCA, mLAD 55, D1 60, mCx SCREEN ROOM OPERATOR, pOM1 70 01/2022: CABG x 3 (GALICIA->LAD, [...] 08/20/2020 CAD (coronary artery disease) 03/10/2017 11/28/2019 Immunizations Name Administration Dates Next Due Influenza [...] Event Surgery Catrachita Baez MD [facility] ANESTHESIOLOGY [place], [place] [address] (Wo rk) 12/15/2022 Office Visit Cardiology [facility] [place], [place] 0[address] (Wo rk) 03/25/2050 Hospital Encounter Surgery Citlalli Richardson MD Vocal cord [facility] OTOL[facility]OLOGY [place], [place] 0[address] (Wo rk) Health Maintenance Due Date Last Done Comments Covid-19 Vaccine (#1) 1955 Pneumoccocal Vaccine: 65+ (1 - 02/02/1960 PCV) DM Opthalmology Exam 02/02/1964 DM Urine Microalbumin yearly 02/02/1964 Hepatitis C Screening 02/02/1972 Tdap adult 1973 Tetanus vaccine 1973 Colonoscopy 1999 Zoster vaccine (1 of 2) 02/02/2004 Advance Directive 2009 AAA Screen 2019 DM Hemoglobin A1c 6 month 01/22/2021 07/25/2020 Influenza (Flu) vaccine (1 of 1 - 07/17/2022 09/16/2009 Influenza standard series) DM Creatinine yearly 01/27/2023 01/27/2022, 01/26/2022, 01/25/2022, Additional history exists Medical Devices Implanted Type Area It Data Architect Device Shelf Model / Identifier Expiration Serial / Date Lot Cable,Cut,Edg,Blnt,Ss,3tpr ([id number]) - [id number] IMPLANTS N/A: [employer] 06/13/2026 [id number] / Implanted: Qty: 1 on 01/21/2022 by Danny Antonio MD at [facility] TECHNOLOGY - / [id number] Insurance Payer Benefit Plan / Subscriber ID Effective Phone Address T ype Group Dates MEDICARE MEDICARE PART A [id number] 2018-Prese [phone] [facility] MD [place] [address] ANTH MEDICARE ANTHEM MEDICARE [id number] 2019-Presigor [address] SUPPLE[place] [address] Guarantor Name Account Type Relation to Date of Phone Billing Patient Address Burton Mcnair Personal/Family Self 1955 [address] (Home) [place] [phone] (Work) Advance Directives Latest Code Status on File Code Status Date Activated Date Inactivated Comments Attempt Cardiopulmonary Resuscitation - 01/21/2022 12:28 PM 5:33 PM Inpatient Question Answer Comments Code Status decision made by: Patient Code Status History Code Status Date Activated Date Inactivated Comments Full Code 01/13/2022 10:44 AM 01/21/2022 5:49 AM Question Answer Comments Does patient have capacity to make decision: Yes Attempt Cardiopulmonary Resuscitation - 01/13/2022 9:07 AM 10:44 AM Inpatient Question Answer Comments Code Status decision made by: Patient Full Code 03/10/2017 11:34 AM 03/11/2017 12:35 PM Question Answer Comments Does patient have capacity to make decision: Yes Full Code 03/10/2017 9:35 AM 03/10/2017 11:34 AM Question Answer Comments Does patient have capacity to make decision: Yes Care Teams Scrub Tech Relationship Specialty Start Date End Date Vladimir Muñoz, DO PCP - General Family Medicine 01/19/18 [address] [place] [address]
--- OUTSIDE RECORDS SUMMARY | 2022-10-07 08:50 | XMS_ITS | Encounter Summary ---
:1955 Author Organization [facility] [place] [address] Care Team Providers Name Role Phone Vladimir Muñoz DO Primary Care Provider Reason for Visit Reason Comments Medication Refill Encounter Details Date Type Department Care Team Description 06/10/2022 Refill Cardiology at [facility] Damián Hart MD Medication Refill [address] [place] [address] [place] [address] [phone] (Wo rk) Social History Tobacco Use Types [...] Catrachita Baez MD [facility] ANESTHESIOLOGY [place], [place] 0[address] (Wo rk) 12/15/2022 Office Visit Cardiology Damián Hart MD [facility] [address] [place], [place] [address] (Wo rk) 03/25/2050 Hospital Encounter Surgery Citlalli Richardson MD Vocal cord paralysis [facility] OTOLARYNGOLOGY [place], [place] [address] (Wo rk) documented as of this encounter Visit Diagnoses Diagnosis Vocal cord paralysis Paralysis of vocal cords or larynx, unsp ecified Essential hypertension Unspecified essential hypertension documented in this encounter Care Teams Swine Genetics Researcher Relationship Specialty Start Date End Date Vladimir Muñoz DO PCP - General Family Medicine 01/19/18 [address] [place] [address] documented as of this encounter
--- OUTSIDE RECORDS SUMMARY | 2022-10-07 08:50 | XMS_ITS | Encounter Summary ---
:1955 Author Organization [place] [address] Care Team Providers Name Role Phone Vladimir Muñoz DO Primary Care Provider Encounter Details Date Type Department Care Team Description 05/06/2022 Notes Only Allergy at [facility] Ayana Giordano, [place] [address] Social History Tobacco Use Types Packs/Day [...] PM EDT Controlled substance administration waste Vecuronium Downey 10 mg per mL. Time wasted 1600 amount given 0.3 mL, and amount wasted 9.7 mL. documented in this encounter Plan of Treatment Upcoming Encounters Date Type Specialty Care Team Description 03/25/2022 Anesthesia Event Surgery Catrachita Baez MD [facility] DR ANESTHESIOLOGY [place], [place] [address] (Wo rk) 12/15/2022 Office Visit Cardiology Damián Hart MD [facility] er [place], [place] 0[address] ( rk) 03/25/2050 Hospital Encounter Surgery Citlalli Richardson MD Vocal cord paralysis [facility] OTOLARYNGOLOGY [place], [place] [address] (Wo rk) documented as of this encounter Visit Diagnoses Not on filedocumented in this encounter Care Teams Commissary Assistant Relationship Specialty Start Date End Date Vladimir Muñoz DO PCP - General Family Medicine 01/19/[address] [place] [address] documented as of this encounter
--- OUTSIDE RECORDS SUMMARY | 2022-10-07 08:50 | XMS_ITS | Encounter Summary ---
:1955 Author Organization [facility] Address [address] [place] [id number] Care Team Providers Name Role Phone Vladimir Muñoz DO Primary Care Provider Reason for Visit Reason Comments Allergy Testing Consultation (Urgent) - Closed Specialty Diagnoses / Procedures Referred By Contact Refer red To Contact Allergy Diagnoses follow up inpatient consult allergic reaction skin test for - ceftriaxone, vecuronium and human serum albumin Danny Antonio MD Reigh, Erin L, MD [facility] D [facility] CARDIOTHORACIC SURGE ALLERGY DEPT [address] [address] Fax: Referral ID Status Reason Start Date Expiration Date Visits V isits Requested Authorized [id number] Closed Consult, 01/31/2022 01/31/2023 1 1 Test & Treat Encounter Details Date Type Department Care Team Description 05/06/2022 Office Visit Allergy at [facility] Salina Barreto MD Drug allergy; [facility] Meagan phylaxis, subsequent encounter Drive [address] Love [facility] ALL[place]GY [place]PT [phone] [place] [address] [phone] Social History Tobacco Use Types Packs/Day Years [...] EDT documented in this encounter Progress Notes Ayana Giordano RN - 05/06/2022 1:00 PM EDT Patient [...] 10 mL of sterile water) Lot number: [id number] Expir: 06/14/2022 (FS 0.05mL for SPT and 0.2 mL for mixing to make 1:10 dilution) Ceftriaxone: 1 gram(reconstituted with 2.1 mL of sterile water Lot number: [id number] Expir: 10/15/2024 Salina Barreto MD - 05/06/2022 [...] Catrachita Baez MD [facility] ANESTHESIOLOGY [place], [place] [address] ([facility]) 12/15/2022 Office Visit Cardiology Damián Hart MD [facility] [place], [place] [address] (Wo rk) 03/25/2050 Hospital Encounter Surgery Citlalil Richardson MD Vocal cord paralysis [facility] OTOLARYNGOLOGY [place], [place] 0[address] (Wo rk) documented as of [...] encounter documented in this encounter Care Teams Addictions Therapist Relationship Specialty Start Date End Date Vladimir Muñoz DO PCP - General Family Medicine 01/19/[address] [place] [address] documented as of this encounter
--- OUTSIDE RECORDS SUMMARY | 2022-10-07 08:51 | XMS_ITS | Encounter Summary ---
:1955 Author Organization [place] [address] Care Team Providers Name Role Phone Vladimir Muñoz DO Primary Care Provider Encounter Details Date Type Department Care Team Description 02/19[facility]20[facility] [address] [place] [address] [place] [address] [place] [address] (Wo rk) Social History Tobacco [...] Muñoz on 02/27/2022. Recommendation: FOLLOW UP with evp strategy in next 2-3 weeks, pending the update on . Telephone Encounter - Keke Murcia RN - 02/20/2022 10:45 AM EDT Fax of note to attention to Dr. Hart - documented in this encounter Plan of Treatment Upcoming Encounters Date Type Specialty Care Team Description 03/25/2022 Anesthesia Event Surgery Catrachita Baez MD [facility] ANESTHESIOLOGY [place] [address] (Wo rk) 12/15/2022 Office Visit Cardiology Damián Hart MD [facility] Dr [place] [address] (Wo rk) 03/25/2050 Hospital Encounter Surgery Citlalli Richardson MD Vocal cord paralysis [facility] OTOL[facility] [place], [place] 0[address] (Wo rk) documented as of this encounter Visit Diagnoses Not on filedocumented in this encounter Care Teams Medical Writer Relationship Specialty Start Date End Date Vladimir Muñoz DO PCP - General Family Medicine 01/19/[address] [place] [address] documented as of this encounter
--- OUTSIDE RECORDS SUMMARY | 2022-10-07 08:51 | XMS_ITS | Encounter Summary ---
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, Danny Antonio MD [facility] Engineering And Development Director Rehab [facility] [place] [address] [place] [address] Fax: Referral ID Status Reason Start Date Expiration Visits Visits Date Requested Authorized [id number] Authorized Consult, 01/31/2022 01/31/2023 100 100 Test & Treat Encounter Details Date Type Department Care Team Description 03/03/2022 Office Visit Speech Therapy at Cary Lam Voc al cord paralysis [facility] DIRECTOR OF OPERATIONS (Primary Dx) [facility] [address] [place], [place] PHYSICAL MEDICINE & [phone] REHABILITAT [phone] [place] [address] Social History Tobacco Use Types Packs/Day Years Used Date Smoking Tobacco: Former Cigarettes Smokeless Tobacco: Never Comments: quit at age 17 Alcohol Use Standard Drinks/Week Comments Yes 2 (1 standard drink = 0.6 oz pure alcoho l) beer on weekends Sex Assigned at Date Recorded Not on file documented as of this encounter Miscellaneous Notes Initial Evaluation - Cary Lam, DIRECTOR OF OPERATIONS - 03/03/2022 9:00 AM EDT [facility] Rehabilitation Medicine Department Speech-Language Pathology Voice Evaluation [...] his voice at work. 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 References: Jaylen Romo., Ese Love., Alvaro Granger, Vale Robert, & Lissy Zeng. (2004). Development and validationof the voice handicap index?10. The Laryngoscope, 114(9), 8571-2177. Eliud Field., Oneal Hernandez, Alvaro Armstrong, & Jaylen Romo (2012). Normative values for the voice handicap [...] CATHERIZATION stent placement ? ? PRG CATH [facility] CORONARY ART W/INJ FOR ANGIO W/R HEART CATH IMG S&I N/A 01/13/2022 CORONARY ANGIOGRAPHY; W RHC performed by Polo Beckham MD at [facility] CATH LABS ??? PRO CABG, ARTERIAL, SINGLE N/A 01/21/2022 @CABG, USING ARTERIAL GRAFT;SINGLE ARTERIAL GRAFT (WRVU 33.75) performed by Danny Antonio MD at [facility] MAIN OR ??? PRO CABG, ARTERY-VEIN, TWO N/A 01/21/2022 @CABG, TWO VENOUS GRAFTS & ARTERIAL GRAFT (WRVU 7.93) performed by Danny Antonio MD at [facility] MAIN OR ??? PRO ENDOSCOPY W/VIDEO-ASST VEIN HARVEST, CABG Right 01/21/2022 ENDOSCOPIC HARVEST VEIN(S) FOR CABG (WRVU 0.31) performed by Danny Antonio MD at [facility] MAIN OR Additional Medical History [...] will negatively impact voicing. ??? Play with Samina to see if voicing can be achieved [...] and compliance with a daily home program. Half-Way Goals: Pt will demonstrate normal results on the VHI-10. Pt will achieve enough voicing to participate in objective measurements deferred today. Pt will demonstrate improved functional voice use at work, home and in the community. If there are any questions about this report, please do not hesitate to contact me. Thank you very much for this referral. Car Grissom.S., [facility]-DIRECTOR OF OPERATIONS Speech-Language Pathologist Pager # [phone] documented in this encounter Plan of Treatment Upcoming Encounters Date Type Specialty Care Team Description 03/25/2022 Anesthesia Event Surgery Catrachita Baez MD [facility] ANESTHESIOLOGY [place], [place] [address] (Wo rk) 12/15/2022 Office Visit Cardiology Damián Hart MD [facility] [place], [place] [address] (Wo rk) 03/25/2050 Hospital Encounter Surgery Citlalli Richardson MD Vocal cord paralysis [facility] OTOLARYNGOLOGY [place], [place] [address] (Wo rk) documented as of this encounter Procedures Procedure Name Priority Date/Time Associated Diagnosis Comme nts DIRECTOR OF OPERATIONS PLAN OF CARE Routine 03/04/2022 10:41 AM EDT Vocal cord pa ralysis CERT/RE-CERT documented in this encounter Visit Diagnoses Diagnosis Vocal cord paralysis Paralysis of vocal cords or larynx, unsp ecified Vocal cord paralysis - Primary Paralysis of vocal cords or larynx, unsp ecified documented in this encounter Care Teams Lab Technologist Relationship Specialty Start Date End Date Vladimir Muñoz DO PCP - General Family Medicine 01/19/18 [address] [place] [address] documented as of this encounter
--- OUTSIDE RECORDS SUMMARY | 2022-10-07 08:51 | XMS_ITS | Encounter Summary ---
:1955 Author Organization [facility] [place] [address] Care Team Providers Name Role Phone Vladimir Muñoz DO Primary Care Provider Encounter Details Date Type Department Care Team Description 03/06/2022 Office Visit Cardiac Surgery at AntonioDanny sheriff (arteriosclerotic [facility] MD [place] cardiovascular disease) [facility] [address] [place], [place] CARDIOTHORACIC [address] SURGERY [phone] [place], [place] [address] Social History Tobacco Use Types [...] 2:40 PM EDT To: MD Vladimir Rodriguez, Re: Burton Newman ( 1955) Dear Garry, [...] office. Best personal regards, Danny Antonio MD [phone] documented in this encounter Plan of Treatment Upcoming Encounters Date Type Specialty Care Team Description 03/25/2022 Anesthesia Event Surgery Catrachita Baez MD [facility] ANESTHESIOLOGY [place], [place] [address] (Wo rk) 12/15/2022 Office Visit Cardiology Damián Hart MD [facility] [place] [address] (Wo rk) 03/25/2050 Hospital Encounter Surgery Citlalli Richardson MD Vocal cord paralysis [facility] OT[facility] [place] [address] (Wo rk) documented as of this encounter Procedures Procedure Name Priority Date/Time Associated Diagnosis Commigor nts EKG 12-LEAD Routine 03/06/2022 2:16 PM [...] 442 ms MUSE SYSTEM (Bezet) Calculated P Pilger 56 degrees MUSE SYSTEM Calculated R Pilger 40 degrees MUSE SYSTEM Calculated T Pilger -18 degrees MUSE SYSTEM INTERPRETATION Normal sinus rhythm MUSE SYSTEM T wave abnormality, consider inferolateral ischemia Abnormal ECG When compared with ECG of 21-JAN-2022 12:37, Criteria for Inferior infarct are no longer Present ST no longer elevated in Lateral leads T wave inversion now evident in Inferior leads T wave inversion now evident in Lateral leads Confirmed by MD Zhang Danette ([id number]) on 03/06/2022 5:33:51 PM Specimen Anatomical Collection Method Collection Time Receive d Time (Source) Location / / Volume Laterality 03/06/2022 2:16 PM 2 5:33 EDT PM EDT Barbara B[place] RUBIO ECG ORDERABLES Performing Organization Address City/State/ZIP Code Phon e Number MUSE SYSTEM documented in this encounter Visit Diagnoses Diagnosis Vocal cord paralysis Paralysis of vocal cords or larynx, unsp ecified ASCVD (arteriosclerotic cardiovascular d isease) Unspecified cardiovascular disease documented in this encounter Care Teams Assembly Machine Set Up Mechanic Relationship Specialty Start Date End Date Vladimir Muñoz DO PCP - General Family Medicine 01/19/18 [address] [place] [address] documented as of this encounter
--- OUTSIDE RECORDS SUMMARY | 2022-10-07 08:51 | XMS_ITS | Encounter Summary ---
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, Danny Antonio MD [facility] Percussion Tuner Rehab [facility] [place] [address] [place] [address] Fax: Referral ID Status Reason Start Date Expiration Visits Visits Date Requested Authorized [id number] Authorized Consult, 01/31/2022 01/31/2023 100 100 Test & Treat Encounter Details Date Type Department Care Team Description 03/06/2022 Office Visit Speech Therapy at [facility] Lam, Fady al cord paralysis [facility] COMMUNITY SERVICE ORGANIZATION DIRECTOR [facility] [address] [place] PHYSICAL MEDICINE & [phone] REHABILITAT [phone] [place] [address] Social History Tobacco Use Types Packs/Day Years Used Date Smoking Tobacco: Former Cigarettes Smokeless Tobacco: Never Comments: quit at age 17 Alcohol Use Standard Drinks/Week Comments Yes 2 (1 standard drink = 0.6 oz pure alcoho l) beer on weekends Sex Assigned at Date Recorded Not on file documented as of this encounter Progress Notes Cary Lam, COMMUNITY SERVICE ORGANIZATION DIRECTOR - 03/06/2022 11:00 AM EDT Speech-Language Pathology [...] and agreed upon sing song word practice. (memo harris). Pt will match voicing with right head [...] weakness as documented above. Cary Lam MS [facility]-COMMUNITY SERVICE ORGANIZATION DIRECTOR Speech-Language Pathologist Outpatient Rehabilitation Medicine Pager # [phone] documented in this encounter Plan of Treatment Upcoming Encounters Date Type Specialty Care Team Description 03/25/2022 Anesthesia Event Surgery Catrachita Baez MD [facility] ANESTHESIOLOGY [place], [place] [address] (Wo rk) 12/15/2022 Office Visit Cardiology Damián Hart MD [facility] [place], [place] [address] (Wo rk) 03/25/2050 Hospital Encounter Surgery Citlalli Richardson MD Vocal cord paralysis [facility] OTOLARYNGOLOGY [place], [place] [address] (Wo rk) documented as of this encounter Visit Diagnoses Diagnosis Vocal cord paralysis Paralysis of vocal cords or larynx, unsp ecified Vocal cord paralysis Paralysis of vocal cords or larynx, unsp ecified documented in this encounter Care Teams Gear Tester Relationship Specialty Start Date End Date Vladimir Muñoz DO PCP - General Family Medicine 01/19/[address] [place] [address] documented as of this encounter
--- OUTSIDE RECORDS SUMMARY | 2022-10-07 08:51 | XMS_ITS | Encounter Summary ---
:1955 Author Organization [facility] [place] [address] Care Team Providers Name Role Phone Vladimir Muñoz DO Primary Care Provider Encounter Details Date Type Department Care Team Description 02/03/2022 Telephone Otolaryngology at [facility] [place] [address] Social History Tobacco Use Types Packs/Day [...] and states he does not use his [employer] portal. He took down our call back number to call back later with another person to speak on his behalf. Telephone Encounter - Joana Finley - 02/03/2022 8:43 AM EDT ----- Message from Nilda Lilly sent at 02/03/2022 8:36 AM EDT ----- Regarding: FW: Appointment ----- Message ----- From: Bhakti Paredes MD Sent: 01/31/2022 11:23 AM EDT To: [facility] Otolaryngology Remediation Project Engineer Subject: Appointment Hi, can we make him a f/u visit with Dr. Richardson in 1-3 weeks ? Thanks ! CCright vocal cord paresis documented in this encounter Plan of Treatment Upcoming Encounters Date Type Specialty Care Team Description 03/25/2022 Anesthesia Event Surgery Catrachita Baez MD [facility] ANESTHESIOLOGY [place], [place] [address] (Wo rk) 12/15/2022 Office Visit Cardiology Damián Hart MD [facility] [place], [place] [address] (Wo rk) 03/25/2050 Hospital Encounter Surgery Citlalli Richardson MD Vocal cord paralysis [facility] OTOLARYNGOLOGY [place], [place] [address] (Wo rk) documented as of this encounter Visit Diagnoses Not on filedocumented in this encounter Care Teams Faucet Polisher Relationship Specialty Start Date End Date Vladimir Muñoz DO PCP - General Family Medicine 01/19/18 [address] [place] [address] documented as of this encounter
--- OUTSIDE RECORDS SUMMARY | 2022-10-07 08:51 | XMS_ITS | Encounter Summary ---
:1955 Author Organization [facility] [place] [address] Care Team Providers Name Role Phone Vladimir Muñoz DO Primary Care Provider Reason for Referral Diagnostic Test (Routine) - Authorized Specialty Diagnoses / Procedures Referred By Contact Refer red To Contact Radiology Diagnoses Vocal cord paralysis Citlalli Richardson MD [facility] Rad Ct Scan Procedures CT Neck Soft Tissue w Contrast (Generic) [facility] [place] [address] [place] [address] Referral ID Status Reason Start Expiration Visits Visits Date Date Requested Authorized [id number] Authorized Specialty 03/07/2022 09/06/2023 1 1 Service Requested Encounter Details Date Type Department Care Team Description 03/07/2022 Orders Only Otolaryngology at Citlalli Bull MD Vocal cord paralysis [facility] [address] CENTER [phone] [place], [place] [address] Social History Tobacco Use Types [...] Event Surgery Catrachita Baez MD [facility] ER ANESTHESIOLOGY [place], [place] [address] (Wo rk) 12/15/2022 Office Visit Cardiology Damián Hart MD [facility] er [place], [place] [address] (Wo rk) 03/25/2050 Hospital Encounter Surgery Citlalli Richardson MD Vocal cord paralysis [facility] OTOLARYNGOLOGY [place], [place] [address] (Wo rk) Scheduled Orders Name [...] ecified documented in this encounter Care Teams Abrasive Wheel Molder Relationship Specialty Start Date End Date Vladimir Muñoz DO PCP - General Family Medicine 01/19/18 [address] [place] [address] documented as of this encounter
--- OUTSIDE RECORDS SUMMARY | 2022-10-07 08:51 | XMS_ITS | Encounter Summary ---
:1955 Author Organization [facility] [place] [address] Care Team Providers Name Role Phone Vladimir Muñoz DO Primary Care Provider Encounter Details Date Type Department Care Team Description 03/06/2022 Hospital Encounter XRay at [facility], ASCVD [address] Barbara APRN (arteriosclerotic [facility] cardiovascular [phone] [place]) [phone] [place] [address] Social History Tobacco Use Types Packs/Day Years [...] (Glucotrol Take 2.5 mg by mouth 0 02 /11/2021 XL) 2.5 mg Tablet daily. Extended Rel [...] Baez MD [facility] ANESTHESIOLOGY [place], [place] [address] (Wo rk) 12/15/2022 Office Visit Cardiology Damián Hart MD [facility] [place], [place] [address] (Wo rk) 03/25/2050 Hospital Encounter Surgery Citlalli Richardson MD Vocal cord paralysis [facility] OTOLARYNGOLOGY [place], [place] [address] (Wo rk) documented as of [...] who have questions please contact the health care partner that requested your imaging first. ? Narrative 03/06/2022 2:59 PM EDT EXAMINATION: ??XR [...] ho have questions please contact the health care partner that requested your imaging first. Barbara Patricia PAN PULLER IMG DX ORDERABLES documented in this encounter Visit Diagnoses Diagnosis Vocal cord paralysis Paralysis of vocal cords or larynx, unsp ecified ASCVD (arteriosclerotic cardiovascular d isease) Unspecified cardiovascular disease documented in this encounter Care Teams Boat Hand Relationship Specialty Start Date End Date Vladimir Muñoz DO PCP - General Family Medicine 01/19/[address] [place] [address] documented as of this encounter
--- OUTSIDE RECORDS SUMMARY | 2022-10-07 08:51 | XMS_ITS | Encounter Summary ---
:1955 Author Organization [facility] [place] [address] Care Team Providers Name Role Phone Vladimir Muñoz DO Primary Care Provider Encounter Details Date Type Department Care Team Description 02/13/2022 Office Visit Otolaryngology at Citlalli Bull MD Vocal cord paralysis [facility] [place] [address] CENTER [phone] OTOLARYNGOLOGY [place], [place] [address] Social History Tobacco Use Types [...] Richardson MD - 02/13/2022 3:20 PM EDT [facility] Otolaryngology - Head and Neck Surgery Citlalli Richardson MD 02/13/22 4:15 PM [place] [phone] Office Patient Name: Burton Mcnair Jr. Date [...] RHC performed by Polo Beckham MD at [facility] CATH LABS ??? PRO CABG, ARTERIAL, SINGLE N/A 01/21/2022 @CABG, USING ARTERIAL GRAFT;SINGLE ARTERIAL GRAFT (WRVU 33.75) performed by Danny Antonio MD at [facility] MAIN OR ??? PRO CABG, ARTERY-VEIN, TWO N/A 01/21/2022 @CABG, TWO VENOUS GRAFTS & ARTERIAL GRAFT (WRVU 7.93) performed by Danny Antonio MD at [facility] MAIN OR ??? PRO ENDOSCOPY W/VIDEO-ASST VEIN HARVEST, CABG Right 01/21/2022 ENDOSCOPIC HARVEST VEIN(S) FOR CABG (WRVU 0.31) performed by Danny Antonio MD at [facility] MAIN OR Family and Social History Family History: Family History Problem Relation Age of Onset ??? No Known Problems Mother ??? Colorectal Cancer Father ??? Breast Cancer Sister Social History: [place] [address] Social History Socioeconomic History ??? Marital status: [...] [facility] ANESTHESIOLOGY [place], [place] [address] ( rk) 12/15/2022 Office Visit Cardiology Damián Hart MD [facility] [address] [place], [place] [address] ( rk) 03/25/2050 Hospital Encounter Surgery Citlalli Richardson MD Vocal cord paralysis [facility] ER OTOLARYNGOLOGY [place], [place] [address] (Wo rk) documented as of this encounter Visit Diagnoses Diagnosis Vocal cord paralysis Paralysis of vocal cords or larynx, unsp ecified Vocal cord paralysis Paralysis of vocal cords or larynx, unsp ecified documented in this encounter Care Teams Groundskeeper Relationship Specialty Start Date End Date Vladimir Muñoz DO PCP - General Family Medicine 01/19/[address] [place] [address] documented as of this encounter
--- OUTSIDE RECORDS SUMMARY | 2022-10-07 08:52 | XMS_ITS | Encounter Summary ---
:1955 Author Organization [facility] [place] [address] Care Team Providers Name Role Phone Vladimir Muñoz DO Primary Care Provider Reason for Referral Consultation (Routine) - Closed Specialty Diagnoses / Procedures Referred By Contact Refer red To Contact Diagnoses S/P CABG x 4 Danny Jewell MD [facility] D [place] [address] Referral ID Status Reason Start Date Expiration Date Visits V isits Requested Authorized [id number] Closed Consult, 01/31/2022 07/30/2022 36 36 Test [...] Expiration Date Visits Requ ested Visits Authorized [id number] 1 1 Encounter Details Date Type Department Care Team Description 01/21/2022 - Hospital Encounter Intermediate Cardiac Kamilah Jewell oronary artery disease involving sioux coronary artery of sioux heart, unspecified whether angina present; 01/31/2022 Care Unit Gabrielle Kellogg MD S/P CABG x [address] [facility] [address] [place] [address]69 [phone] Social History Tobacco Use Types Packs/Day Years [...] Patient Age: 66 y.o. Birthdate: 1955 Language: Russian Race: White Ethnicity: Not nor Admit Date: 01/21/2022 Discharge Date: 01/31/22 Attending Physician: Danny Jewell MD Follow-up Recommendations for Providers: ??? Please continue routine management of cardiovascular risk factors including blood pressure, lipids, glucose, etc. ??? Please note any changes to medications. ??? Patient to follow up with PCP, Vladimir Muñoz DO, in 1-2 weeks. ??? Patient to follow up with Appraisal Specialist, Dr. Hart, in 2 weeks. ??? Patient to follow up with Cardiac Surgeon, Dr. Danny Jewell, with a chest x-ray, EKG. ??? Patient to follow up with Patient to follow up with Allergy medicine, Otolaryngology and Speech Language pathology as scheduled. Inpatient Provider Contact Information: [facility] Section of Cardiac Surgery [facility] [address] FAX [phone] Discharge Diagnoses (Hospital Problems) Primary Diagnoses: CAD [...] RHC performed by Polo Beckham MD at [facility] CATH LABS ??? PRO CABG, ARTERIAL, SINGLE N/A 01/21/2022 @CABG, USING ARTERIAL GRAFT;SINGLE ARTERIAL GRAFT (WRVU 33.75) performed by Danny Jewell MD at [facility] MAIN OR ??? PRO CABG, ARTERY-VEIN, TWO N/A 01/21/2022 @CABG, TWO VENOUS GRAFTS & ARTERIAL GRAFT (WRVU 7.93) performed by Danny Jewell MD at [facility] MAIN OR ??? PRO ENDOSCOPY W/VIDEO-ASST VEIN HARVEST, CABG Right 01/21/2022 ENDOSCOPIC HARVEST VEIN(S) FOR CABG (WRVU 0.31) performed by Danny Jewell MD at [facility] MAIN OR Prior To Admission Medications [...] below. He has treated hypertension, heis a mdw-wkjwoux-bhlblarmd diabetic. He has had no known previous [...] Vinod Ochoa Jr. was admitted to [facility] on 01/21/2022 via the Same Day Program. [...] Danny Jewell and/or the Cardiac Surgery Physician Gas Jockey Team may be reached at . Weight: [...] Dr. Danny Jewell. You may use a [place] Track or treadmill but avoid any pulling [...] friends, go to a movie, go to orthodox, etc. Heavy activities: No hunting, skiing, jogging, snow shoveling, snowmobiling, lawn mowing, swimming, golf or tennis until after your return appointment with the surgeon. Do not ride motorcycles, [employer]'s tractors or horses. Avoid the use of [...] office will schedule an appointment with your Appraisal Specialist, Dr. Pickens, in 2 weeks. ??? You have an appointment with your Cardiac Surgeon, Dr. Danny Jewell, with a chest x-ray, EKG before your appointment. ??? Patient to follow up with Allergy medicine, Otolaryngology and Speech Language pathology as scheduled. Cardiac Rehabilitation: Vinod Ochoa Jr. was seen today regarding participation in the outpatient Phase 2 Cardiac Rehabilitation at [facility]. The patient agrees to a referral to this program. The referral will be sent at discharge and the patient should be contacted by the Program within 1- 2 weeks from discharge. Future Appointments and Orders Future Appointments and Orders Future Appointments Provider Department Dept Phone 02/17/2022 10:00 AM Chris Barreto MD; LILIA Clement SCHEDULE Allergy at [facility] Arrive at: [facility] [address]M [phone] 03/06/2022 2:00 PM [facility] DX ROOM [address] [facility] Arrive at: [facility] [address]T [phone] Please go to [facility]T ([place] Location). 03/06/2022 2:50 PM Danny Jewell MD Cardiac Surgery at [facility] Arrive at: [facility] [address]A [phone] 04/29/2022 3:00 PM Damián Hart MD Cardiology at [place] Arrive at: [facility] [address] [phone] Future Orders Complete By Expires Referral to Cardiac Rehab [WTC300 Custom] As directed Process Instructions: If no progress note charted, please enter Clinical details in comments. Scheduling Instructions: Questions: My question or request is: CABG Referral to Home Health - at DISCHARGE [YIT0570 CPT(R)] As directed Process Instructions: Scheduling Instructions: Comments: DOCUMENTATION FOR VNA SERVICES (INCLUDING THOSE PATIENTS WITH MEDICARE COVERAGE REQUIRING HOME VNA SERVICES AND/OR HOSPICE SERVICES) PATIENT'S LOCATION: Vinod Ochoa [address] [facility] [address] (home) Telephone Information: Rn Military's Name: Self In discussion with the attending physician, it is certified that this patient is under their care and that they, or a Nurse Practitioner, or Physician Gas Jockey who is working directly with them, had [...] need for servicesas follows: HOME HEALTH AGENCY: [facility] in [place], [place] and [phone] RN orders: Cardiopulmonary assessment, incisional assessment, assess vital signs, assessment of rehab progress, medication management and effectiveness, home safety evaluation. PT ORDERS: Continue rehab for endurance, gait stability and strength with mobility and transfers. Home safety evaluation. Home exercise program if appropriate. WARP KNITTER ORDERS: assess and assist with community support needs Start of Care Date: 24 to 48 hours SPECIAL INSTRUCTIONS: For any follow up questions, needs, or issues please call the Cardiac Surgery Office at [phone] FOR MEDICARE ONLY: (please delete this section [...] noted. Questions: Agency name and contact information: [facility] Patient location post discharge: Home What services are requested: Registered Nurse Physical Therapy Start date: Responsible MD post discharge contact info: PCP and cardiology Dr. Danny Jewell Arrangements for VNA/home care: As above. VN RN OR PCP TO PLEASE REMOVE CHEST TUBE SUTURES ON OR AFTER 01/31/22 Signed: Manan Lovelace PA-C [facility] Section of Cardiac Surgery [facility] [address] FAX [phone] Date: 01/31/2022 CC: DO Best Hassan Jock N, MD [facility] DR [place] [address] documented in this encounter Discharge Instructions Patient [...] Danny Jewell and/or the Cardiac Surgery Physician Gas Jockey Team may be reached at . Weight: [...] Dr. Danny Jewell. You may use a [place] Track or treadmill but avoid any pulling [...] friends, go to a movie, go to orthodox, etc. Heavy activities: No hunting, skiing, jogging, snow shoveling, snowmobiling, lawn mowing, swimming, golf or tennis until after your return appointment with the surgeon. Do not ride motorcycles, [employer]'s tractors or horses. Avoid the use of [...] office will schedule an appointment with your Appraisal Specialist, Dr. Pickens, in 2 weeks. You have an appointment with your Cardiac Surgeon, Dr. Danny Jewell, with a chest x-ray, EKG before your appointment. Patient to follow up with Allergy medicine, Otolaryngology and Speech Language pathology as scheduled. Cardiac Rehabilitation: Vinod Ochoa Jr. was seen today regarding participation in the outpatient Phase 2 Cardiac Rehabilitation at [facility]. The patient agrees to a referral to [...] provided. IV/tele removed. Pt wheeled down to [facility] for discharge. Lina Gamez - 01/31/2022 1:37 [...] consulted in the interim. Lina Gamez Pager: [phone] Felisa Joy, [facility]ER [facility]T [facility]APER - 01/31/2022 12:47 PM EDT Speech-Language Pathology Consult Note Vinod cOhoa Jr. is a 66 y.o. male with CAD who is 10 Days Post-Op cabg x 3. PMH of CAD with PCI Hx, DM II, HLD. 24h Events: MORENA Voice remains hoarse Clonidine increased to 0.2'' PO hydralazine stopped SBP to 150 Order received and records reviewed. Discussed pt w/ PA and met w/ pt. Pt about to be DC'd from [facility], anxious to go home. Pt w/ noticeable moderate breathy hypophonia, low volume. Pt states that his voice has gradually improved since surgery (he reports he was initially aphonic). 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 Pt going to attend Cardiac Rehab at [facility] in [place], [place] in coming weeks. Pt would like voice therapy as well. Unfortunately, from review of website, no OP LEATHER BELT SHAPER services appear to be offered by that hospital. Also says he is close to [facility], but review of their website also w/o mention of OP [facility]ATHER BELT SHAPER services. I offered to pt that he could be seen by [facility] voice therapist TeleHealth, however, he declines this as he does not have a computer or tablet at home and is not comfortable w/ technology. I suggested to PA that he put in a referral for OP voice therapy here at [facility] and schedule it for 4 weeks from now, when pt plans to return to [facility] to be re- checked by ENT. Pt hopefullywill continue to have improvements in his voice quality spontaneously (as he has in past few days asper his report). Pt notes that his voice is now strong enough to be understood by family and practiti oners, and on the phone. Pt can contact [facility] OP LEATHER BELT SHAPER therapy if he has concerns or questions in interim. [phone]. Felisa Joy MA [facility]ER [facility]T [facility] Inpatient Rehabilitation Medicine pager:# [phone] Manan Lovelace PA - 01/31/2022 8:37 AM [...] Cardiogenic shock resolved. Post-op delirium-resolved - Consult [facility]ER [facility]T [facility] for eval and ENT for laryngoscopy - [...] 0600 and on the weekends please page [phone]. Elizabeth Leija, RN - 01/31/2022 2:31 AM EDT Pt AAOx4 NSR on tele- see scanned docs. VSS on RA. Denies any pain or SOB. Sternal incision CDI. Pt ambulated independently to bathroom and around unit. Rested comfortably between care. Call ballesteros within reach. Kenny Berumen - 01/30/2022 8:09 PM EDT Harvey Encounter Note Patient Name: Vinod Ochoa Jr. : [id number] MR#: [id number] Admit Date: 01/21/2022 5:47 AM Hospital Day [...] occurred. He looks forward togoing home. Follow-up: Leather Lacer is available as needed. Time in Direct Care: 5 min. Kenny Berumen 01/30/2022 Chris Thompson PT - 01/30/2022 3:53 [...] set-up. Pt stated that he lives in [place]. Precautions/Special Considerations: STERNAL PRECAUTIONS (No pushing, pulling [...] with plan as stated. Time IN / OUT:4246-6807 Total Minutes, Physical Therapy: 15 mins (te-fx2) Chris Thompson PT Pager: [phone] Physical Therapy Inpatient Rehabilitation Department Manan Lovelace [...] 0600 and on the weekends please page [phone]. Elizabeth Leija RN - 01/30/2022 3:43 AM EDT Pt AAOx4 NSR on tele.VSS on RA. PRN hydralazine given x1 for SBP of 156. Sternal incision cdi. Denies any pain or SOB.Ambulated independently in room. No episodes of hallucination overnight.Call ballesteros within reach. Librado Cueva PA - 01/29/2022 8:27 AM EDT Cardiac Surgery Progress Note Vinod Ochoa JrChelsey is a 66 y.o. male with CAD [...] 0600 and on the weekends please page [phone]. Ayaka Caldwell, PT - 01/28/2022 5:19 PM [...] set-up. Pt stated that he lives in [place]. ?? Precautions/Special Considerations: STERNAL PRECAUTIONS (No pushing, [...] with plan as stated. Time IN / OUT:0261-9374 Total Minutes, Physical Therapy: 24 Billing Code: te-fx2 AYAKA CALDWELL, PT Pager: [phone] Physical Therapy Inpatient Rehabilitation Department Linda Villafuerte - 01/28/2022 3:52 PM EDT Leather Lacer Encounter Note Patient Name: Vinod Ochoa Jr. : [id number] MR#: [id number] Admit Date: 01/21/2022 5:47 AM Hospital Day [...] up. Active Orders Diet Carb Control diet 60// [...] nausea and no vomiting Last Bowel Movement: (DIAL MOUNTER) Patient education / questions: all nutrition related questions answered at this time Nutrition services to follow weekly through hospital course unless consulted in the interim. Tanja Romeo, ARACELI [phone] Librado Cueva PA - 01/28/2022 10:22 AM [...] 0600 and on the weekends please page [phone]. Rolanda Zhang MD - 01/27/2022 10:56 AM [...] 0600 and on the weekends please page [phone]. Ayaka Caldwell, PT - 01/27/2022 2:58 AM EDT Physical Therapy Note Treatment Number PT: 2 Patient profile: Vinod Ochoa .??is a 66 y.o.??male??with CAD who is 5 [...] set-up. Pt stated that he lives in [place]. Precautions/Special Considerations: STERNAL PRECAUTIONS (No pushing, pulling [...] cervical flex/ext and rotations Assessment: Vinod Ochoa Jr. was seen today [...] Therapy: 28 Billing Code: TAx2 Debbi Waters, [facility] Physical Therapy Inpatient Rehabilitation Department I was present for this rx and agree with the contents of this note. Ayaka Caldwell PT #[id number] Chris Thompson, PT - 01/26/2022 2:50 PM [...] CATHERIZATION stent placement ? ? PRG CATH [facility] CORONARY ART W/INJ FOR ANGIO W/R HEART CATH IMG S&I N/A 01/13/2022 CORONARY ANGIOGRAPHY; W RHC performed by Polo Beckham MD at [facility] CATH LABS ??? PRO CABG, ARTERIAL, SINGLE N/A 01/21/2022 @CABG, USING ARTERIAL GRAFT;SINGLE ARTERIAL GRAFT (WRVU 33.75) performed by Danny Jewell MD at [facility] MAIN OR ??? PRO CABG, ARTERY-VEIN, TWO N/A 01/21/2022 @CABG, TWO VENOUS GRAFTS & ARTERIAL GRAFT (WRVU 7.93) performed by Danny Jewell MD at [facility] MAIN OR ??? PRO ENDOSCOPY W/VIDEO-ASST VEIN HARVEST, CABG Right 01/21/2022 ENDOSCOPIC HARVEST VEIN(S) FOR CABG (WRVU 0.31) performed by Danny Jewell MD at [facility] MAIN OR Social History: Pt able [...] in this evaluation. CHRIS THOMPSON, PT Pager: [phone] Physical Therapy Inpatient Rehabilitation Department Time IN / OUT: 6358-2027 Total time: 38 mins ( eval) Damián [...] 0600 and on the weekends please page [phone]. Lizzie Montes DT - 01/26/2022 8:15 AM [...] lb) Weight loss: none ARACELI Loo Pager: [phone] Aron Darling MD - 01/26/2022 6:10 AM EDT CARDIAC CRITICAL CARE STAFF PROGRESS NOTE Author: Aron Darling MD, PhD Patient seen and examined on critical care rounds. [id number] Vinod Ochoa Jr. is a 66 y.o.male [...] Primary * Luiz Viramontes PA - Physician Gas Jockey * Librado Cueva PA - Physician Gas Jockey 24 HOUR EVENTS: Delirious, impulsive overnight Precedex [...] Rate from SpO2: [74 bpm-115 bpm] 01/24 700 - 01/25 0700 In: 2787.8 [I.V.:2487.8] Out: [...] 0600 and on the weekends please page [phone]. Aron Darling MD - 01/25/2022 6:02 AM EST CARDIAC CRITICAL CARE STAFF PROGRESS NOTE Author: Aron Darling MD, PhD Patient seen and examined on critical care rounds. [id number] Vinod Ochoa Jr. is a 66 y.o.male [...] Primary * Luiz Viramontes PA - Physician Gas Jockey * Librado Cueva PA - Physician Gas Jockey 24 HOUR EVENTS: Extubated yesterday AM 3L [...] possible. CI > 3 at time of Letcher removal, hypertensive on NTG gtt. Uptitrate BB [...] deterioration? No Aron Darling MD, PhD Johnny Buenrostro, [facility] - 01/24/2022 1:52 PM EST Respiratory Therapy NIV Note NIV Settings: NC 6L NIV Mode: CPAP EPAP (cmH20): 5 FiO2 (%): 45 % O2 Bleed In (LPM): 0 L/min NIV Measurements: Resp: 14 Mve: 12.5 Leak (L/min): 35 L/min Vte: 417 SpO2: 96 % Laboratory: Lab Results Component Value Date/Time PHART 7.42 01/24/2022 09:43 AM [id number] 38 01/24/2022 09:43 AM PO2ART 65 (L) 01/24/2022 09:43 AM OIK1IIK 24.5 01/24/2022 09:43 AM BEART 0.0 01/24/2022 [...] who have questions please contact the health careers counsellor that requested your imaging first. Electronically signed by: Catrachito Cisneros MD, [facility] ([phone]), at 01/21/2022 1:00 PM Skin Assessment: NIV [...] c/d/i Tubes/Lines/Drains: piv, dailey, danielle, TPW, RIJ, blue Assessment/Plan: 66 y.o. male 3 Days Post-Op [...] 0600 and on the weekends please page [phone]. Aron Darling MD - 01/24/2022 5:07 AM EST CARDIAC CRITICAL CARE STAFF PROGRESS NOTE Author: Aron Darling MD, PhD Patient seen and examined on critical care rounds. [id number] Vinod Ochoa Jr. is a 66 y.o.male [...] Primary * Luiz Viramontes PA - Physician Gas Jockey * Librado Cueva PA - Physician Gas Jockey 24 HOUR EVENTS: Epi weaned to off [...] RN aware of pt's status. Uriel Sinha, NAEEM Beeper# [id number] Damián Grove PA - 01/23/2022 [...] c/d/i Tubes/Lines/Drains: piv, dailey, danielle, TPW, CTs, RIJessie, blue Assessment/Plan: 66 y.o. male 2 Days Post-Op [...] 0600 and on the weekends please page [phone]. Christiane Syed RCP - 01/23/2022 5:36 AM [...] vent as tolerated. Christiane Syed RCP Aron Darling MD - 01/23/2022 5:27 AM EST CARDIAC CRITICAL CARE STAFF PROGRESS NOTE Author: Aron Darling MD, PhD Patient seen and examined on critical care rounds. [id number] Vinod Ochoa Jr. is a 66 y.o.male [...] Primary * Luiz Viramontes PA - Physician Gas Jockey * Librado Cueva PA - Physician Gas Jockey 24 HOUR EVENTS: Improving CI and UOP [...] Salazar MSW - 01/22/2022 4:59 PM EST WARP KNITTER followed up on social work referral to complete Advance Directives. Pt has been intubated today and [facility]'s Supervisor Vegetable Farming plans to follow up with pt tomorrow (or when extubated) to see if patient does want to compete his Advance Directive. PLAN: Either physician relations specialist or WARP KNITTER to follow up with pt re advance directives once he is extubated. Mariana Zelaya [facility] [phone] Chris Thompson PT - 01/22/2022 4:01 PM EST PT Note Pt is POD# 1. Physical Therapy referral received. Pt currently intubated/sedated. Not yet approp forPT evaluation. Will follow-up as approp for eval Chris Thompson, PT Pager [phone] Gala Matamoros, RN - 01/22/2022 11:58 AM EST Reached out to family members for completion of IA. SonAlex unavailable recommended calling daughter Barbara. Left message for Barbara with her to call this RNCM when she returns home from work. stated he would registered safety engineer her the message. Damián Grove PA - [...] 15/650/50%/8 01/21 0701 - 01/22 0700 In: 23779.4 [I.V.:8872.4] Out: 1909 [Urine:674] CT Med: 430/140 [...] 0600 and on the weekends please page [phone]. Christiane Syed RCP - 01/22/2022 6:09 AM [...] seen and examined on critical care rounds. [id number] Vinod Ochoa Jr. is a 66 y.o.male [...] Primary * Luiz Viramontes PA - Physician Gas Jockey * Librado Cueva PA - Physician Gas Jockey 24 HOUR EVENTS: Suspected anaphylaxis to albumin [...] the unit. Aron Darling MD, PhD Kirill Padron RN - 01/21/2022 7:38 PM EST Patient had episode of hypotension after arrival to [facility]. Initially, the hypotension was able to [...] will improve over time. Danny Jewell MD [phone] Carmen Stout, [facility] - 01/21/2022 3:34 PM EST Respiratory Care [...] plan since last visit. Danny Jewell MD [phone] Source Note - Danny Jewell MD - [...] below. He has treated hypertension, heis a ouu-yrsokfa-qrwgqdqqs diabetic. He has had no known previous [...] given written informed consent. Danny Jewell MD [phone] Danny Jewell MD - 01/21/2022 6:50 AM [...] below. He has treated hypertension, heis a qmo-eqmcwnu-tgvujlgek diabetic. He has had no known previous [...] given written informed consent. Danny Jewell MD [phone] documented in this encounter Nursing Notes Gabi Mendez RN - 01/21/2022 8:56 AM EST Pt informed on surgery start @ 0854 documented in this encounter Miscellaneous Notes Consult Note - Ayana Argueta RN - 01/31/2022 10:[address] [facility] CARDIAC REHABILITATION Vinod Ochoa Jr. was seen today regarding participation in the outpatient Phase 2 Cardiac Rehabilitation at [facility]. The patient agrees to a referral to [...] CATHERIZATION stent placement ? ? PRG CATH [facility] CORONARY ART W/INJ FOR ANGIO W/R HEART CATH IMG S&I N/A 01/13/2022 CORONARY ANGIOGRAPHY; W RHC performed by Polo Beckham MD at [facility] CATH LABS ??? PRO CABG, ARTERIAL, SINGLE N/A 01/21/2022 @CABG, USING ARTERIAL GRAFT;SINGLE ARTERIAL GRAFT (WRVU 33.75) performed by Danny Jewell MD at [facility] OR ??? PRO CABG, ARTERY-VEIN, TWO N/A 01/21/2022 @CABG, TWO VENOUS GRAFTS & ARTERIAL GRAFT (WRVU 7.93) performed by Danny Jewell MD at [facility] OR ??? PRO ENDOSCOPY W/VIDEO-ASST VEIN HARVEST, CABG Right 01/21/2022 ENDOSCOPIC HARVEST VEIN(S) FOR CABG (WRVU 0.31) performed by Danny Jewell MD at [facility] OR Medications & Allergies No current facility-administered [...] products and Lisinopril Social History Lives in [place] [address] Social History Socioeconomic History ??? Marital status: [...] for him the continue to work with LEATHER BELT SHAPER in the interim and f/u with ENT. If his symptoms do not improve, we will undergo further investigation as to the etiology of his symptoms and have treatment options to improve his dysphonia. Recommendations: 1. Continue to work with [facility]ER 2. Plan for ENT f/u OP, appointment requested __ Bhakti Paredes MD, PGY-2 02/01/22 9:35 AM ENT Team Pager: [phone] Care Management - Gala Matamoros RN - [...] shock resolved. Post-op delirium-resolved ?? - Consult [facility]ER for eval and ENT for laryngoscopy - [...] work and living out of the area. WARP KNITTER was added to VN order to assist family with community support resources. RNCM recommended private hospice home care coordinator to support patient as hetransitioned to home [...] SUPPLEMENT Prescription Coverage: Yes Preferred Pharmacy: [facility] [place] [address], [place] - [address] [facility] [address] [facility] [phone] Plan for discharge is: Home w/ Services Home Health Services: Registered Nurse, Physical Therapy Agency Referrals & Follow-up Care: Contact information for follow-up [address] [address] For Nursing, PT and WARP KNITTER service Transportation: family or friend will provide Sister Barbara is planning on transporting at discharge Barriers to discharge: none Plan going forward: Care Management will continue to follow and assist with discharge planning and coordination of care as indicated. Anticipated Date of Discharge: 01/31/2022 Gala Matamoros teacher drama [employer] Care Management - Gala Matamoros RN [...] Type: *No Product type* / Secondary Insurance: [employer] MED[employer]ARE SUPPLEMENT Prescription Coverage: Yes Preferred [facility]acy: [facility] [place] [address], [place] - [address] [place] [phone] Plan for discharge is: Home w/ Services Home Health Services: Registered Nurse, Physical Therapy Agency Referrals & Follow-up Care: Contact information for follow-up [address] [address] Transportation: family or friend will provide Sister [...] SUPPLEMENT Prescription Coverage: Yes Preferred Pharmacy: [facility] [place] [address], [place] - [address] [place] [phone] Plan for discharge is: Pending Hospital Course [...] COVID test: Lab Results Component Value Date [id number] Not Detected 01/22/2022 Past medical History: Past [...] own residence. Surgeon has been communicating with SonAlex. Patient is intubated at the moment. If AD's have not been completed Alex Trevizo would be surrogate decision maker per [place] surrogate decision making law. (Only good for 180 days) Any patient receiving care at [facility] must abide by [place] law. The hierarchy for surrogate decision making [...] (i) The agent with financial power of transactional attorney or a conservator appointed in accordance [...] confirmed as: Mailing address [address] [place] [phone] Unable to obtain home address for his new residence during this call. Social & Family Supports: All names listed below confirmed with patient as current and correct Extended Emergency Contact Information Primary Emergency Contact: Justin Ochoa [facility] Mobile Relation: Spouse Secondary Emergency Contact: Alex Ochoa Mobile Relation: Child Mother: Ying Ochoa [facility] Current Care Provided by: self Provides Primary [...] MEDICARE SUPPLEMENT Prescription Coverage: Yes Preferred Pharmacy: [address] [phone] Jeffrey Status: Patient is a : No Primary Care Provider: Vladimir Muñoz DO [phone] Patient/Caregiver Goals of Treatment: family wants to support patient in returning to his home Potential Needs for Transition of Care: none Agency Referrals: ESTEFANIA CHAVES and 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 affiliations were identified and they were educated about their right to choose where referrals are placed. Patient requests referral to [facility] in [place], [place] and [phone] Expected date of discharge:01/28/2022 Referral routed to the Supervisor Vegetable [employer]ing for matching with agency/vendor and to provide [...] at time of arrival to [facility]. 1212 blood pressure 122/73 P80 SpO2 [...] IV 1443 got human albumin Spoke with CV team directly including 5 team members who [...] CATHERIZATION stent placement ? ? PRG CATH [facility] CORONARY ART W/INJ FOR ANGIO W/R HEART CATH IM S&I N/A 01/13/2022 CORONARY ANGIOGRAPHY; W RHC performed by Polo Beckham MD at [facility] ??? atorvastatin (Lipitor) tablet [...] reduce the risk of reacting. 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 2 hours were spent on consult in detailed record review, consultation with primary team, examinationof patient, and documentation. Chris Barreto MD [phone] Brief Op Note - Danny Jewell MD - 01/21/2022 11:59 AM EST Brief Operative Note Patient Name: Vinod Ochoa Jr. : [id number] MR#: [id number] Case Date: 01/21/2022 Surgeon: Surgeon(s) and Role: * Danny Jewell MD - Primary * Luiz Viramontes PA - Physician Gas Jockey * Librado Cueva PA - Physician Gas Jockey Preoperative diagnosis: CAD Postoperative diagnosis: CAD, diffusely [...] Drains: Mediastinal and pleural Disposition: [facility] Condition: Stable Attestation: Case Date: 01/21/2022 I was present and I participated during the entire procedure (does not need to include opening and closing). DANNY JEWELL MD 01/21/2022 Op Note - Danny Jewell MD - 01/21/2022 8:[address] [facility] Operative Note Patient Name: Vinod Ochoa Jr. : [id number] MR#: [id number] Case Date: 01/21/2022 Surgeon: Surgeon(s) and Role: * Danny Jewell MD - Primary * Luiz Viramontes PA - Physician Gas Jockey * Librado Cueva PA - Physician Gas Jockey ?? Preoperative diagnosis: CAD ?? Postoperative diagnosis: [...] Baez MD [facility] ANESTHESIOLOGY [place], [place] 0[address] (Wo rk) 12/15/2022 Office Visit Cardiology Damián Hart MD [facility] [place], [place] [address] (Wo rk) 03/25/2050 Hospital Encounter Surgery Citlalli Richardson MD Vocal cord paralysis [facility] OTOLARYNGOLOGY [place], [place] [address] (Wo rk) Scheduled Referrals Name [...] disease involving p rocedure are in OR sioux coronary the results artery of sioux section. heart, unspecified whether angina present PREPARE RBC STAT 01/21/2022 6:35 Results for this AM EST procedure are i n the results section. POCT GLUCOSE Routine 01/21/2022 6:26 Results for this AM EST procedure are i n the results section. documented in this encounter Results POCT Glucose (01/31/2022 11:38 AM EDT) athologist Signature POC Glucose 149 65 - 199 [facility] mg/dL [facility] Comment: Supplemental ranges: <140 mg/dL before meals <180 mg/dL all other times of the day Specimen Anatomical Collection Method Collection Time Receive d Time (Source) Location / / Volume Laterality Blood 01/31/2022 11:38 01/31/2022 AM EDT 11:38 AM EDT Danny Jewell MD POINT OF CARE TEST ORDERABLE S Performing Organization Address City/State/Z[place] [address] POCT Glucose (01/31/2022 7:37 AM EDT) athologist Signature POC Glucose 141 65 - 199 [facility] mg/dL [facility] Comment: Supplemental ranges: <140 mg/dL before meals <180 mg/dL all other times of the day Specimen Anatomical Collection Method Collection Time Receive d Time (Source) Location / / Volume Laterality Blood 01/31/2022 7:37 AM 2 7:37 EDT AM EDT Danny Jewell MD POINT OF CARE TEST ORDERABLE S Performing Organization Address City/State/[place] [address] Potassium (01/31/2022 4:23 AM EDT) athologist Signature Potassium 3.7 3.5 - 5.0 [facility] mmol/L [facility] Comment: Please note: ??Patients [...] Jewell MD CHEMISTRY ORDERABLES Performing Organization Address City/[facility]/[place] [address] POCT Glucose (01/30/2022 8:33 PM EDT) athologist Signature POC Glucose 132 65 - 199 [facility] mg[facility]dL [facility] Comment: Supplemental ranges: <140 mg/dL before meals <180 mg/dL all other times of the day Specimen Anatomical Collection Method Collection Time Receive d Time (Source) Location / / Volume Laterality Blood 01/30/2022 8:33 PM 2 8:33 EDT PM EDT Danny Jewell MD POINT OF CARE TEST ORDERABLE S Performing Organization Address City/[facility]/[place] [address] POCT Glucose (01/30/2022 4:24 PM EDT) athologist Signature POC Glucose 154 65 - [address] [facility] mg/dL [facility] Comment: Supplemental ranges: <140 mg/dL before meals <180 mg/dL all other times of the day Specimen Anatomical Collection Method Collection Time Receive d Time (Source) Location / / Volume Laterality Blood 01/30/2022 4:24 PM 2 4:24 EDT PM EDT Danny Jewell MD POINT OF CARE TEST ORDERABLE S Performing Organization Address City/State/ZIP Code Phon e Number [address] POCT Glucose (01/30/2022 11:49 AM EDT) P athologist Signature POC Glucose 158 65 - 199 [place] mg/dL [facility] Comment: Supplemental ranges: <140 mg/dL before meals <180 mg/dL all other times of the day Specimen Anatomical Collection Method Collection Time Receive d Time (Source) Location / / Volume Laterality Blood 01/30/2022 11:49 01/30/2022 AM EDT 11:49 AM EDT Danny Jewell MD POINT OF CARE TEST ORDERABLE S Performing Organization Address City/[facility]/[place] [address] Tryptase (01/30/2022 9:36 AM EDT) P athologist Signature Tryptase 4.3 <=8.4 ng/mL [facility] Comment: Total tryptase concentrations that [...] Organization Address City/State/ZIP Code Phon e Number [address] POCT Glucose (01/30/2022 7:30 AM EDT) P athologist Signature POC Glucose 123 65 - 199 [facility] mg/dL [facility] Comment: Supplemental ranges: <140 mg/dL before meals <180 mg/dL all other times of the day Specimen Anatomical Collection Method Collection Time Receive d Time (Source) Location / / Volume Laterality Blood 01/30/2022 7:30 AM 2 7:30 EDT AM EDT Danny Jewell MD POINT OF CARE TEST ORDERABLE S Performing Organization Address City/[facility]/[place] [address] (ABNORMAL) Potassium (01/30/2022 4:29 AM EDT) athologist Signature Potassium 3.2 (L) 3.5 - 5.0 [facility] mmol/L [facility] Comment: Please note: ??Patients [...] Jewell MD CHEMISTRY ORDERABLES Performing Organization Address City/[facility]/[place] [address] POCT Glucose (01/29/2022 7:11 PM EDT) athologist Signature POC Glucose 137 65 - [address] [facility] mg/dL [facility] Comment: Supplemental ranges: <140 mg/dL before meals <180 mg/dL all other times of the day Specimen Anatomical Collection Method Collection Time Receive d Time (Source) Location / / Volume Laterality Blood 01/29/2022 7:11 PM 2 7:11 EDT PM EDT Danny Jewell MD POINT OF CARE TEST ORDERABLE S Performing Organization Address City/[facility]/[place] [address] POCT Glucose (01/29/2022 4:04 PM EDT) athologist Signature POC Glucose 146 65 - 199 [place] mg/dL [facility] Comment: Supplemental ranges: <140 mg/dL before meals <180 mg/dL all other times of the day Specimen Anatomical Collection Method Collection Time Receive d Time (Source) Location / / Volume Laterality Blood 01/29/2022 4:04 PM 2 4:04 EDT PM EDT Danny Jewell MD POINT OF CARE TEST ORDERABLE S Performing Organization Address City/State/ZIP Code Phon e Number [address] POCT Glucose (01/29/2022 11:40 AM EDT) athologist Signature POC Glucose 167 65 - 199 [place] mg/dL [facility] Comment: Supplemental ranges: <140 mg/dL before meals <180 mg/dL all other times of the day Specimen Anatomical Collection Method Collection Time Receive d Time (Source) Location / / Volume Laterality Blood 01/29/2022 11:40 01/29/2022 AM EDT 11:40 AM EDT Danny Jewell MD POINT OF CARE TEST ORDERABLE S Performing Organization Address City/State/ZIP Code Phon e Number [address] POCT Glucose (01/29/2022 7:32 AM EDT) athologist Signature POC Glucose 141 65 - 199 [place] mg/dL [facility] Comment: Supplemental ranges: <140 mg/dL before meals <180 mg/dL all other times of the day Specimen Anatomical Collection Method Collection Time Receive d Time (Source) Location / / Volume Laterality Blood 01/29/2022 7:32 AM 7:32 EDT AM EDT Danny Jewell MD POINT OF CARE TEST ORDERABLE S Performing Organization Address City/State/[place] [address] Differential, Automated (01/29/2022 2:15 AM EDT) P athologist Signature Neutrophils % 70.5 % [facility] Neutr Abs (ANC) 5.95 1.70 - [facility] 6.10 [facility] x10(3)/[facility] LABORATORY Lymphocytes % 13.3 % [facility] Lymphocytes Abs 1.1 0.9 - 3.2 [facility] x10(3)/[facility] LABORATORY Monocytes % 11.0 % [facility] Monocyte Abs 0.9 0.3 - 0.9 [facility] x10(3)/[facility] LABORATORY Eosinophils % 4.1 % [facility] Eosinophils Abs 0.4 0.0 - 0.4 [facility] x10(3)/[facility] LABORATORY Basophils % 0.6 % [facility] Basophils Abs 0.0 0.0 - 0.1 [facility] x10(3)/[facility] LABORATORY Immature Gran % 0.50 % [facility] Comment: Immature granulocytes(IG's)percentage an d absolute count will include metamyelocytes, myelocytes, and promyelo cytes. Blood smears from CBCs yielding IG's will be scanned manually for concor dance. If this scan disagrees with the automated IG or if promyelocytes are not ed, a manual differential will be performed. Nikole Gran Abs 0.04 0.00 - 0.04 x10(3)/[facility] LAB[facility]ATORY Specimen Anatomical Collection Method Collection Time Receive d Time (Source) Location / / Volume Laterality Blood 01/29/2022 2:15 AM 2:26 EDT AM EDT Resulting Agency Comment Spec In Lab Damián TOUSSAINT HEMATOLOGY ORDERABLES Performing Organization Address City/State/Z[place] [address] (ABNORMAL) Hemogram (01/29/2022 2:15 AM EDT) Analysis Performed At Patho logist Time Signature WBC 8.4 4.0 - 9.5 [facility] x10(3)/[facility] LABORATORY RBC 2.77 (L) 4.58 - [place] 5.54 [facility] x10(6)/[facility] LABORATORY Hemoglobin 8.7 (L) 13.7 - [facility] 16.5 g/dL [facility]ORY Hematocrit 25.6 (L) 40.5 - [facility] 48.5 % [facility]ORY MCV 92.4 82.9 - [facility] 93.1 [facility] LABORATORY MCH 31.4 27.5 - [facility] 32.1 pg [facility] LAB[facility]ATORY MCHC 34.0 32.0 - [facility] 35.7 g/dL [facility] Platelets 282 145 - 357 [facility] x10(3)/[facility] LABORATORY RDWSD 45.9 (H) 36.0 - [facility] 45.0 [facility] LABORATORY RDWCV 13.8 11.4 - [place] 13.8 % [facility] LABORATORY MPV 9.3 7.6 - 12.9 [facility] LABORATORY nRBC % Auto 0.0 % [facility] LAB[facility] nRBC Abs Auto 0.000 0.000 - [facility] 0.000 [facility] x10(3)/[facility] LABORATORY Specimen Anatomical Collection Method Collection Time Receive d Time (Source) Location / / Volume Laterality Blood 01/29/2022 2:15 AM 2 2:26 EDT AM EDT Resulting Agency Comment Spec In Lab Damián TOUSSAINT HEMATOLOGY ORDERABLES Performing Organization Address City/State/ZIP [place] [address] Potassium (01/29/2022 2:15 AM EDT) P athologist Signature Potassium 3.8 3.5 - 5.0 [facility] mmol/L [facility] Comment: Please note: ??Patients [...] Organization Address City/State/ZIP Code Phon e Number [address] POCT Glucose (01/28/2022 9:23 PM EDT) athologist Signature POC Glucose 146 65 - 199 [place] mg/dL [facility] Comment: Supplemental ranges: <140 mg/dL before meals <180 mg/dL all other times of the day Specimen Anatomical Collection Method Collection Time Receive d Time (Source) Location / / Volume Laterality Blood 01/28/2022 9:23 PM 2 9:23 EDT PM EDT Danny Jewell MD POINT OF CARE TEST ORDERABLE S Performing Organization Address City/State/[place] [address] POCT Glucose (01/28/2022 4:51 PM EDT) athologist Signature POC Glucose 177 65 - 199 [place] mg/dL [facility] Comment: Supplemental ranges: <140 mg/dL before meals <180 mg/dL all other times of the day Specimen Anatomical Collection Method Collection Time Receive d Time (Source) Location / / Volume Laterality Blood 01/28/2022 4:51 PM 2 4:51 EDT PM EDT Danny Jewell MD POINT OF CARE TEST ORDERABLE S Performing Organization Address City/State/[place] [address] POCT Glucose (01/28/2022 12:15 PM EDT) athologist Signature POC Glucose 150 65 - 199 [place] mg/dL [facility] Comment: Supplemental ranges: <140 mg/dL before meals <180 mg/dL all other times of the day Specimen Anatomical Collection Method Collection Time Receive d Time (Source) Location / / Volume Laterality Blood 01/28/2022 12:15 01/28/2022 PM EDT 12:15 PM EDT Danny Jewell MD POINT OF CARE TEST ORDERABLE S Performing Organization Address City/[facility]/[place] [address] POCT Glucose (01/28/2022 8:13 AM EDT) athologist Signature POC Glucose 135 65 - [address] [facility] mg/dL [facility] Comment: Supplemental ranges: <140 mg/dL before meals <180 mg/dL all other times of the day Specimen Anatomical Collection Method Collection Time Receive d Time (Source) Location / / Volume Laterality Blood 01/28/2022 8:13 AM 2 8:13 EDT AM EDT Danny Jewell MD POINT OF CARE TEST ORDERABLE S Performing Organization Address City/[facility]/[place] [address] Potassium (01/28/2022 2:17 AM EDT) athologist Signature Potassium 3.5 3.5 - 5.0 [facility]/L [facility] Comment: Please note: ??Patients [...] Jewell MD CHEMISTRY ORDERABLES Performing Organization Address City/[facility]/ZIP Code Phon e Number [address] POCT Glucose (01/27/2022 11:57 PM EDT) athologist Signature POC Glucose 141 65 - [address] [facility] mg/dL [facility] Comment: Supplemental ranges: <140 mg/dL before meals <180 mg/dL all other times of the day Specimen Anatomical Collection Method Collection Time Receive d Time (Source) Location / / Volume Laterality Blood 01/27/2022 11:57 01/27/2022 PM EDT 11:57 PM EDT Danny Jewell MD POINT OF CARE TEST ORDERABLE S Performing Organization Address City/[facility]/ZIP Code Phon e Number [address] POCT Glucose (01/27/2022 5:19 PM EDT) athologist Signature POC Glucose 147 65 - [address] [facility] mg/dL [facility] Comment: Supplemental ranges: <140 mg/dL before meals <180 mg/dL all other times of the day Specimen Anatomical Collection Method Collection Time Receive d Time (Source) Location / / Volume Laterality Blood 01/27/2022 5:19 PM 2 5:19 EDT PM EDT Danny Jewell MD POINT OF CARE TEST ORDERABLE S Performing Organization Address City/[facility]/[place] [address] Potassium (01/27/2022 5:05 PM EDT) athologist Signature Potassium 3.9 3.5 - 5.[address] [facility] mmol/L [facility] Comment: Please note: ??Patients [...] Jewell MD CHEMISTRY ORDERABLES Performing Organization Address City/[facility]/[place] [address] POCT Glucose (01/27/2022 12:29 PM EDT) P athologist Signature POC Glucose 166 65 - 199 [place] mg/dL [facility] Comment: Supplemental ranges: <140 mg/dL before meals <180 mg/dL all other times of the day Specimen Anatomical Collection Method Collection Time Receive d Time (Source) Location / / Volume Laterality Blood 01/27/2022 12:29 01/27/2022 PM EDT 12:29 PM EDT Danny Jewell MD POINT OF CARE TEST ORDERABLE S Performing Organization Address City/State/ZIP Code Phon e Number [facility] [place] [address] XR Chest PA & [...] who have questions please contact the health careers counsellor that requested your imaging first. ? Narrative [...] original. EXAMINATION: XR CHEST PA AND LATERAL ([employer]) CLINICAL HISTORY: s/p cabg, eval effusio ns [...] ho have questions please contact the health careers counsellor that requested your imaging first. Danny Jewell MD IMG DX ORDERABLES Potassium (01/27/2022 9:50 AM EDT) athologist Signature Potassium 3.5 3.5 - 5.[address] [facility] mmol/L [facility] Comment: Please note: ??Patients [...] Organization Address City/State/[place] [address] (ABNORMAL) POCT Glucose (01/27/2022 8:28 AM EDT) athologist Signature POC Glucose 204 (H) 65 - 199 [facility] mg/dL [facility] Comment: Supplemental ranges: <140 mg/dL before meals <180 mg/dL all other times of the day Specimen Anatomical Collection Method Collection Time Receive d Time (Source) Location / / Volume Laterality Blood 01/27/2022 8:28 AM 8:28 EDT AM EDT Danny Jewell MD POINT OF CARE TEST ORDERABLE S Performing Organization Address City/State/[place] [address] (ABNORMAL) Basic Metabolic Panel (non-fasting) (01/27/2022 2:29 AM EDT) athologist Signature Glucose Lvl 144 65 - 199 [facility] mg/dL [facility] Comment: Diabetes: >=200 mg/dL plus symp toms BUN 9 (L) 10 - 20 mg/dL [facility] Creatinine 0.81 0.80 - 1.50 mg/dL [facility] Sodium 138 135 - 145 mmol/L [facility] Potassium 3.6 3.5 - 5.0 mmol/L [facility] Comment: Please note: ??Patients with WBC >100,00 0 may have falsely elevated Potassium levels. ??For accurate Potassium quantif ication in these patients send serum separator tube (gold top) for subsequent determinations. ??Contact the Clinical Chemistry Laboratory if there are any qu estions. Chloride 103 98 - 107 mmol/L [facility] CO2 23 22 - 31 mmol/L [facility] Anion Gap 12 5 - 15 mmol/L [facility] Calcium 8.1 (L) 8.5 - 10.5 mg/dL [facility] Estimated GFR 92 >=60 mL/min/1.73 m?? [facility] Comment: This patient? s estimated [...] Organization Address City/State/ZIP Code Phon e Number [address] POCT Glucose (01/26/2022 9:54 PM EDT) athologist Signature POC Glucose 156 65 - 199 [facility] mg/dL [facility] Comment: Supplemental ranges: <140 mg/dL before meals <180 mg/dL all other times of the day Specimen Anatomical Collection Method Collection Time Receive d Time (Source) Location / / Volume Laterality Blood 01/26/2022 9:54 PM 2 9:54 EDT PM EDT Danny Jewell MD POINT OF CARE TEST ORDERABLE S Performing Organization Address City/[facility]/[place] [address] Potassium (01/26/2022 3:20 PM EDT) athologist Signature Potassium 3.8 3.5 - 5.0 [facility] mmol/L [facility] Comment: Please note: ??Patients [...] Organization Address City/State/ZIP Code Phon e Number [address] POCT Glucose (01/26/2022 3:14 PM EDT) athologist Signature POC Glucose 114 65 - [address] [facility] mg/dL [facility] Comment: Supplemental ranges: <140 mg/dL before meals <180 mg/dL all other times of the day Specimen Anatomical Collection Method Collection Time Receive d Time (Source) Location / / Volume Laterality Blood 01/26/2022 3:14 PM 2 3:14 EDT PM EDT Danny Jewell MD POINT OF CARE TEST ORDERABLE S Performing Organization Address City/[facility]/[place] [address] POCT Glucose (01/26/2022 11:18 AM EDT) athologist Signature POC Glucose 148 65 - 199 [place] mg/dL [facility] Comment: Supplemental ranges: <140 mg/dL before meals <180 mg/dL all other times of the day Specimen Anatomical Collection Method Collection Time Receive d Time (Source) Location / / Volume Laterality Blood 01/26/2022 11:18 01/26/2022 AM EDT 11:18 AM EDT Danny Jewell MD POINT OF CARE TEST ORDERABLE S Performing Organization Address City/[facility]/ZIP Code Phon e Number [address] Potassium (01/26/2022 9:30 AM EDT) athologist Signature Potassium 3.5 3.5 - 5.0 [facility] mmol/L [facility] LABORATORY Comment: Please note: ??Patients [...] Jewell MD CHEMISTRY ORDERABLES Performing Organization Address City/[facility]/ZIP Code Phon e Number [address] POCT Glucose (01/26/2022 8:51 AM EDT) athologist Signature POC Glucose 155 65 - 199 [facility] Comment: Supplemental ranges: <140 mg/dL before meals <180 mg/dL all other times of the day Specimen Anatomical Collection Method Collection Time Receive d Time (Source) Location / / Volume Laterality Blood 01/26/2022 8:51 AM 2 8:51 EDT AM EDT Danny Jewell MD POINT OF CARE TEST ORDERABLE S Performing Organization Address City/[facility]/ZIP Code Phon e Number [address] POCT Glucose (01/26/2022 6:25 AM EDT) athologist Signature POC Glucose 155 65 - [address] [facility] mg/dL [facility] LABOR[facility]ORY Comment: Supplemental ranges: <140 mg/dL before meals <180 mg/dL all other times of the day Specimen Anatomical Collection Method Collection Time Receive d Time (Source) Location / / Volume Laterality Blood 01/26/2022 6:25 AM 2 6:25 EDT AM EDT Danny Jewell MD POINT OF CARE TEST ORDERABLE S Performing Organization Address City/State/[place] [address] POCT Glucose (01/26/2022 4:11 AM EDT) athologist Signature POC Glucose 149 65 - [address] [facility] mg/dL [facility]OR[facility] Comment: Supplemental ranges: <140 mg/dL before meals <180 mg/dL all other times of the day Specimen Anatomical Collection Method Collection Time Receive d Time (Source) Location / / Volume Laterality Blood 01/26/2022 4:11 AM 2 4:11 EDT AM EDT Danny Jewell MD POINT OF CARE TEST ORDERABLE S Performing Organization Address City/State/ZIP Code Phon e Number [address] POCT Glucose (01/26/2022 3:08 AM EDT) athologist Signature POC Glucose 159 65 - [address] [facility] mg/dL [facility] LABORATORY Comment: Supplemental ranges: <140 mg/dL before meals <180 mg/dL all other times of the day Specimen Anatomical Collection Method Collection Time Receive d Time (Source) Location / / Volume Laterality Blood 01/26/2022 3:08 AM 2 3:08 EDT AM EDT Danny Jewell MD POINT OF CARE TEST ORDERABLE S Performing Organization Address City/State/[place] [address] (ABNORMAL) Basic Metabolic Panel (non-fasting) (01/26/2022 3:00 AM EDT) athologist Signature Glucose Lvl 140 65 - 199 [facility]dL [facility]ORATORY Comment: Diabetes: >=200 mg/dL plus symp toms BUN 10 10 - 20 mg/dL [facility] LABORATORY Creatinine 0.86 0.80 - 1.50 mg/dL [facility] LABOR[facility] Sodium 137 135 - 145 mmol/L [facility]OR[facility] Potassium 3.4 (L) 3.5 - 5.0 mmol/L [facility]OR[facility] Comment: Please note: ??Patients with WBC >100,00 0 may have falsely elevated Potassium levels. ??For accurate Potassium quantif ication in these patients send serum separator tube (gold top) for subsequent determinations. ??Contact the Clinical Chemistry Laboratory if there are any qu estions. Chloride 103 98 - 107 mmol/L [facility]OR[facility] CO2 23 22 - 31 mmol/L [facility] Anion Gap 11 5 - 15 mmol/L [facility] Calcium 7.9 (L) 8.5 - 10.5 mg/dL [facility]OR[facility] Estimated GFR 90 >=60 mL/min/1.73 m?? [facility] Comment: This patient? s estimated [...] Organization Address City/State/ZIP [place] [address] POCT Glucose (01/25/2022 11:56 PM EST) P athologist Signature POC Glucose 149 65 - 199 [facility] mg/dL [facility] LABORATORY Comment: Supplemental ranges: <140 mg/dL before meals <180 mg/dL all other times of the day Specimen Anatomical Collection Method Collection Time Receive d Time (Source) Location / / Volume Laterality Blood 01/25/2022 11:56 01/25/2022 PM EST 11:56 PM EST Danny Jewell MD POINT OF CARE TEST ORDERABLE S Performing Organization Address City/State/ZIP Code Phon e [place] [address] POCT Glucose (01/25/2022 9:45 PM EST) athologist Signature POC Glucose 146 65 - 199 [place] mg/dL [facility]OR[facility] Comment: Supplemental ranges: <140 mg/dL before meals <180 mg/dL all other times of the day Specimen Anatomical Collection Method Collection Time Receive d Time (Source) Location / / Volume Laterality Blood 01/25/2022 9:45 PM 2 9:45 EST PM EST Danny Jewell MD POINT OF CARE TEST ORDERABLE S Performing Organization Address City/State/ZIP Code Phon e Number [place]RI[place] [address] POCT Glucose (01/25/2022 8:10 PM EST) athologist Signature POC Glucose 135 65 - 199 [place] mg/dL [facility]ORATORY Comment: Supplemental ranges: <140 mg/dL before meals <180 mg/dL all other times of the day Specimen Anatomical Collection Method Collection Time Receive d Time (Source) Location / / Volume Laterality Blood 01/25/2022 8:10 PM 2 8:10 EST PM EST Danny Jewell MD POINT OF CARE TEST ORDERABLE S Performing Organization Address City/State/ZIP Code Phon e [place] [address] POCT Glucose (01/25/2022 5:59 PM EST) athologist Signature POC Glucose 146 65 - 199 [place] mg/dL [facility] Comment: Supplemental ranges: <140 mg/dL before meals <180 mg/dL all other times of the day Specimen Anatomical Collection Method Collection Time Receive d Time (Source) Location / / Volume Laterality Blood 01/25/2022 5:59 PM 2 5:59 EST PM EST Danny Jewell MD POINT OF CARE TEST ORDERABLE S Performing Organization Address City/State/ZIP [place] [address] [facility] [address] POCT Glucose (01/25/2022 4:15 PM EST) athologist Signature POC Glucose 140 65 - 199 [facility]dL [facility] Comment: Supplemental ranges: <140 mg/dL before meals <180 mg/dL all other times of the day Specimen Anatomical Collection Method Collection Time Receive d Time (Source) Location / / Volume Laterality Blood 01/25/2022 4:15 PM 2 4:15 EST PM EST Danny Jewell MD POINT OF CARE TEST ORDERABLE S Performing Organization Address City/State/[place] [address] Potassium (01/25/2022 4:15 PM EST) athologist Signature Potassium 4.1 3.5 - 5.0 [facility] mmol/L [facility]ORATORY Comment: Please note: ??Patients [...] Organization Address City/State/ZIP [place] [address] Potassium (01/25/2022 12:30 PM EST) athologist Signature Potassium 3.8 3.5 - 5.0 [facility] mmol/[facility] LABORATORY Comment: Please note: ??Patients with WBC [...] Organization Address City/State/[place] [address] POCT Glucose (01/25/2022 12:27 PM EST) athologist Signature POC Glucose 149 65 - 199 [place] LO[place] mg/dL [facility]OR[facility] Comment: Supplemental ranges: <140 mg/dL before meals <180 mg/dL all other times of the day Specimen Anatomical Collection Method Collection Time Receive d Time (Source) Location / / Volume Laterality Blood 01/25/2022 12:27 01/25/2022 PM EST 12:27 PM EST Danny Jewell MD POINT OF CARE TEST ORDERABLE S Performing Organization Address City/[facility]/[place] [address] POCT Glucose (01/25/2022 10:16 AM EST) athologist Signature POC Glucose 146 65 - 199 [place] LO[place] mg/dL [facility]OR[facility]ORY Comment: Supplemental ranges: <140 mg/dL before meals <180 mg/dL all other times of the day Specimen Anatomical Collection Method Collection Time Receive d Time (Source) Location / / Volume Laterality Blood 01/25/2022 10:16 01/25/2022 AM EST 10:16 AM EST Danny Jewell MD POINT OF CARE TEST ORDERABLE S Performing Organization Address City/State/ZIP Code Phon e Number [address] POCT Glucose (01/25/2022 8:53 AM EST) athologist Signature POC Glucose 141 65 - 199 [place] LO[place] mg/dL [facility]OR[facility]ORY Comment: Supplemental ranges: <140 mg/dL before meals <180 mg/dL all other times of the day Specimen Anatomical Collection Method Collection Time Receive d Time (Source) Location / / Volume Laterality Blood 01/25/2022 8:53 AM 2 8:53 EST AM EST Danny Jewell MD POINT OF CARE TEST ORDERABLE S Performing Organization Address City/[facility]/[place] [address] (ABNORMAL) Potassium (01/25/2022 8:50 AM EST) athologist Signature Potassium 3.4 (L) 3.5 - 5.0 [facility] mmol/L [facility]ORATORY Comment: Please note: ??Patients [...] Jewell MD CHEMISTRY ORDERABLES Performing Organization Address City/[facility]/[place] [address] POCT Glucose (01/25/2022 8:10 AM EST) athologist Signature POC Glucose 138 65 - [address] [facility] mg/dL [facility] Comment: Supplemental ranges: <140 mg/dL before meals <180 mg/dL all other times of the day Specimen Anatomical Collection Method Collection Time Receive d Time (Source) Location / / Volume Laterality Blood 01/25/2022 8:10 AM 2 8:10 EST AM EST Danny Jewell MD POINT OF CARE TEST ORDERABLE S Performing Organization Address City/[facility]/ZIP Code Phon e Number [address] POCT Glucose (01/25/2022 5:55 AM EST) athologist Signature POC Glucose 132 65 - [address] [facility] mg/dL [facility] Comment: Supplemental ranges: <140 mg/dL before meals <180 mg/dL all other times of the day Specimen Anatomical Collection Method Collection Time Receive d Time (Source) Location / / Volume Laterality Blood 01/25/2022 5:55 AM 2 5:55 EST AM EST Danny Jewell MD POINT OF CARE TEST ORDERABLE S Performing Organization Address City/State/[place] [address] POCT Glucose (01/25/2022 4:04 AM EST) athologist Signature POC Glucose 124 65 - 199 [place] mg/dL [facility] Comment: Supplemental ranges: <140 mg/dL before meals <180 mg/dL all other times of the day Specimen Anatomical Collection Method Collection Time Receive d Time (Source) Location / / Volume Laterality Blood 01/25/2022 4:04 AM 2 4:04 EST AM EST Danny Jewell MD POINT OF CARE TEST ORDERABLE S Performing Organization Address City/[facility]/[place] [address] POCT Glucose (01/25/2022 2:05 AM EST) athologist Signature POC Glucose 136 65 - 199 [place] mg/dL [facility] Comment: Supplemental ranges: <140 mg/dL before meals <180 mg/dL all other times of the day Specimen Anatomical Collection Method Collection Time Receive d Time (Source) Location / / Volume Laterality Blood 01/25/2022 2:05 AM 2 2:05 EST AM EST Danny Jewell MD POINT OF CARE TEST ORDERABLE S Performing Organization Address City/State/[place] [address] (ABNORMAL) Basic Metabolic Panel (non-fasting) (01/25/2022 2:00 AM EST) athologist Signature Glucose Lvl 131 65 - 199 [place] mg/dL [facility] Comment: Diabetes: >=200 mg/dL plus symp toms BUN 12 10 - 20 mg/dL [facility] Creatinine 0.88 0.80 - 1.50 mg/dL [facility] Sodium 142 135 - 145 mmol/L [facility] Potassium 3.3 (L) 3.5 - 5.0 mmol/L [facility] Comment: Please note: ??Patients with WBC >100,00 0 may have falsely elevated Potassium levels. ??For accurate Potassium quantif ication in these patients send serum separator tube (gold top) for subsequent determinations. ??Contact the Clinical Chemistry Laboratory if there are any qu estions. Chloride 108 (H) 98 - 107 mmol/L [facility] CO2 25 22 - 31 mmol/L [facility] Anion Gap 9 5 - 15 mmol/L [facility] Calcium 7.7 (L) 8.5 - 10.5 mg/dL [facility] Estimated GFR 89 >=60 mL/min/1.73 m?? [facility] Comment: This patient? s estimated [...] / Volume Laterality Blood 01/25/2022 2:00 AM 2:13 EST AM EST Resulting Agency Comment Spec In Lab Danny Jewell MD CHEMISTRY ORDERABLES Performing Organization Address City/State/ZIP [place] [address] POCT Glucose (01/24/2022 11:52 PM EST) athologist Signature POC Glucose 146 65 - 199 [place] LO[place] mg/dL [facility] Comment: Supplemental ranges: <140 mg/dL before meals <180 mg/dL all other times of the day Specimen Anatomical Collection Method Collection Time Receive d Time (Source) Location / / Volume Laterality Blood 01/24/2022 11:52 01/24/2022 PM EST 11:52 PM EST Danny Jewell MD POINT OF CARE TEST ORDERABLE S Performing Organization Address City/State/ZIP Code Phon e Number [address] POCT Glucose (01/24/2022 10:00 PM EST) athologist Signature POC Glucose 140 65 - 199 [place] mg/dL [facility] Comment: Supplemental ranges: <140 mg/dL before meals <180 mg/dL all other times of the day Specimen Anatomical Collection Method Collection Time Receive d Time (Source) Location / / Volume Laterality Blood 01/24/2022 10:00 01/24/2022 PM EST 10:00 PM EST Danny Jewell MD POINT OF CARE TEST ORDERABLE S Performing Organization Address City/State/ZIP Code Phon e Number [address] POCT Glucose (01/24/2022 7:43 PM EST) athologist Signature POC Glucose 173 65 - 199 [place] mg/dL [facility] Comment: Supplemental ranges: <140 mg/dL before meals <180 mg/dL all other times of the day Specimen Anatomical Collection Method Collection Time Receive d Time (Source) Location / / Volume Laterality Blood 01/24/2022 7:43 PM 7:43 EST PM EST Danny Jewell MD POINT OF CARE TEST ORDERABLE S Performing Organization Address City/State/ZIP Code Phon e Number [address] POCT Glucose (01/24/2022 6:53 PM EST) athologist Signature POC Glucose 183 65 - 199 [place] LO[place] mg/dL [facility] Comment: Supplemental ranges: <140 mg/dL before meals <180 mg/dL all other times of the day Specimen Anatomical Collection Method Collection Time Receive d Time (Source) Location / / Volume Laterality Blood 01/24/2022 6:53 PM 2 6:53 EST PM EST Danny Jewell MD POINT OF CARE TEST ORDERABLE S Performing Organization Address City/State/[place] [address] Potassium (01/24/2022 4:45 PM EST) P athologist Signature Potassium 3.8 3.5 - 5.0 [facility] mmol/L [facility] Comment: Please note: ??Patients [...] Jewell MD CHEMISTRY ORDERABLES Performing Organization Address City/[facility]/[place] [address] (ABNORMAL) POCT Glucose (01/24/2022 4:38 PM EST) P athologist Signature POC Glucose 216 (H) 65 - [address] [facility] mg/dL [facility] Comment: Supplemental ranges: <140 mg/dL before meals <180 mg/dL all other times of the day Specimen Anatomical Collection Method Collection Time Receive d Time (Source) Location / / Volume Laterality Blood 01/24/2022 4:38 PM 2 4:38 EST PM EST Danny Jewell MD POINT OF CARE TEST ORDERABLE S Performing Organization Address City/[facility]/[place] [address] (ABNORMAL) POCT Glucose (01/24/2022 4:02 PM EST) athologist Signature POC Glucose 200 (H) 65 - [address] [facility] mg/dL [facility] Comment: Supplemental ranges: <140 mg/dL before meals <180 mg/dL all other times of the day Specimen Anatomical Collection Method Collection Time Receive d Time (Source) Location / / Volume Laterality Blood 01/24/2022 4:02 PM 2 4:02 EST PM EST Danny Jewell MD POINT OF CARE TEST ORDERABLE S Performing Organization Address City/State/[place] [address] (ABNORMAL) POCT Glucose (01/24/2022 2:10 PM EST) athologist Signature POC Glucose 218 (H) 65 - [address] [facility] mg/dL [facility] Comment: Supplemental ranges: <140 mg/dL before meals <180 mg/dL all other times of the day Specimen Anatomical Collection Method Collection Time Receive d Time (Source) Location / / Volume Laterality Blood 01/24/2022 2:10 PM 2 2:10 EST PM EST Danny Jewell MD POINT OF CARE TEST ORDERABLE S Performing Organization Address City/[facility]/[place] [address] (ABNORMAL) POCT Glucose (01/24/2022 12:20 PM EST) athologist Signature POC Glucose 237 (H) 65 - [address] [facility] mg/dL [facility] Comment: Supplemental ranges: <140 mg/dL before meals <180 mg/dL all other times of the day Specimen Anatomical Collection Method Collection Time Receive d Time (Source) Location / / Volume Laterality Blood 01/24/2022 12:20 01/24/2022 PM EST 12:20 PM EST Danny Jewell MD POINT OF CARE TEST ORDERABLE S Performing Organization Address City/State/[place] [address] (ABNORMAL) BLOOD GAS 2 ARTERIAL (01/24/2022 9:43 AM EST) Analysis Performed At Patho logist Time Signature pH Art 7.42 7.35 - [facility] 7.45 [facility]ORY pCO2 Art 38 35 - 45 [facility] mmHg [facility] pO2 Art 65 (L) 85 - 104 [facility] HCO3 Art 24.5 20.0 - [facility] 26.0 [facility] mmol/L [facility] BE Art 0.0 -3.0 - 3.0 [facility] mmol/L [facility] Hgb Blood Gas 9.2 (L) 13.7 - [facility] 16.5 g/dL [facility] O2HB Art 91.0 (L) 94.0 - [facility] 97.0 % [facility] COHB Art 0.3 % [facility] Comment: Nonsmokers: 0.5-1.5% COHB Smokers: Variable, but usually less than 10% Toxic: 20-30% COHB Lethal: Greater than 60% COHB METHB Art 0.9 <=1.5 % [facility] Na Whole Blood 134 (L) 135 - 145 mmol/L [facility] K Whole Blood 3.6 3.5 - 5.0 mmol/L [facility] Comment: Please note: Patients with WBC >100,000 may have falsely elevated Potassium levels. Contact the Clinical Chemistry L aboratory if there are any questions. ICa Whole Blood 1.16 1.15 - 1.33 mmol/L [facility] Comment: Note: ??Total bilirubin higher than 20 m g/dL may lead to falsely low ionized calcium. CL Whole Blood 106 98 - 107 mmol/L [facility] Gluc Whole Bld 193 65 - 199 mg/dL [facility] Comment: Diabetes: >=200 mg/dL plus symp toms. Lactate WB 1.2 0.5 - 2.2 mmol/L [facility] FIO2 Art 40 % [facility] PF Ratio Art 162 [facility] Specimen Anatomical Collection Method Collection Time Receive d Time (Source) Location / / Volume Laterality Blood 01/24/2022 9:43 AM 2 9:43 EST AM EST Danny Jewell MD CHEMISTRY ORDERABLES Performing Organization Address City/[facility]/[place] [address] Potassium (01/24/2022 9:43 AM EST) athologist Signature Potassium 3.6 3.5 - 5.0 [facility] mmol/L [facility] Comment: Please note: ??Patients [...] Jewell MD CHEMISTRY ORDERABLES Performing Organization Address City/[facility]/[place] [address] POCT Glucose (01/24/2022 8:26 AM EST) athologist [facility] POC Glucose 132 65 - 199 [facility] mg/dL [facility] Comment: Supplemental ranges: <140 mg/dL before meals <180 mg/dL all other times of the day Specimen Anatomical Collection Method Collection Time Receive d Time (Source) Location / / Volume Laterality Blood 01/24/2022 8:26 AM 2 8:26 EST AM EST Danny Jewell MD POINT OF CARE TEST ORDERABLE S Performing Organization Address City/[facility]/ZIP Code Phon e Number [address] COVID-19 PCR (01/24/2022 6:23 AM EST) [facility] gist Method Time Signature SARS-CoV-2 Not Detected Not Detected [facility] Comment: This result should be interpreted [...] diagnosis of COVID-19 is performed using the [employer] CRISTINE S-CoV-2 Assay as authorized by the FDA Emergency Use Authorization (EUA). This EUA assay is intended for In-vitro Diagnostic (IVD) use with respiratory sp ecimens such as nasopharyngeal swabs collected from individuals during the ac sharona phase of infection. This assay is performed based on the instructions for use provided by [employer] and additional guidance provided by CDC and FDA. Testing is performed in the Clinical Genomics and [facility] Technolog y Laboratory within the Department of Pathology and Laboratory Medicine at [facility], certified under the Clinical Laboratory Improvement [...] clinical management guidance information are available at [facility] CDC Coronavirus Disease 2019 (COVID-19) webpage under Information fo r Healthcare Professionals (https://www.cdc.gov/coronavirus/2019-nc ov/hcp/index.html) Additional information about this and ot her EUA tests can be found in provider and patient fact sheets at the following FDA website: https://www.fda.gov/medical-devices/qrdmergnzit-mnagshj-5524-vxaxd-64-guiglnbwd- nyh-zkmqfeywcvdprr-mhlewud-devices/tuudo-ddzjffzeuyb-shok SARS-Cov-2 RNA Source DEVELOPMENTAL THERAPIST Swab [facility] Specimen (Source) Anatomical Collection Method Collection Time Re ceived Time Location / / Volume Laterality Nasopharyngeal Swab 01/24/2022 6:23 01/24 AM EST 7:27 AM EST Comment: Symptoms->Surveillance Resulting Agency Comment Spec In Lab Danny Jewell MD MICROBIOLOGY - GENERAL ORDER CATHY Performing Organization Address City/[facility]/[place] [address] POCT Glucose (01/24/2022 6:07 AM EST) P athologist Signature POC Glucose 160 65 - 199 [facility] mg/dL [facility] Comment: Supplemental ranges: <140 mg/dL before meals <180 mg/dL all other times of the day Specimen Anatomical Collection Method Collection Time Receive d Time (Source) Location / / Volume Laterality Blood 01/24/2022 6:07 AM 6:07 EST AM EST Danny Jewell MD POINT OF CARE TEST ORDERABLE S Performing Organization Address City/State/ZIP Code Phon e Number [place] [address] (ABNORMAL) Blood Gas Arterial (01/24/2022 6:06 AM EST) Analysis Performed At Patho logist Time Signature pH Art 7.47 (H) 7.35 - [facility] 7.45 [facility] LABORATORY pCO2 Art 30 (L) 35 - 45 [facility] LABORATORY pO2 Art 95 85 - 104 [facility] LABORATORY HCO3 Art 21.2 20.0 - [facility] 26.0 [facility] mmol/L [facility] LABORATORY BE Art -2.4 -3.0 - 3.0 [facility] mmol/L [facility] LABORATORY Hgb Blood Gas 8.9 (L) 13.7 - [facility] 16.5 g/dL [facility] O2HB Art 96.1 94.0 - [facility] 97.0 % [facility] LABORATORY COHB Art 0.3 % [facility] LABORATORY Comment: Nonsmokers: ??0.5-1.5% COHB Smokers: ??Variable, but usually less th an 10% Toxic: 20 - 30% COHB Lethal: ??Greater than 60% COHB METHB Art 0.3 <=1.5 % [facility] LABORATORY Na Whole Blood 136 135 - 145 mmol/L [facility] LABORATORY K Whole Blood 3.6 3.5 - 5.0 mmol/L [facility] LABORATORY Comment: Please note: ??Patients with WBC >100,00 0 may have falsely elevated Potassium levels. ??Contact the Clinical Chemistry Laboratory if there are any questions. ICa Whole Blood 1.12 (L) 1.15 - 1.33 mmol/L [facility] LABORATORY Comment: Note: ??Total bilirubin higher than 20 m g/dL may lead to falsely low ionized calcium. CL Whole Blood 108 (H) 98 - 107 mmol/L [facility] LABORATORY Gluc Whole Bld 146 65 - 199 mg/dL [facility] LABORATORY Comment: Diabetes: >=200 mg/dL plus symp toms. Lactate WB 1.1 0.5 - 2.2 mmol/L [facility] LABORATORY Specimen Anatomical Collection Method Collection Time Receive d Time (Source) Location / / Volume Laterality Blood Arterial Draw / 01/24/2022 6:06 AM 2021 6:18 Unknown EST AM EST Resulting Agency Comment Spec In Lab Damián TOUSSAINT CHEMISTRY ORDERABLES Performing Organization Address City/State/ZIP [place] [address] POCT Glucose (01/24/2022 3:55 AM EST) athologist Signature POC Glucose 169 65 - 199 [facility] LABORATORY Comment: Supplemental ranges: <140 mg/dL before meals <180 mg/dL all other times of the day Specimen Anatomical Collection Method Collection Time Receive d Time (Source) Location / / Volume Laterality Blood 01/24/2022 3:55 AM 2 3:55 EST AM EST Danny Jewell MD POINT OF CARE TEST ORDERABLE S Performing Organization Address City/State/ZIP [place] [address] (ABNORMAL) Basic Metabolic Panel (non-fasting) (01/24/2022 2:30 AM EST) athologist Signature Glucose Lvl 156 65 - 199 [facility] mg/dL [facility] LABORATORY Comment: Diabetes: >=200 mg/dL plus symp toms BUN 18 10 - 20 mg/dL [facility] LABORATORY Creatinine 1.15 0.80 - 1.50 mg/dL [facility] LABORATORY Comment: result rechecked-bm Sodium 141 135 - 145 mmol/L [facility] LABORATORY Potassium 3.4 (L) 3.5 - 5.0 mmol/L [facility] LABORATORY Comment: Please note: ??Patients with WBC >100,00 0 may have falsely elevated Potassium levels. ??For accurate Potassium quantif ication in these patients send serum separator tube (gold top) for subsequent determinations. ??Contact the Clinical Chemistry Laboratory if there are any qu estions. Chloride 108 (H) 98 - 107 mmol/L [facility] LABORATORY CO2 24 22 - 31 mmol/L [facility] LABOR[facility] Anion Gap 9 5 - 15 mmol/L [facility] LABORATORY Calcium 7.7 (L) 8.5 - 10.5 mg/dL [facility] LABORATORY Estimated GFR 65 >=60 mL/min/1.73 m?? [facility] LABORATORY Comment: This patient? s estimated [...] CHEMISTRY ORDERABLES Performing Organization Address City/State/ZIP Code [address] POCT Glucose (01/24/2022 2:02 AM EST) athologist Signature POC Glucose 169 65 - [address] [facility] LABORATORY Comment: Supplemental ranges: <140 mg/dL before meals <180 mg/dL all other times of the day Specimen Anatomical Collection Method Collection Time Receive d Time (Source) Location / / Volume Laterality Blood 01/24/2022 2:02 AM 2 2:02 EST AM EST Danny Jewell MD POINT OF CARE TEST ORDERABLE S Performing Organization Address City/State/ZIP [facility] [place] [address] POCT Glucose (01/24/2022 12:59 AM EST) athologist Signature POC Glucose 160 65 - 199 [facility] mg/dL [facility] LABORATORY Comment: Supplemental ranges: <140 mg/dL before meals <180 mg/dL all other times of the day Specimen Anatomical Collection Method Collection Time Receive d Time (Source) Location / / Volume Laterality Blood 01/24/2022 12:59 01/24/2022 AM EST 12:59 AM EST Danny Jewell MD POINT OF CARE TEST ORDERABLE S Performing Organization Address City/State/ZIP Code Phon e Number [address] POCT Glucose (01/23/2022 11:56 PM EST) athologist Signature POC Glucose 179 65 - 199 [facility] mg/dL [facility] LABORATORY Comment: Supplemental ranges: <140 mg/dL before meals <180 mg/dL all other times of the day Specimen Anatomical Collection Method Collection Time Receive d Time (Source) Location / / Volume Laterality Blood 01/23/2022 11:56 01/23/2022 PM EST 11:56 PM EST Danny Jewell MD POINT OF CARE TEST ORDERABLE S Performing Organization Address City/State/ZIP Code Phon e Number [address] POCT Glucose (01/23/2022 10:01 PM EST) athologist Signature POC Glucose 167 65 - 199 [facility] mg/dL [facility] LABORATORY Comment: Supplemental ranges: <140 mg/dL before meals <180 mg/dL all other times of the day Specimen Anatomical Collection Method Collection Time Receive d Time (Source) Location / / Volume Laterality Blood 01/23/2022 10:01 01/23/2022 PM EST 10:01 PM EST Danny Jewell MD POINT OF CARE TEST ORDERABLE S Performing Organization Address City/State/[place] [address] POCT Glucose (01/23/2022 8:49 PM EST) athologist Signature POC Glucose 167 65 - 199 [place] [facility] mg/dL [facility] LABORATORY Comment: Supplemental ranges: <140 mg/dL before meals <180 mg/dL all other times of the day Specimen Anatomical Collection Method Collection Time Receive d Time (Source) Location / / Volume Laterality Blood 01/23/2022 8:49 PM 8:49 EST PM EST Danny Jewell MD POINT OF CARE TEST ORDERABLE S Performing Organization Address City/State/ZIP [place] [address] (ABNORMAL) BLOOD GAS 2 ARTERIAL (01/23/2022 5:33 PM EST) Analysis Performed At Patho logist Time Signature pH Art 7.48 (H) 7.35 - [facility] 7.45 [facility] LABORATORY pCO2 Art 31 (L) 35 - 45 [facility] mmHg [facility] LABORATORY pO2 Art 87 85 - 104 [facility] mmHg [facility] LABORATORY HCO3 Art 22.2 20.0 - [facility] 26.0 [facility] mmol/L [facility] LABORATORY BE Art -1.3 -3.0 - 3.0 [facility] mmol/L [facility] LABORATORY Hgb Blood Gas 8.6 (L) 13.7 - [facility] 16.5 g/dL [facility] LABORATORY O2HB Art 94.6 94.0 - [facility] 97.0 % [facility] LABORATORY COHB Art 0.3 % [facility] LABORATORY Comment: Nonsmokers: 0.5-1.5% COHB Smokers: Variable, but usually less than 10% Toxic: 20-30% COHB Lethal: Greater than 60% COHB METHB Art 0.9 <=1.5 % [facility] LABORATORY Na Whole Blood 136 135 - 145 mmol/L [facility] LABORATORY K Whole Blood 3.4 (L) 3.5 - 5.0 mmol/L [facility] LABORATORY Comment: Please note: Patients with WBC >100,000 may have falsely elevated Potassium levels. Contact the Clinical Chemistry L aboratory if there are any questions. ICa Whole Blood 1.14 (L) 1.15 - 1.33 mmol/L [facility] LABORATORY Comment: Note: ??Total bilirubin higher than 20 m g/dL may lead to falsely low ionized calcium. CL Whole Blood 105 98 - 107 mmol/L [facility] LABORATORY Gluc Whole Bld 127 65 - 199 mg/dL [facility] LABORATORY Comment: Diabetes: >=200 mg/dL plus symp toms. Lactate WB 1.1 0.5 - 2.2 mmol/L [facility] LABORATORY FIO2 Art 40 % [facility] LABORATORY PF Ratio Art 218 [facility] LABORATORY Specimen Anatomical Collection Method Collection Time Receive d Time (Source) Location / / Volume Laterality Blood 01/23/2022 5:33 PM 2 5:33 EST PM EST Danny Jewell MD CHEMISTRY ORDERABLES Performing Organization Address City/[facility]/[place] [address] Potassium (01/23/2022 5:33 PM EST) athologist Signature Potassium 3.6 3.5 - 5.0 [facility] mmol/L [facility] LABORATORY Comment: Please note: ??Patients [...] Jewell MD CHEMISTRY ORDERABLES Performing Organization Address City/[facility]/[place] [address] POCT Glucose (01/23/2022 3:57 PM EST) athologist Signature POC Glucose 134 65 - 199 [facility] LABORATORY Comment: Supplemental ranges: <140 mg/dL before meals <180 mg/dL all other times of the day Specimen Anatomical Collection Method Collection Time Receive d Time (Source) Location / / Volume Laterality Blood 01/23/2022 3:57 PM 2 3:57 EST PM EST Danny Jewell MD POINT OF CARE TEST ORDERABLE S Performing Organization Address City/[facility]/ZIP [place] [address] POCT Glucose (01/23/2022 2:20 PM EST) athologist Signature POC Glucose 122 65 - [address] [facility] mg/dL [facility] LABORATORY Comment: Supplemental ranges: <140 mg/dL before meals <180 mg/dL all other times of the day Specimen Anatomical Collection Method Collection Time Receive d Time (Source) Location / / Volume Laterality Blood 01/23/2022 2:20 PM 2 2:20 EST PM EST Danny Jewell MD POINT OF CARE TEST ORDERABLE S Performing Organization Address City/State/ZIP Code Phon e Number [address] POCT Glucose (01/23/2022 1:27 PM EST) athologist Signature POC Glucose 125 65 - 199 [facility] mg/dL [facility] LABORATORY Comment: Supplemental ranges: <140 mg/dL before meals <180 mg/dL all other times of the day Specimen Anatomical Collection Method Collection Time Receive d Time (Source) Location / / Volume Laterality Blood 01/23/2022 1:27 PM 2 1:27 EST PM EST Danny Jewell MD POINT OF CARE TEST ORDERABLE S Performing Organization Address City/State/ZIP Code Phon e Number [address] POCT Glucose (01/23/2022 12:50 PM EST) athologist Signature POC Glucose 117 65 - 199 [place] LO[place] mg/dL [facility] LABORATORY Comment: Supplemental ranges: <140 mg/dL before meals <180 mg/dL all other times of the day Specimen Anatomical Collection Method Collection Time Receive d Time (Source) Location / / Volume Laterality Blood 01/23/2022 12:50 01/23/2022 PM EST 12:50 PM EST Danny Jewell MD POINT OF CARE TEST ORDERABLE S Performing Organization Address City/State/ZIP Code Phon e Number [address] POCT Glucose (01/23/2022 10:37 AM EST) athologist Signature POC Glucose 142 65 - 199 [facility] mg/dL [facility] LABORATORY Comment: Supplemental ranges: <140 mg/dL before meals <180 mg/dL all other times of the day Specimen Anatomical Collection Method Collection Time Receive d Time (Source) Location / / Volume Laterality Blood 01/23/2022 10:37 01/23/2022 AM EST 10:37 AM EST Danny Jewell MD POINT OF CARE TEST ORDERABLE S Performing Organization Address City/State/[place] [address] POCT Glucose (01/23/2022 7:55 AM EST) P athologist Signature POC Glucose 146 65 - 199 [facility] mg/dL [facility] LABORATORY Comment: Supplemental ranges: <140 mg/dL before meals <180 mg/dL all other times of the day Specimen Anatomical Collection Method Collection Time Receive d Time (Source) Location / / Volume Laterality Blood 01/23/2022 7:55 AM 7:55 EST AM EST Danny Jewell MD POINT OF CARE TEST ORDERABLE S Performing Organization Address City/State/[place] [address] (ABNORMAL) Differential, Automated (01/23/2022 6:10 AM EST) Patholo gist Method Time Signature Neutrophils % 82.9 % [facility] LABORATORY Neutr Abs (ANC) 8.47 (H) 1.70 - [facility] 6.10 [facility] x10(3)/[facility] L LABORATORY Lymphocytes % 8.2 % [facility] LABORATORY Lymphocytes Abs 0.8 (L) 0.9 - 3.2 [facility] x10(3)/[facility] LABORATORY Monocytes % 7.8 % [facility] LABORATORY Monocyte Abs 0.8 0.3 - 0.9 [facility] x10(3)/[facility] LABORATORY Eosinophils % 0.2 % [facility] LABORATORY Eosinophils Abs 0.0 0.0 - 0.4 [facility] x10(3)/[facility] LABORATORY Basophils % 0.2 % [facility] LABORATORY Basophils Abs 0.0 0.0 - 0.1 [facility] x10(3)/[facility] LABORATORY Immature Gran % 0.70 % [facility] LABORATORY Comment: Immature granulocytes(IG's)percentage an d absolute count will include metamyelocytes, myelocytes, and promyelo cytes. Blood smears from CBCs yielding IG's will be scanned manually for concor dance. If this scan disagrees with the automated IG or if promyelocytes are not ed, a manual differential will be performed. Nikole Gran Abs 0.07 (H) 0.00 - 0.04 x10(3)/[facility] LABORATORY Specimen Anatomical Collection Method Collection Time Receive d Time (Source) Location / / Volume Laterality Blood 01/23/2022 6:10 AM 6:55 EST AM EST Resulting Agency Comment Spec In Lab Damián TOUSSAINT HEMATOLOGY ORDERABLES Performing Organization Address City/State/[place] [address] (ABNORMAL) Hemogram (01/23/2022 6:10 AM EST) P athologist Signature WBC 10.2 (H) 4.0 - 9.5 [facility] x10(3)/[facility] LABORATORY RBC 2.56 (L) 4.58 - [facility] 5.54 [facility] x10(6)/[facility] LABORATORY Hemoglobin 8.2 (L) 13.7 - [facility] 16.5 g/dL [facility] LABORATORY Comment: This result has been called to RICHARD BRUNO by Rigoberto Brown on 01 23 2022 at 0821, and has been read back. Hematocrit 22.6 (L) 40.5 - 48.5 % [facility] LABORATORY MCV 88.3 82.9 - 93.1 fL [facility] LABORATORY MCH 32.0 27.5 - 32.1 pg [facility] MCHC 36.3 (H) 32.0 - 35.7 g/dL [facility] LABORATORY Platelets 129 (L) 145 - 357 x10(3)/[facility] LABORATORY RDWSD 43.8 36.0 - 45.0 fL [facility] LABORATORY RDWCV 13.8 11.4 - 13.8 % [facility] LABORATORY MPV 10.1 7.6 - 12.9 fL [facility] LABORATORY nRBC % Auto 0.0 % [facility] LABORATORY nRBC Abs Auto 0.000 0.000 - 0.000 x10(3)/mcL M [facility] LABORATORY Specimen Anatomical Collection Method Collection Time Receive d Time (Source) Location / / Volume Laterality Blood 01/23/2022 6:10 AM 6:55 EST AM EST Resulting Agency Comment Spec In Lab Damián TOUSSAINT HEMATOLOGY ORDERABLES Performing Organization Address City/State/ZIP [place] [address] (ABNORMAL) BLOOD GAS 2 ARTERIAL (01/23/2022 6:08 AM EST) Analysis Performed At Patho logist Time Signature pH Art 7.38 7.35 - [facility] 7.45 [facility] LABORATORY pCO2 Art 37 35 - 45 [facility] LABORATORY pO2 Art 92 85 - 104 [facility] LABORATORY HCO3 Art 21.2 20.0 - [facility] 26.0 [facility] mmol/[facility] LABORATORY BE Art -3.9 (L) -3.0 - 3.0 [facility] mmol/L [facility] LABORATORY Hgb Blood Gas 8.7 (L) 13.7 - [facility] 16.5 g/dL [facility] LABORATORY O2HB Art 95.5 94.0 - [facility] 97.0 % [facility] LABORATORY COHB Art 0.0 % [facility] LABORATORY Comment: Nonsmokers: 0.5-1.5% COHB Smokers: Variable, but usually less than 10% Toxic: 20-30% COHB Lethal: Greater than 60% COHB METHB Art 0.6 <=1.5 % [facility] LABORATORY Na Whole Blood 129 (L) 135 - 145 mmol/L [facility] LABORATORY K Whole Blood 3.8 3.5 - 5.0 mmol/L [facility] LABORATORY Comment: Please note: Patients with WBC >100,000 may have falsely elevated Potassium levels. Contact the Clinical Chemistry L aboratory if there are any questions. ICa Whole Blood 1.06 (L) 1.15 - 1.33 mmol/L [facility] LABORATORY Comment: Note: ??Total bilirubin higher than 20 m g/dL may lead to falsely low ionized calcium. CL Whole Blood 105 98 - 107 mmol/L [facility] LABORATORY Gluc Whole Bld 157 65 - 199 mg/dL [facility] LABORATORY Comment: Diabetes: >=200 mg/dL plus symp toms. Lactate WB 1.8 0.5 - 2.2 mmol/L [facility] LABORATORY FIO2 Art 50 % [facility] LABORATORY PF Ratio Art 184 [facility] LABORATORY Specimen Anatomical Collection Method Collection Time Receive d Time (Source) Location / / Volume Laterality Blood 01/23/2022 6:08 AM 2 6:08 EST AM EST Danny Jewell MD CHEMISTRY ORDERABLES Performing Organization Address City/State/ZIP Code Phon e Number [address] POCT Glucose (01/23/2022 5:13 AM EST) athologist Signature POC Glucose 178 65 - 199 [facility] mg/dL [facility] LABORATORY Comment: Supplemental ranges: <140 mg/dL before meals <180 mg/dL all other times of the day Specimen Anatomical Collection Method Collection Time Receive d Time (Source) Location / / Volume Laterality Blood 01/23/2022 5:13 AM 2 5:13 EST AM EST Danny Jewell MD POINT OF CARE TEST ORDERABLE S Performing Organization Address City/[facility]/ZIP Code Phon e Number [address] POCT Glucose (01/23/2022 3:25 AM EST) athologist Signature POC Glucose 184 65 - 199 [place] mg/dL [facility] LABORATORY Comment: Supplemental ranges: <140 mg/dL before meals <180 mg/dL all other times of the day Specimen Anatomical Collection Method Collection Time Receive d Time (Source) Location / / Volume Laterality Blood 01/23/2022 3:25 AM 3:25 EST AM EST Danny Jewell MD POINT OF CARE TEST ORDERABLE S Performing Organization Address City/State/ZIP [place] [address] (ABNORMAL) Basic Metabolic Panel (non-fasting) (01/23/2022 2:00 AM EST) P athologist Signature Glucose Lvl 193 65 - 199 [facility] mg/dL [facility] LABORATORY Comment: Diabetes: >=200 mg/dL plus symp toms BUN 25 (H) 10 - 20 mg/dL [facility] LABORATORY Creatinine 2.06 (H) 0.80 - 1.50 mg/dL [facility] LABORATORY Sodium 135 135 - 145 mmol/L [facility] LABORATORY Potassium 4.5 3.5 - 5.0 mmol/L [facility] LABORATORY Comment: Please note: ??Patients with WBC >100,00 0 may have falsely elevated Potassium levels. ??For accurate Potassium quantif ication in these patients send serum separator tube (gold top) for subsequent determinations. ??Contact the Clinical Chemistry Laboratory if there are any qu estions. Chloride 104 98 - 107 mmol/L [facility] LABORATORY CO2 20 (L) 22 - 31 mmol/L [facility] LABORATORY Anion Gap 11 5 - 15 mmol/L [facility] LABORATORY Calcium 7.8 (L) 8.5 - 10.5 mg/dL [facility] LABORATORY Estimated GFR 32 (L) >=60 mL/min/1.73 m?? [facility] LABORATORY Comment: This patient? s estimated [...] Organization Address City/State/[place] [address] POCT Glucose (01/23/2022 1:58 AM EST) athologist Signature POC Glucose 194 65 - [address] [facility] [address] mg/dL [facility] LABORATORY Comment: Supplemental ranges: <140 mg/dL before meals <180 mg/dL all other times of the day Specimen Anatomical Collection Method Collection Time Receive d Time (Source) Location / / Volume Laterality Blood 01/23/2022 1:58 AM 2 1:58 EST AM EST Danny Jewell MD POINT OF CARE TEST ORDERABLE S Performing Organization Address City/State/[place] [address] POCT Glucose (01/23/2022 1:08 AM EST) athologist Signature POC Glucose 193 65 - 199 [facility] mg/dL [facility] LABORATORY Comment: Supplemental ranges: <140 mg/dL before meals <180 mg/dL all other times of the day Specimen Anatomical Collection Method Collection Time Receive d Time (Source) Location / / Volume Laterality Blood 01/23/2022 1:08 AM 2 1:08 EST AM EST Danny Jewell MD POINT OF CARE TEST ORDERABLE S Performing Organization Address City/State/[place] [address] (ABNORMAL) BLOOD GAS 2 ARTERIAL (01/22/2022 11:58 PM EST) Analysis Performed At Patho logist Time Signature pH Art 7.38 7.35 - [facility] 7.45 [facility] LABORATORY pCO2 Art 35 35 - 45 [facility] mmHg [facility] LABORATORY pO2 Art 94 85 - 104 [facility] LABORATORY HCO3 Art 20.3 20.0 - [facility] 26.0 [facility] mmol/L [facility] LABORATORY BE Art -4.8 (L) -3.0 - 3.0 [facility] mmol/L [facility] LABORATORY Hgb Blood Gas 9.5 (L) 13.7 - [facility] 16.5 g/dL [facility] O2HB Art 95.3 94.0 - [facility] 97.0 % [facility] LABORATORY COHB Art 0.2 % [facility] LABORATORY Comment: Nonsmokers: 0.5-1.5% COHB Smokers: Variable, but usually less than 10% Toxic: 20-30% COHB Lethal: Greater than 60% COHB METHB Art 0.8 <=1.5 % [facility] LABORATORY Na Whole Blood 130 (L) 135 - 145 mmol/L [facility] LABORATORY K Whole Blood 4.3 3.5 - 5.0 mmol/L [facility] LABORATORY Comment: Please note: Patients with WBC >100,000 may have falsely elevated Potassium levels. Contact the Clinical Chemistry L aboratory if there are any questions. ICa Whole Blood 1.08 (L) 1.15 - 1.33 mmol/L [facility] LABORATORY Comment: Note: ??Total bilirubin higher than 20 m g/dL may lead to falsely low ionized calcium. CL Whole Blood 104 98 - 107 mmol/L [facility] LABORATORY Gluc Whole Bld 171 65 - 199 mg/dL [facility] LABORATORY Comment: Diabetes: >=200 mg/dL plus symp toms. Lactate WB 1.3 0.5 - 2.2 mmol/L [facility] LABORATORY FIO2 Art 50 % [facility] LABORATORY PF Ratio Art 188 [facility] LABORATORY Specimen Anatomical Collection Method Collection Time Receive d Time (Source) Location / / Volume Laterality Blood 01/22/2022 11:58 01/22/2022 PM EST 11:58 PM EST Danny Jewell MD CHEMISTRY ORDERABLES Performing Organization Address City/[facility]/[place] [address] [address] POCT Glucose (01/22/2022 11:41 PM EST) athologist Signature POC Glucose 193 65 - 199 GABRIELLE LOY mg/dL [facility]OR[facility]ORY Comment: Supplemental ranges: <140 mg/dL before meals <180 mg/dL all other times of the day Specimen Anatomical Collection Method Collection Time Receive d Time (Source) Location / / Volume Laterality Blood 01/22/2022 11:41 01/22/2022 PM EST 11:41 PM EST Danny Jewell MD POINT OF CARE TEST ORDERABLE S Performing Organization Address City/[facility]/[place] [address] POCT Glucose (01/22/2022 10:48 PM EST) athologist Signature POC Glucose 147 65 - 199 GABRIELLE LOY mg/dL [facility] Comment: Supplemental ranges: <140 mg/dL before meals <180 mg/dL all other times of the day Specimen Anatomical Collection Method Collection Time Receive d Time (Source) Location / / Volume Laterality Blood 01/22/2022 10:48 01/22/2022 PM EST 10:48 PM EST Danny Jewell MD POINT OF CARE TEST ORDERABLE S Performing Organization Address City/[facility]/[place] [address] POCT Glucose (01/22/2022 9:44 PM EST) athologist Signature POC Glucose 136 65 - 199 GABRIELLE LOY mg/dL [facility] Comment: Supplemental ranges: <140 mg/dL before meals <180 mg/dL all other times of the day Specimen Anatomical Collection Method Collection Time Receive d Time (Source) Location / / Volume Laterality Blood 01/22/2022 9:44 PM 03/09/202 2 9:44 EST PM EST Danny Jewell MD POINT OF CARE TEST ORDERABLE S Performing Organization Address City/State/ZIP Code Phon e Number [address] POCT Glucose (01/22/2022 8:52 PM EST) athologist Signature POC Glucose 111 65 - 199 GABRIELLE FERNÁNDEZLOY mg/dL [facility] Comment: Supplemental ranges: <140 mg/dL before meals <180 mg/dL all other times of the day Specimen Anatomical Collection Method Collection Time Receive d Time (Source) Location / / Volume Laterality Blood 01/22/2022 8:52 PM 2 8:52 EST PM EST Danny Jewell MD POINT OF CARE TEST ORDERABLE S Performing Organization Address City/State/[place] [address] POCT Glucose (01/22/2022 8:01 PM EST) athologist Signature POC Glucose 120 65 - 199 GABRIELLE FERNÁNDEZLOY mg/dL [facility] Comment: Supplemental ranges: <140 mg/dL before meals <180 mg/dL all other times of the day Specimen Anatomical Collection Method Collection Time Receive d Time (Source) Location / / Volume Laterality Blood 01/22/2022 8:01 PM 2 8:01 EST PM EST Danny Jewell MD POINT OF CARE TEST ORDERABLE S Performing Organization Address City/State/[place] [address] POCT Glucose (01/22/2022 6:30 PM EST) athologist Signature POC Glucose 101 65 - 199 GABRIELLE LOY mg/dL [facility] Comment: Supplemental ranges: <140 mg/dL before meals <180 mg/dL all other times of the day Specimen Anatomical Collection Method Collection Time Receive d Time (Source) Location / / Volume Laterality Blood 01/22/2022 6:30 PM 2 6:30 EST PM EST Danny Jewell MD POINT OF CARE TEST ORDERABLE S Performing Organization Address City/State/ZIP [place] [address] (ABNORMAL) BLOOD GAS 2 ARTERIAL (01/22/2022 5:56 PM EST) Analysis Performed At Patho logist Time Signature pH Art 7.34 (L) 7.35 - [facility] 7.45 [facility] pCO2 Art 35 35 - 45 [facility] mmHg [facility] pO2 Art 79 (L) 85 - 104 [facility] mmHg [facility] HCO3 Art 18.8 (L) 20.0 - [facility] 26.0 [facility] mmol/L [facility] LABORATORY BE Art -6.9 (L) -3.0 - 3.0 [facility] mmol/L [facility] Hgb Blood Gas 10.5 (L) 13.7 - [facility] 16.5 g/dL [facility] O2HB Art 93.5 (L) 94.0 - [facility] 97.0 % [facility] COHB Art 0.2 % [facility] Comment: Nonsmokers: 0.5-1.5% COHB Smokers: Variable, but usually less than 10% Toxic: 20-30% COHB Lethal: Greater than 60% COHB METHB Art 0.8 <=1.5 % [facility] Na Whole Blood 133 (L) 135 - 145 mmol/L [facility] K Whole Blood 4.0 3.5 - 5.0 mmol/L [facility] Comment: Please note: Patients with WBC >100,000 may have falsely elevated Potassium levels. Contact the Clinical Chemistry L aboratory if there are any questions. ICa Whole Blood 1.11 (L) 1.15 - 1.33 mmol/L [facility] Comment: Note: ??Total bilirubin higher than 20 m g/dL may lead to falsely low ionized calcium. CL Whole Blood 107 98 - 107 mmol/L [facility] Gluc Whole Bld 97 65 - 199 mg/dL [facility] Comment: Diabetes: >=200 mg/dL plus symp toms. Lactate WB 1.6 0.5 - 2.2 mmol/L [facility] FIO2 Art 50 % [facility] PF Ratio Art 158 [facility] Specimen Anatomical Collection Method Collection Time Receive d Time (Source) Location / / Volume Laterality Blood 01/22/2022 5:56 PM 2 5:56 EST PM EST Danny Jewell MD CHEMISTRY ORDERABLES Performing Organization Address City/State/ZIP Code Phon e Number [address] POCT Glucose (01/22/2022 4:54 PM EST) athologist Signature POC Glucose 125 65 - 199 [facility] Comment: Supplemental ranges: <140 mg/dL before meals <180 mg/dL all other times of the day Specimen Anatomical Collection Method Collection Time Receive d Time (Source) Location / / Volume Laterality Blood 01/22/2022 4:54 PM 2 4:54 EST PM EST Danny Jewell MD POINT OF CARE TEST ORDERABLE S Performing Organization Address City/State/ZIP Code Phon e Number [address] POCT Glucose (01/22/2022 3:48 PM EST) athologist Signature POC Glucose 127 65 - [address] [facility] [address] mg/dL [facility] Comment: Supplemental ranges: <140 mg/dL before meals <180 mg/dL all other times of the day Specimen Anatomical Collection Method Collection Time Receive d Time (Source) Location / / Volume Laterality Blood 01/22/2022 3:48 PM 2 3:48 EST PM EST Danny Jewell MD POINT OF CARE TEST ORDERABLE S Performing Organization Address City/[facility]/ZIP Code Phon e Number [address] Potassium (01/22/2022 3:15 PM EST) athologist Signature Potassium 4.5 3.5 - 5.0 [facility] mmol/L [facility] Comment: Please note: ??Patients [...] Organization Address City/State/[place] [address] POCT Glucose (01/22/2022 3:14 PM EST) athologist Signature POC Glucose 149 65 - 199 [facility]/dL [facility] Comment: Supplemental ranges: <140 mg/dL before meals <180 mg/dL all other times of the day Specimen Anatomical Collection Method Collection Time Receive d Time (Source) Location / / Volume Laterality Blood 01/22/2022 3:14 PM 2 3:14 EST PM EST Danny Jewell MD POINT OF CARE TEST ORDERABLE S Performing Organization Address City/State/[place] [address] POCT Glucose (01/22/2022 2:01 PM EST) P athologist Signature POC Glucose 160 65 - [address] [facility] [address] mg/dL [facility] Comment: Supplemental ranges: <140 mg/dL before meals <180 mg/dL all other times of the day Specimen Anatomical Collection Method Collection Time Receive d Time (Source) Location / / Volume Laterality Blood 01/22/2022 2:01 PM 2 2:01 EST PM EST Danny Jewell MD POINT OF CARE TEST ORDERABLE S Performing Organization Address City/State/[place] [address] (ABNORMAL) BLOOD GAS 2 ARTERIAL (01/22/2022 1:10 PM EST) Analysis Performed At Patho logist Time Signature pH Art 7.33 (L) 7.35 - [facility] 7.45 [facility] pCO2 Art 38 35 - 45 [facility] LABORATORY pO2 Art 76 (L) 85 - 104 [facility] LABORATORY HCO3 Art 19.7 (L) 20.0 - [facility] 26.0 [facility] mmol/L [facility] LABORATORY BE Art -6.2 (L) -3.0 - 3.0 [facility] mmol/L [facility] Hgb Blood Gas 10.8 (L) 13.7 - [facility] 16.5 g/dL [facility] O2HB Art 93.0 (L) 94.0 - [facility] 97.0 % [facility] COHB Art 0.3 % [facility] Comment: Nonsmokers: 0.5-1.5% COHB Smokers: Variable, but usually less than 10% Toxic: 20-30% COHB Lethal: Greater than 60% COHB METHB Art 0.8 <=1.5 % [facility] Na Whole Blood 132 (L) 135 - 145 mmol/L [facility] K Whole Blood 4.0 3.5 - 5.0 mmol/L [facility] Comment: Please note: Patients with WBC >100,000 may have falsely elevated Potassium levels. Contact the Clinical Chemistry L aboratory if there are any questions. ICa Whole Blood 1.12 (L) 1.15 - 1.33 mmol/L [facility] Comment: Note: ??Total bilirubin higher than 20 m g/dL may lead to falsely low ionized calcium. CL Whole Blood 107 98 - 107 mmol/L [facility] Gluc Whole Bld 149 65 - 199 mg/dL [facility] Comment: Diabetes: >=200 mg/dL plus symp toms. Lactate WB 1.9 0.5 - 2.2 mmol/L [facility] FIO2 Art 50 % [facility] PF Ratio Art 152 [facility] Specimen Anatomical Collection Method Collection Time Receive d Time (Source) Location / / Volume Laterality Blood 01/22/2022 1:10 PM 1:10 EST PM EST Danny Jewell MD CHEMISTRY ORDERABLES Performing Organization Address City/State/[place] [address] (ABNORMAL) Coox2 (01/22/2022 12:34 PM EST) Analysis Performed At Patho logist Time Signature pO2 Coox 32 mmHg [facility] LAB[facility] Hgb Blood Gas 11.3 (L) 13.7 - [facility] 16.5 g/dL [facility] O2HB Coox 63.4 % [facility] COHB Coox 0.3 % [facility] Comment: Nonsmokers: 0.5-1.5% COHB Smokers: Variable, but usually less than 10% Toxic: 20-30% COHB Lethal: Greater than 60% COHB METHB Coox 0.7 <=1.5 % [facility] LABORAT[facility] Source Coox Mixed Venous [facility] Specimen Anatomical Collection Method Collection Time Receive d Time (Source) Location / / Volume Laterality Blood 01/22/2022 12:34 01/22/2022 PM EST 12:34 PM EST Danny Jewell MD CHEMISTRY ORDERABLES Performing Organization Address City/[facility]/[place] [address] POCT Glucose (01/22/2022 11:02 AM EST) P athologist Signature POC Glucose 176 65 - 199 [facility] mg/dL [facility] Comment: Supplemental ranges: <140 mg/dL before meals <180 mg/dL all other times of the day Specimen Anatomical Collection Method Collection Time Receive d Time (Source) Location / / Volume Laterality Blood 01/22/2022 11:02 01/22/2022 AM EST 11:02 AM EST Danny Jewell MD POINT OF CARE TEST ORDERABLE S Performing Organization Address City/State/[place] [address] (ABNORMAL) POCT Glucose (01/22/2022 9:22 AM EST) P athologist Signature POC Glucose 257 (H) 65 - 199 [facility] Comment: Supplemental ranges: <140 mg/dL before meals <180 mg/dL all other times of the day Specimen Anatomical Collection Method Collection Time Receive d Time (Source) Location / / Volume Laterality Blood 01/22/2022 9:22 AM 2 9:22 EST AM EST Danny Jewell MD POINT OF CARE TEST ORDERABLE S Performing Organization Address City/State/[place] [address] (ABNORMAL) POCT Glucose (01/22/2022 7:53 AM EST) athologist Signature POC Glucose 237 (H) 65 - 199 [facility] mg/dL [facility] Comment: Supplemental ranges: <140 mg/dL before meals <180 mg/dL all other times of the day Specimen Anatomical Collection Method Collection Time Receive d Time (Source) Location / / Volume Laterality Blood 01/22/2022 7:53 AM 2 7:53 EST AM EST Danny Jewell MD POINT OF CARE TEST ORDERABLE S Performing Organization Address City/[facility]/[place] [address] (ABNORMAL) BLOOD GAS 2 ARTERIAL (01/22/2022 6:35 AM EST) Analysis Performed At Patho logist Time Signature pH Art 7.30 (L) 7.35 - [facility] 7.45 [facility]ORY pCO2 Art 38 35 - 45 [facility] mmHg [facility] pO2 Art 79 (L) 85 - 104 [facility] mmHg [facility] HCO3 Art 18.0 (L) 20.0 - [facility] 26.0 [facility] mmol/L [facility] LABORATORY BE Art -8.5 (L) -3.0 - 3.0 [facility] mmol/L [facility] Hgb Blood Gas 11.4 (L) 13.7 - [facility] 16.5 g/dL [facility] O2HB Art 92.8 (L) 94.0 - [facility] 97.0 % [facility] COHB Art 0.3 % [facility] Comment: Nonsmokers: 0.5-1.5% COHB Smokers: Variable, but usually less than 10% Toxic: 20-30% COHB Lethal: Greater than 60% COHB METHB Art 0.7 <=1.5 % [facility] Na Whole Blood 134 (L) 135 - 145 mmol/L [facility] K Whole Blood 3.9 3.5 - 5.0 mmol/L [facility] Comment: Please note: Patients with WBC >100,000 may have falsely elevated Potassium levels. Contact the Clinical Chemistry L aboratory if there are any questions. ICa Whole Blood 1.17 1.15 - 1.33 mmol/L [facility] Comment: Note: ??Total bilirubin higher than 20 m g/dL may lead to falsely low ionized calcium. CL Whole Blood 106 98 - 107 mmol/L [facility] Gluc Whole Bld 233 (H) 65 - 199 mg/dL [facility] Comment: Diabetes: >=200 mg/dL plus symp toms. Lactate WB 3.2 (H) 0.5 - 2.2 mmol/L [facility] FIO2 Art 50 % [facility] PF Ratio Art 158 [facility] Specimen Anatomical Collection Method Collection Time Receive d Time (Source) Location / / Volume Laterality Blood 01/22/2022 6:35 AM 2 6:35 EST AM EST Danny Jewell MD CHEMISTRY ORDERABLES Performing Organization Address City/State/ZIP [place] [address] IgA (01/22/2022 6:35 AM EST) P athologist Signature IgA 109 70 - 400 [facility] mg/dL [facility] Specimen Anatomical Collection Method Collection Time Receive d Time (Source) Location / / Volume Laterality Blood 01/22/2022 6:35 AM 2 6:44 EST AM EST Resulting Agency Comment Spec In Lab Danny Jewell MD IMMUNOLOGY ORDERABLES Performing Organization Address City/State/ZIP Code Phon e Number [address] (ABNORMAL) POCT Glucose (01/22/2022 5:48 AM EST) P athologist Signature POC Glucose 271 (H) 65 - [address] [facility] mg/dL [facility] Comment: Supplemental ranges: <140 mg/dL before meals <180 mg/dL all other times of the day Specimen Anatomical Collection Method Collection Time Receive d Time (Source) Location / / Volume Laterality Blood 01/22/2022 5:48 AM 2 5:48 EST AM EST Danny Jewell MD POINT OF CARE TEST ORDERABLE S Performing Organization Address City/[facility]/[place] [address] (ABNORMAL) POCT Glucose (01/22/2022 4:41 AM EST) P athologist Signature POC Glucose 249 (H) 65 - [address] [facility] [address] mg/dL [facility] Comment: Supplemental ranges: <140 mg/dL before meals <180 mg/dL all other times of the day Specimen Anatomical Collection Method Collection Time Receive d Time (Source) Location / / Volume Laterality Blood 01/22/2022 4:41 AM 2 4:41 EST AM EST Danny Jewell MD POINT OF CARE TEST ORDERABLE S Performing Organization Address City/State/[place] [address] COVID-19 PCR (01/22/2022 2:45 AM EST) [facility] Method Time Signature SARS-CoV-2 Not Detected Not Detected GABRIELLE RNA PCR [facility] Comment: This result should be interpreted [...] using the Simplexa COVID-19 Direct Assay by MobileAwareneha alvarez as authorized by the FDA issued Emergency Use Authorization (EUA). This assay is intended for In-vitro Diagnostic (IVD) use with nasopharyngeal swabs collected from individuals meeting the CDC criteria for testing. e assay is performed based on the instructions for use and additional guid evgenye provided by the FDA. Testing is performed in the Microbiology Laboratory within the Department of Pathology and Laboratory Medicine at [facility], certified under the Clinical Laboratory Improvement [...] fact sheets at the following FDA website: https://www.fda.gov/medical-devices/cvonwbkhigy-owcckpe-9044-ublng-73-itsqkpgby- ohr-cmqmqtqiqxpeho-ydtqvuf-devices/ebahq-gonmxrjqfed-xzqk SARS-CoV-2 Source DEVELOPMENTAL THERAPIST Swab [facility] LABORATORY Specimen (Source) Anatomical Collection Method Collection Time Re ceived Time Location / / Volume Laterality Nasopharyngeal Swab 01/22/2022 2:45 01/22 AM EST 3:50 AM EST Comment: Symptoms->Surveillance Resulting Agency Comment Spec In Lab Danny Jewell MD MICROBIOLOGY - GENERAL ORDER CATHY Performing Organization Address City/[facility]/ZIP Code Phon e Number [address] (ABNORMAL) Coox2 (01/22/2022 2:16 AM EST) Analysis Performed At Patho logist Time Signature pO2 Coox 33 mmHg [facility] LABORATORY Hgb Blood Gas 12.1 (L) 13.7 - [facility] 16.5 g/dL [facility] O2HB Coox 61.5 % [facility] COHB Coox 0.4 % [facility] Comment: Nonsmokers: 0.5-1.5% COHB Smokers: Variable, but usually less than 10% Toxic: 20-30% COHB Lethal: Greater than 60% COHB METHB Coox 0.8 <=1.5 % [facility] LABORATORY Source Coox Mixed Venous [facility] Specimen Anatomical Collection Method Collection Time Receive d Time (Source) Location / / Volume Laterality Blood 01/22/2022 2:16 AM 2:16 EST AM EST Danny Jewell MD CHEMISTRY ORDERABLES Performing Organization Address City/[facility]/ZIP [place] [address] (ABNORMAL) BLOOD GAS 2 ARTERIAL (01/22/2022 2:12 AM EST) Analysis Performed At Patho logist Time Signature pH Art 7.31 (L) 7.35 - [facility] 7.45 [facility] LABORATORY pCO2 Art 38 35 - 45 [facility] LABORATORY pO2 Art 85 85 - 104 [facility] LABORATORY HCO3 Art 18.7 (L) 20.0 - [facility] 26.0 [facility] mmol/L [facility] LABORATORY BE Art -7.6 (L) -3.0 - 3.0 [facility] mmol/L [facility] LABORATORY Hgb Blood Gas 11.5 (L) 13.7 - [facility] 16.5 g/dL [facility] O2HB Art 93.9 (L) 94.0 - [facility] 97.0 % [facility]ORY COHB Art 0.3 % [facility] Comment: Nonsmokers: 0.5-1.5% COHB Smokers: Variable, but usually less than 10% Toxic: 20-30% COHB Lethal: Greater than 60% COHB METHB Art 0.8 <=1.5 % [facility]ORATORY Na Whole Blood 134 (L) 135 - 145 mmol/L [facility] K Whole Blood 4.4 3.5 - 5.0 mmol/L [facility] Comment: Please note: Patients with WBC >100,000 may have falsely elevated Potassium levels. Contact the Clinical Chemistry L aboratory if there are any questions. ICa Whole Blood 1.16 1.15 - 1.33 mmol/L [facility] Comment: Note: ??Total bilirubin higher than 20 m g/dL may lead to falsely low ionized calcium. CL Whole Blood 108 (H) 98 - 107 mmol/L [facility] Gluc Whole Bld 266 (H) 65 - 199 mg/dL [facility] Comment: Diabetes: >=200 mg/dL plus symp toms. Lactate WB 2.9 (H) 0.5 - 2.2 mmol/L [facility] LAB[facility]ATORY FIO2 Art 50 % [facility] PF Ratio Art 170 [facility] LAB[facility]ORY Specimen Anatomical Collection Method Collection Time Receive d Time (Source) Location / / Volume Laterality Blood 01/22/2022 2:12 AM 2 2:12 EST AM EST Danny Jewell MD CHEMISTRY ORDERABLES Performing Organization Address City/State/ZIP [place] [address] (ABNORMAL) Differential, Automated (01/22/2022 2:00 AM EST) Patholo gist Method Time Signature Neutrophils % 90.1 % [facility] LABORATORY Neutr Abs (ANC) 16.17 (H) 1.70 - [facility] 6.10 [facility] x10(3)/[facility] L LABORATORY Lymphocytes % 4.9 % [facility] LABORATORY Lymphocytes Abs 0.9 0.9 - 3.2 [facility] x10(3)/[facility] LABORATORY Monocytes % 4.0 % [facility] LABORATORY Monocyte Abs 0.7 0.3 - 0.9 [facility] x10(3)/[facility] LABORATORY Eosinophils % 0.1 % [facility] LABORATORY Eosinophils Abs 0.0 0.0 - 0.4 [facility] x10(3)/[facility] LABORATORY Basophils % 0.4 % [facility] LABORATORY Basophils Abs 0.1 0.0 - 0.1 [facility] x10(3)/[facility] LABORATORY Immature Gran % 0.50 % [facility] LAB[facility] Comment: Immature granulocytes(IG's)percentage an d absolute count will include metamyelocytes, myelocytes, and promyelo cytes. Blood smears from CBCs yielding IG's will be scanned manually for concor dance. If this scan disagrees with the automated IG or if promyelocytes are not ed, a manual differential will be performed. Nikole Gran Abs 0.09 (H) 0.00 - 0.04 x10(3)/[facility] LABORATORY Specimen Anatomical Collection Method Collection Time Receive d Time (Source) Location / / Volume Laterality Blood 01/22/2022 2:00 AM 2:16 EST AM EST Resulting Agency Comment Spec In Lab [facility] HEMATOLOG[facility] ORDERABLES Performing Organization Address City/State/ZIP [place] [address] (ABNORMAL) Hemogram (01/22/2022 2:00 AM EST) [facility] gist Method Time Signature WBC 17.9 (H) 4.0 - 9.5 [facility] x10(3)/[facility] LABORATORY RBC 3.70 (L) 4.58 - [facility] 5.54 [facility] x10(6)/[facility] LABORATORY Hemoglobin 11.7 (L) 13.7 - [facility] 16.5 g/dL [facility] LABORATORY Hematocrit 32.9 (L) 40.5 - [facility] 48.5 % [facility] [facility] MCV 88.9 82.9 - [facility]1 [facility] LABORATORY MCH 31.6 27.5 - [facility] 32.1 pg [facility] MCHC 35.6 32.0 - [place] 35.7 g/dL [facility] Platelets 235 145 - 357 [facility] x10(3)/[facility] LABORATORY RDWSD 41.9 36.0 - [facility] 45.0 [facility] LABORATORY RDWCV 13.0 11.4 - [facility] 13.8 % [facility] MPV 10.0 7.6 - 12.9 [facility] LABORATORY nRBC % Auto 0.1 % [facility] nRBC Abs Auto 0.020 (H) 0.000 - [place] 0.000 [facility] x10(3)/[facility] LABORATORY Specimen Anatomical Collection Method Collection Time Receive d Time (Source) Location / / Volume Laterality Blood 01/22/2022 2:00 AM 2:16 EST AM EST Resulting Agency Comment Spec In Lab [facility] HEMATOLOGY ORDERABLES Performing Organization Address City/State/ZIP [place] [address] (ABNORMAL) Basic Metabolic Panel (non-fasting) (01/22/2022 2:00 AM EST) P athologist Signature Glucose Lvl 293 (H) 65 - 199 [facility] mg/dL [facility] Comment: Diabetes: >=200 mg/dL plus symp toms BUN 20 10 - 20 mg/dL [facility] Creatinine 1.63 (H) 0.80 - 1.50 mg/dL [facility] Sodium 137 135 - 145 mmol/L [facility] Potassium 4.9 3.5 - 5.0 mmol/L [facility] Comment: Please note: ??Patients with WBC >100,00 0 may have falsely elevated Potassium levels. ??For accurate Potassium quantif ication in these patients send serum separator tube (gold top) for subsequent determinations. ??Contact the Clinical Chemistry Laboratory if there are any qu estions. Chloride 106 98 - 107 mmol/L [facility] CO2 19 (L) 22 - 31 mmol/L [facility] Anion Gap 12 5 - 15 mmol/L [facility] Calcium 8.2 (L) 8.5 - 10.5 mg/dL [facility] Estimated GFR 43 (L) >=60 mL/min/1.73 m?? [facility] Comment: This patient? s estimated [...] Organization Address City/State/Z[place] [address] (ABNORMAL) Troponin (01/22/2022 2:00 AM EST) P athologist Signature Troponin-T 1.07 (H) 0.00 - [facility] 0.00 ng/mL [facility] Comment: The 99th percentile for Troponin T is le ss than 0.01 ng/mL, any detectable cTnT concentration using this assay should be considered elevated. According to the third universal definit ion of myocardial infarction the following criteria with a clinical prese ntation consistent with acute myocardial ischemia meets the diagnosis for a myocardial infarction (IN). Detection of a rise and/or fall of [...] additional sample may be indicated. Reference: Third [place] Definition of Myocardial Infarction. Journal of the [employer] 2012;60:1581-98 Specimen Anatomical Collection Method Collection Time Receive d Time (Source) Location / / Volume Laterality Blood 01/22/2022 2:00 AM 2 2:16 EST AM EST Resulting Agency Comment Spec In Lab Danny Jewell MD CHEMISTRY ORDERABLES Performing Organization Address City/State/[place] [address] (ABNORMAL) POCT Glucose (01/22/2022 1:20 AM EST) P athologist Signature POC Glucose 239 (H) 65 - 199 [facility] mg/dL [facility] Comment: Supplemental ranges: <140 mg/dL before meals <180 mg/dL all other times of the day Specimen Anatomical Collection Method Collection Time Receive d Time (Source) Location / / Volume Laterality Blood 01/22/2022 1:20 AM 2 1:20 EST AM EST Danny Jewell MD POINT OF CARE TEST ORDERABLE S Performing Organization Address City/State/[place] [address] (ABNORMAL) POCT Glucose (01/21/2022 11:54 PM EST) P athologist Signature POC Glucose 224 (H) 65 - [address] [facility] [facility] mg[facility]dL [facility] Comment: Supplemental ranges: <140 mg/dL before meals <180 mg/dL all other times of the day Specimen Anatomical Collection Method Collection Time Receive d Time (Source) Location / / Volume Laterality Blood 01/21/2022 11:54 01/21/2022 PM EST 11:54 PM EST Danny Jewell MD POINT OF CARE TEST ORDERABLE S Performing Organization Address City/State/ZIP [place] [address] (ABNORMAL) Coox2 (01/21/2022 10:38 PM EST) Analysis Performed At Patho logist Time Signature pO2 Coox 32 mmHg [facility] Hgb Blood Gas 12.9 (L) 13.7 - [facility] 16.5 g/dL [facility] O2HB Coox 61.0 % [facility] COHB Coox 0.3 % [facility] Comment: Nonsmokers: 0.5-1.5% COHB Smokers: Variable, but usually less than 10% Toxic: 20-30% COHB Lethal: Greater than 60% COHB METHB Coox 0.7 <=1.5 % [facility] Source Coox Mixed Venous [facility] Specimen Anatomical Collection Method Collection Time Receive d Time (Source) Location / / Volume Laterality Blood 01/21/2022 10:38 01/21/2022 PM EST 10:38 PM EST Danny Jewell MD CHEMISTRY ORDERABLES Performing Organization Address City/State/ZIP [place] [address] (ABNORMAL) POCT Glucose (01/21/2022 10:01 PM EST) P athologist Signature POC Glucose 205 (H) 65 - [address] [facility] mg/dL [facility] Comment: Supplemental ranges: <140 mg/dL before meals <180 mg/dL all other times of the day Specimen Anatomical Collection Method Collection Time Receive d Time (Source) Location / / Volume Laterality Blood 01/21/2022 10:01 01/21/2022 PM EST 10:01 PM EST Danny Jewell MD POINT OF CARE TEST ORDERABLE S Performing Organization Address City/State/[place] [address] (ABNORMAL) Potassium (01/21/2022 10:00 PM EST) P athologist Signature Potassium 5.1 (H) 3.5 - 5.0 [facility] mmol/L [facility] Comment: result rechecked-KT Please note: ??Patients [...] Organization Address City/State/[place] [address] (ABNORMAL) BLOOD GAS 2 ARTERIAL (01/21/2022 9:59 PM EST) Analysis Performed At Patho logist Time Signature pH Art 7.30 (L) 7.35 - [facility] 7.45 [facility] pCO2 Art 35 35 - 45 [facility] mmHg [facility] pO2 Art 83 (L) 85 - 104 [facility] mmHg [facility] HCO3 Art 17.1 (L) 20.0 - [facility] 26.0 [facility] mmol/L [facility] LABORATORY BE Art -9.3 (L) -3.0 - 3.0 [facility] mmol/L [facility] Hgb Blood Gas 12.8 (L) 13.7 - [facility] 16.5 g/dL [facility] O2HB Art 93.7 (L) 94.0 - [facility] 97.0 % [facility] COHB Art 0.3 % [facility] Comment: Nonsmokers: 0.5-1.5% COHB Smokers: Variable, but usually less than 10% Toxic: 20-30% COHB Lethal: Greater than 60% COHB METHB Art 0.7 <=1.5 % [facility] Na Whole Blood 132 (L) 135 - 145 mmol/L [facility] K Whole Blood 4.9 3.5 - 5.0 mmol/L [facility] Comment: Please note: Patients with WBC >100,000 may have falsely elevated Potassium levels. Contact the Clinical Chemistry L aboratory if there are any questions. ICa Whole Blood 1.22 1.15 - 1.33 mmol/L [facility] Comment: Note: ??Total bilirubin higher than 20 m g/dL may lead to falsely low ionized calcium. CL Whole Blood 108 (H) 98 - 107 mmol/L [facility] Gluc Whole Bld 212 (H) 65 - 199 mg/dL [facility] Comment: Diabetes: >=200 mg/dL plus symp toms. Lactate WB 2.2 0.5 - 2.2 mmol/L [facility] FIO2 Art 50 % [facility] PF Ratio Art 166 [facility] Specimen Anatomical Collection Method Collection Time Receive d Time (Source) Location / / Volume Laterality Blood 01/21/2022 9:59 PM 9:59 EST PM EST Danny Jewell MD CHEMISTRY ORDERABLES Performing Organization Address City/State/ZIP [place] [address] (ABNORMAL) POCT Glucose (01/21/2022 9:04 PM EST) P athologist Signature POC Glucose 208 (H) 65 - 199 [facility] mg/dL [facility] Comment: Supplemental ranges: <140 mg/dL before meals <180 mg/dL all other times of the day Specimen Anatomical Collection Method Collection Time Receive d Time (Source) Location / / Volume Laterality Blood 01/21/2022 9:04 PM 2 9:04 EST PM EST Danny Jewell MD POINT OF CARE TEST ORDERABLE S Performing Organization Address City/[facility]/[place] [address] POCT Glucose (01/21/2022 8:09 PM EST) athologist Signature POC Glucose 183 65 - 199 [facility] mg/dL [facility] Comment: Supplemental ranges: <140 mg/dL before meals <180 mg/dL all other times of the day Specimen Anatomical Collection Method Collection Time Receive d Time (Source) Location / / Volume Laterality Blood 01/21/2022 8:09 PM 2 8:09 EST PM EST Danny Jewell MD POINT OF CARE TEST ORDERABLE S Performing Organization Address City/State/[place] [address] POCT Glucose (01/21/2022 7:06 PM EST) athologist Signature POC Glucose 183 65 - 199 [facility] mg/dL [facility] Comment: Supplemental ranges: <140 mg/dL before meals <180 mg/dL all other times of the day Specimen Anatomical Collection Method Collection Time Receive d Time (Source) Location / / Volume Laterality Blood 01/21/2022 7:06 PM 2 7:06 EST PM EST Danny Jewell MD POINT OF CARE TEST ORDERABLE S Performing Organization Address City/State/ZIP Code Phon e Number [address] POCT Glucose (01/21/2022 6:00 PM EST) athologist Signature POC Glucose 155 65 - 199 [facility] mg/dL [facility] Comment: Supplemental ranges: <140 mg/dL before meals <180 mg/dL all other times of the day Specimen Anatomical Collection Method Collection Time Receive d Time (Source) Location / / Volume Laterality Blood 01/21/2022 6:00 PM 2 6:00 EST PM EST Danny Jewell MD POINT OF CARE TEST ORDERABLE S Performing Organization Address City/State/[place] [address] POCT Glucose (01/21/2022 5:06 PM EST) P athologist Signature POC Glucose 149 65 - 199 [facility] mg/dL [facility] Comment: Supplemental ranges: <140 mg/dL before meals <180 mg/dL all other times of the day Specimen Anatomical Collection Method Collection Time Receive d Time (Source) Location / / Volume Laterality Blood 01/21/2022 5:06 PM 5:06 EST PM EST Danny Jewell MD POINT OF CARE TEST ORDERABLE S Performing Organization Address City/State/[place] [address] (ABNORMAL) BLOOD GAS 2 ARTERIAL (01/21/2022 4:29 PM EST) Analysis Performed At Patho logist Time Signature pH Art 7.36 7.35 - [facility] 7.45 [facility]ORY pCO2 Art 35 35 - 45 [facility] mmHg [facility] pO2 Art 70 (L) 85 - 104 [facility] mmHg [facility] HCO3 Art 19.3 (L) 20.0 - [facility] 26.0 [facility] mmol/L [facility] LABORATORY BE Art -6.0 (L) -3.0 - 3.0 [facility] mmol/L [facility] Hgb Blood Gas 12.3 (L) 13.7 - [facility] 16.5 g/dL [facility] O2HB Art 91.2 (L) 94.0 - [facility] 97.0 % [facility] COHB Art 0.3 % [facility] Comment: Nonsmokers: 0.5-1.5% COHB Smokers: Variable, but usually less than 10% Toxic: 20-30% COHB Lethal: Greater than 60% COHB METHB Art 0.7 <=1.5 % [facility] Na Whole Blood 135 135 - 145 mmol/L [facility] K Whole Blood 4.7 3.5 - 5.0 mmol/L [facility] Comment: Please note: Patients with WBC >100,000 may have falsely elevated Potassium levels. Contact the Clinical Chemistry L aboratory if there are any questions. ICa Whole Blood 1.24 1.15 - 1.33 mmol/L [facility] Comment: Note: ??Total bilirubin higher than 20 m g/dL may lead to falsely low ionized calcium. CL Whole Blood 110 (H) 98 - 107 mmol/L [facility] Gluc Whole Bld 173 65 - 199 mg/dL [facility] Comment: Diabetes: >=200 mg/dL plus symp toms. Lactate WB 1.4 0.5 - 2.2 mmol/L [facility] FIO2 Art 40 % [facility] PF Ratio Art 175 [facility] Specimen Anatomical Collection Method Collection Time Receive d Time (Source) Location / / Volume Laterality Blood 01/21/2022 4:29 PM 4:29 EST PM EST Danny Jewell MD CHEMISTRY ORDERABLES Performing Organization Address City/State/ZIP [place] [address] (ABNORMAL) Coox2 (01/21/2022 4:07 PM EST) Analysis Performed At Patho logist Time Signature pO2 Coox 24 mmHg [facility] Hgb Blood Gas 11.9 (L) 13.7 - [facility] 16.5 g/dL [facility] O2HB Coox 43.9 % [facility] COHB Coox 0.7 % [facility] Comment: Nonsmokers: 0.5-1.5% COHB Smokers: Variable, but usually less than 10% Toxic: 20-30% COHB Lethal: Greater than 60% COHB METHB Coox 0.5 <=1.5 % [facility] Source Coox Mixed Venous [facility] Specimen Anatomical Collection Method Collection Time Receive d Time (Source) Location / / Volume Laterality Blood 01/21/2022 4:07 PM 2 4:07 EST PM EST Danny Jewell MD CHEMISTRY ORDERABLES Performing Organization Address City/[facility]/[place] [address] POCT Glucose (01/21/2022 4:02 PM EST) athologist Signature POC Glucose 190 65 - 199 [facility] mg/dL [facility] Comment: Supplemental ranges: <140 mg/dL before meals <180 mg/dL all other times of the day Specimen Anatomical Collection Method Collection Time Receive d Time (Source) Location / / Volume Laterality Blood 01/21/2022 4:02 PM 2 4:02 EST PM EST Danny Jewell MD POINT OF CARE TEST ORDERABLE S Performing Organization Address City/[facility]/[place] [address] (ABNORMAL) Hemoglobin (01/21/2022 2:40 PM EST) athologist Signature Hemoglobin 11.9 (L) 13.7 - [facility] 16.5 g/dL [facility] Specimen Anatomical Collection Method Collection Time Receive d Time (Source) Location / / Volume Laterality Blood 01/21/2022 2:40 PM 2 2:55 EST PM EST Resulting Agency Comment Spec In Lab Danny Jewell MD HEMATOLOGY ORDERABLES Performing Organization Address City/[facility]/[place] [address] Potassium (01/21/2022 2:40 PM EST) athologist Signature Potassium 4.0 3.5 - 5.0 [facility] mmol/L [facility] Comment: Please note: ??Patients [...] Organization Address City/State/ZIP [place] [address] (ABNORMAL) BLOOD GAS 2 ARTERIAL (01/21/2022 2:25 PM EST) athologist Signature pH Art 7.28 7.35 - [facility] (Critical) 7.45 [facility] Comment: Noted by electrical instrument maker. pCO2 Art 41 35 - 45 mmHg [facility] pO2 Art 218 (H) 85 - 104 mmHg [facility] HCO3 Art 18.6 (L) 20.0 - 26.0 mmol/L [facility] BE Art -8.2 (L) -3.0 - 3.0 mmol/L [facility] Hgb Blood Gas 11.9 (L) 13.7 - 16.5 g/dL [facility] O2HB Art 97.6 (H) 94.0 - 97.0 % [facility] COHB Art 0.3 % [facility] Comment: Nonsmokers: 0.5-1.5% COHB Smokers: Variable, but usually less than 10% Toxic: 20-30% COHB Lethal: Greater than 60% COHB METHB Art 0.7 <=1.5 % [facility] Na Whole Blood 135 135 - 145 mmol/L [facility] K Whole Blood 3.2 (L) 3.5 - 5.0 mmol/L [facility] Comment: Please note: Patients with WBC >100,000 may have falsely elevated Potassium levels. Contact the Clinical Chemistry L aboratory if there are any questions. ICa Whole Blood 1.26 1.15 - 1.33 mmol/L [facility] Comment: Note: ??Total bilirubin higher than 20 m g/dL may lead to falsely low ionized calcium. CL Whole Blood 113 (H) 98 - 107 mmol/L [facility] Gluc Whole Bld 140 65 - 199 mg/dL [facility] Comment: Diabetes: >=200 mg/dL plus symp toms. Lactate WB 1.3 0.5 - 2.2 mmol/L [facility] FIO2 Art 100 % [facility] PF Ratio Art 218 [facility] Specimen Anatomical Collection Method Collection Time Receive d Time (Source) Location / / Volume Laterality Blood 01/21/2022 2:25 PM 2 2:25 EST PM EST Danny Jewell MD CHEMISTRY ORDERABLES Performing Organization Address City/[facility]/ZIP Code Phon e Number [address] (ABNORMAL) Tryptase (01/21/2022 1:47 PM EST) P athologist Signature Tryptase 12.5 (H) <=8.4 ng/mL [facility] Comment: Total tryptase concentrations that [...] Organization Address City/State/[place] [address] (ABNORMAL) BLOOD GAS 2 ARTERIAL (01/21/2022 1:35 PM EST) Analysis Performed At Patho logist Time Signature pH Art 7.31 (L) 7.35 - [facility] 7.45 [facility]ORATORY pCO2 Art 44 35 - 45 [facility] LABORATORY pO2 Art 65 (L) 85 - 104 [facility] LABORATORY HCO3 Art 21.9 20.0 - [facility] 26.0 [facility] mmol/L [facility] LABORATORY BE Art -4.4 (L) -3.0 - 3.0 [facility] mmol/L [facility]ORY Hgb Blood Gas 10.9 (L) 13.7 - [facility] 16.5 g/dL [facility] O2HB Art 88.4 (L) 94.0 - [facility] 97.0 % [facility] COHB Art 0.3 % [facility] Comment: Nonsmokers: 0.5-1.5% COHB Smokers: Variable, but usually less than 10% Toxic: 20-30% COHB Lethal: Greater than 60% COHB METHB Art 0.7 <=1.5 % [facility] Na Whole Blood 136 135 - 145 mmol/L [facility] K Whole Blood 4.5 3.5 - 5.0 mmol/L [facility] Comment: Please note: Patients with WBC >100,000 may have falsely elevated Potassium levels. Contact the Clinical Chemistry L aboratory if there are any questions. ICa Whole Blood 1.18 1.15 - 1.33 mmol/L [facility] Comment: Note: ??Total bilirubin higher than 20 m g/dL may lead to falsely low ionized calcium. CL Whole Blood 110 (H) 98 - 107 mmol/L [facility] Gluc Whole Bld 150 65 - 199 mg/dL [facility] Comment: Diabetes: >=200 mg/dL plus symp toms. Lactate WB 1.1 0.5 - 2.2 mmol/L [facility]ORY FIO2 Art 100 % [facility] PF Ratio Art 65 [facility]ORY Specimen Anatomical Collection Method Collection Time Receive d Time (Source) Location / / Volume Laterality Blood 01/21/2022 1:35 PM 1:35 EST PM EST Danny Jewell MD CHEMISTRY ORDERABLES Performing Organization Address City/State/Z[place] [address] XR Chest One View [...] who have questions please contact the health careers counsellor that requested your imaging first. ? Narrative [...] ho have questions please contact the health careers counsellor that requested your imaging first. Danny Jewell MD IMG DX ORDERABLES (ABNORMAL) BLOOD GAS 2 ARTERIAL (01/21/2022 12:47 PM EST) Analysis Performed At Patho logist Time Signature pH Art 7.37 7.35 - [facility] 7.45 [facility]ATORY pCO2 Art 42 35 - 45 [facility] mmHg [facility]ORY pO2 Art 193 (H) 85 - 104 [facility] mmHg [facility]ATORY HCO3 Art 23.5 20.0 - [facility] 26.0 [facility] mmol/L [facility] LABORATORY BE Art -1.8 -3.0 - 3.0 [facility] mmol/L [facility]ATORY Hgb Blood Gas 11.8 (L) 13.7 - [facility] 16.5 g/dL [facility]ORY O2HB Art 97.4 (H) 94.0 - [facility] 97.0 % [facility] COHB Art 0.3 % [facility] Comment: Nonsmokers: 0.5-1.5% COHB Smokers: Variable, but usually less than 10% Toxic: 20-30% COHB Lethal: Greater than 60% COHB METHB Art 0.8 <=1.5 % [facility] Na Whole Blood 135 135 - 145 mmol/L [facility] K Whole Blood 4.2 3.5 - 5.0 mmol/L [facility] Comment: Please note: Patients with WBC >100,000 may have falsely elevated Potassium levels. Contact the Clinical Chemistry L aboratory if there are any questions. ICa Whole Blood 1.12 (L) 1.15 - 1.33 mmol/L [facility] Comment: Note: ??Total bilirubin higher than 20 m g/dL may lead to falsely low ionized calcium. CL Whole Blood 109 (H) 98 - 107 mmol/L [facility] Gluc Whole Bld 150 65 - 199 mg/dL [facility] Comment: Diabetes: >=200 mg/dL plus symp toms. Lactate WB 1.1 0.5 - 2.2 mmol/L [facility] FIO2 Art 100 % [facility] PF Ratio Art 193 [facility] Specimen Anatomical Collection Method Collection Time Receive d Time (Source) Location / / Volume Laterality Blood 01/21/2022 12:47 01/21/2022 PM EST 12:47 PM EST Danny Jewell MD CHEMISTRY ORDERABLES Performing Organization Address City/State/ZIP [place] [address] (ABNORMAL) Coox2 (01/21/2022 12:42 PM EST) Analysis Performed At Patho logist Time Signature pO2 Coox 29 mmHg [facility]ORY Hgb Blood Gas 12.0 (L) 13.7 - [facility] 16.5 g/dL [facility] O2HB Coox 53.7 % [facility] COHB Coox 0.6 % [facility] Comment: Nonsmokers: 0.5-1.5% COHB Smokers: Variable, but usually less than 10% Toxic: 20-30% COHB Lethal: Greater than 60% COHB METHB Coox 0.8 <=1.5 % [facility] LAB[facility]AT[facility] Source Coox Mixed Venous [facility] [facility] Specimen Anatomical Collection Method Collection Time Receive d Time (Source) Location / / Volume Laterality Blood 01/21/2022 12:42 01/21/2022 PM EST 12:42 PM EST Danny Jewell MD CHEMISTRY ORDERABLES Performing Organization Address City/State/ZIP [place] [address] EKG 12 Lead (01/21/2022 12:37 PM EST) Component Value Ref Range Test Analysis Performed Pathologis t Method Time At Signature Ventricular rate 67 BPM MUSE SYSTEM Atrial Rate 67 BPM MUSE SYSTEM P-R Interval 176 ms MUSE SYSTEM QRS Duration 82 ms MUSE SYSTEM Q-T Interval 440 ms MUSE SYSTEM QTC Calculated 464 ms MUSE SYSTEM (Bezet) Calculated P Mcdonald 50 degrees MUSE SYSTEM Calculated R Mcdonald -15 degrees MUSE SYSTEM Calculated T Mcdonald 23 degrees MUSE SYSTEM INTERPRETATION Normal sinus rhythm MUSE SYSTEM possible ??Inferior infarct (cited on or before 25-SEP-2016 ??08:11 Abnormal ECG When compared with ECG of 01-JAN-2022 16:38, No significant change was found I personally reviewed the tracing and edited the fellows int erpretation Confirmed by fellow Brett Tenorio ([id number]) on 01/21/2022 6:4 4:33 PM Confirmed by Ita Peck ([id number]) on 01/21/2022 7:40:27 PM Specimen Anatomical Collection Method Collection Time Receive d Time (Source) Location / / Volume Laterality 01/21/2022 12:37 01/21/2022 7:40 PM EST PM EST Danny Jewell MD ECG ORDERABLES Performing Organization Address City/[facility]/ZIP Code Phon e Number MUSE SYSTEM (ABNORMAL) BLOOD GAS 2 ARTERIAL (01/21/2022 11:37 AM EST) P athologist Signature pH Art 7.39 7.35 - [facility] 7.45 [facility] pCO2 Art 43 35 - 45 [facility]ORY pO2 Art 86 85 - 104 [facility]ORY HCO3 Art 25.0 20.0 - [facility] 26.0 [facility] mmol/L [facility] BE Art 0.0 -3.0 - 3.0 [facility] mmol/L [facility] Hgb Blood Gas 8.5 (L) 13.7 - [facility] 16.5 g/dL [facility] O2HB Art 95.1 94.0 - [facility] 97.0 % [facility] COHB Art 0.1 % [facility] Comment: Nonsmokers: 0.5-1.5% COHB Smokers: Variable, but usually less than 10% Toxic: 20-30% COHB Lethal: Greater than 60% COHB METHB Art 0.3 <=1.5 % [facility] Na Whole Blood 134 (L) 135 - 145 mmol/L [facility] K Whole Blood 5.6 (H) 3.5 - 5.0 mmol/L [facility] Comment: Please note: Patients with WBC >100,000 may have falsely elevated Potassium levels. Contact the Clinical Chemistry L aboratory if there are any questions. ICa Whole Blood 1.15 1.15 - 1.33 mmol/L [facility] Comment: Note: ??Total bilirubin higher than 20 m g/dL may lead to falsely low ionized calcium. CL Whole Blood 106 98 - 107 mmol/L [facility] Gluc Whole Bld 181 65 - 199 mg/dL [facility] Comment: Diabetes: >=200 mg/dL plus symp toms. Lactate WB 1.6 0.5 - 2.2 mmol/L [facility] Specimen Anatomical Collection Method Collection Time Receive d Time (Source) Location / / Volume Laterality Blood 01/21/2022 11:37 01/21/2022 AM EST 11:37 AM EST Danny Jewell MD CHEMISTRY ORDERABLES Performing Organization Address City/State/ZIP [place] [address] APTT (01/21/2022 11:30 AM EST) P athologist Signature PTT 31 25 - 37 sec [facility] Comment: OR Result called by [...] Vasquez MD HEMATOLOGY ORDERABLES Performing Organization Address City/[facility]/[place] [address] (ABNORMAL) Prothrombin Time (01/21/2022 11:30 AM EST) P athologist Signature PT 16.0 (H) 9.4 - 12.5 [facility]ATORY Comment: OR Result called by ?? SALVLT OR Result s read back by: ? Tete Sanchez at 2022-01-21 12:02:10 INR 1.4 [facility] Comment: OR Result called [...] Organization Address City/State/ZIP [place] [address] (ABNORMAL) Hemogram (01/21/2022 11:30 AM EST) P athologist Signature WBC 4.6 4.0 - 9.5 [facility] x10(3)/[facility] LABORATORY RBC 2.57 (L) 4.58 - [facility] 5.54 [facility] x10(6)/[facility] LABORATORY Hemoglobin 8.1 (L) 13.7 - [facility] 16.5 g/dL [facility] Hematocrit 23.1 (L) 40.5 - [facility] 48.5 % [facility] Comment: This result has been called to JOSE MANUEL KEY by Jim Montesinos on 01 21 2022 at 1147, and has been read back. MCV 89.9 82.9 - 93.1 fL [facility] MCH 31.5 27.5 - 32.1 pg [facility] MCHC 35.1 32.0 - 35.7 g/dL [facility] Platelets 105 (L) 145 - 357 x10(3)/[facility] LABORATORY RDWSD 42.2 36.0 - 45.0 fL [facility] RDWCV 13.0 11.4 - 13.8 % [facility] MPV 9.6 7.6 - 12.9 [facility] LABORATORY nRBC % Auto 0.0 % [facility] nRBC Abs Auto 0.000 0.000 - 0.000 x10(3)/[facility] LABORATORY Specimen Anatomical Collection Method Collection Time Receive d Time (Source) Location / / Volume Laterality Blood 01/21/2022 11:30 01/21/2022 AM EST 11:42 AM EST Resulting Agency Comment Spec In Lab Donnie Vasquez MD HEMATOLOGY ORDERABLES Performing Organization Address City/State/ZIP [place] [address] Platelet count (01/21/2022 10:50 AM EST) P athologist Signature Platelets 148 145 - 357 [facility] x10(3)/[facility] LABORATORY Plat Immature 2.4 0.0 - 7.4 [facility] % % [facility] Comment: Limitation of the Immature Platelet Frac tion (IPF)-May be less reliable when the platelet count is less than 72s161/u L due to statistical imprecision. The IPF [...] in a decreased state of production. References: [employer] The Clinical Value of the Immature Platelet Fraction (IPF) in Cell Recovery Document Number [id number] 04/2011 [employer] The Role of the Imm ature Platelet Fraction (IPF) in the Differential Diagnosis of Thrombocytopen ia, Document [id number] V05 P003/29 Specimen Anatomical Collection Method Collection Time Receive d Time (Source) Location / / Volume Laterality Blood 01/21/2022 10:50 01/21/2022 AM EST 10:59 AM EST Resulting Agency Comment Spec In Lab Danny Jewell MD HEMATOLOGY ORDERABLES Performing Organization Address City/State/ZIP [place] [address] (ABNORMAL) Hemoglobin and Hematocrit, blood (01/21/2022 10:50 AM EST) P athologist Signature Hemoglobin 8.0 (L) 13.7 - 16.5 [facility] g/dL [facility] Comment: This result has been called to ANASTASIA ARCINIEGA by Jim Montesinos on 01 21 2022 at 1105, and has been read back. Hematocrit 22.3 (L) 40.5 - 48.5 % [facility] Comment: This result has been called to ANASTASIA ARCINIEGA by Jim Montesinos on 01 21 2022 at 1105, and has been read back. Specimen Anatomical Collection Method Collection Time Receive d Time (Source) Location / / Volume Laterality Blood 01/21/2022 10:50 01/21/2022 AM EST 10:59 AM EST Resulting Agency Comment Spec In Lab Danny Jewell MD HEMATOLOGY ORDERABLES Performing Organization Address City/[facility]/[place] [address] Fibrinogen (01/21/2022 10:50 AM EST) P athologist Signature Fibrinogen 209 200 - 393 [facility] Comment: OR Result called [...] Jewell MD HEMATOLOGY ORDERABLES Performing Organization Address City/[facility]/[place] [address] (ABNORMAL) BLOOD GAS 2 ARTERIAL (01/21/2022 10:45 AM EST) Analysis Performed At Patho logist Time Signature pH Art 7.38 7.35 - [facility] 7.45 [facility] pCO2 Art 47 (H) 35 - 45 [facility] mmHg [facility] pO2 Art 468 (H) 85 - 104 [facility] mmHg [facility] HCO3 Art 27.4 (H) 20.0 - [facility] 26.0 [facility] mmol/L [facility] BE Art 2.3 -3.0 - 3.0 [facility] mmol/L [facility] Hgb Blood Gas 8.5 (L) 13.7 - [facility] 16.5 g/dL [facility] O2HB Art 99.0 (H) 94.0 - [facility] 97.0 % [facility] COHB Art 0.1 % [facility] Comment: Nonsmokers: 0.5-1.5% COHB Smokers: Variable, but usually less than 10% Toxic: 20-30% COHB Lethal: Greater than 60% COHB METHB Art 0.3 <=1.5 % [facility] Na Whole Blood 132 (L) 135 - 145 mmol/L [facility] K Whole Blood 6.1 (Critical) 3.5 - 5.0 mmol/L [facility] Comment: Critical notified to Donnie Vasquez MD electrical instrument maker immediately following run time. Please note: Patients with WBC >100,000 may have falsely elevated Potassium levels. Contact the Clinical Chemistry L aboratory if there are any questions. ICa Whole Blood 0.96 (L) 1.15 - 1.33 mmol/L [facility] Comment: Note: ??Total bilirubin higher than 20 m g/dL may lead to falsely low ionized calcium. CL Whole Blood 101 98 - 107 mmol/L [facility] Gluc Whole Bld 217 (H) 65 - 199 mg/dL [facility] Comment: Diabetes: >=200 mg/dL plus symp toms. Lactate WB 0.8 0.5 - 2.2 mmol/L [facility] Specimen Anatomical Collection Method Collection Time Receive d Time (Source) Location / / Volume Laterality Blood 01/21/2022 10:45 01/21/2022 AM EST 10:45 AM EST Danny Jewell MD CHEMISTRY ORDERABLES Performing Organization Address City/State/[place] [address] (ABNORMAL) BLOOD GAS 2 ARTERIAL (01/21/2022 10:19 AM EST) Analysis Performed At Patho logist Time Signature pH Art 7.32 (L) 7.35 - [facility] 7.45 [facility] pCO2 Art 48 (H) 35 - 45 [facility]ORY pO2 Art 469 (H) 85 - 104 [facility]ORY HCO3 Art 24.4 20.0 - [facility] 26.0 [facility] BE Art -1.7 -3.0 - 3.0 [facility] mmol/L [facility] Hgb Blood Gas 8.6 (L) 13.7 - [facility] 16.5 g/dL [facility] O2HB Art 99.3 (H) 94.0 - [facility] 97.0 % [facility] COHB Art 0.2 % [facility] Comment: Nonsmokers: 0.5-1.5% COHB Smokers: Variable, but usually less than 10% Toxic: 20-30% COHB Lethal: Greater than 60% COHB METHB Art 0.3 <=1.5 % [facility] Na Whole Blood 127 (L) 135 - 145 mmol/L [facility] K Whole Blood 6.4 (Critical) 3.5 - 5.0 mmol/L M [facility] Comment: Critical notified to Donnie Vasquez MD y electrical instrument maker immediately following run time. Please note: Patients with WBC >100,000 may have falsely elevated Potassium levels. Contact the Clinical Chemistry L aboratory if there are any questions. ICa Whole Blood 1.00 (L) 1.15 - 1.33 mmol/L [facility] Comment: Note: ??Total bilirubin higher than 20 m g/dL may lead to falsely low ionized calcium. CL Whole Blood 101 98 - 107 mmol/L [facility] Gluc Whole Bld 215 (H) 65 - 199 mg/dL [facility] Comment: Diabetes: >=200 mg/dL plus symp toms. Lactate WB 0.9 0.5 - 2.2 mmol/L [facility] Specimen Anatomical Collection Method Collection Time Receive d Time (Source) Location / / Volume Laterality Blood 01/21/2022 10:19 01/21/2022 AM EST 10:19 AM EST Danny Jewell MD CHEMISTRY ORDERABLES Performing Organization Address City/State/ZIP [place] [address] (ABNORMAL) BLOOD GAS 2 VENOUS (01/21/2022 9:52 AM EST) P athologist Signature pH Ryan 7.33 7.32 - [facility] 7.42 [facility] pCO2 Ryan 48 41 - 51 [facility] LAB[facility]ATORY pO2 Ryan 43 (H) 25 - 40 [facility] LABORATORY HCO3 Ryan 24.6 mmol/L [facility] BE Ryan -1.3 mmol/L [facility] Hgb Blood Gas 7.4 (L) 13.7 - [facility] 16.5 g/dL [facility] O2HB Ryan 75.4 % [facility] COHB Ryan 0.9 % [facility] Comment: Nonsmokers: 0.5-1.5% COHB Smokers: Variable, but usually less than 10% Toxic: 20-30% COHB Lethal: Greater than 60% COHB METHB Ryan 0.0 <=1.5 % [facility] Na Whole Blood 128 (L) 135 - 145 mmol/L [facility] K Whole Blood 4.7 3.5 - 5.0 mmol/L [facility] Comment: Please note: Patients with WBC >100,000 may have falsely elevated Potassium levels. Contact the Clinical Chemistry L aboratory if there are any questions. ICa Whole Blood 0.89 (Critical) 1.15 - 1.33 mmol/L [facility] Comment: Critical notified to Donnie Vasquez MD b y electrical instrument maker immediately following run time. Note: ??Total bilirubin higher than 20 m g/dL may lead to falsely low ionized calcium. CL Whole Blood 104 98 - 107 mmol/L [facility] Gluc Whole Bld 152 65 - 199 mg/dL [facility] Comment: Diabetes: >=200 mg/dL plus symp toms Lactate WB 1.0 0.5 - 2.2 mmol/L [facility] BGas Source Venous [facility] Specimen Anatomical Collection Method Collection Time Receive d Time (Source) Location / / Volume Laterality Blood 01/21/2022 9:52 AM 9:52 EST AM EST Danny Jewell MD CHEMISTRY ORDERABLES Performing Organization Address City/State/ZIP [place] [address] (ABNORMAL) BLOOD GAS 2 ARTERIAL (01/21/2022 9:49 AM EST) Analysis Performed At Patho logist Time Signature pH Art 7.38 7.35 - [facility] 7.45 [facility] pCO2 Art 41 35 - 45 [facility] mmHg [facility] pO2 Art 486 (H) 85 - 104 [facility] mmHg [facility] HCO3 Art 23.8 20.0 - [facility] 26.0 [facility] mmol/L [facility] BE Art -1.3 -3.0 - 3.0 [facility] mmol/L [facility] Hgb Blood Gas 7.8 (L) 13.7 - [facility] 16.5 g/dL [facility] O2HB Art 98.6 (H) 94.0 - [facility] 97.0 % [facility] COHB Art 0.3 % [facility] Comment: Nonsmokers: 0.5-1.5% COHB Smokers: Variable, but usually less than 10% Toxic: 20-30% COHB Lethal: Greater than 60% COHB METHB Art 0.3 <=1.5 % [facility] Na Whole Blood 129 (L) 135 - 145 mmol/L [facility] K Whole Blood 5.1 (H) 3.5 - 5.0 mmol/L [facility] Comment: Please note: Patients with WBC >100,000 may have falsely elevated Potassium levels. Contact the Clinical Chemistry L aboratory if there are any questions. ICa Whole Blood 0.97 (L) 1.15 - 1.33 mmol/L [facility] Comment: Note: ??Total bilirubin higher than 20 m g/dL may lead to falsely low ionized calcium. CL Whole Blood 102 98 - 107 mmol/L [facility] Gluc Whole Bld 159 65 - 199 mg/dL [facility] Comment: Diabetes: >=200 mg/dL plus symp toms. Lactate WB 1.0 0.5 - 2.2 mmol/L [facility] Specimen Anatomical Collection Method Collection Time Receive d Time (Source) Location / / Volume Laterality Blood 01/21/2022 9:49 AM 9:49 EST AM EST Danny Jewell MD CHEMISTRY ORDERABLES Performing Organization Address City/State/ZIP [place] [address] (ABNORMAL) BLOOD GAS 2 ARTERIAL (01/21/2022 8:20 AM EST) Analysis Performed At Patho logist Time Signature pH Art 7.42 7.35 - [facility] 7.45 [facility] pCO2 Art 41 35 - 45 [facility] mmHg [facility] pO2 Art 322 (H) 85 - 104 [facility] LABORATORY HCO3 Art 25.6 20.0 - [facility] 26.0 [facility] mmol/L [facility] LAB[facility] BE Art 1.1 -3.0 - 3.0 [facility] mmol/L [facility] Hgb Blood Gas 11.0 (L) 13.7 - [facility] 16.5 g/dL [facility] O2HB Art 98.4 (H) 94.0 - [facility] 97.0 % [facility] COHB Art 0.3 % [facility] Comment: Nonsmokers: 0.5-1.5% COHB Smokers: Variable, but usually less than 10% Toxic: 20-30% COHB Lethal: Greater than 60% COHB METHB Art 0.3 <=1.5 % [facility] Na Whole Blood 139 135 - 145 mmol/L [facility] K Whole Blood 4.0 3.5 - 5.0 mmol/L [facility] Comment: Please note: Patients with WBC >100,000 may have falsely elevated Potassium levels. Contact the Clinical Chemistry L aboratory if there are any questions. ICa Whole Blood 1.13 (L) 1.15 - 1.33 mmol/L [facility] Comment: Note: ??Total bilirubin higher than 20 m g/dL may lead to falsely low ionized calcium. CL Whole Blood 105 98 - 107 mmol/L [facility] Gluc Whole Bld 129 65 - 199 mg/dL [facility] Comment: Diabetes: >=200 mg/dL plus symp toms. Lactate WB 1.1 0.5 - 2.2 mmol/L [facility] Specimen Anatomical Collection Method Collection Time Receive d Time (Source) Location / / Volume Laterality Blood 01/21/2022 8:20 AM 8:20 EST AM EST Danny Jewell MD CHEMISTRY ORDERABLES Performing Organization Address City/State/ZIP [place] [address] COVID-19 PCR (01/21/2022 7:35 AM EST) [facility] Method Time Signature SARS-CoV-2 Not Detected Not Detected GABRIELLE RNA PCR [facility] Comment: This result should be interpreted in com bination with the clinical observations, patient history and epidem iological information. For testing of asymptomatic individuals, assay performa nce characteristics and clinical utility have not been evaluated. Testing for SARS-CoV-2 (Severe acute respiratory syndrome coronavirus 2, form erly known as 2018 novel coronavirus or 2018-nCoV) to aid in the diagnosis of CO VID-19 is performed using the Simplexa COVID-19 Direct Assay by [employer] as authorized by the FDA issued Emergency [...] Department of Pathology and Laboratory Medicine at [facility], certified under the Clinical Laboratory Improvement [...] clinical management guidance information are available at [facility] CDC Coronavirus Disease 2019 (COVID-19) webpage under Information fo r Healthcare Professionals (https://www.cdc.gov/coronavirus/2019-nc ov/hcp/index.html). Additional information about this and ot her EUA tests can be found in provider and patient fact sheets at the following FDA website: https://www.fda.gov/medical-devices/tmuffuwlkml-uyyguem-8740-zygsy-34-pvhatieal- myc-vxnbozsvkmgkvx-ahgmzms-devices/fdxfa-eepzoetoqov-lyeh SARS-CoV-2 Source DEVELOPMENTAL THERAPIST Swab [facility] Specimen (Source) Anatomical Collection Method Collection Time Re ceived Time Location / / Volume Laterality Nasopharyngeal Swab 01/21/2022 7:35 01/21 AM EST 9:15 AM EST Comment: Symptoms->Surveillance Resulting Agency Comment Spec In Lab Danny Jewell MD MICROBIOLOGY - GENERAL ORDER CATHY Performing Organization Address City/State/ZIP Code Phon e Number [place] [id number] Transesophageal Echo/OR (01/21/2022 7:18 AM EST) Anatomical Region Laterality Modality Other Specimen (Source) Anatomical Collection Method Collection Time Re ceived Time Location / / Volume Laterality 01/21/2022 7:18 AM EST Narrative 01/21/2022 1:18 PM EST ? Version: 1 + + ? + + : ?: ? : ? : + + ? [facility] ?: ? : ? : ? : ? : ? : ? [address] ? : ? : ? + + ?[place] [address] ?Voice: ?Fax: Name: VINOD OCHOA ?Study Date: 01/21/2022, 7: 18 AM ?Patient Location: OR^OR16^A : 1955 (MM/DD/YYYY) ? Age: 66 Years Gender: Male Ordering Physician: [id number]^BEST^DANNY^N^^^^^EPIC^^^^PRO VID Referring Physician: [id number]^BEST^DANNY^N^^^^^EPIC^^^^PRO VID Reason For Study: Cardiac disease ? [...] + : : : : + + [facility] : : : : : : [address] : : + + [place] [id number] Voice: Fax: Name: VINOD OCHOA Study Date: , 7: 18 AM Patient Location: OR^OR1 6^A : 1955 (MM/DD/YYYY) Age: 66 Years Gender: Male Ordering Physician: [id number]^BEST^ANNE-MARIE^^^^^EPIC^^^^PRO VID Referring Physician: MORRIS^^^^^EPIC^^^^PRO VID Reason For Study: Cardiac disease Conclusions [...] ORDERABLES Prepare RBC (01/21/2022 6:35 AM EST) P athologist Signature Dispensed? Yes [facility] Specimen Anatomical Collection Method Collection Time Receive d Time (Source) Location / / Volume Laterality Blood 01/21/2022 6:35 AM 2 6:31 EST AM EST Danny Jewell MD BLOOD BANK ORDERABLES Performing Organization Address City/State/ZIP [place] [address] POCT Glucose (01/21/2022 6:26 AM EST) P athologist Signature POC Glucose 117 65 - 199 [facility] mg/dL [facility] Comment: Supplemental ranges: <140 mg/dL before meals <180 mg/dL all other times of the day Specimen Anatomical Collection Method Collection Time Receive d Time (Source) Location / / Volume Laterality Blood 01/21/2022 6:26 AM 2 6:26 EST AM EST Danny Jewell MD POINT OF CARE TEST ORDERABLE S Performing Organization Address City/State/ZIP Code Phon [place] [address] documented in this encounter Visit Diagnoses Diagnosis Coronary artery disease involving sioux coronary artery of sioux heart, unspecified whether angina present S/P CABG x 4 Postsurgical aortocoronary bypass status CAD (coronary artery disease) Coronary atherosclerosis of unspecified type of vessel, sioux or graft Vocal cord paralysis Paralysis of vocal cords or larynx, unsp ecified documented in this encounter Admitting Diagnoses Diagnosis CAD (coronary artery disease) Coronary atherosclerosis of unspecified type of vessel, sioux or graft documented in this encounter Administered [...] when other ordered pain medications are indicated., Routine, Is ketorolac (Toradol) IV contraindicated? Yes, Can this patient tolerate oral medications or suppositories? No Given 01/21/2022 11:34 PM EST 1,000 mg [...] other ordered pain medications are indicated. , Routine, Is ketorolac (Toradol) IV contraindicated? Yes, Can this patient tolerate oral medications or suppositories? No Given 01/22/2022 10:10 PM EST 1,000 mg [...] other ordered pain medications are indicated. , Routine, Is ketorolac (Toradol) IV contraindicated? Yes, Can this patient tolerate oral medications or suppositories? No Given 01/25/2022 5:36 AM EST 1,000 mg [...] If unable to take PO, may give OR, Routine Given 01/30/2022 8:51 AM EDT 81 mg Given 01/29/2022 8:07 AM EDT 81 mg aspirin suppository 300 mg Given 01/23/2022 12:32 PM EST 300 mg 300 mg, Rectal, DAILY, First dose on Thu01/21/22 at 1330, Until Discontinued, Start on Post-Op Day 0, please give within 6 hours upon arrival to Unit. Give OR if unable to take PO, Routine Given [...] dose on Thu01/21/22 at 1330, Until Discontinued, Gregory teeth, Routine Given 01/25/2022 8:39 PM EST [...] restart at 50% of previous rate. Call storehouse clerk if goal not achieved at maximum rate. [...] Thu01/21/22 at 1235, Until Thu01/27/22 at 1429, Pain, Maximum dose 300 mcg over one hour, Routine Bolus from Infusion 01/22/2022 10:35 PM EST 25 mcg Bolus from Infusion 01/22/2022 7:31 PM EST 50 mcg fentaNYL (PF) (50 Rate/Dose Verify 01/24/2022 2:30 PM EST 25 mcg/hr 0.5 mL/hr mcg/mL) infusion syringe 50 mL 0-100 mcg/hr (0-2 mL/hr), Intravenous, CONTINUOUS, Starting on Thu01/21/22 at 1330, Until Thu01/25/22 at 1039, Titrate to patient comfort, pain [...] 3 TIMES DAILY, First dose on Myrna 22 at 0845, Until Discontinued Given 01/23/2022 8:45 [...] Intravenous, EVERY 4 HOURS PRN, Starting on Thu01/27/22 at 0637, Until Myrna [...] 2.0 L/min/M2. Maximum volume 2 L. Call storehouse clerk for additional fluid orders: pager #[phone]. Rate/Dose Verify 01/23/2022 4:00 AM EST 50 [...] 2 g, Intravenous, ONCE, 1 dose, On Myrna 01/23/22 at 0730, Administer over 120 Minutes melatonin [...] TIMES DAILY WITH MEALS, First dose on Myrna 01/30/22 at 0915, Until Discontinued, Routine Given 01/30/2022 [...] 1358, Until Thu01/21/22 at 1421, Letty Alexander: cabinet override milrinone (Primacor) Rate/Dose Verify 01/24/2022 8:00 [...] CONTINUOUS, Starting on Thu01/21/22 at 1330, Until Thu01/25/22 at 1039, Titrate to keep systolic blood pressure greater than 90 mmHg. Start at 2 mcg/minute and adjust by 2 mcg/min every 3 minutes. Dose not to exceed 30 mcg/minute. Begin if PHENYLephrine and/or vasopressin ineffective. Call pager # [phone] if initiated., Routine Rate/Dose Change 01/23/2022 1:47 [...] 2.0 L/min/M2. Maximum volume 2 L. Call storehouse clerk for additional fluid orders: pager #[phone]. New Bag 01/21/2022 12:15 PM EST 1 mL/hr 1 mL/hr sodium chloride 0.9% Rate/Dose Verify 01/27/2022 6:00 AM 30 mL/hr 3 0 mL/hr infusion EDT 10-30 mL/hr, Intravenous, DAILY PRN, Starting on Thu01/21/22 at 1235, Until Myrna 01/30/22 at 0803, Side port TKO rate, per [facility] nursing protocol. Rate/Dose Verify 01/27/2022 4:00 AM EDT 30 mL/hr 30 mL/hr Rate/Dose Verify 01/27/2022 2:00 AM EDT 30 mL/hr 30 mL/hr sodium chloride 0.9% Rate/Dose Verify 01/27/2022 6:00 AM 30 mL/hr 3 0 mL/hr infusion EDT 10-30 mL/hr, Intravenous, DAILY PRN, Starting on Thu01/21/22 at 1235, Until Myrna 01/30/22 at 0803, Side port TKO rate, per [facility] nrusing protocol. Rate/Dose Verify 01/27/2022 4:00 AM EDT 30 mL/hr 30 mL/hr Rate/Dose Verify 01/27/2022 2:00 AM EDT 30 mL/hr 30 mL/hr vasopressin (Vasostrict) 20 unit/100 mL (0.2 unit/mL) infusion 1 dose, Starting on Thu01/21/22 at 1338, Until Thu01/21/22 at 1345, Emely Quintanilla.: cabinet override vasopressin 20 units in Rate/Dose Verify 01/23/2022 2:00 0.01 Units/m in 3 mL/hr sodium chloride 0.9% 100 AM EST mL infusion 0.04-0.1 Units/min (12-30 mL/hr), Intravenous, CONTINUOUS, Starting on Thu01/21/22 at 2115, Until 01/25/22 at 1039, Titrate [...] Dereje Chong RN)2128 (Given - Provider: Amberly Toth, ESTEFANIA) 0600 (Not Given - Provider: Elizabeth [...] 0826 (Given - Provider: Berenice Salazar RN) 10 mg, Oral, DAILY, First dose (after la st modification) on Thu01/27/22 at 0900, Until Discontinued, Routine aspirin chewable tablet 81 mg(Linked Group 1) 0807 (Gi ryan - Provider: Dereje Chong RN) 0851 (Given - Provider: Plii Yan RN) 0826 (Give n - Provider: Berenice Salazar, ESTEFANIA) 81 mg, Oral, DAILY, First dose on 07/07 at 1330, Until Discontinued, Start on Post-Op Day 0, please give within 6 hours upon arrival to Unit. If unable to take PO, may give OR, Routine aspirin suppository 300 mg(Linked Group 1) 0807 (See A lternative - Provider: Dereje Chong RN) 0851 (See Alternative - Provider: Pili Yan RN) 0826 (See Alternative - Provider: Berenice Salazar, ESTEFANIA) 300 mg, Rectal, DAILY, First dose on Thu01/21/22 at 1330, Until Discontinued, Start on Post-Op Day 0, please give within 6 hours upon arrival to Unit. Give OR if unable to take PO, Routine atorvastatin (Lipitor) tablet 80 mg 1627 (Given - Prov ider: Yuko Schmidt, ESTEFANIA) 1640 (Given - Provider: Pili Yan RN) 80 mg, Oral, EVERY EVENING, First dose o n Thu01/21/22 at 1700, Until Discontinued, Routine cloNIDine (Catapres) tablet 0.1 mg (CANCELED) 08 (Gi ryan - Provider: Dereje Chong RN)2010 (Given - Provider: Elizabeth Leija, ESTEFANIA) 0.1 mg, Oral, 2 TIMES DAILY, First dose on Thu01/27/22 at 0900, Until Discontinued, Routine cloNIDine (Catapres) tablet 0.2 mg 0851 (Given - Provider: Pili Yan RN)204 (Given - Provider: Elizabeth Leija RN) 0826 (Given - Provider: Berenice Salazar, ESTEFANIA) 0.2 mg, Oral, 2 TIMES DAILY, First dose (after last modification) on Thu01/30/22 at 0900, Until Discontinued, Routine furosemide (Lasix) tablet 20 mg 08 (Given - Provider: Dereje Chong RN) 0852 (Given - Provider: Pili Yan, ESTEFANIA) 08 (Given - Provider: Berenice Salazar, ESTEFANIA) 20 mg, Oral, DAILY, First dose on Thu at 0900, Until Discontinued, Routine heparin (porcine) (5,000 units/1 mL) sub cutaneous injection 5,000 Units (CANCELED) 806 (Given - Provider: Dereje Chong RN)2010 (Given - Provider: Elizabeth Leija RN) 5,000 Units, Subcutaneous, EVERY 12 HOUR S SCHEDULED (2 times per day), First dose on Thu01/26/22 at 1045, Until Discontinued, Routine hydrALAZINE (Apresoline) tablet 50 mg (CANCELED) 08 (Given - Provider: Dereje Chong RN)142 (Given - Provider: Dereje Chong RN)2010 (Given - Provider: Elizabeth Leija, ESTEFANIA) 50 [...] Routine metoprolol tartrate (Lopressor) tablet 100 mg 0807 (Gi ryan - Provider: Dereje Chong RN)2010 [...] Routine pantoprazole EC (Protonix) tablet 40 mg 0807 (See Alte rnative - Provider: Dereje Chong RN)0812 (Given - Provider: Dereje Chong RN) 0852 (Given - Provider: Pili Yan RN) 0826 (Given - Provider: Berenice Salazar, ESTEFANIA) 40 mg, Oral, DAILY, First dose [...] ER (K-Dur/Klor-Con) tablet 20 mEq ( COMPLETED) 08 (Given - Provider: Dereje Chong, RN) 20 [...] chloride ER (K-Dur/Klor-Con) tablet 40 mEq (COMPLETED) 07 (Given - Provider: Berenice Salazar, ESTEFANIA) 40 mEq, Oral, ONCE, 1 dose, On Thu01/31/22 at 0800, Routine senna-docusate (Pericolace) 8.6-50 mg per tablet 2 tab let 2010 (Given - Provider: Elizabeth Leija, ESTEFANIA) 2100 (Not Given - Provider: Elizabeth Leija, ESTEFANIA - Reason: Patient/family refused) 2 tablet, Oral, DAILY, First dose on Thu01/22/22 at 2100, Until Discontinued, Post-op day 1, Routine sodium chloride 0.9 % (flush) (BD PosiFlush Normal Sung ine 0.9) flush 5 mL 0218 (Given - Provider: Vivian Tyson, ESTEFANIA)0617 (Given - Provider: Vivian Tyson RN)1430 (Given - Provider: Dereje Chong, ESTEFANIA)2011 (Given - Provider: Elizabeth Leija, ESTEFANIA) 0715 (Not Given - Provider: Elizabeth ayoub, ESTEFANIA - Reason: Patient/family refused)1515 (Given - Provider: Pili Yan, ESTEFANIA)2315 (Not Given - Provider: Elizabeth Leija RN - Reason: Patient/family refused) 0744 (Given - Provider: Berenice Salaazr RN)1515 (Due) 5 mL, Intravenous, EVERY 8 [...] Start ing on 01/26/22 at 0936, Until Thu01/31/22 at [...] (CANC ELED) 0018 (Given - Provider: Elizabeth Leija [...] If unable to take PO, may give OR
Routine Or aspirin suppository 300 mgJump to med 300 mg, Rectal, DAILY, First dose on Thu01/21/22 at 1330, Until Discontinued
Start on Post-Op Day 0, please give within 6 hours upon arrival to Unit. Give OR if unable to take PO
Routine Group [...] specifically directed to do so by yoni steele. Per Blood Glucose Monitoring Policy, re-check a [...] EVERY 30 MIN PRN, S tarting on 3/13/22 at 0936, Until Thu01/31/22 at 1728, Low [...]
Routine documented in this encounter Care Teams Legal Document Assistant Relationship Specialty Start Date End Date Vladimir Muñoz DO PCP - General Family Medicine 01/19/[address] [place] [address] documented as of this encounter
--- OUTSIDE RECORDS SUMMARY | 2022-10-07 08:52 | XMS_ITS | Encounter Summary ---
:1955 Author Organization [facility] [place] [address] Care Team Providers Name Role Phone Vladimir Muñoz DO Primary Care Provider Encounter Details Date Type Department Care Team Description 01/29/2022 Orders Only Cardiac Surgery Patricia ASCVD (arteriosclerotic [facility] RUBIO Jimenez cardiovascular disease) [facility] [id number] CARDIAC SURGERY [phone] [place], [place] [address] Social History Tobacco Use Types [...] 03/25/2022 Anesthesia Event Surgery Catrachita Baez MD [facility] ANESTHESIOLOGY [place], [place] [address] (Wo rk) 12/15/2022 Office Visit Cardiology Damián Hart MD [facility] er [place], [place] [address] (Wo rk) 03/25/2050 Hospital Encounter Surgery Citlalli Richardson MD Vocal cord paralysis [facility] OTOL[facility] [place], [place] [address] (Wo rk) documented as of [...] 442 ms MUSE SYSTEM (Bezet) Calculated P [place] 56 degrees MUSE SYSTEM Calculated R [place] 40 degrees MUSE SYSTEM Calculated T [place] -18 degrees MUSE SYSTEM INTERPRETATION Normal sinus rhythm MUSE SYSTEM T wave abnormality, consider inferolateral ischemia Abnormal ECG When compared with ECG of 21-JAN-2022 12:37, Criteria for Inferior infarct are no longer Present ST no longer elevated in Lateral leads T wave inversion now evident in Inferior leads T wave inversion now evident in Lateral leads Confirmed by MD Zhang Danette ([id number]) on 03/06/2022 5:33:51 PM Specimen Anatomical Collection Method Collection Time Receive d Time (Source) Location / / Volume Laterality 03/06/2022 2:16 PM 2 5:33 EDT PM EDT Barbara Gomez APRN ECG ORDERABLES Performing Organization Address City/State/ZIP Code [...] who have questions please contact the health chronic care nurse that requested your imaging first. ? Narrative [...] ho have questions please contact the health chronic care nurse that requested your imaging first. Barbara Gomez RUBIO IMG DX ORDERABLES documented in this encounter Visit Diagnoses Diagnosis ASCVD (arteriosclerotic cardiovascular d isease) Unspecified cardiovascular disease Vocal cord paralysis Paralysis of vocal cords or larynx, unsp ecified ASCVD (arteriosclerotic cardiovascular d isease) Unspecified cardiovascular disease documented in this encounter Care Teams Customer Contact Sales Associate Relationship Specialty Start Date End Date Vladimir Muñoz DO PCP - General Family Medicine 01/19/[address] [place] [address] documented as of this encounter
--- OUTSIDE RECORDS SUMMARY | 2022-10-07 08:53 | XMS_ITS | Encounter Summary ---
:1955 Author Organization [facility] [place] [address] Care Team Providers Name Role Phone Vladimir Muñoz DO Primary Care Provider Encounter Details Date Type Department Care Team Description 01/17/2022 Hospital Encounter XRay at [facility] Antonio Coronary artery [address] Bess MD disease involving [place], [place] [facility] [place] coronary [id number] [facility] [place] [phone] CARDIOTHORACIC heart, unspec ified SURGERY whether [place]ina [place] present [id number] Social History Tobacco Use Types Packs/Day Years [...] 03/25/2022 Anesthesia Event Surgery Catrachita Baez MD [facility] ANESTHESIOLOGY [place], [place] [address] (Wo rk) 12/15/2022 Office Visit Cardiology Damián Hart MD [facility] [place], [place] [address] ([facility]) 03/25/2050 Hospital Encounter Surgery Citlalli Richardson MD Vocal cord paralysis [facility] OTOLARYNGOLOGY [place], [place] [address] ([facility]) documented as of this encounter Procedures Procedure Name Priority Date/Time Associated Diagnosis Comme nts XR CHEST PA AND Routine 01/17/2022 4:49 PM Coronary artery Res ults for this LATERAL EST disease involving procedure are in [place] coronary the results artery of [place] section. heart, unspecified whether angina present documented [...] who have questions please contact the health resident care aid that requested your imaging first. ? Electronically signed by: Nara Costello MD, [facility] ([phone]), at 01/17/2022 5:00 PM Narrative 01/17/2022 5:00 [...] original. EXAMINATION: XR CHEST PA AND LATERAL ([employer]) CLINICAL HISTORY: coronary artery diseas e TECHNIQUE: [...] ho have questions please contact the health resident care aid that requested your imaging first. Electronically signed by: Nara Costello MD, [facility] ([phone]), at 01/17/2022 5:00 PM Danny Antonio MD IMG DX ORDERABLES documented in this encounter Visit Diagnoses Diagnosis Coronary artery disease involving [place] coronary artery of [place] heart, unspecified whether angina present Vocal cord paralysis Paralysis of vocal cords or larynx, unsp ecified documented in this encounter Care Teams Food Service Steward Relationship Specialty Start Date End Date Vladimir Muñoz, PCP - General Family Medicine 01/19/[address] [place] [id number] documented as of this encounter
--- OUTSIDE RECORDS SUMMARY | 2022-10-07 08:53 | XMS_ITS | Encounter Summary ---
:1955 Author Organization [facility] Address [facility] [address] [place] [address] Care Team Providers Name Role Phone Vladimir Muñoz DO Primary Care Provider Encounter Details Date Type Department Care Team Description 01/17/2022 Office Visit Cardiac Surgery at AntonioDanny sheriff artery [facility] MD Bess disease involving [facility] coronary artery [facility], [place], [place] CARDIOTHORACIC unspecified w hether [phone] SURGERY angina present [phone] [place], [place] [address] Social History Tobacco Use Types [...] 4:00 PM EST To: MD Vladimir Barboza, Re: Burton Mcnair ( 1955) We had [...] He has treated hypertension, he is a lha-sejvwnj-ybwurmerw diabetic. He has had no known previous [...] office. Best personal regards, Danny Antonio MD [phone] In aggregate 50 minutes were spent evaluating [...] 03/25/2022 Anesthesia Event Surgery Catrachita Baez MD [facility] ANESTHESIOLOGY [place], [place] [address] (Wo rk) 12/15/2022 Office Visit Cardiology Damián Hart MD [facility] [place], [place] [address] (Wo rk) 03/25/2050 Hospital Encounter Surgery Citlalli Richardson MD Vocal cord paralysis [facility] OTOLARYNGOLOGY [place], [place] [address] (Wo rk) documented as of this encounter Procedures Procedure Name Priority Date/Time Associated Diagnosis Comme nts URINE HOLD Routine 01/17/2022 4:37 PM Results f or this EST procedure are i n the results section. HC UA W/OUT Routine 01/17/2022 4:37 PM Coronary artery Result s for this MICROSCOPIC EST disease involving procedure are in [place] coronary the results artery of [place] section. heart, unspecified whether angina present TYPE AND SCREEN Routine 01/17/2022 4:36 PM Result s for this VALIDITY EST procedure are i n the results section. ABORH RECHECK STATUS Routine 01/17/2022 4:36 PM R esults for this EST procedure are i n the results section. HEMOGRAM Routine 01/17/2022 4:36 PM Coronary artery Result s for this EST disease involving procedure are in [place] coronary the results artery of [place] section. heart, unspecified whether angina present DIFFERENTIAL, Routine 01/17/2022 4:36 PM Coronary artery Resul ts for this AUTOMATED EST disease involving procedure are in [place] coronary the results artery of [place] section. heart, unspecified whether angina present HC ANTIBODY Routine 01/17/2022 4:36 PM Coronary artery DETECTION,CAPTURE-R EST disease involving [place] coronary artery of [place] heart, unspecified whether angina present ABO/RH TYPING Routine 01/17/2022 4:36 PM Coronary artery Resul ts for this EST disease involving procedure are in [place] coronary the results artery of [place] section. heart, unspecified whether angina present HC PROTHROMBIN TIME Routine 01/17/2022 4:36 PM Coronary artery Results for this EST disease involving procedure are in [place] coronary the results artery of [place] section. heart, unspecified whether angina present HC CBC,PLT & AUTO Routine 01/17/2022 4:36 PM Coronary artery DIFF EST disease involving [place] coronary artery of [place] heart, unspecified whether angina present ANTIBODY SCREEN Routine 01/17/2022 4:36 PM Coronary artery Res ults for this EST disease involving procedure are in [place] coronary the results artery of [place] section. heart, unspecified whether angina present HEPATIC FUNCTION Routine 01/17/2022 4:36 PM Coronary artery Re sults for this PANEL EST disease involving procedure are in [place] coronary the results artery of [place] section. heart, unspecified whether angina present BASIC METABOLIC Routine 01/17/2022 4:36 PM Coronary artery Res ults for this PANEL (NON-FASTING) EST disease involving pro cedure are in [place] coronary the results artery of [place] section. heart, unspecified whether angina present documented [...] who have questions please contact the health manager progressive care that requested your imaging first. ? Narrative [...] ho have questions please contact the health manager progressive care that requested your imaging first. Danny Antonio MD IMG DX ORDERABLES Urine Hold (01/17/2022 4:37 PM EST) P athologist Signature Urine Hold Sample in [facility]. [facility] Specimen Anatomical Collection Method Collection Time Receive d Time (Source) Location / / Volume Laterality Urine Urine / Unknown 01/17/2022 4:37 PM 2021 4:53 EST PM EST Danny Antonio MD URINE ORDERABLES Performing Organization Address City/State/[place] [address] (ABNORMAL) Urinalysis without microscopic (01/17/2022 4:37 PM EST) [facility] Method Time Signature Glucose UA Negative Negative [facility] mg/dL [facility] Protein UA >=300 (A) Negative [facility] mg/dL [facility] Bilirubin UA Negative Negative [facility] mg/dL [facility] Comment: Clinical correlation required for positi ve Urine Bilirubin results as false positive may occur with some drugs and d rug related products. If a false positive is suspected a serum total bili ledezma should be considered if clinically indicated. Urobilinogen UA Normal Normal mg/dL [facility] pH UA 7.0 5.0 - 8.0 [facility] Blood UA Moderate (A) Negative mg/dL [facility] Ketones UA Negative Negative mg/dL [facility] Nitrite UA Negative Negative [facility] Leukocytes UA Negative Negative [facility]ORY Appearance UA Clear Clear [facility] Spec [place] UA 1.013 1.005 - 1.030 [facility] Color UA Yellow Yellow [facility] Specimen Anatomical Collection Method Collection Time Receive d Time (Source) Location / / Volume Laterality Urine 01/17/2022 4:37 PM 4:52 EST PM EST Resulting Agency Comment Spec In Lab Danny Antonio MD URINE ORDERABLES Performing Organization Address City/State/[place] [address] Type and Screen Validity (01/17/2022 4:36 PM EST) [facility] Method Time Signature T&S only valid [facility]ORY Comment: This Type and Screen result is only valid at the [facility] Hospital Specimen Anatomical Collection Method Collection Time Receive d Time (Source) Location / / Volume Laterality Blood 01/17/2022 4:36 PM 2 4:40 EST PM EST Resulting Agency Comment Spec In Lab Danny Antonio MD BLOOD BANK ORDERABLES Performing Organization Address City/[facility]/ZIP Code Phon e Number [address] ABORH Recheck Status (01/17/2022 4:36 PM EST) [facility] Method Time Signature ABORH Type Completed [facility]OR[facility]ORY Specimen Anatomical Collection Method Collection Time Receive d Time (Source) Location / / Volume Laterality Blood 01/17/2022 4:36 PM 2 4:40 EST PM EST Resulting Agency Comment Spec In Lab Danny Antonio MD BLOOD BANK ORDERABLES Performing Organization Address City/[facility]/[place] [address] Antibody screen (01/17/2022 4:36 PM EST) [facility] Method Time Signature Ab Screen Negative [facility] LABOR[facility]ORY Expires at 01/24/2022 JAIRO GRANADO [id number] on: [facility] Specimen Anatomical Collection Method Collection Time Receive d Time (Source) Location / / Volume Laterality Blood 01/17/2022 4:36 PM 2 4:40 EST PM EST Resulting Agency Comment Spec In Lab Danny Antonio MD BLOOD BANK ORDERABLES Performing Organization Address City/[facility]/ZIP Code Phon e Number [address] Differential, Automated (01/17/2022 4:36 PM EST) athologist Signature Neutrophils % 71.0 % [facility] Neutr Abs (ANC) 5.19 1.70 - [facility] 6.10 [facility] x10(3)/[facility] LABORATORY Lymphocytes % 16.7 % [facility] Lymphocytes Abs 1.2 0.9 - 3.2 [facility] x10(3)/[facility] LABORATORY Monocytes % 8.6 % [facility] Monocyte Abs 0.6 0.3 - 0.9 [facility] x10(3)/[facility] LABORATORY Eosinophils % 2.6 % [facility] Eosinophils Abs 0.2 0.0 - 0.4 [facility] x10(3)/[facility] LABORATORY Basophils % 0.8 % [facility] Basophils Abs 0.1 0.0 - 0.1 [facility] x10(3)/[facility] LABORATORY Immature Gran % 0.30 % [facility] Comment: Immature granulocytes(IG's)percentage an d absolute count will include metamyelocytes, myelocytes, and promyelo cytes. Blood smears from CBCs yielding IG's will be scanned manually for concor dance. If this scan disagrees with the automated IG or if promyelocytes are not ed, a manual differential will be performed. Nikole Gran Abs 0.02 0.00 - 0.04 x10(3)/[facility] MAR Y [facility] Specimen Anatomical Collection Method Collection Time Receive d Time (Source) Location / / Volume Laterality Blood 01/17/2022 4:36 PM 2 4:48 EST PM EST Resulting Agency Comment Spec In Lab Danny Antonio MD HEMATOLOGY ORDERABLES Performing Organization Address City/[facility]/[place] [address] ABO/Rh Typing (01/17/2022 4:36 PM EST) P athologist Signature ABORh Type O Neg [facility] Specimen Anatomical Collection Method Collection Time Receive d Time (Source) Location / / Volume Laterality Blood 01/17/2022 4:36 PM 2 4:40 EST PM EST Resulting Agency Comment Spec In Lab Danny Antonio MD BLOOD BANK ORDERABLES Performing Organization Address City/[facility]/[place] [address] (ABNORMAL) Hemogram (01/17/2022 4:36 PM EST) Analysis Performed At Patho logist Time Signature WBC 7.3 4.0 - 9.5 [facility] x10(3)/[facility] LABORATORY RBC 3.83 (L) 4.58 - JAIRO LOY 5.54 [facility] x10(6)/[facility] LABORATORY Hemoglobin 11.9 (L) 13.7 - [facility] 16.5 g/dL [facility] Hematocrit 33.8 (L) 40.5 - [facility] 48.5 % [facility] MCV 88.3 82.9 - [facility] 93.1 [facility]ORATORY MCH 31.1 27.5 - [facility] [facility] MCHC 35.2 32.0 - [facility] 35.7 g/dL [facility] Platelets 194 145 - 357 [facility] x10(3)/[facility] LABORATORY RDWSD 41.6 36.0 - [facility] 45.0 [facility] LABORATORY RDWCV 13.0 11.4 - [facility] 13.8 % [facility] MPV 9.4 7.6 - 12.9 [facility] LABORATORY nRBC % Auto 0.0 % [facility] nRBC Abs Auto 0.000 0.000 - [facility] 0.000 [facility] x10(3)/[facility] LABORATORY Specimen Anatomical Collection Method Collection Time Receive d Time (Source) Location / / Volume Laterality Blood 01/17/2022 4:36 PM 4:48 EST PM EST Resulting Agency Comment Spec In Lab Danny Antonio MD HEMATOLOGY ORDERABLES Performing Organization Address City/State/[place] [address] Prothrombin Time (01/17/2022 4:36 PM EST) P athologist Signature PT 10.6 9.4 - 12.5 [facility] LABORATORY INR 0.9 [facility] Comment: An INR <2.0 indicates adequate [...] Antonio MD HEMATOLOGY ORDERABLES Performing Organization Address [facility]/ZIP Code Phon e Number [address] Hepatic Function Panel (01/17/2022 4:36 PM EST) P athologist Signature Total Protein 7.2 6.1 - 8.0 JAIRO LOY g/dL [facility] Albumin 4.3 3.2 - 5.2 JA[facility] LOY g/dL [facility] AST 25 0 - 39 JAIR[facility] LOY unit/L [facility] ALT 18 0 - 55 JA[facility] LOY unit/L [facility] Alk Phos 116 40 - 130 [facility] LOY unit/L [facility] Total 0.5 0.2 - 1.3 JA[facility] LOY Bilirubin mg/dL [facility] Bili, Direct 0.2 0.0 - 0.3 JA[facility] LOY mg/dL [facility] Specimen Anatomical Collection Method Collection Time Receive d Time (Source) Location / / Volume Laterality Blood 01/17/2022 4:36 PM 2 4:48 EST PM EST Resulting Agency Comment Spec In Lab Danny Antonio MD CHEMISTRY ORDERABLES Performing Organization Address City/[facility] [place] [address] Basic Metabolic Panel (non-fasting) (01/17/2022 4:36 PM EST) P athologist Signature Glucose Lvl 175 65 - 199 JAIRO LOY mg/dL [facility] Comment: Diabetes: >=200 mg/dL plus symp toms BUN 15 10 - 20 mg/dL [facility] Creatinine 1.17 0.80 - 1.50 mg/dL [facility] Sodium 139 135 - 145 mmol/L [facility] Potassium 4.0 3.5 - 5.0 mmol/L [facility] Comment: Please note: ??Patients with WBC >100,00 0 may have falsely elevated Potassium levels. ??For accurate Potassium quantif ication in these patients send serum separator tube (gold top) for subsequent determinations. ??Contact the Clinical Chemistry Laboratory if there are any qu estions. Chloride 102 98 - 107 mmol/L [facility] CO2 24 22 - 31 mmol/L [facility] Anion Gap 13 5 - 15 mmol/L [facility] Calcium 9.2 8.5 - 10.5 mg/dL [facility] Estimated GFR 64 >=60 mL/min/1.73 m?? [facility] Comment: This patient? s [...] Resulting Agency Comment Spec In Lab Danny Antonoi MD CHEMISTRY ORDERABLES Performing Organization Address City/State/Z[place] [address] documented in this encounter Visit Diagnoses Diagnosis Coronary artery disease involving [place] coronary artery of [place] heart, unspecified whether angina present Coronary artery disease involving [place] coronary artery of [place] heart, unspecified whether angina present Vocal cord paralysis Paralysis of vocal cords or larynx, unsp ecified documented in this encounter Care Teams Writer Producer Relationship Specialty Start Date End Date Vladimir Muñoz DO PCP - General Family Medicine 01/19/18 [address] [place] [phone] documented as of this encounter
--- OUTSIDE RECORDS SUMMARY | 2022-10-07 08:53 | XMS_ITS | Encounter Summary ---
:1955 Author Organization [facility] [address] Care Team Providers Name Role Phone Vladimir [...] Expiration Date Visits Requ ested Visits Authorized [id number] 1 1 Encounter Details Date Type Department Care Team Description 01/21/2022 Anesthesia Event Main Operating Room Donnie Jasso MD [facility] [place] [address] [place] [address] [phone] Anesthesia Record Procedure Summary Procedure Name Responsible Anesthesia Start Anesthesia Stop Time Anesthesiologist Time @CABG, USING Donnie Vasquez MD 01/21/22 0746 01/21/22 12 08 ARTERIAL GRAFT;SINGLE ARTERIAL GRAFT (WRVU 33.75) (Chest) Events Date Time Event Comment 01/21/2022 0707 [...] left; 20 gauge; Mateus Rivera DO Todor ovic, Anatomical Landmarks; ESTEFANIA Simmons continuous blood pressure monitoring, frequent blood gas measurement; DO Miguel; Sterile Prep, Sterile Gloves; pt pulled out; 01/26/22; 0628 ETT Mask Ventilation: Adjunct 01/21/22 0754 by 01/24 1030 by (2) (100mm OPA); ETT Type: Mateus Rivera DO Ta cewicz, Donald A, Cuffed, Oral; 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: 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; Villalpando Blade: 2; Attempts: 1; Laryngoscopy Grade: 1; ETT Placement Verified By: Capnometry; Secured at Teeth: 23 cm; Inserted by: DO Miguel Urethral Catheter 01/21/22; 0755; Surgery 01/21/22 0755 by 01/27 1230 by longer than 2 hours, Need Gabi Mendez, Rigoberto Quigley, RN for intraoperative urine output monitoring; Immobility [...] 2100 by internal jugular vein; VIP; Mateus Rivera DO T odorovic, 8 Fr; CVC Bundle Performed; Néstor ibrahim RN pt pulled out [place] Gopal catheter; DO Miguel; 01/24/22; 2100 Chest Tube 01/21/22; 0905; Left; 01/21/22 0905 by 01/23/22 0945 by lateral; other (see Gabi Mendez RN Dewey, David B, RN comments); Pleural Cavity; 01/23/22; 0945 Drain/Device Site 01/21/22; 1005; Right; 01/21/22 1005 by 2217 by distal; thigh; other (see Gabi Mendez RN S ansom, Joseph P, comments) (7mm daniel); Luiz MAC Viramontes PA; 01/21/22; 2217 Chest Tube 01/21/22; 1115; Right; 01/21/22 1115 by 01/23/22 0945 by posterior; mediastinum; 28 Gabi Mendez RN Dewey, David B, RN fr angled; 01/23/22; 0945 Chest Tube 01/21/22; 1120; Left; 01/21/22 1120 by 01/23/22 0945 by anterior; mediastinum; 28 Gabi Mendez RN D Tremaine guadalupe RN fr straight; 01/23/22; 0945 PIV 01/21/22; [...] Procedure Summary Date: 01/21/22 Room / Location: [facility] OR [address] [place] [address] MAIN OR Anesthesia Start: 745 Anesthesia Stop: 1208 Procedures: @CABG, USING ARTERIAL GRAFT;SINGLE ARTERIAL GRAFT (WRVU 33.75) (N/A Chest) ENDOSCOPIC HARVEST VEIN(S) FOR CABG (WRVU 0.31) (Right Leg) @CABG, TWO VENOUS GRAFTS & ARTERIAL GRAFT (WRVU 7.93) (N/A Chest) Diagnosis: (CAD) Surgeons: Danny Antonio MD Responsible Provider: Donnie Vasquez MD Anesthesia Type: general ASA Status: 3 All Anesthesia Providers: Anesthesiologist: Donnie Vasquez MD Railroad Signal And Switch Operator: Mateus Rivera, DO Vitals Value Taken Time BP 66/47 01/21/22 1332 Temp 35.3 ??C (95.5 ??F) 01/21/22 1400 Pulse 80 01/21/22 1454 Resp 20 01/21/22 1454 SpO2 95 % 01/21/22 1454 Pain Level 0 01/21/22 1400 Vitals shown include unvalidated device data. Patient Location: [facility] Level of Consciousness: Sedated (Pharmacologic/Intentional) Pain Management: [...] 01/17/2022 K 4.0 01/17/2022 CREATININE 1.17 01/17/2022 01/17/22 1636 ABORH O Neg Allergies: -- Lisinopril -- Anaphylaxis and Other (See Comments) -- Ear buzzing, nausea, itching, tongue swelling NPO Status: Appropriate Denies recent fever or URI Sxs Anesthetic Plan: GA with ETT Standard ASA monitoring + pre induction arterial line + CVC + PAC + WILNER Adequate IV access Mateus Rivera DO Pager: [phone] Region - Intrathoracic Cardiac Informed Consent: Anesthetic plan and risks discussed with patient. Use of blood products discussed with patient who consented to blood products. Plan discussed with resident. Anesthesia Screening documented in this encounter Plan of Treatment Upcoming Encounters Date Type Specialty Care Team Description 03/25/2022 Anesthesia Event Surgery Catrachita Baez MD [facility] ANESTHESIOLOGY [place], [place] [address] (Wo rk) 12/15/2022 Office Visit Cardiology Damián Hart MD [facility] [place], [place] [address] (Wo rk) 03/25/2050 Hospital Encounter Surgery Citlalli Richardson MD Vocal cord paralysis [facility] OTOLARYNGOLOGY [place], [place] [address] (Wo rk) documented as [...] mg documented in this encounter Care Teams Transportation Mechanic Relationship Specialty Start Date End Date Vladimir Muñoz DO PCP - General Family Medicine 01/19/18 580 [place] [address] documented as of this encounter
--- OUTSIDE RECORDS SUMMARY | 2022-10-07 08:53 | XMS_ITS | Encounter Summary ---
:1955 Author Organization [facility] [place] [address] Care Team Providers Name Role Phone Vladimir Muñoz DO Primary Care Provider Encounter Details Date Type Department Care Team Description 01/17/2022 Clinical [place] [address] Social History Tobacco Use Types Packs/Day [...] 03/25/2022 Anesthesia Event Surgery Catrachita Baez MD [facility] ANESTHESIOLOGY [place], [place] [address] (Wo rk) 12/15/2022 Office Visit Cardiology Damián Hart MD [facility] [place], [place] [address] (Wo rk) 03/25/2050 Hospital Encounter Surgery Citlalli Richardson MD Vocal cord paralysis [facility] OTOLARYNGOLOGY [place], [place] [address] (Wo rk) documented as of this encounter Visit Diagnoses Not on filedocumented in this encounter Care Teams Publication Manager Relationship Specialty Start Date End Date Vladimir Muñoz DO PCP - General Family Medicine 01/19/18 [address] [place] [address] documented as of this encounter
--- OUTSIDE RECORDS SUMMARY | 2022-10-07 08:53 | XMS_ITS | Encounter Summary ---
:1955 Author Organization [facility] [place] [address] Care Team Providers Name Role Phone Vladimir Muñoz DO Primary Care Provider Encounter Details Date Type Department Care Team Description 01/13/2022 Telephone Cardiac Surgery at [facility] [place] [address] Social History Tobacco Use Types Packs/Day [...] next per Dr. Antonio. Consult from laboratory equipment cleaner documented in this encounter Plan of Treatment Upcoming Encounters Date Type Specialty Care Team Description 03/25/2022 Anesthesia Event Surgery Catrachita Baez MD [facility] DR ANESTHESIOLOGY [place], [place] [address] (Wo rk) 12/15/2022 Office Visit Cardiology Damián Hart MD [facility] [place], [place] [address] ( rk) 03/25/2050 Hospital Encounter Surgery Citlalli Richardson MD Vocal cord paralysis [facility] OTOLARYNGOLOGY [place], [place] [address] ( rk) documented as of this encounter Visit Diagnoses Not on filedocumented in this encounter Care Teams Comic Writer Relationship Specialty Start Date End Date Vladimir Muñoz DO PCP - General Family Medicine 01/19/18 [address] [place] [address] documented as of this encounter
--- OUTSIDE RECORDS SUMMARY | 2022-10-07 08:53 | XMS_ITS | Encounter Summary ---
:1955 Author Organization [facility] Address [facility] [place] [address] Care Team Providers Name Role Phone Vladimir [...] Expiration Date Visits Requ ested Visits Authorized [id number] 1 1 Encounter Details Date Type Department Care Team Description 01/21/2022 Surgery Main Operating Room Danny Jewell, @ CABG, USING ARTERIAL Gabrielle Espinosa MD GRAFT;SINGLE ARTERIAL Hospital [facility] GRAFT (WRVU 33.75) [facility] DR Uriarte [place] [address] SURGERY [phone] [place], [place] [address] (Wo rk) Social History Tobacco [...] Patient Age: 66 y.o. Birthdate: 1955 Language: South Korean Race: White Ethnicity: Not nor Admit Date: 01/21/2022 Discharge Date: 01/31/22 Attending Physician: Danny Jewell MD Follow-up Recommendations for Providers: ??? Please continue routine management of cardiovascular risk factors including blood pressure, lipids, glucose, etc. ??? Please note any changes to medications. ??? Patient to follow up with PCP, Vladimir Muñoz DO, in 1-2 weeks. ??? Patient to follow up with Informaticist, Dr. Hart, in 2 weeks. ??? Patient to follow up with Cardiac Surgeon, Dr. Danny Jewell, with a chest x-ray, EKG. ??? Patient to follow up with Patient to follow up with Allergy medicine, Otolaryngology and Speech Language pathology as scheduled. Inpatient Provider Contact Information: [facility] Section of [place]iac Surgery [facility] [address] FAX [phone] Discharge Diagnoses (Hospital Problems) Primary Diagnoses: CAD [...] CATHERIZATION stent placement ? ? PRG CATH [facility] CORONARY ART W/INJ FOR ANGIO W/R HEART CATH IMG S&I N/A 01/13/2022 CORONARY ANGIOGRAPHY; W RHC performed by Polo Beckham MD at [facility] CATH LABS ??? PRO CABG, ARTERIAL, SINGLE N/A 01/21/2022 @CABG, USING ARTERIAL GRAFT;SINGLE ARTERIAL GRAFT (WRVU 33.75) performed by Danny Jewell MD at [facility] MAIN OR ??? PRO CABG, ARTERY-VEIN, TWO N/A 01/21/2022 @CABG, TWO VENOUS GRAFTS & ARTERIAL GRAFT (WRVU 7.93) performed by Danny Jewell MD at [facility] MAIN OR ??? PRO ENDOSCOPY W/VIDEO-ASST VEIN HARVEST, CABG Right 01/21/2022 ENDOSCOPIC HARVEST VEIN(S) FOR CABG (WRVU 0.31) performed by Danny Jewell MD at [facility] MAIN OR Prior To Admission Medications Medications [...] below. He has treated hypertension, heis a tgx-jgubogw-vbrwmetfq diabetic. He has had no known previous [...] delirium Vinod Ochoa Jr. was admitted to [facility] on 01/21/2022 via the Same Day Program. [...] Danny Jewell and/or the Cardiac Surgery Physician Solderer Torch Team may be reached at . Weight: [...] Dr. Danny Jewell. You may use a Volo Track or treadmill but avoid any pulling [...] friends, go to a movie, go to caodaism, etc. Heavy activities: No hunting, skiing, jogging, snow shoveling, snowmobiling, lawn mowing, swimming, golf or tennis until after your return appointment with the surgeon. Do not ride motorcycles, [employer] tractors or horses. Avoid the use of [...] should resume a low fat, low cholesterol, [place] Heart Association Diet/Diabetic diet. Driving: No driving [...] office will schedule an appointment with your Informaticist, Dr. Pickens, in 2 weeks. ??? You have an appointment with your Cardiac Surgeon, Dr. Danny Jewell, with a chest x-ray, EKG before your appointment. ??? Patient to follow up with Allergy medicine, Otolaryngology and Speech Language pathology as scheduled. Cardiac Rehabilitation: Vinod Ochoa Jr. was seen today regarding participation in the outpatient Phase 2 Cardiac Rehabilitation at [facility]. The patient agrees to a referral to this program. The referral will be sent at discharge and the patient should be contacted by the Program within 1- 2 weeks from discharge. Future Appointments and Orders Future Appointments and Orders Future Appointments Provider Department Dept Phone 02/17/2022 10:00 AM Chris Barreto MD; LILIA Clement SCHEDULE Allergy at [facility] Arrive at: [facility] Nurse [facility] [phone] 03/06/2022 2:00 PM [facility] ROOM 2 XRay at [facility] [place] [facility] Arrive at: Float Nurse Area [phone] Please go to Float Nurse Area ([facility]). 03/06/2022 2:50 PM Danny Jewell MD Cardiac Surgery at [facility] [facility] Arrive at: Float Nurse Area 4A [phone] 04/29/2022 3:00 PM Damián Hart MD Cardiology at [place] Arrive at: [facility] [address] [phone] Future Orders Complete By Expires Referral to Cardiac Rehab [GMG874 Custom] As directed Process Instructions: If no progress note charted, please enter Clinical details in comments. Scheduling Instructions: Questions: My question or request is: CABG Referral to Home Health - at DISCHARGE [ODX9354 CPT(R)] As directed Process Instructions: Scheduling Instructions: Comments: DOCUMENTATION FOR VNA SERVICES (INCLUDING THOSE PATIENTS WITH MEDICARE COVERAGE REQUIRING HOME VNA SERVICES AND/OR HOSPICE SERVICES) PATIENT'S LOCATION: Vinod Ochoa [facility] [address] [facility] [address] (home) Telephone Information: Director Of Housing And Energy Services's Name: Self In discussion with the attending physician, it is certified that this patient is under their care and that they, or a Nurse Practitioner, or Physician Solderer Torch who is working directly with them, had [...] need for servicesas follows: HOME HEALTH AGENCY: [facility] in [place], [place] and [phone] RN orders: Cardiopulmonary assessment, incisional assessment, assess vital signs, assessment of rehab progress, medication management and effectiveness, home safety evaluation. PT ORDERS: Continue rehab for endurance, gait stability and strength with mobility and transfers. Home safety evaluation. Home exercise program if appropriate. EMS HELICOPTER PILOT ORDERS: assess and assist with community support needs Start of Care Date: 24 to 48 hours SPECIAL INSTRUCTIONS: For any follow up questions, needs, or issues please call the Cardiac Surgery Office at [phone] FOR MEDICARE ONLY: (please delete this section [...] noted. Questions: Agency name and contact information: [facility] Patient location post discharge: Home What services are requested: Registered Nurse Physical Therapy Start date: Responsible MD post discharge contact info: PCP and cardiology Dr. Danny Jewell Arrangements for VNA/home care: As above. VN RN OR PCP TO PLEASE REMOVE CHEST TUBE SUTURES ON OR AFTER 01/31/22 Signed: Manan Lovelace PA-C [facility] Section of Cardiac Surgery [facility] [address] FAX [phone] Date: 01/31/2022 CC: DO Best Hassan Jock N, MD [facility] [place] [address] documented in this encounter Discharge Instructions Patient [...] Danny Jewell and/or the Cardiac Surgery Physician Solderer Torch Team may be reached at . Weight: [...] Dr. Danny Jewell. You may use a Volo Track or treadmill but avoid any pulling [...] friends, go to a movie, go to caodaism, etc. Heavy activities: No hunting, skiing, jogging, snow shoveling, snowmobiling, lawn mowing, swimming, golf or tennis until after your return appointment with the surgeon. Do not ride motorcycles, [employer]'s tractors or horses. Avoid the use of [...] should resume a low fat, low cholesterol, [place] Heart Association Diet/Diabetic diet. Driving: No driving [...] office will schedule an appointment with your Informaticist, Dr. Pickens, in 2 weeks. You have an appointment with your Cardiac Surgeon, Dr. Danny Jewell, with a chest x-ray, EKG before your appointment. Patient to follow up with Allergy medicine, Otolaryngology and Speech Language pathology as scheduled. Cardiac Rehabilitation: Vinod Ochoa Jr. was seen today regarding participation in the outpatient Phase 2 Cardiac Rehabilitation at [facility]. The patient agrees to a referral to [...] consulted in the interim. Lina Gamez Pager: [phone] Felisa Joy, [facility] - 01/31/2022 12:47 PM EDT Speech-Language Pathology [...] pt. Pt about to be DC'd from [facility] [place], anxious to go home. Pt w/ noticeable moderate breathy hypophonia, low volume. Pt states that his voice has gradually improved since surgery (he reports he was initially aphonic). 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 Pt going to attend Cardiac Rehab at [facility] in [place], [place] in coming weeks. Pt would like voice therapy as well. Unfortunately, from review of website, no OP [facility] services appear to be offered by that hospital. Also says he is close to [facility], but review of their website also w/o mention of OP [facility] services. I offered to pt that he could be seen by [facility] voice therapist TeleHealth, however, he declines this as he does not have a computer or tablet at home and is not comfortable w/ technology. I suggested to BREANA that he put in a referral for OP voice therapy here at [facility] and schedule it for 4 weeks from now, when pt plans to return to [facility] to be re- checked by ENT. Pt hopefullywill continue to have improvements in his voice quality spontaneously (as he has in past few days asper his report). Pt notes that his voice is now strong enough to be understood by family and practiti oners, and on the phone. Pt can contact [facility] OP [facility] therapy if he has concerns or questions in interim. [phone]. Felisa Joy MA [facility] Inpatient Rehabilitation Medicine pager:# [phone] Manan Lovelace PA - 01/31/2022 8:37 AM [...] Cardiogenic shock resolved. Post-op delirium-resolved - Consult [facility] for eval and ENT for laryngoscopy - [...] 0600 and on the weekends please page [phone]. Elizabeth Leija RN - 01/31/2022 2:31 AM EDT Pt AAOx4 NSR on tele- see scanned docs. VSS on RA. Denies any pain or SOB. Sternal incision CDI. Pt ambulated independently to bathroom and around unit. Rested comfortably between care. Call ballesteros within reach. Kenny Berumen - 01/30/2022 8:09 PM EDT [employer] Encounter Note Patient Name: Vinod Ochoa Jr. : [id number] MR#: [id number] Admit Date: 01/21/2022 5:47 AM Hospital Day [...] occurred. He looks forward togoing home. Follow-up: [facility] [employer] is available as needed. Time in Direct [...] set-up. Pt stated that he lives in [place]. Precautions/Special Considerations: STERNAL PRECAUTIONS (No pushing, pulling [...] with plan as stated. Time IN / OUT:7592-6186 Total Minutes, Physical Therapy: 15 mins (te-fx2) Chris Thompson, PT Pager: [phone] Physical Therapy Inpatient Rehabilitation Department Manan Lovelace [...] 0600 and on the weekends please page [phone]. Elizabeth Leija RN - 01/30/2022 3:43 AM [...] [78 bpm-86 bpm] 01/28 0701 - 01/29 07 In: 1350 [P.O.:1350] Out: 975 [Urine:975] Admit [...] 0600 and on the weekends please page [phone]. Ayaka Caldwell, PT - 01/28/2022 5:19 PM [...] set-up. Pt stated that he lives in [place]. ?? Precautions/Special Considerations: STERNAL PRECAUTIONS (No pushing, [...] with plan as stated. Time IN / OUT:7360-0205 Total Minutes, Physical Therapy: 24 Billing Code: te-fx2 AYAKA CALDWELL PT Pager: [phone] Physical Therapy Inpatient Rehabilitation Department Linda Villafuerte - 01/28/2022 3:52 PM EDT [employer] Encounter Note Patient Name: Vinod Ochoa Jr. : [id number] MR#: [id number] Admit Date: 01/21/2022 5:47 AM Hospital Day [...] Follow-up: As needed. Time in Direct Care: Davion Villafuerte 01/28/2022 Tanja Romeo - 01/28/2022 1:00 [...] nausea and no vomiting Last Bowel Movement: (TEXTILE DYER) Patient education / questions: all nutrition related questions answered at this time Nutrition services to follow weekly through hospital course unless consulted in the interim. Tanja Romeo, DT [phone] Librado Cueva PA - 01/28/2022 10:22 AM EDT Cardiac Surgery Progress Note Vinod [place] Hanks is a 66 y.o. male with [...] 0600 and on the weekends please page [phone]. Rolanda Zhang MD - 01/27/2022 10:56 AM EDT Cardiovascular Critical Care Attending Note Vinod Ochoa . 1955 Age: 66 y.o. PCP: Vladimir Muñoz [...] rashes. Incisions: c/d/i Tubes/Lines/Drains: piv, dailey, danielle, JOELLE Assessment/Plan: 66 y.o. male 6 [...] 0600 and on the weekends please page [phone]. Ayaka Caldwell, PT - 01/27/2022 2:58 AM [...] set-up. Pt stated that he lives in [place]. Precautions/Special Considerations: STERNAL PRECAUTIONS (No pushing, pulling [...] Therapy: 28 Billing Code: TAx2 Debbi Waters, [facility] Physical Therapy Inpatient Rehabilitation Department I was present for this rx and agree with the contents of this note. Ayaka Caldwell PT #[id number] Chris Thompson, PT - 01/26/2022 2:50 PM [...] CATHERIZATION stent placement ? ? PRG CATH [facility] CORONARY ART W/INJ FOR ANGIO W/R HEART CATH IMG S&I N/A 01/13/2022 CORONARY ANGIOGRAPHY; W RHC performed by Polo Beckham MD at [facility] CATH LABS ??? PRO CABG, ARTERIAL, SINGLE N/A 01/21/2022 @CABG, USING ARTERIAL GRAFT;SINGLE ARTERIAL GRAFT (WRVU 33.75) performed by Danny Jewell MD at [facility] MAIN OR ??? PRO CABG, ARTERY-VEIN, TWO N/A 01/21/2022 @CABG, TWO VENOUS GRAFTS & ARTERIAL GRAFT (WRVU 7.93) performed by Danny Jewell MD at [facility] MAIN OR ??? PRO ENDOSCOPY W/VIDEO-ASST VEIN HARVEST, CABG Right 01/21/2022 ENDOSCOPIC HARVEST VEIN(S) FOR CABG (WRVU 0.31) performed by Danny Jewell MD at [facility] MAIN OR Social History: Pt able to [...] in this evaluation. CHRIS THOMPSON, PT Pager: [phone] Physical Therapy Inpatient Rehabilitation Department Time IN / OUT: 5635-9217 Total time: 38 mins ( eval) Damián [...] 0600 and on the weekends please page [phone]. Lizzie Montes DT - 01/26/2022 8:15 AM [...] lb) Weight loss: none ARACELI Loo Pager: [phone] Aron Darling MD - 01/26/2022 6:10 AM EDT CARDIAC CRITICAL CARE STAFF PROGRESS NOTE Author: Aron Darling MD, PhD Patient seen and examined on critical care rounds. [id number] Vinod Ochoa Jr. is a 66 y.o.male [...] Primary * Luiz Viramontes PA - Physician Solderer Torch * Librado Cueva PA - Physician Solderer Torch 24 HOUR EVENTS: Delirious, impulsive overnight Precedex [...] 0600 and on the weekends please page [phone]. Aron Darling MD - 01/25/2022 6:02 AM EST CARDIAC CRITICAL CARE STAFF PROGRESS NOTE Author: Aron Darling MD, PhD Patient seen and examined on critical care rounds. [id number] Vinod Ochoa Jr. is a 66 y.o.male [...] Primary * Luiz Viramontes PA - Physician Solderer Torch * Librado Cueva PA - Physician Solderer Torch 24 HOUR EVENTS: Extubated yesterday AM 3L [...] possible. CI > 3 at time of [employer] removal, hypertensive on NTG gtt. Uptitrate BB [...] deterioration? No Aron Darling MD, PhD Johnny Carrasquillo, [facility] - 01/24/2022 1:52 PM EST Respiratory Therapy NIV Note NIV Settings: NC 6L NIV Mode: CPAP EPAP (cmH20): 5 FiO2 (%): 45 % O2 Bleed In (LPM): 0 L/min NIV Measurements: Resp: 14 Mve: 12.5 Leak (L/min): 35 L/min Vte: 417 SpO2: 96 % Laboratory: Lab Results Component Value Date/Time PHART 7.42 01/24/2022 09:43 AM AFH2ZAA 38 01/24/2022 09:43 AM PO2ART 65 (L) 01/24/2022 09:43 AM SAV6WLS 24.5 01/24/2022 09:43 AM BEART 0.0 01/24/2022 [...] who have questions please contact the health personal care aid that requested your imaging first. Electronically signed by: Catrachito Cisneros MD, [facility] ([phone]), at 01/21/2022 1:00 PM Skin Assessment: NIV [...] 0600 and on the weekends please page [phone]. Aron Darling MD - 01/24/2022 5:07 AM EST CARDIAC CRITICAL CARE STAFF PROGRESS NOTE Author: Aron Darling MD, PhD Patient seen and examined on critical care rounds. [id number] Vinod Ochoa Chelsey is a 66 y.o.male [...] Primary * Luiz Viramontes PA - Physician Solderer Torch * Librado Cueva PA - Physician Solderer Torch 24 HOUR EVENTS: Epi weaned to off [...] Vitals for the past 168 hrs: Weight 03/11/22 0400 110.7 kg (244 lb 0.8 oz) [...] the unit. Aron Darling MD, PhD Azra Avelar RT - 01/23/2022 8:05 PM EST AMV [...] extubation. Will continue to monitor and support. RT Ned Johnny Carrasquillo RCP - 01/23/2022 1:08 PM [...] ventilated in CTICU protocol and SIMV Morning AB.37///21 FiO2 weaned to 40% Patient is fluid positive 11 liters, plan is to extubated tomorrow. Johnny Buenrostro RCP Uriel Oro PT - 01/23/2022 11:40 AM EST Physical Therapy Note PT referral received, pt still intubated and sedated, and not appropriate for PT today. PT will follow up as appropriate. RN aware of pt's status. Uriel Sinha, NAEEM Beeper# [phone] Damián Grove PA - 01/23/2022 8:07 AM [...] 0600 and on the weekends please page [phone]. Christiane Syed RCP - 01/23/2022 5:36 AM [...] seen and examined on critical care rounds. [id number] Vinod Ochoa Jr. is a 66 y.o.male [...] Primary * Luiz Viramontes PA - Physician Solderer Torch * Librado Cueva PA - Physician Solderer Torch 24 HOUR EVENTS: Improving CI and UOP [...] Salazar MSW - 01/22/2022 4:59 PM EST EMS HELICOPTER PILOT followed up on social work referral to complete Advance Directives. Pt has been intubated today and [facility]'s Mobile Sales Technician plans to follow up with pt tomorrow (or when extubated) to see if patient does want to compete his Advance Directive. PLAN: Either realty specialist or EMS HELICOPTER PILOT to follow up with pt re advance directives once he is extubated. Mariana Zelaya [facility] [phone] Chris Thompson PT - 01/22/2022 4:01 PM EST PT Note Pt is POD# 1. Physical Therapy referral received. Pt currently intubated/sedated. Not yet approp forPT evaluation. Will follow-up as approp for eval Chris Thompson, PT Pager [phone] Gala Matamoros RN - 01/22/2022 11:58 AM EST Reached out to family members for completion of IA. SonAlex unavailable recommended calling daughter Barbara. Left message for Barbara with her to call this RNCM when she returns home from work. stated he would lpn rn her the message. Damián Grove PA - [...] 15/650/50%/8 01/21 0701 - 01/22 0700 In: 43493.4 [I.V.:8872.4] Out: 1909 [Urine:674] CT Med: 430/140 [...] 0600 and on the weekends please page [phone]. Christiane Syed [facility] - 01/22/2022 6:09 AM EST CTICU Protocol: [...] seen and examined on critical care rounds. [id number] Vinod Ochoa Jr. is a 66 y.o.male [...] Primary * Luiz Viramontes PA - Physician Solderer Torch * Librado Cueva PA - Physician Solderer Torch 24 HOUR EVENTS: Suspected anaphylaxis to albumin [...] had episode of hypotension after arrival to [facility]. Initially, the hypotension was able to [...] will improve over time. Danny Jewell MD [phone] Carmen Stout [facility] - 01/21/2022 3:34 PM EST Respiratory [...] plan since last visit. Danny Jewell MD [phone] Source Note - Danny Jewell MD - [...] below. He has treated hypertension, heis a ohk-gmpdcqt-wwqmftzkm diabetic. He has had no known previous [...] given written informed consent. Danny Jewell MD [phone] Danny Jewell MD - 01/21/2022 6:50 AM [...] below. He has treated hypertension, heis a hbc-rcvrsoe-pqhwrcmuy diabetic. He has had no known previous [...] given written informed consent. Danny Jewell MD [phone] documented in this encounter Nursing Notes Gabi Mendez RN - 01/21/2022 8:56 AM EST Pt informed on surgery start @ 0854 documented in this encounter Miscellaneous Notes Consult Note - Ayana Argueta RN - 01/31/2022 10:20 AM EDT [facility] CARDIAC REHABILITATION Vinod Ochoa Jr. was seen today regarding participation in the outpatient Phase 2 Cardiac Rehabilitation at [facility]. The patient agrees to a referral to [...] Jr. today at the request of Dr. Cee att. providers found regarding dysphonia. Vinod Ochoa Jr. [...] CATHERIZATION stent placement ? ? PRG CATH [facility] CORONARY ART W/INJ FOR ANGIO W/R HEART CATH IMG S&I N/A 01/13/2022 CORONARY ANGIOGRAPHY; W RHC performed by Polo Beckham MD at [facility] CATH LABS ??? PRO CABG, ARTERIAL, SINGLE N/A 01/21/2022 @CABG, USING ARTERIAL GRAFT;SINGLE ARTERIAL GRAFT (WRVU 33.75) performed by Danny Jewell MD at [facility] MAIN OR ??? PRO CABG, ARTERY-VEIN, TWO N/A 01/21/2022 @CABG, TWO VENOUS GRAFTS & ARTERIAL GRAFT (WRVU 7.93) performed by Danny Jewell MD at [facility] MAIN OR ??? PRO ENDOSCOPY W/VIDEO-ASST VEIN HARVEST, CABG Right 01/21/2022 ENDOSCOPIC HARVEST VEIN(S) FOR CABG (WRVU 0.31) performed by Danny Jewell MD at [facility] MAIN OR Medications & Allergies No current [...] products and Lisinopril Social History Lives in [place] [address] Social History Socioeconomic History ??? Marital status: [...] for him the continue to work with SKE[facility]ER in the interim and f/u with ENT. If his symptoms do not improve, we will undergo further investigation as to the etiology of his symptoms and have treatment options to improve his dysphonia. Recommendations: 1. Continue to work with S[facility]ER 2. Plan for ENT f/u OP, appointment requested __ Bhakti Paredes MD, PGY-2 02/01/22 9:35 AM ENT Team Pager: [phone] Care Management - Gala Matamoros RN - [...] shock resolved. Post-op delirium-resolved ?? - Consult [facility] for eval and ENT for laryngoscopy - [...] work and living out of the area. EMS HELICOPTER PILOT was added to VN order to assist family with community support resources. RNCM recommended private child care coordinator to support patient as hetransitioned [...] SUPPLEMENT Prescription Coverage: Yes Preferred Pharmacy: [facility] - [address] [place] [phone] Plan for discharge is: Home w/ Services Home Health Services: Registered Nurse, Physical Therapy Agency Referrals & Follow-up Care: Contact information for follow-up [address] [address] For Nursing, PT and EMS HELICOPTER PILOT service Transportation: family or friend will provide Sister Barbara is planning on transporting at discharge Barriers to discharge: none Plan going forward: Care Management will continue to follow and assist with discharge planning and coordination of care as indicated. Anticipated Date of Discharge: 01/31/2022 Gala Matamoros online tutor M-Th Care Management - Gala Matamoros RN [...] SUPPLEMENT Prescription Coverage: Yes Preferred Pharmacy: [facility] [place] - [address] [facility] [address] [facility] [phone] Plan for discharge is: Home w/ Services Home Health Services: Registered Nurse, Physical Therapy Agency Referrals & Follow-up Care: Contact information for follow-up [address] [address] Transportation: family or friend will provide Sister [...] Type: *No Product type* / Secondary Insurance: [facility] MEDICARE SUPPLEMENT Prescription Coverage: Yes Preferred Pharmacy: [facility] [address] [facility] [phone] Plan for discharge is: Pending Hospital Course and PT/OT Recommendations Transportation: family or friend will provide Barriers to discharge: Discharge planning Plan going forward: Care Management will continue to follow and assist with discharge planning and coordination of care as indicated. Anticipated Date of Discharge: 01/30/2022 Gala Matamoros online tutor M-Th Initial Assessments - Gala Matamoros RN - [...] COVID test: Lab Results Component Value Date [id number] Not Detected 01/22/2022 Past medical History: Past [...] own residence. Surgeon has been communicating with Alex Trevizo. Patient is intubated at the moment. If AD's have not been completed Alex Trevizo would be surrogate decision maker per [place] surrogate decision making law. (Only good for 180 days) Any patient receiving care at [facility] [place] must abide by [place] law. The hierarchy for surrogate decision making [...] (i) The agent with financial power of pelts skinner or a conservator appointed in accordance with [...] confirmed as: Mailing address [address] [place] [id number] Unable to obtain home address for his new residence during this call. Social & Family Supports: All names listed below confirmed with patient as current and correct Extended Emergency Contact Information Primary Emergency Contact: XuJustin [facility] Mobile Relation: Spouse Secondary Emergency Contact: Alex Ochoa Mobile Relation: Child Mother: Ying Ochoa [facility] Current Care Provided by: self Provides Primary [...] SUPPLEMENT Prescription Coverage: Yes Preferred Pharmacy: [facility] [place] [address], [place] - [address] [address] Status: Patient is a : No Primary Care Provider: Vladimir Muñoz DO [phone] Patient/Caregiver Goals of Treatment: family wants to support patient in returning to his home Potential Needs for Transition of Care: none Agency Referrals: ESTEFANIA CHAVES and patient/entry level marketing representative discussed agencies which serve their preferred geographic area. affiliations were identified and they were educated about their right to choose where referrals are placed. Patient requests referral to [facility] in [place], [place] and [phone] Expected date of discharge:01/28/2022 Referral routed to the Mobile Sales Technician for matching with agency/vendor and to provide [...] with transition of care planning. Gala Matamoros online tutor M-Th Consult Note - Chris Barreto MD [...] Patient intubated at time of arrival to [facility]. 1212 blood pressure 122/73 P80 SpO2 [...] CATHERIZATION stent placement ? ? PRG CATH [facility] CORONARY ART W/INJ FOR ANGIO W/R HEART CATH IM S&I N/A 01/13/2022 CORONARY ANGIOGRAPHY; W RHC performed by Polo Beckham MD at [facility] CATH LABS ??? atorvastatin (Lipitor) tablet 80 [...] reduce the risk of reacting. Please page sales and leasing consultant customer account administrator with additional questions (see on-call schedule as it changes throughout the week). 2 hours were spent on consult in detailed record review, consultation with primary team, examinationof patient, and documentation. Chris Barreto MD [phone] Brief Op Note - Danny Jewell MD - 01/21/2022 11:59 AM EST Brief Operative Note Patient Name: Vinod Ochoa Jr. : [id number] MR#: [id number] Case Date: 01/21/2022 Surgeon: Surgeon(s) and Role: * Danny Jewell MD - Primary * Luiz Viramnotes PA - Physician Solderer Torch * Librado Cueva PA - Physician Solderer Torch Preoperative diagnosis: CAD Postoperative diagnosis: CAD, diffusely [...] 200 mL Drains: Mediastinal and pleural Disposition: [facility] Condition: Stable Attestation: Case Date: 01/21/2022 I was present and I participated during the entire procedure (does not need to include opening and closing). DANNY JEWELL MD 01/21/2022 Op Note - Danny Jewell MD - 01/21/2022 8:26 AM EST [facility] [facility] Operative Note Patient Name: Vinod Ochoa Jr. : [id number] MR#: [id number] Case Date: 01/21/2022 Surgeon: Surgeon(s) and Role: * Danny Jewell MD - Primary * Luiz Viramontes PA - Physician Solderer Torch * Librado Cueva PA - Physician Solderer Torch ?? Preoperative diagnosis: CAD ?? Postoperative diagnosis: [...] ?? Drains: Mediastinal and pleural ?? Disposition: [facility] Procedure Description: The patient was brought [...] 03/25/2022 Anesthesia Event Surgery Catrachita Baez MD [facility] ANESTHESIOLOGY [place], [place] [address] ([facility]) 12/15/2022 Office Visit Cardiology Damián Hart MD [facility] [address] [place] [address] ( jaya) 03/25/2050 Hospital Encounter Surgery Citlalli Richardson MD Vocal cord paralysis [facility] OTOLARYNGOLOGY [place], [place] [address] ( jaya) Scheduled Referrals Name Type Priority Associated Diagnoses [...] Routine 01/21/2022 7:35 Result s for this ([facility]/APD/[facility]) AM EST procedure are in the results section. TRANSESOPHAGEAL Routine 01/21/2022 7:18 Coronary artery Result s for this ECHOCARDIOGRAM IN THE AM EST disease involving p rocedure are in OR yocha dehe coronary the results artery of yocha dehe section. heart, unspecified whether angina present PREPARE RBC STAT 01/21/2022 6:35 Results for this AM EST procedure are i n the results section. POCT GLUCOSE Routine 01/21/2022 6:26 Results for this AM EST procedure are i n the results section. documented in this encounter Results POCT Glucose (01/31/2022 11:38 AM EDT) athologist Signature POC Glucose 149 65 - 199 [facility] mg/dL [facility] Comment: Supplemental ranges: <140 mg/dL before meals <180 mg/dL all other times of the day Specimen Anatomical Collection Method Collection Time Receive d Time (Source) Location / / Volume Laterality Blood 01/31/2022 11:38 01/31/2022 AM EDT 11:38 AM EDT Danny Jewell MD POINT OF CARE TEST ORDERABLE S Performing Organization Address City/State/[place] [address] POCT Glucose (01/31/2022 7:37 AM EDT) athologist Signature POC Glucose 141 65 - 199 [facility] mg/dL [facility] Comment: Supplemental ranges: <140 mg/dL before meals <180 mg/dL all other times of the day Specimen Anatomical Collection Method Collection Time Receive d Time (Source) Location / / Volume Laterality Blood 01/31/2022 7:37 AM 7:37 EDT AM EDT Danny Jewell MD POINT OF CARE TEST ORDERABLE S Performing Organization Address City/State/[place] [address] Potassium (01/31/2022 4:23 AM EDT) athologist Signature Potassium 3.7 3.5 - 5.0 [facility] mmol/L [facility] Comment: Please note: ??Patients with [...] Organization Address City/State/ZIP Code Phon e Number [address] POCT Glucose (01/30/2022 8:33 PM EDT) athologist Signature POC Glucose 132 65 - 199 [facility] mg/dL [facility] Comment: Supplemental ranges: <140 mg/dL before meals <180 mg/dL all other times of the day Specimen Anatomical Collection Method Collection Time Receive d Time (Source) Location / / Volume Laterality Blood 01/30/2022 8:33 PM 2 8:33 EDT PM EDT Danny Jewell MD POINT OF CARE TEST ORDERABLE S Performing Organization Address City/[facility]/[place] [address] POCT Glucose (01/30/2022 4:24 PM EDT) athologist Signature POC Glucose 154 65 - 199 [place] mg/dL [facility] Comment: Supplemental ranges: <140 mg/dL before meals <180 mg/dL all other times of the day Specimen Anatomical Collection Method Collection Time Receive d Time (Source) Location / / Volume Laterality Blood 01/30/2022 4:24 PM 2 4:24 EDT PM EDT Danny Jewell MD POINT OF CARE TEST ORDERABLE S Performing Organization Address City/State/[place] [address] POCT Glucose (01/30/2022 11:49 AM EDT) athologist Signature POC Glucose 158 65 - 199 [facility] mg/dL [facility] Comment: Supplemental ranges: <140 mg/dL before meals <180 mg/dL all other times of the day Specimen Anatomical Collection Method Collection Time Receive d Time (Source) Location / / Volume Laterality Blood 01/30/2022 11:49 01/30/2022 AM EDT 11:49 AM EDT Danny Jewell MD POINT OF CARE TEST ORDERABLE S Performing Organization Address City/State/[place] [address] Tryptase (01/30/2022 9:36 AM EDT) athologist Signature Tryptase 4.3 <=8.4 ng/mL [facility] Comment: Total tryptase concentrations that are p ersistently greater than 20 ng/mL may be consistent with systemic mastocytosis . Specimen Anatomical Collection Method Collection Time Receive d Time (Source) Location / / Volume Laterality Blood 01/30/2022 9:36 AM 2 7:33 EDT AM EDT Resulting Agency Comment Spec In Lab Danny Jewell MD CHEMISTRY ORDERABLES Performing Organization Address City/[facility]/ZIP Code Phon e Number [address] POCT Glucose (01/30/2022 7:30 AM EDT) athologist Signature POC Glucose 123 65 - 199 [facility] mg/dL [facility] Comment: Supplemental ranges: <140 mg/dL before meals <180 mg/dL all other times of the day Specimen Anatomical Collection Method Collection Time Receive d Time (Source) Location / / Volume Laterality Blood 01/30/2022 7:30 AM 2 7:30 EDT AM EDT Danny Jewell MD POINT OF CARE TEST ORDERABLE S Performing Organization Address City/State/[place] [address] (ABNORMAL) Potassium (01/30/2022 4:29 AM EDT) athologist Signature Potassium 3.2 (L) 3.5 - 5.0 [facility] mmol/L [facility] Comment: Please note: ??Patients with [...] Jewell MD CHEMISTRY ORDERABLES Performing Organization Address City/[facility]/[place] [address] [facility] [address] POCT Glucose (01/29/2022 7:11 PM EDT) athologist Signature POC Glucose 137 65 - 199 [place] mg/dL [facility] Comment: Supplemental ranges: <140 mg/dL before meals <180 mg/dL all other times of the day Specimen Anatomical Collection Method Collection Time Receive d Time (Source) Location / / Volume Laterality Blood 01/29/2022 7:11 PM 2 7:11 EDT PM EDT Danny Jewell MD POINT OF CARE TEST ORDERABLE S Performing Organization Address City/[facility]/[place] [address] POCT Glucose (01/29/2022 4:04 PM EDT) athologist Signature POC Glucose 146 65 - 199 [place] mg/dL [facility] Comment: Supplemental ranges: <140 mg/dL before meals <180 mg/dL all other times of the day Specimen Anatomical Collection Method Collection Time Receive d Time (Source) Location / / Volume Laterality Blood 01/29/2022 4:04 PM 2 4:04 EDT PM EDT Danny Jewell MD POINT OF CARE TEST ORDERABLE S Performing Organization Address City/[facility]/[place] [address] POCT Glucose (01/29/2022 11:40 AM EDT) athologist [facility] POC Glucose 167 65 - 199 [facility] mg/dL [facility] Comment: Supplemental ranges: <140 mg/dL before meals <180 mg/dL all other times of the day Specimen Anatomical Collection Method Collection Time Receive d Time (Source) Location / / Volume Laterality Blood 01/29/2022 11:40 01/29/2022 AM EDT 11:40 AM EDT Danny Jewell MD POINT OF CARE TEST ORDERABLE S Performing Organization Address City/State/ZIP Code Phon e Number [address] POCT Glucose (01/29/2022 7:32 AM EDT) athologist [facility] POC Glucose 141 65 - 199 [facility] mg/dL [facility] Comment: Supplemental ranges: <140 mg/dL before meals <180 mg/dL all other times of the day Specimen Anatomical Collection Method Collection Time Receive d Time (Source) Location / / Volume Laterality Blood 01/29/2022 7:32 AM 7:32 EDT AM EDT Danny Jewell MD POINT OF CARE TEST ORDERABLE S Performing Organization Address City/State/ZIP Code Phon e Number [address] Differential, Automated (01/29/2022 2:15 AM EDT) athologist [facility] Neutrophils % 70.5 % [facility] Neutr Abs (ANC) 5.95 1.70 - [facility] 6.10 [facility] x10(3)/[facility] LABORATORY Lymphocytes % 13.3 % [facility] Lymphocytes Abs 1.1 0.9 - 3.2 [facility] x10(3)/[facility] LABORATORY Monocytes % 11.0 % [facility] Monocyte Abs 0.9 0.3 - 0.9 [facility] x10(3)/[facility] LABORATORY Eosinophils % 4.1 % [facility] Eosinophils Abs 0.4 0.0 - 0.4 [facility] x10(3)/[facility] LABORATORY Basophils % 0.6 % [facility] Basophils Abs 0.0 0.0 - 0.1 [facility] x10(3)/[facility] LABORATORY Immature Gran % 0.50 % [facility] Comment: Immature granulocytes(IG's)percentage an d absolute count will include metamyelocytes, myelocytes, and promyelo cytes. Blood smears from CBCs yielding IG's will be scanned manually for concor dance. If this scan disagrees with the automated IG or if promyelocytes are not ed, a manual differential will be performed. Nikole Gran Abs 0.04 0.00 - 0.04 x10(3)/[facility] LABORATORY Specimen Anatomical Collection Method Collection Time Receive d Time (Source) Location / / Volume Laterality Blood 01/29/2022 2:15 AM 2 2:26 EDT AM EDT Resulting Agency Comment Spec In Lab Damián TOUSSAINT HEMATOLOGY ORDERABLES Performing Organization Address City/State/[place] [address] (ABNORMAL) Hemogram (01/29/2022 2:15 AM EDT) Analysis Performed At Patho logist Time Signature WBC 8.4 4.0 - 9.5 [facility] x10(3)/[facility] LABORATORY RBC 2.77 (L) 4.58 - [facility] 5.54 [facility] x10(6)/[facility] LABORATORY Hemoglobin 8.7 (L) 13.7 - [facility] 16.5 g/dL [facility] Hematocrit 25.6 (L) 40.5 - [facility] 48.5 % [facility] MCV 92.4 82.9 - [facility] 93.1 fL [facility] MCH 31.4 27.5 - [facility] 32.1 pg [facility] MCHC 34.0 32.0 - [facility] 35.7 g/dL [facility] Platelets 282 145 - 357 [facility] x10(3)/[facility] LABORATORY RDWSD 45.9 (H) 36.0 - [facility] [address] [facility] LABORATORY RDWCV 13.8 11.4 - [facility] 13.8 % [facility] MPV 9.3 7.6 - 12.9 [facility] LABORATORY nRBC % Auto 0.0 % [facility] nRBC Abs Auto 0.000 0.000 - [place] 0.000 [facility] x10(3)/[facility] LABORATORY Specimen Anatomical Collection Method Collection Time Receive d Time (Source) Location / / Volume Laterality Blood 01/29/2022 2:15 AM 2 2:26 EDT AM EDT Resulting Agency Comment Spec In Lab Damián TOUSSAINT HEMATOLOGY ORDERABLES Performing Organization Address City/State/ZIP Code Phon e Number [address] Potassium (01/29/2022 2:15 AM EDT) athologist Signature Potassium 3.8 3.5 - 5.0 [facility] mmol/L [facility] Comment: Please note: ??Patients with [...] Jewell MD CHEMISTRY ORDERABLES Performing Organization Address City/[facility]/ZIP Code Phon e Number [address] POCT Glucose (01/28/2022 9:23 PM EDT) athologist Signature POC Glucose 146 65 - 199 [facility] mg/dL [facility] Comment: Supplemental ranges: <140 mg/dL before meals <180 mg/dL all other times of the day Specimen Anatomical Collection Method Collection Time Receive d Time (Source) Location / / Volume Laterality Blood 01/28/2022 9:23 PM 2 9:23 EDT PM EDT Danny Jewell MD POINT OF CARE TEST ORDERABLE S Performing Organization Address City/State/[place] [address] POCT Glucose (01/28/2022 4:51 PM EDT) athologist Signature POC Glucose 177 65 - 199 [place] mg/dL [facility] Comment: Supplemental ranges: <140 mg/dL before meals <180 mg/dL all other times of the day Specimen Anatomical Collection Method Collection Time Receive d Time (Source) Location / / Volume Laterality Blood 01/28/2022 4:51 PM 2 4:51 EDT PM EDT Danny Jewell MD POINT OF CARE TEST ORDERABLE S Performing Organization Address City/State/[place] [address] POCT Glucose (01/28/2022 12:15 PM EDT) athologist Signature POC Glucose 150 65 - 199 [place] mg/dL [facility] Comment: Supplemental ranges: <140 mg/dL before meals <180 mg/dL all other times of the day Specimen Anatomical Collection Method Collection Time Receive d Time (Source) Location / / Volume Laterality Blood 01/28/2022 12:15 01/28/2022 PM EDT 12:15 PM EDT Danny Jewell MD POINT OF CARE TEST ORDERABLE S Performing Organization Address City/State/ZIP Code Phon e Number [address] POCT Glucose (01/28/2022 8:13 AM EDT) athologist Signature POC Glucose 135 65 - 199 [place] mg/dL [facility] Comment: Supplemental ranges: <140 mg/dL before meals <180 mg/dL all other times of the day Specimen Anatomical Collection Method Collection Time Receive d Time (Source) Location / / Volume Laterality Blood 01/28/2022 8:13 AM 2 8:13 EDT AM EDT Danny Jewell MD POINT OF CARE TEST ORDERABLE S Performing Organization Address City/[facility]/[place] [address] Potassium (01/28/2022 2:17 AM EDT) athologist Signature Potassium 3.5 3.5 - 5.0 [facility] mmol/L [facility] Comment: Please note: ??Patients with [...] Jewell MD CHEMISTRY ORDERABLES Performing Organization Address City/[facility]/[place] [address] POCT Glucose (01/27/2022 11:57 PM EDT) athologist Signature POC Glucose 141 65 - 199 [facility] mg/dL [facility] Comment: Supplemental ranges: <140 mg/dL before meals <180 mg/dL all other times of the day Specimen Anatomical Collection Method Collection Time Receive d Time (Source) Location / / Volume Laterality Blood 01/27/2022 11:57 01/27/2022 PM EDT 11:57 PM EDT Danny Jewell MD POINT OF CARE TEST ORDERABLE S Performing Organization Address City/[facility]/ZIP Code Phon e Number [address] POCT Glucose (01/27/2022 5:19 PM EDT) athologist Signature POC Glucose 147 65 - 199 [place] mg/dL [facility] Comment: Supplemental ranges: <140 mg/dL before meals <180 mg/dL all other times of the day Specimen Anatomical Collection Method Collection Time Receive d Time (Source) Location / / Volume Laterality Blood 01/27/2022 5:19 PM 2 5:19 EDT PM EDT Danny Jewell MD POINT OF CARE TEST ORDERABLE S Performing Organization Address City/[facility]/[place] [address] Potassium (01/27/2022 5:05 PM EDT) athologist Signature Potassium 3.9 3.5 - 5.0 [facility] mmol/L [facility] Comment: Please note: ??Patients with [...] Jewell MD CHEMISTRY ORDERABLES Performing Organization Address City/[facility]/ZIP Code Phon e Number [address] POCT Glucose (01/27/2022 12:29 PM EDT) athologist Signature POC Glucose 166 65 - 199 [facility] mg/dL [facility] Comment: Supplemental ranges: <140 mg/dL before meals <180 mg/dL all other times of the day Specimen Anatomical Collection Method Collection Time Receive d Time (Source) Location / / Volume Laterality Blood 01/27/2022 12:29 01/27/2022 PM EDT 12:29 PM EDT Danny Jewell MD POINT OF CARE TEST ORDERABLE S Performing Organization Address City/[facility]/[place] [address] XR Chest PA & [...] who have questions please contact the health personal care aid that requested your imaging first. ? Narrative [...] ho have questions please contact the health personal care aid that requested your imaging first. Danny Jewell MD IMG DX ORDERABLES Potassium (01/27/2022 9:50 AM EDT) athologist Signature Potassium 3.5 3.5 - 5.0 [facility] mmol/L [facility] Comment: Please note: ??Patients with [...] Organization Address City/State/[place] [address] (ABNORMAL) POCT Glucose (01/27/2022 8:28 AM EDT) athologist Signature POC Glucose 204 (H) 65 - 199 [facility] mg/dL [facility] Comment: Supplemental ranges: <140 mg/dL before meals <180 mg/dL all other times of the day Specimen Anatomical Collection Method Collection Time Receive d Time (Source) Location / / Volume Laterality Blood 01/27/2022 8:28 AM 2 8:28 EDT AM EDT Danny Jewell MD POINT OF CARE TEST ORDERABLE S Performing Organization Address City/State/[place] [address] (ABNORMAL) Basic Metabolic Panel (non-fasting) (01/27/2022 2:29 AM EDT) P athologist Signature Glucose Lvl 144 65 - 199 [facility] mg/dL [facility] Comment: Diabetes: >=200 mg/dL plus symp toms BUN 9 (L) 10 - 20 mg/dL [facility] Creatinine 0.81 0.80 - 1.50 mg/dL [facility] Sodium 138 135 - 145 mmol/L [facility] Potassium 3.6 3.5 - 5.0 mmol/L [facility] Comment: Please note: ??Patients with WBC >100,00 0 may have falsely elevated Potassium levels. ??For accurate Potassium quantif ication in these patients send serum separator tube (gold top) for subsequent determinations. ??Contact the Clinical Chemistry Laboratory if there are any qu estions. Chloride 103 98 - 107 mmol/L [facility] CO2 23 22 - 31 mmol/L [facility] Anion Gap 12 5 - 15 mmol/L [facility] Calcium 8.1 (L) 8.5 - 10.5 mg/dL [facility] Estimated GFR 92 >=60 mL/min/1.73 m?? [facility] Comment: This patient? s estimated [...] Jewell MD CHEMISTRY ORDERABLES Performing Organization Address City/[facility]/[place] [address] POCT Glucose (01/26/2022 9:54 PM EDT) athologist Signature POC Glucose 156 65 - 199 [facility] mg/dL [facility] Comment: Supplemental ranges: <140 mg/dL before meals <180 mg/dL all other times of the day Specimen Anatomical Collection Method Collection Time Receive d Time (Source) Location / / Volume Laterality Blood 01/26/2022 9:54 PM 2 9:54 EDT PM EDT Danny Jewell MD POINT OF CARE TEST ORDERABLE S Performing Organization Address [facility] [place] [address] Potassium (01/26/2022 3:20 PM EDT) athologist Signature Potassium 3.8 3.5 - 5.0 [facility] mmol/L [facility] Comment: Please note: ??Patients with [...] Resulting Agency Comment Spec In Lab Danny Jewlel MD CHEMISTRY ORDERABLES Performing Organization Address City/[facility]/ZIP [facility] Ph[place] e Number [address] POCT Glucose (01/26/2022 3:14 PM EDT) athologist Signature POC Glucose 114 65 - 199 [facility] Comment: Supplemental ranges: <140 mg/dL before meals <180 mg/dL all other times of the day Specimen Anatomical Collection Method Collection Time Receive d Time (Source) Location / / Volume Laterality Blood 01/26/2022 3:14 PM 2 3:14 EDT PM EDT Danny Jewell MD POINT OF CARE TEST ORDERABLE S Performing Organization Address City/[facility]/[place] [address] POCT Glucose (01/26/2022 11:18 AM EDT) athologist Signature POC Glucose 148 65 - 199 [facility]dL [facility] Comment: Supplemental ranges: <140 mg/dL before meals <180 mg/dL all other times of the day Specimen Anatomical Collection Method Collection Time Receive d Time (Source) Location / / Volume Laterality Blood 01/26/2022 11:18 01/26/2022 AM EDT 11:18 AM EDT Danny Jewell MD POINT OF CARE TEST ORDERABLE S Performing Organization Address City/[facility]/[place] [address] Potassium (01/26/2022 9:30 AM EDT) athologist Signature Potassium 3.5 3.5 - 5.0 [facility] mmol/L [facility] Comment: Please note: ??Patients with WBC >100,00 0 may have falsely elevated Potassium levels. ??For accurate Potassium quantif ication in these patients send serum separator tube (gold top) for subsequent determinations. ??Contact the Clinical Chemistry Laboratory if there are any qu estions. Specimen Anatomical Collection Method Collection Time Receive d Time (Source) Location / / Volume Laterality Blood 01/26/2022 9:30 AM 9:52 EDT AM EDT Resulting Agency Comment Spec In Lab Danny Jewell MD CHEMISTRY ORDERABLES Performing Organization Address City/[facility]/[place] [address] POCT Glucose (01/26/2022 8:51 AM EDT) athologist Signature POC Glucose 155 65 - 199 [facility] mg/dL [facility] Comment: Supplemental ranges: <140 mg/dL before meals <180 mg/dL all other times of the day Specimen Anatomical Collection Method Collection Time Receive d Time (Source) Location / / Volume Laterality Blood 01/26/2022 8:51 AM 2 8:51 EDT AM EDT Danny Jewell MD POINT OF CARE TEST ORDERABLE S Performing Organization Address City/State/ZIP Code Phon e Number [address] POCT Glucose (01/26/2022 6:25 AM EDT) athologist Signature POC Glucose 155 65 - 199 [facility] mg/dL [facility] Comment: Supplemental ranges: <140 mg/dL before meals <180 mg/dL all other times of the day Specimen Anatomical Collection Method Collection Time Receive d Time (Source) Location / / Volume Laterality Blood 01/26/2022 6:25 AM 2 6:25 EDT AM EDT Danny Jewell MD POINT OF CARE TEST ORDERABLE S Performing Organization Address City/State/[place] [address] POCT Glucose (01/26/2022 4:11 AM EDT) athologist Signature POC Glucose 149 65 - 199 [place] mg/dL [facility] Comment: Supplemental ranges: <140 mg/dL before meals <180 mg/dL all other times of the day Specimen Anatomical Collection Method Collection Time Receive d Time (Source) Location / / Volume Laterality Blood 01/26/2022 4:11 AM 2 4:11 EDT AM EDT Danny Jewell MD POINT OF CARE TEST ORDERABLE S Performing Organization Address City/State/[place] [address] POCT Glucose (01/26/2022 3:08 AM EDT) athologist Signature POC Glucose 159 65 - 199 [facility]dL [facility] Comment: Supplemental ranges: <140 mg/dL before meals <180 mg/dL all other times of the day Specimen Anatomical Collection Method Collection Time Receive d Time (Source) Location / / Volume Laterality Blood 01/26/2022 3:08 AM 2 3:08 EDT AM EDT Danny Jewell MD POINT OF CARE TEST ORDERABLE S Performing Organization Address City/State/[place] [address] (ABNORMAL) Basic Metabolic Panel (non-fasting) (01/26/2022 3:00 AM EDT) athologist Signature Glucose Lvl 140 65 - 199 [facility] mg/dL [facility] Comment: Diabetes: >=200 mg/dL plus symp toms BUN 10 10 - 20 mg/dL [facility] Creatinine 0.86 0.80 - 1.50 mg/dL [facility] Sodium 137 135 - 145 mmol/L [facility] Potassium 3.4 (L) 3.5 - 5.0 mmol/L [facility] Comment: Please note: ??Patients with WBC >100,00 0 may have falsely elevated Potassium levels. ??For accurate Potassium quantif ication in these patients send serum separator tube (gold top) for subsequent determinations. ??Contact the Clinical Chemistry Laboratory if there are any qu estions. Chloride 103 98 - 107 mmol/L [facility] CO2 23 22 - 31 mmol/L [facility] Anion Gap 11 5 - 15 mmol/L [facility] Calcium 7.9 (L) 8.5 - 10.5 mg/dL [facility] Estimated GFR 90 >=60 mL/min/1.73 m?? [facility] Comment: This patient? s estimated [...] Jewell MD CHEMISTRY ORDERABLES Performing Organization Address City/[facility]/ZIP [facility] e Number [address] POCT Glucose (01/25/2022 11:56 PM EST) athologist Signature POC Glucose 149 65 - 199 [facility]dL [facility] Comment: Supplemental ranges: <140 mg/dL before meals <180 mg/dL all other times of the day Specimen Anatomical Collection Method Collection Time Receive d Time (Source) Location / / Volume Laterality Blood 01/25/2022 11:56 01/25/2022 PM EST 11:56 PM EST Danny Jewell MD POINT OF CARE TEST ORDERABLE S Performing Organization Address City/State/ZIP [facility] Phon e Number [address] POCT Glucose (01/25/2022 9:45 PM EST) athologist Signature POC Glucose 146 65 - 199 [facility] mg[facility]dL [facility] Comment: Supplemental ranges: <140 mg/dL before meals <180 mg/dL all other times of the day Specimen Anatomical Collection Method Collection Time Receive d Time (Source) Location / / Volume Laterality Blood 01/25/2022 9:45 PM 9:45 EST PM EST Danny Jewell MD POINT OF CARE TEST ORDERABLE S Performing Organization Address City/State/[place] [address] POCT Glucose (01/25/2022 8:10 PM EST) athologist Signature POC Glucose 135 65 - 199 [place] mg/dL [facility] Comment: Supplemental ranges: <140 mg/dL before meals <180 mg/dL all other times of the day Specimen Anatomical Collection Method Collection Time Receive d Time (Source) Location / / Volume Laterality Blood 01/25/2022 8:10 PM 2 8:10 EST PM EST Danny Jewell MD POINT OF CARE TEST ORDERABLE S Performing Organization Address City/[facility]/ZIP Code Phon e Number [address] POCT Glucose (01/25/2022 5:59 PM EST) athologist Signature POC Glucose 146 65 - 199 [facility]dL [facility] Comment: Supplemental ranges: <140 mg/dL before meals <180 mg/dL all other times of the day Specimen Anatomical Collection Method Collection Time Receive d Time (Source) Location / / Volume Laterality Blood 01/25/2022 5:59 PM 2 5:59 EST PM EST Danny Jewell MD POINT OF CARE TEST ORDERABLE S Performing Organization Address City/State/[place] [address] POCT Glucose (01/25/2022 4:15 PM EST) athologist Signature POC Glucose 140 65 - 199 [facility] mg[facility]dL [facility] Comment: Supplemental ranges: <140 mg/dL before meals <180 mg/dL all other times of the day Specimen Anatomical Collection Method Collection Time Receive d Time (Source) Location / / Volume Laterality Blood 01/25/2022 4:15 PM 2 4:15 EST PM EST Danny Jewell MD POINT OF CARE TEST ORDERABLE S Performing Organization Address City/State/[place] [address] Potassium (01/25/2022 4:15 PM EST) athologist Signature Potassium 4.1 3.5 - 5.0 [facility] mmol/L [facility] Comment: Please note: ??Patients with WBC >100,00 0 may have falsely elevated Potassium levels. ??For accurate Potassium quantif ication in these patients send serum separator tube (gold top) for subsequent determinations. ??Contact the Clinical Chemistry Laboratory if there are any qu estions. Specimen Anatomical Collection Method Collection Time Receive d Time (Source) Location / / Volume Laterality Blood 01/25/2022 4:15 PM 4:31 EST PM EST Resulting Agency Comment Spec In Lab Danny Jewell MD CHEMISTRY ORDERABLES Performing Organization Address City/[facility]/[place] [address] Potassium (01/25/2022 12:30 PM EST) athologist Signature Potassium 3.8 3.5 - 5.0 [facility] mmol/[facility] Comment: Please note: ??Patients with WBC [...] Jewell MD CHEMISTRY ORDERABLES Performing Organization Address City/[facility]/ZIP Code Phon e Number [address] POCT Glucose (01/25/2022 12:27 PM EST) athologist Signature POC Glucose 149 65 - 199 [facility] Comment: Supplemental ranges: <140 mg/dL before meals <180 mg/dL all other times of the day Specimen Anatomical Collection Method Collection Time Receive d Time (Source) Location / / Volume Laterality Blood 01/25/2022 12:27 01/25/2022 PM EST 12:27 PM EST Danny Jewell MD POINT OF CARE TEST ORDERABLE S Performing Organization Address City/State/[place] [address] POCT Glucose (01/25/2022 10:16 AM EST) athologist Signature POC Glucose 146 65 - 199 [place] mg/dL [facility] Comment: Supplemental ranges: <140 mg/dL before meals <180 mg/dL all other times of the day Specimen Anatomical Collection Method Collection Time Receive d Time (Source) Location / / Volume Laterality Blood 01/25/2022 10:16 01/25/2022 AM EST 10:16 AM EST Danny Jewell MD POINT OF CARE TEST ORDERABLE S Performing Organization Address City/[facility]/[place] [address] POCT Glucose (01/25/2022 8:53 AM EST) athologist Signature POC Glucose 141 65 - 199 [facility] mg/dL [facility] Comment: Supplemental ranges: <140 mg/dL before meals <180 mg/dL all other times of the day Specimen Anatomical Collection Method Collection Time Receive d Time (Source) Location / / Volume Laterality Blood 01/25/2022 8:53 AM 8:53 EST AM EST Danny Jewell MD POINT OF CARE TEST ORDERABLE S Performing Organization Address City/State/[place] [address] (ABNORMAL) Potassium (01/25/2022 8:50 AM EST) athologist Signature Potassium 3.4 (L) 3.5 - 5.0 [facility]/L [facility] Comment: Please note: ??Patients with [...] Jewell MD CHEMISTRY ORDERABLES Performing Organization Address City/[facility]/ZIP Code Phon e Number [address] POCT Glucose (01/25/2022 8:10 AM EST) athologist Signature POC Glucose 138 65 - 199 [facility] Comment: Supplemental ranges: <140 mg/dL before meals <180 mg/dL all other times of the day Specimen Anatomical Collection Method Collection Time Receive d Time (Source) Location / / Volume Laterality Blood 01/25/2022 8:10 AM 2 8:10 EST AM EST Danny Jewell MD POINT OF CARE TEST ORDERABLE S Performing Organization Address City/[facility]/ZIP Code Phon e Number [address] POCT Glucose (01/25/2022 5:55 AM EST) athologist Signature POC Glucose 132 65 - 199 [facility] mg[facility]dL [facility] Comment: Supplemental ranges: <140 mg/dL before meals <180 mg/dL all other times of the day Specimen Anatomical Collection Method Collection Time Receive d Time (Source) Location / / Volume Laterality Blood 01/25/2022 5:55 AM 2 5:55 EST AM EST Danny Jewell MD POINT OF CARE TEST ORDERABLE S Performing Organization Address City/[facility]/ZIP Code Phon e Number [address] POCT Glucose (01/25/2022 4:04 AM EST) athologist Signature POC Glucose 124 65 - 199 [facility] mg/dL [facility] Comment: Supplemental ranges: <140 mg/dL before meals <180 mg/dL all other times of the day Specimen Anatomical Collection Method Collection Time Receive d Time (Source) Location / / Volume Laterality Blood 01/25/2022 4:04 AM 2 4:04 EST AM EST Danny Jewell MD POINT OF CARE TEST ORDERABLE S Performing Organization Address City/State/ZIP Code Phon e Number [address] POCT Glucose (01/25/2022 2:05 AM EST) athologist Signature POC Glucose 136 65 - 199 [facility] mg/dL [facility] Comment: Supplemental ranges: <140 mg/dL before meals <180 mg/dL all other times of the day Specimen Anatomical Collection Method Collection Time Receive d Time (Source) Location / / Volume Laterality Blood 01/25/2022 2:05 AM 2 2:05 EST AM EST Danny Jewell MD POINT OF CARE TEST ORDERABLE S Performing Organization Address City/State/[place] [address] (ABNORMAL) Basic Metabolic Panel (non-fasting) (01/25/2022 2:00 AM EST) athologist Signature Glucose Lvl 131 65 - 199 [facility] mg/dL [facility] Comment: Diabetes: >=200 mg/dL plus symp toms BUN 12 10 - 20 mg/dL [facility] Creatinine 0.88 0.80 - 1.50 mg/dL [facility] Sodium 142 135 - 145 mmol/L [facility] Potassium 3.3 (L) 3.5 - 5.0 mmol/L [facility] Comment: Please note: ??Patients with WBC >100,00 0 may have falsely elevated Potassium levels. ??For accurate Potassium quantif ication in these patients send serum separator tube (gold top) for subsequent determinations. ??Contact the Clinical Chemistry Laboratory if there are any qu estions. Chloride 108 (H) 98 - 107 mmol/L [facility] CO2 25 22 - 31 mmol/L [facility] Anion Gap 9 5 - 15 mmol/L [facility] Calcium 7.7 (L) 8.5 - 10.5 mg/dL [facility] Estimated GFR 89 >=60 mL/min/1.73 m?? [facility] Comment: This patient? s estimated [...] Organization Address City/State/ZIP Code Phon e Number [address] POCT Glucose (01/24/2022 11:52 PM EST) P athologist Signature POC Glucose 146 65 - 199 [facility] mg/dL [facility] Comment: Supplemental ranges: <140 mg/dL before meals <180 mg/dL all other times of the day Specimen Anatomical Collection Method Collection Time Receive d Time (Source) Location / / Volume Laterality Blood 01/24/2022 11:52 01/24/2022 PM EST 11:52 PM EST Danny Jewell MD POINT OF CARE TEST ORDERABLE S Performing Organization Address City/State/ZIP Code Phon e Number [address] POCT Glucose (01/24/2022 10:00 PM EST) athologist Signature POC Glucose 140 65 - 199 [place] mg/dL [facility] Comment: Supplemental ranges: <140 mg/dL before meals <180 mg/dL all other times of the day Specimen Anatomical Collection Method Collection Time Receive d Time (Source) Location / / Volume Laterality Blood 01/24/2022 10:00 01/24/2022 PM EST 10:00 PM EST Danny Jewell MD POINT OF CARE TEST ORDERABLE S Performing Organization Address City/State/[place] [address] POCT Glucose (01/24/2022 7:43 PM EST) athologist Signature POC Glucose 173 65 - 199 [facility]dL [facility] Comment: Supplemental ranges: <140 mg/dL before meals <180 mg/dL all other times of the day Specimen Anatomical Collection Method Collection Time Receive d Time (Source) Location / / Volume Laterality Blood 01/24/2022 7:43 PM 2 7:43 EST PM EST Danny Jewell MD POINT OF CARE TEST ORDERABLE S Performing Organization Address City/State/[place] [address] POCT Glucose (01/24/2022 6:53 PM EST) athologist Signature POC Glucose 183 65 - 199 [facility] mg[facility]dL [facility] Comment: Supplemental ranges: <140 mg/dL before meals <180 mg/dL all other times of the day Specimen Anatomical Collection Method Collection Time Receive d Time (Source) Location / / Volume Laterality Blood 01/24/2022 6:53 PM 2 6:53 EST PM EST Danny Jewell MD POINT OF CARE TEST ORDERABLE S Performing Organization Address City/State/[place] [address] Potassium (01/24/2022 4:45 PM EST) athologist Signature Potassium 3.8 3.5 - 5.0 [facility] mmol/L [facility] Comment: Please note: ??Patients with [...] Jewell MD CHEMISTRY ORDERABLES Performing Organization Address City/[facility]/[place] [address] (ABNORMAL) POCT Glucose (01/24/2022 4:38 PM EST) athologist Signature POC Glucose 216 (H) 65 - 199 [facility] mg/dL [facility] Comment: Supplemental ranges: <140 mg/dL before meals <180 mg/dL all other times of the day Specimen Anatomical Collection Method Collection Time Receive d Time (Source) Location / / Volume Laterality Blood 01/24/2022 4:38 PM 2 4:38 EST PM EST Danny Jewell MD POINT OF CARE TEST ORDERABLE S Performing Organization Address City/[facility]/[place] [address] (ABNORMAL) POCT Glucose (01/24/2022 4:02 PM EST) P athologist Signature POC Glucose 200 (H) 65 - 199 [facility] mg/dL [facility] Comment: Supplemental ranges: <140 mg/dL before meals <180 mg/dL all other times of the day Specimen Anatomical Collection Method Collection Time Receive d Time (Source) Location / / Volume Laterality Blood 01/24/2022 4:02 PM 2 4:02 EST PM EST Danny Jewell MD POINT OF CARE TEST ORDERABLE S Performing Organization Address City/[facility]/[place] [address] (ABNORMAL) POCT Glucose (01/24/2022 2:10 PM EST) P athologist Signature POC Glucose 218 (H) 65 - 199 [facility] mg/dL [facility] Comment: Supplemental ranges: <140 mg/dL before meals <180 mg/dL all other times of the day Specimen Anatomical Collection Method Collection Time Receive d Time (Source) Location / / Volume Laterality Blood 01/24/2022 2:10 PM 2 2:10 EST PM EST Danny Jewell MD POINT OF CARE TEST ORDERABLE S Performing Organization Address City/State/[place] [address] (ABNORMAL) POCT Glucose (01/24/2022 12:20 PM EST) athologist Signature POC Glucose 237 (H) 65 - 199 [facility] mg/dL [facility] Comment: Supplemental ranges: <140 mg/dL before meals <180 mg/dL all other times of the day Specimen Anatomical Collection Method Collection Time Receive d Time (Source) Location / / Volume Laterality Blood 01/24/2022 12:20 01/24/2022 PM EST 12:20 PM EST Danny Jewell MD POINT OF CARE TEST ORDERABLE S Performing Organization Address City/State/[place] [address] (ABNORMAL) BLOOD GAS 2 ARTERIAL (01/24/2022 9:43 AM EST) Analysis Performed At Patho logist Time Signature pH Art 7.42 7.35 - [facility] 7.45 [facility] pCO2 Art 38 35 - 45 [facility] mmHg [facility] pO2 Art 65 (L) 85 - 104 [facility] LABORATORY HCO3 Art 24.5 20.0 - [facility] 26.0 [facility] mmol/L [facility] BE Art 0.0 -3.0 - 3.0 [facility] mmol/L [facility] Hgb Blood Gas 9.2 (L) 13.7 - [facility] 16.5 g/dL [facility] O2HB Art 91.0 (L) 94.0 - [facility] 97.0 % [facility] COHB Art 0.3 % [facility] Comment: Nonsmokers: 0.5-1.5% COHB Smokers: Variable, but usually less than 10% Toxic: 20-30% COHB Lethal: Greater than 60% COHB METHB Art 0.9 <=1.5 % [facility] Na Whole Blood 134 (L) 135 - 145 mmol/L [facility] K Whole Blood 3.6 3.5 - 5.0 mmol/L [facility] Comment: Please note: Patients with WBC >100,000 may have falsely elevated Potassium levels. Contact the Clinical Chemistry L aboratory if there are any questions. ICa Whole Blood 1.16 1.15 - 1.33 mmol/L [facility] Comment: Note: ??Total bilirubin higher than 20 m g/dL may lead to falsely low ionized calcium. CL Whole Blood 106 98 - 107 mmol/L [facility] Gluc Whole Bld 193 65 - 199 mg/dL [facility] Comment: Diabetes: >=200 mg/dL plus symp toms. Lactate WB 1.2 0.5 - 2.2 mmol/L [facility] FIO2 Art 40 % [facility] PF Ratio Art 162 [facility] Specimen Anatomical Collection Method Collection Time Receive d Time (Source) Location / / Volume Laterality Blood 01/24/2022 9:43 AM 9:43 EST AM EST Danny Jewell MD CHEMISTRY ORDERABLES Performing Organization Address City/State/[place] [address] Potassium (01/24/2022 9:43 AM EST) P athologist Signature Potassium 3.6 3.5 - 5.0 [facility] mmol/L [facility] Comment: Please note: ??Patients with [...] Organization Address City/State/ZIP Code Phon e Number [address] POCT Glucose (01/24/2022 8:26 AM EST) P athologist Signature POC Glucose 132 65 - 199 [facility] mg/dL [facility] Comment: Supplemental ranges: <140 mg/dL before meals <180 mg/dL all other times of the day Specimen Anatomical Collection Method Collection Time Receive d Time (Source) Location / / Volume Laterality Blood 01/24/2022 8:26 AM 2 8:26 EST AM EST Danny Jewell MD POINT OF CARE TEST ORDERABLE S Performing Organization Address City/State/ZIP Code Phon e Number [address] COVID-19 PCR (01/24/2022 6:23 AM EST) Patholo gist Method Time Signature SARS-CoV-2 Not Detected Not Detected GABRIELLE RNA [facility] Comment: This result should [...] diagnosis of COVID-19 is performed using the [employer] [place] CRISTINE S-CoV-2 Assay as authorized by the FDA Emergency Use Authorization (EUA). This EUA assay is intended for In-vitro Diagnostic (IVD) use with respiratory sp ecimens such as nasopharyngeal swabs collected from individuals during the ac [place] phase of infection. This assay is performed based on the instructions for use provided by [employer] and additional guidance provided by CDC [...] fact sheets at the following FDA website: https://www.fda.gov/medical-devices/xjnfajaujww-pixdlpi-8418-qyyxd-45-rpbnipbid- shm-iewivtidszqxsc-pngjotv-devices/hofpu-mcfpymjbpks-zpxf SARS-Cov-2 RNA Source [employer] Swab [facility] Specimen (Source) Anatomical Collection Method Collection Time Re ceived Time Location / / Volume Laterality Nasopharyngeal Swab 01/24/2022 6:23 01/24 AM EST 7:27 AM EST Comment: Symptoms->Surveillance Resulting Agency Comment Spec In Lab Danny Jewell MD MICROBIOLOGY - GENERAL ORDER CATHY Performing Organization Address City/[facility]/[place] [address] POCT Glucose (01/24/2022 6:07 AM EST) P athologist Signature POC Glucose 160 65 - 199 [facility] mg/dL [facility] Comment: Supplemental ranges: <140 mg/dL before meals <180 mg/dL all other times of the day Specimen Anatomical Collection Method Collection Time Receive d Time (Source) Location / / Volume Laterality Blood 01/24/2022 6:07 AM 6:07 EST AM EST Danny Jewell MD POINT OF CARE TEST ORDERABLE S Performing Organization Address City/[facility]/[place] [address] (ABNORMAL) Blood Gas Arterial (01/24/2022 6:06 AM EST) Analysis Performed At Patho logist Time Signature pH Art 7.47 (H) 7.35 - [facility] 7.45 [facility] pCO2 Art 30 (L) 35 - 45 [facility] mmHg [facility] pO2 Art 95 85 - 104 [facility] LABORATORY HCO3 Art 21.2 20.0 - [facility] 26.0 [facility] mmol/L [facility] BE Art -2.4 -3.0 - 3.0 [facility] mmol/L [facility] Hgb Blood Gas 8.9 (L) 13.7 - [facility] 16.5 g/dL [facility] O2HB Art 96.1 94.0 - [facility] 97.0 % [facility] COHB Art 0.3 % [facility] Comment: Nonsmokers: ??0.5-1.5% COHB Smokers: ??Variable, but usually less th an 10% Toxic: 20 - 30% COHB Lethal: ??Greater than 60% COHB METHB Art 0.3 <=1.5 % [facility] Na Whole Blood 136 135 - 145 mmol/L [facility] K Whole Blood 3.6 3.5 - 5.0 mmol/L [facility] Comment: Please note: ??Patients with WBC >100,00 0 may have falsely elevated Potassium levels. ??Contact the Clinical Chemistry Laboratory if there are any questions. ICa Whole Blood 1.12 (L) 1.15 - 1.33 mmol/L [facility] Comment: Note: ??Total bilirubin higher than 20 m g/dL may lead to falsely low ionized calcium. CL Whole Blood 108 (H) 98 - 107 mmol/L [facility] Gluc Whole Bld 146 65 - 199 mg/dL [facility] Comment: Diabetes: >=200 mg/dL plus symp toms. Lactate WB 1.1 0.5 - 2.2 mmol/L [facility] Specimen Anatomical Collection Method Collection Time Receive d Time (Source) Location / / Volume Laterality Blood Arterial Draw / 01/24/2022 6:06 AM 2021 6:18 Unknown EST AM EST Resulting Agency Comment Spec In Lab Damián TOUSSAINT CHEMISTRY ORDERABLES Performing Organization Address City/State/[place] [address] POCT Glucose (01/24/2022 3:55 AM EST) P athologist Signature POC Glucose 169 65 - 199 [facility] mg/dL [facility] Comment: Supplemental ranges: <140 mg/dL before meals <180 mg/dL all other times of the day Specimen Anatomical Collection Method Collection Time Receive d Time (Source) Location / / Volume Laterality Blood 01/24/2022 3:55 AM 3:55 EST AM EST Danny Jewell MD POINT OF CARE TEST ORDERABLE S Performing Organization Address City/State/[place] [address] (ABNORMAL) Basic Metabolic Panel (non-fasting) (01/24/2022 2:30 AM EST) P athologist Signature Glucose Lvl 156 65 - 199 [facility] mg/dL [facility] Comment: Diabetes: >=200 mg/dL plus symp toms BUN 18 10 - 20 mg/dL [facility] Creatinine 1.15 0.80 - 1.50 mg/dL [facility] Comment: result rechecked-bm Sodium 141 135 - 145 mmol/L [facility] Potassium 3.4 (L) 3.5 - 5.0 mmol/L [facility] Comment: Please note: ??Patients with WBC >100,00 0 may have falsely elevated Potassium levels. ??For accurate Potassium quantif ication in these patients send serum separator tube (gold top) for subsequent determinations. ??Contact the Clinical Chemistry Laboratory if there are any qu estions. Chloride 108 (H) 98 - 107 mmol/L [facility] CO2 24 22 - 31 mmol/L [facility] Anion Gap 9 5 - 15 mmol/L [facility] Calcium 7.7 (L) 8.5 - 10.5 mg/dL [facility] Estimated GFR 65 >=60 mL/min/1.73 m?? [facility] Comment: This patient? s estimated [...] Jewell MD CHEMISTRY ORDERABLES Performing Organization Address City/[facility]/ZIP Code Phon e Number [address] POCT Glucose (01/24/2022 2:02 AM EST) athologist Signature POC Glucose 169 65 - 199 [facility] mg/dL [facility] Comment: Supplemental ranges: <140 mg/dL before meals <180 mg/dL all other times of the day Specimen Anatomical Collection Method Collection Time Receive d Time (Source) Location / / Volume Laterality Blood 01/24/2022 2:02 AM 2 2:02 EST AM EST Danny Jewell MD POINT OF CARE TEST ORDERABLE S Performing Organization Address City/[facility]/ZIP Code Phon e Number [address] POCT Glucose (01/24/2022 12:59 AM EST) athologist Signature POC Glucose 160 65 - 199 [facility] mg/dL [facility] Comment: Supplemental ranges: <140 mg/dL before meals <180 mg/dL all other times of the day Specimen Anatomical Collection Method Collection Time Receive d Time (Source) Location / / Volume Laterality Blood 01/24/2022 12:59 01/24/2022 AM EST 12:59 AM EST Danny Jewell MD POINT OF CARE TEST ORDERABLE S Performing Organization Address City/[facility]/ZIP Code Phon e Number [address] POCT Glucose (01/23/2022 11:56 PM EST) athologist Signature POC Glucose 179 65 - 199 [facility] mg/dL [facility] Comment: Supplemental ranges: <140 mg/dL before meals <180 mg/dL all other times of the day Specimen Anatomical Collection Method Collection Time Receive d Time (Source) Location / / Volume Laterality Blood 01/23/2022 11:56 01/23/2022 PM EST 11:56 PM EST Danny Jewell MD POINT OF CARE TEST ORDERABLE S Performing Organization Address City/State/ZIP Code Phon e Number [address] POCT Glucose (01/23/2022 10:01 PM EST) P athologist Signature POC Glucose 167 65 - 199 [facility] Comment: Supplemental ranges: <140 mg/dL before meals <180 mg/dL all other times of the day Specimen Anatomical Collection Method Collection Time Receive d Time (Source) Location / / Volume Laterality Blood 01/23/2022 10:01 01/23/2022 PM EST 10:01 PM EST Danny Jewell MD POINT OF CARE TEST ORDERABLE S Performing Organization Address City/State/ZIP Code Phon e Number [address] POCT Glucose (01/23/2022 8:49 PM EST) athologist Signature POC Glucose 167 65 - 199 [facility] Comment: Supplemental ranges: <140 mg/dL before meals <180 mg/dL all other times of the day Specimen Anatomical Collection Method Collection Time Receive d Time (Source) Location / / Volume Laterality Blood 01/23/2022 8:49 PM 8:49 EST PM EST Danny Jewell MD POINT OF CARE TEST ORDERABLE S Performing Organization Address City/State/[place] [address] (ABNORMAL) BLOOD GAS 2 ARTERIAL (01/23/2022 5:33 PM EST) Analysis Performed At Patho logist Time Signature pH Art 7.48 (H) 7.35 - [facility] 7.45 [facility] pCO2 Art 31 (L) 35 - 45 [facility] LABORATORY pO2 Art 87 85 - 104 [facility] LABORATORY HCO3 Art 22.2 20.0 - [facility] 26.0 [facility] mmol/L [facility] BE Art -1.3 -3.0 - 3.0 [facility] mmol/L [facility] Hgb Blood Gas 8.6 (L) 13.7 - [facility] 16.5 g/dL [facility] O2HB Art 94.6 94.0 - [facility] 97.0 % [facility] COHB Art 0.3 % [facility] Comment: Nonsmokers: 0.5-1.5% COHB Smokers: Variable, but usually less than 10% Toxic: 20-30% COHB Lethal: Greater than 60% COHB METHB Art 0.9 <=1.5 % [facility] Na Whole Blood 136 135 - 145 mmol/L [facility] K Whole Blood 3.4 (L) 3.5 - 5.0 mmol/L [facility] Comment: Please note: Patients with WBC >100,000 may have falsely elevated Potassium levels. Contact the Clinical Chemistry L aboratory if there are any questions. ICa Whole Blood 1.14 (L) 1.15 - 1.33 mmol/L [facility] Comment: Note: ??Total bilirubin higher than 20 m g/dL may lead to falsely low ionized calcium. CL Whole Blood 105 98 - 107 mmol/L [facility] Gluc Whole Bld 127 65 - 199 mg/dL [facility] Comment: Diabetes: >=200 mg/dL plus symp toms. Lactate WB 1.1 0.5 - 2.2 mmol/L [facility] FIO2 Art 40 % [facility] PF Ratio Art 218 [facility] Specimen Anatomical Collection Method Collection Time Receive d Time (Source) Location / / Volume Laterality Blood 01/23/2022 5:33 PM 5:33 EST PM EST Danny Jewell MD CHEMISTRY ORDERABLES Performing Organization Address City/State/[place] [address] Potassium (01/23/2022 5:33 PM EST) P athologist Signature Potassium 3.6 3.5 - 5.0 [facility] mmol/L [facility] Comment: Please note: ??Patients with [...] Organization Address City/State/[place] [address] POCT Glucose (01/23/2022 3:57 PM EST) athologist Signature POC Glucose 134 65 - 199 [facility] Comment: Supplemental ranges: <140 mg/dL before meals <180 mg/dL all other times of the day Specimen Anatomical Collection Method Collection Time Receive d Time (Source) Location / / Volume Laterality Blood 01/23/2022 3:57 PM 2 3:57 EST PM EST Danny Jewell MD POINT OF CARE TEST ORDERABLE S Performing Organization Address City/State/[place] [address] POCT Glucose (01/23/2022 2:20 PM EST) athologist Signature POC Glucose 122 65 - 199 [facility] Comment: Supplemental ranges: <140 mg/dL before meals <180 mg/dL all other times of the day Specimen Anatomical Collection Method Collection Time Receive d Time (Source) Location / / Volume Laterality Blood 01/23/2022 2:20 PM 2 2:20 EST PM EST Danny Jewell MD POINT OF CARE TEST ORDERABLE S Performing Organization Address City/State/[place] [address] POCT Glucose (01/23/2022 1:27 PM EST) athologist Signature POC Glucose 125 65 - 199 [facility] mg/dL [facility] Comment: Supplemental ranges: <140 mg/dL before meals <180 mg/dL all other times of the day Specimen Anatomical Collection Method Collection Time Receive d Time (Source) Location / / Volume Laterality Blood 01/23/2022 1:27 PM 1:27 EST PM EST Danny Jewell MD POINT OF CARE TEST ORDERABLE S Performing Organization Address City/State/[place] [address] POCT Glucose (01/23/2022 12:50 PM EST) athologist Signature POC Glucose 117 65 - 199 [facility] mg/dL [facility] Comment: Supplemental ranges: <140 mg/dL before meals <180 mg/dL all other times of the day Specimen Anatomical Collection Method Collection Time Receive d Time (Source) Location / / Volume Laterality Blood 01/23/2022 12:50 01/23/2022 PM EST 12:50 PM EST Danny Jewell MD POINT OF CARE TEST ORDERABLE S Performing Organization Address City/State/ZIP Code Phon e Number [address] POCT Glucose (01/23/2022 10:37 AM EST) athologist Signature POC Glucose 142 65 - 199 [facility] mg/dL [facility] Comment: Supplemental ranges: <140 mg/dL before meals <180 mg/dL all other times of the day Specimen Anatomical Collection Method Collection Time Receive d Time (Source) Location / / Volume Laterality Blood 01/23/2022 10:37 01/23/2022 AM EST 10:37 AM EST Danny Jewell MD POINT OF CARE TEST ORDERABLE S Performing Organization Address City/State/ZIP Code Phon e Number [address] POCT Glucose (01/23/2022 7:55 AM EST) athologist Signature POC Glucose 146 65 - 199 [facility] mg/dL [facility] Comment: Supplemental ranges: <140 mg/dL before meals <180 mg/dL all other times of the day Specimen Anatomical Collection Method Collection Time Receive d Time (Source) Location / / Volume Laterality Blood 01/23/2022 7:55 AM 7:55 EST AM EST Danny Jewell MD POINT OF CARE TEST ORDERABLE S Performing Organization Address City/State/ZIP Code Phon e Number [place] [id number] Drive (ABNORMAL) Differential, Automated (01/23/2022 6:10 AM EST) [facility] gist Method Time Signature Neutrophils % 82.9 % [facility] Neutr Abs (ANC) 8.47 (H) 1.70 - [facility] 6.10 [facility] x10(3)/[facility] LABORATORY Lymphocytes % 8.2 % [facility] Lymphocytes Abs 0.8 (L) 0.9 - 3.2 [facility] x10(3)/[facility] LABORATORY Monocytes % 7.8 % [facility] Monocyte Abs 0.8 0.3 - 0.9 [facility] x10(3)/[facility] LABORATORY Eosinophils % 0.2 % [facility] Eosinophils Abs 0.0 0.0 - 0.4 [facility] x10(3)/[facility] LABORATORY Basophils % 0.2 % [facility] Basophils Abs 0.0 0.0 - 0.1 [facility] x10(3)/[facility] LABORATORY Immature Gran % 0.70 % [facility] Comment: Immature granulocytes(IG's)percentage an d absolute count will include metamyelocytes, myelocytes, and promyelo cytes. Blood smears from CBCs yielding IG's will be scanned manually for concor dance. If this scan disagrees with the automated IG or if promyelocytes are not ed, a manual differential will be performed. Nikole Gran Abs 0.07 (H) 0.00 - 0.04 x10(3)/[facility] LABORATORY Specimen Anatomical Collection Method Collection Time Receive d Time (Source) Location / / Volume Laterality Blood 01/23/2022 6:10 AM 2 6:55 EST AM EST Resulting Agency Comment Spec In Lab Damián TOUSSAINT HEMATOLOGY ORDERABLES Performing Organization Address City/State/[place] [address] (ABNORMAL) Hemogram (01/23/2022 6:10 AM EST) P athologist Signature WBC 10.2 (H) 4.0 - 9.5 [facility] x10(3)/[facility] LABORATORY RBC 2.56 (L) 4.58 - [facility] 5.54 [facility] x10(6)/[facility] LABORATORY Hemoglobin 8.2 (L) 13.7 - [facility] 16.5 g/dL [facility] Comment: This result has been called to RICHARD BRUNO by Rigoberto Brown on 01 23 2022 at 0821, and has been read back. Hematocrit 22.6 (L) 40.5 - 48.5 % [facility] MCV 88.3 82.9 - 93.1 fL [facility] MCH 32.0 27.5 - 32.1 pg [facility] MCHC 36.3 (H) 32.0 - 35.7 g/dL [facility] Platelets 129 (L) 145 - 357 x10(3)/[facility] LABORATORY RDWSD 43.8 36.0 - 45.0 fL [facility] RDWCV 13.8 11.4 - 13.8 % [facility] LABORATORY MPV 10.1 7.6 - 12.9 fL [facility] nRBC % Auto 0.0 % [facility] LABORATORY nRBC Abs Auto 0.000 0.000 - 0.000 x10(3)/[facility] LABORATORY Specimen Anatomical Collection Method Collection Time Receive d Time (Source) Location / / Volume Laterality Blood 01/23/2022 6:10 AM 2 6:55 EST AM EST Resulting Agency Comment Spec In Lab Damián TOUSSAINT HEMATOLOGY ORDERABLES Performing Organization Address City/State/[place] [address] (ABNORMAL) BLOOD GAS 2 ARTERIAL (01/23/2022 6:08 AM EST) Analysis Performed At Patho logist Time Signature pH Art 7.38 7.35 - [facility] 7.45 [facility] pCO2 Art 37 35 - 45 [facility] mmHg [facility] pO2 Art 92 85 - 104 [facility] LABORATORY HCO3 Art 21.2 20.0 - [facility] 26.0 [facility] mmol/L [facility] LABORATORY BE Art -3.9 (L) -3.0 - 3.0 [facility] mmol/L [facility] Hgb Blood Gas 8.7 (L) 13.7 - [facility] 16.5 g/dL [facility] O2HB Art 95.5 94.0 - [facility] 97.0 % [facility] COHB Art 0.0 % [facility] Comment: Nonsmokers: 0.5-1.5% COHB Smokers: Variable, but usually less than 10% Toxic: 20-30% COHB Lethal: Greater than 60% COHB METHB Art 0.6 <=1.5 % [facility] Na Whole Blood 129 (L) 135 - 145 mmol/L [facility] K Whole Blood 3.8 3.5 - 5.0 mmol/L [facility] Comment: Please note: Patients with WBC >100,000 may have falsely elevated Potassium levels. Contact the Clinical Chemistry L aboratory if there are any questions. ICa Whole Blood 1.06 (L) 1.15 - 1.33 mmol/L [facility] Comment: Note: ??Total bilirubin higher than 20 m g/dL may lead to falsely low ionized calcium. CL Whole Blood 105 98 - 107 mmol/L [facility] Gluc Whole Bld 157 65 - 199 mg/dL [facility] Comment: Diabetes: >=200 mg/dL plus symp toms. Lactate WB 1.8 0.5 - 2.2 mmol/L [facility] LABORATORY FIO2 Art 50 % [facility] PF Ratio Art 184 [facility] Specimen Anatomical Collection Method Collection Time Receive d Time (Source) Location / / Volume Laterality Blood 01/23/2022 6:08 AM 2 6:08 EST AM EST Danny Jewell MD CHEMISTRY ORDERABLES Performing Organization Address City/State/ZIP Code Phon e Number [address] POCT Glucose (01/23/2022 5:13 AM EST) athologist Signature POC Glucose 178 65 - 199 [facility] mg/dL [facility] Comment: Supplemental ranges: <140 mg/dL before meals <180 mg/dL all other times of the day Specimen Anatomical Collection Method Collection Time Receive d Time (Source) Location / / Volume Laterality Blood 01/23/2022 5:13 AM 2 5:13 EST AM EST Danny Jewell MD POINT OF CARE TEST ORDERABLE S Performing Organization Address City/State/ZIP Code Phon e Number [address] POCT Glucose (01/23/2022 3:25 AM EST) athologist Signature POC Glucose 184 65 - 199 [facility] mg/dL [facility] Comment: Supplemental ranges: <140 mg/dL before meals <180 mg/dL all other times of the day Specimen Anatomical Collection Method Collection Time Receive d Time (Source) Location / / Volume Laterality Blood 01/23/2022 3:25 AM 2 3:25 EST AM EST Danny Jewell MD POINT OF CARE TEST ORDERABLE S Performing Organization Address City/[facility]/ZIP Code Phon e Number [address] (ABNORMAL) Basic Metabolic Panel (non-fasting) (01/23/2022 2:00 AM EST) athologist Signature Glucose Lvl 193 65 - 199 [facility] mg/dL [facility] Comment: Diabetes: >=200 mg/dL plus symp toms BUN 25 (H) 10 - 20 mg/dL [facility] Creatinine 2.06 (H) 0.80 - 1.50 mg/dL [facility]ORY Sodium 135 135 - 145 mmol/L [facility] Potassium 4.5 3.5 - 5.0 mmol/L [facility] Comment: Please note: ??Patients with WBC >100,00 0 may have falsely elevated Potassium levels. ??For accurate Potassium quantif ication in these patients send serum separator tube (gold top) for subsequent determinations. ??Contact the Clinical Chemistry Laboratory if there are any qu estions. Chloride 104 98 - 107 mmol/L [facility] CO2 20 (L) 22 - 31 mmol/L [facility] Anion Gap 11 5 - 15 mmol/L [facility] Calcium 7.8 (L) 8.5 - 10.5 mg/dL [facility] Estimated GFR 32 (L) >=60 mL/min/1.73 m?? [facility] Comment: This patient? s estimated [...] Organization Address City/State/[place] [address] POCT Glucose (01/23/2022 1:58 AM EST) P athologist Signature POC Glucose 194 65 - 199 [facility] Comment: Supplemental ranges: <140 mg/dL before meals <180 mg/dL all other times of the day Specimen Anatomical Collection Method Collection Time Receive d Time (Source) Location / / Volume Laterality Blood 01/23/2022 1:58 AM 2 1:58 EST AM EST Danny Jewell MD POINT OF CARE TEST ORDERABLE S Performing Organization Address City/State/ZIP Code Phon e Number [address] POCT Glucose (01/23/2022 1:08 AM EST) athologist Signature POC Glucose 193 65 - 199 [facility]/dL [facility] Comment: Supplemental ranges: <140 mg/dL before meals <180 mg/dL all other times of the day Specimen Anatomical Collection Method Collection Time Receive d Time (Source) Location / / Volume Laterality Blood 01/23/2022 1:08 AM 2 1:08 EST AM EST Danny Jewell MD POINT OF CARE TEST ORDERABLE S Performing Organization Address City/State/[place] [address] (ABNORMAL) BLOOD GAS 2 ARTERIAL (01/22/2022 11:58 PM EST) Analysis Performed At Patho logist Time Signature pH Art 7.38 7.35 - [facility] 7.45 [facility] pCO2 Art 35 35 - 45 [facility] mmHg [facility] pO2 Art 94 85 - 104 [facility] mmHg [facility] HCO3 Art 20.3 20.0 - [facility] 26.0 [facility] mmol/L [facility] LABORATORY BE Art -4.8 (L) -3.0 - 3.0 [facility] mmol/L [facility] Hgb Blood Gas 9.5 (L) 13.7 - [facility] 16.5 g/dL [facility] O2HB Art 95.3 94.0 - [facility] 97.0 % [facility] COHB Art 0.2 % [facility] Comment: Nonsmokers: 0.5-1.5% COHB Smokers: Variable, but usually less than 10% Toxic: 20-30% COHB Lethal: Greater than 60% COHB METHB Art 0.8 <=1.5 % [facility] Na Whole Blood 130 (L) 135 - 145 mmol/L [facility] K Whole Blood 4.3 3.5 - 5.0 mmol/L [facility] Comment: Please note: Patients with WBC >100,000 may have falsely elevated Potassium levels. Contact the Clinical Chemistry L aboratory if there are any questions. ICa Whole Blood 1.08 (L) 1.15 - 1.33 mmol/L [facility] Comment: Note: ??Total bilirubin higher than 20 m g/dL may lead to falsely low ionized calcium. CL Whole Blood 104 98 - 107 mmol/L [facility] Gluc Whole Bld 171 65 - 199 mg/dL [facility] Comment: Diabetes: >=200 mg/dL plus symp toms. Lactate WB 1.3 0.5 - 2.2 mmol/L [facility] FIO2 Art 50 % [facility] PF Ratio Art 188 [facility] Specimen Anatomical Collection Method Collection Time Receive d Time (Source) Location / / Volume Laterality Blood 01/22/2022 11:58 01/22/2022 PM EST 11:58 PM EST Danny Jewell MD CHEMISTRY ORDERABLES Performing Organization Address City/State/[place] [address] POCT Glucose (01/22/2022 11:41 PM EST) P athologist Signature POC Glucose 193 65 - 199 [facility] mg/dL [facility] Comment: Supplemental ranges: <140 mg/dL before meals <180 mg/dL all other times of the day Specimen Anatomical Collection Method Collection Time Receive d Time (Source) Location / / Volume Laterality Blood 01/22/2022 11:41 01/22/2022 PM EST 11:41 PM EST Danny Jewell MD POINT OF CARE TEST ORDERABLE S Performing Organization Address City/State/ZIP Code Phon e Number [address] POCT Glucose (01/22/2022 10:48 PM EST) athologist Signature POC Glucose 147 65 - 199 [place] [facility] mg/dL [facility] Comment: Supplemental ranges: <140 mg/dL before meals <180 mg/dL all other times of the day Specimen Anatomical Collection Method Collection Time Receive d Time (Source) Location / / Volume Laterality Blood 01/22/2022 10:48 01/22/2022 PM EST 10:48 PM EST Danny Jewell MD POINT OF CARE TEST ORDERABLE S Performing Organization Address City/State/[place] [address] POCT Glucose (01/22/2022 9:44 PM EST) athologist Signature POC Glucose 136 65 - 199 [place] mg/dL [facility] Comment: Supplemental ranges: <140 mg/dL before meals <180 mg/dL all other times of the day Specimen Anatomical Collection Method Collection Time Receive d Time (Source) Location / / Volume Laterality Blood 01/22/2022 9:44 PM 2 9:44 EST PM EST Danny Jewell MD POINT OF CARE TEST ORDERABLE S Performing Organization Address City/State/[place] [address] POCT Glucose (01/22/2022 8:52 PM EST) athologist Signature POC Glucose 111 65 - 199 [place] mg/dL [facility] Comment: Supplemental ranges: <140 mg/dL before meals <180 mg/dL all other times of the day Specimen Anatomical Collection Method Collection Time Receive d Time (Source) Location / / Volume Laterality Blood 01/22/2022 8:52 PM 2 8:52 EST PM EST Danny Jewell MD POINT OF CARE TEST ORDERABLE S Performing Organization Address City/State/ZIP Code Phon e Number [address] POCT Glucose (01/22/2022 8:01 PM EST) P athologist Signature POC Glucose 120 65 - 199 [facility] mg/dL [facility] Comment: Supplemental ranges: <140 mg/dL before meals <180 mg/dL all other times of the day Specimen Anatomical Collection Method Collection Time Receive d Time (Source) Location / / Volume Laterality Blood 01/22/2022 8:01 PM 2 8:01 EST PM EST Danny Jewell MD POINT OF CARE TEST ORDERABLE S Performing Organization Address City/[facility]/[place] [address] POCT Glucose (01/22/2022 6:30 PM EST) P athologist Signature POC Glucose 101 65 - 199 [facility] mg/dL [facility] Comment: Supplemental ranges: <140 mg/dL before meals <180 mg/dL all other times of the day Specimen Anatomical Collection Method Collection Time Receive d Time (Source) Location / / Volume Laterality Blood 01/22/2022 6:30 PM 2 6:30 EST PM EST Danny Jewell MD POINT OF CARE TEST ORDERABLE S Performing Organization Address City/[facility]/[place] [address] (ABNORMAL) BLOOD GAS 2 ARTERIAL (01/22/2022 5:56 PM EST) Analysis Performed At Patho logist Time Signature pH Art 7.34 (L) 7.35 - [facility] 7.45 [facility] pCO2 Art 35 35 - 45 [facility] LABORATORY pO2 Art 79 (L) 85 - 104 [facility] LABORATORY HCO3 Art 18.8 (L) 20.0 - [facility] 26.0 [facility] mmol/L HOSPITAL LABORATORY BE Art -6.9 (L) -3.0 - 3.0 [facility] mmol/L [facility] Hgb Blood Gas 10.5 (L) 13.7 - [facility] 16.5 g/dL [facility] O2HB Art 93.5 (L) 94.0 - [facility] 97.0 % [facility] COHB Art 0.2 % [facility] Comment: Nonsmokers: 0.5-1.5% COHB Smokers: Variable, but usually less than 10% Toxic: 20-30% COHB Lethal: Greater than 60% COHB METHB Art 0.8 <=1.5 % [facility] Na Whole Blood 133 (L) 135 - 145 mmol/L [facility] K Whole Blood 4.0 3.5 - 5.0 mmol/L [facility] Comment: Please note: Patients with WBC >100,000 may have falsely elevated Potassium levels. Contact the Clinical Chemistry L aboratory if there are any questions. ICa Whole Blood 1.11 (L) 1.15 - 1.33 mmol/L [facility] Comment: Note: ??Total bilirubin higher than 20 m g/dL may lead to falsely low ionized calcium. CL Whole Blood 107 98 - 107 mmol/L [facility] Gluc Whole Bld 97 65 - 199 mg/dL [facility] Comment: Diabetes: >=200 mg/dL plus symp toms. Lactate WB 1.6 0.5 - 2.2 mmol/L [facility] FIO2 Art 50 % [facility] PF Ratio Art 158 [facility] Specimen Anatomical Collection Method Collection Time Receive d Time (Source) Location / / Volume Laterality Blood 01/22/2022 5:56 PM 5:56 EST PM EST Danny Jewell MD CHEMISTRY ORDERABLES Performing Organization Address City/State/[place] [address] POCT Glucose (01/22/2022 4:54 PM EST) athologist Signature POC Glucose 125 65 - 199 [facility] mg/dL [facility] Comment: Supplemental ranges: <140 mg/dL before meals <180 mg/dL all other times of the day Specimen Anatomical Collection Method Collection Time Receive d Time (Source) Location / / Volume Laterality Blood 01/22/2022 4:54 PM 2 4:54 EST PM EST Danny Jewell MD POINT OF CARE TEST ORDERABLE S Performing Organization Address City/[facility]/[place] [address] POCT Glucose (01/22/2022 3:48 PM EST) athologist Signature POC Glucose 127 65 - 199 [facility] mg/dL [facility] Comment: Supplemental ranges: <140 mg/dL before meals <180 mg/dL all other times of the day Specimen Anatomical Collection Method Collection Time Receive d Time (Source) Location / / Volume Laterality Blood 01/22/2022 3:48 PM 2 3:48 EST PM EST Danny Jewell MD POINT OF CARE TEST ORDERABLE S Performing Organization Address City/[facility]/[place] [address] Potassium (01/22/2022 3:15 PM EST) athologist Signature Potassium 4.5 3.5 - 5.0 [facility] mmol/L [facility] Comment: Please note: ??Patients with [...] Jewell MD CHEMISTRY ORDERABLES Performing Organization Address City/[facility]/ZIP Code Phon e Number [address] POCT Glucose (01/22/2022 3:14 PM EST) athologist Signature POC Glucose 149 65 - 199 [place] [place] mg/dL [facility] Comment: Supplemental ranges: <140 mg/dL before meals <180 mg/dL all other times of the day Specimen Anatomical Collection Method Collection Time Receive d Time (Source) Location / / Volume Laterality Blood 01/22/2022 3:14 PM 2 3:14 EST PM EST Danny Jewell MD POINT OF CARE TEST ORDERABLE S Performing Organization Address City/State/[place] [address] POCT Glucose (01/22/2022 2:01 PM EST) athologist Signature POC Glucose 160 65 - 199 [facility] mg/dL [facility] Comment: Supplemental ranges: <140 mg/dL before meals <180 mg/dL all other times of the day Specimen Anatomical Collection Method Collection Time Receive d Time (Source) Location / / Volume Laterality Blood 01/22/2022 2:01 PM 2 2:01 EST PM EST Danny Jewell MD POINT OF CARE TEST ORDERABLE S Performing Organization Address City/State/[place] [address] (ABNORMAL) BLOOD GAS 2 ARTERIAL (01/22/2022 1:10 PM EST) Analysis Performed At Patho logist Time Signature pH Art 7.33 (L) 7.35 - [facility] 7.45 [facility] pCO2 Art 38 35 - 45 [facility] mmHg [facility] pO2 Art 76 (L) 85 - 104 [facility] mmHg [facility] HCO3 Art 19.7 (L) 20.0 - [facility] 26.0 [facility] mmol/L [facility] BE Art -6.2 (L) -3.0 - 3.0 [facility] mmol/L [facility] Hgb Blood Gas 10.8 (L) 13.7 - [facility] 16.5 g/dL [facility] O2HB Art 93.0 (L) 94.0 - [facility] 97.0 % [facility] COHB Art 0.3 % [facility] Comment: Nonsmokers: 0.5-1.5% COHB Smokers: Variable, but usually less than 10% Toxic: 20-30% COHB Lethal: Greater than 60% COHB METHB Art 0.8 <=1.5 % [facility] Na Whole Blood 132 (L) 135 - 145 mmol/L [facility] K Whole Blood 4.0 3.5 - 5.0 mmol/L [facility] Comment: Please note: Patients with WBC >100,000 may have falsely elevated Potassium levels. Contact the Clinical Chemistry L aboratory if there are any questions. ICa Whole Blood 1.12 (L) 1.15 - 1.33 mmol/L [facility] Comment: Note: ??Total bilirubin higher than 20 m g/dL may lead to falsely low ionized calcium. CL Whole Blood 107 98 - 107 mmol/L [facility] Gluc Whole Bld 149 65 - 199 mg/dL [facility] Comment: Diabetes: >=200 mg/dL plus symp toms. Lactate WB 1.9 0.5 - 2.2 mmol/L [facility] FIO2 Art 50 % [facility] PF Ratio Art 152 [facility] Specimen Anatomical Collection Method Collection Time Receive d Time (Source) Location / / Volume Laterality Blood 01/22/2022 1:10 PM 2 1:10 EST PM EST Danny Jewell MD CHEMISTRY ORDERABLES Performing Organization Address City/State/[place] [address] (ABNORMAL) Coox2 (01/22/2022 12:34 PM EST) Analysis Performed At Patho logist Time Signature pO2 Coox 32 mmHg [facility] Hgb Blood Gas 11.3 (L) 13.7 - [facility] 16.5 g/dL [facility] O2HB Coox 63.4 % [facility] COHB Coox 0.3 % [facility] Comment: Nonsmokers: 0.5-1.5% COHB Smokers: Variable, but usually less than 10% Toxic: 20-30% COHB Lethal: Greater than 60% COHB METHB Coox 0.7 <=1.5 % [facility] Source Coox Mixed Venous [facility] Specimen Anatomical Collection Method Collection Time Receive d Time (Source) Location / / Volume Laterality Blood 01/22/2022 12:34 01/22/2022 PM EST 12:34 PM EST Danny Jewell MD CHEMISTRY ORDERABLES Performing Organization Address City/[facility]/ZIP Code Phon e Number [address] POCT Glucose (01/22/2022 11:02 AM EST) P athologist Signature POC Glucose 176 65 - 199 [facility] mg/dL [facility] Comment: Supplemental ranges: <140 mg/dL before meals <180 mg/dL all other times of the day Specimen Anatomical Collection Method Collection Time Receive d Time (Source) Location / / Volume Laterality Blood 01/22/2022 11:02 01/22/2022 AM EST 11:02 AM EST Danny Jewell MD POINT OF CARE TEST ORDERABLE S Performing Organization Address City/[facility]/ZIP Code Phon e Number [address] (ABNORMAL) POCT Glucose (01/22/2022 9:22 AM EST) P athologist Signature POC Glucose 257 (H) 65 - 199 [facility] mg/dL [facility] Comment: Supplemental ranges: <140 mg/dL before meals <180 mg/dL all other times of the day Specimen Anatomical Collection Method Collection Time Receive d Time (Source) Location / / Volume Laterality Blood 01/22/2022 9:22 AM 9:22 EST AM EST Danny Jewell MD POINT OF CARE TEST ORDERABLE S Performing Organization Address City/[facility]/ZIP Code Phon e Number [address] (ABNORMAL) POCT Glucose (01/22/2022 7:53 AM EST) P athologist Signature POC Glucose 237 (H) 65 - 199 [facility] mg/dL [facility] Comment: Supplemental ranges: <140 mg/dL before meals <180 mg/dL all other times of the day Specimen Anatomical Collection Method Collection Time Receive d Time (Source) Location / / Volume Laterality Blood 01/22/2022 7:53 AM 7:53 EST AM EST Danny Jewell MD POINT OF CARE TEST ORDERABLE S Performing Organization Address City/State/[place] [address] (ABNORMAL) BLOOD GAS 2 ARTERIAL (01/22/2022 6:35 AM EST) Analysis Performed At Patho logist Time Signature pH Art 7.30 (L) 7.35 - [facility] 7.45 [facility] pCO2 Art 38 35 - 45 [facility] LABORATORY pO2 Art 79 (L) 85 - 104 [facility] LABORATORY HCO3 Art 18.0 (L) 20.0 - [facility] 26.0 [facility] mmol/[facility] BE Art -8.5 (L) -3.0 - 3.0 [facility] mmol/L [facility] Hgb Blood Gas 11.4 (L) 13.7 - [facility] 16.5 g/dL [facility] O2HB Art 92.8 (L) 94.0 - [facility] 97.0 % [facility] COHB Art 0.3 % [facility] Comment: Nonsmokers: 0.5-1.5% COHB Smokers: Variable, but usually less than 10% Toxic: 20-30% COHB Lethal: Greater than 60% COHB METHB Art 0.7 <=1.5 % [facility] Na Whole Blood 134 (L) 135 - 145 mmol/L [facility] K Whole Blood 3.9 3.5 - 5.0 mmol/L [facility] Comment: Please note: Patients with WBC >100,000 may have falsely elevated Potassium levels. Contact the Clinical Chemistry L aboratory if there are any questions. ICa Whole Blood 1.17 1.15 - 1.33 mmol/L [facility] Comment: Note: ??Total bilirubin higher than 20 m g/dL may lead to falsely low ionized calcium. CL Whole Blood 106 98 - 107 mmol/L [facility] Gluc Whole Bld 233 (H) 65 - 199 mg/dL [facility] Comment: Diabetes: >=200 mg/dL plus symp toms. Lactate WB 3.2 (H) 0.5 - 2.2 mmol/L [facility] FIO2 Art 50 % [facility] PF Ratio Art 158 [facility] Specimen Anatomical Collection Method Collection Time Receive d Time (Source) Location / / Volume Laterality Blood 01/22/2022 6:35 AM 2 6:35 EST AM EST Danny Jewell MD CHEMISTRY ORDERABLES Performing Organization Address City/[facility]/[place] [address] IgA (01/22/2022 6:35 AM EST) P athologist Signature IgA 109 70 - 400 [facility] mg/dL [facility] Specimen Anatomical Collection Method Collection Time Receive d Time (Source) Location / / Volume Laterality Blood 01/22/2022 6:35 AM 2 6:44 EST AM EST Resulting Agency Comment Spec In Lab Danny Jewell MD IMMUNOLOGY ORDERABLES Performing Organization Address City/[facility]/[place] [address] (ABNORMAL) POCT Glucose (01/22/2022 5:48 AM EST) [facility] POC Glucose 271 (H) 65 - 199 [facility] mg/dL [facility] Comment: Supplemental ranges: <140 mg/dL before meals <180 mg/dL all other times of the day Specimen Anatomical Collection Method Collection Time Receive d Time (Source) Location / / Volume Laterality Blood 01/22/2022 5:48 AM 2 5:48 EST AM EST Danny Jewell MD POINT OF CARE TEST ORDERABLE S Performing Organization Address City/State/[place] [address] (ABNORMAL) POCT Glucose (01/22/2022 4:41 AM EST) P athologist Signature POC Glucose 249 (H) 65 - 199 [facility] mg/dL [facility] Comment: Supplemental ranges: <140 mg/dL before meals <180 mg/dL all other times of the day Specimen Anatomical Collection Method Collection Time Receive d Time (Source) Location / / Volume Laterality Blood 01/22/2022 4:41 AM 2 4:41 EST AM EST Danny Jewell MD POINT OF CARE TEST ORDERABLE S Performing Organization Address City/State/[place] [address] COVID-19 PCR (01/22/2022 2:45 AM EST) Patholo gist Method Time Signature SARS-CoV-2 Not Detected Not Detected GABRIELLE RNA PCR [facility] Comment: This result should [...] using the Simplexa COVID-19 Direct Assay by invendo medicalu kim as authorized by the FDA issued Emergency [...] Department of Pathology and Laboratory Medicine at [facility], certified under the Clinical Laboratory Improvement [...] clinical management guidance information are available at [facility] CDC Coronavirus Disease 2019 (COVID-19) webpage under Information fo r Healthcare Professionals (https://www.cdc.gov/coronavirus/2019-nc ov/hcp/index.html). Additional information about this and ot her EUA tests can be found in provider and patient fact sheets at the following FDA website: https://www.fda.gov/medical-devices/ougnvfjufpn-gqiphmw-8653-iphck-87-muuswcins- ixm-typvzddpkihkoj-ropfwxi-devices/upeps-dpfmfipekco-hgwt SARS-CoV-2 Source MENTAL HEALTH PRACTITIONER Swab [facility] Specimen (Source) Anatomical Collection Method Collection Time Re ceived Time Location / / Volume Laterality Nasopharyngeal Swab 01/22/2022 2:45 01/22 AM EST 3:50 AM EST Comment: Symptoms->Surveillance Resulting Agency Comment Spec In Lab Danny Jewell MD MICROBIOLOGY - GENERAL ORDER CATHY Performing Organization Address City/State/[place] [address] (ABNORMAL) Coox2 (01/22/2022 2:16 AM EST) Analysis Performed At Patho logist Time Signature pO2 Coox 33 mmHg [facility] Hgb Blood Gas 12.1 (L) 13.7 - [facility] 16.5 g/dL [facility] O2HB Coox 61.5 % [facility] COHB Coox 0.4 % [facility] Comment: Nonsmokers: 0.5-1.5% COHB Smokers: Variable, but usually less than 10% Toxic: 20-30% COHB Lethal: Greater than 60% COHB METHB Coox 0.8 <=1.5 % [facility] Source Coox Mixed Venous [facility] Specimen Anatomical Collection Method Collection Time Receive d Time (Source) Location / / Volume Laterality Blood 01/22/2022 2:16 AM 2:16 EST AM EST Danny Jewell MD CHEMISTRY ORDERABLES Performing Organization Address City/State/[place] [address] (ABNORMAL) BLOOD GAS 2 ARTERIAL (01/22/2022 2:12 AM EST) Analysis Performed At Patho logist Time Signature pH Art 7.31 (L) 7.35 - [facility] 7.45 [facility] pCO2 Art 38 35 - 45 [facility] mmHg [facility] pO2 Art 85 85 - 104 [facility] LABORATORY HCO3 Art 18.7 (L) 20.0 - [facility] 26.0 [facility] mmol/L [facility] BE Art -7.6 (L) -3.0 - 3.0 [facility] mmol/L [facility] Hgb Blood Gas 11.5 (L) 13.7 - [facility] 16.5 g/dL [facility] O2HB Art 93.9 (L) 94.0 - [facility] 97.0 % [facility] COHB Art 0.3 % [facility] Comment: Nonsmokers: 0.5-1.5% COHB Smokers: Variable, but usually less than 10% Toxic: 20-30% COHB Lethal: Greater than 60% COHB METHB Art 0.8 <=1.5 % [facility] Na Whole Blood 134 (L) 135 - 145 mmol/L [facility] K Whole Blood 4.4 3.5 - 5.0 mmol/L [facility] Comment: Please note: Patients with WBC >100,000 may have falsely elevated Potassium levels. Contact the Clinical Chemistry L aboratory if there are any questions. ICa Whole Blood 1.16 1.15 - 1.33 mmol/L [facility] Comment: Note: ??Total bilirubin higher than 20 m g/dL may lead to falsely low ionized calcium. CL Whole Blood 108 (H) 98 - 107 mmol/L [facility] Gluc Whole Bld 266 (H) 65 - 199 mg/dL [facility] Comment: Diabetes: >=200 mg/dL plus symp toms. Lactate WB 2.9 (H) 0.5 - 2.2 mmol/L [facility] FIO2 Art 50 % [facility] PF Ratio Art 170 [facility] Specimen Anatomical Collection Method Collection Time Receive d Time (Source) Location / / Volume Laterality Blood 01/22/2022 2:12 AM 2 2:12 EST AM EST Danny Jewell MD CHEMISTRY ORDERABLES Performing Organization Address City/State/ZIP Code Phon e Number [place] [id number] HOSPITAL LABORATORY Drive (ABNORMAL) Differential, Automated (01/22/2022 2:00 AM EST) [facility] gist Method Time Signature Neutrophils % 90.1 % [facility] Neutr Abs (ANC) 16.17 (H) 1.70 - [facility] 6.10 [facility] x10(3)/[facility] L LABORATORY Lymphocytes % 4.9 % [facility] Lymphocytes Abs 0.9 0.9 - 3.2 [facility] x10(3)/[facility] LABORATORY Monocytes % 4.0 % [facility] Monocyte Abs 0.7 0.3 - 0.9 [facility] x10(3)/[facility] LABORATORY Eosinophils % 0.1 % [facility] Eosinophils Abs 0.0 0.0 - 0.4 [facility] x10(3)/[facility] LABORATORY Basophils % 0.4 % [facility] Basophils Abs 0.1 0.0 - 0.1 [facility] x10(3)/[facility] LABORATORY Immature Gran % 0.50 % [facility] Comment: Immature granulocytes(IG's)percentage an d absolute count will include metamyelocytes, myelocytes, and promyelo cytes. Blood smears from CBCs yielding IG's will be scanned manually for concor dance. If this scan disagrees with the automated IG or if promyelocytes are not ed, a manual differential will be performed. Nikole Gran Abs 0.09 (H) 0.00 - 0.04 x10(3)/[facility] LABORATORY Specimen Anatomical Collection Method Collection Time Receive d Time (Source) Location / / Volume Laterality Blood 01/22/2022 2:00 AM 2:16 EST AM EST Resulting Agency Comment Spec In Lab [facility] ORDERABLES Performing Organization Address City/State/[place] [address] (ABNORMAL) Hemogram (01/22/2022 2:00 AM EST) [facility] gist Method Time Signature WBC 17.9 (H) 4.0 - 9.5 [facility] x10(3)/[facility] LABORATORY RBC 3.70 (L) 4.58 - [facility] LOY 5.54 [facility] x10(6)/[facility] LABORATORY Hemoglobin 11.7 (L) 13.7 - [facility] [facility] 16.5 g/dL [facility] Hematocrit 32.9 (L) 40.5 - [facility] 48.5 % [facility] MCV 88.9 82.9 - [facility] 93.1 fL [facility] MCH 31.6 27.5 - [facility] LOY 32.1 pg [facility] MCHC 35.6 32.0 - [facility] 35.7 g/dL [facility] Platelets 235 145 - 357 [facility] x10(3)/[facility] LABORATORY RDWSD 41.9 36.0 - [facility] 45.[address] [facility] LABORATORY RDWCV 13.0 11.4 - [facility] 13.8 % [facility] MPV 10.0 7.6 - 12.9 [facility] LABORATORY nRBC % Auto 0.1 % [facility] nRBC Abs Auto 0.020 (H) 0.000 - [facility] 0.000 [facility] x10(3)/[facility] LABORATORY Specimen Anatomical Collection Method Collection Time Receive d Time (Source) Location / / Volume Laterality Blood 01/22/2022 2:00 AM 2:16 EST AM EST Resulting Agency Comment Spec In Lab [facility] HEMATOLOGY ORDERABLES Performing Organization Address City/State/[place] [address] (ABNORMAL) Basic Metabolic Panel (non-fasting) (01/22/2022 2:00 AM EST) athologist Signature Glucose Lvl 293 (H) 65 - 199 [facility] mg/dL [facility] Comment: Diabetes: >=200 mg/dL plus symp toms BUN 20 10 - 20 mg/dL [facility] Creatinine 1.63 (H) 0.80 - 1.50 mg/dL [facility] Sodium 137 135 - 145 mmol/L [facility] Potassium 4.9 3.5 - 5.0 mmol/L [facility] Comment: Please note: ??Patients with WBC >100,00 0 may have falsely elevated Potassium levels. ??For accurate Potassium quantif ication in these patients send serum separator tube (gold top) for subsequent determinations. ??Contact the Clinical Chemistry Laboratory if there are any qu estions. Chloride 106 98 - 107 mmol/L [facility] CO2 19 (L) 22 - 31 mmol/L [facility] Anion Gap 12 5 - 15 mmol/L [facility] Calcium 8.2 (L) 8.5 - 10.5 mg/dL [facility] Estimated GFR 43 (L) >=60 mL/min/1.73 m?? [facility] Comment: This patient? s estimated [...] Organization Address City/State/[place] [address] (ABNORMAL) Troponin (01/22/2022 2:00 AM EST) P athologist Signature Troponin-T 1.07 (H) 0.00 - [facility] 0.00 ng/mL [facility] Comment: The 99th percentile for Troponin T is le ss than 0.01 ng/mL, any detectable cTnT concentration using this assay should be considered elevated. According to the third universal definit ion of myocardial infarction the following criteria with a clinical prese ntation consistent with acute myocardial ischemia meets the diagnosis for a myocardial infarction (TN). Detection of a rise and/or fall of [...] additional sample may be indicated. Reference: Third Sewell Definition of Myocardial Infarction. Journal of the [place] [employer] 2012;60:1581-98 Specimen Anatomical Collection Method Collection Time Receive d Time (Source) Location / / Volume Laterality Blood 01/22/2022 2:00 AM 2 2:16 EST AM EST Resulting Agency Comment Spec In Lab Danny Jewell MD CHEMISTRY ORDERABLES Performing Organization Address City/[facility]/[place]IP [facility] [place] [address] (ABNORMAL) POCT Glucose (01/22/2022 1:20 AM EST) athologist Signature POC Glucose 239 (H) 65 - 199 [facility] mg/dL [facility] Comment: Supplemental ranges: <140 mg/dL before meals <180 mg/dL all other times of the day Specimen Anatomical Collection Method Collection Time Receive d Time (Source) Location / / Volume Laterality Blood 01/22/2022 1:20 AM 2 1:20 EST AM EST Danny Jewell MD POINT OF CARE TEST ORDERABLE S Performing Organization Address [facility]/[place] [address] (ABNORMAL) POCT Glucose (01/21/2022 11:54 PM EST) P athologist Signature POC Glucose 224 (H) 65 - 199 [facility] LOY mg/dL [facility] Comment: Supplemental ranges: <140 mg/dL before meals <180 mg/dL all other times of the day Specimen Anatomical Collection Method Collection Time Receive d Time (Source) Location / / Volume Laterality Blood 01/21/2022 11:54 01/21/2022 PM EST 11:54 PM EST Danny Jewell MD POINT OF CARE TEST ORDERABLE S Performing Organization Address City/[facility]/[place] [address] (ABNORMAL) Coox2 (01/21/2022 10:38 PM EST) Analysis Performed At Patho logist Time Signature pO2 Coox 32 mmHg [facility] Hgb Blood Gas 12.9 (L) 13.7 - [facility] 16.5 g/dL [facility] O2HB Coox 61.0 % [facility] COHB Coox 0.3 % [facility] Comment: Nonsmokers: 0.5-1.5% COHB Smokers: Variable, but usually less than 10% Toxic: 20-30% COHB Lethal: Greater than 60% COHB METHB Coox 0.7 <=1.5 % [facility] Source Coox Mixed Venous [facility] Specimen Anatomical Collection Method Collection Time Receive d Time (Source) Location / / Volume Laterality Blood 01/21/2022 10:38 01/21/2022 PM EST 10:38 PM EST Danny Jewell MD CHEMISTRY ORDERABLES Performing Organization Address City/State/[place] [address] (ABNORMAL) POCT Glucose (01/21/2022 10:01 PM EST) P athologist Signature POC Glucose 205 (H) 65 - 199 [facility] Comment: Supplemental ranges: <140 mg/dL before meals <180 mg/dL all other times of the day Specimen Anatomical Collection Method Collection Time Receive d Time (Source) Location / / Volume Laterality Blood 01/21/2022 10:01 01/21/2022 PM EST 10:01 PM EST Danny Jewell MD POINT OF CARE TEST ORDERABLE S Performing Organization Address City/State/[place] [address] (ABNORMAL) Potassium (01/21/2022 10:00 PM EST) P athologist Signature Potassium 5.1 (H) 3.5 - 5.0 [facility] mmol/L [facility] Comment: result rechecked-KT Please note: [...] Organization Address City/State/[place] [address] (ABNORMAL) BLOOD GAS 2 ARTERIAL (01/21/2022 9:59 PM EST) Analysis Performed At Patho logist Time Signature pH Art 7.30 (L) 7.35 - [facility] 7.45 [facility] pCO2 Art 35 35 - 45 [facility] LABORATORY pO2 Art 83 (L) 85 - 104 [facility] LABORATORY HCO3 Art 17.1 (L) 20.0 - [facility] 26.0 [facility] mmol/[facility] BE Art -9.3 (L) -3.0 - 3.0 [facility] mmol/L [facility] Hgb Blood Gas 12.8 (L) 13.7 - [facility] 16.5 g/dL [facility] O2HB Art 93.7 (L) 94.0 - [facility] 97.0 % [facility] COHB Art 0.3 % [facility] Comment: Nonsmokers: 0.5-1.5% COHB Smokers: Variable, but usually less than 10% Toxic: 20-30% COHB Lethal: Greater than 60% COHB METHB Art 0.7 <=1.5 % [facility] Na Whole Blood 132 (L) 135 - 145 mmol/L [facility] K Whole Blood 4.9 3.5 - 5.0 mmol/L [facility] Comment: Please note: Patients with WBC >100,000 may have falsely elevated Potassium levels. Contact the Clinical Chemistry L aboratory if there are any questions. ICa Whole Blood 1.22 1.15 - 1.33 mmol/L [facility] Comment: Note: ??Total bilirubin higher than 20 m g/dL may lead to falsely low ionized calcium. CL Whole Blood 108 (H) 98 - 107 mmol/L [facility] Gluc Whole Bld 212 (H) 65 - 199 mg/dL [facility] Comment: Diabetes: >=200 mg/dL plus symp toms. Lactate WB 2.2 0.5 - 2.2 mmol/L [facility] FIO2 Art 50 % [facility] PF Ratio Art 166 [facility] Specimen Anatomical Collection Method Collection Time Receive d Time (Source) Location / / Volume Laterality Blood 01/21/2022 9:59 PM 2 9:59 EST PM EST Danny Jewell MD CHEMISTRY ORDERABLES Performing Organization Address City/[facility]/[place] [address] (ABNORMAL) POCT Glucose (01/21/2022 9:04 PM EST) athologist Signature POC Glucose 208 (H) 65 - 199 [facility]/dL [facility] Comment: Supplemental ranges: <140 mg/dL before meals <180 mg/dL all other times of the day Specimen Anatomical Collection Method Collection Time Receive d Time (Source) Location / / Volume Laterality Blood 01/21/2022 9:04 PM 2 9:04 EST PM EST Danny Jewell MD POINT OF CARE TEST ORDERABLE S Performing Organization Address City/State/ZIP Code Phon e Number [address] POCT Glucose (01/21/2022 8:09 PM EST) athologist Signature POC Glucose 183 65 - 199 [facility] mg/dL [facility] Comment: Supplemental ranges: <140 mg/dL before meals <180 mg/dL all other times of the day Specimen Anatomical Collection Method Collection Time Receive d Time (Source) Location / / Volume Laterality Blood 01/21/2022 8:09 PM 2 8:09 EST PM EST Danny Jewell MD POINT OF CARE TEST ORDERABLE S Performing Organization Address City/State/ZIP Code Phon e Number [address] POCT Glucose (01/21/2022 7:06 PM EST) athologist Signature POC Glucose 183 65 - 199 [facility] mg/dL [facility] Comment: Supplemental ranges: <140 mg/dL before meals <180 mg/dL all other times of the day Specimen Anatomical Collection Method Collection Time Receive d Time (Source) Location / / Volume Laterality Blood 01/21/2022 7:06 PM 2 7:06 EST PM EST Danny Jewell MD POINT OF CARE TEST ORDERABLE S Performing Organization Address City/State/[place] [address] POCT Glucose (01/21/2022 6:00 PM EST) athologist Signature POC Glucose 155 65 - 199 [facility] mg/dL [facility] Comment: Supplemental ranges: <140 mg/dL before meals <180 mg/dL all other times of the day Specimen Anatomical Collection Method Collection Time Receive d Time (Source) Location / / Volume Laterality Blood 01/21/2022 6:00 PM 2 6:00 EST PM EST Danny Jewell MD POINT OF CARE TEST ORDERABLE S Performing Organization Address City/State/[place] [address] POCT Glucose (01/21/2022 5:06 PM EST) athologist Signature POC Glucose 149 65 - 199 [facility]ERN[facility]LO[facility] mg/dL [facility] Comment: Supplemental ranges: <140 mg/dL before meals <180 mg/dL all other times of the day Specimen Anatomical Collection Method Collection Time Receive d Time (Source) Location / / Volume Laterality Blood 01/21/2022 5:06 PM 5:06 EST PM EST Danny Jewell MD POINT OF CARE TEST ORDERABLE S Performing Organization Address City/State/[place] [address] (ABNORMAL) BLOOD GAS 2 ARTERIAL (01/21/2022 4:29 PM EST) Analysis Performed At Patho logist Time Signature pH Art 7.36 7.35 - [facility] 7.45 [facility] pCO2 Art 35 35 - 45 [facility] mmHg [facility] pO2 Art 70 (L) 85 - 104 [facility] LABORATORY HCO3 Art 19.3 (L) 20.0 - [facility] 26.0 [facility] mmol/[facility] BE Art -6.0 (L) -3.0 - 3.0 [facility] mmol/L [facility] Hgb Blood Gas 12.3 (L) 13.7 - [facility] 16.5 g/dL [facility] O2HB Art 91.2 (L) 94.0 - [facility] 97.0 % [facility] COHB Art 0.3 % [facility] Comment: Nonsmokers: 0.5-1.5% COHB Smokers: Variable, but usually less than 10% Toxic: 20-30% COHB Lethal: Greater than 60% COHB METHB Art 0.7 <=1.5 % [facility] Na Whole Blood 135 135 - 145 mmol/L [facility] K Whole Blood 4.7 3.5 - 5.0 mmol/L [facility] Comment: Please note: Patients with WBC >100,000 may have falsely elevated Potassium levels. Contact the Clinical Chemistry L aboratory if there are any questions. ICa Whole Blood 1.24 1.15 - 1.33 mmol/L [facility] Comment: Note: ??Total bilirubin higher than 20 m g/dL may lead to falsely low ionized calcium. CL Whole Blood 110 (H) 98 - 107 mmol/L [facility] Gluc Whole Bld 173 65 - 199 mg/dL [facility] Comment: Diabetes: >=200 mg/dL plus symp toms. Lactate WB 1.4 0.5 - 2.2 mmol/L [facility] FIO2 Art 40 % [facility] PF Ratio Art 175 [facility] Specimen Anatomical Collection Method Collection Time Receive d Time (Source) Location / / Volume Laterality Blood 01/21/2022 4:29 PM 4:29 EST PM EST Danny Jewell MD CHEMISTRY ORDERABLES Performing Organization Address City/[facility]/[place]IP [place] [address] [facility] [address] (ABNORMAL) Coox2 (01/21/2022 4:07 PM EST) Analysis Performed At Patho logist Time Signature pO2 Coox 24 mmHg [facility] Hgb Blood Gas 11.9 (L) 13.7 - [facility] 16.5 g/dL [facility] O2HB Coox 43.9 % [facility] COHB Coox 0.7 % [facility] Comment: Nonsmokers: 0.5-1.5% COHB Smokers: Variable, but usually less than 10% Toxic: 20-30% COHB Lethal: Greater than 60% COHB METHB Coox 0.5 <=1.5 % [facility] Source Coox Mixed Venous [facility] Specimen Anatomical Collection Method Collection Time Receive d Time (Source) Location / / Volume Laterality Blood 01/21/2022 4:07 PM 2 4:07 EST PM EST Danny Jewell MD CHEMISTRY ORDERABLES Performing Organization Address City/State/[place] [address] POCT Glucose (01/21/2022 4:02 PM EST) P athologist Signature POC Glucose 190 65 - 199 [facility] mg/dL [facility] Comment: Supplemental ranges: <140 mg/dL before meals <180 mg/dL all other times of the day Specimen Anatomical Collection Method Collection Time Receive d Time (Source) Location / / Volume Laterality Blood 01/21/2022 4:02 PM 2 4:02 EST PM EST Danny Jewell MD POINT OF CARE TEST ORDERABLE S Performing Organization Address City/[facility]/[place] [address] (ABNORMAL) Hemoglobin (01/21/2022 2:40 PM EST) athologist Signature Hemoglobin 11.9 (L) 13.7 - [facility] 16.5 g/dL [facility] Specimen Anatomical Collection Method Collection Time Receive d Time (Source) Location / / Volume Laterality Blood 01/21/2022 2:40 PM 2 2:55 EST PM EST Resulting Agency Comment Spec In Lab Danny Jewell MD HEMATOLOGY ORDERABLES Performing Organization Address [facility] [place] [address] Potassium (01/21/2022 2:40 PM EST) athologist Signature Potassium 4.0 3.5 - 5.0 [facility] mmol/L [facility] Comment: Please note: ??Patients with [...] Jewell MD CHEMISTRY ORDERABLES Performing Organization Address City/[facility]/[place]IP [facility] [place] [address] (ABNORMAL) BLOOD GAS 2 ARTERIAL (01/21/2022 2:25 PM EST) athologist Signature pH Art 7.28 7.35 - [facility] (Critical) 7.45 [facility] Comment: Noted by supervisor instrument maintenance. pCO2 Art 41 35 - 45 mmHg [facility] pO2 Art 218 (H) 85 - 104 mmHg [facility] HCO3 Art 18.6 (L) 20.0 - 26.0 mmol/L [facility] BE Art -8.2 (L) -3.0 - 3.0 mmol/L [facility] Hgb Blood Gas 11.9 (L) 13.7 - 16.5 g/dL [facility] O2HB Art 97.6 (H) 94.0 - 97.0 % [facility] COHB Art 0.3 % [facility] Comment: Nonsmokers: 0.5-1.5% COHB Smokers: Variable, but usually less than 10% Toxic: 20-30% COHB Lethal: Greater than 60% COHB METHB Art 0.7 <=1.5 % [facility] Na Whole Blood 135 135 - 145 mmol/L [facility] K Whole Blood 3.2 (L) 3.5 - 5.0 mmol/L [facility] Comment: Please note: Patients with WBC >100,000 may have falsely elevated Potassium levels. Contact the Clinical Chemistry L aboratory if there are any questions. ICa Whole Blood 1.26 1.15 - 1.33 mmol/L [facility] Comment: Note: ??Total bilirubin higher than 20 m g/dL may lead to falsely low ionized calcium. CL Whole Blood 113 (H) 98 - 107 mmol/L [facility] Gluc Whole Bld 140 65 - 199 mg/dL [facility] Comment: Diabetes: >=200 mg/dL plus symp toms. Lactate WB 1.3 0.5 - 2.2 mmol/L [facility] FIO2 Art 100 % [facility] PF Ratio Art 218 [facility] Specimen Anatomical Collection Method Collection Time Receive d Time (Source) Location / / Volume Laterality Blood 01/21/2022 2:25 PM 2:25 EST PM EST Danny Jewell MD CHEMISTRY ORDERABLES Performing Organization Address City/State/[place] [address] (ABNORMAL) Tryptase (01/21/2022 1:47 PM EST) P athologist Signature Tryptase 12.5 (H) <=8.4 ng/mL [facility] Comment: Total tryptase concentrations that are p ersistently greater than 20 ng/mL may be consistent with systemic mastocytosis . Specimen Anatomical Collection Method Collection Time Receive d Time (Source) Location / / Volume Laterality Blood 01/21/2022 1:47 PM 7:40 EST AM EST Resulting Agency Comment Spec In Lab Danny Jewell MD CHEMISTRY ORDERABLES Performing Organization Address City/[facility]/[place] [address] (ABNORMAL) BLOOD GAS 2 ARTERIAL (01/21/2022 1:35 PM EST) Analysis Performed At Patho logist Time Signature pH Art 7.31 (L) 7.35 - [facility] 7.45 [facility] pCO2 Art 44 35 - 45 [facility] mmHg [facility] pO2 Art 65 (L) 85 - 104 [facility] LABORATORY HCO3 Art 21.9 20.0 - [facility] 26.0 [facility] mmol/L [facility] BE Art -4.4 (L) -3.0 - 3.0 [facility] mmol/L [facility] Hgb Blood Gas 10.9 (L) 13.7 - [facility] 16.5 g/dL [facility] O2HB Art 88.4 (L) 94.0 - [facility] 97.0 % [facility] COHB Art 0.3 % [facility] Comment: Nonsmokers: 0.5-1.5% COHB Smokers: Variable, but usually less than 10% Toxic: 20-30% COHB Lethal: Greater than 60% COHB METHB Art 0.7 <=1.5 % [facility] Na Whole Blood 136 135 - 145 mmol/L [facility] K Whole Blood 4.5 3.5 - 5.0 mmol/L [facility] Comment: Please note: Patients with WBC >100,000 may have falsely elevated Potassium levels. Contact the Clinical Chemistry L aboratory if there are any questions. ICa Whole Blood 1.18 1.15 - 1.33 mmol/L [facility] Comment: Note: ??Total bilirubin higher than 20 m g/dL may lead to falsely low ionized calcium. CL Whole Blood 110 (H) 98 - 107 mmol/L [facility] Gluc Whole Bld 150 65 - 199 mg/dL [facility] Comment: Diabetes: >=200 mg/dL plus symp toms. Lactate WB 1.1 0.5 - 2.2 mmol/L [facility] FIO2 Art 100 % [facility] PF Ratio Art 65 [facility] Specimen Anatomical Collection Method Collection Time Receive d Time (Source) Location / / Volume Laterality Blood 01/21/2022 1:35 PM 1:35 EST PM EST Danny Jewell MD CHEMISTRY ORDERABLES Performing Organization Address City/State/[place] [address] XR Chest One View [...] who have questions please contact the health personal care aid that requested your imaging first. ? Narrative [...] ho have questions please contact the health personal care aid that requested your imaging first. Danny Jewell MD IMG DX ORDERABLES (ABNORMAL) BLOOD GAS 2 ARTERIAL (01/21/2022 12:47 PM EST) Analysis Performed At Patho logist Time Signature pH Art 7.37 7.35 - [facility] 7.45 [facility] pCO2 Art 42 35 - 45 [facility] mmHg [facility] pO2 Art 193 (H) 85 - 104 [facility] LABORATORY HCO3 Art 23.5 20.0 - [facility] 26.0 [facility] mmol/L [facility] BE Art -1.8 -3.0 - 3.0 [facility] mmol/L [facility] Hgb Blood Gas 11.8 (L) 13.7 - [facility] 16.5 g/dL [facility] O2HB Art 97.4 (H) 94.0 - [facility] 97.0 % [facility] COHB Art 0.3 % [facility] Comment: Nonsmokers: 0.5-1.5% COHB Smokers: Variable, but usually less than 10% Toxic: 20-30% COHB Lethal: Greater than 60% COHB METHB Art 0.8 <=1.5 % [facility] Na Whole Blood 135 135 - 145 mmol/L [facility] K Whole Blood 4.2 3.5 - 5.0 mmol/L [facility] Comment: Please note: Patients with WBC >100,000 may have falsely elevated Potassium levels. Contact the Clinical Chemistry L aboratory if there are any questions. ICa Whole Blood 1.12 (L) 1.15 - 1.33 mmol/L [facility] Comment: Note: ??Total bilirubin higher than 20 m g/dL may lead to falsely low ionized calcium. CL Whole Blood 109 (H) 98 - 107 mmol/L [facility] Gluc Whole Bld 150 65 - 199 mg/dL [facility] Comment: Diabetes: >=200 mg/dL plus symp toms. Lactate WB 1.1 0.5 - 2.2 mmol/L [facility] FIO2 Art 100 % [facility] PF Ratio Art 193 [facility] Specimen Anatomical Collection Method Collection Time Receive d Time (Source) Location / / Volume Laterality Blood 01/21/2022 12:47 01/21/2022 PM EST 12:47 PM EST Danny Jewell MD CHEMISTRY ORDERABLES Performing Organization Address City/[facility]/ZIP Code Phon e Number [address] (ABNORMAL) Coox2 (01/21/2022 12:42 PM EST) Analysis Performed At Patho logist Time Signature pO2 Coox 29 mmHg [facility] Hgb Blood Gas 12.0 (L) 13.7 - [facility] 16.5 g/dL [facility] O2HB Coox 53.7 % [facility] COHB Coox 0.6 % [facility] Comment: Nonsmokers: 0.5-1.5% COHB Smokers: Variable, but usually less than 10% Toxic: 20-30% COHB Lethal: Greater than 60% COHB METHB Coox 0.8 <=1.5 % [facility] Source Coox Mixed Venous [facility] Specimen Anatomical Collection Method Collection Time Receive d Time (Source) Location / / Volume Laterality Blood 01/21/2022 12:42 01/21/2022 PM EST 12:42 PM EST Danny Jewell MD CHEMISTRY ORDERABLES Performing Organization Address City/[facility]/[place] [address] EKG 12 Lead (01/21/2022 12:37 PM EST) Component Value Ref Range Test Analysis Performed Pathologis t Method Time At Signature Ventricular rate 67 BPM MUSE SYSTEM Atrial Rate 67 BPM MUSE SYSTEM P-R Interval 176 ms MUSE SYSTEM QRS Duration 82 ms MUSE SYSTEM Q-T Interval 440 ms MUSE SYSTEM QTC Calculated 464 ms MUSE SYSTEM (Bezet) Calculated P [place] 50 degrees MUSE SYSTEM Calculated R [place] -15 degrees MUSE SYSTEM Calculated T [place] 23 degrees MUSE SYSTEM INTERPRETATION Normal sinus rhythm MUSE SYSTEM possible ??Inferior infarct (cited on or before 25-SEP-2016 ??08:11 Abnormal ECG When compared with ECG of 01-JAN-2022 16:38, No significant change was found I personally reviewed the tracing and edited the fellows int erpretation Confirmed by fellow Brett Tenorio ([id number]) on 01/21/2022 6:4 4:33 PM Confirmed by [...] athologist Signature pH Art 7.39 7.35 - [facility] 7.45 [facility] pCO2 Art 43 35 - 45 [facility] LABORATORY pO2 Art 86 85 - 104 [facility]ATORY HCO3 Art 25.0 20.0 - [facility] 26.0 [facility] mmol/L [facility] BE Art 0.0 -3.0 - 3.0 [facility] mmol/L [facility] Hgb Blood Gas 8.5 (L) 13.7 - [facility] 16.5 g/dL [facility] O2HB Art 95.1 94.0 - [facility] 97.0 % [facility] COHB Art 0.1 % [facility] Comment: Nonsmokers: 0.5-1.5% COHB Smokers: Variable, but usually less than 10% Toxic: 20-30% COHB Lethal: Greater than 60% COHB METHB Art 0.3 <=1.5 % [facility] Na Whole Blood 134 (L) 135 - 145 mmol/L [facility] K Whole Blood 5.6 (H) 3.5 - 5.0 mmol/L [facility] Comment: Please note: Patients with WBC >100,000 may have falsely elevated Potassium levels. Contact the Clinical Chemistry L aboratory if there are any questions. ICa Whole Blood 1.15 1.15 - 1.33 mmol/L [facility] Comment: Note: ??Total bilirubin higher than 20 m g/dL may lead to falsely low ionized calcium. CL Whole Blood 106 98 - 107 mmol/L [facility] Gluc Whole Bld 181 65 - 199 mg/dL [facility] Comment: Diabetes: >=200 mg/dL plus symp toms. Lactate WB 1.6 0.5 - 2.2 mmol/L [facility] Specimen Anatomical Collection Method Collection Time Receive d Time (Source) Location / / Volume Laterality Blood 01/21/2022 11:37 01/21/2022 AM EST 11:37 AM EST Danny Jewell MD CHEMISTRY ORDERABLES Performing Organization Address City/[facility]/[place] [address] APTT (01/21/2022 11:30 AM EST) P athologist Signature PTT 31 25 - 37 sec [facility] Comment: OR Result called by ?? SALV OR Result s read back by: ? [...] Vasquez MD HEMATOLOGY ORDERABLES Performing Organization Address City/[facility]/[place] [address] (ABNORMAL) Prothrombin Time (01/21/2022 11:30 AM EST) P athologist Signature PT 16.0 (H) 9.4 - 12.5 [facility] Comment: OR Result called by ?? SALVLT OR Result s read back by: ? Tete Sanchez at 2022-01-21 12:02:10 INR 1.4 [facility] Comment: OR Result called [...] Organization Address City/State/[place] [address] (ABNORMAL) Hemogram (01/21/2022 11:30 AM EST) P athologist Signature WBC 4.6 4.0 - 9.5 [facility] x10(3)/[facility] LABORATORY RBC 2.57 (L) 4.58 - [facility] 5.54 [facility] x10(6)/[facility] LABORATORY Hemoglobin 8.1 (L) 13.7 - [facility] 16.5 g/dL [facility] Hematocrit 23.1 (L) 40.5 - [facility] 48.5 % [facility] Comment: This result has been called to JOSE MANUEL KEY by Jim Montesinos on 01 21 2022 at 1147, and has been read back. MCV 89.9 82.9 - 93.1 fL [facility] MCH 31.5 27.5 - 32.1 pg [facility] MCHC 35.1 32.0 - 35.7 g/dL [facility] Platelets 105 (L) 145 - 357 x10(3)/[facility] LABORATORY RDWSD 42.2 36.0 - 45.0 fL [facility] RDWCV 13.0 11.4 - 13.8 % [facility] MPV 9.6 7.6 - 12.9 [facility] LABORATORY nRBC % Auto 0.0 % [facility] nRBC Abs Auto 0.000 0.000 - 0.000 x10(3)/[facility] Specimen Anatomical Collection Method Collection Time Receive d Time (Source) Location / / Volume Laterality Blood 01/21/2022 11:30 01/21/2022 AM EST 11:42 AM EST Resulting Agency Comment Spec In Lab Donnie Vasquez MD HEMATOLOGY ORDERABLES Performing Organization Address City/State/[place] [address] Platelet count (01/21/2022 10:50 AM EST) P athologist Signature Platelets 148 145 - 357 [facility] x10(3)/[facility] LABORATORY Plat Immature 2.4 0.0 - 7.4 [facility] Comment: Limitation of the Immature Platelet Frac tion (IPF)-May be less reliable when the platelet count is less than 73s972/u L due to statistical imprecision. The IPF [...] in a decreased state of production. References: [employer] The Clinical Value of the Immature Platelet Fraction (IPF) in Cell Recovery Document Number [id number] 04/2011 [employer] The Role of the Imm ature [...] Organization Address City/State/ZIP Code Phon e Number [place] [id number] (ABNORMAL) Hemoglobin and Hematocrit, blood (01/21/2022 10:50 AM EST) P athologist Signature Hemoglobin 8.0 (L) 13.7 - 16.5 [facility] g/dL [facility] Comment: This result has been called to ANASTASIA ARCINIEGA by Jim Montesinos on 01 21 2022 at 1105, and has been read back. Hematocrit 22.3 (L) 40.5 - 48.5 % [facility] Comment: This result has been [...] Organization Address City/State/[place] [address] Fibrinogen (01/21/2022 10:50 AM EST) P athologist Signature Fibrinogen 209 200 - 393 [facility] mg/dL [facility] Comment: OR Result called by [...] Organization Address City/State/[place] [address] (ABNORMAL) BLOOD GAS 2 ARTERIAL (01/21/2022 10:45 AM EST) Analysis Performed At Patho logist Time Signature pH Art 7.38 7.35 - [facility] 7.45 [facility] pCO2 Art 47 (H) 35 - 45 [facility] mmHg [facility] pO2 Art 468 (H) 85 - 104 [facility]ORATORY HCO3 Art 27.4 (H) 20.0 - [facility] 26.0 [facility] mmol/L [facility] BE Art 2.3 -3.0 - 3.0 [facility] mmol/L [facility] Hgb Blood Gas 8.5 (L) 13.7 - [facility] 16.5 g/dL [facility] O2HB Art 99.0 (H) 94.0 - [facility] 97.0 % [facility] COHB Art 0.1 % [facility] Comment: Nonsmokers: 0.5-1.5% COHB Smokers: Variable, but usually less than 10% Toxic: 20-30% COHB Lethal: Greater than 60% COHB METHB Art 0.3 <=1.5 % [facility] Na Whole Blood 132 (L) 135 - 145 mmol/L [facility] K Whole Blood 6.1 (Critical) 3.5 - 5.0 mmol/L [facility] Comment: Critical notified to Donnie Vasquez MD y supervisor instrument maintenance immediately following run time. Please note: Patients with WBC >100,000 may have falsely elevated Potassium levels. Contact the Clinical Chemistry L aboratory if there are any questions. ICa Whole Blood 0.96 (L) 1.15 - 1.33 mmol/L [facility] Comment: Note: ??Total bilirubin higher than 20 m g/dL may lead to falsely low ionized calcium. CL Whole Blood 101 98 - 107 mmol/L [facility] Gluc Whole Bld 217 (H) 65 - 199 mg/dL [facility] Comment: Diabetes: >=200 mg/dL plus symp toms. Lactate WB 0.8 0.5 - 2.2 mmol/L [facility] Specimen Anatomical Collection Method Collection Time Receive d Time (Source) Location / / Volume Laterality Blood 01/21/2022 10:45 01/21/2022 AM EST 10:45 AM EST Danny Jewell MD CHEMISTRY ORDERABLES Performing Organization Address City/State/[place] [address] (ABNORMAL) BLOOD GAS 2 ARTERIAL (01/21/2022 10:19 AM EST) Analysis Performed At Patho logist Time Signature pH Art 7.32 (L) 7.35 - [facility] 7.45 [facility] pCO2 Art 48 (H) 35 - 45 [facility]ORY pO2 Art 469 (H) 85 - 104 [facility]ATORY HCO3 Art 24.4 20.0 - [facility] 26.0 [facility] mmol/L [facility] BE Art -1.7 -3.0 - 3.0 [facility] mmol/L [facility] Hgb Blood Gas 8.6 (L) 13.7 - [facility] 16.5 g/dL [facility] O2HB Art 99.3 (H) 94.0 - [facility] 97.0 % [facility] COHB Art 0.2 % [facility] Comment: Nonsmokers: 0.5-1.5% COHB Smokers: Variable, but usually less than 10% Toxic: 20-30% COHB Lethal: Greater than 60% COHB METHB Art 0.3 <=1.5 % [facility] Na Whole Blood 127 (L) 135 - 145 mmol/L [facility] K Whole Blood 6.4 (Critical) 3.5 - 5.0 mmol/L [facility] Comment: Critical notified to Donnie Vasquez MD y supervisor instrument maintenance immediately following run time. Please note: Patients with WBC >100,000 may have falsely elevated Potassium levels. Contact the Clinical Chemistry L aboratory if there are any questions. ICa Whole Blood 1.00 (L) 1.15 - 1.33 mmol/L [facility] Comment: Note: ??Total bilirubin higher than 20 m g/dL may lead to falsely low ionized calcium. CL Whole Blood 101 98 - 107 mmol/L [facility] Gluc Whole Bld 215 (H) 65 - 199 mg/dL [facility] Comment: Diabetes: >=200 mg/dL plus symp toms. Lactate WB 0.9 0.5 - 2.2 mmol/L [facility] Specimen Anatomical Collection Method Collection Time Receive d Time (Source) Location / / Volume Laterality Blood 01/21/2022 10:19 01/21/2022 AM EST 10:19 AM EST Danny Jewell MD CHEMISTRY ORDERABLES Performing Organization Address City/State/ZIP Code Phon e Number [place] [phone] [address] Drive (ABNORMAL) BLOOD GAS 2 VENOUS (01/21/2022 9:52 AM EST) P athologist Signature pH Ryan 7.33 7.32 - [facility] 7.42 [facility] pCO2 Ryan 48 41 - 51 [facility]ORY pO2 Ryan 43 (H) 25 - 40 [facility]ORY HCO3 Ryan 24.6 mmol/L [facility] BE Ryan -1.3 mmol/L [facility] Hgb Blood Gas 7.4 (L) 13.7 - [facility] 16.5 g/dL [facility] O2HB Ryan 75.4 % [facility] COHB Ryan 0.9 % [facility] Comment: Nonsmokers: 0.5-1.5% COHB Smokers: Variable, but usually less than 10% Toxic: 20-30% COHB Lethal: Greater than 60% COHB METHB Ryan 0.0 <=1.5 % [facility] Na Whole Blood 128 (L) 135 - 145 mmol/L [facility] K Whole Blood 4.7 3.5 - 5.0 mmol/L [facility] Comment: Please note: Patients with WBC >100,000 may have falsely elevated Potassium levels. Contact the Clinical Chemistry L aboratory if there are any questions. ICa Whole Blood 0.89 (Critical) 1.15 - 1.33 mmol/L [facility] Comment: Critical notified to Donnie Vasquez MD y supervisor instrument maintenance immediately following run time. Note: ??Total bilirubin higher than 20 m g/dL may lead to falsely low ionized calcium. CL Whole Blood 104 98 - 107 mmol/L [facility] Gluc Whole Bld 152 65 - 199 mg/dL [facility] Comment: Diabetes: >=200 mg/dL plus symp toms Lactate WB 1.0 0.5 - 2.2 mmol/L [facility] BGas Source Venous [facility] Specimen Anatomical Collection Method Collection Time Receive d Time (Source) Location / / Volume Laterality Blood 01/21/2022 9:52 AM 9:52 EST AM EST Danny Jewell MD CHEMISTRY ORDERABLES Performing Organization Address City/State/[place] [address] (ABNORMAL) BLOOD GAS 2 ARTERIAL (01/21/2022 9:49 AM EST) Analysis Performed At Patho logist Time Signature pH Art 7.38 7.35 - [facility] 7.45 [facility] pCO2 Art 41 35 - 45 [facility] mmHg [facility] pO2 Art 486 (H) 85 - 104 [facility]ATORY HCO3 Art 23.8 20.0 - [facility] 26.0 [facility] mmol/L [facility] BE Art -1.3 -3.0 - 3.0 [facility] mmol/L [facility] Hgb Blood Gas 7.8 (L) 13.7 - [facility] 16.5 g/dL [facility] O2HB Art 98.6 (H) 94.0 - [facility] 97.0 % [facility] COHB Art 0.3 % [facility] Comment: Nonsmokers: 0.5-1.5% COHB Smokers: Variable, but usually less than 10% Toxic: 20-30% COHB Lethal: Greater than 60% COHB METHB Art 0.3 <=1.5 % [facility] Na Whole Blood 129 (L) 135 - 145 mmol/L [facility] K Whole Blood 5.1 (H) 3.5 - 5.0 mmol/L [facility] Comment: Please note: Patients with WBC >100,000 may have falsely elevated Potassium levels. Contact the Clinical Chemistry L aboratory if there are any questions. ICa Whole Blood 0.97 (L) 1.15 - 1.33 mmol/L [facility] Comment: Note: ??Total bilirubin higher than 20 m g/dL may lead to falsely low ionized calcium. CL Whole Blood 102 98 - 107 mmol/L [facility] Gluc Whole Bld 159 65 - 199 mg/dL [facility] Comment: Diabetes: >=200 mg/dL plus symp toms. Lactate WB 1.0 0.5 - 2.2 mmol/L [facility] Specimen Anatomical Collection Method Collection Time Receive d Time (Source) Location / / Volume Laterality Blood 01/21/2022 9:49 AM 9:49 EST AM EST Danny Jewell MD CHEMISTRY ORDERABLES Performing Organization Address City/State/[place] [address] (ABNORMAL) BLOOD GAS 2 ARTERIAL (01/21/2022 8:20 AM EST) Analysis Performed At Patho logist Time Signature pH Art 7.42 7.35 - [facility] 7.45 [facility] pCO2 Art 41 35 - 45 [facility] mmHg [facility] pO2 Art 322 (H) 85 - 104 [facility]ORY HCO3 Art 25.6 20.0 - [facility] 26.0 [facility] mmol/L [facility] BE Art 1.1 -3.0 - 3.0 [facility] mmol/L [facility] Hgb Blood Gas 11.0 (L) 13.7 - [facility] 16.5 g/dL [facility] O2HB Art 98.4 (H) 94.0 - [facility] 97.0 % [facility] COHB Art 0.3 % [facility] Comment: Nonsmokers: 0.5-1.5% COHB Smokers: Variable, but usually less than 10% Toxic: 20-30% COHB Lethal: Greater than 60% COHB METHB Art 0.3 <=1.5 % [facility] Na Whole Blood 139 135 - 145 mmol/L [facility] K Whole Blood 4.0 3.5 - 5.0 mmol/L [facility] Comment: Please note: Patients with WBC >100,000 may have falsely elevated Potassium levels. Contact the Clinical Chemistry L aboratory if there are any questions. ICa Whole Blood 1.13 (L) 1.15 - 1.33 mmol/L [facility] Comment: Note: ??Total bilirubin higher than 20 m g/dL may lead to falsely low ionized calcium. CL Whole Blood 105 98 - 107 mmol/L [facility] Gluc Whole Bld 129 65 - 199 mg/dL [facility] Comment: Diabetes: >=200 mg/dL plus symp toms. Lactate WB 1.1 0.5 - 2.2 mmol/L [facility] Specimen Anatomical Collection Method Collection Time Receive d Time (Source) Location / / Volume Laterality Blood 01/21/2022 8:20 AM 8:20 EST AM EST Danny Jewell MD CHEMISTRY ORDERABLES Performing Organization Address City/State/[place] [address] COVID-19 PCR (01/21/2022 7:35 AM EST) [facility] Method Time Signature SARS-CoV-2 Not Detected Not Detected GABRIELLE RNA PCR [facility] Comment: This result should [...] using the Simplexa COVID-19 Direct Assay by invendo medicalneha alvarez as authorized by the FDA issued [...] Department of Pathology and Laboratory Medicine at [facility], certified under the Clinical Laboratory Improvement [...] fact sheets at the following FDA website: https://www.fda.gov/medical-devices/ebzysnlpkyk-vuygzot-2352-wwpng-62-bkwonlpqo- zzi-rwfgbyqtpmwkau-bngjlnd-devices/qvotz-kpqmtdjmude-hwkg SARS-CoV-2 Source MENTAL HEALTH PRACTITIONER Swab [facility] Specimen (Source) Anatomical Collection Method Collection Time Re ceived Time Location / / Volume Laterality Nasopharyngeal Swab 01/21/2022 7:35 01/21 AM EST 9:15 AM EST Comment: Symptoms->Surveillance Resulting Agency Comment Spec In Lab Danny Jewell MD MICROBIOLOGY - GENERAL ORDER CATHY Performing Organization Address City/State/[place] [address] Transesophageal Echo/OR (01/21/2022 7:18 AM EST) Anatomical Region Laterality Modality Other Specimen (Source) Anatomical Collection Method Collection Time Re ceived Time Location / / Volume Laterality 01/21/2022 7:18 AM EST Narrative 01/21/2022 1:18 PM EST ? Version: 1 + + ? + + : ?: ? : ? : + + ? [facility] ?: ? : ? : ? : ? : ? : ? [address] ? : ? : ? + + ?[place] [address] ?Voice: ?Fax: Name: VINOD OCHOA ?Study Date: 01/21/2022, 7: 18 AM ?Patient Location: OR^OR16^A : 1955 (MM/DD/YYYY) ? Age: 66 Years Gender: Male Ordering Physician: [id number]^BEST^DANNY^N^^^^^EPIC^^^^PRO VID Referring Physician: [id number]^BEST^IFRAHPARRISH^N^^^^^EPIC^^^^PRO VID Reason For Study: Cardiac disease ? [...] + : : : : + + [facility] : : : : : : [address] : : + + [place] [address] Voice: Fax: Name: VINOD OCHOA Study Date: , 7: 18 AM Patient Location: OR^OR1 6^A : 1955 (MM/DD/YYYY) Age: 66 Years Gender: Male Ordering Physician: [id number]^BEST^DANNY^N^^^^^EPIC^^^^PRO VID Referring Physician: [id number]^DANNY^N^^^^^EPIC^^^^PRO VID Reason For Study: Cardiac disease Conclusions [...] :: + + : : : :: 6 : large : : : :: + + : : : :: 1516 : diffuse : : --+ Reading Physician --+ : Donnie Vasquez MD 01/21/2022, 1:18 PM : --+ Ordering Physician: DANNY JEWELL Referring Physician: DANNY JEWELL Performed By: Donnie Vasquez MD Danny Jewell MD ECHO ORDERABLES Prepare RBC (01/21/2022 6:35 AM EST) P athologist Signature Dispensed? Yes [facility] Specimen Anatomical Collection Method Collection Time Receive d Time (Source) Location / / Volume Laterality Blood 01/21/2022 6:35 AM 6:31 EST AM EST Danny Jewell MD BLOOD BANK ORDERABLES Performing Organization Address City/State/[place] [address] POCT Glucose (01/21/2022 6:26 AM EST) P athologist Signature POC Glucose 117 65 - 199 [facility] mg/dL [facility] Comment: Supplemental ranges: <140 mg/dL before meals <180 mg/dL all other times of the day Specimen Anatomical Collection Method Collection Time Receive d Time (Source) Location / / Volume Laterality Blood 01/21/2022 6:26 AM 2 6:26 EST AM EST Danny Jewell MD POINT OF CARE TEST ORDERABLE S Performing Organization Address City/State/[place] [address] documented in this encounter Visit Diagnoses Not on filedocumented in this encounter Admitting Diagnoses Diagnosis CAD (coronary artery disease) Coronary atherosclerosis of unspecified type of vessel, yocha dehe or graft documented in this encounter Administered Medications Inactive Administered Medications - up to 3 most recent administrations Medication Order MAR Action Action Date Dose Rate Site acetaminophen (Tylenol) tablet Given 01/29/2022 9:28 PM EDT 1,00 0 mg 1,000 mg 1,000 mg, Oral, EVERY 8 HOURS SCHEDULED, First dose on 01/25/22 at 2000, Until Discontinued Given 01/29/2022 1:41 [...] If unable to take PO, may give MA, Routine Given 01/30/2022 8:51 AM EDT 81 mg Given 01/29/2022 8:07 AM EDT 81 mg aspirin suppository 300 mg Given 01/23/2022 12:32 PM EST 300 mg 300 mg, Rectal, DAILY, First dose on Thu01/21/22 at 1330, Until Discontinued, Start on Post-Op Day 0, please give within 6 hours upon arrival to Unit. Give MA if unable to take PO, Routine Given [...] EVERY 8 HOURS SCHEDULED, First dose on 01/25/22 at 2000, Until Discontinued amLODIPine (Norvasc) tablet [...] Chong RN) 0851 (Given - Provider: Pili Yan RN) 0826 (Give n - Provider: Berenice Salazar RN) 81 mg, Oral, DAILY, First dose on 07/07 at 1330, Until Discontinued, Start on Post-Op Day 0, please give within 6 hours upon arrival to Unit. If unable to take PO, may give MA, Routine aspirin suppository 300 mg(Linked Group 1) 0807 (See A lternative - Provider: Dereje Chong RN) 0851 (See Alternative - Provider: Pili Yan, ESTEFANIA) 0826 (See Alternative - Provider: Berenice Salazar, ESTEFANIA) 300 mg, Rectal, DAILY, First dose on Thu01/21/22 at 1330, Until Discontinued, Start on Post-Op Day 0, please give within 6 hours upon arrival to Unit. Give MA if unable to take PO, Routine atorvastatin [...] 0.2 mg 0851 (Given - Provider: Pili Yan, ESTEFANAI)2040 (Given - Provider: Elizabeth Leija, ESTEFANIA) 08 (Given - Provider: Berenice Salazar, ESTEFANIA) 0.2 mg, Oral, 2 TIMES DAILY, First dose (after last modification) on Thu01/30/22 at 0900, Until Discontinued, Routine furosemide (Lasix) tablet 20 mg 08 (Given - Provider: Dereje Chong RN) 08 (Given - Provider: Pili Yan RN) 08 (Given - Provider: Berenice Salazar RN) 20 mg, Oral, DAILY, First dose on [...] RN) 0744 (Given - Provider: Berenice Salazar, ESTEFANIA)1152 (Given - Provider: Berenice Salazar, ESTEFANIA) 1-6 Units, Subcutaneous, 3 TIMES DAILY B [...] 6 mg 2010 (Given - Provider: Elizabeth seaman, ESTEFANIA) 2040 (Given - Provider: Elizabeth Leija, ESTEFANIA) 6 mg, Oral, NIGHTLY, First dose on Sun at 2100, Until Discontinued, Routine metFORMIN (Glucophage) [...] RN)2010 (Given - Provider: Elizabeth Leija, ESTEFANIA) 0851 (Given - Provider: Pili Yan RN)2040 (Given - Provider: Elizabeth Leija, ESTEFANIA) 0826 (Given - Provider: Berenice Salazar, ESTEFANIA) 100 mg, Oral, EVERY 12 HOURS SCHEDULED ( 2 times per day), First dose (after last modification) on Thu01/28/22 at 0900, Until Discontinued, Hold for HR<60. Hold for SBP<90, Routine pantoprazole EC (Protonix) tablet 40 mg 08 (See Alte rnative - Provider: Dereje Chong RN)08 (Given - Provider: Dereje Chong RN) 0852 (Given - Provider: Pili Yan RN) 08 (Given - Provider: Berenice Salazar RN) 40 [...] ER (K-Dur/Klor-Con) tablet 20 mEq ( COMPLETED) 811 (Given - Provider: Dereje Chong RN) 20 mEq, Oral, ONCE, 1 dose, [...] 2010 (Given - Provider: Elizabeth Leija RN) 2100 (Not Given - Provider: Elizabeth Leija RN - Reason: Patient/family refused) 2 tablet, Oral, DAILY, First dose on Thu01/22/22 at 2100, Until Discontinued, Post-op day 1, Routine sodium chloride 0.9 % (flush) (BD PosiFlush Normal Sung ine 0.9) flush 5 mL 0218 (Given - Provider: Vivian Tyson RN)0617 (Given - Provider: Vivian Tyson RN)1430 (Given - Provider: Dereje Chong, ESTEFANIA)2011 (Given - Provider: Elizabeth Leija RN) 0715 (Not Given - Provider: Elizabeth ayoub RN - Reason: Patient/family refused)1515 (Given - Provider: Pili Yan, ESTEFANIA)2315 (Not Given - Provider: Elizabeth Leija RN - Reason: Patient/family refused) 0744 (Given - Provider: Berenice Salazar, ESTEFANIA)1515 (Due) 5 mL, Intravenous, EVERY 8 HOURS, First dose on Thu01/27/22 at 1515, Until Discontinued, Routine 2315 (Not [...] If unable to take PO, may give MA
Routine Or aspirin suppository 300 mgJump to med 300 mg, Rectal, DAILY, First dose on Thu01/21/22 at 1330, Until Discontinued
Start on Post-Op Day 0, please give within 6 hours upon arrival to Unit. Give MA if unable to take PO
Routine Group [...]
Routine documented in this encounter Care Teams Wet Pan Mixer Relationship Specialty Start Date End Date Vladimir Muñoz DO PCP - General Family Medicine 01/19/18 [address] [place] [address] documented as of this encounter
--- OUTSIDE RECORDS SUMMARY | 2022-10-07 08:53 | XMS_ITS | Encounter Summary ---
:1955 Author Organization [place] [address] Care Team Providers Name Role Phone Vladimir Muñoz DO Primary Care Provider Encounter Details Date Type Department Care Team Description 01/13/2022 Surgery Rubber Curer Polo Luna, CARDIAC CATHETERIZATION [facility] [place] [address] CARDIOLOGY DEPT. [phone] [place], [place] [address] (Wo rk) Social History Tobacco [...] by your doctor, do not take any erkb-ybd-pnqbajn medicines or herbal preparations without first discussing this with your doctor or pharmacist. There is the possibility of side effects and interactions when these are combined. Follow Up Care Who to call with questions or problems If there are any questions or problems that you think might be related to your cardiac cath or angioplasty, contact the aircraft life support fitter tongue presser by calling [facility] at . documented in this encounter [...] H&P Patient Name: Burton Mcnair Jr. : [id number] y.o. MR#: [id number] Chief Complaint: angina Planned Procedure: coronary angiogrphy [...] Note: Patient Name: Burton Mcnair Jr. : [id number] MR#: [id number] Case Date: 01/13/2022 Rope Cutter: Surgeon(s) and Role: * Polo Beckham MD - Primary * Yuko Lilly PA - Physician Color Checker Preoperative diagnosis: ASCVD (arteriosclerotic cardiovascular disease) [I25.10] Postoperative diagnosis: * ASCVD * Procedure(s) performed: [facility] Coronary angiography Left ventriculography Access: right radial [...] Catrachita Baez MD [facility] ANESTHESIOLOGY [place], [place] [address] (Wo rk) 12/15/2022 Office Visit Cardiology Damián Hart MD [facility] [place], [place] [address] (Wo rk) 03/25/2050 Hospital Encounter Surgery Citlalli Richardson MD Vocal cord paralysis [facility] OTOLARYNGOLOGY [place], [place] [address] (Wo rk) documented as of [...] Signature POC Glucose 121 65 - 199 [facility] mg/dL [facility] Comment: Supplemental ranges: <140 mg/dL before meals <180 mg/dL all other times of the day Specimen Anatomical Collection Method Collection Time Receive d Time (Source) Location / / Volume Laterality Blood 01/13/2022 11:30 01/13/2022 AM EST 11:30 AM EST Polo Beckham MD POINT OF CARE TEST ORDERABLE S Performing Organization Address City/State/[place] [address] (ABNORMAL) Point of Care Blood Gas Historical (01/13/2022 10:37 AM EST) Patholo gist Method Time Signature POC pH 7.41 7.35 - [facility] 7.45 [facility] POC PCO2 38 35 - 45 [facility] mmHg [facility] POC PO2 78 (L) 85 - 104 [facility] LABORATORY POC Base Excess -1.0 -3.0 - 3.0 [facility] K mmol/L [facility] POC HCO3 23.9 20.0 - [facility] 26.0 [facility] mmol/[facility] POC Sodium 139 135 - 145 [facility] mmol/L [facility] POC Potassium 3.9 3.5 - 5.0 [facility] mmol/L [facility] POC Ionized Ca 1.18 1.15 - [facility] 1.33 [facility] mmol/[facility] POC Hematocrit 30.0 (L) 40.0 - [facility] 51.0 % [facility] POC Calc Hgb 10.2 (L) 13.7 - [facility] 17.5 g/dL [facility] Comment: The calculation of hemoglobin f rom hematocrit assumes a normal MCHC. POC Bgas Loc CC LAB [facility] Specimen Anatomical Collection Method Collection Time Receive d Time (Source) Location / / Volume Laterality Blood 01/13/2022 10:37 01/16/2022 9:00 AM EST AM EST Polo Beckham MD CHEMISTRY ORDERABLES Performing Organization Address [facility]/State/ZIP [place] [address] CARDIAC CATHETERIZATION (01/13/2022 10:31 AM EST) Anatomical Region Laterality Modality Other Specimen (Source) Anatomical Location Collection Method / Collectio n Time Received Time / Laterality Volume Narrative 01/14/2022 1:44 PM EST ?[facility] ? Cardiac Cathete rization/Intervention Report ? Patient Name: Newberry Jr, Burton D. ? Procedure Date: 01/13/2022 ? A #: [id number] ? Primary Physician: Rubén, Polo T ? Case #: [id number] ? File Name: [id number] ? Catheterization Order Number: [id number] ? [facility] ? Final Report [place], [place] ? Patient Name: ? Burton D. Gar Jr ? ID#: ?[id number] ? : ?1955 ? Procedure Date: ? [...] designated as ASA C lass III. The [facility] clinical frailty scale ?is 3: Managing Well. ? Diagnostic Tests: ?Medications Prior to Procedure: ? Aspirin, Beta Yecenia, C alcium Channel Blocking Agent, Long Acting ? Nitrate and Statin. ? Indications for Diagnostic Cath: ?The priority of the diagnostic procedure was Elective. The indication for ?the recyclable materials distributor visit is worsening angina. Chest pain symptom [...] Signature POC Glucose 139 65 - 199 [facility] mg/dL [facility] Comment: Supplemental ranges: <140 mg/dL before meals <180 mg/dL all other times of the day Specimen Anatomical Collection Method Collection Time Receive d Time (Source) Location / / Volume Laterality Blood 01/13/2022 9:25 AM 9:25 EST AM EST Polo Beckham MD POINT OF CARE TEST ORDERABLE S Performing Organization Address City/State/[place] [address] Differential, Automated (01/13/2022 9:11 AM EST) athologist Signature Neutrophils % 67.2 % [facility] Neutr Abs (ANC) 3.69 1.70 - [facility] 6.10 [facility] x10(3)/[facility] LABORATORY Lymphocytes % 19.5 % [facility] Lymphocytes Abs 1.1 0.9 - 3.2 [facility] x10(3)/[facility] LABORATORY Monocytes % 9.1 % [facility] Monocyte Abs 0.5 0.3 - 0.9 [facility] x10(3)/[facility] LABORATORY Eosinophils % 2.9 % [facility] Eosinophils Abs 0.2 0.0 - 0.4 [facility] x10(3)/[facility] LABORATORY Basophils % 1.1 % [facility] Basophils Abs 0.1 0.0 - 0.1 [facility] x10(3)/[facility] LABORATORY Immature Gran % 0.20 % [facility] Comment: Immature granulocytes(IG's)percentage an d absolute count will include metamyelocytes, myelocytes, and promyelo cytes. Blood smears from CBCs yielding IG's will be scanned manually for concor dance. If this scan disagrees with the automated IG or if promyelocytes are not ed, a manual differential will be performed. Nikole Gran Abs 0.01 0.00 - 0.04 x10(3)/[facility] Specimen Anatomical Collection Method Collection Time Receive d Time (Source) Location / / Volume Laterality Blood Venous Draw / 01/13/2022 9:11 AM 01/13/20 22 9:36 Unknown EST AM EST Resulting Agency Comment Spec In Lab Damián Hart MD HEMATOLOGY ORDERABLES Performing Organization Address City/State/[place] [address] Basic Metabolic Panel (non-fasting) (01/13/2022 9:11 AM EST) athologist Signature Glucose Lvl 141 65 - 199 [facility] mg/dL [facility] Comment: Diabetes: >=200 mg/dL plus symp toms BUN 12 10 - 20 mg/dL [facility] Creatinine 1.04 0.80 - 1.50 mg/dL [facility] Sodium 140 135 - 145 mmol/L [facility] Potassium 4.0 3.5 - 5.0 mmol/L [facility] Comment: Please note: ??Patients with WBC >100,00 0 may have falsely elevated Potassium levels. ??For accurate Potassium quantif ication in these patients send serum separator tube (gold top) for subsequent determinations. ??Contact the Clinical Chemistry Laboratory if there are any qu estions. Chloride 103 98 - 107 mmol/L [facility] CO2 24 22 - 31 mmol/L [facility] Anion Gap 13 5 - 15 mmol/L [facility] Calcium 9.2 8.5 - 10.5 mg/dL [facility] Estimated GFR 74 >=60 mL/min/1.73 m?? [facility] Comment: This patient? s [...] Organization Address City/State/[place] [address] (ABNORMAL) Hemogram (01/13/2022 9:11 AM EST) Analysis Performed At Patho logist Time Signature WBC 5.5 4.0 - 9.5 [facility] x10(3)/[facility] LABORATORY RBC 3.90 (L) 4.58 - [facility] 5.54 [facility] x10(6)/[facility] LABORATORY Hemoglobin 12.3 (L) 13.7 - [facility] 16.5 g/dL [facility] Hematocrit 33.9 (L) 40.5 - [facility] 48.5 % [facility] MCV 86.9 82.9 - [facility] 93.1 [facility] LABORATORY MCH 31.5 27.5 - [facility] 32.1 pg [facility] MCHC 36.3 (H) 32.0 - [facility] 35.7 g/dL [facility] Platelets 183 145 - 357 [facility] x10(3)/[facility] LABORATORY RDWSD 40.5 36.0 - [facility] 45.0 [facility] LABORATORY RDWCV 12.8 11.4 - [facility] 13.8 % [facility] MPV 9.2 7.6 - 12.9 [facility] LABORATORY nRBC % Auto 0.0 % [facility] nRBC Abs Auto 0.000 0.000 - [facility] 0.000 [facility] x10(3)/[facility] LABORATORY Specimen Anatomical Collection Method Collection Time Receive d Time (Source) Location / / Volume Laterality Blood Venous Draw / 01/13/2022 9:11 AM 01/13/20 9:36 Unknown EST AM EST Resulting Agency Comment Spec In Lab Damián Hart MD HEMATOLOGY ORDERABLES Performing Organization Address City/State/[place] [address] documented in this encounter [...] (BD PosiFl ush Normal Saline 0.9) flush 5 mL 5 [...] multi-dose injection 1022 (Given - Provider: Polo Rodriguez RN) ONCE PRN, Starting on Thu01/13/22 at 102 2, Until Thu01/13/22 at 1607, Intra- Operative (Intra-Procedure), Routine heparin (porcine) (1,000 units/mL) injection 1006 (Given - Provider: Polo Rodriguez [...] multi-dose injection 1002 (Given - Provider: Polo Rodriguez RN)1022 (Given - Provider: Darien Pringle RN) ONCE [...] (Intra-Procedure) documented in this encounter Care Teams Fiscal Officer Relationship Specialty Start Date End Date Vladimir Muñoz DO PCP - General Family Medicine 01/19/18 [address] [place], [place] [id number] documented as of this encounter
--- OUTSIDE RECORDS SUMMARY | 2022-10-07 08:54 | XMS_ITS | Encounter Summary ---
:1955 Author Organization [facility] [address] Care Team Providers Name Role Phone Vladimir Muñoz DO Primary Care Provider Encounter Details Date Type Department Care Team Description 06/29/2018 Telephone Cardiology at [facility] Benedicto Oconnor Jr., MD [address] [place] [address] [place], [place] [id number] (Wo rk) Social History Tobacco Use Types [...] He is saying he is also SOB [phone] documented in this encounter Plan of Treatment Upcoming Encounters Date Type Specialty Care Team Description 03/25/2022 Anesthesia Event Surgery Catrachita Baez MD [facility] ANESTHESIOLOGY [place], [place] [address] (Wo rk) 12/15/2022 Office Visit Cardiology Damián Hart MD [facility] [place] [address] (Wo rk) 03/25/2050 Hospital Encounter Surgery Citlalli Richardson MD Vocal cord paralysis [facility] OTOLARYNGOLOGY [place], [place] [address] (Wo rk) documented as of this encounter Visit Diagnoses Not on filedocumented in this encounter Care Teams Jointer Submarine Cable Relationship Specialty Start Date End Date Vladimir Muñoz DO PCP - General Family Medicine 01/19/[address] [place] [address] documented as of this encounter
--- OUTSIDE RECORDS SUMMARY | 2022-10-07 08:54 | XMS_ITS | Encounter Summary ---
:1955 Author Organization [facility] [place] [address] Care Team Providers Name Role Phone Vladimir Muñoz DO Primary Care Provider Reason for Visit Reason Onset Date Comments Medication Refill 02/14/2019 Encounter Details Date Type Department Care Team Description 02/14/2019 Refill Cardiology at [facility] Benedicto Oconnor Jr., MD Medication Refill [address] [place] [address] A [phone] [place], [place] [address] (Wo rk) Social History [...] Baez MD [facility] ANESTHESIOLOGY [place], [place] [address] (Wo rk) 12/15/2022 Office Visit Cardiology Damián Hart MD [facility] [address] [place], [place] [address] (Wo rk) 03/25/2050 Hospital Encounter Surgery Citlalli Richardson MD Vocal cord paralysis [facility] OTOL[facility]OLOG[facility] [place], [place] [address] (Wo rk) documented as of this encounter Visit Diagnoses Diagnosis ASCVD (arteriosclerotic cardiovascular d isease) Unspecified cardiovascular disease Vocal cord paralysis Paralysis of vocal cords or larynx, unsp ecified documented in this encounter Care Teams Curing Bin Operator Relationship Specialty Start Date End Date Vladimir Muñoz DO PCP - General Family Medicine 01/19/18 [address] [place] [address] documented as of this encounter
--- OUTSIDE RECORDS SUMMARY | 2022-10-07 08:54 | XMS_ITS | Encounter Summary ---
:1955 Author Organization [facility] [place] [address] Care Team Providers Name Role Phone Vladimir Muñoz DO Primary Care Provider Reason for Visit Reason Comments Medication Refill Encounter Details Date Type Department Care Team Description 01/18/2021 Refill Cardiology at [facility] Damián Hart MD Medication Refill [address] [place] [address] [place] [address] [phone] (Wo rk) Social History Tobacco Use Types [...] Catrachita Baez MD [facility] ANESTHESIOLOGY [place], [place] [address] (Wo rk) 12/15/2022 Office Visit Cardiology Damián Hart MD [facility] [address] [place] [address] (Wo rk) 03/25/2050 Hospital Encounter Surgery Citlalli Richardson MD Vocal cord paralysis [facility] OTOL[facility]Y [place], [place] [address] (Wo rk) documented as of this encounter Visit Diagnoses Diagnosis Essential hypertension Unspecified essential hypertension Vocal cord paralysis Paralysis of vocal cords or larynx, unsp ecified documented in this encounter Care Teams Layout Artist Relationship Specialty Start Date End Date Vladimir Muñoz DO PCP - General Family Medicine 01/19/18 [address] [place] [address] documented as of this encounter
--- OUTSIDE RECORDS SUMMARY | 2022-10-07 08:54 | XMS_ITS | Encounter Summary ---
:1955 Author Organization [facility] [place] [address] Care Team Providers Name Role Phone Vladimir Muñoz DO Primary Care Provider Reason for Visit Reason Comments Follow-up 4 month f/u Angina, Using N TG some when he walks Encounter Details Date Type Department Care Team Description 05/26/2019 Office Visit Cardiology at [facility] Essential hy pertension; Sami Hanks MD Hyperlipidemia, unspecified hyperlipidem ia type; [address] [facility] ASCV D (arteriosclerotic cardiovascular disease); [address] [place] [address] [phone] Social History Tobacco Use Types Packs/Day Years [...] Catrachita Baez MD [facility] [address] ANESTHESIOLOGY [place], [place] [address] (Wo rk) 12/15/2022 Office Visit Cardiology Dami[facility] Hart MD [facility] [place], [place] [address] (Wo rk) 03/25/2050 Hospital Encounter Surgery Citlalli Richardson MD Vocal cord paralysis [facility] OTOLARYNGOLOGY [place], [place] [address] (Wo rk) documented as of this encounter Visit Diagnoses Diagnosis Essential hypertension Unspecified essential hypertension Hyperlipidemia, unspecified hyperlipidem ia type ASCVD (arteriosclerotic cardiovascular d isease) Unspecified cardiovascular disease Pedal edema Edema Vocal cord paralysis Paralysis of vocal cords or larynx, unsp ecified documented in this encounter Care Teams Client Services Coordinator Relationship Specialty Start Date End Date Vladimir Muñoz DO PCP - General Family Medicine 01/19/18 [address] [place] [address] documented as of this encounter
--- OUTSIDE RECORDS SUMMARY | 2022-10-07 08:54 | XMS_ITS | Encounter Summary ---
:1955 Author Organization [place] [address] Care Team Providers Name Role Phone Vladimir Muñoz DO Primary Care Provider Reason for Visit Reason Onset Date Comments Medication Refill 03/10/2019 Encounter Details Date Type Department Care Team Description 03/10/2019 Refill Cardiology at [facility] Benedicto Oconnor Jr., MD Medication Refill [address] [facility] [address] [place] [address] A [phone] [place], [place] [address] (Wo rk) Social History [...] Catrachita Baez MD [facility] ANESTHESIOLOGY [place], [place] [address] (Wo rk) 12/15/2022 Office Visit Cardiology Damián Hart MD [facility] [address] [place], [place] [address] (Wo rk) 03/25/2050 Hospital Encounter Surgery Citlalli Richardson MD Vocal cord paralysis [facility] OT[facility] [place], [place] [address] (Wo rk) documented as of this encounter Visit Diagnoses Diagnosis ASCVD (arteriosclerotic cardiovascular d isease) Unspecified cardiovascular disease Vocal cord paralysis Paralysis of vocal cords or larynx, unsp ecified documented in this encounter Care Teams Restaurant Hourly Team Member Relationship Specialty Start Date End Date Vladimir Muñoz DO PCP - General Family Medicine 01/19/18 [address] [place] [address] documented as of this encounter
--- OUTSIDE RECORDS SUMMARY | 2022-10-07 08:54 | XMS_ITS | Encounter Summary ---
:1955 Author Organization [facility] [place] [address] Care Team Providers Name Role Phone Vladimir Muñoz DO Primary Care Provider Reason for Visit Reason Comments Follow-up 3 months Coronary Artery Disease Encounter Details Date Type Department Care Team Description 07/21/2018 Office Visit Cardiology at [facility] ASCVD (arter iosclerotic cardiovascular disease); Sami Hanks MD Essential hypertension; [address] [facility] Peda [place] [address] [phone] Social History Tobacco Use Types Packs/Day Years [...] otherwise at the maximum. Low risk for [place]/ac [place] worsening given the last MIBI. Encouraged to keep up activity BP controlled Edema a side effect of meds- worse with prolonged sitting or increased sodium intake- reviewed Follow up 6 months documented in this encounter Plan of Treatment Upcoming Encounters Date Type Specialty Care Team Description 03/25/2022 Anesthesia Event Surgery Catrachita Baez MD [facility] ANESTHESIOLOGY [place], [place] [address] (Wo rk) 12/15/2022 Office Visit Cardiology Damián Hart MD [facility] [address] [place] [address] (Wo rk) 03/25/2050 Hospital Encounter Surgery Citlalli Richardson MD Vocal cord paralysis [facility] OT[facility]Y [place], [place] [address] (Wo rk) documented as of this encounter Visit Diagnoses Diagnosis ASCVD (arteriosclerotic cardiovascular d isease) Unspecified cardiovascular disease Essential hypertension Unspecified essential hypertension Pedal edema Edema Vocal cord paralysis Paralysis of vocal cords or larynx, unsp ecified documented in this encounter Care Teams Tailer In Relationship Specialty Start Date End Date Vladimir Muñoz DO PCP - General Family Medicine 01/19/18 [address] [place] [address] documented as of this encounter
--- OUTSIDE RECORDS SUMMARY | 2022-10-07 08:54 | XMS_ITS | Encounter Summary ---
:1955 Author Organization [facility] [place] [address] Care Team Providers Name Role Phone Librado Alvarado MD Primary Care Provider Reason for Visit Reason Comments Shortness of Breath Has a different feeling in h is throat while on incline when walking the dog. Encounter Details Date Type Department Care Team Description 12/22/2017 Office Visit Cardiology at [facility] Benedicto Oconnor Jr., Angina of effort [address] [facility] [address] [place] [address] [place], [place] [address] [place] [address] (Wo rk) Social History Tobacco Use Types [...] Baez MD [facility] ANESTHESIOLOGY [place], [place] [address] (Wo rk) 12/15/2022 Office Visit Cardiology Damián Hart MD [facility] [address] [place] [address] (Wo rk) 03/25/2050 Hospital Encounter Surgery Citlalli Richardson MD Vocal cord paralysis [facility] OTOLARYNGOLOGY [place], [place] [address] (Wo rk) documented as of [...] ecified documented in this encounter Care Teams Head Rigger Relationship Specialty Start Date End Date Librado Alvarado MD PCP - General 10/08/10 01/18/18 580 [facility] 11 [place] [address] documented as of this encounter
--- OUTSIDE RECORDS SUMMARY | 2022-10-07 08:54 | XMS_ITS | Encounter Summary ---
:1955 Author Organization [facility] [place] [address] Care Team Providers Name Role Phone Vladimir Muñoz DO Primary Care Provider Reason for Visit Reason Comments Follow-up 2 week fu after increasing R anolazine to 1000 BID. Feels better Encounter Details Date Type Department Care Team Description 01/19/2018 Office Visit Cardiology at [facility]con[facility] (arter iosclerotic cardiovascular disease); Sami Hanks MD Elevated blood pressure reading without diagnosis of hypertension [address] [facility] [place] [address] [phone] Social History Tobacco Use Types Packs/Day Years [...] 01/19/2018 8:20 AM EST Subjective: Patient ID: Burton [...] 03/25/2022 Anesthesia Event Surgery Catrachita Baez MD [facility] ANESTHESIOLOGY [place], [place] [address] ( rk) 12/15/2022 Office Visit Cardiology Damián Hart MD [facility] [place], [place] [address] ( rk) 03/25/2050 Hospital Encounter Surgery Citlalli Richardson MD Vocal cord paralysis [facility] OTOLARYNGOLOGY [place], [place] [address] (Wo rk) documented as of this encounter Visit Diagnoses Diagnosis ASCVD (arteriosclerotic cardiovascular d isease) Unspecified cardiovascular disease Elevated blood pressure reading without diagnosis of hypertension Vocal cord paralysis Paralysis of vocal cords or larynx, unsp ecified documented in this encounter Care Teams Ballet Teacher Relationship Specialty Start Date End Date Vladimir Muñoz DO PCP - General Family Medicine 01/19/[address] [place] [address] documented as of this encounter
--- OUTSIDE RECORDS SUMMARY | 2022-10-07 08:54 | XMS_ITS | Encounter Summary ---
:1955 Author Organization [facility] [place] [address] Care Team Providers Name Role Phone Vladimir Muñoz DO Primary Care Provider Encounter Details Date Type Department Care Team Description 05/28/2020 Telephone Cardiology at [facility] Damián Hart MD 580 [facility] [place] [address] [place] [address] (Wo rk) Social History Tobacco [...] order and verbalized understanding. [facility]. Nurse left a message at [facility] to update them on medication change. MD Hart updated Telephone Encounter - Azra Man RN - 06/08/2020 2:28 PM EDT Faviola, from [facility] called us to update us on his blood pressure reading. Patient had called PCP with concerns over leg swelling, Faviola noted we were looking for blood pressure readings and called to update us on patients status thus far. 06/05 150/85 06/06 158/85 06/07 160/80 [id number] Nurse updated [facility] that patient had stopped his chlorthalidone because [...] and would like a call back @ [phone]. Telephone Encounter - Keke Murcia RN - 05/28/2020 3:10 PM EDT Call placed to [employer] and spoke with customer service Cecy. If the patient uses medical support hose, he has used thigh-high before after a knee surgery. He is receptive to having a proper measurement through [employer] if needed. Reference: phone [phone] and fax [phone]. Call to patient to discuss Dr. Hart' [...] to take. Please call him back @ [phone] documented in this encounter Plan of Treatment Upcoming Encounters Date Type Specialty Care Team Description 03/25/2022 Anesthesia Event Surgery Catrachita Baez MD [facility] ANESTHESIOLOGY [place] [address] (Wo rk) 12/15/2022 Office Visit Cardiology Damián Hart MD [facility] [place] [address] (Wo rk) 03/25/2050 Hospital Encounter Surgery Citlalli Richardson MD Vocal cord paralysis [facility] ER OTOLARYNGOLOGY [place], [place] [address] (Wo rk) documented as of this encounter Visit Diagnoses Not on filedocumented in this encounter Care Teams Buff Wheel Fabricator Relationship Specialty Start Date End Date Vladimir Muñoz DO PCP - General Family Medicine 01/19/18 580 [place] [address] documented as of this encounter
--- OUTSIDE RECORDS SUMMARY | 2022-10-07 08:54 | XMS_ITS | Encounter Summary ---
:1955 Author Organization [facility] [place] [address] Care Team Providers Name Role Phone Vladimir Muñoz DO Primary Care Provider Encounter Details Date Type Department Care Team Description 08/15/2020 External Results Cardiology at [facility] Keke Murcia, RN 580 [place] [address] Social History Tobacco Use [...] Baez MD [facility] ANESTHESIOLOGY [place], [place] [address] (Wo rk) 12/15/2022 Office Visit Cardiology Damián Hart MD [facility] [address] [place] [address] (Wo rk) 03/25/2050 Hospital Encounter Surgery Citlalli Richardson MD Vocal cord paralysis [facility] OTOLARYNGOLOGY [place], [place] [address] (Wo rk) documented as [...] on filedocumented in this encounter Care Teams Squeak Rattle And Leak Repairer Relationship Specialty Start Date End Date Vladimir Muñoz DO PCP - General Family Medicine 01/19/18 580 [place] [address] documented as of this encounter
--- OUTSIDE RECORDS SUMMARY | 2022-10-07 08:54 | XMS_ITS | Encounter Summary ---
:1955 Author Organization [place] [place] [address] Care Team Providers Name Role Phone Vladimir Muñoz DO Primary Care Provider Encounter Details Date Type Department Care Team Description 07/09/2020 Telephone Cardiology at [facility] Keke Murcia, RN 580 [place] [address] Social History Tobacco Use Types Packs/Day Years Used Date Smoking Tobacco: Former Cigarettes Smokeless Tobacco: Never Comments: quit at age 17 Alcohol Use Standard Drinks/Week Comments Yes 2 (1 standard drink = 0.6 oz pure alcoho l) beer on weekends Sex Assigned at Date Recorded Not on file documented as of this encounter Miscellaneous Notes Telephone Encounter - Keke Murcia, RN - 07/09/2020 11:53 AM EDTSummary: home BP readings since increase in coreg 12.5 mg to BID Jul 04 144/86 Jul 05 145/91 Jul 06 138/82 Jul 07 142/85 Jul 08 157/88 Jul 09 138/82 documented in this encounter Plan of Treatment Upcoming Encounters Date Type Specialty Care Team Description 03/25/2022 Anesthesia Event Surgery Catrachita Baez MD [facility] ANESTHESIOLOGY [place], [place] [address] (Wo rk) 12/15/2022 Office Visit Cardiology Damián Hart MD [facility] [place], [place] [address] (Wo rk) 03/25/2050 Hospital Encounter Surgery Citlalli Richardson MD Vocal cord paralysis [facility] OTOLARYNGOLOGY [place], [place] [address] (Wo rk) documented as of this encounter Visit Diagnoses Not on filedocumented in this encounter Care Teams Neighborhood Aide Relationship Specialty Start Date End Date Vladimir Muñoz DO PCP - General Family Medicine 01/19/18 580 [place] [address] documented as of this encounter
--- OUTSIDE RECORDS SUMMARY | 2022-10-07 08:54 | XMS_ITS | Encounter Summary ---
:1955 Author Organization [facility] [place] [address] Care Team Providers Name Role Phone Vladimir Muñoz DO Primary Care Provider Encounter Details Date Type Department Care Team Description 04/02/2021 Telephone Cardiology at [facility] Damián Hart MD 580 [place] [address] [place] [address] (Wo rk) Social History Tobacco [...] surgery on 04-09. Hannah is at ext [phone]. documented in this encounter Plan of Treatment Upcoming Encounters Date Type Specialty Care Team Description 03/25/2022 Anesthesia Event Surgery Catrachita Baez MD [facility] ANESTHESIOLOGY [place], [place] [address] (Wo rk) 12/15/2022 Office Visit Cardiology Damián Hart MD [facility] [place], [place] [address] (Wo rk) 03/25/2050 Hospital Encounter Surgery Citlalli Richardson MD Vocal cord paralysis [facility] OTOLARYNGOLOGY [place], [place] [address] (Wo rk) documented as of this encounter Visit Diagnoses Not on filedocumented in this encounter Care Teams Regulatory Assistant Relationship Specialty Start Date End Date Vladimir Muñoz DO PCP - General Family Medicine 01/19/18 580 [place] [address] documented as of this encounter
--- OUTSIDE RECORDS SUMMARY | 2022-10-07 08:54 | XMS_ITS | Encounter Summary ---
:1955 Author Organization [facility] [place] [address] Care Team Providers Name Role Phone Vladimir Muñoz DO Primary Care Provider Encounter Details Date Type Department Care Team Description 04/01/2018 Telephone Cardiology at [facility] Benedicto Oconnor Jr., MD [address] [place] 580 [facility] [place] [address] [place], [place] [address] (Wo rk) Social History Tobacco Use Types [...] away quickly. Please call him back at [phone]. documented in this encounter Plan of Treatment Upcoming Encounters Date Type Specialty Care Team Description 03/25/2022 Anesthesia Event Surgery Catrachita Baez MD [facility] ANESTHESIOLOGY [place], [place] [address] (Wo rk) 12/15/2022 Office Visit Cardiology Damián Hart MD [facility] [address] [place] [address] (Wo rk) 03/25/2050 Hospital Encounter Surgery Citlalli Richardson MD Vocal cord paralysis [facility] OTOLARYNGOLOGY [place], [place] [address] (Wo rk) documented as of this encounter Visit Diagnoses Not on filedocumented in this encounter Care Teams Fitness Sales Consultant Relationship Specialty Start Date End Date Vladimir Muñoz DO PCP - General Family Medicine 01/19/[address] [place] [address] (work) documented as of this encounter
--- OUTSIDE RECORDS SUMMARY | 2022-10-07 08:54 | XMS_ITS | Encounter Summary ---
:1955 Author Organization [facility] [place] [address] Care Team Providers Name Role Phone Vladimir Muñoz DO Primary Care Provider Encounter Details Date Type Department Care Team Description 06/13/2019 Telephone Cardiology at [facility] Benedicto Oconnor Jr., MD [address] [facility] [address] A 580 [facility] [place] [address] [place] [address] (Wo rk) Social History Tobacco [...] to $280. Please call him back at [phone]. documented in this encounter Plan of Treatment Upcoming Encounters Date Type Specialty Care Team Description 03/25/2022 Anesthesia Event Surgery Catrachita Baez MD [facility] ANESTHESIOLOGY [place], [place] [address] (Wo rk) 12/15/2022 Office Visit Cardiology Damián Hart MD [facility] [place], [place] [address] (Wo rk) 03/25/2050 Hospital Encounter Surgery Citlalli Richardson MD Vocal cord paralysis [facility] OTOLARYNGOLOGY [place], [place] [address] (Wo rk) documented as of this encounter Visit Diagnoses Not on filedocumented in this encounter Care Teams Straightedge Worker Relationship Specialty Start Date End Date Vladimir Muñoz DO PCP - General Family Medicine 01/19/18 580 [place] [address] documented as of this encounter
--- OUTSIDE RECORDS SUMMARY | 2022-10-07 08:54 | XMS_ITS | Encounter Summary ---
:1955 Author Organization [facility] [place] [address] Care Team Providers Name Role Phone Vladimir Muñoz DO Primary Care Provider Reason for Visit Reason Onset Date Comments Hypertension 06/18/2020 Encounter Details Date Type Department Care Team Description 06/18/2020 Telephone Cardiology at [facility] Damián Hart MD Hypertension [address] [facility] [place] [address] [place] [address] (Wo rk) Social History Tobacco [...] Telephone Encounter - Keke Murcia, RN - 06/25/2020 2:59 PM EDTSummary: blood [...] past week. Please call him back at [phone] Telephone Encounter - Kenroy Valdes RN - 06/18/2020 11:29 AM EDT Called [...] because he was in the ED at [facility] yesterday for high blood pressure. 165/105 Record to be faxed. He said it keeps going up. Please call him back at [phone]. documented in this encounter Plan of Treatment Upcoming Encounters Date Type Specialty Care Team Description 03/25/2022 Anesthesia Event Surgery Catrachita Baez MD [facility] ANESTHESIOLOGY [place], [place] [address] (Wo rk) 12/15/2022 Office Visit Cardiology Damián Hart MD [facility] [place], [place] [address] (Wo rk) 03/25/2050 Hospital Encounter Surgery Citlalli Richardson MD Vocal cord paralysis [facility] OTOLARYNGOLOGY [place], [place] [address] (Wo rk) documented as of this encounter Visit Diagnoses Diagnosis Essential hypertension Unspecified essential hypertension Vocal cord paralysis Paralysis of vocal cords or larynx, unsp ecified documented in this encounter Care Teams Archery Instructor Relationship Specialty Start Date End Date Vladimir Muñoz DO PCP - General Family Medicine 01/19/18 580 [place] [address] documented as of this encounter
--- OUTSIDE RECORDS SUMMARY | 2022-10-07 08:54 | XMS_ITS | Encounter Summary ---
:1955 Author Organization [place] [address] Care Team Providers Name Role Phone Vladimir Muñoz DO Primary Care Provider Reason for Visit Reason Comments Coronary Artery Disease Hypertension Encounter Details Date Type Department Care Team Description 08/20/2020 [facility] (ar teriosclerotic cardiovascular disease); [place] CORADO Hyperpiesia [address] [place] [address] Dr [place], [place] [phone] Social History Tobacco Use Types Packs/Day Years [...] Event Surgery Catrachita Baez MD [facility] ANESTHESIOLOGY [place], [place] [address] (Wo rk) 12/15/2022 Office Visit Cardiology Damián Hart MD [facility] [place], [place] [address] (Wo rk) 03/25/2050 Hospital Encounter Surgery Citlalli Richardson MD Vocal cord paralysis [facility] OTOLARYNGOLOGY [place], [place] [address] (Wo rk) documented as of this encounter Visit Diagnoses Diagnosis ASCVD (arteriosclerotic cardiovascular d isease) Unspecified cardiovascular disease Hyperpiesia Unspecified essential hypertension Vocal cord paralysis Paralysis of vocal cords or larynx, unsp ecified documented in this encounter Care Teams Dye House Worker Relationship Specialty Start Date End Date Vladimir Muñoz DO PCP - General Family Medicine 01/19/18 580 [place] [address] documented as of this encounter
--- OUTSIDE RECORDS SUMMARY | 2022-10-07 08:54 | XMS_ITS | Encounter Summary ---
:1955 Author Organization [facility] [place] [address] Care Team Providers Name Role Phone Librado Alvarado MD Primary Care Provider Encounter Details Date Type Department Care Team Description 11/23/[address] [facility] Benedicto Oconnor Jr., MD [address] [place] [address] [facility] [place] [address] [place], [place] [address] (Wo rk) Social History Tobacco Use Types [...] PT informed of appt Telephone Encounter - Courtney Jordan - 11/24/2017 8:30 AM EST appt scheduled 06/03/18 2:40 pm Telephone Encounter - Benedicto Oconnor Jr., MD - 11/23/2017 5:10 PM EST MIBI- no ischemia ST III Called and discussed Follow up 6 months documented in this encounter Plan of Treatment Upcoming Encounters Date Type Specialty Care Team Description 03/25/2022 Anesthesia Event Surgery Catrachita Baez MD [facility] ANESTHESIOLOGY [place], [place] [address] (Wo rk) 12/15/2022 Office Visit Cardiology Damián Hart MD [facility] [place], [place] [address] (Wo rk) 03/25/2050 Hospital Encounter Surgery Citlalli Richardson MD Vocal cord paralysis [facility] OTOLARYNGOLOGY [place], [place] [address] (Wo rk) documented as of this encounter Visit Diagnoses Diagnosis ASCVD (arteriosclerotic cardiovascular d isease) Unspecified cardiovascular disease Vocal cord paralysis Paralysis of vocal cords or larynx, unsp ecified documented in this encounter Care Teams Food And Beverage Operations Manager Relationship Specialty Start Date End Date Librado Alvarado MD PCP - General 10/08/10 01/18/18 580 [facility] 11 [place] [address] documented as of this encounter
--- OUTSIDE RECORDS SUMMARY | 2022-10-07 08:54 | XMS_ITS | Encounter Summary ---
:1955 Author Organization [facility] [place] [address] Care Team Providers Name Role Phone Vladimir Muñoz DO Primary Care Provider Encounter Details Date Type Department Care Team Description 12/04/2021 Telephone Cardiology at [facility] Damián Hart MD [address] [place] [address] [place] [address] [place] [address] (Wo rk) Social History Tobacco [...] Telephone Encounter - Keke Murcia, RN - 12/05/2021 3:47 PM EST Call back to Baljinder. He is pleased to be offered an [...] for the Chest Pressure to ease up. #[phone] documented in this encounter Plan of Treatment Upcoming Encounters Date Type Specialty Care Team Description 03/25/2022 Anesthesia Event Surgery Catrachita Baez MD [facility] ANESTHESIOLOGY [place], [place] [address] (Wo rk) 12/15/2022 Office Visit Cardiology Damián Hart MD [facility] [place], [place] [address] (Wo rk) 03/25/2050 Hospital Encounter Surgery Citlalli Richardson MD Vocal cord paralysis [facility] OTOLARYNGOLOGY [place], [place] [address] (Wo rk) documented as of this encounter Visit Diagnoses Not on filedocumented in this encounter Care Teams Safety And Skill Based Pay Manager Relationship Specialty Start Date End Date Vladimir Muñoz DO PCP - General Family Medicine 01/19/18 580 [place] [address] documented as of this encounter
--- OUTSIDE RECORDS SUMMARY | 2022-10-07 08:54 | XMS_ITS | Encounter Summary ---
:1955 Author Organization [facility] [place] [address] Care Team Providers Name Role Phone Librado Alvarado MD Primary Care Provider Encounter Details Date Type Department Care Team Description 12/30/2017 Telephone Cardiology at [facility] Benedicto Oconnor Jr., MD [address] [place] [address] [facility] [place] [address] [place] [address] (Wo rk) Social History Tobacco [...] Catrachita Baez MD [facility] ANESTHESIOLOGY [place], [place] [address] (Wo rk) 12/15/2022 Office Visit Cardiology Damián Hart MD [facility] [place], [place] [address] (Wo rk) 03/25/2050 Hospital Encounter Surgery Citlalli Richardson MD Vocal cord paralysis [facility] OTOLARYNGOLOGY [place], [place] [address] (Wo rk) documented as of this encounter Visit Diagnoses Not on filedocumented in this encounter Care Teams Title I Director Relationship Specialty Start Date End Date Librado Alvarado MD PCP - General 10/08/10 01/18/18 580 [facility] 11 [place] [address] documented as of this encounter
--- OUTSIDE RECORDS SUMMARY | 2022-10-07 08:54 | XMS_ITS | Encounter Summary ---
:1955 Author Organization [facility] [address] Care Team Providers Name Role Phone Vladimir Muñoz DO Primary Care Provider Reason for Visit Reason Onset Date Comments Medication Refill 03/19/2020 Encounter Details Date Type Department Care Team Description 03/19/2020 Refill Cardiology at [facility] Damián Hart MD Medication Refill [address] [facility] [place] [place] [address] [place] [address] [phone] (Wo rk) Social History Tobacco Use Types [...] Baez MD [facility] ANESTHESIOLOGY [place], [place] [address] (Wo rk) 12/15/2022 Office Visit Cardiology Damián Hart MD [facility] Dr [place], [place] [address] (Wo rk) 03/25/2050 Hospital Encounter Surgery Citlalli Richardson MD Vocal cord paralysis [facility] OTOLARYNGOLOGY [place], [place] [address] (Wo rk) documented as of this encounter Visit Diagnoses Diagnosis ASCVD (arteriosclerotic cardiovascular d isease) Unspecified cardiovascular disease Vocal cord paralysis Paralysis of vocal cords or larynx, unsp ecified documented in this encounter Care Teams Automatic Hemmer Relationship Specialty Start Date End Date Vladimir Muñoz DO PCP - General Family Medicine 01/19/18 580 [place] [address] documented as of this encounter
--- OUTSIDE RECORDS SUMMARY | 2022-10-07 08:54 | XMS_ITS | Encounter Summary ---
:1955 Author Organization [facility] [place] [address] Care Team Providers Name Role Phone Vladimir Muñoz DO Primary Care Provider Encounter Details Date Type Department Care Team Description 03/05/2020 Telephone Cardiology at [facility] Damián Hart MD [address] [place] [address] [place] [address] [place] [address] [phone] (Wo rk) Social History Tobacco Use Types [...] Says he has beenwalking 3 miles, including ekron without chest pain. Last summer he tried [...] less expensive he could be taking? # [phone] documented in this encounter Plan of Treatment Upcoming Encounters Date Type Specialty Care Team Description 03/25/2022 Anesthesia Event Surgery Catrachita Baez MD [facility] ANESTHESIOLOGY [place], [place] [address] (Wo rk) 12/15/2022 Office Visit Cardiology Damián Hart MD [facility] [address] [place] [address] (Wo rk) 03/25/2050 Hospital Encounter Surgery Citlalli Richardson MD Vocal cord paralysis [facility] OTOLARYNGOLOGY [place], [place] [address] ([place]) documented as of this encounter Visit Diagnoses Not on filedocumented in this encounter Care Teams Director Physical Therapy Relationship Specialty Start Date End Date Vladimir Muñoz, PCP - General Family Medicine 01/19/18 580 [place] [address] documented as of this encounter
--- OUTSIDE RECORDS SUMMARY | 2022-10-07 08:54 | XMS_ITS | Encounter Summary ---
:1955 Author Organization [facility] [place] [address] Care Team Providers Name Role Phone Vladimir Muñoz DO Primary Care Provider Encounter Details Date Type Department Care Team Description [facility]04[facility] [address] [place] [address] [place] [address] [place] [address] (Wo rk) Social History Tobacco [...] mg by mouth twice a day to [place] as patient requested. Telephone Encounter - Kernoy Valdes RN - 07/04/2019 9:14 AM EDT Spoke to patient, he reports that he took his first dose of Isosorbide yesterday morning and by 4 pmhad developed the same headache I used to get when I took this medication before. He has not takenthis mornings dose yet, he was wondering if he should go back on his Ranexa? Telephone Encounter - Courtney Jordan - 07/04/2019 8:22 AM EDT Patient called and started taking Isosorbide 30 mg. He took it isn the past and caused headaches. Itis doing the same. # [phone] documented in this encounter Plan of Treatment Upcoming Encounters Date Type Specialty Care Team Description 03/25/2022 Anesthesia Event Surgery Catrachita Baez MD [facility] ANESTHESIOLOGY [place], [place] [address] (Wo rk) 12/15/2022 Office Visit Cardiology Damián Hart MD [facility] [place], [place] [address] (Wo rk) 03/25/2050 Hospital Encounter Surgery Citlalli Richardson MD Vocal cord paralysis [facility] OTOLARYNGOLOGY [place], [place] [address] (Wo rk) documented as of this encounter Visit Diagnoses Diagnosis ASCVD (arteriosclerotic cardiovascular d isease) Unspecified cardiovascular disease Vocal cord paralysis Paralysis of vocal cords or larynx, unsp ecified documented in this encounter Care Teams Signal Supervisor Relationship Specialty Start Date End Date Vladimir Muñoz DO PCP - General Family Medicine 01/19/18 [address] [place] [address] documented as of this encounter
--- OUTSIDE RECORDS SUMMARY | 2022-10-07 08:54 | XMS_ITS | Encounter Summary ---
:1955 Author Organization [facility] [place] [address] Care Team Providers Name Role Phone Vladimir Muñoz DO Primary Care Provider Encounter Details Date Type Department Care Team Description 02/14/2019 Telephone Cardiology at [facility] Benedicto Oconnor Jr., MD [address] [facility] [address] [place] [address] (Wo rk) Social History Tobacco [...] will be less then generic. I let Leopold know. And Baljinder know documented in this encounter Plan of Treatment Upcoming Encounters Date Type Specialty Care Team Description 03/25/2022 Anesthesia Event Surgery Catrachita Baez MD [facility] ANESTHESIOLOGY [place], [place] [address] (Wo rk) 12/15/2022 Office Visit Cardiology Damián Hart MD [facility] [place], [place] [address] (Wo rk) 03/25/2050 Hospital Encounter Surgery Citlalli Richardson MD Vocal cord paralysis [facility] OTOLARYNGOLOGY [place], [place] [address] (Wo rk) documented as of this encounter Visit Diagnoses Not on filedocumented in this encounter Care Teams Cotton Machine Operator Relationship Specialty Start Date End Date Vladimir Muñoz DO PCP - General Family Medicine 01/19/[address] [place] [address] documented as of this encounter
--- OUTSIDE RECORDS SUMMARY | 2022-10-07 08:54 | XMS_ITS | Encounter Summary ---
:1955 Author Organization [facility] [place] [address] Care Team Providers Name Role Phone Vladimir Muñoz DO Primary Care Provider Reason for Visit Reason Onset Date Comments Medication Refill 03/27/2020 Encounter Details Date Type Department Care Team Description 03/27/2020 Refill Cardiology at [facility] Damián Hart MD Medication Refill [address] [place] [address] [place] [address] [phone] (Wo rk) Social History Tobacco Use Types [...] Baez MD [facility] ANESTHESIOLOGY [place], [place] 0[address] (Wo rk) 12/15/2022 Office Visit Cardiology Damián Hart MD [facility] [address] [place], [place] [address] (Wo rk) 03/25/2050 Hospital Encounter Surgery Citlalli Richardson MD Vocal cord paralysis [facility] OTOLARYNGOLOGY [place], [place] 0[address] (Wo rk) documented as of this encounter Visit Diagnoses Diagnosis Essential hypertension Unspecified essential hypertension Vocal cord paralysis Paralysis of vocal cords or larynx, unsp ecified documented in this encounter Care Teams Bench Assembly Inspector Relationship Specialty Start Date End Date Vladimir Muñoz DO PCP - General Family Medicine 01/19/18 [address] [place] [address] documented as of this encounter
--- OUTSIDE RECORDS SUMMARY | 2022-10-07 08:54 | XMS_ITS | Encounter Summary ---
:1955 Author Organization [facility] [place] [address] Care Team Providers Name Role Phone Vladimir Muñoz DO Primary Care Provider Reason for Visit Reason Onset Date Comments Medication Refill 04/03/2020 Encounter Details Date Type Department Care Team Description 04/03/2020 Refill Cardiology at [facility] Damián Hart MD Medication Refill [address] [place] [address] [place] [address] [phone] (Wo rk) Social History Tobacco Use Types [...] Surgery Catrachita Baez MD [facility] ANESTHESIOLOGY [place], [place] [address] (Wo rk) 12/15/2022 Office Visit Cardiology Damián Hart MD [facility] [address] [place], [place] [address] (Wo rk) 03/25/2050 Hospital Encounter Surgery Citlalli Richardson MD Vocal cord paralysis [facility] ER OTOLARYNGOLOGY [place], [place] [address] (Wo rk) documented as of this encounter Visit Diagnoses Diagnosis Essential hypertension Unspecified essential hypertension Vocal cord paralysis Paralysis of vocal cords or larynx, unsp ecified documented in this encounter Care Teams Medication Nurse Relationship Specialty Start Date End Date Vladimir Muñoz DO PCP - General Family Medicine 01/19/18 [address] [place] [address] documented as of this encounter
--- OUTSIDE RECORDS SUMMARY | 2022-10-07 08:54 | XMS_ITS | Encounter Summary ---
:1955 Author Organization [facility] [place] [address] Care Team Providers Name Role Phone Vladimir Muñoz DO Primary Care Provider Encounter Details Date Type Department Care Team Description 03/26[facility]20[facility] [address] [facility] [place] [address] [place] [address] (Wo rk) Social History Tobacco [...] Notes Telephone Encounter - Sheryl Matthews - 03/26/2021 9:18 AM EDT Refill for: Coreg 25 mg Twice daily Wants to switch to a 90 day supply [facility] [place] Has about one week left. Patient is expecting a call back @ [phone] only if there are questions or problems. documented in this encounter Plan of Treatment Upcoming Encounters Date Type Specialty Care Team Description 03/25/2022 Anesthesia Event Surgery Catrachita Baez MD [facility] ANESTHESIOLOGY [place], [place] [address] (Wo rk) 12/15/2022 Office Visit Cardiology Damián Hart MD [facility] [place], [place] 0[address] (Wo rk) 03/25/2050 Hospital Encounter Surgery Citlalli Richardson MD Vocal cord paralysis [facility] OTOLARYNGOLOGY [place], [place] 0[address] (Wo rk) documented as of this encounter Visit Diagnoses Diagnosis Essential hypertension Unspecified essential hypertension Vocal cord paralysis Paralysis of vocal cords or larynx, unsp ecified documented in this encounter Care Teams Acute Coordinator Relationship Specialty Start Date End Date Vladimir Muñoz DO PCP - General Family Medicine 01/19/18 [address] [place] [address] documented as of this encounter
--- OUTSIDE RECORDS SUMMARY | 2022-10-07 08:54 | XMS_ITS | Encounter Summary ---
:1955 Author Organization [facility] [place] [address] Care Team Providers Name Role Phone Librado Alvarado MD Primary Care Provider Reason for Visit Reason Comments Follow-up felt great at first and has had a few episodes of the chest discomfort when he tries to do anything quickly Encounter Details Date Type Department Care Team Description 01/05/2018 Office Visit Cardiology at Benedict[facility] Oconnor (mitchel Gallardo Jr., MD cardiovascular disease) [address] [place] [address] [phone] Social History Tobacco Use Types Packs/Day Years [...] Catrachita Baez MD [facility] ANESTHESIOLOGY [place], [place] 0[address] ( rk) 12/15/2022 Office Visit Cardiology Damián Hart MD [facility] [address] [place] [address] (Wo rk) 03/25/2050 Hospital Encounter Surgery Citlalli Richardson MD Vocal cord paralysis [facility] OTOLARYNGOLOGY [place], [place] [address] (Wo rk) documented as of this encounter Visit Diagnoses Diagnosis ASCVD (arteriosclerotic cardiovascular d isease) Unspecified cardiovascular disease Vocal cord paralysis Paralysis of vocal cords or larynx, unsp ecified documented in this encounter Care Teams Pointing Machine Operator Relationship Specialty Start Date End Date Librado Alvarado MD PCP - General 10/08/10 01/18/18 [address] [facility] [address] [place] [address] documented as of this encounter
--- OUTSIDE RECORDS SUMMARY | 2022-10-07 08:54 | XMS_ITS | Encounter Summary ---
:1955 Author Organization [facility] [place] [address] Care Team Providers Name Role Phone Vladimir Muñoz DO Primary Care Provider Reason for Visit Reason Comments Coronary Artery Disease Shortness of Breath Encounter Details Date Type Department Care Team Description 01/01/2022 Office Visit Cardiology at Damián Hart ASCVD (ar teriosclerotic cardiovascular disease); [place] CORADO Hyperpiesia [address] [place], [place], [place] [phone] Social History Tobacco Use Types [...] Baez MD [facility] ANESTHESIOLOGY [place], [place] [address] (Wo rk) 12/15/2022 Office Visit Cardiology Damián Hart MD [facility] [address] [place] [address] (Wo rk) 03/25/2050 Hospital Encounter Surgery Citlalli Richardson MD Vocal cord paralysis [facility] OTOLARYNGOLOGY [place], [place] [address] (Wo rk) documented as of this encounter Visit Diagnoses Diagnosis ASCVD (arteriosclerotic cardiovascular d isease) Unspecified cardiovascular disease Hyperpiesia Unspecified essential hypertension Vocal cord paralysis Paralysis of vocal cords or larynx, unsp ecified documented in this encounter Care Teams Concrete Block Plant Supervisor Relationship Specialty Start Date End Date Vladimir Muñoz DO PCP - General Family Medicine 01/19/18 [address] [place] [address] documented as of this encounter
--- OUTSIDE RECORDS SUMMARY | 2022-10-07 08:54 | XMS_ITS | Encounter Summary ---
:1955 Author Organization [facility] [place] [address] Care Team Providers Name Role Phone Vladimir Muñoz DO Primary Care Provider Encounter Details Date Type Department Care Team Description 04/18/2021 [facility]; [facility] ASCVD (arteriosclerotic card iovascular disease); [address] [place] [address] [place], [place] [phone] [address] (Work) [phone] Social History Tobacco Use Types Packs/Day Years [...] medications for this visit. Subjective: Patient ID: Burtonjoyce Mcnair Jr. is a 66 y.o. male. [...] performed. This showed sinus rhythm at 75, SC interval 0.20, early R wave progression. Compared [...] 03/25/2022 Anesthesia Event Surgery Catrachita Baez MD [facility] MEDICAL [facility] [place]ESTHESIOLOGY [place], [place] [address] ( jaya) 12/15/2022 Office Visit Cardiology Damián Hart MD [facility] Medical [facility] [address] [place], [place] [address] ([place]) 03/25/2050 Hospital Encounter Surgery Citlalli Richardson MD Vocal cord paralysis [facility] ER OTOLARYNGOLOGY [place], [place] [address] (Wo rk) documented as of [...] ecified documented in this encounter Care Teams It Technical Specialist Relationship Specialty Start Date End Date Vladimir Muñoz DO PCP - General Family Medicine 01/19/18 [address] [place] [address] documented as of this encounter
--- OUTSIDE RECORDS SUMMARY | 2022-10-07 08:54 | XMS_ITS | Encounter Summary ---
:1955 Author Organization [facility] [place] [address] Care Team Providers Name Role Phone Librado Alvarado MD Primary Care Provider Encounter Details Date Type Department Care Team Description 12/21/[address] [facility] Benedicto Oconnor Jr., MD [address] A [address] [place] [address] [place], [place] [address] (Wo rk) Social History Tobacco Use Types [...] Jordan - 12/21/2017 10:33 AM EST appt amanda 12/22/17 11:00 Pt informed Telephone Encounter - [...] Catrachita Baez MD [facility] ANESTHESIOLOGY [place], [place] [address] (Wo rk) 12/15/2022 Office Visit Cardiology Damián Hart MD [facility] [address] [place] [address] (Wo rk) 03/25/2050 Hospital Encounter Surgery Citlalli Richardson MD Vocal cord paralysis [facility] ER OTOLARYNGOLOGY [place], [place] [address] (Wo rk) documented as of this encounter Visit Diagnoses Not on filedocumented in this encounter Care Teams Supervisor Furnace Room Relationship Specialty Start Date End Date Librado Alvarado MD PCP - General 10/08/10 01/18/18 580 [facility] [address] [place] [address] documented as of this encounter
--- OUTSIDE RECORDS SUMMARY | 2022-10-07 08:54 | XMS_ITS | Encounter Summary ---
:1955 Author Organization [facility] [place] [address] Care Team Providers Name Role Phone Vladimir Muñoz DO Primary Care Provider Reason for Visit Reason Comments Hypertension Coronary Artery Disease Encounter Details Date Type Department Care Team Description 11/28/2019 Office Visit Cardiology at Damián Hart ASCVD (ar teriosclerotic cardiovascular disease); Sami CORADO Essential hypertension [address] [place], [place], [place] [phone] Social History Tobacco Use Types Packs/Day Years [...] MD [facility] ANESTHESIOLOGY [place], [place] [address] (Wo rk) 12/15/2022 Office Visit Cardiology Damián Hart MD [facility] [place], [place] [address] (Wo rk) 03/25/2050 Hospital Encounter Surgery Citlalli Richardson MD Vocal cord paralysis [facility] OTOLARYNGOLOGY [place], [place] [address] (Wo rk) documented as of [...] 445 ms MUSE SYSTEM (Bezet) Calculated P [place] 43 degrees MUSE SYSTEM Calculated R [place] -15 degrees MUSE SYSTEM Calculated T [place] 3 degrees MUSE SYSTEM INTERPRETATION Normal sinus rhythm MUSE SYSTEM Moderate voltage criteria for LVH, may be normal variant Borderline ECG When compared with ECG of 11-MAR-2017 07:19, No significant change was found Confirmed by MD Hailey, Damián ([id number]) on 12/02/2019 4:40:45 PM Specimen Anatomical Collection [...] ecified documented in this encounter Care Teams Managed Services Sales Consultant Relationship Specialty Start Date End Date Vladimir Muñoz DO PCP - General Family Medicine 01/19/18 [address] [place] [address] documented as of this encounter
--- OUTSIDE RECORDS SUMMARY | 2022-10-07 08:54 | XMS_ITS | Encounter Summary ---
:1955 Author Organization [facility] [place] [address] Care Team Providers Name Role Phone Vladimir Muñoz DO Primary Care Provider Reason for Visit Reason Comments Medication Refill Encounter Details Date Type Department Care Team Description 11/29/2018 Refill Cardiology at [facility] Benedicto Oconnor Jr., MD Medication Refill [address] [facility] [address] [place] [address] A [phone] [place], [place] [address] (Wo rk) Social History [...] Baez MD [facility] ANESTHESIOLOGY [place], [place] [address] (Wo rk) 12/15/2022 Office Visit Cardiology Damián Hart MD [facility] Dr [place], [place] [address] (Wo rk) 03/25/2050 Hospital Encounter Surgery Citlalli Richardson MD Vocal cord paralysis [facility] ER OTOLARYNGOLOGY [place], [place] [address] (Wo rk) documented as of this encounter Visit Diagnoses Diagnosis ASCVD (arteriosclerotic cardiovascular d isease) Unspecified cardiovascular disease Vocal cord paralysis Paralysis of vocal cords or larynx, unsp ecified documented in this encounter Care Teams Avionics Electronics Technician Relationship Specialty Start Date End Date Vladimir uMñoz DO PCP - General Family Medicine 01/19/18 580 [place] [address] documented as of this encounter
--- OUTSIDE RECORDS SUMMARY | 2022-10-07 08:54 | XMS_ITS | Encounter Summary ---
:1955 Author Organization [facility] [place] [address] Care Team Providers Name Role Phone Librado Alvarado MD Primary Care Provider Encounter Details Date Type Department Care Team Description 11/23/2017 Ext Surgery or [facility] Benedicto Oconnor Chest pain, unspecified type; Single Event [facility] MD Latonya ASCVD (arteriosclerotic cardiovascular d isease) [address] [address] [place] [address] [phone] Social History Tobacco Use Types Packs/Day Years [...] Baez MD [facility] ANESTHESIOLOGY [place], [place] [address] (Wo rk) 12/15/2022 Office Visit Cardiology Damián Hart MD [facility] [address] [place] [address] (Wo rk) 03/25/2050 Hospital Encounter Surgery Citlalli Richardson MD Vocal cord paralysis [facility] [place], [place] [address] (Wo rk) documented as of [...] Report ?? Burton Mcnair Jr. : 1955 [facility], [address] [place] [address] Primary Physician: ??Librado Alvarado MD ? ?Indication: [...] Spect-same Electronically signed: Benedicto Oconnor Jr, MD [facility] ??Date: 11/23/2017 Benedicto Oconnor Jr., MD IMG NM ORDERABLES documented in this encounter Visit Diagnoses Diagnosis Chest pain, unspecified type ASCVD (arteriosclerotic cardiovascular d isease) Unspecified cardiovascular disease Vocal cord paralysis Paralysis of vocal cords or larynx, unsp ecified documented in this encounter Care Teams Tester Electronic Scale Relationship Specialty Start Date End Date Librado Alvarado MD PCP - General 10/08/10 01/18/18 580 [facility] 11 [place] [id number] documented as of this encounter
--- OUTSIDE RECORDS SUMMARY | 2022-10-07 08:54 | XMS_ITS | Encounter Summary ---
:1955 Author Organization [facility] [place] [address] Care Team Providers Name Role Phone Vladimir Muñoz DO Primary Care Provider Encounter Details Date Type Department Care Team Description 04/17/2021 Telephone Cardiology at [facility] Damián Hart MD [address] [facility] [place] [address] [place] [address] (Wo rk) Social History Tobacco [...] patients letting her know. Called Charmaine at [facility] and let her know patient is being seen tomorrow. Telephone Encounter - Kenroy Valdes RN - 04/17/2021 2:54 PM EDT Left message with Charmaine at [facility] that we never received request for Cardiac clearance for this patient. PCP had requested guidance for his plavix, which patient is no longer on. Telephone Encounter - Sheryl Matthews - 04/17/2021 2:27 PM EDT Charmaine at [facility] called because patient is scheduled for back surgery on 04-23. They need cardiac clearance to proceed. She said that they had heard from the pcp but need cardiac clearance. Please call her back @ [phone] Telephone Encounter - Sheryl Matthews - 04/17/2021 2:27 PM EDT Charmaine at [facility] called to say she does know he is not on Plavix. She needs clearance from Dr Hart. Either a note stating that, an addendum to his last office note or he needs to be seen. Please call her back at [phone]. documented in this encounter Plan of Treatment Upcoming Encounters Date Type Specialty Care Team Description 03/25/2022 Anesthesia Event Surgery Catrachita Baez MD [facility] ANESTHESIOLOGY [place] [address] (Wo rk) 12/15/2022 Office Visit Cardiology Damián Hart MD [facility] [address] [place] [address] (Wo rk) 03/25/2050 Hospital Encounter Surgery Citlalli Richardson MD Vocal cord paralysis [facility] ER OTOLARYNGOLOGY [place], [place] [address] (Wo rk) documented as of this encounter Visit Diagnoses Not on filedocumented in this encounter Care Teams International Flight Attendant Relationship Specialty Start Date End Date Vladimir Muñoz DO PCP - General Family Medicine 01/19/[address] [place] [address] documented as of this encounter
--- OUTSIDE RECORDS SUMMARY | 2022-10-07 08:54 | XMS_ITS | Encounter Summary ---
:1955 Author Organization [facility] [place] [address] Care Team Providers Name Role Phone Vladimir Muñoz DO Primary Care Provider Encounter Details Date Type Department Care Team Description 04/19/2018 External Results Cardiology at [facility] Shania Montenegro RN 580 [place] [address] Social History Tobacco Use [...] Baez MD [facility] ANESTHESIOLOGY [place], [place] [address] (Wo rk) 12/15/2022 Office Visit Cardiology Damián Hart MD [facility] [address] [place] [address] (Wo rk) 03/25/2050 Hospital Encounter Surgery Citlalli Richardson MD Vocal cord paralysis [facility] OTOLARYNGOLOGY [place], [place] [address] (Wo rk) documented as of this encounter Procedures Procedure Name Priority Date/Time Associated Diagnosis Comme nts EXTERNAL LIPID LAB Routine 01/22/2018 Results f or this RESULTS PANEL procedure are in the results section . documented in this encounter Results Lipid External Results (01/22/2018) P athologist Signature Chol, Total 110 HDL 45 LDL Cholesterol 33 Triglycerides 161 Historical Provider MD POINT OF CARE TEST ORDERABLE S documented in this encounter Visit Diagnoses Not on filedocumented in this encounter Care Teams Repeat Chief Relationship Specialty Start Date End Date Vladimir Muñoz DO PCP - General Family Medicine 01/19/18 580 [place] [address] documented as of this encounter
--- OUTSIDE RECORDS SUMMARY | 2022-10-07 08:54 | XMS_ITS | Encounter Summary ---
:1955 Author Organization [facility] [place] [address] Care Team Providers Name Role Phone Vladimir Muñoz DO Primary Care Provider Encounter Details Date Type Department Care Team Description 01/13/2022 Hospital Encounter Physics Technical Officer at [facility], MD (arteriosclerotic [facility] cardiovascular [facility] DR disease) [facility] CARDIOLOGY [place], [place] DEPT. [address] [place], [place] [phone] Social History Tobacco Use Types Packs/Day Years [...] by your doctor, do not take any [id number]-exkbrse medicines or herbal preparations without first discussing this with your doctor or pharmacist. There is the possibility of side effects and interactions when these are combined. Follow Up Care Who to call with questions or problems If there are any questions or problems that you think might be related to your cardiac cath or angioplasty, contact the molder punch sports cartoonist by calling [facility] at . documented in this encounter Medications [...] as of this encounter H&P Notes Polo Bcekham MD - 01/13/2022 9:03 AM EST Images from the original note were not included. Complete Adult Pre-Procedural H&P Patient Name: Burton Mcnair Jr. : [id number] y.o. MR#: [id number] Chief Complaint: angina Planned Procedure: coronary angiogrphy [...] findings. Sedation Plan: moderate (conscious sedation) Polo Bekcham MD 01/13/2022 documented in this encounter Miscellaneous Notes Brief Op Note - Polo Beckham MD - 01/13/2022 10:38 AM EST Preliminary Cardiac Catheterization Procedure Note: Patient Name: Burton Mcnair Jr. : [id number] MR#: [id number] Case Date: 01/13/2022 Early Childhood Educator Aide: Surgeon(s) and Role: * Polo Beckham MD - Primary * Yuko Lilly PA - Physician Electrical Electronics Engineer Preoperative diagnosis: ASCVD (arteriosclerotic cardiovascular disease) [I25.10] Postoperative diagnosis: * ASCVD * Procedure(s) performed: [facility] Coronary angiography Left ventriculography Access: right [...] Baez MD [facility] ANESTHESIOLOGY [place], [place] [address] (Wo rk) 12/15/2022 Office Visit Cardiology Damián Hart MD [facility] [place], [place] 0[address] (Wo rk) 03/25/2050 Hospital Encounter Surgery Citlalli Richardson MD Vocal cord paralysis [facility] OTOLARYNGOLOGY [place], [place] [address] (Wo rk) documented [...] Signature POC Glucose 121 65 - 199 [facility] mg/dL [facility] Comment: Supplemental ranges: <140 mg/dL before meals <180 mg/dL all other times of the day Specimen Anatomical Collection Method Collection Time Receive d Time (Source) Location / / Volume Laterality Blood 01/13/2022 11:30 01/13/2022 AM EST 11:30 AM EST Polo Beckham MD POINT OF CARE TEST ORDERABLE S Performing Organization Address City/State/[place] [address] (ABNORMAL) Point of Care Blood Gas Historical (01/13/2022 10:37 AM EST) Patholo gist Method Time Signature POC pH 7.41 7.35 - [facility] 7.45 [facility] POC PCO2 38 35 - 45 [facility] mmHg [facility] POC PO2 78 (L) 85 - 104 [facility] mmHg [facility] POC Base Excess -1.0 -3.0 - 3.0 [facility] K mmol/L [facility] POC HCO3 23.9 20.0 - [facility] 26.0 [facility] mmol/[facility] POC Sodium 139 135 - 145 [facility] mmol/L [facility] POC Potassium 3.9 3.5 - 5.0 [facility] mmol/L [facility] POC Ionized Ca 1.18 1.15 - [facility] 1.33 [facility] mmol/[facility] POC Hematocrit 30.0 (L) 40.0 - [facility] 51.0 % [facility] POC Calc Hgb 10.2 (L) 13.7 - [facility] 17.5 g/dL [facility] Comment: The calculation of hemoglobin f rom hematocrit assumes a normal MCHC. POC Bgas Loc CC LAB [facility] Specimen Anatomical Collection Method Collection Time Receive d Time (Source) Location / / Volume Laterality Blood 01/13/2022 10:37 01/16/2022 9:00 AM EST AM EST Polo Beckham MD CHEMISTRY ORDERABLES Performing Organization Address City/State/[place] [address] CARDIAC CATHETERIZATION (01/13/2022 10:31 AM EST) Anatomical Region Laterality Modality Other Specimen (Source) Anatomical Location Collection Method / Collectio n Time Received Time / Laterality Volume Narrative 01/14/2022 1:44 PM EST ?[facility] ? Cardiac Cathete rization/Intervention Report ? Patient Name: Xu Jr, Burton D. ? Procedure Date: 01/13/2022 ? A #: [id number] ? Primary Physician: Rubén, Polo T ? Case #: [id number] ? File Name: [id number] ? Catheterization Order Number: [id number] ? [facility] ? Final Report [place], [place] ? Patient Name: ? Burton D. [place] Jr ? ID#: ?[id number] ? : ?1955 ? Procedure Date: ? [...] designated as ASA C lass III. The [facility] clinical frailty scale ?is 3: Managing Well. ? Diagnostic Tests: ?Medications Prior to Procedure: ? Aspirin, Beta Yecenia, C alcium Channel Blocking Agent, Long Acting ? Nitrate and Statin. ? Indications for Diagnostic Cath: ?The priority of the diagnostic procedure was Elective. The indication for ?the label machine operator visit is worsening angina. Chest pain symptom [...] Signature POC Glucose 139 65 - 199 [facility] mg/dL [facility] Comment: Supplemental ranges: <140 mg/dL before meals <180 mg/dL all other times of the day Specimen Anatomical Collection Method Collection Time Receive d Time (Source) Location / / Volume Laterality Blood 01/13/2022 9:25 AM 9:25 EST AM EST Polo Beckham MD POINT OF CARE TEST ORDERABLE S Performing Organization Address City/State/[place] [address] Differential, Automated (01/13/2022 9:11 AM EST) athologist Signature Neutrophils % 67.2 % [facility] Neutr Abs (ANC) 3.69 1.70 - [facility] 6.10 [facility] x10(3)/[facility] LABORATORY Lymphocytes % 19.5 % [facility] Lymphocytes Abs 1.1 0.9 - 3.2 [facility] x10(3)/[facility] LABORATORY Monocytes % 9.1 % [facility] Monocyte Abs 0.5 0.3 - 0.9 [facility] x10(3)/[facility] LABORATORY Eosinophils % 2.9 % [facility] Eosinophils Abs 0.2 0.0 - 0.4 [facility] x10(3)/[facility] LABORATORY Basophils % 1.1 % [facility] Basophils Abs 0.1 0.0 - 0.1 [facility] x10(3)/[facility] LABORATORY Immature Gran % 0.20 % NORTH [...] Nikole Gran Abs 0.01 0.00 - 0.04 x10(3)/[facility] MAR Y [facility] LABORATORY Specimen Anatomical Collection Method Collection Time Receive d Time (Source) Location / / Volume Laterality Blood Venous Draw / 01/13/2022 9:11 AM 01/13/20 9:36 Unknown EST AM EST Resulting Agency Comment Spec In Lab Damián Hart MD HEMATOLOGY ORDERABLES Performing Organization Address City/State/[place] [address] Basic Metabolic Panel (non-fasting) (01/13/2022 9:11 AM EST) athologist Signature Glucose Lvl 141 65 - 199 [facility] mg/dL [facility] Comment: Diabetes: >=200 mg/dL plus symp toms BUN 12 10 - 20 mg/dL [facility] Creatinine 1.04 0.80 - 1.50 mg/dL [facility] Sodium 140 135 - 145 mmol/L [facility] Potassium 4.0 3.5 - 5.0 mmol/L [facility] Comment: Please note: ??Patients with [...] mmol/L [facility] Anion Gap 13 5 - 15 mmol/L [facility] Calcium 9.2 8.5 - 10.5 mg/dL [facility] Estimated GFR 74 >=60 mL/min/1.73 m?? [facility] [...] Organization Address City/State/[place] [address] (ABNORMAL) Hemogram (01/13/2022 9:11 AM EST) Analysis Performed At Patho logist Time Signature WBC 5.5 4.0 - 9.5 [facility] x10(3)/[facility] LABORATORY RBC 3.90 (L) 4.58 - [facility] 5.54 [facility] x10(6)/[facility] LABORATORY Hemoglobin 12.3 (L) 13.7 - [facility] 16.5 g/dL [facility] Hematocrit 33.9 (L) 40.5 - [facility] 48.5 % [facility] MCV 86.9 82.9 - [facility] 93.1 [facility] LABORATORY MCH 31.5 27.5 - [facility] 32.1 pg [facility] MCHC 36.3 (H) 32.0 - [facility] 35.7 g/dL [facility] Platelets 183 145 - 357 [facility] x10(3)/[facility] LABORATORY RDWSD 40.5 36.0 - [facility] 45.0 [facility] LABORATORY RDWCV 12.8 11.4 - [facility] 13.8 % [facility] MPV 9.2 7.6 - 12.9 [facility] LABORATORY nRBC % Auto 0.0 % [facility] nRBC Abs Auto 0.000 0.000 - [facility] 0.000 [facility] x10(3)/[facility] LABORATORY Specimen Anatomical Collection Method Collection Time Receive d Time (Source) Location / / Volume Laterality Blood Venous Draw / 01/13/2022 9:11 AM 01/13/20 22 9:36 Unknown EST AM EST Resulting Agency Comment Spec In Lab Damián Hart MD HEMATOLOGY ORDERABLES Performing Organization Address City/State/[place] [address] documented in this encounter [...] infusion 10 50 (Continued Bag - Provider: Madeilne Faria RN) 100 mL/hr, Intravenous, CONTINUOUS, Star [...] (Intra-Procedure) documented in this encounter Care Teams Inspector Insulation Relationship Specialty Start Date End Date Vladimir Muñoz DO PCP - General Family Medicine 01/19/18 [address] [place] [address] documented as of this encounter
--- OUTSIDE RECORDS SUMMARY | 2022-10-07 08:54 | XMS_ITS | Encounter Summary ---
:1955 Author Organization [place] [address] Care Team Providers Name Role Phone Vladimir Muñoz DO Primary Care Provider Encounter Details Date Type Department Care Team Description 02/02/[address] [facility] Benedicto Oconnor Jr., MD [address] [facility] [place] [address] [place] [address] (Wo rk) Social History Tobacco [...] PM EDT His last stent was in 2016- just had balloon angioplasty in 2017 He can hold Plavix for 1 week [...] Surgery Catrachita Baez MD [facility] ANESTHESIOLOGY [place], [place] [address] (Wo rk) 12/15/2022 Office Visit Cardiology Damián Hart MD [facility] [place], [place] [address] (Wo rk) 03/25/2050 Hospital Encounter Surgery Citlalli Richardson MD Vocal cord paralysis [facility] OTOLARYNGOLOGY [place], [place] [address] (Wo rk) documented as of this encounter Visit Diagnoses Diagnosis ASCVD (arteriosclerotic cardiovascular d isease) Unspecified cardiovascular disease Vocal cord paralysis Paralysis of vocal cords or larynx, unsp ecified documented in this encounter Care Teams Cloth Calender Relationship Specialty Start Date End Date Vladimir Muñoz DO PCP - General Family Medicine 01/19/18 [address] [place] [address] documented as of this encounter
--- OUTSIDE RECORDS SUMMARY | 2022-10-07 08:54 | XMS_ITS | Encounter Summary ---
:1955 Author Organization [facility] [address] Care Team Providers Name Role Phone Vladimir Muñoz DO Primary Care Provider Reason for Visit Reason Onset Date Comments Medication Refill 05/28/2020 Encounter Details Date Type Department Care Team Description 05/21/2020 Refill Cardiology at [facility] Damián Hart MD Medication Refill [address] [place] [address] [place] [address] [phone] (Wo rk) Social History Tobacco Use Types [...] He also had his BP checked at [facility] on Thursday and it was 140/81 [...] [facility] ANESTHESIOLOGY [place], [place] [address] (Wo rk) 12/15/2022 Office Visit Cardiology Damián Hart MD [facility] [place], [place] [address] (Wo rk) 03/25/2050 Hospital Encounter Surgery Citlalli Richardson MD Vocal cord paralysis [facility] OTOLARYNGOLOGY [place], [place] [address] (Wo rk) documented as of this encounter Visit Diagnoses Diagnosis Essential hypertension Unspecified essential hypertension Vocal cord paralysis Paralysis of vocal cords or larynx, unsp ecified documented in this encounter Care Teams Dipper And Drier Relationship Specialty Start Date End Date Vladimir Muñoz DO PCP - General Family Medicine 01/19/18 [address] [place] [address] documented as of this encounter
--- OUTSIDE RECORDS SUMMARY | 2022-10-07 08:54 | XMS_ITS | Encounter Summary ---
:1955 Author Organization [facility] [place] [address] Care Team Providers Name Role Phone Vladimir Muñoz DO Primary Care Provider Reason for Visit Reason Comments Follow-up 6 months Coronary Artery Disease Encounter Details Date Type Department Care Team Description 01/24/2019 Office Visit Cardiology at Benedicto Oconnor ASCVD (arter iosclerotic cardiovascular disease); Sami Hanks MD Essential hypertension [address] [address] [place] [address] [phone] Social History Tobacco Use Types Packs/Day Years [...] Baez MD [facility] ANESTHESIOLOGY [place], [place] 0[address] (Wo jaya) 12/15/2022 Office Visit Cardiology Damián Hart MD [facility] [address] [place] [address] (Wo rk) 03/25/2050 Hospital Encounter Surgery Citlalli Richardson MD Vocal cord paralysis [facility] OTOLARYNGOLOGY [place], [place] [address] (Wo rk) documented as of this encounter Visit Diagnoses Diagnosis ASCVD (arteriosclerotic cardiovascular d isease) Unspecified cardiovascular disease Essential hypertension Unspecified essential hypertension Vocal cord paralysis Paralysis of vocal cords or larynx, unsp ecified documented in this encounter Care Teams Process Automation Engineer Relationship Specialty Start Date End Date Vladimir Muñoz DO PCP - General Family Medicine 01/19/18 [address] [place] [address] documented as of this encounter
--- OUTSIDE RECORDS SUMMARY | 2022-10-07 08:54 | XMS_ITS | Encounter Summary ---
:1955 Author Organization [facility] [place] [address] Care Team Providers Name Role Phone Vladimir Muñoz DO Primary Care Provider Encounter Details Date Type Department Care Team Description 02/25/2019 Telephone Cardiology at [facility] Benedicto Oconnor Jr., MD [address] [facility] [place] [address] [place], [place] [address] (Wo rk) Social History Tobacco Use Types [...] [facility] ANESTHES[facility]OLOGY [place], [place] [address] (Wo rk) 12/15/2022 Office Visit Cardiology Damián Hart MD [facility] [address] [place], [place] [address] (Wo rk) 03/25/2050 Hospital Encounter Surgery Citlalli Richardson MD Vocal cord paralysis [facility] OTOLARYNGOLOGY [place], [place] [address] (Wo rk) documented as of this encounter Visit Diagnoses Not on filedocumented in this encounter Care Teams Physician Extender Relationship Specialty Start Date End Date Vladimir Muñoz, PCP - General Family Medicine 01/19/18 [address] [place] [address] documented as of this encounter
--- OUTSIDE RECORDS SUMMARY | 2022-10-07 08:54 | XMS_ITS | Encounter Summary ---
:1955 Author Organization [facility] [place] [address] Care Team Providers Name Role Phone Vladimir Muñoz DO Primary Care Provider Reason for Visit Reason Comments Medication Refill Encounter Details Date Type Department Care Team Description 05/11/2021 Refill Cardiology at [facility] Damián Hart MD Medication Refill [address] [place] [address] [place] [address] [phone] (Wo rk) Social History Tobacco Use Types [...] [facility] ANESTHESIOLOGY [place], [place] [address] (Wo rk) 12/15/2022 Office Visit Cardiology Damián Hart MD [facility] [address] [place], [place] [address] (Wo rk) 03/25/2050 Hospital Encounter Surgery Citlalli Richardson MD Vocal cord paralysis [facility] ER OTOLARYNGOLOGY [place], [place] [address] (Wo rk) documented as of this encounter Visit Diagnoses Diagnosis Essential hypertension Unspecified essential hypertension Vocal cord paralysis Paralysis of vocal cords or larynx, unsp ecified documented in this encounter Care Teams Traffic Signal Mechanic Relationship Specialty Start Date End Date Vladimir Muñoz DO PCP - General Family Medicine 01/19/18 [address] [place] [address] documented as of this encounter
--- OUTSIDE RECORDS SUMMARY | 2022-10-07 08:54 | XMS_ITS | Encounter Summary ---
:1955 Author Organization [facility] [place] [address] Care Team Providers Name Role Phone Vladimir Muñoz DO Primary Care Provider Reason for Visit Reason Onset Date Comments Medication Refill 02/13/2020 Encounter Details Date Type Department Care Team Description 02/13/2020 Refill Cardiology at [facility] Damián Hart MD Medication Refill [address] [place] [address] [place] [address] [phone] (Wo rk) Social History Tobacco Use Types [...] Catrachita Baez MD [facility] ANESTHESIOLOGY [place], [place] 0[address] (Wo rk) 12/15/2022 Office Visit Cardiology Damián Hart MD [facility] [address] [place], [place] [address] (Wo rk) 03/25/2050 Hospital Encounter Surgery Citlalli Richardson MD Vocal cord paralysis [facility] ER OTOLARYNGOLOGY [place], [place] [address] (Wo rk) documented as of this encounter Visit Diagnoses Diagnosis ASCVD (arteriosclerotic cardiovascular d isease) Unspecified cardiovascular disease Vocal cord paralysis Paralysis of vocal cords or larynx, unsp ecified documented in this encounter Care Teams Stamping Die Maker Bench Relationship Specialty Start Date End Date Vladimir Muñoz DO PCP - General Family Medicine 01/19/18 [address] [place] [address] documented as of this encounter
--- OUTSIDE RECORDS SUMMARY | 2022-10-07 08:54 | XMS_ITS | Encounter Summary ---
:1955 Author Organization [facility] [place] [address] Care Team Providers Name Role Phone Vladimir Muñoz DO Primary Care Provider Reason for Visit Reason Onset Date Comments Medication Refill 01/24/2019 Encounter Details Date Type Department Care Team Description 01/24/2019 Refill Cardiology at [facility] Norma Oconnor, recreation center director Refill [address] [place] [address] Social History Tobacco Use [...] 03/25/2022 Anesthesia Event Surgery Catrachita Baez MD [facility] ER [place], [place] [address] (Wo rk) 12/15/2022 Office Visit Cardiology Damián Hart MD [facility] [place] [address] [place], [place] [address] (Wo rk) 03/25/2050 Hospital Encounter Surgery Citlalli Richardson MD Vocal cord paralysis [facility] [place] [place] [address] (Wo rk) documented as of this encounter Visit Diagnoses Diagnosis Essential hypertension Unspecified essential hypertension ASCVD (arteriosclerotic cardiovascular d isease) Unspecified cardiovascular disease Vocal cord paralysis Paralysis of vocal cords or larynx, unsp ecified documented in this encounter Care Teams Bellows Charger Assembler Relationship Specialty Start Date End Date Vladimir Muñoz DO PCP - General Family Medicine 01/19/18 [address] [place] [address] documented as of this encounter
--- OUTSIDE RECORDS SUMMARY | 2022-10-07 08:54 | XMS_ITS | Encounter Summary ---
:1955 Author Organization [facility] [place] [address] Care Team Providers Name Role Phone Vladimir Muñoz DO Primary Care Provider Encounter Details Date Type Department Care Team Description [facility] [address] [place] [address] [place] [address] [place] [address] (Wo rk) Social History Tobacco [...] Telephone Encounter - Keke Murcia, RN - 01/06/2022 2:41 PM EST When will cardiac cath be done? Baljinder is scheduled for tomorrow at 10 am with cardiology brick and blocker aid labor at [facility]. Baljinder has not been contacted to be confirmed or instructed. Baljinder has a day of planned activities tomorrow. Plan: I will call the card cath team and ask them to give Baljinder a call back with the plan. Baljinder's best phone number [phone] documented in this encounter Plan of Treatment Upcoming Encounters Date Type Specialty Care Team Description 03/25/2022 Anesthesia Event Surgery Catrachita Baez MD [facility] ANESTHESIOLOGY [place], [place] [address] (Wo rk) 12/15/2022 Office Visit Cardiology Damián Hart MD [facility] [place], [place] 0[address] (Wo rk) 03/25/2050 Hospital Encounter Surgery Citlalli Richardson MD Vocal cord paralysis [facility] OTOLARYNGOLOGY [place], [place] [address] (Wo rk) documented as of this encounter Visit Diagnoses Not on filedocumented in this encounter Care Teams Chief Engineer Drilling And Recovery Relationship Specialty Start Date End Date Vladimir Muñoz DO PCP - General Family Medicine 01/19/18 [address] [place] [address] documented as of this encounter
--- OUTSIDE RECORDS SUMMARY | 2022-10-07 08:54 | XMS_ITS | Encounter Summary ---
:1955 Author Organization [facility] [place] [address] Care Team Providers Name Role Phone Vladimir Muñoz DO Primary Care Provider Reason for Visit Reason Comments Medication Refill Encounter Details Date Type Department Care Team Description 04/13/2021 Refill Cardiology at [facility] Damián Hart MD Medication Refill [address] [place] [address] [place] [address] [phone] (Wo rk) Social History Tobacco Use Types [...] Catrachita Baez MD [facility] ANESTHESIOLOGY [place], [place] 0[address] (Wo rk) 12/15/2022 Office Visit Cardiology Damián Hart MD [facility] [address] [place], [place] [address] (Wo rk) 03/25/2050 Hospital Encounter Surgery Citlalli Richardson MD Vocal cord paralysis [facility] ER OTOLARYNGOLOGY [place], [place] [address] (Wo rk) documented as of this encounter Visit Diagnoses Diagnosis ASCVD (arteriosclerotic cardiovascular d isease) Unspecified cardiovascular disease Vocal cord paralysis Paralysis of vocal cords or larynx, unsp ecified documented in this encounter Care Teams Center Machine Operator Relationship Specialty Start Date End Date Vladimir Muñoz DO PCP - General Family Medicine 01/19/18 [address] [place] [address] documented as of this encounter
--- OUTSIDE RECORDS SUMMARY | 2022-10-07 08:54 | XMS_ITS | Encounter Summary ---
:1955 Author Organization [facility] [place] [address] Care Team Providers Name Role Phone Vladimir Muñoz DO Primary Care Provider Reason for Visit Reason Comments Medication Refill Encounter Details Date Type Department Care Team Description 04/12/[address] [facility] Damián Hart MD Medication Refill [address] [place] [address] [place] [address] [phone] (Wo rk) Social History Tobacco Use Types [...] Baez MD [facility] ANESTHESIOLOGY [place], [place] 0375 (Wo rk) 12/15/2022 Office Visit Cardiology Damián Hart MD [facility] [address] [place], [place] [address] (Wo rk) 03/25/2050 Hospital Encounter Surgery Citlalli Richardson MD Vocal cord paralysis [facility] OTOLARYNGOLOGY [place], [place] 0375 (Wo rk) documented as of this encounter Visit Diagnoses Diagnosis Essential hypertension Unspecified essential hypertension ASCVD (arteriosclerotic cardiovascular d isease) Unspecified cardiovascular disease Vocal cord paralysis Paralysis of vocal cords or larynx, unsp ecified documented in this encounter Care Teams Interior Mechanic Relationship Specialty Start Date End Date Vladimir Muñoz DO PCP - General Family Medicine 01/19/18 [address] [place] [address] documented as of this encounter
--- OUTSIDE RECORDS SUMMARY | 2022-10-07 08:54 | XMS_ITS | Encounter Summary ---
:1955 Author Organization [place] [address] Care Team Providers Name Role Phone Vladimir Muñoz DO Primary Care Provider Reason for Visit Reason Comments Follow-up 3 month F/U ASCVD Encounter Details Date Type Department Care Team Description 04/21/2018 Office Visit Cardiology at [facility] ASCVD (arter iosclerotic cardiovascular disease); Sami Hanks MD Essential hypertension; [address] [facility] Hype rlipidemia, unspecified hyperlipidemia [place] [address] [phone] Social History Tobacco Use Types Packs/Day Years [...] benign Ext no edema Results for VINOD OCHAO JR. ( ) as of 04/21/2018 08:21 [...] Surgery Catrachita Baez MD [facility] ANESTHESIOLOGY [place], [place] 0375 (Wo rk) 12/15/2022 Office Visit Cardiology Damián Hart MD [facility] [place], [place] 0375 (Wo rk) 03/25/2050 Hospital Encounter Surgery Citlalli Richardson MD Vocal cord paralysis [facility] OTOLARYNGOLOGY [place], [place] 0375 (Wo rk) documented as of this encounter Visit Diagnoses Diagnosis ASCVD (arteriosclerotic cardiovascular d isease) Unspecified cardiovascular disease Essential hypertension Unspecified essential hypertension Hyperlipidemia, unspecified hyperlipidem ia type Vocal cord paralysis Paralysis of vocal cords or larynx, unsp ecified documented in this encounter Care Teams Territory Account Representative Relationship Specialty Start Date End Date Vladimir Muñoz DO PCP - General Family Medicine 01/19/18 580 [place] [address] documented as of this encounter
--- OUTSIDE RECORDS SUMMARY | 2022-10-07 08:54 | XMS_ITS | Encounter Summary ---
:1955 Author Organization [facility] [address] Care Team Providers Name Role Phone Vladimir Muñoz DO Primary Care Provider Encounter Details Date Type Department Care Team Description 05/07[facility] [address] [place] [address] [place] [address] (Wo rk) Social History Tobacco [...] Telephone Encounter - Keke Murcia, RN - 05/10/2020 3:47 PM EDT Call [...] lisinopril. Please call the patient back at [phone]. documented in this encounter Plan of Treatment Upcoming Encounters Date Type Specialty Care Team Description 03/25/2022 Anesthesia Event Surgery Catrachita Baez MD [facility] ANESTHESIOLOGY [place], [place] 0[address] (Wo rk) 12/15/2022 Office Visit Cardiology Damián Hart MD [facility] [place] [address] (Wo rk) 03/25/2050 Hospital Encounter Surgery Citlalli Richardson MD Vocal cord paralysis [facility] OTOLARYNGOLOGY [place], [place] 0375 (Wo rk) documented as of this encounter Visit Diagnoses Not on filedocumented in this encounter Care Teams Double Backer Relationship Specialty Start Date End Date Vladimir Muñoz DO PCP - General Family Medicine 01/19/[address] [place] [address] (work) documented as of this encounter
--- OUTSIDE RECORDS SUMMARY | 2022-10-07 08:55 | XMS_ITS | Encounter Summary ---
:1955 Author Organization [place] [address] Care Team Providers Name Role Phone Librado Alvarado MD Primary Care Provider Reason for Visit Reason Onset Date Comments Medication Refill 03/19/2017 Encounter Details Date Type Department Care Team Description 03/19/2017 Telephone Cardiology at [facility] Benedicto Oconnor Jr., MD Medication Refill [address] [place] [address] [place], [place] [id number] (Wo rk) Social History Tobacco Use Types Packs/Day Years Used Date Smoking Tobacco: Former Cigarettes Comments: quit at age 17 Alcohol [...] 90 day supply? Please call him at [phone]. documented in this encounter Plan of Treatment Upcoming Encounters Date Type Specialty Care Team Description 03/25/2022 Anesthesia Event Surgery Catrachita Baez MD [facility] ANESTHESIOLOGY [place], [place] 0[address] (Wo rk) 12/15/2022 Office Visit Cardiology Damián Hart MD [facility] [place], [place] 0375 (Wo rk) 03/25/2050 Hospital Encounter Surgery Citallli Richardson MD Vocal cord paralysis [facility] OTOLARYNGOLOGY [place], [place] 0375 (Wo rk) documented as of this encounter Visit Diagnoses Diagnosis Atherosclerosis of [place] coronary arter y with angina pectoris, unspecified whether [place] or transplanted heart Vocal cord paralysis Paralysis of vocal cords or larynx, unsp ecified documented in this encounter Care Teams Facility Supervisor Relationship Specialty Start Date End Date Librado Alvarado MD PCP - General 10/08/10 01/18/18 [address] [facility] 11 [place] [address] documented as of this encounter
--- OUTSIDE RECORDS SUMMARY | 2022-10-07 08:55 | XMS_ITS | Encounter Summary ---
:1955 Author Organization [facility] [place] [address] Care Team Providers Name Role Phone Librado Alvarado MD Primary Care Provider Encounter Details Date Type Department Care Team Description 06/05/2017 Telephone Cardiology at [facility] Benedicto Oconnor Jr., MD [address] [place] [address] [place] [address] [place], [place] [id number] (Wo rk) Social History Tobacco Use Types [...] can use? Please call him back at [phone]. documented in this encounter Plan of Treatment Upcoming Encounters Date Type Specialty Care Team Description 03/25/2022 Anesthesia Event Surgery Catrachita Baez MD [facility] ANESTHESIOLOGY [place], [place] 0375 (Wo rk) 12/15/2022 Office Visit Cardiology Damián Hart MD [facility] [place], [place] 0375 (Wo rk) 03/25/2050 Hospital Encounter Surgery Citlalli Richardson MD Vocal cord paralysis [facility] OTOLARYNGOLOGY [place], [place] 0[address] (Wo rk) documented as of this encounter Visit Diagnoses Not on filedocumented in this encounter Care Teams Party Coordinator Relationship Specialty Start Date End Date Librado Alvarado MD PCP - General 10/08/10 01/18/18 [address] [facility] 11 [place] [address] documented as of this encounter
--- OUTSIDE RECORDS SUMMARY | 2022-10-07 08:55 | XMS_ITS | Encounter Summary ---
:1955 Author Organization [facility] [place] [address] Care Team Providers Name Role Phone Librado Alvarado MD Primary Care Provider Encounter Details Date Type Department Care Team Description 03/18/2017 Telephone Cardiology at [facility] Benedicto Oconnor Jr., MD [address] [place] [address] [place] [address] [place], [place] [phone] (Wo rk) Social History Tobacco Use Types [...] Baez MD [facility] ANESTHESIOLOGY [place], [place] 0375 (Wo rk) 12/15/2022 Office Visit Cardiology Damián Hart MD [facility] [place], [place] 0[address] (Wo rk) 03/25/2050 Hospital Encounter Surgery Citlalli Richardson MD Vocal cord paralysis [facility] OTOLARYNGOLOGY [place], [place] 0375 (Wo rk) documented as of this encounter Visit Diagnoses Diagnosis ASCVD (arteriosclerotic cardiovascular d isease) Unspecified cardiovascular disease Vocal cord paralysis Paralysis of vocal cords or larynx, unsp ecified documented in this encounter Care Teams Grounds Maintenance Worker Relationship Specialty Start Date End Date Librado Alvarado MD PCP - General 10/08/10 01/18/18 580 [facility] 11 [place] [address] documented as of this encounter
--- OUTSIDE RECORDS SUMMARY | 2022-10-07 08:55 | XMS_ITS | Encounter Summary ---
:1955 Author Organization [place] [address] Care Team Providers Name Role Phone Librado Alvarado MD Primary Care Provider Encounter Details Date Type Department Care Team Description 04/27/2017 [facility] Benedicto Oconnor Jr., MD [address] [place] [address] [place] [address] [place] [address] (Wo rk) Social History Tobacco [...] - 04/27/2017 1:44 PM EDT Page @ [facility] would like orders for this patient. documented in this encounter Plan of Treatment Upcoming Encounters Date Type Specialty Care Team Description 03/25/2022 Anesthesia Event Surgery Catrachita Baez MD [facility] ANESTHESIOLOGY [place], [place] 0[address] (Wo rk) 12/15/2022 Office Visit Cardiology Damián Hart MD [facility] [place], [place] 0[address] (Wo rk) 03/25/2050 Hospital Encounter Surgery Citlalli Richardson MD Vocal cord paralysis [facility] OTOLARYNGOLOGY [place], [place] 0375 (Wo rk) documented as of this encounter Visit Diagnoses Not on filedocumented in this encounter Care Teams Cosmetic Sales Consultant Relationship Specialty Start Date End Date Librado Alvarado MD PCP - General 10/08/10 01/18/18 [address] [facility] [address] [place] [address] documented as of this encounter
--- OUTSIDE RECORDS SUMMARY | 2022-10-07 08:55 | XMS_ITS | Encounter Summary ---
:1955 Author Organization [facility] [place] [address] Care Team Providers Name Role Phone Librado Alvarado MD Primary Care Provider Encounter Details Date Type Department Care Team Description 11/11/2016 Telephone Cardiology at [facility] Benedicto Oconnor Jr., MD [address] [place] [address] [place], [place] [phone] (Wo rk) Social History Tobacco Use Types Packs/Day Years Used Date Smoking Tobacco: Former Cigarettes Comments: quit at age 17 Sex [...] - 11/11/2016 8:40 AM EST Pt in [facility] ER Nov 09 for CP Called for Er records Has appt w/ Dr Alvarado on Thu Has appt with [facility] [place] on Thursday that did his Cath for F/U of procedure Pt knows Dr. Oconnor gone to documented in this encounter Plan of Treatment Upcoming Encounters Date Type Specialty Care Team Description 03/25/2022 Anesthesia Event Surgery Catrachita Baez MD [facility] ANESTHESIOLOGY [place], [place] 0375 (Wo rk) 12/15/2022 Office Visit Cardiology Damián Hart MD [facility] [address] [place] [address] (Wo rk) 03/25/2050 Hospital Encounter Surgery Citlalli Richardson MD Vocal cord paralysis [facility] OTOLARYNGOLOGY [place], [place] [address] (Wo rk) documented as of this encounter Visit Diagnoses Not on filedocumented in this encounter Care Teams Metal Ceiling Builder Relationship Specialty Start Date End Date Librado Alvarado MD PCP - General 10/08/10 01/18/18 [address] [facility] 11 [place] [address] documented as of this encounter
--- OUTSIDE RECORDS SUMMARY | 2022-10-07 08:55 | XMS_ITS | Encounter Summary ---
:1955 Author Organization [facility] [place] [address] Care Team Providers Name Role Phone Librado Alvarado MD Primary Care Provider Encounter Details Date Type Department Care Team Description 05/25/2017 Telephone Cardiology at [facility] Norma Oconnor, RN 580 [place] [address] Social History Tobacco Use [...] Baez MD [facility] ANESTHESIOLOGY [place], [place] 0[address] (Wo rk) 12/15/2022 Office Visit Cardiology Damián Hart MD [facility] [place], [place] 0[address] (Wo rk) 03/25/2050 Hospital Encounter Surgery Citlalli Richardson MD Vocal cord paralysis [facility] OTOLARYNGOLOGY [place], [place] 0375 (Wo rk) documented as of this encounter Visit Diagnoses Not on filedocumented in this encounter Care Teams Rn Placement Relationship Specialty Start Date End Date Librado Alvarado MD PCP - General 10/08/10 01/18/18 [address] [facility] 11 [place] [address] documented as of this encounter
--- OUTSIDE RECORDS SUMMARY | 2022-10-07 08:55 | XMS_ITS | Encounter Summary ---
:1955 Author Organization [facility] [place] [address] Care Team Providers Name Role Phone Librado Alvarado MD Primary Care Provider Encounter Details Date Type Department Care Team Description 06/25/[address] [facility] Benedicto Oconnor Jr., MD [address] [place] [address] [place] [address] (Wo rk) Social History Tobacco Use Types Packs/Day Years Used Date Smoking Tobacco: Former Cigarettes Comments: quit at age 17 Alcohol Use Standard Drinks/Week Comments Yes 2 (1 standard drink = 0.6 oz pure alcoho l) beer on weekends Sex Assigned at Date Recorded Not on file documented as of this encounter Miscellaneous Notes Telephone Encounter - Sheryl Matthews - 06/25/2017 10:34 AM EDT [facility]ina at cardiac rehab @[phone] would like a call back concerning this patient. They have the note from Dr Oconnor that he can go back to rehab but have questions about whether he got more stents or what. documented in this encounter Plan of Treatment Upcoming Encounters Date Type Specialty Care Team Description 03/25/2022 Anesthesia Event Surgery Catrachita Baez MD [facility] ER ANESTHESIOLOGY [place], [place] 0[address] (Wo rk) 12/15/2022 Office Visit Cardiology Damián Hart MD [facility] [place], [place] 0[address] (Wo rk) 03/25/2050 Hospital Encounter Surgery Citlalli Richardson MD Vocal cord paralysis [facility] OTOLARYNGOLOGY [place], [place] 0[address] (Wo rk) documented as of this encounter Visit Diagnoses Not on filedocumented in this encounter Care Teams Hammerer Relationship Specialty Start Date End Date Librado Alvarado MD PCP - General 10/08/10 01/18/18 580 [facility] 11 [place] [address] documented as of this encounter
--- OUTSIDE RECORDS SUMMARY | 2022-10-07 08:55 | XMS_ITS | Encounter Summary ---
:1955 Author Organization [facility] [place] [address] Care Team Providers Name Role Phone Librado Alvarado MD Primary Care Provider Encounter Details Date Type Department Care Team Description 06/23/[address] [facility] Benedicto Oconnor Jr., MD [address] [place] [address] [place] [address] (Wo rk) Social History Tobacco [...] Catrachita Baez MD [facility] ANESTHESIOLOGY [place], [place] 0[address] (Wo rk) 12/15/2022 Office Visit Cardiology Damián Hart MD [facility] [place], [place] 0[address] (Wo rk) 03/25/2050 Hospital Encounter Surgery Citlalli Richardosn MD Vocal cord paralysis [facility] OTOLARYNGOLOGY [place], [place] 0[address] (Wo rk) documented as of this encounter Visit Diagnoses Not on filedocumented in this encounter Care Teams Brick Burner Relationship Specialty Start Date End Date Librado Alvarado MD PCP - General 10/08/10 01/18/18 [address] [facility] 11 [place] [address] documented as of this encounter
--- OUTSIDE RECORDS SUMMARY | 2022-10-07 08:55 | XMS_ITS | Encounter Summary ---
:1955 Author Organization [facility] [place] [address] Care Team Providers Name Role Phone Librado Alvarado MD Primary Care Provider Reason for Visit Reason Onset Date Comments Medication Problem 06/05/2017 Encounter Details Date Type Department Care Team Description 06/05/2017 Refill [place] [facility] Gabrielle Mondragon, [place] [address] Social History Tobacco Use Types Packs/Day Years [...] CHANTEL GOOD MD Telephone Encounter - Gabrielle Mondragon RN - 06/05/2017 2:07 PM EDT Patient [...] Good for advisement. Pt states his regular Sales Representative Cash Registers, Dr. Benedicto Oconnor is away x 2 weeks. documented in this encounter Plan of Treatment Upcoming Encounters Date Type Specialty Care Team Description 03/25/2022 Anesthesia Event Surgery Catrachita Baez MD [facility] ANESTHESIOLOGY [place], [place] 0[address] (Wo rk) 12/15/2022 Office Visit Cardiology Damián Hart MD [facility] [place], [place] 0[address] (Wo rk) 03/25/2050 Hospital Encounter Surgery Citlalli Richardson MD Vocal cord paralysis [facility] OTOLARYNGOLOGY [place], [place] 0[address] (Wo rk) documented as of this encounter Visit Diagnoses Not on filedocumented in this encounter Care Teams Studio Musician Relationship Specialty Start Date End Date Librado Alvarado MD PCP - General 10/08/10 01/18/18 580 [facility] 11 [place] [address] documented as of this encounter
--- OUTSIDE RECORDS SUMMARY | 2022-10-07 08:55 | XMS_ITS | Encounter Summary ---
:1955 Author Organization [facility] [place] [address] Care Team Providers Name Role Phone Librado Alvarado MD Primary Care Provider Reason for Visit Reason Comments Preoperative Cardiovascular Pre-cath appointment, SOB on Exertion, chest Heaviness Encounter Details Date Type Department Care Team Description 03/06/2017 Office Visit Cardiology at [facility] Benedicto Oconnor Jr., MD Angina effort [address] [facility] [place] [address] [place] [address] (Wo rk) Social History Tobacco [...] Baez MD [facility] ER ANESTHESIOLOGY [place], [place] 037 (Wo rk) 12/15/2022 Office Visit Cardiology Damián Hart MD [facility] [place], [place] [address] ([facility]) 03/25/2050 Hospital Encounter Surgery Citlalli Richardson MD Vocal cord paralysis [facility] OTOLARYNGOLOGY [place], [place] [address] ([facility]) documented as of this encounter Procedures [...] Laterality Volume Narrative 03/10/2017 11:43 AM EDT ?[facility] ? Cardiac Cathete rization/Intervention Report ? Patient Name: Xu Gutiérrez, Burton Long. ? Procedure Date: 03/10/2017 ? A #: [id number] ? Primary Physician: Shelly, Mariama ? Case #: [id number] ? File Name: [id number] ? Catheterization Order Number: [id number] ? [facility] ? Final Report [place], [place] ? Patient Name: ? Burton D. Gar field Jr ? ID#: ?[id number] ? : ?1955 ? Procedure Date: ? March 10, 2017 ? Case #: ? [id number] ? Room: ? 6 ? Case Physician: ? Richa Payne ? Start: ?10:38 ?Fellow: ? Tahmina marinelli M.D. ? Admission: ??03/10/2017 ? Referring ? Benedicto givens M.D. ? Physicians: ?Librado Alvarado M.D. [...] with: sta ble angina (w/i 42 days). [place] ?Cardiovascular Society angina c lass was II. [...] note might be different from the original. [facility] Cardiac Catheterization/Intervention Re port Patient Name: Burton Mcnair Jr Procedure Date: 03/10/2017 A #: [id number] Primary Physician: Mariama Bravo Case #: [id number] File Name: [id number] Catheterization Order Number: [id number] [facility] Final Report [place], [place] Patient Name: Burton Mcnair Jr ID# : [id number] : 1955 Procedure Date: March 10, 2017 [...] He had a recent coronary intervention proc edure. The patient has a history of dyspnea with NYHA functional class I I. He also has a history of an abnormal stress test. Prior to the init iation of this procedure, the patient was designated as ASA Class II. Patient Status at Catheterization: The patient presented with: stable yo na (w/i 42 days). [place] Cardi[employer] Society angina class was II. This [...] ecified documented in this encounter Care Teams Unclaimed Property Manager Relationship Specialty Start Date End Date Librado Alvarado MD PCP - General 10/08/10 01/18/18 580 [place] [id number] documented as of this encounter
--- OUTSIDE RECORDS SUMMARY | 2022-10-07 08:55 | XMS_ITS | Encounter Summary ---
:1955 Author Organization [facility] [place] [address] Care Team Providers Name Role Phone Librado Alvarado MD Primary Care Provider Encounter Details Date Type Department Care Team Description 05/11/2017 Telephone Cardiology at [facility] Benedicto Oconnor Jr., MD [address] [place] [address] [place] [address] [place] [address] (Wo rk) Social History Tobacco [...] glucometer and test strips for [facility] at [facility] and also that he had some throat [...] and let me know Telephone Encounter - NikkiCourtney costa - 05/11/2017 1:28 PM EDT Mr Mcnair needs a refill for diabetic strips. His PCP is on vacation. Hopes Dr. Oconnor will fill this with a generic [facility] [place] documented in this encounter Plan of Treatment Upcoming Encounters Date Type Specialty Care Team Description 03/25/2022 Anesthesia Event Surgery Catrachita Baez MD [facility] ANESTHESIOLOGY [place], [place] 0[address] (Wo rk) 12/15/2022 Office Visit Cardiology Damián Hart MD [facility] [place], [place] [address] (Wo rk) 03/25/2050 Hospital Encounter Surgery Citlalli Richardson MD Vocal cord paralysis [facility] OTOLARYNGOLOGY [place], [place] 0375 (Wo rk) documented as of this encounter Visit Diagnoses Not on filedocumented in this encounter Care Teams Head Of Integrated Media Relationship Specialty Start Date End Date Librado Alvarado MD PCP - General 10/08/10 01/18/18 580 [facility] 11 [place] [address] documented as of this encounter
--- OUTSIDE RECORDS SUMMARY | 2022-10-07 08:55 | XMS_ITS | Encounter Summary ---
:1955 Author Organization [facility] [place] [address] Care Team Providers Name Role Phone Librado Alvarado MD Primary Care Provider Reason for Referral Diagnostic Test (Routine) - Specialty Diagnoses / Procedures Referred By Contact Refer red To Contact Diagnoses ASCVD (arteriosclerotic cardiovascular disease) Chest pain, unspecified type Benedicto Oconnor Jr., MD Procedures NM Pharmacologic Stress Myocardial Perfusion [address] [place] [address] Referral ID Status Reason Start Date Expiration Visits Visits Date Requested Authorized [id number] Specialty 11/12/2017 05/11/2018 1 1 Service Requested [...] type [address] [facility] [place] [id number] [phone] Social History Tobacco Use Types Packs/Day Years [...] 03/25/2022 Anesthesia Event Surgery Catrachita Baez MD [facility] ANESTHESIOLOGY [place], [place] [address] (Wo rk) 12/15/2022 Office Visit Cardiology Damián Hart MD [facility] [place], [place] [address] (Wo rk) 03/25/2050 Hospital Encounter Surgery Citlalli Richardson MD Vocal cord paralysis [facility] OTOLARYNGOLOGY [place], [place] [address] (Wo rk) documented as of this encounter Results NM Pharmacologic Stress Myocardial Perfusion (11/23/2017) Anatomical Region Laterality Modality Other Narrative 11/23/2017 MIBI Exercise Stress Test- Final Report ?? Burton Mcnair Jr. : 1955 [facility], [address] [place] [address] Primary Physician: ??Librado Alvarado MD ? ?Indication: [...] Spect-same Electronically signed: Benedicto Oconnor Jr, MD [facility] ??Date: 11/23/2017 Benedicto Oconnor Jr., MD IM NM ORDERABLES documented in this encounter Visit Diagnoses Diagnosis ASCVD (arteriosclerotic cardiovascular d isease) Unspecified cardiovascular disease Chest pain, unspecified type Chest pain, unspecified type ASCVD (arteriosclerotic cardiovascular d isease) Unspecified cardiovascular disease Vocal cord paralysis Paralysis of vocal cords or larynx, unsp ecified documented in this encounter Care Teams Design Draftsman Relationship Specialty Start Date End Date Librado Alvarado MD PCP - General 10/08/10 01/18/18 [address] [place] [address] documented as of this encounter
--- OUTSIDE RECORDS SUMMARY | 2022-10-07 08:55 | XMS_ITS | Encounter Summary ---
:1955 Author Organization [facility] [place] [address] Care Team Providers Name Role Phone Librado Alvarado MD Primary Care Provider Reason for Visit Auth/Cert Specialty Diagnoses / Procedures Referred By Contact Refer red To Contact Diagnoses ASCVD (arteriosclerotic cardiovascular disease) ASCVD Procedures PRO CATH PLMT LEFT HEART CATH & ARTS W/INJ & ANGIO IMG S&I CARDIAC CATHETERIZATION Referral ID Status Reason Start Date Expiration Date Visits Requ ested Visits Authorized [id number] 1 1 Encounter Details Date Type Department Care Team Description 06/02/2017 Hospital Encounter Same Day Program at [facility], Chest pain, unspecified type; Gabrielle Chiang MD ASCVD (arteriosclerotic cardiovascular d isease); [facility] Diabetes mellitus without co mplication; [facility] DR [facility] [place], [place] DEPT. [id number] [place], [place] [phone] [facility] Social History Tobacco Use Types Packs/Day Years [...] by your doctor, do not take any fjpz-jrh-hhyncka medicines orherbal preparations without first discussing this with your doctor or pharmacist. There is the possibility of side effect and interactions when these are combined. Follow up Care Who to Call with Questions or Problems If there are any questions or problems that you think might be related to your cardiac cath or angioplasty, contact the director of corporate real estate data quality consultant by calling [facility] at . documented in this encounter [...] daily. Sustained Release 24 hrIndications: Atherosclerosis of kake coronary artery with angina pectoris, unspecified whether kake or transplanted heart amLODIPine (NORVASC) 10 Take [...] coronary intervention PI: Rigoberto Wyatt MD Pager# [phone] Consent: I met with Mr. Mcnair and [...] - 06/02/2017 1:13 PM EDT Burton Mcnair is a 62 y.o. male referred for [...] Baez MD [facility] ANESTHESIOLOGY [place], [place] [address] (Wo rk) 12/15/2022 Office Visit Cardiology Damián Hart MD [facility] [place], [place] [address] (Wo rk) 03/25/2050 Hospital Encounter Surgery Citlalli Richardson MD Vocal cord paralysis [facility] OTOLARYNGOLOGY [place], [place] [address] (Wo rk) documented as of [...] Signature POC Glucose 168 65 - 199 [facility] Comment: Supplemental ranges: <140 mg/dL before meals <180 mg/dL all other times of the day Specimen Anatomical Collection Method Collection Time Receive d Time (Source) Location / / Volume Laterality Blood specimen 06/02/2017 3:40 PM 017 3:40 (specimen) EDT PM EDT Rigoberto Wyatt MD POINT OF CARE TEST ORDERABLE S Performing Organization Address City/State/[place] [address] POCT Glucose (06/02/2017 10:33 AM EDT) athologist Signature POC Glucose 166 65 - 199 [facility] mg[facility]dL [facility] Comment: Supplemental ranges: <140 mg/dL before meals <180 mg/dL all other times of the day Specimen Anatomical Collection Method Collection Time Receive d Time (Source) Location / / Volume Laterality Blood specimen 06/02/2017 10:33 7 (specimen) AM EDT 10:33 AM EDT Rigoberto Wyatt MD POINT OF CARE TEST ORDERABLE S Performing Organization Address City/State/[place] [address] Prothrombin Time (06/02/2017 10:18 AM EDT) athologist Signature PT 13.9 12.0 - 15.0 [facility] LABORATORY Comment: An INR <2.0 indicates [...] linical circumstances. INR 1.0 0.9 - 1.1 [facility] LABORATORY Specimen Anatomical Collection Method Collection Time Receive d Time (Source) Location / / Volume Laterality Blood specimen Venous Draw / 06/02/2017 10:18 06/02/20 17 (specimen) Unknown AM EDT 10:22 AM EDT Resulting Agency Comment Spec In Lab Benedicto Oconnor Jr., MD HEMATOLOGY ORDERABLES Performing Organization Address City/[facility]/ZIP Code Phon e Number [address] APTT (06/02/2017 10:18 AM EDT) P athologist Signature PTT 27 25 - 35 sec [facility] Comment: The recommended therapeutic range for fu ll dose, unfractionated heparin at [facility] is 80 ? 114 seconds. The use [...] Jr., MD HEMATOLOGY ORDERABLES Performing Organization Address [facility] Code Phon e Number [place] [phone] [facility] [address] Differential, Automated (06/02/2017 10:18 AM EDT) athologist Signature Neutrophils % 68.0 % [facility] Neutr Abs (ANC) 3.59 1.70 - [facility] 6.10 [facility] x10(3)/[facility] LABORATORY Lymphocytes % 21.2 % [facility] Lymphocytes Abs 1.1 0.9 - 3.2 [facility] x10(3)/[facility] LABORATORY Monocytes % 7.4 % [facility] Monocyte Abs 0.4 0.3 - 0.9 [facility] x10(3)/[facility] LABORATORY Eosinophils % 2.1 % [facility] Eosinophils Abs 0.1 0.0 - 0.4 [facility] x10(3)/[facility] LABORATORY Basophils % 0.9 % [facility] Basophils Abs 0.0 0.0 - 0.1 [facility] x10(3)/[facility] LABORATORY Immature Gran % 0.40 % [facility] Comment: Immature granulocytes(IG's)percentage an d absolute count will include metamyelocytes, myelocytes, and promyelo cytes. Blood smears from CBCs yielding IG's will be scanned manually for concor dance. If this scan disagrees with the automated IG or if promyelocytes are not ed, a manual differential will be performed. Nikole Gran Abs 0.02 0.00 - 0.04 x10(3)/[facility] LABORATORY Specimen Anatomical Collection Method Collection Time Receive d Time (Source) Location / / Volume Laterality Blood specimen Venous Draw / 06/02/2017 10:18 07 17 (specimen) Unknown AM EDT 10:22 AM EDT Resulting Agency Comment Spec In Lab Benedicto Oconnor Jr., MD HEMATOLOGY ORDERABLES Performing Organization Address City/State/[place] [address] (ABNORMAL) Hemogram (06/02/2017 10:18 AM EDT) Analysis Performed At Patho logist Time Signature WBC 5.3 4.0 - 9.5 [facility] x10(3)/[facility] LABORATORY RBC 4.69 4.58 - [facility] LOY 5.54 [facility] x10(6)/[facility] LABORATORY Hemoglobin 14.7 13.7 - [facility] 16.5 gm/dL [facility] Hematocrit 40.9 40.5 - [facility] LOY 48.5 % [facility] MCV 87.2 82.9 - [facility] LOY 93.1 [facility] LABORATORY MCH 31.3 27.5 - [place] LOY 32.1 pg [facility] MCHC 35.9 (H) 32.0 - [facility] 35.[facility] gm/dL [facility] Platelets 152 145 - 357 [facility] x10(3)/[facility] LABORATORY RDWSD 37.2 36.0 - [place] LOY 45.0 [facility] RDWCV 11.7 11.4 - [facility] LOY 13.8 % [facility] MPV 9.3 7.6 - 12.9 [facility] LABORATORY nRBC % Auto 0.0 % [facility] nRBC Abs Auto 0.000 0.000 - [facility] 0.000 [facility] x10(3)/[facility] LABORATORY Specimen Anatomical Collection Method Collection Time Receive d Time (Source) Location / / Volume Laterality Blood specimen Venous Draw / 06/02/2017 10:18 06/02/20 17 (specimen) Unknown AM EDT 10:22 AM EDT Resulting Agency Comment Spec In Lab Benedicto Oconnor Jr., MD HEMATOLOGY ORDERABLES Performing Organization Address City/State/[place] [address] (ABNORMAL) BMP w/fasting Glucose (06/02/2017 10:18 AM EDT) athologist Signature Glucose 198 (H) 65 - 99 [facility] Fasting mg/dL [facility] Comment: ?Fasting* Glucose Interpretive C riteria Normal ?65-99 mg/dL Impaired Fasting glucose ?100-125 mg/dL Consistent with Diabetes Mellitus ? >or= 126 mg/dL *Fasting is defined as no caloric intake for at least 8 hours In the absence of unequivocal hypergly cemia a plasma glucose value of >or= 126 mg/dL should be repeated on a subseq u day. Diagnosis and Classification of Diabetes Mellitus, Position Statement from the [place] Diabetes Association. ??Diabete s Care, Volume 33, Supplement 1, Nov 2009 BUN 10 10 - 20 mg/dL [facility] Creatinine 0.74 (L) 0.80 - 1.50 mg/dL [facility] Comment: Please note that the pediatric reference intervals supplied above were not validated at [facility]. Results from pediatri c patients should be interpreted in conjunction to the patient's age, height and muscle mass. Sodium 138 135 - 145 mmol/L [facility] Potassium 4.4 3.5 - 5.0 mmol/L [facility] Comment: Please note: ??Patients with WBC >100,00 0 may have falsely elevated Potassium levels. ??For accurate Potassium quantif ication in these patients send serum separator tube (gold top) for subsequent determinations. ??Contact the Clinical Chemistry Laboratory if there are any qu estions. Chloride 97 (L) 98 - 107 mmol/L [facility] CO2 26 22 - 31 mmol/L [facility] Anion Gap 15 5 - 15 mmol/L [facility] Calcium 9.8 8.5 - 10.5 mg/dL [facility] Estimated GFR >60 >=60 [facility] Comment: This estimated GFR [...] the following links into your internet browser. [email or web address] Specimen Anatomical Collection Method Collection Time Receive d Time (Source) Location / / Volume Laterality Blood specimen 06/02/2017 10:18 7 (specimen) AM EDT 10:22 AM EDT Resulting Agency Comment Spec In Lab Benedicto Oconnor Jr., MD CHEMISTRY ORDERABLES Performing Organization Address City/State/[place] [address] documented in this encounter [...] 15 50 (New Bag - Provider: Azra Fan, ESTEFANIA) 75 mL/hr, at 75 mL/hr, Intravenous, CONT [...] Rigoberto Wyatt MD - Comment: Contrast in Content Creation Manager) ONCE PRN, Starting Thu06/02/17 at 1515, Until [...] ONCE PRN, Starting 06/02/17 at 1434, Until 06/02/17 at 1517, Cath (Intra- Procedure), Routine documented in this encounter Care Teams Engineering Manager Relationship Specialty Start Date End Date Librado Alvarado MD PCP - General 10/08/10 01/18/[address] [address] documented as of this encounter
--- OUTSIDE RECORDS SUMMARY | 2022-10-07 08:55 | XMS_ITS | Encounter Summary ---
:1955 Author Organization [facility] [place] [address] Care Team Providers Name Role Phone Librado Alvarado MD Primary Care Provider Encounter Details Date Type Department Care Team Description 03/03/[address] [facility] Benedicto Oconnor Jr., MD [address] [place] [address] [place] [address] [place], [place] [id number] (Wo rk) Social History Tobacco Use Types [...] so will get those. CXR good from Telephone Encounter - Benedicto Oconnor Jr., MD [...] Catrachita Baez MD [facility] ANESTHESIOLOGY [place], [place] [address] (Wo rk) 12/15/2022 Office Visit Cardiology Damián Hart MD [facility] [place], [place] [address] (Wo rk) 03/25/2050 Hospital Encounter Surgery Citlalli Richardson MD Vocal cord paralysis [facility] OTOLARYNGOLOGY [place], [place] [address] (Wo rk) documented as of [...] ecified documented in this encounter Care Teams Lay Out And Detail Drafter Relationship Specialty Start Date End Date Librado Alvarado MD PCP - General 10/08/10 01/18/18 [address] [facility] [address] [place] [address] documented as of this encounter
--- OUTSIDE RECORDS SUMMARY | 2022-10-07 08:55 | XMS_ITS | Encounter Summary ---
:1955 Author Organization [facility] [place] [address] Care Team Providers Name Role Phone Librado Alvarado MD Primary Care Provider Reason for Visit Auth/Cert Specialty Diagnoses / Procedures Referred By Contact Refer red To Contact Diagnoses ASCVD (arteriosclerotic cardiovascular disease) ASCVD Procedures PRO CATH PLMT LEFT HEART CATH & ARTS W/INJ & ANGIO IMG S&I CARDIAC CATHETERIZATION Referral ID Status Reason Start Date Expiration Date Visits Requ ested Visits Authorized [id number] 1 1 Encounter Details Date Type Department Care Team Description 06/02/2017 Surgery Clinical Rn Manager Jessie Arias MD CARDIAC CATHETERIZATION [facility] DR Uriarte [place] [address] [place] [address] [phone] (Wo rk) Social History Tobacco Use Types [...] by your doctor, do not take any ocam-jim-vxsscay medicines orherbal preparations without first discussing this with your doctor or pharmacist. There is the possibility of side effect and interactions when these are combined. Follow up Care Who to Call with Questions or Problems If there are any questions or problems that you think might be related to your cardiac cath or angioplasty, contact the assistant nurse manager production team advisor by calling [facility] [...] daily. Sustained Release 24 hrIndications: Atherosclerosis of [place] coronary artery with angina pectoris, unspecified whether [place] or transplanted heart amLODIPine (NORVASC) 10 Take [...] coronary intervention PI: Rigoberto Wyatt MD Pager# [phone] Consent: I met with Mr. Mcnair and [...] Catrachita Baez MD [facility] ANESTHESIOLOGY [place], [place] [address] (Wo rk) 12/15/2022 Office Visit Cardiology Damián Hart MD [facility] [place], [place] [address] (Wo rk) 03/25/2050 Hospital Encounter Surgery Citlalli Richardson MD Vocal cord paralysis [facility] OTOLARYNGOLOGY [place], [place] [address] (Wo rk) documented as of [...] Signature POC Glucose 168 65 - 199 JAIRO LOY mg/dL [facility] Comment: Supplemental ranges: <140 mg/dL before meals <180 mg/dL all other times of the day Specimen Anatomical Collection Method Collection Time Receive d Time (Source) Location / / Volume Laterality Blood specimen 06/02/2017 3:40 PM 017 3:40 (specimen) EDT PM EDT Rigoberto Wyatt MD POINT OF CARE TEST ORDERABLE S Performing Organization Address City/State/ZIP Code Phon e Number [address] POCT Glucose (06/02/2017 10:33 AM EDT) athologist Signature POC Glucose 166 65 - 199 [facility] mg/dL [facility] Comment: Supplemental ranges: <140 mg/dL before meals <180 mg/dL all other times of the day Specimen Anatomical Collection Method Collection Time Receive d Time (Source) Location / / Volume Laterality Blood specimen 06/02/2017 10:33 7 (specimen) AM EDT 10:33 AM EDT Rigoberto Wyatt MD POINT OF CARE TEST ORDERABLE S Performing Organization Address City/[facility]/[place] [address] Prothrombin Time (06/02/2017 10:18 AM EDT) P athologist Signature PT 13.9 12.0 - 15.0 [facility] LABORATORY Comment: An INR <2.0 [...] linical circumstances. INR 1.0 0.9 - 1.1 [facility] LABOR[facility]ORY Specimen Anatomical Collection Method Collection Time Receive d Time (Source) Location / / Volume Laterality Blood specimen Venous Draw / 06/02/2017 10:18 06/02/20 17 (specimen) Unknown AM EDT 10:22 AM EDT Resulting Agency Comment Spec In Lab Benedicto Oconnor Jr., MD HEMATOLOGY ORDERABLES Performing Organization Address City/[facility]/ZIP Code Phon e Number [address] APTT (06/02/2017 10:18 AM EDT) athologist Signature PTT 27 25 - 35 sec [facility] Comment: The recommended therapeutic range for fu ll dose, unfractionated heparin at [facility] is 80 ? 114 seconds. The use [...] Organization Address City/State/ZIP Code Phon e Number [place] [phone]OS[address]ITAL [address] Differential, Automated (06/02/2017 10:18 AM EDT) athologist Signature Neutrophils % 68.0 % [facility] Neutr Abs (ANC) 3.59 1.70 - [facility] 6.10 [facility] x10(3)/[facility] LABORATORY Lymphocytes % 21.2 % [facility] Lymphocytes Abs 1.1 0.9 - 3.2 [facility] x10(3)/[facility] LABORATORY Monocytes % 7.4 % [facility] Monocyte Abs 0.4 0.3 - 0.9 [facility] x10(3)/[facility] LABORATORY Eosinophils % 2.1 % [facility] Eosinophils Abs 0.1 0.0 - 0.4 [facility] x10(3)/[facility] LABORATORY Basophils % 0.9 % [facility] Basophils Abs 0.0 0.0 - 0.1 [facility] x10(3)/[facility] LABORATORY Immature Gran % 0.40 % [facility] Comment: Immature granulocytes(IG's)percentage an d absolute count will include metamyelocytes, myelocytes, and promyelo cytes. Blood smears from CBCs yielding IG's will be scanned manually for concor dance. If this scan disagrees with the automated IG or if promyelocytes are not ed, a manual differential will be performed. Nikole Gran Abs 0.02 0.00 - 0.04 x10(3)/[facility] LAB[facility] Specimen Anatomical Collection Method Collection Time Receive d Time (Source) Location / / Volume Laterality Blood specimen Venous Draw / 06/02/2017 10:18 06/02/20 17 (specimen) Unknown AM EDT 10:22 AM EDT Resulting Agency Comment Spec In Lab Benedicto Oconnor Jr., MD HEMATOLOGY ORDERABLES Performing Organization Address City/State/ZIP Code [place] [address] (ABNORMAL) Hemogram (06/02/2017 10:18 AM EDT) Analysis Performed At Patho logist Time Signature WBC 5.3 4.0 - 9.5 [facility] x10(3)/[facility] LABORATORY RBC 4.69 4.58 - [facility] LOY 5.54 [facility] x10(6)/[facility] LABORATORY Hemoglobin 14.7 13.7 - [facility] 16.5 gm/dL [facility] Hematocrit 40.9 40.5 - [facility] 48.5 % [facility] MCV 87.2 82.9 - [facility] 93.1 [facility] LABORATORY MCH 31.3 27.5 - [facility] LOY 32.1 pg [facility] MCHC 35.9 (H) 32.0 - [facility] 35.7 gm/dL [facility] Platelets 152 145 - 357 [facility] x[facility] LABORATORY RDWSD 37.2 36.0 - [facility] LOY 45.0 [facility] LABORATORY RDWCV 11.7 11.4 - [facility] 13.8 % [facility] MPV 9.3 7.6 - 12.9 [facility] LABORATORY nRBC % Auto 0.0 % [facility] nRBC Abs Auto 0.000 0.000 - [facility] LOY 0.000 [facility] x10(3)/[facility] LABORATORY Specimen Anatomical Collection Method Collection Time Receive d Time (Source) Location / / Volume Laterality Blood specimen Venous Draw / 06/02/2017 10:18 06/02/20 17 (specimen) Unknown AM EDT 10:22 AM EDT Resulting Agency Comment Spec In Lab Benedicto Oconnor Jr., MD HEMATOLOGY ORDERABLES Performing Organization Address City/State/ZIP Code Ir[place] [address] (ABNORMAL) BMP w/fasting Glucose (06/02/2017 10:18 AM EDT) athologist Signature Glucose 198 (H) 65 - 99 [facility] Fasting mg/dL [facility] Comment: ?Fasting* Glucose Interpretive C [...] of Diabetes Mellitus, Position Statement from the [place] [employer]. ??Diabete s Care, Volume 33, Supplement 1, Nov 2009 BUN 10 10 - 20 mg/dL [facility] Creatinine 0.74 (L) 0.80 - 1.50 mg/dL [facility] Comment: Please note that the pediatric reference intervals supplied above were not validated at [facility]. Results from pediatri c patients should be interpreted in conjunction to the patient's age, height and muscle mass. Sodium 138 135 - 145 mmol/L [facility] Potassium 4.4 3.5 - 5.0 mmol/L [facility] Comment: Please note: ??Patients with WBC >100,00 0 may have falsely elevated Potassium levels. ??For accurate Potassium quantif ication in these patients send serum separator tube (gold top) for subsequent determinations. ??Contact the Clinical Chemistry Laboratory if there are any qu estions. Chloride 97 (L) 98 - 107 mmol/L [facility] CO2 26 22 - 31 mmol/L [facility] Anion Gap 15 5 - 15 mmol/L [facility] Calcium 9.8 8.5 - 10.5 mg/dL [facility] Estimated GFR >60 >=60 [facility] Comment: This estimated GFR [...] the following links into your internet browser. [email or web address] Specimen Anatomical Collection Method Collection Time Receive d Time (Source) Location / / Volume Laterality Blood specimen 06/02/2017 10:18 7 (specimen) AM EDT 10:22 AM EDT Resulting Agency Comment Spec In Lab Benedicto Oconnor Jr., MD CHEMISTRY ORDERABLES Performing Organization Address City/State/ZIP [place] [address] documented in this encounter [...] Provider: Roxy Richardson, RN) ONCE PRN, Starting 06/02/17 at 1353, Until 06/02/17 at 1517, Intra- Operative (Intra-Procedure), Routine heparin (porcine) injection (CANCELED) 1409 (Given - Provider: Rigoberto Wyatt MD)1428 (Given - Provider: Rigoberto Wyatt MD) ONCE PRN, Starting 06/02/17 at 1409, Until 06/02/17 at 1517, Cath (Intra- Procedure), Routine iohexol (OMNIPAQUE) 350 mg/mL solution (CANCELED) 1515 (Given - Provider: Rigoberto Wyatt MD - Comment: Contrast in Clinical Rn Manager) ONCE PRN, Starting 06/02/17 at 1515, Until 06/02/17 at 1517, Cath (Intra- Procedure), Routine midazolam (PF) (VERSED) 1 mg/mL multi-dose injection (CANCELED) 1353 (Given - Provider: Roxy Richardson, ESTEFANIA) ONCE PRN, Starting e 06/02/17 at 1353, Until 06/02/17 at 1517, Cath (Intra- Procedure), Routine nitroGLYcerin 100 mcg/mL intracoronary dilution (CANCELED) 1434 (Given - Provider: Rigoberto Wyatt MD - Comment: into OM1)1456 (Given - Provider: Rigoberto Wyatt MD - Comment: into RCA) ONCE PRN, Starting e 06/02/17 at 1434, Until e 06/02/17 at 1517, Cath (Intra- Procedure), Routine documented in this encounter Care Teams Supervisor Fertilizer Relationship Specialty Start Date End Date Librado Alvarado MD PCP - General 10/08/10 01/18/18 [address] [facility] [address] [place] [address] documented as of this encounter
--- OUTSIDE RECORDS SUMMARY | 2022-10-07 08:55 | XMS_ITS | Encounter Summary ---
:1955 Author Organization [facility] [place] [address] Care Team Providers Name Role Phone Librado Alvarado MD Primary Care Provider Encounter Details Date Type Department Care Team Description 11/14/2016 Telephone Cardiology at [facility] Vick Pate, [place] [address] Social History Tobacco Use Types Packs/Day [...] Event Surgery Catrachita Baez MD [facility] ANESTHESIOLOGY [place], [place] [address] (Wo rk) 12/15/2022 Office Visit Cardiology Damián Hart MD [facility] [place], [place] [address] (Wo rk) 03/25/2050 Hospital Encounter Surgery Citlalli Richardson MD Vocal cord paralysis [facility] OTOLARYNGOLOGY [place], [place] [address] (Wo rk) documented as of this encounter Visit Diagnoses Not on filedocumented in this encounter Care Teams Commercial Door Installer Relationship Specialty Start Date End Date Librado Alvarado MD PCP - General 10/08/10 01/18/18 580 [facility] [address] [place] [address] documented as of this encounter
--- OUTSIDE RECORDS SUMMARY | 2022-10-07 08:55 | XMS_ITS | Encounter Summary ---
:1955 Author Organization [facility] [place] [address] Care Team Providers Name Role Phone Librado Alvarado MD Primary Care Provider Encounter Details Date Type Department Care Team Description 04/27/2017 External Results Cardiology at [facility] Benedicto Oconnor Jr., MD [address] [facility] [address] [place] [address] [facility] [address] [place], [place] [address] [phone] Social History Tobacco Use Types Packs/Day Years [...] 03/25/2022 Anesthesia Event Surgery Catrachita Baez MD [facility] ANESTHESIOLOGY [place], [place] [address] (Wo rk) 12/15/2022 Office Visit Cardiology Damián Hart MD [facility] er [address] [place], [place] [address] (Wo rk) 03/25/2050 Hospital Encounter Surgery Citlalli Richardson MD Vocal cord paralysis [facility] OTOLARYNGOLOGY [place], [place] [address] (Wo rk) documented as of [...] on filedocumented in this encounter Care Teams Life Trainer Relationship Specialty Start Date End Date Librado Alvarado MD PCP - General 10/08/10 01/18/18 580 [facility] [place] [address] documented as of this encounter
--- OUTSIDE RECORDS SUMMARY | 2022-10-07 08:55 | XMS_ITS | Encounter Summary ---
:1955 Author Organization [facility] [place] [address] Care Team Providers Name Role Phone Librado Alvarado MD Primary Care Provider Encounter Details Date Type Department Care Team Description 03/02/2017 Ext Surgery or [facility] Benedicto Oconnor Chest pain, unspecified type; Single Event [facility] MD Latonya ASCVD (arteriosclerotic cardiovascular d isease) [address] [facility] [address] [facility] [address] [place] [address] [phone] Social History Tobacco Use Types Packs/Day Years Used Date Smoking Tobacco: Former Cigarettes Comments: quit at age 17 Sex Assigned at Date Recorded Not on file documented as of this encounter Plan of Treatment Upcoming Encounters Date Type Specialty Care Team Description 03/25/2022 Anesthesia Event Surgery Catrachita Baez MD [facility] ANESTHESIOLOGY [place], [place] [address] (Wo rk) 12/15/2022 Office Visit Cardiology Damián Hart MD [facility] [address] [place] [address] (Jasvir rk) 03/25/2050 Hospital Encounter Surgery Citlalli Richardson MD Vocal cord paralysis [facility] [place] [address] (Wo rk) documented as of this [...] Report ?? Burton Mcnair Jr. : 1955 [facility] [place] [address] Primary Physician: ??Librado Alvarado MD ? ?Indication: [...] ecified documented in this encounter Care Teams Bonus Clerk Relationship Specialty Start Date End Date Librado Alvarado MD PCP - General 10/08/10 01/18/18 580 [facility] 11 [place] [address] documented as of this encounter
--- OUTSIDE RECORDS SUMMARY | 2022-10-07 08:55 | XMS_ITS | Encounter Summary ---
:1955 Author Organization [facility] [place] [address] Care Team Providers Name Role Phone Librado [...] Description 05/22/2017 Office Visit Cardiology at Benedicto Oconnoro sis of Sami Hanks MD [place] coronary artery [address] [facility] with angina pectoris, Cal A RD CAL A unspecified whether [place], [place] or [place] [phone] heart [phone] Social History Tobacco Use Types Packs/Day Years [...] Surgery Catrachita Baez MD [facility] DR ANESTHESIOLOGY [place], [place] [address] (Wo rk) 12/15/2022 Office Visit Cardiology Dami[facility] MD [facility] [place], [place] [address] (Wo rk) 03/25/2050 Hospital Encounter Surgery Citlalli Richardson MD Vocal cord paralysis [facility] OTOLARYNGOLOGY [place], [place] [address] (Wo rk) documented as of this encounter Visit Diagnoses Diagnosis Atherosclerosis of [place] coronary arter y with angina pectoris, unspecified whether [place] or transplanted heart Vocal cord paralysis Paralysis of vocal cords or larynx, unsp ecified documented in this encounter Care Teams Township Supervisor Relationship Specialty Start Date End Date Librado Alvarado MD PCP - General 10/08/10 01/18/18 580 [facility] 11 [place] [address] documented as of this encounter
--- OUTSIDE RECORDS SUMMARY | 2022-10-07 08:55 | XMS_ITS | Encounter Summary ---
:1955 Author Organization [facility] Address [facility] [place] [address] Care Team Providers Name Role Phone Librado Alvarado MD Primary Care Provider Reason for Visit Reason Onset Date Comments Other 06/12/2017 nhi believes me dication is giving him headaches Encounter Details Date Type Department Care Team Description 06/12/2017 Telephone Cardiology at [facility] Rigoberto Wyatt MD Other ([facility] [place] medication is Drive DR giving him headaches) [place] [address] CARDIOLOGY DEPT. [phone] [place], [place] [address] (Wo rk) Social History Tobacco [...] He would appreciate a call back at [phone] to discuss possible solutions documented in this encounter Plan of Treatment Upcoming Encounters Date Type Specialty Care Team Description 03/25/2022 Anesthesia Event Surgery Catrachita Baez MD [facility] ANESTHESIOLOGY [place], [place] [address] (Wo rk) 12/15/2022 Office Visit Cardiology Damián Hart MD [facility] [place], [place] [address] (Wo rk) 03/25/2050 Hospital Encounter Surgery Citlalli Richardson MD Vocal cord paralysis [facility] OTOLARYNGOLOGY [place], [place] [address] (Wo rk) documented as of this encounter Visit Diagnoses Not on filedocumented in this encounter Care Teams Print Line Inspector Relationship Specialty Start Date End Date Librado Alvarado MD PCP - General 10/08/10 01/18/18 580 [facility] 11 [place] [address] documented as of this encounter
--- OUTSIDE RECORDS SUMMARY | 2022-10-07 08:55 | XMS_ITS | Encounter Summary ---
:1955 Author Organization [facility] [place] [address] Care Team Providers Name Role Phone Librado Alvarado MD Primary Care Provider Encounter Details Date Type Department Care Team Description 11/09/2016 Telephone Cardiology Shirley Pablo MD [facility] [place] [address] CARDIOLOGY DEPT [phone] [place] [id number] (Wo rk) Social History Tobacco Use Types [...] Requested to have him evaluated by outpatient hog killer Dr. Oconnor, and if needed we'll evaluatehim again at [facility] cardiology. Shirley Pablo MD Professor Of Environmental Studies Pager # [phone] documented in this encounter Plan of Treatment Upcoming Encounters Date Type Specialty Care Team Description 03/25/2022 Anesthesia Event Surgery Catrachita Baez MD [facility] ANESTHESIOLOGY [place], [place] [address] (Wo rk) 12/15/2022 Office Visit Cardiology Damián Hart MD [facility] [place], [place] [address] (Wo rk) 03/25/2050 Hospital Encounter Surgery Citlalli Richardson MD Vocal cord paralysis [facility] OTOLARYNGOLOGY [place], [place] [address] (Wo rk) documented as of this encounter Visit Diagnoses Not on filedocumented in this encounter Care Teams Farm Implement Mechanic Relationship Specialty Start Date End Date Librado Alvarado MD PCP - General 10/08/10 01/18/18 580 [facility] 11 [place] [address] documented as of this encounter
--- OUTSIDE RECORDS SUMMARY | 2022-10-07 08:55 | XMS_ITS | Encounter Summary ---
:1955 Author Organization [place] [address] Care Team Providers Name Role Phone Librado Alvarado MD Primary Care Provider Reason for Referral Consultation (Routine) - Specialty Diagnoses / Procedures Referred By Contact Refer red To Contact Cardiac Rehabilitation Diagnoses S/P coronary angioplasty Mariama Bravo MD Cardiac Rehab, [facility] [address] [place] [address] Fax: Referral ID Status Reason Start Date [...] ASCVD (arteriosclerotic cardiovascular d isease); 03/11/2017 Encounter Gabrielle Chiang [facility] Medical S/P coronary angioplasty [facility], [place] [address] [address] [place], [place] [phone] (Work) [phone] Social History Tobacco Use Types Packs/Day Years [...] Mcnair Jr. Patient Age: 62 y.o. Language: Czech Race: White Ethnicity: Not nor Admit date: 03/10/2017 Discharge date and time: 03/11/2017 Attending Physician: Mariama Bravo MD Discharge Physician: Mariama Bravo MD Follow-up Recommendations for Providers: - dual antiplatelet regimen as follows: - aspirin 81 mg daily lifelong - clopidogrel 75 mg daily alf as tolerated - Of note, he had [...] priority for the procedure was Elective. The [facility] indication for the procedure was Stable angina. [...] appointments: -During 8am-5pm Thursday through Thursday call [phone] to speak with a nurse in the cardiology clinic -All other times call [phone] and ask to speak to the equipment validation specialist consulting practice manager. MEDICATIONS - restart your metformin on , 03/12/2017 - amlodipine has been increased to 10 mg daily - you need to be on daily Plavix alf and aspirin for lifetime to help prevent clots forming inside of your stent. - keep nitroglycerin with you at all times, if you have chest pain, can take 1 tablet under your tongue every 5 minutes up to 3 tablets. If your pain does not resolve you need to call [phone]. Return to usual actvities: 1 week, as tolerated. 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 Driving: No driving for 48 hours after catheterization. Follow up Appointments: Primary care provider: Cardiology: Librado Alvarado MD [phone] Follow up as planned or as needed. Dr. Benedicto Oconnor Call to confirm appointment Dr Mariama Bravo, [facility] Follow-up in 6 weeks General Instructions None Future Appointments and Orders Future Orders Complete By Expires Referral to Cardiac Rehab [[id number] Custom] As directed Process Instructions: If no progress note charted, please enter Clinical details in comments. Scheduling Instructions: Questions: My question or request is: s/p angioplasty. Cardiac rehab at [facility] Discharge References/Attachments None documented in this encounter Discharge Instructions Patient InstructionsTahmina Leone MD - 03/10/2017 2:52 PM EDT Cardiology Instructions Call your doctor if: Chest pain, dyspnea, pain or swelling in legs occurs. If you have non-emergent questions between now and the time of your follow up appointments: -During 8am-5pm Thursday through Thursday call [phone] to speak with a nurse in the cardiology clinic -All other times call [phone] and ask to speak to the equipment validation specialist consulting practice manager. MEDICATIONS - restart your metformin on , 03/12/2017 - amlodipine has been increased to 10 mg daily - you need to be on daily Plavix alf and aspirin for lifetime to help prevent clots forming inside of your stent. - keep nitroglycerin with you at all times, if you have chest pain, can take 1 tablet under your tongue every 5 minutes up to 3 tablets. If your pain does not resolve you need to call [phone]. Return to usual actvities: 1 week, as tolerated. 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 Driving: No driving for 48 hours after catheterization. Follow up Appointments: Primary care provider: Cardiology: Librado Alvarado MD [phone] Follow up as planned or as needed. Dr. Benedicto Oconnor Call to confirm appointment Dr Mariama Bravo, [facility] Follow-up in 6 weeks documented in this [...] Discharge Day Note Patient Name: Burton Mcnair Chelsey Service: interventional cardiology Responsible Attending: Mariama Bravo [...] daily lifelong Clopidogrel/prasugrel clopidogrel 75 mg daily alf Geovanni inhibitor/or ARB continue lisinopril Beta Yecenia [...] with cardiology in 3-4 weeks: Dr. Benedicto cOonnor. Will also plan for f/u in about [address] Bravo. Tahmina Leone MD Aleshia Pratt RN - 03/10/2017 1:15 PM EDT 1220Report taken from analytical lab technician Pt arrived at [address] [...] to an outpatient cardiac rehabilitation program at [facility] was discussed. He was referred to [...] Baez MD [facility] ANESTHESIOLOGY [place], [place] [address] (Wo rk) 12/15/2022 Office Visit Cardiology Damián Hart MD [facility] [place], [place] [address] (Wo rk) 03/25/2050 Hospital Encounter Surgery Citlalli Richardson MD Vocal cord paralysis [facility] OTOLARYNGOLOGY [place], [place] [address] (Wo rk) Scheduled Referrals Name [...] (WITH DIFF) Routine 03/11/2017 4:00 AM EDT ARTIFICIAL PLASTIC EYE MAKER 03/11/2017 12:00 Results for this SCAN AM [...] POC Glucose 260 (H) 65 - 199 [facility] mg/dL LABORATORY Comment: Supplemental ranges: <140 mg/dL before meals <180 mg/dL all other times of the day Specimen Anatomical Collection Method Collection Time Receive d Time (Source) Location / / Volume Laterality Blood specimen 03/11/2017 10:16 7 (specimen) AM EDT 10:16 AM EDT Mariama Bravo MD POINT OF CARE TEST ORDERABLE S Performing Organization Address City/State/ZIP [place] [address] (ABNORMAL) POCT Glucose (03/11/2017 8:12 AM EDT) P athologist Signature POC Glucose 284 (H) 65 - 199 [facility] mg/dL LABORATORY Comment: Supplemental ranges: <140 mg/dL before meals <180 mg/dL all other times of the day Specimen Anatomical Collection Method Collection Time Receive d Time (Source) Location / / Volume Laterality Blood specimen 03/11/2017 8:12 AM 017 8:12 (specimen) EDT AM EDT Mariama Bravo MD POINT OF CARE TEST ORDERABLE S Performing Organization Address City/State/[place] [address] EKG 12 Lead (03/11/2017 7:19 AM EDT) Component Value Ref Range Test Analysis Performed Pathologis t Method Time At Signature Ventricular rate 67 BPM MUSE SYSTEM Atrial Rate 67 BPM MUSE SYSTEM P-R Interval 202 ms MUSE SYSTEM QRS Duration 84 ms MUSE SYSTEM Q-T Interval 420 ms MUSE SYSTEM QTC Calculated 443 ms MUSE SYSTEM (Bezet) Calculated P Galliano 35 degrees MUSE SYSTEM Calculated R Galliano -18 degrees MUSE SYSTEM Calculated T Galliano 12 degrees MUSE SYSTEM INTERPRETATION Normal sinus [...] POC Glucose 224 (H) 65 - 199 [facility] mg/dL LABORATORY Comment: Supplemental ranges: <140 mg/dL before meals <180 mg/dL all other times of the day Specimen Anatomical Collection Method Collection Time Receive d Time (Source) Location / / Volume Laterality Blood specimen 03/11/2017 7:02 AM 017 7:02 (specimen) EDT AM EDT Mariama Bravo MD POINT OF CARE TEST ORDERABLE S Performing Organization Address City/State/ZIP [place] [address] Differential, Automated (03/11/2017 4:00 AM EDT) P athologist Signature Neutrophils % 67.3 % [facility] LABORATORY Neutr Abs (ANC) 3.48 1.70 - [facility] 6.10 [facility] x10(3)/[facility] LABORATORY Lymphocytes % 20.9 % [facility] LABORATORY Lymphocytes Abs 1.1 0.9 - 3.2 [facility] x10(3)/[facility] LABORATORY Monocytes % 9.5 % [facility] LABORATORY Monocyte Abs 0.5 0.3 - 0.9 [facility] x10(3)/[facility] LABORATORY Eosinophils % 1.5 % [facility] LABORATORY Eosinophils Abs 0.1 0.0 - 0.4 [facility] x10(3)/[facility] LABORATORY Basophils % 0.6 % [facility] LABORATORY Basophils Abs 0.0 0.0 - 0.1 [facility] x10(3)/[facility] LABORATORY Immature Gran % 0.20 % [facility] LABORATORY Comment: Immature granulocytes(IG's)percentage an d absolute count will include metamyelocytes, myelocytes, and promyelo cytes. Blood smears from CBCs yielding IG's will be scanned manually for concor dance. If this scan disagrees with the automated IG or if promyelocytes are not ed, a manual differential will be performed. Nikole Gran Abs 0.01 0.00 - 0.04 x10(3)/[facility] LABORATORY Specimen Anatomical Collection Method Collection Time Receive d Time (Source) Location / / Volume Laterality Blood specimen 03/11/2017 4:00 AM 017 4:05 (specimen) EDT AM EDT Resulting Agency Comment Spec In Lab Mariama Bravo MD HEMATOLOGY ORDERABLES Performing Organization Address City/State/ZIP [place] [address] (ABNORMAL) Hemogram (03/11/2017 4:00 AM EDT) Analysis Performed At Patho logist Time Signature WBC 5.2 4.0 - 9.5 [facility] x10(3)/[facility] LABORATORY RBC 4.59 4.58 - [facility] 5.54 [facility] x10(6)/[facility] LABORATORY Hemoglobin 14.2 13.7 - [facility] 16.5 gm/dL LABORATORY Hematocrit 40.2 (L) 40.5 - [facility] 48.5 % LABORATORY MCV 87.6 82.9 - [facility] 93.1 [facility] LABORATORY MCH 30.9 27.5 - [facility] 32.1 pg LABORATORY MCHC 35.3 32.0 - [facility] 35.7 gm/dL LABORATORY Platelets 122 (L) 145 - 357 [facility] x10(3)/[facility] LABORATORY RDWSD 37.5 36.0 - [facility] 45.0 [facility] LABORATORY RDWCV 11.7 11.4 - [facility] 13.8 % LABORATORY MPV 9.3 7.6 - 12.9 [facility] LABORATORY nRBC % Auto 0.0 % [facility] LABORATORY nRBC Abs Auto 0.000 0.000 - [facility] 0.000 [facility] x10(3)/[facility] LABORATORY Specimen Anatomical Collection Method Collection Time Receive d Time (Source) Location / / Volume Laterality Blood specimen 03/11/2017 4:00 AM 017 4:05 (specimen) EDT AM EDT Resulting Agency Comment Spec In Lab Mariama Bravo MD HEMATOLOGY ORDERABLES Performing Organization Address City/State/ZIP [place] [address] (ABNORMAL) BMP w/fasting Glucose (03/11/2017 4:00 AM EDT) P athologist Signature Glucose 196 (H) 65 - 99 [facility] Fasting mg/dL LABORATORY Comment: ?Fasting* Glucose Interpretive C riteria [...] of Diabetes Mellitus, Position Statement from the [place] Diabetes Association. ??Diabete s Care, Volume 33, Supplement 1, Nov 2009 BUN 12 10 - 20 mg/dL [facility] LABORATORY Creatinine 0.65 (L) 0.80 - 1.50 mg/dL [facility] LABORATORY Comment: Please note that the pediatric reference intervals supplied above were not validated at [facility]. Results from pediatri c patients should be interpreted in conjunction to the patient's age, height and muscle mass. Sodium 138 135 - 145 mmol/L [facility] LABORATORY Potassium 4.0 3.5 - 5.0 mmol/L [facility] LABORATORY Comment: Please note: ??Patients with WBC >100,00 0 may have falsely elevated Potassium levels. ??For accurate Potassium quantif ication in these patients send serum separator tube (gold top) for subsequent determinations. ??Contact the Clinical Chemistry Laboratory if there are any qu estions. Chloride 99 98 - 107 mmol/L [facility] LABORATORY CO2 26 22 - 31 mmol/L [facility] LABORATORY Anion Gap 13 5 - 15 mmol/L [facility] LABORATORY Calcium 9.0 8.5 - 10.5 mg/dL [facility] LABORATORY Estimated GFR >60 >=60 [facility] LABORATORY Comment: This estimated GFR [...] the following links into your internet browser. [email or web address] [email or web address] [email or web address] Extraction/DHMCnkf Specimen Anatomical Collection Method Collection Time Receive d Time (Source) Location / / Volume Laterality Blood specimen 03/11/2017 4:00 AM 017 4:05 (specimen) EDT AM EDT Resulting Agency Comment Spec In Lab Mariama Bravo MD CHEMISTRY ORDERABLES Performing Organization Address City/State/ZIP [place] [address] Cardiac Enzymes (03/11/2017 4:00 AM EDT) P athologist Signature Troponin-T <0.03 <=0.03 [facility] ng/mL LABORATORY Comment: 0.03 ng/mL: Represents the 99th [...] consensus document of the Joint Society of Cardiology/[place] College o f Cardiology Committee for the redefinition of myocardial infarction. ? ?Journal of the [place] College of Cardiology 2000; 36: 959-969] CK, Total 111 0 - 200 unit/L [facility] LABORATORY Specimen Anatomical Collection Method Collection Time Receive d Time (Source) Location / / Volume Laterality Blood specimen 03/11/2017 4:00 AM 017 4:05 (specimen) EDT AM EDT Resulting Agency Comment Spec In Lab Mariama Bravo MD CHEMISTRY ORDERABLES Performing Organization Address City/State/[place] [address] SCAN DOC: ARTIFICIAL PLASTIC EYE MAKER (03/11/2017 12:00 AM EDT) Anatomical Region Laterality Modality Other Narrative 03/11/2017 12:00 AM EDT This result has an attachment that is no t available. Ordered by an unspecified provider. Scanning Provider MEDIA MGR SCAN EXT ORDR/RSLT POCT Glucose (03/10/2017 8:24 PM EDT) athologist Signature POC Glucose 182 65 - 199 [facility] mg/dL LABORATORY Comment: Supplemental ranges: <140 mg/dL before meals <180 mg/dL all other times of the day Specimen Anatomical Collection Method Collection Time Receive d Time (Source) Location / / Volume Laterality Blood specimen 03/10/2017 8:24 PM 017 8:24 (specimen) EDT PM EDT Mariama Bravo MD POINT OF CARE TEST ORDERABLE S Performing Organization Address City/State/[place] [address] (ABNORMAL) POCT Glucose (03/10/2017 6:11 PM EDT) athologist Signature POC Glucose 249 (H) 65 - 199 [facility] mg/dL LABORATORY Comment: Supplemental ranges: <140 mg/dL before meals <180 mg/dL all other times of the day Specimen Anatomical Collection Method Collection Time Receive d Time (Source) Location / / Volume Laterality Blood specimen 03/10/2017 6:11 PM 017 6:11 (specimen) EDT PM EDT Mariama Bravo MD POINT OF CARE TEST ORDERABLE S Performing Organization Address City/State/[place] [address] (ABNORMAL) POCT Glucose (03/10/2017 3:50 PM EDT) athologist Signature POC Glucose 250 (H) 65 - 199 [facility] mg/dL LABORATORY Comment: Supplemental ranges: <140 mg/dL before meals <180 mg/dL all other times of the day Specimen Anatomical Collection Method Collection Time Receive d Time (Source) Location / / Volume Laterality Blood specimen 03/10/2017 3:50 PM 017 3:50 (specimen) EDT PM EDT Mariama Bravo MD POINT OF CARE TEST ORDERABLE S Performing Organization Address City/[facility]/ZIP Code Phon e Number [address] POCT Glucose (03/10/2017 11:52 AM EDT) P athologist Signature POC Glucose 196 65 - 199 [facility] mg/dL LABORATORY Comment: Supplemental ranges: <140 mg/dL before meals <180 mg/dL all other times of the day Specimen Anatomical Collection Method Collection Time Receive d Time (Source) Location / / Volume Laterality Blood specimen 03/10/2017 11:52 7 (specimen) AM EDT 11:52 AM EDT Mariama Bravo MD POINT OF CARE TEST ORDERABLE S Performing Organization Address City/State/[place] [address] EKG 12 Lead (03/10/2017 11:45 AM EDT) Component Value Ref Range Test Analysis Performed Pathologis t Method Time At Signature Ventricular rate 66 BPM MUSE SYSTEM Atrial Rate 66 BPM MUSE SYSTEM P-R Interval 210 ms MUSE SYSTEM QRS Duration 96 ms MUSE SYSTEM Q-T Interval 424 ms MUSE SYSTEM QTC Calculated 444 ms MUSE SYSTEM (Bezet) Calculated P Galliano 44 degrees MUSE SYSTEM Calculated R Galliano -12 degrees MUSE SYSTEM Calculated T Galliano -8 degrees MUSE SYSTEM INTERPRETATION Sinus rhythm with 1st degree A-V block MUSE SYSTEM Moderate voltage criteria for LVH, may be normal variant Inferior infarct (cited on or before 25-SEP-2016) When compared with ECG of 27-SEP-2016 07:27, No significant change was found Confirmed by MD Gogo, Junior ([id number]) on 03/10/2017 4:5 7:05 PM Specimen Anatomical Collection Method Collection Time Receive d Time (Source) Location / / Volume Laterality 03/10/2017 11:45 03/10/2017 4:57 AM EDT PM EDT Mariama Bravo MD ECG ORDERABLES Performing Organization Address City/State/ZIP Code Phon e Number MUSE SYSTEM (ABNORMAL) BMP w/fasting Glucose (03/10/2017 8:43 AM EDT) athologist Signature Glucose 223 (H) 65 - 99 [facility] Fasting mg/dL LABORATORY Comment: ?Fasting* Glucose Interpretive C riteria [...] of Diabetes Mellitus, Position Statement from the [place] Diabetes Association. ??Diabete s Care, Volume 33, Supplement 1, Nov 2009 BUN 11 10 - 20 mg/dL [facility] LABORATORY Creatinine 0.75 (L) 0.80 - 1.50 mg/dL [facility] LABORATORY Comment: Please note that the pediatric reference intervals supplied above were not validated at [facility]. Results from pediatri c patients should be interpreted in conjunction to the patient's age, height and muscle mass. Sodium 139 135 - 145 mmol/L [facility] LABORATORY Potassium 4.4 3.5 - 5.0 mmol/L [facility] LABORATORY Comment: Please note: ??Patients with WBC >100,00 0 may have falsely elevated Potassium levels. ??For accurate Potassium quantif ication in these patients send serum separator tube (gold top) for subsequent determinations. ??Contact the Clinical Chemistry Laboratory if there are any qu estions. Chloride 96 (L) 98 - 107 mmol/L [facility] LABORATORY CO2 28 22 - 31 mmol/L [facility] LABORATORY Anion Gap 15 5 - 15 mmol/L [facility] LABORATORY Calcium 9.5 8.5 - 10.5 mg/dL [facility] LABORATORY Estimated GFR >60 >=60 [facility] LABORATORY Comment: This estimated GFR [...] the following links into your internet browser. http://Light [email or web address] http://Light Extraction/DHMCnkf Specimen Anatomical Collection Method Collection Time Receive d Time (Source) Location / / Volume Laterality Blood specimen 03/10/2017 8:43 AM 017 9:12 (specimen) EDT AM EDT Resulting Agency Comment Spec In Lab Benedicto Oconnor Jr., MD CHEMISTRY ORDERABLES Performing Organization Address City/State/ZIP Code Phon e Number [place] [phone] documented in this encounter Visit Diagnoses Diagnosis ASCVD (arteriosclerotic cardiovascular d isease) Unspecified cardiovascular disease S/P coronary angioplasty Postsurgical percutaneous transluminal c oronary angioplasty status CAD (coronary artery disease) Coronary atherosclerosis of unspecified type of vessel, cantwell or graft Vocal cord paralysis Paralysis of vocal cords or larynx, unsp ecified documented in this encounter Admitting Diagnoses Diagnosis CAD (coronary artery disease) Coronary atherosclerosis of unspecified type of vessel, cantwell or graft documented in this encounter Administered [...] 10 mg 0816 (Given - Provider: Aleshia Pratt, ESTEFANIA) 10 mg, Oral, DAILY, First dose on Thu at 0900, Until Discontinued, Routine amLODIPine (NORVASC) tablet 5 mg (COMPLETED) 1550 (Given - Provider: Aleshia Pratt, ESTEFANIA) 5 mg, Oral, ONCE, 1 dose, Thu03/10/17 at 1400, Routine aspirin EC tablet 81 mg 0816 (Gi casa - Provider: Aleshia Pratt, ESTEFANIA) 81 mg, Oral, DAILY, First dose on Thu at 0900, Until Discontinued, Routine atorvastatin (LIPITOR) tablet 80 mg 1616 (Given - Provider: Aleshia Pratt RN) 80 mg, Oral, EVERY EVENING, First dose o n Thu03/10/17 at 1700, Until Discontinued, Routine clopidogrel (PLAVIX) tablet 75 mg 0818 (Given - Provider: Aleshia Pratt, ESTEFANIA) 75 mg, Oral, DAILY, First dose on Thu at 0900, Until Discontinued, Routine diaZEPam (VALIUM) tablet 5 mg (COMPLETED) 1015 (Given - Provider: Destinee Wong, ESTEFANIA) 5 mg, Oral, ONCE, 1 dose, Thu03/10/17 at 1015, Cath (D ay of Procedure), Routine diphenhydrAMINE (BENADRYL) capsule 25 mg (COMPLETED) 1015 (Given - Provider: Destinee Wong, ESTEFANIA) 25 mg, Oral, ONCE, 1 dose, Thu03/10/17 a t 1015, Cath (Day of Procedure), Routine insulin lispro (humaLOG) VIAL injection 1-4 Units(Linked José Miguel up 1) 1617 (Given - Provider: Aleshia Pratt RN)1819 (Given - Provider: Aleshia Pratt, ESTEFANIA) 0809 (Given - Provider: Aleshia Pratt RN)1017 (Given - Provider: Aleshia Pratt, ESTEFANIA) 1-4 [...] schedule., Routine lisinopril (PRINIVIL;ZESTRIL) tablet 40 mg 08 (Given - Provider: Aleshia Pratt RN) 40 mg, Oral, DAILY, First dose on Thu at 0900, Until Discontinued, Routine meTOPROLOL succinate (TOPROL-XL) XL tablet 75 mg 0819 (Given - Provider: Aleshia Pratt, ESTEFANIA) 75 mg, Oral, DAILY, First dose on Thu at 0900, Until Discontinued, DO NOT CRUSH OR OPEN, Routine Continuous Medication Order 03/09/2017 03/10/2017 03/11/2017 sodium chloride 0.9% infusion () 1200 (New Bag - Provider: Aleshia Pratt, RN) 100 mL/hr, at 100 mL/hr, Intravenous, [...] Blake RN)1057 (Given - Provider: Shala Blake RN)1111 (Given - Provider: Shala Blake RN) ONCE [...]
Routine documented in this encounter Care Teams Gas Processing Plant Operator Relationship Specialty Start Date End Date Librado Alvarado MD PCP - General 10/08/10 01/18/18 580 [facility] [address] [place] [address] documented as of this encounter
--- OUTSIDE RECORDS SUMMARY | 2022-10-07 08:55 | XMS_ITS | Encounter Summary ---
:1955 Author Organization [facility] [place] [address] Care Team Providers Name Role Phone Librado Alvarado MD Primary Care Provider Reason for Visit Reason Comments Follow-up urgent Coronary Artery Disease Encounter Details Date Type Department Care Team Description 05/25/2017 Office Visit Cardiology at [facility] Chest pain, unspecified type; Sami Hanks MD ASCVD (arteriosclerotic cardiovascular d isease) [address] [facility] [facility] [address] [place] [address] [phone] Social History Tobacco Use Types Packs/Day Years [...] Baez MD [facility] ANESTHESIOLOGY [place], [place] [address] (Wo rk) 12/15/2022 Office Visit Cardiology Damián Hart MD [facility] [address] [place], [place] [address] (Wo rk) 03/25/2050 Hospital Encounter Surgery Citlalli Richardson MD Vocal cord paralysis [facility] OTOLARYNGOLOGY [place], [place] [address] (Wo rk) documented as of [...] Laterality Volume Narrative 06/02/2017 6:53 PM EDT ?[facility] ? Cardiac Cathete rization/Intervention Report ? Patient Name: Ostrander Jr, Burton Long. ? Procedure Date: 06/02/2017 ? A #: [id number] ? Primary Physician: Rigoberto Wyatt ? Case #: [id number] ? File Name: [id number] ? Catheterization Order Number: [id number] ? [facility] ? Final Report [place], [place] ? Patient Name: ? Burton D. Gar field Jr ? ID#: ?[id number] ? : ?1955 ? Procedure Date: ? June 02, 2017 ?Case #: ? [id number] ? Room: ? 5 ? Case Physician: ? Car Andrade ? Start: ?13:41 ?Fellow: ? Ali Yassen, M.D. ? Admission: ??06/02/2017 ? Referring ? [...] with: uns table angina (w/i 60 days). [place] ?Cardiovascular Society angina c lass was II. [...] segment of the left ? anterior descending jonnathna ry (LAD) and it was calcified and [...] re latively spared. ?The attending physician was presen t for the entire procedure. ?Dr. Rigoberto [...] Procedure Note Rigoberto Wyatt MD - 06/02/2017 [facility] Cardiac Catheterization/Intervention Re port Patient Name: Burton Mcnair Jr Procedure Date: 06/02/2017 A #: [id number] Primary Physician: Rigoberto Wyatt Case #: [id number] File Name: [id number] Catheterization Order Number: [id number] [facility] Final Report [place], [place] Patient Name: Burton Mcnair Jr ID# : [id number] : 1955 Procedure Date: June 02, 2017 [...] initiation of this procedure, the patient was designa ugo as ASA Class III. Patient Status at Catheterization: The patient presented with: unstable an ezekiel (w/i 60 days). [place] Cardiovascular Society angina class was II. This [...] ecified documented in this encounter Care Teams Modular Set Crew Member Relationship Specialty Start Date End Date Librado Alvarado MD PCP - General 10/08/10 01/18/18 580 [facility] 11 [place] [address] documented as of this encounter
--- OUTSIDE RECORDS SUMMARY | 2022-10-07 08:55 | XMS_ITS | Encounter Summary ---
:1955 Author Organization [facility] [place] [address] Care Team Providers Name Role Phone Librado Alvarado MD Primary Care Provider Encounter Details Date Type Department Care Team Description 06/17/2017 Telephone Cardiology at [facility] Jr., MD [address] [place] [address] [place] [address] (Wo rk) Social History Tobacco [...] him headaches. Please call him back at [phone] documented in this encounter Plan of Treatment Upcoming Encounters Date Type Specialty Care Team Description 03/25/2022 Anesthesia Event Surgery Catrachita Baez MD [facility] ANESTHESIOLOGY [place], [place] [address] (Wo rk) 12/15/2022 Office Visit Cardiology Damián Hart MD [facility] [place], [place] [address] (Wo rk) 03/25/2050 Hospital Encounter Surgery Citlalli Richardson MD Vocal cord paralysis [facility] OTOLARYNGOLOGY [place], [place] [address] (Wo rk) documented as of this encounter Visit Diagnoses Not on filedocumented in this encounter Care Teams Rug Clipper Relationship Specialty Start Date End Date Librado Alvarado MD PCP - General 10/08/10 01/18/18 580 [facility] 11 [place] [address] documented as of this encounter
--- OUTSIDE RECORDS SUMMARY | 2022-10-07 08:55 | XMS_ITS | Encounter Summary ---
:1955 Author Organization [facility] [place] [address] Care Team Providers Name Role Phone Librado Alvarado MD Primary Care Provider Reason for Visit Reason Onset Date Comments Medication Refill 11/11/2017 Encounter Details Date Type Department Care Team Description 11/11/2017 Refill Cardiology at [facility] Benedicto Oconnor Jr., MD Medication Refill [address] [facility] [address] [place] [address] A [phone] [place], [place] [address] (Wo rk) Social History [...] Baez MD [facility] ANESTHESIOLOGY [place], [place] 0[address] (Wo rk) 12/15/2022 Office Visit Cardiology Damián Hart MD [facility] [address] [place], [place] [address] (Wo rk) 03/25/2050 Hospital Encounter Surgery Citlalli Richardson MD Vocal cord paralysis [facility] OTOLARYNGOLOGY [place], [place] [address] (Wo rk) documented as of this encounter Visit Diagnoses Not on filedocumented in this encounter Care Teams Management Expert Relationship Specialty Start Date End Date Librado Alvarado MD PCP - General 10/08/10 01/18/18 [address] [facility] 11 [place] [address] documented as of this encounter
--- OUTSIDE RECORDS SUMMARY | 2022-10-07 08:55 | XMS_ITS | Encounter Summary ---
:1955 Author Organization [place] [address] Care Team Providers Name Role Phone Librado Alvarado MD Primary Care Provider Reason for Visit Reason Onset Date Comments Other 06/05/2017 please call patient Encounter Details Date Type Department Care Team Description 06/05/2017 Telephone Cardiology at [facility] Rigoberto Wyatt MD Other (please call [facility] ron mendoza) [place] [address] CARDIOLOGY DEPT. [phone] [place] [address] (Wo rk) Social History Tobacco Use Types Packs/Day Years Used Date Smoking Tobacco: Former Cigarettes Comments: quit at age 17 Alcohol Use Standard Drinks/Week Comments Yes 2 (1 standard drink = 0.6 oz pure alcoho l) beer on weekends Sex Assigned at Date Recorded Not on file documented as of this encounter Miscellaneous Notes Telephone Encounter - Vick Pate RN - 06/12/2017 2:03 PM EDT Called patient back and left message on confirmed voicemail to call Interventional Team RN to discuss. Telephone Encounter - Mai Galan - 06/05/2017 11:22 AM EDT Patient called as he had a cath the other day and is now having pretty bad headaches. Please call him at [phone]. Thank you documented in this encounter Plan of Treatment Upcoming Encounters Date Type Specialty Care Team Description 03/25/2022 Anesthesia Event Surgery Catrachita Baez MD [facility] ANESTHESIOLOGY [place], [place] 0[address] (Wo rk) 12/15/2022 Office Visit Cardiology Damián Hart MD [facility] [place], [place] 0[address] (Wo rk) 03/25/2050 Hospital Encounter Surgery Citlalli Richardson MD Vocal cord paralysis [facility] OTOLARYNGOLOGY [place], [place] [address] (Wo rk) documented as of this encounter Visit Diagnoses Not on filedocumented in this encounter Care Teams Psych Nurse Relationship Specialty Start Date End Date Librado Alvarado MD PCP - General 10/08/10 01/18/[address] [facility] 11 [place] [address] documented as of this encounter
--- OUTSIDE RECORDS SUMMARY | 2022-10-07 08:55 | XMS_ITS | Encounter Summary ---
:1955 Author Organization [facility] [place] [address] Care Team Providers Name Role Phone Librado Alvarado MD Primary Care Provider Reason for Visit Reason Comments Follow-up f/u after cath, no intervent ions, no SOB, no CP Encounter Details Date Type Department Care Team Description 07/09/2017 Office Visit Cardiology at [facility] ASCVD (mitchel Gallardo Jr., MD cardiovascular disease) [address] [facility] [place] [address] [phone] Social History Tobacco Use Types Packs/Day Years [...] MD [facility] ANESTHESIOLOGY [place], [place] 0[address] ([facility]) 12/15/2022 Office Visit Cardiology Damián Hart MD [facility] [place], [place] 0[address] ([facility]) 03/25/2050 Hospital Encounter Surgery Citlalli Richardson MD Vocal cord paralysis [facility] OTOLARYNGOLOGY [place], [place] [address] ([facility]) documented as of this encounter Visit Diagnoses Diagnosis ASCVD (arteriosclerotic cardiovascular d isease) Unspecified cardiovascular disease Vocal cord paralysis Paralysis of vocal cords or larynx, unsp ecified documented in this encounter Care Teams Mechanical Product Engineer Relationship Specialty Start Date End Date Librado Alvarado MD PCP - General 10/08/10 01/18/[address] [facility] 11 [place] [id number] documented as of this encounter
--- OUTSIDE RECORDS SUMMARY | 2022-10-07 08:55 | XMS_ITS | Encounter Summary ---
:1955 Author Organization [facility] [place] [address] Care Team Providers Name Role Phone Librado Alvarado MD Primary Care Provider Reason for Visit Reason Comments Follow-up F/U after Cath on 03/10/17 Encounter Details Date Type Department Care Team Description 04/02/2017 Office Visit Cardiology at [facility] ASCVD (arter iosclerotic cardiovascular disease); Sami Hanks MD Essential hypertension; [address] [facility] [facility] Hype rlipidemia, unspecified hyperlipidemia type; Cal A RD CAL A Type 2 diabetes mellitus with other circ ulatory complication, without long[place] [address] [phone] Social History Tobacco Use Types Packs/Day Years [...] Baez MD [facility] ANESTHESIOLOGY [place], [place] [address] ( jaya) 12/15/2022 Office Visit Cardiology Damián Hart MD [facility] [place], [place] [address] ([place]) 03/25/2050 Hospital Encounter Surgery Citlalli Richardson MD Vocal cord paralysis [facility] OTOLARYNGOLOGY [place], [place] [address] ([place]) documented as of this encounter Visit Diagnoses Diagnosis ASCVD (arteriosclerotic cardiovascular d isease) Unspecified cardiovascular disease Essential hypertension Unspecified essential hypertension Hyperlipidemia, unspecified hyperlipidem ia type Type 2 diabetes mellitus with other circ ulatory complication, without long-term current use of insulin Vocal cord paralysis Paralysis of vocal cords or larynx, unsp ecified documented in this encounter Care Teams Concrete Laborer Relationship Specialty Start Date End Date Librado Alvarado MD PCP - General 10/08/10 01/18/18 580 [facility] 11 [place] [address] documented as of this encounter
--- OUTSIDE RECORDS SUMMARY | 2022-10-07 08:55 | XMS_ITS | Encounter Summary ---
:1955 Author Organization [facility] [address] Care Team Providers Name Role Phone Librado Alvarado MD Primary Care Provider Reason for Referral Diagnostic Test (Routine) - Specialty Diagnoses / Procedures Referred By Contact Refer red To Contact Diagnoses Chest pain, unspecified type ASCVD (arteriosclerotic cardiovascular disease) [facility] Jr., MD Procedures [place] Myocardial Perfusion Stress Rest 580 [place] [address] Referral ID Status Reason Start Date Expiration Visits Visits Date Requested Authorized [id number] Specialty 02/24/2017 08/23/2017 1 1 Service Requested Encounter Details Date Type Department Care Team Description 02/24/[address] [facility] Benedicto Oconnor Jr., MD [address] [facility] 580 [place] [address] [place], [place] [address] (Wo rk) Social History Tobacco Use Types Packs/Day Years Used Date Smoking Tobacco: Former Cigarettes Comments: quit at age 17 Sex Assigned at Date Recorded Not on file documented as of this encounter Miscellaneous Notes Telephone Encounter - Courtney Jordan - 02/24/2017 2:17 PM EDT Mibi scheduled 03/02/17 @ 8:30 [place] Pt informed Telephone Encounter - Kenroy Valdes [...] Event Surgery Catrachita Baez MD [facility] ANESTHESIOLOGY [place], [place] [address] (Wo rk) 12/15/2022 Office Visit Cardiology Damián Hart MD [facility] [place], [place] [address] (Wo rk) 03/25/2050 Hospital Encounter Surgery Citlalli Richardson MD Vocal cord paralysis [facility] OTOLARYNGOLOGY [place], [place] 0[address] (Wo rk) documented as of this encounter Results [place] Myocardial Perfusion Stress Rest (03/03/2017) Anatomical Region Laterality Modality Other Narrative 03/03/2017 MIBI Exercise Stress Test- Final Report ?? Burton Mcnair Jr. : 1955 [facility], [address] [place] [address], [place] [address] Primary Physician: ??Librado Alvarado MD ? ?Indication: [...] ecified documented in this encounter Care Teams System Analyst Relationship Specialty Start Date End Date Librado Alvarado MD PCP - General 10/08/10 01/18/18 [address] [facility] 11 [place] [address] documented as of this encounter
--- OUTSIDE RECORDS SUMMARY | 2022-10-07 08:55 | XMS_ITS | Encounter Summary ---
:1955 Author Organization [facility] [place] [address] Care Team Providers Name Role Phone Librado Alvarado MD Primary Care Provider Encounter Details Date Type Department Care Team Description 09/01/2017 Telephone Cardiology at [facility] Ynes Russell RN [address] [place] [place] [address] Social History Tobacco Use [...] for 1-2 days with food but not penitentiary Telephone Encounter - Ynes Russell, RN - 09/01/2017 8:59 AM EDT Avelina [...] Baez MD [facility] ANESTHESIOLOGY [place], [place] [address] (Wo rk) 12/15/2022 Office Visit Cardiology Damián Hart MD [facility] [place], [place] [address] (Wo rk) 03/25/2050 Hospital Encounter Surgery Citlalli Richardson MD Vocal cord paralysis [facility] OTOLARYNGOLOGY [place], [place] [address] (Wo rk) documented as of this encounter Visit Diagnoses Not on filedocumented in this encounter Care Teams Customer Service Cashier Relationship Specialty Start Date End Date Librado Alvarado MD PCP - General 10/08/10 01/18/18 580 [facility] 11 [place] [address] documented as of this encounter
--- OUTSIDE RECORDS SUMMARY | 2022-10-07 08:55 | XMS_ITS | Encounter Summary ---
:1955 Author Organization [facility] [place] [address] Care Team Providers Name Role Phone Librado Alvarado MD Primary Care Provider Encounter Details Date Type Department Care Team Description 11/11/2017 Telephone [facility] at [facility] Benedict[facility] Oconnor Jr., MD [address] A [address] [facility] [place] [address] [place], [place] [id number] (Wo rk) Social History Tobacco Use Types [...] pm Pt informed Telephone Encounter - Ynes Russell RN - 11/11/2017 10:15 AM EST He [...] his throat. Please call him back at [phone]. documented in this encounter Plan of Treatment Upcoming Encounters Date Type Specialty Care Team Description 03/25/2022 Anesthesia Event Surgery Catrachita Baez MD [facility] ANESTHESIOLOGY [place], [place] [address] (Wo rk) 12/15/2022 Office Visit Cardiology Damián Hart MD [facility] [place], [place] 0[address] (Wo rk) 03/25/2050 Hospital Encounter Surgery Citlalli Richardson MD Vocal cord paralysis [facility] OTOLARYNGOLOGY [place], [place] 0375 (Wo rk) documented as of this encounter Visit Diagnoses Not on filedocumented in this encounter Care Teams Cloth Layer Relationship Specialty Start Date End Date Librado Alvarado MD PCP - General 10/08/10 01/18/18 580 [facility] 11 [place] [address] documented as of this encounter
--- OUTSIDE RECORDS SUMMARY | 2022-10-07 08:55 | XMS_ITS | Encounter Summary ---
:1955 Author Organization [place] [address] Care Team Providers Name Role Phone Librado Alvarado MD Primary Care Provider Encounter Details Date Type Department Care Team Description 11/14/2016 Office Visit Cardiology at [facility] Mariama Bravo MD Other hyperlipidemia; [facility] ASCVD (ar teriosclerotic cardiovascular disease); [facility] [address] Type 2 diabetes mellitus without complic ation, without long-term current use of insulin; [place] [address] Essential hypertension [id number] [phone] Social History Tobacco Use Types Packs/Day Years [...] Visit: F/U Referring Provider: Librado Alvarado MD [address] [address] ?? HPI: Burton Mcnair Jr. is a 61 y.o. male who I met during his recent PCI. Baljinder had presented with symptoms of angina and a positive stress test. He underwent atherectomy guided PCI to the RCA withgood result. He was discharge don DORINDA and Dany. Overall, Baljinder reports that he feels OK. He has noticed an increase in his exercise tolerance and is walking 2 miles without limitation. He has been endorsing symptoms of not feeling well at times. This led to a ED visit over Xmas. He has what felt like left sided chest heaviness which was bothersome. He was monitored in the ED at [place]. Biomarkers and ECG were negative. Since then [...] F/U in 6 months Mariama Bravo MD [facility] Interventional Cardiology Pager [phone] ? documented in this encounter Plan of Treatment Upcoming Encounters Date Type Specialty Care Team Description 03/25/2022 Anesthesia Event Surgery Catrachita Baez MD [facility] ANESTHESIOLOGY [place], [place] [address] (Wo rk) 12/15/2022 Office Visit Cardiology Damián Hart MD [facility] [address] [place] [address] ([place]) 03/25/2050 Hospital Encounter Surgery Citlalli Richardson MD Vocal cord paralysis [facility] OTOLARYNGOLOGY [place], [place] [address] ([place]) documented as of this encounter Visit Diagnoses Diagnosis Other hyperlipidemia ASCVD (arteriosclerotic cardiovascular d isease) Unspecified cardiovascular disease Type 2 diabetes mellitus without complic ation, without long-term current use of insulin Essential hypertension Unspecified essential hypertension Vocal cord paralysis Paralysis of vocal cords or larynx, unsp ecified documented in this encounter Care Teams Office Machine Embossograph Operator Relationship Specialty Start Date End Date Librado Alvarado MD PCP - General 10/08/10 01/18/[address] [address] documented as of this encounter
--- OUTSIDE RECORDS SUMMARY | 2022-10-07 08:55 | XMS_ITS | Encounter Summary ---
:1955 Author Organization [facility] [place] [address] Care Team Providers Name Role Phone Librado [...] Type Department Care Team Description 03/10/2017 Surgery Drop Machine Operator Alejandro Laws MD CARDIAC CATHETERIZATION [facility] [place] [address] [place] [address] [phone] Social History Tobacco Use Types Packs/Day Years [...] Mcnair Jr. Patient Age: 62 y.o. Language: Latvian Race: White Ethnicity: Not nor Admit date: 03/10/2017 Discharge date and time: 03/11/2017 Attending Physician: Mariama Bravo MD Discharge Physician: Mariama Bravo MD Follow-up Recommendations for Providers: - dual antiplatelet regimen as follows: - aspirin 81 mg daily lifelong - clopidogrel 75 mg daily detention as tolerated - Of note, he had [...] was Elective. The NCDR indication for the procedure was [...] appointments: -During 8am-5pm Thursday through Thursday call [phone] to speak with a nurse in the cardiology clinic -All other times call [phone] and ask to speak to the electrical fitter application security specialist. MEDICATIONS - restart your metformin on , 03/12/2017 - amlodipine has been increased to 10 mg daily - you need to be on daily Plavix detention and aspirin for lifetime to help prevent [...] Primary care provider: Cardiology: Librado Alvarado MD [phone] Follow up as planned or as needed. Dr. Benedicto Oconnor Call to confirm appointment Dr Mariama Bravo, [facility] Follow-up in 6 weeks General Instructions None Future Appointments and Orders Future Orders Complete By Expires Referral to Cardiac Rehab [[id number] Custom] As directed Process Instructions: If no progress note charted, please enter Clinical details in comments. Scheduling Instructions: Questions: My question or request is: s/p angioplasty. Cardiac rehab at [facility] Discharge References/Attachments None documented in this encounter Discharge Instructions Patient InstructionsTahmina Leone MD - 03/10/2017 2:52 PM EDT Cardiology Instructions Call your doctor if: Chest pain, dyspnea, pain or swelling in legs occurs. If you have non-emergent questions between now and the time of your follow up appointments: -During 8am-5pm Thursday through Thursday call [phone] to speak with a nurse in the cardiology clinic -All other times call [phone] and ask to speak to the electrical fitter application security specialist. MEDICATIONS - restart your metformin on , 03/12/2017 - amlodipine has been increased to 10 mg daily - you need to be on daily Plavix detention and aspirin for lifetime to help prevent [...] Primary care provider: Cardiology: Librado Alvarado MD [phone] Follow up as planned or as needed. Dr. Benedicto Oconnor Call to confirm appointment Dr Mariama Bravo, [facility] Follow-up in 6 weeks [...] documented as of this encounter Progress Notes MelAleshia tee RN - 03/11/2017 9:20 AM EDT Activity [...] daily lifelong Clopidogrel/prasugrel clopidogrel 75 mg daily detention Geovanni inhibitor/or ARB continue lisinopril Beta Yecenia [...] 03/10/2017 1:15 PM EDT 1220Report taken from labourers Pt arrived at [address] Amb[address] [...] consult - Anticipate discharge in am Tahmina Lenoe MD Tahmina Leone MD - 03/10/2017 9:35 [...] Outcome: Ongoing (Interventions Implemented as Appropriate) 03/11/17 9873 Coping/Psychosocial Plan Of Care Reviewed With patient [...] RN - 03/10/2017 2:35 PM EDT Burton Long Xu Hanks was seen today by Cardiac Rehabilitation for: [...] to an outpatient cardiac rehabilitation program at [facility] was discussed. He was referred to this [...] Baez MD [facility] ANESTHESIOLOGY [place] [address] (Wo rk) 12/15/2022 Office Visit Cardiology Damián Hart MD [facility] er Ivan MD 0375 ([facility]) 03/25/2050 Hospital Encounter Surgery Citlalli Richardson MD Vocal cord paralysis [facility] OTOLARYNGOLOGY [place], [place] [address] ([facility]) Scheduled Referrals Name Type Priority Associated Diagnoses [...] (WITH DIFF) Routine 03/11/2017 4:00 AM EDT INTERN 03/11/2017 12:00 Results for this SCAN AM [...] POC Glucose 260 (H) 65 - 199 [facility] Comment: Supplemental ranges: <140 mg/dL before meals <180 mg/dL all other times of the day Specimen Anatomical Collection Method Collection Time Receive d Time (Source) Location / / Volume Laterality Blood specimen 03/11/2017 10:16 7 (specimen) AM EDT 10:16 AM EDT Mariama Bravo MD POINT OF CARE TEST ORDERABLE S Performing Organization Address City/State/[place] [address] (ABNORMAL) POCT Glucose (03/11/2017 8:12 AM EDT) athologist Signature POC Glucose 284 (H) 65 - 199 [facility] Comment: Supplemental ranges: <140 mg/dL before meals <180 mg/dL all other times of the day Specimen Anatomical Collection Method Collection Time Receive d Time (Source) Location / / Volume Laterality Blood specimen 03/11/2017 8:12 AM 017 8:12 (specimen) EDT AM EDT Mariama Bravo MD POINT OF CARE TEST ORDERABLE S Performing Organization Address City/State/[place] [address] EKG 12 Lead (03/11/2017 7:19 AM EDT) Component Value Ref Range Test Analysis Performed Pathologis t Method Time At Signature Ventricular rate 67 BPM MUSE SYSTEM Atrial Rate 67 BPM MUSE SYSTEM P-R Interval 202 ms MUSE SYSTEM QRS Duration 84 ms MUSE SYSTEM Q-T Interval 420 ms MUSE SYSTEM QTC Calculated 443 ms MUSE SYSTEM (Bezet) Calculated P [place] 35 degrees MUSE SYSTEM Calculated R [place] -18 degrees MUSE SYSTEM Calculated T [place] 12 degrees MUSE SYSTEM INTERPRETATION Normal sinus [...] Bravo MD ECG ORDERABLES Performing Organization Address City/[facility]/ZIP Code Phon e Number MUSE SYSTEM (ABNORMAL) POCT Glucose (03/11/2017 7:02 AM EDT) athologist Signature POC Glucose 224 (H) 65 - 199 [facility] mg/dL [facility] Comment: Supplemental ranges: <140 mg/dL before meals <180 mg/dL all other times of the day Specimen Anatomical Collection Method Collection Time Receive d Time (Source) Location / / Volume Laterality Blood specimen 03/11/2017 7:02 AM 017 7:02 (specimen) EDT AM EDT Mariama Bravo MD POINT OF CARE TEST ORDERABLE S Performing Organization Address City/State/[place] [address] Differential, Automated (03/11/2017 4:00 AM EDT) athologist Signature Neutrophils % 67.3 % [facility] Neutr Abs (ANC) 3.48 1.70 - [facility] 6.10 [facility] x10(3)/[facility] LABORATORY Lymphocytes % 20.9 % [facility] Lymphocytes Abs 1.1 0.9 - 3.2 [facility] x10(3)/[facility] Monocytes % 9.5 % [facility] Monocyte Abs 0.5 0.3 - 0.9 [facility] x10(3)/[facility]ORY Eosinophils % 1.5 % [facility] Eosinophils Abs 0.1 0.0 - 0.4 [facility] x10(3)/[facility] LAB[facility]ORY Basophils % 0.6 % [facility] Basophils Abs 0.0 0.0 - 0.1 [facility] x10(3)/[facility] LAB[facility]ORY Immature Gran % 0.20 % [facility] Comment: Immature granulocytes(IG's)percentage an d absolute count will include metamyelocytes, myelocytes, and promyelo cytes. Blood smears from CBCs yielding IG's will be scanned manually for concor dance. If this scan disagrees with the automated IG or if promyelocytes are not ed, a manual differential will be performed. Nikole Gran Abs 0.01 0.00 - 0.04 x10(3)/[facility] LABORATORY Specimen Anatomical Collection Method Collection Time Receive d Time (Source) Location / / Volume Laterality Blood specimen 03/11/2017 4:00 AM 017 4:05 (specimen) EDT AM EDT Resulting Agency Comment Spec In Lab Mariama Bravo MD HEMATOLOGY ORDERABLES Performing Organization Address City/State/[place] [address] (ABNORMAL) Hemogram (03/11/2017 4:00 AM EDT) Analysis Performed At Patho logist Time Signature WBC 5.2 4.0 - 9.5 [facility] x10(3)/[facility]ATORY RBC 4.59 4.58 - [facility] 5.54 [facility] x10(6)/[facility] LABORATORY Hemoglobin 14.2 13.7 - [facility] 16.5 gm/dL [facility] Hematocrit 40.2 (L) 40.5 - [facility] 48.5 % [facility] MCV 87.6 82.9 - [facility] 93.1 fL [facility] MCH 30.9 27.5 - [facility] 32.1 pg [facility] MCHC 35.3 32.0 - [facility] 35.7 gm/dL [facility] Platelets 122 (L) 145 - 357 [facility] x10(3)/[facility] LAB[facility]ORY RDWSD 37.5 36.0 - [facility] LOY 45.0 [facility] RDWCV 11.7 11.4 - [facility] 13.8 % [facility] MPV 9.3 7.6 - 12.9 [facility] LABORATORY nRBC % Auto 0.0 % [facility] nRBC Abs Auto 0.000 0.000 - [facility] 0.000 [facility] x10(3)/[facility] LABORATORY Specimen Anatomical Collection Method Collection Time Receive d Time (Source) Location / / Volume Laterality Blood specimen 03/11/2017 4:00 AM 017 4:05 (specimen) EDT AM EDT Resulting Agency Comment Spec In Lab Mariama Bravo MD HEMATOLOGY ORDERABLES Performing Organization Address City/State/[place] [address] (ABNORMAL) BMP w/fasting Glucose (03/11/2017 4:00 AM EDT) athologist Signature Glucose 196 (H) 65 - 99 [facility] Fasting mg/dL [facility] Comment: ?Fasting* Glucose Interpretive C [...] of Diabetes Mellitus, Position Statement from the [place] [employer]. ??Diabete s Care, Volume 33, Supplement 1, Nov 2009 BUN 12 10 - 20 mg/dL [facility] Creatinine 0.65 (L) 0.80 - 1.50 mg/dL [facility] Comment: Please note that the pediatric reference intervals supplied above were not validated at [facility]. Results from pediatri c patients should be interpreted in conjunction to the patient's age, height and muscle mass. Sodium 138 135 - 145 mmol/L [facility] [...] estions. Chloride 99 98 - 107 mmol/L [facility] CO2 26 22 - 31 mmol/L [facility] Anion Gap 13 5 - 15 mmol/L [facility] Calcium 9.0 8.5 - 10.5 mg/dL [facility] Estimated GFR >60 >=60 [facility] Comment: This estimated GFR [...] the following links into your internet browser. [email or web address] [email or web address] Specimen Anatomical Collection Method Collection Time Receive d Time (Source) Location / / Volume Laterality Blood specimen 03/11/2017 4:00 AM 017 4:05 (specimen) EDT AM EDT Resulting Agency Comment Spec In Lab Mariama Bravo MD CHEMISTRY ORDERABLES Performing Organization Address City/State/[place] [address] Cardiac Enzymes (03/11/2017 4:00 AM EDT) athologist Signature Troponin-T <0.03 <=0.03 [facility] ng/mL [facility] Comment: 0.03 ng/mL: Represents the [...] consensus document of the Joint Society of Cardiology/[place] College o f [employer] Committee for the redefinition of myocardial infarction. ? ?Journal of the [place] College of [employer]iology 2000; 36: 959-969] CK, Total 111 0 - 200 unit/L [facility] Specimen Anatomical Collection Method Collection Time Receive d Time (Source) Location / / Volume Laterality Blood specimen 03/11/2017 4:00 AM 017 4:05 (specimen) EDT AM EDT Resulting Agency Comment Spec In Lab Mariama Bravo MD CHEMISTRY ORDERABLES Performing Organization Address City/State/[place] [address] SCAN DOC: INTERN (03/11/2017 12:00 AM EDT) Anatomical Region Laterality Modality Other Narrative 03/11/2017 12:00 AM EDT This result has an attachment that is no t available. Ordered by an unspecified provider. Scanning Provider MEDIA MGR SCAN EXT ORDR/RSLT POCT Glucose (03/10/2017 8:24 PM EDT) athologist Signature POC Glucose 182 65 - 199 [facility] mg/dL [facility] Comment: Supplemental ranges: <140 mg/dL before meals <180 mg/dL all other times of the day Specimen Anatomical Collection Method Collection Time Receive d Time (Source) Location / / Volume Laterality Blood specimen 03/10/2017 8:24 PM 017 8:24 (specimen) EDT PM EDT Mariama Bravo MD POINT OF CARE TEST ORDERABLE S Performing Organization Address City/State/[place] [address] (ABNORMAL) POCT Glucose (03/10/2017 6:11 PM EDT) P athologist Signature POC Glucose 249 (H) 65 - 199 [facility] mg/dL [facility] Comment: Supplemental ranges: <140 mg/dL before meals <180 mg/dL all other times of the day Specimen Anatomical Collection Method Collection Time Receive d Time (Source) Location / / Volume Laterality Blood specimen 03/10/2017 6:11 PM 017 6:11 (specimen) EDT PM EDT Mariama Bravo MD POINT OF CARE TEST ORDERABLE S Performing Organization Address City/State/[place] [address] (ABNORMAL) POCT Glucose (03/10/2017 3:50 PM EDT) P athologist Signature POC Glucose 250 (H) 65 - 199 [facility] LOY mg/dL [facility] Comment: Supplemental ranges: <140 mg/dL before meals <180 mg/dL all other times of the day Specimen Anatomical Collection Method Collection Time Receive d Time (Source) Location / / Volume Laterality Blood specimen 03/10/2017 3:50 PM 017 3:50 (specimen) EDT PM EDT Mariama Bravo MD POINT OF CARE TEST ORDERABLE S Performing Organization Address City/State/[place] [address] POCT Glucose (03/10/2017 11:52 AM EDT) P athologist Signature POC Glucose 196 65 - 199 [facility] LOY mg/dL [facility] Comment: Supplemental ranges: <140 mg/dL before meals <180 mg/dL all other times of the day Specimen Anatomical Collection Method Collection Time Receive d Time (Source) Location / / Volume Laterality Blood specimen 03/10/2017 11:52 7 (specimen) AM EDT 11:52 AM EDT Mariama Bravo MD POINT OF CARE TEST ORDERABLE S Performing Organization Address City/State/[place] [address] EKG 12 Lead (03/10/2017 11:45 AM EDT) Component Value Ref Range Test Analysis Performed Pathologis t Method Time At Signature Ventricular rate 66 BPM MUSE SYSTEM Atrial Rate 66 BPM MUSE SYSTEM P-R Interval 210 ms MUSE SYSTEM QRS Duration 96 ms MUSE SYSTEM Q-T Interval 424 ms MUSE SYSTEM QTC Calculated 444 ms MUSE SYSTEM (Bezet) Calculated P [place] 44 degrees MUSE SYSTEM Calculated R [place] -12 degrees MUSE SYSTEM Calculated T [place] -8 degrees MUSE SYSTEM INTERPRETATION Sinus rhythm with 1st degree A-V block MUSE SYSTEM Moderate voltage criteria for LVH, may be normal variant Inferior infarct (cited on or before 25-SEP-2016) When compared with ECG of 27-SEP-2016 07:27, No significant change was found Confirmed by MD Gogo, Junior ([id number]) on 03/10/2017 4:5 7:05 PM Specimen Anatomical Collection Method Collection Time Receive d Time (Source) Location / / Volume Laterality 03/10/2017 11:45 03/10/2017 4:57 AM EDT PM EDT Mariama Bravo MD ECG ORDERABLES Performing Organization Address City/State/ZIP Code Phon e Number MUSE SYSTEM (ABNORMAL) BMP w/fasting Glucose (03/10/2017 8:43 AM EDT) P athologist Signature Glucose 223 (H) 65 - 99 [facility] Fasting mg/dL [facility] Comment: ?Fasting* Glucose Interpretive C [...] of Diabetes Mellitus, Position Statement from the [place] [employer]. ??Diabete s Care, Volume 33, Supplement 1, Nov 2009 BUN 11 10 - 20 mg/dL [facility] Creatinine 0.75 (L) 0.80 - 1.50 mg/dL [facility] Comment: Please note that the pediatric reference intervals supplied above were not validated at [facility]. Results from pediatri c patients should be interpreted in conjunction to the patient's age, height and muscle mass. Sodium 139 135 - 145 mmol/L [facility] Potassium 4.4 3.5 - 5.0 mmol/L [facility] Comment: Please note: ??Patients with WBC >100,00 0 may have falsely elevated Potassium levels. ??For accurate Potassium quantif ication in these patients send serum separator tube (gold top) for subsequent determinations. ??Contact the Clinical Chemistry Laboratory if there are any qu estions. Chloride 96 (L) 98 - 107 mmol/L [facility] CO2 28 22 - 31 mmol/L [facility] Anion Gap 15 5 - 15 mmol/L [facility] Calcium 9.5 8.5 - 10.5 mg/dL [facility] Estimated GFR >60 >=60 [facility] Comment: This estimated GFR [...] the following links into your internet browser. [email or web address] [email or web address] Specimen Anatomical Collection Method Collection Time Receive d Time (Source) Location / / Volume Laterality Blood specimen 03/10/2017 8:43 AM 017 9:12 (specimen) EDT AM EDT Resulting Agency Comment Spec In Lab Benedicto Ocononr Jr., MD CHEMISTRY ORDERABLES Performing Organization Address City/State/[place] [address] documented in this encounter [...] Coronary atherosclerosis of unspecified type of vessel, hamilton or graft documented in this encounter Administered [...] Discontinued, Routine clopidogrel (PLAVIX) tablet 75 mg 18 (Given - Provider: Aleshia Pratt RN) 75 [...] ESTEFANIA) 0809 (Given - Provider: Aleshia Pratt, RN)1017 (Given - Provider: Aleshia Pratt RN) [...] injection (CANCELED) 1039 (Given - Provider: Shala Blake, ESTEFANIA)1057 (Given - Provider: Shala Blake, RN)1111 (Given [...] (CANCELED) 1 044 (Given - Provider: Shala Blake, ESTEFANIA) ONCE PRN, Starting Thu03/10/17 at 1044, Until Thu03/10/17 at 1159, Cath (Intra- Procedure), Routine iohexol (OMNIPAQUE) 350 mg/mL solution (CANCELED) 1112 (Given - Provider: Mariama Bravo MD) ONCE PRN, Starting Thu03/10/17 at 1112, Until Thu03/10/17 at 1159, Cath (Intra- Procedure), Routine midazolam (PF) (VERSED) 1 mg/mL multi-dose injection (CANCEL ED) 1039 (Given - Provider: Shala Blake, ESTEFANIA)1057 (Given - Provider: Shala Blake RN) ONCE [...] Intramuscular, EVERY 1 HOUR PRN, S tarting 03/10/17 at 1255, Until 03/11/17 at 1235, Low [...]
Routine documented in this encounter Care Teams Manager Respiratory Relationship Specialty Start Date End Date Librado Alvarado MD PCP - General 10/08/10 01/18/18 580 [facility] [address] [place] [address] documented as of this encounter
--- OUTSIDE RECORDS SUMMARY | 2022-10-07 08:55 | XMS_ITS | Encounter Summary ---
:1955 Author Organization [facility] [place] [address] Care Team Providers Name Role Phone Librado Alvarado MD Primary Care Provider Reason for Visit Reason Onset Date Comments Medication Refill 08/25/2017 Encounter Details Date Type Department Care Team Description 08/25/2017 Telephone Cardiology at [facility] Benedicto Oconnor Jr., MD Medication Refill [address] [place] [address] [place] [address] [place], [place] [id number] (Wo rk) Social History Tobacco Use Types [...] Takes 2 now instead of the 1 1/2 90 day [facility] [place] He only has enough left for tomorrow. He is only expecting a call back @ [phone] if there is a problem. documented in this encounter Plan of Treatment Upcoming Encounters Date Type Specialty Care Team Description 03/25/2022 Anesthesia Event Surgery Catrachita Baez MD [facility] ANESTHESIOLOGY [place], [place] [address] (Wo rk) 12/15/2022 Office Visit Cardiology Damián Hart MD [facility] [place], [place] [address] (Wo rk) 03/25/2050 Hospital Encounter Surgery Citlalli Richardson MD Vocal cord paralysis [facility] OTOLARYNGOLOGY [place], [place] [address] (Wo rk) documented as of this encounter Visit Diagnoses Diagnosis ASCVD (arteriosclerotic cardiovascular d isease) Unspecified cardiovascular disease Hypertension, essential, benign Essential hypertension, benign Vocal cord paralysis Paralysis of vocal cords or larynx, unsp ecified documented in this encounter Care Teams Registered Nurse Post Partum Relationship Specialty Start Date End Date Librado Alvarado MD PCP - General 10/08/10 01/18/18 580 [facility] [address] [place] [address] documented as of this encounter
--- OUTSIDE RECORDS SUMMARY | 2022-10-07 08:56 | XMS_ITS | Encounter Summary ---
:1955 Author Organization [facility] [place] [address] Care Team Providers Name Role Phone Librado Alvarado MD Primary Care Provider Encounter Details Date Type Department Care Team Description 09/25/2016 Notes Only Cardiology at [facility] [place] [address] Social History Tobacco Use Types Packs/Day Years Used Date Smoking Tobacco: Former Cigarettes Comments: quit at age 17 Sex Assigned at Date Recorded Not on file documented as of this encounter Progress Notes VilledaJayda - 09/25/2016 9:14 AM EST ABSORB IV CONSENT NOTE ABSORB IV RANDOMIZED CONTROLLED TRIAL A Clinical Evaluation of Absorb??? BVS, the Everolimus Eluting Bioresorbable Vascular Scaffold in the Treatment of Subjects with de adryan [place] Coronary Artery Lesions PI: Donnie Hayden MD Pager #:[phone] Consent: I met with Burton Mcnair in company of his and reviewed the ABSORB IV trial. Followingthe determination this potential participant did not have any obvious evidence of clinical exclusionto the ABSORB IV Randomized Controlled Trial, the subject was provided with a written informed consent ([facility] date 06/05/2016) and was given adequate [...] completed, Mr. Mcnair was taken to the laboratory geneticist. In the lab it was determined that Mr. Goldens disease was not consistent with the protocol of the ABSORB IV Trial and he was not randomized into the study. documented in this encounter Plan of Treatment Upcoming Encounters Date Type Specialty Care Team Description 03/25/2022 Anesthesia Event Surgery Catrachita Baez MD [facility] ANESTHESIOLOGY [place], [place] [address] (Wo rk) 12/15/2022 Office Visit Cardiology Damián Hart MD [facility] [place], [place] [address] (Wo rk) 03/25/2050 Hospital Encounter Surgery Citlalli Richardson MD Vocal cord paralysis [facility] OTOLARYNGOLOGY [place], [place] [address] (Wo rk) documented as of this encounter Visit Diagnoses Not on filedocumented in this encounter Care Teams Guest Services Assistant Relationship Specialty Start Date End Date Librado Alvarado MD PCP - General 10/08/10 01/18/[address] [address] documented as of this encounter
--- OUTSIDE RECORDS SUMMARY | 2022-10-07 08:56 | XMS_ITS | Encounter Summary ---
:1955 Author Organization [facility] [place] [address] Care Team Providers Name Role Phone Librado Alvarado MD Primary Care Provider Reason for Referral Consultation (Routine) - Specialty Diagnoses / Procedures Referred By Contact Refer red To Contact Cardiac Rehabilitation Diagnoses S/P coronary artery stent placement Mariama Bravo MD Cardiac Rehab, [facility] [address] [place] [id number] Fax: Referral ID Status Reason Start Date Expiration Date Visits V isits Requested Authorized [id number] Consult, 09/27/2016 03/26/2017 36 36 Test & Treat Reason for Visit Auth/Cert Specialty Diagnoses / Procedures Referred By Contact Refer red To Contact Diagnoses Chest pain, unspecified Chest pain Procedures PRO CATH PLMT LEFT HEART CATH & ARTS W/INJ & ANGIO IMG S&I CARDIAC CATHETERIZATION Referral ID Status Reason Start Date Expiration Date Visits Requ ested Visits Authorized [id number] 1 1 Encounter Details Date Type Department Care Team Description 09/25/2016 - Hospital Intermediate Cardiac Mariama Bravo MD ASCVD (arteriosclerotic cardiovascular d isease); 09/27/2016 Encounter Care Unit [facility] S/P coronary artery stent placement [place] [address] [address] [phone] [place], [place] (Work) [phone] Social History Tobacco Use [...] Mcnair Jr. Patient Age: 61 y.o. Language: Botswanan Race: White Ethnicity: Not nor Admit date: [...] therapy and bring him back to the cathode washer for PCI with orbital atherectomy assistance. He returned to the cardiac cathode washer on 09-26-16 and underwent orbital atherectomy with [...] following this intervention was 10%. The final LUI SCARLOS flow was 3. Pt was a planned [...] appointments: -During 8am-5pm Thursday through Thursday call [phone] to speak with a nurse in the cardiology clinic -All other times call [phone] and ask to speak to the hand tube bender chronometer adjuster. MEDICATIONS - restart your metformin on 09/28/2016 [...] Primary care provider: Cardiology: Librado Alvarado MD [phone] Follow up as planned or as needed. Dr. Mariama Bravo [phone] 11-14-2016; 10:15 am check-in General Instructions None Future Appointments and Orders Future Appointments Provider Department Dept Phone 11/14/2016 10:30 AM Mariama Bravo MD Cardiology [phone] Discharge References/Attachments None documented in this encounter Discharge Instructions Patient InstructionsTahmina Leone MD - 09/26/2016 1:22 PM EST Cardiology Instructions Call your doctor if: Chest pain, dyspnea, pain or swelling in legs occurs. If you have non-emergent questions between now and the time of your follow up appointments: -During 8am-5pm Thursday through Thursday call [phone] to speak with a nurse in the cardiology clinic -All other times call [phone] and ask to speak to the hand tube bender chronometer adjuster. MEDICATIONS - restart your metformin on 09/28/2016 [...] does not resolve you need to call [phone]. Return to work/ usual actvities: 1 week, [...] Primary care provider: Cardiology: Librado Alvarado MD [phone] Follow up as planned or as needed. Dr. Mariama Bravo [phone] 11-14-2016; 10:15 am check-in AttachmentsThe following attachments cannot be sent through Care Everywhere.CAD (CORONARY ARTERY DISEASE): GENERAL INFO (DANISH)PCI (PERCUTANEOUS CORONARY INTERVENTION): POST-OP (DANISH)HEART ATTACK: MEDICINE TO REDUCE RISK (DANISH) documented in this encounter Medications at Time [...] plan to be broughtback to the cardiac cathode washer tomorrow for PCI and intended use of [...] plan for PCI) Tahmina Leone MD Interventional Sales Enablement Manager Mariama Bravo MD - 09/25/2016 7:51 AM EST Images from the original note were not included. Burton Mcnair is a 61 y.o. male referred for [...] Quigley MD 7:51 AM September 25, 2016 Sales Enablement Manager Pager # [phone] I interviewed and examined Mr. Mcnair on 09/25/16. I agree with the history, physical exam findings and clinical plan as outlined above. Plan for diagnostic coronary angiography with [facility] via right radial approach for stable angina. Mariama Bravo MD [facility] Interventional Cardiology Pager [phone] documented in this encounter Miscellaneous Notes Plan [...] to the outpatient cardiac rehabilitation program at [facility] was discussed. Patient agrees to a [...] Anesthesia Event Surgery Catrachita Baez MD [facility] [place]ESIOLOGY [place], [place] [address] ( jaya) 12/15/2022 Office Visit Cardiology Damián Hart MD [facility] [address] [place] [address] ([place]) 03/25/2050 Hospital Encounter Surgery Citlalli Richardson MD Vocal cord paralysis [facility] OTOLARY[facility]OLOGY [place] 0375 (Wo rk) Scheduled Referrals Name Type Priority Associated Diagnoses Order S chedule Referral to Outpatient Referral Routine S/P coronary artery O rdered: Cardiac Rehab stent placement 09/27/2016 documented as of this encounter Procedures Procedure Name Priority Date/Time Associated Diagnosis Comme nts GRINDER OUTSIDE DIAMETER SCAN 09/28/2016 12:00 AM EST POCT GLUCOSE [...] STAT 09/26/2016 2:08 Results f or this ([facility]) PM EST procedure are i n the [...] Routine 09/26/2016 3:17 Results f or this ([facility]) AM EST procedure are i n the results section. CBC (WITH DIFF) Routine 09/26/2016 3:17 AM EST BASIC METABOLIC PANEL Routine 09/26/2016 3:17 Res ults for this (NON-FASTING) AM EST procedure are in the results section. POCT GLUCOSE Routine 09/26/2016 12:07 Results for this AM EST procedure are i n the results section. CARDIAC ENZYMES STAT 09/25/2016 9:04 Results f or this ([facility]) PM EST procedure are i n the [...] documented in this encounter Results SCAN DOC: GRINDER OUTSIDE DIAMETER (09/28/2016 12:00 AM EST) Anatomical Region Laterality Modality Other Narrative This result has an attachment that is no t available. Scanning Provider MEDIA MGR SCAN EXT ORDR/RSLT POCT Glucose (09/27/2016 8:22 AM EST) P athologist Signature POC Glucose 159 65 - 199 [facility] mg/dL [facility] Comment: Supplemental ranges: <140 mg/dL before meals <180 mg/dL all other times of the day Specimen Anatomical Collection Method Collection Time Receive d Time (Source) Location / / Volume Laterality Blood specimen 09/27/2016 8:22 AM 016 8:22 (specimen) EST AM EST Mariama Bravo MD POINT OF CARE TEST ORDERABLE S Performing Organization Address City/State/[place] [address] EKG 12 Lead (09/27/2016 7:27 AM EST) Component Value Ref Range Test Analysis Performed Pathologis t Method Time At Signature Ventricular rate 61 BPM MUSE SYSTEM Atrial Rate 61 BPM MUSE SYSTEM P-R Interval 210 ms MUSE SYSTEM QRS Duration 96 ms MUSE SYSTEM Q-T Interval 414 ms MUSE SYSTEM QTC Calculated 416 ms MUSE SYSTEM (Bezet) Calculated P [place] 46 degrees MUSE SYSTEM Calculated R [place] -18 degrees MUSE SYSTEM Calculated T [place] -21 degrees MUSE SYSTEM INTERPRETATION Sinus rhythm [...] SYSTEM POCT Glucose (09/27/2016 4:19 AM EST) P athologist Signature POC Glucose 152 65 - 199 [facility] Comment: Supplemental ranges: <140 mg/dL before meals <180 mg/dL all other times of the day Specimen Anatomical Collection Method Collection Time Receive d Time (Source) Location / / Volume Laterality Blood specimen 09/27/2016 4:19 AM 016 4:19 (specimen) EST AM EST Mariama Bravo MD POINT OF CARE TEST ORDERABLE S Performing Organization Address City/[facility]/ZIP Code Phon e Number [facility] [address] POCT Glucose (09/27/2016 12:12 AM EST) P athologist Signature POC Glucose 131 65 - 199 [place] mg/dL [facility] Comment: Supplemental ranges: <140 mg/dL before meals <180 mg/dL all other times of the day Specimen Anatomical Collection Method Collection Time Receive d Time (Source) Location / / Volume Laterality Blood specimen 09/27/2016 12:12 6 (specimen) AM EST 12:12 AM EST Mariama Bravo MD POINT OF CARE TEST ORDERABLE S Performing Organization Address City/State/ZIP Code Phon e Number [address] POCT Glucose (09/26/2016 8:22 PM EST) athologist Signature POC Glucose 150 65 - 199 [place] mg/dL [facility] Comment: Supplemental ranges: <140 mg/dL before meals <180 mg/dL all other times of the day Specimen Anatomical Collection Method Collection Time Receive d Time (Source) Location / / Volume Laterality Blood specimen 09/26/2016 8:22 PM 016 8:22 (specimen) EST PM EST Mariama Bravo MD POINT OF CARE TEST ORDERABLE S Performing Organization Address City/State/ZIP Code Phon e Number [address] POCT Glucose (09/26/2016 4:20 PM EST) athologist Signature POC Glucose 157 65 - 199 [place] mg/dL [facility] Comment: Supplemental ranges: <140 mg/dL before meals <180 mg/dL all other times of the day Specimen Anatomical Collection Method Collection Time Receive d Time (Source) Location / / Volume Laterality Blood specimen 09/26/2016 4:20 PM 016 4:20 (specimen) EST PM EST Mariama Bravo MD POINT OF CARE TEST ORDERABLE S Performing Organization Address City/State/[place] [address] Cardiac Enzymes (09/26/2016 2:08 PM EST) athologist Signature Troponin-T <0.03 <=0.03 [place] ng/mL [facility] Comment: 0.03 ng/mL: Represents the [...] consensus document of the Joint Society of Cardiology/[place] [employer] o f Cardiology Committee for the redefinition of myocardial infarction. ? ?Journal of the [place] College of Cardiology 2000; 36: 959-969] CK, Total 134 0 - 200 unit/L [facility] Specimen Anatomical Collection Method Collection Time Receive d Time (Source) Location / / Volume Laterality Blood specimen 09/26/2016 2:08 PM 016 2:22 (specimen) EST PM EST Resulting Agency Comment Spec In Lab Mary Juárez MD CHEMISTRY ORDERABLES Performing Organization Address City/[facility]/ZIP Code Phon e Number [address] POCT Glucose (09/26/2016 1:14 PM EST) P athologist Signature POC Glucose 121 65 - 199 [facility] mg/dL [facility] Comment: Supplemental ranges: <140 mg/dL before meals <180 mg/dL all other times of the day Specimen Anatomical Collection Method Collection Time Receive d Time (Source) Location / / Volume Laterality Blood specimen 09/26/2016 1:14 PM 016 1:14 (specimen) EST PM EST Mariama Bravo MD POINT OF CARE TEST ORDERABLE S Performing Organization Address City/[facility]/[place]IP [place] [address] EKG 12 Lead (09/26/2016 11:03 AM EST) Component Value Ref Range Test Analysis Performed Pathologis t Method Time At Signature Ventricular rate 55 BPM MUSE SYSTEM Atrial Rate 55 BPM MUSE SYSTEM P-R Interval 216 ms MUSE SYSTEM QRS Duration 102 ms MUSE SYSTEM Q-T Interval 440 ms MUSE SYSTEM QTC Calculated 420 ms MUSE SYSTEM (Bezet) Calculated P [place] 45 degrees MUSE SYSTEM Calculated R [place] -12 degrees MUSE SYSTEM Calculated T [place] -12 degrees MUSE SYSTEM INTERPRETATION Sinus bradycardia [...] Signature POC Glucose 162 65 - 199 [facility] mg/dL [facility] Comment: Supplemental ranges: <140 mg/dL before meals <180 mg/dL all other times of the day Specimen Anatomical Collection Method Collection Time Receive d Time (Source) Location / / Volume Laterality Blood specimen 09/26/2016 10:48 6 (specimen) AM EST 10:48 AM EST Mariama Bravo MD POINT OF CARE TEST ORDERABLE S Performing Organization Address City/[facility]/[place] [address] CARDIAC CATHETERIZATION (09/26/2016 10:38 AM EST) Anatomical Region Laterality Modality Other Specimen (Source) Anatomical Location Collection Method / Collectio n Time Received Time / Laterality Volume Narrative 09/26/2016 1:13 PM EST ?[facility] ? Cardiac Cathete rization/Intervention Report ? Patient Name: [place] Jr, Burton D. ? Procedure Date: 09/26/2016 ? A #: [id number] ? Primary Physician: Mariama Bravo ? Case #: [id number] ? File Name: [id number] ? Catheterization Order Number: [id number] ? [facility] ? Final Report [place], [place] ? Patient Name: ? Burton D. Gar field Jr ? ID#: ?[id number] ? : ?1955 ? Procedure Date: ? [...] with: sta ble angina (w/i 42 days). [place] ?Cardiovascular Society angina c lass was II. [...] note might be different from the original. [facility] Cardiac Catheterization/Intervention Re port Patient Name: Burton Mcnair Jr Procedure Date: 09/26/2016 A #: [id number] Primary Physician: Mariama Bravo Case #: [id number] File Name: [id number] Catheterization Order Number: [id number] [facility] Final Report [place], [place] Patient Name: Burton Mcnair Jr ID# : [id number] : 1955 Procedure Date: September 26, 2016 [...] with: stable yo na (w/i 42 days). [place] Cardiovascular Society angina class was II. This [...] for the procedure was Elective . The [facility] indication for the procedure was Stable angina. [...] Signature POC Glucose 175 65 - 199 [facility] mg/dL [facility] Comment: Supplemental ranges: <140 mg/dL before meals <180 mg/dL all other times of the day Specimen Anatomical Collection Method Collection Time Receive d Time (Source) Location / / Volume Laterality Blood specimen 09/26/2016 7:55 AM 016 7:55 (specimen) EST AM EST Mariama Bravo MD POINT OF CARE TEST ORDERABLE S Performing Organization Address City/State/[place] [address] Cardiac Enzymes (09/26/2016 3:17 AM EST) athologist Signature Troponin-T <0.03 <=0.03 [facility] ng/mL [facility] Comment: 0.03 ng/mL: Represents the [...] consensus document of the Joint Society of Cardiology/[place] [employer] o f Cardiology Committee for the redefinition of myocardial infarction. ? ?Journal of the [place] College of Cardiology 2000; 36: 959-969] CK, Total 146 0 - 200 unit/L [facility] Specimen Anatomical Collection Method Collection Time Receive d Time (Source) Location / / Volume Laterality Blood specimen Venous Draw / 09/26/2016 3:17 AM 2015 3:42 (specimen) Unknown EST AM EST Resulting Agency Comment Spec In Lab Mariama Bravo MD CHEMISTRY ORDERABLES Performing Organization Address City/State/[place] [address] Differential, Automated (09/26/2016 3:17 AM EST) P athologist Signature Neutrophils % 60.8 % [facility] Neutr Abs (ANC) 2.79 1.70 - [facility] 6.10 [facility] x10(3)/[facility] LABORATORY Lymphocytes % 28.1 % [facility] Lymphocytes Abs 1.3 0.9 - 3.2 [facility] x10(3)/[facility] LABORATORY Monocytes % 8.9 % [facility] Monocyte Abs 0.4 0.3 - 0.9 [facility] x10(3)/[facility] LABORATORY Eosinophils % 1.3 % [facility] Eosinophils Abs 0.1 0.0 - 0.4 [facility] x10(3)/[facility] LABORATORY Basophils % 0.7 % [facility] Basophils Abs 0.0 0.0 - 0.1 [facility] x10(3)/[facility] LABORATORY Immature Gran % 0.20 % [facility] Comment: Immature granulocytes(IG's)percentage an d absolute count will include metamyelocytes, myelocytes, and promyelo cytes. Blood smears from CBCs yielding IG's will be scanned manually for concor dance. If this scan disagrees with the automated IG or if promyelocytes are not ed, a manual differential will be performed. Nikole Gran Abs 0.01 0.00 - 0.04 x10(3)/[facility] LABORATORY Specimen Anatomical Collection Method Collection Time Receive d Time (Source) Location / / Volume Laterality Blood specimen 09/26/2016 3:17 AM 016 3:42 (specimen) EST AM EST Resulting Agency Comment Spec In Lab Mariama Bravo MD HEMATOLOGY ORDERABLES Performing Organization Address City/State/[place] [address] (ABNORMAL) Hemogram (09/26/2016 3:17 AM EST) Analysis Performed At Patho logist Time Signature WBC 4.6 4.0 - 9.5 [facility] x10(3)/[facility] LABORATORY RBC 3.97 (L) 4.58 - [facility] 5.54 [facility] x10(6)/[facility] LABORATORY Hemoglobin 12.5 (L) 13.7 - [facility] 16.5 gm/dL [facility] Hematocrit 35.3 (L) 40.5 [facility] 48.5 % [facility] MCV 88.9 82.9 - [facility] [address] [facility] LABORATORY MCH 31.5 27.5 - [facility] 32.1 pg [facility] MCHC 35.4 32.0 - [facility] 35.7 gm/dL [facility] Platelets 115 (L) 145 - 357 [facility] x10(3)/[facility] LABORATORY RDWSD 37.6 36.0 - [facility] [address] [facility] LABORATORY RDWCV 11.7 11.4 - [facility] 13.8 % [facility] MPV 9.6 7.6 - 12.9 [facility] LABORATORY nRBC % Auto 0.0 % [facility] nRBC Abs Auto 0.000 0.000 - [facility] 0.000 [facility] x10(3)/[facility] LABORATORY Specimen Anatomical Collection Method Collection Time Receive d Time (Source) Location / / Volume Laterality Blood specimen 09/26/2016 3:17 AM 016 3:42 (specimen) EST AM EST Resulting Agency Comment Spec In Lab Mariama Bravo MD HEMATOLOGY ORDERABLES Performing Organization Address City/State/[place] [address] (ABNORMAL) Basic Metabolic Panel (non-fasting) (09/26/2016 3:17 AM EST) athologist Signature Glucose Lvl 145 65 - 199 [facility] mg/dL [facility] Comment: Diabetes: >=200 mg/dL plus symp toms BUN 14 10 - 20 mg/dL [facility] Creatinine 0.79 (L) 0.80 - 1.50 mg/dL [facility] Comment: Please note that the pediatric reference intervals supplied above were not validated at [facility]. Results from pediatri c patients should be interpreted in conjunction to the patient's age, height and muscle mass. Sodium 141 135 - 145 mmol/L [facility] Potassium 4.1 3.5 - 5.0 mmol/L [facility] Comment: Please note: ??Patients with WBC >100,00 0 may have falsely elevated Potassium levels. ??For accurate Potassium quantif ication in these patients send serum separator tube (gold top) for subsequent determinations. ??Contact the Clinical Chemistry Laboratory if there are any qu estions. Chloride 103 98 - 107 mmol/L [facility] CO2 24 22 - 31 mmol/L [facility] Anion Gap 14 5 - 15 mmol/L [facility] Calcium 8.5 8.5 - 10.5 mg/dL [facility] Estimated GFR >60 >=60 [facility] [place] Comment: This estimated GFR (eGFR) [...] the following links into your internet browser. [email or web address] Specimen Anatomical Collection Method Collection Time Receive d Time (Source) Location / / Volume Laterality Blood specimen 09/26/2016 3:17 AM 016 3:42 (specimen) EST AM EST Resulting Agency Comment Spec In Lab Mariama Bravo MD CHEMISTRY ORDERABLES Performing Organization Address City/[facility]/ZIP Code Phon e Number [address] POCT Glucose (09/26/2016 12:07 AM EST) P athologist Signature POC Glucose 135 65 - 199 [place] mg/dL [facility] Comment: Supplemental ranges: <140 mg/dL before meals <180 mg/dL all other times of the day Specimen Anatomical Collection Method Collection Time Receive d Time (Source) Location / / Volume Laterality Blood specimen 09/26/2016 12:07 6 (specimen) AM EST 12:07 AM EST Mariama Bravo MD POINT OF CARE TEST ORDERABLE S Performing Organization Address City/[facility]/[place] [address] Cardiac Enzymes (09/25/2016 9:04 PM EST) P athologist Signature Troponin-T <0.03 <=0.03 [facility] ng/mL [facility] Comment: 0.03 ng/mL: Represents the [...] consensus document of the Joint Society of Cardiology/[place] [employer] o f Cardiology Committee for the redefinition of myocardial infarction. ? ?Journal of the [place] College of Cardiology 2000; 36: 959-969] CK, Total 183 0 - 200 unit/L [facility] Specimen Anatomical Collection Method Collection Time Receive d Time (Source) Location / / Volume Laterality Blood specimen 09/25/2016 9:04 PM 016 9:15 (specimen) EST PM EST Resulting Agency Comment Spec In Lab Mary Juárez MD CHEMISTRY ORDERABLES Performing Organization Address City/State/ZIP Code Phon e Number [address] POCT Glucose (09/25/2016 8:34 PM EST) athologist Signature POC Glucose 97 65 - 199 [facility] mg/dL [facility] Comment: Supplemental ranges: <140 mg/dL before meals <180 mg/dL all other times of the day Specimen Anatomical Collection Method Collection Time Receive d Time (Source) Location / / Volume Laterality Blood specimen 09/25/2016 8:34 PM 016 8:34 (specimen) EST PM EST Mariama Bravo MD POINT OF CARE TEST ORDERABLE S Performing Organization Address City/[facility]/ZIP [facility] Phon e Number [address] POCT Glucose (09/25/2016 5:04 PM EST) athologist Signature POC Glucose 182 65 - 199 [facility] mg/dL [facility] Comment: Supplemental ranges: <140 mg/dL before meals <180 mg/dL all other times of the day Specimen Anatomical Collection Method Collection Time Receive d Time (Source) Location / / Volume Laterality Blood specimen 09/25/2016 5:04 PM 016 5:04 (specimen) EST PM EST Mariama Bravo MD POINT OF CARE TEST ORDERABLE S Performing Organization Address City/[facility]/ZIP [place] [address] EKG 12 Lead (09/25/2016 8:11 AM EST) Component Value Ref Range Test Analysis Performed Pathologis t Method Time At Signature Ventricular rate 58 BPM MUSE SYSTEM Atrial Rate 58 BPM MUSE SYSTEM P-R Interval 198 ms MUSE SYSTEM QRS Duration 86 ms MUSE SYSTEM Q-T Interval 428 ms MUSE SYSTEM QTC Calculated 420 ms MUSE SYSTEM (Bezet) Calculated P [place] 51 degrees MUSE SYSTEM Calculated R [place] -14 degrees MUSE SYSTEM Calculated T [place] -20 degrees MUSE SYSTEM INTERPRETATION Sinus bradycardia [...] Bravo MD ECG ORDERABLES Performing Organization Address City/[facility]/ZIP Code Phon e Number MUSE SYSTEM POCT Glucose (09/25/2016 6:43 AM EST) P athologist Signature POC Glucose 154 65 - 199 [facility] mg/dL [facility] Comment: Supplemental ranges: <140 mg/dL before meals <180 mg/dL all other times of the day Specimen Anatomical Collection Method Collection Time Receive d Time (Source) Location / / Volume Laterality Blood specimen 09/25/2016 6:43 AM 016 6:43 (specimen) EST AM EST Mariama Bravo MD POINT OF CARE TEST ORDERABLE S Performing Organization Address City/[facility]/ZIP [facility] [place] [address] documented in this encounter Visit Diagnoses Diagnosis ASCVD (arteriosclerotic cardiovascular d isease) Unspecified cardiovascular disease S/P coronary artery stent placement Postsurgical percutaneous transluminal c oronary angioplasty status ASCVD (arteriosclerotic cardiovascular d isease) Unspecified cardiovascular [...] active insulin. heparin (porcine) subcutaneous injection Given 016 6:00 AM EST 5,000 Units 5,000 Units 5,000 Units, Subcutaneous, EVERY 8 HOURS SCHEDULED, First dose on [facility] 09/25/16 at 1600, Until Discontinued, Routine Given 09/26/2016 10:00 PM EST 5,000 Units Given 09/26/2016 6:19 AM EST 5,000 Units insulin lispro (humaLOG) VIAL injection 1-4 Given 09/16 4:30 PM EST 1 Units Units 1-4 Units, Subcutaneous, 3 TIMES DAILY BEFORE MEALS, First dose on [facility] 09/25/16 at 1130, Until Discontinued, CORRECTION BOLUS [...] EVERY 4 HOURS SCHEDULED, First dose on [facility] 09/25/16 at 0945, Until Discontinued, CORRECTION BOLUS [...] 40 mg, Oral, NIGHTLY, First dose on Thu09/25/16 at 2100, Until Discontinued, Routine sodium chloride [...] dose of aspirin of 81 mg , Routine, After the initial loading dose of aspirin (usually 325 mg), use ticagrelor with a daily maintenance dose of aspirin 81 mg. Is this patient on 81 mg of aspirin? Yes Given 09/26/2016 9:00 PM EST 90 mg zolpidem (AMBIEN) tablet 5 mg Given 09/25/2016 10:24 PM EST 5 mg 5 mg, Oral, ONCE, 1 dose, On Myrna 09/25/16 at 2045, Routine zolpidem (AMBIEN) tablet 5 [...] Roberts RN) 0619 (Given - Provider: Azra Roberts, ESTEFANIA)0843 [...] - Reason: Contraindicated)0400 (Given - Provider: Alice Sellers, ESTEFANIA)0905 (Given - Provider: Macey Phelps, RN)1200 (Due [...] Adt) 0857 (Given - Provider: Macey Phelps ESTEFANIA) 50 mg, Oral, DAILY, First dose on Thu at 0900, Until Discontinued, DO NOT CRUSH OR OPEN, Routine simvastatin (ZOCOR) tablet 40 mg (CANCELED) 2038 (Give n - Provider: Azra Roberts, ESTEFANIA) 0843 (JAN Hold - Provider: Admin Adt - R theresa: Transfer to a Procedural area)1055 (JAN Unhold - Provider: Admin Adt) 40 mg, Oral, NIGHTLY, First dose on Thu09/25/16 at 2100, Until Discontinued, Routine sodium chloride 0.9 % flush 5 mL 0945 (Not Given - Pro vider: Alice Sellers RN - Reason: Contraindicated)2040 (Given - Provider: Azra Roberts RN) 0804 [...] Discontinued, Routine ticagrelor (BRILINTA) tablet 90 mg 2099 (Given - Provider: Alice Sellers RN) 0858 [...] ESTEFANIA) 5 mg, Oral, ONCE, 1 dose, Thu09/25/16 at 2045, Routine Continuous Medication Order 09/25/2016 09/26/2016 09/27/2016 sodium chloride 0.9% infusion () 0945 (Continue d Bag - Provider: Shala Blake RN) 100 mL/hr, at 100 mL/hr, Intravenous, CO NTINUOUS, Starting Myrna 09/25/16 at 0945, Until Myrna 09/25/16 at 1344, Recovery (Recovery-Hospital Unit) sodium chloride 0.9% infusion 1050 (New Bag - Provider: Azra Fan, RN) 100 mL/hr, at 100 mL/hr, Intravenous, CO NTINUOUS, Starting 09/26/16 at 1115, Until Thu09/26/16 at 1514, Recovery (Recovery-Hospital Unit) PRN Medication Order 09/25/2016 09/26/2016 09/27/2016 acetaminophen (TYLENOL) tablet 650 mg 08 43 (JAN Hold - Provider: Admin Adt - Reason: Transfer to a Procedural area)1307 ([facility] Unhold - Provider: Admin Adt) 650 mg, [...] 50% injection 25-50 mL(Linked Group 3) 0843 ([facility] Hold - Provider: Admin Adt - Reason: Transfer to a Procedural area)1307 ([facility] Unhold - Provider: Admin Adt) 25-50 mL [...] mL Juice or Regular (not diet) s rj OR 25 grams (50 mL) Dextrose 50% [...] Until Thu09/26/16 at 1137, Cath (Intra-Procedure), Routine glucagon (human [...] PRN, Starting Myrna 09/25/16 at 0831, Until Thu09/25/16 at 1502, Cath [...] mg/mL (1 %) injection 3 mg 0843 ([facility] Hold - Provider: Admin Adt - Reason: Transfer to a Procedural area)1307 ([facility] Unhold - Provider: Admin Adt) 3 mg (0.3 mL), Subcutaneous, ONCE PRN, 1 dose, Starting Thu09/25/16 at 0704, Until 09/27/16 at 1428, with discomfort with PIV insertion, Routine lidocaine (XYLOCAINE) 10 mg/mL (1 %) injection 3 mg 0843 ([facility] Hold - Provider: Admin Adt - Reason: Transfer to a Procedural area)1307 ([facility] Unhold - Provider: Admin Adt) 3 mg (0.3 mL), Subcutaneous, ONCE PRN, 1 dose, Starting Thu09/25/16 at 0914, Until 09/27/16 at 1428, for discomfort with PIV insertion, Routine midazolam (PF) (VERSED) 1 mg/mL multi-dose injection ( CANCELED) 0821 (Given - Provider: Slime Borges RN)0847 (Given - Provider: Slime Borges RN) ONCE PRN, Starting Thu09/25/16 at 0821, Until Myrna 09/25/16 at 1502, Cath (Intra-Procedure), Routine midazolam (PF) (VERSED) 1 mg/mL multi-dose injection (CANCEL ED) 0840 (Given - Provider: Jayda Villeda)0854 (Given - Provider: Johnathon Lora) ONCE PRN, Starting Thu09/26/16 at 0854, Until Thu09/26/16 at 1137, Cath (Intra-Procedure), Routine nitroGLYcerin (NITROSTAT) SL tablet 0.4 mg 0843 ([facility] Hold - Provider: Admin Adt - Reason: Transfer to a Procedural area)1307 ([facility] Unhold - Provider: Admin Adt) 0.4 mg, [...] chloride 0.9 % flush 5-20 mL 0843 ([facility] Hold - Provider: Admin Adt - Reason: Transfer to a Procedural area)1307 ([facility] Unhold - Provider: Admin Adt) 5-20 mL, Intravenous, EVERY 1 MIN PRN, S tarting Myrna 09/25/16 at 0914, Until 09/27/16 at 1428, flush, Flush pertains to all indwelling lines. Flush per protocol found in the job aid using the link provided on this medication record., Routine sodium chloride 0.9% infusion (CANCELED) 0835 (New Bag - Provider: Slime Borges, ESTEFANIA) CONTINUOUS PRN, Starting Thu09/25/16 at 0835, Until Thu09/25/16 at 1502, Cath (Intra-Procedure) ticagrelor (BRILINTA) tablet (CANCELED) 0847 (Given - Provider: Slime Borges RN) ONCE PRN, Starting Thu09/25/16 at 0847, Until Thu09/25/16 at 1502, Cath (Intra-Procedure), Routine ticagrelor (BRILINTA) tablet (CANCELED) 0830 (Given - Provider: Stan Borges RN) ONCE PRN, Starting Thu09/26/16 at 0830, Until Thu09/26/16 at 1137, Cath (Intra-Procedure), Routine zolpidem (AMBIEN) tablet 5 mg 2137 (Given - Prov ider: Alice Sellers RN) [...] g), Intravenous, EVERY 1 HOUR PRN, Starting Thu09/25/16 at 0917, Until 09/27/16 at 1428, Low [...]
Routine documented in this encounter Care Teams Cephalometric Tracer Relationship Specialty Start Date End Date Librado Alvarado MD PCP - General 10/08/10 01/18/18 [address] [facility] [address] [place] [id number] documented as of this encounter
--- OUTSIDE RECORDS SUMMARY | 2022-10-07 08:56 | XMS_ITS | Encounter Summary ---
:1955 Author Organization [facility] [address] Care Team Providers Name Role Phone Librado Alvarado MD Primary Care Provider Reason for Visit Auth/Cert Specialty Diagnoses / Procedures Referred By Contact Refer red To Contact Diagnoses Chest pain, unspecified Chest pain Procedures PRO CATH PLMT LEFT HEART CATH & ARTS W/INJ & ANGIO IMG S&I CARDIAC CATHETERIZATION Referral ID Status Reason Start Date Expiration Date Visits Requ ested Visits Authorized [id number] 1 1 Encounter Details Date Type Department Care Team Description 09/26/2016 Surgery Turf Manager Alejandro Laws MD CARDIAC CATHETERIZATION [facility] [place] [address] [place] [address] [phone] Social History Tobacco Use Types Packs/Day Years [...] Mcnair Jr. Patient Age: 61 y.o. Language: German Race: White Ethnicity: Not nor Admit date: [...] therapy and bring him back to the skilled laborer for PCI with orbital atherectomy assistance. He returned to the cardiac skilled laborer on 09-26-16 and underwent orbital atherectomy with [...] appointments: -During 8am-5pm Thursday through Thursday call [phone] to speak with a nurse in the cardiology clinic -All other times call [phone] and ask to speak to the heat set operator library consultant. MEDICATIONS - restart your metformin on 09/28/2016 [...] Primary care provider: Cardiology: Librado Alvarado MD [phone] Follow up as planned or as needed. Dr. Mariama Bravo [phone] 11-14-2016; 10:15 am check-in General Instructions None Future Appointments and Orders Future Appointments Provider Department Dept Phone 11/14/2016 10:30 AM Mariama Bravo MD Cardiology [phone] Discharge References/Attachments None documented in this encounter Discharge Instructions Patient InstructionsTahmina Leone MD - 09/26/2016 1:22 PM EST Cardiology Instructions Call your doctor if: Chest pain, dyspnea, pain or swelling in legs occurs. If you have non-emergent questions between now and the time of your follow up appointments: -During 8am-5pm Thursday through Thursday call [phone] to speak with a nurse in the cardiology clinic -All other times call [phone] and ask to speak to the heat set operator library consultant. MEDICATIONS - restart your metformin on 09/28/2016 [...] Primary care provider: Cardiology: Librado Alvarado MD [phone] Follow up as planned or as needed. Dr. Mariama Bravo [phone] 11-14-2016; 10:15 am check-in AttachmentsThe following attachments cannot be sent through Care Everywhere.CAD (CORONARY ARTERY DISEASE): GENERAL INFO (THAI)PCI (PERCUTANEOUS CORONARY INTERVENTION): POST-OP (THAI)HEART ATTACK: MEDICINE TO REDUCE RISK (THAI) documented in this encounter Medications at Time [...] plan to be broughtback to the cardiac skilled laborer tomorrow for PCI and intended use of [...] plan for PCI) Tahmina Leone MD Interventional Boiler/Chiller Technician Mariama Bravo MD - 09/25/2016 7:51 AM [...] Quigley MD 7:51 AM September 25, 2016 Boiler/Chiller Technician Pager # [phone] I interviewed and examined Mr. Mcnair on 09/25/16. I agree with the history, physical exam findings and clinical plan as outlined above. Plan for diagnostic coronary angiography with [facility] via right radial approach for stable angina. Mariama Bravo MD [facility] Interventional Cardiology Pager [phone] documented in this encounter Miscellaneous Notes Plan [...] RN - 09/26/2016 2:24 PM EST Burton Ethan Warren Jr. was seen today by Cardiac Rehabilitation [...] to the outpatient cardiac rehabilitation program at [facility] was discussed. Patient agrees to a [...] Baez MD [facility] ANESTHESIOLOGY [place], [place] [address] (Wo rk) 12/15/2022 Office Visit Cardiology Damián Hart MD [facility] [place], [place] [address] (Wo rk) 03/25/2050 Hospital Encounter Surgery Citlalli Richardson MD Vocal cord paralysis [facility] OTOLARYNGOLOGY [place], [place] [address] (Wo rk) Scheduled Referrals Name Type Priority Associated Diagnoses Order S chedule Referral to Outpatient Referral Routine S/P coronary artery O rdered: Cardiac Rehab stent placement 09/27/2016 documented as of this encounter Procedures Procedure Name Priority Date/Time Associated Diagnosis Comme nts PLANT TAXONOMY TEACHER SCAN 09/28/2016 12:00 AM EST POCT GLUCOSE [...] STAT 09/26/2016 2:08 Results f or this ([facility] PM EST procedure are i n the [...] Routine 09/26/2016 3:17 Results f or this ([facility] AM EST procedure are i n the results section. CBC (WITH DIFF) Routine 09/26/2016 3:17 AM EST BASIC METABOLIC PANEL Routine 09/26/2016 3:17 Res ults for this (NON-FASTING) AM EST procedure are in the results section. POCT GLUCOSE Routine 09/26/2016 12:07 Results for this AM EST procedure are i n the results section. CARDIAC ENZYMES STAT 09/25/2016 9:04 Results f or this ([facility] PM EST procedure are i n the [...] documented in this encounter Results SCAN DOC: PLANT TAXONOMY TEACHER (09/28/2016 12:00 AM EST) Anatomical Region Laterality Modality Other Narrative This result has an attachment that is no t available. Scanning Provider MEDIA MGR SCAN EXT ORDR/RSLT POCT Glucose (09/27/2016 8:22 AM EST) P athologist Signature POC Glucose 159 65 - 199 [facility] mg/dL [facility] Comment: Supplemental ranges: <140 mg/dL before meals <180 mg/dL all other times of the day Specimen Anatomical Collection Method Collection Time Receive d Time (Source) Location / / Volume Laterality Blood specimen 09/27/2016 8:22 AM 016 8:22 (specimen) EST AM EST Mariama Bravo MD POINT OF CARE TEST ORDERABLE S Performing Organization Address City/State/[place] [address] EKG 12 Lead (09/27/2016 7:27 AM EST) Component Value Ref Range Test Analysis Performed Pathologis t Method Time At Signature Ventricular rate 61 BPM MUSE SYSTEM Atrial Rate 61 BPM MUSE SYSTEM P-R Interval 210 ms MUSE SYSTEM QRS Duration 96 ms MUSE SYSTEM Q-T Interval 414 ms MUSE SYSTEM QTC Calculated 416 ms MUSE SYSTEM (Bezet) Calculated P [place] 46 degrees MUSE SYSTEM Calculated R [place] -18 degrees MUSE SYSTEM Calculated T [place] -21 degrees MUSE SYSTEM INTERPRETATION Sinus rhythm [...] Signature POC Glucose 152 65 - 199 [facility] mg/dL [facility] Comment: Supplemental ranges: <140 mg/dL before meals <180 mg/dL all other times of the day Specimen Anatomical Collection Method Collection Time Receive d Time (Source) Location / / Volume Laterality Blood specimen 09/27/2016 4:19 AM 016 4:19 (specimen) EST AM EST Mariama Bravo MD POINT OF CARE TEST ORDERABLE S Performing Organization Address City/State/ZIP Code Phon e Number [address] POCT Glucose (09/27/2016 12:12 AM EST) athologist Signature POC Glucose 131 65 - 199 [facility] mg/dL [facility] Comment: Supplemental ranges: <140 mg/dL before meals <180 mg/dL all other times of the day Specimen Anatomical Collection Method Collection Time Receive d Time (Source) Location / / Volume Laterality Blood specimen 09/27/2016 12:12 6 (specimen) AM EST 12:12 AM EST Mariama Bravo MD POINT OF CARE TEST ORDERABLE S Performing Organization Address City/State/ZIP Code Phon e Number [address] POCT Glucose (09/26/2016 8:22 PM EST) athologist Signature POC Glucose 150 65 - 199 [facility] mg/dL [facility] Comment: Supplemental ranges: <140 mg/dL before meals <180 mg/dL all other times of the day Specimen Anatomical Collection Method Collection Time Receive d Time (Source) Location / / Volume Laterality Blood specimen 09/26/2016 8:22 PM 016 8:22 (specimen) EST PM EST Mariama Bravo MD POINT OF CARE TEST ORDERABLE S Performing Organization Address City/State/[place] [address] POCT Glucose (09/26/2016 4:20 PM EST) athologist Signature POC Glucose 157 65 - 199 [facility] mg/dL [facility] Comment: Supplemental ranges: <140 mg/dL before meals <180 mg/dL all other times of the day Specimen Anatomical Collection Method Collection Time Receive d Time (Source) Location / / Volume Laterality Blood specimen 09/26/2016 4:20 PM 016 4:20 (specimen) EST PM EST Mariama Bravo MD POINT OF CARE TEST ORDERABLE S Performing Organization Address City/[facility]/ZIP [place] [address] Cardiac Enzymes (09/26/2016 2:08 PM EST) athologist Signature Troponin-T <0.03 <=0.03 [facility] ng/mL [facility] Comment: 0.03 ng/mL: Represents the [...] consensus document of the Joint Society of Cardiology/[place] College o f Cardiology Committee for the redefinition of myocardial infarction. ? ?Journal of the [place] College of Cardiology 2000; 36: 959-969] CK, Total 134 0 - 200 unit/L [facility] Specimen Anatomical Collection Method Collection Time Receive d Time (Source) Location / / Volume Laterality Blood specimen 09/26/2016 2:08 PM 016 2:22 (specimen) EST PM EST Resulting Agency Comment Spec In Lab Mary Juárez MD CHEMISTRY ORDERABLES Performing Organization Address City/State/ZIP Code Phon e Number [place] [phone] [facility] [address] POCT Glucose (09/26/2016 1:14 PM EST) P athologist Signature POC Glucose 121 65 - 199 [facility] mg/dL [facility] Comment: Supplemental ranges: <140 mg/dL before meals <180 mg/dL all other times of the day Specimen Anatomical Collection Method Collection Time Receive d Time (Source) Location / / Volume Laterality Blood specimen 09/26/2016 1:14 PM 016 1:14 (specimen) EST PM EST Mariama Bravo MD POINT OF CARE TEST ORDERABLE S Performing Organization Address City/State/ZIP Code Phon e Number [address] EKG 12 Lead (09/26/2016 11:03 AM EST) Component Value Ref Range Test Analysis Performed Pathologis t Method Time At Signature Ventricular rate 55 BPM MUSE SYSTEM Atrial Rate 55 BPM MUSE SYSTEM P-R Interval 216 ms MUSE SYSTEM QRS Duration 102 ms MUSE SYSTEM Q-T Interval 440 ms MUSE SYSTEM QTC Calculated 420 ms MUSE SYSTEM (Bezet) Calculated P [place] 45 degrees MUSE SYSTEM Calculated R [place] -12 degrees MUSE SYSTEM Calculated T [place] -12 degrees MUSE SYSTEM INTERPRETATION Sinus bradycardia [...] Signature POC Glucose 162 65 - 199 [facility] mg/dL [facility] Comment: Supplemental ranges: <140 mg/dL before meals <180 mg/dL all other times of the day Specimen Anatomical Collection Method Collection Time Receive d Time (Source) Location / / Volume Laterality Blood specimen 09/26/2016 10:48 6 (specimen) AM EST 10:48 AM EST Mariama Bravo MD POINT OF CARE TEST ORDERABLE S Performing Organization Address City/State/[place] [address] CARDIAC CATHETERIZATION (09/26/2016 10:38 AM EST) Anatomical Region Laterality Modality Other Specimen (Source) Anatomical Location Collection Method / Collectio n Time Received Time / Laterality Volume Narrative 09/26/2016 1:13 PM EST ?[facility] ? Cardiac Cathete rization/Intervention Report ? Patient Name: Warren Jr, Burton D. ? Procedure Date: 09/26/2016 ? A #: [id number] ? Primary Physician: Mariama Bravo ? Case #: [id number] ? File Name: [id number] ? Catheterization Order Number: [id number] ? [facility] ? Final Report [place], [place] ? Patient Name: ? Burton D. Gar field Jr ? ID#: ?[id number] ? : ?1955 ? Procedure Date: ? [...] with: sta ble angina (w/i 42 days). [place] ?Cardiovascular Society angina c lass was II. [...] stent insertion were ?performed and the equipment abby contreras will be described in the ?intervention summary [...] Mariama Bravo, M. D. ? Report Finalized: 09/26/2016 ??12:57 ? Report Last Ammended: 01/05/2017 ??15:09 ? Procedure Note Mariama Bravo MD - 01/05/2017Formatting o f this note might be different from the original. [facility] Cardiac Catheterization/Intervention Re port Patient Name: Burton Mcnair Jr Procedure Date: 09/26/2016 A #: [id number] Primary Physician: Mariama Bravo Case #: [id number] File Name: [id number] Catheterization Order Number: [id number] [facility] Final Report [place], [place] Patient Name: Burton Mcnair Jr ID# : [id number] : 1955 Procedure Date: September 26, 2016 [...] with: stable yo na (w/i 42 days). [place] Cardiovascular Society angina class was II. This [...] for the procedure was Elective . The NCDR indication for the procedure was [...] Dr. Rigoberto Wyatt M.D. [facility] athere[facility]-coronary and stent insertio n-coronary. Mariama Bravo M.D. Electronically Signed by: Fox Payne Report Finalized: 09/26/2016 12:57 Report Last Ammended: 01/05/2017 15:09 Mariama Bravo MD CARDIAC CATH ORDERABLES POCT Glucose (09/26/2016 7:55 AM EST) athologist Signature POC Glucose 175 65 - 199 [facility] mg/dL [facility] Comment: Supplemental ranges: <140 mg/dL before meals <180 mg/dL all other times of the day Specimen Anatomical Collection Method Collection Time Receive d Time (Source) Location / / Volume Laterality Blood specimen 09/26/2016 7:55 AM 016 7:55 (specimen) EST AM EST Mariama Bravo MD POINT OF CARE TEST ORDERABLE S Performing Organization Address City/State/ZIP [place] [address] Cardiac Enzymes (09/26/2016 3:17 AM EST) athologist Signature Troponin-T <0.03 <=0.03 [facility] ng/mL [facility] Comment: 0.03 ng/mL: Represents the [...] consensus document of the Joint Society of Cardiology/[place] College o f Cardiology Committee for the redefinition of myocardial infarction. ? ?Journal of the [place] College of Cardiology 2000; 36: 959-969] CK, Total 146 0 - 200 unit/L [facility] Specimen Anatomical Collection Method Collection Time Receive d Time (Source) Location / / Volume Laterality Blood specimen Venous Draw / 09/26/2016 3:17 AM 2015 3:42 (specimen) Unknown EST AM EST Resulting Agency Comment Spec In Lab Mariama Bravo MD CHEMISTRY ORDERABLES Performing Organization Address City/State/ZIP Code Phon e Number [place] [phone] Differential, Automated (09/26/2016 3:17 AM EST) P athologist Signature Neutrophils % 60.8 % [facility] Neutr Abs (ANC) 2.79 1.70 - [facility] 6.10 [facility] x10(3)/[facility] LABORATORY Lymphocytes % 28.1 % [facility] Lymphocytes Abs 1.3 0.9 - 3.2 [facility] x10(3)/[facility] LABORATORY Monocytes % 8.9 % [facility] Monocyte Abs 0.4 0.3 - 0.9 [facility] x10(3)/[facility] LABORATORY Eosinophils % 1.3 % [facility] Eosinophils Abs 0.1 0.0 - 0.4 [facility] x10(3)/[facility] LABORATORY Basophils % 0.7 % [facility] Basophils Abs 0.0 0.0 - 0.1 [facility] x10(3)/[facility] LABORATORY Immature Gran % 0.20 % [facility] Comment: Immature granulocytes(IG's)percentage an d absolute count will include metamyelocytes, myelocytes, and promyelo cytes. Blood smears from CBCs yielding IG's will be scanned manually for concor dance. If this scan disagrees with the automated IG or if promyelocytes are not ed, a manual differential will be performed. Nikole Gran Abs 0.01 0.00 - 0.04 x10(3)/[facility] Y [facility] LABORATORY Specimen Anatomical Collection Method Collection Time Receive d Time (Source) Location / / Volume Laterality Blood specimen 09/26/2016 3:17 AM 016 3:42 (specimen) EST AM EST Resulting Agency Comment Spec In Lab Mariama Bravo MD HEMATOLOGY ORDERABLES Performing Organization Address City/State/ZIP Code Phon e Number [address] (ABNORMAL) Hemogram (09/26/2016 3:17 AM EST) Analysis Performed At Patho logist Time Signature WBC 4.6 4.0 - 9.5 [facility] x10(3)/[facility] LABORATORY RBC 3.97 (L) 4.58 - [place] 5.54 [facility] x10(6)/[facility] LABORATORY Hemoglobin 12.5 (L) 13.7 - [facility] 16.5 gm/dL [facility] Hematocrit 35.3 (L) 40.5 - [facility] 48.5 % [facility] MCV 88.9 82.9 - [facility] 93.1 [facility] LABORATORY MCH 31.5 27.5 - [place] 32.1 pg [facility] LAB[facility] MCHC 35.4 32.0 - [place] 35.7 gm/dL [facility] Platelets 115 (L) 145 - 357 [facility] x10(3)/[facility] LABORATORY RDWSD 37.6 36.0 - [facility] 45.0 [facility] LABORATORY RDWCV 11.7 11.4 - [facility] LOY 13.8 % [facility] LABORATORY MPV 9.6 7.6 - 12.9 [facility] LABORATORY nRBC % Auto 0.0 % [facility] nRBC Abs Auto 0.000 0.000 - [facility] LOY 0.000 [facility] x10(3)/[facility] LABORATORY Specimen Anatomical Collection Method Collection Time Receive d Time (Source) Location / / Volume Laterality Blood specimen 09/26/2016 3:17 AM 016 3:42 (specimen) EST AM EST Resulting Agency Comment Spec In Lab Mariama Bravo MD HEMATOLOGY ORDERABLES Performing Organization Address City/State/[place] [address] (ABNORMAL) Basic Metabolic Panel (non-fasting) (09/26/2016 3:17 AM EST) P athologist Signature Glucose Lvl 145 65 - 199 [facility] mg/dL [facility] Comment: Diabetes: >=200 mg/dL plus symp toms BUN 14 10 - 20 mg/dL [facility] Creatinine 0.79 (L) 0.80 - 1.50 mg/dL [facility] Comment: Please note that the pediatric reference intervals supplied above were not validated at [facility]. Results from pediatri c patients should be interpreted in conjunction to the patient's age, height and muscle mass. Sodium 141 135 - 145 mmol/L [facility] Potassium 4.1 3.5 - 5.0 mmol/L [facility] [...] mmol/L [facility] Anion Gap 14 5 - 15 mmol/L [facility] Calcium 8.5 8.5 - 10.5 mg/dL [facility] Estimated GFR >60 >=60 [facility] Comment: This estimated GFR [...] the following links into your internet browser. [email or web address] [email or web address] Specimen Anatomical Collection Method Collection Time Receive d Time (Source) Location / / Volume Laterality Blood specimen 09/26/2016 3:17 AM 11/11/2 016 3:42 (specimen) EST AM EST Resulting Agency Comment Spec In Lab Mariama Bravo MD CHEMISTRY ORDERABLES Performing Organization Address City/State/ZIP Code Phon e Number [address] POCT Glucose (09/26/2016 12:07 AM EST) athologist Signature POC Glucose 135 65 - 199 [facility] mg/dL [facility] Comment: Supplemental ranges: <140 mg/dL before meals <180 mg/dL all other times of the day Specimen Anatomical Collection Method Collection Time Receive d Time (Source) Location / / Volume Laterality Blood specimen 09/26/2016 12:07 6 (specimen) AM EST 12:07 AM EST Mariama Bravo MD POINT OF CARE TEST ORDERABLE S Performing Organization Address City/State/ZIP Code Phon e Number [address] Cardiac Enzymes (09/25/2016 9:04 PM EST) athologist Signature Troponin-T <0.03 <=0.03 [facility] ng/mL [facility] Comment: 0.03 ng/mL: Represents the [...] consensus document of the Joint Society of Cardiology/[place] College o f Cardiology Committee for the redefinition of myocardial infarction. ? ?Journal of the [place] College of Cardiology 2000; 36: 959-969] CK, Total 183 0 - 200 unit/L [facility] Specimen Anatomical Collection Method Collection Time Receive d Time (Source) Location / / Volume Laterality Blood specimen 09/25/2016 9:04 PM 016 9:15 (specimen) EST PM EST Resulting Agency Comment Spec In Lab Mary Juárez MD CHEMISTRY ORDERABLES Performing Organization Address City/[facility]/ZIP Code Phon e Number [address] POCT Glucose (09/25/2016 8:34 PM EST) P athologist Signature POC Glucose 97 65 - 199 [facility] mg/dL [facility] Comment: Supplemental ranges: <140 mg/dL before meals <180 mg/dL all other times of the day Specimen Anatomical Collection Method Collection Time Receive d Time (Source) Location / / Volume Laterality Blood specimen 09/25/2016 8:34 PM 016 8:34 (specimen) EST PM EST Mariama Bravo MD POINT OF CARE TEST ORDERABLE S Performing Organization Address City/[facility]/ZIP Code Phon e Number [address] POCT Glucose (09/25/2016 5:04 PM EST) athologist Signature POC Glucose 182 65 - 199 [facility] mg/dL [facility] Comment: Supplemental ranges: <140 mg/dL before meals <180 mg/dL all other times of the day Specimen Anatomical Collection Method Collection Time Receive d Time (Source) Location / / Volume Laterality Blood specimen 09/25/2016 5:04 PM 016 5:04 (specimen) EST PM EST Mariama Bravo MD POINT OF CARE TEST ORDERABLE S Performing Organization Address City/[facility]/[place] [address] EKG 12 Lead (09/25/2016 8:11 AM EST) Component Value Ref Range Test Analysis Performed Pathologis t Method Time At Signature Ventricular rate 58 BPM MUSE SYSTEM Atrial Rate 58 BPM MUSE SYSTEM P-R Interval 198 ms MUSE SYSTEM QRS Duration 86 ms MUSE SYSTEM Q-T Interval 428 ms MUSE SYSTEM QTC Calculated 420 ms MUSE SYSTEM (Bezet) Calculated P [place] 51 degrees MUSE SYSTEM Calculated R [place] -14 degrees MUSE SYSTEM Calculated T [place] -20 degrees MUSE SYSTEM INTERPRETATION Sinus bradycardia [...] SYSTEM POCT Glucose (09/25/2016 6:43 AM EST) athologist Signature POC Glucose 154 65 - 199 [facility] mg/dL [facility] Comment: Supplemental ranges: <140 mg/dL before meals <180 mg/dL all other times of the day Specimen Anatomical Collection Method Collection Time Receive d Time (Source) Location / / Volume Laterality Blood specimen 09/25/2016 6:43 AM 016 6:43 (specimen) EST AM EST Mariama Bravo MD POINT OF CARE TEST ORDERABLE S Performing Organization Address City/State/[place] [address] documented in this encounter [...] Routine zolpidem (AMBIEN) tablet 5 mg (COMPLETED) 222 (Given - Provider: Azra Roberts, ESTEFANIA) 5 mg, Oral, ONCE, 1 dose, Thu09/25/16 at 2045, Routine Continuous Medication Order 09/25/2016 09/26/2016 09/27/2016 sodium chloride 0.9% infusion () 0945 (Continue d Bag - Provider: Shala Blake, ESTEFAINA) 100 mL/hr, at 100 mL/hr, Intravenous, CO NTINUOUS, Starting Thu09/25/16 at 0945, Until Thu09/25/16 at 1344, Recovery (Recovery-Hospital Unit) sodium chloride 0.9% infusion 1050 (New Bag - Provider: Azra Fan RN) 100 mL/hr, at 100 mL/hr, Intravenous, CO NTINUOUS, Starting Thu09/26/16 at 1115, Until 09/26/16 at 1514, Recovery (Recovery-Hospital Unit) PRN Medication Order 09/25/2016 09/26/2016 09/27/2016 acetaminophen (TYLENOL) tablet 650 mg 08 43 (JAN Hold - Provider: Admin Adt - Reason: Transfer to a Procedural area)1307 ([facility] Unhold - Provider: Admin Adt) 650 mg, [...] 50% injection 25-50 mL(Linked Group 3) 0843 ([facility] Hold - Provider: Admin Adt - Reason: [...] area)1307 (MAR Unhold - Provider: Admin Adt) 3 mg (0.3 mL), Subcutaneous, ONCE PRN, 1 dose, Starting Thu09/25/16 at 0914, Until 09/27/16 at 1428, for discomfort with PIV insertion, Routine midazolam (PF) (VERSED) 1 mg/mL multi-dose injection ( CANCELED) 0821 (Given - Provider: Slime Borges, ESTEFANIA)0847 (Given - Provider: Slime Borges, ESTEFANIA) ONCE PRN, Starting Thu09/25/16 at 0821, Until Thu09/25/16 at 1502, Cath (Intra-Procedure), Routine midazolam (PF) (VERSED) 1 mg/mL multi-dose injection (CANCEL ED) 0840 (Given - Provider: Jayda Villeda)0854 (Given - Provider: Johnathon Lora) ONCE PRN, Starting Thu09/26/16 at 0854, Until Thu09/26/16 at 1137, Cath (Intra-Procedure), Routine nitroGLYcerin (NITROSTAT) SL tablet 0.4 mg 0843 ([facility] Hold - Provider: Admin Adt - Reason: Transfer to a Procedural area)1307 ([facility] Unhold - Provider: Admin Adt) 0.4 mg, [...] Bravo MD) ONCE PRN, Starting Thu09/25/16 at 0829, Until Myrna 09/25/16 at 1502, Cath (Intra-Procedure), Routine nitroGLYcerin 100 mcg/mL intracoronary dilution (CANCELED) 1016 (Given - Provider: Stan Borges RN) ONCE PRN, Starting Thu09/26/16 at 1016, Until Thu09/26/16 at 1137, Cath (Intra-Procedure), Routine sodium chloride 0.9 % flush 5-20 mL 0843 ([facility] Hold - Provider: Admin Adt - Reason: [...] (CANCELED) 0835 (New Bag - Provider: Slime Borges RN) CONTINUOUS PRN, Starting Myrna 09/25/16 at 0835, Until Myrna 09/25/16 at 1502, Cath (Intra-Procedure) ticagrelor (BRILINTA) tablet (CANCELED) 0847 (Given - Provider: Slime Borges, ESTEFANIA) ONCE PRN, Starting Thu09/25/16 at 0847, Until Thu09/25/16 at 1502, Cath (Intra-Procedure), Routine ticagrelor (BRILINTA) tablet (CANCELED) 0830 (Given - Provider: Stan Borges, ESTEFANIA) ONCE PRN, Starting Thu09/26/16 at 0830, Until [...]
Routine documented in this encounter Care Teams Receiving Associate Relationship Specialty Start Date End Date Librado Alvarado MD PCP - General 10/08/10 01/18/[address] [facility] [address] [place] [address] documented as of this encounter
--- OUTSIDE RECORDS SUMMARY | 2022-10-07 08:56 | XMS_ITS | Encounter Summary ---
:1955 Author Organization [facility] [place] [address] Care Team Providers Name Role Phone Librado Alvarado MD Primary Care Provider Encounter Details Date Type Department Care Team Description 11/09/2016 External Results [place] [address] Social History Tobacco Use Types Packs/Day Years Used Date Smoking Tobacco: Former Cigarettes Comments: quit at age 17 Sex Assigned at Date Recorded Not on file documented as of this encounter Plan of Treatment Upcoming Encounters Date Type Specialty Care Team Description 03/25/2022 Anesthesia Event Surgery Catrachita Baez MD [facility] ANESTHESIOLOGY [place], [place] [address] (Wo rk) 12/15/2022 Office Visit Cardiology Damián Hart MD [facility] [place], [place] [address] (Wo rk) 03/25/2050 Hospital Encounter Surgery Citlalli Richardson MD Vocal cord paralysis [facility] OTOLARYNGOLOGY [place], [place] [address] (Wo rk) documented as of [...] on filedocumented in this encounter Care Teams Healthcare Technician Relationship Specialty Start Date End Date Librado Alvarado MD PCP - General 10/08/10 01/18/18 [address] [facility] [address] [place] [address] documented as of this encounter
--- OUTSIDE RECORDS SUMMARY | 2022-10-07 08:56 | XMS_ITS | Encounter Summary ---
:1955 Author Organization [facility] [address] Care Team Providers Name Role Phone Librado Alvarado MD Primary Care Provider Encounter Details Date Type Department Care Team Description 10/06/2016 Telephone Cardiology at [facility] Benedicto Oconnor Jr., MD [address] [place] [address] [place] [address] [place], [place] [id number] (Wo rk) Social History Tobacco Use Types [...] Alvarado's office to scan also. I called Balijnder and told him what had transpired and [...] on 09-25. Please call him back at [phone]. documented in this encounter Plan of Treatment Upcoming Encounters Date Type Specialty Care Team Description 03/25/2022 Anesthesia Event Surgery Catrachita Baez MD [facility] ANESTHESIOLOGY [place], [place] [address] (Wo rk) 12/15/2022 Office Visit Cardiology Damián Hart MD [facility] [place], [place] [address] (Wo rk) 03/25/2050 Hospital Encounter Surgery Citlalli Richardson MD Vocal cord paralysis [facility] OTOLARYNGOLOGY [place], [place] [address] (Wo rk) documented as of this encounter Visit Diagnoses Not on filedocumented in this encounter Care Teams Broadcast Meteorologist Relationship Specialty Start Date End Date Librado Alvarado MD PCP - General 10/08/10 01/18/[address] [facility] [address] [place] [address] documented as of this encounter
--- OUTSIDE RECORDS SUMMARY | 2022-10-07 08:56 | XMS_ITS | Encounter Summary ---
:1955 Author Organization [facility] [place] [address] Care Team Providers Name Role Phone Librado Alvarado MD Primary Care Provider Encounter Details Date Type Department Care Team Description 09/18/2016 Telephone Cardiology at [facility] Benedicto Oconnor Jr., MD [address] [place] [address] [address] [place], [place] [id number] (Wo rk) Social History Tobacco Use Types Packs/Day Years Used Date Smoking Tobacco: Never Assessed Sex Assigned at Date Recorded [...] Baez MD [facility] ANESTHESIOLOGY [place], [place] [address] (Wo rk) 12/15/2022 Office Visit Cardiology Damián Hart MD [facility] [place], [place] [address] (Wo rk) 03/25/2050 Hospital Encounter Surgery Citlalli Richardson MD Vocal cord paralysis [facility] OTOLARYNGOLOGY [place], [place] [address] (Wo rk) documented as of this encounter Visit Diagnoses Not on filedocumented in this encounter Care Teams Gear And Spline Grinder Relationship Specialty Start Date End Date Librado Alvarado MD PCP - General 10/08/10 01/18/18 [address] [facility] [address] [place] [address] documented as of this encounter
--- OUTSIDE RECORDS SUMMARY | 2022-10-07 08:56 | XMS_ITS | Encounter Summary ---
:1955 Author Organization [facility] [place] [address] Care Team Providers Name Role Phone Librado Alvarado MD Primary Care Provider Reason for Visit Auth/Cert Specialty Diagnoses / Procedures Referred By Contact Refer red To Contact Diagnoses Chest pain, unspecified Chest pain Procedures PRO CATH PLMT LEFT HEART CATH & ARTS W/INJ & ANGIO IMG S&I CARDIAC CATHETERIZATION Referral ID Status Reason Start Date Expiration Date Visits Requ ested Visits Authorized [id number] 1 1 Encounter Details Date Type Department Care Team Description 09/25/2016 Surgery Bilingual Student Tutor Alejandro Laws MD CARDIAC CATHETERIZATION [facility] [place] [address] [place] [address] [phone] Social History Tobacco Use Types Packs/Day Years [...] Mcnair Jr. Patient Age: 61 y.o. Language: Gabonese Race: White Ethnicity: Not nor Admit date: [...] therapy and bring him back to the nitriles lab technician for PCI with orbital atherectomy assistance. He returned to the cardiac nitriles lab technician on 09-26-16 and underwent orbital atherectomy with [...] appointments: -During 8am-5pm Thursday through Thursday call [phone] to speak with a nurse in the cardiology clinic -All other times call [phone] and ask to speak to the paunch trimmer conservation agent. MEDICATIONS - restart your metformin on 09/28/2016 [...] Primary care provider: Cardiology: Librado Alvarado MD [phone] Follow up as planned or as needed. Dr. Mariama Bravo [phone] 11-14-2016; 10:15 am check-in General Instructions None Future Appointments and Orders Future Appointments Provider Department Dept Phone 11/14/2016 10:30 AM Mariama Bravo MD Cardiology [phone] Discharge References/Attachments None documented in this encounter Discharge Instructions Patient InstructionsTahmina Leone MD - 09/26/2016 1:22 PM EST Cardiology Instructions Call your doctor if: Chest pain, dyspnea, pain or swelling in legs occurs. If you have non-emergent questions between now and the time of your follow up appointments: -During 8am-5pm Thursday through Thursday call [phone] to speak with a nurse in the cardiology clinic -All other times call [phone] and ask to speak to the paunch trimmer conservation agent. MEDICATIONS - restart your metformin on 09/28/2016 [...] Primary care provider: Cardiology: Librado Alvarado MD [phone] Follow up as planned or as needed. Dr. Mariama Bravo [phone] 11-14-2016; 10:15 am check-in AttachmentsThe following attachments cannot be sent through Care Everywhere.CAD (CORONARY ARTERY DISEASE): GENERAL INFO (OCCITAN)PCI (PERCUTANEOUS CORONARY INTERVENTION): POST-OP (OCCITAN)HEART ATTACK: MEDICINE TO REDUCE RISK (OCCITAN) documented in this encounter Medications at Time [...] plan to be broughtback to the cardiac nitriles lab technician tomorrow for PCI and intended use of [...] plan for PCI) Tahmina Leone MD Interventional Nitriles Lab Technician Mariama Bravo MD - 09/25/2016 7:51 [...] Quigley MD 7:51 AM September 25, 2016 [facility] Lab Technician Pager # [phone] I interviewed and examined Mr. Mcnair on 09/25/16. I agree with the history, physical exam findings and clinical plan as outlined above. Plan for diagnostic coronary angiography with [facility] via right radial approach for stable angina. Mariama Bravo MD [facility] Interventional Cardiology Pager [phone] documented in this encounter Miscellaneous Notes Plan of Care - Ailce Sellers RN - 09/27/2016 1:36 AM EST [...] - 09/26/2016 2:24 PM EST Burton Ethan Gillette Jr. was seen today by Cardiac Rehabilitation [...] the outpatient cardiac rehabilitation program at [facility] was discussed. Patient agrees to a referral [...] Catrachita Baez MD [facility] ANESTHESIOLOGY [place], [place] [address] (Wo rk) 12/15/2022 Office Visit Cardiology Damián Hart MD [facility] [place], [place] [address] (Wo rk) 03/25/2050 Hospital Encounter Surgery Citlalli Richardson MD Vocal cord paralysis [facility] OTOLARYNGOLOGY [place], [place] [address] (Wo rk) Scheduled Referrals Name Type Priority Associated Diagnoses Order S chedule Referral to Outpatient Referral Routine S/P coronary artery O rdered: Cardiac Rehab stent placement 09/27/2016 documented as of this encounter Procedures Procedure Name Priority Date/Time Associated Diagnosis Comme nts MECHANIC INDUSTRIAL TRUCK SCAN 09/28/2016 12:00 AM EST POCT GLUCOSE [...] STAT 09/26/2016 2:08 Results f or this [place] PM [...] Routine 09/26/2016 3:17 Results f or this [place] AM [...] STAT 09/25/2016 9:04 Results f or this [place] PM [...] documented in this encounter Results SCAN DOC: MECHANIC INDUSTRIAL TRUCK (09/28/2016 12:00 AM EST) Anatomical Region Laterality Modality Other Narrative This result has an attachment that is no t available. Scanning Provider MEDIA MGR SCAN EXT ORDR/RSLT POCT Glucose (09/27/2016 8:22 AM EST) P athologist Signature POC Glucose 159 65 - 199 [facility] mg/dL [facility] Comment: Supplemental ranges: <140 mg/dL before meals <180 mg/dL all other times of the day Specimen Anatomical Collection Method Collection Time Receive d Time (Source) Location / / Volume Laterality Blood specimen 09/27/2016 8:22 AM 016 8:22 (specimen) EST AM EST Mariama Bravo MD POINT OF CARE TEST ORDERABLE S Performing Organization Address City/State/[place] [address] EKG 12 Lead (09/27/2016 7:27 AM EST) Component Value Ref Range Test Analysis Performed Pathologis t Method Time At Signature Ventricular rate 61 BPM MUSE SYSTEM Atrial Rate 61 BPM MUSE SYSTEM P-R Interval 210 ms MUSE SYSTEM QRS Duration 96 ms MUSE SYSTEM Q-T Interval 414 ms MUSE SYSTEM QTC Calculated 416 ms MUSE SYSTEM (Bezet) Calculated P [place] 46 degrees MUSE SYSTEM Calculated R [place] -18 degrees MUSE SYSTEM Calculated T [place] -21 degrees MUSE SYSTEM INTERPRETATION Sinus rhythm [...] Signature POC Glucose 152 65 - 199 [facility] mg/dL [facility] Comment: Supplemental ranges: <140 mg/dL before meals <180 mg/dL all other times of the day Specimen Anatomical Collection Method Collection Time Receive d Time (Source) Location / / Volume Laterality Blood specimen 09/27/2016 4:19 AM 016 4:19 (specimen) EST AM EST Mariama Bravo MD POINT OF CARE TEST ORDERABLE S Performing Organization Address City/State/ZIP Code Phon e Number [address] POCT Glucose (09/27/2016 12:12 AM EST) athologist Signature POC Glucose 131 65 - 199 [facility] mg/dL [facility] Comment: Supplemental ranges: <140 mg/dL before meals <180 mg/dL all other times of the day Specimen Anatomical Collection Method Collection Time Receive d Time (Source) Location / / Volume Laterality Blood specimen 09/27/2016 12:12 6 (specimen) AM EST 12:12 AM EST Mariama Bravo MD POINT OF CARE TEST ORDERABLE S Performing Organization Address City/State/ZIP Code Phon e Number [address] POCT Glucose (09/26/2016 8:22 PM EST) athologist Signature POC Glucose 150 65 - 199 [facility] mg/dL [facility] Comment: Supplemental ranges: <140 mg/dL before meals <180 mg/dL all other times of the day Specimen Anatomical Collection Method Collection Time Receive d Time (Source) Location / / Volume Laterality Blood specimen 09/26/2016 8:22 PM 016 8:22 (specimen) EST PM EST Mariama Bravo MD POINT OF CARE TEST ORDERABLE S Performing Organization Address City/State/[place] [address] POCT Glucose (09/26/2016 4:20 PM EST) athologist Signature POC Glucose 157 65 - 199 [facility] mg/dL [facility] Comment: Supplemental ranges: <140 mg/dL before meals <180 mg/dL all other times of the day Specimen Anatomical Collection Method Collection Time Receive d Time (Source) Location / / Volume Laterality Blood specimen 09/26/2016 4:20 PM 016 4:20 (specimen) EST PM EST Mariama Bravo MD POINT OF CARE TEST ORDERABLE S Performing Organization Address City/[facility]/ZIP [place] [address] Cardiac Enzymes (09/26/2016 2:08 PM EST) athologist Signature Troponin-T <0.03 <=0.03 [facility] ng/mL [facility] Comment: 0.03 ng/mL: Represents the 99th [...] consensus document of the Joint Society of Cardiology/[place] College o f Cardiology Committee for the redefinition of myocardial infarction. ? ?Journal of the [place] College of Cardiology 2000; 36: 959-969] CK, Total 134 0 - 200 unit/L [facility]ORY Specimen Anatomical Collection Method Collection Time Receive d Time (Source) Location / / Volume Laterality Blood specimen 09/26/2016 2:08 PM 016 2:22 (specimen) EST PM EST Resulting Agency Comment Spec In Lab Mary Juárez MD CHEMISTRY ORDERABLES Performing Organization Address City/State/ZIP Code Phon e Number [place] [phone] [facility] [address] POCT Glucose (09/26/2016 1:14 PM EST) P athologist Signature POC Glucose 121 65 - 199 [facility] mg/dL [facility] Comment: Supplemental ranges: <140 mg/dL before meals <180 mg/dL all other times of the day Specimen Anatomical Collection Method Collection Time Receive d Time (Source) Location / / Volume Laterality Blood specimen 09/26/2016 1:14 PM 016 1:14 (specimen) EST PM EST Marimaa Bravo MD POINT OF CARE TEST ORDERABLE S Performing Organization Address City/State/ZIP Code Phon e Number [address] EKG 12 Lead (09/26/2016 11:03 AM EST) Component Value Ref Range Test Analysis Performed Pathologis t Method Time At Signature Ventricular rate 55 BPM MUSE SYSTEM Atrial Rate 55 BPM MUSE SYSTEM P-R Interval 216 ms MUSE SYSTEM QRS Duration 102 ms MUSE SYSTEM Q-T Interval 440 ms MUSE SYSTEM QTC Calculated 420 ms MUSE SYSTEM (Bezet) Calculated P [place] 45 degrees MUSE SYSTEM Calculated R [place] -12 degrees MUSE SYSTEM Calculated T [place] -12 degrees MUSE SYSTEM INTERPRETATION Sinus bradycardia [...] Signature POC Glucose 162 65 - 199 [facility] mg/dL [facility] Comment: Supplemental ranges: <140 mg/dL before meals <180 mg/dL all other times of the day Specimen Anatomical Collection Method Collection Time Receive d Time (Source) Location / / Volume Laterality Blood specimen 09/26/2016 10:48 6 (specimen) AM EST 10:48 AM EST Mariama Bravo MD POINT OF CARE TEST ORDERABLE S Performing Organization Address City/State/Z[place] [address] CARDIAC CATHETERIZATION (09/26/2016 10:38 AM EST) Anatomical Region Laterality Modality Other Specimen (Source) Anatomical Location Collection Method / Collectio n Time Received Time / Laterality Volume Narrative 09/26/2016 1:13 PM EST ?[facility] ? Cardiac Cathete rization/Intervention Report ? Patient Name: Gillette Jr, Burton D. ? Procedure Date: 09/26/2016 ? A #: [id number] ? Primary Physician: Mariama Bravo ? Case #: [id number] ? File Name: [id number] ? Catheterization Order Number: [id number] ? [facility] ? Final Report [place], [place] ? Patient Name: ? Burton D. Gar field Jr ? ID#: ?[id number] ? : ?1955 ? Procedure Date: ? [...] with: sta ble angina (w/i 42 days). [place] ?Cardiovascular Society angina c lass was II. [...] might be different from the original. [facility] Cardiac Catheterization/Intervention Re port Patient Name: Burton Mcnair Jr Procedure Date: 09/26/2016 A #: [id number] Primary Physician: Mariama Bravo Case #: [id number] File Name: [id number] Catheterization Order Number: [id number] [facility] Final Report [place], [place] Patient Name: Burton Mcnair Jr ID# : [id number] : 1955 Procedure Date: September 26, 2016 [...] with: stable yo na (w/i 42 days). [place] Cardiovascular Society angina class was II. This [...] procedure. Dr. Mariama Bravo M.D. performed the josel nary angiography, atherectomy-coronary, stent insertion-c oronary and access site angiography. Dr. Rigoberto Wyatt M.D. performed the [facility], atherectomy-coronary and stent insertio n-coronary. Mariama Bravo M.D. Electronically Signed by: Fox Payne Report Finalized: 09/26/2016 12:57 Report Last Ammended: 01/05/2017 15:09 Mariama Bravo MD CARDIAC CATH ORDERABLES POCT Glucose (09/26/2016 7:55 AM EST) athologist Signature POC Glucose 175 65 - 199 [facility] mg/dL [facility] Comment: Supplemental ranges: <140 mg/dL before meals <180 mg/dL all other times of the day Specimen Anatomical Collection Method Collection Time Receive d Time (Source) Location / / Volume Laterality Blood specimen 09/26/2016 7:55 AM 016 7:55 (specimen) EST AM EST Mariama Bravo MD POINT OF CARE TEST ORDERABLE S Performing Organization Address City/State/ZIP [place] [address] Cardiac Enzymes (09/26/2016 3:17 AM EST) athologist Signature Troponin-T <0.03 <=0.03 [facility] ng/mL [facility] Comment: 0.03 ng/mL: Represents the 99th [...] consensus document of the Joint Society of Cardiology/[place] College o f Cardiology Committee for the redefinition of myocardial infarction. ? ?Journal of the [place] College of Cardiology 2000; 36: 959-969] CK, Total 146 0 - 200 unit/L [facility] Specimen Anatomical Collection Method Collection Time Receive d Time (Source) Location / / Volume Laterality Blood specimen Venous Draw / 09/26/2016 3:17 AM 2015 3:42 (specimen) Unknown EST AM EST Resulting Agency Comment Spec In Lab Mariama Bravo MD CHEMISTRY ORDERABLES Performing Organization Address City/State/ZIP Code Phon e Number [place] [phone] Differential, Automated (09/26/2016 3:17 AM EST) P athologist Signature Neutrophils % 60.8 % [facility] Neutr Abs (ANC) 2.79 1.70 - [facility] 6.10 [facility] x10(3)/[facility] LABORATORY Lymphocytes % 28.1 % [facility] Lymphocytes Abs 1.3 0.9 - 3.2 [facility] x10(3)/[facility] LABORATORY Monocytes % 8.9 % [facility] Monocyte Abs 0.4 0.3 - 0.9 [facility] x10(3)/[facility] LABORATORY Eosinophils % 1.3 % [facility] Eosinophils Abs 0.1 0.0 - 0.4 [facility] x10(3)/[facility] LABORATORY Basophils % 0.7 % [facility] Basophils Abs 0.0 0.0 - 0.1 [facility] x10(3)/[facility] LABORATORY Immature Gran % 0.20 % [facility] Comment: Immature granulocytes(IG's)percentage an d absolute count will include metamyelocytes, myelocytes, and promyelo cytes. Blood smears from CBCs yielding IG's will be scanned manually for concor dance. If this scan disagrees with the automated IG or if promyelocytes are not ed, a manual differential will be performed. Nikole Gran Abs 0.01 0.00 - 0.04 x10(3)/[facility] Y [facility] LABORATORY Specimen Anatomical Collection Method Collection Time Receive d Time (Source) Location / / Volume Laterality Blood specimen 09/26/2016 3:17 AM 016 3:42 (specimen) EST AM EST Resulting Agency Comment Spec In Lab Mariama Bravo MD HEMATOLOGY ORDERABLES Performing Organization Address City/State/ZIP Code Phon e Number [address] (ABNORMAL) Hemogram (09/26/2016 3:17 AM EST) Analysis Performed At Patho logist Time Signature WBC 4.6 4.0 - 9.5 [facility] x10(3)/[facility] LABORATORY RBC 3.97 (L) 4.58 - [place] OLY 5.54 [facility] x10(6)/[facility] LABORATORY Hemoglobin 12.5 (L) 13.7 - [facility] 16.5 gm/dL [facility] LAB[facility]ORY Hematocrit 35.3 (L) 40.5 - [facility] 48.5 % [facility] MCV 88.9 82.9 - [facility] 93.1 [facility] LABORATORY MCH 31.5 27.5 - [place] LOY 32.1 pg [facility] MCHC 35.4 32.0 - [place] LOY 35.7 gm/dL [facility] Platelets 115 (L) 145 - 357 [facility] x10(3)/[facility] LABORATORY RDWSD 37.6 36.0 - [facility] 45.0 [facility] LABORATORY RDWCV 11.7 11.4 - [facility] LOY 13.8 % [facility] MPV 9.6 7.6 - 12.9 [facility] LABORATORY nRBC % Auto 0.0 % [facility] LABORATORY nRBC Abs Auto 0.000 0.000 - [facility] LOY 0.000 [facility] x10(3)/[facility] LABORATORY Specimen Anatomical Collection Method Collection Time Receive d Time (Source) Location / / Volume Laterality Blood specimen 09/26/2016 3:17 AM 016 3:42 (specimen) EST AM EST Resulting Agency Comment Spec In Lab Mariama Bravo MD HEMATOLOGY ORDERABLES Performing Organization Address City/State/[place] [address] (ABNORMAL) Basic Metabolic Panel (non-fasting) (09/26/2016 3:17 AM EST) P athologist Signature Glucose Lvl 145 65 - 199 [facility] mg/dL [facility] Comment: Diabetes: >=200 mg/dL plus symp toms BUN 14 10 - 20 mg/dL [facility] Creatinine 0.79 (L) 0.80 - 1.50 mg/dL [facility] Comment: Please note that the pediatric reference intervals supplied above were not validated at [facility]. Results from pediatri c patients should be interpreted in conjunction to the patient's age, height and muscle mass. Sodium 141 135 - 145 mmol/L [facility] Potassium 4.1 3.5 - 5.0 mmol/L [facility] Comment: Please note: ??Patients with WBC >100,00 0 may have falsely elevated Potassium levels. ??For accurate Potassium quantif ication in these patients send serum separator tube (gold top) for subsequent determinations. ??Contact the Clinical Chemistry Laboratory if there are any qu estions. Chloride 103 98 - 107 mmol/L [facility] CO2 24 22 - 31 mmol/L [facility] Anion Gap 14 5 - 15 mmol/L [facility] Calcium 8.5 8.5 - 10.5 mg/dL [facility] Estimated GFR >60 >=60 [facility] [...] the following links into your internet browser. [email or web address] Specimen Anatomical Collection Method Collection Time Receive d Time (Source) Location / / Volume Laterality Blood specimen 09/26/2016 3:17 AM 11/11/2 016 3:42 (specimen) EST AM EST Resulting Agency Comment Spec In Lab Mariama Bravo MD CHEMISTRY ORDERABLES Performing Organization Address City/State/ZIP Code Phon e Number [address] POCT Glucose (09/26/2016 12:07 AM EST) athologist Signature POC Glucose 135 65 - 199 [facility] LOY mg/dL [facility] Comment: Supplemental ranges: <140 mg/dL before meals <180 mg/dL all other times of the day Specimen Anatomical Collection Method Collection Time Receive d Time (Source) Location / / Volume Laterality Blood specimen 09/26/2016 12:07 6 (specimen) AM EST 12:07 AM EST Mariama Bravo MD POINT OF CARE TEST ORDERABLE S Performing Organization Address City/State/ZIP Code Phon e Number [address] Cardiac Enzymes (09/25/2016 9:04 PM EST) athologist Signature Troponin-T <0.03 <=0.03 [facility] ng/mL [facility] Comment: 0.03 ng/mL: Represents the 99th [...] consensus document of the Joint Society of Cardiology/[place] College o f Cardiology Committee for the redefinition of myocardial infarction. ? ?Journal of the [place] College of Cardiology 2000; 36: 959-969] CK, Total 183 0 - 200 unit/L [facility] Specimen Anatomical Collection Method Collection Time Receive d Time (Source) Location / / Volume Laterality Blood specimen 09/25/2016 9:04 PM 016 9:15 (specimen) EST PM EST Resulting Agency Comment Spec In Lab Mary Juárez MD CHEMISTRY ORDERABLES Performing Organization Address City/[facility]/ZIP Code Phon e Number [address] POCT Glucose (09/25/2016 8:34 PM EST) P athologist Signature POC Glucose 97 65 - 199 [facility] mg/dL [facility] Comment: Supplemental ranges: <140 mg/dL before meals <180 mg/dL all other times of the day Specimen Anatomical Collection Method Collection Time Receive d Time (Source) Location / / Volume Laterality Blood specimen 09/25/2016 8:34 PM 016 8:34 (specimen) EST PM EST Mariama Bravo MD POINT OF CARE TEST ORDERABLE S Performing Organization Address City/[facility]/ZIP Code Phon e Number [address] POCT Glucose (09/25/2016 5:04 PM EST) athologist Signature POC Glucose 182 65 - 199 [facility] mg/dL [facility] Comment: Supplemental ranges: <140 mg/dL before meals <180 mg/dL all other times of the day Specimen Anatomical Collection Method Collection Time Receive d Time (Source) Location / / Volume Laterality Blood specimen 09/25/2016 5:04 PM 016 5:04 (specimen) EST PM EST Mariama Bravo MD POINT OF CARE TEST ORDERABLE S Performing Organization Address City/[facility]/ZIP [place] [address] EKG 12 Lead (09/25/2016 8:11 AM EST) Component Value Ref Range Test Analysis Performed Pathologis t Method Time At Signature Ventricular rate 58 BPM MUSE SYSTEM Atrial Rate 58 BPM MUSE SYSTEM P-R Interval 198 ms MUSE SYSTEM QRS Duration 86 ms MUSE SYSTEM Q-T Interval 428 ms MUSE SYSTEM QTC Calculated 420 ms MUSE SYSTEM (Bezet) Calculated P [place] 51 degrees MUSE SYSTEM Calculated R [place] -14 degrees MUSE SYSTEM Calculated T [place] -20 degrees MUSE SYSTEM INTERPRETATION Sinus bradycardia [...] Signature POC Glucose 154 65 - 199 [facility] mg/dL [facility] Comment: Supplemental ranges: <140 mg/dL before meals <180 mg/dL all other times of the day Specimen Anatomical Collection Method Collection Time Receive d Time (Source) Location / / Volume Laterality Blood specimen 09/25/2016 6:43 AM 016 6:43 (specimen) EST AM EST Mariama Bravo MD POINT OF CARE TEST ORDERABLE S Performing Organization Address City/State/ZIP Code Phon e Number [place] [address] documented in this encounter [...] Enriquez RN) 0857 (Given - Provider: Macey Phelps RN) 40 mg, Oral, DAILY, First dose [...] (CANCELED) 2038 (Give n - Provider: Azra oRberts RN) 0843 (MAR Hold - Provider: Admin [...] 0804 (Given - Provider: Pili Enriquez RN)0843 (MAR Hold - Provider: Admin Adt - Reason: Transfer to a Procedural area)1307 ([facility] Unhold - Provider: Admin Adt)2100 (Not Given [...] Routine zolpidem (AMBIEN) tablet 5 mg (COMPLETED) 2224 (Given - Provider: Azra Roberts, ESTEFANIA) 5 [...] 1050 (New Bag - Provider: Azra Fan, ESTEFANIA) 100 mL/hr, at 100 mL/hr, Intravenous, CO NTINUOUS, Starting Thu09/26/16 at 1115, Until Thu09/26/16 at 1514, Recovery ([facility]ospital [facility]) PRN Medication Order 09/25/2016 09/26/2016 09/27/2016 acetaminophen (TYLENOL) tablet 650 mg 08 43 (JAN Hold - Provider: Admin Adt - Reason: Transfer to a Procedural area)1307 ([facility] Unhold - Provider: Admin Adt) [...] 50% injection 25-50 mL(Linked Group 3) 0843 ([facility] Hold - Provider: Admin Adt - Reason: Transfer to a Procedural area)1307 ([facility] Unhold - Provider: Admin Adt) [...] 082 1 (Given - Provider: Slime Borges, RN)0847 (Given - Provider: Slime Borges, RN) ONCE PRN, Starting Myrna 09/25/16 at [...] area)1307 (JAN Unhold - Provider: Admin Adt) 3 mg (0.3 mL), Subcutaneous, ONCE PRN, 1 dose, Starting Myrna 09/25/16 at 0704, Until 09/27/16 at 1428, with discomfort with PIV insertion, Routine lidocaine (XYLOCAINE) 10 mg/mL (1 %) injection 3 mg 0843 (JAN Hold - Provider: Admin Adt - Reason: Transfer to a Procedural area)1307 (JAN Unhold - Provider: Admin Adt) 3 mg (0.3 mL), Subcutaneous, ONCE PRN, 1 dose, Starting Myrna 09/25/16 at 0914, Until 09/27/16 at 1428, for discomfort with PIV insertion, Routine midazolam (PF) (VERSED) 1 mg/mL multi-dose injection ( CANCELED) 0821 (Given - Provider: Slime Borges, RN)0847 (Given - Provider: Slime Borges, RN) ONCE PRN, Starting Myrna 09/25/16 at [...] dilution (CANCELED) 1016 (Given - Provider: Stan Borges, ESTEFANIA) ONCE PRN, Starting Thu09/26/16 at 1016, Until [...]
Routine documented in this encounter Care Teams Second Facing Baster Relationship Specialty Start Date End Date Librado Alvarado MD PCP - General 10/08/10 01/18/18 [address] [facility] [address] [place] [address] documented as of this encounter
--- OUTSIDE RECORDS SUMMARY | 2022-10-07 08:56 | XMS_ITS | Encounter Summary ---
:1955 Author Organization [facility] [place] [address] Care Team Providers Name Role Phone Librado Alvarado MD Primary Care Provider Reason for Visit Reason Comments Establish Care Chest Pain, symptoms getting worse Consultation (Routine) - Closed Specialty Diagnoses / Procedures Referred By Contact Refer red To Contact Cardiology Diagnoses Chest pain without exertion Librado Alvarado MD Pollak, Emil M Jr., MD [address] [facility] [facility] [address] [address] [place] [address] [place] [address] [place] [address] Fax: Referral ID Status Reason Start Date Expiration Date Visits V isits Requested Authorized [id number] Closed Consult, 09/18/2016 09/18/2017 1 [facility] Encounter Details Date Type Department Care Team Description 09/19/2016 Office Visit Cardiology at [facility] Chest pain, unspecified type; Sami Hanks MD Essential hypertension; [address] [facility] Type 2 diabetes mellitus without complication, without long-term current use of insulin; [place] [address] [place] [address] [id number] Social History Tobacco Use Types Packs/Day Years [...] He had an equivocal ETT with Dr. 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 Cardiac Cathete rization/Intervention Report ? Patient Name: Burton Mcnair Jr. ? Procedure Date: 09/25/2016 ? A #: [id number] ? Primary Physician: Shelly, Mariama ? Case #: [id number] ? File Name: [id number] ? Catheterization Order Number: [id number] ? [facility] ? Final Report [place], [place] ? Patient Name: ? Burton D. Gar field Jr ? ID#: ?[id number] ? : ?1955 ? Procedure Date: ? November 10, 20 16 ?Case #: ? [id number] ? Room: ? 6 ? Case Physician: ? Richa Payne ? Start: ?08:21 ?Fellow: ? Marie joe [...] with: sta ble angina (w/i 42 days). [place] ?Cardiovascular Society angina c lass was II. [...] be different from the original. [facility] Cardiac Catheterization/Intervention Re port Patient Name: Burton Mcnair Jr Procedure Date: 09/25/2016 A #: [id number] Primary Physician: Mariama Bravo Case #: [id number] File Name: [id number] Catheterization Order Number: [id number] [facility] Lead Cytogenetic Technologist [facility] Final Report [place], [place] Patient Name: Burton Mcnair Jr ID# : [id number] : 1955 Procedure Date: September 25, 2016 [...] with: stable yo na (w/i 42 days). [place] Cardiovascular Society angina class was II. This patient was on beta blockers prior to the procedure. No str ess or imaging studies were performed prior to this procedure Technique: A 6 SLFr sheath was inserted in the rig ht radial artery utilizing the Seldinger technique. The [...] the first diagonal branch (Diagonal 1) of t LAD. 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 There was a 60% single discrete stenosi s of the mid segment of the first obtuse marginal branch (OM1) of t he LCX. The OM1 was moderate in size. [...] ecified documented in this encounter Care Teams Rag Baler Relationship Specialty Start Date End Date Librado Alvarado MD PCP - General 10/08/10 01/18/[address] [facility] [address] [place] [address] documented as of this encounter
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
--- OUTSIDE RECORDS SUMMARY | 2022-10-07 09:00 | XMS_ITS ---
:1955 Author Organization [facility] Address [address] [place] [address] Care Team Providers Name Role Phone Johnathon Welch Unavailable Unavailable PROBLEMS Type Condition ICD9-CM [id number] Onset Condition SNOMED Cod e Code Code Dates Status Problem Metatarsalgia of M77.41 Active 313 [id number] right foot Problem Plantar fasciitis M72.2 Active 12 [id number] of left foot Problem Equinus deformity M21.6X9 Active 29 [id number] of foot, acquired ALLERGIES No Known Allergies ENCOUNTERS Encounter Location Date Diagnosis [facility], [place] [address] [address], [place] [address] M72.2 ; Metatars algia of right foot M77.41 and Equinus deformity of abimael t, acquired M21.6X9 [facility], [place] [address] IMMUNIZATIONS No Known Immunizations SOCIAL HISTORY Qualifiers Date Never Smoker REASON FOR REFERRAL FUNCTIONAL STATUS PLAN OF CARE Activity Details Follow Up prn Reason: VITAL SIGNS Height 72 in 2019-09-20 Weight 224.6 lbs 2019-09-20 BMI 30.46 kg/m2 2019-09-20 Temperature 97.9 degrees Fahrenheit 2019-09-20 Heart Rate 65 /min 2019-09-20 Respiratory Rate 18 /min 2019-09-20 Blood pressure systolic 122 mm Hg 2019-09-20 Blood pressure diastolic 74 mm Hg 2019-09-20 MEDICATIONS Medication Instructions Dosage Frequency Start End Duration Statu s Date Date amLODIPine Orally Once a 1 tablet 24h 30 day(s) Acti ve Besylate 10 MG day Norvasc 10 MG Orally Once a 1 tablet 24h 30 day(s) A ctive day Lisinopril 40 MG Orally Once a 1 tablet 24h Sep, day(s ) Active day 2018 Plavix 75 MG Orally Once a 1 tablet 24h 30 day(s) Ac tive day Ranexa 500 MG Orally Twice a 1 tablet 12h 30 day(s) Active day Nitrostat 0.4 MG as directed Act jamey Clopidogrel Orally Once a 1 tablet 24h 30 day(s) Act jamey Bisulfate 75 MG day Atorvastatin Orally Once a 1 tablet 24h 30 day(s) Ac tive Calcium 80 MG day Cyanocobalamin Orally Once a 1 tablet 24h 30 day(s) Active 1000 MCG day metFORMIN HCl 500 Orally Once a 1 tablet 24h Sep, day( s) Active MG day with a meal 2018 Active Vitamin B12 1000 Orally Once a 1 tablet 24h 30 day(s ) Active MCG day Metoprolol Orally Once a 1.5 tablet 24h Acti ve Succinate ER 100 day MG PROCEDURES Procedure Date Ordered Result Body Site [facility]([id number]) Sep 20, 2019 RESULTS No Results REASON FOR VISIT foot pain, referral done, pt called to r/s due to work schedule, 09/20/2019 ABDOULAYE , missed appt, foot pain , pt has not had xrays taken recently., pt states that his feet began to hurt about a month ago.,pt has had knee replacements and now he notices the foot pain. mrr, foot pain referral done Insurance Providers [facility] Member Patient Patient Patient Patient Patient Subscriber Subscriber Subscriber Group Insurance Plan Plan Plan Plan ID Relationship Address Phone Name Date of ID Name Date of No Type Insurance Insurance Insurance Coverage to Subscriber Address Phone Name Dates S-MEDICOMP [phone] S-MEDICOMP self VINOD [id number] OF [address] [place] [address] SELF PAY self VINOD 1955 AFTER [employer] [employer] [place] [address] SELF PAY self VINOD 1955 [place] [address] INSURANCE MEDICARE 3000 [address] MEDICARE self VINOD 1955 [id number] [facility] [id number] MEDICARE 3000 [address] MEDICARE self VINOD 1955 [id number] [facility] [id number]
[2022-10-14 08:40] VITALS: BP 148/83; PULSE 80
== END 2022-10-15 23:59 | disposition home or self-care (01) ==
LOC: CR 08:41
PROVIDERS: PCP Family Medicine; Visit Provider Internal Medicine Cardiovascular Disease
DX: R69 Illness, unspecified (principal)

== ENCOUNTER 2022-11-13 08:49 | Outpatient (RCR) | payer SELFPAY ==
[2022-10-16 00:13] VITALS: BP 148/83; PULSE 80
[2022-10-21 10:10] VITALS: BP 152/86; PULSE 80
[2022-10-23 09:00] VITALS: BP 154/87; PULSE 79
[2022-10-28 08:51] VITALS: BP 151/82; PULSE 78
[2022-10-30 08:49] VITALS: BP 148/84; PULSE 82
[2022-11-04 08:51] VITALS: BP 151/89; PULSE 77
[2022-11-06 09:26] VITALS: BP 164/94; PULSE 77
[2022-11-11 08:38] VITALS: BP 166/88; PULSE 77
[2022-11-13 08:48] VITALS: BP 151/84; PULSE 58
== END 2022-11-15 23:59 | disposition home or self-care (01) ==
LOC: CR 08:49
PROVIDERS: PCP Family Medicine; Visit Provider Internal Medicine Cardiovascular Disease
DX: R69 Illness, unspecified (principal)

== ENCOUNTER 2022-12-16 09:00 | Outpatient (RCR) | payer SELFPAY ==
[2022-11-16 00:07] VITALS: BP 151/84; PULSE 58
[2022-11-18 09:02] VITALS: BP 149/87; PULSE 78
[2022-11-20 08:37] VITALS: BP 155/83; PULSE 76
[2022-12-02 09:10] VITALS: BP 159/96; PULSE 85
[2022-12-09 09:04] VITALS: BP 145/94; PULSE 73
[2022-12-16 09:27] VITALS: BP 154/91; PULSE 80
== END 2022-12-16 23:59 | disposition home or self-care (01) ==
LOC: CR 09:00
PROVIDERS: PCP Family Medicine; Visit Provider Internal Medicine Cardiovascular Disease
DX: R69 Illness, unspecified (principal)

== ENCOUNTER 2023-01-13 09:00 | Outpatient (RCR) | payer SELFPAY ==
[2022-12-23 13:52] VITALS: BP 166/93; PULSE 79
[2022-12-25 13:18] VITALS: BP 155/87; PULSE 82
[2022-12-30 08:59] VITALS: BP 155/89; PULSE 76
[2023-01-01 08:57] VITALS: BP 147/85; PULSE 76
[2023-01-01 09:42] VITALS: BP 136/77
[2023-01-06 09:03] VITALS: BP 144/85; PULSE 77
[2023-01-13 08:55] VITALS: BP 152/86; PULSE 81
== END 2023-01-13 23:59 | disposition home or self-care (01) ==
LOC: CR 09:00
PROVIDERS: PCP Family Medicine; Visit Provider Internal Medicine Cardiovascular Disease
DX: R69 Illness, unspecified (principal)

== ENCOUNTER 2023-02-12 09:02 | Outpatient (RCR) | payer SELFPAY ==
[2023-01-14 00:08] VITALS: BP 152/86; PULSE 81
[2023-01-20 09:03] VITALS: BP 160/88; PULSE 82
[2023-01-22 09:04] VITALS: BP 143/84; PULSE 83
[2023-01-27 09:12] VITALS: BP 157/95; PULSE 91
[2023-01-29 09:00] VITALS: BP 151/90; PULSE 81
[2023-02-03 09:28] VITALS: BP 160/91; PULSE 85
[2023-02-05 09:08] VITALS: BP 135/77; PULSE 81
[2023-02-10 09:13] VITALS: BP 159/81; PULSE 79
[2023-02-12 08:59] VITALS: BP 152/75; PULSE 76
[2023-02-17 08:52] VITALS: BP 157/81; PULSE 76
== END 2023-02-13 23:59 | disposition home or self-care (01) ==
LOC: CR 09:02
PROVIDERS: PCP Family Medicine; Visit Provider Internal Medicine Cardiovascular Disease

== ENCOUNTER 2023-03-12 09:05 | Outpatient (RCR) | payer SELFPAY ==
[2023-02-14 00:17] VITALS: BP 152/75; PULSE 76
[2023-02-19 08:51] VITALS: BP 158/65; PULSE 57
[2023-02-19 09:37] VITALS: BP 146/79; PULSE 78
[2023-02-24 08:54] VITALS: BP 153/81; PULSE 76
[2023-02-26 09:02] VITALS: BP 140/78; PULSE 77
[2023-03-03 08:58] VITALS: BP 152/78; PULSE 76
[2023-03-05 08:59] VITALS: BP 146/76; PULSE 78
[2023-03-10 09:57] VITALS: BP 143/75; PULSE 80
[2023-03-12 09:13] VITALS: BP 158/90; PULSE 60
== END 2023-03-15 23:59 | disposition home or self-care (01) ==
LOC: CR 09:05
PROVIDERS: PCP Family Medicine; Visit Provider Internal Medicine Cardiovascular Disease
DX: R69 Illness, unspecified (principal)

== ENCOUNTER 2023-04-14 09:26 | Outpatient (RCR) | payer SELFPAY ==
[2023-03-16 00:07] VITALS: BP 158/90; PULSE 60
[2023-03-17 09:12] VITALS: BP 141/72; PULSE 76
[2023-03-19 09:13] VITALS: BP 144/73; PULSE 77
[2023-03-24 09:13] VITALS: BP 150/84; PULSE 76
[2023-03-26 09:28] VITALS: BP 158/80; PULSE 80
[2023-03-31 09:01] VITALS: BP 152/78; PULSE 76
[2023-04-07 08:52] VITALS: BP 136/74; PULSE 83
[2023-04-09 09:49] VITALS: BP 164/88; PULSE 78
[2023-04-14 09:32] VITALS: BP 161/97; PULSE 80
== END 2023-04-15 23:59 | disposition home or self-care (01) ==
LOC: CR 09:26
PROVIDERS: PCP Family Medicine; Visit Provider Internal Medicine Cardiovascular Disease

== ENCOUNTER 2023-05-12 09:07 | Outpatient (RCR) | payer SELFPAY ==
[2023-04-16 00:15] VITALS: BP 161/97; PULSE 80
[2023-04-21 09:16] VITALS: BP 134/78; PULSE 82
[2023-04-23 08:55] VITALS: BP 145/84; PULSE 83
[2023-04-30 09:00] VITALS: BP 149/83; PULSE 82
[2023-05-05 09:09] VITALS: BP 149/84; PULSE 81
[2023-05-12 09:13] VITALS: BP 151/84; PULSE 80
== END 2023-05-15 23:59 | disposition home or self-care (01) ==
LOC: CR 09:07
PROVIDERS: PCP Family Medicine; Visit Provider Internal Medicine Cardiovascular Disease
DX: R69 Illness, unspecified (principal)

== ENCOUNTER 2023-06-11 09:04 | Outpatient (RCR) | payer SELFPAY ==
[2023-05-16 00:07] VITALS: BP 151/84; PULSE 80
[2023-05-21 08:55] VITALS: BP 148/87; PULSE 81
[2023-05-26 09:29] VITALS: BP 155/78; PULSE 72
[2023-05-28 09:33] VITALS: BP 144/85; PULSE 81
[2023-06-02 09:11] VITALS: BP 142/87; PULSE 75
[2023-06-04 09:16] VITALS: BP 152/83; PULSE 69
[2023-06-11 09:09] VITALS: BP 154/87; PULSE 80
== END 2023-06-15 23:59 | disposition home or self-care (01) ==
LOC: CR 09:04
PROVIDERS: PCP Family Medicine; Visit Provider Internal Medicine Cardiovascular Disease
DX: R69 Illness, unspecified (principal)

== ENCOUNTER 2023-07-16 09:06 | Outpatient (RCR) | payer SELFPAY ==
[2023-06-16 00:03] VITALS: BP 154/87; PULSE 80
[2023-06-16 09:11] VITALS: BP 146/80; PULSE 78
[2023-06-18 09:21] VITALS: BP 153/83; PULSE 67
[2023-06-25 09:32] VITALS: BP 147/86; PULSE 79
[2023-06-30 09:24] VITALS: BP 151/87; PULSE 82
[2023-07-02 09:13] VITALS: BP 158/88; PULSE 82
[2023-07-07 09:00] VITALS: BP 148/88; PULSE 60
[2023-07-09 09:05] VITALS: BP 123/82; PULSE 80
[2023-07-14 08:55] VITALS: BP 150/83; PULSE 83
[2023-07-16 09:28] VITALS: BP 149/88; PULSE 79
== END 2023-07-16 23:59 | disposition home or self-care (01) ==
LOC: CR 09:06
PROVIDERS: PCP Family Medicine; Visit Provider Internal Medicine Cardiovascular Disease
DX: R69 Illness, unspecified (principal)

== ENCOUNTER 2023-08-13 09:11 | Outpatient (RCR) | payer SELFPAY ==
[2023-07-17 00:03] VITALS: BP 149/88; PULSE 79
[2023-07-21 09:03] VITALS: BP 143/83; PULSE 77
[2023-07-23 09:30] VITALS: BP 141/83; PULSE 81
[2023-07-28 09:08] VITALS: BP 140/88; PULSE 71
[2023-07-30 10:18] VITALS: BP 139/84; PULSE 75
[2023-08-04 09:07] VITALS: BP 148/82; PULSE 84
[2023-08-06 09:17] VITALS: BP 135/81; PULSE 78
[2023-08-11 09:14] VITALS: BP 155/84; PULSE 74
[2023-08-13 09:13] VITALS: BP 142/89; PULSE 74
[2023-08-20 09:13] VITALS: BP 151/87; PULSE 79
== END 2023-08-15 23:59 | disposition home or self-care (01) ==
LOC: CR 09:11
PROVIDERS: PCP Family Medicine; Visit Provider Internal Medicine Cardiovascular Disease
DX: R69 Illness, unspecified (principal)

== ENCOUNTER 2023-09-15 09:06 | Outpatient (RCR) | payer SELFPAY ==
[2023-08-16 00:02] VITALS: BP 142/89; PULSE 74
[2023-08-27 09:34] VITALS: BP 147/85; PULSE 80
[2023-09-01 09:09] VITALS: BP 147/84; PULSE 81
[2023-09-03 09:30] VITALS: BP 172/92; PULSE 79
[2023-09-08 09:18] VITALS: BP 143/82; PULSE 78
[2023-09-10 08:58] VITALS: BP 134/78; PULSE 83
[2023-09-15 09:01] VITALS: BP 153/83; PULSE 83
[2023-09-17 09:09] VITALS: BP 158/90; PULSE 79
== END 2023-09-15 23:59 | disposition home or self-care (01) ==
LOC: CR 09:06
PROVIDERS: PCP Family Medicine; Visit Provider Internal Medicine Cardiovascular Disease
DX: R69 Illness, unspecified (principal)

== ENCOUNTER 2023-10-15 09:14 | Outpatient (RCR) | payer SELFPAY ==
[2023-09-16 00:15] VITALS: BP 142/89; PULSE 74
[2023-09-29 09:13] VITALS: BP 152/80; PULSE 79
[2023-10-01 09:29] VITALS: BP 154/92; PULSE 87
[2023-10-13 09:11] VITALS: BP 153/86; PULSE 75
[2023-10-15 08:59] VITALS: BP 163/84; PULSE 82
[2023-10-15 09:39] VITALS: BP 147/85
== END 2023-10-15 23:59 | disposition home or self-care (01) ==
LOC: CR 09:14
PROVIDERS: PCP Family Medicine; Visit Provider Internal Medicine Cardiovascular Disease
DX: R69 Illness, unspecified (principal)

== ENCOUNTER 2023-11-10 09:03 | Outpatient (RCR) | payer SELFPAY ==
[2023-10-16 00:22] VITALS: BP 142/89; PULSE 74
[2023-10-20 11:49] VITALS: BP 152/84; PULSE 78
[2023-10-22 08:49] VITALS: BP 150/88; PULSE 81
[2023-10-29 10:56] VITALS: BP 156/83; PULSE 77
[2023-11-10 09:05] VITALS: BP 170/82; PULSE 76
== END 2023-11-15 23:59 | disposition home or self-care (01) ==
LOC: CR 09:03
PROVIDERS: PCP Family Medicine; Visit Provider Internal Medicine Cardiovascular Disease
DX: R69 Illness, unspecified (principal)

== ENCOUNTER 2023-12-15 09:01 | Outpatient (RCR) | payer SELFPAY ==
[2023-11-16 00:21] VITALS: BP 142/89; PULSE 74
[2023-11-17 09:16] VITALS: BP 156/90; PULSE 75
[2023-11-19 09:42] VITALS: BP 145/86; PULSE 82
[2023-12-01 09:09] VITALS: BP 137/76; PULSE 78
[2023-12-03 08:53] VITALS: BP 148/81; PULSE 80
[2023-12-10 09:19] VITALS: BP 149/78; PULSE 88
[2023-12-15 08:59] VITALS: BP 146/80; PULSE 80
== END 2023-12-16 23:59 | disposition home or self-care (01) ==
LOC: CR 09:01
PROVIDERS: PCP Family Medicine; Visit Provider Internal Medicine Interventional Cardiology
DX: R69 Illness, unspecified (principal)

== ENCOUNTER 2024-01-07 08:52 | Outpatient (RCR) | payer SELFPAY ==
[2023-12-17 00:25] VITALS: BP 142/89; PULSE 74
[2023-12-17 08:51] VITALS: BP 162/88; PULSE 76
[2023-12-22 09:00] VITALS: BP 149/76; PULSE 77
[2023-12-24 09:50] VITALS: BP 143/87; PULSE 78
[2023-12-29 09:00] VITALS: BP 144/88; PULSE 79
[2023-12-31 09:07] VITALS: BP 140/77; PULSE 74; O2SAT 93
[2024-01-05 13:19] VITALS: BP 151/86; PULSE 76
[2024-01-07 09:20] VITALS: BP 150/88; PULSE 78
== END 2024-01-14 23:59 | disposition home or self-care (01) ==
LOC: CR 08:52
PROVIDERS: PCP Family Medicine; Visit Provider Internal Medicine Cardiovascular Disease
DX: R69 Illness, unspecified (principal)

== ENCOUNTER 2024-02-11 09:01 | Outpatient (RCR) | payer SELFPAY ==
[2024-01-15 00:24] VITALS: BP 142/89; PULSE 74
[2024-01-28 09:38] VITALS: BP 153/70; PULSE 74
[2024-02-02 09:00] VITALS: BP 155/82; PULSE 74
[2024-02-09 08:59] VITALS: BP 146/79; PULSE 77
[2024-02-11 09:35] VITALS: BP 161/83; PULSE 79
== END 2024-02-14 23:59 | disposition home or self-care (01) ==
LOC: CR 09:01
PROVIDERS: PCP Family Medicine; Visit Provider Internal Medicine Cardiovascular Disease
DX: R69 Illness, unspecified (principal)

== ENCOUNTER 2024-03-15 09:03 | Outpatient (RCR) | payer SELFPAY ==
[2024-02-16 10:19] VITALS: BP 151/89; PULSE 80
[2024-02-23 09:17] VITALS: BP 160/83; PULSE 79
[2024-02-25 09:02] VITALS: BP 161/86; PULSE 80
[2024-03-01 08:59] VITALS: BP 123/76; PULSE 76
[2024-03-03 08:59] VITALS: BP 129/65; PULSE 74
[2024-03-08 09:03] VITALS: BP 139/79; PULSE 77
[2024-03-10 09:13] VITALS: BP 150/77; PULSE 74
[2024-03-15 08:58] VITALS: BP 150/81; PULSE 76
== END 2024-03-15 23:59 | disposition home or self-care (01) ==
LOC: CR 09:03
PROVIDERS: PCP Family Medicine; Visit Provider Internal Medicine Cardiovascular Disease
DX: R69 Illness, unspecified (principal)

== ENCOUNTER 2024-04-14 09:21 | Outpatient (RCR) | payer SELFPAY ==
[2024-03-16 00:12] VITALS: BP 150/81; PULSE 76
[2024-03-17 09:01] VITALS: BP 143/81; PULSE 81; O2SAT 94
[2024-03-22 09:11] VITALS: BP 151/80; PULSE 76
[2024-03-24 10:41] VITALS: BP 140/84; PULSE 83
[2024-03-31 08:59] VITALS: BP 143/77; PULSE 78
[2024-04-07 10:10] VITALS: BP 153/82; PULSE 80
[2024-04-12 09:15] VITALS: BP 147/81; PULSE 76
[2024-04-14 09:14] VITALS: BP 164/82; PULSE 71
== END 2024-04-15 23:59 | disposition home or self-care (01) ==
LOC: CR 09:21
PROVIDERS: PCP Family Medicine; Visit Provider Internal Medicine Cardiovascular Disease
DX: R69 Illness, unspecified (principal)

== ENCOUNTER 2024-05-12 09:03 | Outpatient (RCR) | payer SELFPAY ==
[2024-04-16 00:22] VITALS: BP 150/81; PULSE 76
[2024-04-19 09:22] VITALS: BP 157/84; PULSE 75
[2024-04-21 09:21] VITALS: BP 145/83; PULSE 75
[2024-04-26 09:05] VITALS: BP 153/92; PULSE 73
[2024-05-03 09:16] VITALS: BP 158/90; PULSE 76
[2024-05-05 09:23] VITALS: BP 159/94; PULSE 74
[2024-05-10 09:20] VITALS: BP 167/90; PULSE 80
[2024-05-12 09:13] VITALS: BP 147/79; PULSE 72
== END 2024-05-15 23:59 | disposition home or self-care (01) ==
LOC: CR 09:03
PROVIDERS: PCP Family Medicine; Visit Provider Internal Medicine Cardiovascular Disease
DX: R69 Illness, unspecified (principal)

== ENCOUNTER 2024-06-09 09:00 | Outpatient (RCR) | payer SELFPAY ==
[2024-05-16 00:07] VITALS: BP 150/81; PULSE 76
[2024-05-17 10:00] VITALS: BP 133/71; PULSE 73
[2024-05-24 09:02] VITALS: BP 154/86; PULSE 72; O2SAT 97
[2024-05-31 09:22] VITALS: BP 149/79; PULSE 71
[2024-06-02 12:56] VITALS: BP 162/93; PULSE 73
[2024-06-07 09:04] VITALS: BP 148/83; PULSE 72
[2024-06-09 09:00] VITALS: BP 144/87; PULSE 74
== END 2024-06-15 23:59 | disposition home or self-care (01) ==
LOC: CR 09:00
PROVIDERS: PCP Family Medicine; Visit Provider Internal Medicine Cardiovascular Disease
DX: R69 Illness, unspecified (principal)

== ENCOUNTER 2024-07-14 08:52 | Outpatient (RCR) | payer SELFPAY ==
[2024-06-16 00:07] VITALS: BP 150/81; PULSE 76
[2024-06-16 08:59] VITALS: BP 145/80; PULSE 73
[2024-06-21 09:19] VITALS: BP 148/75; PULSE 72
[2024-06-23 10:19] VITALS: BP 147/86; PULSE 73
[2024-06-28 09:18] VITALS: BP 152/87; PULSE 75
[2024-06-30 09:06] VITALS: BP 148/85; PULSE 75
[2024-07-05 10:08] VITALS: BP 138/83; PULSE 74
[2024-07-07 08:54] VITALS: BP 144/82; PULSE 72
[2024-07-12 09:12] VITALS: BP 149/83; PULSE 73
[2024-07-14 09:06] VITALS: BP 159/91; PULSE 81
== END 2024-07-16 23:59 | disposition home or self-care (01) ==
LOC: CR 08:52
PROVIDERS: PCP Family Medicine; Visit Provider Internal Medicine Cardiovascular Disease
DX: R69 Illness, unspecified (principal)

== ENCOUNTER 2024-08-09 10:18 | Outpatient (RCR) | payer SELFPAY ==
[2024-07-17 00:22] VITALS: BP 150/81; PULSE 76
[2024-07-21 09:15] VITALS: BP 156/85; PULSE 75; O2SAT 96
[2024-07-26 09:14] VITALS: BP 159/88; PULSE 78
[2024-07-28 09:24] VITALS: BP 148/83; PULSE 70
[2024-08-02 09:18] VITALS: BP 155/79; PULSE 78
[2024-08-04 09:23] VITALS: BP 162/83; PULSE 77
[2024-08-09 10:26] VITALS: BP 158/86; PULSE 77
== END 2024-08-15 23:59 | disposition home or self-care (01) ==
LOC: CR 10:18
PROVIDERS: PCP Family Medicine; Visit Provider Internal Medicine Cardiovascular Disease
DX: R69 Illness, unspecified (principal)

== ENCOUNTER 2024-09-15 09:00 | Outpatient (RCR) | payer SELFPAY ==
[2024-08-18 09:00] VITALS: BP 153/78; PULSE 72; O2SAT 94
[2024-08-23 09:07] VITALS: BP 158/86; PULSE 89
[2024-08-25 09:33] VITALS: BP 163/85; PULSE 84
[2024-08-30 09:24] VITALS: BP 168/72; PULSE 78
[2024-09-06 10:17] VITALS: BP 148/83; PULSE 76
[2024-09-13 09:05] VITALS: BP 146/74; PULSE 77
[2024-09-15 09:19] VITALS: BP 130/68; PULSE 72
== END 2024-09-15 23:59 | disposition home or self-care (01) ==
LOC: CR 09:00
PROVIDERS: PCP Family Medicine; Visit Provider Internal Medicine Cardiovascular Disease

== ENCOUNTER 2024-10-11 09:17 | Outpatient (RCR) | payer SELFPAY ==
[2024-09-16 00:37] VITALS: BP 130/68; PULSE 72
[2024-09-20 09:02] VITALS: BP 139/83; PULSE 73
[2024-09-22 09:18] VITALS: BP 151/84; PULSE 76
[2024-09-27 08:55] VITALS: BP 153/80; PULSE 76
[2024-10-04 09:37] VITALS: BP 147/84; PULSE 73
[2024-10-06 08:58] VITALS: BP 157/84; PULSE 79; O2SAT 94
[2024-10-11 09:19] VITALS: BP 150/79; PULSE 79
== END 2024-10-15 23:59 | disposition home or self-care (01) ==
LOC: CR 09:17
PROVIDERS: PCP Family Medicine; Visit Provider Internal Medicine Cardiovascular Disease
DX: R69 Illness, unspecified (principal)

== ENCOUNTER 2024-11-10 08:50 | Outpatient (RCR) | payer SELFPAY ==
[2024-10-16 00:31] VITALS: BP 130/68; PULSE 72
[2024-10-18 09:31] VITALS: BP 144/76; PULSE 83
[2024-10-20 08:43] VITALS: BP 161/84; PULSE 77
[2024-10-25 09:30] VITALS: BP 159/86; PULSE 86
[2024-10-27 12:31] VITALS: BP 159/81; PULSE 74
[2024-11-01 08:52] VITALS: BP 149/81; PULSE 75
[2024-11-03 09:03] VITALS: BP 170/89; PULSE 77
[2024-11-03 09:41] VITALS: BP 153/84
[2024-11-10 08:52] VITALS: BP 162/84; PULSE 73; O2SAT 95
== END 2024-11-15 23:59 | disposition home or self-care (01) ==
LOC: CR 08:50
PROVIDERS: PCP Family Medicine; Visit Provider Internal Medicine Cardiovascular Disease
DX: R69 Illness, unspecified (principal)

== ENCOUNTER 2024-12-15 08:58 | Outpatient (RCR) | payer SELFPAY ==
[2024-11-16 00:13] VITALS: BP 130/68; PULSE 72
[2024-11-22 09:00] VITALS: BP 163/85; PULSE 73
[2024-11-29 09:14] VITALS: BP 149/86; PULSE 76
[2024-12-06 09:40] VITALS: BP 159/84; PULSE 74
[2024-12-08 08:57] VITALS: BP 145/81; PULSE 75
[2024-12-13 09:13] VITALS: BP 157/85; PULSE 77
[2024-12-15 09:08] VITALS: BP 143/82; PULSE 78; O2SAT 95
== END 2024-12-16 23:59 | disposition home or self-care (01) ==
LOC: CR 08:58
PROVIDERS: PCP Family Medicine; Visit Provider Internal Medicine Cardiovascular Disease
DX: R69 Illness, unspecified (principal)

== ENCOUNTER 2025-01-12 09:15 | Outpatient (RCR) | payer SELFPAY ==
[2024-12-20 09:21] VITALS: BP 172/95; PULSE 88
[2024-12-27 09:23] VITALS: BP 152/84; PULSE 77
[2024-12-29 09:07] VITALS: BP 145/81; PULSE 78; O2SAT 95
[2025-01-03 09:20] VITALS: BP 146/73; PULSE 73
[2025-01-05 09:00] VITALS: BP 148/86; PULSE 76
[2025-01-10 09:41] VITALS: BP 137/72; PULSE 78
[2025-01-12 09:19] VITALS: BP 134/68; PULSE 88
== END 2025-01-13 23:59 | disposition home or self-care (01) ==
LOC: CR 09:15
PROVIDERS: PCP Family Medicine; Visit Provider Internal Medicine Cardiovascular Disease
DX: R69 Illness, unspecified (principal)

== ENCOUNTER 2025-02-09 08:59 | Outpatient (RCR) | payer SELFPAY ==
[2025-01-14 00:10] VITALS: BP 134/68; PULSE 88
[2025-01-17 09:09] VITALS: BP 142/76; PULSE 80
[2025-01-19 09:19] VITALS: BP 143/77; PULSE 77
[2025-01-24 09:34] VITALS: BP 143/79; PULSE 74
[2025-01-26 09:02] VITALS: BP 148/78; PULSE 73; O2SAT 94
[2025-02-02 09:17] VITALS: BP 150/80; PULSE 76
[2025-02-07 09:03] VITALS: BP 150/75; PULSE 79
[2025-02-09 09:12] VITALS: BP 116/50; PULSE 78; O2SAT 95
== END 2025-02-13 23:59 | disposition home or self-care (01) ==
LOC: CR 08:59
PROVIDERS: PCP Family Medicine; Visit Provider Internal Medicine Cardiovascular Disease
DX: R69 Illness, unspecified (principal)

== ENCOUNTER 2025-03-14 09:06 | Outpatient (RCR) | payer SELFPAY ==
[2025-02-14 00:05] VITALS: BP 134/68; PULSE 88
[2025-02-14 09:34] VITALS: BP 140/75; PULSE 77
[2025-02-16 09:04] VITALS: BP 163/88; PULSE 85; O2SAT 97
[2025-02-21 09:01] VITALS: BP 151/77; PULSE 70
[2025-02-23 08:51] VITALS: BP 151/81; PULSE 74; O2SAT 94
[2025-02-28 09:41] VITALS: BP 143/74; PULSE 70
[2025-03-02 09:39] VITALS: BP 156/73; PULSE 74
[2025-03-07 09:12] VITALS: BP 144/77; PULSE 77
[2025-03-09 09:09] VITALS: BP 154/85; PULSE 84
[2025-03-14 09:10] VITALS: BP 147/75; PULSE 78
== END 2025-03-15 23:59 | disposition home or self-care (01) ==
LOC: CR 09:06
PROVIDERS: PCP Family Medicine; Visit Provider Internal Medicine Cardiovascular Disease
DX: R69 Illness, unspecified (principal)

== ENCOUNTER 2025-04-13 09:25 | Outpatient (RCR) | payer SELFPAY ==
[2025-03-16 00:16] VITALS: BP 134/68; PULSE 88
[2025-03-16 09:12] VITALS: BP 150/81; PULSE 90
[2025-03-21 09:32] VITALS: BP 148/78; PULSE 77
[2025-03-23 10:20] VITALS: BP 159/88; PULSE 77
[2025-03-28 09:44] VITALS: BP 148/78; PULSE 78
[2025-03-30 09:16] VITALS: BP 154/75; PULSE 76
[2025-04-04 10:16] VITALS: BP 143/72; PULSE 75
[2025-04-06 09:20] VITALS: BP 144/74; PULSE 75
[2025-04-11 09:06] VITALS: BP 153/82; PULSE 71
[2025-04-13 09:31] VITALS: BP 151/74; PULSE 79
== END 2025-04-15 23:59 | disposition home or self-care (01) ==
LOC: CR 09:25
PROVIDERS: PCP Family Medicine; Visit Provider Internal Medicine Cardiovascular Disease
DX: R69 Illness, unspecified (principal)

== ENCOUNTER 2025-05-11 09:00 | Outpatient (RCR) | payer SELFPAY ==
[2025-04-16 00:09] VITALS: BP 134/68; PULSE 88
[2025-04-18 09:16] VITALS: BP 154/79; PULSE 81
[2025-04-25 09:20] VITALS: BP 159/82; PULSE 81
[2025-04-27 09:37] VITALS: BP 150/79; PULSE 71
[2025-05-02 10:08] VITALS: BP 152/80; PULSE 76
[2025-05-04 10:40] VITALS: BP 142/75; PULSE 83
[2025-05-09 09:16] VITALS: BP 134/72; PULSE 80
[2025-05-11 09:00] VITALS: BP 146/69; PULSE 74
== END 2025-05-15 23:59 | disposition home or self-care (01) ==
LOC: CR 09:00
PROVIDERS: PCP Family Medicine; Visit Provider Internal Medicine Cardiovascular Disease
DX: R69 Illness, unspecified (principal)

== ENCOUNTER 2025-06-15 09:00 | Outpatient (RCR) | payer SELFPAY ==
[2025-05-16 00:19] VITALS: BP 146/69; PULSE 74
[2025-05-16 09:27] VITALS: BP 148/72; PULSE 71
[2025-05-18 09:07] VITALS: BP 153/80; PULSE 75; O2SAT 94
[2025-05-23 09:29] VITALS: BP 146/83; PULSE 92
[2025-05-25 09:10] VITALS: BP 142/69; PULSE 74
[2025-06-06 09:13] VITALS: BP 167/79; PULSE 72
[2025-06-08 09:16] VITALS: BP 140/79; PULSE 76
[2025-06-13 09:20] VITALS: BP 142/77; PULSE 81
[2025-06-15 09:20] VITALS: BP 152/76; PULSE 79
== END 2025-06-15 23:59 | disposition home or self-care (01) ==
LOC: CR 09:00
PROVIDERS: PCP Family Medicine; Visit Provider Internal Medicine Cardiovascular Disease
DX: R69 Illness, unspecified (principal)

== ENCOUNTER 2025-06-22 09:00 | Outpatient (RCR) | payer SELFPAY ==
[2025-06-16 00:21] VITALS: BP 152/76; PULSE 79
[2025-06-20 09:11] VITALS: BP 163/80; PULSE 76
[2025-06-22 09:43] VITALS: BP 153/77; PULSE 75
== END 2025-07-16 23:59 | disposition home or self-care (01) ==
LOC: CR 09:00
PROVIDERS: PCP Family Medicine; Visit Provider Internal Medicine Cardiovascular Disease
DX: R69 Illness, unspecified (principal)

== ENCOUNTER 2025-08-11 09:00 | Outpatient (RCR) | payer MEDICARE, BC, SELFPAY | END 2025-08-15 23:59 | disposition home or self-care (01) | LOC: CR 09:00 | PROVIDERS: PCP Family Medicine; Visit Provider Internal Medicine Cardiovascular Disease | DX: I25.10 Atherosclerotic heart disease of native coronary artery without angina pectoris (principal); Z95.1 Presence of aortocoronary bypass graft; Z51.89 Encounter for other specified aftercare | CPT/HCPCS: S9472 ==

== ENCOUNTER 2025-09-14 09:00 | Outpatient (RCR) | payer SELFPAY ==
[2025-08-16 00:24] VITALS: BP 129/87; PULSE 71
[2025-08-17 10:12] VITALS: BP 148/71; PULSE 65
[2025-08-22 09:11] VITALS: BP 133/76; PULSE 78
[2025-08-29 09:28] VITALS: BP 138/72; PULSE 73
[2025-08-31 09:03] VITALS: BP 155/76; PULSE 68
[2025-09-05 09:11] VITALS: BP 135/70; PULSE 71
[2025-09-07 09:14] VITALS: BP 138/67; PULSE 76
[2025-09-12 09:22] VITALS: BP 160/75; PULSE 78
[2025-09-14 09:09] VITALS: BP 160/74; PULSE 78; O2SAT 94
== END 2025-09-15 23:59 | disposition home or self-care (01) ==
LOC: CR 09:00
PROVIDERS: PCP Family Medicine; Visit Provider Internal Medicine Cardiovascular Disease
DX: R69 Illness, unspecified (principal)

== ENCOUNTER 2025-10-10 09:00 | Outpatient (RCR) | payer SELFPAY ==
[2025-09-16 00:25] VITALS: BP 160/74; PULSE 78
[2025-09-19 09:18] VITALS: BP 152/75; PULSE 77
[2025-09-21 09:37] VITALS: BP 123/66; PULSE 70
[2025-09-26 09:12] VITALS: BP 141/67; PULSE 73
[2025-09-28 09:16] VITALS: BP 135/74; PULSE 74
[2025-10-03 09:17] VITALS: BP 130/72; PULSE 70
[2025-10-05 09:30] VITALS: BP 131/67; PULSE 72
[2025-10-10 09:36] VITALS: BP 143/69; PULSE 71
== END 2025-10-15 23:59 | disposition home or self-care (01) ==
LOC: CR 09:00
PROVIDERS: PCP Family Medicine; Visit Provider Internal Medicine Cardiovascular Disease
DX: R69 Illness, unspecified (principal)

== ENCOUNTER 2025-11-14 09:00 | Outpatient (RCR) | payer SELFPAY ==
[2025-10-16 00:11] VITALS: BP 143/69; PULSE 71
[2025-10-17 10:25] VITALS: BP 154/89; PULSE 89
[2025-10-19 09:36] VITALS: BP 155/76; PULSE 79; O2SAT 96
[2025-10-24 09:29] VITALS: BP 160/76; PULSE 78
[2025-10-26 09:13] VITALS: BP 169/83; PULSE 60
[2025-10-31 09:06] VITALS: BP 141/71; PULSE 73
[2025-11-02 09:25] VITALS: BP 140/69; PULSE 73
[2025-11-07 09:36] VITALS: BP 133/69; PULSE 73
[2025-11-14 09:36] VITALS: BP 153/7; PULSE 78
== END 2025-11-15 23:59 | disposition home or self-care (01) ==
LOC: CR 09:00
PROVIDERS: PCP Family Medicine; Visit Provider Internal Medicine Cardiovascular Disease
DX: R69 Illness, unspecified (principal)